=== PATIENT | female | born 1965 | race Caucasian/White ===

== ENCOUNTER 2021-02-25 22:45 | Emergency (ER) | payer MEDICARE, MEDICAID, SELFPAY ==
[2021-02-25 22:49] VITALS: BP 127/77; PULSE 110; RESP 18; TEMP 36.7; O2SAT 99
--- NOTE | 2021-02-25 22:57 | SUR.PHASEI ---
pt arrived c/o left leg pain focused in calf. pt denies injury homans sign negative
--- NOTE | 2021-02-25 23:16 | W.ED.GENAD ---
Discharge Plan Disposition Patient Disposition: HOME Condition: Stable Discharge Details Clinical Impression: Pain of left calf Primary Care Provider: Zoraida Ordoñez V ED Provider: Juan David Del Castillo Home Meds and New Rx's Prescriptions: New cyclobenzaprine 10 mg tablet 10 mg PO TID PRNQty: 20 RF: 0 Discharge Instructions Instructions: Muscle Cramp (ED) Additional Instructions: you should be called for an ultrasound on Sunday if pain continues in a week see your primary care provider if you feel more ill, have severe worsening pain or fevers return to the emergency department Medical Decision Making 56 yo female comes in with complaint of left calf pain for a week. She states it started after she had been laying down for longer than she normally does. She states she has not had any trauma or falls, no recent surgeries or travel. No dyspnea or chest pain. She arrives in no distress. She states she feels the calf is more swollen but visibly no difference. She has full range of motion of the leg atnall joints with normal sensation and pulses. She has tenderness with palpation to the mid calf and muscles feel soft. I performed a bedside u/s as we do not have radiology u/s until Sunday and do not see visible dvt on exam and when I apply pressure to the calf has good doppler flow through the popliteal vein so doubt dvt but will have her return Sunday to have formal u/s. Given lack of trauma and walking without a limp doubt fracture and do not feel xrays indicated. Normal range of motion of the ankle so doubt achilles tendon injury. HAs no findings to suggest compartment syndrome. No erythema and no warmth and no evidence to suggest cellulitis such as cobblestoning on u/s. I suspect a muscle strain and will start her on flexeril. Advised to f/u with pcp if u/s on Sunday is negative and return precautions given. Differential Diagnosis Differential Diagnosis: dvt, spasm, strain HPI General Mode of arrival: ambulatory. Date/Time Provider Initiated Documentation: 02/25/21 22:58. Limitations to Documentation: no limitations. Information obtained by: patient. History of Present Illness 56 year old F presents to the emergency department with the chief complaint of left calf pain, described as moderate, Quality is described as aching, Patient reports no radiation. Patient started experiencing this week(s) (1) and it has been constant. No relieving factors improve symptom(s), No exacerbating factors reported . Patient notes no other symptoms.. Patient did receive the following treatments prior to arrival, none Related Data Home Medications Medication Instructions Recorded Confirmed cyclobenzaprine 10 mg PO TID PRN #20 tab 02/25/21 Previous Rx's Medication Instructions Recorded cyclobenzaprine 10 mg PO TID PRN #20 tab 02/25/21 General Stated Complaint: GenMedical SIDNEY: 3 Review of Systems All systems reviewed & are unremarkable except as noted in HPI and below Constitutional Constitutional: Denies chills, Denies fever(s) and Denies weakness Cardiovascular Cardiovascular: Denies chest pain and Denies dyspnea Respiratory Respiratory: Denies cough and Denies dyspnea Gastrointestinal Gastrointestinal: Denies abdominal pain, Denies nausea and Denies vomiting Musculoskeletal Musculoskeletal: Denies joint swelling Neurologic Neurologic: Denies weakness Psychiatric Psychiatric: Denies depression [facility] Active Problem List (Updated 02/25/21 @ 23:23 by Juan David Del Castillo MD) Pain of left calf (Acute) Social History Smoking/Tobacco Use Status: Current every day Tobacco Type: cigarettes Smoking risk assessment performed?: Yes Alcohol Intake: never Substance use type: does not use Do you feel safe at home: Yes Do you feel safe in your relationship?: Yes Exam Const General: no acute distress Orientation: alert HENMT Head: normal to inspection Ears: external ears normal General nose exam: external nose normal Mouth: moist mucous membranes Eyes General: appearance normal, both eyes and all related structures Neck Neck: normal visual inspection Resp Effort & Inspection: normal respiratory effort and able to speak in complete sentences Cardio Rate: regular rate Skin General skin exam: no rashes or lesions noted Neuro General: patient alert and patient oriented x3 Extrem General: normal to inspection Psych Mental Status: mental status grossly normal Course Vital Signs Vital signs: Vital Signs Temperature 36.7 C 02/25/21 22:49 Pulse 110 H 02/25/21 22:49 Respiratory Rate 18 02/25/21 22:49 Blood Pressure 127/77 02/25/21 22:49 Pulse Oximetry 99 02/25/21 22:49 Temperature 36.7 C 02/25/21 22:49 Temperature Source Tympanic 02/25/21 22:49 Pulse 110 H 02/25/21 22:49 Respiratory Rate 18 02/25/21 22:49 Respiratory Effort 02/25/21 22:55 Blood Pressure 127/77 02/25/21 22:49 Blood Pressure Position Supine 02/25/21 22:49 Pulse Oximetry 99 02/25/21 22:49 Oxygen Delivery Method Room Air 02/25/21 22:49 Oxygen Flow Rate 0 02/25/21 22:49 Pain Level 4 02/25/21 22:49
[2021-02-25] MEDS: Cyclobenzaprine 10 MG TAB PO (23:19)
--- NOTE | 2021-02-25 23:32 | NUR.NOTE ---
Ultra sound req faxed to [facility], provider wants her to have lower extremity US on 02/28/21, or as soon as possible.Nursing Note:
== END 2021-02-25 23:29 | disposition home or self-care (01) ==
PROVIDERS: Emergency Provider Emergency Medicine; PCP Family Medicine
DX: M79.662 Pain in left lower leg (principal)
CPT/HCPCS: 99283

== ENCOUNTER 2021-03-24 01:35 | Outpatient (CLI) | payer MEDICARE, MEDICAID, SELFPAY ==
--- NOTE | 2021-03-24 | DI.US_ITS ---
Exam(s) US LOWER EXTREMITY VENOUS LT EXAM: US LOWER EXTREMITY VENOUS LT CLINICAL HISTORY: LEFT CALF PAIN, M79.662 TECHNIQUE: Grayscale, color, and doppler imaging of the deep venous system of the left lower extremi ty was performed. COMPARISON: US ABDOMEN ULTRASOUND (P) from 12/19/2011 FINDINGS: There is no evidence of intraluminal thrombus and there is normal compression and augmentation demons trated within the common femoral vein, femoral vein, and popliteal vein. In the ipsilateral calf the interrogated veins also exhibit normal compression/ augmentation properti es. The ipsilateral saphenofemoral junction is patent. IMPRESSION: 1. No evidence of DVT in the left lower extremity. DATA REPOSITORY:
== END 2021-03-24 01:55 ==
PROVIDERS: PCP Family Medicine; Visit Provider Emergency Medicine
DX: M79.662 Pain in left lower leg (principal)
CPT/HCPCS: 93971

== ENCOUNTER 2021-03-24 14:43 | Emergency (ER) | payer MEDICARE, MEDICAID, SELFPAY ==
[2021-03-24 14:50] VITALS: BP 117/67; PULSE 99; RESP 18; TEMP 35.9; O2SAT 94
--- NOTE | 2021-03-24 15:08 | ED.GENADUL_ITS ---
Discharge Plan Disposition Patient Disposition: HOME Condition: Stable Discharge Details Clinical Impression: Encounter to discuss test results Primary Care Provider: Zoraida Ordoñez V ED Provider: Rebeka Cifuentes Home Meds and New Rx's Prescriptions: Continued sumatriptan succinate 50 mg Tablet 50 mg PO PRN PRNRF: 0 Flovent HFA 44 mcg/actuation Hfa Aerosol Inhaler 2 puff INHALATION BID RF: 0 gabapentin 300 mg Capsule 1,800 mg PO BID RF: 0 omeprazole 20 mg Capsule,Delayed Release(Dr/Ec) 20 mg PO DAILY RF: 0 albuterol 90 mcg/actuation Aerosol 90 mcg INHALATION Q6H PRN PRNRF: 0 cyclobenzaprine 10 mg tablet 10 mg PO TID PRNQty: 20 RF: 0 Discharge Instructions Instructions: Leg Pain (ED) Additional Instructions: At this time the ultrasound was negative for blood clot. Please discuss lab work with your primary care provider to rule out electrolyte abnormality as a cause for the charley horses that you are experiencing. This could also be due to your previous back surgery and neuropathy. Follow up with primary care provider in 3-5 days. Return to ED sooner if any worsening or concerns. Increase oral fluids. Referrals: Zoraida Ordoñez MD [Primary Care Provider] - 5 days Medical Decision Making 56-year-old female presents to the ER for ultrasound results. Patient had a Doppler of her left lower extremity today for some neuropathy and left calf pain which has worsened over the last couple weeks. She reports she had back surgery and has been getting frequent charley horses. She is in between PCPs at this time. I did offer blood work to rule out electrolyte abnormality which patient claimed at this time. Discussed negative results with patient who verbalizes understanding. FINDINGS: There is no evidence of intraluminal thrombus and there is normal compression and augmentation demonstrated within the common femoral vein, femoral vein, and popliteal vein. In the ipsilateral calf the interrogated veins also exhibit normal compression/ augmentation properties. The ipsilateral saphenofemoral junction is patent. IMPRESSION: 1. No evidence of DVT in the left lower extremity. Discussed results with patient who verbalized understanding. HPI General Mode of arrival: ambulatory . Date/Time Provider Initiated Documentation: 03/24/21 14:49 . Limitations to Documentation: no limitations . Information obtained by: patient and old records reviewed . HPI Narrative: 56-year-old female presents to the ER for ultrasound results. Patient had a Doppler of her left lower extremity today for some neuropathy and left calf pain which has worsened over the last couple weeks. She reports she had back surgery and has been getting frequent charley horses. She is in between PCPs at this time. I did offer blood work to rule out electrolyte abnormality which patient claimed at this time. Discussed negative results with patient who verbalizes understanding. Related Data Home Medications Medication Instructions Recorded Confirmed cyclobenzaprine 10 mg PO TID PRN #20 tab 02/25/21 03/24/21 Flovent HFA 2 puff INHALATION BID 03/24/21 03/24/21 albuterol 90 mcg INHALATION Q6H PRN PRN 03/24/21 03/24/21 gabapentin 1,800 mg PO BID 03/24/21 03/24/21 omeprazole 20 mg PO DAILY 03/24/21 03/24/21 sumatriptan succinate 50 mg PO PRN PRN 03/24/21 03/24/21 Previous Rx's Medication Instructions Recorded cyclobenzaprine 10 mg PO TID PRN #20 tab 02/25/21 Allergies Allergy/AdvReac Type Severity Reaction Status Date / Time duloxetine [From Cymbalta] Allergy Skin Rash Unverified 03/24/21 14:59 Influenza Virus Vaccines Allergy Swelling/Ed Unverified 03/24/21 14:59 tashi metoprolol Allergy Itching Unverified 03/24/21 14:59 Penicillins Allergy Swelling/Ed Unverified 03/24/21 14:59 tashi phenytoin [From Dilantin] Allergy Hives Unverified 03/24/21 14:59 NSAIDS (Non-Steroidal AdvReac gi bleed Unverified 03/24/21 14:59 Anti-Inflamma General Stated Complaint: Recheck SIDNEY: 5 Review of Systems Musculoskeletal Musculoskeletal: Reports as per HPI PFSH All Active Problems (Updated 03/24/21 @ 15:11 by Rebeka Cifuentes) Pain of left calf (Acute) Encounter to discuss test results (Acute) Social History Smoking/Tobacco Use Status: Current every day Tobacco Type: cigarettes Smoking risk assessment performed?: Yes Alcohol Intake: never Substance use type: does not use Do you feel safe at home: Yes Do you feel safe in your relationship?: Yes Exam Const General: cooperative, healthy appearing and comfortable Nutritional Appearance: average body habitus Orientation: alert, awake and oriented x3 Course Vital Signs Vital signs: Vital Signs Temperature 35.9 C L 03/24/21 14:50 Pulse 99 H 03/24/21 14:50 Respiratory Rate 18 03/24/21 14:50 Blood Pressure 117/67 03/24/21 14:50 Pulse Oximetry 94 03/24/21 14:50 Temperature 35.9 C L 03/24/21 14:50 Temperature Source Temporal Artery Scan 03/24/21 14:50 Pulse 99 H 03/24/21 14:50 Respiratory Rate 18 03/24/21 14:50 Respiratory Effort Non-Labored 03/24/21 14:53 Blood Pressure 117/67 03/24/21 14:50 Blood Pressure Position Sitting 03/24/21 14:50 Pulse Oximetry 94 03/24/21 14:50 Pain Level 4 03/24/21 14:50
== END 2021-03-24 15:15 | disposition home or self-care (01) ==
PROVIDERS: Emergency Provider Registered Nurse Emergency; PCP Family Medicine
DX: M79.662 Pain in left lower leg (principal)

== ENCOUNTER 2021-07-28 01:26 | Outpatient (CLI) | payer OTHER, MEDICAID, SELFPAY ==
--- NOTE | 2021-07-28 | DI.MAMMO_ITS ---
Exam(s) MAMMO SCREENING EXAM: MAMMO SCREENING CLINICAL HISTORY: SCREENING FOR BREAST CANCER Z12.39. TECHNIQUE: Bilateral full field digital CC and MLO mammographic images were obtained with 3D tomosyn thesis and utilizing computer aided detection (CAD). COMPARISON: No prior mammograms available time of this interpretation. Apparently this patient's mo ther was diagnosed with breast cancer at age 36. FINDINGS: Fibroglandular tissue is predominately fatty (breast density pattern type A) There are no significant focal findings in the right breast. In the left breast there is a well-defined noncalcified nodule measuring 6 x 4 millimeters located 10 cm in from the nipple on the MLO view and 11 cm in from the nipple on CC view. This is possibly a b enign intramammary lymph node. There are no malignant-appearing microcalcification groups in this region nor in either breast. There is no significant architectural distortion nor skin thickening-retraction. IMPRESSION: 1. No radiographic evidence of malignancy in the right breast. 2. 6 x 4 millimeter well-defined noncalcified nodule in the upper outer quadrant of the left breast, possibly benign lymph node. Comparison to any prior outside mammograms would helpful, if they exist. Not then recommend ultrasound. BI-RADS Category 0 - Assessment Incomplete: Need additional imaging evaluation Breast Density - Category A - Almost entirely fatty Breast density Category C or D implies that the patient has dense breast tissue. Dense breast tissue can make it harder to find cancer on a mammogram. Dense breast tissue is also associated with an incr eased risk of breast cancer. This information about the result of the mammogram report was provided to the patient to raise their awareness. Use this report when you speak with the patient about their risks for breast cancer, which includes their family history. At that time, you may recommend additional screening tests (Ultrasoun d or MRI) as these tests may add significant information. A negative radiographic report should not delay biopsy if a dominant or clinically suspicious mass is present. Up to ten percent of cancers are not identified on mammography. A negative report may reinforce clinical impression. Adenosis and dense breasts may obscure an underlying neoplasm. False positive reports average 6 to 10%. Patient will receive a letter notifying them of these results.
== END 2021-07-28 01:46 ==
PROVIDERS: PCP Family Medicine; Visit Provider Nurse Practitioner Family
DX: Z12.31 Encounter for screening mammogram for malignant neoplasm of breast (principal); R92.8 Other abnormal and inconclusive findings on diagnostic imaging of breast; Z80.3 Family history of malignant neoplasm of breast
CPT/HCPCS: 77063; 77067

== ENCOUNTER → 2021-07-29 07:59 | Outpatient (BNVA) | payer OTHER, MEDICAID, SELFPAY | PROVIDERS: PCP Family Medicine; Referring Provider Nurse Practitioner Family; Visit Provider Student in an Organized Health Care Education/Training Program | DX: M70.61 Trochanteric bursitis, right hip (principal); M70.62 Trochanteric bursitis, left hip; M25.551 Pain in right hip; M54.50 Low back pain, unspecified; G89.29 Other chronic pain | CPT/HCPCS: 99214 ==

== ENCOUNTER → 2021-08-22 02:22 | Outpatient (CLI) | payer OTHER, MEDICAID, SELFPAY ==
--- NOTE | 2021-08-22 06:45 | DI.MRI_ITS ---
Exam(s) MR LOWER JOINT RT WO EXAM: MR LOWER JOINT RT WO CLINICAL HISTORY: rt hip pain,m25.551 TECHNIQUE: Multiplanar multisequence MRI of Pelvis was performed COMPARISON: MR MRI - PELVIS WO CONTRAST from 06/09/2010 MR MR LS SPINE W/WO CONTRAST from 01/25/2021 FINDINGS: Bones: There is no fracture or contusion pattern. No significant joint effusion or labral injury is present. No bone marrow edema is seen. The visualized portions of the SI joints and symphysis pubis a re well maintained. Musculotendinous structures: There is mild hyperintense signal seen in the region of the gluteus med ius tendon adjacent to the greater trochanter consistent with a strain. No associated focal fluid co llection is seen. There is a 3.3 x 3.0 cm uterine fibroid present. IMPRESSION: Right gluteus medius tendon strain. DATA REPOSITORY:
== END ==
PROVIDERS: PCP Family Medicine; Visit Provider Student in an Organized Health Care Education/Training Program
DX: S76.011A Strain of muscle, fascia and tendon of right hip, initial encounter (principal); X58.XXXA Exposure to other specified factors, initial encounter
CPT/HCPCS: 73721

== ENCOUNTER 2021-08-29 07:59 | Outpatient (REF) | payer OTHER, MEDICAID, SELFPAY ==
[2021-08-29 16:23] LABS: HCT 44.5 % (36.0-46.0); HGB 14.5 g/dL (11.2-15.7); MCH 32.2 pg (27.0-33.0); MCHC 32.6 % (32.0-36.0); MCV 99 fL (80-95); MPV 9.1 fL (8.0-11.0); Platelet Count 318 10^3/uL (130-400); RBC 4.51 10^6/uL (3.93-5.22); RDW 12.3 % (11.7-14.6); RDW-SD 44.9 fL; WBC 6.27 10^3/uL (4.4-10.8)
[2021-08-29 17:26] LABS: ALT 23 U/L (14-59); AST 13 U/L (15-37); Albumin 4.2 g/dL (3.4-5.0); Alkaline Phosphatase 79 U/L (46-116); Anion Gap 9.7 mmol/L (3-11); BUN 12 mg/dL (7-18); Bilirubin, Total 0.5 mg/dL (0.2-1.0); CO2 28.3 mmol/L (21.0-32.0); CREATININE 0.8 mg/dL (0.55-1.02); Calcium 9.1 mg/dL (8.5-10.1); Calculated LDL 204 mg/dL (<100); Chloride 104 mmol/L (98-107); Cholesterol 311 mg/dL (<200); Glucose 110 mg/dL (74-106); HDL Cholesterol 46 mg/dL (40-60); Sodium 142 mmol/L (136-145); Total Protein 7.4 g/dL (6.4-8.2); Triglyceride 308 mg/dL (<150)
== END 2021-08-29 08:00 | disposition home or self-care (01) ==
LOC: NCHCN 07:59
PROVIDERS: Nurse Practitioner Family; PCP Family Medicine; Visit Provider Internal Medicine Infectious Disease
DX: Z13.220 Encounter for screening for lipoid disorders (principal); Z00.00 Encounter for general adult medical examination without abnormal findings
CPT/HCPCS: 80053; 80061; 85027

== ENCOUNTER 2021-09-27 10:33 | Outpatient (REF) | payer OTHER, MEDICAID, SELFPAY ==
--- NOTE | 2021-09-27 09:50 | PAPFT_PTH ---
PATIENT: Aydee Johns LOC: [facility]#:[id number] AGE/SX: 56/F ROOM: RE09/27/[address]: Glenys Hernandez : 1965 BED: DIS: 09/27/2021 SPEC #: [id number] RECD: 09/27/21 17:25 STATUS: BACILIO MENDEZ #: [id number] LUISA: 09/27/21 09:[address]: Glenys Hernnadez DEPT: [facility] Cytology RECD BY: Jazlyn Paris ENTERED: 09/27/21 17:26 SP TYPE: PAPFT OTHR DR: Zoraida Ordoñez V Tissues: 1 - CX/ENDOCX FOR PAP SMEARS Procedures: PAP THIN PREP/UVM Screening HPV DNA PROBE Comments: [id number]
== END 2021-09-27 10:34 | disposition home or self-care (01) ==
LOC: NCHCN 10:33
PROVIDERS: PCP Family Medicine; Visit Provider Nurse Practitioner Family
DX: Z12.4 Encounter for screening for malignant neoplasm of cervix (principal); Z11.51 Encounter for screening for human papillomavirus (HPV)
CPT/HCPCS: 88142; 87624

== ENCOUNTER → 2021-10-07 00:40 | Outpatient (CLI) | payer OTHER, MEDICAID, SELFPAY ==
--- NOTE | 2021-10-07 13:20 | DI.CTLCSR_ITS ---
Exam(s) CT CHEST LUNG CANCER SCREEN EXAM: CT CHEST LUNG CANCER SCREEN CLINICAL HISTORY: SCREENING FOR LUNG CA, SMOKER, F17.210. TECHNIQUE: Imaging Protocol: Low Dose Technique CONTRAST MATERIAL: None COMPARISON: CT CHEST WITH CONTRAST from 12/27/2011 FINDINGS: CHEST: LUNGS: There are no ominous pulmonary nodules. There are no confluent infiltrates. No pleural effusi ons. MEDIASTINUM: There is no obvious hilar nor mediastinal adenopathy. CARDIAC: Heart size is normal. There is no pericardial effusion.Caliber of the thoracic aorta is wit hin normal limits. OTHER: Gallbladder is noted to be surgically absent OSSEOUS: No significant osseous lesions.. IMPRESSION: 1. No significant pulmonary nodules. No pleural effusions 2. No significant intrathoracic adenopathy 3. Lung RADS Cat 1 - Negative: No nodules and definitely benign nodules Lung-RADS 1.0 CATEGORIES: Category 0 - Prior chest CT exam(s) being located for comparison. Category 1 - Annual screening in 12 months. No nodules or definitely benign nodules. Category 2 - Annual screening in 12 months. Benign appearance. Nodules with low likelihood of becomin g active cancer. Category 3 - 6-month follow-up. Probably benign. Short-term follow-up suggested. Nodules with low lik elihood of becoming active cancer. Category 4A - 3-month follow-up and CT/PET if >8 mm in size. Suspicious finding. Findings which requi re additional testing. Category 4B - Findings which require additional testing and tissue sampling. Category 4X - Category 3 or 4 nodules with additional features or imaging findings that increases the suspicion of malignancy. Modifier S- Potentially clinically significant findings (non lung cancer) RADIATION DOSE DELIVERED: 92.76mGy.cm Total DLP 2.21mGy CTDIvol DATA REPOSITORY: All CT scans at this facility are submitted to the National Radiology Data Registry (NRDR) Dose Index Registry (DIR) with the [employer] ([employer]). RADIATION OPTIMIZATION: All CT scans at this facility use at least one of these dose optimization te chniques: automated exposure control; mA and/or kV adjustment per patient size (includes targeted exa ms where dose is matched to clinical indication); or iterative reconstruction.
== END ==
PROVIDERS: PCP Family Medicine; Visit Provider Nurse Practitioner Family
DX: Z12.2 Encounter for screening for malignant neoplasm of respiratory organs (principal); F17.210 Nicotine dependence, cigarettes, uncomplicated
CPT/HCPCS: 71271

== ENCOUNTER 2021-12-22 16:09 | Outpatient (CLI) | payer OTHER, MEDICAID, SELFPAY ==
[2021-12-22 12:47] LABS: Hemoglobin A1C 5.9 % (<5.7)
[2021-12-22 13:25] LABS: Ferritin 120 ng/mL (8-252); Folate 11.4 ng/mL (8.6-20.0); Glucose 103 mg/dL (74-106); TSH 0.93 uIU/mL (0.36-3.74); Vitamin B12 291 pg/mL (193-986)
[2021-12-22 13:44] LABS: Vitamin D 25 Total 19.1 ng/mL (30-100)
[2021-12-22 17:16] LABS: Iron 76 ug/dL (50-170); Total Iron Binding Capacity 291 ug/dL (250-450); Transferrin Sat 26 % (15-50)
[2021-12-23 09:46] LABS: Parathyroid Hormone,Intact 56 pg/mL (19-88)
[2021-12-26 09:46] LABS: Insulin 15.1 uIU/mL (<29.0)
[2021-12-27 20:55] LABS: Thiamine (Vitamin B1), WB 158 nmol/L (70-180)
== END 2021-12-22 16:10 | disposition home or self-care (01) ==
LOC: LBO 16:21
PROVIDERS: PCP Family Medicine; Visit Provider Surgery
DX: Z68.39 Body mass index [BMI] 39.0-39.9, adult (principal); E66.01 Morbid (severe) obesity due to excess calories
CPT/HCPCS: 36415; 82306; 82947; 82607; 82728; 82746; 83036; 83525; 83540; 83550; 83970; 84425; 84443

== ENCOUNTER 2022-03-29 10:03 | Outpatient (CLI) | payer OTHER, MEDICAID, SELFPAY ==
--- NOTE | 2022-03-29 06:00 | DI.RAD_ITS ---
Exam(s) XR PAIN CLINIC LUMBAR SP 2V EXAM: XR PAIN CLINIC LUMBAR SP 2V CLINICAL HISTORY: Dx: Lumbar Radiculopathy TECHNIQUE: 2D and realtime digital imaging was performed. Radiologist not present. CONTRAST MATERIAL: None. COMPARISON: No exams were available for comparison FINDINGS: Fluoroscopy was provided for pain management therapy. Please refer to procedure report or details. Cumulative dose: Ka,r=not given mGy IMPRESSION: RADIATION DOSE DELIVERED:
[2022-03-29 10:10] VITALS: BP 131/76; PULSE 85; RESP 20; TEMP 36.8; O2SAT 95
--- NOTE | 2022-03-29 11:02 | PDOC.PAIN ---
Date of service: 03/29/22 Time of Service: 11:05 Pain Clinic Procedure Note Procedure Note Procedure Note: CAUDAL EPIDURAL STEROID WITH CATHETER INJECTION PROCEDURE NOTE COMMENTS: She was previously evaluated in our clinic. She has has back surgery and this is why I am using the caudal approach Pre-procedure pain VAS was 8/10 Dx: Lumbosacral radiculopathy Aydee Johns has been referred to the [facility] for lumbar epidural steroid injection. Patient was greeted by the nurse who verified the patient?s name and .? Patient was then taken to the fluoroscopy suite. The patient was interviewed and the medical record was reviewed.? There were no medical, pharmacologic, radiographic, or other structural contraindications to attempting fluoroscopically guided caudal epidural steroid injection. Risks and expected side effects as well as potential benefits of the procedure were reviewed and voiced concerns addressed.? The patient consent form was signed.? Standard time-out procedure was performed. The patient was placed in the prone position on the fluoroscopy table and automated blood pressure cuff, pulse oximeter, and 3 lead EKG was applied.? The skin entry point for entering/approaching the sacral hiatus was marked.? Following thorough chlorhexadine preparation of the skin and draping and 1% lidocaine infiltration of the skin entry point and subcutaneous tissues, a 17 gauge Touhy needle was placed under fluoroscopic guidance through the sacral hiatus.? Needle tip placement and depth were aided and confirmed by fluoroscopy. There was no paresthesia or return of blood or CSF through the needle. A 19G Arrow spinal catheter was threaded to the L5 height and 1 cc's of Omnipaque 240 was injected with clear epidural spread confirmed with fluoroscopy.? Aspiration was performed with no resulting blood or clear fluid. One cc of depomedrol (80 mg/cc) was injected.? This was followed by 2 cc of 1% Lidocaine to flush the catheter.?There was not any unusual discomfort expressed.? The needle and catheter were removed together without difficulty. Vital signs were stable throughout the procedure and were as recorded in nursing records.? Follow up plans and appointments were discussed.? Post procedure instruction was given as documented in nursing records and having met discharge criteria and was discharged from the [facility]. This procedure can be completed up to 3 times per 12 months if it is helpful. Post-procedure pain VAS was 2/10. Andrea Méndez DO, MPH [facility]
[2022-03-29] MEDS: methylPREDNISolone ACETATE 80 MG/ML VIAL IJ (11:10)
[2022-03-29 11:11] VITALS: BP 127/72; PULSE 79; RESP 16; O2SAT 97
[2022-03-29] MEDS: Omnipaque 240 MG/ML 50 ML BTL IJ (11:11)
== END 2022-03-29 10:04 | disposition home or self-care (01) ==
LOC: PC 10:03
PROVIDERS: PCP Family Medicine; Visit Provider Preventive Medicine Occupational Medicine
DX: M54.17 Radiculopathy, lumbosacral region (principal); M54.50 Low back pain, unspecified
CPT/HCPCS: 62323; 72100; J1040; Q9967

== ENCOUNTER 2022-05-25 16:27 | Outpatient (REF) | payer OTHER, MEDICAID, SELFPAY ==
[2022-05-25 16:18] LABS: Anion Gap 9.9 mmol/L (3-11); BUN 12 mg/dL (7-18); CO2 27.1 mmol/L (21.0-32.0); CREATININE 0.7 mg/dL (0.55-1.02); Calcium 9.6 mg/dL (8.5-10.1); Calculated LDL 178 mg/dL (<100); Chloride 104 mmol/L (98-107); Cholesterol 256 mg/dL (<200); Estimated GFR 99.57 (mL/min/1.73m2); Glucose 106 mg/dL (74-106); HDL Cholesterol 46 mg/dL (40-60); Sodium 141 mmol/L (136-145); Triglyceride 162 mg/dL (<150)
== END 2022-05-25 16:28 | disposition home or self-care (01) ==
LOC: NCHCN 16:27
PROVIDERS: PCP Nurse Practitioner Family; Visit Provider Nurse Practitioner Family
DX: E78.5 Hyperlipidemia, unspecified (principal)
CPT/HCPCS: 80048; 80061

== ENCOUNTER 2022-08-14 15:07 | Outpatient (CLI) | payer OTHER, MEDICAID, SELFPAY ==
--- NOTE | 2022-08-14 14:45 | DI.RAD_ITS ---
Exam(s) XR WRIST LT COMPLETE EXAM: XR WRIST LT COMPLETE CLINICAL HISTORY: L wrist pain. TECHNIQUE: 2D digital imaging was performed. Three views. COMPARISON: No exams were available for comparison FINDINGS: BONES: No acute fracture is present. No bony destructive lesion is seen. JOINTS: The carpal bones are normally aligned. Minimal degenerative changes. SOFT TISSUE: Normal. IMPRESSION: Unremarkable radiographs of the left wrist. DATA REPOSITORY: RADIATION DOSE DELIVERED:
== END 2022-08-14 15:08 | disposition home or self-care (01) ==
LOC: DIORS 15:08
PROVIDERS: PCP Nurse Practitioner Family; Referring Provider Nurse Practitioner Family; Visit Provider Student in an Organized Health Care Education/Training Program
DX: M18.12 Unilateral primary osteoarthritis of first carpometacarpal joint, left hand
CPT/HCPCS: 99213; 73110

== ENCOUNTER 2022-09-18 02:19 | Outpatient (CLI) | payer OTHER, MEDICAID, SELFPAY ==
--- NOTE | 2022-09-18 | DI.MRI_ITS ---
Exam(s) MR THORACIC SPINE WO EXAM: MR THORACIC SPINE WO CLINICAL HISTORY: THORACIC BACK PAIN WORSENING, M54.9 TECHNIQUE: Multiplanar multisequence MRI of the thoracic spine was performed without intravenous con trast. COMPARISON: CT CT CHEST LUNG CANCER SCREEN from 10/07/2021 FINDINGS: OSSEOUS: There are no acute appearing thoracic vertebral fractures. There is a small benign intraosse ous hemangioma in the superior aspect of what is probably T4. There are no ominous osseous lesions in the thoracic vertebrae. THORACIC SPINAL CORD: There is no abnormal signal in the cervical spinal cord and no evidence of foca l cord atrophy nor focal cord swelling. There is no evidence of syringomyelia nor significant spinal cord dysraphism. There is no evidence of mass at the conus medullaris. The position of the conus me dullaris is at normal level. SIGNIFICANT INDIVIDUAL LEVEL FINDINGS: The upper aspect of the field of view there is a central-right disc herniation noted it C6-7 level. Can be further studied with dedicated MRI the cervical spine. There is a small posterolateral right disc protrusion at T5-6 level. Slightly indents the anterior r ight side of thecal sac but not the spinal cord. No evidence of other disc protrusions nor spinal ca nal stenosis. No significant foraminal stenosis. No abnormal collections. No significant facet art hropathy PARASPINAL TISSUES: No significant masses nor fluid collections evident. IMPRESSION: 1. There is a small posterolateral right disc protrusion at C5-6 level. 2. Larger posterolateral right disc protrusion evident at C6-7 level. Recommend follow-up MRI scan o f the cervical spine. 3. Benign intraosseous hemangioma noted in the superior aspect T4 vertebral body. No lytic osseous l esions identified. DATA REPOSITORY:
== END 2022-09-18 02:39 ==
LOC: DI 02:20
PROVIDERS: PCP Nurse Practitioner Family; Visit Provider Nurse Practitioner Family
DX: M50.123 Cervical disc disorder at C6-C7 level with radiculopathy (principal); D18.09 Hemangioma of other sites
CPT/HCPCS: 72146

== ENCOUNTER 2022-09-28 16:33 | Outpatient (REF) | payer OTHER, MEDICAID, SELFPAY ==
[2022-09-28 17:00] LABS: Abs Immature Grans 0.01 10^3/uL (0.0-0.06); Absolute Basophil Count 0.05 10^3/uL (0.0-0.2); Absolute Eosinophil Count 0.15 10^3/uL (0.0-0.7); Absolute Lymphocyte Count 2.21 10^3/uL (1.2-3.4); Absolute Monocyte Count 0.46 10^3/uL (0.1-0.8); Absolute Neutrophil Count 2.89 10^3/uL (1.2-6.7); Basophils % 0.9; Eosinophils % 2.6; HCT 41.8 % (36.0-46.0); HGB 14.1 g/dL (11.2-15.7); Immature Grans % 0.2; Lymphocytes % 38.3; MCH 30.7 pg (27.0-33.0); MCHC 33.7 % (32.0-36.0); MCV 91 fL (80-95); MPV 9.1 fL (8.0-11.0); Platelet Count 319 10^3/uL (130-400); RDW 12.5 % (11.7-14.6); RDW-SD 40.9 fL; WBC 5.77 10^3/uL (4.4-10.8)
[2022-09-28 17:37] LABS: ALT 30 U/L (14-59); AST 24 U/L (15-37); Albumin 4.1 g/dL (3.4-5.0); Alkaline Phosphatase 81 U/L (46-116); Anion Gap 11.8 mmol/L (3-11); BUN 13 mg/dL (7-18); Bilirubin, Total 0.4 mg/dL (0.2-1.0); CO2 27.2 mmol/L (21.0-32.0); CREATININE 0.9 mg/dL (0.55-1.02); Calcium 9.7 mg/dL (8.5-10.1); Chloride 105 mmol/L (98-107); Estimated GFR 73.64 (mL/min/1.73m2); Glucose 100 mg/dL (74-106); Magnesium 1.9 mg/dL (1.8-2.4); Potassium 4.2 mmol/L (3.5-5.1); Sodium 144 mmol/L (136-145); TSH (W/Ref FT4) 0.95 uIU/mL (0.36-3.74)
== END 2022-09-28 16:34 | disposition home or self-care (01) ==
LOC: NCHCN 16:33
PROVIDERS: PCP Nurse Practitioner Family; Visit Provider Nurse Practitioner Family
DX: R53.83 Other fatigue (principal); G43.909 Migraine, unspecified, not intractable, without status migrainosus; Z79.899 Other long term (current) drug therapy
CPT/HCPCS: 80053; 83735; 84443; 85025

== ENCOUNTER → 2022-10-02 14:54 | Outpatient (BNVA) | payer OTHER, MEDICAID, SELFPAY | PROVIDERS: PCP Nurse Practitioner Family; Referring Provider Nurse Practitioner Family; Visit Provider Student in an Organized Health Care Education/Training Program | DX: M65.4 Radial styloid tenosynovitis [de Quervain] (principal); M18.12 Unilateral primary osteoarthritis of first carpometacarpal joint, left hand; M19.032 Primary osteoarthritis, left wrist | CPT/HCPCS: 20550; J1030 ==

== ENCOUNTER 2022-11-08 01:00 | Outpatient (CLI) | payer OTHER, MEDICAID, SELFPAY ==
--- NOTE | 2022-11-08 | DI.MRI_ITS ---
Exam(s) MR CERVICAL SPINE WO EXAM: MR CERVICAL SPINE WO CLINICAL HISTORY: CERVICAL DISC DISORDERS AT C5-6 LEVEL, M50.822, MIGRAINE HEADACHES DAILY TECHNIQUE: Multiplanar multisequence MRI of the cervical spine was performed without intravenous con trast. COMPARISON: No exams were available for comparison FINDINGS: CERVICOMEDULLARY JUNCTION: Intact with no evidence of cerebellar tonsillar ectopia. No obvious abnor mality of the odontoid process. No evidence of Chiari 1 malformation. CERVICAL SPINAL CORD: There is no abnormal signal in the cervical spinal cord and no evidence of foca l cord atrophy nor focal cord swelling. OSSEOUS:There are no cervical fractures evident. No significant osseous lesions in the cervical vert ebrae. There is a benign intraosseous hemangioma noted in superior aspect of T4 vertebral body seen on the lower most aspect of the field of view of this study. INDIVIDUAL LEVELS: C2-3: No disc herniation nor central canal stenosis. No foraminal stenosis. Mild bilateral facet art hropathy. C3-4: Normal disc height and signal.No prominent disc herniation. There is mild annular bulging into the exiting left neural foramen. Mild left-sided foraminal stenosis. Mild bilateral facet degenera tive changes. C4-5: Normal disc height. No disc herniation. No central spinal canal stenosis. No foraminal steno sis. Mild degenerative changes in the facet joints. C5-6: Preserved disc height. No significant disc herniation. No central spinal canal stenosis. The re are moderate degenerative changes in both facet joints at this level. No significant foraminal st enosis. C6-7: There is moderate disc space narrowing at this level. There is symmetrical broad annular bulgi ng which extends mildly into the exiting neural foramina bilaterally and which slightly indents the t hecal sac but not the spinal cord. Central canal dimensions are lower normal (12 mm AP). There are mild degenerative changes in the facet joints. Minimal foraminal narrowing bilaterally at this level . C7-T1: No disc herniation nor central canal stenosis. No facet arthropathy.No foraminal stenosis. IMPRESSION: 1. At C6-7 level there is symmetrical annular bulging which indents the thecal sac but not the spinal cord and which extends mildly into the bilateral exiting neural foramina. There is no asymmetric di sc herniation at this level. There is only mild foraminal narrowing bilaterally at this level. Ther e are no prominent Luschka joint osteophytes at this level nor elsewhere in the cervical canal. 2. Mild left-sided foraminal stenosis at C3-4 level noted. 3. Mild multilevel facet arthropathy. 4. No abnormal findings in the cervical spinal cord. DATA REPOSITORY:
== END 2022-11-08 01:20 ==
LOC: DI 01:00
PROVIDERS: PCP Nurse Practitioner Family; Visit Provider Nurse Practitioner Family
DX: M99.71 Connective tissue and disc stenosis of intervertebral foramina of cervical region
CPT/HCPCS: 72141

== ENCOUNTER 2023-03-14 13:54 | Outpatient (REF) | payer OTHER, MEDICAID, SELFPAY ==
--- OUTSIDE RECORDS SUMMARY | 2023-03-14 13:58 | XMS_ITS | Continuity of Care Document ---
Author Name Unknown Organization [facility] Address [address] [place] [address] Care Team Providers Care Diver Assistant Name Role Phone Missy Hernandezh Marcelle Primary Care Physician [phone] Encounter [facility] Date(s): 07/11/22 - 07/11/[address] [address] Discharge Disposition: Home or Self Care Attending Physician: Maria Esther Mckoy APRN Admitting Physician: Maria Esther Mckoy APRN Referring Physician: Maria Esther Mckoy APRN Allergies, Adverse Reactions, Alerts Substance Reaction Severity Status codeine Nausea Unknown Active naproxen Oedema Unknown Active acetaminophen-oxycodone Unknown Acti ve penicillins Other Unknown Active traMADol Unknown Active Assessment and Plan Diagnostic Tests Pending * SS-A/Ro Abs, IgG, S KIPLING 07/11/22 * SS-B/La Abs, IgG, S KIPLING 07/11/22 Immunizations Given and Recorded Vaccine Date Status Refusal Reason hepatitis B pediatric vaccine 02/01/06 Recorded hepatitis B pediatric vaccine 03/09/05 Recorded hepatitis B adult vaccine 04/11/05 Recorded Medications Albuterol (Eqv-ProAir HFA) 90 mcg/inh inhalation aerosol 0 Refill(s) Start Date: 01/18/22 Status: Ordered cyclobenzaprine 10 mg oral tablet 10 mg = 1 tab, Oral, TID, PRN as needed for muscle spasm, # 30 tab, 0 Refill(s) Start Date: 01/18/22 Status: Ordered Flovent Diskus 100 mcg inhalation powder 2 puffs, Inhale, BID, # 60 EA, 0 Refill(s) Start Date: 01/18/22 Status: Ordered gabapentin 0 Refill(s) Start Date: 01/12/22 Status: Ordered nicotine 21 mg/24 hr transdermal film, extended release 1 patches, TD, Daily, # 7 patches, 0 Refill(s) Start Date: 01/18/22 Status: Ordered SUMAtriptan 50 mg oral tablet 50 mg = 1 tab, Oral, Daily, PRN as needed for migraine headache, may repeat dose after 2 hours up to a maximum of 200 mg in 24 hours, # 9 tab, 0 Refill(s) Start Date: 01/18/22 Status: Ordered Problem List Condition Confirmation Course Effective Dates Status Health St atus Informant Gait abnormality Confirmed Active Acute herpes simplex pharyngitis Confirmed Active Agoraphobia Confirmed Active Chest pain, atypical Confirmed Active BMI 39.0-39.9,adult Confirmed Active Cigarette smoker Confirmed Active Cluster headache Confirmed Active Depression Confirmed Active GERD (gastroesophageal reflux disease) Confirmed Active Glaucoma Confirmed Active Pain in hip Confirmed Active Hyperlipemia Confirmed Active Migraine headache Confirmed Active PATRICIA (obstructive sleep apnea) Confirmed Active Pain of left calf Confirmed Active Peripheral neuropathy Confirmed Active Sciatica, left side Confirmed Active Sleep apnea Confirmed Active Somatization disorder Confirmed Active Results Laboratory List Name Date TSH w/ Rflx to Free T4 07/11/22 Most recent to oldest [Reference Range]: 1 TSH [0.358-3.740 mcIntlUnit/mL] 1.084 mc IntlUnit/mL (07/11/22 9:59 AM) Social History Social History Type Response Tobacco Former tobacco user Tobacco Use:. quite cold turkey 21 days ago per day. Sex Female Patient Care team information Care Team Personnel Name: Glenys Hernandez APRN Position: No Access Member Role: Primary Care Physician Address: Address: [address]
--- OUTSIDE RECORDS SUMMARY | 2023-03-14 13:58 | XMS_ITS | Continuity of Care Document ---
Author Name Unknown Organization [facility] Address [address] [place] [address] Care Team Providers Care Tear Down Man Name Role Phone Glenys Hernandez Primary Care Physician [phone] [facility] Date(s): 02/16/22 - 02/16/[address] [address] Encounter Diagnosis Back pain(Discharge Diagnosis) - 02/16/22 Discharge Disposition: Home or Self Care Attending Physician: Jie Wynn MD Admitting Physician: Jie Wynn MD Allergies, Adverse Reactions, Alerts Substance Reaction Severity Status codeine Nausea Unknown Active naproxen Oedema Unknown Active acetaminophen-oxycodone Unknown Acti ve penicillins Other Unknown Active traMADol Unknown Active Assessment and Plan Future Appointments Functional Status 02/16/22 Family Member Travel History No recent t ravel Recent Travel History No recent travel Other exposure to Infectious Disease Non e Immunizations Given and Recorded Vaccine Date Status [...] 0 Refill(s) Start Date: 01/18/22 Status: Ordered predniSONE 20 mg oral tablet 60 mg = 3 tab, Oral, Daily, X 5 days, # 15 tab, 0 Refill(s), 02/21/22 21:04:00 EST, Pharmacy: [id number], 160, cm, 02/16/22 19:32:00 EST, Height/Length Dosing, 107.3, kg, 02/16/22 19:32:00 EST, Weight Dosing Start Date: 02/16/22 Stop Date: 02/21/22 Status: Ordered SUMAtriptan 50 mg oral tablet [...] apnea Confirmed Active Somatization disorder Confirmed Active Vital Signs Most recent to oldest [Reference Range]: 1 Temperature Temporal Artery [36-38 Deg C ] 36.5 Deg C (02/16/22 7:19 PM) Peripheral Pulse Rate [60-100 bpm] 83 bp m (02/16/22 7:19 PM) Respiratory Rate [12-24 br/min] 20 br/mi n (02/16/22 7:19 PM) Blood Pressure [90-140/60-90 mmHg] 141/6 2mmHg *HI* (02/16/22 7:19 PM) Weight 107.30 kg (02/16/22 7:19 PM) Weight Dosing 107.30 kg (02/16/22 7:32 PM) Height 160.000 cm (02/16/22 7:19 PM) Height/Length Dosing 160.000 cm (02/16/22 7:32 PM) Body Mass Index 42.000 kg/m2 (02/16/22 7:19 PM) Social History Social History Type Response Tobacco Former tobacco user Tobacco Use:. quite cold turkey 21 days ago per day. Sex Female Hospital Discharge Instructions Patient Education 02/16/2022 20:06:37 Acute Back Pain, Adult Acute Back Pain, Adult Acute back pain is sudden and usually short-lived. It is often caused by an injury to the muscles and tissues in the back. The injury may result from: ??? A muscle, tendon, or ligament getting overstretched or torn. Ligaments are tissues that connectbones to each other. Lifting something improperly can cause a back strain. ??? Wear and tear (degeneration) of the spinal disks. Spinal disks are circular tissue that providecushioning between the bones of the spine (vertebrae). ??? Twisting motions, such as while playing sports or doing yard work. ??? A hit to the back. ??? Arthritis. You may have a physical exam, lab tests, and imaging tests to find the cause of your pain. Acute back pain usually goes away with rest and home care. Follow these instructions at home: Managing pain, stiffness, and swelling ??? Take wfxl-rwq-qbtieno and prescription medicines only as told by your health care provider. Treatment may include medicines for pain and inflammation that are taken by mouth or applied to the skin, or muscle relaxants. ??? Your health care provider may recommend applying ice during the first 24???48 hours after your pain starts. To do this: ??? Put ice in a plastic bag. ??? Place a towel between your skin and the bag. ??? Leave the ice on for 20 minutes, 2???3 times a day. ??? Remove the ice if your skin turns bright red. This is very important. If you cannot feel pain, heat, or cold, you have a greater risk of damage to the area. ??? If directed, apply heat to the affected area as often as told by your health care provider. Usethe heat source that your health care provider recommends, such as a moist heat pack or a heating pad. ??? Place a towel between your skin and the heat source. ??? Leave the heat on for 20???30 minutes. ??? Remove the heat if your skin turns bright red. This is especially important if you are unable to feel pain, heat, or cold. You have a greater risk of getting burned. Activity ??? Do not stay in bed. Staying in bed for more than 1???2 days can delay your recovery. ??? Sit up and stand up straight. Avoid leaning forward when you sit or hunching over when you stand. ??? If you work at a desk, sit close to it so you do not need to lean over. Keep your chin tucked in. Keep your neck drawn back, and keep your elbows bent at a 90-degree angle (right angle). ??? Sit high and close to the steering wheel when you drive. Add lower back (lumbar) support to your car seat, if needed. ??? Take short walks on even surfaces as soon as you are able. Try to increase the length of time you walk each day. ??? Do not sit, drive, or inter com servicer one place for more than 30 minutes at a time. Sitting or standing for long periods of time can put stress on your back. ??? Do not drive or use heavy machinery while taking prescription pain medicine. ??? Use proper lifting techniques. When you bend and lift, use positions that put less stress on your back: ??? Bend your knees. ??? Keep the load close to your body. ??? Avoid twisting. ??? Exercise regularly as told by your health care provider. Exercising helps your back heal fasterand helps prevent back injuries by keeping muscles strong and flexible. ??? Work with a physical therapist to make a safe exercise program, as recommended by your health care provider. Do any exercises as told by your physical therapist. Lifestyle ??? Maintain a healthy weight. Extra weight puts stress on your back and makes it difficult to havegood posture. ??? Avoid activities or situations that make you feel anxious or stressed. Stress and anxiety increase muscle tension and can make back pain worse. Learn ways to manage anxiety and stress, such as through exercise. General instructions ??? Sleep on a firm mattress in a comfortable position. Try lying on your side with your knees slightly bent. If you lie on your back, put a pillow under your knees. ??? Keep your head and neck in a straight line with your spine (neutral position) when using electronic equipment like smartphones or pads. To do this: ??? Raise your smartphone or pad to look at it instead of bending your head or neck to look down. ??? Put the smartphone or pad at the level of your face while looking at the screen. ??? Follow your treatment plan as told by your health care provider. This may include: ??? Cognitive or behavioral therapy. ??? Acupuncture or massage therapy. ??? Meditation or yoga. Contact a health care provider if: ??? You have pain that is not relieved with rest or medicine. ??? You have increasing pain going down into your legs or buttocks. ??? Your pain does not improve after 2 weeks. ??? You have pain at night. ??? You lose weight without trying. ??? You have a fever or chills. ??? You develop nausea or vomiting. ??? You develop abdominal pain. Get help right away if: ??? You develop new bowel or bladder control problems. ??? You have unusual weakness or numbness in your arms or legs. ??? You feel faint. These symptoms may represent a serious problem that is an emergency. Do not wait to see if the symptoms will go away. Get medical help right away. Call your local emergency services (911 in the [place] Do not drive yourself to the hospital. Summary ??? Acute back pain is sudden and usually short-lived. ??? Use proper lifting techniques. When you bend and lift, use positions that put less stress on your back. ??? Take qqeq-xnj-cehhohe and prescription medicines only as told by your health care provider, andapply heat or ice as told. This information is not intended to replace advice given to you by your health care provider. Make sure you discuss any questions you have with your health care provider. Document Revised: 06/17/2021 Document Reviewed: 06/17/2021 Elsevier Patient Education ?? 2021 [employer] 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 The following includes patient education materials and information regarding your injury/illness. Diagnosis from Today's Visit Back pain Discharge Vitals Temperature??(Temporal Artery) 97.7 ??F (36.5 ??C) Heart Rate??(Peripheral) 83 Respiratory Rate?? 20 Blood Pressure?? 141/62?? Height?? 62.99 in (160.000 cm) Weight?? 236.60 lb (107.30 kg) BMI?? 42.000 Allergies acetaminophen-oxycodone codeine??(Nausea) naproxen??(Oedema) penicillins??(Other) traMADol What to Do Next Instructions from Your Care Team Take Flexeril (cyclobenzaprine)??10 mg 3 times a day as needed.?? Try heat or ice to the area to help with discomfort.?? Use your crutches??when you are up and about.?? Call to schedule a follow-up with your primary care provider.?? Maximize ibuprofen and Tylenol??to help with pain and discomfort.?? You may take up to 800 mg of Motrin, Advil??(ibuprofen)??every 8 hours as needed for pain or discomfort??and or??up to??1000 mg??of Tylenol??(acetaminophen) every 6 hours as needed??for pain or discomfort for maximum 4000 mg in 24 hours or you may permanently hurt your liver. You Need to Schedule the Following Appointments Follow Up with??Follow up with primary care provider When:??Within 1 to 2 weeks Upcoming Scheduled Appointments Sunday 9:30 AM EST ?? You were treated today on an emergency basis; it may be de leon to contact your primary care provider to notify them of your visit today. You may have been referred to your regular doctor or a specialist, please follow up as instructed. If your condition worsens or you can't get in to see the doctor, contact the Emergency Department. Medications What How Much When Why Instructions Next Dose New predniSONE (predniSONE 20 mg oral tablet) 3 tab Oral (given by mouth) Every day Back pain Duration: 5 Days Pickup at [facility] Unchanged albuterol (Albuterol (Eqv-ProAir HFA) 90 mcg/ inh inhalation aerosol) Unchanged cyclobenzaprine (cyclobenzaprine 10 mg oral tablet) 1 tab Oral (given by mouth) 3 times a day as needed for as needed for muscle spasm Unchanged fluticasone (Flovent Diskus 100 mcg inhalation powder) 2 Puffs Inhale (breathe in) 2 times a day Unchanged gabapentin Unchanged nicotine (nicotine 21 mg/ 24 hr transdermal film, extended release) 1 patch(es) Transdermal (apply on the skin) Every day Unchanged SUMAtriptan (SUMAtriptan 50 mg oral tablet) 1 tab Oral (given by mouth) Every day as needed for as needed for migraine headache may repeat dose after 2 hours up to a maximum of 200 mg in 24 hours ?? Pharmacy Information [id number]: [address], [place] [id number] [phone] Education Materials Acute Back Pain, Adult Acute back pain is sudden and usually short-lived. It is often caused by an injury to the muscles and tissues in the back. The injury may result from: ? A muscle, tendon, or ligament getting overstretched or torn. Ligaments are tissues that connect bones to each other. Lifting something improperly can cause a back strain. ? Wear and tear (degeneration) of the spinal disks. Spinal disks are circular tissue that provide cushioning between the bones of the spine (vertebrae). ? Twisting motions, such as while playing sports or doing yard work. ? A hit to the back. ? Arthritis. You may have a physical exam, lab tests, and imaging tests to find the cause of your pain. Acute back pain usually goes away with rest and home care. Follow these instructions at home: Managing pain, stiffness, and swelling ? Take yzhs-bbs-tkshigg and prescription medicines only as told by your health care provider. Treatment may include medicines for pain and inflammation that are taken by mouth or applied to the skin, or muscle relaxants. ? Your health care provider may recommend applying ice during the first 24???48 hours after your painstarts. To do this: ? Put ice in a plastic bag. ? Place a towel between your skin and the bag. ? Leave the ice on for 20 minutes, 2???3 times a day. ? Remove the ice if your skin turns bright red. This is very important. If you cannot feel pain, heat, or cold, you have a greater risk of damage to the area. ? If directed, apply heat to the affected area as often as told by your health care provider. Use theheat source that your health care provider recommends, such as a moist heat pack or a heating pad. ? Place a towel between your skin and the heat source. ? Leave the heat on for 20???30 minutes. ? Remove the heat if your skin turns bright red. This is especially important if you are unable to feel pain, heat, or cold. You have a greater risk of getting burned. Activity ? Do not stay in bed. Staying in bed for more than 1???2 days can delay your recovery. ? Sit up and stand up straight. Avoid leaning forward when you sit or hunching over when you stand. ? If you work at a desk, sit close to it so you do not need to lean over. Keep your chin tucked in. Keep your neck drawn back, and keep your elbows bent at a 90-degree angle (right angle). ? Sit high and close to the steering wheel when you drive. Add lower back (lumbar) support to your car seat, if needed. ? Take short walks on even surfaces as soon as you are able. Try to increase the length of time you walk each day. ? Do not sit, drive, or inter com servicer one place for more than 30 minutes at a time. Sitting or standing for long periods of time can put stress on your back. ? Do not drive or use heavy machinery while taking prescription pain medicine. ? Use proper lifting techniques. When you bend and lift, use positions that put less stress on your back: ? Bend your knees. ? Keep the load close to your body. ? Avoid twisting. ? Exercise regularly as told by your health care provider. Exercising helps your back heal faster andhelps prevent back injuries by keeping muscles strong and flexible. ? Work with a physical therapist to make a safe exercise program, as recommended by your health care provider. Do any exercises as told by your physical therapist. Lifestyle ? Maintain a healthy weight. Extra weight puts stress on your back and makes it difficult to have good posture. ? Avoid activities or situations that make you feel anxious or stressed. Stress and anxiety increase muscle tension and can make back pain worse. Learn ways to manage anxiety and stress, such as through exercise. General instructions ? Sleep on a firm mattress in a comfortable position. Try lying on your side with your knees slightlybent. If you lie on your back, put a pillow under your knees. ? Keep your head and neck in a straight line with your spine (neutral position) when using electronicequipment like smartphones or pads. To do this: ? Raise your smartphone or pad to look at it instead of bending your head or neck to look down. ? Put the smartphone or pad at the level of your face while looking at the screen. ? Follow your treatment plan as told by your health care provider. This may include: ? Cognitive or behavioral therapy. ? Acupuncture or massage therapy. ? Meditation or yoga. Contact a health care provider if: ? You have pain that is not relieved with rest or medicine. ? You have increasing pain going down into your legs or buttocks. ? Your pain does not improve after 2 weeks. ? You have pain at night. ? You lose weight without trying. ? You have a fever or chills. ? You develop nausea or vomiting. ? You develop abdominal pain. Get help right away if: ? You develop new bowel or bladder control problems. ? You have unusual weakness or numbness in your arms or legs. ? You feel faint. These symptoms may represent a serious problem that is an emergency. Do not wait to see if the symptoms will go away. Get medical help right away. Call your local emergency services (911 in the [place] Do not drive yourself to the hospital. Summary ? Acute back pain is sudden and usually short-lived. ? Use proper lifting techniques. When you bend and lift, use positions that put less stress on your back. ? Take trke-jcg-hqmyqyg and prescription medicines only as told by your health care provider, and apply heat or ice as told. This information is not intended to replace advice given to you by your health care provider. Make sure you discuss any questions you have with your health care provider. Document Revised: 06/17/2021 Document Reviewed: 06/17/2021 Elsevier Patient Education ?? 2021 [employer] Tests Performed Medications and Immunizations Administered Given predniSONE, 60 mg, Oral Patient/Grease Man Signature Patient Name:SIRIA NIKITA Yonis I have received this information and my questions have been answered. Patient/Grease Man Name: Patient/Grease Man Signature: Relationship to Patient: Witness Name/Signature: Date: Electronically Signed on: 02/16/2022 21:08 ESTSigned by: Emergency department Note * Arielle Jeffers: PERFORM Event Display: ED Notes Authored Date: [id number] Patient Care team information Care Team Personnel Name: Glenys Hernandez APRN Position: No Access Member Role: Primary Care Physician Address: Address: [address] Name: Paul Diaz RN Position: Nurse Member Role: Registered Nurse Name: Jie Wynn MD Position: Physician Member Role: ED Physician Address: Address: [address] [place] [address]
--- OUTSIDE RECORDS SUMMARY | 2023-03-14 13:58 | XMS_ITS | Continuity of Care Document ---
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) - Discharge Disposition: Home Attending Physician: Jie Wynn MD Admitting Physician: Jie Wynn MD Allergies, Adverse Reactions, Alerts Substance Reaction Severity Status codeine Nausea Unknown Active naproxen Oedema Unknown Active acetaminophen-oxycodone Unknown Acti ve penicillins Other Unknown Active traMADol Unknown Active Assessment and Plan Future Appointments Functional Status 01/12/22 Family Member Travel History No recent t ravel Recent Travel History No recent travel Other exposure to Infectious Disease Non e Immunizations Given and Recorded Vaccine Date Status Refusal Reason hepatitis B pediatric vaccine 02/01/06 Recorded hepatitis B pediatric vaccine 03/09/05 Recorded hepatitis B adult vaccine 04/11/05 Recorded Medications gabapentin 0 Refill(s) Start Date: 01/12/22 Status: Ordered Vital Signs Most recent to oldest [Reference Range]: 1 Temperature Temporal Artery [36-38 Deg C ] 36.0 Deg C (01/12/22 8:39 AM) Peripheral Pulse Rate [60-100 bpm] 81 bp m (01/12/22 8:39 AM) Respiratory Rate [12-24 br/min] 18 br/mi n (01/12/22 8:39 AM) Blood Pressure [90-140/60-90 mmHg] 131/6 8mmHg (01/12/22 8:39 AM) Weight Dosing 104.00 kg (01/12/22 8:43 AM) Weight Estimated 104.00 kg (01/12/22 8:39 AM) Height/Length Dosing 160.000 cm (01/12/22 8:43 AM) Height/Length Estimated 160.000 cm (01/12/22 8:39 AM) Social History Social History Type Response Tobacco Current everyday tob acco user Tobacco Use:. a couple a day, trying to quit, wearing patch per day. Sex Female Hospital Discharge Instructions Patient Education 01/12/2022 08:23:17 Chemical Inhalation Injury, Adult Chemical Inhalation Injury, Adult A chemical inhalation injury happens when a person breathes in (inhales) fumes or particles from chemicals that damage the throat, airways, or lungs (respiratory tract). Chemical inhalation injuries can range from mild irritation of the upper airway to a serious injurydeep in the lungs. This can affect your breathing ability. The level of injury depends on what chemical was involved, how strong it is, and how long you were exposed to it. What are the causes? Chemical inhalation injuries are caused by inhaling fumes or particles from chemicals. These injuries most often occur: ??? During fires, when materials that are burned release chemicals into the environment. ??? During work accidents, when large amounts of toxic chemicals are spilled at factories or industrial sites. Chemicals that may be harmful are also found in many common household oven dauber and other products, such as: ??? Aerosol sprays. ??? Oven oven dauber. ??? Air fresheners. ??? Furniture solomon islander. ??? Fertilizers, pesticides, and insecticides. ??? Metal oven dauber or solvents used for metal etching. Mixing ammonia (or a product that contains ammonia) with bleach (or a product that contains bleach)is another common cause of household chemical inhalation injuries. This mixture produces a harmful gas called chloramine that can irritate the lungs. Mixing other cleaning products may also sometimesproduce harmful chemicals. What increases the risk? The following factors may make you more likely to have this type of injury: ??? Being exposed to burning materials or smoke. ??? Working with chemicals, solvents, or oven dauber. ??? Working in a factory or an agricultural job. ??? Working in poorly ventilated areas with poor air flow. ??? Not wearing proper protective equipment, such as goggles, masks, or gloves. What are the signs or symptoms? Symptoms of this injury may include: ??? Burning or irritation of the eyes, nose, throat, windpipe (trachea), and exposed areas of skin. ??? Coughing. ??? Breathing problems, such as: ??? Shortness of breath. ??? Making high-pitched sounds when you breathe, such as whistling sounds when you breathe out (wheezing) or loud sounds when you breathe in (stridor). ??? Trouble breathing. This is caused by airway swelling. ??? Chest pain. ??? Coughing up blood. ??? Headache. ??? Dizziness. ??? Nausea or vomiting. ??? Abdominal pain. ??? Weakness or tiredness (fatigue). ??? Confusion. ??? Fainting. Depending on the type of chemical exposure, you may have symptoms right away or up to 12 hours later. How is this diagnosed? This injury is diagnosed based on your symptoms, your medical history, and a physical exam. You mayalso have tests, including: ??? ECG (electrocardiogram) and cardiac monitoring to look for heart injuries. ??? Tests to measure the level of oxygen in your blood (pulse oximetry). ??? Imaging studies, such as: ??? Chest X-rays. These check for fluid buildup or inflammation of the small airways of the lungs (bronchioles). ??? Chest CT scan. This test can identify injuries that are not visible by X-ray. ??? Blood tests to check for damage from certain chemicals, such as carbon monoxide. ??? Procedures used to look directly into your mouth and throat (laryngoscopy) or into the lower part of the airways and lungs (bronchoscopy). How is this treated? Treatment for this condition may include: ??? Using water or saline to flush the chemical out of all areas exposed to it, such as the skin, eyes, nose, or mouth. ??? Supplemental oxygen therapy. This is the main treatment for this injury. You may be given extraoxygen through a mask or a nose tube. Severe injuries may require use of a machine (ventilator) to help you breathe. ??? Medicine to open the airways and reduce inflammation (bronchodilators or corticosteroids). ??? IV fluids. ??? Antibiotic medicines to prevent or treat lung infection caused by bacteria. ??? Specific medicines (antidotes) that block or reverse the effect of certain toxic chemicals, such as cyanide. Depending on the injury, you may need to stay in the hospital to be monitored closely. Follow these instructions at home: ??? Take xexy-ldb-iklvpkx and prescription medicines only as told by your health care provider. ??? If you were prescribed an antibiotic medicine, take it as told by your health care provider. Donot stop taking the antibiotic even if you start to feel better. ??? Return to your normal activities as told by your health care provider. Ask your health care provider what activities are safe for you. ??? Do not use any products that contain nicotine or tobacco. These products include cigarettes, chewing tobacco, and vaping devices, such as e-cigarettes. If you need help quitting, ask your health care provider. ??? Keep all follow-up visits. This is important. How is this prevented? To prevent this type of injury: ??? Do not mix bleach or any bleach-containing product with any cleaner assistant that contains ammonia. ??? Do not put potentially harmful chemicals in spray bottles. ??? Read all labels and follow instructions for using cleaning products. ??? Use cleaning products only in well-ventilated areas. ??? Follow work safety practices closely if your job puts you at risk for chemical inhalation. Be very careful to limit your exposure to gases and chemicals. ??? Wear proper eye, face, and hand protection when around chemicals. ??? If you smell a strong odor or feel sick, remove yourself from the area right away and get into a well-ventilated area. Contact a health care provider if: ??? You have a fever. ??? Your symptoms do not improve or they get worse. ??? You have a headache. Get help right away if: ??? You have trouble breathing. ??? You have chest or abdominal pain. ??? You are coughing up thick sputum or blood. ??? You have nausea or vomiting. ??? Your voice is hoarse, or you have pain when swallowing, breathing, or talking. ??? You become confused. ??? You faint. These symptoms may represent a serious problem that is an emergency. Do not wait to see if the symptoms will go away. Get medical help right away. Call your local emergency services (911 in the [place] Do not drive yourself to the hospital. Summary ??? A chemical inhalation injury happens when a person breathes in (inhales) fumes or particles from chemicals that damage the throat, airways, or lungs (respiratory tract). ??? Chemical inhalation injuries occur most often during fires or work accidents. Chemicals that may be harmful are also found in many common household oven dauber and other products. ??? Supplemental oxygen therapy is the main treatment for this injury. You may be given extra oxygen through a mask or a nose tube. ??? If your job puts you at risk for chemical inhalation, follow work safety practices closely. Be very careful to limit your exposure to gases and chemicals. This information is not intended to replace advice given to you by your health care provider. Make sure you discuss any questions you have with your health care provider. Document Revised: 01/11/2021 Document Reviewed: 01/11/2021 [employer] Patient Education ?? 2021 [employer]. 01/12/2022 08:23:10 Chemical Burn, Adult Chemical Burn, Adult A chemical burn is an injury to the skin. The structures below the skin can also be injured, such as the lungs and other internal organs. This type of burn is caused by coming into contact with a chemical that can damage and kill tissue (caustic chemical). Common caustic chemicals are found in fertilizers, household oven dauber, and drain oven dauber. A chemical burn can be more serious than other arana. Some chemicals continue to cause damage even after they have been removed from the skin. What are the causes? This condition is caused by swallowing, breathing in, touching, or being touched by a caustic chemical. What increases the risk? You are more likely to get a chemical burn if you work in a place where chemicals are made, stored,or used. These include working in manufacturing, medicine, farming, and mining. What are the signs or symptoms? Symptoms of this condition depend on the type of chemical that caused the burn and the way the chemical came in contact with the body. Symptoms may continue to get worse even after the chemical has been removed. ??? Common symptoms include: ??? Color changes of the skin. Your skin may lose color (jose luis), turn red, or turn darker. ??? Blistered skin. ??? Rash. ??? Dry, flaky skin. ??? A type of acne (chloracne) that results from exposure to certain chemicals. ??? Burning or aching pain. ??? Itching. ??? If the chemical is breathed in, or inhaled, symptoms include eye or nose irritation, sore throat, or coughing. ??? If the chemical is swallowed (ingested) or absorbed into the body through a wound, it can damage: ??? Organs, including the liver, kidneys, and bladder. ??? The immune system, the nervous system, or the nose, throat, windpipe, and lungs (respiratory system). Later symptoms may include scarring, shrinking of the skin, and permanent change in skin color. How is this diagnosed? This condition is diagnosed with a medical history and physical exam. Your health care provider will check how deep the burn is and how much of your skin surface it covers. You may be diagnosed with a: ??? First-degree burn, if the burn only affects the outer layer of skin (epidermis). ??? Second-degree burn, if the burn extends into the second layer of skin (dermis). ??? Third-degree burn, if the burn extends through the dermis and into deeper tissue (hypodermis). Your blood pressure, heart rate, and urine output may also be measured. If the injury is severe, you may also have: ??? Blood tests. ??? A test to check the heart's electrical activity (electrocardiogram, or ECG). ??? A chest X-ray. How is this treated? This condition may be treated by removing the caustic chemical. The skin will be washed or brushed to remove the chemical. Clothes will be removed if they have the chemical on them. After the chemical is removed, you may receive: ??? Oxygen to help you breathe. ??? Antibiotic medicine to fight infection. ??? Pain medicine. ??? Fluids through an IV. ??? Bandages (dressings). ??? A procedure to remove tissue (debridement). ??? A tetanus shot. Long-term burn care may include: ??? Breathing support. You may be given oxygen using a machine (ventilator). ??? Frequent wound dressing changes. ??? Antibiotics. ??? Surgery, including debridement, skin graft, or repairing of damaged tissue or structures. ??? Physical therapy. Follow these instructions at home: Medicines ??? Take and apply uovg-cly-ewkrxte and prescription medicines only as told by your health care provider. ??? If you were prescribed an antibiotic medicine, take or apply it as told by your health care provider. Do not stop using the antibiotic even if you start to feel better. Burn care ??? Follow instructions from your health care provider about how to take care of your burn, including: ??? How to clean your burn. ??? When and how you should remove or change your dressing. ??? Check your burn every day for signs of infection. Check for: ??? More redness, swelling, or pain. ??? Fluid or blood. ??? Warmth. ??? Pus or a bad smell. ??? Keep the dressing dry until your health care provider says it can be removed. ??? Do not take baths, swim, use a hot tub, or do anything that would put your burn underwater until your health care provider approves. Ask your health care provider if you may take showers. You mayonly be allowed to take sponge baths. ??? Do not put ice on your burn. This can cause more damage. Activity ??? Rest as told by your health care provider. Do not exercise until your health care provider approves. ??? Do vfgkp-ct-odpnvw movements, if told by your health care provider. General instructions ??? Raise (elevate) the injured area above the level of your heart while you are sitting or lying down. ??? Do not scratch or pick at the burn. ??? Do not break any blisters you may have. Do not peel any skin. ??? Protect your burn from the sun. ??? Drink enough fluid to keep your urine pale yellow. ??? Do not put butter, oil, or other home remedies on your burn. This can lead to an infection. ??? Do not use any products that contain nicotine or tobacco, such as cigarettes, e-cigarettes, andchewing tobacco. These can delay healing. If you need help quitting, ask your health care provider. ??? Keep all follow-up visits as told by your health care provider. This is important. How is this prevented? Avoid exposure to caustic chemicals. ??? Wear protective gloves and equipment when you handle caustic chemicals. ??? Make sure all caustic chemicals are labeled. ??? Talk to your employer about the caustic chemicals that they use. Ask whether those can be replaced with chemicals that are less harmful. ??? Make sure there is proper airflow (ventilation) in any area with caustic chemicals. ??? Keep your skin clean and moisturized. Dry skin is more likely to be damaged by chemicals. Contact a health care provider if: ??? You received a tetanus shot and you have any of the following symptoms at the injection site: ??? Swelling. ??? Severe pain. ??? Redness. ??? Bleeding. ??? Your symptoms do not improve with treatment. ??? Your pain is not controlled with medicine. ??? You have more redness, swelling, or pain around your burn. ??? Your burn feels warm to the touch. Get help right away if you: ??? Develop any signs of infection such as: ??? Red streaks near the burn. ??? Fluid, blood, or pus coming from the burn. ??? A bad smell coming from your burn. ??? Develop severe swelling. ??? Develop severe pain. ??? Have a fever. ??? Have numbness or tingling in the burned area or farther down your legs or arms. ??? Have trouble breathing, or you develop coughing or noisy breathing (wheezing). ??? Have chest pain. Summary ??? A chemical burn is an injury to the skin that is caused by a caustic chemical. Some chemicals continue to cause damage even after they have been removed from the skin. ??? This condition is more likely to develop in people who are exposed to chemicals at work. ??? Avoid exposure to caustic chemicals that can cause arana. Wear protective gloves and equipment when you handle dangerous chemicals. This information is not intended to replace advice given to you by your health care provider. Make sure you discuss any questions you have with your health care provider. Document Revised: 09/09/2019 Document Reviewed: 09/09/2019 [employer] Patient Education ?? 2021 [employer] Follow Up Care 01/12/2022 08:39:47 With:Follow up with primary care provider Address: When:1 to 2 weeks Comments:as needed Patient Care team information Personnel Name: Glenys Hernandez APRN Address: Address: [id number] [place] [address]
[2023-03-14 17:05] LABS: Hemoglobin A1C 5.8 % (<5.7)
[2023-03-14 17:25] LABS: Vitamin D 25 Total 21.2 ng/mL (30-100)
[2023-03-14 17:27] LABS: ALT 22 U/L (14-59); AST 21 U/L (15-37); Albumin 4.1 g/dL (3.4-5.0); Alkaline Phosphatase 72 U/L (46-116); Anion Gap 10.9 mmol/L (3-11); BUN 21 mg/dL (7-18); Bilirubin, Total 0.3 mg/dL (0.2-1.0); CO2 27.1 mmol/L (21.0-32.0); CREATININE 0.7 mg/dL (0.55-1.02); Calcium 9.9 mg/dL (8.5-10.1); Calculated LDL 197 mg/dL (<100); Chloride 105 mmol/L (98-107); Cholesterol 321 mg/dL (<200); Estimated GFR 98.95 (mL/min/1.73m2); Folate > 20.0 ng/mL (8.6-20.0); Glucose 103 mg/dL (74-106); HDL Cholesterol 48 mg/dL (40-60); Potassium 4.4 mmol/L (3.5-5.1); Sodium 143 mmol/L (136-145); Total Protein 8.1 g/dL (6.4-8.2); Triglyceride 382 mg/dL (<150); Vitamin B12 510 pg/mL (193-986)
== END 2023-03-14 13:55 | disposition home or self-care (01) ==
LOC: NCHCN 13:54
PROVIDERS: PCP Nurse Practitioner Family; Visit Provider Nurse Practitioner Family
DX: E78.5 Hyperlipidemia, unspecified (principal); E55.9 Vitamin D deficiency, unspecified; R63.1 Polydipsia; G60.1 Refsum's disease
CPT/HCPCS: 80053; 80061; 82306; 82607; 82746; 83036

== ENCOUNTER → 2023-05-17 00:54 | Outpatient (CLI) | payer OTHER, MEDICAID, SELFPAY ==
--- NOTE | 2023-05-17 | DI.MRI_ITS ---
Exam(s) MR LUMBAR SPINE WO EXAM: MR LUMBAR SPINE WO CLINICAL HISTORY: F/U ABNL MRI,LOW BACK PAIN,M54.51. TECHNIQUE: Multiplanar multisequence MRI of the Lumbar spine was performed. COMPARISON: MR MR LS SPINE W/WO CONTRAST from 01/25/2021 CR XR LS SPINE 2-3 VIEWS from 02/16/2022 CR XR WRIST LT COMPLETE from 08/14/2022 FINDINGS: Exam somewhat limited by motion. Bones: The last intervertebral disc space is designated the L5/S1 level for the numbering purpose of this ex amination. The vertebral body heights are well maintained. Alignment: Unremarkable. The marrow signal characteristics are unremarkable. Cord: The conus tip ends at the T12 level. It is of normal size and signal intensity. T12-L1: No focal disc herniation is present. No central spinal canal stenosis.No neural foraminal st enosis. L1-2: Minimal disc bulging. No focal disc herniation is present. No central spinal canal stenosis .No neural foraminal stenosis. L2-3: No focal disc herniation is present. No central spinal canal stenosis.No neural foraminal rikki nosis. L3-4: Mild disc bulging. Facet degenerative changes.No focal disc herniation is present. No central spinal canal stenosis.No neural foraminal stenosis. L4-5:Ewaw-yp-gmfdljgn loss of disc height and small endplate osteophytes. Facet degenerative changes . No focal disc herniation is present. No central spinal canal stenosis.No neural foraminal stenosi s. L5-S1: No focal disc herniation is present. Moderate loss of disc height. Small endplate osteophytes . Slight disc bulging. Bilateral L5 pars defects. Slight L5-S1 spondylolisthesis. Facet degenerat sim changes bilaterally. Left laminectomy. Mild narrowing of the transverse dimension of the canal. Severe left and mild right neural foraminal narrowing. The visualized SI joints and sacrum are unremarkable. Soft tissues: The paraspinal soft tissues are unremarkable. IMPRESSION: Degenerative and postsurgical changes at L5-S1. Severe left neural foraminal narrowing at this level . DATA REPOSITORY:
== END ==
PROVIDERS: PCP Nurse Practitioner Family; Visit Provider Nurse Practitioner Family
DX: M43.17 Spondylolisthesis, lumbosacral region (principal); Z98.890 Other specified postprocedural states
CPT/HCPCS: 72148

== ENCOUNTER → 2023-06-15 01:00 | Outpatient (CLI) | payer OTHER, MEDICAID, SELFPAY ==
--- NOTE | 2023-06-15 15:15 | DI.RAD_ITS ---
Exam(s) XR LUMBAR SPINE COMPLETE EXAM: XR LUMBAR SPINE COMPLETE CLINICAL HISTORY: LUMBAR SPINE PAIN, M54.51. TECHNIQUE: 2D digital imaging was performed of the lumbar spine. Seven images were obtained. AP, l ateral, flexion, extension, right oblique, left oblique and L5-S1 spot views were obtained. COMPARISON: CT ABD PELVIS WITH CONTRAST from 09/03/2008 CR LUMBAR SPINE COMPLETE from 05/19/2011 FINDINGS: BONES: No fracture or destructive lesion. Endplate osteophytes are seen at several levels of the lumb ar spine particularly at T12-L1 through L3-L4. There are degenerative changes of the facets present. DISKS: There is mild disc space narrowing seen at T12-L1, L1-L2 and L5-S1. ALIGNMENT: There is 6 mm anterolisthesis of L5 on S1. This is increased to 1.1 cm with flexion and e xtension. There is L5 spondylolysis. SOFT TISSUE: Surgical clips are seen in the pelvis. There are surgical clips in the right upper quad rant most suggestive of prior cholecystectomy. IMPRESSION: 1. L5 spondylolysis and spondylolisthesis of L5 on S1 which worsens with flexion and extension. CT s can may be useful for further evaluation. 2. Moderate degenerative changes in the lumbar spine. DATA REPOSITORY: RADIATION DOSE DELIVERED:
== END ==
PROVIDERS: PCP Nurse Practitioner Family; Visit Provider Nurse Practitioner Family
DX: M43.16 Spondylolisthesis, lumbar region (principal)
CPT/HCPCS: 72110

== ENCOUNTER → 2023-08-09 15:15 | Outpatient (CLI) | payer OTHER, MEDICAID, SELFPAY ==
--- NOTE | 2023-08-09 13:31 | DI.RAD_ITS ---
Exam(s) XR HIP PELVIS ADULT BL EXAM: XR HIP PELVIS ADULT BL CLINICAL HISTORY: PAIN LEFT HIP M25.552. TECHNIQUE: 2D digital imaging was performed. Three views. COMPARISON: No exams were available for comparison FINDINGS: BONES: No acute fracture is present. No bony destructive lesion is seen. JOINTS: No dislocation present. Mild left hip joint space narrowing. Bilateral acetabular spurring g reater superiorly. SI joints and pubic symphysis are unremarkable. SOFT TISSUE: Surgical clips and suture material in the pelvis. IMPRESSION: Degenerative changes of both hips, left greater than right. DATA REPOSITORY: RADIATION DOSE DELIVERED:
== END ==
PROVIDERS: PCP Nurse Practitioner Family; Visit Provider Nurse Practitioner Family
DX: M16.0 Bilateral primary osteoarthritis of hip (principal)
CPT/HCPCS: 73521

== ENCOUNTER → 2023-10-29 13:34 | Outpatient (BNVA) | payer OTHER, MEDICAID, SELFPAY | PROVIDERS: PCP Nurse Practitioner Family; Referring Provider Nurse Practitioner Family; Visit Provider Student in an Organized Health Care Education/Training Program | DX: M70.61 Trochanteric bursitis, right hip (principal); M70.62 Trochanteric bursitis, left hip; M16.0 Bilateral primary osteoarthritis of hip; R22.41 Localized swelling, mass and lump, right lower limb | CPT/HCPCS: 99213 ==

== ENCOUNTER 2023-11-09 16:46 | Outpatient (REF) | payer OTHER, MEDICAID, SELFPAY ==
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
--- OUTSIDE RECORDS SUMMARY | 2023-11-09 16:47 | XMS_ITS | Encounter Summary ---
Author Organization [facility], Located Within [facility] [place] [address] Care Team Providers Care Cigar Head Stringer Name Role Phone Justin Juarez MD Primary Care Provider [phone] Reason for Referral * Consultation (Routine) - Authorized Specialty Diagnoses / Procedures Referred By Contac t Referred To Contact Pain and Spine Center Diagnoses Left sided sciatica Minnie Muñoz APRN [facility] [place] [address] [facility] [place] [address] Referral ID Status Reason Start Date Expiration Date Visits Requested Visits Authorized [id number] Authorized Consult, Test & Treat 07/26/2023 07/25/2024 1 1 Reason for Visit * Consultation (Routine) - Closed Specialty Diagnoses / Procedures Referred By Contac t Referred To Contact [facility] and Spine Center Diagnoses Radiculopathy of lumbar region F/U lumbar radiculopathy/XR 06/15/23 in e-DH/? 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 Osmar Leigh MD [facility] [address] [facility] [place] [place] [address] Referral ID Status Reason Start Date Expiration Date V isits Requested Visits Authorized [id number] Closed Consult, Test & Treat 07/02/2023 07/01/2024 1 1 Encounter Details Date Type Department Care Team (Latest Contact Info) Description 07/26/2023 1:00 PM EDT TH Visit (TeleHealth) [facility] [place] [address] Minnie Muñoz APRN [facility] [address] Left sided sciatica (Primary Dx) Social History Tobacco Use Types Packs/Day Years Used Date Smoking Tobacco: Former Cigarettes Smokeless Tobacco: Never Comments:smoking cessation i nfo given Quit in 12/2021 Alcohol Use Standard Drinks/Week Comments Never 0 (1 standard drink = 0.6 oz pur e alcohol) Sex and Gender Information Value Date Recorded Sex Assigned at Female 08/19/2020 4:17 PM EDT Gender Identity Female 07/03/2022 4:28 PM EDT Sexual Orientation Straight 08/19/2020 4: 17 PM EDT documented as of this encounter Progress Notes * Minnie Muñoz, JL - 07/26/2023 1:00 PM EDT Images from the original note were not included. [facility] Date of Consultation: July 26, 2023 Referring Provider: Osmar Leigh Reason for request of consultation: To get [...] She is done physical therapy locally [facility] [place] [facility] and Tylenol she would like to do [...] and learn to ride her exercise bike. Updated interval history 06/01/2023: I am following up with Aydee to review her outside imaging. We reviewed her cervical, thoracic, and lumbar spine imaging. Her neck is painful and she has some pain around her thoracic spine and does have disc degenerative changes in both those areas without any significant stenosis. In her low back however she has significant stenosis at L5-S1 with bilateral pars defects. She had a prior hemilaminectomy and medial facetectomy done by Dr. Fisher's at [facility] neurosurgery in 2020 for a left-sided calcified synovial cyst. Since then she has had severe left leg pain that is problematic for her. She really cannot do much of anything. She is fine that the pain is quite severe and she would like to consider a referral to a surgeon. We also talked about the functional shinto program but she does not have good transportation. She does not feel she needs empowered relief because she has done a lot of cognitive behavioral therapy. She is at maximum dose of gabapentin and is not really interested in continuing with other medications. She wants to have a final solution for her symptoms. Updated interval history 07/26/2023: [facility] Telemedicine Visit Verbal consent: The concept of ???Telemedicine?? has been described to the patient. Patient has been informed of the anticipated benefits and possible risks. Patient understands the information provided regarding telemedicine, has had the opportunity to ask questions about this information, and all questions havebeen answered to patient???s satisfaction. Patient consents for the use of telemedicine in his/her medical care and authorizes the transmission of any relevant medical information to providers and their staff involved in patient???s medical or mental health care. Verbal consent obtained by myself or auxiliary staff: Yes Patient Location: Home Provider Location: Office I had a telemedicine visit with Aydee vasquez. She had visited with Dr. Leigh about her back pain and she reports her spine hurts from top to bottom from cervical spine thoracic spine lumbar spine. Dr. Leigh was not overly optimistic about surgery and referred her back for an injection. She had left- sided sciatica. She has not had injections without help. She is interested in spinal cord stimulation. She was originally sent here by Dr. Méndez to discuss this. She would like to review if she is acandidate for this I did discuss with her that it is not likely to help all of her symptoms but sheis hopeful that it might help particular low back and her left-sided sciatica. PAIN ASSESSMENT: Description: Low back pain is [...] on stomach Pain today: Anywhere from 4-10 unchanged Best in past week:4/10 Worst in past [...] Interference Score 8.29 PAST THERAPIES: PT in [place] [facility] Tyl[facility] Functional Status Work-- disabled ADL's---difficulty with walking, doing chores, sitting , sleeping Lives at home alone Current Medications: No outpatient medications have been marked as taking for the 07/26/23 encounter (TH Visit (TeleHealth)) with Minnie Muñoz APRN. 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 Obstructive sleep apnea G47.33 Gastroesophageal reflux K21.9 Elevated cholesterol E78.00 Morbid obesity E66.01 Body mass index (BMI) of 36.0-36.9 in adult Z68.36 Anxiety F41.9 Depression F32.A Stress disorder, posttraumatic F43.10 Tobacco abuse Z72.0 Radiculopathy of lumbar region M54.16 Social History: Social History Socioeconomic History Marital status: Spouse name: Not on file Number of children: Not on file Years of education: Not on file Highest education level: Not on file Occupational History Not on file Tobacco Use Smoking status: Former Packs/day: 1 Types: Cigarettes Smokeless tobacco: Never Tobacco comments: smoking cessation info given Quit in 12/2021 Vaping Use Vaping Use: Never used Substance [...] exactly Elevated cholesterol 11/03/2015 Gastroesophageal reflux 11/03/2015 Guildejuan Robbins?? syndrome 11/03/2015 Liver disease resolved Mental health problem Anxiety, Depression, PTSD Morbid obesity 11/04/2015 Motion sickness Neuropathy involving both lower extremities Knee to feet bilaterally secondary to Gilda Saffell, decreased sensation to kimberly arms as well Obstructive sleep apnea 11/03/2015 Stress disorder, posttraumatic 11/04/2015 Past Surgical History: Past Surgical History: Procedure Laterality Date APPENDECTOMY CHOLECYSTECTOMY COLECTOMY COLONOSCOPY PRO LAMINEC/FACETECT/FORAMIN, LUMBAR 1 SEG Left 08/31/2020 LAMINECTOMY, FACETECTOMY & FORAMINOTOMY,LUMBAR, ONE LEVEL (WRVU 15.37) performed by Homar Astudillo MD at [facility] MAIN OR Review of Systems: Denies fever, chills, weight loss, SOB, abdominal pain, leg weakness/numbnes, arm weakness/numbness, bowel or bladder incontinence, balance issues She has had weight gain since quitting smoking RISK ASSESSMENT: Smoking: Quit smoking Alcohol: no [...] the knees but absent at the Achilles Difficulty palpating distal pulses but feet are warm bilaterally and there is good perfusion and good capillary refill. There is no swelling and negative Homans. She does report swelling occasionallyin her left leg as well. There is no swelling today. Negative straight leg raise updated 06/01/2023 Imaging & Other Studies: Assessment: Ms. Johns is a 58 y.o. year-old female who presents to the [facility] With low back pain and lateral leg pain. Has had 1 prior spine surgery at L5-S1. She has had injections without relief. She discussed a repeat surgery with Dr. Leigh who did not think it would be helpful. She would like to visit with someone about spinal cord stimulation and so that order was placed. I will send her some information. We also will send her some information about our functional shinto program which might be helpful for her as well. Thank you Dr. Leigh for allowing my participation in Aydee Johns's care. Minnie Muñoz, MS, INSTRUCTIONAL TECHNOLOGIST-BC, VISUAL COORDINATOR Nurse practitioner Pain management [facility] documented in this encounter Plan of Treatment Upcoming Encounters Date Type Department Care Team (Late st Contact Info) Description 12/25/2023 2:00 PM EDT Office Visit [place] [address] Justin Sevilla MD [facility] [place] [address] 01/23/2024 2:00 PM EDT Office Visit Pain [place] [address] Kenneth Maritn MD [facility] [place] [address] Scheduled Referrals Name Type Priority Associated Diagnoses Order Schedule Referral to Pain Management Outpatient Referral Routine Left sided sciatica Ordered: 07/26/2023 documented as of this encounter Goals Goal [...] as of this encounter Visit Diagnoses Diagnosis Left sided sciatica- Primary Sciatica documented in this encounter Care Teams Cigar Head Stringer Relationship Specialty Start Date End Date Justin Juarez MD [address] [place] [address] PCP - General Family Medicine 12/29/22 documented as of this encounter
--- OUTSIDE RECORDS SUMMARY | 2023-11-09 16:47 | XMS_ITS | Encounter Summary ---
[place] [address] Care Team Providers Care Pc Tech Name Role Phone Justin Juarez MD Primary Care Provider [phone] Encounter Details Date Type Department Care Team (Latest Contact Info) Description 07/02/2023 Travel Social History Tobacco Use Types Packs/Day Years [...] PM EDT documented as of this encounter Plan of Treatment Upcoming Encounters Date Type Department Care Team (Late st Contact Info) Description 12/25/2023 2:00 PM EDT Office [place] [phone] Justin Sevilla MD [facility] [place] [address] 01/23/2024 2:00 PM EDT Office Visit [place] [phone] Kenneth Martin MD [facility] [place] [address] documented as of this encounter Goals Goal [...] documented as of this encounter Visit Diagnoses Not on filedocumented in this encounter Care Teams Pc Tech Relationship Specialty Start Date End Date Justin Juarez MD [address] [place] [address] PCP - General Family Medicine 12/29/22 documented as of this encounter
--- OUTSIDE RECORDS SUMMARY | 2023-11-09 16:47 | XMS_ITS | Encounter Summary ---
[place] [address] Care Team Providers Care Academic Vice President Name Role Phone Justin Juarez MD Primary Care Provider [phone] Reason for Referral * Consultation (Routine) - Closed Specialty Diagnoses / Procedures Referred By Contac t Referred To Contact Pain and Spine Center Diagnoses Radiculopathy of lumbar region F/U lumbar radiculopathy/XR 06/15/23 in e-DH/? Left L5 TFESI FUV OVEN UNLOADER Osmar Leigh MD [facility] [place] [address] [facility] [place] [address] Referral ID Status Reason Start Date Expiration Date V isits Requested Visits Authorized [id number] Closed Consult, Test & Treat 07/02/2023 07/01/2024 1 1 Reason for Visit * Reason Comments Back Pain * Consultation (Routine) - Closed Specialty Diagnoses / Procedures Referred By Contac t Referred To Contact Pain and Spine Center Diagnoses Radicular pain of left lower extremity Minnie Muñoz, JL [facility] [place] [address] [facility] [place] [address] Referral ID Status Reason Start Date Expiration Date V isits Requested Visits Authorized [id number] Closed Consult, Test & Treat 06/01/2023 05/31/2024 1 1 Encounter Details Date Type Department Care Team (Latest Contact Info) Description 07/02/2023 1:20 PM EDT Office Visit [place] [address] Osmar Leigh MD [facility] [place] [address] Radiculopathy of lumbar region Social History Tobacco Use Types Packs/Day Years [...] Sign Reading Time Taken Comments Blood Pressure - - Pulse - - Temperature - - Respiratory Rate - - Oxygen Saturation - - Inhaled Oxygen Concentration - - Weight 108.9 kg (240 lb) 07/02/2023 1:14 PM EDT Height 160 cm (5' 3) 07/02/2023 1:14 PM EDT Body Mass Index 42.51 07/02/2023 1:14 PM EDT documented in this encounter Progress Notes * Osmar Leigh MD - 07/02/2023 1:20 PM EDT Chief complaint: Low back pain radiating to left lower extremity History of present illness: Ms. Johns is a 58-year-old female whom I am seeing in consultation Orlin Muñoz in regards to her back pain that radiates to her left buttock, posterolateral thigh, and lateral leg to the dorsum of the left foot. She has had the symptoms for approximately 5 years. She underwent a left L5-S1 hemilaminectomy by Dr. Astudillo in 2020 that gave her less than 1 week of relief. She describes numbness and a bilateral stocking-like distribution due to a peripheral neuropathy. Her legs feel somewhat weak to her. The pain is worse with standing and walking and improves if she sits down. It limits her standing to about 5 minutes and walking to less than 100 feet. The painbothers her at night. She denies constitutional symptoms or change in her bowel or bladder function. She has done many months of physical therapy with no improvement. She has taken Tylenol and gabapentin with no improvement. She had a lumbar epidural steroid injection over 1 year ago with no benefit. She cannot take anti-inflammatory medication due to GI upset. 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 Family history: Heart disease, cancer Social history: She is disabled. She does not smoke or drink. Review of systems: All negative except musculoskeletal as above. Physical exam Patient is 5 foot 3, 240 pounds, with a BMI of 43 General: Patient is comfortable, no acute distress Back: She has a well-healed lumbar incision. Her back is nontender to palpation. She can flex to 60degrees and extend 5 degrees, with extension being painful. Neurological exam: She walks with a slow, antalgic gait. She cannot heel walk or toe walk. Motor exam reveals 4/5 strength of her left EHL with other motors 5/5. She has diminished sensation in a stocking-like distribution bilaterally. Reflexes are 2/4 at the knees and trace at the ankles. Straightleg raise is negative bilaterally. She has no clonus. Hip exam: She has normal, painless range of motion of both hips. She is tender over both greater trochanters. Vascular: She has palpable pulses bilaterally. Imaging: AP and lateral flexion-extension x-rays of the lumbar spine from 06/15/2023 were reviewed. These demonstrate degenerative changes most pronounced at L4-L5 and L5-S1 with what appears to be a grade 1 isthmic spondylolisthesis at L5-S1 that increases slightly with flexion as compared to extension. MRI of the lumbar spine from 05/17/2023 was reviewed. This showed degenerative changes most pronounced at L4-L5 and L5-S1. There is evidence of prior surgery on the left at L5-S1. She appears to have bilateral pars defects. There is severe left-sided foraminal stenosis at L5-S1. Assessment/plan: Ms. Johns is a 58-year-old female who presents with longstanding back pain and left L5 radiculopathy in the setting of severe foraminal stenosis on the left at L5-S1 with a grade 1 isthmic spondylolisthesis, bilateral pars defects, and a prior left L5-S1 hemilaminectomy. We discussed treatment options for this that include continued medication, further physical therapy, repeat injection, and surgery. I explained that surgery would involve a left L5-S1 revision Isaac Goddard procedure with an L5- S1 posterolateral instrumented fusion using either iliac crest bone graft or BMP-2 and local bone graft. She understands that she is at increased risk for complications given her morbidobesity and history of prior surgery. She would like to go ahead with a left L5 transforaminal epidural steroid injection, so I made a referral to the pain clinic. In the event that she wanted to discuss surgery further, she should return to see me with a CT scan of the lumbar spine prior to the visit to better define the bony anatomy documented in this encounter Plan of Treatment Upcoming Encounters Date Type Department Care Team (Late st Contact Info) Description 12/25/2023 2:00 PM EDT [place] [address] Justin Sevilla MD [facility] [place] [address] 01/23/2024 2:00 PM EDT Office Visit [place] [address] Kenneth Martin MD [facility] [place] [address] Scheduled Referrals Name Type Priority Associated Diagnoses Orde r Schedule Referral to Pain and Spine Center (Internal only) Outpatient Referral Routine Radiculopathy of lumbar region Ordered: 07/02/2023 documented as of this encounter Goals Goal [...] as of this encounter Visit Diagnoses Diagnosis Radiculopathy of lumbar region Thoracic or lumbosacral neuritis or radiculitis, unspecified documented in this encounter Care Teams Academic Vice President Relationship Specialty Start Date End Date Justin Juarez MD [address] [place] [address] PCP - General Family Medicine 12/29/22 documented as of this encounter
--- OUTSIDE RECORDS SUMMARY | 2023-11-09 16:47 | XMS_ITS | Encounter Summary ---
[place] [address] Care Team Providers Care Tv News Director Name Role Phone Justin Juarez MD Primary Care Provider [phone] Encounter Details Date Type Department Care Team (Latest Contact Info) Description 06/01/2023 Travel Social History Tobacco Use Types Packs/Day [...] PM EDT Office [place] [phone] Justin Sevilla MD [facility] [place] [address] 01/23/2024 2:00 PM EDT Office Visit [place] [phone] Kenneth Martin MD [facility] [place] [address] documented as of this encounter Goals Goal [...] on filedocumented in this encounter Care Teams Tv News Director Relationship Specialty Start Date End Date Justin Juarez MD [address] [place] [address] PCP - General Family Medicine 12/29/22 documented as of this encounter
--- OUTSIDE RECORDS SUMMARY | 2023-11-09 16:47 | XMS_ITS | Encounter Summary ---
Author Organization [facility] [place] [address] Care Team Providers Care Panel Beater Name Role Phone Justin Juarez MD Primary Care Provider Encounter Details Date Type Department Care Team (Late Contact Info) Description 12/29/2022 Transcribe Orders eDH Incoming Referrals [phone] Justin Juarez MD [facility] [place] [phone] Social History Tobacco Use Types Packs/Day Years [...] Encounters Date Type Department Care Team (Late Contact Info) Description 12/25/2023 2:00 PM EDT Office [place] [phone] Justin Sevilla MD [facility] [place] [address] 01/23/2024 2:00 PM EDT Office Visit Pain [place] [phone] Kenneth Martin MD [facility] [place] [address] documented as of this encounter Goals Goal [...] on filedocumented in this encounter Care Teams Panel Beater Relationship Specialty Start Date End Date Justin Juarez MD [facility] [place] [address] PCP - General Family Medicine 12/29/22 documented as of this encounter
--- OUTSIDE RECORDS SUMMARY | 2023-11-09 16:47 | XMS_ITS | Encounter Summary ---
[place] [address] Care Team Providers Care Orthodontic Technician Assistant Name Role Phone Justin Juarez MD Primary Care Provider Encounter Details Date Type Department Care Team (Late Contact Info) Description 06/15/2023 Ancillary Procedure [place] [address] Justin Juarez MD [address] [place] [address] [place] [phone] Social History Tobacco Use Types Packs/Day Years [...] PM EDT Office [place] [address] Justin Sevilla MD [facility] [place] [address] 01/23/2024 2:00 PM EDT Office Visit [place] [address] Kenneth Martin MD [facility] [place] [address] documented as of this encounter Goals Goal [...] no gulping documented as of this encounter Procedures Procedure Name Priority Date/Time Associated Diagnosis Comments FILM LIBRARY STORAGE ONLY DX SPINE Routine 06/15/2023 12:00 AM EST documented in this encounter Results * Film Library- Storage Only DX Spine (06/15/2023 12:00 AM EST) Narrative [facility] - 06/18/2023 3:18 PM EDT This exam is auto-finalizing. It's purpose is for storage only. Justin Juarez MD IMG FILM LIBRARY ORD ERABLES [place], [place] documented in this encounter Visit Diagnoses Not on filedocumented in this encounter Care Teams Orthodontic Technician Assistant Relationship Specialty Start Date End Date Justin Juarez MD [address] [place] [address] PCP - General Family Medicine 12/29/22 documented as of this encounter
--- OUTSIDE RECORDS SUMMARY | 2023-11-09 16:47 | XMS_ITS | Encounter Summary ---
Author Organization [place] [id number] Care Team Providers Care Occupational Physician Name Role Phone Justin Juarez MD Primary Care Provider Reason for Referral * Consultation (Routine) - Duplicate Referral Specialty Diagnoses / Procedures Referred By Mayda jalloh Referred To Contact [facility] Diagnoses Left sided sciatica Idiopathic peripheral neuropathy Jacey Amador, JL [address] [place] [address] [facility] [place] [address] Referral ID Status Reason Start Date Expiration Date Visits Requested Visits Authorized [id number] Duplicate Referral Consult, Test & Treat PCP Updated and/or Approved 12/29/2022 12/29/2023 12 12 Encounter Details Date Type Department Care Team (Latest Contact Info) Description 12/29/2022 Transcribe Orders eDH Incoming Referrals [phone] Jacey Amador APRN [address] [place], [place] [id number] Left sided sciatica; Idiopathic peripheral neuropathy Social History Tobacco Use Types Packs/Day Years [...] PM EDT Office [place] [phone] Justin Sevilla MD [facility] [place] [address] 01/23/2024 2:00 PM EDT Office Visit [facility] [place] [address] Kenneth Martin MD [facility] [place] [address] Scheduled Referrals Name Type Priority Associated Diagnoses Orde r Schedule Referral to Spine Center Outpatient Referral Routine Left sided sciatica Idiopathic peripheral neuropathy Ordered: 12/29/2022 documented as of this encounter Goals Goal [...] this encounter Visit Diagnoses Diagnosis Left sided sciatica Sciatica Idiopathic peripheral neuropathy Unspecified hereditary and idiopathic peripheral neuropathy documented in this encounter Care Teams Occupational Physician Relationship Specialty Start Date End Date Justin Juarez MD [address] [place] [address] PCP - General Family Medicine 12/29/22 documented as of this encounter
--- OUTSIDE RECORDS SUMMARY | 2023-11-09 16:47 | XMS_ITS | Clinical Summary ---
Author Organization [facility] [place] [address] Care Team Providers Care Whipped Topping Supervisor Name Role Phone Justin Juarez MD Primary Care Provider [phone] Allergies Active Allergy Reactions Criticality Noted Date Comments Amitriptyline Low 11/16/2021 Other Reaction(s): Skin Rash Aspirin Medium 2015 Abd pain Codeine Phosphate Duloxetine Anaphylaxis High 08/27/2015 Phenytoin 08/27/2015 Dye 2015 Radio active for a heart test Flu Vac Ts 15-16(18,Up)Johanne(Pf) 08/27/2015 Influenza Virus Vaccines 11/16/2021 Other Reaction(s): Swelling/Edema Metoclopramide Low 11/16/2021 Other Reaction(s): Skin Rash Metoprolol Rash Medium 2015 Nsaids (Non-Steroidal Anti-Inflammatory Drug) Medium 08/24/2020 ABD pain Oxycodone-Acetaminophen 07/02/2023 Penicillins 08/27/2015 Milnacipran 03/06/2016 unsure Unclassified Drug 08/27/2015 Fluzone Quadrivalent ( Influenza vac split quad) Medications Medication Sig Dispensed Refills Start Date End Date Status gabapentin 300 mg Tablet Sustained Release 24 hr Take 900 mg by mouth 4 times daily. Active cyclobenzaprine (FLEXERIL) 5 mg Tablet Take 5 mg by mouth daily as needed. 0 08/04/2015 Active valacyclovir HCl (VALACYCLOVIR ORAL) Take 1 tablet by mouth daily as needed. Active cyanocobalamin, vitamin B-12, (VITAMIN B-12 ORAL) Take by mouth. A ctive loratadine (Claritin) 10 mg Tablet Take 10 mg by mouth daily as needed. Active albuteroL 90 mcg/actuation HFA Aerosol Inhaler Inhale 2 puffs into the lungs every 4 hours as needed. 07/07/2020 Active Flovent HFA 44 mcg/actuation HFA Aerosol Inhaler Inhale 2 puffs into the lungs 2 times daily. 08/15/2020 Active omeprazole (PriLOSEC) 40 mg Capsule, Delayed Release(E.C.) Take 40 mg by mouth daily. 08/15/2020 Active ascorbic acid (VITAMIN C ORAL) Take 1,000 mg by mouth daily. Active cholecalciferol, vitD3,/vit K2 (vitamin D3-vitamin K2) 250 mcg (10,000 unit)-45 mcg Capsule Take 1 capsule by mouth daily. Active UNKNOWN TO PATIENTIndications:l ions angie suppliment Indications: liWebjam suppliment Active UNKNOWN TO PATIENTIndications:c ognatSupplierSync health suppliment Indications: cognative health suppliment Active VITAMIN E ACETATE ORAL Take by mouth. Active SUMAtriptan (Imitrex) 25 mg tablet Take 25 mg by mouth as needed for Migraine. Initial dose: 25 mg, 50 mg, or 100 mg (take with fluids). May repeat dose after 2 hours. 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 Family History Medical History Relation Comments Cancer Brother Cancer Cousin Breast Cancer Mother Cancer Mother Relation Status Comments Brother Cousin Mother Social History Tobacco Use Types Packs/Day Years Used Date Smoking Tobacco: Former Cigarettes Smokeless Tobacco: Never Tobacco Cessation:Counseling Given: Not Answered Comments:smoking cessation info given Quit in 12/2021 Alcohol Use Standard Drinks/Week Comments Never 0 (1 standard drink = 0.6 oz pur e alcohol) Sex and Gender Information Value Date Recorded Sex Assigned at Female 08/19/2020 4:17 PM EDT Gender Identity Female 07/03/2022 4:28 PM EDT Sexual Orientation Straight 08/19/2020 4: 17 PM EDT Last Filed Vital Signs Vital Sign Reading Time Taken Comments Blood Pressure 133/62 03/13/2023 2:52 PM EST Pulse 71 03/13/2023 2:52 PM EST Temperature 35.6 ??C (96.1 ??F) 08/31/2020 1 1:56 AM EDT gown warmer initiated, warm blankets appied to patient Respiratory Rate 16 08/31/2020 1:15 PM EDT Oxygen Saturation 95% 03/13/2023 2:5 2 PM EST Inhaled Oxygen Concentration - - Weight 108.9 kg (240 lb) 07/02/2023 1:1 4 PM EDT Height 160 cm (5' 3) 07/02/2023 1:14 PM EDT Body Mass Index 42.51 07/02/2023 1:14 PM EDT Plan of Treatment Upcoming Encounters Date Type Department Care Team (Late st Contact Info) Description 12/25/2023 2:00 PM EDT Office [place] [address] Justin Sevilla MD [facility] [place] [address] 01/23/2024 2:00 PM EDT Office Visit [facility] [place] [address] Kenneth Martin MD [facility] [place] [address] Health Maintenance Due Date Last Done Comments CT Colonography 1963 Colonoscopy 1963 Colorectal Cancer Screening 1963 FIT DNA 1963 FIT 1963 Sigmoidoscopy (10 year) with FIT yearly 1963 Sigmoidoscopy 1963 Pneumococcal Vaccine: At-Ris k 5-64yrs (1 of 2 - PCV) 1969 HIV screen 1981 Hepatitis C Screening 1981 Tdap adult 1982 Tetanus vaccine 1982 HPV test 1993 PAP Smear 1993 Breast Cancer Share Decision Needed 2003 Breast Cancer screening 2003 Zoster vaccine (1 of 2) 2013 Advance Directive 2018 Covid-19 Vaccine (1 - 2022- season) 2022 Influenza (Flu) vaccine (1 o f 1 - Influenza standard series) 12/09/2023 Diabetes Screening (HgbA1C or Glucose) 12/22/2024, 08/29/2021 Lipid Screening 08/29/2026 08/29/2021 Goals Goal Patient Goal Type Associated Problems [...] of meal times; no chugging no gulping Procedures Procedure Name Priority Date/Time Associated Diagnosis Comments [facility] EXTERNAL LABS 2 Routine 12/22/2021 [facility] EXTERNAL RESULT PANEL Routine 08/29/2021 from Last 3 Months or Most Recently Relevant to Health Maintenance Results * (ABNORMAL) [facility] Labs 2 - External (12/22/2021) Hemoglobin A1C 5.9(H) Glucose Fasting 103 25-OH Vit D Total 19.1(L) TSH 0.93 Insulin Lvl 15.1 Ferritin 120 Iron 76 12/22/2021 Historical Provider POINT OF CARE BONNIE T ORDERABLES * (ABNORMAL) [facility] External Results (08/29/2021) Chol, Total 311(H) Triglycerides 308(H) HDL 46 LDL Cholesterol 204(H) BUN 12 Creatinine 0.8 Sodium 142 Potassium 4.0 Chloride 104 CO2 28 Anion Gap 10 Calcium 9.1 Total Protein 7.4 Albumin 4.2 AST 13(L) ALT 23 Alk Phos 79 Total Bilirubin 0.5 Estimated GFR >60 Glucose Lvl 110(H) Platelets 318 08/29/2021 Historical Provider POINT OF CARE BONNIE T ORDERABLES from Last 3 Months or Most Recently Relevant to Health Maintenance Care Teams Whipped Topping Supervisor Relationship Specialty Start Date End Date Justin Juarez MD [address] [place] [address] PCP - General Family Medicine 12/29/22
--- OUTSIDE RECORDS SUMMARY | 2023-11-09 16:47 | XMS_ITS | Encounter Summary ---
[place] [address] Care Team Providers Care Dairy Hand Name Role Phone Justin Juarez MD Primary Care Provider Encounter Details Date Type Department Care Team (Late Contact Info) Description 05/17/2023 7:05 PM EST Ancillary Procedure [place] [address] Justin Juarez MD [address] [place] [address] [place] [id number] Social History Tobacco Use Types Packs/Day Years [...] PM EDT Office [place] [address] Justin Sevilla MD [facility] [place] [address] 01/23/2024 2:00 PM EDT Office Visit [facility] [place] [address] Kenneth Martin MD [facility] [place] [address] documented as of this encounter Goals Goal [...] Associated Diagnosis Comments FILM LIBRARY STORAGE ONLY MR SPINE Routine 05/17/2023 7:01 PM EST documented in this encounter Results * Film Library- Storage Only MR Spine (05/17/2023 7:01 PM EST) Narrative [facility] - 05/17/2023 7:01 PM EST This exam is auto-finalizing. It's purpose is for storage only. Justin Juarez MD G FILM LIBRARY ORD ERABLES [place], [place] documented in this encounter Visit Diagnoses Not on filedocumented in this encounter Care Teams Dairy Hand Relationship Specialty Start Date End Date Justin Juarez MD [address] [place] [address] [place] [address] PCP - General Family Medicine 12/29/22 documented as of this encounter
--- OUTSIDE RECORDS SUMMARY | 2023-11-09 16:47 | XMS_ITS | Encounter Summary ---
[place] [address] Care Team Providers Care Spanish Tutor Name Role Phone Glenys Hernandez JL Primary Care Provider [phone] Reason for Referral * Consultation (Routine) - Closed Specialty Diagnoses / Procedures Referred By Contac t Referred To Contact [facility] Diagnoses Other cervical disc disorders at C6-C7 level Thoracic disc herniation Thoracic back pain, unspecified back pain laterality, unspecified chronicity Cervical/thoracic disc protrusion/CT (t) 09/18/[address] (c) 11/08/22 @ [facility]/surgical vs [facility] PARAPROFESSIONAL AIDE TEACHER Jacey Amador APRN [address] [place] [address] [facility] [place] [place] [address] Referral ID Status Reason Start Date Expiration Date V isits Requested Visits Authorized [id number] Closed Consult, Test & Treat PCP Updated and/or Approved 12/04/2022 12/04/2023 1 1 Encounter Details Date Type Department Care Team (Latest Contact Info) Description 12/04/2022 Transcribe Orders eD Incoming Referrals [phone] Jacey Amador APRN [address], [place] [id number] Other cervical disc disorders at C6-C7 level; Thoracic disc herniation; Thoracic back pain, unspecified back pain laterality, unspecified chronicity Social History Tobacco Use Types Packs/Day Years [...] PM EDT Office [place] [phone] Justin Sevilla MD [facility] [place] [address] 01/23/2024 2:00 PM EDT Office Visit [facility] [place] [phone] Kenneth Martin MD [facility] [place] [address] Scheduled Referrals Name Type Priority Associated Diagnoses [...] as of this encounter Visit Diagnoses Diagnosis Other cervical disc disorders at C6-C7 level Thoracic disc herniation Displacement of thoracic intervertebral disc without myelopathy Thoracic back pain, unspecified back pain laterality, unspecified chronicity documented in this encounter Care Teams Spanish Tutor Relationship Specialty Start Date End Date Glenys Hernandez, CHIEF TALENT OFFICER [address] [place] [address] PCP - General Family Medicine 09/26/21 12/28/22 documented as of this encounter
--- OUTSIDE RECORDS SUMMARY | 2023-11-09 16:47 | XMS_ITS | Encounter Summary ---
[place] [address] Care Team Providers Care Executive Sales Manager Name Role Phone Justin Juarez MD Primary Care Provider [phone] Encounter Details Date Type Department Care Team (Late Contact Info) Description 07/27/2023 Telephone [facility] [place] [phone] Mike Rock Social History Tobacco Use Types Packs/Day Years [...] PM EDT Office [place] [phone] Justin Sevilla MD [facility] [place] [address] 01/23/2024 2:00 PM EDT Office Visit [facility] [place] [phone] Kenneth Martin MD [facility] [place] [address] documented as of this encounter Goals Goal [...] on filedocumented in this encounter Care Teams Executive Sales Manager Relationship Specialty Start Date End Date Justin Juarez MD [address] [place] [address] PCP - General Family Medicine 12/29/22 documented as of this encounter
--- OUTSIDE RECORDS SUMMARY | 2023-11-09 16:47 | XMS_ITS | Encounter Summary ---
Author Organization [facility] [place] [address] Care Team Providers Care Steamfitter Supervisor Name Role Phone Justin Juarez MD Primary Care Provider [phone] Reason for Referral * Consultation (Routine) - Closed Specialty Diagnoses / Procedures Referred By Mayda jalloh Referred To Contact [facility] Diagnoses Radicular pain of left lower extremity Minnie Muñoz APRN [facility] [place] [address] [facility] [place] [address] Referral ID Status Reason Start Date Expiration Date V isits Requested Visits Authorized [id number] Closed Consult, Test & Treat 06/01/2023 05/31/2024 1 1 Reason for Visit * Reason Comments Follow-up Left Leg Pain Left leg pain and sw elling(lower leg)Lower back Back Pain Encounter Details Date Type Department Care Team ([facility] Contact Info) Description 06/01/2023 10:15 AM EST Office Visit [place] [address] Minnie Muñoz APRN [facility] [place] [address] Radicular pain of left lower extremity (Primary Dx) Social History Tobacco Use Types [...] - Inhaled Oxygen Concentration - - Weight 106.1 kg (234 lb) 06/01/2023 10:04 AM EST Height 160 cm (5' 3) 06/01/2023 10:04 AM EST Body Mass Index 41.45 06/01/2023 10:04 AM EST documented in this encounter Progress Notes * Minnie Muñoz, SUBSTATION ELECTRICIAN - 06/01/2023 10:15 AM EST Images from the original note were not included. [facility] Date of Consultation: May 29, 2023 Referring Provider: Jacey Amador Reason for [...] She is done physical therapy locally in [place] chiropractics and Tylenol she would like to do [...] hemilaminectomy and medial facetectomy done by Dr. Fisher'lashaun at [facility] neurology and neurosurgery in 2020 for a left-sided calcified synovial cyst. Since then she has had severe left leg pain that is problematic for her. She really cannot do much of anything. She is fine that the pain is quite severe and she would like to consider a referral to a surgeon. We also talked about the functional sabianist program but she does not have good transportation. She does not feel she needs empowered relief because she has done a lot of cognitive behavioral therapy. She is at maximum dose of gabapentin and is not really interested in continuing with other medications. She wants to have a final solution for her symptoms. PAIN ASSESSMENT: Description: Low back pain is [...] Interference Score 8.29 PAST THERAPIES: PT in [place] Chiropractor Tylenol Functional Status Work-- disabled ADL's---difficulty with walking, doing chores, sitting , sleeping Lives at home alone Current Medications: No outpatient medications have been marked as taking for the 06/01/23 encounter (Appointment) with Minnie Muñoz APRN. Allergies [...] Knee to feet bilaterally secondary to Gilda Inglis, decreased sensation to kimberly arms as well Obstructive sleep apnea 11/03/2015 Stress disorder, posttraumatic 11/04/2015 Past Surgical History: Past Surgical History: Procedure Laterality Date APPENDECTOMY CHOLECYSTECTOMY COLECTOMY COLONOSCOPY PRO LAMINEC/FACETECT/FORAMIN, LUMBAR 1 SEG Left 08/31/2020 LAMINECTOMY, FACETECTOMY & FORAMINOTOMY,LUMBAR, ONE LEVEL (WRVU 15.37) performed by Homar Astudillo MD at [facility] Review of Systems: Denies fever, [...] y.o. year-old female who presents to the [facility] With low back pain and lateral leg pain. In the past,ISaw her I had ordered that she had a trial of an epidural steroid injection she did have an injection with no relief. She has had the prior surgery as discussed. She continues to have persistent left leg pain that limits her activities and is problematic anywhere from 4-10 on a scale of 10. She also has some thoracic spine pain and some cervical spine pain. She would like to see a surgeon to see if there is a surgical solution for her symptoms. I talked her about a diagnostic pars injection but she would prefer to see a surgeon first. I did order flexion-extension films of her lumbar spine in preparation for that visit and made a referral. Thank you Dr. Amador for allowing my participation in Aydee Johns's care. Minnie Muñoz, MS, SECTION FOREST FIRE WARDEN-BC, SUBSTATION ELECTRICIAN Nurse practitioner Pain management [facility] documented in this encounter Plan of Treatment Upcoming Encounters Date Type Department Care Team (Late st Contact Info) Description 12/25/2023 2:00 PM EDT Office [place] [address] Justin Sevilla MD [facility] [place] [address] 01/23/2024 2:00 PM EDT Office Visit [place] [phone] Kenneth Martin MD [facility] [place] [address] Scheduled Orders Name Type Priority Associated Diagnoses Orde r Schedule XR Lumbar Spine 2 Or 3 Views (Generic) Imaging Routine Radicular pain of left lower extremity Expected: 06/01/2023, Expires: 06/01/2024 Scheduled Referrals Name Type Priority Associated Diagnoses Orde r Schedule Referral to Pain and Spine Center (Internal only) Outpatient Referral Routine Radicular pain of left lower extremity Ordered: 06/01/2023 documented as of this encounter Goals Goal [...] Diagnoses Diagnosis Radicular pain of left lower extremity- Primary Thoracic or lumbosacral neuritis or radiculitis, unspecified documented in this encounter Care Teams Steamfitter Supervisor Relationship Specialty Start Date End Date Justin Juarez MD [address] [place] [address] PCP - General Family Medicine 12/29/22 documented as of this encounter
--- OUTSIDE RECORDS SUMMARY | 2023-11-09 16:47 | XMS_ITS | Encounter Summary ---
[place] [address] Care Team Providers Care Commodity Merchant Name Role Phone Justin Juarez MD Primary Care Provider [phone] Encounter Details Date Type Department Care Team (Latest Contact Info) Description 03/13/2023 Travel Social History Tobacco Use Types Packs/Day [...] PM EDT Office Visit Plastic Surgery at [place] [phone] Justin Sevilla MD [facility] [place] [place] [address] 01/23/2024 2:00 PM EDT Office Visit [facility] [place] [phone] Kenneth Martin MD [facility] [place] [address] documented as of this encounter Goals Goal Patient Goal Type Associated Problems Recent Progress Patient-Stated? Author Nutrition - 9/21/22 Lifestyle No Codie Weinberg MD Note: Nutrition [...] on filedocumented in this encounter Care Teams Commodity Merchant Relationship Specialty Start Date End Date Justin Juarez MD [address] [place] [address] PCP - General Family Medicine 12/29/22 documented as of this encounter
--- OUTSIDE RECORDS SUMMARY | 2023-11-09 16:47 | XMS_ITS | Continuity of Care Document ---
Author Organization [facility] Address [address] [place] [address] Care Team Providers Care Mangle Tender Name Role Phone Jacey Amador Primary Care Physician [phone] Encounter [facility] Date(s): 08/31/23 - 08/31/23 [facility] [address] [place] [address] Encounter Diagnosis Left cervical radiculopathy(Discharge Diagnosis) - 08/31/23 Strain of left trapezius muscle(Discharge Diagnosis) - 08/31/23 Discharge Disposition: Home or Self Care Attending Physician: Magdy Reddy MD Admitting Physician: Magdy Reddy MD Allergies, Adverse Reactions, Alerts Substance Reaction Severity Status codeine Nausea Unknown Active naproxen Oedema Unknown Active acetaminophen-oxycodone Unknown Acti ve traMADol Unknown Active penicillins Other Unknown Active Assessment and Plan Extracted from: Title:ED Provider Note Author:Magdy Reddy MD Date:08/31/23 Assessment/Plan 1.??Left cervical radiculopathy??M54.12 Ordered: CeleBREX 100 mg oral capsule, 100 mg = 1 cap, Oral, BID, X 10 days, # 20 cap, 0 Refill(s), 09/10/23 2:41:00 EDT, Pharmacy: [id number], 160, cm, 02/16/22 19:32:00 EST, Height/Length Dosing, 107.05, kg, 08/31/23 2:10:00 EDT, Weight Dosing predniSONE 10 mg oral tablet, See Instruction, Oral, Daily, 5 tabs for 3 days, 4 tabs daily x3 days, 3 tabs daily x3 days, 2 tabs daily x3 days, 1 tab daily x3 days, # 45 cap, 0 Refill(s), Pharmacy: [id number], 160, cm, 02/16/22 19:32:00 EST, Height/Length Dosing, 107.0... Discharge Patient, 08/31/23 2:53:00 EDT, Home Independently, Constant Indicator ED Visit Follow Up [facility], Orders for future visit, 08/31/23 2:41:00 EDT Physical Therapy, Left cervical radiculopathy Strain of left trapezius muscle ?? 2.??Strain of left trapezius muscle??S46.812A Ordered: CeleBREX 100 mg oral capsule, 100 mg = 1 cap, Oral, BID, X 10 days, # 20 cap, 0 Refill(s), 09/10/23 2:41:00 EDT, [id number], 160, cm, 02/16/22 19:32:00 EST, Height/Length Dosing, 107.05, kg, 08/31/23 2:10:00 EDT, Weight Dosing predniSONE 10 mg oral tablet, See Instruction, Oral, Daily, 5 tabs for 3 days, 4 tabs daily x3 days, 3 tabs daily x3 days, 2 tabs daily x3 days, 1 tab daily x3 days, # 45 cap, 0 Refill(s), Pharmacy: [id number], 160, cm, 02/16/22 19:32:00 EST, Height/Length Dosing, 107.0... Discharge Patient, 08/31/23 2:53:00 EDT, Home Independently, Constant Indicator ED Visit Follow [facility], Orders for future visit, 08/31/23 2:41:00 EDT Physical Therapy, Left cervical radiculopathy Strain of left trapezius muscle ?? Orders: XR Chest 1 View, 08/31/23 2:26:00 EDT, Stat, Reason: chest pain, Transport Mode: Stretcher, Exam to be performed outside organization? XR Shoulder Complete 2+ Views Left, 08/31/23 2:26:00 EDT, Stat, Reason: pain, Transport Mode: Stretcher, Exam to be performed outside organization? Patient Education Shoulder Pain Cervical Radiculopathy, [id number] Follow Up With When Contact Information Follow up with primary care provider Only if needed Additional Instructions: Immunizations Given and Recorded Vaccine Date Status Refusal Reason hepatitis B pediatric vaccine 02/01/06 Recorded hepatitis B pediatric vaccine 03/09/05 Recorded hepatitis B adult vaccine 04/11/05 Recorded Medications Albuterol (Eqv-ProAir HFA) 90 mcg/inh inhalation aerosol 0 Refill(s) Start Date: 01/18/22 Status: Ordered CeleBREX 100 mg oral capsule 100 mg = 1 cap, Oral, BID, X 10 days, # 20 cap, 0 Refill(s), 09/10/23 1:41:00 AM CDT, Pharmacy: [id number], 160, cm, 02/16/22 19:32:00 EST, Height/Length Dosing, 107.05, kg, 08/31/23 2:10:00EDT, Weight Dosing Start Date: 08/31/23 Stop Date: 09/10/23 Status: Ordered cyclobenzaprine 10 mg oral tablet 10 mg = 1 tab, Oral, TID, PRN as needed for muscle spasm, # 30 tab, 0 Refill(s) Start Date: 01/18/22 Status: Ordered Flovent Diskus 100 mcg inhalation powder 2 puffs, Inhale, BID, # 60 EA, 0 Refill(s) Start Date: 01/18/22 Status: Ordered gabapentin 0 Refill(s) Start Date: 01/12/22 Status: Ordered omeprazole 40 mg =, BID, 0 Refill(s) Start Date: 08/31/23 Status: Ordered predniSONE 10 mg oral tablet See Instruction, Oral, Daily, 5 tabs for 3 days, 4 tabs daily x3 days, 3 tabs daily x3 days, 2 tabsdaily x3 days, 1 tab daily x3 days, # 45 cap, 0 Refill(s), Pharmacy: [id number], 160, cm, 02/16/22 19:32:00 EST, Height/Length Dosing, 107.05, kg, 08/31/23 2:10:00 EDT, Weight Dosing Start Date: 08/31/23 Status: Ordered SUMAtriptan 50 mg oral tablet [...] [36-38 Deg C ] 36.5 Deg C (08/31/23 2:04 AM) Heart Rate Monitored [60-100 bpm] 92 bpm (08/31/23 2:04 AM) Respiratory Rate [12-24 br/min] 20 br/mi n (08/31/23 2:04 AM) Blood Pressure [90-140/60-90 mmHg] 145/7 5mmHg *HI* (08/31/23 2:04 AM) Mean Arterial Pressure, Cuff [65-140 mmH g] 98 mmHg (08/31/23 2:04 AM) Weight 107.05 kg (08/31/23 2:04 AM) Weight Dosing 107.050 kg (08/31/23 2:04 AM) Social History Social History Type Response Tobacco Former tobacco user Tobacco Use:. quite cold turkey 21 days ago per day. Sex Female Hospital Discharge Instructions Patient Education 08/31/2023 01:38:58 Shoulder Pain Shoulder Pain Many things can cause shoulder pain, including: ??? An injury to the shoulder. ??? Overuse of the shoulder. ??? Arthritis. The source of the pain can be: ??? Inflammation. ??? An injury to the shoulder joint. ??? An injury to a tendon, ligament, or bone. Follow these instructions at home: Pay attention to changes in your symptoms. Let your health care provider know about them. Follow these instructions to relieve your pain. If you have a removable sling: ??? Wear the sling as told by your provider. Remove it only as told by your provider. ??? Check the skin around the sling every day. Tell your provider about any concerns. ??? Loosen the sling if your fingers tingle, become numb, or become cold. ??? Keep the sling clean. ??? If the sling is not waterproof: ??? Do not let it get wet. ??? Remove it to shower or bathe. ??? Move your arm as little as possible, but keep your hand moving to prevent swelling. Managing pain, stiffness, and swelling ??? If told, put ice on the painful area. ??? If you have a removable sling or immobilizer, remove it as told by your provider. ??? Put ice in a plastic bag. ??? Place a towel between your skin and the bag. ??? Leave the ice on for 20 minutes, 2???3 times a day. ??? If your skin turns bright red, remove the ice right away to prevent skin damage. The risk of damage is higher if you cannot feel pain, heat, or cold. ??? Move your fingers often to reduce stiffness and swelling. ??? Squeeze a soft ball or a foam pad as much as possible. This helps to keep the shoulder from swelling. It also helps to strengthen the arm. General instructions ??? Take phqy-irt-sonilic and prescription medicines only as told by your provider. ??? Exercise may help with pain management. Perform exercises if told by your provider. ??? You may be referred to a physical therapist to help in your recovery process. ??? Keep all follow-up visits in order to avoid any type of permanent shoulder disability or chronic pain problems. Contact a health care provider if: ??? Your pain is not relieved with medicines. ??? New pain develops in your arm, hand, or fingers. ??? You loosen your sling and your arm, hand, or fingers remain tingly, numb, swollen, or painful. Get help right away if: ??? Your arm, hand, or fingers turn white or blue. This information is not intended to replace advice given to you by your health care provider. Make sure you discuss any questions you have with your health care provider. Document Revised: 10/27/2022 Document Reviewed: 10/27/2022 b3 bio Patient Education ?? 2022 [employer]. 08/31/2023 01:38:39 Cervical Radiculopathy, Izrz-qj-Thtn Cervical Radiculopathy Cervical radiculopathy means that a nerve in the neck (a cervical nerve) is pinched or bruised. This can happen because of an injury to the cervical spine (vertebrae) in the neck, or as a normal partof getting older. This condition can cause pain or loss of feeling (numbness) that runs from your neck all the way down to your arm and fingers. Often, this condition gets better with rest. Treatmentmay be needed if the condition does not get better. What are the causes? A neck injury. ??? A bulging disk in your spine. ??? Sudden muscle tightening (muscle spasms). ??? Tight muscles in your neck due to overuse. ??? Arthritis. ??? Breakdown in the bones and joints of the spine (spondylosis) due to getting older. ??? Bone spurs that form near the nerves in the neck. What are the signs or symptoms? Pain. The pain may: ??? Run from the neck to the arm and hand. ??? Be very bad or irritating. ??? Get worse when you move your neck. ??? Loss of feeling or tingling in your arm or hand. ??? Weakness in your arm or hand, in very bad cases. How is this treated? In many cases, treatment is not needed for this condition. With rest, the condition often gets better over time. If treatment is needed, options may include: ??? Wearing a soft neck collar (cervical collar) for short periods of time. ??? Doing exercises (physical therapy) to strengthen your neck muscles. ??? Taking medicines. ??? Having shots (injections) in your spine, in very bad cases. ??? Having surgery. This may be needed if other treatments do not help. The type of surgery that isused will depend on the cause of your condition. Follow these instructions at home: If you have a soft neck collar: ??? Wear it as told by your doctor. Take it off only as told by your doctor. ??? Ask your doctor if you can take the collar off for cleaning and bathing. If you are allowed to take the collar off for cleaning or bathing: ??? Follow instructions from your doctor about how to take off the collar safely. ??? Clean the collar by wiping it with mild soap and water and drying it completely. ??? Take out any removable pads in the collar every 1???2 days. Wash them by hand with soap and water. Let them air-dry completely before you put them back in the collar. ??? Check your skin under the collar for redness or sores. If you see any, tell your doctor. Managing pain ??? Take lqxw-lax-skyuasz and prescription medicines only as told by your doctor. ??? If told, put ice on the painful area. To do this: ??? If you have a soft neck collar, take if off as told by your doctor. ??? Put ice in a plastic bag. ??? Place a towel between your skin and the bag. ??? Leave the ice on for 20 minutes, 2???3 times a day. ??? Take off the ice if your skin turns bright red. This is very important. If you cannot feel pain, heat, or cold, you have a greater risk of damage to the area. ??? If using ice does not help, you can try using heat. Use the heat source that your doctor recommends, such as a moist heat pack or a heating pad. ??? Place a towel between your skin and the heat source. ??? Leave the heat on for 20???30 minutes. ??? Take off the heat if your skin turns bright red. This is very important. If you cannot feel pain, heat, or cold, you have a greater risk of getting burned. ??? You may try a gentle neck and shoulder rub (massage). Activity ??? Rest as needed. ??? Return to your normal activities when your doctor says that it is safe. ??? Do exercises as told by your doctor or physical therapist. ??? You may have to avoid lifting. Ask your doctor how much you can safely lift. General instructions ??? Use a flat pillow when you sleep. ??? Do not drive while wearing a soft neck collar. If you do not have a soft neck collar, ask your doctor if it is safe to drive while your neck heals. ??? Ask your doctor if you should avoid driving or using machines while you are taking your medicine. ??? Do not smoke or use any products that contain nicotine or tobacco. If you need help quitting, ask your doctor. ??? Keep all follow-up visits. Contact a doctor if: ??? Your condition does not get better with treatment. Get help right away if: ??? Your pain gets worse and medicine does not help. ??? You lose feeling or feel weak in your hand, arm, face, or leg. ??? You have a high fever. ??? Your neck is stiff. ??? You cannot control when you poop or pee (have incontinence). ??? You have trouble with walking, balance, or talking. Summary ??? Cervical radiculopathy means that a nerve in the neck is pinched or bruised. ??? A nerve can get pinched from a bulging disk, arthritis, an injury to the neck, or other causes. ??? Symptoms include pain, tingling, or loss of feeling that goes from the neck to the arm or hand. ??? Weakness in your arm or hand can happen in very bad cases. ??? Treatment may include resting, wearing a soft neck collar, and doing exercises. You might need to take medicines for pain. In very bad cases, shots or surgery may be needed. This information is not intended to replace advice given to you by your health care provider. Make sure you discuss any questions you have with your health care provider. Document Revised: 09/29/2021 Document Reviewed: 09/29/2021 b3 bio Patient Education ?? 2022 [employer]. Follow Up Care 08/31/2023 02:03:34 With:Follow up with primary care provider Address: When: only if needed Physician Emergency department Note * Magdy Reddy MD: PERFORM, MODIFY Event Display: ED Note Physician Authored Date: [id number] NIKITA BEVERLY :1965 Age:58 years Sex:Female Visit Date:08/31/2023 Primary Care Physician: Glenys Hernandez APRN Basic Information Time Seen: Magdy Reddy MD / 08/31/2023 02:08 Chief Complaint Pt reports L shoulder pain x 1 week. Pain radiates down to hand with swelling present to L elbow. Pain worse with movement. Flexeril and Tylenol taken at home with no improvement. +2 L radial pulse. History Of Present Illness: 58-year-old female??presents tonight because of a 1 week history of pain??from the left trapezius muscle to the left shoulder and down her left??arm to her hand. ??She feels that her arm??elbow and anterior to shoulder towards the chest is swollen??subjectively. ??She does not recall any trauma.?? No chest pain per se but it??hurts anterior to her left shoulder.?? Patient reports that she is on Social Security because of neuropathy.?? Specifically has some burning in her arms and legs but this feels different.?? There is no weakness associated, turning her head to the??once every other can make her left shoulder and left trapezius muscle hurt.?? No reported fever no rash noted.?? Has not seen her doctor about this. ??She sees somebody in [facility].?? She is on gabapentin for her neuropathy also on??omeprazole.?? She??has taken some Tylenol and Flexeril but??still bothers her.?? Has difficulty??abducting her left arm because of the pain.?? I found records from 20 years ago where the patient had an MRI of her C-spine and left shoulder because of left upper extremity pain.?? There was no significant pathology??other than perhaps some tendinopathy of the rotator cuff back then.?? Patient also reports that throughout the years she has been to physical therapy??for this??neck and shoulder pain. ??But the last time she did physical therapy specifically for this would have been about 2 years ago. Review of Systems: Per HPI Physical Exam Vitals & Measurements T:??36.5?C ??(Temporal Artery)?? HR:??92??(Monitored)?? RR:??20?? BP:??145/75?? SpO2:??99%?? WT:??107.05??kg?? Pain Score:??6?? O2 Therapy:??Room air?? General:??alert,??no acute distress.?? Obese female??does not look septic. ??No respiratory distress. ??No objective signs of swelling??on her arm, it appears quite comparable to the??right side. Skin:??warm,??dry.?? No signs of shingles in the left arm. Head:??no??trauma,??normocephalic. Neck:??trachea??midline,??no??adenopathy,?? no C-spine tenderness per se but some left trapezius muscle pain and tenseness. Eye:??normal??conjunctiva, sclera??clear. Cardiovascular:??regular??rate and rhythm,??normal??peripheral perfusion. Respiratory: lungs??CTA, respirations??non-labored. Chest wall:??no??deformity.?? I do not see any objective swelling. ?? Extremities:??no??deformity,??no??trauma.?? Palpation of the left trapezius left??glenohumeral area??over lying the deltoid ligament is tender to palpation. ??She can do abduction to about 80 degreesbut it is limited by pain.?? It is difficult for her to bring her hand??and back of her head on theleft side.?? The??left elbow wrist and hand are normal she has a normal??radial pulse.?? No swelling no signs of DVT of the left upper extremity.?? Normal grasp??strength of left hand Neurological:??oriented??x 4, LOC??appropriate for age??, speech??normal. Psychiatric:??cooperative, affect??appropriate for age?? Medical Decision Making: Medical Decision-Making: ?? Tests in the radiology section of CPT??: ordered and reviewed -??Yes ?? Review and summarize past medical records -??Yes ?? Independent visualization of images, tracings, or specimens? Yes ?? Differential diagnoses includes left trapezius??muscle strain, cervical radiculopathy,??deltoid bursitis??or tendinitis to the shoulder.?? No signs of DVT or arterial insufficiency or??I do not thinkit is a herniated disc. ??This does not appear to be cardiogenic either. ?? Here the patient was given a Celebrex and prednisone. ??X-rays were done of chest and shoulder which were unremarkable.?? He is discharged in stable condition.?? Patient reports an allergy to ibuprofen but when asked to specify she states that it upsets her stomach, it is not a true allergy. ?? Patient reports that she actually is followed at the pain clinic in [facility] and??she will be getting a stimulator because of chronic pain in her back.?? She has had back pain for 8 years for which she eventually will be getting a stimulator.?? I suggest that she follow-up with her??spine doctor to discuss??injections for her neck pain. ??Discharged in stable condition ? Procedure No Qualifying Data Assessment/Plan 1.??Left cervical radiculopathy??M54.12 Ordered: CeleBREX 100 mg oral capsule, 100 mg = 1 cap, Oral, BID, X 10 days, # 20 cap, 0 Refill(s), :41:00 EDT, Pharmacy: [id number], 160, cm, 02/16/22 19:32:00 EST, Height/Length Dosing,107.05, kg, 08/31/23 2:10:00 EDT, Weight Dosing predniSONE 10 mg oral tablet, See Instruction, Oral, Daily, 5 tabs for 3 days, 4 tabs daily x3 days, 3 tabs daily x3 days, 2 tabs daily x3 days, 1 tab daily x3 days, # 45 cap, 0 Refill(s), Pharmacy: [facility]156, 160, cm, 02/16/22 19:32:00 EST, Height/Length Dosing, 107.0... Discharge Patient, 08/31/23 2:53:00 EDT, Home Independently, Constant Indicator ED Visit Follow Up [facility], Orders for future visit, 08/31/23 2:41:00 EDT Physical Therapy, Left cervical radiculopathy Strain of left trapezius muscle ?? 2.??Strain of left trapezius muscle??S46.812A Ordered: CeleBREX 100 mg oral capsule, 100 mg = 1 cap, Oral, BID, X 10 days, # 20 cap, 0 Refill(s), :41:00 EDT, [facility], 160, cm, 02/16/22 19:32:00 EST, Height/Length Dosing,107.05, kg, 08/31/23 2:10:00 EDT, Weight Dosing predniSONE 10 mg oral tablet, See Instruction, Oral, Daily, 5 tabs for 3 days, 4 tabs daily x3 days, 3 tabs daily x3 days, 2 tabs daily x3 days, 1 tab daily x3 days, # 45 cap, 0 Refill(s), Pharmacy: [id number], 160, cm, 02/16/22 19:32:00 EST, Height/Length Dosing, 107.0... Discharge Patient, 08/31/23 2:53:00 EDT, Home Independently, Constant Indicator ED Visit Follow Up [facility], Orders for future visit, 08/31/23 2:41:00 EDT Physical Therapy, Left cervical radiculopathy Strain of left trapezius muscle ?? Orders: XR Chest 1 View, 08/31/23 2:26:00 EDT, Stat, Reason: chest pain, Transport Mode: Stretcher, Exam jenniffer performed outside organization? XR Shoulder Complete 2+ Views Left, 08/31/23 2:26:00 EDT, Stat, Reason: pain, Transport Mode: Stretcher, Exam to be performed outside organization? Patient Education Shoulder Pain Cervical Radiculopathy, Mqvt-uq-[id number] Follow Up With When Contact Information Follow up with primary care provider Only if needed Additional Instructions: Medication Reconciliation New Prescription celecoxib (CeleBREX 100 mg oral capsule)1 Capsules Oral (given by mouth) 2 times a day for 10 Days.Refills: 0. ?? predniSONE (predniSONE 10 mg oral tablet)See Instruction Oral (given by mouth) every day. 5 tabs for 3 days, 4 tabs daily x3 days, 3 tabs daily x3 days, 2 tabs daily x3 days, 1 tab daily x3 days. Refills: 0. ?? Unchanged albuterol (Albuterol (Eqv-ProAir HFA) 90 mcg/inh inhalation aerosol) ?? cyclobenzaprine (cyclobenzaprine 10 mg oral tablet)1 tab Oral (given by mouth) 3 times a day as needed as needed for muscle spasm. ?? fluticasone (Flovent Diskus 100 mcg inhalation powder)2 Puffs Inhale (breathe in) 2 times a day. ?? gabapentin ?? Milligrams 2 times a day. ?? SUMAtriptan (SUMAtriptan 50 mg oral tablet)1 tab Oral (given by mouth) every day as needed as needed for migraine headache. may repeat dose after 2 hours up to a maximum of 200 mg in 24 hours. Problem List/Past Medical History Ongoing Acute herpes simplex pharyngitis Agoraphobia BMI 39.0-39.9,adult Chest pain, atypical Cigarette smoker Cluster headache Depression Gait abnormality GERD (gastroesophageal reflux disease) Glaucoma Hyperlipemia Migraine headache PATRICIA (obstructive sleep apnea) Pain in hip Pain of left calf Peripheral neuropathy Sciatica, left side Sleep apnea Somatization disorder Historical No qualifying data Medication Administration Given CeleBREX, 100 mg, Oral predniSONE, 60 mg, Oral Allergies acetaminophen-oxycodone codeine??(Nausea) naproxen??(Oedema) penicillins??(Other) traMADol Social History Alcohol Never Electronic Cigarette/Vaping Electronic Cigarette Use: Never. Home/Environment Lives with Children. Living situation: Home/Independent. Nutrition/Health Caffeine intake amount: 1 cup 20 oz of coffee daily. Substance Use Never Tobacco Former tobacco user Tobacco Use:. quite cold turkey 21 days ago per day. Referral Orders ED Visit Follow Up [facility], Orders for future visit, 08/31/23 2:41:00 EDT Physical Therapy, Left cervical radiculopathy Strain of left trapezius muscle Diagnostic Results Diagnostic Study Interpretation: Chest and shoulder x-rays interpreted by me is unremarkable. Electronically Signed on 08/31/2023 02:54 EDT Magdy Reddy MD Electronically Signed on 08/31/2023 02:54 EDT Magdy Reddy MD Emergency department Discharge instructions * Magdy Reddy MD: PERFORM Event Display: ED Discharge Information Authored Date: [id number] NIKITA BEVERLY :1965 Age:58 years Sex:Female Visit Date:08/31/2023 Primary Care Physician: Glenys Hernandez APRN Discharge Instructions We would like to thank you for allowing us to assist you with your healthcare needs. The following includes patient education materials and information regarding your injury/illness. Diagnosis from Today's Visit Left cervical radiculopathy Strain of left trapezius muscle Discharge Vitals Temperature??(Temporal Artery) 97.7 ??F (36.5 ??C) Heart Rate??(Monitored) 92 Respiratory Rate?? 20 Blood Pressure?? 145/75?? SpO2?? 99% Weight?? 236.05 lb (107.05 kg) Allergies acetaminophen-oxycodone codeine??(Nausea) naproxen??(Oedema) penicillins??(Other) traMADol What to Do Next Instructions from Your Care Team The pain down the arm appears to be??due to??strain and spasm of the trapezius muscle??which is themuscle that attaches from your spine to your shoulder??which causes some impingement of the nerves that go down your left arm.?? See physical therapy??referral, he also sent a??referral to physical therapy here at the hospital.?? You can call them at [phone] or see any physical therapy of your choice.?? Prescription for Celebrex to help the inflammation and pain as well as a??short course of prednisone sent to your pharmacy.?? You can continue the??Tylenol and Flexeril also. You Need to Schedule the Following Appointments Follow Up with??Follow up with primary care provider When:??Only if needed You were treated today on an emergency [...] Much When Why Instructions Next Dose New celecoxib (CeleBREX 100 mg oral capsule) 1 Capsules Oral (given by mouth) 2 times a day Left cervical radiculopathy Strain of left trapezius muscle Duration: 10 Days Pickup at [facility] 415 New predniSONE (predniSONE 10 mg oral tablet) See Instruction Oral (given by mouth) Every day Left cervical radiculopathy Strain of left trapezius muscle 5 tabs for 3 days, 4 tabs daily x3 days, 3 tabs daily x3 days, 2 tabs daily x3 days, 1 tab daily x3days ?? Pickup at [place] [address] Unchanged albuterol (Albuterol (Eqv-ProAir HFA) 90 mcg/ inh inhalation aerosol) Unchanged cyclobenzaprine (cyclobenzaprine 10 mg oral tablet) 1 tab Oral (given by mouth) 3 times a day as needed for as needed for muscle spasm Unchanged fluticasone (Flovent Diskus 100 mcg inhalation powder) 2 Puffs Inhale (breathe in) 2 times a day Unchanged gabapentin Unchanged omeprazole 40 Milligrams 2 times a day Unchanged SUMAtriptan (SUMAtriptan 50 mg oral tablet) 1 tab Oral (given by mouth) Every day as needed for as needed for migraine headache may repeat dose after 2 hours up to a maximum of 200 mg in 24 hours ?? Pharmacy Information [place] [address]: [address] [place] [address] [phone] [employer] Shoulder Pain Many things can cause shoulder pain, including: ? An injury to the shoulder. ? Overuse of the shoulder. ? Arthritis. The source of the pain can be: ? Inflammation. ? An injury to the shoulder joint. ? An injury to a tendon, ligament, or bone. Follow these instructions at home: Pay attention to changes in your symptoms. Let your health care provider know about them. Follow these instructions to relieve your pain. If you have a removable sling: ? Wear the sling as told by your provider. Remove it only as told by your provider. ? Check the skin around the sling every day. Tell your provider about any concerns. ? Loosen the sling if your fingers tingle, become numb, or become cold. ? Keep the sling clean. ? If the sling is not waterproof: ? Do not let it get wet. ? Remove it to shower or bathe. ? Move your arm as little as possible, but keep your hand moving to prevent swelling. Managing pain, stiffness, and swelling ? If told, put ice on the painful area. ? If you have a removable sling or immobilizer, remove it as told by your provider. ? Put ice in a plastic bag. ? Place a towel between your skin and the bag. ? Leave the ice on for 20 minutes, 2???3 times a day. ? If your skin turns bright red, remove the ice right away to prevent skin damage. The risk of damageis higher if you cannot feel pain, heat, or cold. ? Move your fingers often to reduce stiffness and swelling. ? Squeeze a soft ball or a foam pad as much as possible. This helps to keep the shoulder from swelling. It also helps to strengthen the arm. General instructions ? Take pznb-[id number] and prescription medicines only as told by your provider. ? Exercise may help with pain management. Perform exercises if told by your provider. ? You may be referred to a physical therapist to help in your recovery process. ? Keep all follow-up visits in order to avoid any type of permanent shoulder disability or chronic pain problems. Contact a health care provider if: ? Your pain is not relieved with medicines. ? New pain develops in your arm, hand, or fingers. ? You loosen your sling and your arm, hand, or fingers remain tingly, numb, swollen, or painful. Get help right away if: ? Your arm, hand, or fingers turn white or blue. This information is not intended to replace advice given to you by your health care provider. Make sure you discuss any questions you have with your health care provider. Document Revised: 10/27/2022 Document Reviewed: 10/27/2022 [email or web address] Patient Education ?? 2022 [employer] Cervical Radiculopathy Cervical radiculopathy means that a nerve in the neck (a cervical nerve) is pinched or bruised. This can happen because of an injury to the cervical spine (vertebrae) in the neck, or as a normal partof getting older. This condition can cause pain or loss of feeling (numbness) that runs from your neck all the way down to your arm and fingers. Often, this condition gets better with rest. Treatmentmay be needed if the condition does not get better. What are the causes? A neck injury. ? A bulging disk in your spine. ? Sudden muscle tightening (muscle spasms). ? Tight muscles in your neck due to overuse. ? Arthritis. ? Breakdown in the bones and joints of the spine (spondylosis) due to getting older. ? Bone spurs that form near the nerves in the neck. What are the signs or symptoms? Pain. The pain may: ? Run from the neck to the arm and hand. ? Be very bad or irritating. ? Get worse when you move your neck. ? Loss of feeling or tingling in your arm or hand. ? Weakness in your arm or hand, in very bad cases. How is this treated? In many cases, treatment is not needed for this condition. With rest, the condition often gets better over time. If treatment is needed, options may include: ? Wearing a soft neck collar (cervical collar) for short periods of time. ? Doing exercises (physical therapy) to strengthen your neck muscles. ? Taking medicines. ? Having shots (injections) in your spine, in very bad cases. ? Having surgery. This may be needed if other treatments do not help. The type of surgery that is used will depend on the cause of your condition. Follow these instructions at home: If you have a soft neck collar: ? Wear it as told by your doctor. Take it off only as told by your doctor. ? Ask your doctor if you can take the collar off for cleaning and bathing. If you are allowed to takethe collar off for cleaning or bathing: ? Follow instructions from your doctor about how to take off the collar safely. ? Clean the collar by wiping it with mild soap and water and drying it completely. ? Take out any removable pads in the collar every 1???2 days. Wash them by hand with soap and water. Let them air-dry completely before you put them back in the collar. ? Check your skin under the collar for redness or sores. If you see any, tell your doctor. Managing pain ? Take bwkf-trj-luwdbsh and prescription medicines only as told by your doctor. ? If told, put ice on the painful area. To do this: ? If you have a soft neck collar, take if off as told by your doctor. ? Put ice in a plastic bag. ? Place a towel between your skin and the bag. ? Leave the ice on for 20 minutes, 2???3 times a day. ? Take off the ice if your skin turns bright red. This is very important. If you cannot feel pain, heat, or cold, you have a greater risk of damage to the area. ? If using ice does not help, you can try using heat. Use the heat source that your doctor recommends, such as a moist heat pack or a heating pad. ? Place a towel between your skin and the heat source. ? Leave the heat on for 20???30 minutes. ? Take off the heat if your skin turns bright red. This is very important. If you cannot feel pain, heat, or cold, you have a greater risk of getting burned. ? You may try a gentle neck and shoulder rub (massage). Activity ? Rest as needed. ? Return to your normal activities when your doctor says that it is safe. ? Do exercises as told by your doctor or physical therapist. ? You may have to avoid lifting. Ask your doctor how much you can safely lift. General instructions ? Use a flat pillow when you sleep. ? Do not drive while wearing a soft neck collar. If you do not have a soft neck collar, ask your doctor if it is safe to drive while your neck heals. ? Ask your doctor if you should avoid driving or using machines while you are taking your medicine. ? Do not smoke or use any products that contain nicotine or tobacco. If you need help quitting, ask your doctor. ? Keep all follow-up visits. Contact a doctor if: ? Your condition does not get better with treatment. Get help right away if: ? Your pain gets worse and medicine does not help. ? You lose feeling or feel weak in your hand, arm, face, or leg. ? You have a high fever. ? Your neck is stiff. ? You cannot control when you poop or pee (have incontinence). ? You have trouble with walking, balance, or talking. Summary ? Cervical radiculopathy means that a nerve in the neck is pinched or bruised. ? A nerve can get pinched from a bulging disk, arthritis, an injury to the neck, or other causes. ? Symptoms include pain, tingling, or loss of feeling that goes from the neck to the arm or hand. ? Weakness in your arm or hand can happen in very bad cases. ? Treatment may include resting, wearing a soft neck collar, and doing exercises. You might need to take medicines for pain. In very bad cases, shots or surgery may be needed. This information is not intended to replace advice given to you by your health care provider. Make sure you discuss any questions you have with your health care provider. Document Revised: 09/29/2021 Document Reviewed: 09/29/2021 [employer] Patient Education ?? 2022 [employer] Tests Performed Medications and Immunizations Administered Given CeleBREX, 100 mg, Oral predniSONE, 60 mg, Oral Patient/Cyber Reverse Engineer Signature Patient Name:NIKITA BEVERLY I have received this information and my questions have been answered. Patient/Cyber Reverse Engineer Name: Patient/Cyber Reverse Engineer Signature: Relationship to Patient: Witness Name/Signature: Date: Electronically Signed on: 08/31/2023 02:53 EDTSigned by:DEONTE Patient Care team information Care Team Personnel Name: Jacey Amador NP Position: No Access Member Role: Informed Provider Address: Address: [address] [facility] [place] [address]- Care Team Related Persons Name: KAILYN
--- OUTSIDE RECORDS SUMMARY | 2023-11-09 16:47 | XMS_ITS | Encounter Summary ---
[place] [address] Care Team Providers Care Paper Finisher Name Role Phone Justin Juarez MD Primary Care Provider [phone] Encounter Details Date Type Department Care Team (Late Contact Info) Description 05/24/2023 Telephone [facility] [place] [address] Porsha Cherry Social History Tobacco Use Types Packs/Day Years [...] PM EDT documented as of this encounter Miscellaneous Notes * Telephone Encounter - Porsha Cherry - 05/24/2023 9:29 AM EST [facility] 05/24/23 in regards to scheduling a follow up with Minnie Muñoz APRN. Please call [phone]. Note: Follow up to MRI 05/17/23 in e-/ Discuss next steps documented in this encounter Plan of Treatment Upcoming Encounters Date Type Department Care Team (Late Contact Info) Description 12/25/2023 2:00 PM EDT Office [place] [address] Justin Sevilla MD [facility] [place] [address] 01/23/2024 2:00 PM EDT Office Visit [facility] at [facility] [place] [address] Kenneth Martin MD [facility] [place] [address] documented as of this encounter Goals Goal [...] on filedocumented in this encounter Care Teams Paper Finisher Relationship Specialty Start Date End Date Justin Juarez MD [address] [place] [id number] PCP - General Family Medicine 12/29/22 documented as of this encounter
--- OUTSIDE RECORDS SUMMARY | 2023-11-09 16:48 | XMS_ITS | Encounter Summary ---
Author Organization [facility] [place] [address] Care Team Providers Care Proposal Manager Name Role Phone Glenys Hernandez APRN Primary Care Provider [phone] Encounter Details Date Type Department Care Team (Latest Contact Info) Description 03/17/2022 Travel Social History Tobacco Use Types Packs/Day [...] PM EDT Office Visit Plastic Surgery at [place] [phone] Justin Sevilla MD [facility] [place] [address] 01/23/2024 2:00 PM EDT Office Visit [facility] [place] [phone] Kenneth Martin MD [facility] [place] [address] documented as of this encounter Goals Goal [...] on filedocumented in this encounter Care Teams Proposal Manager Relationship Specialty Start Date End Date Glenys Hernandez, JL [address] [facility] [address] PCP - General Family Medicine 09/26/21 12/28/22 documented as of this encounter
--- OUTSIDE RECORDS SUMMARY | 2023-11-09 16:48 | XMS_ITS | Encounter Summary ---
Author Organization [facility] [place] [address] Care Team Providers Care Freight Manager Name Role Phone Nick Menendez MD Primary Care Provider Encounter Details Date Type Department Care Team (Late Contact Info) Description 03/06/2016 External Results Neurology at [place] [phone] Song Allen MD [facility] [place] [place] [address] Social History Tobacco Use Types Packs/Day Years Used Date Smoking Tobacco: Every Day Cigarettes Smokeless Tobacco: Never Comments:smoking cessation i nfo given Alcohol Use Standard Drinks/Week Comments Yes 0 (1 standard drink = 0.6 oz pur e alcohol) occasional Sex and Gender Information Value Date Recorded Sex Assigned at Female 08/19/2020 4:17 PM EDT Gender Identity Female 07/03/2022 4:28 PM EDT Sexual Orientation Straight 08/19/2020 4: 17 PM EDT documented as of this encounter Plan of Treatment Upcoming Encounters Date Type Department Care Team (Late Contact Info) Description 12/25/2023 2:00 PM EDT Office [place] [address] Justin Sevilla MD [facility] [address] PLASTIC SURGERY [place], [place] [id number] 01/23/2024 2:00 PM EDT Office Visit [place] [address] Kenneth Martin MD [facility] [place] [address] documented as of this encounter Procedures Procedure Name Priority Date/Time Associated Diagnosis Comments EMG SCAN Routine 03/06/2016 documented in this encounter Results * Scan Doc: EMG (03/06/2016) Song Allen MD MEDIA MGR SCAN EXT O RDR/RSLT documented in this encounter Visit Diagnoses Not on filedocumented in this encounter Care Teams Freight Manager Relationship Specialty Start Date End Date Nick Menendez MD [address] [place] [id number] PCP - General General Internal Medicine 03/06/1608/12 documented as of this encounter
--- OUTSIDE RECORDS SUMMARY | 2023-11-09 16:48 | XMS_ITS | Encounter Summary ---
Author Organization [facility] [place] [address] Care Team Providers Care Fish Net Maker Name Role Phone Nick Menendez MD Primary Care Provider Reason for Visit * Auth/Cert Specialty Diagnoses / Procedures Referred By Mayda t Referred To Contact Diagnoses SPONDYLOSIS, FORAMINAL STENOSIS Procedures PRO LAMINEC/FACETECT/FORAMIN, LUMBAR 1 SEG PRO LAMINEC/FACETECT/FORAMIN, EACH ADDNL LAMINECTOMY, FACETECTOMY & FORAMINOTOMY,LUMBAR, ONE LEVEL (WRVU 15.37) ADD'L INTERSPACES CX., THORACIC, LUMBAR (WRVU 3.47) Referral ID Status Reason Start Date Expiration Date Visits Re quested Visits Authorized [id number] 1 1 Encounter Details Date Type Department Care Team (Latest Contact Info) Description 08/31/2020 9:31 AM EDT - 08/31/2020 1:47 PM EDT Hospital Encounter Post Acute Care Unit at [facility] [address] [place] [id number] Homar Astudillo MD [address] [facility] [address] [place] [address] Lumbar spondylosis Discharge Disposition: Home Social History Tobacco Use Types Packs/Day Years [...] Sign Reading Time Taken Comments Blood Pressure 146/72 08/31/2020 1:15 PM EDT Pulse 82 08/31/2020 1:15 PM EDT Temperature 35.6 ??C (96.1 ??F) 08/31/2020 1 1:56 AM EDT gown warmer initiated, warm blankets appied to patient Respiratory Rate 16 08/31/2020 1:15 PM EDT Oxygen Saturation 96% 08/31/2020 1:1 5 PM EDT Inhaled Oxygen Concentration - - Weight 98.4 kg (217 lb) 08/31/2020 9:48 AM EDT Height 162.6 cm (5' 4) 08/31/2020 9:48 AM EDT Body Mass Index 37.25 08/31/2020 9:48 AM EDT documented in this encounter Discharge Instructions * Patient Instructions* Therese Arita PA - 08/31/2020 10:16 AM EDT Full recovery will depend on your having a strong, positive attitude, setting small goals for improvement and working steadily to accomplish each goal. FOLLOW UP APPOINTMENTS: You will be scheduled for a follow-up appointment four to six weeks after surgery with a Physician???s Client Service Representative at the surgeon???s office. You will have a follow up appointment with the neurosurgeonin three months. If you have sutures that need to be removed, a suture removal appointment will be made for 10-14 days after surgery. MEDICATIONS: ??? Take your medicine at the time your doctor ordered. ??? Keep a list of your medicines, vitamins, and herbal supplement you take. Keep this list with you at all times. Show it to your caregiver at every visit. Keep the list up-to-date. ??? Ask your caregiver or pharmacist to write an explanation of each medicine you are taking. This should include: why you are taking it, possible side effects, best time of day to take it, what foods to take the medication with or foods to avoid, and when to stop taking it. ??? Only take [id number] or prescription medicine for pain, discomfort or fever as directed by your caregiver. ??? Consult your doctor or pharmacist with any questions. NEW MEDICATIONS AT DISCHARGE: []None []Given prescriptions in office preoperatively OR: Medication Dose/Route/ Frequency Prescription given? Reason for medication Medscape monograph discussed []Yes []No []Yes []No []Yes []No []Yes []No []Yes []No []Yes []No PAIN: ??? It is normal to have pain after your surgery; especially in the lower back. ??? This does not mean that the procedure was unsuccessful or that your recovery will be delayed. ??? Leg aching is also not uncommon. o This is primarily caused by inflammation of the previously compressed nerve. o The discomfort will gradually decrease as the nerve continues to heal. ??? You may also experience muscle spasms across your back and into your legs. ??? Medications will be given to control pain and decrease spasm intensity. ??? Moist heat and/or ice and frequent repositioning may also be helpful. DIET: ??? You may adjust your diet back to normal as your appetite returns. ??? Be sure to drink plenty of fluids, particularly water, and eat whole grain cereals, fruits and fruit juices to combat constipation that is sometimes caused by pain medications. ??? If constipation does occur, an over the counter laxative is acceptable. ??? Call your surgeon if you experience persistent nausea and vomiting. ACTIVITY: ??? Increase your activity slowly. Daily walking is the best exercise. Try to increase your distance a little each day. Go at a pace that doesn???t make you too tired or cause too much pain. ??? It is normal to tire easily for the first week or so after you return home. ??? Swimming after ten to fourteen days is encouraged, if feasible. ??? DO NOT sit for prolonged periods of time for six weeks following your surgery. o Brief periods of time, not to exceed thirty minutes are acceptable (meals or using the bathroom). o Change positions frequently to help eliminate muscle spasm and aching. o When sitting, choose a firm chair that will provide plenty of support. ??? DO NOT lift anything over five pounds. Keep in mind a gallon of milk weighs eight pounds. Do not lift anything that you cannot easily lift with one hand. ??? If you drop something on the floor, pick it up by bending at the knees to lower yourself. DO NOT bend at the waist. ACTIVITY (continued): ??? Sexual relations may be resumed during the recovery period, but positions that strain the back or cause pain should be avoided. ??? Consult your surgeon in regards to your driving status. There are no set time restrictions. Usecommon sense and do not attempt to resume driving until you feel completely comfortable to drive inan uninhibited manner. ??? It is recommended that you do not drive for the first 1-2 weeks or while taking narcotic pain relievers. ??? You may resume other physical activities including work only after consulting with your treating physician. POST ANESTHESIA/SEDATION: ??? You have received medication for sedation and comfort during your procedure. Because these havenot completely left your system, please observe the following precautions: o Plan to relax for the next several hours. o DO NOT drive or operate machinery until the day after your procedure, longer as recommended by your surgeon. o Avoid alcohol for the next 24 hours. o Do not make any important personal or business decisions today. BANDAGE/SHOWERING: ??? You will have Dermabond over the incision (typically a purple glue like substance), with inner sutures that do not need to be removed. The Dermabond will gradually fall off. ??? You may have sutures that require removal. If these are used you will be scheduled for a sutureremoval appointment within 10 to 14 days of the procedure. ??? You may shower after three to five days. ??? Do NOT scrub the incision. ??? Pat the area dry with a towel after showering. ??? Avoid soaking (baths, hot tubs, swimming, etc) until approximately two weeks after your surgery, when your wound is all the way healed. SEEK IMMEDIATE MEDICAL CARE/CALL YOUR SURGEON IF: ??? There is redness, swelling or increasing pain at the wound. SEEK IMMEDIATE MEDICAL CARE/CALL YOUR SURGEON IF (continued): ??? You notice purulent (colored, pus-like) drainage coming from the wound. ??? You notice a foul smell coming from the wound or bandage. ??? You experience urinary problems. ??? You experience any NEW weakness or numbness in your arms or legs. ??? You develop an oral temperature above 101 degrees F. ??? There is a breaking open of the wound. The edges do not stay together after the sutures or tapehas been removed. ??? There is persistent bleeding from an incision. If you have any questions, please call [facility] Neurosurgery at [phone], during business hours of Sunday through Sunday from 8:00 a.m. until 4:00 p.m. In case of emergency during non-business hours, please call the same main number and follow the prompts to page the neurosurgeon yard supervisor cotton gin. SMOKING CESSATION INFORMATION: ??? [place] QUITLINE: ??? [place] QUITLINE: ??? [email or web address] If you smoke, stop now! Smoking may impede healing. MAKE SURE YOU: ??? Understand these instructions. ??? Will seek medical care if you are feeling poor, or get worse. ??? Will call the surgeon???s office with any questions or concerns at : [phone] The above information has been presented or demonstrated. I/we have had the opportunity to ask questions. I/we fully understand the instructions given. I/we have received a copy of this form. documented in this encounter Medications at Time of Discharge Medication Sig Dispensed Refills Start Date End Date albuteroL 90 mcg/actuation HFA Aerosol Inhaler Inhale 2 puffs into the lungs every 4 hours as needed. 07/07/2020 Flovent HFA 44 mcg/actuation HFA Aerosol Inhaler Inhale 2 puffs into the lungs 2 times daily. 08/15/2020 omeprazole (PriLOSEC) 40 mg Capsule, Delayed Release(E.C.) Take 40 mg by mouth daily. 08/15/2020 ascorbic acid (VITAMIN C ORAL) Take 1,000 mg by mouth daily. cholecalciferol, vitD3,/vit K2 (vitamin D3-vitamin K2) 250 mcg (10,000 unit)-45 mcg Capsule Take 1 capsule by mouth daily. valacyclovir HCl (VALACYCLOVIR ORAL) Take 1 tablet by mouth daily as needed. cyanocobalamin, vitamin B-12, (VITAMIN B-12 ORAL) Take by mouth. loratadine (Claritin) 10 mg Tablet Take 10 mg by mouth daily as needed. cyclobenzaprine (FLEXERIL) 5 mg Tablet Take 5 mg by mouth daily as needed. 0 08/04/2015 gabapentin 300 mg Tablet Sustained Release 24 hr Take 900 mg by mouth 4 times daily. traMADoL (Ultram) 50 mg Tablet Take 1-2 tablets by mouth every 6 hours as needed for Pain. 15 tablet 08/31/2020 09/26/2021 SUMAtriptan (Imitrex) 50 mg Tablet Take 50 mg by mouth daily as needed for Migraine (reapeat x 2 prn). 08/15/2020 03/20/2022 riboflavin, Vitamin B2, (Vitamin B2) 100 mg Tablet Take by mouth. 09/26/2021 acetaminophen (Tylenol) 500 mg TabletIndications:h/o liver damage takes rarely Take 500 mg by mouth every 6 hours as needed. Indications: h/o liver damage takes rarely 09/26/2021 triamcinolone (KENALOG) 0.025 % Cream Apply 1 Application topically 2 times daily as needed. 09/26/2021 documented as of this encounter Progress Notes * Aditi Grullon RN - 08/31/2020 1:10 PM EDT Discharge instructions reviewed with pt and pt's ride/friend, Mejia. Both expressed understanding. All questions answered. Paper copy given to pt. * Aditi Grullon RN - 08/31/2020 12:35 PM EDT Pt with frequent coughing after SM weaned to off. Pt alert and wheezing. Pt asked for her albuterolinhaler. It was not in her bag. STORMY Mckeon able to relay message to ELIAS Rincon. Albuterol inhaler performed by pt. Pt stated she felt better after inhaler, LS CTA, pt's coughing decreased. documented in this encounter H&P Notes * Therese Arita PA - 08/31/2020 10:13 AM EDT Patient Name: Aydee Johns Patient Age: 55 y.o. Birthdate: 1965 Admit date: 08/31/2020 Attending Physician: Homar Astudillo MD The patient's history and physical exam have been reviewed and completed. There has been no interval change from that of the pre-operative history and physical exam done within the last 30 days. documented in this encounter Miscellaneous Notes * Op Note - Homar Astudillo MD - 08/31/2020 10:49 AM EDT [facility] Operative Note [facility] [address] [place] [address] Patient Name: Aydee Johns : [id number] MR#: [id number] Case Date: 08/31/2020 Case Scheduled Time: 1053 Surgeon: Surgeon(s) and Role: * Homar Astudillo MD - Primary Therese THOMPSON-C-Assistant Preoperative diagnosis: SPONDYLOSIS, FORAMINAL STENOSIS Postoperative diagnosis: SPONDYLOSIS, FORAMINAL STENOSIS, calcified facet cyst Actual procedure: Left L5-S1 hemilaminectomy medial facetectomy and microsurgical resection of epidural mass (calcified facet cyst). Use of the high-powered operative microscope. Intraoperative fluoroscopy. Anesthesia: General Estimated Blood Loss: * No values recorded between 08/31/2020 10:49 AM and 08/31/2020 11:43 AM * Specimens removed during surgery: None Drains: * No LDAs found * Surgical Closure: Primary Closure - skin incision is completely closed without any wires, karlos, drains or other devices Disposition: awakened from anesthesia, extubated and taken to the recovery room in a stable condition, having suffered no apparent untoward event. Condition: doing well without problems Complications: none (Please see the Surgical Encounter Summary for any Implant and Specimen details pertinent to this patient.) Findings: The mass seen on MRI was a calcified facet cyst with adhesions to the dura that had to becarefully removed under the high-powered operative microscope. There were no complications or problems. There is no CSF seen at any time during the case. There were no motor discharges. Patient tolerated the procedure well. Sponge and needle counts were correct. Her level was confirmed multiple points throughout surgery using intraoperative fluoroscopy. Surgical Indications: Aydee Johns is a 55 y.o. year old female who is suffering from symptoms thought to arise from a mass in the left lateral recess at L5-S1. Preoperatively we thought this was simply spondylosis. Intraoperative findings included calcified facet joint cyst. Please refer to my office notes for details of presentation, findings on exam, and medical decision making. she has requested that we consider surgical treatment of this condition. Pros and cons, rationale and risks, options and alternatives have been thoroughly reviewed. The patient acknowledges the extensive list of risk of this surgery as explained in no uncertain terms. The patient acknowledges that I cannot provide a guarantee regarding the success of the procedure, the avoidance of complication, or the durability of the result. There has been ample opportunity for the patient to ask and have answered any andall questions, seek any additional information needed to make an informed decision, or seek additional professional opinion if desired. Understanding all of this, she requests that we proceed with operation. Procedure Description: Aydee Johns was brought into the operating room. she underwent induction of a general endotracheal anesthetic, positioned prone and padded appropriately. The back was then prepped and draped in usual sterile fashion. We paused to confirm the patient's name and identifying information, site and type of surgery to be performed, presence of films if needed, availability of all anticipated necessary equipment and implants, administration of antibiotics and discussion of allother data relevant and required by the preoperative check-list. Once this had all been confirmed, we proceeded to localize the operative level fluoroscopically. Incision was made in the midline to allow access to the operative level. Dissection of the subcutaneous tissues was carried out using themonopolar electrocautery. A self retaining retractor was inserted. We opened the lumbar fascia in the midline, preserving the interspinous ligament. We then elevated the paraspinal musculature on theleft side at the L 5/S1 level. This was done in the subpereosteal plane. A [place] retractor wasutilized to maintain our exposure. We confirmed our level again with the fluoroscope. We brought inthe high-powered operative microscope. Hemilaminotomy was performed along with a limited medial facetectomy. The ligamentum flavum was opened and removed in piecemeal fashion. Upon opening the ligament it became apparent that the mass buckling down into the lateral recess was a large calcified facet cyst with exuberant synovium and some attachments to the dura. The high-powered operative microscope was required for lysis of these adhesions and mobilization of the calcified cyst. We drilled the soft and remove it with 2 and 3 mm Kerrisons. Foraminotomy was performed with the 2 and 3 mm Kerrison. We widely decompressed the lateral recess using the same technique. We could palpate the posterior margin of the disc space finding it to be smooth and without hiatus or disc herniation. Excellent decompression was accomplished. Please see the Findings section for additional detail. We inspected thoroughly to ensure complete hemostasis. The dura was soft and pulsatile. There was no CSF seen. The retractors were released. The soft tissues were inspected to ensure complete hemostasis. We theninfiltrated the paraspinal musculature, subcutaneous and subcuticular tissues with a mixture of exparel and 0.5% bupivacaine. The wound was flushed thoroughly with antibiotic irrigant. The effluent was crystal clear. Fentanyl epidural anesthetic was instilled. The lumbar fascia was reapproximated with interrupted 2-0 Vicryl sutures. The subcutaneous tissues were closed with inverted 2-0 Vicryl sutures. The subcuticular layer was closed with inverted 3-0 Vicryl sutures. The skin edges were approximated with Dermabond, Benzoin and paper tape. The patient was then allowed to awaken from anesthetic and transferred to the post-anesthesia care unit in stable condition. Infection Bundle used? N/A Therese Arita PA-C was present and assisted with the surgery. She was involved for the entire case. Her presence and availability facilitated exposure and efficient handling of the surgical instrumentation. In short, she allowed the safe and effective performance of this operation. Homar Astudillo MD 08/31/2020 documented in this encounter Plan of Treatment Upcoming Encounters Date Type Department Care Team (Late st Contact Info) Description 12/25/2023 2:00 PM EDT Office Visit [place] [address] Justin Sevilla MD [facility] [place] [address] 01/23/2024 2:00 PM EDT Office Visit Pain and Spine Center at [facility] [place] [phone] Kenneth [place] MD [facility] [place] [address] documented as of this encounter Procedures Procedure Name Priority Date/Time Associated Diagnosis Comments XR FLUORO NO RAD <1HR - OR USE Routine 08/31/2020 11:30 AM EDT LAMINECTOMY, FACETECTOMY & FORAMINOTOMY,LUMBAR, ONE LEVEL (WRVU 15.37) 08/31/2020 10:20 AM EDT SPONDYLOSIS, FORAMINAL STENOSIS documented in this encounter Results * XR Fluoro No Rad <1Hr - OR Use (08/31/2020 11:30 AM EDT) Narrative RAD - 08/31/2020 11:30 AM EDT This exam is auto-finalizing. No interpretation was done. Homar Astudillo MD IMG FLUORO ORDERABLE [place], [place] documented in this encounter Visit Diagnoses Diagnosis Lumbar spondylosis Lumbosacral spondylosis without myelopathy documented in this encounter Administered Medications Inactive Administered Medications - up to 3 most recent administrations Medication Order MAR Action Action Date Dose Rate Site lactated ringers infusion 1,000 mL, at 50 mL/hr, Intravenous, CONTINUOUS, Starting on Sun08/31/20 at 1000, Until Sun08/31/20 at 1348, Day of Surgery (Day of Procedure) New Bag 08/31/2020 10:00 AM EDT 1,000 mLs 50 mL/hr vancomycin (Vancocin) 1 gram vial attach to sodium chloride 0.9% 250 mL vial mate 1,000 mg (1 g), Intravenous, at 250 mL/hr, ONCE, 1 dose, On Sun08/31/20 at 1000, Maximum infusion rate is 1 gram/hour. If flushing of the face, neck, upper body, arms, and/or back occurs decrease infusion rate by 50% to reduce the severity of symptoms. This medication may have an associated drug lab level. Please see MAR for scheduled level. Warning Vesicant/Irritant Medication , Routine New Bag 08/31/2020 10:00 AM EDT 1,000 mg 250 mL/hr documented in this encounter Active and Recently Administered Medications Times are shown in EDT. Scheduled Medication Order 08/29/2020 08/30/2020 08/31/2020 vancomycin (Vancocin) 1 gram vial attach to sodium chloride 0.9% 250 mL vial mate (COMPLETED) 1,000 mg (1 g), Intravenous, at 250 mL/hr, ONCE, 1 dose, On Sun08/31/20 at 1000, Maximum infusion rate is 1 gram/hour. If flushing of the face, neck, upper body, arms, and/or back occurs decrease infusion rate by 50% to reduce the severity of symptoms. This medication may have an associated drug lab level. Please see MAR for scheduled level. Warning Vesicant/Irritant Medication , Routine 1000 (New Bag - Prov ider: Priti Kilgore RN)1100 (Due: Stopped - Provider: Priti Kilgore RN) Continuous Medication Order 08/29/2020 08/30/2020 08/31/2020 lactated ringers infusion (CANCELED) 1,000 mL, at 50 mL/hr, Intravenous, CONTINUOUS, Starting on Sun08/31/20 at 1000, Until Sun08/31/20 at 1348, Day of Surgery (Day of Procedure) 1000 (New Bag - Prov ider: Priti Kilgore RN) PRN Medication Order 08/29/2020 08/30/2020 08/31/2020 BUpivacaine (pf) (Marcaine) (5 mg/mL) 0.5% injection (CANCELED) ONCE PRN, Starting on Sun08/31/20 at 1103, Until Sun08/31/20 at 1347, Intra-Operative (Intra-Procedure), Routine 1103 (Given - Provid er: Homar Astudillo MD - Comment: MIXED WITH EXPAREL 20ML. TOTAL ADMINISATERED: 30ML) BUpivacaine liposome (PF) (Exparel) 1.3 % (13.3 mg/mL) injection for infiltration (CANCELED) ONCE PRN, Starting on Sun08/31/20 at 1104, Until Sun08/31/20 at 1347, Intra-Operative (Intra-Procedure) 1104 (Given - Provid er: Homar Astudillo MD) documented in this encounter Care Teams Fish Net Maker Relationship Specialty Start Date End Date Nick Menendez MD [address] [place] [id number] PCP - General General Internal Medicine 03/06/1608/12 documented as of this encounter
--- OUTSIDE RECORDS SUMMARY | 2023-11-09 16:48 | XMS_ITS | Encounter Summary ---
[place] [address] Care Team Providers Care Worm Picker Name Role Phone JAY Ann, Cassidy Primary Care Provider [phone] Reason for Visit * Reason Onset Date Comments Other 01/24/2016 Other Encounter Details Date Type Department Care Team ([facility] st Contact Info) Description 01/24/2016 [place] [address] Song Allen MD [facility] [place] [address] Other (Other) Social History Tobacco Use Types Packs/Day Years Used Date Smoking Tobacco: Every Day Cigarettes Smokeless Tobacco: Never Comments:smoking cessation i nfo given Alcohol Use Standard Drinks/Week Comments No 0 (1 standard drink = 0.6 oz pur e alcohol) Sex and Gender Information Value Date Recorded Sex Assigned at Female 08/19/2020 4:17 PM EDT Gender Identity Female 07/03/2022 4:28 PM EDT Sexual Orientation Straight 08/19/2020 4: 17 PM EDT documented as of this encounter Miscellaneous Notes * Telephone Encounter - Thi Powell RN - 01/24/2016 4:15 PM EDT Spoke with [facility] transportation, and they will fax over the necessary referral form. * Telephone Encounter - Brooke Thomas - 01/24/2016 12:17 PM EDT Caller: Aydee If not Pt / Relation to pt: Caller Contact Number: [phone] Best time to reach pt back: Anytime Reason for call: Patient called in stating the transportation favian needs the To fill out a PA for the transportation. Patient states we can call [phone] for more information. Patient states she would like a call back to discuss. Before 2:30pm - Informed caller that nurse will call back by the end of the day After 230 pm - Informed caller that if the nurse does not call back by the end of the day they willbe called tomorrow AM - Best number for tomorrow am: documented in this encounter Plan of Treatment Upcoming Encounters Date Type Department Care Team (Late st Contact Info) Description 12/25/2023 2:00 PM EDT Office [place] [address] Justin Sevilla MD [facility] [place] [address] 01/23/2024 2:00 PM EDT Office Visit [place] [address] Kenneth [place] MD [facility] [place] [address] documented as of this encounter Visit Diagnoses Not on filedocumented in this encounter Care Teams Worm Picker Relationship Specialty Start Date End Date Cassidy aWre PA PCP - General Family Medicine 10/12/15 03/05/16 documented as of this encounter
--- OUTSIDE RECORDS SUMMARY | 2023-11-09 16:48 | XMS_ITS | Encounter Summary ---
[place] [address] Care Team Providers Care Brush Stainer Name Role Phone Glenys Hernandez JL Primary Care Provider Reason for Referral * Consultation (Routine) - Closed Specialty Diagnoses / Procedures Referred By Mayda t Referred To Contact Neurology Diagnoses Migraine without status migrainosus, not intractable, unspecified migraine type Medication management contract agreement Jacey Amador APRN [address] [place] [address] [facility] Neurology [address] [place] [phone] Referral ID Status Reason Start Date Expiration Date V isits Requested Visits Authorized [id number] Closed Consult, Test & Treat PCP Updated and/or Approved 10/17/2022 10/17/2023 12 12 Encounter Details Date Type Department Care Team (Latest Contact Info) Description 10/17/2022 Transcribe Orders eDH Incoming Referrals [phone] Jacey Amador APRN [address] [place], [place] [id number] Migraine without status migrainosus, not intractable, unspecified migraine type; Medication management contract agreement Social History Tobacco Use Types Packs/Day Years [...] PM EDT Office [place] [phone] Justin Sevilla MD [facility] [place] [address] 01/23/2024 2:00 PM EDT Office Visit [facility] [place] [phone] Kenneth Martin MD [facility] [place] [address] Scheduled Referrals Name Type Priority Associated Diagnoses Orde r Schedule Referral to Neurology Outpatient Referral Routine Migraine without status migrainosus, not intractable, unspecified migraine type Medication management contract agreement Ordered: 10/17/2022 documented as of this encounter Goals Goal [...] as of this encounter Visit Diagnoses Diagnosis Migraine without status migrainosus, not intractable, unspecified migraine type Medication management contract agreement Reserved for inherently not codable concepts WITHOUT codable children documented in this encounter Care Teams Brush Stainer Relationship Specialty Start Date End Date Glenys Hernandez, JL [address] [place] [address] PCP - General Family Medicine 09/26/21 12/28/22 documented as of this encounter
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
--- OUTSIDE RECORDS SUMMARY | 2023-11-09 16:48 | XMS_ITS | Encounter Summary ---
[place] [address] Care Team Providers Care Mold Burner Name Role Phone Glenys Hernandez APRN Primary Care Provider [phone] Encounter Details Date Type Department Care Team (Late Contact Info) Description 09/20/2021 Telephone Weight and Wellness at [address] [phone] Suzi Reid Social History Tobacco Use Types Packs/Day Years [...] encounter Miscellaneous Notes * Telephone Encounter - Suzi Reid - 09/20/2021 2:23 PM EDT Meghna in Bariatrics calling to get pt scheduled for initial consult with [facility]. States the patient claims she is unable to come in to clinic for appointments and is unable to exercise. Meghna wanted to make sure the provider who is scheduled with this patient is aware of this and encourages communication between departments if necessary documented in this encounter Plan of Treatment Upcoming Encounters Date Type Department Care Team (Late st Contact Info) Description 12/25/2023 2:00 PM EDT Office [place] [address] Justin Sevilla MD [facility] [address] 01/23/2024 2:00 PM EDT Office Visit [place] [address] Kenneth Martin MD [facility] [place] [address] documented as of this encounter Visit Diagnoses Not on filedocumented in this encounter Care Teams Mold Burner Relationship Specialty Start Date End Date Glenys Hernandez APRN [address] [place] [address] PCP - General Family Medicine 09/26/21 12/28/22 documented as of this encounter
--- OUTSIDE RECORDS SUMMARY | 2023-11-09 16:48 | XMS_ITS | Encounter Summary ---
Author Organization [facility] [place] [address] Care Team Providers Care Semiconductor Packages Leak Tester Name Role Phone Glenys Hernandez APRN Primary Care Provider [phone] Encounter Details Date Type Department Care Team ([facility] Contact Info) Description 10/05/2021 Telephone Weight and Wellness at [address] [phone] Светлана Villasenor, MANOJ Social History Tobacco Use Types Packs/Day Years [...] encounter Miscellaneous Notes * Telephone Encounter - Светлана Villasenor CMA - 10/05/2021 4:04 PM EDT [facility] Spinning Operator Pre-telemedicine Visit Phone Note Aydee Johns 1965 [x] Patient was not reached Patient was reached and the following information was reviewed/obtained per protocol: [] Confirmed patient name and date of [] Confirmed ZOOM downloaded and functioning [] ZOOM appointment link sent if no MyDH [] Phone number to be reached is: [phone] REVIEW: [] Review of patient medications completed Have you started on any NEW medications? [] No [] Yes: [] Confirmed preferred pharmacy: [facility] Your provider might ask you what you ate the day prior to the visit Please weigh yourself before the appointment Pedi: Both parent and child need to be present for the visit documented in this encounter Plan of Treatment Upcoming Encounters Date Type Department Care Team (Late st Contact Info) Description 12/25/2023 2:00 PM EDT Office [place] [phone] [facility] [place] [address] 01/23/2024 2:00 PM EDT Office Visit [place] [phone] [facility] [place] [address] documented as of this encounter Visit Diagnoses Not on filedocumented in this encounter Care Teams Semiconductor Packages Leak Tester Relationship Specialty Start Date End Date Glenys Hernandez APRN [address] [place] [address] PCP - General Family Medicine 09/26/21 12/28/22 documented as of this encounter
--- OUTSIDE RECORDS SUMMARY | 2023-11-09 16:48 | XMS_ITS | Encounter Summary ---
[place] [address] Care Team Providers Care Scrubbing Machine Operator Name Role Phone Zoraida Ordoñez MD Primary Care Provider [phone] Reason for Referral * Consultation (Routine) - Closed Specialty Diagnoses / Procedures Referred By Mayda t Referred To Contact General Surgery Diagnoses Weight loss Obesity, unspecified classification, unspecified obesity type, unspecified whether serious comorbidity present Harris Poon MD [address] [place] [address] [facility] Gen Surgery [address] [address] Referral ID Status Reason Start Date Expiration Date V isits Requested Visits Authorized [id number] Closed Consult, Test & Treat PCP Updated and/or Approved 08/15/2021 08/15/2022 6 6 Encounter Details Date Type Department Care Team (Latest Contact Info) Description 08/15/2021 Transcribe Orders eDH Incoming Referrals [phone] Harris Poon MD [address] [place] [address] Weight loss; Obesity, unspecified classification, unspecified obesity type, unspecified whether serious comorbidity present Social History Tobacco Use Types Packs/Day Years [...] PM EDT Office [place] [address] Justin Sevilla MD [facility] [address] PLASTIC [place] [address] 01/23/2024 2:00 PM EDT Office Visit [place] [phone] Kenneth Martin MD [facility] PAIN [place] [address] Scheduled Referrals Name Type Priority Associated Diagnoses Orde r Schedule Referral to Bariatric Surgery Program Outpatient Referral Routine Weight loss Obesity, unspecified classification, unspecified obesity type, unspecified whether serious comorbidity present Ordered: 08/15/2021 documented as of this encounter Visit Diagnoses Diagnosis Weight loss Loss of weight Obesity, unspecified classification, unspecified obesity type, unspecified whether serious comorbidity present documented in this encounter Care Teams Scrubbing Machine Operator Relationship Specialty Start Date End Date Zoraida Ordoñez MD [address] [place] [address] PCP - General Family Medicine 08/13/21 09/25/21 documented as of this encounter
--- OUTSIDE RECORDS SUMMARY | 2023-11-09 16:48 | XMS_ITS | Encounter Summary ---
[place] [address] Care Team Providers Care Message Clerk Name Role Phone Glenys Hernandez APRN Primary Care Provider [phone] Encounter Details Date Type Department Care Team ([facility] Contact Info) Description 01/25/2022 10:30 AM EDT TH Visit (TeleHealth) Weight and Wellness at [address] [address] [facility] [place] [place] [address] Adult BMI 39.0-39.9 kg/sq m Social History Tobacco Use Types Packs/Day Years [...] PM EDT documented as of this encounter Patient Instructions * Patient Instructions* Sita Sandoval RD - 01/25/2022 10:30 AM EDT Nutrition Goals: Continue exercise routine - recumbent bike - continue 5 minutes a day, increase as able slowly Consistent meal routine - use food journal on computer; 12 hour eating window; 3 eating events spaced every 3 hours Choose protein at every eating event; include vegetables Bariatric Drinking Behaviors - separate eating and drinking by 30 minutes; especially focus on before and after meals; continue 48 ounces of water or more sipped slowly through the day outside of meal times; no chugging no gulping documented in this encounter Progress Notes * Sita Sandoval RD - 01/25/2022 10:30 AM EDT Nutrition Intervention for Weight Management Initial RD visit with PENNIE Calloway 1965 Telehealth / telephone visit conducted while patient was at home at the following address: [address] [place] [id number] Weight Today: Wt Readings from Last 3 Encounters: 12/27/21 104.8 kg (231 lb) 10/06/21 105.2 kg (232 lb) 09/26/21 104.3 kg (230 lb) BMI Readings from Last 3 Encounters: 12/27/21 39.65 kg/m?? 10/06/21 39.82 kg/m?? 09/26/21 39.48 kg/m?? Interview: made up mind to stop smoking and just did it; pain is same as usual; take meds; use alarm to separate eating and drinking; remember to sip fluids; Weight Loss History: See previous notes from this freelance writer and [facility] provider for full account Smoking: quit 01/01/22; cold turkey; Typical Dietary Intake: eating all day long since quitting smoking; 3 meals a day, snacks 1-4x/day 8am-11am B: smoothie - peanut butter, blueberries, almond milk, slim fast powder 2 hours later: PBJ 2 hours later: macaroni with meat sauce Potato chips Typical Beverages: fiji water, 1.5L/day; coffee 1x/day; smoothies Appetite/Hunger: [x] feels managed with foods/meals outlined above [] discussed meal/snack schedule adjustment today- see goals [] patient identifies eating for reasons other than hunger- see interview above [x] Current food Tracking - pencil and paper [] discussed potential benefit starting food tracking - see goals Patient Goals from Team: Goals ??? Nutrition - 12/28/21 Nutrition Goals: ??? Continue exercise routine - start recumbent bike when able - continue 5 minutes a day, increaseas able slowly; ??? Consistent meal routine - use food journal on computer; 12 hour eating window; 3 eating events spaced every 3 hours, ??? Choose protein at every eating event; include vegetables ??? Bariatric Drinking Behaviors - separate eating and drinking by 30 minutes; especially focus on before and after meals; continue 48 ounces of water or more sipped slowly through the day outside ofmeal times; no chugging no gulping Bariatric eating behaviors introduced or reviewed: [x] Stop eating at comfortable full point (eating slowly to know, chewing thoroughly) [] Any binging identified? (6 months no binging prior to surgery) [x] Regular meal pattern, avoid grazing, reasonable snack frequency [x] Plan protein at all meals and snacks, eat protein first [] Total water intake [x] eating and drinking by 30 minutes on either side - 100% during meals; [x] Sip rather than gulp [] Reduce coffee intake down to ~1 cup (caffeine) prior to surgery [] Reduce alcohol, ideally avoid [] Currently smoking? [x] Former smoker, quit date: 01/01/22 (2 months nicotine-free prior to surgery) Activity: exercise bike - 5 minutes, every day, increase 7; [x] reviewed current goals [] updated goals Barriers to Change: none identified today Nutrition Goals updated today: (1) consistent meals, space every 3 hours (2) sipping water (3) protein at every eating event, increase vegetable intake Monitor/Evaluate: [x] Needs additional fuv scheduled with this freelance writer in Return in about 1 month (around 02/25/2022) for Paula CHOWDHURY, schedule BSP psych eval. (OR) [x] Currently scheduled for: [x] 1st consecutive monthly nutrition visit [x] 2nd consecutive monthly nutrition visit [x] 3rd consecutive monthly nutrition visit (OR) [x] Patient has met requirement of 3 consecutive monthly nutrition visits but agrees that ongoing support would be helpful and feasible. Above determined to the best ability of this freelance writer. Patient will contact bariatric surgery team for any official determination about about scheduling and insurance requirements ( ) Thank you Sita Sandoval MS LUCIANAN LD 30 minutes were spent in visit today, including contact with patient, chart review, and documentation documented in this encounter Plan of Treatment Upcoming Encounters Date Type Department Care Team (Late st Contact Info) Description 12/25/2023 2:00 PM EDT Office [place] [address] Justin Sevilla MD [facility] [place] [address] 01/23/2024 2:00 PM EDT Office Visit [facility] [place] [phone] Kenneth Martin MD [facility] [place] [address] documented as of this encounter Goals Goal [...] as of this encounter Visit Diagnoses Diagnosis Adult BMI 39.0-39.9 kg/sq m Body Mass Index 39.0-39.9, adult documented in this encounter Care Teams Message Clerk Relationship Specialty Start Date End Date Glenys Hernandez APRN [address] [place] [address] PCP - General Family Medicine 09/26/21 12/28/22 documented as of this encounter
--- OUTSIDE RECORDS SUMMARY | 2023-11-09 16:48 | XMS_ITS | Encounter Summary ---
Author Organization [facility] [place] [address] Care Team Providers Care Restorer Lace And Textiles Name Role Phone JAY Ann, Cassidy Primary Care Provider [phone] Reason for Visit * Reason Comments Obesity Encounter Details Date Type Department Care Team ([facility] Contact Info) Description 10/26/2015 1:30 PM EDT Office Visit General Surgery at [address] [address] Juan David Mcfarlane MD [address] [place] [id number] Morbid obesity due to excess calories; Body mass index (BMI) of 36.0-36.9 in adult; Obstructive sleep apnea; Gastroesophageal reflux disease, esophagitis presence not specified Social History Tobacco Use Types Packs/Day Years [...] Sign Reading Time Taken Comments Blood Pressure 134/70 10/26/2015 1:16 PM EDT Pulse - - Temperature - - Respiratory Rate - - Oxygen Saturation - - Inhaled Oxygen Concentration - - Weight 96.3 kg (212 lb 6.4 oz) 10/26/2015 1:16 P M EDT Height 162.6 cm (5' 4) 10/26/2015 1:16 PM EDT Body Mass Index 36.46 10/26/2015 1:16 PM EDT documented in this encounter Progress Notes * Juan David Mcfarlane MD - 10/26/2015 1:30 PM EDT History of Present Illness: I have been asked by the patient's primary care provider, JAY NGUYEN, to see Aydee Johns for evaluation as a potential candidate for weight loss surgery. Aydee presents to the office today for her bariatric pre-operative assessment. I previously met her at a [facility] informational session on 04/26/15. To summarize, Aydee is a 50 y.o. 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 Her Body mass index is36.46 kg/(m^2). (FOT=634byy, EBW=89lbs). Additional medical problems include obstructive sleep apnea on CPAP, colon polyps, hyperlipidemia, GERD, depression, tobacco abuse, and anxiety. Aydee explainsthat she contracted a viral illness in 2011 while on a trip in [place]. Following that she developedweakness and pain in her lower extremities that is now moving into her upper extremities. She has been on prednisone tapers in the past. Aydee has tried a variety of formal weight loss programs such as Slim fast, Nutrisystem, working with a dietitian, and various other low calorie diets without success. Her neuropathy has made exercising difficult for her. She is considering weight loss surgery because she is his fearful about worsening mobility issues and is hoping that weight loss will allow her to ambulate with greater ease. She is also tired of multiple failures with diet and exercise alone. She is considering the laparoscopic sleeve gastrectomy. Past Medical History Diagnosis Date ??? Anxiety 11/04/2015 ??? Depression 11/04/2015 ??? Elevated cholesterol 11/03/2015 ??? Gastroesophageal reflux 11/03/2015 ??? 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 Morbid obesity 11/04/2015 ??? Obstructive sleep apnea 11/03/2015 ??? Stress disorder, posttraumatic 11/04/2015 Past Surgical History Procedure Laterality Date ??? Appendectomy ??? Cholecystectomy ??? Colectomy ??? Breast reduction surgery Bilateral 12/30/2015 Family History Problem Relation Age of Onset ??? Cancer Mother ??? Breast Cancer Mother ??? Cancer Brother ??? Cancer Cousin Social History Social History ??? Marital status: Single Spouse name: N/A ??? Number of children: N/A ??? Years of education: N/A Social History Main Topics ??? Smoking status: Current Every Day Smoker Packs/day: 0.50 ??? Smokeless tobacco: Never Used Comment: smoking cessation info given ??? Alcohol use No ??? Drug use: No ??? Sexual activity: Not on file Comment: deferred Other Topics Concern ??? Exercise: Patient Reported No ??? Abuse Or Threat: Physical, Sexual, Verbal No ??? Abuse Or Threat: Help Requested By Patient No Social History Narrative Review of Systems General: Denies fever, chills, night sweats, malaise, anorexia, fatigue, or weight loss. She reports good energy levels Eyes: Denies double vision, blurry vision, eye discharge, eye pain. Positive for floaters. ENT: Denies hoarseness, sore throat, trouble swallowing, pain with swallowing, nose bleeds, nasal discharges, poor hearing, ringing in ears, or sour brash taste in mouth. Cardiovascular: Denies chest pains, skipped heart beats, fainting, turning blue on exertion, or difficulty breathing when lying down. Positive for palpitations. Pulmonary: Denies asthma, wheezing, coughing up blood. Positive for sleep apnea but she has a hard time tolerating her CPAP. Positive shortness of breath with activity. Positive for cough. GI: Denies abdominal pain, jaundice, nausea/vomiting, hemorrhoids, anal pain, or change in stools. Denies constipation or diarrhea. Positive for heartburn. : Denies burning on urination, increased frequency of urination, h/o UTI???s, or hesitancy with urinating. Neuro: Denies dizziness, lightheadedness. Positive for migraine-type headaches that she gets once amonth. She has received shots for this in the past. Positive for numbness and tingling in her extremities. She has pain in her lower legs and feet and numbness that radiates into 2 fingers on her hands and face. Psych: Positive for depression and anxiety. Heme: Denies prolonged bleeding or easy bruising. MSK: Denies muscle aches or joint pains. Lymphatics: Positive for extremity swelling. Vitals Office Visit from 10/26/2015 in General Surgery Weight - Scale 96.3 kg (212 lb 6.4 oz) Height 162.6 cm (5' 4) BSA (Calculated - sq m) 2.09 sq meters BMI (Calculated) 36.5 BP 134/70 Physical Exam General: well developed, well nourished, in no acute distress, obese, she is ambulating with cane Head: normocephalic and atraumatic, no sinus tenderness Eyes: PERRLA/EOM intact; conjunctiva and sclera clear Mouth: no deformity or lesions Neck: no masses, thyromegaly, or abnormal cervical nodes Lungs: clear bilaterally to A & P Heart: regular rate and rhythm, S1, S2 without murmurs, rubs, gallops, or clicks Abdomen: bowel sounds positive; abdomen soft and non-tender without masses, organomegaly, or hernias noted well-healed lower midline scar that comes up and goes to the left of the patient's umbilicus. Right upper quadrant incision noted Pulses: pulses normal in all 4 extremities Extremities: no clubbing, cyanosis, edema, or deformity noted with normal full range of motion of all joints Cervical Nodes: no significant adenopathy Psych: alert and cooperative; normal mood and affect; normal attention span and concentration Impression & Recommendations: Problem # 1: MORBID OBESITY Aydee is a 50 y.o. year old female with longstading Class II obesity, obstructive sleep apnea, and Guillain-Robbins?? syndrome that has not been responsive to diet and exercise. She now wishes to proceedwith weight loss surgery. More specifically, she has been considering laparoscopic sleeve gastrectomy. We did discuss the various procedures and risks involved with each. With the sleeve she could expect her final weight to be around 150lbs. We stressed the fact that weight loss surgery is just a tool towards acheiveing her weight loss goal and that it only works when used properly. We also discussed the importance of nutritional followup and need for lifelong vitamin supplementation. At this time we will set her up with the weight loss program through [facility] and the [facility] to begin the process. She understands that she will be required to get down to a BMI of 35 prior to being considered for surgery. I see no medical contraindications to proceeding with bariatric surgery and I look forward to working with Aydee in the future. She will get me copies of her last sleep study and is planning on seeing her primary care physician soon. documented in this encounter Plan of Treatment Upcoming Encounters Date Type Department Care Team (Late st Contact Info) Description 12/25/2023 2:00 PM EDT Office [place] [phone] Justin Sevilla MD [facility] [place] [address] 01/23/2024 2:00 PM EDT Office Visit [place] [address] Kenneth Martin MD [facility] DR PAIN MANAGEMENT [place] [address] documented as of this encounter Visit Diagnoses Diagnosis Morbid obesity due to excess calories Body mass index (BMI) of 36.0-36.9 in adult Body Mass Index 36.0-36.9, adult Obstructive sleep apnea Obstructive sleep apnea (adult) (pediatric) Gastroesophageal reflux disease, esophagitis presence not specified documented in this encounter Care Teams Restorer Lace And Textiles Relationship Specialty Start Date End Date Cassidy Ware PA PCP - General Family Medicine 10/12/15 03/05/16 documented as of this encounter
--- OUTSIDE RECORDS SUMMARY | 2023-11-09 16:48 | XMS_ITS | Encounter Summary ---
[place] [address] Care Team Providers Care Occupational Therapist'S Assistant Name Role Phone Glenys Hernandez APRN Primary Care Provider [phone] Reason for Visit * Reason Onset Date Comments Appointment 12/29/2021 Encounter Details Date Type Department Care Team (Late Contact Info) Description 12/29/2021 Telephone Weight and Wellness at [address] [address] Suzi Reid Appointment Social History Tobacco Use Types Packs/Day Years [...] * Telephone Encounter - Suzi Reid - 12/29/2021 5:13 PM EDT Return in about 2 months (around 02/26/2022) for In person or Zoom, With me. documented in this encounter Plan of Treatment Upcoming Encounters Date Type Department Care Team ([facility] Contact Info) Description 12/25/2023 2:00 PM EDT Office [place] [phone] Justin Sevilla MD [facility] [place] [address] 01/23/2024 2:00 PM EDT Office Visit Pain and Spine Center at [facility] [place] [address] Kenneth Martin MD [facility] [place] [address] documented as of this encounter Goals Goal [...] on filedocumented in this encounter Care Teams Occupational Therapist'S Assistant Relationship Specialty Start Date End Date Glenys Hernandez, MANAGER STAR [address] [place] [address] PCP - General Family Medicine 09/26/21 12/28/22 documented as of this encounter
--- OUTSIDE RECORDS SUMMARY | 2023-11-09 16:48 | XMS_ITS | Encounter Summary ---
[place] [address] Care Team Providers Care Raw Silk Grader Name Role Phone Nick Menendez MD Primary Care Provider Encounter Details Date Type Department Care Team (Late st Contact Info) Description 08/27/2020 External Results Pre-Admission Testing at [facility] [address] [place] [phone] Social History Tobacco Use Types Packs/Day Years [...] PM EDT Office [place] [phone] Justin Sevilla MD [facility] [place] [address] 01/23/2024 2:00 PM EDT Office Visit [place] [phone] Kenneth Martin MD [facility] [place] [address] documented as of this encounter Procedures Procedure Name Priority Date/Time Associated Diagnosis Comments LAB SCAN Routine 08/23/2020 ECG SCAN Routine 08/23/2020 documented in this encounter Results * Scan Doc: Lab (08/23/2020) Historical Provider MD MEDIA MGR SCAN EX T ORDR/RSLT * Scan Doc: ECG (08/23/2020) Historical Provider MD MEDIA MGR SCAN EX T ORDR/RSLT documented in this encounter Visit Diagnoses Not on filedocumented in this encounter Care Teams Raw Silk Grader Relationship Specialty Start Date End Date Nick Menendez MD [address] [address] PCP - General General Internal Medicine 03/06/1608/12 documented as of this encounter
--- OUTSIDE RECORDS SUMMARY | 2023-11-09 16:48 | XMS_ITS | Encounter Summary ---
[place] [address] Care Team Providers Care Expense Analyst Name Role Phone Glenys Hernandez APRN Primary Care Provider [phone] Encounter Details Date Type Department Care Team ([facility] Contact Info) Description 10/13/2021 Telephone [facility] [place] [phone] Manuela Andrews RN Social History Tobacco Use Types Packs/Day Years [...] encounter Miscellaneous Notes * Telephone Encounter - Manuela Andrews RN - 10/13/2021 10:23 AM EDT 10/13/12 10:30 am Faxed MDT PT referral as ordered by Ms Muñoz along with her cliinical note to [facility] PT; [facility] as pt reports she is unable to schedule her therapy because [facility] PT had not recieived the referral. Faxed to [phone] (receipt received). Transferred pt's call to pain triage nurse as pt was reporting that given the delay in starting PT and taking into account their access- she was not going to be able to achieve the requested service in the timeframe expected. Suggested she express the concern to the Pain traige nurse wh could obtain additional detail and then update Ms Muñoz as indicated. documented in this encounter Plan of Treatment Upcoming Encounters Date Type Department Care Team (Late st Contact Info) Description 12/25/2023 2:00 PM EDT Office [place] [phone] Justin Sevilla MD [facility] [place] [address] 01/23/2024 2:00 PM EDT Office Visit [place] [address] Kenneth Martin MD [facility] [place] [address] documented as of this encounter Goals Goal [...] on filedocumented in this encounter Care Teams Expense Analyst Relationship Specialty Start Date End Date Glenys Hernandez APRN [address] [place] [address] PCP - General Family Medicine 09/26/21 12/28/22 documented as of this encounter
--- OUTSIDE RECORDS SUMMARY | 2023-11-09 16:48 | XMS_ITS | Encounter Summary ---
[place] [address] Care Team Providers Care Rag Cutting Machine Tender Name Role Phone Zoraida Ordoñez MD Primary Care Provider [phone] Reason for Referral * Consultation (Routine) - Closed Specialty Diagnoses / Procedures Referred By Mayda t Referred To Contact Pain and Spine Center Diagnoses Sciatica, unspecified laterality Chronic low back pain with sciatica, sciatica laterality unspecified, unspecified back pain laterality Low back & left leg pain/ h/o of lumbar surgery 08/2020w/[facility]/ MRI 01/2021 in [facility] Harris Poon MD [address] [place] [address] [facility] [place] [address] Referral ID Status Reason Start Date Expiration Date V isits Requested Visits Authorized [id number] Closed Consult, Test & Treat PCP Updated and/or Approved 08/15/2021 08/15/2022 6 6 Encounter Details Date Type Department Care Team (Latest Contact Info) Description 08/15/2021 Transcribe Orders [facility] Incoming Referrals [phone] Harris Poon MD [address] [place], [place] [id number] Sciatica, unspecified laterality; Chronic low back pain with sciatica, sciatica laterality unspecified, unspecified back pain laterality Social History Tobacco Use Types Packs/Day Years [...] PM EDT Office [place] [address] Justin Sevilla MD [facility] [place] [address] 01/23/2024 2:00 PM EDT Office Visit [facility] [place] [address] Kenneth Martin MD [facility] [place] [address] Scheduled Referrals Name Type Priority Associated Diagnoses Orde r Schedule Referral to Spine Center Outpatient Referral Routine Sciatica, unspecified laterality Chronic low back pain with sciatica, sciatica laterality unspecified, unspecified back pain laterality Ordered: 08/15/2021 documented as of this encounter Visit Diagnoses Diagnosis Sciatica, unspecified laterality Chronic low back pain with sciatica, sciatica laterality unspecified, unspecified back pain laterality documented in this encounter Care Teams Rag Cutting Machine Tender Relationship Specialty Start Date End Date Zoraida Ordoñez MD [address] [place] [address] PCP - General Family Medicine 08/13/21 09/25/21 documented as of this encounter
--- OUTSIDE RECORDS SUMMARY | 2023-11-09 16:48 | XMS_ITS | Encounter Summary ---
[place] [address] Care Team Providers Care Regional Commercial Sales Manager Name Role Phone Glenys Hernandez APRN Primary Care Provider [phone] Encounter Details Date Type Department Care Team ([facility] Contact Info) Description 11/17/2021 Telephone [place] [id number] Isatu Serna RN Social History Tobacco Use Types Packs/Day [...] encounter Miscellaneous Notes * Telephone Encounter - Isatu Serna RN - 11/17/2021 12:51 PM EDT KARLA left on pain triage phone line by Ashlyn Nunez from Rehab. She wanted to get a message to Minnie Muñoz APRN regarding Aydee. Per the message that Ashlyn left, Aydee attended one of the PT therapy sessions that was set up for her (referral from Ms. Toni APRN). When Aydee found out that the PT was for Nitesh technique, she refused to participate. She went for the evaluation, then called the [facility] rehab and said she won'tbe coming back. If we have any questions we can call Ashlyn at [phone] STORMY Linares documented in this encounter Plan of Treatment Upcoming Encounters Date Type Department Care Team (Late st Contact Info) Description 12/25/2023 2:00 PM EDT [place] [phone] Justin Sevilla MD [facility] [place] [address] 01/23/2024 2:00 PM EDT Office Visit [place] [phone] Kenneth Martin MD [facility] [place] [address] documented as of this encounter Goals Goal [...] on filedocumented in this encounter Care Teams Regional Commercial Sales Manager Relationship Specialty Start Date End Date Glenys Hernandez APRN [address] [place] [address] PCP - General Family Medicine 09/26/21 12/28/22 documented as of this encounter
--- OUTSIDE RECORDS SUMMARY | 2023-11-09 16:48 | XMS_ITS | Encounter Summary ---
Author Organization [facility] [place] [address] Care Team Providers Care Loom Tuner Name Role Phone Glenys Hernandez APRN Primary Care Provider [phone] Reason for Visit * Reason Onset Date Comments Reminder Appointment 11/28/2022 Encounter Details Date Type Department Care Team (Late st Contact Info) Description 11/28/2022 Telephone Neurology at [facility] [place] [address] Pantera Welch MD [facility] [place] [address] Reminder Appointment Social History Tobacco Use Types Packs/Day [...] encounter Miscellaneous Notes * Telephone Encounter - Yoselin Miller CMA - 11/28/2022 9:20 AM EDT Unable to reach this patient by phone to review their medications and allergies prior to their upcoming tele-appointment with the Neurology provider. No message left. documented in this encounter Plan of Treatment Upcoming Encounters Date Type Department Care Team (Late st Contact Info) Description 12/25/2023 2:00 PM EDT Office [place] [address] Justin Sevilla MD [facility] [place] [address] 01/23/2024 2:00 PM EDT Office Visit [facility] [place] [phone] Kenneth Martin MD [facility] [place] [address] documented as of this encounter Goals Goal [...] on filedocumented in this encounter Care Teams Loom Tuner Relationship Specialty Start Date End Date Glenys Hernandez, JL [address] [place] [address] PCP - General Family Medicine 09/26/21 12/28/22 documented as of this encounter
--- OUTSIDE RECORDS SUMMARY | 2023-11-09 16:48 | XMS_ITS | Encounter Summary ---
Author Organization [facility] Address [facility] [place] [id number] Care Team Providers Care Network Director Name Role Phone Glenys Hernandez APRN Primary Care Provider [phone] Reason for Referral * Consultation (Routine) - Closed Specialty Diagnoses / Procedures Referred By Contac t Referred To Contact Weight and Wellness Diagnoses Class 2 severe obesity with serious comorbidity and body mass index (BMI) of 39.0 to 39.9 in adult, unspecified obesity type Codie Weinberg MD [facility] [place] [address] [facility] [address] [place] [address] Referral ID Status Reason Start Date Expiration Date V isits Requested Visits Authorized [id number] Closed Consult, Test & Treat 10/09/2021 10/09/2022 1 1 * Consultation (Routine) - Closed Specialty Diagnoses / Procedures Referred By Contac t Referred To Contact Sleep Center Diagnoses Class 2 severe obesity with serious comorbidity and body mass index (BMI) of 39.0 to 39.9 in adult, unspecified obesity type Codie Weinberg MD [facility] [place] [address] [facility] [address] [place] [address] Referral ID Status Reason Start Date Expiration Date V isits Requested Visits Authorized [id number] Closed Consult, Test & Treat 10/06/2021 10/06/2022 1 1 Reason for Visit * Consultation (Routine) - Closed Specialty Diagnoses / Procedures Referred By Contac t Referred To Contact Weight and Wellness Diagnoses Morbid (severe) obesity due to excess calories morbid obesity Procedures see notes will need diet and psych Cele Salinas APRN [facility] [place] [address] [facility] [address] [place] [phone] Referral ID Status Reason Start Date Expiration Date V isits Requested Visits Authorized [id number] Closed Consult, Test & Treat 09/20/2021 09/20/2022 1 1 Encounter Details Date Type Department Care Team (Late st Contact Info) Description 10/06/2021 11:00 AM EDT TH Visit (TeleHealth) Weight and Wellness at [address] [address] Codie Weinberg MD [facility] DR [address] [facility] [place] [id number] Class 2 severe obesity with serious comorbidity and body mass index (BMI) of 39.0 to 39.9 in adult, unspecified obesity type; Gastroesophageal reflux disease, unspecified whether esophagitis present; Obstructive sleep apnea; Elevated cholesterol; High triglycerides Social History Tobacco Use Types Packs/Day Years [...] - Inhaled Oxygen Concentration - - Weight 105.2 kg (232 lb) 10/06/2021 11:09 AM EDT Pt reported Height - - Body Mass Index 39.82 09/26/2021 1:10 PM EDT documented in this encounter Patient Instructions * Patient Instructions* Codie Weinberg MD - 10/09/2021 9:38 PM EDT Images from the original note were not included. It was a pleasure seeing you Aydee, and I look forward to being an adviser in your weight loss journey. Please obtain labs FASTING and I will message you with any abnormal results and necessary steps.Otherwise we can discuss at our next visit. I have made referrals for the following: [x]Nutrition [x]Sleep Medicine [x][facility] Psychologist - pre bariatric If you were not seen in the office, OUR SURGICAL SERVICES MANAGER WILL CALL YOU TO SCHEDULE THESE VISITS. If you donot hear from us within a week, please call us at: [phone]. Below is some additional information/resources on this disease process: As we discussed, obesity is a complicated, multifactorial disease state, and each individual responds differently to the variety of treatments we can offer you. No one thing works for everyone, but we tailor our treatments based on the pillars of obesity treatment as outlined by the Obesity Medicine Association, see below. Over time we will touch on all of these pillars, and each hospice team lead, will help you set achievable, actionable goals, a.k.a, SMART goals within each of these pillars. (Your SMART goals today, are listed below). For more information on the disease of obesity, associated diseases and intervention, I recommend reviewing the following websites: understanding obesity Home Page - Obesity Action Coalition (yes, politicial action committee, but a castañeda part of their mission is education) Definition & Facts for Adult Overweight & Obesity NIDDK (nih.gov) (similar content about the disease of obesity) Appetite control The weld lay out worker, The GoGetter and The Sleepy Executive [facility] - Eliza video Sleep apnea and weight https://www.sleepfoundation.org/sleep-apnea/ezdfwj-eivo-vwl-sleep-apnea Insulin resistance and weight https://obesitymedicine.org/wjowkaq-kou-cbsremy-resistance/ https://www.secondnature.io/us/guides/diabetes/zjsirhr-notpyuinoc-vcoqiw-gain Dr. Sony Acuna: Fasting as a Therapeutic Option for Weight Loss - YouTube Https://www.youGameMixube.com/watch?v=ys2pfncw2yU https://www.Webinar.ruube.com/watch?v=83Pyu3NpSGA The Mediterranean Diet https://CustomerXPs Software.org/ https://www.health.dawson.edu/blog/o-qfmaicbrs-jfzrn-fb-uih-pfhzjnwiegqxz-diet- 0102933089740 An important thing to remember as you make changes in your life is that they must be sustainable, that is, whatever you do to lose weight, you will need to do to sustain weight loss. As you try new and healthier food/activity/behaviors, assess whether you can make these changes for the long-term. If the answer is, No way, that is impossible! then we will work together to find other actionable goals to try. Most importantly, for this journey you have to be willing to try to make change. If youcan make change, you will be successful. Your specific SMART goals today: Goals Nutrition Keep food log until you are seen by the dieititian. Record everything you eat or drink, include time eaten and any emotional changes that are significant. If you cannot complete this retirement. Bring a log of at least 2 weekdays and one weekend day to review. Below are Healthy Habit guidelines for optimal health that we will help you to achieve OVER TIME. They are big goals that we break down into smaller more achievable SMART goals. We do not expect you to adopt everything all at once or make huge leaps. We don't even expect that you will achieve them all because nobody is perfect! Nutrition: Whole food quality diet, more plants. (See the back page of your Welcome Book). This is a general recommendation for all patients. Your mammalogist and provider will help make more specific recommendations for you if appropriate. Avoid drinking your calories in the form of fruit juice, soda pop or other sweetened beverages. Choose water. Activity: to maintain weight loss evidence supports 360-420 minutes per week (60min daily). Each week, 1 hour of this time should be divided into 2 or 3 sessions of resistance (weight) training. The rest would be cardio. We do not know the threshold for non-structured activity, but if you are taking about 10,000 steps daily, you may be meeting this goal for cardiac activity. You can build to this level slowly and methodically. Your Weight&Wellness team will help you develop a plan that works for you. Sleep: 7-8 hours of restful sleep per night with minimal or no interruptions. If this is not happening, talk to your provider about how we can help. Accountability: most people benefit from some form of accountability. This can be: food tracking - either in an jayesh or on paper, monitoring weight daily or monthly, exercise tracking. Pick something to track. Stress management: managing stress comes in many different forms from meditation to exercise to simply increasing mindfulness throughout the day. Your health school standards coach is well-equipped to guide you to find something to look forward to everyday. Eating behaviors: many people benefit from restricting the hours in which they eat. You can choose an eating window of 8-12 hours to start. Make a pact with yourself that you will not take in anything with caloric content outside this window. Your mammalogist may make further recommendations documented in this encounter Progress Notes * Codie Weinberg MD - 10/06/2021 11:00 AM EDTSummary: 1st THV with Images from the original note were not included. Patient provided verbal consent prior to initiation of this telemedicine encounter and expressed understanding that the telemedicine visit may be billed similar to a clinic visit, pt was seen while via [x] Video [] phone For this video visit, pt is located at: [facility] [place] Patient Name: Aydee Johns Date of : 1965 Age: 56 y.o. Referring provider: Cele Calloway Dear Glenys Hernandez APRN, Cele Calloway Thank you for referring Aydee Johns to the [facility]. Aydee Johns presented to the [facility] for a consultative visit regarding obesity management. The patient presented with WHO Class 2 / EOSS Stage 2 Obesity defined by a BMI of Body mass index is 39.82 kg/m??. and comorbidities:PATRICIA - uses dental piece, hypercholesterolemia, hypertriglyceridemia, GERD, IFG, migraine. Aydee and I discussed and agreed upon the pillars of obesity treatment: nutrition, activity, behavioral change and medication management. Our team will address each of these pillars as we provide ongoing comprehensive obesity care for Aydee. I look forward to collaborating with you and Aydee on this journey. To that end, I will make medication adjustments as appropriate based on the patient's ongoing state of health and provide referrals as they relate to her obesity care. Medications that I often manage include, but are not limited to,anti-obesity meds, diabetic medications and anti-hypertensives. Any medication adjustments I make will be communicated to you to maintain seamless care. For referrals and other specific care plans, see the Assessment and Plan: ASSESSMENT: Aydee Johns is a 56 y.o. female with uncontrolled obesity who presented to [facility] today for medical evaluation with associated co-morbidities as above. Obesity is a multifactorial disease, and in this case, the following factors could be potential contributors: ?? Obesity is caused by hormonal disorder of fat regulation and insulin is the major hormone that drives weight gain. ?? Genetics and Epigenetics: ? ?? Insulin resistance: ? ?? Consumption of sugar and highly refined carbohydrates (processed foods)--consumption of foods that are high in sugar and processed that can lead to metabolic/hormonal changes that can increase body fat by causing insulin resistance. ?? Low intake of fat fighting foods (fruits, vegetables, legumes, nuts, seeds, quality protein) ?? Medications: ?? Sleep Disturbance:+ PATRICIA ?? Disordered Eating: ?? Inactivity ?? Stress and too much cortisol: Prolonged cortisol release associated with chronic stress is strongly correlated with the development of obesity PLAN: CHIEF COMPLAINT: Management of excess weight HISTORY OF PRESENT ILLNESS: Went through [facility] pre bariatric surgery program x 2, even had psych eval through [facility] and given the green light. Weight History: No flowsheet data found. Aydee Johns has had gradual weight gain due to: Immobility - neuropathy in my legs (attributes itto flu shot and TDap which she was allergic to - had GBS and liver damage 2011), a whole lot of back issues. Since 2012, steadily gained. Why is now the time to try again? I am fat, I don't want to be fat. It is going to be better on my hips on my feet. Barriers to success: Immobility - walks w cane, states I have one good arm. Impact on life: Significant Weight hx: Onset: 2011 Max wt: 232 lbs Lowest wt and when: 170 lbs Successful attempts in the past: None - has tried Slim Fast What was helpful from that/those programs? Nothing Family Hx of Obesity? Unclear Hx medications to treat obesity: Tried Adipex 37.5 mg 2016 Hx metabolic surgery: None Initial weight 10/09/21: 232 lbs Initial Body mass index is 39.82 kg/m??. Goal weight: 145 - 150 lbs 10% loss: 23.2 lbs Other goals: No flowsheet data found. Obesogenic medications: Gabapentin Obesity related co-morbidities: PATRICIA - uses dental piece, hypercholesterolemia, hypertriglyceridemia, GERD, IFG. No flowsheet data found. 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 Unclear? Has appliance []S []T []O []P []B []A []N []G: Not sure if she's snores, lives alone. Wakes up coughing/gasping. + daytime sleepiness. No falling asleep while driving. No HTN. Sometimes wakes up more tired. No flowsheet data found. Daily Routine Time to Bed? 1130-12 PM Time to Sleep? Sometimes up all night bc of pain. When do you wake? 9 AM - not hungry - Jade's coffee - chocolate Frappacino Eating episode #1 1030 Fruit salad Eating episode #2 when hungry - Roasted vegys and stekasandra Notes she is not a real big eater, enjoys smoothies, likes to drink over eating. Only one smoothie a day. Trying to limit eating to 5 pm. Snacking? Potato chips - every now and then, will eat with sandwich. After dinner eating? Trying not to. Eating before bed to sleep? Only if stomach is growling What do you drink? Not a big fan of water Food Behaviors Appetite: Reasonable Satiety/Fullness: One plate Cravings? Chips Eating out of: [x]Hunger []Habit []It's time. []Boredom []Emotions Eating patterns: [x] Mindless eating - in front of TV [] binge eating [x] Grazing ?unclear [] skipsmeals [x] Night eating - sometimes chips Movement: No flowsheet data found. Is ambulation limited most or all of the time? Walks with cane, working with PT, supposed to work with crutches. Tolerance: she can climb a flight of stairs? YES but hard to do pain Purposeful exercise now? PT Activity enjoyed in past? Used to be at the gym all the time Stress: Unclear Work - on disability Family support - No Social support - Friend with her at visit Self-monitoring: [] Daily or weekly weights [] Food log/jayesh [] Other [x] None currently REVIEW OF SYSTEMS: Positives as below Review of Systems No flowsheet data found. [facility] PHQ-2 08/27/2015 Over the LAST 2 WEEKS, how often have you been bothered by little interest or pleasure in doing things? More than half the days Over the LAST 2 WEEKS, how often have you been bothered by feeling down, depressed, or hopeless? Nearly every day PHQ-2 Score 5 (Full PHQ-9 indicated) No flowsheet data found. MEDICAL HISTORY Medical and Surgical History: Reviewed. Past Medical History: Diagnosis Date ??? Anxiety 11/04/2015 ??? Asthma ??? Depression 11/04/2015 ??? Difficult intubation Does not know what exactly ??? Elevated cholesterol 11/03/2015 ??? Gastroesophageal reflux 11/03/2015 ??? 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 Liver disease resolved ??? Mental health problem Anxiety, Depression, PTSD ??? Morbid obesity 11/04/2015 ??? Motion sickness ??? Neuropathy involving both lower extremities Knee to feet bilaterally secondary to Gilda [place], decreased sensation to kimberly arms as well ??? Obstructive sleep apnea 11/03/2015 ??? Stress disorder, posttraumatic 11/04/2015 Medication C/I: Any h/o pancreatitis? NO Any h/o kidney stones? NO Any h/o or FHx of thyroid CA (MTC?) NO Any h/o kidney disease/failure? NO Any h/o glaucoma? YES - had laser procedure Gynecologic: using/taking reliable contraception? Menopause Family History: Reviewed. No flowsheet data found. Family History Problem (# of Occurrences) Relation (Name,Age of Onset) Breast Cancer (1) Mother (dylan) Cancer (3) Mother (dylan), Brother, Cousin Social History: /Partner? Children? One 40 year old son Smoking? Down to 7 cigs from 1 ppd x 40 years; on patch as well ETOH? NO Other substances? Yes - hemp and THC gummies No flowsheet data found. VITAL SIGNS: Vitals: 10/06/21 1109 Weight: 105.2 kg (232 lb) Body mass index is 39.82 kg/m??. PHYSICAL EXAM: Gen: 56 y.o. year old female with obesity who appears stated age. NAD. + central obesity Appearance: appropriate, well-kempt Psych: pleasant, conversant and engaged, normal affect, cognition and mood. PREVIOUS LABS AND IMAGING: Reviewed Last CBC Lab Results Component Value Date PLATELET 318 08/29/2021 Last CMP Lab Results Component Value Date NA 142 08/29/2021 K 4.0 08/29/2021 CL 104 08/29/2021 CO2 28 08/29/2021 BUN 12 08/29/2021 CREATININE 0.8 08/29/2021 GLUCOSE 110 (H) 08/29/2021 CALCIUM 9.1 08/29/2021 ESTGFR >60 08/29/2021 Lab Results Component Value Date ALT 23 08/29/2021 AST 13 (L) 08/29/2021 ALKPHOS 79 08/29/2021 BILITOT 0.5 08/29/2021 ALBUMIN 4.2 08/29/2021 PROT 7.4 08/29/2021 Lipid Panel Lab Results Component Value Date CHLPL 311 (H) 08/29/2021 HDL 46 08/29/2021 TRIG 308 (H) 08/29/2021 LDLCHOL 204 (H) 08/29/2021 Last 3 Hemoglobin A1Cs No results found for: HA1C Latest TSH No results found for: TSH No results found for: LABINSU No results found for: GLUCFASTING No results found for: FERRITIN No results found for: XDFILCEL08 No results found for: 25OHVITD Liver Fibrosis Score (Fib 4) was 0.49 at 10/09/2021 9:37 PM Risk of Fibrosis Low Intermediate High NAFLD Less than 1.3 1.3-2.67 Greater than 2.67 Hepatitis C Less than 1.45 1.45-3.25 Greater than 3.25 INITIAL EVALUATION: FACTORS CONTRIBUTING TO OBESITY/INTERVENTION Risk Stratification: possible insulin resistance, possible PATRICIA Obesogenic meds: Neuropathic pain control Plan: No change at this time Co-morbidities to address: Anxiety, Depression, GERD, Hyperlipidemia, PATRICIA- untreated and Smoker AOM: Deferred decision making until f/u. Medication considerations: []insulin sensitizing meds []phentermine []topiramate []bupropion []naltrexone Factors contributing to decision making: NO hx of pancreatitis, NO Fam or personl hx of medullary thyroid ca, NO hx of kidney stones, Hx of glaucoma/regular eye check ONGOING INTERVENTIONS Referrals: Dietitian, Sleep medicine For specific behavioral interventions, see goals Nutrition: discussed whole food, quality diet; specific recommendations per RD Prebariatric counseling Behavior: Mindless Eating Activity: provided resistance bands and booklet, Works with PT Barriers: []needs cardiac eval [x]injury/pain preventing activity right now Stress Management:no concerns Sleep: concern for PATRICIA, refer to sleep med Self-monitoring: Food log Discussion 10/09/21: Pillars, BSP requirements, particularly smoking cessation, treatment of PATRICIA, etc. Diagnoses and all orders for this visit: Class 2 severe obesity with serious comorbidity and body mass index (BMI) of 39.0 to 39.9 in adult,unspecified obesity type - Referral to Sleep Disorders Center Gastroesophageal reflux disease, unspecified whether esophagitis present Obstructive sleep apnea Elevated cholesterol High triglycerides Orders Placed This Encounter Procedures ??? Ferritin ??? Glucose, fasting ??? Hemoglobin A1c ??? Insulin, total ??? TSH ??? Vitamin B12 ??? Vitamin D, 25-Hydroxy ??? Folate, serum ??? Iron and TIBC ??? PTH ??? Vitamin B1, whole blood ??? Referral to Sleep Disorders Center No follow-ups on file. I spent a total of 45 minutes in [id number]-[id number] discussion/counseling regarding the diagnosis of obesity, interventions for treatment, and obesity related co- morbidities as well as documentation of visit and chart review, including notes, labs, and other evaluations as reviewed below. Goals Addressed This Visit's Progress ??? Nutrition Keep food log until you are seen by the dieititian. Record everything you eat or drink, include time eaten and any emotional changes that are significant. If you cannot complete this retirement. Bring a log of at least 2 weekdays and one weekend day to review. Care pathway: Pathway: [facility] PATHWAY - ADULT 10/09/2021 Pre- Bariatric Surgery Activate I spoke with Aydee about opportunities to participate in research and to be contacted by our research quality assistant. They indicated that they are: [] INTERESTED [] NOT INTERESTED // [x] NOT ADDRESSED [facility] Initial Responses 09/26/2021 PHQ-2 SubScore - PHQ-9 Total Scores - Schooling Some college or technical school URICA: <8 Precontemp, 8-12 Contemp, 12+ Prep TFEQ: Look at transformed scores, average is 50, +/-2SD is sigfnif, consider referral >70 WEL-SF: Range 0-80, higher = better PROMIS Avg score = 50 REAP score 13-39, higher = more diversity in diet, better documented in this encounter Plan of Treatment Upcoming Encounters Date Type Department Care Team (Late st Contact Info) Description 12/25/2023 2:00 PM EDT Office [place] [address] Justin Sevilla MD [facility] [place] [address] 01/23/2024 2:00 PM EDT Office Visit [place] [phone] Kenneth Martin MD [facility] [place] [address] Scheduled Referrals Name Type Priority Associated Diagnoses Orde r Schedule Referral to Sleep Disorders Center Outpatient Referral Routine Class 2 severe obesity with serious comorbidity and body mass index (BMI) of 39.0 to 39.9 in adult, unspecified obesity type Ordered: 10/06/2021 Amb Referral to [facility] Psych Evaluation Outpatient Referral Routine Class 2 severe obesity with serious comorbidity and body mass index (BMI) of 39.0 to 39.9 in adult, unspecified obesity type Ordered: 10/09/2021 documented as of this encounter Goals Goal [...] as of this encounter Visit Diagnoses Diagnosis Class 2 severe obesity with serious comorbidity and body mass index (BMI) of 39.0 to 39.9 in adult, unspecified obesity type Gastroesophageal reflux disease, unspecified whether esophagitis present Obstructive sleep apnea Obstructive sleep apnea (adult) (pediatric) Elevated cholesterol Pure hypercholesterolemia High triglycerides Pure hyperglyceridemia documented in this encounter Care Teams Network Director Relationship Specialty Start Date End Date Glenys Hernandez, [address] [place] [address] PCP - General Family Medicine 09/26/21 12/28/22 documented as of this encounter
--- OUTSIDE RECORDS SUMMARY | 2023-11-09 16:48 | XMS_ITS | Encounter Summary ---
Author Organization [facility] Address [facility] [place] [address] Care Team Providers Care Collections Associate Name Role Phone Glenys Hernandez APRN Primary Care Provider Reason for Visit * Consultation (Routine) - Closed Specialty Diagnoses / Procedures Referred By Mayda jalloh Referred To Contact Dermatology Diagnoses Pruritus, unspecified Procedures Itching of Skin; New Patient-Notes Received Glenys Hernandez APRN [address] [place] [address] [place] [address] [facility] Dermatology [address] [place] [address] Referral ID Status Reason Start Date Expiration Date V isits Requested Visits Authorized [id number] Closed Consult, Test & Treat PCP Updated and/or Approved 03/20/2022 03/20/2023 6 6 Encounter Details Date Type Department Care Team ([facility] Contact Info) Description 07/04/2022 3:00 PM EDT Office Visit Dermatology at [facility] [address] [place] [phone] Syeda Dias MD [facility] [address] [place] [address] Pruritus Social History Tobacco Use Types Packs/Day Years [...] as of this encounter Progress Notes * ShayySyeda jalloh 07/04/2022 3:00 PM EDT Images from the original note were not included. DEPARTMENT OF DERMATOLOGY Medical Dermatology Clinic Provider: Syeda Dias MD Patient's preferred name Aydee Preferred contact method for results [x]Phone [x]myD-H [x]Letter Detailed phone message OK? Yes Are there any other people with whom we may discuss your care? Fernando Johns Past Medical History Date, location, treatment Melanoma N Dysplastic nevi N SCC N BCC N AKs N Other relevant past medical history N Family History Details Melanoma Yes NMSC N Other relevant family history N Social History Occupation: Disabled Hobbies: knitting, sewing, painting Other: 1 child PRE-PROCEDURE SCREENING Details Allergy to lidocaine, epinephrine, Dermabond, chlorhexidine, or adhesives N Bleeding disorder or blood thinners N Pacemaker, defibrillator, deep brain stimulator, cochlear implant N History of Present Illness: Aydee Johns is a 57 y.o. Patient is new and self- referred to the clinic for an itchy rash on the left inner thigh above the knee, it has been present for years and started around the same time as her neuropathy, she was given triamcinolone cream by her PCP but hasn't used it, she has not treated with anything otherwise Medications: Reviewed in eD-H Allergies: Reviewed in eD-H Skin Examination: Focused skin examination of the left leg was normal with the exception of the findings below. Assessment/Plan #. Neuropathic Itch - itch without a rash on the left knee -Continue Rx: Triamcinolone -Increase OTC [place] to 5 times per day . Recommend using for extended period of time -Recommended Sarna and Cerave anti-itch cream Figure 1 Photo(s) taken and charted with patient's verbal consent. Other: ??? OTC skin products discussed RTC: PRN []Note routed to legal administrative secretary []Recall placed in scheduling system []Appointment scheduled at checkout Scribe attestation: Bonifacio Tran CMA and Nic Barajas have performed the documentation for this encounter in the presence of and acting as a scribe for Syeda Dias MD. I performed the above scribed service and agree with the accuracy of the documentation in this encounter. Reviewed and signed by: Syeda Dias MD Dermatology [facility] Patient seen and evaluated with staff recoil spring winder: Santiago Patrick MD Dermatology [facility] * Santiago Patrick MD - 07/04/2022 3:00 PM EDT I was the supervising physician working with dermatology resident Dr. Dias in the dermatology clinic during this patient visit. The level of resident supervision for this patient visit was indirectsupervision with direct supervision immediately available. (definition: [facility] GME Policy Statement on Graduate Medical Education, Supervision of Graduate Medical Trainees) I was immediately available to Dr. Dias for questions and discussion regarding this visit. I have reviewed the encounter note details and level of service. SANTIAGO PATRICK MD Staff Physician documented in this encounter Plan of Treatment Upcoming Encounters Date Type Department Care Team (Late st Contact Info) Description 12/25/2023 2:00 PM EDT Office [place] [address] Justin Sevilla MD [facility] [place] [address] 01/23/2024 2:00 PM EDT Office Visit [place] [address] Kenneth Martin MD [facility] [place] [address] documented as of this encounter Goals Goal [...] as of this encounter Visit Diagnoses Diagnosis Pruritus Unspecified pruritic disorder documented in this encounter Care Teams Collections Associate Relationship Specialty Start Date End Date Glenys Hernandez, JL [address] [place] [address] PCP - General Family Medicine 09/26/21 12/28/22 documented as of this encounter
--- OUTSIDE RECORDS SUMMARY | 2023-11-09 16:48 | XMS_ITS | Encounter Summary ---
[place] [address] Care Team Providers Care Cryptologic Technician Technical Name Role Phone Zoraida Ordoñez MD Primary Care Provider [phone] Reason for Visit * Consultation (Routine) - Closed Specialty Diagnoses / Procedures Referred By Mayda t Referred To Contact General Surgery Diagnoses Weight loss Obesity, unspecified classification, unspecified obesity type, unspecified whether serious comorbidity present Harris Poon MD [address] [place] [address] [facility] [place] Surgery [address] [address] Referral ID Status Reason Start Date Expiration Date V isits Requested Visits Authorized [id number] Closed Consult, Test & Treat PCP Updated and/or Approved 08/15/2021 08/15/2022 6 6 Encounter Details Date Type Department Care Team ([facility] Contact Info) Description 08/22/2021 4:00 PM EDT Notes [place] [phone] Social History Tobacco Use Types Packs/Day Years [...] as of this encounter Progress Notes * Meghna Agee - 08/22/2021 4:00 PM EDT Patient attended the Webex Information Session for the [facility] on 08/22/2021 documented in this encounter Plan of Treatment Upcoming Encounters Date Type Department Care Team (Late st Contact Info) Description 12/25/2023 2:00 PM EDT Office Visit Plastic Surgery at [place] [phone] Justin Sevilla MD [facility] [place] [address] 01/23/2024 2:00 PM EDT Office Visit Pain and Spine Center at [place] [phone] Kenneth Martin MD [facility] [place] [address] Scheduled Referrals Name Type Priority Associated Diagnoses Orde r Schedule Referral to Bariatric Surgery Program Outpatient Referral Routine Weight loss Obesity, unspecified classification, unspecified obesity type, unspecified whether serious comorbidity present Ordered: 08/15/2021 documented as of this encounter Visit Diagnoses Not on filedocumented in this encounter Care Teams Cryptologic Technician Technical Relationship Specialty Start Date End Date Zoraida Ordoñez MD [address] [place] [address] PCP - General Family Medicine 08/13/21 09/25/21 documented as of this encounter
--- OUTSIDE RECORDS SUMMARY | 2023-11-09 16:48 | XMS_ITS | Encounter Summary ---
[facility] [place] [address] Care Team Providers Care Trash Truck Driver Name Role Phone Glenys Hernandez JL Primary Care Provider [phone] Encounter Details Date Type Department Care Team (Late st Contact Info) Description 03/09/2022 Telephone [place] [phone] [facility] [place] [address] Social History Tobacco Use Types Packs/Day Years [...] encounter Miscellaneous Notes * Telephone Encounter - Cele Calloway APRN - 03/09/2022 9:10 AM EST Called patient to discuss TENS. Per TT this is not a contraindication to bariatric surgery. Questions encouraged and answered. documented in this encounter Plan of Treatment Upcoming Encounters Date Type Department Care Team (Late st Contact Info) Description 12/25/2023 2:00 PM EDT Office [place] [phone] [facility] [place] [address] 01/23/2024 2:00 PM EDT Office Visit Pain and Spine Center at [facility] [place] [address] [facility] [place] [address] documented as of this encounter Goals Goal [...] on filedocumented in this encounter Care Teams Trash Truck Driver Relationship Specialty Start Date End Date Glenys Hernandez, JL [address] [place] [address] PCP - General Family Medicine 09/26/21 12/28/22 documented as of this encounter
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
--- OUTSIDE RECORDS SUMMARY | 2023-11-09 16:48 | XMS_ITS | Encounter Summary ---
Author Organization [facility] [place] [address] Care Team Providers Care Shoe Designer Name Role Phone Glenys Hernandez JL Primary Care Provider [phone] Reason for Referral * Physical Therapy (Routine) - Closed Specialty Diagnoses / Procedures Referred By Contac t Referred To Contact Physical Therapy Diagnoses Radicular pain of left lower extremity Minnie Muñoz APRN [facility] [place] [address] Referral ID Status Reason Start Date Expiration Date V isits Requested Visits Authorized [id number] Closed Evaluate and Treat Non PCP 09/26/2021 03/25/2022 5 5 Reason for Visit * Reason Comments Back Pain Lower back/bilateral leg pain * Consultation (Routine) - Closed Specialty Diagnoses / Procedures Referred By Contac t Referred To Contact [facility] Sp[facility] Diagnoses Sciatica, unspecified laterality Chronic low back pain with sciatica, sciatica laterality unspecified, unspecified back pain laterality Low back & left leg pain/ h/o of lumbar surgery 08/2020w/[facility]/ MRI 01/2021 in [facility] Harris Poon MD [address] [place] [address] [facility] [place] [address] Referral ID Status Reason Start Date Expiration Date V isits Requested Visits Authorized [id number] Closed Consult, Test & Treat PCP Updated and/or Approved 08/15/2021 08/15/2022 6 6 Encounter Details Date Type Department Care Team (Late st Contact Info) Description 09/26/2021 1:15 PM EDT Office Visit [facility] [place] [address] Minnie Muñoz APRN [facility] [place] [address] Radicular pain of left lower extremity (Primary [...] Sign Reading Time Taken Comments Blood Pressure 116/64 09/26/2021 1:10 PM EDT Pulse 88 09/26/2021 1:10 PM EDT Temperature - - Respiratory Rate - - Oxygen Saturation 92% 09/26/2021 1:10 PM EDT Inhaled Oxygen Concentration - - Weight 104.3 kg (230 lb) 09/26/2021 1:10 PM EDT reported Height 162.6 cm (5' 4) 09/26/2021 1:10 PM EDT Body Mass Index 39.48 09/26/2021 1:10 PM EDT documented in this encounter Progress Notes * Minnie Muñoz, JL - 09/26/2021 1:15 PM EDT Images from the original note were not included. [facility] Date of Consultation: September 23, 2021 Referring Provider: Harris Poon Reason for request of consultation: To get an injection Chief Complaint: Right buttock and low back pain History of Present Illness: Ms. Johns is a 56 y.o. year-old female who presents to the [...] painful to the touch. She saw Dr. Fisher's who did his surgery for a calcified cyst which was a synovial cyst at L5-S1. She was doing well postoperatively and his surgery was done in August 2020 and then she tripped over [facility] and had recurrent leg symptoms. She feels that her symptoms are also associated with some neuropathy in her feet. Pain can be anywhere from 4-10 on a scale of 10. She is done physical [place] [facility] and Tylenol she would like to do massage is not covered by her insurance. PAIN ASSESSMENT: Description: Low back pain is [...] standing , lying on stomach Pain today: 4/10 Best in past week:4/10 Worst in past week:10/10 myD-H Pain 10/20/2015 VR12 - Physical Summary Component 21.6 VR12 - Mental Component Summary 21.32 PAST THERAPIES: PT in [place] Chiropractor Tylenol Functional Status Work-- disabled ADL's---difficulty with walking, doing chores, sitting , sleeping Lives at home alone Current Medications: No outpatient medications have been marked as taking for the 09/26/21 encounter (Appointment) with Minnie Muñoz APRN. Allergies & Adverse Reactions: Cymbalta [duloxetine]; Aspirin; Metoprolol; Nsaids (non-steroidal anti- inflammatory drug); Codeine phosphate; Dilantin [phenytoin]; Dye; Ez flu 2014- (flucelvax)(pf) [flu vac ts 15-16(18,up)eduardo(pf)]; Flonase [fluticasone]; Penicillins; Savella [milnacipran]; and Unable to find [unclassified drug] Problem List: Patient Active Problem List Diagnosis Code ??? Neuropathy of both feet G57.93 ??? Capps neuroma G57.60 ??? Macromastia N62 ??? 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 Obstructive sleep apnea G47.33 ??? Gastroesophageal reflux K21.9 ??? Elevated cholesterol E78.00 ??? Morbid obesity E66.01 ??? Body mass index (BMI) of 36.0-36.9 in adult Z68.36 ??? Anxiety F41.9 ??? Depression F32.A ??? Stress disorder, posttraumatic F43.10 ??? Tobacco abuse Z72.0 Social History: Social History Socioeconomic History ??? Marital status: Spouse name: Not on file ??? Number of children: Not on file ??? Years of education: Not on file ??? Highest education level: Not on file Occupational History ??? Not on file Tobacco Use ??? Smoking status: Current Every Day Smoker Packs/day: 0.50 ??? Smokeless tobacco: Never Used ??? Tobacco comment: smoking cessation info given Substance and Sexual Activity ??? Alcohol use: Never ??? Drug use: Yes Types: Marijuana Comment: occasional for pain control ??? Sexual activity: Not on file Comment: deferred Other Topics Concern ??? Exercise: Patient reported No ??? Abuse or Threat: Physical, Sexual, Verbal No ??? Abuse or Threat: Help requested by patient No Social History Narrative ??? Not on file Social Determinants of Health Financial Resource Strain: Not on file Food Insecurity: Not on file Transportation Needs: Not on file Physical Activity: Not on file Housing Stability: Not on file Family History Family History Problem Relation Age of Onset ??? Cancer Mother ??? Breast Cancer Mother ??? Cancer Brother ??? Cancer Cousin Past Medical History: Past Medical History: Diagnosis Date ??? Anxiety [...] Knee to feet bilaterally secondary to Gilda [place], decreased sensation to kimberly arms as well ??? Obstructive sleep apnea 11/03/2015 ??? Stress disorder, posttraumatic 11/04/2015 Past Surgical History: Past Surgical History: Procedure Laterality Date ??? APPENDECTOMY ??? CHOLECYSTECTOMY ??? COLECTOMY ??? COLONOSCOPY ??? PRO LAMINEC/FACETECT/FORAMIN, LUMBAR 1 SEG Left 08/31/2020 LAMINECTOMY, FACETECTOMY & FORAMINOTOMY,LUMBAR, ONE LEVEL (WRVU 15.37) performed by Homar Astudillo MD at [facility] OR Review of Systems: Denies fever, chills, weight loss, SOB, abdominal pain, leg weakness/numbnes, arm weakness/numbness, bowel or bladder incontinence, balance issues RISK ASSESSMENT: Smoking: quit date at the end of the month , 45py Alcohol: no Physical Exam: No data found. Appearance/ Behavior Well groomed, good eye contact, relaxed, cooperative, normal speech, no acute distress, no involuntary movements Lungs Respirations unlabored Cardiovascular Bilateral lower extremities warm and dry Skin No rash, asymmetric hair loss, bruises, scars, swelling Musckuloskeletal Inspection/Palpation/ Range of Motion/Facet Loading maneuvers Gait: Nonantalgic Assistive device: None Heel, toe, heel to toe: Without difficulty, they can balance on each leg without hip drop. Inspection: good alignment, no excessive curvature, shoulder and hip levels equal bilaterally; no skin breakdown ROM: Positive facet loading for reproduction of back pain, some pain in the leg with lateral bending. Can walk on heels and toes. Palpation: Low back tenderness, normal sensation and strength in the proximal lower extremities some stocking type sensory changes in the feet Imaging & Other Studies: Assessment: Ms. Johns is a 56 y.o. year-old female who presents to the [facility] With low back pain and lateral leg pain. I discussed with the patient a trial of an epidural steroid injection transforaminal at L5-S1. We reviewed the risks and benefits and she would like to proceed. I also discussed with her that we are having a contrast shortage right now and she may or may notbe at the top of the list for this as those procedures are being triaged according to severity of pa in and other factors. She understands this. I also gave her a referral to [facility] where she can do some Nitesh therapy with Ashlyn Butler. She is going to follow-up with me 4 to 6 weeks after her injection. Thank you Dr. Poon for allowing my participation in Aydee Johns's care. Minnie Muñoz, MS, SUBSURFACE AUGMENTEE ELINT OPERATOR-BC, GUEST SERVICE MANAGER Nurse practitioner Pain management [facility] documented in this encounter Plan of Treatment Upcoming Encounters Date Type Department Care Team (Late st Contact Info) Description 12/25/2023 2:00 PM EDT Office Visit Plastic Surgery at [place] [phone] Justin Sevilla MD [facility] [place] [address] 01/23/2024 2:00 PM EDT Office Visit [facility] [place] [address] Kenneth Martin MD [facility] [place] [address] Scheduled Referrals Name Type Priority Associated Diagnoses Orde r Schedule Referral to Physical Therapy Outpatient Referral Routine Radicular pain of left lower extremity Ordered: 09/26/2021 documented as of this encounter Visit Diagnoses Diagnosis Radicular pain of left lower extremity- Primary Thoracic or lumbosacral neuritis or radiculitis, unspecified documented in this encounter Care Teams Shoe Designer Relationship Specialty Start Date End Date Glenys Hernandez APRN [address] [place] [address] PCP - General Family Medicine 09/26/21 12/28/22 documented as of this encounter
--- OUTSIDE RECORDS SUMMARY | 2023-11-09 16:48 | XMS_ITS | Encounter Summary ---
Author Organization [place] [address] Care Team Providers Care Jewelry Jobber Name Role Phone Glenys Hernandez APRN Primary Care Provider [phone] Encounter Details Date Type Department Care Team ([facility] Contact Info) Description 12/26/2021 Telephone Weight and Wellness at [address] [address] Светлана Villasenor CMA Social History Tobacco Use Types Packs/Day Years [...] Telephone Encounter - Светлана Villasenor CMA - 12/26/2021 4:02 PM EDT [facility] Manager Programming Pre-telemedicine Visit Phone Note Aydee Johns 1965 [x] Patient was not reached Patient was reached and the following information was reviewed/obtained per protocol: [] Confirmed patient name and date of [] Confirmed ZOOM downloaded and functioning [] ZOOM appointment link sent if no MyDH [] Phone number to be reached is: [phone] REVIEW: [] Review of patient medications completed [...] PM EDT Office [place] [phone] Justin Sevilla MD [facility] [place] [address] 01/23/2024 2:00 PM EDT Office Visit [place] [phone] Kenneth Martin MD [facility] [place] [address] documented as of this encounter Goals Goal [...] on filedocumented in this encounter Care Teams Jewelry Jobber Relationship Specialty Start Date End Date Glenys Hernandez APRN [address] [place] [address] PCP - General Family Medicine 09/26/21 12/28/22 documented as of this encounter
--- OUTSIDE RECORDS SUMMARY | 2023-11-09 16:48 | XMS_ITS | Encounter Summary ---
Author Organization [facility] [place] [address] Care Team Providers Care Crisis Intervention Counselor Name Role Phone Glenys Hernandez APRN Primary Care Provider [phone] Encounter Details Date Type Department Care Team ([facility] Contact Info) Description 03/20/2022 Telephone Weight and Wellness at [address] [address] Светлана Villasenor, MANOJ Social History [...] Telephone Encounter - Светлана Villasenor CMA - 03/20/2022 3:49 PM EST [facility] Medical Billing Supervisor Pre-telemedicine Visit Phone Note Aydee Johns 1965 [] Patient was not reached Patient was reached and the following information was reviewed/obtained per protocol: [x] Confirmed patient name and date of [x] Confirmed ZOOM downloaded and functioning [] ZOOM appointment link sent if no MyDH [x] Phone number to be reached is: [phone] REVIEW: [x] Review of patient medications completed Have you started on any NEW medications? [] No [] Yes: [x] Confirmed preferred pharmacy: [facility] Your provider might ask you what you ate the day prior to the visit Please weigh yourself before the appointment Pedi: Both parent and child need to be present for the visit documented in this encounter Plan of Treatment Upcoming Encounters Date Type Department Care Team (Late st Contact Info) Description 12/25/2023 2:00 PM EDT Office [place] [phone] Justin Sevilla MD [facility] [place] [address] 01/23/2024 2:00 PM EDT Office Visit [place] [phone] Kenneth Martin MD [facility] [place] [place] [address] documented as of this encounter Goals Goal [...] on filedocumented in this encounter Care Teams Crisis Intervention Counselor Relationship Specialty Start Date End Date Glenys Hernandez, [place] [address] [place] [address] PCP - General Family Medicine 09/26/21 12/28/22 documented as of this encounter
--- OUTSIDE RECORDS SUMMARY | 2023-11-09 16:48 | XMS_ITS | Encounter Summary ---
[place] [address] Care Team Providers Care Tipple Boss Name Role Phone Glenys Hernandez APRN Primary Care Provider [phone] Encounter Details Date Type Department Care Team (Late st Contact Info) Description 04/06/2022 Telephone Weight [place] [phone] Suzi Reid Social History Tobacco Use Types [...] encounter Miscellaneous Notes * Telephone Encounter - Jessica Baker V - 04/06/2022 11:12 AM EST LM to reschedule Dr. Weinberg appt. documented in this encounter Plan of Treatment Upcoming Encounters Date Type Department Care Team (Late st Contact Info) Description 12/25/2023 2:00 PM EDT Office [place] [phone] Justin Sevilla MD [facility] [place] [address] 01/23/2024 2:00 PM EDT Office Visit Pain and Spine Center at [facility] [place] [address] Kenneth Martin MD [facility] [place] [address] documented as of this encounter Goals Goal [...] on filedocumented in this encounter Care Teams Tipple Boss Relationship Specialty Start Date End Date Glenys Hernandez, JL [address] [place] [address] PCP - General Family Medicine 09/26/21 12/28/22 documented as of this encounter
--- OUTSIDE RECORDS SUMMARY | 2023-11-09 16:48 | XMS_ITS | Encounter Summary ---
[place] [address] Care Team Providers Care Library Circulation Department Chief Name Role Phone Glenys Hernandez APRN Primary Care Provider [phone] Encounter Details Date Type Department Care Team (Late st Contact Info) Description 09/30/2021 External Results Weight and Wellness at [address] [phone] Erin Gaines, RN Social History Tobacco Use Types Packs/Day [...] PM EDT Office [place] [phone] Justin Sevilla MD [facility] [place] [address] 01/23/2024 2:00 PM EDT Office Visit [facility] [place] [phone] Kenneth Martin MD [facility] [place] [address] documented as of this encounter Procedures Procedure Name Priority Date/Time Associated Diagnosis Comments [facility] EXTERNAL RESULT PANEL Routine 08/29/2021 documented in this encounter Results * (ABNORMAL) [facility] External Results (08/29/2021) Chol, Total 311(H) Triglycerides 308(H) HDL 46 LDL Cholesterol 204(H) BUN 12 Creatinine 0.8 Sodium 142 Potassium 4.0 Chloride 104 CO2 28 Anion Gap 10 Calcium 9.1 Total Protein 7.4 Albumin 4.2 AST 13(L) ALT 23 Alk Phos 79 Total Bilirubin 0.5 Estimated GFR >60 Glucose Lvl 110(H) Platelets 318 08/29/2021 Historical Provider POINT OF CARE BONNIE T ORDERABLES documented in this encounter Visit Diagnoses Not on filedocumented in this encounter Care Teams Library Circulation Department Chief Relationship Specialty Start Date End Date Glenys Hernandez, JL [address] [place] [address] PCP - General Family Medicine 09/26/21 12/28/22 documented as of this encounter
--- OUTSIDE RECORDS SUMMARY | 2023-11-09 16:48 | XMS_ITS | Encounter Summary ---
Author Organization [facility] [place] [address] Care Team Providers Care Corn Detasseler Machine Operator Name Role Phone Nick Menendez MD Primary Care Provider [phone] Encounter Details Date Type Department Care Team (Late Contact Info) Description 07/14/2020 Ancillary Procedure Radiology at [facility] [address] [place] [address] Nain Bashir MD [address] [facility] [place] [address] Social History Tobacco Use Types Packs/Day Years [...] Upcoming Encounters Date Type Department Care Team ([facility] Contact Info) Description 12/25/2023 2:00 PM EDT Office [place] [address] Justin Sevilla MD [facility] [address] 01/23/2024 2:00 PM EDT Office Visit [place] [address] Kenneth Martin MD [facility] [place] [address] documented as of this encounter Procedures Procedure Name Priority Date/Time Associated Diagnosis Comments FILM LIBRARY STORAGE ONLY MR SPINE Routine 07/14/2020 12:00 AM EDT documented in this encounter Results * Film Library- Storage Only MR Spine (07/14/2020 12:00 AM EDT) Narrative [facility] 07/19/2020 4:36 PM EDT This exam is auto-finalizing. It's purpose is for storage only. Nain Bashir MD IMG FILM LIBRARY OR DERABLES [place], [place] documented in this encounter Visit Diagnoses Not on filedocumented in this encounter Care Teams Corn Detasseler Machine Operator Relationship Specialty Start Date End Date Nick Menendez MD [address] [place] [id number] PCP - General General Internal Medicine 03/06/1608/12 documented as of this encounter
--- OUTSIDE RECORDS SUMMARY | 2023-11-09 16:48 | XMS_ITS | Encounter Summary ---
Author Organization [facility] [place] [address] Care Team Providers Care Water Taxi Boat Mate Name Role Phone Nick Menendez MD Primary Care Provider Encounter Details Date Type Department Care Team (Late Contact Info) Description 06/14/2018 Ancillary Procedure [place] [phone] Nick Menendez MD [address] [place] [id number] Social History Tobacco Use Types Packs/Day Years [...] PM EDT Office [place] [address] Justin Sevilla MD [facility] [place] [address] 01/23/2024 2:00 PM EDT Office Visit [place] [address] Kenneth Martin MD [facility] [address] documented as of this encounter Procedures Procedure Name Priority Date/Time Associated Diagnosis Comments FILM LIBRARY STORAGE ONLY MR HEAD AND SPINE Routine 06/14/2018 12:00 AM EST documented in this encounter Results * Film Library- Storage Only MR Head and Spine (06/14/2018 12:00 AM EST) Narrative [facility] - 06/21/2018 1:07 PM EDT This exam is auto-finalizing. It's purpose is for storage only. Nick Menendez MD IMG FILM LIBRARY ORD ERABLES [place], [place] documented in this encounter Visit Diagnoses Not on filedocumented in this encounter Care Teams Water Taxi Boat Mate Relationship Specialty Start Date End Date Nick Menendez MD [address] [place] [address] PCP - General General Internal Medicine 03/06/1608/12 documented as of this encounter
--- OUTSIDE RECORDS SUMMARY | 2023-11-09 16:48 | XMS_ITS | Encounter Summary ---
Author Organization [facility] [place] [address] Care Team Providers Care Fibre Optic Cable Splicer Name Role Phone Glenys Hernandez APRN Primary Care Provider [phone] Encounter Details Date Type Department Care Team (Late st Contact Info) Description 09/18/2022 Ancillary Procedure [place] [address] Minnie Muñoz APRN [facility] [place] [address] Social History Tobacco Use Types Packs/Day Years [...] PM EDT Office [place] [address] Justin Sevilla MD [facility] [place] [address] 01/23/2024 2:00 PM EDT Office Visit [place] [address] Kenneth Martin MD [facility] [place] [address] documented as of this encounter Goals Goal [...] FILM LIBRARY STORAGE ONLY MR SPINE Routine 09/18/2022 12:00 AM EDT documented in this encounter Results * Film Library- Storage Only MR Spine (09/18/2022 12:00 AM EDT) Narrative [facility] - 02/06/2023 9:40 PM EDT This exam is auto-finalizing. It's purpose is for storage only. Minnie Muñoz APRN IMG FILM LIBRARY OR DERABLES [place], [place] documented in this encounter Visit Diagnoses Not on filedocumented in this encounter Care Teams Fibre Optic Cable Splicer Relationship Specialty Start Date End Date Glenys Hernandez APRN [address] [place] [address] PCP - General Family Medicine 09/26/21 12/28/22 documented as of this encounter
--- OUTSIDE RECORDS SUMMARY | 2023-11-09 16:48 | XMS_ITS | Encounter Summary ---
[place] [address] Care Team Providers Care Hazardous Substances Engineer Name Role Phone Glenys Hernandez APRN Primary Care Provider [phone] Encounter Details Date Type Department Care Team (Late st Contact Info) Description 04/17/2022 Telephone [place] [phone] Meghna Agee Social History Tobacco Use Types Packs/Day Years [...] encounter Miscellaneous Notes * Telephone Encounter - Meghna Agee - 04/17/2022 11:26 AM ESTSummary: Bariatric Surgery program Aydee called to cancel all appointments related to bariatric surgery as she is no longer interested in pursuing bariatric surgery since quitting smoking documented in this encounter Plan of Treatment Upcoming Encounters Date Type Department Care Team (Late st Contact Info) Description 12/25/2023 2:00 PM EDT Office [place] [phone] Justin Sevilla MD [facility] DR PLASTIC SURGERY [place], [place] [id number] 01/23/2024 2:00 PM EDT Office Visit [place] [address] Kenneth Martin MD [facility] [place] [address] documented as of this encounter Goals Goal [...] on filedocumented in this encounter Care Teams Hazardous Substances Engineer Relationship Specialty Start Date End Date Glenys Hernandez APRN [address] [place] [address] PCP - General Family Medicine 09/26/21 12/28/22 documented as of this encounter
--- OUTSIDE RECORDS SUMMARY | 2023-11-09 16:48 | XMS_ITS | Encounter Summary ---
[place] [address] Care Team Providers Care Genetics Physician Name Role Phone Nick Menendez MD Primary Care Provider [phone] Reason for Visit * Auth/Cert Specialty Diagnoses / Procedures Referred By Mayda jalloh Referred To Contact Diagnoses SPONDYLOSIS, FORAMINAL STENOSIS Procedures PRO LAMINEC/FACETECT/FORAMIN, LUMBAR 1 SEG PRO LAMINEC/FACETECT/FORAMIN, EACH ADDNL LAMINECTOMY, FACETECTOMY & FORAMINOTOMY,LUMBAR, ONE LEVEL (WRVU 15.37) ADD'L INTERSPACES CX., THORACIC, LUMBAR (WRVU 3.47) Referral ID Status Reason Start Date Expiration Date Visits Re quested Visits Authorized [id number] 1 1 Encounter Details Date Type Department Care Team (Late Contact Info) Description 08/31/2020 9:40 AM EDT Ancillary Procedure Radiology Xray at [facility] [place] [phone] Social History Tobacco Use Types Packs/Day Years [...] Upcoming Encounters Date Type Department Care Team ([facility] Contact Info) Description 12/25/2023 2:00 PM EDT Office [place] [phone] Justin Sevilla MD [facility] [place] [address] 01/23/2024 2:00 PM EDT Office Visit Pain and Spine Center at [facility] [place] [address] Kenneth Maritn MD [facility] [place] [address] documented as of this encounter Procedures Procedure Name Priority Date/Time Associated Diagnosis Comments XR FLUORO NO RAD <1HR - OR USE Routine 08/31/2020 11:30 AM EDT documented in this encounter Results * XR Fluoro No Rad <1Hr - OR Use (08/31/2020 11:30 AM EDT) Narrative RAD - 08/31/2020 11:30 AM EDT This exam is auto-finalizing. No interpretation was done. Homar Astudillo MD IMG FLUORO ORDERABLE [place], [place] documented in this encounter Visit Diagnoses Not on filedocumented in this encounter Care Teams Genetics Physician Relationship Specialty Start Date End Date Nick Menendez MD [address] [place] [address] PCP - General General Internal Medicine 03/06/1608/12 documented as of this encounter
--- OUTSIDE RECORDS SUMMARY | 2023-11-09 16:48 | XMS_ITS | Encounter Summary ---
[place] [address] Care Team Providers Care City Mail Carrier Name Role Phone Nick Menendez MD Primary Care Provider Encounter Details Date Type Department Care Team (Late Contact Info) Description 07/11/2016 Telephone [place] [address] Liz Helm Social History Tobacco Use Types Packs/Day Years [...] encounter Miscellaneous Notes * Telephone Encounter - Liz Helm - 07/11/2016 10:53 AM EDT Patient called and stated that she lost the form to pickle solution maker her certified letter.. She asked me to read the letter (which I did) and she will contact her PCP and Chiropractor and getmore documentation and send it To Jocelyn Barrios to re-submit to insurance. Patient is aware that her surgery is cancelled. DF documented in this encounter Plan of Treatment Upcoming Encounters Date Type Department Care Team (Late st Contact Info) Description 12/25/2023 2:00 PM EDT Office [place] [address] Justin Sevilla MD [facility] [place] [address] 01/23/2024 2:00 PM EDT Office Visit Pain [place] [address] Kenneth Martin MD [facility] [place] [address] documented as of this encounter Visit Diagnoses Not on filedocumented in this encounter Care Teams City Mail Carrier Relationship Specialty Start Date End Date Nick Menendez MD [address] [place] [address] PCP - General General Internal Medicine 03/06/1608/12 documented as of this encounter
--- OUTSIDE RECORDS SUMMARY | 2023-11-09 16:48 | XMS_ITS | Encounter Summary ---
Author Organization [facility] [place] [address] Care Team Providers Care Therapeutic Massage Technician Name Role Phone Glenys Hernandez APRN Primary Care Provider [phone] Encounter Details Date Type Department Care Team (Latest Contact Info) Description 07/03/2022 Travel Social History Tobacco Use Types Packs/Day [...] PM EDT Office Visit Plastic Surgery at [place] [phone] Justin Sevilla MD [facility] [place] [address] 01/23/2024 2:00 PM EDT Office Visit Pain and Spine Center at [place] [phone] Kenneth Martin MD [facility] [place] [place] [address] documented as of this encounter Goals Goal [...] on filedocumented in this encounter Care Teams Therapeutic Massage Technician Relationship Specialty Start Date End Date Glenys Hernandez, JL [address] [place] [address] PCP - General Family Medicine 09/26/21 12/28/22 documented as of this encounter
--- OUTSIDE RECORDS SUMMARY | 2023-11-09 16:48 | XMS_ITS | Encounter Summary ---
[place] [address] Care Team Providers Care Primer Expeditor And Drier Name Role Phone Glenys Hernandez APRN Primary Care Provider Reason for Referral * Consultation (Routine) - Closed Specialty Diagnoses / Procedures Referred By Mayda jalloh Referred To Contact Neurology Diagnoses Polyneuropathy Andrea Méndez DO [address] [place] [address] [place] [address] [facility] [address] [place] [phone] Referral ID Status Reason Start Date Expiration Date V isits Requested Visits Authorized [id number] Closed Consult, Test & Treat PCP Updated and/or Approved 08/10/2022 08/10/2023 1 1 Encounter Details Date Type Department Care Team (Latest Contact Info) Description 08/10/2022 Transcribe Orders eD Incoming Referrals [phone] Andrea Méndez DO [address] [place] [address] Polyneuropathy (Primary Dx) Social History Tobacco Use Types [...] PM EDT Office [place] [phone] Justin Sevilla MD [facility] [place] [address] 01/23/2024 2:00 PM EDT Office Visit [place] [address] Kenneth Martin MD [facility] [place] [address] Scheduled Referrals Name Type Priority Associated Diagnoses Orde r Schedule Referral to Neurology Outpatient Referral Routine Polyneuropathy Ordered: 08/10/2022 documented as of this encounter Goals Goal [...] as of this encounter Visit Diagnoses Diagnosis Polyneuropathy- Primary Unspecified hereditary and idiopathic peripheral neuropathy documented in this encounter Care Teams Primer Expeditor And Drier Relationship Specialty Start Date End Date Glenys Hernandez APRN [address] [place] [address] PCP - General Family Medicine 09/26/21 12/28/22 documented as of this encounter
--- OUTSIDE RECORDS SUMMARY | 2023-11-09 16:48 | XMS_ITS | Encounter Summary ---
[place] [address] Care Team Providers Care Belt Operator Name Role Phone Glenys Hernandez APRN Primary Care Provider [phone] Encounter Details Date Type Department Care Team (Late st Contact Info) Description 12/29/2021 External Results Weight and Wellness at [address] [phone] Erin Gaines, RN Social History Tobacco Use [...] PM EDT Office [place] [phone] Justin Sevilla MD [facility] [place] [address] 01/23/2024 2:00 PM EDT Office Visit [place] [phone] Kenneth Martin MD [facility] [place] [address] documented as of this encounter Goals Goal [...] Procedure Name Priority Date/Time Associated Diagnosis Comments [facility] EXTERNAL LABS 2 Routine 12/22/2021 documented in this encounter Results * (ABNORMAL) [facility] Labs 2 - External (12/22/2021) Hemoglobin A1C 5.9(H) Glucose Fasting 103 25-OH Vit D Total 19.1(L) TSH 0.93 Insulin Lvl 15.1 Ferritin 120 Iron 76 12/22/2021 Historical Provider POINT OF CARE BONNIE T ORDERABLES documented in this encounter Visit Diagnoses Not on filedocumented in this encounter Care Teams Belt Operator Relationship Specialty Start Date End Date Glenys Hernandez, JL [address] [place] [address] PCP - General Family Medicine 09/26/21 12/28/22 documented as of this encounter
--- OUTSIDE RECORDS SUMMARY | 2023-11-09 16:48 | XMS_ITS | Encounter Summary ---
Author Organization [facility] [place] [address] Care Team Providers Care Marker Machine Attendant Name Role Phone Nick Menendez MD Primary [...] Expiration Date Visits Re quested Visits Authorized [id number] 1 1 Encounter Details Date Type Department Care Team ([facility] Contact Info) Description 08/31/2020 10:53 AM EDT - 08/31/2020 1:06 PM EDT Surgery Operating Room [facility] [address] [facility] [place] [address] Homar Astudillo MD [address] [place] [address] LAMINECTOMY, FACETECTOMY & FORAMINOTOMY,LUMBAR, ONE LEVEL (WRVU 15.37) Social History Tobacco Use Types Packs/Day Years [...] Sign Reading Time Taken Comments Blood Pressure 138/75 08/31/2020 1:05 PM EDT Pulse 83 08/31/2020 1:05 PM EDT Temperature 35.6 ??C (96.1 ??F) 08/31/2020 1 1:56 AM EDT gown warmer initiated, warm blankets appied to patient Respiratory Rate 16 08/31/2020 1:05 PM EDT Oxygen Saturation 94% 08/31/2020 1:0 5 PM EDT Inhaled Oxygen Concentration - [...] six weeks after surgery with a Physician???s Hose Builder at the surgeon???s office. You will have [...] to stop taking it. ??? Only take [id number]-nbh-[id number] or prescription medicine for pain, discomfort or [...] If you have any questions, please call [facility] Neurology and Neurosurgery at [phone], during business hours of Sunday through Sunday from 8:00 a.m. until 4:00 p.m. In case of emergency during non-business hours, please call the same main number and follow the prompts to page the neurosurgeon commissary production supervisor. SMOKING CESSATION INFORMATION: ??? [place] QUITLINE: ??? [place] QUITLINE: ??? [email or web address] If you smoke, stop now! Smoking may impede healing. MAKE SURE YOU: ??? Understand these instructions. ??? Will seek medical care if you are feeling poor, or get worse. ??? Will call the surgeon???s office with any questions or concerns at : [phone] The above information has been presented or [...] Astudillo MD - 08/31/2020 10:49 AM EDT [facility] [place] [address] Patient Name: Aydee Johns : [id number] MR#: [id number] Case Date: 08/31/2020 Case Scheduled Time: 1053 [...] PM EDT Office [place] [phone] Justin Sevilla MD [facility] [place] [address] 01/23/2024 2:00 PM EDT Office Visit Pain [place] [phone] Kenneth Martin MD [facility] PAIN MANAGEMENT [place], [place] [phone] documented as of this encounter Procedures Procedure [...] Homar Astudillo MD IMG FLUORO ORDERABLE S [place], [place] documented in this encounter Visit Diagnoses Not on filedocumented in this encounter Administered Medications Inactive Administered Medications - up to 3 most recent administrations Medication Order MAR Action Action Date Dose Rate Site BUpivacaine (pf) (Marcaine) (5 mg/mL) 0.5% injection ONCE PRN, Starting on Sun08/31/20 at 1103, Until Sun08/31/20 at 1347, Intra-Operative (Intra-Procedure), Routine Given 08/31/2020 11:03 AM EDT 30 mLs 19- Surgical Site BUpivacaine liposome (PF) (Exparel) 1.3 % (13.3 mg/mL) injection for infiltration ONCE PRN, Starting on Sun08/31/20 at 1104, Until Sun08/31/20 at 1347, Intra-Operative (Intra-Procedure) Given 08/31/2020 11:04 AM EDT 20 mLs 19- Surgical Site lactated ringers infusion 1,000 mL, at [...] 1000 (New Bag - Prov ider: Priti Kilgore, STORMY)1100 (Due: Stopped - Provider: Priti Kilgore RN) [...] MD) documented in this encounter Care Teams Marker Machine Attendant Relationship Specialty Start Date End Date Nick Menendez MD [address] [place] [address] PCP - General General Internal Medicine 03/06/1608/12 documented as of this encounter
--- OUTSIDE RECORDS SUMMARY | 2023-11-09 16:48 | XMS_ITS | Encounter Summary ---
Author Organization [facility] [place] [address] Care Team Providers Care Tapper Operator Name Role Phone Nick Menendez MD Primary Care Provider Encounter Details Date Type Department Care Team ([facility] Contact Info) Description 08/24/2020 9:45 AM EDT Telephone Pre-Admission Testing [place] [phone] Social History Tobacco Use Types Packs/Day Years [...] as of this encounter Progress Notes * Niharika Constantino RN - 08/24/2020 10:27 AM EDTSummary: covid EXPOSURE: Have you been in contact with anyone suspected of or confirmed to have COVID-19 in the PAST 14 DAYS? []Yes [x]No Have you traveled outside the [facility] in the PAST 14 DAYS? []Yes [x]No COVID-19 SCREENING: In the past 14 days, have you had any of the following symptoms: [] Fever (subjective or documented fever) [] Chills [] Cough [] Shortness of breath or difficulty breathing [] Fatigue [] Muscle or body aches [] Headache [] New loss of taste or smell [] Sore throat [] Nausea or vomiting [] Diarrhea [x]NONE OF THE ABOVE Have you scheduled your preop COVID Screening Test? []Yes []No [x]N/A Not getting vaccinated documented in this encounter Plan of Treatment Upcoming Encounters Date Type Department Care Team (Late st Contact Info) Description 12/25/2023 2:00 PM EDT Office [place] [phone] Justin Sevilla MD [facility] [place] [address] 01/23/2024 2:00 PM EDT Office Visit [place] [phone] Kenneth Martin MD [facility] [place] [address] documented as of this encounter Visit Diagnoses Not on filedocumented in this encounter Care Teams Tapper Operator Relationship Specialty Start Date End Date Nick Menendez MD [address] [place] [address] PCP - General General Internal Medicine 03/06/1608/12 documented as of this encounter
--- OUTSIDE RECORDS SUMMARY | 2023-11-09 16:48 | XMS_ITS | Encounter Summary ---
Author Organization [facility] [place] [address] Care Team Providers Care Binder Technician Name Role Phone Glenys Hernandez APRN Primary Care Provider [phone] Encounter Details Date Type Department Care Team (Late st Contact Info) Description 11/08/2022 Ancillary Procedure [place] [phone] Minnie Muñoz APRN [facility] [place] [address] Social History Tobacco Use Types Packs/Day Years [...] PM EDT Office Visit [place] [address] Justin Sevilla MD [facility] [place] [address] 01/23/2024 2:00 PM EDT Office Visit [facility] [place] [address] Kenneth Martin MD [facility] [place] [address] documented as of this encounter Goals Goal [...] FILM LIBRARY STORAGE ONLY MR SPINE Routine 11/08/2022 12:00 AM EDT documented in this encounter Results * Film Library- Storage Only MR Spine (11/08/2022 12:00 AM EDT) Narrative [facility] - 02/06/2023 9:41 PM EDT This exam is auto-finalizing. It's purpose is for storage only. Minnie Muñoz APRN IMG FILM LIBRARY OR DERABLES [place], [place] documented in this encounter Visit Diagnoses Not on filedocumented in this encounter Care Teams Binder Technician Relationship Specialty Start Date End Date Glenys Hernandez APRN [address] [place] [address] PCP - General Family Medicine 09/26/21 12/28/22 documented as of this encounter
--- OUTSIDE RECORDS SUMMARY | 2023-11-09 16:48 | XMS_ITS | Encounter Summary ---
Author Organization [facility] [place] [address] Care Team Providers Care Alarm Mechanism Adjuster Name Role Phone Glenys Hernandez APRN Primary Care Provider [phone] Encounter Details Date Type Department Care Team ([facility] Contact Info) Description 12/07/2021 10:30 AM EDT TH Visit (TeleHealth) Weight and Wellness at [address] [address] [facility] [place] [place] [address] Adult BMI 39.0-39.9 kg/sq m Social History [...] * Patient Instructions* Sita Sandoval RD - 12/07/2021 10:30 AM EDT Nutrition Goals: Continue exercise routine - pool 3 times a week for 45 minutes; start recumbent bike when able - easy and slow; Consistent meal routine - 12 hour eating window; 3 eating events spaced every 3- 4 hours; Balanced plate - 1/2 plate vegetables, 1/4 plate protein, 1/4 plate carbohydrates; ratio 1:2 protein to vegetables; choosing protein at every eating event documented in this encounter Progress Notes * Sita Sandoval RD - 12/07/2021 10:30 AM EDT Nutrition Intervention for Weight Management Initial RD visit with PENNIE Calloway 1965 Telehealth / telephone visit conducted while patient was at home at the following address: [address] [place] [address] Weight Today: Wt Readings from Last 3 Encounters: 10/06/21 105.2 kg (232 lb) 09/26/21 104.3 kg (230 lb) 08/31/20 98.4 kg (217 lb) BMI Readings from Last 3 Encounters: 10/06/21 39.82 kg/m?? 09/26/21 39.48 kg/m?? 08/31/20 37.25 kg/m?? Interview: had physical therapy in the past; neck and low back injuries, spine doesn't twist; Weight Loss History: really big because can't walk - disabled; 2011 - use a cane, no walker; in pain; drink a lot more then eat - rather drink food, always thirsty; currently at highest weight; normal weight previously 170 pounds; gall bladder removed 1987, weight started gaining after that, previous weight 120 pounds; tried to lose weight - vegetarian, not eating past 5pm, adjust meals See previous notes from this remote mortgage underwriter and [facility] provider for full account Typical Dietary Intake: irregular; 2x/day Wakeup - 8:30am-5pm depending on sleep the night before due to pain; variable anytime from ; use sleep appliance for apnea every night; not hungry when wake up; 2 hour after waking B: smoothie - 1 cup blueberries, 2 cup almond milk, 1 scoop slimfast powder 3pm L: salad OR spaghetti OR leftovers D: smoothie before bed Bedtime 1am Typical Beverages: no alcohol; 32 ounce - smoothies 1-2x/day; coffee - 16oz, 2x/day, stevia 3 tbsp,hazelnut creamer; no carbonation, juice - cranapple, 3x/week; no water; Smoking: down to 3-4 cigarettes a day, last cigarette yesterday, using patches; Appetite/Hunger: [x] feels managed with foods/meals outlined above [] discussed meal/snack schedule adjustment today- see goals [] patient identifies eating for reasons other than hunger- see interview above [] Current food Tracking [] discussed potential benefit starting food tracking - see goals Patient Goals from Team: Goals ??? Nutrition - 12/07/21 Nutrition Goals: ??? Continue exercise routine - pool 3 times a week for 45 minutes; start recumbent bike when able - easy and slow; ??? Consistent meal routine - 12 hour eating window; 3 eating events spaced every 3-4 hours; ??? Balanced plate - 1/2 plate vegetables, 1/4 plate protein, 1/4 plate carbohydrates; ratio 1:2 protein to vegetables; choosing protein at every eating event ??? Drink water Bariatric eating behaviors introduced or reviewed: [x] Stop eating at comfortable full point (eating slowly to know, chewing thoroughly) [] Any binging identified? (6 months no binging prior to surgery) [x] Regular meal pattern, avoid grazing, reasonable snack frequency [x] Plan protein at all meals and snacks, eat protein first [x] Total water intake [] eating and drinking by 30 minutes on either side [] Sip rather than gulp [] Reduce coffee intake down to ~1 cup (caffeine) prior to surgery [] Reduce alcohol, ideally avoid [] Currently smoking? [] Former smoker, quit date: (2 months nicotine-free prior to surgery) Activity: walking with cane very limited; bought a recumbent bike - waiting to arrive; pool mon/wed/fri - 45 minutes - walking, floating, extending spine; [x] reviewed current goals [] updated goals Barriers to Change: none identified today Nutrition Goals updated today: (1) continue exercise (2) consistent meal routine (3) balanced plate- choose protein (4) drink water Monitor/Evaluate: [] Needs additional fuv scheduled with this remote mortgage underwriter in Return for F/U already scheduled. (OR) [x] Currently scheduled for: [x] 1st consecutive monthly nutrition visit [x] 2nd consecutive monthly nutrition visit [x] 3rd consecutive monthly nutrition visit (OR) [] Patient has met requirement of 3 consecutive monthly nutrition visits but agrees that ongoing support would be helpful and feasible. Above determined to the best ability of this remote mortgage underwriter. Patient will contact bariatric surgery team for any official determination about about scheduling and insurance requirements ( ) Thank you Sita Sandoval MS RDN LD 60 minutes were spent in visit today, including contact with patient, chart review, and documentation documented in this encounter Plan of Treatment Upcoming Encounters Date Type Department Care Team (Late st Contact Info) Description 12/25/2023 2:00 PM EDT Office Visit Plastic Surgery at [place] [phone] Justin Sevilla MD [facility] [place] [address] 01/23/2024 2:00 PM EDT Office Visit Pain and Spine Center at [place] [phone] Kenneth Martin MD [facility] [place] [address] documented as of this encounter Goals Goal [...] adult documented in this encounter Care Teams Alarm Mechanism Adjuster Relationship Specialty Start Date End Date Glenys Hernandez APRN [address] [place] [address] PCP - General Family Medicine 09/26/21 12/28/22 documented as of this encounter
--- OUTSIDE RECORDS SUMMARY | 2023-11-09 16:48 | XMS_ITS | Encounter Summary ---
Author Organization [facility] [place] [address] Care Team Providers Care Delivery And Mail Sorter Name Role Phone Nick Menendez MD Primary Care Provider [phone] Reason for Visit * Auth/Cert Specialty Diagnoses / Procedures Referred By Mayda jalloh Referred To Contact Diagnoses SPONDYLOSIS, FORAMINAL STENOSIS Procedures PRO LAMINEC/FACETECT/FORAMIN, LUMBAR 1 SEG PRO LAMINEC/FACETECT/FORAMIN, EACH ADDNL LAMINECTOMY, FACETECTOMY & FORAMINOTOMY,LUMBAR, ONE LEVEL (WRVU 15.37) ADD'L INTERSPACES CX., THORACIC, LUMBAR (WRVU 3.47) Referral ID Status Reason Start Date Expiration Date Visits Re quested Visits Authorized [id number] 1 1 Encounter Details Date Type Department Care Team (Late Contact Info) Description 08/31/2020 10:19 AM EDT Anesthesia [place] [address] Juan [address] CRNA [place] [address] Anesthesia Record Procedure Summary Procedure Name Responsible Anesthesiologist Anesthesia Start Time Anesthesia Stop Time LAMINECTOMY, FACETECTOMY & FORAMINOTOMY,LUMBAR, ONE LEVEL (WRVU 15.37) (Left: Spine Lumbar) Juan David Crawford CRNA 08/31/20 1019 08/31/20 1209 Events Date Time Event Comment 08/31/2020 1011 1019 AN Verify 1019 Start 1021 An Start Data 1028 An Induction 1030 An Intubation 1032 Anesthesia Ready 1049 Procedure Start 1148 Procedure Stop 1155 Extubation/LMA Out 1155 an stop data 1209 Recovery or ICU Handoff [place] ent care was transferred to the destination unit staff after review of the patient's medical history, current anesthetic/surgical status and plan, according to the Provider Handoff Checklist. 1209 Stop Meds Name Total Midazolam 4 mg fentaNYL 100 mcg fentaNYL 100 mcg Propofol 300 mg Propofol INF 467.4 mg Rocuronium 40 mg Ondansetron 8 mg Dexamethasone 10 mg Ketorolac 30 mg Sugammadex 200 mg Albuterol Inhaler 4 puff lactated ringers infusion 0 mL * Agents Name O2 Air N2O Sevoflurane (et) * Blood No blood administrations on file. Lines, Drains, and Airways Type Details Placement Removal (RETIRED) Peripheral IV Line - Single Lumen 08/31/20; 0955; (R forearm); [id number]-gylrsn catheter system; 20 gauge; Lucio Sharif; 01/12/21 (LDA Cleanup utility RA#[id number]); 1649 (LDA Cleanup utility RA#[id number]) 08/31/20 0955 by Parminder Sharif RN 01/12/21 165 by Nic Ruiz (RETIRED) Peripheral IV Line - Single Lumen 08/31/20; 0958; basilic vein (medial side of arm), right; [id number] catheter system; Anatomical Landmarks; 20 gauge; Julien Herron Rn; distraction; 01/12/21 (LDA Cleanup utility RA#[id number]); 1649 (LDA Cleanup utility RA#[id number]) 08/31/20 0958 by Priti Kilgore RN 01/12/21 165 by Nic uRiz ETT Mask Ventilation: Adjunct (2); ETT Type: Cuffed, Oral; ETT Size: 7 mm; Indirect: Video; Notes: Asleep, Pre-O2, Cricoid Pressure, Stylette; Attempts: 1; Laryngoscopy Grade: 1; ETT Placement Verified By: Auscultation, Capnometry, Visual; Secured at Teeth: 22 cm; Inserted by: Aleta Crawford CRNA; Removal Date: 08/31/20; Removal Time: 1155 08/31/20 1030 by Juan David Crawford AOC DIRECTOR COMBAT OPERATIONS OFFICER 08/31/20 1155 by Juan David Crawford AOC DIRECTOR COMBAT OPERATIONS OFFICER Incision 08/31/20; 1049; lowe r, posterior; lumbar spine; midline; 12/05/21 (LDA cleanup utility RA#[id number]); 1715 (LDA cleanup utility RA#[id number]) 08/31/20 1049 by David Dupree RN 12/05/21 1715 by Aguila Martinez documented in this encounter Social History Tobacco Use Types Packs/Day Years [...] PM EDT documented as of this encounter OR Notes * Anesthesia Postprocedure Evaluation - Juan David Crawford CRNA - 09/01/2020 12:52 PM EDT Department of Anesthesiology Post-procedure Note Patient: Aydee Johns Procedure Summary Date: 08/31/20 Room / Location: [facility] MA[facility] OR Anesthesia Start: 1019 Anesthesia Stop: 1209 Procedure: LAMINECTOMY, FACETECTOMY & FORAMINOTOMY,LUMBAR, ONE LEVEL (WRVU 15.37) (Left Spine Lumbar) Diagnosis: (SPONDYLOSIS, FORAMINAL STENOSIS) Surgeons: Homar Astudillo MD Responsible Provider: Juan David Crawford CRNA Anesthesia Type: general ASA Status: 3 All Anesthesia Providers: ELIAS Independent: Juan David Crawford CRNA Vitals Value Taken Time BP 146/72 08/31/20 1315 Temp 35.6 ??C (96.1 ??F) 08/31/20 1156 Pulse 82 08/31/20 1315 Resp 16 08/31/20 1315 SpO2 96 % 08/31/20 1315 Pain Level 0 08/31/20 1315 Patient Location: PACU Level of Consciousness: Awake and Alert Pain Management: Satisfactory Analgesia PONV: None Cardiovascular Status: At Baseline Respiratory Status: At Baseline Postoperative Fluid Status: Intravascular EUvolemia Possible Anesthetic Complications: NONE apparent at time of evaluation Final Primary Anesthesia Type: General (The anesthetic type performed was the same as planned.) Comments: See PACU Flow Sheet * Anesthesia Preprocedure Evaluation - Juan David Crawford CRNA - 08/31/2020 10:05 AM EDT Pre-Anesthesia Evaluation for: Aydee Johns a 55 y.o. female. Procedure(s): LAMINECTOMY, FACETECTOMY & FORAMINOTOMY,LUMBAR, ONE LEVEL [facility] Patient Active Problem List Diagnosis ??? Morbid obesity ??? Body mass index (BMI) of 36.0-36.9 in adult ??? Anxiety ??? Depression ??? Stress disorder, posttraumatic ??? Tobacco abuse ??? 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 Obstructive sleep apnea ??? Gastroesophageal reflux ??? Elevated cholesterol ??? Macromastia ??? Neuropathy of both feet ??? Capps neuroma Past Medical History: Diagnosis Date ??? Anxiety [...] Knee to feet bilaterally secondary to Gilda [place], decreased sensation to kimberly arms as well ??? Obstructive sleep apnea 11/03/2015 ??? Stress disorder, posttraumatic 11/04/2015 Past Surgical History: Procedure Laterality Date ??? APPENDECTOMY ??? CHOLECYSTECTOMY ??? COLECTOMY ??? COLONOSCOPY Social History Tobacco Use ??? Smoking status: Current Every Day Smoker Packs/day: 0.50 ??? Smokeless tobacco: Never Used ??? Tobacco comment: smoking cessation info given Substance Use Topics ??? Alcohol use: Never Social History Substance and Sexual Activity Drug Use Yes ??? Types: Marijuana Comment: occasional for pain control Allergies Allergen Reactions ??? Cymbalta [Duloxetine] Anaphylaxis ??? Aspirin Abd pain ??? Metoprolol Rash ??? Nsaids (Non-Steroidal Anti-Inflammatory Drug) ABD pain ??? Codeine Phosphate ??? Dilantin [Phenytoin] ??? Dye Radio active for a heart test ??? Ez Flu 2015-16(Flucelvax)(Pf) [Flu Vac Ts 15-16(18,Up)Johanne(Pf)] ??? Flonase [Fluticasone] Nausea Only headache ??? Penicillins ??? Savella [Milnacipran] unsure ??? Unable To Find [Unclassified Drug] Fluzone Quadrivalent ( Influenza vac split quad) Medications: MAR and/or home medications have been reviewed. Physical Exam: Preprocedure Vitals Current as of 08/31/20 1005 BP: 158/78 Pulse: 80 Resp: 18 SpO2: 98 Temp: 36.3 ??C (97.3 ??F) Height: 162.6 cm (5' 4) (08/31/20) Weight: 98.4 kg (217 lb) (08/31/20) BMI: 37.24 IBW: 54.7 kg (120 lb 10.7 oz) Last edited 08/31/20 0948 by APOLONIA Airway Assessment: Mallampati: II TM distance: <3 FB Neck ROM: limited Cardiovascular Assessment: Rhythm: regular Rate: normal Pulmonary Assessment: breath sounds clear to auscultation Dental Assessment: - normal exam Misc Assessment: Patient is wearing No contact(s). IV access: Peripheral line Last Filed Perioperative Cognitive Screening None Anesthesia Plan: ASA 3 general, with a(n) intravenous induction Region - Intrathoracic Cardiac Informed Consent: Anesthetic plan and risks discussed with patient. Anesthesia Screening documented in this encounter Plan of Treatment Upcoming Encounters Date Type Department Care Team (Late st Contact Info) Description 12/25/2023 2:00 PM EDT Office [place] [address] Justin Sevilla MD [facility] [place] [address] 01/23/2024 2:00 PM EDT Office Visit Pain and Spine Center at [facility] [place] [address] Kenneth Martin MD [facility] [place] [address] documented as of this encounter Visit Diagnoses Not on filedocumented in this encounter Administered Medications Inactive Administered Medications - up to 3 most recent administrations Medication Order MAR Action Action Date Dose Rate Site albuteroL 90 mcg/actuation inhaler Inhalation, PRN, Starting on Sun08/31/20 at 1209, Until Sun08/31/20 at 1353, Anesthesia Intra-op, Routine Given 08/31/2020 12:09 PM EDT 4 puffs dexamethasone (Decadron) injection Intravenous, PRN, Starting on Sun08/31/20 at 1048, Until Sun08/31/20 at 1209, Anesthesia Intra-op, Routine Given 08/31/2020 10:48 AM EDT 10 mg fentaNYL (pf) (50 mcg/mL) multi-dose injection Intravenous, PRN, Starting on Sun08/31/20 at 1028, Until Sun08/31/20 at 1209, Anesthesia Intra-op, Routine Given 08/31/2020 10:28 AM EDT 100 mcg fentaNYL (pf) (50 mcg/mL) multi-dose injection Epidural, PRN, Starting on Sun08/31/20 at 1130, Until Sun08/31/20 at 1209, Anesthesia Intra-op, Routine Given 08/31/2020 11:30 AM EDT 100 mcg ketorolac (Toradol) (30 mg/mL) injection Intravenous, PRN, Starting on Sun08/31/20 at 1138, Until Sun08/31/20 at 1209, Anesthesia Intra-op, Routine Given 08/31/2020 11:38 AM EDT 30 mg midazolam (pf) (Versed) (1 mg/mL) multi-dose injection Intravenous, PRN, Starting on Sun08/31/20 at 1019, Until Sun08/31/20 at 1209, Anesthesia Intra-op, Routine Given 08/31/2020 10:21 AM EDT 1 mg Given 08/31/2020 10:19 AM EDT 3 mg ondansetron (pf) (Zofran) (2 mg/mL) injection Intravenous, PRN, Starting on Sun08/31/20 at 1048, Until Sun08/31/20 at 1209, Anesthesia Intra-op, Routine Given 08/31/2020 10:48 AM EDT 8 mg propofoL (Diprivan) 10 mg/mL bolus injection (Anesthesia) Intravenous, PRN, Starting on Sun08/31/20 at 1028, Until 08/31/20 at 1209, Anesthesia Intra-op Given 08/31/2020 10:28 AM EDT 300 mg propofoL (Diprivan) infusion Intravenous, CONTINUOUS PRN, Starting on Sun08/31/20 at 1047, Until Sun08/31/20 at 1209, Anesthesia Intra-op, Routine Rate/Dose Change 08/31/2020 11:31 AM EDT 150 mcg/kg/min 88.56 mL/hr New Bag 08/31/2020 10:47 AM EDT 50 mcg/kg/min 29.52 mL/ hr rocuronium (Zemuron) 10 mg/mL injection Intravenous, PRN, Starting on Sun08/31/20 at 1028, Until 08/31/20 at 1209, Anesthesia Intra-op, Routine Given 08/31/2020 10:28 AM EDT 40 mg sugammadex (Bridion) 100 mg/mL injection Intravenous, PRN, Starting on Sun08/31/20 at 1140, Until Sun08/31/20 at 1209, Anesthesia Intra-op, Routine Given 08/31/2020 11:40 AM EDT 200 mg documented in this encounter Care Teams Delivery And Mail Sorter Relationship Specialty Start Date End Date Nick Menendez MD [address] [place] [id number] PCP - General General Internal Medicine 03/06/1608/12 documented as of this encounter
--- OUTSIDE RECORDS SUMMARY | 2023-11-09 16:48 | XMS_ITS | Encounter Summary ---
Author Organization [facility] [place] [address] Care Team Providers Care Wrapper Stripper Name Role Phone Nick Menendez MD Primary Care Provider [phone] Encounter Details Date Type Department Care Team (Late Contact Info) Description 01/25/2021 Ancillary Procedure Radiology at [facility] [address] [place] [id number] Homar Astudillo MD [address] [place] [address] Social History Tobacco Use Types Packs/Day Years [...] PM EDT Office [place] [address] Justin Sevilla MD [facility] [place] [address] 01/23/2024 2:00 PM EDT Office Visit [facility] [place] [address] Kenneth Martin MD [facility] [place] [address] documented as of this encounter Procedures Procedure Name Priority Date/Time Associated Diagnosis Comments FILM LIBRARY STORAGE ONLY MR SPINE Routine 01/25/2021 12:00 AM EDT documented in this encounter Results * Film Library- Storage Only MR Spine (01/25/2021 12:00 AM EDT) Narrative [facility] - 01/26/2021 9:04 AM EDT This exam is auto-finalizing. It's purpose is for storage only. Homar Astudillo MD IMG FILM LIBRARY ORD ERABLES [place], [place] documented in this encounter Visit Diagnoses Not on filedocumented in this encounter Care Teams Wrapper Stripper Relationship Specialty Start Date End Date Nick Menendez MD [address] [place] [id number] PCP - General General Internal Medicine 03/06/1608/12 documented as of this encounter
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
--- OUTSIDE RECORDS SUMMARY | 2023-11-09 16:48 | XMS_ITS | Encounter Summary ---
[place] [address] Care Team Providers Care Methane Gas Collection System Operator Name Role Phone Glenys Hernandez APRN Primary Care Provider [phone] Encounter Details Date Type Department Care Team (Late st Contact Info) Description 04/17/2022 Telephone Weight and Wellness at [address] [address] Suzi Reid Social History Tobacco [...] * Telephone Encounter - Suzi Reid - 04/17/2022 11:30 AM EST Pt calling to inform that she will not be continuing with the [facility] or Bariatric program due to the requirement to quit smoking. Pt cancelled all [facility] appointments. documented in this encounter Plan of Treatment Upcoming Encounters Date Type Department Care Team (Late Contact Info) Description 12/25/2023 2:00 PM EDT Office [place] [phone] Justin Sevilla MD [facility] [place] [address] 01/23/2024 2:00 PM EDT Office Visit [facility] at [facility] [place] [address] Kenneth Martin MD [facility] [place] [address] documented as of this encounter Goals Goal [...] on filedocumented in this encounter Care Teams Methane Gas Collection System Operator Relationship Specialty Start Date End Date Glenys Hernandez APRN [address] [place] [address] PCP - General Family Medicine 09/26/21 12/28/22 documented as of this encounter
--- OUTSIDE RECORDS SUMMARY | 2023-11-09 16:48 | XMS_ITS | Encounter Summary ---
[facility] [place] [address] Care Team Providers Care Assembly Operator Name Role Phone Glenys Hernandez APRN Primary Care Provider [phone] Encounter Details Date Type Department Care Team ([facility] Contact Info) Description 03/07/2022 Telephone [place] [phone] Zoraida Esc[address]ona RD [facility] [place] [address] Social History Tobacco Use Types Packs/Day Years [...] encounter Miscellaneous Notes * Telephone Encounter - Zoraida Escalona RD - 03/07/2022 3:18 PM EST Called pt in response to message from Meghna Agee. Pt asked how much the vitamin and mineral supplements cost after surgery. Reviewed costs and what vitamin and mineral supplements she will need to take. Pt asked if potential back surgery will interfere with bariatric surgery. Advised pt that one of the nurse practitioners would discuss with the surgeon and call her back. Encouraged pt to call back with any additional questions or concerns. documented in this encounter Plan of Treatment Upcoming Encounters Date Type Department Care Team (Late st Contact Info) Description 12/25/2023 2:00 PM EDT Office [place] [phone] Justin Sevilla MD [facility] [place] [address] 01/23/2024 2:00 PM EDT Office Visit [facility] [place] [phone] Kenneth Martin MD [facility] [place] [address] documented as of this encounter Goals Goal [...] on filedocumented in this encounter Care Teams Assembly Operator Relationship Specialty Start Date End Date Glenys Hernandez APRN [address] [facility] [place] [address] PCP - General Family Medicine 09/26/21 12/28/22 documented as of this encounter
--- OUTSIDE RECORDS SUMMARY | 2023-11-09 16:48 | XMS_ITS | Encounter Summary ---
Author Organization [facility] [place] [address] Care Team Providers Care Garment Parts Cutter Machine Name Role Phone Glenys Hernandez APRN Primary Care Provider [phone] Encounter Details Date Type Department Care Team ([facility] Contact Info) Description 12/27/2021 2:30 PM EDT TH Visit (TeleHealth) Weight and Wellness at [address] [address] Codie Weinberg MD [facility] [address] [facility]ICA [place] [address] Elevated cholesterol; High triglycerides; Obstructive sleep apnea; Gastroesophageal reflux disease, unspecified whether esophagitis present; Class 2 severe obesity with serious comorbidity and body mass index (BMI) of 39.0 to 39.9 in adult, unspecified obesity type Social History Tobacco Use [...] - Inhaled Oxygen Concentration - - Weight 104.8 kg (231 lb) 12/27/2021 2:50 PM EDT Pt reported Height - - Body Mass Index 39.65 09/26/2021 1:10 PM EDT documented in this encounter Patient Instructions * Patient Instructions* Codie Weinberg MD - 12/27/2021 2:30 PM EDT Continue engaging in health promoting behaviors. Stop caffeine (2 weeks prior to surgery) Continue to avoid grazing or mindless eating, and eat only at meal or snack times Consider logging food using an jayesh such as AppVault or 1000museums.com, paper and pencil is also a good method to help identify patterns Continue behavioral changes, especially: -Eating slowly, taking 20-30 min to complete a meal. Set aside plenty of time for the meal, take smaller bites (children???s utensils can help with this), leave reminders for yourself (e.g., notes, signs) in the places you eat - eating and drinking by 30 minutes. Don???t bring a drink to the table, decrease amount over time (e.g., ?? glass, then ?? glass, then ?? glass, etc), avoid really dry foods/try to eat moist foods, set a timer (can taper up gradually), leave notes for yourself (on the table, refrigerator, and cabinet doors tend to be good places), minimize salty foods, chew food more to produce more saliva -Increasing exercise. Park further away, take steps instead of elevators, swimming is great for those with pain/difficulty walking, walking is cheap and easy, get an exercise partner (family, friend,or pet will do), listen to music while you exercise, try different types of exercise to find one you like (e.g., walking, riding bike, going to gym, swimming, exercise videos), get on a regular exercise schedule, do chair exercises for upper body if knees/legs/back are problems -Sipping water. Use a sippy cup, freeze a partially filled bottle of water and sip as it melts, usea sports bottle with a pop-up lid, keep water available at all times, set timer to remind self to take sips if needed, don???t wait until you???re thirsty to drink documented in this encounter Progress Notes * Codie Weinberg MD - 12/27/2021 2:30 PM EDTSummary: 2nd visit with Patient provided verbal consent prior to initiation of this telemedicine encounter and expressed understanding that the telemedicine visit may be billed similar to a clinic visit, pt was seen while via [x] Video [] phone For this video visit, pt is located at: Home in [facility] [place] Patient Name: Aydee Johns Date of : 1965 Age: 56 y.o. Glenys Hernandez APRN Thank you for referring Aydee Johns to the [facility]. I saw her for a follow-up visit today, 12/27/21. Please see changes to care as documented in the assessment and plan. CHIEF COMPLAINT: F/u for treatment of WHO Class 2 / EOSS Stage 2 Obesity defined by initial BMI and co-morbidities: PATRICIA - uses dental piece, hypercholesterolemia, hypertriglyceridemia, GERD, IFG, migraine. This is Visit #2 [facility] visit for this 56 y.o. patient. 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 Since 2011, steadilygained. Initial weight 10/09/21: 232 lbs 12/27/2021, 231 lbs [facility] Team: Sita Sandoval RD HPI Had lab work done and saw RD. Trying to work on improving smoothie - whey vs slim fast, one cup almond milk vs 2, can add PB. In pain from morning until night, appetite is poor with the pain. PILLARS Stress - Constantly stressed with pain. My body is under attack. Movement - 45 minutes in the pool 3x a week. Walking in pool. Ordered a recumbent bike. Sleep - study will be arranged through PCP. Doesn't sleep very well - if I roll over the wrong way.. . 24 hour recall - yesterday was a PT day, high pain level, low appetite 2 macedonian sausages with white rice in a tortilla Drinking - coffee with stevia and hazelnut creamer Jaime checklist: + smoker - quit date Sunday No ETOH, no drugs ? PATRICIA - PCP arranging sleep appt No major psych hx No soda drinking Pap 09/2021 [place] scheduled 04/2022 Contraception - abstinence and menopause. AOM: Currently taking: none AOM HX:N/A Medication C/I: Any h/o pancreatitis? NO Any h/o kidney stones? NO Any h/o or FHx of thyroid CA (MTC?) NO Any h/o kidney disease/failure? NO Any h/o glaucoma? YES - had laser procedure ?? Gynecologic: using/taking reliable contraception? Menopause COMORBIDITIES ADDRESSED: PATRICIA + with appliance ([facility]) HTN NO HL YES FLD ? Diabetes continuum ? IR Obesogenic meds: Neurontin REVIEW OF LABS/DIAGNOSIS SINCE LAST VISIT Labs requested today [x] I reviewed past / interim records including notes and labs. ONGOING INTERVENTIONS (Topics discussed today in BOLD): For specific behavioral interventions, see goals Nutrition: specific recommendations per RD Prebariatric counseling Behavior: Undefined eating patterns Activity: See goals - advancing Barriers: []needs cardiac eval [x]injury/pain preventing activity right now Stress Management:no concerns Sleep: concern for PATRICIA, refer to sleep med - has worked with [facility] - Dr. West Self-monitoring: Food log Groups of interest: []HLP-ES [] HLP-MS [] HLP-LS []Culinary []ACT []Monthly Lifestyle Classes Discussion 12/27/21: Current pillars reviewed. BSP and requirements discussed. Paperwork reviewed as well. Major barrier is smoking and pt has quit date. Knows to call BS about whether nicotine patches are ok. Will also reach out about PCP letter of support. [facility] - AD[facility] 10/09/2021 Pre- Bariatric Surgery Activate Goals ??? Nutrition - 12/07/21 Nutrition Goals: [...] at every eating event ??? Drink water VITAL SIGNS: Vitals: 12/27/21 1450 Weight: 104.8 kg (231 lb) Body mass index is 39.65 kg/m??. PHYSICAL EXAM: Gen: Alert and appropriate, NAD. LABS: Lab Results Component Value Date PLATELET 318 08/29/2021 Lab Results Component Value Date NA 142 08/29/2021 K 4.0 08/29/2021 CL 104 08/29/2021 CO2 28 08/29/2021 BUN 12 08/29/2021 CREATININE 0.8 08/29/2021 GLUCOSE 110 (H) 08/29/2021 CALCIUM 9.1 08/29/2021 ESTGFR >60 08/29/2021 Lab Results Component Value Date ALT 23 08/29/2021 AST 13 (L) 08/29/2021 ALKPHOS 79 08/29/2021 BILITOT 0.5 08/29/2021 ALBUMIN 4.2 08/29/2021 PROT 7.4 08/29/2021 Lab Results Component Value Date CHLPL 311 (H) 08/29/2021 HDL 46 08/29/2021 TRIG 308 (H) 08/29/2021 LDLCHOL 204 (H) 08/29/2021 No results found for: HA1C No results found for: TSH No results found for: LABINSU No results found for: GLUCFASTING No results found for: LKQHQQTY47 No results found for: 25OHVITD No results found for: URICACID ASSESSMENT AND PLAN Aydee Johns was seen in follow up today for ongoing Metabolically unhealthy obesity not yet at treatment goal [] with improvement [x] without change. Goals and treatment options were discussed. Continue medical management and lifestyle changes. For specific behavioral interventions, see goals/AVS FACTORS ASSOCIATED WITH OBESITY Risk Stratification: possible insulin resistance Obesogenic meds: Neuropathic pain control Plan: No change at this time Metabolic Co-morbidities addressed with weight loss: Dyslipidemia and Hypertriglyceridemia Other Co-Morbidities impacted by weight loss: Anxiety, Depression, GERD, PATRICIA- untreated and Smoker Referrals pending: Dietitian, individual Pyschology, embedded, bariatric AOM: None at this time Diagnoses and all orders for this visit: Elevated cholesterol High triglycerides Obstructive sleep apnea Gastroesophageal reflux disease, unspecified whether esophagitis present Class 2 severe obesity with serious comorbidity and body mass index (BMI) of 39.0 to 39.9 in adult,unspecified obesity type No orders of the defined types were placed in this encounter. Return in about 2 months (around 02/26/2022) for In person or Zoom, With me. 3 min chart review 30 min [id number] Visit time 5 min Documentation time I spent time as above caring for this patient today; reviewing labs, writing prescriptions, documenting visit, examining the patient, arranging other specialty care, counseling in diet and/or exercise and discussion of treatment options in the care of obesity. documented in this encounter Plan of Treatment Upcoming Encounters Date Type Department Care Team (Late st Contact Info) Description 12/25/2023 2:00 PM EDT Office [place] [phone] Justin Sevilla MD [facility] [place] [address] 01/23/2024 2:00 PM EDT Office Visit [place] [address] Kenneth Martin MD [facility] [place] [address] documented as of this encounter Goals Goal [...] as of this encounter Visit Diagnoses Diagnosis Elevated cholesterol Pure hypercholesterolemia High triglycerides Pure hyperglyceridemia Obstructive sleep apnea Obstructive sleep apnea (adult) (pediatric) Gastroesophageal reflux disease, unspecified whether esophagitis present Class 2 severe obesity with serious comorbidity and body mass index (BMI) of 39.0 to 39.9 in adult, unspecified obesity type documented in this encounter Care Teams Garment Parts Cutter Machine Relationship Specialty Start Date End Date Glenys Hernandez, LIABILITY ANALYST [address] [place] [address] PCP - General Family Medicine 09/26/21 12/28/22 documented as of this encounter
--- OUTSIDE RECORDS SUMMARY | 2023-11-09 16:48 | XMS_ITS | Encounter Summary ---
[place] [address] Care Team Providers Care Government Services Professional Name Role Phone Glenys Hernandez APRN Primary Care Provider [phone] Encounter Details Date Type Department Care Team ([facility] Contact Info) Description 12/28/2021 10:30 AM EDT TH Visit (TeleHealth) Weight and Wellness at [address] [address] [facility] [place] [address] Adult BMI 39.0-39.9 kg/sq m Social History [...] * Patient Instructions* Sita Sandoval RD - 12/28/2021 10:30 AM EDT Nutrition Goals: Continue exercise routine - pool 3 times a week for 45 minutes; start recumbent bike when able - easy and slow; Consistent meal routine - use food journal on computer; 12 hour eating window; 3 eating events spaced every 3-4 hours, 9am/1pm/7pm Choose protein at every eating event Drink water - work towards goal 48ounces or more; increase fluids in morning Quit Day for Smoking - SundayJanuary 01 documented in this encounter Progress Notes * Sita Sandoval RD - 12/28/2021 10:30 AM EDT Nutrition Intervention for Weight Management Initial RD visit with PENNIE Calloway 1965 Telehealth / telephone visit conducted while patient was at home at the following address: [address] [place] [address] Weight Today: Wt Readings from Last 3 Encounters: 12/27/21 104.8 kg (231 lb) 10/06/21 105.2 kg (232 lb) 09/26/21 104.3 kg (230 lb) BMI Readings from Last 3 Encounters: 12/27/21 39.65 kg/m?? 10/06/21 39.82 kg/m?? 09/26/21 39.48 kg/m?? Interview: hard - eating during pain; increased water - very little; occasional smoothie; Weight Loss History: See previous notes from this residential mortgage underwriter and [facility] provider for full account Typical Dietary Intake: 1x/day due to pain B:water, coffee L: 7pm D: spaghetti, garlic bread - 3 pieces S: Smoking: can't use patches; quit day plans to be SundayJanuary 01 - started support group; Typical Beverages: coffee - 1-2x/day, 12oz; water - very little; Appetite/Hunger: [x] feels managed with foods/meals outlined [...] and slow; ??? Consistent meal routine - use food journal on computer; 12 hour eating window; 3 eating events spaced every 3-4 hours, 9am/1pm/7pm ??? Choose protein at every eating event ??? Drink water - work towards goal 48ounces or more; increase fluids in morning ??? Quit Day for Smoking - SundayJanuary 01 Bariatric eating behaviors introduced or reviewed: [] Stop eating at comfortable full point (eating slowly to know, chewing thoroughly) [] Any binging identified? (6 months no binging prior to surgery) [x] Regular meal pattern, avoid grazing, reasonable snack frequency [x] Plan protein at all meals and snacks, eat protein first [x] Total water intake - increase slowly to 48 ounces or more [x] eating and drinking by 30 minutes on either side; haven't been eating much, haven't practiced [x] Sip rather than gulp [x] Reduce coffee intake down to ~1 cup (caffeine) prior to surgery [] Reduce alcohol, ideally avoid - NONE [x] Currently smoking - YES, plans to quit January 01 [] Former smoker, quit date: (2 months nicotine-free prior to surgery) Activity: physical therapy 3x/week, all water; recumbent bike [x] reviewed current goals [] updated goals Barriers to Change: none identified today Nutrition Goals updated today: (1) smoking quit date 01/01/22 (2) continue exercise (3)consistent meal routine (4) choose protein at eating events (5) increase fluid Monitor/Evaluate: [x] Needs additional fuv scheduled with this residential mortgage underwriter in Return in about 2 months (around 02/27/2022)for Paula CHOWDHURY. (OR) [x] Currently scheduled for: [x] 1st consecutive monthly nutrition visit [x] 2nd consecutive monthly nutrition visit [x] 3rd consecutive monthly nutrition visit (OR) [] Patient has met requirement of 3 consecutive monthly nutrition visits but agrees that ongoing support would be helpful and feasible. Above determined to the best ability of this residential mortgage underwriter. Patient will contact bariatric surgery team for any official determination about about scheduling and insurance requirements ( ) Thank you Sita Sandoval MS, RDN LD 30 minutes were spent in visit today, including contact with patient, chart review, and documentation documented in this encounter Plan of Treatment Upcoming Encounters Date Type Department Care Team (Late st Contact Info) Description 12/25/2023 2:00 PM EDT Office [place] [address] Justin Sevilla MD [facility] [place] [address] 01/23/2024 2:00 PM EDT Office Visit [facility] at [place] [phone] Kenneth Martin MD [facility] [place] [address] documented as of this encounter Goals Goal [...] adult documented in this encounter Care Teams Government Services Professional Relationship Specialty Start Date End Date Glenys Hernandez APRN [address] [place] [address] PCP - General Family Medicine 09/26/21 12/28/22 documented as of this encounter
--- OUTSIDE RECORDS SUMMARY | 2023-11-09 16:49 | XMS_ITS | Encounter Summary ---
Author Organization [facility] Address [address] [place] [address] Care Team Providers Care Photographer Portrait Name Role Phone Jennifer Sr MD Primary Care Provider [phone] Jacey Amador Primary Care Provider [phone] Encounter Details Date Type Department Care Team ([facility] st Contact Info) Description 08/23/2020 Lab Requisition [facility] Pathology & Laboratory Medicine - [address] [address] Outr Resulting Lab, Provider Social History Tobacco Use Types Packs/Day Years Used Date Smoking Tobacco: Never Assessed Interpersonal Safety Answer Date Record ed Physically Hurt Never 11/09/2019 Verbally Threaten Not on file 11/09/2019 Sex and Gender Information Value Date Recorded Sex Assigned at Not on file Gender Identity Female 05/16/2019 9:18 EST Sexual Orientation Not on file documented as of this encounter Functional Status Functional Status Response Date of Assess ment Because of a physical, menta l, or emotional condition, does this person have difficulty doing errands alone such as visiting a doctor's office or shopping? Yes 12/17/2018 Cognitive Status Response Date of Assessm ent Because of a physical, menta l, or emotional condition, does this person have serious difficulty concentrating, remembering, or making decisions? Yes 01/14/2018 documented as of this encounter Plan of Treatment Not on file documented as of this encounter Procedures Procedure Name Priority Date/Time Associated Diagnosis Comments SPEP WITH IMMUNOTYPING PERFORMABLE Today 08/23/2020 12:11 EDT SPEP WITH IMMUNOTYPING Routine 08/23/2020 12:11 EDT PROTEIN, TOTAL Today 08/23/2020 12:11 EDT documented in this encounter Results * SPEP WITH IMMUNOTYPING PERFORMABLE (08/23/2020 12:11 EDT) Albumin % 62.6 55.8 - 66.1 % 08/25/2020 6:27 EDT [facility] Alpha-1 % 3.4 2.9 - 4.9 % 08/25/2020 6:27 T [facility] Alpha-2 % 10.1 7.1 - 11.8 % 08/25/2020 6:27 T [facility] Beta % 11.2 8.4 - 13.1 % 08/25/2020 6:27 T [facility] Gamma % 12.7 11.1 - 18.8 % 08/25/2020 6:27 [facility] SPEP Comment No apparent monoclonal protein seen on serum electrophoresis 08/25/2020 6:27 [facility] Comment:See scanned/suppleme ntary report. Immunotyping , Serum Current Interpretation: Negative for monoclonal immunoglobulins. Reviewed by: Antonio Sorensen MD 08/24/2020 15:12 08/25/2020 6:27 [facility] Total Protein 7.2 6.3 - 8.2 g/dL 08/25/2020 6:27 [facility] Blood VENOUS BLOOD / Unknown 08/23/2020 12:11 EDT 08/23/2020 21:28 EDT Provider Outr Resulting Lab CHEMISTRY & BLOOD GAS ORDERABLES [facility] [address] [place] [address] * PROTEIN, TOTAL (08/23/2020 12:11 EDT) Blood VENOUS BLOOD / Unknown 08/23/2020 12:11 EDT 08/23/2020 21:28 EDT Provider Outr Resulting Lab CHEMISTRY & BLOOD GAS ORDERABLES [facility] [address] [place] [address] documented in this encounter Visit Diagnoses Not on filedocumented in this encounter Care Teams Photographer Portrait Relationship Specialty Start Date End Date Jennifer Sr MD [address] [place] [address] PCP - General 12/03/18 08/29/22 Jacey Amador FNP [facility] [address] [facility] [address] [place] [phone] PCP - General Family Medicine - Primary Care 08/30/22 documented as of this encounter
--- OUTSIDE RECORDS SUMMARY | 2023-11-09 16:49 | XMS_ITS | Encounter Summary ---
Author Organization [facility] Address [address] [place] [address] Care Team Providers Care Load Out Supervisor Name Role Phone Jennifer Sr MD Primary Care Provider [phone] Reason for Visit * Reason Comments Obesity online intro Encounter Details Date Type Department Care Team ([facility] Contact Info) Description 03/04/2019 9:00 EST Education [facility] Bariatric Surgery [place] [address] [place] [address] Obesity, unspecified classification, unspecified obesity type, unspecified whether serious comorbidity present (Primary Dx) Social History Tobacco Use Types Packs/Day Years Used Date Smoking Tobacco: Every Day Cigarettes 1 40 Smokeless Tobacco: Never Comments:since 11 yo Alcohol Use Standard Drinks/Week Comments No 0 [...] Yes 01/14/2018 documented as of this encounter Progress Notes * Ping Lamar MA - 03/04/2019 0900 EST Aydee Johns 1965 arrived for the Metabolic and Bariatric Surgery Program Online Introductory Class. All program requirements, surgical procedures including risks and benefits, and insurance approval process reviewed in detail. Power point presentation, verbal instruction, and handouts provided during the class. At the end ofthe class the patient is asked to complete the second part of the health questionnaire and are provided food logs and insurance benefit verification form to complete. Patient is advised when they come for the psychological evaluation they must bring the completed food diary as well as the insurancebenefit verification form. Aydee [place] was given an appointment with Melba Casper the program psychologist which is the next step in the Metabolic and Bariatric Surgery Program. documented in this encounter Plan of Treatment Not on file documented as of this encounter Visit Diagnoses Diagnosis Obesity, unspecified classification, unspecified obesity type, unspecified whether serious comorbidity present- Primary documented in this encounter Care Teams Load Out Supervisor Relationship Specialty Start Date End Date Jennifer Sr MD [address] [place] [address] PCP - General 12/03/18 08/29/22 documented as of this encounter
--- OUTSIDE RECORDS SUMMARY | 2023-11-09 16:49 | XMS_ITS | Encounter Summary ---
[place] [address] Care Team Providers Care Teachers Assistant Name Role Phone JAY Ann, Cassidy Primary Care Provider [phone] Encounter Details Date Type Department Care Team (Late st Contact Info) Description 01/28/2015 External [place] [phone] Provider, Scanning Social History Tobacco Use Types Packs/Day Years Used Date Smoking Tobacco: Every Day Cigarettes Smokeless Tobacco: Never Alcohol Use Standard Drinks/Week Comments No 0 [...] PM EDT Office [place] [address] Justin Sevilla MD [facility] [place] [address] 01/23/2024 2:00 PM EDT Office Visit [facility] [place] [address] Kenneth Martin MD [facility] [address] documented as of this encounter Procedures Procedure Name Priority Date/Time Associated Diagnosis Comments SURGICAL PATHOLOGY SCAN Routine 01/28/2015 documented in this encounter Results * Scan Doc: Surgical Pathology (01/28/2015) Stuart Miner MD MEDIA MGR SCAN EXT O RDR/RSLT documented in this encounter Visit Diagnoses Not on filedocumented in this encounter Care Teams Teachers Assistant Relationship Specialty Start Date End Date Cassidy Ware PA PCP - General 09/04/14 08/26/15 documented as of this encounter
--- OUTSIDE RECORDS SUMMARY | 2023-11-09 16:49 | XMS_ITS | Encounter Summary ---
[place] [address] Care Team Providers Care Machine Spring Former Name Role Phone Sheila Cosby MD Primary Care Provider [phone] Encounter Details Date Type Department Care Team (Late st Contact Info) Description 09/08/2015 [place] [id number] Cassidy Ware PA [address] [place] [id number] Social History Tobacco Use Types Packs/Day Years [...] encounter Miscellaneous Notes * Telephone Encounter - Justin Mir MD - 09/08/2015 11:00 AM EDT Spoke to , the patient's PCP, at length. 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 I told her this was extremely mild, but, because the patient had many questions, she wanted someone to see the patient to answer her questions. I recommended that might be best to address these questions since he has seen her in the past. I also recommended that she obtain an MRI of the cervical spine without shaina BEFORE she sees him to confirm that the episode she had was not a mild post-infectious myelitis. documented in this encounter Plan of Treatment Upcoming Encounters Date Type Department Care Team (Late st Contact Info) Description 12/25/2023 2:00 PM EDT Office [place] [address] Justin Sevilla MD [facility] [place] [address] 01/23/2024 2:00 PM EDT Office Visit [facility] [place] [phone] Kenneth Martin MD [facility] [place] [address] documented as of this encounter Visit Diagnoses Not on filedocumented in this encounter Care Teams Machine Spring Former Relationship Specialty Start Date End Date Sheila Cosby MD PCP - General Family Medicine 08/27/15 10/11/15 documented as of this encounter
--- OUTSIDE RECORDS SUMMARY | 2023-11-09 16:49 | XMS_ITS | Encounter Summary ---
Author Organization [facility] Address [address] [place] [address] Care Team Providers Care Aerial Lineman Name Role Phone Jennifer Sr MD Primary Care Provider [phone] Reason for Visit * Reason Comments Pain Pain Encounter Details Date Type Department Care Team ([facility] Contact Info) Description 06/20/2019 9:30 EDT Office Visit [facility] [address] [place] [address] Altagracia Lozano, SUNSHINE [address] [place] [address] Greater trochanteric bursitis of left hip (Primary Dx) Social History Tobacco Use Types [...] Yes 01/14/2018 documented as of this encounter Patient Instructions * Patient Instructions* Adenike Agee MA - 06/20/2019 9:30 EDT Post Injection Care The information below is provided to help you manage your post-injection experience. Please feel free to call if you have any concerns after receiving your injection. Medications used in your injection today may include: ??? Lidocaine (a short acting anesthetic) ??? Marcaine (a long acting anesthetic) ??? Steroid (synthetic cortisone - i.e. Depo-Medrol) ??? Euflexxa or Gel One (viscoelastic supplementation) Normal findings after the injection include: ??? Soreness, slight throbbing or swelling at the injection site for up to two days ??? Two to three days for the pain to be relieved ??? Increased joint pain or discomfort for the first 24 to 48 hours before the steroid takes effect Recommendations after injection: ??? Rest the injected extremity for the next TWO DAYS (no exercise or strenuous activity) ??? Apply ice to the injection area for 10 to 15 minutes every hour or two for the first day ??? Take Tylenol (acetaminophen) or Advil (ibuprofen) as directed by rope cleaner if not contraindicated ??? No Swimming for 24hours; No Soaking or Hot Tub for 48hours. Please contact our office if the following occurs: ??? Severe itching or rash anywhere on your body; if this is accompanied by shortness of breath please go to your nearest Emergency Room ??? Extreme redness, swelling or warmth at the injection site ??? These symptoms could be signs of an early infection, which is rare The amount and duration of pain relief from an injection varies widely between patients; some report pain relief for months, while other patients report only a few weeks of relief. DIABETIC WARNING: If you are diabetic, this injection may elevate your blood sugars for the next one to five days. Please monitor your blood sugars closely and if they fail to return to your acceptable level please see your primary care physician Thank you for choosing the [facility] for your care. If you have any questions after receiving an injection, or if your pain does not subside, please call at [phone] and let us know. Our goal is to lessen your pain and improve your function. documented in this encounter Progress Notes * Adenike Agee MA - 06/20/2019929 EDT Hip Injection Bupivacaine 0.5% 10 mL Med lot number: [id number] [facility] number: [id number] Exp date: 09/28 Investment Trader:GILMA med Drug waste: 10 mL vial, used 4 mL, wasted 6 mL Methyiprednisolone 40 mg/mL Med lot number: [id number] [facility] number: [id number] Exp date: 05/30 Investment Trader: vocaltap Drug :1 mL vial, used 1 mL, wasted 0 mL ADENIKE AGEE MA 9:36 * Altagracia Lozano APRN - 06/20/201930 EDT Corticosteroid Injection Procedure (): Left Hip, greater trochanteric bursal injection Previous office notes and imaging studies were reviewed. This patient's past medical history, medications, allergies/adverse drug reactions were reviewed and updated. Trochanteric bursal injection: The indications and contraindication as well as the risks and benefits of the injection were reviewed with the patient. The patient understands the risks, including failure to relieve pain, infection, allergic reaction, and increased pain. At this time the patient elects to proceed with the cortisone injection. A verbal consent was obtained. A procedural timeout wasperformed confirming the patient's identity, procedure, and laterality. Using ethyl chloride as a local anesthetic, under sterile conditions, the left trochanteric bursa was injected with 4mL of 0.5% bupivacaine, and 40mg of depo-medrol via 22 gauge spinal needle. There were no complications. The patient tolerated this well. Steroid flare risk and self-management discussed. Patient will contact me if any signs of infectionpresent. Disposition: Follow-up in 6 months, sooner as needed Dr. Hills was the Orthopedic Attending present in the clinic, no additional consultation with Attending was needed for today's visit documented in this encounter Plan of Treatment Not on file documented as of this encounter Visit Diagnoses Diagnosis Greater trochanteric bursitis of left hip- Primary Enthesopathy of hip region documented in this encounter Care Teams Aerial Lineman Relationship Specialty Start Date End Date Jennifer Sr MD [address] [place] [address] PCP - General 12/03/18 08/29/22 documented as of this encounter
--- OUTSIDE RECORDS SUMMARY | 2023-11-09 16:49 | XMS_ITS | Encounter Summary ---
[place] [address] Care Team Providers Care Grocery Packer Name Role Phone JAY Ann, Cassidy Primary Care Provider [phone] Reason for Visit * Reason Comments Advice Only bbr consult * Consultation (Routine) - Closed Specialty Diagnoses / Procedures Referred By Mayda t Referred To Contact Plastic Surgery Diagnoses Macromastia, breast reduction Cassidy Ware PA [address] [place] [id number] [facility] [address] [place] [id number] Referral ID Status Reason Start Date Expiration Date V isits Requested Visits Authorized [id number] Closed Consult, Test & Treat [facility] PCP Updated and/or Approved 10/13/2015 10/12/2016 1 1 Encounter Details Date Type Department Care Team (Late st Contact Info) Description 10/20/2015 9:30 AM EDT Office [place] [address] Nain Catherine MD [facility] DR PLASTIC SURGERY [place], [place] [id number] Macromastia Social History Tobacco Use Types Packs/Day Years Used Date Smoking Tobacco: Every Day Cigarettes Smokeless Tobacco: Never Tobacco Cessation:Ready to Q uit: Yes; Counseling Given: No Comments:smoking cessation info given Alcohol Use Standard Drinks/Week Comments No [...] - Inhaled Oxygen Concentration - - Weight 98.4 kg (217 lb) 10/20/2015 9:12 AM EDT Height 161.3 cm (5' 3.5) 10/20/2015 9:12 AM EDT Body Mass Index 37.84 10/20/2015 9:12 AM EDT documented in this encounter Patient Instructions * Patient Instructions* Angeli Pearson RN - 10/20/2015 10:01 AM EDT You were given written and verbal preoperative instructions today. To prepare for your upcoming surgery, please review the Pre-Operative Instruction brochure that youwere given at today's appointment. Feel free to call our office [phone] if you have any questions or concerns. We monitor the phones from 8-Sunday through Sunday. documented in this encounter Progress Notes * Nain Catherine MD - 10/20/2015 9:30 AM EDT Plastic Surgery Consultation Note NAIN CATHERINE MD PCP: JAY NGUYEN Requesting Physician: as above Reason for office visit: Symptomatic macromastia HPI: Aydee Johns is a 50 y.o. female who presents today for evaluation of symptomatic macromastia. Her PCP is JAY NGUYEN and has requested the consultation. She is unaccompanied for today???s visit. Ms. Johns reports longstanding back, neck, and shoulder pain related to the weight of her breasts.She has been considering a breast reduction for many years. She experiences chronic rashes underneath her breasts. She has difficulty exercising and performing physical activities due to her breast size and back pain. She has seen a chiropractor in the past, but no longer attends treatment. Her brastraps dig painfully into her shoulders. Weight loss has not offered relief; she does not lose weight in her breasts. She endorses numbness of her arms extending into her hands. She notes she is on disability, and ambulates with a cane due to neuropathy of both feet. She is a current smoker, 0.5ppd. She has completed a breast specific questionnaire: Pertinent findings to emphasize are: PLASTICS BREAST QUESTIONS 10/20/2015 Headaches? Some of the time Pain in your breast area? None of the time Lack of energy? Most of the time Difficulty doing vigorous physical activities (e.g. running or exercising)? All of the time Feeling physically unbalanced? All of the time Shoulder pain? All of the time Difficulty sleeping because of discomfort in your breast area? All of the time Neck pain? All of the time Painful gouges or grooves in your shoulders from your bra straps? All of the time Feeling physically uncomfortable? All of the time Rashes under your breasts? Some of the time Back pain? All of the time Arm pain? Some of the time Pain, numbness or tingling in your hands because of your breast size? Some of the time Satisfaction with Breasts 0 PsychoSocial Well-being 0 Sexual Well-being 0 Physical Well-being 33 Conservative Therapy Treatments: MYD-H PLASTICS CONSERVATIVE THERAPY TREATMENTS 10/20/2015 Physical therapy was effective at relieving my symptoms. Never Tried Use of custom support bras relieved my symptoms. Never Tired Treatment by a chiropractor relieved my symptoms. Never Tried Weight loss relieved my symptoms. No Relief How many months did you try this treatment? More than 6 months Non-narcotic medications (such as Tylenol, Aspirin, Ibuprofen, Aleve, etc) have relieved my symptoms. No Relief How many months did you try this treatment? More than 6 months Narcotic pain relievers (such as Tylenol #3, Percocet, etc) have relieved my symptoms. Never Tried Other Treatments have relieved my symptoms. No Relief Please specify which treatments have helped. none How many months did you try this treatment(s)? More than 6 months Over the counter or prescription medication has relieved the rashes under my breasts. Never Tried No past medical history on file. Past Surgical History Procedure Laterality Date ??? Appendectomy ??? Cholecystectomy ??? Colectomy Family History Problem Relation Age of Onset ??? Cancer Mother ??? Breast Cancer Mother ??? Cancer Brother ??? Cancer Cousin ROS: HEENT, GI, /Renal, Psych, Card, Pulm, Endo, Heme, Immun, Neuro: negative Examination: BMI: Ht 161.3 cm (5' 3.5) Wt 98.4 kg (217 lb) BMI 37.84 kg/m2 BSA: Body surface area is 2.1 meters squared. General: On my examination today, the patient appears to be in good health. Her emotional outlook is positive and she asked appropriate questions throughout the visit. Musculoskeletal: Her back is straight without evidence of kyphosis. Gross full ROM x 4 extrem, ambulating, no lesions Resp: No stridor, no wheezes, regular rate Abd: Rotund, soft non-distended/non-tender. Extrem: wwp, no cyanosis/clubbing/or edema. Breasts: Bra size: DD Significant macromastia Breast Measurements Right Left Ptosis pseudo pseudo SN-N (cm) 33 31 NAC elevation 8 8.5 Base diameter 20 20 Shoulder grooves significant significant Impression: Symptomatic bilateral breast hypertrophy. Bilateral breast reduction is indicated for relief of her breast-related symptoms. This is a medically necessary procedure to correct her physical symptomatolgy. She watched the [employer] video on breast reduction, and was provided with an [facility] brochure and informed consent on breast reduction. It reviews the surgical risks, alternate skin incisions and pedicle versus free nipple graft techniques. It also discusses the option of volume reductionby liposuction alone, which does not alter the nipple- areolar complex position. It talks about the impact of this surgery on decreasing breast cancer risk. We reviewed the timing of surgery relative to weight fluctuations and I've advised that surgery is best done at a realistic mcc stable weight. We talked about the outpatient nature of the surgery, drains, postoperative recovery, and time required off work. (1-2 weeks). We discussed the importance of smoking cessation and I advised her that she will need to be smoke free at least 2 months prior and for 1 month following surgery. In addition, he/she should stop all nicotine replacement therapy ( gum, patches and electronic cigarettes) for 1 month prior and for 2 weeks following surgery. She expressed an understanding and is motivated to quit smoking prior to surgery. The following risks were reviewed in the video or in our discussion: Surgical Risks which are greater with open reduction: bleeding with risk of hematoma (<5%); numbness, which may be temporary or permanent; scarring, including abnormal scarring; infection (5-10%);fat necrosis resulting in a breast mass and possible need for revision. I stressed the likelihood of minor problems with delayed wound healing (~30%) and the rare complication of nippleareolar necrosis. She is also aware that there may be some residual pain after the surgery and that there may possibly be some asymmetry. Vertical or Lollipop Incision: Less scarring on breast, but slightly greater risk for delayed healing and desire for scar revision. (She was informed that her insurer might not cover secondary revisions for scarring or asymmetry.) Restrepo or Livingston Pattern Incision: More scarring on breast, but lower risk for scar revision. (She was informed that her insurer might not cover secondary revisions for scarring or asymmetry.) Pedicle Technique: volume of reduction may be limited by need to provide an adequate blood supply to the nipple. There is a very small risk of nipple loss. Most women (~60%) will be able to breast-feed. Free Nipple Graft: The grafts will initially have no sensation and once fully healed may not respond to temperature and touch as they do now. She has also been informed that they may not look entirely normal and may have patchy hypopigmentation. She will not be able to breast feed with this technique. After fully discussing the options, she has opted to pursue a: Bilateral Breast Reduction Vertical, Pedicle X Bilateral Breast Reduction Restrepo, Pedicle Bilateral Breast Reduction Restrepo, FNG Anticipated resection: 1000 grams right breast 1000 grams left breast BSA [employer]/[place] Medicaid All other / Schnur 2.10 1000 750 She would like to proceed with surgery and I will inform her PCP of this plan. Photos taken today with informed signed consent Surgery Booking Information: Surgeon: Florin Duration: 2.5 hours Timeframe: Elective Procedure: Bilateral breast reduction CPT: 06660 Surgical Technique: Restrepo Surgical site: Breasts Side: Bilateral Anesthesia: General Follow up: 1-3 days for drain removal; 7-10 days for HCK PAT: Needs urine cotinine test in 2 weeks Nicolette Redd, am acting as scribe for Dr. Catherine. All work documented was performed by Dr. Catherine. ???I performed the above scribed service and agree with the accuracy of the note?? NAIN CATHERINE MD * Angeli Pearson RN - 10/20/2015 9:30 AM EDT Pre-Op Teaching for Surgery Surgery: bbr Written and verbal pre-operative instructions were given and reviewed with patient: Patient was advised to discontinue use of NSAIDS and aspirin products (unless otherwise advised by patient's PCP/Smoke And Flame Specialist for cardiac symptoms), fish oil, Vitamin E and herbal supplements for 14 days prior to surgery, to perform the pre-op scrub, and to coordinate a ride home following surgery. Smoking status and medications were further reviewed to rule out/address current use of Nicotine, Coumadin, Plavix, Estrogen or Tamoxifen. Photos were taken Patient was instructed to call the clinic at with any questions or concerns prior tosurgery. documented in this encounter Plan of Treatment Upcoming Encounters Date Type Department Care Team (Late st Contact Info) Description 12/25/2023 2:00 PM EDT Office [place] [address] Justin Sevilla MD [facility] [place] [address] 01/23/2024 2:00 PM EDT Office Visit [facility] [place] [address] Kenneth Martin MD [facility] [place] [address] documented as of this encounter Visit Diagnoses Diagnosis Macromastia Hypertrophy of breast documented in this encounter Care Teams Grocery Packer Relationship Specialty Start Date End Date Cassidy Ware PA PCP - General Family Medicine 10/12/15 03/05/16 documented as of this encounter
--- OUTSIDE RECORDS SUMMARY | 2023-11-09 16:49 | XMS_ITS | Encounter Summary ---
Author Organization [facility] Address [address] [place] [address] Care Team Providers Care Extrusion Press Operator Name Role Phone Jennifer Sr MD Primary Care Provider [phone] Jacey Amador Primary Care Provider [phone] Encounter Details Date Type Department Care Team ([facility] st Contact Info) Description 04/23/2019 Results Only Imaging [facility] Radiology Results [address] [place] [address] Harris Price MD [address] [place] [address] Social History Tobacco Use Types Packs/Day Years [...] Procedure Name Priority Date/Time Associated Diagnosis Comments CT ABDOMEN PELVIS W CONTRAST 04/23/2019 19:09 EST documented in this encounter Results * CT ABDOMEN PELVIS W CONTRAST (04/23/2019 19:09 EST) Anatomical Region Laterality Modality Other 04/23/2019 19:0 9 EST Narrative 04/23/2019 19:09 EST ? EXAM: CAT SCAN/ABDOMEN PELVIS WITH CONTRA EX. D/ (1855) ? CLINICAL INFORMATION: ? bilat flank pain x 6 months: L>R ? PROCEDURE INFORMATION: ? Exam: CT Abdomen And Pelvis With Contrast ? Exam date and time: 04/23/2019 17:39 ? Age: 54 years old ? Clinical indication: Other: Unknown; Prior surgery; Surgery ? type: Cholecystectomy, appendectomy, colon resection; Additional ? info: Bilat flank pain x 6 months: L>r ? TECHNIQUE: ? Imaging protocol: Computed tomography of the abdomen and pelvis ? with intravenous contrast. ? Radiation optimization: All CT scans at this facility use at ? least one of these dose optimization techniques: automated ? exposure control; mA and/or kV adjustment per patient size ? (includes targeted exams where dose is matched to clinical ? indication); or iterative reconstruction. ? Contrast material: OMNI 350; Contrast volume: 100 ml; Contrast ? route: RT ANTECUBITAL; ? COMPARISON: ? No relevant prior studies available. ? FINDINGS: ? Liver: Subcapsular 13 mm left hepatic hypervascular lesion. The ? underlying liver appears mildly fatty. ? Gallbladder and bile ducts: Cholecystectomy. No significant ? biliary dilation or radiopaque stones in the biliary tree. ? Pancreas: No ductal dilation. No masses. ? Spleen: No splenomegaly or focal lesions. ? Adrenals: No mass. ? Kidneys and ureters: No renal masses or hydronephrosis ? bilaterally. No significant stones are seen in the kidneys on ? postcontrast imaging. ? Stomach and bowel: Postsurgical changes in the distal sigmoid ? colon appearing satisfactory. No focal pathology in the ? remainder of the colon. No focal pathology in the small bowel. ? Appendix: Appendectomy. ? Intraperitoneal space: No free air. No significant fluid ? collection. ? Vasculature: No abdominal aortic aneurysm. ? Lymph nodes: No significantly enlarged lymph nodes. ? Bladder: Unremarkable as visualized. ? Reproductive: Unremarkable as visualized. ? Bones/joints: Grade one anterolisthesis of L5 over S1 in the ? setting of pars defects. Degenerative changes in the spine. No ? acute fracture or subluxation. ? Soft tissues: No suspicious lesions. ? IMPRESSION: ? 1. No acute findings. No renal pathology. ? 2. Subcapsular 13 mm left hepatic hypervascular lesion. ?? Almost ? PAGE 1 ? Signed Report ? (CONTINUED) ? certainly a benign flash filling hemangioma. Consider workup if ? there is a history of primary malignancy or chronic ? hepatocellular disease. ? 3. Postsurgical changes in the distal sigmoid colon appearing ? satisfactory. ? 4. Incidental findings include cholecystectomy, mildly fatty ? liver, appendectomy. ? REPORT SIGNED IN OTHER VENDOR SYSTEM 04/23/2019 ?Reported By: Chaya Plummer MD ? CC: Moreno Arrieta MD ? Transcribed Date/Time: 04/23/2019 (1908) ? Diamond Sizer: ? Printed Date/Time: 04/23/2019 (1908) ? PAGE 2 ? Signed Report ? Procedure Note Chaya Plummer MD - 04/23/2019 EXAM: CAT SCAN/ABDOMEN PELVIS WITH CONTRA EX. D/ (185) CLINICAL INFORMATION: bilat flank pain x 6 months: L>R PROCEDURE INFORMATION: Exam: CT Abdomen And Pelvis With Contrast Exam date and time: 04/23/2019 17:39 Age: 54 years old Clinical indication: Other: Unknown; Prior surgery; Surgery type: Cholecystectomy, appendectomy, colon resection; Additional info: Bilat flank pain x 6 months: L>r TECHNIQUE: Imaging protocol: Computed tomography of the abdomen and pelvis with intravenous contrast. Radiation optimization: All CT scans at this facility use at least one of these dose optimization techniques: automated exposure control; mA and/or kV adjustment per patient size (includes targeted exams where dose is matched to clinical indication); or iterative reconstruction. Contrast material: OMNI 350; Contrast volume: 100 ml; Contrast route: RT ANTECUBITAL; COMPARISON: No relevant prior studies available. FINDINGS: Liver: Subcapsular 13 mm left hepatic hypervascular lesion. The underlying liver appears mildly fatty. Gallbladder and bile ducts: Cholecystectomy. No significant biliary dilation or radiopaque stones in the biliary tree. Pancreas: No ductal dilation. No masses. Spleen: No splenomegaly or focal lesions. Adrenals: No mass. Kidneys and ureters: No renal masses or hydronephrosis bilaterally. No significant stones are seen in the kidneys on postcontrast imaging. Stomach and bowel: Postsurgical changes in the distal sigmoid colon appearing satisfactory. No focal pathology in the remainder of the colon. No focal pathology in the small bowel. Appendix: Appendectomy. Intraperitoneal space: No free air. No significant fluid collection. Vasculature: No abdominal aortic aneurysm. Lymph nodes: No significantly enlarged lymph nodes. Bladder: Unremarkable as visualized. Reproductive: Unremarkable as visualized. Bones/joints: Grade one anterolisthesis of L5 over S1 in the setting of pars defects. Degenerative changes in the spine. No acute fracture or subluxation. Soft tissues: No suspicious lesions. IMPRESSION: 1. No acute findings. No renal pathology. 2. Subcapsular 13 mm left hepatic hypervascular lesion. Almost PAGE 1 Signed Report (CONTINUED) certainly a benign flash filling hemangioma. Consider workup if there is a history of primary malignancy or chronic hepatocellular disease. 3. Postsurgical changes in the distal sigmoid colon appearing satisfactory. 4. Incidental findings include cholecystectomy, mildly fatty liver, appendectomy. REPORT SIGNED IN OTHER VENDOR SYSTEM 04/23/2019 Reported By: Chaya Plummer MD CC: Moreno Arrieta MD Transcribed Date/Time: 04/23/2019 (1908) Diamond Sizer: Printed Date/Time: 04/23/2019 (1908) PAGE 2 Signed Report Harris Price MD IMG CT ORDERABLES documented in this encounter Visit Diagnoses Not on filedocumented in this encounter Care Teams Extrusion Press Operator Relationship Specialty Start Date End Date Jennifer Sr MD [address] [place] [address] [place], [address] [address] PCP - General 12/03/18 08/29/22 Jacey Amador FNP [address] [place], [place] [address]MEHNAZ TAMEZ [address] [phone] PCP - General Family Medicine - Primary Care 08/30/22 documented as of this encounter
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
--- OUTSIDE RECORDS SUMMARY | 2023-11-09 16:49 | XMS_ITS | Clinical Summary ---
Author Organization [facility] Address [address] [place] [address] Care Team Providers Care Auditor/Quality Name Role Phone Jacey Amador Primary Care Provider [phone] Allergies Active Allergy Reactions Criticality Noted Date Comments Aspirin 10/23/2016 Codeine 04/12/2012 Duloxetine 10/23/2016 Phenytoin Sodium Extended 10/23/2016 Metoprolol 10/23/2016 Penicillins 04/12/2012 Cholecalciferol (Vitamin D3) 017 Medications Medication Sig Dispensed Refills Start Date End Date Status VALACYCLOVIR HCL (VALTREX ORAL) Take 1 Tab by mouth as needed. Active gabapentin (NEURONTIN) 800 mg tablet Take 3,600 mg by mouth 2 times daily. Active cyanocobalamin, vitamin B-12, (VITAMIN B-12 ORAL) Take by mouth. Active calcium carbonate/vitamin D3 (VITAMIN D-3 ORAL) Take by mouth. Ac tive loratadine (CLARITIN) 10 mg tablet Take 10 mg by mouth daily. Active albuterol sulfate (VENTOLIN ORAL) Take by mouth. Activ e omega-3 fatty acids/fish oil (FISH OIL OMEGA 3-6-9 ORAL) Take by mouth. Active acetaminophen (TYLENOL) 500 mg tablet Take 500 mg by mouth as needed for Pain. Active omeprazole (PRILOSEC) 20 mg capsule Take 40 mg by mouth 2 times daily. 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 Obstructive sleep apnea syndrome 10/23/2016 Surgical History Surgery Date Site/Laterality Comments CHOLECYSTECTOMY 04/09/1997 - 04/08/1998 COLECTOMY 04/09/1999 - 04/08/2000 diverticulitis APPENDECTOMY 04/09/2008 - 04/08/2009 SPINE SURGERY Medical History Medical History Date Comments Chronic back pain Chronic neck pain Headache(784.0) Degenerative joint disease DDD (degenerative disc disease), thoracolumbar Hyperlipidemia Angina at rest ([facility]) SOB (shortness of breath) Diarrhea Environmental allergies Asthma Depression GERD (gastroesophageal reflux disease) Heart murmur Neuromuscular disease ([facility]) Substance abuse ([facility]) Sleep apnea Family History Medical History Relation Comments Arthritis-Osteo Maternal Grandmother Relation Status Comments Maternal Grandmother Social History Tobacco Use Types Packs/Day Years Used Date Smoking Tobacco: Every Day Cigarettes 1 40 Smokeless Tobacco: Never Tobacco Cessation:Ready to Q uit: Not Asked; Counseling Given: Not Answered Comments:since 11 yo Alcohol Use Standard Drinks/Week Comments No 0 (1 standard drink = 0.6 oz pur e alcohol) Interpersonal Safety Answer Date Record ed Physically Hurt Never 11/09/2019 Verbally Threaten Not on file 11/09/2019 Sex and Gender Information Value Date Recorded Sex Assigned at Not on file Gender Identity Female 05/16/2019 9:18 EST Sexual Orientation Not on file Obstetrics History Last Filed Vital Signs Vital Sign Reading Time Taken Comments Blood Pressure 133/73 06/16/2019 1235 EDT Pulse 80 06/16/2019 1235 EDT Temperature 36.7 ??C (98.1 ??F) 06/16/2019 1235 EDT Respiratory Rate 18 12/03/2018 1442 EDT Oxygen Saturation 96% 12/03/2018 1442 EDT Inhaled Oxygen Concentration - - Weight 102.3 kg (225 lb 9.6 oz) 03/10/2019 1328 EST Height 160.7 cm (5' 3.25) 12/17/2018 0749 EDT Body Mass Index 39.65 12/17/2018 0749 EDT Plan of Treatment Health Maintenance Due Date Last Done Comments Pneumococcal Immunization (1 of 2 - PCV) 1969 Lung Cancer Screening 05/19/2020 05/19/2019 COVID-19 Vaccine (1 - 2022-24 season) 2022 RSV Immunization ( o r 60+ Years) (1 - 1-dose 60+ series) 2023 Hepatitis C Screen Completed 02/28/2019 Procedures Procedure Name Priority Date/Time Associated Diagnosis Comments CT CHEST LOW DOSE LUNG SCREENING Routine 05/19/2019 14:44 EST Encounter for screening for lung cancer HEPATITIS C AB W/REFLEX - [facility] [place] [place] Routine 02/28/2019 7:24 EST from Last 3 Months or Most Recently Relevant to Health Maintenance Results * CT CHEST LOW DOSE LUNG SCREENING (05/19/2019 14:44 EST) Anatomical Region Laterality Modality Chest Other 05/19/2019 14:5 6 EST Impressions 05/19/2019 14:56 EST 1. LungRADS category 1 (Negative) ??Findings: ??No nodules or definitely benign nodules (calcified granulomas). 2. LungRADS category S: ??Negative. 3. Incidental findings as above. Recommendations: ?? Follow up low dose CT in 1 year is recommended. ??Suggest next low dose CT exam or follow up on or around May 19, 2020.. This report utilizes the CT Lung Screening Reporting and Data System (ACR LungRADS version 1.0) as below: Category 0: Incomplete (part or all of lung cannot be evaluated, or prior chest CT being located for comparison) Category 1: Negative (no nodules or definitely benign nodules) Category 2: Benign appearance or behavior (nodules with very low likelihood of becoming a clinically active cancer, risk of malignancy <1%) Category 3: Probably benign (probably benign finding - short term follow up suggested, risk of malignancy 1-2%) Category 4: Suspicious (additional diagnostic testing or tissue sampling recommended) Modifiers to Categories 1-4: Category C: Prior diagnosis of lung cancer returning to screening Category S: Potentially significant ancillary finding requiring urgent additional evaluation. Narrative 05/19/2019 14:[address] CHEST LOW DOSE LUNG SCREENING ??05/19/2019 2:44 PM Clinical History/Comments: FORMER SMOKER,QUIT JAN 2019. 1 PPD X 40 YEARDS= 40 PACK YEAR HX. NO SIGNS OR S'S OF LUNG CA OR URI. CESSATION GUIDANCE PROVIDED,SHARED DECISION Technique: A single breath-hold helical CT acquisition was performed through the chest on a multidetector-row scanner with a reconstructed slice thickness of 3 mm and retrospectively reconstructed 0.9 mm thick sections with 0.45 mm overlapping intervals. ??The scans were obtained from the lung apices through the bases without IV contrast. Dose was adjusted between 1.0 and 1.5 milliSieverts for low dose screening purposes. Scans were reviewed on a dedicated PACS workstation for analysis. Comparison: None Findings: Lung Screening Specific (LungRADS) Findings: *No nodules Potentially Significant Incidentals (LungRADS Category S): None Pulmonary Incidentals: Pulmonary Incidentals ?? Other incidentals:Mild coronary arterial atherosclerotic calcification. Status post cholecystectomy. ACR Reportable Incidentals: ??None Jennifer Sr MD IMG CT ORDERABLES * HEPATITIS C AB W/REFLEX - [facility] [place] [place] (02/28/2019 7:24 EST) HEPATITIS C AB W/REFLEX [facility] Negative 02/28/2019 9:16 EST [facility] Comment:Expected Values: Neg ative. 02/28/2019 7:24 EST 02/28/2019 7:24 EST Narrative [facility] - 02/28/2019 9:16 EST Does PT Have a Latex Allergy? NO Robby Abraham MD CHEMISTRY & BLOOD GA S ORDERABLES [facility] from Last 3 Months or Most Recently Relevant to Health Maintenance Care Teams Auditor/Quality Relationship Specialty Start Date End Date Jacey Amador FNP [address] [place] [address] PCP - General Family Medicine - Primary Care 08/30/22
--- OUTSIDE RECORDS SUMMARY | 2023-11-09 16:49 | XMS_ITS | Referral Summary ---
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 Yes 01/14/2018 Plan of Treatment Not on file Procedures Procedure Name Priority Date/Time Associated Diagnosis Comments CT CHEST LOW DOSE LUNG SCREENING Routine 05/19/2019 14:44 EST Encounter for screening for lung cancer [place] [facility] [facility] [place] 02/28/2019 7:24 EST from Last 3 [...] ORDERABLES * [place] [facility] [place] [facility] [place]02/28/2019 7:24 EST) [place] [facility] [place] [facility] [place] 02/28/2019 9:16 EST [facility] Comment:Expected Values: Neg ative. 02/28/2019 7:24 EST 02/28/2019 7:24 EST Narrative [facility] - 02/28/2019 9:16 EST Does PT Have a Latex Allergy? NO Robby Abraham MD CHEMISTRY & BLOOD GA S ORDERABLES [facility] from Last 3 Months or Most Recently Relevant to Health Maintenance Care Teams Stock Clerk Self [employer] Store Relationship Specialty Start Date End Date Jacey Amador FNP [address] [facility] [address] [place] [id number] PCP - General Family Medicine - Primary Care 08/30/22
--- OUTSIDE RECORDS SUMMARY | 2023-11-09 16:49 | XMS_ITS | Encounter Summary ---
Author Organization [facility] Address [address] [place] [address] Care Team Providers Care Regulation Supervisor Name Role Phone Jennifer Sr MD Primary Care Provider [phone] Reason for Referral * Consult (Routine) - Specialty Report Received Specialty Diagnoses / Procedures [facility] Referred To Contact Pain Medicine Diagnoses Chronic bilateral low back pain without sciatica Nick Gomez PA-C [address] [place] [address] [place] [address] [facility] [address] [facility] [place] [address] Referral ID Status Reason Start Date Expiration Date Visits Requested Visits Authorized [id number] Specialty Report Received Specialty Services Required 03/11/2019 1 1 Question Answer Has the patient had diagnostic studies? Yes Diagnotic Studies: MRI/CT, X-Ray Have other specialty consultations been completed for this pain compliant? Yes Interventional Pain Clinic? neurology and rheumatology We provide consultative services. We do not assume the role of prescribing physician for this therapy. Please help us understand your area of interest by selecting from the common topics below: Yes Should opioids be initiated on this patient? No Should opioids be continued on this patient? No Reason for Request: your opinion as to whether this pt would be best served with lumbar facet injections vs MBB and RFA Reason for Visit * Reason Comments Pain Encounter Details Date Type Department Care Team ([facility] st Contact Info) Description 03/11/2019 15:30 EST Office Visit [facility] - [address] [place] [address] Nick Gomez PA-C [address] [facility] [place] [address] Chronic bilateral low back pain without sciatica (Primary Dx) Social History Tobacco Use [...] as of this encounter Progress Notes * Nick Gomez PA - 03/11/2019 1530 EST Patient is well-known to our office and was last seen in 2016 with back and bilateral lower extremity symptoms. Since that time she is had persistent back pain primarily on the right with radiation to the right iliac crest area and into the trochanter. She recently followed up with a total joint service and saw Altagracia Lozano APRN who felt that she may be suffering from some trochanteric bursitis but the patient declined an injection. Her symptoms are constant exacerbated by standing bending and lifting she finds very little that provides relief. Objectively MRI of the LS-spine March 2017 reveals mild disc degeneration at L4-5 no root impingement there are signs of facet arthropathy at this level, she also has a broad-based central disc extrusion at L5-S1 without root compression with moderate facet arthropathy at this level particularlyon the left Her gait is mildly antalgic and guarded she has diffuse palpable tenderness decreased range of motion her strength is 5 out of 5 soft touch is diminished the medial aspect of her calves bilaterally straight leg raise negative reflexes at the patella 1+ Achilles 0 Back pain musculoskeletal with a component of facet arthropathy disc degeneration and deconditioning lower extremity symptoms result of peripheral neuropathy and or not concordant with her MRI. Plan anesthesia pain service consult to gain their opinion as to whether this patient would be bestserved with facet injections versus medial branch blocks and RFA Activity as tolerated without limitation from a spine perspective Pain management per primary doctor No scheduled follow-up at this point as I have little else to offer from a spine perspective Dr. Dimas was available for consultation was not consulted I spent greater than 25 minutes with 25 minutes of my time spent [id number] discussing symptoms objective complaints and treatment options documented in this encounter Plan of Treatment Scheduled Referrals Name Type Priority Associated Diagnoses Order Schedule AMB CONS/FOLLOW UP PAIN INTERVENTIONAL Outpatient Referral Routine Chronic bilateral low back pain without sciatica Ordered: 03/11/2019 documented as of this encounter Visit Diagnoses Diagnosis Chronic bilateral low back pain without sciatica- Primary documented in this encounter Care Teams Regulation Supervisor Relationship Specialty Start Date End Date Jennifer Sr MD [address] [place] [address] PCP - General 12/03/18 08/29/22 documented as of this encounter
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
--- OUTSIDE RECORDS SUMMARY | 2023-11-09 16:49 | XMS_ITS | Encounter Summary ---
Author Organization [facility] Address [address] [place] [address] Care Team Providers Care Electrical Mechanical Technician Name Role Phone Jennifer Sr MD Primary Care Provider [phone] Encounter Details Date Type Department Care Team (Latest Contact Info) Description 06/16/2019 Travel Social History Tobacco Use Types Packs/Day [...] on filedocumented in this encounter Care Teams Electrical Mechanical Technician Relationship Specialty Start Date End Date Jennifer Sr MD [address] [place] [address] PCP - General 12/03/18 08/29/22 documented as of this encounter
--- OUTSIDE RECORDS SUMMARY | 2023-11-09 16:49 | XMS_ITS | Encounter Summary ---
Author Organization [facility] Address [address] [place] [address] Care Team Providers Care Pastoral Ministries Professor Name Role Phone Jennifer Sr MD Primary Care Provider [phone]- [phone] Reason for Visit * Reason Onset Date Comments Appointment Related 05/02/2019 Encounter Details Date Type Department Care Team ([facility] st Contact Info) Description 05/02/2019 Telephone [facility] Interventional Pain [address] [facility] [place] [address] Ruth Gomez PA-C [address] [facility] [address] [place] [address] Appointment Related Social History Tobacco Use Types Packs/Day Years [...] Yes 01/14/2018 documented as of this encounter Miscellaneous Notes * Telephone Encounter - Sheela Armando - 05/02/2019 1447 EST Spoke to patient to schedule consult Mailed packet documented in this encounter Plan of Treatment Not on file documented as of this encounter Visit Diagnoses Not on filedocumented in this encounter Care Teams Pastoral Ministries Professor Relationship Specialty Start Date End Date Jennifer Sr MD [address] [place] [address] PCP - General 12/03/18 08/29/22 documented as of this encounter
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
--- OUTSIDE RECORDS SUMMARY | 2023-11-09 16:49 | XMS_ITS | Encounter Summary ---
Author Organization [facility] Address [address] [place] [address] Care Team Providers Care Aba Tutor Name Role Phone Jennifer Sr MD Primary Care Provider +1- [phone] Reason for Visit * Reason Comments Hip Injury bilateral hip pain n o doi/dos Encounter Details Date Type Department Care Team ([facility] st Contact Info) Description 06/03/2019 15:30 EST Office Visit [facility] Total Joint Program - [address] [address] Altagracia Lozano NP [address] [place] [address] Trochanteric bursitis of both hips (Primary Dx) Social History Tobacco Use Types [...] this encounter Patient Instructions * Patient Instructions* Lauren Robert MA - 06/03/2019 15:30 EST Post Injection Care The information below is [...] (acetaminophen) or Advil (ibuprofen) as directed by pododermatologist if not contraindicated ??? No Swimming for [...] care physician Thank you for choosing the Orthopedics for your care. If you have any questions after receiving an injection, or if your pain does not subside, please call at [phone] and let us know. Our goal is to lessen your pain and improve your function. documented in this encounter Progress Notes * Lauren Robert MA - 06/03/2019 1530 EST Patient had the following injection in to the right hip Bupivacaine HCL inj. 0.5% (10mg/mL) 4CC 6CC WASTE Med lot number: [id number] NDC number:[id number] BUD: NOV 2021 Infant Nanny: [employer] Depo Medrol 40mg/mL 1CC 0CC WASTE Med lot number: [id number] [facility] number: [id number] BUD: 08/26 Infant Nanny: LISSY ROBERT MA 16:09 * Altagracia Lozano APRN - 06/03/2019 1530 EST Established hip pain follow-up note: SUBJECTIVE: Aydee Johns returns today for scheduled follow-up of her bilateral hip area pain. She was last seen in clinic on 02/19/2019 and was referred to physical therapy at that point. She reports attending1 session of physical therapy, which aggravated her sciatica and she did not return. She continues to experience significant lateral hip pain, right greater than left as well as buttock pain. Her pain is worse when lying on her side and she is unable to sleep on either side. She feels a pulling up the side of her leg/hip. It is constant. She ambulates with a cane. She is taking Tylenol as needed.Today she is requesting cortisone injections for temporary pain relief. She rates her pain as 4/10 in severity. Previous office notes and imaging studies reviewed. Medication reconciliation process completed. Patient Active Problem List Diagnosis ??? Smoker ??? Ibrahim's palsy ??? Obstructive sleep apnea syndrome PHYSICAL EXAM: General: Well-appearing female in no acute distress. Mood and affect appropriate. Vital Signs: There were no vitals taken for this visit. A and O x3. Eyes: Sclerae clear. Cardiovascular: Capillary refill normal. Respiratory: Regular, unlabored, without audible wheezing. Station and Gait: Arises from seated position with localized pain, normal station with level pelvisin standing position. Gait is antalgic on symptomatic side. Lumbar spine: Negative SLR bilaterally Lower extremity: Hip Skin and soft tissues about hip girdle appear healthy to inspection Significant tenderness about the bilateral greater trochanter. Right hip range of motion Flexion: 120 degrees, External rotation: 50 degrees, Internal rotation: 25 degrees, abduction: 45 degrees Left hip range of motion Flexion: 120 degrees, External rotation: 50 degrees, Internal rotation: 25 degrees, abduction: 45 degrees Bilateral hip range of motion does not reproduce pain Lower extremity: Knee Symmetric painfree ROM of the knees and ankles. tib-ant muscle strength 5/5, and gastroc-soleus muscle strength 5/5 Neurovascular: Light touch sensation intact Pulses: DP/PT pulses +2 bilaterally Skin: intact without pathologic trophic changes & no pitting edema. Lymphadenopathy: none noted REVIEW OF IMAGING: Most recent imaging was independently reviewed in the room today with the patient. Mild degenerative changes in bilateral hips. Degenerative changes also evident in the SI joints bilaterally and lower lumbar spine ASSESSMENT: 54 y.o. female with bilateral greater trochanteric bursitis resulting in pain, right greater than left PLAN: Non-operative treatment plan: -Continued low impact exercise with activity modification to limit symptoms -Tylenol as needed for pain, patient does not tolerate NSAIDs -AAOS home exercise program provided -Trochanteric bursal corticosteroid/bupivicaine injection discussed for potential short-term relief. Patient would like to proceed with injection. Given patient's concern for injections, will start with right hip. We will follow-up in 2 to 3 weeks to consider left hip injection at that point -Continued use of a cane, walking stick, or a walker, to enforce proper body mechanics, stability and support Trochanteric bursal injection: The indications and contraindication [...] a local anesthetic, under sterile conditions, the right trochanteric bursa was injected with 4mL of 0.5% bupivacaine, and 40mg of depo-medrol via 22 gauge spinal needle. There were no complications. The patient tolerated this well. Disposition: follow-up in [facility] in 2-3 weeks for left trochanteric bursal injection, sooner as needed Dr. Dimas was the attending physician available in the clinic today if needed. A consultation was not required. All or part of this document has been prepared with speech recognition software and/or keyboard parts data writer techniques. Minor irregularities may be present. Cc: Jennifer Sr Cc: Orin documented in this encounter Plan of Treatment Not on file documented as of this encounter Visit Diagnoses Diagnosis Trochanteric bursitis of both hips- Primary Enthesopathy of hip region documented in this encounter Historical Medications * This list may reflect changes made after this encounter. Medication Sig Dispensed Refills Start Date End Date acetaminophen (TYLENOL) 500 mg tablet Take 500 mg by mouth as needed for Pain. added in this encounter Care Teams Aba Tutor Relationship Specialty Start Date End Date Jennifer Sr MD [address] [place] [address] PCP - General 12/03/18 08/29/22 documented as of this encounter
--- OUTSIDE RECORDS SUMMARY | 2023-11-09 16:49 | XMS_ITS | Encounter Summary ---
Author Organization [facility] [place] [address] Care Team Providers Care Boathouse Keeper Name Role Phone Unavailable Primary Care Provider Unavailabl e Encounter Details Date Type Department Care Team (Late Contact Info) Description 02/13/2007 - 02/13/2007 11:59 PM EST Hospital Encounter [place] [phone] Dr Jeannette Temporary Pain Discharge Disposition: Home Social History Tobacco Use Types Packs/Day Years Used Date Smoking Tobacco: Never Assessed Sex and Gender Information Value Date Recorded Sex Assigned at Female 08/19/2020 4:17 PM EDT Gender Identity Female 07/03/2022 4:28 PM EDT Sexual Orientation Straight 08/19/2020 4: 17 PM EDT documented as of this encounter Medications at Time of Discharge Medication Sig Dispensed Refills Start Date End Date PRAVASTATIN SODIUM (PRAVACHOL ORAL) 07/2407/10/2014 ranitidine (ZANTAC) 300 mg tablet 006 07/10/2014 documented as of this encounter Plan of Treatment Upcoming Encounters Date Type Department Care Team (Late Contact Info) Description 12/25/2023 2:00 PM EDT Office [place] [phone] Justin Sevilla MD [facility] DR [place]LASTIC [place] [address] 01/23/2024 2:00 PM EDT Office Visit [place] [address] Kenneth Martin MD [facility] [place] [address] documented as of this encounter Procedures Procedure Name Priority Date/Time Associated Diagnosis Comments FILM LIBRARY STORAGE ONLY MR HEAD Routine 02/13/2007 12:00 AM EST Pain documented in this encounter Results * Film Library- Storage only MR Head (02/13/2007 12:00 AM EST) Narrative SUSANA CHOWDHURY - 08/17/2015 8:24 AM EDT This exam is for storage only and is auto-finalizing. Dr Reyes [facility] FILM LIBRARY ORD ERABLES [place] documented in this encounter Visit Diagnoses Diagnosis Pain Generalized pain documented in this encounter
--- OUTSIDE RECORDS SUMMARY | 2023-11-09 16:49 | XMS_ITS | Encounter Summary ---
Author Organization [place] [address] Care Team Providers Care Eyelet Cutter Name Role Phone JAY Ann, Cassidy Primary Care Provider [phone] [phone] Reason for Visit * Reason Onset Date Comments Other 09/07/2014 compounded scrip t Encounter Details Date Type Department Care Team ([facility] st Contact Info) Description 09/07/2014 [place] [phone] Song Allen MD [facility] [place] [address] Other (compounded script) Social History Tobacco Use Types Packs/Day Years [...] encounter Miscellaneous Notes * Telephone Encounter - Stephanie Strauss RN - 10/15/2014 3:03 PM EDT Faxed order to [facility]. * Telephone Encounter - Stephanie Strauss RN - 10/15/2014 9:58 AM EDT Call received from Justin, pharmacist at [facility], asking if we had the signed compounded form from Dr. Allen. Will check with Ramesh and Dr. Allen. * Telephone Encounter - Stephanie Strauss RN - 09/22/2014 8:42 AM EDT Forwarded script on to Dr. Allen to sign. Will fax back to [facility]. * Telephone Encounter - Stephanie Strauss RN - 09/10/2014 10:09 AM EDT Voicemail received from pt stating that her gabapentin dosage is incorrect in her AVS. She states that she takes 800 mg QID not 300 mg QID. Will forward on to Dr. Allen and update pt's medication list. * Telephone Encounter - Stephanie Strauss RN - 09/07/2014 12:45 PM EDT Faxed office note and compounding order form to [facility] at [phone]. documented in this encounter Plan of Treatment Upcoming Encounters Date Type Department Care Team (Late st Contact Info) Description 12/25/2023 2:00 PM EDT Office [place] [phone] Justin Sevilla MD [facility] [place] [address] 01/23/2024 2:00 PM EDT Office Visit [place] [phone] Kenneth Martin MD [facility] [place] [address] documented as of this encounter Visit Diagnoses Not on filedocumented in this encounter Care Teams Eyelet Cutter Relationship Specialty Start Date End Date Cassidy Ware PA PCP - General 09/04/14 08/26/15 documented as of this encounter
--- OUTSIDE RECORDS SUMMARY | 2023-11-09 16:49 | XMS_ITS | Encounter Summary ---
Author Organization [facility] [place] [address] Care Team Providers Care Polysomnographic Technologist Name Role Phone Melina Edge MD Primary Care Provider Encounter Details Date Type Department Care Team (Late st Contact Info) Description 09/17/2013 Orders [place] [address] Linwood Escoto DPM [facility] [place] [address] Social History Tobacco Use Types Packs/Day Years [...] PM EDT Office Visit Plastic Surgery at [place] [phone] Justin Sevilla MD [facility] [place] [address] 01/23/2024 2:00 PM EDT Office Visit [facility] at [place] [phone] Kenneth Martin MD [facility] [address] documented as of this encounter Procedures Procedure Name Priority Date/Time Associated Diagnosis Comments FILM LIBRARY STORAGE ONLY DX FOOT Routine 09/17/2013 9:10 AM EDT documented in this encounter Results * Film Library- Storage only DX Foot (09/17/2013 9:10 AM EDT) Anatomical Region Laterality Modality Other 09/17/2013 9:10 AM EDT Narrative 05/26/2014 9:15 AM EST This is a Non-reportable exam Procedure Note HOLLY, UNSIGNED REPORT - 05/26/2014 This is a Non-reportable exam Parkerdmitri Susie Escoto DPM IMG FILM LIBRARY ORD ERABLES documented in this encounter Visit Diagnoses Not on filedocumented in this encounter Care Teams Polysomnographic Technologist Relationship Specialty Start Date End Date Melina Edge MD [address] [place] [address] PCP - General 05/25/14 07/09/14 documented as of this encounter
--- OUTSIDE RECORDS SUMMARY | 2023-11-09 16:49 | XMS_ITS | Encounter Summary ---
Author Organization [facility] Address [address] [place] [address] Care Team Providers Care Attendant Lodging Facilities Name Role Phone Jennifer Sr MD Primary Care Provider [phone]- [phone] Reason for Visit * Reason Onset Date Comments Appointment Related 06/16/2019 Encounter Details Date Type Department Care Team ([facility] st Contact Info) Description 06/16/2019 Telephone [facility] Interventional Pain [address] [facility] [place] [address] Stefani Mcclellan MD [address] [facility] [address] [place] [address] Appointment Related Social History Tobacco [...] encounter Miscellaneous Notes * Telephone Encounter - Sita Gilliam - 06/23/2019 0855 EDT No Abn will be needed for these appointments. * Telephone Encounter - Juan David Botello - 06/16/2019 1514 EDT No prior auth for medicaid please check ABN for medicare * Telephone Encounter - Shanell Gilbert - 06/16/2019 1432 EDT Thoracic Back Trigger Point Injection and Occipital Nerve Block Please Obtain Prior Auth Patient is schedued for 08/15/2019 at 10:30am with Dr. Carrillo and 09/03/2019 at 8:45am with Dr. Mcclellan documented in this encounter Plan of Treatment Not on file documented as of this encounter Visit Diagnoses Not on filedocumented in this encounter Care Teams Attendant Lodging Facilities Relationship Specialty Start Date End Date Jennifer Sr MD [address] [place] [address] PCP - General 12/03/18 08/29/22 documented as of this encounter
--- OUTSIDE RECORDS SUMMARY | 2023-11-09 16:49 | XMS_ITS | Encounter Summary ---
Author Organization [facility] Address [address] [place] [address] Care Team Providers Care Bank Consultant Name Role Phone Jennifer Sr MD Primary Care Provider +1- [phone] Reason for Visit * Reason Onset Date Comments Other 07/01/2019 Encounter Details Date Type Department Care Team ([facility] Contact Info) Description 07/01/2019 Telephone [facility] Interventional Pain [address] [facility] [place] [address] Stefani Mcclellan MD [address] [facility] [address] [place] [address] Other Social History Tobacco Use Types Packs/Day Years [...] encounter Miscellaneous Notes * Telephone Encounter - Bruna Oglesby RN - 07/01/2019 1614 EDT Forwarded to JAY Sanford to advise. 07/02/2019@0908:RN completed a prior auth request and submitted to cover my meds. Pt made aware. FYI to JAY Sanford * Telephone Encounter - Shanell Gilbert - 07/01/2019 1218 EDT Went to fill a prescription (which is a patch) and they told her she needed to call the doctor and have them reach out to the insurance company because there was a problem with the insurance so it couldn't be filled. Nursing could you please help! Thank you! documented in this encounter Plan of Treatment Not on file documented as of this encounter Visit Diagnoses Not on filedocumented in this encounter Care Teams Bank Consultant Relationship Specialty Start Date End Date Jennifer Sr MD [address] [place] [address] [place] [address] PCP - General 12/03/18 08/29/22 documented as of this encounter
--- OUTSIDE RECORDS SUMMARY | 2023-11-09 16:49 | XMS_ITS | Encounter Summary ---
Author Organization [facility] Address [place] [id number] Care Team Providers Care Program Mgr Name Role Phone Sheila Cosby MD Primary Care Provider [phone] [phone] Reason for Visit * Consultation (Routine) - Closed Specialty Diagnoses / Procedures Referred By Mayda jalloh Referred To Contact Neurology Diagnoses Unspecified disturbances of skin sensation Other symptoms and signs involving cognitive functions and awareness Chronic pain syndrome Please have patient seen in MS clinic for ? MS ChazCassidy PA [address] [place] [address] Justin Mir MD [facility] [address] Referral ID Status Reason Start Date Expiration Date V isits Requested Visits Authorized [id number] Closed PCP Updated and/or Approved 08/23/2015 08/22/2016 1 1 Encounter Details Date Type Department Care Team ([facility] Contact Info) Description 08/27/2015 8:30 AM EDT [place] [address] Justin Mir MD [facility] [address] Neuritis Social History Tobacco Use Types Packs/Day Years [...] Sign Reading Time Taken Comments Blood Pressure 131/81 08/27/2015 8:09 AM EDT Pulse 81 08/27/2015 8:09 AM EDT Temperature - - Respiratory Rate - - Oxygen Saturation - - Inhaled Oxygen Concentration - - Weight 97.7 kg (215 lb 6.4 oz) 08/27/2015 8:09 A M EDT Height 162.6 cm (5' 4) 08/27/2015 8:09 AM EDT Body Mass Index 36.97 08/27/2015 8:09 AM EDT documented in this encounter Progress Notes * Justin Mir MD - 08/27/2015 8:33 AM EDT 5850-2720 64 minutes Cassidy Ware Dear , Thank you for asking the [facility] to see your patient, Aydee Johns. She is a 50 y.o.woman being seen here to r/o MS. Her symptom is primarily numbness that is everywhere. She came with a list of symptoms, because my memory stinks. She has not worked in two years, because I have nonstop pain and numbness. She has seen in [facility]. She first noted the symptom in 2011. She said that she has had numbness with migraines similar to her current sensations of numbness, but these were usually associated with headahes. In 2011 she had a very severe viral illness contracted in [place], where she lived for 5 months, resulting in severe weakness and lethargy. She was sick for at least 5 months with pneumonia. She said she was purple with white spots; she thought she might have been poisoned by her but shedoesn't think that is what happened. She was seen twice in the last year by Dr.Justin Allen in our department who thought she might have a small fiber neuropathy and she underwent a skin biopsy, the results of which were: Skin biopsies from the thigh and calf both show an epidermal nerve fiber densities that ??are within normal limits. On examination she was a pleasant woman appearing her stated age. A formal mental status examination was not performed, since the patient's conversational content during the history was not consistent with a cognitive disorder. Cranial nerve examination revealed normal fundoscopic, extraocular movements. Pupillary responses, visual werner, facial movement and sensation, hearing, tongue movement, palatal elevation, and neck strength were all normal. Muscle bulk, strength, and tone in the arms and legs were normal. Sensory examination was grossly normal. Deep tendon reflexes were 2+ and equal except for the AJs which were 0; toes were mute. The patient was unable to stand with her feet together, because she was unbalanced. Imaging/laboratory- states in his notes that imaging of the brain, C and T spine were normal. However, I could find only reports of imaging of the brain and T spine. Impression- The history, exam, and normal MRIs of the MANAGER STERILE PROCESSING are consistent with a mild post-infectious neuropathy. The likelihood that she has MS is extremely low. The patient complains of cognitive issues which are probably unrelated to the neuropathy, and are likely caused by the many sedating medications she is on. We discussed the possibility of tapering her off some of these but she is loathe to do that. Some of her difficulty with ambulation is related to her obesity, and she fulfills criteria for morbid obesity with a BMI of 37.1 and difficulty with ambulation at least partly related to the obesity. One thing which she can do to help her ability to get around is to lose weight responsibly. I could not find a report of an MRI of the cervical spine. Sometimes it is difficult to distinguishbetween a mild neuropathy and a mild myelopathy and the illness in [place] could have triggered a myelitis; if so, cervical spine MRI may reveal a parenchymal lesion, and you may wish to consider ordering this if it has not been performed since 2011. I don't think it needs to be repeated if is correct that it has already been done. MD Damaso Blanchard Professor of Neurology Department of Neurology [facility] [employer] and [address] [address] At least 40 minutes of this 64 minute face to face visit were spent in discussion of the topics outlined in the note above including diagnosis, therapy, and management issues. . * Porsha Bermeo LNA - 08/27/2015 8:10 AM EDT 25-Foot Walk Test with Cane Time #1: 9:3 Time #2: 8:7 9-Hole Peg Test Dominant Hand: Right Time #1: 26:1 Time #2: 25:8 Non-Dominant Hand: left Time #1: 26:6 Time #2: 28:1 documented in this encounter Plan of Treatment Upcoming Encounters Date Type Department Care Team (Late st Contact Info) Description 12/25/2023 2:00 PM EDT Office [place] [phone] Justin Sevilla MD [facility] [place] [address] 01/23/2024 2:00 PM EDT Office Visit [facility] [place] [address] Kenneth Martin MD [facility] [place] [address] documented as of this encounter Visit Diagnoses Diagnosis Neuritis Neuralgia, neuritis, and radiculitis, unspecified documented in this encounter Care Teams Program Mgr Relationship Specialty Start Date End Date Sheila Cosby MD PCP - General Family Medicine 08/27/15 10/11/15 documented as of this encounter
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
--- OUTSIDE RECORDS SUMMARY | 2023-11-09 16:49 | XMS_ITS | Encounter Summary ---
Author Organization [facility] Address [address] [place] [address] Care Team Providers Care Double Reamer Operator Name Role Phone Jennifer Sr MD Primary Care Provider [phone]- [phone] Encounter Details Date Type Department Care Team ([facility] st Contact Info) Description 04/23/2019 Results Only [facility] [phone] Harris Price MD [address] [place] [phone] Social History Tobacco Use Types Packs/Day [...] Procedure Name Priority Date/Time Associated Diagnosis Comments COMPLETE BLOOD COUNT WITH DIFFERENTIAL (AUTO) Routine 04/23/2019 16:50 EST COMPREHENSIVE METABOLIC PANEL (CMP) Routine 04/23/2019 16:50 EST documented in this encounter Results * (ABNORMAL) COMPREHENSIVE METABOLIC PANEL (CMP) (04/23/2019 16:50 EST) Albumin % 4.4 3.4 - 4.9 g/dL 04/23/2019 17:14 [facility] ALKALINE [place]OSPHATASE [place] [facility] 64 38 - 126 U/L 04/23/2019 17:14 [facility] BILIRUBIN TOTAL 0.5 0.2 - 1.3 mg/dL 04/23/2019 17:14 [facility] BUN [place] [facility] 8(L) 10 - 26 mg/dL 04/23/2019 17:14 [facility] CALCIUM - [facility] 9.7 8.5 - 10.5 mg/dL 04/23/2019 17:14 [facility] Chloride 102 96 - 110 mmol/L 04/23/2019 17:14 [facility] CO2 Total 32 22 - 32 mEq/L 04/23/2019 17:14 [facility] CREATININE 0.96 0.52 - 1.04 mg/dL 04/23/2019 17:14 [facility] eGFR >60 04/23/2019 17:14 [facility] Comment: Chronic renal impairment is defined as GFR <60 Multiply result by 1.210 for patients. eGFR calculated using the IDMS-traceable MDRD Study Equation. ??(effective 02/09/2014) Anion Gap 5 0 - 18 04/23/2019 17:14 [facility] GLUCOSE [place] [facility] 117(H) 70 - 100 mg/dL 04/23/2019 17:14 [facility] Potassium 4.4 3.5 - 5.0 mEq/L 04/23/2019 17:14 [facility] Sodium 139 136 - 145 mEq/L 04/23/2019 17:14 [facility] TOTAL PROTEIN [place] [facility] 7.4 6.2 - 8.2 gm/dL 04/23/2019 17:14 [facility] SGOT/AST [place] [facility] 23 14 - 36 U/L 04/23/2019 17:14 [facility] SGPT/ALT - [facility] 22 9 - 52 U/L 0 17:14 [facility] 04/23/2019 16:5 0 EST 04/23/2019 16:56 EST Harris Price MD CHEMISTRY & BLOOD GAS ORDERABLES [facility] * COMPLETE BLOOD COUNT WITH DIFFERENTIAL (AUTO) (04/23/2019 16:50 EST) Gran # 4.2 2.2 - 8.85 10e3/uL 04/23/2019 17:05 [facility] BASO # - [facility] 0.04 0.01 - 0.11 10e/uL 04/23/2019 17:05 [facility] BASO % - [facility] 1 0 - 2 % 04/23/2019 17:05 [facility] EOS # - [facility] 0.20 0.03 - 0.61 10e3/ul 04/23/2019 17:05 [facility] EOS % - [facility] 3 0 - 5 % 04/23/2019 17:05 [facility] GRAN % - [facility] 55.6 40 - 80 % 04/23/2019 17:05 [facility] HEMATOCRIT - [facility] 40.0 34.9 - 44.4 % 04/23/2019 17:05 [facility] HEMOGLOBIN - [facility] 13.6 11.6 - 15.2 g/dl 04/23/2019 17:05 [facility] IG# - [facility] 0.01 0 - 0.7 10e3/uL 04/23/2019 17:05 [facility] IG% - [facility] 0.1 0 - 0.9 % 04/23/2019 17:05 [facility] LYMPH # - [facility] 2.7 1.09 - 3.3 10e3/ul 04/23/2019 17:05 [facility] LYMPH% - [facility] 35.3 20 - 40 % 04/23/2019 17:05 [facility] MEAN CORPUSCULAR HGB - [facility] 32.2 26.7 - 33.3 pg 04/23/2019 17:05 [facility] MEAN CORPUSCULAR HGB CONC [place] [facility] 34.0 32.1 - 35.9 g/dL 04/23/2019 17:05 [facility] MEAN CELL VOLUME [place] [facility] 94.8 81 - 98 fl 04/23/2019 17:05 [facility] MONO # - [facility] 0.5 0.1 - 0.8 10e3/uL 04/23/2019 17:05 [facility] MONO% - [facility] 5.9 0 - 12 % 04/23/2019 17:05 [facility] PLATELET COUNT 321 141 - 377 10e3/ul 04/23/2019 17:05 [facility] RED BLOOD COUNT - [facility] 4.22 3.86 - 5.04 10e3/ul 04/23/2019 17:05 [facility] RED CELL DISTRI WIDTH - [facility] 12.3 <14.7 % 04/23/2019 17:05 [facility] WHITE BLOOD COUNT - [facility] 7.6 4.0 - 12.4 10e3/ul 04/23/2019 17:05 [facility] 04/23/2019 16:5 0 EST 04/23/2019 16:56 EST Harris Price MD HEMATOLOGY & PF4 ORDERABLES [facility] documented in this encounter Visit Diagnoses Not on filedocumented in this encounter Care Teams Double Reamer Operator Relationship Specialty Start Date End Date Jennifer Sr MD [address] [place] [address] PCP - General 12/03/18 08/29/22 documented as of this encounter
--- OUTSIDE RECORDS SUMMARY | 2023-11-09 16:49 | XMS_ITS | Encounter Summary ---
Author Organization [facility] Address [address] [place] [address] Care Team Providers Care Security Guards Dispatcher Name Role Phone Jennifer Sr MD Primary Care Provider +1- [phone] Reason for Visit * Reason Onset Date Comments Appointment Related 08/22/2019 Encounter Details Date Type Department Care Team ([facility] st Contact Info) Description 08/22/2019 Telephone [facility] Interventional Pain [address] [place], [place] [id number] Ann-Marie Macias MD [address] [place] [address] [place] [id number] Appointment Related Social History Tobacco Use Types [...] encounter Miscellaneous Notes * Telephone Encounter - Shanell Gilbert - 08/22/2019 2326 EDT Called patient to confirm their appointment with her and she has declined the appointment. She is seeing a chiropractor and will call us if she decided she needs this appointment for Occipital Nerve Blocks documented in this encounter Plan of Treatment Not on file documented as of this encounter Visit Diagnoses Not on filedocumented in this encounter Care Teams Security Guards Dispatcher Relationship Specialty Start Date End Date Jennifer Sr MD [address] [place] [address] PCP - General 12/03/18 08/29/22 documented as of this encounter
--- OUTSIDE RECORDS SUMMARY | 2023-11-09 16:49 | XMS_ITS | Encounter Summary ---
[place] [address] Care Team Providers Care Aluminum Boat Assembly Supervisor Name Role Phone JAY Ann, Cassidy Primary Care Provider +1 -[phone] Encounter Details Date Type Department Care Team (Late st Contact Info) Description 02/02/2015 External Results [place] [phone] Provider, Scanning Social History Tobacco Use Types [...] PM EDT Office [place] [address] Justin Sevilla MD [facility] [place] [address] 01/23/2024 2:00 PM EDT Office Visit [facility] [place] [address] Kenneth Martin MD [facility] [place] [address] documented as of this encounter Procedures Procedure Name Priority Date/Time Associated Diagnosis Comments SURGICAL PATHOLOGY SCAN Routine 02/02/2015 documented in this encounter Results * Scan Doc: Surgical Pathology (02/02/2015) Stuart Miner MD MEDIA MGR SCAN EXT O RDR/RSLT documented in this encounter Visit Diagnoses Not on filedocumented in this encounter Care Teams Aluminum Boat Assembly Supervisor Relationship Specialty Start Date End Date Cassidy Ware PA PCP - General 09/04/14 08/26/15 documented as of this encounter
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
--- OUTSIDE RECORDS SUMMARY | 2023-11-09 16:49 | XMS_ITS | Encounter Summary ---
Author Organization [facility] Address [address] [place] [address] Care Team Providers Care Pleat Taper Name Role Phone Jeninfer Sr MD Primary Care Provider [phone]- [phone] Reason for Visit * Reason Onset Date Comments Appointment Related 07/22/2019 Encounter Details Date Type Department Care Team ([facility] st Contact Info) Description 07/22/2019 Telephone [facility] Interventional Pain [address] [place], [place] [id number] Ann-Marie Macias MD [address] [place] [address] [place] [address] Appointment Related Social History Tobacco Use Types [...] * Telephone Encounter - Sita Gilliam - 07/22/2019 1521 EDT Patient was scheduled for Thoracic Back Trigger Point injection on 08/15/[address] Carrillo. Spoke with patient 07/22/2019, she was understanding and will be expecting our call when we resume scheduling. Patient???s appointment has been canceled, and a ???Recall?? put into Epic for rescheduling after 08/22/2019 due to the [place] Virus per [facility] Protocols. documented in this encounter Plan of Treatment Not on file documented as of this encounter Visit Diagnoses Not on filedocumented in this encounter Care Teams Pleat Taper Relationship Specialty Start Date End Date Jennifer Sr MD [address] [place] [address] PCP - General 12/03/18 08/29/22 documented as of this encounter
--- OUTSIDE RECORDS SUMMARY | 2023-11-09 16:49 | XMS_ITS | Encounter Summary ---
Author Organization [facility] Address [address] [place] [address] Care Team Providers Care Site Acquisition Manager Name Role Phone Jennifer Sr MD Primary Care Provider +1- [phone] Encounter Details Date Type Department Care Team (Late st Contact Info) Description 03/27/2019 Documentation Visit [facility] [place] [facility] Neurology - [address] [id number] Robby Abraham MD [address] [place] [address] [address] [place] [address] Social History Tobacco Use Types Packs/Day Years [...] as of this encounter Progress Notes * Robby Abraham MD - 03/27/2019 1158 EST B6 normal. C spine MRI: mild DJD at C5-6-7 mild mild posterior disc bulges causing no significant or problematic stenosis. documented in this encounter Plan of Treatment Not on file documented as of this encounter Visit Diagnoses Not on filedocumented in this encounter Care Teams Site Acquisition Manager Relationship Specialty Start Date End Date Jennifer Sr MD [address] [place] [address] PCP - General 12/03/18 08/29/22 documented as of this encounter
--- OUTSIDE RECORDS SUMMARY | 2023-11-09 16:49 | XMS_ITS | Encounter Summary ---
Author Organization [facility] Address [address] [place] [address] Care Team Providers Care Heel Washer Stringing Machine Operator Name Role Phone Jennifer Sr MD Primary Care Provider [phone]- [phone] Reason for Referral * Radiology Services (Routine) - Closed Specialty Diagnoses / Procedures Referred By Mayda jalloh Referred To Contact Diagnoses Encounter for screening for lung cancer Procedures CT CHEST LOW DOSE LUNG SCREENING Jennifer Sr MD [address] [address] Referral ID Status Reason Start Date Expiration Date Visits Re quested Visits Authorized [id number] Closed 05/19/2019 1 1 Reason for Visit * Radiology Services (Routine) - Closed Specialty Diagnoses / Procedures Referred By Mayda jalloh Referred To Contact Diagnoses Encounter for screening for lung cancer Procedures CT CHEST LOW DOSE LUNG SCREENING Jennifer Sr MD [address] [address] Referral ID Status Reason Start Date Expiration Date Visits Re quested Visits Authorized [id number] Closed 05/19/2019 1 1 Encounter Details Date Type Department Care Team (Latest Contact Info) Description 05/19/2019 14:43 EST - 05/19/2019 23:59 EST Hospital Encounter [facility] Radiology - Main [place] [address] [place] [address] Encounter for screening for lung cancer Discharge Disposition: Home or Self Care Social History Tobacco Use Types Packs/Day Years [...] Yes 01/14/2018 documented as of this encounter Medications at Time of Discharge Medication Sig Dispensed Refills Start Date End Date albuterol sulfate (VENTOLIN ORAL) Take by mouth. calcium carbonate/vitamin D3 (VITAMIN D-3 ORAL) Take by mouth. cyanocobalamin, vitamin B-12, (VITAMIN B-12 ORAL) Take by mouth. gabapentin (NEURONTIN) 800 mg tablet Take 3,600 mg by mouth 2 times daily. loratadine (CLARITIN) 10 mg tablet Take 10 mg by mouth daily. omega-3 fatty acids/fish oil (FISH OIL OMEGA 3-6-9 ORAL) Take by mouth. VALACYCLOVIR HCL (VALTREX ORAL) Take 1 Tab by mouth as needed. ranitidine (ZANTAC) 150 mg tablet Take 150 mg by mouth daily. 09/08/2022 riboflavin, vitamin B2, (VITAMIN B-2 ORAL) Take by mouth. 05/2022 UNABLE TO FIND Med Name: mineral 650 05/2022 UNABLE TO FIND Med Name: lipotrienols 05/2022 UNABLE TO FIND Med Name: rhizinate 2022 documented as of this encounter Discharge Disposition Disposition Code Departure Means Destination Home or Self Care documented in this encounter Plan of Treatment Not on file documented as of this encounter Procedures Procedure Name Priority Date/Time Associated Diagnosis Comments CT CHEST LOW DOSE LUNG SCREENING Routine 05/19/2019 14:44 EST Encounter for screening for lung cancer documented in this encounter Results * CT CHEST LOW DOSE LUNG [...] ??None Jennifer Sr MD IMG CT ORDERABLES documented in this encounter Visit Diagnoses Diagnosis Encounter for screening for lung cancer documented in this encounter Care Teams Heel Washer Stringing Machine Operator Relationship Specialty Start Date End Date Jennifer Sr MD [address] [place] [address] PCP - General 12/03/18 08/29/22 documented as of this encounter
--- OUTSIDE RECORDS SUMMARY | 2023-11-09 16:49 | XMS_ITS | Encounter Summary ---
[place] [address] Care Team Providers Care Director Airport Name Role Phone JAY Ann, Cassidy Primary Care Provider [phone] -[phone] Encounter Details Date Type Department Care Team (Late Contact Info) Description 09/04/2014 External [place] [phone] Song Allen MD [facility] [place] [address] Social History Tobacco Use Types Packs/Day Years [...] PM EDT Office [place] [address] Justin Sevilla MD [facility] [place] [address] 01/23/2024 2:00 PM EDT Office Visit [place] [address] Kenneth Martin MD [facility] [place] [address] documented as of this encounter Procedures Procedure Name Priority Date/Time Associated Diagnosis Comments EMG SCAN Routine 09/04/2014 EMG SCAN Routine 09/04/2014 documented in this encounter Results * Scan Doc: EMG (09/04/2014) Song Allen MD MEDIA MGR SCAN EXT O RDR/RSLT * Scan Doc: EMG (09/04/2014) Song Allen MD MEDIA MGR SCAN EXT O RDR/RSLT documented in this encounter Visit Diagnoses Not on filedocumented in this encounter Care Teams Director Airport Relationship Specialty Start Date End Date Cassidy Ware PA PCP - General 09/04/14 08/26/15 documented as of this encounter
--- OUTSIDE RECORDS SUMMARY | 2023-11-09 16:49 | XMS_ITS | Encounter Summary ---
Author Organization [facility] Address [address] [place] [address] Care Team Providers Care Manager Cancer Name Role Phone Jennifer Sr MD Primary Care Provider +1- [phone] Reason for Visit * Reason Onset Date Comments Appointment Related 05/15/2019 Encounter Details Date Type Department Care Team ([facility] st Contact Info) Description 05/15/2019 Telephone [facility] Interventional Pain [address] [place] [address] Ruth Gomez PA-C [address] [facility] [address] [place] [address] Appointment Related Social History Tobacco [...] * Telephone Encounter - Sheela Armando - 05/15/2019 1033 EST Rescheduled consult appointment with patient documented in this encounter Plan of Treatment Not on file documented as of this encounter Visit Diagnoses Not on filedocumented in this encounter Care Teams Manager Cancer Relationship Specialty Start Date End Date Jennifer Sr MD [address] [place] [address] PCP - General 12/03/18 08/29/22 documented as of this encounter
--- OUTSIDE RECORDS SUMMARY | 2023-11-09 16:49 | XMS_ITS | Encounter Summary ---
Author Organization [facility] [place] [address] Care Team Providers Care English Composition Teacher Name Role Phone Melina Edge MD Primary Care Provider [phone] Encounter Details Date Type Department Care Team (Late st Contact Info) Description 03/02/2014 Orders [place] [address] Linwood Escoto DPM [facility] [place] [address] Social History Tobacco Use Types Packs/Day Years [...] PM EDT Office Visit Plastic Surgery at [place] [phone] Justin Sevilla MD [facility] [place] [address] 01/23/2024 2:00 PM EDT Office Visit [facility] [place] [phone] Kenneth Martin MD [facility] [place] [address] documented as of this encounter Procedures Procedure Name Priority Date/Time Associated Diagnosis Comments FILM LIBRARY STORAGE ONLY DX FOOT Routine 03/02/2014 9:07 AM EST documented in this encounter Results * Film Library- Storage only DX Foot (03/02/2014 9:07 AM EST) Anatomical Region Laterality Modality Other 03/02/2014 9:07 AM EST Narrative 05/26/2014 9:13 AM EST This is a Non-reportable exam Procedure Note HOLLY, UNSIGNED REPORT - 05/26/2014 This is a Non-reportable exam Linwood Escoto DPM IMG FILM LIBRARY ORD ERABLES documented in this encounter Visit Diagnoses Not on filedocumented in this encounter Care Teams English Composition Teacher Relationship Specialty Start Date End Date Melina Edge MD [address] [place] [address] PCP - General 05/25/14 07/09/14 documented as of this encounter
--- OUTSIDE RECORDS SUMMARY | 2023-11-09 16:49 | XMS_ITS | Encounter Summary ---
Author Organization [facility] Address [address] [place] [address] Care Team Providers Care Implementation Project Manager Name Role Phone Jacey Amador Primary Care Provider [phone] Reason for Referral * PT/OT/ST (Routine/Next Available) - New Request Specialty Diagnoses / Procedures Referred By Mayda jalloh Referred To Contact Diagnoses Muscle tension dysphonia Chronic laryngitis Gastroesophageal reflux disease without esophagitis History of tobacco abuse Aki Rosario MD [address] [place] [address], [address] [place] [address] Referral ID Status Reason Start Date Expiration Date Visits Requested Visits Authorized [id number] New Request Specialty Services Required 09/08/2022 1 1 Question Answer Type of ELECTRICIAN ELEVATOR MAINTENANCE Eval: Voice Eval & Treat Reason for Request: Approximately 1 year of hoarseness with a strained, low-pitch, raspy voice. History of significant tobacco abuse, GERD. Laryngoscopy shows signs of muscle tension dysphonia with supraglottic hyperfunction. Please evaluate and consider for outpatient v Reason for Visit * Reason Comments New Patient Visit Hoarse * Referral (Routine) - Receiving Office to Obtain Authorization Specialty Diagnoses / Procedures Referred By Mayda jalloh Referred To Contact Otolaryngology Diagnoses Unspecified voice and resonance disorder Maria Esther Mckoy APRN [address] [place] [address] [place] [address] [place] [address] [place] [address] Referral ID Status Reason Start Date Expiration Date Visits Requested Visits Authorized [id number] Receiving Office to Obtain Authorization 1 1 Encounter Details Date Type Department Care Team (Late st Contact Info) Description 09/08/2022 15:00 EDT Office Visit [facility] ENT- [address] [address] Aki Rosario MD [address] [place] [address], [address] [place] [address] Muscle tension dysphonia (Primary Dx); Chronic laryngitis; Gastroesophageal reflux disease without esophagitis; History of tobacco abuse Social History Tobacco Use Types Packs/Day Years [...] as of this encounter Progress Notes * Aki Rosario MD - 09/08/2022 1500 EDT Subjective: Patient ID: Aydee Johns is an 57 y.o. female. Chief Complaint Patient presents with ??? New Patient Visit ??? Hoarse HPI Patient Active Problem List Diagnosis ??? Smoker ??? Ibrahim's palsy ??? Obstructive sleep apnea syndrome Past Medical History: Diagnosis Date ??? Angina at rest (HCC) ??? Asthma ??? Chronic back pain ??? Chronic neck pain ??? DDD (degenerative disc disease), thoracolumbar ??? Degenerative joint disease ??? Depression ??? Diarrhea ??? Environmental allergies ??? GERD (gastroesophageal reflux disease) ??? Headache(784.0) ??? Heart murmur ??? Hyperlipidemia ??? Neuromuscular disease ([facility]) ??? Sleep apnea ??? SOB (shortness of breath) ??? Substance abuse (HCC-CMS) (HCC) Past Surgical History: Procedure Laterality Date ??? APPENDECTOMY 2008 ??? CHOLECYSTECTOMY 1997 ??? COLECTOMY 2000 diverticulitis ??? SPINE SURGERY Family History Problem Relation Age of Onset ??? Arthritis-Osteo Maternal Grandmother Social Social History Socioeconomic History ??? Marital status: Spouse name: Not on file ??? Number of children: Not on file ??? Years of education: Not on file ??? Highest education level: Not on file Occupational History ??? Not on file Tobacco Use ??? Smoking status: Every Day Packs/day: 1.00 Years: 40.00 Pack years: 40.00 Types: Cigarettes ??? Smokeless tobacco: Never ??? Tobacco comments: since 11 yo Substance and Sexual Activity ??? Alcohol use: No ??? Drug use: No ??? Sexual activity: Not on file Other Topics Concern ??? Not on file Social History Narrative ??? Not on file Social Determinants of Health Financial Resource Strain: Not on file Food Insecurity: Not on file Transportation Needs: Not on file Physical Activity: Not on file Stress: Not on file Social Connections: Not on file Housing Stability: Not on file Outpatient Medications Marked as Taking for the 09/08/22 encounter (Office Visit) with Aki Rosario MD Medication Sig Dispense Refill ??? acetaminophen (TYLENOL) 500 mg tablet Take 500 mg by mouth as needed for Pain. ??? albuterol sulfate (VENTOLIN ORAL) Take by mouth. ??? calcium carbonate/vitamin D3 (VITAMIN D-3 ORAL) Take by mouth. ??? cyanocobalamin, vitamin B-12, (VITAMIN B-12 ORAL) Take by mouth. ??? gabapentin (NEURONTIN) 800 mg tablet Take 3,600 mg by mouth 2 times daily. ??? loratadine (CLARITIN) 10 mg tablet Take 10 mg by mouth daily. ??? omega-3 fatty acids/fish oil (FISH OIL OMEGA 3-6-9 ORAL) Take by mouth. ??? omeprazole (PRILOSEC) 20 mg capsule Take 40 mg by mouth 2 times daily. ??? VALACYCLOVIR HCL (VALTREX ORAL) Take 1 Tab by mouth as needed. Allergies Allergen Reactions ??? Aspirin ??? Codeine ??? Cymbalta [Duloxetine] ??? Dilantin [Phenytoin Sodium Extended] ??? Metoprolol ??? Pcn [Penicillins] ??? Vitamin D [Cholecalciferol (Vitamin D3)] ROS - See HPI Objective: There were no vitals taken for this visit. Physical Exam Assessment: Plan: There are no diagnoses linked to this encounter. * Aki Rosario MD - 09/08/2022 1500 EDT Subjective: Patient ID: Aydee Johns is an 57 y.o. female. Chief Complaint Patient presents with ??? New Patient Visit ??? Hoarse Maria Esther Mckoy has requested that I see Aydee Johns in consultation regarding voice problems. HPI Aydee Johns is seen today for hoarseness. This dates back approximately 1 year. She attributes the onset of her hoarseness to a chemical exposure from a new type of chlorine in the pool where she used to swim. She also smoked 2 packs a day for 45 years. In terms of her voice, she describes a low pitch, raspy voice. This tends to get worse with increased use. There is some associated throat discomfort with prolonged speaking but no hemoptysis or otalgia. She denies difficulty swallowing but will occasionally cough or choke with eating or drinking. This is infrequent and she has had no weightloss or aspiration pneumonias. She takes omeprazole 40 mg a day for GERD which controls her heartburn relatively well. She did quit smoking several months ago. She has an albuterol and Flovent inhaler although she infrequently uses both. She does not rinse her mouth after use of the steroid inhalerbut has not struggled with recurring bouts of thrush. She quit smoking several months ago. She has poor water intake. She has 1 or 2 coffees or tea per day. No alcohol. Modest voice demands. Patient Active Problem List Diagnosis ??? Smoker ??? Ibrahim's palsy ??? Obstructive sleep apnea syndrome Past Medical History: Diagnosis Date ??? Angina at rest (HCC) ??? Asthma ??? Chronic back pain ??? Chronic neck pain ??? DDD (degenerative disc disease), thoracolumbar ??? Degenerative joint disease ??? Depression ??? Diarrhea ??? Environmental allergies ??? GERD (gastroesophageal reflux disease) ??? Headache(784.0) ??? Heart murmur ??? Hyperlipidemia ??? Neuromuscular disease (HCC-CMS) ??? Sleep apnea ??? SOB (shortness of breath) ??? Substance abuse (HCC-CMS) (FORMERLY [facility]) Past Surgical History: Procedure Laterality Date ??? APPENDECTOMY 2008 ??? CHOLECYSTECTOMY 1997 ??? COLECTOMY 2000 diverticulitis ??? SPINE SURGERY Family History Problem Relation Age of Onset ??? Arthritis-Osteo Maternal Grandmother Social Social History Socioeconomic History ??? Marital status: Spouse name: Not on file ??? Number of children: Not on file ??? Years of education: Not on file ??? Highest education level: Not on file Occupational History ??? Not on file Tobacco Use ??? Smoking status: Every Day Packs/day: 1.00 Years: 40.00 Pack years: 40.00 Types: Cigarettes ??? Smokeless tobacco: Never ??? Tobacco comments: since 11 yo Substance and Sexual Activity ??? Alcohol use: No ??? Drug use: No ??? Sexual activity: Not on file Other Topics Concern ??? Not on file Social History Narrative ??? Not on file Social Determinants of Health Financial Resource Strain: Not on file Food Insecurity: Not on file Transportation Needs: Not on file Physical Activity: Not on file Stress: Not on file Social Connections: Not on file Housing Stability: Not on file Outpatient Medications Marked as Taking for the 09/08/22 encounter (Office Visit) with Aki Rosario MD Medication Sig Dispense Refill ??? acetaminophen (TYLENOL) 500 mg tablet Take 500 mg by mouth as needed for Pain. ??? albuterol sulfate (VENTOLIN ORAL) Take by mouth. ??? calcium carbonate/vitamin D3 (VITAMIN D-3 ORAL) Take by mouth. ??? cyanocobalamin, vitamin B-12, (VITAMIN B-12 ORAL) Take by mouth. ??? gabapentin (NEURONTIN) 800 mg tablet Take 3,600 mg by mouth 2 times daily. ??? loratadine (CLARITIN) 10 mg tablet Take 10 mg by mouth daily. ??? omega-3 fatty acids/fish oil (FISH OIL OMEGA 3-6-9 ORAL) Take by mouth. ??? omeprazole (PRILOSEC) 20 mg capsule Take 40 mg by mouth 2 times daily. ??? VALACYCLOVIR HCL (VALTREX ORAL) Take 1 Tab by mouth as needed. Allergies Allergen Reactions ??? Aspirin ??? Codeine ??? Cymbalta [Duloxetine] ??? Dilantin [Phenytoin Sodium Extended] ??? Metoprolol ??? Pcn [Penicillins] ??? Vitamin D [Cholecalciferol (Vitamin D3)] Review of Systems Constitutional: Negative for chills, fever, malaise/fatigue and weight loss. HENT: Negative for congestion, ear pain, hearing loss and sore throat. Eyes: Negative for blurred vision, double vision and photophobia. Respiratory: Positive for wheezing. Negative for cough, hemoptysis and shortness of breath. Cardiovascular: Positive for leg swelling. Negative for chest pain, palpitations and claudication. Gastrointestinal: Negative for heartburn. Musculoskeletal: Negative for joint pain and myalgias. Skin: Negative for rash. Neurological: Negative for sensory change, focal weakness and headaches. Endo/Heme/Allergies: Negative for environmental allergies. Does not bruise/bleed easily. - See HPI Objective: There were no vitals taken for this visit. Physical Exam Department of Otolaryngology PHYSICAL EXAMINATION CONSTITUTIONAL: VITAL SIGNS: Not reviewed APPEARANCE: The patient appears alert, cooperative, and comfortable. ABILITY TO COMMUNICATE / VOICE: Voice is rough and raspy with a low pitch quality. No wheeze or stridor at rest HEAD AND FACE: INSPECTION: Normal without apparent scars, lesions, or masses. PALPATION: There are no masses or sinus tenderness. SALIVARY GLANDS: Submandibular and Parotid glands are normal bilaterally FACIAL STRENGTH: Intact and symmetrical bilaterally EXTERNAL EAR & NOSE: No external ear or nose deformity noted EYES: EYES: no nystagmus EARS, NOSE, MOUTH AND THROAT: OTOSCOPY: Right external auditory canal: patent and non-inflamed Left external auditory canal: patent and non-inflamed Right tympanic membrane: intact and normally mobile without retraction, perforation or effusion Left tympanic membrane: intact and normally mobile without retraction, perforation or effusion WHISPER/TUNING FORK: Not assessed NOSE: normal turbinates and mucosa: septum in midline LIPS, TEETH & GUMS: normal for age ORAL CAVITY & OROPHARYNX: normal HYPOPHARYNX & PHARYNGEAL HEMPHILL: See flexible exam report LARYNX: See flexible exam report NASOPHARYNX: See flexible exam report NECK: GENERAL: Supple, no asymmetry or crepitus, trachea midline THYROID: Normal LYMPHATIC: CERVICAL LYMPH NODES: No pathologic cervical lymphadenopathy noted RESPIRATORY: LUNGS: Not examined CARDIOVASCULAR: CARDIOVASCULAR: Not examined NEUROLOGIC: NEUROLOGIC: Normal mood and affect Endoscopy Procedure Note Pre-procedure Diagnosis: Hoarseness / Dysphonia Post-procedure Diagnosis: same Indications: Hoarseness, dysphagia or aspiration - not able to be clearly evaluated by indirect laryngoscopy Anesthesia: Cophenylcaine Endoscopy Type: Laryngoscopy using a flexible laryngoscope Procedure Details: With the patient sitting upright in the examining chair informed consent was obtained. The right nostril was topically anesthetized with cotton pledgets. After waiting an appropriate period of time for anesthesia/ vasoconstriction to become effective (if this was applicable), the scope was passed into the right nostril and the nasopharynx, oropharynx, hypopharynx and larynx were examined. Condition: Patient tolerated procedure well and left the office in a stable condition. Complications: None Findings: Nasopharynx: Normal exam of choanae, eustachian tubes, and adenoids for age Oropharynx: Normal exam of tongue base, tonsils, and posterior pharynx Hypopharynx: Normal piriform sinuses noted, no pooling of secretions Supraglottis: Moderate to severe supraglottic hyperfunction with phonation consistent with muscle tension dysphonia Posterior Commissure: Erythematous Right True Vocal Fold: Mild edema, erythema without discrete lesion, ulceration or evidence of hemorrhage Left True Vocal Fold: Mild edema, erythema without discrete lesion, ulceration or evidence of hemorrhage Vocal Fold Mobility: Normal bilaterally No joey aspiration noted. Thickened laryngeal secretions. Subglottis clear Assessment: Encounter Diagnoses Name Primary? Muscle tension dysphonia Yes ??? Chronic laryngitis ??? Gastroesophageal reflux disease without esophagitis ??? History of tobacco abuse Plan: Chronic, multifactorial hoarseness secondary to longstanding heavy tobacco abuse, suboptimal vocal hygiene and GERD. There is also a significant component of muscle tension dysphonia (MTD) which may have been brought on in part by exposure to strong chlorine fumes at her local swimming pool approximately 1 year ago. I recommend she continue the omeprazole 40 mg a day. We also reviewed diet lifestyle modifications directed at minimizing acid reflux into the throat. Vocal hygiene was reviewed including improved water intake/hydration. We also reviewed proper vocal mechanics and breath support. She was encouraged to rinse or gargle her whole mouth after use of her Flovent steroid inhaler. A referral for voice therapy was placed for her muscle tension dysphonia. This will be an external referral as she lives in [place] with the closest hospital being [facility]. She wasreassured regarding the absence of concerning lesions in the larynx or pharynx on for today's flexible laryngoscopy exam and congratulated on her recent smoking cessation. I will see her back in 6 months for follow-up, sooner with new concerns or problems. documented in this encounter Plan of Treatment Scheduled Referrals Name Type Priority Associated Diagnoses Order Schedule AMB CONS/FOLLOW UP SPEECH & LANGUAGE PATHOLOGY - EXTERNAL Outpatient Referral Routine/Next Available Muscle tension dysphonia Chronic laryngitis Gastroesophageal reflux disease without esophagitis History of tobacco abuse Expected: 09/15/2022 (Approximate), Expires: 09/09/2023 documented as of this encounter Visit Diagnoses Diagnosis Muscle tension dysphonia- Primary Dysphonia Chronic laryngitis Gastroesophageal reflux disease without esophagitis Esophageal reflux History of tobacco abuse Personal history of tobacco use, presenting hazards to health documented in this encounter Discontinued Medications Medication Sig Discontinue Reason Start Date End Da te ranitidine (ZANTAC) 150 mg tablet Take 150 mg by mouth daily. 09/08/2022 riboflavin, vitamin B2, (VITAMIN B-2 ORAL) Take by mouth. 09/08/2022 UNABLE TO FIND Med Name: mineral 650 09/08/2022 UNABLE TO FIND Med Name: lipotrienols 06/02/202 3 UNABLE TO FIND Med Name: juliet 09/08/2022 documented as of this encounter Historical Medications * This list may reflect changes made after this encounter. Medication Sig Dispensed Refills Start Date End Date omeprazole (PRILOSEC) 20 mg capsule Take 40 mg by mouth 2 times daily. added in this encounter Care Teams Implementation Project Manager Relationship Specialty Start Date End Date Jacey Amador FNP [address] [place] [id number] PCP - General Family Medicine - Primary Care 08/30/22 documented as of this encounter
--- OUTSIDE RECORDS SUMMARY | 2023-11-09 16:49 | XMS_ITS | Encounter Summary ---
[place] [address] Care Team Providers Care Student Financial Aid Manager Name Role Phone Melina Edge MD Primary Care Provider Reason for Visit * Reason Onset Date Comments Referral 05/25/2014 Encounter Details Date Type Department Care Team ([facility] st Contact Info) Description 05/25/2014 [place] [address] Linda Cameron Referral Social History Tobacco Use Types Packs/Day Years Used Date Smoking Tobacco: Never Assessed Sex and Gender Information Value Date Recorded Sex Assigned at Female 08/19/2020 4:17 PM EDT Gender Identity Female 07/03/2022 4:28 PM EDT Sexual Orientation Straight 08/19/2020 4: 17 PM EDT documented as of this encounter Miscellaneous Notes * Telephone Encounter - Felecia Leon - 06/02/2014 11:57 AM EST Scheduled. * Telephone Encounter - Wanda Allen - 06/02/2014 8:11 AM EST Left message for patient to schedule referral * Telephone Encounter - Wanda Phillips - 05/26/2014 8:53 AM EST Received 1 page from [facility] XR Report, BILATERAL FEET 03/02/2014 * Telephone Encounter - Linda Cameron - 05/25/2014 11:17 AM EST Ask the patient to verify the following: Full Name: Aydee Johns : 1965 Phone number: [phone] (home) Mailing address: [address] [address] Age: 49 y.o. Appointment date: TBD Appointment is with: MICHAEL Reason #1 Injury/Complaint: BILAT FOOT PAIN Date of injury/complaint: 06/09/2013 Is this a new injury? No Is this a 2nd opinion? No Appointment type: 18-100 Adult - Not sports related Is this Workers Comp? No How long have you had these symptoms? 1 years Records Retrieval Most recent physical exam: Yes - When? Where? Who? Notes: 2013 [facility] X-rays: Yes - When? Where? Notes: 02/2014 [place], [place] PH: [phone] FAX: [phone] IMG PUSH MRI: No CT Scan: No Physical therapy: No Injection: Yes - When? Where? Who? Notes: 12/2013 [place], [place] [phone] DR JACQUELYN BARRETT Other diagnostic studies: No Other therapies: No Other specialist(s): Yes - What? When? Where? Who? Notes: [facility] 12/2013 [place], [place] [phone] DR JACQUELYN BARRETT If 2nd (+) opinion get info on previous: No Have you had any surgeries for this issue? No Did surgery include placement of implant/hardware or fixation of any kind? No documented in this encounter Plan of Treatment Upcoming Encounters Date Type Department Care Team (Late st Contact Info) Description 12/25/2023 2:00 PM EDT Office [place] [address] Justin Sevilla MD [facility] [place] [address] 01/23/2024 2:00 PM EDT Office Visit [facility] [place] [address] Kenneth Martin MD [facility] [place] [address] documented as of this encounter Visit Diagnoses Not on filedocumented in this encounter Care Teams Student Financial Aid Manager Relationship Specialty Start Date End Date Melina Edge MD [address] [place] [id number] PCP - General 05/25/14 07/09/14 documented as of this encounter
--- OUTSIDE RECORDS SUMMARY | 2023-11-09 16:49 | XMS_ITS | Encounter Summary ---
Author Organization [facility] Address [address] [place] [address] Care Team Providers Care Bedspread Inspector Name Role Phone Jennifer Sr MD Primary Care Provider [phone] Jacey Amador Primary Care Provider [phone] Encounter Details Date Type Department Care Team ([facility] st Contact Info) Description 12/22/2021 Lab Requisition [facility] Pathology & [place] [address] Outr Resulting Lab, Provider Social History Tobacco [...] Procedure Name Priority Date/Time Associated Diagnosis Comments PTH INTACT Routine 12/22/2021 12:25 EDT INSULIN Routine 12/22/2021 12:25 EDT documented in this encounter Results * PTH INTACT (12/22/2021 12:25 EDT) Intact PTH 56 19 - 88 pg/mL 12/23/2021 9:41 EDT [facility] Blood VENOUS BLOOD / Unknown 12/22/2021 12:25 EDT 12/22/2021 21:08 EDT Provider Outr Resulting Lab CHEMISTRY & BLOOD GAS ORDERABLES Performing Organization Address [facility] Co de Phone Number [facility] [address] [place] [address] * INSULIN (12/22/2021 12:25 EDT) Insulin 15.1 <29.0 uIU/mL 12/26/2021 9:41 EDT [facility] Comment: Displayed Reference Range applies to fasting specimens only. Blood VENOUS BLOOD / Unknown 12/22/2021 12:25 EDT 12/22/2021 21:08 EDT Provider Outr Resulting Lab CHEMISTRY & BLOOD GAS ORDERABLES Performing Organization Address City/[facility] Co de Phone Number [facility] [address] [place] [address] documented in this encounter Visit Diagnoses Not on filedocumented in this encounter Care Teams Bedspread Inspector Relationship Specialty Start Date End Date Jennifer Sr MD [address] [place] [address] PCP - General 12/03/18 08/29/22 Jacey Amador FNP [facility] [address]SA TAMEZ [address] [phone] PCP - General Family Medicine - Primary Care 08/30/22 documented as of this encounter
--- OUTSIDE RECORDS SUMMARY | 2023-11-09 16:49 | XMS_ITS | Encounter Summary ---
Author Organization [facility] Address [address] [place] [address] Care Team Providers Care Cutlery Grinder Name Role Phone Jennifer Sr MD Primary Care Provider [phone] Jacey Amador Primary Care Provider [phone] Encounter Details Date Type Department Care Team ([facility] st Contact Info) Description 07/25/2019 Lab Requisition [facility] Pathology & Laboratory Medicine - [address] [address] [place] [address] Encounter for other general examination Social History Tobacco Use Types Packs/Day Years [...] as of this encounter Visit Diagnoses Diagnosis Encounter for other general examination documented in this encounter Care Teams Cutlery Grinder Relationship Specialty Start Date End Date Jennifer Sr MD [address] [place] [id number] PCP - General 12/03/18 08/29/22 Jacey Amador FNP [facility] TAME[facility] [address] [place] [phone] PCP - General Family Medicine - Primary Care 08/30/22 documented as of this encounter
--- OUTSIDE RECORDS SUMMARY | 2023-11-09 16:49 | XMS_ITS | Encounter Summary ---
Author Organization [facility] [place] [address] Care Team Providers Care Palm And Back Forger Name Role Phone JAY Ann, Cassidy Primary Care Provider [phone] Encounter Details Date Type Department Care Team (Latest Contact Info) Description 2015 10:00 AM EDT Procedure [place] [address] Stuart Miner MD [facility] [place] [address] Small fiber neuropathy Social History Tobacco Use Types Packs/Day [...] Sign Reading Time Taken Comments Blood Pressure 136/94 2015 9:39 AM EDT Pulse 88 2015 9:39 AM EDT Temperature - - Respiratory Rate - - Oxygen Saturation - - Inhaled Oxygen Concentration - - Weight 95.7 kg (211 lb) 2015 9:39 AM EDT Height 162.6 cm (5' 4) 2015 9:39 AM EDT p er patient Body Mass Index 36.22 2015 9:39 AM EDT documented in this encounter Progress Notes * Stuart Miner MD - 2015 10:26 AM EDT Aydee Somers Nat here for for bilevel skin biopsy at the request of Dr. Allen for question of small fiber neuropathy. Patient identified. Consent form signed. Timeout conducted.to verify correct procedure and correct patient and all relevant clinical information. Skin was prepped with betadine at hip and ankle in right leg. 2 cc of 1% lidocaine with epi was injected at both sites. With a 3mm skin punch, two specimens were acquired without complication. Hemostasis was obtained with pressure. Samples put in preservative and taken to lab.for processing. Patient tolerated the procedure with no obvious complication. We reviewed the risks of infection, bleeding and pain prior to the procedure. documented in this encounter Plan of Treatment Upcoming Encounters Date Type Department Care Team (Late st Contact Info) Description 12/25/2023 2:00 PM EDT Office Visit Plastic Surgery at [place] [phone] Justin Sevilla MD [facility] [place] [address] 01/23/2024 2:00 PM EDT Office Visit [facility] [place] [address] Kenneth Martin MD [facility] [place] [address] documented as of this encounter Procedures Procedure Name Priority Date/Time Associated Diagnosis Comments SURGICAL PATHOLOGY REPORT Routine 2015 11:24 AM EDT [facility] Routine 2015 10:29 AM EDT [facility] Routine 2015 10:29 AM EDT documented in this encounter Results * Surgical Pathology Report (2015 11:24 AM EDT) FINAL DIAGNOSIS (AP) The signing pathologist has (i) examined the relevant preparation(s) for the specimen(s) and (ii) rendered or confirmed the diagnosis(es). Accession Number: [id number] ?Location: 3C . ? Addendum ADDENDUM DISCUSSION SPECIAL TEST PERFORMED: Test: ??Sweat Gland Nerve Fiber Density Test [facility] Case: ??[id number] Performing Lab: ??[facility] Performing Lab Case: ??[id number] Reported by Aime Gordon MD Date reported: ??02/01/15 Calf skin shows a normal sweat gland nerve fiber density. ??There were no sweat glands in the thigh skin sample. ??For the full text of the [facility] reports please refer to Non-DH Documentation Pathology in the electronic health record (eDH). 02/02/15 [facility] 02/02/15 Verified by: ? Cecily ANTHONY, Aime Valencia ?Pathologist ?(Electronic Signature) The attending pathologist whose signature appears on this report has reviewed all diagnostic slides and has edited the gross and/or microscopic portion of the report in rendering the final pathologic diagnosis. ? Addendum ADDENDUM DISCUSSION SPECIAL TEST PERFORMED: Test: ??Epidermal Nerve Fiber Density Test [facility] Case: ??[id number] Performing Lab: ??[facility] Performing Lab Case: ??[id number] Reported by Pelon Bauman MD Date reported: ??01/27/2015 Skin biopsies from the thigh and calf both show an epidermal nerve fiber densities that are within normal limits. ??For the full text of the [facility] reports please refer to Non-DH Documentation Pathology in the electronic health record (eDH). 01/28/15 [facility] 01/28/15 Verified by: ? Aime Tony MD ?Pathologist ?(Electronic Signature) The attending pathologist whose signature appears on this report has reviewed all diagnostic slides and has edited the gross and/or microscopic portion of the report in rendering the final pathologic diagnosis. . ?Surgical Pathology DIAGNOSIS Received are 2 skin punch biopsies which are submitted to [facility] for epidermal nerve fiber density testing. ??See separate report from [facility]. 01/19/15 [facility] 01/22/15 Verified by: ? Aime Tony MD ?Pathologist ?(Electronic Signature) The attending pathologist whose signature appears on this report has reviewed all diagnostic slides and has edited the gross and/or microscopic portion of the report in rendering the final pathologic diagnosis. DISCUSSION No histological studies are performed at [facility] ADDITIONAL STUDIES none CLINICAL INFORMATION Specimen Submitted: A - Right thigh, skin punch B - Right distal leg, skin punch Clinical History: Neuropathy both feet FROZEN SECTION none SPECIMEN PROCESSING Received are 2 skin punch biopsies which are submitted to [facility] for epidermal nerve fiber density testing. [employer] [address] [place] [address] ??[id number] 02/02/2015 11:43 AM EDT [facility] SPECIMEN FROM SKIN / Unknown 2015 11:24 AM EDT 2015 11:24 AM EDT Stuart Miner MD PATHOLOGY/CYTOLOGY O RDERABLES Performing Organization Address City/State/[facility] Phone Number [facility] [place] [address] * [facility] Sendout (2015 10:29 AM EDT) [facility] Sendout See Note CERNER MILLENNIUM Comment: The ordered test is: Sweat Gland Nerve Fiber Density Test performed by: [facility]; [address] [place] [address] The test result is: Please see scanned report in Chart Review under the Non- Laboratory Heading. Specimen of unknown material (specimen) Other / Unknown 2015 10:29 AM EDT 02/02/2015 10:10 AM EDT Stuart Miner MD CHEMISTRY ORDERABLES Performing Organization Address [facility] de Phone Number [facility] * [facility] Sendout (2015 10:29 AM EDT) Pathologist [facility] Sendout See Note CERNER ENNIUM Comment: The ordered test is: Epidermal Nerve Fiber Density Test performed by: [facility]; [address] [place] [id number] The test result is: Please see scanned report in Chart Review under the Non- Laboratory Heading. Specimen of unknown material (specimen) Other / Unknown 2015 10:29 AM EDT 2015 11:44 AM EDT Stuart Miner MD CHEMISTRY ORDERABLES Performing Organization Address City/[facility] Co de Phone Number [facility] documented in this encounter Visit Diagnoses Diagnosis Small fiber neuropathy Unspecified hereditary and idiopathic peripheral neuropathy documented in this encounter Care Teams Palm And Back Forger Relationship Specialty Start Date End Date Cassidy Ware PA PCP - General 09/04/14 08/26/15 documented as of this encounter
--- OUTSIDE RECORDS SUMMARY | 2023-11-09 16:49 | XMS_ITS | Encounter Summary ---
Author Organization [facility] [place] [address] Care Team Providers Care Keyboard Operator Name Role Phone Zoraida Ordoñez MD Primary Care Provider [phone] Encounter Details Date Type Department Care Team (Late st Contact Info) Description 11/27/2013 - 11/27/2013 11:59 PM EDT Hospital Encounter [place] [phone] Dr Jeannette Temporary Pain Discharge Disposition: Home [...] PM EDT Office [place] [phone] Justin Sevilla MD [facility] [place] [address] 01/23/2024 2:00 PM EDT Office Visit [place] [address] Kenneth Martin MD [facility] [place] [address] documented as of this encounter Procedures Procedure Name Priority Date/Time Associated Diagnosis Comments FILM LIBRARY STORAGE ONLY MR HEAD Routine 11/27/2013 12:00 AM EDT Pain documented in this encounter Results * Film Library- Storage only MR Head (11/27/2013 12:00 AM EDT) Narrative [facility] - 08/17/2015 8:24 AM EDT This exam is for storage only and is auto-finalizing. Dr Reyes [facility] FILM LIBRARY ORD ERABLES [place], [place] documented in this encounter Visit Diagnoses Diagnosis Pain Generalized pain documented in this encounter Care Teams Keyboard Operator Relationship Specialty Start Date End Date Zoraida Ordoñez MD [address] [place] [address] PCP - General 04/26/11 05/24/14 documented as of this encounter
--- OUTSIDE RECORDS SUMMARY | 2023-11-09 16:49 | XMS_ITS | Encounter Summary ---
Author Organization [facility] Address [address] [place] [address] Care Team Providers Care Truck Repair Supervisor Name Role Phone Jennifer Sr MD Primary Care Provider [phone] Jacey Amador Primary Care Provider [phone] Encounter Details Date Type Department Care Team (Latest Contact Info) Description 09/29/[address] [facility] Pathology & Laboratory Medicine - [address] [address] Glenys Hernandez FNP [address] [place], [place] [address] Encounter for general adult medical examination without abnormal findings; Encounter for screening for malignant neoplasm of cervix; Encounter for screening for human papillomavirus (HPV) Social History Tobacco Use Types Packs/Day Years [...] Procedure Name Priority Date/Time Associated Diagnosis Comments PAP TEST Today 09/27/2021 9:50 EDT Encounter for general adult medical examination without abnormal findings Encounter for screening for malignant neoplasm of cervix Encounter for screening for human papillomavirus (HPV) HPV DNA DETECTION WITH GENOTYPING, PCR Today 09/27/2021 9:50 EDT Encounter for general adult medical examination without abnormal findings Encounter for screening for malignant neoplasm of cervix Encounter for screening for human papillomavirus (HPV) documented in this encounter Results * HUMAN PAPILLOMAVIRUS (HPV) DETECTION-HIGH RISK TYPES (09/27/2021 9:50 EDT) HPV other High Risk types, PCR Negative Negative 10/05/2021 19:21 EDT [facility] Comment:No E6 or E7 mRNA is detected from HPV types 16,18,31,33,35,39,45,51,52,56,58,59,66, and 68 by senior compliance analyst mediated amplification. Papanicolaou smear specimen (specimen) CERVIX UTERI STRUCTURE / Unknown 09/27/2021 9:50 EDT 10/03/2021 14:58 EDT Glenys Hernandez GOLF PROFESSIONAL MICROBIOLOGY - GENER AL ORDERABLES [facility] [address] [place] [address] * PAP TEST (09/27/2021 9:50 EDT) Specimens A. Cervix and/or Endocervix , ThinPrep Imaging System with Manual Evaluation 10/05/2021 19:22 EDT [facility] Specimen Adequacy Satisfactory for Evaluation - transformation zone component present 10/05/2021 19:22 EDT [facility] General Categorization Negative for intraepithelial lesion or malignancy 10/05/2021 19:22 EDT [facility] Attestation . 10/05/2021 19:22 EDT [facility] at [address] Clinical History SEE BELOW 10/06/19 19:22 EDT [facility] HPV The result for the Human Papillomavirus (HPV) Detection-High Risk Types is Negative. No E6 or E7 mRNA is detected from HPV types 16,18,31,33,35,39 ,45,51,52,56,58,5 9,66, and 68 by senior compliance analyst mediated amplification.Tete ting was performed on specimen [id number] and was resulted on 10/05/2021 1915 EDT by HOLLY, LAB INSTRUMENT RESULTS IN 10/05/2021 19:22 EDT [facility] Performing Lab [facility] 10/05/2021 19:22 EDT [facility] Scanned Images 10/05/2021 19:22 EDT [facility] Papanicolaou smear specimen (specimen) CERVIX UTERI STRUCTURE / Unknown 09/27/2021 9:50 EDT 09/29/2021 12:56 EDT Glenys QUICK PATHOLOGY ORDERABLES [facility] [address] [place] [address] documented in this encounter Visit Diagnoses Diagnosis Encounter for general adult medical examination without abnormal findings Unspecified general medical examination Encounter for screening for malignant neoplasm of cervix Screening for malignant neoplasm of the cervix Encounter for screening for human papillomavirus (HPV) Special screening examination for human papillomavirus (HPV) documented in this encounter Care Teams Truck Repair Supervisor Relationship Specialty Start Date End Date Jennifer Sr MD [address] [address] [place] [address] PCP - General 12/03/18 08/29/22 Jacey Amador FNP [address] [phone] PCP - General Family Medicine - Primary Care 08/30/22 documented as of this encounter
--- OUTSIDE RECORDS SUMMARY | 2023-11-09 16:49 | XMS_ITS | Encounter Summary ---
Author Organization [facility] Address [address] [place] [address] Care Team Providers Care Culturist Name Role Phone Jennifer Sr MD Primary Care Provider [phone] Reason for Visit * Reason Onset Date Comments Labs Only 03/05/[address] [facility] Diagnostic Imaging Report 03/05/2019 [facility] Encounter Details Date Type Department Care Team ([facility] st Contact Info) Description 03/05/2019 Telephone [facility] Neurology - [place] [address] [place] [phone] Robby Abraham MD [address] [place] [address], [address] [place] [address] Labs Only (Lab results [facility]); Diagnostic Imaging Report ([facility]) Social History Tobacco Use Types Packs/Day Years [...] encounter Miscellaneous Notes * Telephone Encounter - Nain Falcon MA - 03/11/2019 1124 EST Lab results form [facility] also received MRI report form [facility] MR C-spine. They are in Dr. Abraham's Mailbox. documented in this encounter Plan of Treatment Not on file documented as of this encounter Visit Diagnoses Not on filedocumented in this encounter Care Teams Culturist Relationship Specialty Start Date End Date Jennifer Sr MD [address] [place] [address] PCP - General 12/03/18 08/29/22 documented as of this encounter
--- OUTSIDE RECORDS SUMMARY | 2023-11-09 16:49 | XMS_ITS | Encounter Summary ---
Author Organization [facility] Address [address] [place] [address] Care Team Providers Care Furnace Converter Name Role Phone Jennifer Sr MD Primary Care Provider [phone] Reason for Visit * Reason Comments Back Pain Leg Pain Facial Pain bilateral pain and n umbness. Facial drooping. Pt says affecting her sight Arm Pain left * Consult (Routine) - Specialty Report Received Specialty Diagnoses / Procedures [facility] Referred To Contact Pain Medicine Diagnoses Chronic bilateral low back pain without sciatica Dewayne Gomez PA-C [address] [facility] [place] [address] [facility] [address] [place] [address] Referral ID Status Reason Start Date Expiration Date Visits Requested Visits Authorized [id number] Specialty Report Received Specialty Services Required 03/11/2019 1 1 Encounter Details Date Type Department Care Team (Latest Contact Info) Description 06/16/2019 13:00 EDT Initial consult [facility] Interventional Pain [address] [place] [address] Ruth Gomez PA-C [address] [facility] [address] [place] [address] Bilateral occipital neuralgia (Primary Dx); Myofascial pain; Chronic midline thoracic back pain Social History Tobacco Use Types Packs/Day [...] (98.1 ??F) 06/16/2019 1235 EDT Respiratory Rate - - Oxygen Saturation - - Inhaled Oxygen Concentration - - Weight - - Height - - Body Mass Index - - documented in this encounter Functional Status Functional [...] Yes 01/14/2018 documented as of this encounter Ordered Prescriptions Prescription Sig Dispensed Refills Start Date End Da te lidocaine 5 % (LIDODERM) 5 % patch Place 1 Patch onto the skin every 24 hours for 90 days. Apply patch (es) for 12 hours on, 12 hours off 90 Patch 06/16/2019 09/14/2019 documented in this encounter Progress Notes * Aydee Edouard MA - 06/16/2019 1300 EDT Chart Prep Note Patient Name: Aydee Johns : 1965 Date of Service: 06/13/2019 Have you been seen at [facility] pain clinic before?: Yes If yes, last appointment date: 08/29/2017 What were they seen for at that time: CONSULT BILATERAL FOOT PAIN Referring Physician (for new pts or re-referral):DEWAYNE GOMEZ [[id number]] Most recent note from referring provider related to the referral problem (only the location of the note - may need to cite multiple note/dates): 06/03/2019 Altagracia Lozano Reason for referral (If the referral says ???PAIN?? - please find a more specific reason). TIRSO may need to call referring offices: M54.5, G89.29 (ICD-10-CM) - 724.2, 338.29 (ICD-9-CM) - Chronic bilateral low back pain without sciatica Prior injection history in the last 3 years: 1. [facility] - RIGHT TROCHANTERIC BURSA INJECTION 06/03/2019 Imaging (report and images) - May have to call imaging facility: [facility] For New Consults, is there any pending Imaging? If in question, ask provider? Previous surgeries on the problem area: 1. NO KNOWN SURGERIES * Ruth Gomez PA-C - 06/16/2019 1300 EDT [facility] OP PAIN CONSULT Patient Name: Aydee Johns : 1965 Date of Service: 06/16/2019 Chief Complaint Patient presents with ??? Back Pain ??? Leg Pain ??? Facial Pain bilateral pain and numbness. Facial drooping. Pt says affecting her sight ??? Arm Pain left Physician Requesting Consultation:Dewayne Gomez History of Present Illness/Pain complaint: Ms. Johns is a 54 y.o. female with a past medical history significant for sleep apnea, depression,idiopathic small fiber neuropathy, and seziures who presents at the request of Dewayne Gomez in consultation for evaluation and treatment recommendations of her chronic headaches and thoracic back pain. The patient's average pain scale report today on a VAS 1-10: Pain Score (from Vitals) 06/16/2019 Initial score - Final score 5 Location BACK Comment - How long pain has been present: Patient reports that her pain is been present since 2006. Her pain is progressively gotten worse over time. Location of Pain: She reports pain located in the mid thoracic back and between her scapula. This is the pain that is most bothersome to her. She also reports pain on the occipital area causing headaches that radiate up and over her head. Description of Pain: She describes the back pain as a constant aching and sharp sensation. She describes the head pain as a constant burning sensation. Activities that worsen pain: Walking, stairs, sitting, and standing Activities that improves pain: Nothing Functional limitations: This pain has had a negative impact on the patients quality of life as she has not been able to complete her daily activities. Please see Pain Medicine Center Initial Assessment Questionnaire in scan media for more details. Imaging: MRI thoracic spine 03/15/2017: Minimal T5-6 and T6-7 disc degeneration. No thoracic spinal canal or neural foraminal stenosis. Thoracic cord has normal signal intensity throughout. Prior injection history: 06/03/2018: right greater trochanteric bursa injection Therapeutic measures that have been trialed include: Therapy Comments Injections X- as above Physical therapy X- multiple times Land X Aqua Acupuncture TENS Chiropractic therapy Biofeedback Psychotherapy Other Medications that have been trialed include: Medications Effect/Side Effect Anticonvulsants Gabapentin X- current Lyrica Topiramate Antidepressants Amitriptyline Nortriptyline Effexor Cymbalta Muscle Relaxants Cyclobenzaprine Baclofen Robaxin NSAIDs/Tylenol X- PRN Ibuprofen Relafen Narcotic Methadone Oxycodone Hydromorphone Miscellaneous Allergies Allergen Reactions ??? Aspirin ??? Codeine ??? Cymbalta [Duloxetine] ??? Dilantin [Phenytoin Sodium Extended] ??? Metoprolol ??? Penicillins ??? Vitamin D [Cholecalciferol (Vitamin D3)] Outpatient Medications Marked as Taking for the 06/16/19 encounter (Initial consult) with Ruth Gomez PA-C Medication Sig Dispense Refill ??? albuterol sulfate (VENTOLIN ORAL) Take by mouth. ??? gabapentin (NEURONTIN) 800 mg tablet Take 1,600 mg by mouth 2 times daily. ??? loratadine (CLARITIN) 10 mg tablet Take 10 mg by mouth daily. ??? VALACYCLOVIR HCL (VALTREX ORAL) Take 1 Tab by mouth as needed. Medications for anticoagulation: none Past Medical History: Diagnosis Date ??? Angina at rest ([facility]) ??? Asthma ??? Chronic back pain ??? Chronic neck pain ??? DDD (degenerative disc disease), thoracolumbar ??? Degenerative joint disease ??? Depression ??? Diarrhea ??? Environmental allergies ??? GERD (gastroesophageal reflux disease) ??? Headache(784.0) ??? Heart murmur ??? Hyperlipidemia ??? Neuromuscular disease ([facility]) ??? Seizures (HCC-CMS) ??? SOB (shortness of breath) ??? Substance abuse (HCC-CMS) Past Surgical History: Procedure Laterality Date ??? APPENDECTOMY 2008 ??? CHOLECYSTECTOMY 1997 ??? COLECTOMY 2000 diverticulitis Social History Socioeconomic History ??? Marital status: Single Spouse name: Not on file ??? Number of children: Not on file ??? Years of education: Not on file ??? Highest education level: Not on file Occupational History ??? Not on file Social Needs ??? Financial resource strain: Not on file ??? Food insecurity: Worry: Not on file Inability: Not on file ??? Transportation needs: Medical: Not on file Non-medical: Not on file Tobacco Use ??? Smoking status: Current Every Day Smoker Packs/day: 1.00 Years: 40.00 Pack years: 40.00 Types: Cigarettes ??? Smokeless tobacco: Never Used ??? Tobacco comment: since 11 yo Substance and Sexual Activity ??? Alcohol use: No ??? Drug use: No ??? Sexual activity: Not on file Lifestyle ??? Physical activity: Days per week: Not on file Minutes per session: Not on file ??? Stress: Not on file Relationships ??? Social connections: Talks on phone: Not on file Gets together: Not on file Attends zoroastrianism service: Not on file Active member of club or organization: Not on file Attends meetings of clubs or organizations: Not on file Relationship status: Not on file ??? Intimate partner violence: Fear of current or ex partner: Not on file Emotionally abused: Not on file Physically abused: Not on file Forced sexual activity: Not on file Other Topics Concern ??? Not on file Social History Narrative ??? Not on file Family History Problem Relation Age of Onset ??? Arthritis-Osteo Maternal Grandmother Review of Systems: A 12 point review of system was performed and reviewed. Pertinent positives havebeen included in HPI and past medical history. All others negative. Please see scan documents for details. Physical Exam: Vitals: BP 133/73 Pulse 80 Temp 36.7 ??C (98.1 ??F) (Tympanic) General: Patient is alert and oriented x3, no acute distress Skin: clear, warm, dry and intact and no rashes, bruises or petechiae noted Musculoskeletal: Gait: patient ambulates independently , steady gait no obvious scoliosis or abnormal curvature of the spine + tenderness upon palpation of occipital area of head Thoracic Spine: + tenderness elicited upon palpation mid thoracic spine in between scapulas , trigger point identified, pain elicited upon facet loading Upper Extremity: strength 5/5, sensory bilaterally equal to light tough, negative spurling's test, biceps and brachioradials reflex 2/4 bilateral Assessment: 1. Bilateral occipital neuralgia 2. Myofascial pain 3. Chronic midline thoracic back pain Plan/Recommendations : Ms. Aydee Johns is a 54 y.o. female with past medical history significant for sleep apnea, depression, idiopathic small fiber neuropathy, and seziures that presents to the pain clinic for initial consultation and treatment recommendations concerning her chronic thoracic back pain and headaches. Given the patient's symptomatology, physical exam findings and imaging results, we feel that the patient would most likely benefit from the following interventions. All risks, benefits, and alternatives were thoroughly explained to Ms. Aydee Johns who verbally communicated understanding of the management plan. 1. Interventional: In regards to injection therapy, recommend proceeding with trigger point injection into the thoracic spine. I also suggest for her occipital neuralgia, bilateral occipital nerve blocks. 2. Medication Recommendations: Patient is currently taking gabapentin 1600 mg twice a day. She is not interested in any other medication. I did suggest also lidocaine patches that she could apply to her mid thoracic back. I have sent a prescription to the pharmacy. 3. Alternative Recommendations: I suggest that she continue home exercise program. 4. Follow up plan: Follow-up for injection. I spent a total of 45 minutes of face to face conversation and counseling with this patient today and greater than half of that time was spent discussing the clinical, objective findings, coordination of care, and treatment recommendations that were considered and reviewed above. I was directly supervised by , who was in suite and immediately available during the entirepatient encounter. Ruth Gomez PA-C-C documented in this encounter Plan of Treatment Not on file documented as of this encounter Visit Diagnoses Diagnosis Bilateral occipital neuralgia- Primary Other syndromes affecting cervical region Myofascial pain Mylagia and myositis, unspecified Chronic midline thoracic back pain documented in this encounter Care Teams Furnace Converter Relationship Specialty Start Date End Date Jennifer Sr MD [address], [facility] [place] [address] PCP - General 12/03/18 08/29/22 documented as of this encounter
--- OUTSIDE RECORDS SUMMARY | 2023-11-09 16:49 | XMS_ITS | Encounter Summary ---
Author Organization [facility] [place] [address] Care Team Providers Care Radio Repair Teacher Name Role Phone Zoraida Ordoñez MD Primary Care Provider [phone] Encounter Details Date Type Department Care Team (Late st Contact Info) Description 05/19/2011 Ancillary Procedure [place] [phone] Minnie Muñoz, JOINER [facility] [place] [address] Social History Tobacco Use Types Packs/Day Years [...] PM EDT Office [place] [address] Justin Sevilla MD [facility] [place] [address] 01/23/2024 2:00 PM EDT Office Visit [facility] [place] [address] Kenneth Martin MD [facility] [place] [address] documented as of this encounter Procedures Procedure Name Priority Date/Time Associated Diagnosis Comments FILM LIBRARY STORAGE ONLY DX SPINE Routine 05/19/2011 12:00 AM EST documented in this encounter Results * Film Library- Storage Only DX Spine (05/19/2011 12:00 AM EST) Narrative [facility] - 02/06/2023 9:39 PM EDT This exam is auto-finalizing. It's purpose is for storage only. Minnie Muñoz APRN IMG FILM LIBRARY OR DERABLES Performing Organization Address City/State/[facility] Co de Phone Number [place], [place] documented in this encounter Visit Diagnoses Not on filedocumented in this encounter Care Teams Radio Repair Teacher Relationship Specialty Start Date End Date Zoraida Ordoñez MD [address] [place] [address] PCP - General 04/26/11 05/24/14 documented as of this encounter
--- OUTSIDE RECORDS SUMMARY | 2023-11-09 16:49 | XMS_ITS | Encounter Summary ---
Author Organization [facility] [place] [address] Care Team Providers Care Cylinder Steamer Name Role Phone JAY Ann, Cassidy Primary Care Provider [phone] Reason for Visit * Reason Onset Date Comments Other 12/25/2014 Encounter Details Date Type Department Care Team ([facility] st Contact Info) Description 12/25/2014 [place] [address] Song Allen MD [facility] [place] [address] Other Social History Tobacco Use Types Packs/Day [...] Telephone Encounter - Thi Powell RN - 12/30/2014 3:49 PM EDT Tc from patient, and she is being seen by the pain clinic that was referred by her PCP. Rx for Cymbalta and Lyrica was prescribed by the pain clinic, but patient's insurance denied payment. Patient is currently working with the Rx manufactures to have medication covered. Patient states, compound medication that Dr. Allen doesn't work. Instructed patient that Dr. Allne medical secretary teacher Obdulio will be calling her to set up an appointment with Dr. Miner, for a skin biopsy, and will f/u with Dr. Allen in about one month after about the results. Patient verb understanding to instructions. * Telephone Encounter - Thi Powell RN - 12/30/2014 3:34 PM EDT Tc to patient and left message on voicemail. * Telephone Encounter - Thi Powell RN - 12/28/2014 8:10 AM EDT Last appointment 09-04-14 Tc to patient, and at last appointment was a discussion about skin biopsy. Patient is still experiencing numbing and tingling of both feet, and now has cramping of her calf's. Patient states, Pouring cold water over my feet is very painful. Patient is now is ambulating with a cane. Patient is inquiring about scheduling for a skin biopsy? Please advise. * Telephone Encounter - Carlene Carney - 12/25/2014 4:24 PM EDT Patient states back in August a skin biopsy was discussed. Patient is asking if Dr. Allen still thinks it's worth having done. Patient would like a call back, please advise. documented in this encounter Plan of Treatment Upcoming Encounters Date Type Department Care Team (Late st Contact Info) Description 12/25/2023 2:00 PM EDT Office [place] [address] Justin Sevilla MD [facility] [place] [address] 01/23/2024 2:00 PM EDT Office Visit [place] [address] Kenneth Martin MD [facility] [place] [address] documented as of this encounter Visit Diagnoses Not on filedocumented in this encounter Care Teams Cylinder Steamer Relationship Specialty Start Date End Date Cassidy Ware PA PCP - General 09/04/14 08/26/15 documented as of this encounter
--- OUTSIDE RECORDS SUMMARY | 2023-11-09 16:49 | XMS_ITS | Encounter Summary ---
[place] [address] Care Team Providers Care Tape Deck Installer Name Role Phone JAY Ann, Cassidy Primary Care Provider [phone] Encounter Details Date Type Department Care Team (Latest Contact Info) Description 2015 2:41 PM EDT - 2015 11:59 PM EDT [place] [address] Stuart Miner MD [facility] [place] [address] Discharge Disposition: Home Social History Tobacco Use [...] Sig Dispensed Refills Start Date End Date gabapentin 300 mg Tablet Sustained Release 24 hr Take 900 mg by mouth 4 times daily. ranitidine (ZANTAC) 150 mg Tablet Take 150 mg by mouth nightly. 08/31/2020 traMADol (ULTRAM) 50 mg Tablet Take 25 mg by mouth nightly. 10/20/2015 documented as of this encounter Plan of Treatment Upcoming Encounters Date Type Department Care Team ( st Contact Info) Description 12/25/2023 2:00 PM EDT Office [place] [address] Justin Sevilla MD [facility] [address] 01/23/2024 2:00 PM EDT Office Visit [place] [address] Kenneth Martin MD [facility] [address] documented as of this encounter Visit Diagnoses Not on filedocumented in this encounter Care Teams Tape Deck Installer Relationship Specialty Start Date End Date Cassidy Ware PA PCP - General 09/04/14 08/26/15 documented as of this encounter
--- OUTSIDE RECORDS SUMMARY | 2023-11-09 16:49 | XMS_ITS | Encounter Summary ---
Author Organization [facility] [place] [address] Care Team Providers Care Slot Supervisor Name Role Phone JAY Ann, Cassidy Primary Care Provider [phone] Reason for Referral * MRI/CAT Scan - Specialty Diagnoses / Procedures Referred By Mayda jalloh Referred To Contact Procedures NM myocardial perfusion - stress & rest Christian Pineda Jr., MD [address] [place] [address] Referral ID Status Reason Start Date Expiration Date V isits Requested Visits Authorized [id number] 01/04/2015 07/03/2015 1 1 Reason for Visit * Reason Comments Chest Pain Encounter Details Date Type Department Care Team (Late st Contact Info) Description 01/04/2015 9:00 AM EDT Procedure visit [facility] [address] [place] [phone] Christian Pineda Jr., MD [address] [place] [address] Non-cardiac chest pain Social History Tobacco Use Types Packs/Day [...] as of this encounter Progress Notes * Christian Pineda Jr., MD - 01/04/2015 5:10 PM EDT MIBI negative for ischemia documented in this encounter Plan of Treatment Upcoming Encounters Date Type Department Care Team (Late st Contact Info) Description 12/25/2023 2:00 PM EDT Office [place] [address] Justin Sevilla MD [facility] [address] PLASTIC SURGERY [place], [place] [address] 01/23/2024 2:00 PM EDT Office Visit [place] [address] Kenneth Martin MD [facility] [place] [address] documented as of this encounter Procedures Procedure Name Priority Date/Time Associated Diagnosis Comments NM EXERCISE STRESS AND REST MYOCARDIAL PERFUSION Routine 01/04/2015 documented in this encounter Results * NM myocardial perfusion - stress & rest (01/04/2015) Anatomical Region Laterality Modality Other Narrative 01/04/2015 Lexiscan MIBI Stress Test- Final Report ?Aydee Johns 1965 [facility], [address] [place] [address] Primary Physician: JAY NGUYEN (General) ? Indication: chest pain ??Date: 01/04/2015 Summary: Max Exercise: ?Lexiscan protocol Max HR: ??94 ? Max BP: ??158/[address] change: ??none Symptoms: ??Brief dyspnea Imaging: ??Normal perfusion and wall motion ??EF ??80% Impression: no ischemia, normal EF Details: Medication: no cardiac Risk Factors: ?? Family History, ??Cholesterol, Smoking Resting EKG: ??SB 57, QS V2, low voltage ?? Resting BP: 125/87 Arrhythmias: none Recovery: ??BP ?? -> ?? 128/76 ?HR ?? -> 80 Arrhythmias: none Rest Images: 27.3 mC MIBI, Spect-normal Stress Images: ??10 mC MIBI, Spect-normal Electronically signed: Christian Pineda Jr, MD [facility] ??Date: 01/04/2015 Historical Provider MD HAN NM ORDERABLES documented in this encounter Visit Diagnoses Diagnosis Non-cardiac chest pain Other chest pain documented in this encounter Care Teams Slot Supervisor Relationship Specialty Start Date End Date Cassidy Ware PA PCP - General 09/04/14 08/26/15 documented as of this encounter
[2023-11-09 16:50] LABS: HCT 39.8 % (36.0-46.0); HGB 12.5 g/dL (11.2-15.7); MCH 28.5 pg (27.0-33.0); MCHC 31.4 % (32.0-36.0); MCV 91 fL (80-95); MPV 9.3 fL (8.0-11.0); Platelet Count 359 10^3/uL (130-400); RBC 4.39 10^6/uL (3.93-5.22); RDW 13.2 % (11.7-14.6); RDW-SD 44.1 fL; WBC 7.17 10^3/uL (4.4-10.8)
--- OUTSIDE RECORDS SUMMARY | 2023-11-09 16:50 | XMS_ITS | Encounter Summary ---
Author Organization [facility] Address [address] [place] [address] Care Team Providers Care Trimmer Machine Name Role Phone Obey Osborn APRN Primary Care Provider [phone] None, Provider Primary Care Provider Jennifer Rushing MD Primary Care Provider [phone] Reason for Visit * Reason Onset Date Comments Appointment Related 11/19/2017 Encounter Details Date Type Department Care Team ([facility] Contact Info) Description 11/19/2017 Telephone [facility]le Program - [address] [address] Talha Oates DPM [address] [place] [address] Appointment Related Social History Tobacco Use Types [...] as visiting a doctor's office or shopping? No 10/09/2017 Cognitive Status Response Date of Assessm ent Because of a physical, menta l, or emotional condition, does this person have serious difficulty concentrating, remembering, or making decisions? Yes 10/09/2017 documented as of this encounter Miscellaneous Notes * Telephone Encounter - Valente Vazquez - 11/19/2017 0729 EDT PAS Message: Appointment scheduled for 2:30 pm this afternoon SundayNovember [address] O[address]. Just calling to confirm that she WILL be at her appointment today, She was asked to call back and confirm. documented in this encounter Plan of Treatment Not on file documented as of this encounter Visit Diagnoses Not on filedocumented in this encounter Care Teams Trimmer Machine Relationship Specialty Start Date End Date Obey Osborn APRN [address] [place] [address] [address] [place] [address] PCP - General 08/29/17 10/10/18 None, Provider PCP - General 10/11/18 12/02/18 Jennifer Sr MD [address] [facility] [address] [place] [address] PCP - General 12/03/18 08/29/22 documented as of this encounter
--- OUTSIDE RECORDS SUMMARY | 2023-11-09 16:50 | XMS_ITS | Encounter Summary ---
Author Organization [facility] Address [address] [place] [address] Care Team Providers Care Host/Hostess Ground Name Role Phone Jennifer Sr MD Primary Care Provider [phone] Encounter Details Date Type Department Care Team ([facility] st Contact Info) Description 12/17/2018 Phlebotomy Only [address] [address] [place] [employer], Outpatient Positive ADRIANA (antinuclear antibody); Malaise and fatigue; Small fiber neuropathy; Thoracolumbar back pain; Paresthesia of both feet Social History Tobacco Use Types Packs/Day Years [...] Procedure Name Priority Date/Time Associated Diagnosis Comments SS-B (LA) ANTIBODY, IGG Routine 12/17/2018 9:02 EDT Positive ADRIANA (antinuclear antibody) Small fiber neuropathy OTTOHN SSA ANTIBODIES BY ALMA ROSA Routine 12/17/2018 9:02 EDT Positive ADRIANA (antinuclear antibody) Small fiber neuropathy SM (AGEE) ANTIBODY, IGG Routine 12/17/2018 9:02 EDT Positive ADRIANA (antinuclear antibody) Small fiber neuropathy CCP ANTIBODIES Routine 12/17/2018 9:02 EDT Positive ADRIANA (antinuclear antibody) Small fiber neuropathy ARTHRITIS 1 Routine 12/17/2018 9:02 EDT Positive ADRIANA (antinuclear antibody) Small fiber neuropathy [employer] ANTIBODY, IGG Routine 12/17/2018 9:0 2 EDT Positive ADRIANA (antinuclear antibody) Small fiber neuropathy DOUBLE STRANDED DNA ANTIBODY, IGG Routine 12/17/2018 9:02 EDT Positive ADRIANA (antinuclear antibody) Small fiber neuropathy ANCA, IFA Routine 12/17/2018 9:02 EDT Positive ADRIANA (antinuclear antibody) Small fiber neuropathy URINE CHEMICAL (DIP) & SEDIMENT (MICRO) WITHOUT REFLEX TO CULTURE Routine 12/17/2018 9:02 EDT Positive ADRIANA (antinuclear antibody) SED RATE Routine 12/17/2018 9:02 EDT Positive ADRIANA (antinuclear antibody) Small fiber neuropathy COMPLETE BLOOD COUNT AND DIFFERENTIAL Routine 12/17/2018 9:02 EDT Positive ADRIANA (antinuclear antibody) Small fiber neuropathy ANGIOTENSIN CONVERTING ENZYME (LESLI) Routine 12/17/2018 9:02 EDT Positive ADRIANA (antinuclear antibody) Small fiber neuropathy C REACTIVE PROTEIN Routine 12/17/2018 9: 02 EDT Positive ADRIANA (antinuclear antibody) Small fiber neuropathy TSH Routine 12/17/2018 9:02 EDT Positive ADRIANA (antinuclear antibody) Malaise and fatigue Small fiber neuropathy THYROID ANTIBODIES Routine 12/17/2018 9: 02 EDT Malaise and fatigue Positive ADRIANA (antinuclear antibody) Small fiber neuropathy SPEP, INCLUDES QUANTITATION OF MONOCLONAL SPIKE Routine 12/17/2018 9:02 EDT Positive ADRIANA (antinuclear antibody) Small fiber neuropathy CK Routine 12/17/2018 9:02 EDT Positive ADRIANA (antinuclear antibody) Small fiber neuropathy COMPREHENSIVE METABOLIC PANEL (CMP) Routine 12/17/2018 9:02 EDT Positive ADRIANA (antinuclear antibody) Small fiber neuropathy documented in this encounter Results * ANTI DNA (DOUBLE STRAND) (12/17/2018 9:02 EDT) Anti DNA (DS) <12.3 <30 IU/mL 12/19/2018 14:51 EDT [facility] Comment:Results were obtaine d with the Infoblox QUANTA Lite dsDNA SC ALMA ROSA assay. Blood specimen (specimen) BLOOD SPECIMEN / Unknown 12/17/2018 9:02 EDT 12/17/2018 10:10 EDT Carl Flood MD IMMUNOLOGY AND SEROL OGArtemio ORDERABLES Performing Organization Address City/[facility]/ZIP Co de Phone Number [facility] [address] [place] [address] * ANCA, IFA (12/17/2018 9:02 EDT) ANCA Interpretation Negative Negative 12/18/2018 14:19 EDT [facility] Comment: ADRIANA Positive, suggest follow-up ADRIANA testing if clinically indicated. Cannot rule out Atypical ANCA (A-ANCA). No titer performed, ANCA screen is negative. Results were obtained with the INOVA NOVA Lite ANCA kit by indirect immunofluorescence. Blood specimen (specimen) BLOOD SPECIMEN / Unknown 12/17/2018 9:02 EDT 12/17/2018 10:10 EDT Carl Flood MD IMMUNOLOGY AND SEROL OGY ORDERABLES [facility] [address] [place] [address] * ANGIOTENSIN CONVERTING ENZYME (LESLI) (12/17/2018 9:02 EDT) Pathologist [facility] Angiotensin Converting Enzyme 32 16 - 85 U/L 12/19/2018 8:10 EDT [facility] Comment: Performed or Referred by: [facility], [address] [place] [address] Blood specimen (specimen) BLOOD SPECIMEN / Unknown 12/17/2018 9:02 EDT 12/17/2018 10:10 EDT Narrative Authorizing Provider Result Charly Flood MD CHEMISTRY & BLOOD GA S ORDERABLES Performing Organization Address [facility] Co de Phone Number [facility] [address] [place] [address] * SM (AGEE) ANTIBODY (12/17/2018 9:02 EDT) [facility] Sm (Agee) Antibody 1.8 <20 Units 12/19/2018 13:07 EDT [facility] Comment: Negative: <20 Units Weak Positive: 20 - 39 Units Moderate Positive: 40 - 80 Units Strong Positive: >80 Units Results were obtained with the Infoblox QUANTA Lite Sm ALMA ROSA. Sm values obtained with different manufacturers' assay methods may not be used interchangeably. The magnitude of the reported IgG levels cannot be correlated to an endpoint titer. Blood specimen (specimen) BLOOD SPECIMEN / Unknown 12/17/2018 9:02 EDT 12/17/2018 10:10 EDT Narrative Authorizing Provider Result Charly Flood MD IMMUNOLOGY AND SEROL OGY ORDERABLES Performing Organization Address [facility] Co de Phone Number [facility] [address] [place] [address] * (ABNORMAL) ARTHRITIS 1 (12/17/2018 9:02 EDT) [facility] Rheumatoid Factor 11 <12.5 IU/mL 2018 12:47 EDT [facility] ADRIANA Interpretation Positive(A) Negative 12/18/2018 14:19 EDT [facility] Comment: For titers greater than or equal to 1:160 (except the centromere and nucleolar patterns) it is recommended that specific, follow-up autoantibody testing (such as for dsDNA and Extractable Nuclear Antigens) be performed on all diffuse and/or speckled patterns. NOTE: For add-on testing, dsDNA is felix for 7 days refrigerated, while Extractable Nuclear Antigens are only stable for 48 hours refrigerated. Results were obtained with the INOVA NOVA Lite HEp-2 ADRIANA kit by indirect immunofluorescence. ADRIANA Titer Pattern 1:320 Homogeneous 12/18/2018 14:19 [facility] Blood specimen (specimen) BLOOD SPECIMEN / Unknown 12/17/2018 9:02 EDT 12/17/2018 10:10 EDT Carl Flood MD IMMUNOLOGY AND SERWALESKA BREAUX ORDERABLES [facility] [address] [place] [address] * (ABNORMAL) COMPLETE BLOOD COUNT AND DIFFERENTIAL (12/17/2018 9:02 EDT) WBC 8.88 4.0 - 12.4 K/cmm 12/17/2018 10:22 [facility] RBC 4.31 3.86 - 5.04 M/cmm 12/17/2018 10:22 [facility] Hemoglobin 13.8 11.6 - 15.2 gm/dl 12/17/2018 10:22 [facility] HCT 40.6 34.9 - 44.4 % 12/17/2018 10:22 [facility] MCV 94 81 - 98 fl 12/17/2018 10:22 [facility] MCH 32.0 26.7 - 33.3 pg 12/17/2018 10:22 [facility] MCHC 34.0 32.1 - 35.9 gm/dl 12/17/2018 10:22 [facility] RDW-CV 11.9 <14.7 % 12/17/2018 10:22 [facility] RDW-SD 41.2 <50.4 fl 12/17/2018 10:22 [facility] PLT 316 141 - 377 K/cmm 12/17/2018 10:22 [facility] MPV 9.5 9.5 - 12.7 fl 12/17/2018 10:22 [facility] % Neutrophils 50.4 % 12/17/2018 10:22 [facility] % Lymphocytes 38.3 % 12/17/2018 10:22 [facility] % Monocytes 7.0 % 12/17/2018 10:22 [facility] % Eosinophils 3.5 % 12/17/2018 10:22 [facility] % Basophils 0.6 % 12/17/2018 10:22 [facility] % Immature Grans 0.2 % 12/17/2018 10:22 [facility] ABS Neutrophils 4.48 2.20 - 8.85 K/cmm 12/17/2018 10:22 [facility] ABS Lymphs 3.40(H) 1.09 - 3.30 K/cmm 12/17/2018 10:22 [facility] ABS Monocytes 0.62 0.1 - 0.8 K/cmm 12/17/2018 10:22 [facility] ABS Eosinophils 0.31 0.03 - 0.61 K/cmm 12/17/2018 10:22 [facility] ABS Basophils 0.05 0.01 - 0.11 K/cmm 12/17/2018 10:22 [facility] ABS Immature Grans 0.02 0 - 0.06 K/cm 12/17/2018 10:22 [facility] Type of Diff: Automated 12/17/2018 10:22 [facility] Blood specimen (specimen) BLOOD SPECIMEN / Unknown 12/17/2018 9:02 EDT 12/17/2018 10:10 EDT Carl Flood MD PACKAGES & DNA PROBE ORDERABLES [facility] [address] [place] [address] * (ABNORMAL) COMPREHENSIVE METABOLIC PANEL (CMP) (12/17/2018 9:02 EDT) Potassium 3.9 3.5 - 5.0 mEq/L 12/17/2018 12:00 [facility] Sodium 141 136 - 145 mEq/L 12/17/2018 12:00 [facility] Chloride 103 96 - 110 mEq/L 12/17/2018 12:00 [facility] CO2 29 22 - 32 mEq/L 12/17/2018 12:00 [facility] Total Alkaline Phosphatase 56 38 - 126 U/L 12/17/2018 12:00 [facility] Bilirubin, Total <0.5 <1.4 mg/dl 12/18/19 19 12:00 [facility] AST 20 15 - 46 U/L 12/17/2018 12:00 [facility] ALT 18 <34 U/L 12/17/2018 12:00 [facility] Albumin 4.4 3.4 - 4.9 g/dl 12/17/2018 12:00 [facility] Total Protein 7.2 6.3 - 8.2 g/dl 12/17/2018 12:00 [facility] Creatinine 0.59 0.52 - 1.04 mg/dl 12/17/2018 12:00 [facility] GFR, Calculated 104 >60 ml/min/1.7 3m2 12/17/2018 12:00 [facility] Comment: eGFR calculated using CKD-EPI equation for non Americans. Multiply eGFR by 1.16 for Americans. BUN 7(L) 10 - 26 mg/dl 12/17/2018 12:00 [facility] Calcium 10.1 8.5 - 10.5 mg/dl 12/17/2018 12:00 [facility] Calculated Calcium 9.8 8.5 - 10.5 mg/dl 12/17/2018 12:00 [facility] Glucose, Serum 98 70 - 100 mg/dl 12/17/2018 12:00 [facility] Fasting? No 12/17/2018 8:55 EDT [facility] Blood specimen (specimen) BLOOD SPECIMEN / Unknown 12/17/2018 9:02 EDT 12/17/2018 10:10 EDT Narrative Authorizing Provider Result Charly Flood MD CHEMISTRY & BLOOD GA S ORDERABLES Performing Organization Address [facility]/ZIP Co de Phone Number [facility] [address] [place] [address] * CK (12/17/2018 9:02 EDT) CK 55 30 - 135 U/L 12/17/2018 11:49 EDT [facility] Blood specimen (specimen) BLOOD SPECIMEN / Unknown 12/17/2018 9:02 EDT 12/17/2018 10:10 EDT Narrative Authorizing Provider Result Charly Flood MD CHEMISTRY & BLOOD GA S ORDERABLES Performing Organization Address [facility]/ZIP Co de Phone Number [facility] [address] [place] [address] * CCP ANTIBODIES (12/17/2018 9:02 EDT) CCP Antibodies <2.5 <5.0 U/mL 12/17/2018 13:18 EDT [facility] BLOOD SPECIMEN / Unknown 12/17/2018 9:02 EDT 12/17/2018 10:10 EDT Narrative Authorizing Provider Result Charly Flood MD IMMUNOLOGY AND SEROL OGY ORDERABLES Performing Organization Address City/[facility] Co de Phone Number [facility] [address] [place] [address] * (ABNORMAL) C REACTIVE PROTEIN (12/17/2018 9:02 EDT) C Reactive Protein 11.4(H) <10.0 mg/L 12/17/2018 12:00 EDT [facility] Blood specimen (specimen) BLOOD SPECIMEN / Unknown 12/17/2018 9:02 EDT 12/17/2018 10:10 EDT Carl Flood MD CHEMISTRY & BLOOD GA S ORDERABLES Performing Organization Address [facility] Co de Phone Number [facility] [address] [place] [address] * SPEP, INCLUDES QUANTITATION OF MONOCLONAL SPIKE (12/17/2018 9:02 EDT) Total Protein 7.0 6.3 - 8.2 g/dl 12/17/2018 11:49 EDT [facility] Albumin % 63.3 55.8 - 66.1 % 12/18/2018 14:11 T [facility] Alpha-1 % 3.6 2.9 - 4.9 % 12/18/2018 14:11 EDT [facility] Alpha-2 % 10.1 7.1 - 11.8 % 12/18/2018 14:11 EDT [facility] Beta % 11.4 8.4 - 13.1 % 12/18/2018 14:11 T [facility] Gamma % 11.6 11.1 - 18.8 % 12/18/2018 14:11 [facility] Comments 12/18/2018 14:11 T [facility] Comment: No apparent monoclonal protein on serum electrophoresis. See Pathology Scanned Report in EPIC. Blood specimen (specimen) BLOOD SPECIMEN / Unknown 12/17/2018 9:02 EDT 12/17/2018 10:10 EDT Carl Flood MD CHEMISTRY & BLOOD GA S ORDERABLES Performing Organization Address City/[facility] Co de Phone Number [facility] [address] [place] [address] * SSA ANTIBODIES BY ALMA ROSA (12/17/2018 9:02 EDT) SSA Antibody 3.2 <20 Units 12/19/2018 13:07 EDT [facility] Comment: Negative: <20 Units Weak Positive: 20 - 39 Units Moderate Positive: 40 - 80 Units Strong Positive: >80 Units Results were obtained with the Infoblox QUANTA Lite SS-A ALMA ROSA. SS-A values obtained with different manufacturers' assay methods may not be used interchangeably. The magnitude of the reported IgG levels cannot be correlated to an endpoint titer. Blood specimen (specimen) BLOOD SPECIMEN / Unknown 12/17/2018 9:02 EDT 12/17/2018 10:10 EDT Carl Flood MD IMMUNOLOGY AND SEROL OGArtemio ORDERABLES Performing Organization Address [facility] de Phone Number [facility] [address] [place] [address] * [employer] ANTIBODIES BY ALMA ROSA (12/17/2018 9:02 EDT) [employer] Antibody 1.7 <20 Units 12/19/2018 13:07 EDT [facility] Comment: Negative: <20 Units Weak Positive: 20 - 39 Units Moderate Positive: 40 - 80 Units Strong Positive: >80 Units Results were obtained with the INOVA QUANTA Lite [employer] ALMA ROSA. [employer] Values obtained with different manufacturers' assay methods may not be used interchangeably. The magnitude of the reported IgG levels cannot be correlated to an endpoint titer. A positive result in the QUANTA Lite [employer] ALMA ROSA indicates the presence of antibodies reactive with the [employer]/Sm complex but cannot distinguish between anti-Sm and anti-[employer]ER activity. Blood specimen (specimen) BLOOD SPECIMEN / Unknown 12/17/2018 9:02 EDT 12/17/2018 10:10 EDT Carl Flood MD IMMUNOLOGY AND SEROL SAEID ORDERABLES Performing Organization Address [facility] de Phone Number [facility] [address] [place] [address] * SSB ANTIBODIES BY ALMA ROSA (12/17/2018 9:02 EDT) SSB Antibody 3.0 <20 Units 12/19/2018 13:07 EDT [facility] Comment: Negative: <20 Units Weak Positive: 20 - 39 Units Moderate Positive: 40 - 80 Units Strong Positive: >80 Units Results were obtained with the INOVA QUANTA SS-B ALMA ROSA. SS-B values obtained with different manufacturers' assay methods may not be used interchangeably. The magnitude of the reported IgG levels cannot be correlated to an endpoint titer. Blood specimen (specimen) BLOOD SPECIMEN / Unknown 12/17/2018 9:02 EDT 12/17/2018 10:10 EDT Narrative Authorizing Provider Result Charly Flood MD IMMUNOLOGY AND SEROL OGY ORDERABLES Performing Organization Address [facility] Co de Phone Number [facility] [address] [place] [address] * TSH (12/17/2018 9:02 EDT) Pathologist [facility] TSH 1.46 0.47 - 4.68 uIU/ml 12/17/2018 12:19 EDT [facility] Comment: The results of this assay can be falsely lowered due to the consumption of Biotin. Blood specimen (specimen) BLOOD SPECIMEN / Unknown 12/17/2018 9:02 EDT 12/17/2018 10:10 EDT Narrative Authorizing Provider Result Charly Flood MD CHEMISTRY & BLOOD GA S ORDERABLES Performing Organization Address [facility] Co de Phone Number [facility] [address] [place] [address] * SED. RATE:WESTERGREN (12/17/2018 9:02 EDT) [facility] Sed. Rate Westergren 5 0 - 30 mm/hr 12/17/2018 10:21 EDT [facility] Blood specimen (specimen) BLOOD SPECIMEN / Unknown 12/17/2018 9:02 EDT 12/17/2018 10:10 EDT Narrative Authorizing Provider Result Charly Flood MD HEMATOLOGY & PF4 ORD ERABLES Performing Organization Address [facility] Co de Phone Number [facility] [address] [place] [address] * THYROID ANTIBODIES (12/17/2018 9:02 EDT) Pathologist [facility] Thyroglobulin Ab 19 <61 U/mL 12/18/19 19 12:20 EDT [facility] Thyroperoxidase Ab 44 <61 U/mL 2018 13:08 EDT [facility] Blood specimen (specimen) BLOOD SPECIMEN / Unknown 12/17/2018 9:02 EDT 12/17/2018 10:10 EDT Carl Flood MD CHEMISTRY & BLOOD GA S ORDERABLES [facility] [address] [place] [address] * UA, CHEMICAL AND SEDIMENT ANALYSIS (DIPSTICK AND MICROSCOPIC) (12/17/2018 9:02 EDT) Color, UA Yellow 12/17/2018 9:42 T [facility] Clarity, UA Clear 12/17/2018 9:42 [facility] Glucose, UA Neg Neg 12/17/2018 9:42 [facility] Bilirubin, UA Neg Neg 12/17/2018 9:42 [facility] Ketones, UA Neg Neg 12/17/2018 9:42 [facility] Refractometer SG,Urine 1.020 1.001 - 1.035 12/17/2018 9:42 [facility] Blood, UA Neg Neg 12/17/2018 9:42 [facility] pH, UA 5.0 4.6 - 8.0 12/17/2018 9:42 [facility] Protein, UA Neg Neg 12/17/2018 9:42 [facility] Urobilinogen, UA Normal Normal E.U./dl 12/17/2018 9:42 [facility] Nitrite, UA Neg Neg 12/17/2018 9:42 [facility] Leuk Esterase Neg Neg 12/17/2018 9:42 [facility] UA Method Used 12/17/2018 8:51 [facility] Comment: Testing performed using [employer]. Urine RBC Count Automated 0 to 2 0 to 2 /HPF 12/17/2018 9:42 [facility] Urine WBC Count Automated 0 to 3 0 to 3 /HPF 12/17/2018 9:42 [facility] Urine Squamous Epithelial Cell Count, Automated None seen None seen /LPF 12/17/2018 9:42 EDT [facility] Urine Hyaline Casts, Automated < or = 10 < or = 10 /LPF 12/17/2018 9:42 EDT [facility] Urine Bacteria Count, Automated None seen None seen 12/17/2018 9:42 EDT [facility] UA Comment Sediment results 12/17/2018 9:42 EDT [facility] Comment: are unreliable on urines unrefrig >2hrs or refrig >8hrs. Urine specimen (specimen) URINE / Unknown 12/17/2018 9:02 EDT 12/17/2018 9:30 EDT Carl Flood MD URINALYSIS ORDERABLE S Performing Organization Address City/State/[facility] Co de Phone Number [facility] [address] [place] [address] documented in this encounter Visit Diagnoses Diagnosis Positive ADRIANA (antinuclear antibody) Other and unspecified nonspecific immunological findings Malaise and fatigue Other malaise and fatigue Small fiber neuropathy Unspecified hereditary and idiopathic peripheral neuropathy Thoracolumbar back pain Backache, unspecified Paresthesia of both feet documented in this encounter Care Teams Host/Hostess Ground Relationship Specialty Start Date End Date Jennifer Sr MD [address], [address] [address] PCP - General 12/03/18 08/29/22 documented as of this encounter
--- OUTSIDE RECORDS SUMMARY | 2023-11-09 16:50 | XMS_ITS | Encounter Summary ---
Author Organization [facility] Address [address] [place] [address] Care Team Providers Care Client Retention Specialist Name Role Phone Obey Osborn APRN Primary Care Provider [phone] Reason for Visit * Reason Onset Date Comments Appointment Related 03/04/2018 Encounter Details Date Type Department Care Team ([facility] st Contact Info) Description 03/04/2018 Telephone [facility] Neurology - [address] [id number] Robby Abraham MD [address] [place] [address] [address] [place] [phone] Appointment Related Social History Tobacco Use Types [...] visiting a doctor's office or shopping? No 01/14/2018 Cognitive Status Response Date of Assessm ent Because of a physical, menta l, or emotional condition, does this person have serious difficulty concentrating, remembering, or making decisions? Yes 01/14/2018 documented as of this encounter Miscellaneous Notes * Telephone Encounter - Aydee Pisano - 03/04/2018 0956 EST Spoke to Aydee, she advised she does want to come in and see Dr. Abraham today - I added back into the schedule. * Telephone Encounter - Aydee Pisano - 03/04/2018 0906 EST LM for Aydee that per Dr. Abraham he does not need to see her in follow up today since they had a long conversation last week. She should follow up with her PCP per the recommendations that Dr. Abraham sentto them last week. I have cancelled the 11 AM appointment - if Aydee should happen to come to the appointment he will see her but it isn't necessary. documented in this encounter Plan of Treatment Not on file documented as of this encounter Visit Diagnoses Not on filedocumented in this encounter Care Teams Client Retention Specialist Relationship Specialty Start Date End Date Obey Osborn APRN [address] [place] [address] [address] [place] [address] PCP - General 08/29/17 10/10/18 documented as of this encounter
--- OUTSIDE RECORDS SUMMARY | 2023-11-09 16:50 | XMS_ITS | Encounter Summary ---
Author Organization [facility] Address [address] [place] [address] Care Team Providers Care Mail Teller Name Role Phone Jennifer Sr MD Primary Care Provider [phone] Encounter Details Date Type Department Care Team ([facility] st Contact Info) Description 12/05/2018 Documentation Visit [facility] Neurophysiology - Main [address] [id number] Robby Abraham MD [address] [place] [address], [address] [place] [address] Social History Tobacco Use Types [...] Progress Notes * Robby Abraham MD - 12/05/2018 1350 EDT Just fyi, got labs ordered by PCP informing patient she has diabstes, which of course is a risk factor for peripheral neuropathy. documented in this encounter Plan of Treatment Not on file documented as of this encounter Visit Diagnoses Not on filedocumented in this encounter Care Teams Mail Teller Relationship Specialty Start Date End Date Jennifer Sr MD [address] [place] [address] PCP - General 12/03/18 08/29/22 documented as of this encounter
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
--- OUTSIDE RECORDS SUMMARY | 2023-11-09 16:50 | XMS_ITS | Encounter Summary ---
Author Organization [facility] Address [address] [place] [address] Care Team Providers Care Drapery Head Former Name Role Phone Obey Osborn APRN Primary Care Provider [phone] Reason for Visit * Reason Onset Date Comments Results 06/24/2018 Encounter Details Date Type Department Care Team ([facility] st Contact Info) Description 06/24/2018 Telephone [facility] [place] [address] Randall Corey MD [address] [place] [address] Results Social History Tobacco Use Types Packs/Day Years [...] encounter Miscellaneous Notes * Telephone Encounter - Randall Corey MD - 06/24/2018 6879 EDT Patient updated about result MRI head and MRI cervical spine Both with no acute findings documented in this encounter Plan of Treatment Not on file documented as of this encounter Visit Diagnoses Not on filedocumented in this encounter Care Teams Drapery Head Former Relationship Specialty Start Date End Date Obey Osborn APRN [address] [place] [address] [address] [place] [address] PCP - General 08/29/17 10/10/18 documented as of this encounter
--- OUTSIDE RECORDS SUMMARY | 2023-11-09 16:50 | XMS_ITS | Encounter Summary ---
Author Organization [facility] Address [address] [place] [address] Care Team Providers Care Electrical Logger Name Role Phone Obey Osborn APRN Primary Care Provider [phone] Reason for Visit * Reason Onset Date Comments Labs Only 03/18/2018 Encounter Details Date Type Department Care Team ([facility] st Contact Info) Description 03/18/2018 Telephone [facility] Neurology - [address] [id number] Robby Abraham MD [address] [place] [address] [address] [place] [phone] Labs Only Social History Tobacco Use Types Packs/Day Years [...] encounter Miscellaneous Notes * Telephone Encounter - Lukasz Will RN - 03/18/2018 1703 EST Returned call to Stephanie to suggest alternative diagnosis codes. * Telephone Encounter - Collin Yañez - 03/18/2018 1412 EST Stephanie from [facility] Billing called and said Dr Abraham ordered HEMOGLOBIN A1C lab on 01/14 with the DXcode G62.9. That code is not acceptable with Medicare and she is looking for a new DX code. Stephanie said she has emailed a list of codes that would be acceptable by Medicare to Dr Abraham directly. Please call Stephanie to discuss. documented in this encounter Plan of Treatment Not on file documented as of this encounter Visit Diagnoses Not on filedocumented in this encounter Care Teams Electrical Logger Relationship Specialty Start Date End Date Obey Osborn APRN [address] [place] [address] [address] [place] [address] PCP - General 08/29/17 10/10/18 documented as of this encounter
--- OUTSIDE RECORDS SUMMARY | 2023-11-09 16:50 | XMS_ITS | Encounter Summary ---
Author Organization [facility] Address [address] [place] [address] Care Team Providers Care Surgical Appliances Salesperson Name Role Phone Obey Osborn APRN Primary Care Provider [phone] None, Provider Primary Care Provider Jennifer Rushing MD Primary Care Provider [phone] Jacey Amador Primary Care Provider [phone] Reason for Visit * Reason Onset Date Comments Results 06/13/2018 Encounter Details Date Type Department Care Team (Late st Contact Info) Description 06/13/2018 Telephone [facility] Hematology & Oncology - [address] [address] Yarely Marti MD [address] [place] [address], [address] [place] [address] Results Social History Tobacco Use Types Packs/Day [...] encounter Miscellaneous Notes * Telephone Encounter - Don, Yasmeen - 06/13/2018 1622 EST Entered lab results from [facility] Yasmeen Templeffee 06/13/2018 16:24 documented in this encounter Plan of Treatment Not on file documented as of this encounter Procedures Procedure Name Priority Date/Time Associated Diagnosis Comments CREATININE Routine 06/13/2018 documented in this encounter Results * CREATININE (06/13/2018) Creatinine, External 0.60 [facility] GFR, Calculated, External [facility] Blood specimen (specimen) 06/13/2018 Historical Provider CHEMISTRY & BLOOD GAS ORDERABLES [facility] documented in this encounter Visit Diagnoses Not on filedocumented in this encounter Care Teams Surgical Appliances Salesperson Relationship Specialty Start Date End Date Obey Osborn APRN [address] [place] [address] [address] [place], [place] [address] PCP - General 08/29/17 10/10/18 None, Provider PCP - General 10/11/18 12/02/18 Jennifer Sr MD [address] [place] [address], [address] [place] [address] PCP - General 12/03/18 08/29/22 Jacey Amador FNP [address] [place] [address] [address] [place] [phone] PCP - General Family Medicine - Primary Care 08/30/22 documented as of this encounter
--- OUTSIDE RECORDS SUMMARY | 2023-11-09 16:50 | XMS_ITS | Encounter Summary ---
Author Organization [facility] Address [address] [place] [address] Care Team Providers Care Manager Environmental Health And Safety Name Role Phone Jennifer Sr MD Primary Care Provider [phone] Encounter Details Date Type Department Care Team (Latest Contact Info) Description 12/03/2018 15:33 EDT - 12/03/2018 23:59 EDT Hospital Encounter [address] [address] Randall Corey MD [address] [place] [id number] Discharge Disposition: Auto Discharge Social History Tobacco [...] R41.3 Other amnesia-R41.3[ICD-10-CM] documented in this encounter Medications at Time [...] Take 1 Tab by mouth as needed. amitriptyline (ELAVIL) 25 mg tablet Take 25 mg by mouth daily. 12/17/2018 Ginkgo Biloba 120 mg tablet Take by mouth. 12/17/2018 ranitidine (ZANTAC) 150 mg tablet Take 150 mg by mouth daily. 09/08/2022 riboflavin, vitamin B2, (VITAMIN B-2 ORAL) Take by mouth. 05/2022 UNABLE TO FIND Med Name: mineral 650 05/2022 UNABLE TO FIND Med Name: lipotrienols 05/2022 UNABLE TO FIND Med Name: rhizinate 2022 documented as of this encounter Discharge Disposition Disposition Code Departure Means Destination Auto Discharge Home documented in this encounter Plan of Treatment Not on file documented as of this encounter Visit Diagnoses Not on filedocumented in this encounter Care Teams Manager Environmental Health And Safety Relationship Specialty Start Date End Date Jennifer Sr MD [facility] [place] [address] PCP - General 12/03/18 08/29/22 documented as of this encounter
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
--- OUTSIDE RECORDS SUMMARY | 2023-11-09 16:50 | XMS_ITS | Encounter Summary ---
Author Organization [facility] Address [address] [place] [address] Care Team Providers Care Structural Engineer Name Role Phone Obey Osborn APRN Primary Care Provider [phone] Encounter Details Date Type Department Care Team ([facility] st Contact Info) Description 03/20/2018 Orders Only [facility] Neurology - S [address] [address] Robby Abraham MD [address] [place] [address] [address] [place] [address] Neuropathy (Primary Dx) Social History Tobacco Use Types [...] as of this encounter Visit Diagnoses Diagnosis Neuropathy- Primary Mononeuritis of unspecified site documented in this encounter Care Teams Structural Engineer Relationship Specialty Start Date End Date Obey Osborn APRN [address] [place] [address] [address] [place] [address] PCP - General 08/29/17 10/10/18 documented as of this encounter
--- OUTSIDE RECORDS SUMMARY | 2023-11-09 16:50 | XMS_ITS | Encounter Summary ---
Author Organization [facility] Address [address] [place] [address] Care Team Providers Care Precision Filer Hand Name Role Phone Jennifer Sr MD Primary Care Provider [phone] Encounter Details Date Type Department Care Team ([facility] st Contact Info) Description 12/17/2018 8:43 EDT - 12/17/2018 23:59 EDT Hospital Encounter [address] [address] Carl Flood Chi, MD [address] [place] [address], [address] [place] [address] Discharge Disposition: Auto Discharge Social History Tobacco [...] as of this encounter Discharge Diagnoses Diagnosis R53.81 Other malaise-R53.81[ICD-10-CM] R53.83 Other fatigue-R53.83[ICD-10-CM] R76.8 Other specified abnormal immunological findings in serum-R76.8[ICD-10-CM] G62.9 Polyneuropathy, unspecified-G62.9[ICD-10-CM] R20.2 Paresthesia of skin-R20.2[ICD-10-CM] M54.5 Low back pain-M54.5[ICD-10-CM] M54.6 Pain in thoracic spine-M54.6[ICD-10-CM] documented in this encounter Medications at Time [...] on filedocumented in this encounter Care Teams Precision Filer Hand Relationship Specialty Start Date End Date Jennifer Sr MD [address] [place] [address] PCP - General 12/03/18 08/29/22 documented as of this encounter
--- OUTSIDE RECORDS SUMMARY | 2023-11-09 16:50 | XMS_ITS | Encounter Summary ---
Author Organization [facility] Address [address] [place] [address] Care Team Providers Care Parimutuel Ticket Checker Name Role Phone Jennifer Sr MD Primary Care Provider [phone] Encounter Details Date Type Department Care Team ([facility] st Contact Info) Description 02/17/2019 Orders Only [facility] Total Joint Program - [address] [address] Altagracia Lozano NP [address] [place] [address] Right hip pain (Primary Dx); Left hip pain Social History Tobacco Use Types Packs/Day [...] as of this encounter Visit Diagnoses Diagnosis Right hip pain- Primary Pain in joint, pelvic region and thigh Left hip pain Pain in joint, pelvic region and thigh documented in this encounter Care Teams Parimutuel Ticket Checker Relationship Specialty Start Date End Date Jennifer Sr MD [address] [place] [address] PCP - General 12/03/18 08/29/22 documented as of this encounter
--- OUTSIDE RECORDS SUMMARY | 2023-11-09 16:50 | XMS_ITS | Encounter Summary ---
Author Organization [facility] Address [address] [place] [address] Care Team Providers Care Parts Manager Name Role Phone Obey Osborn APRN Primary Care Provider [phone] Encounter Details Date Type Department [facility] Team ([facility] Contact [facility]) Description 06/21/2018 Results Only Imaging [facility] [phone] Unknown, Provider, Social History Tobacco Use Types Packs/Day Years [...] as of this encounter Plan of Treatment Pending Results Name Type Priority Associated Diagnoses Date /Time OUTSIDE IMAGES - MR NEURO Imaging 06/21/2018 10:04 EDT OUTSIDE IMAGES - MR NEURO Imaging 06/21/2018 10:04 EDT documented as of this encounter Visit Diagnoses Not on filedocumented in this encounter Care Teams Parts Manager Relationship Specialty Start Date End Date Obey Osborn APRN [address] [place] [address] [address] [place] [address] PCP - General 08/29/17 10/10/18 documented as of this encounter
--- OUTSIDE RECORDS SUMMARY | 2023-11-09 16:50 | XMS_ITS | Encounter Summary ---
Author Organization [facility] Address [address] [place] [address] Care Team Providers Care Bass Fisher Name Role Phone Obey Osborn APRN Primary Care Provider [phone] Reason for Visit * Reason Onset Date Comments Appointment Related 09/28/2017 Encounter Details Date Type Department Care Team ([facility] st Contact Info) Description 09/28/2017 Telephone [facility] Neurology - [address] [address] Unknown, Doctor MD Appointment Related Social History Tobacco Use Types [...] visiting a doctor's office or shopping? No 08/29/2017 Cognitive Status Response Date of Assessm ent Because of a physical, menta l, or emotional condition, does this person have serious difficulty concentrating, remembering, or making decisions? Yes 08/29/2017 documented as of this encounter Miscellaneous Notes * Telephone Encounter - Aydee Pisano - 09/28/2017 1506 EDT LMOM to schedule NPV with [employer]), Shawanda Bashir or Jarad documented in this encounter Plan of Treatment Not on file documented as of this encounter Visit Diagnoses Not on filedocumented in this encounter Care Teams Bass Fisher Relationship Specialty Start Date End Date Obey Osborn APRN [address] [place] [address] [address] [place] [address] PCP - General 08/29/17 10/10/18 documented as of this encounter
--- OUTSIDE RECORDS SUMMARY | 2023-11-09 16:50 | XMS_ITS | Encounter Summary ---
Author Organization [facility] Address [address] [place] [address] Care Team Providers Care Drafter Mechanical Name Role Phone Jennifer Sr MD Primary Care Provider [phone] Jacey Amador Primary Care Provider [phone] Encounter Details Date Type Department Care Team ([facility] Contact Info) Description 02/28/2019 Lab Requisition [facility] [place] Pathology & Laboratory Medicine - [address] [address] Unknown, Provider, Social History Tobacco Use Types [...] Procedure Name Priority Date/Time Associated Diagnosis Comments HEPATITIS B CORE ANTIBODY (TOTAL) Routine 02/28/2019 7:24 EST documented in this encounter Results * HEPATITIS B CORE ANTIBODY (TOTAL) (02/28/2019 7:24 EST) Hepatitis B Core Ab, Total Negative Negative 02/28/2019 15:25 EST [facility] Blood VENOUS BLOOD / Unknown 02/28/2019 7:24 EST 02/28/2019 11:56 EST Provider Unknown MD CHEMISTRY & BLOOD GA S ORDERABLES [facility] [address] [place] [address] documented in this encounter Visit Diagnoses Not on filedocumented in this encounter Care Teams Drafter Mechanical Relationship Specialty Start Date End Date Jennifer Sr MD [address] [place] [address] PCP - General 12/03/18 08/29/22 Jacey Amador FNP [address] [facility] [address] [place] [id number] PCP - General Family Medicine - Primary Care 08/30/22 documented as of this encounter
--- OUTSIDE RECORDS SUMMARY | 2023-11-09 16:50 | XMS_ITS | Encounter Summary ---
Author Organization [facility] Address [address] [place] [address] Care Team Providers Care Supervisor In Circuit Testing Name Role Phone Obey Osborn APRN Primary Care Provider [phone] Reason for Visit * Reason Onset Date Comments Paperwork request 02/27/2018 Encounter Details Date Type Department Care Team ([facility] st Contact Info) Description 02/27/2018 Telephone [facility] Neurology - [address] [address] Robby Abraham MD [address] [place] [address] [address] [place] [phone] Paperwork request Social History Tobacco Use Types Packs/Day Years [...] encounter Miscellaneous Notes * Telephone Encounter - Collin Yañez - 02/27/2018 1639 EST Routed 01/14 NPV notes and 02/27 EMG notes to PCP office. Done. * Telephone Encounter - Collin Yañez - 02/27/2018 1638 EST ----- Message from Robby Abraham MD sent at 02/27/2018 14:26 EST ----- Please send this visit and her recent emg to her PCP. Thanks! documented in this encounter Plan of Treatment Not on file documented as of this encounter Visit Diagnoses Not on filedocumented in this encounter Care Teams Supervisor In Circuit Testing Relationship Specialty Start Date End Date Obey Osborn APRN [address] [place] [address] [address] [place] [address] PCP - General 08/29/17 10/10/18 documented as of this encounter
--- OUTSIDE RECORDS SUMMARY | 2023-11-09 16:50 | XMS_ITS | Encounter Summary ---
Author Organization [facility] Address [address] [place] [address] Care Team Providers Care Case Liner Name Role Phone Obey Osborn APRN Primary Care Provider [phone] Reason for Visit * Reason Onset Date Comments Appointment Related 01/15/2018 Encounter Details Date Type Department Care Team ([facility] Contact Info) Description 01/15/2018 Telephone [facility] Neurophysiology - [address] [address] Robby Abraham MD [address] [place] [address] [address] [place] [phone] Appointment Related Social History Tobacco Use Types [...] * Telephone Encounter - Aydee Pisano - 02/20/2018 6886 EST Spoke to Aydee and reschedule her follow up with Dr. Abraham to 03/04/18 at 11 AM... Her EMG is scheduled for 02/27 - * Telephone Encounter - Aydee Pisano - 01/15/2018 1433 EDT Aydee called to schedule FUR after EMG 04/08/18 @ 1PM, added to cancellation list as well. * Telephone Encounter - Magdy Lawson - 01/15/2018 1431 EDT Patient called to schedule EMG. Scheduled for 02/27. Patient also asked to update Dr. Abraham with medication information they did not have available during initial appointment. Patient stated taking Amitriptyline hcl 25mg 1x daily by mouth. documented in this encounter Plan of Treatment Not on file documented as of this encounter Visit Diagnoses Not on filedocumented in this encounter Care Teams Case Liner Relationship Specialty Start Date End Date Obey Osborn APRN [address] [place] [address] [address] [place] [address] PCP - General 08/29/17 10/10/18 documented as of this encounter
--- OUTSIDE RECORDS SUMMARY | 2023-11-09 16:50 | XMS_ITS | Encounter Summary ---
Author Organization [facility] Address [address] [place] [id number] Care Team Providers Care Clinical Statistics Manager Name Role Phone Jennifer Sr MD Primary Care Provider [phone] Reason for Visit * Reason Comments Follow-up Results discuss lab results/ lab draw Encounter Details Date Type Department Care Team ([facility] st Contact Info) Description 12/17/2018 8:00 EDT Office Visit [facility] Rheumatology & Immunology - [address] [id number] Carl Flood Chi, MD [address] [place] [address], [address] [place] [address] Small fiber neuropathy (Primary Dx); Paresthesia of both feet; Positive ADRIANA (antinuclear antibody); Thoracolumbar back pain; Malaise and fatigue Discharge Disposition: Auto Discharge Social History Tobacco [...] Sign Reading Time Taken Comments Blood Pressure 150/70 12/17/2018 0749 EDT Pulse 73 12/17/2018 0749 EDT Temperature - - Respiratory Rate - - Oxygen Saturation - - Inhaled Oxygen Concentration - - Weight 102.5 kg (226 lb) 12/17/2018 0749 EDT Height 160.7 cm (5' 3.25) 12/17/2018 0749 EDT Body Mass Index 39.72 12/17/2018 0749 EDT documented in this encounter [...] as of this encounter Discharge Diagnoses Diagnosis G62.9 Polyneuropathy, unspecified-G62.9[ICD-10-CM] R20.2 Paresthesia of skin-R20.2[ICD-10-CM] R76.8 Other specified abnormal immunological findings in serum-R76.8[ICD-10-CM] documented in this encounter Patient Instructions * Patient Instructions* Carl Flood Chi, MD, MD - 12/17/2018 8:00 EDT Continue current meds. documented in this encounter Discharge Disposition Disposition Code Departure Means Destination Auto Discharge documented in this encounter Progress Notes * Carl Flood Chi, MD, MD - 12/17/2018 0800 EDT Images from the original note were not included. Subjective: Patient ID: Aydee Johns is an 53 y.o. female. Chief Complaint Patient presents with ??? Follow-up ??? Results discuss lab results/ lab draw Positive ADRIANA (antinuclear antibody) Malar rash Lumbar spine pain Pain in thoracic spine Paresthesia of both feet Last seen 2017 for + ADRIANA, arthralgias. She has burning pains to the knees- with ncv showing neuropathy. Feels her head is heavy all the time (which prednisone helps), has poor memory and word findingdifficulties. Was told she has been prediabetic since the . Gets intermittent paresthesias over half of her face with the headache on average every other day. Neuro has been diagnosing migraine as the cause of her symptoms. [place] [facility] [place], which [facility] neurology does not agree with. Has ongoing low back. Gabapentin helps some. Hips are sore all day. Denies any other joint pains or swelling. 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 Walking is too painful on the feet. She would like to return to work. Patient Active Problem List Diagnosis ??? Smoker ??? Ibrahim's palsy ??? Obstructive sleep apnea syndrome Past Medical History: Diagnosis Date ??? Angina at rest (HCC-CMS) ??? Chronic back pain ??? Chronic neck pain ??? DDD (degenerative disc disease), thoracolumbar ??? Degenerative joint disease ??? Diarrhea ??? Headache(784.0) ??? Hyperlipidemia ??? SOB (shortness of breath) Past Surgical History: Procedure Laterality Date ??? APPENDECTOMY 2008 ??? CHOLECYSTECTOMY 1997 ??? COLECTOMY 1999 diverticulitis Outpatient Medications Marked as Taking for the 12/17/18 encounter (Office Visit) with Carl Flood Chi, MD Medication Sig Dispense Refill ??? albuterol sulfate [...] OMEGA 3-6-9 ORAL) Take by mouth. ??? ranitidine (ZANTAC) 150 mg tablet Take 150 mg by mouth daily. ??? riboflavin, vitamin B2, (VITAMIN B-2 ORAL) Take by mouth. ??? UNABLE TO FIND Med Name: mineral 650 ??? UNABLE TO FIND Med Name: lipotrienols ??? UNABLE TO FIND Med Name: rhizinate ??? VALACYCLOVIR HCL (VALTREX ORAL) Take 1 Tab by mouth as needed. ROS - See HPI I reviewed the 10 point ROS performed by the nurse which is as documented in Prism. Objective: BP (!) 150/70 Pulse 73 Ht 160.7 cm (63.25) Wt (!) 102.5 kg (226 lb) BMI 39.72 kg/m?? Physical Exam Constitutional: She is oriented to person, place, and time. She appears well- developed and well-nourished. No distress. heavy set middle-aged female HENT: Head: Normocephalic and atraumatic. Mouth/Throat: No oropharyngeal exudate. Eyes: Pupils are equal, round, and reactive to light. EOM are normal. Neck: No thyromegaly present. Cardiovascular: Normal rate, regular rhythm and normal heart sounds. Pulmonary/Chest: Effort normal and breath sounds normal. Abdominal: Soft. She exhibits no mass. There is no tenderness. obese Musculoskeletal: a complete musculoskeletal exam of the upper and lower extremities was performed and was normal except for findings shown on the homonculus: Lymphadenopathy: She has no cervical adenopathy. Neurological: She is alert and oriented to person, place, and time. No cranial nerve deficit. Gait (antalgic, with cane) abnormal. Skin: No rash noted. Psychiatric: She has a normal mood and affect. Her behavior is normal. Vitals reviewed. 12/03/2018: TSH 0.61 Vitamin B12 678 10/23/2016: ADRIANA 320, speckled C4 40 dsDNA negative RF negative Agee, GELATIN MAKER UTILITY negative SSA, SSB negative Thyroid antibodies negative RAPID3 SCORES AND INTERPRETATION 12/17/2018 Functional Status 3.7 Pain Tolerance 8 Global Estimate 10 - Very Poorly RAPID3 21.7 Interpretation High Assessment: 1. Small fiber neuropathy CANCELED: RHEUMATOID FACTOR 2. Paresthesia of both feet CANCELED: RHEUMATOID FACTOR 3. Positive ADRIANA (antinuclear antibody) ANTI DNA (DOUBLE STRAND) ANCA, IFA ANGIOTENSIN CONVERTING ENZYME (LESLI) SM (AGEE) ANTIBODY ARTHRITIS 1 COMPLETE BLOOD COUNT AND DIFFERENTIAL COMPREHENSIVE METABOLIC PANEL (CMP) CK CCP ANTIBODIES C REACTIVE PROTEIN SPEP, INCLUDES QUANTITATION OF MONOCLONAL SPIKE SSA ANTIBODIES BY ALMA ROSA GELATIN MAKER UTILITY ANTIBODIES BY ALMA ROSA SSB ANTIBODIES BY ALMA ROSA TSH SED. RATE:WESTERGREN THYROID ANTIBODIES UA, CHEMICAL AND SEDIMENT ANALYSIS (DIPSTICK AND MICROSCOPIC) OUTPATIENT ADD-ON CANCELED: RHEUMATOID FACTOR 4. Thoracolumbar back pain CANCELED: RHEUMATOID FACTOR 5. Malaise and fatigue TSH THYROID ANTIBODIES Plan: Small fiber neuropathy with chronic painful paresthesias in both feet- Patient has great difficulty weightbearing due to the discomfort. She has not been able to work. Etiology unclear. Despite history of + ADRIANA, no underlying autoimmune entity has been identified. Work-up of the + ADRIANA in 2017 was negative. We will repeat the serologies. Continue gabapentin which helps decrease her pain slightly. Neurology has not offered many other recommendations. Thoracolumbar back pain- Chronic and most likely due to early osteoarthritis. Chronic fatigue- Screen for thyroid dysfunction, thyroiditis which can be associated with + ADRIANA. Barriers to learning identified: No Patient verbalizes understanding and agrees with plan Yes Return if symptoms worsen or fail to improve. We will be in touch regarding her test results. (Portions of this document may have been prepared with speech recognition software or keyboard dataentry techniques. Minor irregularities or keyboarding misprints may be present.) Carl Flood MD * Eveline Schwartz - 12/17/2018 0800 EDT REVIEW OF SYSTEMS: Yes No Yes No Fever X Joint pain x Weight gain or loss pounds (lbs) Duration of AM joint stiffness hours Eye pain or dryness x Numbness/tingling x Mouth or nose sores X Heart burn / Nausea x Chest pain X Diarrhea x Shortness of Breath x Blood in stool X Cough X Burning on urination X Skin rash X Hand/Foot color change in cold X Are our immunization records accurate per patient report? (i.e. influenza, pneumococcal, shingles) Yes No If no, note change(s) below and update record documented in this encounter Plan of Treatment Not on file documented as of this encounter Procedures Procedure Name Priority Date/Time Associated Diagnosis Comments PATHOLOGY - SCANNED 12/18/2018 1 2:00 EDT OUTPATIENT ADD-ON Routine 12/17/2018 18: 06 EDT Positive ADRIANA (antinuclear antibody) OUTPATIENT ADD-ON Routine 12/17/2018 17: 17 EDT Positive ADRIANA (antinuclear antibody) documented in this encounter Results * PATHOLOGY - SCANNED (12/18/2018 12:00 EDT) 12/18/2018 12:0 0 EDT Scan 2 [facility] LAB INFO SERVICE AN D SUPPORT & PHONE RESULT * OUTPATIENT ADD-ON (12/17/2018 18:06 EDT) Tests to be added CANCEL RHEUMATOID FACTOR REQUEST PLACED EARLIER, ORDER ALREADY IN FOR ARTHRITIS 1 PROFILE WHICH HAS THE RHEUMATOID FACTOR. 12/17/2018 18:06 EDT [facility] Diagnosis Code SEE EPIC, DOS 9.10.19 12/17/2018 18:12 EDT [facility] Number for problems 7 12/17/2018 18:06 EDT [facility] Comment:[id number] Accession number DUPLICATION OF REQUEST 12/17/2018 18:12 EDT [facility] Acknowledge ABP Done 9 18:12 EDT [facility] BLOOD SPECIMEN / Unknown 12/17/2018 18:06 EDT 12/17/2018 18:11 EDT Carl Flood MD HEMATOLOGY & PF4 ORD ERABLES [facility] [address] [place] [address] * OUTPATIENT ADD-ON (12/17/2018 17:17 EDT) Tests to be added RHEUMATOID FACTOR 12/17/2018 17:17 EDT [facility] Diagnosis Code SEE EPIC, DOS 9.10.19 12/17/2018 17:44 EDT [facility] Number for problems 7 12/17/2018 17:17 EDT [facility] Comment:[id number] Accession number DUPLICATION OF REQUEST IN ARTHRITIS PANEL 1 12/17/2018 18:14 EDT [facility] Comment:Corrected on 12/17 A T 1814: Previously reported as RFS TO [id number] Acknowledge ABP Done 9 18:14 EDT [facility] BLOOD SPECIMEN / Unknown 12/17/2018 17:17 EDT 12/17/2018 17:43 EDT Carl Flood MD HEMATOLOGY & PF4 ORD ERABLES [facility] [address] [place] [address] * UA, CHEMICAL AND SEDIMENT ANALYSIS (DIPSTICK AND MICROSCOPIC) (12/17/2018 9:02 EDT) Color, UA Yellow 12/17/2018 9:42 [facility] Clarity, UA Clear 12/17/2018 9:42 [facility] Glucose, UA Neg Neg 12/17/2018 9:42 [facility] Bilirubin, UA Neg Neg 12/17/2018 9:42 [facility] Ketones, UA Neg Neg 12/17/2018 9:42 [facility] Refractometer SG,Urine 1.020 1.001 - 1.035 12/17/2018 9:42 [facility] Blood, UA Neg Neg 12/17/2018 9:42 [facility] pH, UA 5.0 4.6 - 8.0 12/17/2018 9:42 [facility] Protein, UA Neg Neg 12/17/2018 9:42 [facility] Urobilinogen, UA Normal Normal E.U./dl 12/17/2018 9:42 [facility] Nitrite, UA Neg Neg 12/17/2018 9:42 [facility] Leuk Esterase Neg Neg 12/17/2018 9:42 [facility] UA Method Used 12/17/2018 8:51 [facility] Comment: Testing performed using [employer]. Urine RBC Count Automated 0 to 2 0 to 2 /HPF 12/17/2018 9:42 [facility] Urine WBC Count Automated 0 to 3 0 to 3 /HPF 12/17/2018 9:42 [facility] Urine Squamous Epithelial Cell Count, Automated None seen None seen /LPF 12/17/2018 9:42 [facility] Urine Hyaline Casts, Automated < or = 10 < or = 10 /LPF 12/17/2018 9:42 [facility] Urine Bacteria Count, Automated None seen None seen 12/17/2018 9:42 EDT [facility] UA Comment Sediment results 12/17/2018 9:42 EDT [facility] Comment: are unreliable on urines unrefrig >2hrs or refrig >8hrs. Urine specimen (specimen) URINE / Unknown 12/17/2018 9:02 EDT 12/17/2018 9:30 EDT Narrative Authorizing Provider Result Charly Flood MD URINALYSIS ORDERABLE S Performing Organization Address [email or web address]] de Phone Number [facility] [address] [place] [address] * THYROID ANTIBODIES (12/17/2018 9:02 EDT) Thyroglobulin Ab 19 <61 U/mL 12/18/19 19 12:20 EDT [facility] Thyroperoxidase Ab 44 <61 U/mL 2018 13:08 EDT [facility] Blood specimen (specimen) BLOOD SPECIMEN / Unknown 12/17/2018 9:02 EDT 12/17/2018 10:10 EDT Narrative Authorizing Provider Result Charly Flood MD CHEMISTRY & BLOOD GA S ORDERABLES Performing Organization Address [facility] [[email or web address]] de Phone Number [facility] [address] [place] [address] * SED. RATE:WESTERGREN (12/17/2018 9:02 EDT) Sed. Rate Westergren 5 0 - 30 mm/hr 12/17/2018 10:21 EDT [facility] Blood specimen (specimen) BLOOD SPECIMEN / Unknown 12/17/2018 9:02 EDT 12/17/2018 10:10 EDT Narrative Authorizing Provider Result Charly Flood MD HEMATOLOGY & PF4 ORD ERABLES Performing Organization Address [facility] Co de Phone Number [facility] [address] [place] [address] * TSH (12/17/2018 9:02 EDT) TSH 1.46 0.47 - 4.68 uIU/ml 12/17/2018 12:19 EDT [facility] Comment: The results of this assay can be falsely lowered due to the consumption of Biotin. Blood specimen (specimen) BLOOD SPECIMEN / Unknown 12/17/2018 9:02 EDT 12/17/2018 10:10 EDT Narrative Authorizing Provider Result Charly Flood MD CHEMISTRY & BLOOD GA S ORDERABLES Performing Organization Address [facility] [[email or web address]] de Phone Number [facility] [address] [place] [address] * SSB ANTIBODIES BY ALMA ROSA (12/17/2018 9:02 EDT) SSB Antibody 3.0 <20 Units 12/19/2018 13:07 EDT [facility] Comment: Negative: <20 Units Weak [...] AND SEROL OGY ORDERABLES Performing Organization Address [facility] [[email or web address]] de Phone Number [facility] [address] [place] [address] * GELATIN MAKER UTILITY ANTIBODIES BY ALMA ROSA (12/17/2018 9:02 EDT) GELATIN MAKER UTILITY Antibody 1.7 <20 Units 12/19/2018 13:07 EDT [facility] Comment: Negative: <20 Units Weak Positive: 20 - 39 Units Moderate Positive: 40 - 80 Units Strong Positive: >80 Units Results were obtained with the [employer] QUANTA Lite GELATIN MAKER UTILITY ALMA ROSA. GELATIN MAKER UTILITY Values obtained with different manufacturers' assay methods may not be used interchangeably. The magnitude of the reported IgG levels cannot be correlated to an endpoint titer. A positive result in the QUANTA Lite GELATIN MAKER UTILITY ALMA ROSA indicates the presence of antibodies reactive with the GELATIN MAKER UTILITY/Sm complex but cannot distinguish between anti-Sm and anti-GELATIN MAKER UTILITY activity. Blood specimen (specimen) BLOOD SPECIMEN / Unknown 12/17/2018 9:02 EDT 12/17/2018 10:10 EDT Carl Flood MD IMMUNOLOGY AND SEROL OGY ORDERABLES Performing Organization Address [facility] [[email or web address]] de Phone Number [facility] [address] [place] [address] * SSA ANTIBODIES BY ALMA ROSA (12/17/2018 9:02 EDT) SSA Antibody 3.2 <20 Units 12/19/2018 13:07 EDT [facility] Comment: Negative: <20 Units Weak Positive: 20 - 39 Units Moderate Positive: 40 - 80 Units Strong Positive: >80 Units Results were obtained with the [employer] QUANTA Lite SS-A ALMA ROSA. SS-A values obtained with different manufacturers' assay methods may not be used interchangeably. The magnitude of the reported IgG levels cannot be correlated to an endpoint titer. Blood specimen (specimen) BLOOD SPECIMEN / Unknown 12/17/2018 9:02 EDT 12/17/2018 10:10 EDT Carl Flood MD IMMUNOLOGY AND SEROL OGY ORDERABLES Performing Organization Address [facility] [[email or web address]] de Phone Number [facility] [address] [place] [address] * SPEP, INCLUDES QUANTITATION OF MONOCLONAL SPIKE (12/17/2018 9:02 EDT) Total Protein 7.0 6.3 - 8.2 g/dl 12/17/2018 11:49 EDT [facility] Albumin % 63.3 55.8 - 66.1 % 12/18/2018 14:11 EDT [facility] Alpha-1 % 3.6 2.9 - 4.9 % 12/18/2018 14:11 EDT [facility] Alpha-2 % 10.1 7.1 - 11.8 % 12/18/2018 14:11 EDT [facility] Beta % 11.4 8.4 - 13.1 % 12/18/2018 14:11 EDT [facility] Gamma % 11.6 11.1 - 18.8 % 12/18/2018 14:11 EDT [facility] Comments 12/18/2018 14:11 EDT [facility] Comment: No apparent monoclonal protein on serum electrophoresis. See Pathology Scanned Report in EPIC. Blood specimen (specimen) BLOOD SPECIMEN / Unknown 12/17/2018 9:02 EDT 12/17/2018 10:10 EDT Narrative Authorizing Provider Result Charly Flood MD CHEMISTRY & BLOOD GA S ORDERABLES Performing Organization Address [facility] Co de Phone Number [facility] [address] [place] [address] * (ABNORMAL) C REACTIVE PROTEIN (12/17/2018 9:02 EDT) C Reactive Protein 11.4(H) <10.0 mg/L 12/17/2018 12:00 EDT [facility] Blood specimen (specimen) BLOOD SPECIMEN / Unknown 12/17/2018 9:02 EDT 12/17/2018 10:10 EDT Narrative Authorizing Provider Result Charly Flood MD CHEMISTRY & BLOOD GA S ORDERABLES Performing Organization Address City/[facility] Co de Phone Number [facility] [address] [place] [address] * CCP ANTIBODIES (12/17/2018 9:02 EDT) CCP Antibodies <2.5 <5.0 U/mL 12/17/2018 13:18 EDT [facility] BLOOD SPECIMEN / Unknown 12/17/2018 9:02 EDT 12/17/2018 10:10 EDT Narrative Authorizing Provider Result Charly Flood MD IMMUNOLOGY AND SEROL OGY ORDERABLES Performing Organization Address City/[facility]/ZIP Co de Phone Number [facility] [address] [place] [address] * CK (12/17/2018 9:02 EDT) CK 55 30 - 135 U/L 12/17/2018 11:49 [facility] Blood specimen (specimen) BLOOD SPECIMEN / Unknown 12/17/2018 9:02 EDT 12/17/2018 10:10 EDT Carl Flood MD CHEMISTRY & BLOOD GA S ORDERABLES [facility] [address] [place] [address] * (ABNORMAL) COMPREHENSIVE METABOLIC PANEL (CMP) (12/17/2018 9:02 EDT) Potassium 3.9 3.5 - 5.0 mEq/L 12/17/2018 12:00 [facility] Sodium 141 136 - 145 mEq/L 12/17/2018 12:00 [facility] Chloride 103 96 - 110 mEq/L 12/17/2018 12:00 [facility] CO2 29 22 - 32 mEq/L 12/17/2018 12:00 [facility] Total Alkaline Phosphatase 56 38 - 126 U/L 12/17/2018 12:00 [facility] Bilirubin, Total <0.5 <1.4 mg/dl 12/18/19 19 12:00 [facility] AST 20 15 - 46 U/L 12/17/2018 12:00 [facility] ALT 18 <34 U/L 12/17/2018 12:00 [facility] Albumin 4.4 3.4 - 4.9 g/dl 12/17/2018 12:00 [facility] Total Protein 7.2 6.3 - 8.2 g/dl 12/17/2018 12:00 [facility] Creatinine 0.59 0.52 - 1.04 mg/dl 12/17/2018 12:00 [facility] GFR, Calculated 104 >60 ml/min/1.7 3m2 12/17/2018 12:00 [facility] Comment: eGFR calculated using CKD-EPI equation for non Americans. Multiply eGFR by 1.16 for Americans. BUN 7(L) 10 - 26 mg/dl 12/17/2018 12:00 [facility] Calcium 10.1 8.5 - 10.5 mg/dl 12/17/2018 12:00 [facility] Calculated Calcium 9.8 8.5 - 10.5 mg/dl 12/17/2018 12:00 [facility] Glucose, Serum 98 70 - 100 mg/dl 12/17/2018 12:00 [facility] Fasting? No 12/17/2018 8:55 [facility] Blood specimen (specimen) BLOOD SPECIMEN / Unknown 12/17/2018 9:02 EDT 12/17/2018 10:10 EDT Carl Flood MD CHEMISTRY & BLOOD GA S ORDERABLES Performing Organization Address City/State/[facility] Co de Phone Number [facility] [address] [place] [address] * (ABNORMAL) COMPLETE BLOOD COUNT AND DIFFERENTIAL (12/17/2018 9:02 EDT) WBC 8.88 4.0 - 12.4 K/cmm 12/17/2018 10:22 [facility] RBC 4.31 3.86 - 5.04 M/cmm 12/17/2018 10:22 [facility] Hemoglobin 13.8 11.6 - 15.2 gm/dl 12/17/2018 10:22 [facility] HCT 40.6 34.9 - 44.4 % 12/17/2018 10:22 [facility] MCV 94 81 - 98 fl 12/17/2018 10:22 [facility] MCH 32.0 26.7 - 33.3 pg 12/17/2018 10:22 [facility] MCHC 34.0 32.1 - 35.9 gm/dl 12/17/2018 10:22 [facility] RDW-CV 11.9 <14.7 % 12/17/2018 10:22 [facility] RDW-SD 41.2 <50.4 fl 12/17/2018 10:22 [facility] PLT 316 141 - 377 K/cmm 12/17/2018 10:22 [facility] MPV 9.5 9.5 - 12.7 fl 12/17/2018 10:22 [facility] % Neutrophils 50.4 % 12/17/2018 10:22 [facility] % Lymphocytes 38.3 % 12/17/2018 10:22 [facility] % Monocytes 7.0 % 12/17/2018 10:22 [facility] % Eosinophils 3.5 % 12/17/2018 10:22 [facility] % Basophils 0.6 % 12/17/2018 10:22 [facility] % Immature Grans 0.2 % 12/17/2018 10:22 [facility] ABS Neutrophils 4.48 2.20 - 8.85 K/cmm 12/17/2018 10:22 [facility] ABS Lymphs 3.40(H) 1.09 - 3.30 K/cmm 12/17/2018 10:22 [facility] ABS Monocytes 0.62 0.1 - 0.8 K/cmm 12/17/2018 10:22 [facility] ABS Eosinophils 0.31 0.03 - 0.61 K/cmm 12/17/2018 10:22 [facility] ABS Basophils 0.05 0.01 - 0.11 K/cmm 12/17/2018 10:22 [facility] ABS Immature Grans 0.02 0 - 0.06 K/cmm 12/17/2018 10:22 [facility] Type of Diff: Automated 12/17/2018 10:22 [facility] Blood specimen (specimen) BLOOD SPECIMEN / Unknown 12/17/2018 9:02 EDT 12/17/2018 10:10 EDT Carl Flood MD PACKAGES & DNA PROBE ORDERABLES Performing Organization Address City/State/[facility] Co de Phone Number [facility] [address] [place] [address] * (ABNORMAL) ARTHRITIS 1 (12/17/2018 9:02 EDT) Rheumatoid Factor 11 <12.5 IU/mL 2018 12:47 EDT [facility] [facility] ADRIANA Interpretation Positive(A) Negative 12/18/2018 14:19 EDT [facility] Comment: For titers greater than [...] ADRIANA Titer Pattern 1:320 Homogeneous 12/18/2018 14:19 EDT [facility] Blood specimen (specimen) BLOOD SPECIMEN / Unknown 12/17/2018 9:02 EDT 12/17/2018 10:10 EDT Carl Flood MD IMMUNOLOGY AND SEROL OGY ORDERABLES Performing Organization Address [facility] [[email or web address]] de Phone Number [facility] [address] [place] [address] * SM (AGEE) ANTIBODY (12/17/2018 9:02 EDT) Pathologist [facility] Sm (Agee) Antibody 1.8 <20 Units 12/19/2018 13:07 EDT [facility] Comment: Negative: <20 Units Weak Positive: 20 - 39 Units Moderate Positive: 40 - 80 Units Strong Positive: >80 Units Results were obtained with the [employer] QUANTA Lite Sm ALMA ROSA. Sm values obtained with different manufacturers' assay methods may not be used interchangeably. The magnitude of the reported IgG levels cannot be correlated to an endpoint titer. Blood specimen (specimen) BLOOD SPECIMEN / Unknown 12/17/2018 9:02 EDT 12/17/2018 10:10 EDT Narrative Authorizing Provider Result Charly Flood MD IMMUNOLOGY AND SEROL OGY ORDERABLES Performing Organization Address [facility] Co de Phone Number [facility] [address] [place] [address] * ANGIOTENSIN CONVERTING ENZYME (LESLI) (12/17/2018 9:02 EDT) Angiotensin Converting Enzyme 32 16 - 85 U/L 12/19/2018 8:10 EDT [facility] Comment: Performed or Referred by: [facility], [address] [place] [address] Blood specimen (specimen) BLOOD SPECIMEN / Unknown 12/17/2018 9:02 EDT 12/17/2018 10:10 EDT Narrative Authorizing Provider Result Charly Flood MD CHEMISTRY & BLOOD GA S ORDERABLES Performing Organization Address [facility] de Phone Number [facility] [address] [place] [address] * ANCA, IFA (12/17/2018 9:02 EDT) [facility] ANCA Interpretation Negative Negative 12/18/2018 14:19 EDT [facility] Comment: ADRIANA Positive, suggest follow-up [...] AND SEROL OGY ORDERABLES Performing Organization Address [facility] Co de Phone Number [facility] [address] [place] [address] * ANTI DNA (DOUBLE STRAND) (12/17/2018 9:02 EDT) Pathologist [facility] Anti DNA (DS) <12.3 <30 IU/mL 12/19/2018 14:51 EDT [facility] Comment:Results were obtaine d with the [employer] QUANTA Lite dsDNA SC ALMA ROSA assay. Blood specimen (specimen) BLOOD SPECIMEN / Unknown 12/17/2018 9:02 EDT 12/17/2018 10:10 EDT Carl Flood MD IMMUNOLOGY AND MARY LOU BREAUX ORDERABLES [facility] [address] [place] [address] documented in this encounter Visit Diagnoses Diagnosis Small fiber neuropathy- Primary Unspecified hereditary and idiopathic peripheral neuropathy Paresthesia of both feet Positive ADRIANA (antinuclear antibody) Other and unspecified nonspecific immunological findings Thoracolumbar back pain Backache, unspecified Malaise and fatigue Other malaise and fatigue documented in this encounter Discontinued Medications Medication Sig Discontinue Reason Start Date End Da te amitriptyline (ELAVIL) 25 mg tablet Take 25 mg by mouth daily. Therapy completed 12/17/2018 Ginkgo Biloba 120 mg tablet Take by mouth. Therapy completed 12/17/2018 documented as of this encounter Care Teams Clinical Statistics Manager Relationship Specialty Start Date End Date Jennifer Sr MD [address], [address] [address] PCP - General 12/03/18 08/29/22 documented as of this encounter
--- OUTSIDE RECORDS SUMMARY | 2023-11-09 16:50 | XMS_ITS | Encounter Summary ---
Author Organization Health system Address [address] [place] [address] Care Team Providers Care Concrete Form Setter And Finisher Name Role Phone Obey Osborn APRN Primary Care Provider [phone] Encounter Details Date Type Department Care Team ([facility] st Contact Info) Description 08/31/2017 Orders Only [facility] Vascular Surgery - [address] [address] Macho Fernandez MD [address] [place] [address], [address] [place] [id number] Pain in both lower extremities (Primary Dx) Social History Tobacco Use Types [...] Yes 08/29/2017 documented as of this encounter Plan of Treatment Not on file documented as of this encounter Procedures Procedure Name Priority Date/Time Associated Diagnosis Comments VL LOWER ARTERIAL DUPLEX BILATERAL Routine 10/09/2017 13:54 EDT documented in this encounter Results * VL LOWER ARTERIAL DUPLEX BILATERAL (10/09/2017 13:54 EDT) Anatomical Region Laterality Modality Other 10/09/2017 13:5 4 EDT Narrative 10/11/2017 11:01 EDT Vascular Diagnostic Laboratory [facility], [facility] [address] [place] [address] Technologist: Justin Arora Fellow: IMPRESSIONS 1. No evidence of hemodynamically significant disease bilaterally. 2. Patient not exercised due to poor gait. PROCEDURE: Bilateral lower extremity arterial ultrasound; common femoral, proximal profunda femoral, femoral, popliteal, anterior tibial, posterior tibial, peroneal and dorsalis pedis are routinely examined. ? 2D ultrasound, color flow Doppler, spectral Doppler, pulse volume recording, and ankle-brachial index. INDICATION: Claudication. HISTORY: RISK FACTORS: Current tobacco use. Right brachial systolic: 116mm Hg: Left brachial systolic: 121mm Hg 121 SEGMENTAL PRESSURES AND PVR: + +--------+ + + Location ? Pressure Brachial index PVR waveform + +--------+ + + Right DP ? 144mm Hg 1.19 ? Normal ? + +--------+ + + Right PT ? 149mm Hg 1.23 ? + +--------+ + + Right Hallux 113mm Hg 0.93 ? Normal ? + +--------+ + + Left DP ? 152mm Hg 1.26 ? Normal ? + +--------+ + + Left PT ? 128mm Hg 1.06 ? + +--------+ + + Left Hallux 115mm Hg 0.95 ? Normal ? + +--------+ + + * DOPPLER FINDINGS: + +-------+ + Location ? V sys ?? Flow analysis + +-------+ + Right ENGINEER GEOPHYSICAL LABORATORY ? 88cm/s ? + +-------+ + Right PFA ? 62cm/s ? + +-------+ + Right SFA - prox 108cm/s ? + +-------+ + Right SFA - mid 88cm/s ? + +-------+ + Right SFA - dist 75cm/s ? + +-------+ + Right POP-ak ? 65cm/s ? + +-------+ + Right POP ? 80cm/s ? + +-------+ + Right BUSINESS DEVELOPMENT MANAGER ? Triphasic ? + +-------+ + Right DPA ? Triphasic ? + +-------+ + Left ENGINEER GEOPHYSICAL LABORATORY ? 74cm/s ? + +-------+ + Left PFA ? 73cm/s ? + +-------+ + Left SFA - prox 145cm/s ? + +-------+ + Left SFA - mid ?? 114cm/s ? + +-------+ + Left SFA - dist 77cm/s ? + +-------+ + Left POP-ak ? 49cm/s ? + +-------+ + Left POP ? 84cm/s ? + +-------+ + Left BUSINESS DEVELOPMENT MANAGER ? Triphasic ? + +-------+ + Left DPA ? Triphasic ? + +-------+ + * Electronically signed by: Macho Fernandez 10/11/2017 11:01 Procedure Note Macho Fernandez MD - 10/11/2017 Vascular Diagnostic Laboratory [facility], Level [address] [place] [address] Technologist: Justin Arora Fellow: IMPRESSIONS 1. No evidence of hemodynamically significant disease bilaterally. 2. Patient not exercised due to poor gait. PROCEDURE: Bilateral lower extremity arterial ultrasound; common femoral, proximal profunda femoral, femoral, popliteal, anterior tibial, posterior tibial, peroneal and dorsalis pedis are routinely examined. 2D ultrasound, color flow Doppler, spectral Doppler, pulse volume recording, and ankle-brachial index. INDICATION: Claudication. HISTORY: RISK FACTORS: Current tobacco use. Right brachial systolic: 116mm Hg: Left brachial systolic: 121mm Hg 121 SEGMENTAL PRESSURES AND PVR: + +--------+ + + Location Pressure Brachial index PVR waveform + +--------+ + + Right DP 144mm Hg 1.19 Normal + +--------+ + + Right PT 149mm Hg 1.23 + +--------+ + + Right Hallux 113mm Hg 0.93 Normal + +--------+ + + Left DP 152mm Hg 1.26 Normal + +--------+ + + Left PT 128mm Hg 1.06 + +--------+ + + Left Hallux 115mm Hg 0.95 Normal + +--------+ + + * DOPPLER FINDINGS: + +-------+ + Location V sys Flow analysis + +-------+ + Right ENGINEER GEOPHYSICAL LABORATORY 88cm/s + +-------+ + Right PFA 62cm/s + +-------+ + Right SFA - prox 108cm/s + +-------+ + Right SFA - mid 88cm/s + +-------+ + Right SFA - dist 75cm/s + +-------+ + Right POP-ak 65cm/s + +-------+ + Right POP 80cm/s + +-------+ + Right BUSINESS DEVELOPMENT MANAGER Triphasic + +-------+ + Right DPA Triphasic + +-------+ + Left ENGINEER GEOPHYSICAL LABORATORY 74cm/s + +-------+ + Left PFA 73cm/s + +-------+ + Left SFA - prox 145cm/s + +-------+ + Left SFA - mid 114cm/s + +-------+ + Left SFA - dist 77cm/s + +-------+ + Left POP-ak 49cm/s + +-------+ + Left POP 84cm/s + +-------+ + Left BUSINESS DEVELOPMENT MANAGER Triphasic + +-------+ + Left DPA Triphasic + +-------+ + * Electronically signed by: Macho Fernandez 10/11/2017 11:01 Macho Fernandez MD IM US VASCULAR O RDERABLES documented in this encounter Visit Diagnoses Diagnosis Pain in both lower extremities- Primary documented in this encounter Care Teams Concrete Form Setter And Finisher Relationship Specialty Start Date End Date Obey Osborn APRN [address] [place] [address] [address] [place] [address] PCP - General 08/29/17 10/10/18 documented as of this encounter
--- OUTSIDE RECORDS SUMMARY | 2023-11-09 16:50 | XMS_ITS | Encounter Summary ---
Author Organization [facility] Address [address] [place] [address] Care Team Providers Care Guest Relations Representative Name Role Phone Obey Osborn APRN Primary Care Provider [phone] Encounter Details Date Type Department Care Team ([facility] Contact Info) Description 09/04/2017 Results Only Imaging [facility] [phone] Unknown, Provider, Social History Tobacco Use Types [...] /Time OUTSIDE IMAGES - MR NEURO Imaging 09/04/2017 8:01 EDT OUTSIDE IMAGES - MR NEURO Imaging 09/04/2017 8:01 EDT documented as of this encounter Visit Diagnoses Not on filedocumented in this encounter Care Teams Guest Relations Representative Relationship Specialty Start Date End Date Obey Osborn APRN [address] [place] [address] [address] [place] [address] PCP - General 08/29/17 10/10/18 documented as of this encounter
--- OUTSIDE RECORDS SUMMARY | 2023-11-09 16:50 | XMS_ITS | Encounter Summary ---
Author Organization [facility] Address [address] [place] [address] Care Team Providers Care Portainer Operator Name Role Phone Obey Osborn APRN Primary Care Provider [phone] Encounter Details Date Type Department Care Team ([facility] st Contact Info) Description 06/10/2018 Orders Only [facility] Adult Neurology - [address] [address] Randall Corey MD [address] [place] [address] Other fatigue (Primary Dx) Social History Tobacco Use Types [...] of this encounter Visit Diagnoses Diagnosis Other fatigue- Primary documented in this encounter Care Teams Portainer Operator Relationship Specialty Start Date End Date Obey Osborn APRN [address] [place] [address] [address] [place] [address] PCP - General 08/29/17 10/10/18 documented as of this encounter
--- OUTSIDE RECORDS SUMMARY | 2023-11-09 16:50 | XMS_ITS | Encounter Summary ---
Author Organization [facility] Address [address] [place] [address] Care Team Providers Care Funding Coordinator Name Role Phone Jennifer Sr MD Primary Care Provider [phone] Encounter Details Date Type Department Care Team ([facility] st Contact Info) Description 12/03/2018 Phlebotomy Only [address] [address] Plywood Matcher, Outpatient Decline in verbal memory (Primary Dx) Social History Tobacco Use Types [...] Procedure Name Priority Date/Time Associated Diagnosis Comments TSH Routine 12/03/2018 15:45 EDT Decline in verbal memory VITAMIN B12 Routine 12/03/2018 15:45 EDT Decline in verbal memory documented in this encounter Results * VITAMIN B12 (12/03/2018 15:45 EDT) Vitamin B-12 678 211 - 911 pg/ml 12/04/2018 10:22 EDT [facility] Blood specimen (specimen) BLOOD SPECIMEN / Unknown 12/03/2018 15:45 EDT 12/03/2018 16:05 EDT Amy Agee MD CHEMISTRY & BLOOD GA S ORDERABLES Performing Organization Address [facility] Co de Phone Number [facility] [address] [place] [address] * TSH (12/03/2018 15:45 EDT) TSH 0.61 0.47 - 4.68 uIU/ml 12/03/2018 17:01 EDT [facility] Comment: The results of this assay can be falsely lowered due to the consumption of Biotin. Blood specimen (specimen) BLOOD SPECIMEN / Unknown 12/03/2018 15:45 EDT 12/03/2018 16:05 EDT Amy Agee MD CHEMISTRY & BLOOD GA S ORDERABLES Performing Organization Address [facility] Co de Phone Number [facility] [address] [place] [address] documented in this encounter Visit Diagnoses Diagnosis Decline in verbal memory- Primary documented in this encounter Care Teams Funding Coordinator Relationship Specialty Start Date End Date Jennifer Sr MD [address], [address] [address] PCP - General 12/03/18 08/29/22 documented as of this encounter
--- OUTSIDE RECORDS SUMMARY | 2023-11-09 16:50 | XMS_ITS | Encounter Summary ---
Author Organization [facility] Address [address] [place] [address] Care Team Providers Care Women Specialist Name Role Phone Jennifer Sr MD Primary Care Provider [phone] Encounter Details Date Type Department Care Team (Late st Contact Info) Description 12/24/2018 Documentation Visit [facility] Neurology - S [address] [id number] Robby Abraham MD [address] [place] [address] [address] [place] [address] Social History Tobacco Use Types [...] Progress Notes * Robby Abraham MD - 12/24/2018 0925 EDT Received a number of outside records today there is abdominal ultrasound from 1998 for right upper quadrant pain which was normal. DVT ultrasound from 2000 which showed no DVT. There is neurology consultation which is undated. 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 The assessment from this note felt that her symptoms are likely due to cervical radiculopathy and radial mononeuropathy but that carpal tunnel and brachial plexopathy were also considered the differential diagnosis. At that time she started methylprednisolone and gabapentin and encouraged to stretch. There is also aglucose level from 2004 that showed a slightly elevated glucose at 102. There is a note from [facility] pain clinic in August 2005 where she mentions her legs being numb and occasionally giving out the offer of the note Dr. Oswaldo Pearson explained that it is unclear to him why this is occurring. Finally there is a CRP from 2018 which is slightly elevated at 0.64. Of importance these labs show that there may have been prediabetes dating back as far as 2004. Not sure what to make of the slightly elevated CRP. Certainly these findings could support the idea thatprediabetes may have played a role in development of her neuropathy. documented in this encounter Plan of Treatment Not on file documented as of this encounter Visit Diagnoses Not on filedocumented in this encounter Care Teams Women Specialist Relationship Specialty Start Date End Date Jennifer Sr MD [address] [place] [address] PCP - General 12/03/18 08/29/22 documented as of this encounter
--- OUTSIDE RECORDS SUMMARY | 2023-11-09 16:50 | XMS_ITS | Encounter Summary ---
Author Organization [facility] Address [address] [place] [address] Care Team Providers Care Rn Labor And Delivery Name Role Phone Jennifer Sr MD Primary Care Provider [phone] Encounter Details Date Type Department Care Team (Late st Contact Info) Description 02/28/2019 Results Only [facility] Neurology - [address] [id number] Robby Abraham MD [address] [place] [address] [address] 2 [place] [address] Social History Tobacco Use Types [...] as of this encounter Miscellaneous Notes * Result Encounter Note - Robby Abraham MD - 02/28/2019 0916 EST Hep C, cryoglobulin, hep B, b1, b6Labs results were normal. If the patient does not have [employer] online, they will be notified by phone. Further plans can be discussed at the next scheduled visit. documented in this encounter Plan of Treatment Not on file documented as of this encounter Procedures Procedure Name Priority Date/Time Associated Diagnosis Comments HEPATITIS C AB W/REFLEX - [facility] Routine 02/28/2019 7:24 EST CRYOGLOBULIN, SERUM Routine 02/28/2019 7 :24 EST HEPATITIS B CORE ANTIBODY (TOTAL) Routine 02/28/2019 7:24 EST ZZVITAMIN B1, THIAMINE Routine 9 7:24 EST MISCELLANEOUS TEST, RUFUS Routine 02/28/2019 7:17 EST documented in this encounter Results * VITAMIN B1, THIAMINE (02/28/2019 7:24 EST) VITAMIN B1 (THIAMINE) - [facility] 145 70 - 180 nmol/L 03/04/2019 8:08 EST [facility] Comment: ADDITIONAL INFORMATION This test was developed and its performance characteristics determined by [facility] in a manner consistent with CLIA requirements. This test has not been cleared or approved by the U.S. Food and Drug Administration. Test Performed by: [facility] - [address] [address] Energy Projects Lead: Aime Craig M.D. Ph.D.; CLIA# [id number] 02/28/2019 7:24 EST 02/28/2019 7:24 EST Narrative [facility] - 03/04/2019 8:08 EST Does PT Have a Latex Allergy? NO ORDERED TESTS: RUFUS ID:PLP/MARC PINON Robby Abraham MD CHEMISTRY & BLOOD GA S ORDERABLES [facility] * HEPATITIS B CORE ANTIBODY (TOTAL) (02/28/2019 7:24 EST) Pathologist [facility] Hepatitis B Core Ab, Total Negative Negative 03/04/2019 8:08 EST [facility] Comment: Test performed [place] [address] 02/28/2019 7:24 EST 02/28/2019 7:24 EST Narrative [facility] - 03/04/2019 8:08 EST Does PT Have a Latex Allergy? NO ORDERED TESTS: VALDES ID:PLP/MARC PINON Robby Abraham MD CHEMISTRY & BLOOD GA S ORDERABLES Performing Organization Address [facility] Co de Phone Number [facility] * CRYOGLOBULIN, SERUM (02/28/2019 7:24 EST) [facility] CRYOGLOBULINS SCREEN [facility] Negative Negative %ppt 03/04/2019 8:08 EST [facility] Comment: This test is negative at 24 hours. All samples are held and reviewed again at 7 days. If delayed precipitation occurs after 7 days, Immunofixation will be performed and an additional report will follow. Test Performed by: [facility] [place] [address] Energy Projects Lead: Aime Craig M.D. Ph.D.; CLIA# [id number] 02/28/2019 7:24 EST 02/28/2019 7:24 EST Narrative [facility] - 03/04/2019 8:08 EST Does PT Have a Latex Allergy? NO ORDERED TESTS: VALDES ID:PLP/MARC PINON Robby Abraham MD CHEMISTRY & BLOOD GA S ORDERABLES [facility] * HEPATITIS C AB W/REFLEX - CV (02/28/2019 7:24 EST) HEPATITIS C AB W/REFLEX - [facility] Negative 02/28/2019 9:16 EST [facility] Comment:Expected Values: Neg ative. 02/28/2019 7:24 EST 02/28/2019 7:24 EST Narrative [facility] - 02/28/2019 9:16 EST Does PT Have a Latex Allergy? NO Robby Abraham MD CHEMISTRY & BLOOD GA S ORDERABLES Performing Organization Address [facility] Co de Phone Number [facility] * MISCELLANEOUS TEST, RUFUS (02/28/2019 7:17 EST) Pathologist [facility] MISCELLANEOUS TEST - [facility] SEE BELOW () 03/05/2019 20:21 EST [facility] Comment: Test ? Result ??Flag ??Unit ?? RefValue Pyridoxal 5-Phosphate (PLP) ?11 ?mcg/L ??5-50 ??, P ADDITIONAL INFORMATION This test was developed and its performance characteristics determined by [facility] in a manner consistent with CLIA requirements. This test has not been cleared or approved by the U.S. Food and Drug Administration. Test Performed by: [facility] [place] [address] Energy Projects Lead: Aime Craig M.D. Ph.D.; CLIA# [id number] 02/28/2019 7:17 EST 02/28/2019 7:48 EST Robby Abraham MD CHEMISTRY & BLOOD GA S ORDERABLES [facility] documented in this encounter Visit Diagnoses Not on filedocumented in this encounter Care Teams Rn Labor And Delivery Relationship Specialty Start Date End Date Jennifer Sr MD [address] [place] [address] PCP - General 12/03/18 08/29/22 documented as of this encounter
--- OUTSIDE RECORDS SUMMARY | 2023-11-09 16:50 | XMS_ITS | Encounter Summary ---
Author Organization [facility] Address [address] [place] [address] Care Team Providers Care Boat Loader Name Role Phone Obey Osborn APRN Primary Care Provider [phone] Reason for Visit * Office Procedure (Routine) - Closed Specialty Diagnoses / [facility] To Contact Neurology Diagnoses Neuropathy Procedures EMG/NERVE CONDUCTION STUDY Robby Abraham MD [address] [place] [phone] [facility] [address] [place] [id number] Referral ID Status Reason Start Date Expiration Date Visits Re quested Visits Authorized [id number] Closed 01/14/2018 1 1 Encounter Details Date Type Department Care Team (Latest Contact Info) Description 02/27/2018 13:04 EST - 02/27/2018 23:59 EST Hospital Encounter [facility] Neurophysiology - [facility] [address] [place] [address] Robby Abraham MD [address] [place] [phone] Neuropathic pain Discharge Disposition: Auto Discharge Social History Tobacco [...] as of this encounter Discharge Diagnoses Diagnosis M79.2 Neuralgia and neuritis, unspecified-M79.2[ICD-10-CM] documented in this encounter Medications at Time [...] Take 1 Tab by mouth as needed. Ginkgo Biloba 120 mg tablet Take by [...] Auto Discharge Home documented in this encounter Progress Notes * Robby Abraham MD - 02/27/2018 1136 EST Nerve Conduction and Electromyography Report/ Neuromuscular Follow up Clinic Note Diagnosis: 1. Neuropathic pain Chief Complaint: No chief complaint on file. HPI: Aydee Johns is a 53 y.o. female who follows up today regarding neuropathic pain. Since she was last here she reports that she has not substantially changed her medications. Unfortunately sounds like her primary care doctor did not get our notes but suggesting new medications. She continues on 3600 mg of gabapentin daily along with 10 mg of amitriptyline at night. With both of those it does improve the pain substantially however she still has a lot of difficulty walking. If she misses her medications she is in substantially more pain. For details of her previous workup please see initial H&P Allergies: Aspirin; Codeine; Cymbalta [duloxetine]; Dilantin [phenytoin sodium extended]; Metoprolol; Penicillins; and Vitamin d [cholecalciferol (vitamin d3)] Current Outpatient Medications on File Prior to Encounter Medication Sig Dispense Refill ??? albuterol sulfate (VENTOLIN ORAL) Take by mouth. ??? calcium carbonate/vitamin D3 (VITAMIN D-3 ORAL) Take by mouth. ??? cyanocobalamin, vitamin B-12, (VITAMIN B-12 ORAL) Take by mouth. ??? gabapentin (NEURONTIN) 800 mg tablet Take 1,600 mg by mouth 2 times daily. ??? Ginkgo Biloba 120 mg tablet Take by mouth. ??? loratadine (CLARITIN) 10 mg tablet Take [...] Take 1 Tab by mouth as needed. No current facility-administered medications on file prior to encounter. Histories: Past social, medial and family history were reviewed for accuracy and appropriately updated today in the [facility] database. Review of Systems: A full 10 systems review was performed. All pertinent positives/ negatives are included in the HPI.All other systems were negative unless noted here: General Exam: Vital signs: [id number] general the patient is pleasant and in no acute distress. Extremity examinationshows no bruising, rash or edema. Neurologic Exam: Neurologic examination was deferred today in lieu of counseling coordination of care EMG/ NCS: Electrodiagnostic Summary: Sensory and motor nerve conduction studies of the right leg were normal. Needle EMG was not performed as not indicated for the evaluation of small fiber neuropathy. For waveforms/values of EMG/nerve conduction study please see accompanying scanned document in the scans/media tab in [employer]. Electrodiagnostic Impression: Normal study. There is no electrodiagnostic evidence of a large fiber polyneuropathy. Normal left conduction studies do not rule out small fiber neuropathy Assessment and Plan: Aydee Johns is a 53 y.o. female with multiple neurologic complaints was referred specifically forthe question of small fiber neuropathy. I detailed a plan a potential etiology for many of her other neurologic complaints my previous note. In terms of the neuropathic pain in her feet her nerve conduction studies today were completely normal and as such there is no evidence of a large fiber polyneuropathy. She did have a skin biopsy of her feet for years into her symptoms which was normal previously. Certainly if the sensitivity of skin biopsy is not 100% however 4 years into the symptoms it would be very unusual for it to him a small fiber neuropathy. All that said it really is a moot point. She has had a detailed workup for etiologies of small fiber neuropathy which is not yielded a treatable reversible cause. unit we were to repeat her skin biopsy at this point and it was abnormal itwould not change treatment which is the use of neuropathic medication. As I mentioned in my previous note certainly gabapentin and amitriptyline a great option. Amitriptyline can continue to be titrated up to 150 mg if necessary. If this is not effective the other agent that comes to mind would be mexiletine. If her QTC is normal on EKG mexiletine could be started at 150 mg 3 times a day. Outsideof that she could potentially benefit from lidocaine cream. I have not scheduled her for follow-up at this time as I do not think she requires further neurologic workup and outside of the mexiletine there are not other neuropathic medications that I think shewould clearly benefit from. I will place referral to general neurologist to address her multiple other neurologic concerns. 30 minutes were spent in face to face consultation with this patient separate from the EMG/ NCS study. Greater than 50% of that time was spent in counseling and coordination of care for the conditiondescribed above. Documentation will be provided to the referring physician MD Robby Dorantes M.D. Fire Control Mechanic of Neurology ABPN Board Certified, Neurology ABEM Board Certified, EMG documented in this encounter Plan of Treatment Not on file documented as of this encounter Procedures Procedure Name Priority Date/Time Associated Diagnosis Comments ELECTROMYOGRAM - SCANNED 03/04/2018 7:59 EST documented in this encounter Results * ELECTROMYOGRAM - SCANNED (03/04/2018 7:59 EST) 03/04/2018 7:59 EST Scan 2 Environmental Air Specialist PROCEDURE/MINOR MAIRA GICAL ORDERABLES documented in this encounter Visit Diagnoses Diagnosis Neuropathic pain Neuralgia, neuritis, and radiculitis, unspecified documented in this encounter Care Teams Boat Loader Relationship Specialty Start Date End Date Obey Osborn APRN [address] [place] [address] [address] [place] [address] PCP - General 08/29/17 10/10/18 documented as of this encounter
--- OUTSIDE RECORDS SUMMARY | 2023-11-09 16:50 | XMS_ITS | Encounter Summary ---
Author Organization [facility] Address [address] [place] [address] Care Team Providers Care Manager Site Name Role Phone None, Provider Primary Care Provider Jennifer Rushing MD Primary Care Provider [phone] Reason for Visit * Reason Onset Date Comments Appointment Related 10/15/2018 Encounter Details Date Type Department Care Team ([facility] st Contact Info) Description 10/15/2018 Telephone [facility] Adult Neurology - [address] [address] Randall Corey MD [address] [place] [id number] Appointment Related Social History Tobacco Use Types [...] encounter Miscellaneous Notes * Telephone Encounter - Ray Bruno - 10/15/2018 0842 EDT Reason for Call: Appointment Related Call Detail: I returned Aydee's call, we rescheduled her appointment with Dr. Corey for November. I sent a letter of confirmation. Last visit: 05/29/2018 Next visit: 12/03/2018 3:[address]pm Dr. Madhav Bruno 10/15/2018 8:42 * Telephone Encounter - Angela Vazquez - 10/15/2018 0714 EDT PAS Message: Patient needs to cancel her appointment for today 10/15/[address] Corey because she does not have transportation. Please call back to set up another time. documented in this encounter Plan of Treatment Not on file documented as of this encounter Visit Diagnoses Not on filedocumented in this encounter Care Teams Manager Site Relationship Specialty Start Date End Date None, Provider PCP - General 10/11/18 12/02/18 Jennifer Sr MD [address] [place] [address] PCP - General 12/03/18 08/29/22 documented as of this encounter
--- OUTSIDE RECORDS SUMMARY | 2023-11-09 16:50 | XMS_ITS | Encounter Summary ---
Author Organization [facility] Address [address] [place] [address] Care Team Providers Care Ham Curer Name Role Phone Obey Osborn APRN Primary Care Provider [phone] Encounter Details Date Type Department Care Team ([facility] st Contact Info) Description 10/03/2017 Abstract [facility] General Surgery - [address] [address] Macho Fernandez MD [address] [place] [address], [address] [place] [phone] Social History Tobacco Use Types Packs/Day Years [...] on filedocumented in this encounter Care Teams Ham Curer Relationship Specialty Start Date End Date Obey Osborn APRN [address] [place] [address] [address] [place] [address] PCP - General 08/29/17 10/10/18 documented as of this encounter
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
--- OUTSIDE RECORDS SUMMARY | 2023-11-09 16:50 | XMS_ITS | Encounter Summary ---
Author Organization [facility] Address [address] [place] [address] Care Team Providers Care Stitch Marker Name Role Phone Jennifer Sr MD Primary Care Provider [phone] Reason for Visit * Reason Onset Date Comments Labs Only 12/04/2018 Encounter Details Date Type Department Care Team ([facility] st Contact Info) Description 12/04/2018 Telephone [facility] Neurology - [address] [id number] Robby Valle MD [address] [place] [address] [address] [place] [phone] Labs Only Social History Tobacco Use Types [...] encounter Miscellaneous Notes * Telephone Encounter - Latisha Yeager - 12/12/2018 0848 EDT Office was calling to confirm we have received the glucose lab tests they sent over for Dr. Valle (requested by patient to be sent). Confirmed with the note below that it is in his mailbox as of 12/04. * Telephone Encounter - Danelle Woody - 12/04/2018 0941 EDT 2 HR glucose tolerance test in Dr valle mailbox documented in this encounter Plan of Treatment Not on file documented as of this encounter Visit Diagnoses Not on filedocumented in this encounter Care Teams Stitch Marker Relationship Specialty Start Date End Date Jennifer Sr MD [address] [place] [address] PCP - General 12/03/18 08/29/22 documented as of this encounter
--- OUTSIDE RECORDS SUMMARY | 2023-11-09 16:50 | XMS_ITS | Encounter Summary ---
Author Organization [facility] Address [address] [place] [address] Care Team Providers Care It Project Manager Name Role Phone Obey Osborn APRN Primary Care Provider [phone] Reason for Visit * Reason Onset Date Comments New Patient Visit 03/21/2018 Encounter Details Date Type Department Care Team ([facility] st Contact Info) Description 03/21/2018 Telephone [facility] Neurology - [address] [id number] Unknown, Doctor New Patient Visit Social History Tobacco Use Types Packs/Day Years [...] * Telephone Encounter - Aydee Pisano - 03/26/2018 1308 EST Lashaun with [facility] is calling to confirm the at [address] Corey - she is helping Aydee with transportation. * Telephone Encounter - Collin Yañze - 03/22/2018 1411 EST Scheduled NPV with Dr Corey 05/29 at 3:00pm * Telephone Encounter - Aydee Pisano - 03/21/2018 1352 EST LMOM to schedule NPV with General Neurology documented in this encounter Plan of Treatment Not on file documented as of this encounter Visit Diagnoses Not on filedocumented in this encounter Care Teams It Project Manager Relationship Specialty Start Date End Date Obey Osborn APRN [address] [place] [address] [address] [place] [address] PCP - General 08/29/17 10/10/18 documented as of this encounter
--- OUTSIDE RECORDS SUMMARY | 2023-11-09 16:50 | XMS_ITS | Encounter Summary ---
Author Organization [facility] Address [address] [place] [address] Care Team Providers Care Principal Mechanical Engineer Name Role Phone None, Provider Primary Care Provider Jennifer Rushing MD Primary Care Provider [phone] Reason for Visit * Reason Onset Date Comments Appointment Related 10/15/2018 Encounter Details Date Type Department Care Team ([facility] st Contact Info) Description 10/15/2018 Telephone [facility] Rheumatology & Immunology - [address] [address] Carl Flood Chi, MD [address] [place] [address], [address] [place] [address] Appointment Related Social History Tobacco Use Types [...] encounter Miscellaneous Notes * Telephone Encounter - Carlene Allred - 10/15/2018 1209 EDT Left message with a new appointment - advised to call back and RSC if this still did not work. * Telephone Encounter - Angela Vazquez - 10/15/2018 0711 EDT PAS Message: Patient needs to cancel her appointment for this morning 10/15/[address] Flood because she does not have transportation. Please call back to set up another time. documented in this encounter Plan of Treatment Not on file documented as of this encounter Visit Diagnoses Not on filedocumented in this encounter Care Teams Principal Mechanical Engineer Relationship Specialty Start Date End Date None, Provider PCP - General 10/11/18 12/02/18 Jennifer Sr MD [address] [place] [address] PCP - General 12/03/18 08/29/22 documented as of this encounter
--- OUTSIDE RECORDS SUMMARY | 2023-11-09 16:50 | XMS_ITS | Encounter Summary ---
Author Organization [facility] Address [address] [place] [address] Care Team Providers Care Towel Rolling Machine Operator Name Role Phone Obey Osborn APRN Primary Care Provider [phone] Reason for Visit * Reason Comments New Patient Visit u/s first * Consult (Routine/Next Available) - Specialty Report Received Specialty Diagnoses / Procedures Referred By Contac t Referred To Contact Vascular Surgery Diagnoses Pain in both feet Bilateral leg pain Virgil Núñez [place] [address] [place] [address] [facility] [address] [facility] Surgery [address] [place] [id number] Referral ID Status Reason Start Date Expiration Date Visits Requested Visits Authorized [id number] Specialty Report Received Specialty Services Required 08/29/2017 1 1 Encounter Details Date Type Department Care Team ([facility] Contact Info) Description 10/09/2017 15:00 EDT Office Visit [facility] Vascular Surgery - [address] [phone] Macho Fernandez MD [address] [facility], [address] [place] [phone] Pain in both lower extremities (Primary Dx) Discharge Disposition: Auto Discharge Social History Tobacco Use Types Packs/Day Years Used Date Smoking Tobacco: Every Day Cigarettes 1 40 Smokeless Tobacco: Never Tobacco Cessation:Ready to Q uit: No; Counseling Given: Yes Comments:since 11 yo Alcohol Use Standard Drinks/Week Comments No 0 (1 standard drink = 0.6 oz pur e alcohol) Sex and Gender Information Value Date Recorded Sex Assigned at Not on file Gender Identity Female 05/16/2019 9:18 EST Sexual Orientation Not on file documented as of this encounter Last Filed Vital Signs Vital Sign Reading Time Taken Comments Blood Pressure 140/94 10/09/2017 1429 EDT Pulse - - Temperature - - Respiratory Rate - - Oxygen Saturation - - Inhaled Oxygen Concentration - - Weight 101.2 kg (223 lb) 10/09/2017 1421 EDT Height 160 cm (5' 3) 10/09/2017 1421 EDT Body Mass Index 39.5 10/09/2017 1421 EDT documented in this encounter Functional Status [...] Yes 10/09/2017 documented as of this encounter Discharge Diagnoses Diagnosis M79.604 Pain in right leg-M79.604[ICD-10-CM] M79.605 Pain in left leg-M79.605[ICD-10-CM] documented in this encounter Discharge Disposition Disposition Code Departure Means Destination Auto Discharge documented in this encounter Progress Notes * Macho Fernandez MD - 10/09/2017 1500 EDT This office note has been dictated. documented in this encounter Consult Notes * Macho Fernandez MD - 10/09/2017 0000 EDT [facility] VASCULAR SURGERY CONSULTATION - 10/09/2017 Obey Osborn NP [facility] [address] [place] [address], [address] [place] [address] Dear Obey: Thank you for consulting us in regard to Mrs Johns's complaints of foot pain, swelling, and burning and numbness sensation bilaterally. This has been worked up by multiple different people and no good diagnosis has been found. There was some concern about her arterial exam. Because of that, she ishere to be looked at. Past medical history is positive for hyperlipidemia and sleep apnea, otherwise fairly benign, both as detailed on her new patient intake sheet and also in her electronic chart. Does smoke about a pack a day for the last 4 years. Family history of stroke and coronary artery disease. Allergy or intolerance to ASPIRIN, CODEINE, CYMBALTA, DILANTIN, METOPROLOL, PENICILLINS and VITAMINC. On exam, a 52-year-old woman in no acute distress, awake and oriented x3. Blood pressure 140/94. She is obese, BMI of 39.5. Arterial exam was normal, palpable pedal pulses. No ulcers, no skin changes. No significant edema, at least on this exam. A noninvasive vascular study was obtained. Shows normal ABIs and normal waveforms bilaterally. Assessment: No atherosclerotic occlusive disease that would explain her symptoms. Pretty much normal arterial tree throughout. I did explain that to her at length. For the swelling, I suggested mild support socks. Thank you again for asking us to see her. Sincerely, Macho Fernandez MD 04 14 PM - Macho Fernandez MD cn Dictation ID: [id number] cc: Obey Osborn CUFFING MACHINE OPERATOR, [address], [facility], [place] [address] documented in this encounter Plan of Treatment Not on file documented as of this encounter Visit Diagnoses Diagnosis Pain in both lower extremities- Primary documented in this encounter Care Teams Towel Rolling Machine Operator Relationship Specialty Start Date End Date Obey Osborn APRN [address] [place] [address] PCP - General 08/29/17 10/10/18 documented as of this encounter
--- OUTSIDE RECORDS SUMMARY | 2023-11-09 16:50 | XMS_ITS | Encounter Summary ---
Author Organization [facility] Address [address] [place] [address] Care Team Providers Care Manager Rfid Name Role Phone None, Provider Primary Care Provider Jennifer Rushing MD Primary Care Provider [phone] Reason for Visit * Reason Onset Date Comments Appointment Related 12/02/2018 Encounter Details Date Type Department Care Team ([facility] st Contact Info) Description 12/02/2018 Telephone [facility] [place] [address] Randall Corey MD [address] [place] [address] Appointment Related Social History Tobacco Use Types [...] * Telephone Encounter - Collin Yañez - 12/02/2018 1519 EDT Aydee called and confirmed she will be coming to 12/03 3:00pm FUR with Dr Corey documented in this encounter Plan of Treatment Not on file documented as of this encounter Visit Diagnoses Not on filedocumented in this encounter Care Teams Manager Rfid Relationship Specialty Start Date End Date None, Provider PCP - General 10/11/18 12/02/18 Jennifer Sr MD [address] [place] [address] PCP - General 12/03/18 08/29/22 documented as of this encounter
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
--- OUTSIDE RECORDS SUMMARY | 2023-11-09 16:50 | XMS_ITS | Encounter Summary ---
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 a1c borderline documented in this encounter Plan of Treatment Not on file documented as of this encounter Procedures Procedure Name Priority Date/Time Associated Diagnosis Comments SPEP WITH IMMUNOTYPING Routine 01/14/2018 14:18 EDT Neuropathy HEMOGLOBIN A1C Routine 01/14/2018 14:18 EDT Neuropathy documented in this encounter Results * HEMOGLOBIN A1C (01/14/2018 14:18 EDT) Hemoglobin A1C 5.7 % 01/15/2018 9:48 EDT [facility] Comment: Reference Range: <5.7% Normal 5.7-6.4% Prediabetes =>6.5% Diagnostic for diabetes (if confirmed) Goals for glycemic control in diabetes ADA 2017 For non adults with diabetes: ?? Target <7.0% For children and adolescents with type 1 diabetes: ?? Target <7.5% More or less stringent targets may be appropriate for individual patients. Est Avg Glucose 117 mg/dl 8 9:48 EDT [facility] Comment: eAG represents the A1c result expressed as average glucose in mg/dl. Blood specimen (specimen) BLOOD SPECIMEN / Unknown 01/14/2018 14:18 EDT 01/14/2018 15:26 EDT Robby Abraham MD CHEMISTRY & BLOOD GA S ORDERABLES Performing Organization Address City/State/[facility] Co de Phone Number [facility] [address] [place] [address] * SPEP WITH IMMUNOTYPING (01/14/2018 14:18 EDT) Total Protein 7.2 6.3 - 8.2 g/dl 01/14/2018 16:03 EDT [facility] Albumin % 62.4 55.8 - 66.1 % 01/15/2018 13:12 EDT [facility] Alpha-1 % 3.8 2.9 - 4.9 % 01/15/2018 13:12 EDT [facility] Alpha-2 % 10.3 7.1 - 11.8 % 01/15/2018 13:12 EDT [facility] Beta % 11.4 8.4 - 13.1 % 01/15/2018 13:12 EDT [facility] Gamma % 12.1 11.1 - 18.8 % 01/15/2018 13:12 EDT [facility] Comments 01/15/2018 13:12 EDT [facility] Comment: No apparent monoclonal protein on serum electrophoresis. See Pathology Scanned Report in PRISM. Immunotyping, Serum 01/15/2018 14:24 EDT [facility] Comment: Interpretation: Negative for monoclonal immunoglobulins. Interpreted by: ??Antonio Sorensen MD ON 01/15/2018 1424 Reference Range: Negative for monoclonal immunoglobulins. Blood specimen (specimen) BLOOD SPECIMEN / Unknown 01/14/2018 14:18 EDT 01/14/2018 15:26 EDT Robby Abraham MD CHEMISTRY & BLOOD GA S ORDERABLES [facility] [address] [place] [address] documented in this encounter Visit Diagnoses Diagnosis Neuropathy- Primary Mononeuritis of unspecified site documented in this encounter Care Teams Escrow Closer Relationship Specialty Start Date End Date Obey Osborn APRN [address] [place] [address] [address] [place] [address] PCP - General 08/29/17 10/10/18 documented as of this encounter
--- OUTSIDE RECORDS SUMMARY | 2023-11-09 16:50 | XMS_ITS | Encounter Summary ---
Author Organization [facility] Address [address] [place] [address] Care Team Providers Care Real Estate Broker Associate Name Role Phone Jennifer Sr MD Primary Care Provider [phone] Encounter Details Date Type Department Care Team ([facility] st Contact Info) Description 02/12/2019 Orders Only [facility] Total Joint Program - [address] [address] Altagracia Lozano NP [address] [place] [address] Bilateral hip pain (Primary Dx) Social History Tobacco Use Types [...] of this encounter Visit Diagnoses Diagnosis Bilateral hip pain- Primary Pain in joint, pelvic region and thigh documented in this encounter Care Teams Real Estate Broker Associate Relationship Specialty Start Date End Date Jennifer Sr MD [facility] [place] [address] PCP - General 12/03/18 08/29/22 documented as of this encounter
--- OUTSIDE RECORDS SUMMARY | 2023-11-09 16:50 | XMS_ITS | Encounter Summary ---
Author Organization [facility] Address [address] [place] [address] Care Team Providers Care Loom Blower Name Role Phone Obey Osborn APRN Primary Care Provider [phone] Reason for Referral * Consult (Routine) - Closed Specialty Diagnoses / Procedures [facility] To Contact Neurology Diagnoses Chronic nonintractable headache, unspecified headache type Robby Abraham MD [address] [place] [phone] Neurology 2c, Resident Referral ID Status Reason Start Date Expiration Date V isits Requested Visits Authorized [id number] Closed Specialty Services Required 03/04/2018 1 1 Question Answer Reason for Request: general neuro resident clinic for headaches Reason for Visit * Reason Comments Follow-up Neuropathy. Pt would like a prescription for antacid for stomach Encounter Details Date Type Department Care Team (Late st Contact Info) Description 03/04/2018 11:00 EST Office Visit [facility] Neurology - [address] [address] Robby Abraham MD [address] [place] [phone] Chronic nonintractable headache, unspecified headache type (Primary Dx) Discharge Disposition: Auto Discharge Social [...] Sign Reading Time Taken Comments Blood Pressure 122/74 03/04/2018 1055 EST Pulse 92 03/04/2018 1055 EST Temperature - - Respiratory Rate 16 03/04/2018 1055 EST Oxygen Saturation - - Inhaled Oxygen Concentration - - Weight 105.6 kg (232 lb 12.8 oz) 03/04/2018 1055 EST Height 160 cm (5' 2.99) 03/04/2018 1055 EST Body Mass Index 41.25 03/04/2018 1055 EST documented in this encounter Functional Status [...] this encounter Discharge Diagnoses Diagnosis R51 Headache-R51[ICD-10-CM] documented in this encounter Discharge Disposition Disposition Code Departure Means Destination Auto Discharge documented in this encounter Progress Notes * Robby Abraham MD - 03/04/2018 1100 EST Neuromuscular Follow up Clinic Note Diagnosis: 1.small fiber polyneuropathyh Chief Complaint: Chief Complaint Patient presents with ??? Follow-up Neuropathy. Pt would like a prescription for antacid for stomach HPI: Aydee Johns is a 53 y.o. female who follows up today regarding small fiber polyneuropathy. The last visit was on 02.27.18. Please returns after her appointment last week to discuss her neuropathic pain. She describes she continues to have burning aching pain in her feet which greatly limits her ability to do things. She continues to be on gabapentin and 10 mg of amitriptyline. Her main questions today were about the etiology and prognosis of her small fiber neuropathy. She endorses today that she is substantially depressed and has a hard time getting out of bed to [facility]. She used to work out regularly but has not had the energy to do so at all recently. She is frustrated by her pain and her inability to be active again. She feels like she is unable to drive because of the numbness in her feet but admits that she is unable to afford a car gas at the moment. She has not seen her primary care doc recently but recognizes that she needs to do so. She complains that she has issues with her memory. She brought multiple documents with her today including her GED and applying certificate to demonstrate her ability to do well in school but recently she is frustrated because she feels like she has trouble concentrating when she reads. Previous work up: (all lab values and available NCS/ EMG studies/ and imaging studies tracings were independently reviewed.) Abnormal labs: Normal labs: Imaging: NCS/ EMG: Allergies: Aspirin; Codeine; Cymbalta [duloxetine]; Dilantin [phenytoin sodium extended]; Metoprolol; Penicillins; and Vitamin d [cholecalciferol (vitamin d3)] Outpatient Medications Marked as Taking for the 03/04/18 encounter (Office Visit) with Robby Abraham MD Medication Sig Dispense Refill ??? albuterol sulfate (VENTOLIN ORAL) Take by mouth. ??? amitriptyline (ELAVIL) 25 mg tablet Take 25 mg by mouth daily. ??? calcium carbonate/vitamin D3 (VITAMIN D-3 ORAL) [...] UNABLE TO FIND Med Name: lipotrienols ??? VALACYCLOVIR HCL (VALTREX ORAL) Take 1 Tab by mouth as needed. Histories: Past social, medial and family history were reviewed for accuracy and appropriately updated today in the EPIC database. Review of Systems: A full 10 systems review was performed. All pertinent positives/ negatives are included in the HPI.All other systems were negative unless noted here: General Exam: Vital signs: BP 122/74 (BP Cuff Location: Left arm, Patient Position: Sitting, BP Cuff Sizes: Adult, large) Pulse 92 Resp 16 Ht 160 cm (62.99) Wt (!) 105.6 kg (232 lb 12.8 oz) BMI 41.25 kg/m?? In general the patient is pleasant and in no acute distress. Extremity examination shows no bruising, rash or edema. Neurologic Exam: A limited brief neurological exam was performed. Patient is alert and fully oriented. Mood and affect are appropriate. Attention span is normal. Fund of knowledge is full. Both recent and remote memory are intact. Speech and language function are normal. There is no neglect or apraxia. Motor Exam: Normal bulk and tone. Strength is 5/5 throughout. DTRs: Absent Achilles, 2 at the bilateral patella biceps triceps and brachioradialis. Sensation: Decreased pinprick and temperature to the mid monet and mid forearm. Vibratory sense is normal. Light touch is reduced to the mid monet. Labs/ Imaging Review: Assessment and Plan: Aydee Johns is a 53 y.o. female with idiopathic small fiber neuropathy. The physical examination is significant for length dependent loss of small fiber modalities and she has accompanying neuropathic pain. Her recent EMG nerve conduction study was normal ruling out large fiber neuropathy. She did have a skin biopsy many years ago which is well after the onset of her symptoms which was reportedly normal. Regardless she appears to have a small fiber neuropathy on her examination. She has had extensive workup for etiologies including seeing rheumatology and none has been discovered. At this point I feel comfortable calling this an idiopathic small fiber neuropathy. What she requires a sympto matic treatment. I have outlined this my previous notes for some recommendations for her primary care doctor. These include titration of her amitriptyline appears substantially higher dose as well asthe use of mexiletine up to 150 mg 3 times a day if the amitriptyline on its own is not successful. Additionally today we talked about the importance of treating her depression. Without her depression being adequately treated she is not able to recover from her neuropathic pain. The to work [id number]. In addition to discussing this with her primary care doctor back to asked her to try to be more active as I think exercise place important role in helping her confidence depression and get out of bed. I have asked her to go through these change medication changes with her primary care doctor and shecan reach out to me if they need any assistance in the interim. Otherwise I can see her back after she is try these therapies if they are unsuccessful successful. 40 minutes were spent in face to face consultation with this patient. Greater than 50% of that timewas spent in counseling and coordination of care for the condition described above. Documentation will be provided to the referring physician Obey Abraham M.D. Branch Sales And Service Representative of Neurology ABPN Board Certified, Neurology ABEM Board Certified, EMG documented in this encounter Plan of Treatment Scheduled Referrals Name Type Priority Associated Diagnoses Orde r Schedule AMB CONS/FOLLOW UP NEUROLOGY Outpatient Referral Routine Chronic nonintractable headache, unspecified headache type Ordered: 03/04/2018 documented as of this encounter Visit Diagnoses Diagnosis Chronic nonintractable headache, unspecified headache type- Primary documented in this encounter Historical Medications * This list may reflect changes made after this encounter. Medication Sig Dispensed Refills Start Date End Date amitriptyline (ELAVIL) 25 mg tablet Take 25 mg by mouth daily. 12/17/2018 added in this encounter Care Teams Loom Blower Relationship Specialty Start Date End Date Obey Osborn APRN [address] [place] [address] [address] [place] [address] PCP - General 08/29/17 10/10/18 documented as of this encounter
--- OUTSIDE RECORDS SUMMARY | 2023-11-09 16:50 | XMS_ITS | Encounter Summary ---
Author Organization [facility] Address [address] [place] [address] Care Team Providers Care Fire Apparatus Sprinkler Inspector Name Role Phone Obey Osborn APRN Primary Care Provider [phone] Reason for Visit * Reason Comments Foot Pain * Consult (Routine/Next Available) - Specialty Report Received Specialty Diagnoses / Procedures Referred By Mayda jalloh Referred To Contact Orthopedic Surgery Diagnoses Pain in both feet Virgil Núñ[place] [address] [place] [address] [facility] [address] [place] [address] Referral ID Status Reason Start Date Expiration Date Visits Requested Visits Authorized [id number] Specialty Report Received Specialty Services Required 08/29/2017 1 1 Encounter Details Date Type Department Care Team (Late st Contact Info) Description 11/19/2017 14:30 EDT Office Visit [facility] - [place] [address] [place] [address] Talha Oates DPM [address] [place] [address] Idiopathic peripheral neuropathy (Primary Dx) Discharge Disposition: Auto Discharge Social [...] - Inhaled Oxygen Concentration - - Weight 102.1 kg (225 lb) 11/19/2017 1415 EDT Height 160 cm (5' 3) 11/19/2017 1415 EDT Body Mass Index 39.86 11/19/2017 1415 EDT documented in this encounter Functional Status [...] as of this encounter Discharge Diagnoses Diagnosis G60.9 Hereditary and idiopathic neuropathy, unspecified-G60.9[ICD-10-CM] documented in this encounter Discharge Disposition Disposition Code Departure Means Destination Auto Discharge documented in this encounter Progress Notes * Talha Oates, DPM - 11/19/2017 1430 EDT HISTORY OF PRESENT ILLNESS: A 52-year-old female who presents today with bilateral foot pain -- right worse than left. She states that this is a constant pain that starts in her feet and toes and canradiate proximally towards her knees. She describes a combination of hypersensitivity and numbness at the same time. She has previously been diagnosed with idiopathic peripheral neuropathy and has seen multiple providers in multiple disciplines. She also describes difficulty with balance. She subsequently uses a cane. She is only able to tolerate certain types of shoes, as the pressure on the tops of her feet is aggravating. She is taking gabapentin 3200 mg per day. She has been on this medication since 2013. She has had a previous EMG, which did not show any evidence of polyneuropathy. She has chronic low back pain, which is well documented. The patient is on disability due to multiple medical problems. She has been recently seen and evaluated by vascular surgery as well as by rheumatology. She has been seen by the nonoperative spine providers. The patient is a nonsmoker. The patient'sremaining past medical history, medications, allergies, past surgical, social and family history were reviewed and noted in the electronic health record. PHYSICAL EXAM: Constitutional exam: The patient is in no acute distress. Psychological exam: The patient is awake, alert and oriented x3. Vascular exam: Her pedal pulses are 2/4 on the right foot. They are nonpalpable on the left. Capillary filling time is within 3 seconds for both feet. Neurologic exam: Sensation is intact. Her muscle strength is weaker around the ankle and subtalar joint on the right foot in all muscle groups. It is of normal presentation on the left. She has a negative Tinel's sign upon percussion of the posterior tibial nerve within the distal tarsal tunnel on both feet. Dermatologic exam: Her skin texture, tone and turgor is within normal limits. Webspaces are clear. Orthopedic exam: She has difficulty with standing without pain. She has an antalgic gait pattern and an apropulsive gait. She has normal pedal joint range of motion. There is no focal area of edema or swelling to suggest a focal orthopedic related injury. IMPRESSION: 1. Idiopathic peripheral neuropathy. 2. Weakness, right lower extremity around the ankle and subtalar joint. TREATMENT PLAN: She will continue with the gabapentin under the direction of her primary care physician. We also suggested a right ankle brace may help to give her some stability if she is able to tolerate the compression of the brace around her ankle. I would ask that she patient with this. My hope is that with the added stability she will have greater ability to navigate safely with less risk of falling. documented in this encounter Plan of Treatment Not on file documented as of this encounter Visit Diagnoses Diagnosis Idiopathic peripheral neuropathy- Primary Unspecified hereditary and idiopathic peripheral neuropathy documented in this encounter Care Teams Fire Apparatus Sprinkler Inspector Relationship Specialty Start Date End Date Obey Osborn APRN [address] [place] [address] [address] [place] [address] PCP - General 08/29/17 10/10/18 documented as of this encounter
--- OUTSIDE RECORDS SUMMARY | 2023-11-09 16:51 | XMS_ITS | Encounter Summary ---
Author Organization [facility] Address [address] [place] [address] Care Team Providers Care Carbon Brush Maker Name Role Phone Ca Leggett MD Primary Care Provider Unavailable Encounter Details Date Type Department Care Team ([facility] Contact Info) Description 07/04/2004 Results Only [facility] - Maple conversion [address] [place] [address] Nuvia Velázquez MD [address] [place] [phone] Social History Tobacco Use Types Packs/Day Years Used Date Smoking Tobacco: Never Assessed Sex and Gender Information Value Date Recorded Sex Assigned at Not on file Gender Identity Female 05/16/2019 9:18 EST Sexual Orientation Not on file documented as of this encounter Plan of Treatment Not on file documented as of this encounter Procedures Procedure Name Priority Date/Time Associated Diagnosis Comments CYTOPATHOLOGY Routine 07/04/2004 0:00 EST documented in this encounter Results * CYTOPATHOLOGY (07/04/2004 0:00 EST) Pathology Report: CYTOPATHOLOGY REPORT Reports generated via electronic interface contain original data; however they are lacking the format of the original report. Caution should be taken when reading/interpreti ng unformatted reports. Name: ? MEJIAAYDEE SMITH ? Accession #: ? [id number] : ? 1965 (Age: 39) ??F ?Collect Date: ? 07/04/2004 Location: ? [facility] ? Receive Date: ? 07/06/2004 Provider: ?NUVIA VELÁZQUEZ MD Copy to: ? [facility] ?[address] ?[place], [place] [address] ? Specimen/Source: ?ThinPrep Pap Test, Cervix Last Menstrual Period: ? 2 weeks ago Other: ? HPVA - HPV testing requested if ASC-US on the current ThinPrep Pap test. ? SPECIMEN ADEQUACY ? Satisfactory for Evaluation - transformation zone component absent GENERAL CATEGORIZATION ? Negative for Intraepithelial Lesion or Malignancy ? Document reviewed and electronically signed by: ? JOHN Irizarry(ASCP) ? Report Date: ??07/08/2004 14:36 End of Report JEY MONTEZ 07/04/2004 07/06/2004 Nuvia Velázquez MD PATHOLOGY ORDERAB LES [facility] [address] [place] [address] documented in this encounter Visit Diagnoses Not on filedocumented in this encounter Care Teams Carbon Brush Maker Relationship Specialty Start Date End Date Ca Leggett MD PCP - General 09/07/08 12/04/10 documented as of this encounter
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
--- OUTSIDE RECORDS SUMMARY | 2023-11-09 16:51 | XMS_ITS | Encounter Summary ---
Author Organization [facility] Address [address] [place] [address] Care Team Providers Care Trip Motor Operator Name Role Phone Suleiman Zambrano PA-C Primary Care Provider + Reason for Visit * Reason Onset Date Comments Appointment Related 09/14/201609/23 Encounter Details Date Type Department Care Team ([facility] Contact Info) Description 09/14/2016 Telephone [facility] Rheumatology & Immunology - [address] [phone] Carl Flood Chi, MD [address] [place] [address], [address] [place] [address] Appointment Related (09/23) Social History Tobacco Use Types Packs/Day Years Used Date Smoking Tobacco: Some Days Alcohol Use Standard Drinks/Week Comments Yes 0 (1 standard drink = 0.6 oz pur e alcohol) Sex and Gender Information Value Date Recorded Sex Assigned at Not on file Gender Identity Female 05/16/2019 9:18 EST Sexual Orientation Not on file documented as of this encounter Miscellaneous Notes * Telephone Encounter - Ailin Renteria RN - 09/15/2016 1610 EDT Spoke with patient and advised her that this was already taken care of last month. Pt verbalized understanding. * Telephone Encounter - Hemal Gallegos - 09/14/2016 1625 EDT Reason for Call: Appointment Related (09/23) Summary/Symptoms: Patient needs Medicaid referral form to be sent to [facility], needs to also say she should be her by 1 pm. Fax is [phone]. They did received something from us but not what they needed.Call her to confirm Hemal Gallegos 09/14/2016 16:24 documented in this encounter Plan of Treatment Not on file documented as of this encounter Visit Diagnoses Not on filedocumented in this encounter Care Teams Trip Motor Operator Relationship Specialty Start Date End Date Suleiman Zambrano PA-C [address] [place] [address] PCP - General 04/05/12 10/22/16 documented as of this encounter
--- OUTSIDE RECORDS SUMMARY | 2023-11-09 16:51 | XMS_ITS | Encounter Summary ---
Author Organization [facility] Address [address] [place] [address] Care Team Providers Care Machine Chain Maker Name Role Phone Ca Leggett MD Primary Care Provider Unavailable Encounter Details Date Type Department Care Team ([facility] Contact Info) Description 08/11/2005 Results Only [facility] [address] [place] [address] Codie [place], [address] [facility] [place] [address] Social History Tobacco Use Types Packs/Day Years Used Date Smoking Tobacco: Never Assessed Sex and Gender Information Value Date Recorded Sex Assigned at Not on file Gender Identity Female 05/16/2019 9:18 EST Sexual Orientation Not on file documented as of this encounter Plan of Treatment Not on file documented as of this encounter Procedures Procedure Name Priority Date/Time Associated Diagnosis Comments CYTOPATHOLOGY Routine 08/11/2005 0:00 EDT documented in this encounter Results * CYTOPATHOLOGY (08/11/2005 0:00 EDT) Pathology Report: CYTOPATHOLOGY REPORT Reports generated via electronic interface contain original data; however they are lacking the format of the original report. Caution should be taken when reading/interpreti ng unformatted reports. Name: ? JACKIE AYDEE ? Accession #: ? [id number] : ? 1965 (Age: 40) ??F ?Collect Date: ? 08/11/2005 Location: ? [facility] ? Receive Date: ? 08/14/2005 Provider: ?CODIE [place] BELTING AND WEBBING INSPECTOR Copy to: ? Specimen/Source: ?ThinPrep Pap Test, Vagina/Cervix, processed on [employer] ThinPrep Imaging System, with manual evaluation Last Menstrual Period: ? 08/04/05 Other: ? HPVA - HPV testing requested if ASC-US on the current ThinPrep Pap test. ? SPECIMEN ADEQUACY ? Satisfactory for Evaluation - transformation zone component present GENERAL CATEGORIZATION ? Negative for Intraepithelial Lesion or Malignancy ? Document reviewed and electronically signed by: ? Jessi Stevens, SCT(ASCP) ? Report Date: ??08/15/2005 15:48 End of Report JEY MONTEZ 08/11/2005 08/14/2005 Codie [place] NP PATHOLOGY ORDERABLE S JEY MONTEZ [address] [place] [address] documented in this encounter Visit Diagnoses Not on filedocumented in this encounter Care Teams Machine Chain Maker Relationship Specialty Start Date End Date Ca Leggett MD PCP - General 09/07/08 12/04/10 documented as of this encounter
--- OUTSIDE RECORDS SUMMARY | 2023-11-09 16:51 | XMS_ITS | Encounter Summary ---
Author Organization [facility] Address [address] [place] [address] Care Team Providers Care Plate Colorer Name Role Phone Suleiman Zambrano PA-C Primary Care Provider + None, Provider Primary Care Provider Odalys Barrera MD Primary Care Provider [phone] Porsha Louise ND Primary Care Provider Malina matamoros Reason for Visit * Reason Onset Date Comments Coordination Of Care 09/18/2016 RTC/ Medica l referral Follow-up 09/18/2016 Encounter Details Date Type Department Care Team (Late st Contact Info) Description 09/18/2016 Telephone [facility] Rheumatology & Immunology - [address] [phone] Carl Flood Chi, MD [address] [place] [address], [address] [place] [phone] Coordination Of Care (RTC/ Medical referral ); Follow-up Social History Tobacco Use Types Packs/Day Years [...] encounter Miscellaneous Notes * Telephone Encounter - Jazlyn Zamora - 09/19/2016 1366 EDT Reason for Call: Coordination Of Care (RTC/ Medical referral ) and Follow-up Summary/Symptoms: Per patient, [facility] office is closed for the day. Wanted to let Daysi know. Jazlyn Zamora 09/19/2016 15:56 * Telephone Encounter - Daysi Wahl RN - 09/19/2016 1548 EDT Unable to locate the form from [facility] ([employer]). Spoke with patient, she will ask them to fax to triage [phone]. We need to fax to Medicaid for decision if transportation is medically necessary. [facility] ph# [phone]. * Telephone Encounter - Jasmeet Langley - 09/18/2016 1552 EDT Patient calling as she needs a medical referral sent to RTC. They are going to send a fax to the Main fax . Needs to be filled out and faxed back over for her ride and appt 7.17.Thank you documented in this encounter Plan of Treatment Not on file documented as of this encounter Visit Diagnoses Not on filedocumented in this encounter Care Teams Plate Colorer Relationship Specialty Start Date End Date Suleiman Zambrano PA-C [address] [place] [phone] PCP - General 04/05/12 10/22/16 None, Provider PCP - General 10/23/16 12/05/16 Odalys Hanley MD PCP - General 12/06/16 02/05/17 Porsha Louise ND [address] [place] [address] [place] [address] PCP - General 02/06/17 08/28/17 documented as of this encounter
--- OUTSIDE RECORDS SUMMARY | 2023-11-09 16:51 | XMS_ITS | Encounter Summary ---
Author Organization [facility] Address [address] [place] [address] Care Team Providers Care System Support Developer Name Role Phone None, Provider Primary Care Provider Unavailabl e Encounter Details Date Type Department Care Team ([facility] Contact Info) Description 10/23/2016 Phlebotomy Only [address] [address] Ip/Mosaic Technician, Outpatient Positive ADRIANA (antinuclear antibody); Paresthesia of both feet Social History Tobacco [...] visiting a doctor's office or shopping? No 10/23/2016 Cognitive Status Response Date of Assessm ent Because of a physical, menta l, or emotional condition, does this person have serious difficulty concentrating, remembering, or making decisions? Yes 10/23/2016 documented as of this encounter Plan of Treatment Not on file documented as of this encounter Procedures Procedure Name Priority Date/Time Associated Diagnosis Comments SS-B (LA) ANTIBODY, IGG Routine 10/23/2016 15:34 EDT Positive ADRIANA (antinuclear antibody) ZZHN SSA ANTIBODIES BY ALMA ROSA Routine 10/23/2016 15:34 EDT Positive ADRIANA (antinuclear antibody) SM (AGEE) ANTIBODY, IGG Routine 10/23/2016 15:34 EDT Positive ADRIANA (antinuclear antibody) ARTHRITIS 1 Routine 10/23/2016 15:34 EDT Positive ADRIANA (antinuclear antibody) LYME AB Routine 10/23/2016 15:34 EDT Positive ADRIANA (antinuclear antibody) FOURDRINIER W[employer] WEAVER ANTIBODY, IGG Routine 10/23/2016 15: 34 EDT Positive ADRIANA (antinuclear antibody) DOUBLE STRANDED DNA ANTIBODY, IGG Routine 10/23/2016 15:34 EDT Positive ADRIANA (antinuclear antibody) COMPLETE BLOOD COUNT AND DIFFERENTIAL Routine 10/23/2016 15:34 EDT Positive ADRIANA (antinuclear antibody) C4 COMPLEMENT Routine 10/23/2016 15:34 EDT Positive ADRIANA (antinuclear antibody) THYROID ANTIBODIES Routine 10/23/2016 15 :34 EDT Positive ADRIANA (antinuclear antibody) FOLATE Routine 10/23/2016 15:34 EDT Paresthesia of both feet COMPREHENSIVE METABOLIC PANEL (CMP) Routine 10/23/2016 15:34 EDT Positive ADRIANA (antinuclear antibody) documented in this encounter Results * THYROID ANTIBODIES (10/23/2016 15:34 EDT) Thyroglobulin Ab 16 <61 U/mL 10/25/19 17 9:24 EDT [facility] Thyroperoxidase Ab <28 <61 U/mL 2016 10:18 EDT [facility] Blood specimen (specimen) BLOOD SPECIMEN / Unknown 10/23/2016 15:34 EDT 10/23/2016 15:47 EDT Carl Flood MD CHEMISTRY & BLOOD GA S ORDERABLES [facility] [address] [place] [address] * FOLATE (10/23/2016 15:34 EDT) Folate 14.9 ng/ml 10/24/2016 13:01 EDT [facility] Comment: Deficient: ??Less than 3.4 ng/mL Indeterminate: ??3.4-5.4 ng/mL Normal: ??Greater than 5.4 ng/mL Blood specimen (specimen) BLOOD SPECIMEN / Unknown 10/23/2016 15:34 EDT 10/23/2016 15:47 EDT Carl Flood MD CHEMISTRY & BLOOD GA S ORDERABLES Performing Organization Address [facility] Co de Phone Number [facility] [address] [place] [address] * [employer]INIER W[employer] WE[employer]ER ANTIBODIES BY ALMA ROSA (10/23/2016 15:34 EDT) [employer]ER Antibody 1.9 <20 Units 10/24/2016 12:54 EDT [facility] Comment: Negative: <20 Units Weak Positive: 20 - 39 Units Moderate Positive: 40 - 80 Units Strong Positive: >80 Units Results were obtained with the [employer] QUANTA Lite [employer]INIER W[employer] WEAVER ALMA ROSA. [employer]INIER W[employer] WEAVER Values obtained with different manufacturers' assay methods may not be used interchangeably. The magnitude of the reported IgG levels cannot be correlated to an endpoint titer. A positive result in the QUANTA Lite FOURDRINIER W[employer] WEAVER ALMA ROSA indicates the presence of antibodies reactive with the FOURDRINIER WIRE WEAVER/Sm complex but cannot distinguish between anti-Sm and anti-FOURDRINIER WIRE WEAVER activity. Blood specimen (specimen) BLOOD SPECIMEN / Unknown 10/23/2016 15:34 EDT 10/23/2016 15:47 EDT Carl Flood MD IMMUNOLOGY AND SEROL OGY ORDERABLES [facility] [address] [place] [address] * SSA ANTIBODIES BY ALMA ROSA (10/23/2016 15:34 EDT) SSA Antibody 1.5 <20 Units 10/24/2016 12:53 EDT [facility] Comment: Negative: <20 Units Weak Positive: 20 - 39 Units Moderate Positive: 40 - 80 Units Strong Positive: >80 Units Results were obtained with the [employer] QUANTA Lite SS-A ALMA ROSA. SS-A values obtained with different manufacturers' assay methods may not be used interchangeably. The magnitude of the reported IgG levels cannot be correlated to an endpoint titer. Blood specimen (specimen) BLOOD SPECIMEN / Unknown 10/23/2016 15:34 EDT 10/23/2016 15:47 EDT Narrative Authorizing Provider Result Charly Flood MD IMMUNOLOGY AND SEROL OGY ORDERABLES Performing Organization Address [facility] de Phone Number [facility] [address] [place] [address] * SSB ANTIBODIES BY ALMA ROSA (10/23/2016 15:34 EDT) Pathologist [facility] SSB Antibody 2.6 <20 Units 10/24/2016 12:53 EDT [facility] Comment: Negative: <20 Units [...] Blood specimen (specimen) BLOOD SPECIMEN / Unknown 10/23/2016 15:34 EDT 10/23/2016 15:47 EDT Narrative Authorizing Provider Result Charly Flood MD IMMUNOLOGY AND SEROL OGY ORDERABLES Performing Organization Address [facility] Co de Phone Number [facility] [address] [place] [address] * (ABNORMAL) COMPREHENSIVE METABOLIC PANEL (CMP) (10/23/2016 15:34 EDT) Potassium 4.2 3.5 - 5.0 mEq/L 10/23/2016 16:30 EDT [facility] Sodium 141 136 - 145 mEq/L 10/23/2016 16:30 EDT [facility] Chloride 106 96 - 110 mEq/L 10/23/2016 16:30 [facility] CO2 20(L) 22 - 32 mEq/L 10/23/2016 16:30 [facility] Total Alkaline Phosphatase 70 38 - 126 U/L 10/23/2016 16:30 [facility] Bilirubin, Total <0.5 <1.4 mg/dl 10/24/19 16:30 [facility] AST 19 15 - 46 U/L 10/23/2016 16:30 [facility] ALT 21 <53 U/L 10/23/2016 16:30 [facility] Albumin 4.4 3.4 - 4.9 g/dl 10/23/2016 16:30 [facility] Total Protein 7.0 6.3 - 8.2 g/dl 10/23/2016 16:30 [facility] Creatinine 0.63 0.52 - 1.04 mg/dl 10/23/2016 16:30 [facility] GFR, Calculated 103 >60 ml/min/1.7 3m2 10/23/2016 16:30 [facility] Comment: eGFR calculated using CKD-EPI equation for non Americans. Multiply eGFR by 1.16 for Americans. BUN 10 10 - 26 mg/dl 10/23/2016 16:30 [facility] Calcium 9.7 8.5 - 10.5 mg/dl 10/23/2016 16:30 [facility] Calculated Calcium 9.4 8.5 - 10.5 mg/dl 10/23/2016 16:30 [facility] Glucose, Serum 97 70 - 100 mg/dl 10/23/2016 16:30 [facility] Fasting? No 10/23/2016 15:33 [facility] Blood specimen (specimen) BLOOD SPECIMEN / Unknown 10/23/2016 15:34 EDT 10/23/2016 15:47 EDT Carl Flood MD CHEMISTRY & BLOOD GA S ORDERABLES [facility] [address] [place] [id number] * (ABNORMAL) HEMAGRAM AND DIFFERENTIAL (10/23/2016 15:34 EDT) WBC 8.86 4.0 - 12.4 K/cmm 10/23/2016 16:01 [facility] RBC 4.50 3.86 - 5.04 M/cmm 10/23/2016 16:01 [facility] Hemoglobin 14.5 11.6 - 15.2 gm/dl 10/23/2016 16:01 [facility] HCT 41.2 34.9 - 44.4 % 10/23/2016 16:01 [facility] MCV 92 81 - 98 fl 10/23/2016 16:01 [facility] MCH 32.2 26.7 - 33.3 pg 10/23/2016 16:01 [facility] MCHC 35.2 32.1 - 35.9 gm/dl 10/23/2016 16:01 [facility] RDW-CV 11.9 <14.7 % 10/23/2016 16:01 [facility] RDW-SD 40.0 <50.4 fl 10/23/2016 16:01 [facility] PLT 320 141 - 377 K/cmm 10/23/2016 16:01 [facility] MPV 8.9(L) 9.5 - 12.7 fl 10/23/2016 16:01 [facility] % Neutrophils 49.8 % 10/23/2016 16:01 [facility] % Lymphocytes 39.7 % 10/23/2016 16:01 [facility] % Monocytes 6.2 % 10/23/2016 16:01 [facility] % Eosinophils 3.3 % 10/23/2016 16:01 [facility] % Basophils 0.7 % 10/23/2016 16:01 [facility] % Immature Grans 0.3 % 10/23/2016 16:01 [facility] ABS Neutrophils 4.41 2.20 - 8.85 K/cmm 10/23/2016 16:01 EDT [facility] ABS Lymphs 3.52(H) 1.09 - 3.30 K/[facility] 10/23/2016 16:01 EDT [facility] ABS Monocytes 0.55 0.1 - 0.8 K/cm 10/23/2016 16:01 EDT [facility] ABS Eosinophils 0.29 0.03 - 0.61 K/[facility] 10/23/2016 16:01 EDT [facility] ABS Basophils 0.06 0.01 - 0.11 K/cm 10/23/2016 16:01 [facility] ABS Immature Grans 0.03 0 - 0.06 K/[facility] 10/23/2016 16:01 T [facility] Type of Diff: Automated 10/23/2016 16:01 T [facility] Blood specimen (specimen) BLOOD SPECIMEN / Unknown 10/23/2016 15:34 EDT 10/23/2016 15:47 EDT Carl Flood MD PACKAGES & DNA PROBE ORDERABLES Performing Organization Address [facility] Co de Phone Number [facility] [address] [place] [address] * LYME AB (10/23/2016 15:34 EDT) Lyme AB Negative 10/24/2016 13:24 EDT [facility] Comment:Reference Range: Neg ative Blood specimen (specimen) BLOOD SPECIMEN / Unknown 10/23/2016 15:34 EDT 10/23/2016 15:47 EDT Carl Flood MD IMMUNOLOGY AND SEROL OGY ORDERABLES Performing Organization Address City/[facility]/ZIP Co de Phone Number [facility] [address] [place] [address] * (ABNORMAL) C4 COMPLEMENT (10/23/2016 15:34 EDT) C4 Complement 40(H) 16 - 38 mg/dl 10/24/2016 10:34 EDT [facility] Blood specimen (specimen) BLOOD SPECIMEN / Unknown 10/23/2016 15:34 EDT 10/23/2016 15:47 EDT Narrative Authorizing Provider Result Charly Flood MD CHEMISTRY & BLOOD GA S ORDERABLES Performing Organization Address [facility] Co de Phone Number [facility] [address] [place] [address] * (ABNORMAL) ARTHRITIS 1 (10/23/2016 15:34 EDT) Rheumatoid Factor <20 <20 IU/ml 017 10:34 EDT [facility] ADRIANA Interpretation Positive(A) Negative 10/24/2016 15:04 EDT [facility] Comment: Results were obtained with the [employer] NOVA Lite HEp-2 ADRIANA kit by indirect immunofluorescence. ADRIANA Titer Pattern 1:320 Speckled 10/24/2016 12:46 EDT [facility] Blood specimen (specimen) BLOOD SPECIMEN / Unknown 10/23/2016 15:34 EDT 10/23/2016 15:47 EDT Narrative Authorizing Provider Result Charly Flood MD IMMUNOLOGY AND SEROL OGY ORDERABLES Performing Organization Address [facility] de Phone Number [facility] [address] [place] [address] * SM (AGEE) ANTIBODY (10/23/2016 15:34 EDT) Sm (Agee) Antibody 0.9 <20 Units 10/24/2016 12:53 EDT [facility] Comment: Negative: <20 Units Weak Positive: 20 - 39 Units Moderate Positive: 40 - 80 Units Strong Positive: >80 Units Results were obtained with the [employer] QUANTA Lite Sm ALMA ROSA. Sm values obtained with different manufacturers' assay methods may not be used interchangeably. The magnitude of the reported IgG levels cannot be correlated to an endpoint titer. Blood specimen (specimen) BLOOD SPECIMEN / Unknown 10/23/2016 15:34 EDT 10/23/2016 15:47 EDT Narrative Authorizing Provider Result Charly Flood MD IMMUNOLOGY AND SEROL OGY ORDERABLES Performing Organization Address City/[facility] Co de Phone Number [facility] [address] [place] [address] * ANTI DNA (DOUBLE STRAND) (10/23/2016 15:34 EDT) Anti DNA (DS) <12.3 <30 IU/mL 10/24/2016 13:58 EDT [facility] Comment:Results were obtaine d with the [employer] QUANTA Lite dsDNA SC ALMA ROSA assay. Blood specimen (specimen) BLOOD SPECIMEN / Unknown 10/23/2016 15:34 EDT 10/23/2016 15:47 EDT Carl Flood MD IMMUNOLOGY AND SEROL OGY ORDERABLES Performing Organization Address [facility] Co de Phone Number [facility] [address] [place] [address] documented in this encounter Visit Diagnoses Diagnosis Positive ADRIANA (antinuclear antibody) Other and unspecified nonspecific immunological findings Paresthesia of both feet documented in this encounter Care Teams System Support Developer Relationship Specialty Start Date End Date None, Provider PCP - General 10/23/16 12/05/16 documented as of this encounter
--- OUTSIDE RECORDS SUMMARY | 2023-11-09 16:51 | XMS_ITS | Encounter Summary ---
Author Organization [facility] Address [address] [place] [address] Care Team Providers Care Pharmaceutical Operator Name Role Phone Unavailable Primary Care Provider Unavailabl e Encounter Details Date Type Department Care Team (Late st Contact Info) Description 09/03/2008 Orders Only [facility] - [facility] ([facility] [address] [place] [id number] Jayson Jones MD [address] [place] [address] Social History Tobacco Use Types Packs/Day Years Used Date Smoking Tobacco: Never Assessed Sex and Gender Information Value Date Recorded Sex Assigned at Not on file Gender Identity Female 05/16/2019 9:18 EST Sexual Orientation Not on file documented as of this encounter Plan of Treatment Not on file documented as of this encounter Procedures Procedure Name Priority Date/Time Associated Diagnosis Comments SURGICAL PATHOLOGY Routine 09/03/2008 0:00 EDT documented in this encounter Results * SURGICAL PATHOLOGY (09/03/2008 0:00 EDT) Pathology Report: SURGICAL PATHOLOGY REPORT ? Reports generated via electronic interface contain original data; ? however they are lacking the format of the original report. ? Caution should be taken when reading/interpreti ng unformatted reports. ? Name: ? MEJIA, AYDEE ? Accession #: ? [id number] ? : ? 1965 (Age: 43) ??F ? Collect Date: ? 09/03/2008 ? Location: ? [facility] ? Receive Date: ? 09/04/2008 ? Provider: JAYSON JONES MD ? Copy to: REE GENTILE MD ? Final Pathologic Diagnosis: ? Appendix, appendectomy: ? - Acute appendicitis and periappendicitis. ? Document reviewed and electronically signed by: ? Salvador B. Ambaye, MD ? Report ??Date: 09/07/2008 15:46 ? By the signature above, the attending physician certifies that he/she has ? personally conducted a gross and/or microscopic examination of the described ? specimens and rendered or confirmed the above diagnosis. ? Specimen(s) Received: ? Appendix ? Clinical History: ? Appendicitis ? Gross Description: ? Received in formalin labelled Mejia, Aydee and appendix is a 9.0 cm in ?? length by 0.6 cm in diameter vermiform appendix received with the proximal ? margin stapled closed. ??The proximal margin is black inked. ??There is a moderate amount of attached mesoappendix on the distal one-third. ??The serosa is ? generally smooth, light thomas, focally hyperemic, and is partially stripped in the distal one-third of the appendix over an area measuring 1.2 cm in length. ? Sections reveal the appendiceal lumen contains a moderate amount of soft fecal ?? material; however, there are no fecaliths present and the lumen measures up to ?? 0.4 cm in diameter. ??The appendiceal mucosa is thomas, while the wall is thomas-white, with the wall ranging in thickness from 0.1 cm to 0.2 cm. ??There are no ? discernible perforations. ??A section taken adjacent to the stapled proximal ? margin, along with cross sections of the distal, middle, and proximal appendix ?? and one-half of the longitudinally bisected distal tip of the appendix are all ?? submitted in one cassette. ??(Paty Grayson/priti ? End of Report ? JE[facility] 09/03/2008 09/04/2008 9:3 2 EDT Jayson Jones MD PATHOLOGY ORDERABLE S [facility] [address] [place] [address] documented in this encounter Visit Diagnoses Not on filedocumented in this encounter
--- OUTSIDE RECORDS SUMMARY | 2023-11-09 16:51 | XMS_ITS | Encounter Summary ---
Author Organization [facility] Address [address] [place] [address] Care Team Providers Care Media Promoter Name Role Phone Suleiman Zambrano PA-C Primary Care Provider + Encounter Details Date Type Department Care Team (Late st Contact Info) Description 04/16/2012 Abstract [facility] - [address] [place] [address] Nick Gomez PA-C [address] [place] [address] [place] [phone] Social History Tobacco Use Types Packs/Day Years [...] on filedocumented in this encounter Care Teams Media Promoter Relationship Specialty Start Date End Date Suleiman Zambrano PA-C [address] [place] [phone] PCP - General 04/05/12 10/22/16 documented as of this encounter
--- OUTSIDE RECORDS SUMMARY | 2023-11-09 16:51 | XMS_ITS | Encounter Summary ---
Author Organization [facility] Address [address] [place] [address] Care Team Providers Care Metal Rolling Mill Operator Name Role Phone Ca Leggett MD Primary Care Provider Unavailable Encounter Details Date Type Department Care Team ([facility] Contact Info) Description 08/03/2006 Results Only [facility] [address] [place] [address] Codie Wayne, SUN[employer] [address] [facility] [place], [place] [id number] Social History Tobacco Use Types Packs/Day Years Used Date Smoking Tobacco: Never Assessed Sex and Gender Information Value Date Recorded Sex Assigned at Not on file Gender Identity Female 05/16/2019 9:18 EST Sexual Orientation Not on file documented as of this encounter Plan of Treatment Not on file documented as of this encounter Procedures Procedure Name Priority Date/Time Associated Diagnosis Comments CYTOPATHOLOGY Routine 08/03/2006 0:00 EDT documented in this encounter Results * CYTOPATHOLOGY (08/03/2006 0:00 EDT) Pathology Report: CYTOPATHOLOGY REPORT Reports generated via electronic interface contain original data; however they are lacking the format of the original report. Caution should be taken when reading/interpreti ng unformatted reports. Name: ? JACKIE AYDEE ? Accession #: ? [id number] : ? 1965 (Age: 41) ??F ?Collect Date: ? 08/03/2006 Location: ? [facility] ? Receive Date: ? 08/06/2006 Provider: ?CODIE WAYNE OPHTHALMOLOGY ASSISTANT Copy to: ? Srinath First ?[facility] ?[address] ?[place], [place] [address] ? Specimen/Source: ?ThinPrep Pap Test, Cervix/Endocervix, processed on [employer] ThinPrep Imaging System, with manual evaluation Last Menstrual Period: ? 07/04/06 Other: ? HPVA - HPV testing requested if ASC-US on the current ThinPrep Pap test. ? SPECIMEN ADEQUACY ? Satisfactory for Evaluation - transformation zone component present GENERAL CATEGORIZATION ? Other, see interpretation INTERPRETATION ? Endometrial cells present in a woman equal to or greater than age 40. Negative for Intraepithelial Lesion. EDUCATIONAL NOTES/RECOMMENDATI ONS ? Benign appearing endometrial cells on Pap tests are usually a normal finding in women with regular menstrual cycles, especially if the Pap test was collected during the first half of the menstrual cycle. There is data showing that endometrial cells on Pap tests may be associated with endometrial/uterin e abnormalities in post menopausal women or in perimenopausal women with abnormal bleeding. There is limited data on the significance of benign endometrial cells in post menopausal women on HRT. ??Clinical correlation is recommended. Note: ??The Pap test is not an accurate test for the screening of endometrial lesions and should not be used as a follow up in patients with clinical suspicion of endometrial pathology. ? Document reviewed and electronically signed by: ? JOHN Feliz(ASCP) ? Report Date: ??08/08/2006 10:58 End of Report JEY MONTEZ 08/03/2006 08/06/2006 Codie Wayne NP PATHOLOGY ORDERABLE S Performing Organization Address City/State/[facility] Co de Phone Number [facility] [address] [place] [address] documented in this encounter Visit Diagnoses Not on filedocumented in this encounter Care Teams Metal Rolling Mill Operator Relationship Specialty Start Date End Date Ca Leggett MD PCP - General 09/07/08 12/04/10 documented as of this encounter
--- OUTSIDE RECORDS SUMMARY | 2023-11-09 16:51 | XMS_ITS | Encounter Summary ---
Author Organization [facility] Address [address] [place] [address] Care Team Providers Care Rotor Winder Name Role Phone Unavailable Primary Care Provider Unavailabl e Encounter Details Date Type Department Care Team (Late st Contact Info) Description 01/28/1999 23:17 EDT Hospital Encounter [facility] - Other [address] [place] [address] Ruth Agarwal MD [address] [facility] [address] [place] [phone] Unknown, Provider, Social History Tobacco Use Types [...]
--- OUTSIDE RECORDS SUMMARY | 2023-11-09 16:51 | XMS_ITS | Encounter Summary ---
Author Organization [facility] Address [address] [place] [address] Care Team Providers Care Field Coil Winder Name Role Phone Suleiman Zambrano PA-C Primary Care Provider + Encounter Details Date Type Department Care Team ([facility] st Contact Info) Description 04/30/2012 6:57 EST - 04/30/2012 23:59 EST Hospital Encounter [address] [place] [address] Nick iDmas MD [address] [place] [phone] Discharge Disposition: Home or Self Care Social [...] on file documented as of this encounter Medications at Time of Discharge Medication Sig Dispensed Refills Start Date End Date KETOROLAC TROMETHAMINE (KETOROLAC ORAL) Take by mouth every 6 hours. 10/23/2016 omeprazole (PRILOSEC) 20 mg capsule Take 20 mg by mouth daily. 10/23/2016 documented as of this encounter Discharge Disposition Disposition Code Departure Means Destination Home or Self Half-Way documented in this encounter Plan of Treatment Not on file documented as of this encounter Visit Diagnoses Not on filedocumented in this encounter Care Teams Field Coil Winder Relationship Specialty Start Date End Date Suleiman Zambrano PA-C [address] [place] [phone] PCP - General 04/05/12 10/22/16 documented as of this encounter
--- OUTSIDE RECORDS SUMMARY | 2023-11-09 16:51 | XMS_ITS | Encounter Summary ---
Author Organization [facility] Address [address] [place] [address] Care Team Providers Care Project Economist Name Role Phone Odalys Hanley MD Primary Care Provider [phone] Encounter Details Date Type Department Care Team (Late st Contact Info) Description 02/02/2017 Orders Only [facility] Spine Program - [address] [address] Nick Gomez PA-C [address] [place] [address] [place] [address] Low back pain, unspecified back pain laterality, unspecified chronicity, with sciatica presence unspecified (Primary Dx) Social History Tobacco Use Types [...] as of this encounter Visit Diagnoses Diagnosis Low back pain, unspecified back pain laterality, unspecified chronicity, with sciatica presence unspecified- Primary documented in this encounter Care Teams Project Economist Relationship Specialty Start Date End Date Odalys Hanley MD PCP - General 12/06/16 02/05/17 documented as of this encounter
--- OUTSIDE RECORDS SUMMARY | 2023-11-09 16:51 | XMS_ITS | Encounter Summary ---
Author Organization [facility] Address [address] [place] [address] Care Team Providers Care Cuff Setter Overlock Name Role Phone Suleiman Zambrano PA-C Primary Care Provider + Reason for Visit * Reason Comments Back Pain Encounter Details Date Type Department Care Team ([facility] st Contact Info) Description 04/30/2012 11:30 EST Office Visit [facility] Spine Program - [address] [place] [address] Nick Gomez PA-C [address] [place] [address] [place] [address] Low back pain (Primary Dx) Social History Tobacco Use Types Packs/Day Years Used Date Smoking Tobacco: Some Days Alcohol Use Standard Drinks/Week Comments Yes 0 (1 standard drink = 0.6 oz pur e alcohol) Sex and Gender Information Value Date Recorded Sex Assigned at Not on file Gender Identity Female 05/16/2019 9:18 EST Sexual Orientation Not on file documented as of this encounter Progress Notes * Nick Gomez PA - 04/30/2012 1156 EST Aydee was last seen with back and right lower extremity symptoms in an L5-S1 distribution. Since ourlast visit, she has undergone an MRI of the LS spine and presents today to review that exam. Overall, she states her symptoms are unchanged. OBJECTIVE: MRI of the LS spine dated 04/28/2012 sagittal images reveal disk degeneration of 3-4 reflecting a decreased signal intensity. No herniation at 4- 5. She has a 40% loss in height at that level with a disk protrusion that is central, very small, and no sign of nerve root impingement. Mild facet arthropathy at this level. At 5-1 a mild broad-based disk bulge, no herniation, no nerve impingement, and mild facet arthropathy and pars defects at this level. ASSESSMENT: A 47-year-old female with back pain, likely musculoskeletal/diskogenic component of facet arthropathy. Lower extremity symptoms not concordant with her MRI. Difficult to ascertain the source of her lower extremity symptoms. It is possible that in the past she did have a herniation that has resolved and she has been left with a chronic radiculopathy that is possible. Another possibility would be a peripheral neuropathy that is generating her leg symptoms. PLAN: 1. At this point, I would suggest activity as tolerated without limitation. Pain management as per primary doctor. 2. If you wished to pursue lower extremity symptoms further would recommend an EMG nerve conductionstudy to rule out peripheral neuropathy as a potential source of her discomfort. 3. At this point, I have little else to offer and we will follow up on a p.r.n. basis. documented in this encounter Plan of Treatment Not on file documented as of this encounter Visit Diagnoses Diagnosis Low back pain- Primary Lumbago documented in this encounter Care Teams Cuff Setter Overlock Relationship Specialty Start Date End Date Suleiman Zambrano PA-C [address] [place] [phone] PCP - General 04/05/12 10/22/16 documented as of this encounter
--- OUTSIDE RECORDS SUMMARY | 2023-11-09 16:51 | XMS_ITS | Encounter Summary ---
Author Organization [facility] Address [address] [place] [address] Care Team Providers Care Supervisor Assembly Room Name Role Phone Ca Leggett MD Primary Care Provider Unavailable Encounter Details Date Type Department Care Team ([facility] Contact Info) Description 11/06/2002 Results Only [facility] [address] [place] [address] Aime Haider MD Social History Tobacco Use Types Packs/Day Years Used Date Smoking Tobacco: Never Assessed Sex and Gender Information Value Date Recorded Sex Assigned at Not on file Gender Identity Female 05/16/2019 9:18 EST Sexual Orientation Not on file documented as of this encounter Plan of Treatment Not on file documented as of this encounter Procedures Procedure Name Priority Date/Time Associated Diagnosis Comments CYTOPATHOLOGY Routine 11/06/2002 0:00 EDT documented in this encounter Results * CYTOPATHOLOGY (11/06/2002 0:00 EDT) Pathology Report: CYTOPATHOLOGY REPORT Reports generated via electronic interface contain original data; however they are lacking the format of the original report. Caution should be taken when reading/interpreti ng unformatted reports. Name: ? JACKIE AYDEE ? Accession #: ? [id number] : ? 1965 (Age: 37) ??F ?Collect Date: ? 11/06/2002 Location: ? [facility] ? Receive Date: ? 11/10/2002 Provider: ?AIME HAIDER MD Copy to: ? Specimen/Source: ?ThinPrep Pap Test, Cervix/Endocervix Last Menstrual Period: ? Other: ? HPVA - HPV testing requested if ASC-US on the current ThinPrep Pap test. ? SPECIMEN ADEQUACY ? Satisfactory for Evaluation - transformation zone component present GENERAL CATEGORIZATION ? Negative for Intraepithelial Lesion or Malignancy ? Document reviewed and electronically signed by: ? MUSA Garcia(ASCP) ? Report Date: ??11/13/2002 07:24 End of Report [facility] 11/06/2002 11/10/2002 Aime Haider MD PATHOLOGY ORDERABLES [facility] [address] [place] [address] documented in this encounter Visit Diagnoses Not on filedocumented in this encounter Care Teams Supervisor Assembly Room Relationship Specialty Start Date End Date Ca Leggett MD PCP - General 09/07/08 12/04/10 documented as of this encounter
--- OUTSIDE RECORDS SUMMARY | 2023-11-09 16:51 | XMS_ITS | Encounter Summary ---
Author Organization [facility] Address [address] [place] [address] Care Team Providers Care Spinneret Cleaner Name Role Phone Odalys Hanley MD Primary Care Provider [phone] Porsha Louise ND Primary Care Provider Malina matamoros Reason for Visit * Reason Onset Date Comments Appointment Related 12/06/2016 Office is as truman for copy of note from 10/23/16 visit to be faxed. Encounter Details Date Type Department Care Team ([facility] Contact Info) Description 12/06/2016 Telephone [facility] Rheumatology & Immunology - [address] [address] Carl Flood Chi, MD [address] [place] [address], [address] [place] [address] Appointment Related (Office is asking for copy of note from 10/23/16 visit to be faxed.) Social History Tobacco Use Types Packs/Day Years [...] Yes 10/23/2016 documented as of this encounter Miscellaneous Notes * Telephone Encounter - Jessi Boyd - 12/06/2016 1227 EDT NOTE * Telephone Encounter - Cassandra Grady - 12/06/2016 1129 EDT Reason for Call: Appointment Related (Office is asking for copy of note from 10/23/16 visit to be faxed.) Summary/Symptoms: Please fax notes from 10/23/16 visit to [facility]- PCP office. Cassandra Grady 12/06/2016 11:29 documented in this encounter Plan of Treatment Not on file documented as of this encounter Visit Diagnoses Not on filedocumented in this encounter Care Teams Spinneret Cleaner Relationship Specialty Start Date End Date Odalys Hanley MD PCP - General 12/06/16 02/05/17 Porsha Louise ND [facility] [place] [place] [address] PCP - General 02/06/17 08/28/17 documented as of this encounter
--- OUTSIDE RECORDS SUMMARY | 2023-11-09 16:51 | XMS_ITS | Encounter Summary ---
Author Organization [facility] Address [address] [place] [address] Care Team Providers Care Ammunition Storekeeper Name Role Phone Ca Leggett MD Primary Care Provider Unavailable Encounter Details Date Type Department Care Team ([facility] Contact Info) Description 03/07/2001 Results Only [facility] - Maple conversion [address] [place] [address] Dewayne Cunningham MD [address] [place] [phone] Social History Tobacco Use Types Packs/Day Years Used Date Smoking Tobacco: Never Assessed Sex and Gender Information Value Date Recorded Sex Assigned at Not on file Gender Identity Female 05/16/2019 9:18 EST Sexual Orientation Not on file documented as of this encounter Plan of Treatment Not on file documented as of this encounter Procedures Procedure Name Priority Date/Time Associated Diagnosis Comments CYTOPATHOLOGY Routine 03/07/2001 0:00 EST documented in this encounter Results * CYTOPATHOLOGY (03/07/2001 0:00 EST) Pathology Report: CYTOPATHOLOGY REPORT Reports generated via electronic interface contain original data; however they are lacking the format of the original report. Caution should be taken when reading/interpreti ng unformatted reports. Name: ? MEJIAAYDEE SMITH ? Accession #: ? [id number] : ? 1965 (Age: 36) ??F ?Collect Date: ? 03/07/2001 Location: ? [facility] ? Receive Date: ? 03/11/2001 Provider: ?DEWAYNE CUNNINGHAM MD Copy to: ? Specimen/Source: ?Conventional Pap Test, Vagina/Endocervix Last Menstrual Period: ? 22 days ago ? SPECIMEN ADEQUACY ? Satisfactory for evaluation. GENERAL CATEGORIZATION ? Within Normal Limits ? Document reviewed and electronically signed by: ? Mena Amador, [place](ASCP) ? Report Date: ??03/13/2001 09:01 End of Report [facility] 03/07/2001 03/11/2001 Dewayne Cunningham MD PATHOLOGY ORDERABLE [facility] [address] [place] [address] documented in this encounter Visit Diagnoses Not on filedocumented in this encounter Care Teams Ammunition Storekeeper Relationship Specialty Start Date End Date Ca Leggett MD PCP - General 09/07/08 12/04/10 documented as of this encounter
--- OUTSIDE RECORDS SUMMARY | 2023-11-09 16:51 | XMS_ITS | Encounter Summary ---
Author Organization [facility] Address [address] [place] [address] Care Team Providers Care Manganese Breaker Name Role Phone Porsha Louise ND Primary Care Provider Malina amtamoros Reason for Visit * Reason Onset Date Comments Discuss Test Results 03/23/2017 xray done a month ago Encounter Details Date Type Department Care Team ([facility] Contact Info) Description 03/23/2017 Telephone [facility] Rheumatology & Immunology - [address] [address] Carl Flood Chi, MD [address] [place] [address], [address] [place] [address] Discuss Test Results (xray done a month ago) Social History Tobacco Use Types Packs/Day Years [...] visiting a doctor's office or shopping? No 02/06/2017 Cognitive Status Response Date of Assessm ent Because of a physical, menta l, or emotional condition, does this person have serious difficulty concentrating, remembering, or making decisions? Yes 02/06/2017 documented as of this encounter Miscellaneous Notes * Telephone Encounter - Ailin Renteria RN - 03/23/2017 1557 EST Spoke with patient. She did not have an x-ray a month ago. Patient was referring to the x-rays thatshe had in October. I reviewed the results with her as well as the letter that Dr. Flood wrote her. Patient asks that we fax her office note and letter to her physical Therapist at [facility] in [place], [place]. * Telephone Encounter - Tiffany Brewster V. - 03/23/2017 1433 EST Reason for Call: Discuss Test Results (xray done a month ago) Summary/Symptoms: Patient would like to have her xray results from about a month ago Tiffany Brewster 03/23/2017 14:33 documented in this encounter Plan of Treatment Not on file documented as of this encounter Visit Diagnoses Not on filedocumented in this encounter Care Teams Manganese Breaker Relationship Specialty Start Date End [place] [address] PCP - General 02/06/17 08/28/17 documented as of this encounter
--- OUTSIDE RECORDS SUMMARY | 2023-11-09 16:51 | XMS_ITS | Encounter Summary ---
Author Organization [facility] Address [address] [place] [address] Care Team Providers Care Stemhole Borer Name Role Phone Unavailable Primary Care Provider Unavailabl e Encounter Details Date Type Department Care Team (Late st Contact Info) Description 09/23/1999 20:30 EDT Hospital Encounter [facility] - Other [address] [place] [address] Maury Agarwal MD [address] [facility] [address] [place] [phone] Unknown, Provider, Social History Tobacco Use Types [...] Procedure Name Priority Date/Time Associated Diagnosis Comments LIPID PROFILE (INCLUDES CHOLESTEROL, TRIGLYCERIDES, HDL, LDL) Routine 09/23/1999 10:25 EDT COMPREHENSIVE METABOLIC PANEL (CMP) Routine 09/23/1999 10:25 EDT CYTOPATHOLOGY Routine 09/23/1999 0:00 EDT documented in this encounter Results * (ABNORMAL) LIPID PROFILE (INCLUDES CHOLESTEROL, TRIGLYCERIDES, HDL, LDL) (09/23/1999 10:25 EDT) Cholesterol 239 mg/dl [facility] Comment: Desirable:<200 Borderline:200-239 High Risk:>[id number] Triglycerides 264(H) 35 - 160 mg/dl [facility] HDL 46 mg/dl [facility] Comment: Highly Desirable:>60 Desirable:35-60 High Risk:<35 LDL, Calculated 140 mg/dl [facility] Comment: Desirable:<130 Borderline:130-159 High Risk:>iu=[id number] Chol/HDL Ratio 5.2 [facility] 09/23/1999 10:2 5 EDT 09/23/1999 19:52 EDT Maury Agarwal MD CHEMISTRY & BLOOD GA S ORDERABLES Performing Organization Address City/State/[facility] Co de Phone Number [facility] [address] [place] [address] * COMPREHENSIVE METABOLIC PANEL (09/23/1999 10:25 EDT) Potassium 3.9 3.5 - 5.0 mEq/L [facility] Sodium 142 136 - 145 mEq/L [facility] Chloride 104 96 - 110 mEq/L [facility] CO2 24 24 - 30 mEq/L [facility] Total Alkaline Phosphatase 70 38 - 126 U/L [facility] Bilirubin, Total 0.4 0.2 - 1.3 mg/dl [facility] AST 16 8 - 50 U/L [facility] ALT 16 15 - 75 U/L [facility] Albumin 3.8 3.0 - 5.5 g/dl [facility] Total Protein 7.2 6.0 - 8.5 g/dl [facility] Creatinine 0.7 0.7 - 1.5 mg/dl [facility] BUN 12 10 - 26 mg/dl [facility] Calcium 9.0 8.5 - 10.5 mg/dl [facility] Calculated Calcium 9.6 8.5 - 10.5 mg/dl [facility] Glucose, Serum 92 70 - 110 mg/dl [facility] Albumin/Globulin Ratio 1.1 [facility] 09/23/1999 10:2 5 EDT 09/23/1999 19:52 EDT Maury Agarwal MD CHEMISTRY & BLOOD GA S ORDERABLES [facility] [address] [place] [address] * CYTOPATHOLOGY (09/23/1999 0:00 EDT) Pathology Report: CYTOPATHOLOGY REPORT Reports generated via electronic interface contain original data; however they are lacking the format of the original report. Caution should be taken when reading/interpreti ng unformatted reports. Name: ? AYDEE MEJIA ? Accession #: ? [id number] : ? 1965 (Age: 34) ??F ?Collect Date: ? 09/23/1999 Location: ? [facility] ? Receive Date: ? 09/27/1999 Provider: ?MAURY AGARWAL MD Copy to: ? Specimen/Source: ?ThinPrep Pap Test, Cervix/Endocervix Last Menstrual Period: ? 09/08/99 Previous Gynecologic Pathology: ? Yes: 2 Years Ago. ? SPECIMEN ADEQUACY ? Satisfactory for evaluation. GENERAL CATEGORIZATION ? Within Normal Limits ? Document reviewed and electronically signed by: ? Jessi Stevens, SCT(ASCP) ? Report Date: ??09/29/1999 08:24 End of Report [facility] 09/23/1999 09/27/1999 Maury Agarwal MD PATHOLOGY ORDERABLES Performing Organization Address City/State/[facility] Co de Phone Number [facility] [address] [place] [address] documented in this encounter Visit Diagnoses Not on filedocumented in this encounter
--- OUTSIDE RECORDS SUMMARY | 2023-11-09 16:51 | XMS_ITS | Encounter Summary ---
Author Organization [facility] Address [address] [place] [address] Care Team Providers Care Manager Trainee Name Role Phone Suleiman Zambrano PA-C Primary Care Provider + Reason for Visit * Reason Onset Date Comments Discuss Possible Transfer 08/07/2016 RCT Update 08/07/2016 RCT paperwork se nt wrong office Encounter Details Date Type Department Care Team ([facility] Contact Info) Description 08/07/2016 Telephone [facility] Rheumatology & Immunology - [address] [phone] Carl Flood Chi, MD [address] [facility], [address] [place] [address] Discuss Possible Transfer (RCT [phone]); Update (RCT paperwork sent wrong office) Social History Tobacco Use Types Packs/Day Years [...] encounter Miscellaneous Notes * Telephone Encounter - Yusra Zelaya RN - 08/09/2016 0957 EDT Re-faxed to [place]. * Telephone Encounter - Jasmeet Langley - 08/09/2016 0840 EDT Darya called from [facility] regarding the form for transportation for Aydee and it was sent to the wrong office. Patient gave me the wrong fax. It needs to go to [facility]. Darya is faxingform back. I now have the correct fax for [place] [phone] * Telephone Encounter - Jasmeet Langley - 08/07/2016 1318 EDT Patient is stating please call RTC @ [phone] as this is needed for her to make appointment. Need to be called so they can send over paperwork for Medicare /Medicaid purposes for medical necessity . Need to call number tell them Aydee has an appointment with our practice. Call Patient if you have any questions. documented in this encounter Plan of Treatment Not on file documented as of this encounter Visit Diagnoses Not on filedocumented in this encounter Care Teams Manager Trainee Relationship Specialty Start Date End Date Suleiman Zambrano PA-C [address] [place] [phone] PCP - General 04/05/12 10/22/16 documented as of this encounter
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
--- OUTSIDE RECORDS SUMMARY | 2023-11-09 16:51 | XMS_ITS | Encounter Summary ---
Author Organization [facility] Address [address] [place] [address] Care Team Providers Care Warp Doffer Name Role Phone Ca Leggett MD Primary Care Provider Unavailable Encounter Details Date Type Department Care Team ([facility] st Contact Info) Description 05/26/2010 Results Only [facility] - [facility] ([facility]) [address], [place] [address] Zoraida Ordoñez MD [address], [place] [id number] Social History Tobacco Use Types Packs/Day Years Used Date Smoking Tobacco: Never Assessed Sex and Gender Information Value Date Recorded Sex Assigned at Not on file Gender Identity Female 05/16/2019 9:18 EST Sexual Orientation Not on file documented as of this encounter Plan of Treatment Not on file documented as of this encounter Procedures Procedure Name Priority Date/Time Associated Diagnosis Comments CYTOPATHOLOGY Routine 05/26/2010 0:00 EST documented in this encounter Results * CYTOPATHOLOGY (05/26/2010 0:00 EST) Pathology Report: CYTOPATHOLOGY REPORT ? Reports generated via electronic interface contain original data; ? however they are lacking the format of the original report. ? Caution should be taken when reading/interpreti ng unformatted reports. ? Name: ? MEJIA, AYDEE ? Accession #: ? [id number] ? : ? 1965 (Age: 45) ??F ?Collect Date: ? 05/26/2010 ? Location: ? [facility] ? Receive Date: ? 05/30/2010 ? Provider: ZORAIDA BERRIAN MD ? Copy to: ? Final Report ? SPECIMEN ADEQUACY ? Satisfactory for Evaluation ? - transformation zone component present ? GENERAL CATEGORIZATION ? Negative for Intraepithelial Lesion or Malignancy ? Last Menstural Period: 04/10/2010 ? Specimen/Source: ??Pap Test, Cervix/Endocervix, ThinPrep Imaging System with ? manual evaluation ? Document reviewed and electronically signed by: ? Antonio Toledo, [place](ASCP) ? Report ??Date: 05/31/2010 12:56 ? HPV with Pap Test ? Date Ordered: ? 05/31/2010 ? Status: ?? Signed Out ?Date Complete: ? 06/06/2010 ? By: ??System Interface ? Date Reported: ? 06/06/2010 ? Interpretation ? RESULT: Negative for HPV types 16, 18, 31, 33, 35, 39, 45, 51, 52, ? 56, 58, 59, and 68. ? Comments ? Document reviewed and electronically signed by: ? System Interface ? Report date: 06/06/2010 ? By the signature above, the attending physician certifies that he/she has ? personally conducted a gross and/or microscopic examination of the described ? specimens and rendered or confirmed the above diagnosis. ? End of Report ? [facility] 05/26/2010 05/30/2010 Zoraida Ordoñez MD PATHOLOGY ORDERABLES [facility] [address] [place] [address] documented in this encounter Visit Diagnoses Not on filedocumented in this encounter Care Teams Warp Doffer Relationship Specialty Start Date End Date Ca Leggett MD PCP - General 09/07/08 12/04/10 documented as of this encounter
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
--- OUTSIDE RECORDS SUMMARY | 2023-11-09 16:51 | XMS_ITS | Encounter Summary ---
Author Organization [facility] Address [address] [place] [address] Care Team Providers Care Sheet Metal Helper Name Role Phone Porsha Louise ND Primary Care Provider Malina matamoros Reason for Referral * Consult (Routine) - Specialty Report Received Specialty Diagnoses / Procedures Referred By Mayda jalloh Referred To Contact Pain Medicine Diagnoses Chronic bilateral low back pain without sciatica Nick Gomez PA-C [address] [place] [address] [place] [address] [facility] [address] [place] [address] Referral ID Status Reason Start Date Expiration Date Visits Requested Visits Authorized [id number] Specialty Report Received Specialty Services Required 7 1 1 Question Answer Reason for Request: chronic low back pain your opinion as to whether injections would be helpful here Has the patient had diagnostic studies? Yes Diagnotic Studies: MRI/CT, X-Ray Where can the diagnostic studies be viewed: [facility] Have other specialty consultations been completed for this pain compliant? Yes We provide consultative services. We do not assume the role of prescribing physician for this therapy. Please help us understand your area of interest by selecting from the common topics below: Yes Should opioids be initiated on this patient? No Should opioids be continued on this patient? No Reason for Visit * Reason Onset Date Comments Appointment Related 03/20/2017 Encounter Details Date Type Department Care Team ([facility] Contact Info) Description 03/20/2017 Telephone [facility] Spine Program - [place] [facility] [place] [address] Nick Gomez PA-C [address] [facility] [place] [address] Appointment Related Social History Tobacco [...] encounter Miscellaneous Notes * Telephone Encounter - Nick Gomez PA - 03/20/2017 1145 EST I spoke with Aydee today and noted that her lumbar MRI reveals disc degeneration at L4-5 with arthritis and that the prior disc bulge at this level has resolved. She also has facet arthritis at L5-S1 and these changes could account for her low back pain. I also mentioned that her thoracic MRI reveals only mid disc degeneration and is otherwise normal. At this point we agreed to move forward with apain service consult to consider injections. She will follow up PRN * Telephone Encounter - Pretty Vazquez - 03/20/2017 1118 EST Patient had MRI on 03/15 had f/u same day, per patient when she asked when her f/u was that day the mri department told her she didn't have one. So she went home. She is not able to get back here due to not having transportation. Would like a call if at all possible. documented in this encounter Plan of Treatment Scheduled Referrals Name Type Priority Associated Diagnoses Order Schedule AMB CONS/FOLLOW UP PAIN INTERVENTIONAL Outpatient Referral Routine Chronic bilateral low back pain without sciatica Ordered: 03/20/2017 documented as of this encounter Visit Diagnoses Diagnosis Chronic bilateral low back pain without sciatica- Primary documented in this encounter Care Teams Sheet Metal Helper Relationship Specialty Start Date End Date Porsha Louise ND [facility] [place] [address] PCP - General 02/06/17 08/28/17 documented as of this encounter
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
--- OUTSIDE RECORDS SUMMARY | 2023-11-09 16:51 | XMS_ITS | Encounter Summary ---
Author Organization [facility] Address [address] [place] [address] Care Team Providers Care Resource Room Teacher Name Role Phone Unavailable Primary Care Provider Unavailabl e Encounter Details Date Type Department Care Team (Latest Contact Info) Description 04/21/1999 10:57 EST - 04/21/1999 11:59 EST Hospital Encounter [facility] [address] [place] [address] Virgilio Israel MD Discharge Disposition: Auto Discharge Social History Tobacco Use Types Packs/Day Years Used Date Smoking Tobacco: Never Assessed Sex and Gender Information Value Date Recorded Sex Assigned at Not on file Gender Identity Female 05/16/2019 9:18 EST Sexual Orientation Not on file documented as of this encounter Discharge Disposition Disposition Code Departure Means Destination Auto Discharge documented in this encounter Plan of Treatment Not on file documented as of this encounter Procedures Procedure Name Priority Date/Time Associated Diagnosis Comments SURGICAL PATHOLOGY Routine 04/21/1999 13 :51 EST documented in this encounter Results * SURGICAL PATHOLOGY (04/21/1999 13:51 EST) Pathology Report: SURGICAL PATHOLOGY REPORT Reports generated via electronic interface contain original data; however they are lacking the format of the original report. Caution should be taken when reading/interpreti ng unformatted reports. Name: ? MEJIAAYDEE SMITH ? Accession #: ? [id number] ? : ? 1965 (Age: 34) ??F ? Collect Date: ? 04/21/1999 ? Location: ?Receive Date: ? 04/21/1999 ? Provider: VIRGILIO ISRAEL MD Copy to: VIRGILIO THOMASON MD ? Final Pathologic Diagnosis: MICROSCOPIC DIAGNOSIS: ? 1. ??Antrum, biopsy: ? - Mild chronic gastritis with features suggestive of chemical ? gastritis. ? - Arthur stain negative for Helicobacter pylori-like ? organisms. ? 2. ??Esophagus, biopsy: ? - Chronic esophagitis. ??See comment. ? Comment: COMMENT: ? Although epithelial inflammatory cells are not identified, there ? is hyperplasia of the basal keratinocytes as well as elongation ? of the papillae which is consistent with chronic esophagitis. ? (Dr. White)/[facility] Document reviewed and electronically signed by: Conversion for KARELY WHITE Report ??Date: 04/25/1999 00:00 By the signature above, the attending physician certifies that he/she has personally conducted a gross and/or microscopic examination of the described specimens and rendered or confirmed the above diagnosis. Specimen(s) Received: TISSUE SUBMITTED: ? 1. Antrum ? 2. Distal esoph CLINICAL DATA: ? 1) nl R/O H pylori; 2) looks nl R/O GERD changes ? Gross Description: GROSS: ? Received in Hollande's fixative labelled Nat and antrum ? are two, thomas-gan, irregular, 0.3 x 0.2 x 0.2 cm, soft tissue ? fragments. ??The specimen is entirely submitted as (A). ? Received in Hollzeinae's fixative labelled Nat and esophagus ? are three, thomas-gan, irregular, 0.2 x 0.2 x 0.2 cm, soft tissue ? fragments. ??The specimen is entirely submitted as (B). ??(M. ? Vipin)/jlucia ? End of Report [facility] 04/21/1999 13:5 1 EST 04/21/1999 13:52 EST Virgilio Israel MD PATHOLOGY ORDERABLES [facility] [address] [place] [address] documented in this encounter Visit Diagnoses Not on filedocumented in this encounter
--- OUTSIDE RECORDS SUMMARY | 2023-11-09 16:51 | XMS_ITS | Encounter Summary ---
Author Organization [facility] Address [address] [place] [address] Care Team Providers Care Artificial Breeding Ranch Supervisor Name Role Phone Unavailable Primary Care Provider Unavailabl e Encounter Details Date Type Department Care Team (Latest Contact Info) Description 03/08/1999 22:00 EST Hospital Encounter [facility] - Other [address] [place] [address] Virgilio Israel MD Unknown, Provider, Discharge Disposition: Auto Discharge Social History Tobacco [...] Procedure Name Priority Date/Time Associated Diagnosis Comments PTT Routine 03/08/1999 15:00 EST PROTIME Routine 03/08/1999 15:00 EST COMPLETE BLOOD COUNT Routine 03/08/1999 15:00 EST LIPASE Routine 03/08/1999 15:00 EST GGT Routine 03/08/1999 15:00 EST AMYLASE Routine 03/08/1999 15:00 EST HEPATIC FUNCTION PANEL (ALB,ALK PHOS,ALT,AST,DBIL,T OT MIKE,TOT PROT) Routine 03/08/1999 15:00 EST documented in this encounter Results * PTT (03/08/1999 15:00 EST) PTT 22 20 - 31 secs [facility] Comment:Therapeutic Heparin range: 58-100 seconds 03/08/1999 15:0 0 EST 03/08/1999 17:59 EST Virgilio Israel MD HEMATOLOGY & PF4 ORD ERABLES Performing Organization Address [facility] de Phone Number [facility] [address] [place] [address] * PROTIME (03/08/1999 15:00 EST) Pro Time 12.0 11.7 - 13.4 secs [facility] I.N.R. 0.9 0.8 - 1.2 Ratio [facility] Comment: Moderate Intensity Coumadin INR = 2.0-3.0 Adjustments in anticoagulant therapy dose should be based upon the INR and NOT the Pro Time 03/08/1999 15:0 0 EST 03/08/1999 17:59 EST Virgilio Israel MD HEMATOLOGY & PF4 ORD ERABLES Performing Organization Address [facility] Phone Number [facility] [address] [place] [address] * LIVER FUNCTION TESTS (03/08/1999 15:00 EST) Albumin 3.9 3.0 - 5.5 g/dl [facility] Total Alkaline Phosphatase 64 38 - 126 U/L [facility] ALT 24 15 - 75 U/L [facility] AST 17 8 - 50 U/L [facility] Unconjugated Bilirubin 0.1 0.1 - 1.1 mg/dl [facility] Conjugated Bilirubin 0.0 0.0 - 0.3 mg/dl [facility] Bilirubin, Total 0.5 0.2 - 1.3 mg/dl [facility] 03/08/1999 15:0 0 EST 03/08/1999 17:59 EST Virgilio Israel MD CHEMISTRY & BLOOD GA S ORDERABLES Performing Organization Address [facility] Co de Phone Number [facility] [address] [place] [address] * LIPASE (03/08/1999 15:00 EST) Lipase 115 0 - 210 U/L [facility] 03/08/1999 15:0 0 EST 03/08/1999 17:59 EST Virgilio Israel MD CHEMISTRY & BLOOD GA S ORDERABLES Performing Organization Address [facility] Co de Phone Number [facility] [address] [place] [address] * GGT (03/08/1999 15:00 EST) GGT 41 12 - 43 U/L [facility] 03/08/1999 15:0 0 EST 03/08/1999 17:59 EST Virgilio Israel MD CHEMISTRY & BLOOD GA S ORDERABLES Performing Organization Address [facility] Co de Phone Number [facility] [address] [place] [address] * (ABNORMAL) HEMAGRAM (03/08/1999 15:00 EST) WBC 8.42 4.0 - 12.4 K/cmm [facility] RBC 4.28 3.86 - 5.04 M/cmm [facility] Hemoglobin 13.9 11.6 - 15.2 gm/dl [facility] HCT 40.4 34.9 - 44.4 % [facility] MCV 94 81 - 98 fl [facility] MCH 32.6 26.7 - 33.3 pg [facility] MCHC 34.5 32.1 - 35.9 gm/dl [facility] PLT 333(H) 141 - 320 K/cmm [facility] RDW-CV 11.8 11.7 - 14.6 % [facility] 03/08/1999 15:0 0 EST 03/08/1999 17:59 EST Virgilio Israel MD HEMATOLOGY & PF4 ORD ERABLES Performing Organization Address [facility] Co de Phone Number [facility] [address] [place] [address] * AMYLASE (03/08/1999 15:00 EST) Amylase 52 30 - 110 U/L [facility] 03/08/1999 15:0 0 EST 03/08/1999 17:59 EST Virgilio Israel MD CHEMISTRY & BLOOD GA S ORDERABLES Performing Organization Address [facility] Co de Phone Number [facility] [address] [place] [address] documented in this encounter Visit Diagnoses Not on filedocumented in this encounter
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
--- OUTSIDE RECORDS SUMMARY | 2023-11-09 16:51 | XMS_ITS | Encounter Summary ---
Author Organization [facility] Address [address] [place] [address] Care Team Providers Care Outsewer Name Role Phone Porsha Louise ND Primary Care Provider Malina matamoros Encounter Details Date Type Department Care Team ([facility] Contact Info) Description 03/15/2017 10:54 EST - 03/15/2017 23:59 EST Hospital Encounter [facility] - [address] [place] [address] Carl Flood Chi, MD [address] [facility] [place] [phone] Discharge Disposition: Auto Discharge Social History Tobacco [...] as of this encounter Discharge Diagnoses Diagnosis M51.14 Intervertebral disc disorders with radiculopathy, thoracic region-M51.14[ICD-10-CM] M25.78 Osteophyte, vertebrae-M25.78[ICD-10-CM] M51.36 Other intervertebral disc degeneration, lumbar region-M51.36[ICD-10-CM] documented in this encounter Medications at Time of Discharge Medication Sig Dispensed Refills Start Date End Date gabapentin (NEURONTIN) 800 mg tablet Take 3,600 mg by mouth 2 times daily. VALACYCLOVIR HCL (VALTREX ORAL) Take 1 Tab by mouth as needed. ranitidine (ZANTAC) 150 mg tablet Take 150 mg by mouth daily. 09/08/2022 documented as of this encounter Discharge Disposition Disposition Code Departure Means Destination Auto Discharge Home documented in this encounter Plan of Treatment Not on file documented as of this encounter Visit Diagnoses Not on filedocumented in this encounter Care Teams Outsewer Relationship Specialty Start Date [place] [address] PCP - General 02/06/17 08/28/17 documented as of this encounter
--- OUTSIDE RECORDS SUMMARY | 2023-11-09 16:51 | XMS_ITS | Encounter Summary ---
Author Organization [facility] Address [address] [place] [address] Care Team Providers Care Mold Capper Helper Name Role Phone Suleiman Zambrano PA-C Primary Care Provider + Reason for Visit * Reason Comments Back Pain Encounter Details Date Type Department Care Team ([facility] st Contact Info) Description 04/12/2012 Telephone [facility] Total Joint [facility] [place] [address] Nick Gomez PA-C [address] [place] [address] [place] [address] Back Pain Social History Tobacco Use Types Packs/Day Years [...] encounter Miscellaneous Notes * Telephone Encounter - Kalpana Aguilar - 04/12/2012 1211 EST Called and spoke with patient giving MRI and follow up appointment information. MRI is on [place] [facility] 04/30/2011@ 730, check in at 700. Follow up appointment with [facility] is 04/30/2011@ 1130, check in at 1115. Patient understands completely and is happy with this plan. documented in this encounter Plan of Treatment Not on file documented as of this encounter Visit Diagnoses Not on filedocumented in this encounter Care Teams Mold Capper Helper Relationship Specialty Start Date End Date Suleiman Zambrano PA-C [address] [place] [phone] PCP - General 04/05/12 10/22/16 documented as of this encounter
--- OUTSIDE RECORDS SUMMARY | 2023-11-09 16:51 | XMS_ITS | Encounter Summary ---
Author Organization [facility] Address [address] [place] [address] Care Team Providers Care Photo Mask Processor Name Role Phone Porsha Louise ND Primary Care Provider Malina matamoros Reason for Visit * Reason Onset Date Comments Update 05/25/2017 Encounter Details Date Type Department Care Team ([facility] st Contact Info) Description 05/25/2017 Telephone [facility] Program - [address] [place] [address] Nick Gomez PA-C [facility] [place] [address] Update Social History Tobacco Use Types Packs/Day Years [...] encounter Miscellaneous Notes * Telephone Encounter - Pretty Vazquez - 05/25/2017 1602 EST Patient is in [place] and went to a new doctor for her back symptoms, she received additional information she would like to share with us, see if Jason has anything to put towards the additional information. She is scheduled for an injection in July that she will most likely keep at this point, she is not moving to [place] till January so she would like to get her pain managed before the move. I directed her to scheduling to schedule a 2 week f/u post injection. Letting her know if she were to cancel her injection that she can cancel her f/u. I asked her to call the place she went to to have them fax to us the information she would like us to review. documented in this encounter Plan of Treatment Not on file documented as of this encounter Visit Diagnoses Not on filedocumented in this encounter Care Teams Photo Mask Processor Relationship Specialty Start Date [place] [address] PCP - General 02/06/17 08/28/17 documented as of this encounter
--- OUTSIDE RECORDS SUMMARY | 2023-11-09 16:51 | XMS_ITS | Encounter Summary ---
Author Organization [facility] Address [address] [place] [address] Care Team Providers Care Band Machine Operator Name Role Phone Ca Leggett MD Primary Care Provider Unavailable Encounter Details Date Type Department Care Team ([facility] Contact Info) Description 12/01/2010 Results Only [facility] ([facility] [address] [place], [place] [id number] [place] [address] [place] [address],[address] [place] [address] Social History Tobacco Use Types Packs/Day Years [...] Date/Time Associated Diagnosis Comments SURGICAL PATHOLOGY Routine 12/01/2010 0:00 EDT documented in this encounter Results * SURGICAL PATHOLOGY (12/01/2010 0:00 EDT) Pathology Report: SURGICAL PATHOLOGY REPORT ? Reports generated via electronic interface contain original data; ? however they are lacking the format of the original report. ? Caution should be taken when reading/interpreti ng unformatted reports. ? Name: ? MEJIA, AYDEE ? Accession #: ? [id number] ? : ? 1965 (Age: 45) ??F ? Collect Date: ? 12/01/2010 ? Location: ? [facility] ? Receive Date: ? 12/02/2010 ? Provider: DACIA MARTI MD ? Copy to: PEDIRTO CARRILLO MD ? Final Pathologic Diagnosis: ? Endometrium, curettage: ? 1. ?Proliferative endometrium with focal disordered proliferation ? pattern. ? 2. ? No cytologic atypia identified. ? 3. ? Fragments of benign endocervical tissue with squamous metaplasia. ? Document reviewed and electronically signed by: ? KARELY WHITE MD ? Report ??Date: 12/05/2010 14:02 ? By the signature above, the attending physician certifies that he/she has ? personally conducted a gross and/or microscopic examination of the described ? specimens and rendered or confirmed the above diagnosis. ? Specimen(s) Received: ? Endometrial curettings ? Clinical History: ? Menorrhagia ? Gross Description: ? Received in formalin labelled Mejia, Aydee and endometrial curettings is a 3.0 x 2.5 x 0.5 cm aggregate of pink-thomas and thomas-red, focally hemorrhagic soft tissue fragments. ??The specimen is entirely submitted as (A1) and (A2). ??(L. ? Arango)/[facility] ? End of Report ? [facility] 12/01/2010 12/02/2010 8:5 9 EDT Dacia Marti MD PATHOLOGY ORDERABLES [facility] [address] [place] [address] documented in this encounter Visit Diagnoses Not on filedocumented in this encounter Care Teams Band Machine Operator Relationship Specialty Start Date End Date Ca Leggett MD PCP - General 09/07/08 12/04/10 documented as of this encounter
--- OUTSIDE RECORDS SUMMARY | 2023-11-09 16:51 | XMS_ITS | Encounter Summary ---
Author Organization [facility] Address [address] [place] [address] Care Team Providers Care Isotope Technologist Name Role Phone Porsha Louise ND Primary Care Provider Malina matamoros Reason for Referral * Radiology Services (Routine) - Closed Specialty Diagnoses / Procedures Referred By Mayda jalloh Referred To Contact Diagnoses Thoracic spine pain Procedures MR THORACIC SPINE WO CONTRAST Carl Flood Chi, MD [address] [place] [phone] Referral ID Status Reason Start Date Expiration Date Visits Re quested Visits Authorized [id number] Closed 02/14/2017 1 1 Reason for Visit * Reason Onset Date Comments Back Problem 02/13/2017 Appointment Related 02/13/2017 Returning Call 02/13/2017 to nurse Encounter Details Date Type Department Care Team (Late st Contact Info) Description 02/13/2017 Telephone [facility] Cardiology - [place] [address] [place] [address] Carl Flood Chi, MD [address] [place] [phone] Back Problem; Appointment Related; Returning Call (to nurse) Social History Tobacco Use Types Packs/Day Years [...] Telephone Encounter - Yusra Zelaya RN - 02/15/2017 1109 EST Discussed with patient. She is ok with date and time. She reports that her issues lying down are related to breathing, not pain. She says that she will just do the best she can, because when she laysflat she feels like something is comprssing her lung. Pain medication not needed. Patient verbalized understanding with no barriers noted. * Telephone Encounter - Carl Flood Chi, MD - 02/15/2017 1057 EST See if the patient feels she needs anything. Have pended 2 tabs of tramadol which she can take withtylenol. * Telephone Encounter - Yusra Zelaya RN - 02/15/2017 1023 EST Radiology was able to add thoracic exam on, but is concerned about patient's ability to lay that long (per order) and is questioning whether she will need pain medication. * Telephone Encounter - Yusra Zelaya RN - 02/15/2017 0855 EST Left message for MRI scheduling to discuss additional exam. * Telephone Encounter - Carl Flood Chi, MD - 02/14/2017 2354 EST Order for MRI of T spine placed. * Telephone Encounter - Daysi Wahl RN - 02/13/2017 1245 EST Spoke with patient. She said the patient accounts specialist was only looking at her lower back, and patient feels the problem is her mid-back. She has lumbar MRI appt 03/15. She asked if the MRI can be both lumbar and thoracic. Lying on her back on a hard surface is too painful to do it two different times. The plan below is copied and pasted from Orthopedic note 02/06/17: 1. MRI of LS spine 2. Follow up with me post. 3. [...] for evaluation and management of chronic pain. ?? This pt has called to say that she did not want to move forward with her MRI...she believes thatshe needs a thoracic MRI. We made it very clear that a thoracic MRI was not indicated. We asked herto begin PT immediately and it was not clear that she has started this yet. * Telephone Encounter - Odalys Martinez - 02/13/2017 1125 EST Reason for Call: Back Problem and Appointment Related Summary/Symptoms: The Pt would like some assistance with her current DR. DR Flood advised to have some back scans done so she is working with the [facility] but the provider isn't listening to heror her concerns. She would like to discuss Odalys Martinez 02/13/2017 11:25 documented in this encounter Plan of Treatment Not on file documented as of this encounter Procedures Procedure Name Priority Date/Time Associated Diagnosis Comments MR THORACIC SPINE WO CONTRAST Routine 03/15/2017 13:12 EST Thoracic spine pain documented in this encounter Results * MR THORACIC SPINE WO CONTRAST (03/15/2017 13:12 EST) Anatomical Region Laterality Modality Other 03/15/2017 13:1 2 EST 03/15/2017 13:47 EST Narrative 03/15/2017 13:47 EST MRI thoracic spine without gadolinium Clinical History: Chronic mid and lower back pain radiating to the legs Technique: Sagittal T1, T2 and T2 fat-saturated as well as axial T1 and T2 sequences were obtained through the thoracic spine. Thoracic spine findings: There is no acute fracture or malalignment of the thoracic spine. With the exception of T4 and T10 vertebral body hemangiomas, the marrow signal within the visualized lumbosacral spine is normal. The conus medullaris terminates normally. The cauda equina nerve roots are normal in caliber. There is no spinal canal or neural foraminal stenosis. A tiny right paracentral disc protrusion is present at the T5-6 level. Increased T2 and decreased T1 signal is present within the anterior superior aspect of the T7 vertebral body to the right of midline. The signal is associated with a prominent marginal osteophyte complex and Schmorl's node. Conclusion: Minimal T5-6 and T6-7 disc degeneration. No thoracic spinal canal or neural foraminal stenosis. Thoracic cord has normal signal intensity throughout. Procedure Note Rony Valencia MD - 03/15/2017 MRI thoracic spine without gadolinium Clinical History: Chronic mid and lower back pain radiating to the legs Technique: Sagittal T1, T2 and T2 fat-saturated as well as axial T1 and T2 sequences were obtained through the thoracic spine. Thoracic spine findings: There is no acute fracture or malalignment of the thoracic spine. With the exception of T4 and T10 vertebral body hemangiomas, the marrow signal within the visualized lumbosacral spine is normal. The conus medullaris terminates normally. The cauda equina nerve roots are normal in caliber. There is no spinal canal or neural foraminal stenosis. A tiny right paracentral disc protrusion is present at the T5-6 level. Increased T2 and decreased T1 signal is present within the anterior superior aspect of the T7 vertebral body to the right of midline. The signal is associated with a prominent marginal osteophyte complex and Schmorl's node. Conclusion: Minimal T5-6 and T6-7 disc degeneration. No thoracic spinal canal or neural foraminal stenosis. Thoracic cord has normal signal intensity throughout. Carl Flood MD IMG MRI ORDERABLES documented in this encounter Visit Diagnoses Diagnosis Thoracic spine pain- Primary Pain in thoracic spine documented in this encounter Care Teams Isotope Technologist Relationship Specialty Start Date [place] [address] PCP - General 02/06/17 08/28/17 documented as of this encounter
[2023-11-09 17:32] LABS: ALT 29 U/L (14-59); AST 16 U/L (15-37); Albumin 3.9 g/dL (3.4-5.0); Alkaline Phosphatase 91 U/L (46-116); Anion Gap 9.3 mmol/L (3-11); BUN 9 mg/dL (7-18); Bilirubin, Total 0.38 mg/dL (0.2-1.0); CO2 28.7 mmol/L (21.0-32.0); CREATININE 0.8 mg/dL (0.55-1.02); Calcium 9.5 mg/dL (8.5-10.1); Chloride 103 mmol/L (98-107); Glucose 106 mg/dL (74-106); Potassium 4.4 mmol/L (3.5-5.1); Sodium 141 mmol/L (136-145); Total Protein 7.3 g/dL (6.4-8.2); Vitamin B12 339 pg/mL (193-986); Vitamin D 25 Total 18.4 ng/mL (30-100)
[2023-11-09 17:39] LABS: Folate > 20.0 ng/mL (8.6-20.0)
[2023-11-09 17:47] LABS: Hemoglobin A1C 6.1 % (<5.7)
== END 2023-11-09 16:47 | disposition home or self-care (01) ==
LOC: NCHCN 16:46
PROVIDERS: PCP Nurse Practitioner Family; Visit Provider Nurse Practitioner Family
DX: E53.8 Deficiency of other specified B group vitamins (principal); E55.9 Vitamin D deficiency, unspecified; R73.03 Prediabetes; G60.9 Hereditary and idiopathic neuropathy, unspecified
CPT/HCPCS: 80053; 82306; 85027; 82607; 82746; 83036

== ENCOUNTER 2023-11-30 00:05 | Outpatient (CLI) | payer OTHER, MEDICAID, SELFPAY ==
--- OUTSIDE RECORDS SUMMARY | 2023-11-30 00:07 | XMS_ITS | Encounter Summary ---
[place] [address] Care Team Providers Care Boiler Operator Name Role Phone Justin Juarez MD Primary Care Provider [phone] Encounter Details Date Type Department Care Team (Late st Contact Info) Description 07/27/2023 Telephone [facility] [place] [phone] Mike Rock Social History Tobacco Use Types [...] PM EDT Office [place] [phone] Justin Sevilla MD [facility] [place] [address] 01/23/2024 2:00 PM EDT Office Visit [facility] [place] [phone] Kenneth Martin MD [facility] [place] [address] documented as of this encounter Goals Goal [...] on filedocumented in this encounter Care Teams Boiler Operator Relationship Specialty Start Date End Date Justin Juarez MD [address] [place] [address] PCP - General Family Medicine 12/29/22 documented as of this encounter
--- OUTSIDE RECORDS SUMMARY | 2023-11-30 00:07 | XMS_ITS | Encounter Summary ---
[place] [address] Care Team Providers Care Saw Sharpener Name Role Phone Justin Juarez MD Primary Care Provider [phone] Reason for Referral * Diagnostic Test (Routine) - Closed Specialty Diagnoses / Procedures Referred By Mayda t Referred To Contact Diagnoses Peripheral vascular disease, unspecified Procedures NOAH, legs, multiple levels Jacey Amador, JL [address] [place] [address] [facility] Vascular Lab [address] [address] Referral ID Status Reason Start Date Expiration Date V isits Requested Visits Authorized [id number] Closed Specialty Service Requested 11/13/2023 11/12/2024 1 1 Encounter Details Date Type Department Care Team (Latest Contact Info) Description 11/13/2023 Transcribe Orders eDH Incoming Referrals [phone] Jacey Amador APRN [address] [place] [employer], [place] [id number] Peripheral vascular disease, unspecified Social History Tobacco Use Types Packs/Day Years [...] PM EDT [place] [address] Justin Sevilla MD [facility] [place] [address] 01/23/2024 2:00 PM EDT Office Visit [place] [address] Kenneth Martin MD [facility] [place] [address] documented as of this encounter Goals Goal [...] no gulping documented as of this encounter Results * NOAH, legs, multiple levels (11/16/2023 1:59 PM EDT) VB Text Report Department: Vascular Surgery Lab Patient: [id number] (AYDEE BEVERLY) CPT: 06706 Referring Physician: JACEY AMADOR ?? Phone: Indications: Intermittent claudication; ? PVD Diabetes mellitus: No Findings: Right ?Pressure (mm Hg) ?? NOAH ??Waveform ?TBI ?? Brachial Artery ?140 ? Common Femoral Artery ?Triphasic ? Popliteal Artery ? Triphasic ? Dorsalis Pedis (Ankle) Artery ?185 ? 1.28 ??Triphasic ? Posterior Tibial (Ankle) Artery ??181 ? 1.26 ??Triphasic ? Great Toe ?143 ?0.99 ?? Left ? Pressure (mm Hg) ?? NOAH ??Waveform ?TBI ?? Brachial Artery ?144 ? Common Femoral Artery ?Triphasic ? Popliteal Artery ? Triphasic ? Dorsalis Pedis (Ankle) Artery ?170 ? 1.18 ??Triphasic ? Posterior Tibial (Ankle) Artery ??174 ? 1.21 ??Triphasic ? Great Toe ?147 ?1.02 ?? Interpretation: RIGHT: No significant lower extremity arterial occlusive disease. Normal ankle/brachial pressure ratios, ankle Doppler waveforms and toe pressures. LEFT: No significant lower extremity arterial occlusive disease. Normal ankle/brachial pressure ratios, ankle Doppler waveforms and toe pressures. Comparison: ??No previous study in our vascular lab database for comparison. Electronically Signed by: KITA LLOYD on 2023-11-16 03:29:28 PM VASCU[facility] VB Text Report End of Report VAS[facility] 11/16/2023 1:59 PM EDT Jacey Amador APRN VASCULAR ORDERABLES [facility] documented in this encounter Visit Diagnoses Diagnosis Peripheral vascular disease, unspecified Macromastia Hypertrophy of breast documented in this encounter Care Teams Saw Sharpener Relationship Specialty Start Date End Date Justin Juarez MD [facility] [place] [address] [place] [address] PCP - General Family Medicine 12/29/22 documented as of this encounter
--- OUTSIDE RECORDS SUMMARY | 2023-11-30 00:07 | XMS_ITS | Encounter Summary ---
[place] [address] Care Team Providers Care Material Chaser Name Role Phone Justin Juarez MD Primary Care Provider [phone] Reason for Referral * Consultation (Routine) - Closed Specialty Diagnoses / Procedures Referred By Contac t Referred To Contact [facility] Diagnoses Radiculopathy of lumbar region F/U lumbar radiculopathy/XR 06/15/23 in e-DH/? Left L5 TFESI FUV BREAKFAST AND ROOM ATTENDANT Osmar Leigh MD [facility] [place] [address] [facility] [place] [address] Referral ID Status Reason Start Date Expiration Date V isits Requested Visits Authorized [id number] Closed Consult, Test & Treat 07/02/2023 07/01/2024 1 1 Reason for Visit * Reason Comments Back Pain * Consultation (Routine) - Closed Specialty Diagnoses / Procedures Referred By Contac t Referred To Contact [facility] Diagnoses Radicular pain of left lower extremity Minnie Muñoz, JL [facility] [place] [address] [facility] [place] [address] Referral ID Status Reason Start Date Expiration Date V isits Requested Visits Authorized [id number] Closed Consult, Test & Treat 06/01/2023 05/31/2024 1 1 Encounter Details Date Type Department Care Team (Latest Contact Info) Description 07/02/2023 1:20 PM EDT Office Visit [place] [address] Osmar Leigh MD [facility] [place] [address] Radiculopathy of lumbar region Social History Tobacco [...] PM EDT Office [place] [address] Justin Sevilla MD [facility] [place] [address] 01/23/2024 2:00 PM EDT Office Visit [facility] [place] [address] Kenneth Martin MD [facility] [place] [address] Scheduled Referrals Name Type Priority Associated Diagnoses [...] Thoracic or lumbosacral neuritis or radiculitis, unspecified Macromastia Hypertrophy of breast documented in this encounter Care Teams Material Chaser Relationship Specialty Start Date End Date Justin Juarez MD [address] [place] [address] PCP - General Family Medicine 12/29/22 documented as of this encounter
--- OUTSIDE RECORDS SUMMARY | 2023-11-30 00:07 | XMS_ITS | Encounter Summary ---
[place] [address] Care Team Providers Care Graduate Research Assistant Name Role Phone Justin Juarez MD Primary Care Provider [phone] Reason for Referral * Consultation (Routine) - Authorized Specialty Diagnoses / Procedures Referred By Contac t Referred To Contact [facility] Sp[facility] Center Diagnoses Left sided sciatica Minnie Muñoz APRN [facility] [place] [address] [facility] [place] [address] Referral ID Status Reason Start Date Expiration Date Visits Requested Visits Authorized [id number] Authorized Consult, Test & Treat 07/26/2023 07/25/2024 1 1 Reason for Visit * Consultation (Routine) - Closed Specialty Diagnoses / Procedures Referred By Contac t Referred To Contact [facility] Diagnoses Radiculopathy of lumbar region F/U lumbar radiculopathy/XR 06/15/23 in e-DH/? Left L5 TFESI FUV Osmar Bruner MD [facility] [place] [place] [address] [facility] [place] [address] Referral ID Status Reason Start Date Expiration Date V isits Requested Visits Authorized [id number] Closed Consult, Test & Treat 07/02/2023 07/01/2024 1 1 Encounter Details Date Type Department Care Team (Latest Contact Info) Description 07/26/2023 1:00 PM EDT TH Visit (TeleHealth) [facility] Sp[facility] at [facility] [place] [address] Minnie Muñoz APRN [facility] [place] [address] Left sided sciatica (Primary Dx) Social History [...] from the original note were not included. [facility] Date [...] She is done physical [facility] locally [facility] [place] [facility] and Tylenol she would like to do [...] hemilaminectomy and medial facetectomy done by Dr. Goodmans at [facility] neurology and neurosurgery in 2020 for a left-sided calcified synovial cyst. Since then she has had severe left leg pain that is problematic for her. She really cannot do much of anything. She is fine that the pain is quite severe and she would like to consider a referral to a surgeon. We also talked about the functional sikh program but she does not have good transportation. She does not feel she needs empowered relief because she has done a lot of cognitive behavioral therapy. She is at maximum dose of gabapentin and is not really interested in continuing with other medications. She wants to have a final solution for her symptoms. Updated interval history 07/26/2023: [facility]icine Visit [...] Interference Score 8.29 PAST THERAPIES: PT in [place] Chiropractor Tylenol Functional Status Work-- disabled ADL's---difficulty [...] Knee to feet bilaterally secondary to Gilda [place], decreased sensation to kimberly arms as well Obstructive sleep apnea 11/03/2015 Stress disorder, posttraumatic 11/04/2015 Past Surgical History: Past Surgical History: Procedure Laterality Date APPENDECTOMY CHOLECYSTECTOMY COLECTOMY COLONOSCOPY PRO LAMINEC/FACETECT/FORAMIN, LUMBAR 1 SEG Left 08/31/2020 LAMINECTOMY, FACETECTOMY & FORAMINOTOMY,LUMBAR, ONE LEVEL (WRVU 15.37) performed by Homar Astudillo MD at [facility] MAIN OR Review of Systems: Denies [...] y.o. year-old female who presents to the [facility] With low [...] send her some information about our functional sikh program which might be helpful for her as well. Thank you Dr. Leigh for allowing my participation in Aydee Johns's care. Minnie Muñoz, MS, BAG MACHINE SET UP OPERATOR-BC, AIR CONTROL ELECTRONICS OPERATOR Nurse practitioner Pain management [facility] documented in this encounter Plan of Treatment Upcoming Encounters Date Type Department Care Team (Late st Contact Info) Description 12/25/2023 2:00 PM EDT Office [place] [address] Justin Sevilla MD [facility] [place] [address] 01/23/2024 2:00 PM EDT Office Visit [place] [address] Kenneth Martin MD [facility] [place] [address] Scheduled Referrals Name Type Priority Associated Diagnoses [...] Diagnoses Diagnosis Left sided sciatica- Primary Sciatica Macromastia Hypertrophy of breast documented in this encounter Care Teams Graduate Research Assistant Relationship Specialty Start Date End Date Justin Juarez MD [address] [place] [address] PCP - General Family Medicine 12/29/22 documented as of this encounter
--- OUTSIDE RECORDS SUMMARY | 2023-11-30 00:07 | XMS_ITS | Encounter Summary ---
[place] [address] Care Team Providers Care Windows Server Engineer Name Role Phone Justin Juarez MD Primary Care Provider [phone] Encounter Details Date Type Department Care Team [...] PM EDT Office Visit Plastic Surgery at [place] [phone] Justin Sevilla MD [facility] [place] [address] 01/23/2024 2:00 PM EDT Office Visit [place] [address] Kenneth Martin MD [facility] [place] [address] documented as of this encounter Goals Goal [...] on filedocumented in this encounter Care Teams Windows Server Engineer Relationship Specialty Start Date End Date Justin Juarez MD [address] [place] [address] PCP - General Family Medicine 12/29/22 documented as of this encounter
--- OUTSIDE RECORDS SUMMARY | 2023-11-30 00:07 | XMS_ITS | Encounter Summary ---
[place] [address] Care Team Providers Care Cattle Knocker Name Role Phone Justin Juarez MD Primary Care Provider Reason for Visit * Diagnostic Test (Routine) - Closed Specialty Diagnoses / Procedures Referred By Mayda jalloh Referred To Contact Diagnoses Peripheral vascular disease, unspecified Procedures NOAH, legs, multiple levels Jacey Amador, BURNISHER AND BUMPER [address] [place] [address] [facility] Vascular Lab [address] [address] Referral ID Status Reason Start Date Expiration Date V isits Requested Visits Authorized [id number] Closed Specialty Service Requested 11/13/2023 11/12/2024 1 1 Encounter Details Date Type Department Care Team ([facility] Contact Info) Description 11/16/2023 2:00 PM EDT Tech [place] [address] Odalys Smith, RVT Peripheral vascular disease, unspecified Social History Tobacco [...] Upcoming Encounters Date Type Department Care Team ([facility] Contact Info) Description 12/25/2023 2:00 PM EDT Office [place] [address] Justin Sevilla MD [facility] [place] [address] 01/23/2024 2:00 PM EDT Office Visit [place] [address] Kenneth Martin MD [facility] [place] [address] documented as of this encounter [...] Procedure Name Priority Date/Time Associated Diagnosis Comments NOAH, LEGS, MULTIPLE LEVELS Routine 11/16/2023 1:59 PM EDT Peripheral vascular disease, unspecified documented in this encounter Results * NOAH, legs, multiple levels (11/16/2023 1:59 PM EDT) VB Text Report Department: Vascular Surgery Lab Patient: [id number] (AYDEE BEVERLY) CPT: 36465 Referring Physician: JACEY AMADOR ?? Phone: Indications: [...] breast documented in this encounter Care Teams Cattle Knocker Relationship Specialty Start Date End Date Justin Juarez MD [place] [address] PCP - General Family Medicine 12/29/22 documented as of this encounter
--- OUTSIDE RECORDS SUMMARY | 2023-11-30 00:07 | XMS_ITS | Encounter Summary ---
[place] [address] Care Team Providers Care Director Financial Analysis Name Role Phone Justin Juarez MD Primary Care Provider [phone] Encounter Details Date Type Department Care Team [...] PM EDT Office Visit Plastic Surgery at [place] [phone] Justin Sevilla MD [facility] [place] [address] 01/23/2024 2:00 PM EDT Office Visit [place] [address] Kenneth Martin MD [facility] [place] [address] documented as of this encounter Goals Goal [...] filedocumented in this encounter Care Teams Director Financial Analysis Relationship Specialty Start Date End Date Justin Juarez MD [address] [place] [address] PCP - General Family Medicine 12/29/22 documented as of this encounter
--- OUTSIDE RECORDS SUMMARY | 2023-11-30 00:07 | XMS_ITS | Encounter Summary ---
Author Organization [place] [id number] Care Team Providers Care Measurer Name Role Phone Justin Juarez MD Primary Care Provider Reason for Referral * Consultation (Routine) - Duplicate Referral Specialty Diagnoses / Procedures Referred By Mayda jalloh Referred To Contact [facility] and Spine Center Diagnoses Left sided sciatica Idiopathic peripheral neuropathy Jacey Amador APRN [address] [place] [address] [facility] [place] [address] Referral ID Status Reason Start Date Expiration Date Visits Requested Visits Authorized [id number] Duplicate Referral Consult, Test & Treat PCP Updated and/or Approved 12/29/2022 12/29/2023 12 12 Encounter Details Date Type Department Care Team (Latest Contact Info) Description 12/29/2022 Transcribe Orders eDH Incoming Referrals [phone] Jacey Aamdor APRN [address] [place], [place] [id number] Left sided sciatica; Idiopathic peripheral neuropathy Social [...] PM EDT Office [place] [address] Justin Sevilla MD [facility] [place] [place] [address] 01/23/2024 2:00 PM EDT Office Visit [place] [address] Kenneth Martin MD [facility] [place] [place] [address] Scheduled Referrals Name Type Priority Associated Diagnoses [...] neuropathy Unspecified hereditary and idiopathic peripheral neuropathy Macromastia Hypertrophy of breast documented in this encounter Care Teams Measurer Relationship Specialty Start Date End Date Justin Juarez MD [address] [place] [address] [place] [address] PCP - General Family Medicine 12/29/22 documented as of this encounter
--- OUTSIDE RECORDS SUMMARY | 2023-11-30 00:07 | XMS_ITS | Encounter Summary ---
[place] [address] Care Team Providers Care Chemical Production Engineer Name Role Phone Justin Juarez MD Primary Care Provider [phone] Encounter Details Date Type Department Care Team (Latest Contact Info) Description 11/16/2023 Travel Social History Tobacco Use Types Packs/Day [...] PM EDT Office Visit Plastic Surgery at [place] [phone] Justin Sevilla MD [facility] [place] [address] 01/23/2024 2:00 PM EDT Office Visit [place] [address] Kenneth Martin MD [facility] [place] [address] documented as of this encounter Goals Goal [...] on filedocumented in this encounter Care Teams Chemical Production Engineer Relationship Specialty Start Date End Date Justin Juarez MD [address] [place] [address] PCP - General Family Medicine 12/29/22 documented as of this encounter
--- OUTSIDE RECORDS SUMMARY | 2023-11-30 00:07 | XMS_ITS | Encounter Summary ---
[facility] [place] [id number] Care Team Providers Care Shape Carver Name Role Phone Justin Juarez MD Primary Care Provider [phone] Reason for Referral * Consultation (Routine) - Closed Specialty Diagnoses / Procedures Referred By Mayda jalloh Referred To Contact Pain and Spine Center Diagnoses Radicular pain of left lower extremity Minnie Muñoz APRN [facility] [place] [address] [facility] [place] [address] Referral ID Status Reason Start Date Expiration Date V isits Requested Visits Authorized [id number] Closed Consult, Test & Treat 06/01/2023 05/31/2024 1 1 Reason for Visit * Reason Comments Follow-up Left Leg Pain Left leg pain and sw elling(lower leg)Lower back Back Pain Encounter Details Date Type Department Care Team ([facility] st Contact Info) Description 06/01/2023 10:15 AM EST Office Visit [place] [address] Minnie Muñoz APRN [facility] [place] [address] Radicular pain of left lower extremity (Primary [...] this encounter Progress Notes * Minnie Muñoz, BIOMASS POWER PLANT SUPERINTENDENT - 06/01/2023 10:15 AM EST Images from the original note were not included. [facility] Date [...] She is done physical therapy locally in [place] chiropractics and Tylenol she would like to [...] hemilaminectomy and medial facetectomy done by Dr. Cason at [facility] neurology and neurosurgery in 2020 for a left-sided calcified synovial cyst. Since then she has had severe left leg pain that is problematic for her. She really cannot do much of anything. She is fine that the pain is quite severe and she would like to consider a referral to a surgeon. We also talked about the functional evangelical program but she does not have good [...] Interference Score 8.29 PAST THERAPIES: PT in [place] Chiropractor Tylenol Functional Status Work-- disabled ADL's---difficulty [...] Knee to feet bilaterally secondary to Gilda [place], decreased sensation to kimberly arms as well Obstructive sleep apnea 11/03/2015 Stress disorder, posttraumatic 11/04/2015 Past Surgical History: Past Surgical History: Procedure Laterality Date APPENDECTOMY CHOLECYSTECTOMY COLECTOMY COLONOSCOPY PRO LAMINEC/FACETECT/FORAMIN, LUMBAR 1 SEG Left 08/31/2020 LAMINECTOMY, FACETECTOMY & FORAMINOTOMY,LUMBAR, ONE LEVEL (WRVU 15.37) performed by Homar Astudillo MD at [facility] MA[facility] OR Review of Systems: Denies [...] y.o. year-old female who presents to the [facility] for [facility] clinic With low [...] in Aydee Johns's care. Minnie Muñoz, MS, NURSE OB-BC, BIOMASS POWER PLANT SUPERINTENDENT Nurse practitioner Pain management [facility] documented in this encounter Plan of Treatment Upcoming Encounters Date Type Department Care Team (Late st Contact Info) Description 12/25/2023 2:00 PM EDT Office [place] [address] Justin Sevilla MD [facility] [place] [address] 01/23/2024 2:00 PM EDT Office Visit [facility] [place] [address] Kenneth Martin MD [facility] [place] [address] Scheduled Orders Name Type Priority Associated Diagnoses [...] breast documented in this encounter Care Teams Shape Carver Relationship Specialty Start Date End Date Justin Juarez MD [address] [place] [address] PCP - General Family Medicine 12/29/22 documented as of this encounter
--- OUTSIDE RECORDS SUMMARY | 2023-11-30 00:07 | XMS_ITS | Encounter Summary ---
[place] [address] Care Team Providers Care Post Partum Nurse Name Role Phone Justin Juarez MD Primary Care Provider [phone] Encounter Details Date Type Department Care Team (Late st Contact Info) Description 05/24/2023 Telephone [place] [address] Porsha Cherry Social History Tobacco [...] Porsha Cherry - 05/24/2023 9:29 AM EST [facility] 05/24/23 in regards to scheduling a follow up with Minnie Muñoz APRN. Please call [phone]. Note: Follow up to MRI 05/17/23 in e-/ Discuss next steps documented in this encounter Plan of Treatment Upcoming Encounters Date Type Department Care Team (Late st Contact Info) Description 12/25/2023 2:00 PM EDT Office [place] [address] Justin Sevilla MD [facility] [place] [address] 01/23/2024 2:00 PM EDT Office Visit Pain and Spine Center at [facility] [place] [address] Kenneth Martin MD [facility] [place] [address] documented as of this encounter Goals Goal [...] on filedocumented in this encounter Care Teams Post Partum Nurse Relationship Specialty Start Date End Date Justin Juarez MD [address] [place] [address] PCP - General Family Medicine 12/29/22 documented as of this encounter
--- OUTSIDE RECORDS SUMMARY | 2023-11-30 00:07 | XMS_ITS | Encounter Summary ---
[place] [address] Care Team Providers Care Flavoring Maker Name Role Phone Justin Juarez MD Primary Care Provider [phone] Encounter Details Date Type Department Care Team (Late st Contact Info) Description 05/17/2023 7:05 PM EST Ancillary Procedure [place] [address] Justin Juarez MD [address] [place] [address] [place] [address] Social History Tobacco Use Types Packs/Day Years [...] PM EDT Office [place] [address] Justin Sevilla MD [facility] [place] [address] 01/23/2024 2:00 PM EDT Office Visit Pain [place] [address] Kenneth Martin MD [facility] [place] [address] documented as of this encounter Goals Goal [...] MR Spine (05/17/2023 7:01 PM EST) Narrative [facility] - 05/17/2023 7:01 PM EST This exam is auto-finalizing. It's purpose is for storage only. Justin Juarez MD [facility] ER[facility] [place] documented in this encounter Visit Diagnoses Not on filedocumented in this encounter Care Teams Flavoring Maker Relationship Specialty Start Date End Date Justin Juarez MD [address] [place] [address] [place] [address] PCP - General Family Medicine 12/29/22 documented as of this encounter
--- OUTSIDE RECORDS SUMMARY | 2023-11-30 00:07 | XMS_ITS | Clinical Summary ---
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 Encounters Date Type Department Care Team Description 11/16/2023 2:00 PM EDT Tech [place] [address] Odalys Smith, RVT Peripheral vascular disease, unspecified 11/16/2023 Travel 11/13/2023 Transcribe Orders eD Incoming Referrals [phone] Jacey Amador, SKIVER HEEL TAP Peripheral vascular disease, unspecified from Last 3 Months Family History Medical History Relation Comments Cancer [...] PM EDT Office [place] [address] Justin Sevilla MD [facility] [place] [address] 01/23/2024 2:00 PM EDT Office Visit [place] [address] Kenneth Martin MD [facility] [place] [address] Health Maintenance Due Date Last Done Comments [...] 2) 2013 Advance Directive 2018 Covid-19 Vaccine ( - season) 2022 Influenza (Flu) vaccine (1 o [...] 1:59 PM EDT Peripheral vascular disease, unspecified [facility] EXTERNAL LABS 2 Routine 12/22/2021 [facility] EXTERNAL RESULT PANEL Routine 08/29/2021 from Last 3 Months or Most Recently Relevant to Health Maintenance Results * NOAH, legs, multiple levels (11/16/2023 1:59 PM EDT) VB Text Report Department: Vascular Surgery Lab Patient: [id number] (AYDEE BEVERLY) CPT: 62682 Referring Physician: JACEY AMADOR ?? Phone: Indications: [...] EDT Jacey Amador APRN VASCULAR ORDERABLES VASCUBASE * (ABNORMAL) [facility] Labs 2 - External (12/22/2021) Hemoglobin A1c 5.9(H) Glucose Fasting 103 Vitamin D Total 25 OH 19.1(L) Thyroid Stimulating Hormone 0.93 Insulin 15.1 Ferritin 120 Iron 76 12/22/2021 Historical Provider EXTERNAL LAB BORA DAMONJEREMY * (ABNORMAL) [facility] External Results (08/29/2021) Cholesterol, Total 311(H) Triglyceride 308(H) HDL Cholesterol 46 LDL Cholesterol 204(H) Blood Urea Nitrogen 12 Creatinine 0.8 Sodium 142 Potassium 4.0 Chloride 104 Carbon Dioxide 28 Anion Gap 10 Calcium 9.1 Protein, Total 7.4 Albumin 4.2 Aspartate Aminotransferase 13(L) Alanine Aminotransferase 23 Alkaline Phosphatase 79 Bilirubin, Total 0.5 Est Glomerular Filtration Rate >60 Glucose 110(H) Platelet 318 08/29/2021 Historical Provider POINT OF CARE BONNIE T ORDERABLES from Last 3 Months or Most Recently Relevant to Health Maintenance Care Teams Corporate Secretary Relationship Specialty Start Date End Date Justin Juarez MD [address] [place] [address] PCP - General Family Medicine 12/29/22
--- OUTSIDE RECORDS SUMMARY | 2023-11-30 00:07 | XMS_ITS | Encounter Summary ---
[place] [address] Care Team Providers Care Hyperbaric Technician Name Role Phone Justin Juarez MD Primary Care Provider [phone] Encounter Details Date Type Department Care Team [...] PM EDT Office Visit Plastic Surgery at [place] [phone] Justin Sevilla MD [facility] [place] [address] 01/23/2024 2:00 PM EDT Office Visit [place] [address] Kenneth Martin MD [facility] [address] documented as of this encounter Goals Goal [...] on filedocumented in this encounter Care Teams Hyperbaric Technician Relationship Specialty Start Date End Date Justin Juarez MD [address] [place] [address] PCP - General Family Medicine 12/29/22 documented as of this encounter
--- OUTSIDE RECORDS SUMMARY | 2023-11-30 00:07 | XMS_ITS | Encounter Summary ---
Author Organization [facility] [place] [address] Care Team Providers Care Afternoon Babysitter Name Role Phone Justin Juarez MD Primary Care Provider [phone] Reason for Visit * Reason Comments Back Pain Neck * Consultation (Routine) - Closed Specialty Diagnoses / Procedures Referred By Contac t Referred To Contact Pain and Spine Center Diagnoses Other cervical disc disorders at C6-C7 level Thoracic disc herniation Thoracic back pain, unspecified back pain laterality, unspecified chronicity Cervical/thoracic disc protrusion/CT (t) 09/18/[address] (c) 11/08/22 @ [facility]/surgical vs [facility] FVE KNIFE CHANGER Jacey Amador, JL [address] [place] [address] [facility] [place] [address] Referral ID Status Reason Start Date Expiration Date V isits Requested Visits Authorized [id number] Closed Consult, Test & Treat PCP Updated and/or Approved 12/04/2022 12/04/2023 1 1 Encounter Details Date Type Department Care Team (Late st Contact Info) Description 03/13/2023 3:15 PM EST Office Visit [place] [address] Minnie Muñoz TEARER [facility] [place] [address] Radicular pain of left lower extremity Social [...] this encounter Progress Notes * Minnie Muñoz, TEARER - 03/13/2023 3:15 PM EST Images from the original note were not included. [facility] Date [...] She [facility] [place] [facility] and Tylenol she would like [...] Interference Score 8.29 PAST THERAPIES: PT in [place] Chiropractor Tylenol Functional Status Work-- disabled ADL's---difficulty [...] Knee to feet bilaterally secondary to Gilda [place], decreased sensation to kimberly arms as well Obstructive sleep apnea 11/03/2015 Stress disorder, posttraumatic 11/04/2015 Past Surgical History: Past Surgical History: Procedure Laterality Date APPENDECTOMY CHOLECYSTECTOMY COLECTOMY COLONOSCOPY PRO LAMINEC/FACETECT/FORAMIN, LUMBAR 1 SEG Left 08/31/2020 LAMINECTOMY, FACETECTOMY & FORAMINOTOMY,LUMBAR, ONE LEVEL (WRVU 15.37) performed by Homar Astudillo MD at [facility] MAIN OR Review of Systems: Denies [...] y.o. year-old female who presents to the [facility] for [facility]Spine clinic With low back pain and lateral leg pain. Saw her I had ordered that she had a trial of an epidural steroid injection and that never happeneduntil she saw Dr. Henriquez not at [facility] at the end of last year. Notes [...] in Aydee Johns's care. Minnie Muñoz, MS, PRINTING AGENT-BC, TEARER Nurse practitioner Pain management [facility] documented in this encounter Plan of Treatment Upcoming Encounters Date Type Department Care Team (Late st Contact Info) Description 12/25/2023 2:00 PM EDT Office [place] [address] Justin Sevilla MD [facility] [place] [address] 01/23/2024 2:00 PM EDT Office Visit [place] [address] Kenneth Martin MD [facility] [place] [address] Scheduled Referrals Name Type Priority Associated Diagnoses [...] breast documented in this encounter Care Teams Afternoon Babysitter Relationship Specialty Start Date End Date Justin Juarez MD [facility] [place] [address] PCP - General Family Medicine 12/29/22 documented as of this encounter
--- OUTSIDE RECORDS SUMMARY | 2023-11-30 00:07 | XMS_ITS | Encounter Summary ---
Author Organization [facility] Address [facility] [place] [address] Care Team Providers Care Dean Of Men Name Role Phone Justin Juarez MD Primary Care Provider Encounter Details Date Type Department Care Team (Late st Contact Info) Description 12/29/2022 Transcribe Orders eDH Incoming Referrals [phone] Justin Juarez MD [address] [place] [address] [place] [address] Social History Tobacco Use Types Packs/Day Years [...] PM EDT Office [place] [phone] Justin Sevilla MD [facility] [address] 01/23/2024 2:00 PM EDT Office Visit [place] [address] Kenneth Martin MD [facility] [place] [address] documented as of this encounter Goals Goal [...] on filedocumented in this encounter Care Teams Dean Of Men Relationship Specialty Start Date End Date Justin Juarez MD [address] [place] [address] [place] [address] PCP - General Family Medicine 12/29/22 documented as of this encounter
--- OUTSIDE RECORDS SUMMARY | 2023-11-30 00:07 | XMS_ITS | Encounter Summary ---
Author [place] [address] Care Team Providers Care Corn Cutter Operator Name Role Phone Justin Juarez MD Primary Care Provider [phone] Encounter Details Date Type Department Care Team (Late st Contact Info) Description 06/15/2023 Ancillary Procedure [place] [phone] Justin Juarez MD [address] [place] [address] [place] [address] Social History Tobacco Use Types [...] PM EDT [place] [address] Justin Sevilla MD [facility] DR [place]LASTIC [place] [address] 01/23/2024 2:00 PM EDT Office Visit [place] [address] Kenneth Martin MD [facility] [place] [address] documented as of this encounter Goals Goal [...] DX Spine (06/15/2023 12:00 AM EST) Narrative [facility] - 06/18/2023 3:18 PM EDT This exam is auto-finalizing. It's purpose is for storage only. Justin Juarez MD [facility] FILM LIBRARY ORD ERABLES [place], [place] documented in this encounter Visit Diagnoses Not on filedocumented in this encounter Care Teams Corn Cutter Operator Relationship Specialty Start Date End Date Justin Juarez MD [address] [place] [address] [place] [address] PCP - General Family Medicine 12/29/22 documented as of this encounter
--- OUTSIDE RECORDS SUMMARY | 2023-11-30 00:07 | XMS_ITS | Encounter Summary ---
Author Organization [place] [id number] Care Team Providers Care Platform Beater Name Role Phone Glenys Hernandez JL Primary Care Provider Reason for Referral * Consultation (Routine) - Closed Specialty Diagnoses / Procedures Referred By Mayda t Referred To Contact Pain and Spine Center Diagnoses Other cervical disc disorders at C6-C7 level Thoracic disc herniation Thoracic back pain, unspecified back pain laterality, unspecified chronicity Cervical/thoracic disc protrusion/CT (t) 09/18/[address] (c) 11/08/22 @ [facility]/surgical vs [facility] FVE SUPERVISOR MECHANIC BOILERMAKING Jacey Amador APRN [address] [place] [address] [facility] [place] [address] Referral ID Status Reason Start Date Expiration Date V isits Requested Visits Authorized [id number] Closed Consult, Test & Treat PCP Updated and/or Approved 12/04/2022 12/04/2023 1 1 Encounter Details Date Type Department Care Team (Latest Contact Info) Description 12/04/2022 Transcribe Orders eDH Incoming Referrals [phone] Jacey Amador APRN [address] [place], [place] [id number] Other cervical disc disorders at C6-C7 level; [...] PM EDT Office Visit [place] [address] Justin Sevilla MD [facility] [place] [address] 01/23/2024 2:00 PM EDT Office Visit Pain [place] [address] Kenneth Martin MD [facility] [place] [address] Scheduled Referrals Name Type Priority Associated Diagnoses [...] pain, unspecified back pain laterality, unspecified chronicity Macromastia Hypertrophy of breast documented in this encounter Care Teams Platform Beater Relationship Specialty Start Date End Date Glenys Hernandez, JL [address] [place] [address] PCP - General Family Medicine 09/26/21 12/28/22 documented as of this encounter
--- OUTSIDE RECORDS SUMMARY | 2023-11-30 00:08 | XMS_ITS | Encounter Summary ---
Author Organization [facility] [place] [address] Care Team Providers Care Pick Up And Delivery Driver Name Role Phone Glenys Hernandez APRN Primary Care Provider [phone] Reason for Visit * Reason Onset Date Comments Reminder Appointment 11/28/2022 Encounter Details Date Type Department Care Team ([facility] Contact Info) Description 11/28/2022 Telephone Neurology at [facility] [place] [address] Pantera Welch MD [facility] [place] [address] Reminder Appointment Social History Tobacco Use Types [...] Upcoming Encounters Date Type Department Care Team ([facility] Contact Info) Description 12/25/2023 2:00 PM EDT Office [place] [address] Justin Sevilla MD [facility] [place] [address] 01/23/2024 2:00 PM EDT Office Visit [facility] [place] [address] Kenneth Martin MD [facility] [place] [address] documented as of this encounter Goals Goal [...] on filedocumented in this encounter Care Teams Pick Up And Delivery Driver Relationship Specialty Start Date End Date Glenys Hernandez, JL [address] [place] [address] PCP - General Family Medicine 09/26/21 12/28/22 documented as of this encounter
--- OUTSIDE RECORDS SUMMARY | 2023-11-30 00:08 | XMS_ITS | Encounter Summary ---
[place] [address] Care Team Providers Care Recruiting Assistant Name Role Phone Zoraida Ordoñez MD Primary Care Provider [phone] Reason for Referral * Consultation (Routine) - Closed Specialty Diagnoses / Procedures Referred By Mayda jalloh Referred To Contact Pain and Spine Center Diagnoses Sciatica, unspecified laterality Chronic low back pain with sciatica, sciatica laterality unspecified, unspecified back pain laterality Low back & left leg pain/ h/o of lumbar surgery 08/2020w/[facility]/ MRI 01/2021 in eDH Harris Poon MD [address] [place] [address] [facility] [place] [address] Referral ID Status Reason Start Date Expiration Date V isits Requested Visits Authorized [id number] Closed Consult, Test & Treat PCP Updated and/or Approved 08/15/2021 08/15/2022 6 6 Encounter Details Date Type Department Care Team (Latest Contact Info) Description 08/15/2021 Transcribe Orders eDH Incoming Referrals [phone] Harris Poon MD [address] [place], [place] [id number] Sciatica, unspecified laterality; Chronic low back pain [...] PM EDT Office Visit Plastic Surgery at [place] [phone] Justin Sevilla MD [facility] [place] [place] [address] 01/23/2024 2:00 PM EDT Office Visit [place] [address] Kenneth Martin MD [facility] [place] [address] Scheduled Referrals Name Type Priority Associated Diagnoses Orde r Schedule Referral to Spine Center Outpatient Referral Routine Sciatica, unspecified laterality Chronic low back pain with sciatica, sciatica laterality unspecified, unspecified back pain laterality Ordered: 08/15/2021 documented as of this encounter Visit Diagnoses Diagnosis Sciatica, unspecified laterality Chronic low back pain with sciatica, sciatica laterality unspecified, unspecified back pain laterality Macromastia Hypertrophy of breast documented in this encounter Care Teams Recruiting Assistant Relationship Specialty Start Date End Date Zoraida Ordoñez MD [address] [place] [address] PCP - General Family Medicine 08/13/21 09/25/21 documented as of this encounter
--- OUTSIDE RECORDS SUMMARY | 2023-11-30 00:08 | XMS_ITS | Encounter Summary ---
Author Organization [facility] [place] [address] Care Team Providers Care Home Health Outreach Coordinator Name Role Phone Glenys Hernandez APRN Primary Care Provider [phone] Encounter Details Date Type Department Care Team ([facility] Contact Info) Description 01/25/2022 10:30 AM EDT TH Visit (TeleHealth) Weight and Wellness at [facility] [address] [place] [address] [facility] [place] [address] Adult BMI 39.0-39.9 kg/sq m Social History [...] was at home at the following address: [address] [place] [address] Weight Today: Wt Readings from Last 3 [...] Loss History: See previous notes from this speech writer and [facility] provider for full account Smoking: quit [...] [x] Needs additional fuv scheduled with this speech writer in Return in about 1 month [...] determined to the best ability of this speech writer. Patient will contact bariatric surgery team for any official determination about about scheduling and insurance requirements ( ) Thank you Siat Sandoval MS THO LD 30 minutes were spent in visit today, including contact with patient, chart review, and documentation documented in this encounter Plan of Treatment Upcoming Encounters Date Type Department Care Team (Late st Contact Info) Description 12/25/2023 2:00 PM EDT Office [place] [address] Justin Sevilla MD [facility] [place] [address] 01/23/2024 2:00 PM EDT Office Visit [place] [address] Kenneth Martin MD [facility] [place] [address] documented as of this encounter Goals Goal [...] kg/sq m Body Mass Index 39.0-39.9, adult Macromastia Hypertrophy of breast documented in this encounter Care Teams Home Health Outreach Coordinator Relationship Specialty Start Date End Date Glenys Hernandez APRN [address] [place] [address] PCP - General Family Medicine 09/26/21 12/28/22 documented as of this encounter
--- OUTSIDE RECORDS SUMMARY | 2023-11-30 00:08 | XMS_ITS | Encounter Summary ---
Author Organization [facility] Address [facility] [place] [address] Care Team Providers Care Operating Room Technician Name Role Phone Glenys Hernandez APRN Primary Care Provider [phone] Reason for Referral * Physical Therapy (Routine) - Closed Specialty Diagnoses / Procedures Referred By Mayda jalloh Referred To Contact Diagnoses Headache, cervicogenic Pantera Welch MD [facility] [place] [address] Unknown None Referral ID Status Reason Start Date Expiration Date V isits Requested Visits Authorized [id number] Closed Evaluate and Treat Non PCP 12/04/2022 06/02/2023 12 12 Reason for Visit * Consultation (Routine) - Closed Specialty Diagnoses / Procedures Referred By Mayda jalloh Referred To Contact Neurology Diagnoses Migraine without status migrainosus, not intractable, unspecified migraine type Medication management contract agreement Jacey Amador, JL [address] [place] [address] [place] [address] [facility] Neurology [address] [place] [phone] Referral ID Status Reason Start Date Expiration Date V isits Requested Visits Authorized [id number] Closed Consult, Test & Treat PCP Updated and/or Approved 10/17/2022 10/17/2023 12 12 Encounter Details Date Type Department Care Team (Latest Contact Info) Description 12/04/2022 10:00 AM EDT TH Visit (TeleHealth) [place] [address] Pantera Welch MD [facility] [place] [address] Headache, cervicogenic Social History Tobacco Use Types [...] original note were not included. NEUROLOGY CLINIC [facility] [place] [address] 12/04/2022 Patient name: Aydee Johns Date of : 1965 Referring provider: Glenys Hernandez APRN [address] [place] [address] HISTORY REASON FOR REFERRAL/CHIEF COMPLAINT: Headache/ Migraine HISTORY OF PRESENTING COMPLAINTS: Referred for headache. She was previously seen at [facility] Headache and Neurology. She says she had [...] Knee to feet bilaterally secondary to Gilda [place], decreased sensation to kimberly arms as well Obstructive sleep apnea 11/03/2015 Stress disorder, posttraumatic 11/04/2015 Past Surgical History: Procedure Laterality Date APPENDECTOMY CHOLECYSTECTOMY COLECTOMY COLONOSCOPY PRO LAMINEC/FACETECT/FORAMIN, LUMBAR 1 SEG Left 08/31/2020 LAMINECTOMY, FACETECTOMY & FORAMINOTOMY,LUMBAR, ONE LEVEL (WRVU 15.37) performed by Homar Astudillo MD at [facility] MAIN OR Family History: Family History Problem [...] found for: CRP B12No results found for: [id number] CKNo results found for: CK Angiotensin ConvertaseNo [...] (H) 08/29/2021 KURTIS 65No results found for: NBR32MY ANTI GM1,ANTI SGPG, MAG@RESUFAST (MAGAUTOAB,SGPG,MAGWB,GM1AB)@ HEAVY METAL [...] ANNA1, ANNA2, ANNA3, AGNA1, PCA1, PCA2, PCATYPETR, AMPHIPHYSIN,MMSE9OOA, STRIATMSCLAB, CACHABPQTYPE, CACHABNTYPE, ACHRBINDAB, NEUROKCHAB, NMDARECEPTOR, [id number] THROMBOSIS HOMEOCYSTEINENo results found for: HOMOCYSTEINE THROMBOSIS PANELNo results found for: ACAIGM, [id number] FACTOR V LEIDEN No components found for: [...] past. Was seen in Headache clinic at [facility] in the past. Workup with MRI was [...] needed. Pantera Welch MD Department of Neurology [facility] documented in this encounter Plan of Treatment Upcoming Encounters Date Type Department Care Team (Late st Contact Info) Description 12/25/2023 2:00 PM EDT Office [place] [address] Justin Sevilla MD [facility] [place] [address] 01/23/2024 2:00 PM EDT Office Visit [facility] [place] [address] Kenneth Martin MD [facility] [place] [address] Scheduled Referrals Name Type Priority Associated Diagnoses [...] encounter Visit Diagnoses Diagnosis Headache, cervicogenic Headache Macromastia Hypertrophy of breast documented in this encounter Care Teams Operating Room Technician Relationship Specialty Start Date End Date Glenys Hernandez, LJ [address] [place] [address] PCP - General Family Medicine 09/26/21 12/28/22 documented as of this encounter
--- OUTSIDE RECORDS SUMMARY | 2023-11-30 00:08 | XMS_ITS | Encounter Summary ---
[place] [address] Care Team Providers Care Supplier Manager Name Role Phone Glenys Hernandez APRN Primary Care Provider [phone] Encounter Details Date Type Department Care Team (Late st Contact Info) Description 04/17/2022 Telephone [place] [address] Meghna Agee Social History Tobacco Use Types [...] PM EDT Office [place] [address] Justin Sevilla MD [facility] [place] [address] 01/23/2024 2:00 PM EDT Office Visit Pain and Spine Center at [facility] [place] [address] Kenneth Martin MD [facility] [place] [address] documented as of this encounter Goals Goal [...] on filedocumented in this encounter Care Teams Supplier Manager Relationship Specialty Start Date End Date Glenys Hernandez APRN [address] [place] [address] PCP - General Family Medicine 09/26/21 12/28/22 documented as of this encounter
--- OUTSIDE RECORDS SUMMARY | 2023-11-30 00:08 | XMS_ITS | Encounter Summary ---
Author Organization [facility] [place] [address] Care Team Providers Care Pilot Can Router Name Role Phone Nick Menendez MD Primary Care Provider [phone] Reason for Visit * Auth/Cert Specialty Diagnoses / Procedures Referred By Mayda t Referred To Contact Diagnoses SPONDYLOSIS, FORAMINAL STENOSIS Procedures PRO LAMINEC/FACETECT/FORAMIN, LUMBAR 1 SEG PRO LAMINEC/FACETECT/FORAMIN, EACH ADDNL LAMINECTOMY, FACETECTOMY & FORAMINOTOMY,LUMBAR, ONE LEVEL (WRVU 15.37) ADD'L INTERSPACES CX., THORACIC, LUMBAR (WRVU 3.47) Referral ID Status Reason Start Date Expiration Date Visits Re quested Visits Authorized [id number] 1 1 Encounter Details Date Type Department Care Team ([facility] Contact Info) Description 08/31/2020 10:53 AM EDT - 08/31/2020 1:06 PM EDT Surgery Operating Room [facility] [address] [facility] [place] [address] Homar Astudillo MD [address] [facility] [place] [address] LAMINECTOMY, FACETECTOMY & FORAMINOTOMY,LUMBAR, ONE LEVEL (WRVU [...] six weeks after surgery with a Physician???s Cat Dog Or Other Pet Groomer at the surgeon???s office. You will have [...] to stop taking it. ??? Only take [id number] or prescription medicine for pain, discomfort or [...] [facility] Neurology and Neurosurgery at [phone], during business hours of Sunday through Sunday from 8:00 a.m. until 4:00 p.m. In case of emergency during non-business hours, please call the same main number and follow the prompts to page the neurosurgeon clarification operator. SMOKING CESSATION INFORMATION: ??? [place] QUITLINE: ??? [place] QUITLINE: ??? [email or web address] If you smoke, stop now! Smoking may impede healing. MAKE SURE YOU: ??? Understand these instructions. ??? Will seek medical care if you are feeling poor, or get worse. ??? Will call the surgeon???s office with any questions or concerns at : [phone] The above information has been presented or [...] Astudillo MD - 08/31/2020 10:49 AM EDT [facility] [place] [address] Patient Name: Aydee Johns : [id number] MR#: [id number] Case Date: 08/31/2020 Case Scheduled Time: 1053 [...] PM EDT Office [place] [phone] Justin Sevilla MD [facility] [place] [address] 01/23/2024 2:00 PM EDT Office Visit [facility] [place] [phone] Kenneth Martin MD [facility] PAIN MANAGEMENT [place], [place] [phone] documented as of this encounter Procedures Procedure [...] Homar Astudillo MD IMG FLUORO ORDERABLE S [place], [place] documented in this encounter Visit Diagnoses [...] Intra-Operative (Intra-Procedure) 1104 (Given - Provid er: oHmar Astudillo MD) documented in this encounter Care Teams Pilot Can Router Relationship Specialty Start Date End Date Nick Menendez MD [address] [place] [address] PCP - General General Internal Medicine 03/06/1608/12 documented as of this encounter
--- OUTSIDE RECORDS SUMMARY | 2023-11-30 00:08 | XMS_ITS | Encounter Summary ---
Author Organization [facility] [place] [address] Care Team Providers Care Self Propelled Mining Machine Operator Name Role Phone Glenys Hernandez APRN Primary Care Provider [phone] Encounter Details Date Type Department Care Team ([facility] Contact Info) Description 12/07/2021 10:30 AM EDT TH Visit (TeleHealth) Weight and Wellness at [facility] [address] [place] [address] [facility] [place] [address] Adult BMI 39.0-39.9 kg/sq m Social History [...] was at home at the following address: [place] [id number] [place] [address] Weight Today: Wt Readings from Last 3 [...] adjust meals See previous notes from this business writer and [facility] provider for full account Typical Dietary [...] [] Needs additional fuv scheduled with this business writer in Return for F/U already scheduled. (OR) [x] Currently scheduled for: [x] 1st consecutive monthly nutrition visit [x] 2nd consecutive monthly nutrition visit [x] 3rd consecutive monthly nutrition visit (OR) [] Patient has met requirement of 3 consecutive monthly nutrition visits but agrees that ongoing support would be helpful and feasible. Above determined to the best ability of this business writer. Patient will contact bariatric surgery team [...] PM EDT Office Visit Plastic Surgery at [place] [phone] Justin Sevilla MD [facility] [place] [address] 01/23/2024 2:00 PM EDT Office Visit [facility] at [place] [phone] Kenneth Martin MD [facility] [place] [address] documented as of this encounter Goals Goal [...] breast documented in this encounter Care Teams Self Propelled Mining Machine Operator Relationship Specialty Start Date End Date Glenys Hernandez, MECHANOTHERAPIST [address] [facility] [place] [address] PCP - General Family Medicine 09/26/21 12/28/22 documented as of this encounter
--- OUTSIDE RECORDS SUMMARY | 2023-11-30 00:08 | XMS_ITS | Encounter Summary ---
[place] [address] Care Team Providers Care Weigher Production Name Role Phone Glenys Hernandez APRN Primary Care Provider [phone] Encounter Details Date Type Department Care Team (Late st Contact Info) Description 04/17/2022 Telephone Weight and Wellness at [address] [phone] Suzi Reid Social History Tobacco Use Types [...] PM EDT Office [place] [address] Justin Sevilla MD [facility] [place] [address] 01/23/2024 2:00 PM EDT Office Visit Pain and Spine Center at [facility] [place] [address] Kenneth Martin MD [facility] [place] [address] documented as of this encounter Goals Goal [...] on filedocumented in this encounter Care Teams Weigher Production Relationship Specialty Start Date End Date Glenys Hernandez APRN [address] [place] [address] PCP - General Family Medicine 09/26/21 12/28/22 documented as of this encounter
--- OUTSIDE RECORDS SUMMARY | 2023-11-30 00:08 | XMS_ITS | Encounter Summary ---
Author Organization [facility] [place] [address] Care Team Providers Care Adaptive Physical Education Specialist Name Role Phone Nick Menendez MD Primary Care Provider [phone] Reason for Visit * Auth/Cert Specialty Diagnoses / Procedures Referred By Mayda jalloh Referred To Contact Diagnoses SPONDYLOSIS, FORAMINAL STENOSIS Procedures PRO LAMINEC/FACETECT/FORAMIN, LUMBAR 1 SEG PRO LAMINEC/FACETECT/FORAMIN, EACH ADDNL LAMINECTOMY, FACETECTOMY & FORAMINOTOMY,LUMBAR, ONE LEVEL (WRVU 15.37) ADD'L INTERSPACES CX., THORACIC, LUMBAR (WRVU 3.47) Referral ID Status Reason Start Date Expiration Date Visits Re quested Visits Authorized [id number] 1 1 Encounter Details Date Type Department Care Team (Late Contact Info) Description 08/31/2020 9:40 AM EDT Ancillary Procedure Radiology Xray at [facility] [place] [address] Social History Tobacco Use Types Packs/Day Years [...] Upcoming Encounters Date Type Department Care Team ([facility] Contact Info) Description 12/25/2023 2:00 PM EDT Office [place] [phone] Justin Sevilla MD [facility] [place] [address] 01/23/2024 2:00 PM EDT Office Visit Pain and Spine Center at [facility] [place] [phone] Kenneth Martin MD [facility] [place] [address] documented as of this encounter Procedures Procedure [...] Homar Astudillo MD IMG FLUORO ORDERABLE S Performing Organization Address City/State/[facility] Co de Phone Number [place], [place] documented in this encounter Visit Diagnoses Not on filedocumented in this encounter Care Teams Adaptive Physical Education Specialist Relationship Specialty Start Date End Date Nick Menendez MD [address] [place] [address] PCP - General General Internal Medicine 03/06/1608/12 documented as of this encounter
--- OUTSIDE RECORDS SUMMARY | 2023-11-30 00:08 | XMS_ITS | Encounter Summary ---
Author Organization [facility] Address [facility] [place] [address] Care Team Providers Care Roller Coaster Designer Name Role Phone Glenys Hernandez APRN Primary Care Provider Reason for Visit * Consultation (Routine) - Closed Specialty Diagnoses / Procedures Referred By Mayda jalloh Referred To Contact Dermatology Diagnoses Pruritus, unspecified Procedures Itching of Skin; New Patient-Notes Received Glenys Hernandez APRN [address] [place], [place] [address] [place] [address] [facility] Dermatology [address] [place] [address] Referral ID Status Reason Start Date Expiration Date V isits Requested Visits Authorized [id number] Closed Consult, Test & Treat PCP Updated and/or Approved 03/20/2022 03/20/2023 6 6 Encounter Details Date Type Department Care Team ([facility] Contact Info) Description 07/04/2022 3:00 PM EDT Office Visit Dermatology at [facility] [address] [place] [phone] Syeda Dias MD [facility] DR [place] [address] Pruritus Social History Tobacco Use [...] as of this encounter Progress Notes * Bacilio Diasliliane Lopez 07/04/2022 3:00 PM EDT Images from the [...] products discussed RTC: PRN []Note routed to marketing team lead []Recall placed in scheduling system []Appointment scheduled at checkout Scribe attestation: Bonifacio Tran CMA and Nic Barajas have performed the documentation for this encounter in the presence of and acting as a scribe for Syeda Dias MD. I performed the above scribed service and agree with the accuracy of the documentation in this encounter. Reviewed and signed by: Syeda Dias MD Dermatology [facility] Patient seen and evaluated with staff applications administrator: Santiago Patrick MD Dermatology [facility] * Santiago Patrick MD - 07/04/2022 3:00 PM EDT I was the supervising physician working with dermatology resident Dr. Dias in the dermatology clinic during this patient visit. The level of resident supervision for this patient visit was indirectsupervision with direct supervision immediately available. (definition: [facility] Policy Statement on Graduate Medical Education, [...] PM EDT Office [place] [address] Justin Sevilla MD [facility] [place] [address] 01/23/2024 2:00 PM EDT Office Visit [place] [address] Kenneth Martin MD [facility] [place] [address] documented as of this encounter Goals Goal [...] Visit Diagnoses Diagnosis Pruritus Unspecified pruritic disorder Macromastia Hypertrophy of breast documented in this encounter Care Teams Roller Coaster Designer Relationship Specialty Start Date End Date Glenys Hernandez, JL [address] [place] [address] PCP - General Family Medicine 09/26/21 12/28/22 documented as of this encounter
--- OUTSIDE RECORDS SUMMARY | 2023-11-30 00:08 | XMS_ITS | Encounter Summary ---
[place] [address] Care Team Providers Care Highway Painter Name Role Phone Glenys Hernandez JL Primary Care Provider [phone] Reason for Referral * Consultation (Routine) - Closed Specialty Diagnoses / Procedures Referred By Mayda jalloh Referred To Contact Neurology Diagnoses Migraine without status migrainosus, not intractable, unspecified migraine type Medication management contract agreement Jacey Amador APRN [address] [facility] [place] [address] [facility] Neurology [address] [place] [phone] Referral ID Status Reason Start Date Expiration Date V isits Requested Visits Authorized [id number] Closed Consult, Test & Treat PCP Updated and/or Approved 10/17/2022 10/17/2023 12 12 Encounter Details Date Type Department Care Team (Latest Contact Info) Description 10/17/2022 Transcribe Orders eDH Incoming Referrals [phone] Jacey Amador APRN [address] [facility] [id number] Migraine without status migrainosus, not intractable, unspecified [...] PM EDT [place] [phone] Justin Sevilla MD [facility] [place] [address] 01/23/2024 2:00 PM EDT Office Visit [place] [phone] Kenneth Martin MD [facility] [address] Scheduled Referrals Name Type Priority Associated Diagnoses [...] inherently not codable concepts WITHOUT codable children Macromastia Hypertrophy of breast documented in this encounter Care Teams Highway Painter Relationship Specialty Start Date End Date Glenys Hernandez, REGIONAL PROGRAM MANAGER [address] [place] [address] PCP - General Family Medicine 09/26/21 12/28/22 documented as of this encounter
--- OUTSIDE RECORDS SUMMARY | 2023-11-30 00:08 | XMS_ITS | Encounter Summary ---
Author Organization [facility] [place] [address] Care Team Providers Care Firewall Engineer Name Role Phone Glenys Hernandez APRN Primary Care Provider [phone] Encounter Details Date Type Department Care Team ([facility] Contact Info) Description 03/20/2022 Telephone Weight and Wellness at [address] [phone] Светлана Villasenor, MANOJ Social History [...] PM EST [facility] Supervisor Winter Pre-telemedicine Visit Phone Note Aydee Johns 1965 [] Patient was not reached Patient was reached and the following information was reviewed/obtained per protocol: [x] Confirmed patient name and date of [x] Confirmed ZOOM downloaded and functioning [] ZOOM appointment link sent if no MyDH [x] Phone number to be reached is: [phone] REVIEW: [x] Review of patient medications completed [...] PM EDT Office [place] [phone] Justin Sevilla MD [facility] [place] [address] 01/23/2024 2:00 PM EDT Office Visit [place] [phone] Kenneth Martin MD [facility] [place] [address] documented as of this encounter Goals Goal [...] on filedocumented in this encounter Care Teams Firewall Engineer Relationship Specialty Start Date End Date Glenys Hernandez TELEGRAPHIC TYPEWRITER MECHANIC [address] [place] [address] PCP - General Family Medicine 09/26/21 12/28/22 documented as of this encounter
--- OUTSIDE RECORDS SUMMARY | 2023-11-30 00:08 | XMS_ITS | Encounter Summary ---
[place] [address] Care Team Providers Care Cable Coverer Name Role Phone Glenys Hernandez APRN Primary Care Provider [phone] Reason for Referral * Consultation (Routine) - Closed Specialty Diagnoses / Procedures Referred By Mayda jalloh Referred To Contact Neurology Diagnoses Polyneuropathy Andrea Méndez DO [facility] [facility] [place] [address] [facility] [address] [place] [phone] Referral ID Status Reason Start Date Expiration Date V isits Requested Visits Authorized [id number] Closed Consult, Test & Treat PCP Updated and/or Approved 08/10/2022 08/10/2023 1 1 Encounter Details Date Type Department Care Team (Latest Contact Info) Description 08/10/2022 Transcribe Orders eDH Incoming Referrals [phone] Andrea Méndez DO [address] [place] [address] Polyneuropathy (Primary Dx) Social History Tobacco Use [...] PM EDT Office [place] [phone] [facility] [place] [address] 01/23/2024 2:00 PM EDT Office Visit [place] [address] [facility] [place] [place] [address] Scheduled Referrals Name Type Priority Associated Diagnoses [...] Primary Unspecified hereditary and idiopathic peripheral neuropathy Macromastia Hypertrophy of breast documented in this encounter Care Teams Cable Coverer Relationship Specialty Start Date End Date Glenys Hernandez, JL [address] [place] [address] PCP - General Family Medicine 09/26/21 12/28/22 documented as of this encounter
--- OUTSIDE RECORDS SUMMARY | 2023-11-30 00:08 | XMS_ITS | Encounter Summary ---
Author Organization [facility] [place] [address] Care Team Providers Care Outside Residential Sales Professional Name Role Phone Glenys Hernandez APRN Primary Care Provider [phone] Encounter Details Date Type Department Care Team ([facility] Contact Info) Description 03/07/2022 Telephone [place] [phone] [address] [facility] [place] [address] Social History Tobacco Use Types Packs/Day Years [...] PM EDT Office [place] [phone] Justin Sevilla MD [facility] [place] [address] 01/23/2024 2:00 PM EDT Office Visit [place] [phone] Kenneth Martin MD [facility] [place] [address] documented as of this encounter Goals Goal [...] on filedocumented in this encounter Care Teams Outside Residential Sales Professional Relationship Specialty Start Date End Date Glenys Hernandez APRN [address] [place] [address] PCP - General Family Medicine 09/26/21 12/28/22 documented as of this encounter
--- OUTSIDE RECORDS SUMMARY | 2023-11-30 00:08 | XMS_ITS | Encounter Summary ---
Author Organization [facility] Address [facility] [place] [id number] Care Team Providers Care Verification Manager Name Role Phone Glenys Hernandez APRN Primary Care Provider [phone] Reason for Referral * Consultation (Routine) - Closed Specialty Diagnoses / Procedures Referred By Contac t Referred To Contact Weight and Wellness Diagnoses Class 2 severe obesity with serious comorbidity and body mass index (BMI) of 39.0 to 39.9 in adult, unspecified obesity type Codie Weinberg MD [facility] [place] [address] [facility] [address] [place] [address] Referral ID Status Reason Start Date Expiration Date V isits Requested Visits Authorized [id number] Closed Consult, Test & Treat 10/09/2021 10/09/2022 1 1 * Consultation (Routine) - Closed Specialty Diagnoses / Procedures Referred By Contac t Referred To Contact Sleep Center Diagnoses Class 2 severe obesity with serious comorbidity and body mass index (BMI) of 39.0 to 39.9 in adult, unspecified obesity type Codie Weinberg MD [facility] [place] [address] [facility] Sleep Medicine [address] [place] [address] Referral ID Status Reason Start Date Expiration Date V isits Requested Visits Authorized [id number] Closed Consult, Test & Treat 10/06/2021 10/06/2022 1 1 Reason for Visit * Consultation (Routine) - Closed Specialty Diagnoses / Procedures Referred By Contac t Referred To Contact Weight and Wellness Diagnoses Morbid (severe) obesity due to excess calories morbid obesity Procedures see notes will need diet and psych evals Cele Calloway APRN [facility] [address] [facility] [address] [place] [phone] Referral ID Status Reason Start Date Expiration Date V isits Requested Visits Authorized [id number] Closed Consult, Test & Treat 09/20/2021 09/20/2022 1 1 Encounter Details Date Type Department Care Team (Late st Contact Info) Description 10/06/2021 11:00 AM EDT TH Visit (TeleHealth) Weight and Wellness at [address] [address] Codie Weinberg MD [facility] [place] [id number] Class 2 severe obesity with serious comorbidity [...] were not seen in the office, OUR UROLOGY SURGEON WILL CALL YOU TO SCHEDULE THESE VISITS. If you donot hear from us within a week, please call us at: [phone]. Below is some additional information/resources on this [...] on all of these pillars, and each merchandise team manager, will help you set achievable, actionable goals, [...] the disease of obesity) Appetite control The counterintelligence/humint specialist, The GoGetter and The Sleepy Executive [facility] - Eliza video Sleep apnea and weight https://www.sleepfoundation.org/sleep-apnea/zsudst-vqwa-gfr-sleep-apnea Insulin resistance and weight https://obesitymedicine.org/qmwvybh-jdk-trepnea-resistance/ https://www.secondnature.io/us/guides/diabetes/qsaprhq-uzaqjszmua-zflxor-gain Dr. Sony Acuna: Fasting as a Therapeutic Option for Weight Loss - PiperTube Https://www.youHaven Behavioralube.com/watch?v=es9auidj2hI https://www.Suede Laneube.com/watch?v=93Ycw7ZxVBQ The Mediterranean Diet https://TerraEchos.org/ https://www.MagTag.sipsey.edu/blog/n-xhedyzexd-tfmrj-ug-ywr-iqwfqplekbovs-diet- 8947720554706 An important thing to remember as you [...] are significant. If you cannot complete this mcfp. Bring a log of at least 2 [...] a general recommendation for all patients. Your piping blocker and provider will help make more specific [...] increasing mindfulness throughout the day. Your health career coach is well-equipped to guide you to find something to look forward to everyday. Eating behaviors: many people benefit from restricting the hours in which they eat. You can choose an eating window of 8-12 hours to start. Make a pact with yourself that you will not take in anything with caloric content outside this window. Your piping blocker may make further recommendations documented in this [...] this video visit, pt is located at: [facility] [place] Patient Name: Aydee Johns Date of : 1965 Age: 56 y.o. Referring provider: Cele Calloway Dear Glenys Hernandez APRN, Cele Calloway Thank you for referring Aydee Johns to the [facility]. Aydee Johns presented to the [facility] for a consultative visit regarding obesity management. [...] female with uncontrolled obesity who presented to [facility] today for medical evaluation with associated co-morbidities [...] IFG. No flowsheet data found. 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 [facility] PHQ-2 08/27/2015 Over the LAST 2 WEEKS, [...] extremities Knee to feet bilaterally secondary to Gidla Diagonal, decreased sensation to kimberly arms as well [...] found for: FERRITIN No results found for: MYAQOOQY87 No results found for: 25OHVITD Liver Fibrosis [...] spent a total of 45 minutes in pjjb-eo-hsmw discussion/counseling regarding the diagnosis of obesity, interventions [...] are significant. If you cannot complete this mcfp. Bring a log of at least 2 weekdays and one weekend day to review. Care pathway: Pathway: [facility] PATHWAY - ADULT 10/09/2021 Pre- Bariatric Surgery Activate I spoke with Aydee about opportunities to participate in research and to be contacted by our research oncology physician assistant. They indicated that they are: [] INTERESTED [] NOT INTERESTED // [x] NOT ADDRESSED [facility] Initial Responses 09/26/2021 PHQ-2 SubScore - PHQ-9 [...] EDT Office [place] [address] Justin Sevilla MD [facility] [place] [place] [address] 01/23/2024 2:00 PM EDT Office Visit [facility] [place] [address] Kenneth Martin MD [facility] [address] Scheduled Referrals Name Type Priority Associated Diagnoses Orde r Schedule Referral to Sleep Disorders Center Outpatient Referral Routine Class 2 severe obesity with serious comorbidity and body mass index (BMI) of 39.0 to 39.9 in adult, unspecified obesity type Ordered: 10/06/2021 Amb Referral to [facility] Psych Evaluation Outpatient Referral Routine Class 2 [...] cholesterol Pure hypercholesterolemia High triglycerides Pure hyperglyceridemia Macromastia Hypertrophy of breast documented in this encounter Care Teams Verification Manager Relationship Specialty Start Date End Date Glenys Hernandez, JL [address] [place] [address] PCP - General Family Medicine 09/26/21 12/28/22 documented as of this encounter
--- OUTSIDE RECORDS SUMMARY | 2023-11-30 00:08 | XMS_ITS | Encounter Summary ---
Author Organization [facility] [place] [address] Care Team Providers Care Truck Assembler Name Role Phone Glenys Hernandez APRN Primary Care Provider [phone] Encounter Details Date Type Department Care Team ([facility] Contact Info) Description 12/26/2021 Telephone Weight and Wellness at [address] [address] Светлана Villasenor, MANOJ Social History [...] PM EDT [facility] Key Bed Installer Pre-telemedicine Visit Phone Note Aydee Johns 1965 [x] Patient was not reached Patient was reached and the following information was reviewed/obtained per protocol: [] Confirmed patient name and date of [] Confirmed ZOOM downloaded and functioning [] ZOOM appointment link sent if no MyDH [] Phone number to be reached is: [phone] REVIEW: [] Review of patient medications completed [...] PM EDT Office [place] [phone] Justin Sevilla MD [facility] [place] [address] 01/23/2024 2:00 PM EDT Office Visit [facility] [place] [phone] Kenneth Martin MD [facility] [place] [address] documented as of this encounter Goals Goal [...] on filedocumented in this encounter Care Teams Truck Assembler Relationship Specialty Start Date End Date Glenys Hernandez, FRAME STRIPPER AND CRUSHER [address] [place] [address] PCP - General Family Medicine 09/26/21 12/28/22 documented as of this encounter
--- OUTSIDE RECORDS SUMMARY | 2023-11-30 00:08 | XMS_ITS | Encounter Summary ---
[place] [address] Care Team Providers Care Audioprosthologist Name Role Phone Zoraida Ordoñez MD Primary Care Provider [phone] Reason for Referral * Consultation (Routine) - Closed Specialty Diagnoses / Procedures Referred By Mayda jalloh Referred To Contact General Surgery Diagnoses Weight loss Obesity, unspecified classification, unspecified obesity type, unspecified whether serious comorbidity present Harris Poon MD [address] [place] [address] [facility] [address] [place] [phone] Referral ID Status Reason Start Date Expiration Date V isits Requested Visits Authorized [id number] Closed Consult, Test & Treat PCP Updated and/or Approved 08/15/2021 08/15/2022 6 6 Encounter Details Date Type Department Care Team (Latest Contact Info) Description 08/15/2021 Transcribe Orders eDH Incoming Referrals [phone] Harris Poon MD [address] [place] [address] Weight loss; Obesity, unspecified classification, [...] PM EDT Office [place] [phone] Justin Sevilla MD [facility] [place] [address] 01/23/2024 2:00 PM EDT Office Visit [place] [phone] Kenneth Martin MD [facility] [place] [address] Scheduled Referrals Name Type Priority Associated Diagnoses Orde r Schedule Referral to Bariatric Surgery Program Outpatient Referral Routine Weight loss Obesity, unspecified classification, unspecified obesity type, unspecified whether serious comorbidity present Ordered: 08/15/2021 documented as of this encounter Visit Diagnoses Diagnosis Weight loss Loss of weight Obesity, unspecified classification, unspecified obesity type, unspecified whether serious comorbidity present Macromastia Hypertrophy of breast documented in this encounter Care Teams Audioprosthologist Relationship Specialty Start Date End Date Zoraida Ordoñez MD [address] [place] [address] PCP - General Family Medicine 08/13/21 09/25/21 documented as of this encounter
--- OUTSIDE RECORDS SUMMARY | 2023-11-30 00:08 | XMS_ITS | Encounter Summary ---
[place] [address] Care Team Providers Care Portable Irrigation Operator Name Role Phone Zoraida Ordoñez MD Primary Care Provider [phone] Reason for Visit * Consultation (Routine) - Closed Specialty Diagnoses / Procedures Referred By Mayda t Referred To Contact General Surgery Diagnoses Weight loss Obesity, unspecified classification, unspecified obesity type, unspecified whether serious comorbidity present Harris Poon MD [address] [place] [address] [facility] Gen Surgery [address] [address] Referral ID Status Reason Start Date Expiration Date V isits Requested Visits Authorized [id number] Closed Consult, Test & Treat PCP Updated and/or Approved 08/15/2021 08/15/2022 6 6 Encounter Details Date Type Department Care Team ([facility] Contact Info) Description 08/22/2021 4:00 PM EDT Notes [place] [phone] Social History Tobacco Use Types Packs/Day Years [...] attended the Webex Information Session for the [facility] on 08/22/2021 documented in this encounter Plan of Treatment Upcoming Encounters Date Type Department Care Team (Late st Contact Info) Description 12/25/2023 2:00 PM EDT Office [place] [address] Justin Sevilla MD [facility] [place] [address] 01/23/2024 2:00 PM EDT Office Visit [place] [phone] Kenneth Martin MD [facility] [place] [address] Scheduled Referrals Name Type Priority Associated Diagnoses Orde r Schedule Referral to Bariatric Surgery Program Outpatient Referral Routine Weight loss Obesity, unspecified classification, unspecified obesity type, unspecified whether serious comorbidity present Ordered: 08/15/2021 documented as of this encounter Visit Diagnoses Not on filedocumented in this encounter Care Teams Portable Irrigation Operator Relationship Specialty Start Date End Date Zoraida Ordoñez MD [address] [place] [address] PCP - General Family Medicine 08/13/21 09/25/21 documented as of this encounter
--- OUTSIDE RECORDS SUMMARY | 2023-11-30 00:08 | XMS_ITS | Encounter Summary ---
[place] [address] Care Team Providers Care Per Diem Nurse Name Role Phone Glenys Hernandez APRN Primary Care Provider Encounter Details Date Type Department Care Team (Late st Contact Info) Description 12/29/2021 External Results Weight and Wellness at [address] [address] Erin Gaines, RN Social History Tobacco Use [...] PM EDT Office [place] [phone] Justin Sevilla MD [facility] [place] [place] [address] 01/23/2024 2:00 PM EDT Office Visit [place] [phone] Kenneth Martin MD [facility] [place] [address] documented as of this encounter Goals Goal [...] Procedure Name Priority Date/Time Associated Diagnosis Comments [facility] EXTERNAL LABS 2 Routine 12/22/2021 documented in this encounter Results * (ABNORMAL) [facility] Labs 2 - External (12/22/2021) Hemoglobin A1c 5.9(H) Glucose Fasting 103 Vitamin D Total 25 OH 19.1(L) Thyroid Stimulating Hormone 0.93 Insulin 15.1 Ferritin 120 Iron 76 12/22/2021 Historical Provider EXTERNAL LAB [facility] MENDOZA documented in this encounter Visit Diagnoses Not on filedocumented in this encounter Care Teams Per Diem Nurse Relationship Specialty Start Date End Date Glenys Hernandez, JL [address] [place] [address] PCP - General Family Medicine 09/26/21 12/28/22 documented as of this encounter
--- OUTSIDE RECORDS SUMMARY | 2023-11-30 00:08 | XMS_ITS | Encounter Summary ---
Author Organization [facility] [place] [address] Care Team Providers Care Ambulatory Care Nurse Name Role Phone Glenys Hernandez APRN Primary Care Provider [phone] Encounter Details Date Type Department Care Team ([facility] Contact Info) Description 11/17/2021 Telephone [facility] [place] [address] Isatu Serna RN Social History Tobacco Use [...] triage phone line by Ashlyn Nunez from [facility]. She wanted to get a message to Minnie Muñoz APRN regarding Aydee. Per the message that Ashlyn left, Aydee attended one of the PT therapy sessions that was set up for her (referral from Ms. Toni APRN). When Aydee found out that the PT was for Nitesh technique, she refused to participate. She went for the evaluation, then called the [facility] rehab and said she won'tbe coming back. If we have any questions we can call Ashlyn at [phone] STORMY Linares documented in this encounter Plan of Treatment Upcoming Encounters Date Type Department Care Team (Late st Contact Info) Description 12/25/2023 2:00 PM EDT Office [place] [phone] Justin Sevilla MD [facility] [place] [address] 01/23/2024 2:00 PM EDT Office Visit [facility] [place] [address] Kenneth Martin MD [facility] [place] [address] documented as of this encounter Goals Goal [...] on filedocumented in this encounter Care Teams Ambulatory Care Nurse Relationship Specialty Start Date End Date Glenys Hernandez APRN [address] [place] [address] PCP - General Family Medicine 09/26/21 12/28/22 documented as of this encounter
--- OUTSIDE RECORDS SUMMARY | 2023-11-30 00:08 | XMS_ITS | Encounter Summary ---
Author Organization [facility] [place] [address] Care Team Providers Care Wallpaper Printer Helper Name Role Phone Glenys Hernandez APRN Primary Care Provider [phone] Encounter Details Date Type Department Care Team ([facility] Contact Info) Description 10/13/2021 Telephone [place] [address] Manuela Andrews RN Social History Tobacco Use [...] Muñoz along with her cliinical note to [facility] PT; [facility] as pt reports she is unable to schedule her therapy because [facility] PT had not recieived the referral. Faxed to [phone] (receipt received). Transferred pt's call to pain [...] Office [place] [address] Justin Sevilla MD [facility] [place] [address] 01/23/2024 2:00 PM EDT Office Visit [place] [address] Kenneth Martin MD [facility] [place] [address] documented as of this encounter Goals Goal [...] on filedocumented in this encounter Care Teams Wallpaper Printer Helper Relationship Specialty Start Date End Date Glenys Hernandez, JL [address] [place] [address] PCP - General Family Medicine 09/26/21 12/28/22 documented as of this encounter
--- OUTSIDE RECORDS SUMMARY | 2023-11-30 00:08 | XMS_ITS | Encounter Summary ---
[place] [address] Care Team Providers Care Anti Tank Missileman Name Role Phone Glenys Hernandez APRN Primary Care Provider [phone] Encounter Details Date Type Department Care Team (Late Contact Info) Description 09/20/2021 Telephone Weight and Wellness at [address] [address] Suzi Reid Social History Tobacco [...] PM EDT Office [place] [address] Justin Sevilla MD [facility] [place] [address] 01/23/2024 2:00 PM EDT Office Visit [facility] [place] [address] Kenneht Martin MD [facility] [place] [address] documented as of this encounter Visit Diagnoses Not on filedocumented in this encounter Care Teams Anti Tank Missileman Relationship Specialty Start Date End Date Glenys Hernandez APRN [address] [place] [address] PCP - General Family Medicine 09/26/21 12/28/22 documented as of this encounter
--- OUTSIDE RECORDS SUMMARY | 2023-11-30 00:08 | XMS_ITS | Encounter Summary ---
[place] [address] Care Team Providers Care Learning And Development Intern Name Role Phone Glenys Hernandez APRN Primary Care Provider [phone] Encounter Details Date Type Department Care Team (Late st Contact Info) Description 04/06/2022 Telephone [place] [address] Suzi Reid Social History Tobacco Use Types [...] PM EDT Office [place] [address] Justin Sevilla MD [facility] [place] [address] 01/23/2024 2:00 PM EDT Office Visit [facility] Sp[facility] Center at [facility] [place] [address] Kenneth Martin MD [facility] [place] [address] documented as of this encounter Goals Goal [...] on filedocumented in this encounter Care Teams Learning And Development Intern Relationship Specialty Start Date End Date Glenys Hernandez APRN [address] [place] [address] PCP - General Family Medicine 09/26/21 12/28/22 documented as of this encounter
--- OUTSIDE RECORDS SUMMARY | 2023-11-30 00:08 | XMS_ITS | Encounter Summary ---
Author Organization [facility] [place] [address] Care Team Providers Care Squad Boss Name Role Phone Glenys Hernandez APRN Primary Care Provider [phone] Encounter Details Date Type Department Care Team (Late st Contact Info) Description 11/08/2022 Ancillary Procedure [place] [address] Minnie Muñoz APRN [facility] [place] [address] Social History Tobacco Use Types Packs/Day Years [...] PM EDT Office [place] [address] Justin Sevilla MD [facility] [place] [address] 01/23/2024 2:00 PM EDT Office Visit [place] [address] Kenneth Martin MD [facility] [place] [address] documented as of this encounter Goals Goal [...] MR Spine (11/08/2022 12:00 AM EDT) Narrative [facility] - 02/06/2023 9:41 PM EDT This exam is auto-finalizing. It's purpose is for storage only. Minnie Muñoz APRN IMG FILM LIBRARY OR DERABLES [place], [place] documented in this encounter Visit Diagnoses Not on filedocumented in this encounter Care Teams Squad Boss Relationship Specialty Start Date End Date Gelnys Hernandez APRN [address] [place] [address] PCP - General Family Medicine 09/26/21 12/28/22 documented as of this encounter
--- OUTSIDE RECORDS SUMMARY | 2023-11-30 00:08 | XMS_ITS | Encounter Summary ---
[place] [address] Care Team Providers Care Sueding And Buffing Machine Operator Name Role Phone Glenys Hernandez APRN Primary Care Provider Encounter Details Date Type Department Care Team (Late st Contact Info) Description 09/30/2021 External Results Weight and Wellness at [address] [address] Erin Gaines, RN Social History Tobacco Use [...] Office [place] [address] Justin Sevilla MD [facility] [place] [address] 01/23/2024 2:00 PM EDT Office Visit [place] [address] Kenneth Martin MD [facility] [place] [address] documented as of this encounter Procedures Procedure Name Priority Date/Time Associated Diagnosis Comments [facility] EXTERNAL RESULT PANEL Routine 08/29/2021 documented in this encounter Results * (ABNORMAL) [facility] External Results (08/29/2021) Cholesterol, Total 311(H) [...] Glucose 110(H) Platelet 318 08/29/2021 Historical Provider MD POINT OF CARE BONNIE T ORDERABLES documented in this encounter Visit Diagnoses Not on filedocumented in this encounter Care Teams Sueding And Buffing Machine Operator Relationship Specialty Start Date End Date Glenys Hernandez, NAMED ACCOUNT EXECUTIVE [address] [place] [address] PCP - General Family Medicine 09/26/21 12/28/22 documented as of this encounter
--- OUTSIDE RECORDS SUMMARY | 2023-11-30 00:08 | XMS_ITS | Encounter Summary ---
Author Organization [facility] [place] [address] Care Team Providers Care Repairer Veneer Sheet Name Role Phone Glenys Hernandez APRN Primary Care Provider [phone] Encounter Details Date Type Department Care Team (Latest Contact Info) Description 03/07/2022 11:00 AM EST TH Visit (TeleHealth) Weight and Wellness at [address] [address] Elena Luna, PhD [facility] [address] MICA CHOWDHURY-PSYCHIATRY [place] [id number] Obesity with serious comorbidity, unspecified classification, unspecified [...] [address] WEIGHT AND WELLNESS AT [address] [address] Dept: [phone] 03/07/2022 9:08 AM Aydee Johns is a 57 y.o. female who was referred for evaluation and preparation for potential bariatric surgery. Aydee was seen for 60 minutes. Patient was alone, and was seen Telehealth. Aydee Johns gave permission for and was seen for today's appointment with a Telehealth visit. During this visit they were located at home in [place]. Aydee Johns is aware that for any urgent matter they can call [phone].. RECOMMENDATION BASED ON PSYCHOLOGICAL EVALUATION YELLOW - [...] PM EDT [place] [phone] Justin Sevilla MD [facility] [place] [address] 01/23/2024 2:00 PM EDT Office Visit [place] [phone] Kenneth Martin MD [facility] [place] [address] documented as of this encounter Goals Goal [...] serious comorbidity, unspecified classification, unspecified obesity type Macromastia Hypertrophy of breast documented in this encounter Care Teams Repairer Veneer Sheet Relationship Specialty Start Date End Date Glenys Hernandez APRN [address] [facility] [place] [address] PCP - General Family Medicine 09/26/21 12/28/22 documented as of this encounter
--- OUTSIDE RECORDS SUMMARY | 2023-11-30 00:08 | XMS_ITS | Encounter Summary ---
Author Organization [facility] [place] [address] Care Team Providers Care Business Development Representative Name Role Phone Glenys Hernandez APRN Primary Care Provider [phone] Encounter Details Date Type Department Care Team [...] PM EDT Office Visit Plastic Surgery at [place] [phone] Justin Sevilla MD [facility] [place] [address] 01/23/2024 2:00 PM EDT Office Visit Pain and Spine Center at [place] [phone] Kenneth Martin MD [facility] [place] [address] documented as of this encounter Goals Goal [...] on filedocumented in this encounter Care Teams Business Development Representative Relationship Specialty Start Date End Date Glenys Hernandez APRN [address] [place] [address] PCP - General Family Medicine 09/26/21 12/28/22 documented as of this encounter
--- OUTSIDE RECORDS SUMMARY | 2023-11-30 00:08 | XMS_ITS | Encounter Summary ---
Author Organization [facility] [place] [address] Care Team Providers Care Leak Hunter Name Role Phone Glenys Hernandez APRN Primary Care Provider Encounter Details Date Type Department Care Team ([facility] Contact Info) Description 12/27/2021 2:30 PM EDT TH Visit (TeleHealth) Weight and Wellness at [address] [phone] Codie Weinberg MD [facility] DR MICA CH[place] [address] Elevated cholesterol; High triglycerides; Obstructive sleep apnea; [...] logging food using an jayesh such as [employer] or [employer], paper and pencil is also a good [...] visit, pt is located at: Home in [facility] [place] Patient Name: Aydee Johns Date of : [...] GERD, IFG, migraine. This is Visit #2 [facility] visit for this 56 y.o. patient. 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 Since 2011, steadilygained. Initial weight 10/09/21: 232 lbs 12/27/2021, 231 lbs [facility] Team: Sita Sandoval RD HPI Had lab [...] day, high pain level, low appetite 2 mauritanian sausages with white rice in a tortilla Drinking - coffee with stevia and hazelnut creamer Jaime checklist: + smoker - quit date Sunday No ETOH, no drugs ? PATRICIA - PCP arranging sleep appt No major psych hx No soda drinking Pap 09/2021 [place] scheduled 04/2022 Contraception - abstinence and menopause. AOM: Currently taking: none AOM HX:N/A Medication C/I: Any h/o pancreatitis? NO Any h/o kidney stones? NO Any h/o or FHx of thyroid CA (MTC?) NO Any h/o kidney disease/failure? NO Any h/o glaucoma? YES - had laser procedure ?? Gynecologic: using/taking reliable contraception? Menopause COMORBIDITIES ADDRESSED: PATRICIA + with appliance ([facility]) HTN NO HL YES FLD [...] to sleep med - has worked with [facility] - Dr. West Self-monitoring: Food log Groups of interest: []HLP-ES [] HLP-MS [] HLP-LS []Culinary []ACT []Monthly Lifestyle Classes Discussion 12/27/21: Current pillars reviewed. BSP and requirements discussed. Paperwork reviewed as well. Major barrier is smoking and pt has quit date. Knows to call BS about whether nicotine patches are ok. Will also reach out about PCP letter of support. [facility] PATHWAY - ADULT 10/09/2021 Pre- Bariatric [...] found for: GLUCFASTING No results found for: INHQXMAY43 No results found for: 25OHVITD No results [...] me. 3 min chart review 30 min [id number] Visit time 5 min Documentation time I [...] PM EDT Office [place] [address] Justin Sevilla MD [facility] [place] [address] 01/23/2024 2:00 PM EDT Office Visit [place] [address] Kenneth Martin MD [facility] [place] [address] documented as of this encounter Goals Goal [...] to 39.9 in adult, unspecified obesity type Macromastia Hypertrophy of breast documented in this encounter Care Teams Leak Hunter Relationship Specialty Start Date End Date Glenys Hernandez, GENERAL ENGINEER [address] [place] [address] PCP - General Family Medicine 09/26/21 12/28/22 documented as of this encounter
--- OUTSIDE RECORDS SUMMARY | 2023-11-30 00:08 | XMS_ITS | Encounter Summary ---
Author Organization [facility] [place] [address] Care Team Providers Care Char Puller Name Role Phone Glenys Hernandez APRN Primary Care Provider [phone] Encounter Details Date Type Department Care Team ([facility] Contact Info) Description 12/28/2021 10:30 AM EDT TH Visit (TeleHealth) Weight and Wellness at [facility] [address] [place] [address] [facility] [place] [address] Adult BMI 39.0-39.9 kg/sq m Social History [...] was at home at the following address: [address] [place] [address] Weight Today: Wt Readings from Last 3 Encounters: 12/27/21 104.8 kg (231 lb) 10/06/21 105.2 kg (232 lb) 09/26/21 104.3 kg (230 lb) BMI Readings from Last 3 Encounters: 12/27/21 39.65 kg/m?? 10/06/21 39.82 kg/m?? 09/26/21 39.48 kg/m?? Interview: hard - eating during pain; increased water - very little; occasional smoothie; Weight Loss History: See previous notes from this chief underwriter and [facility] provider for full account Typical [...] [x] Needs additional fuv scheduled with this chief underwriter in Return in about 2 months [...] determined to the best ability of this chief underwriter. Patient will contact bariatric surgery team [...] PM EDT Office [place] [address] Justin Sevilla MD [facility] [place] [address] 01/23/2024 2:00 PM EDT Office Visit [place] [address] Kenneth Martin MD [facility] [place] [address] documented as of this encounter Goals Goal [...] breast documented in this encounter Care Teams Char Puller Relationship Specialty Start Date End Date Glenys Hernandez, JL [address] [place] [address] PCP - General Family Medicine 09/26/21 12/28/22 documented as of this encounter
--- OUTSIDE RECORDS SUMMARY | 2023-11-30 00:08 | XMS_ITS | Encounter Summary ---
Author Organization [facility] [place] [address] Care Team Providers Care Pottery Machine Operator Name Role Phone Nick Menendez MD Primary Care Provider [phone] Encounter Details Date Type Department Care Team (Late st Contact Info) Description 01/25/2021 Ancillary Procedure Radiology at [facility] [address] [place] [address] Homar Astudillo MD [address] [facility] [place] [address] Social History Tobacco Use Types Packs/Day Years [...] PM EDT [place] [address] Justin Sevilla MD [facility] [place] [address] 01/23/2024 2:00 PM EDT Office Visit [place] [address] Kenneth Martin MD [facility] [place] [address] documented as of this encounter Procedures Procedure Name Priority Date/Time Associated Diagnosis Comments FILM LIBRARY STORAGE ONLY MR SPINE Routine 01/25/2021 12:00 AM EDT documented in this encounter Results * Film Library- Storage Only MR Spine (01/25/2021 12:00 AM EDT) Narrative [facility] - 01/26/2021 9:04 AM EDT This exam is auto-finalizing. It's purpose is for storage only. Homar Astudillo MD G FILM LIBRARY ORD ERABLES [place], [place] documented in this encounter Visit Diagnoses Not on filedocumented in this encounter Care Teams Pottery Machine Operator Relationship Specialty Start Date End Date Nick Menendez MD [address] [place] [address] PCP - General General Internal Medicine 03/06/1608/12 documented as of this encounter
--- OUTSIDE RECORDS SUMMARY | 2023-11-30 00:08 | XMS_ITS | Encounter Summary ---
Author Organization [facility] [place] [address] Care Team Providers Care Quality Assurance Calibrator Name Role Phone Glenys Hernandez APRN Primary Care Provider [phone] Encounter Details Date Type Department Care Team (Late st Contact Info) Description 09/18/2022 Ancillary Procedure [place] [phone] Minnie Muñoz APRN [facility] [place] [address] Social History Tobacco Use Types Packs/Day Years [...] PM EDT Office [place] [address] Justin Sevilla MD [facility] [place] [address] 01/23/2024 2:00 PM EDT Office Visit [place] [address] Kenneth Martin MD [facility] [place] [address] documented as of this encounter Goals Goal [...] MR Spine (09/18/2022 12:00 AM EDT) Narrative [facility] - 02/06/2023 9:40 PM EDT This exam is auto-finalizing. It's purpose is for storage only. Minnie Muñoz APRN IMG FILM LIBRARY OR DERABLES [place], [place] documented in this encounter Visit Diagnoses Not on filedocumented in this encounter Care Teams Quality Assurance Calibrator Relationship Specialty Start Date End Date Glenys Hernandez APRN [address] [place] [address] PCP - General Family Medicine 09/26/21 12/28/22 documented as of this encounter
--- OUTSIDE RECORDS SUMMARY | 2023-11-30 00:08 | XMS_ITS | Encounter Summary ---
[place] [address] Care Team Providers Care Waterproofing Machine Operator Name Role Phone Glenys Hernandez APRN Primary Care Provider [phone] Reason for Visit * Reason Onset Date Comments Appointment 12/29/2021 Encounter Details Date Type Department Care Team (Late Contact Info) Description 12/29/2021 Telephone Weight and Wellness at [address] [phone] Suzi Reid Appointment Social History Tobacco Use [...] Upcoming Encounters Date Type Department Care Team ([facility] Contact Info) Description 12/25/2023 2:00 PM EDT Office [place] [phone] Justin Sevilla MD [facility] [place] [address] 01/23/2024 2:00 PM EDT Office Visit Pain and Spine Center at [facility] [place] [address] Kenneth Martin MD [facility] [address] documented as of this encounter Goals Goal [...] on filedocumented in this encounter Care Teams Waterproofing Machine Operator Relationship Specialty Start Date End Date Glenys Hernandez APRN [address] [place] [address] PCP - General Family Medicine 09/26/21 12/28/22 documented as of this encounter
--- OUTSIDE RECORDS SUMMARY | 2023-11-30 00:08 | XMS_ITS | Encounter Summary ---
Author Organization [facility] [place] [address] Care Team Providers Care Coagulation Operator Name Role Phone Glenys Hernandez APRN Primary Care Provider Encounter Details Date Type Department Care Team ([facility] Contact Info) Description 10/05/2021 Telephone Weight and Wellness at [address] [address] Светлана Villasenor, MANOJ Social History [...] PM EDT [facility] Pipe And Boiler Covers Supervisor Pre-telemedicine Visit Phone Note Aydee Johns 1965 [x] Patient was not reached Patient was reached and the following information was reviewed/obtained per protocol: [] Confirmed patient name and date of [] Confirmed ZOOM downloaded and functioning [] ZOOM appointment link sent if no MyDH [] Phone number to be reached is: [phone] REVIEW: [] Review of patient medications completed [...] PM EDT Office Visit Plastic Surgery at [place] [phone] Justin Sevilla MD [facility] [place] [address] 01/23/2024 2:00 PM EDT Office Visit Pain [place] [address] Kenneth Martin MD [facility] [place] [address] documented as of this encounter Visit Diagnoses Not on filedocumented in this encounter Care Teams Coagulation Operator Relationship Specialty Start Date End Date Glenys Hernandez APRN [address] [place] [address] PCP - General Family Medicine 09/26/21 12/28/22 documented as of this encounter
--- OUTSIDE RECORDS SUMMARY | 2023-11-30 00:08 | XMS_ITS | Encounter Summary ---
Author Organization [facility] [place] [address] Care Team Providers Care Buttonhole Maker Name Role Phone Glenys Hernandez APRN Primary Care Provider [phone] Encounter Details Date Type Department Care Team [...] PM EDT Office Visit Plastic Surgery at [place] [phone] Justin Sevilla MD [facility] [place] [address] 01/23/2024 2:00 PM EDT Office Visit Pain and Spine Center at [place] [phone] Kenneth Martin MD [facility] [place] [address] documented as of this encounter Goals Goal [...] on filedocumented in this encounter Care Teams Buttonhole Maker Relationship Specialty Start Date End Date Glenys Hernandez APRN [address] [place] [address] PCP - General Family Medicine 09/26/21 12/28/22 documented as of this encounter
--- OUTSIDE RECORDS SUMMARY | 2023-11-30 00:08 | XMS_ITS | Encounter Summary ---
[place] [address] Care Team Providers Care Line Erector Apprentice Name Role Phone Glenys Hernandez JL Primary Care Provider [phone] Encounter Details Date Type Department Care Team (Late Contact Info) Description 03/09/2022 Telephone [place] [address] Cele Calloway APRN [facility] [place] [address] Social History Tobacco Use Types Packs/Day Years [...] PM EDT Office Visit [place] [address] Justin Sevilla MD [facility] [place] [address] 01/23/2024 2:00 PM EDT Office Visit Pain and Spine Center at [facility] [place] [address] Kenneth Martin MD [facility] [place] [address] documented as of this encounter Goals Goal [...] on filedocumented in this encounter Care Teams Line Erector Apprentice Relationship Specialty Start Date End Date Glenys Hernandez, JL [address] [place] [address] PCP - General Family Medicine 09/26/21 12/28/22 documented as of this encounter
--- OUTSIDE RECORDS SUMMARY | 2023-11-30 00:08 | XMS_ITS | Encounter Summary ---
Author Organization [facility] [place] [address] Care Team Providers Care Tile Ditcher Name Role Phone Glenys Hernandez JL Primary Care Provider [phone] Reason for Referral * Physical Therapy (Routine) - Closed Specialty Diagnoses / Procedures Referred By Contac yeimi Referred To Contact Physical Therapy Diagnoses Radicular pain of left lower extremity Minnie Muñoz APRN [facility] [place] [place] [address] Referral ID Status Reason Start Date Expiration Date V isits Requested Visits Authorized [id number] Closed Evaluate and Treat Non PCP 09/26/2021 03/25/2022 5 5 Reason for Visit * Reason Comments Back Pain Lower back/bilateral leg pain * Consultation (Routine) - Closed Specialty Diagnoses / Procedures Referred By Contashu jalloh Referred To Contact Pain and Spine Center Diagnoses Sciatica, unspecified laterality Chronic low back pain with sciatica, sciatica laterality unspecified, unspecified back pain laterality Low back & left leg pain/ h/o of lumbar surgery 08/2020w/[facility]/ MRI 01/2021 in eD Harris Poon MD [address] [place] [address] [facility] [place] [address] Referral ID Status Reason Start Date Expiration Date V isits Requested Visits Authorized [id number] Closed Consult, Test & Treat PCP Updated and/or Approved 08/15/2021 08/15/2022 6 6 Encounter Details Date Type Department Care Team (Late st Contact Info) Description 09/26/2021 1:15 PM EDT Office Visit [place] [address] Minnie Muñoz APRN [facility] [place] [place] [address] Radicular pain of left lower extremity (Primary [...] from the original note were not included. [facility] Date [...] August 2020 and then she tripped [facility] and had recurrent leg symptoms. She feels that her symptoms are also associated with some neuropathy in her feet. Pain can be anywhere from 4-10 on a scale of 10. [place] [facility] [place] [facility] [place] [facility] and Tylenol she would like [...] Component Summary 21.32 PAST THERAPIES: PT in [place] [facility] Tylenol Functional Status Work-- disabled ADL's---difficulty [...] Knee to feet bilaterally secondary to Gilda [place] Patent, decreased sensation to kimberly arms as well ??? Obstructive sleep apnea 11/03/2015 ??? Stress disorder, posttraumatic 11/04/2015 Past Surgical History: Past Surgical History: Procedure Laterality Date ??? APPENDECTOMY ??? CHOLECYSTECTOMY ??? COLECTOMY ??? COLONOSCOPY ??? PRO LAMINEC/FACETECT/FORAMIN, LUMBAR 1 SEG Left 08/31/2020 LAMINECTOMY, FACETECTOMY & FORAMINOTOMY,LUMBAR, ONE LEVEL (WRVU 15.37) performed by Homar Astudillo MD at [facility] OR Review of Systems: Denies [...] y.o. year-old female who presents to the [facility] With low [...] I also gave her a referral to [facility] where she can do some Nitesh therapy with Ashlyn Butler. She is going to follow-up with me 4 to 6 weeks after her injection. Thank you Dr. Poon for allowing my participation in Aydee Johns's care. Minnie Muñoz, MS, NEGATIVE TURNER-BC, ASSOCIATE AUTOMATION ENGINEER Nurse practitioner Pain management [facility] documented in this encounter Plan of Treatment Upcoming Encounters Date Type Department Care Team (Late st Contact Info) Description 12/25/2023 2:00 PM EDT Office Visit Plastic Surgery at [place] [phone] Justin Sevilla MD [facility] [place] [place] [address] 01/23/2024 2:00 PM EDT Office Visit [place] [address] Kenneth Martin MD [facility] [place] [address] Scheduled Referrals Name Type Priority Associated Diagnoses Orde r Schedule Referral to Physical Therapy Outpatient Referral Routine Radicular pain of left lower extremity Ordered: 09/26/2021 documented as of this encounter Visit Diagnoses Diagnosis Radicular pain of left lower extremity- Primary Thoracic or lumbosacral neuritis or radiculitis, unspecified Macromastia Hypertrophy of breast documented in this encounter Care Teams Tile Ditcher Relationship Specialty Start Date End Date Glenys Hernandez APRN [address] [place] [address] PCP - General Family Medicine 09/26/21 12/28/22 documented as of this encounter
--- OUTSIDE RECORDS SUMMARY | 2023-11-30 00:09 | XMS_ITS | Encounter Summary ---
[place] [address] Care Team Providers Care Remelt Furnace Expediter Name Role Phone Nick Menendez MD Primary Care Provider [phone] Encounter Details Date Type Department Care Team (Late Contact Info) Description 08/27/2020 External Results Pre-Admission Testing at [facility] [address] [place] [phone] Social History Tobacco Use Types Packs/Day Years [...] PM EDT Office [place] [address] Justin Sevilla MD [facility] [place] [address] 01/23/2024 2:00 PM EDT Office Visit [place] [address] Kenneth Martin MD [facility] [place] [address] documented as of this encounter Procedures Procedure [...] on filedocumented in this encounter Care Teams Remelt Furnace Expediter Relationship Specialty Start Date End Date Nick Menendez MD [address] [address] PCP - General General Internal Medicine 03/06/1608/12 documented as of this encounter
--- OUTSIDE RECORDS SUMMARY | 2023-11-30 00:09 | XMS_ITS | Encounter Summary ---
[place] [address] Care Team Providers Care Information Technology Technician Name Role Phone Sheila Cosby MD Primary Care Provider [phone] Encounter Details Date Type Department Care Team ([facility] Contact Info) Description 09/08/2015 Telephone [place] [phone] Cassidy Ware PA [address] [place] [address] Social History Tobacco Use Types Packs/Day Years [...] PM EDT Office [place] [phone] Justin Sevilla MD [facility] [place] [address] 01/23/2024 2:00 PM EDT Office Visit Pain and Spine Center at [place] [phone] Kenneth Martin MD [facility] [place] [address] documented as of this encounter Visit Diagnoses Not on filedocumented in this encounter Care Teams Information Technology Technician Relationship Specialty Start Date End Date Sheila Cosby MD PCP - General Family Medicine 08/27/15 10/11/15 documented as of this encounter
--- OUTSIDE RECORDS SUMMARY | 2023-11-30 00:09 | XMS_ITS | Encounter Summary ---
[place] [address] Care Team Providers Care Cotton Converter Name Role Phone Nick Menendez MD Primary Care Provider [phone] Encounter Details Date Type Department Care Team (Late st Contact Info) Description 07/11/2016 Telephone [place] [address] Liz Helm Social History Tobacco Use Types [...] stated that she lost the form to black pickler her certified letter.. She asked me to [...] PM EDT Office [place] [address] Justin Sevilla MD [facility] [place] [address] 01/23/2024 2:00 PM EDT Office Visit [facility] [place] [address] Kenneth Martin MD [facility] [place] [address] documented as of this encounter Visit Diagnoses Not on filedocumented in this encounter Care Teams Cotton Converter Relationship Specialty Start Date End Date Nick Menendez MD [address] [place] [id number] PCP - General General Internal Medicine 03/06/1608/12 documented as of this encounter
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
--- OUTSIDE RECORDS SUMMARY | 2023-11-30 00:09 | XMS_ITS | Encounter Summary ---
Author Organization [facility] [place] [address] Care Team Providers Care Personal Consultant Name Role Phone JAY Ann, Cassidy Primary Care Provider [phone] Reason for Visit * Reason Comments Obesity Encounter Details Date Type Department Care Team ([facility] Contact Info) Description 10/26/2015 1:30 PM EDT Office Visit General Surgery at [address] [address] Juan David Mcfarlane MD [address] [place] [phone] Morbid obesity due to excess calories; Body [...] assessment. I previously met her at a [facility] informational session on 04/26/15. To summarize, Aydee is a 50 y.o. 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 Her Body mass index is36.46 kg/(m^2). (WWB=543luw, EBW=89lbs). Additional medical problems include obstructive sleep apnea on CPAP, colon polyps, hyperlipidemia, GERD, depression, tobacco abuse, and anxiety. Aydee explainsthat she contracted a viral illness in 2011 while on a trip in [place]. Following that she developedweakness and pain in [...] up with the weight loss program through [facility] and the [facility] to begin the process. She [...] PM EDT Office Visit Plastic Surgery at [place] [phone] Justin Sevilla MD [facility] [place] [address] 01/23/2024 2:00 PM EDT Office Visit [facility] [place] [address] Kenneth Martin MD [facility] [place] [address] documented as of this encounter Visit Diagnoses Diagnosis Morbid obesity due to excess calories Body mass index (BMI) of 36.0-36.9 in adult Body Mass Index 36.0-36.9, adult Obstructive sleep apnea Obstructive sleep apnea (adult) (pediatric) Gastroesophageal reflux disease, esophagitis presence not specified Macromastia Hypertrophy of breast documented in this encounter Care Teams Personal Consultant Relationship Specialty Start Date End Date Cassidy Ware PA PCP - General Family Medicine 10/12/15 03/05/16 documented as of this encounter
--- OUTSIDE RECORDS SUMMARY | 2023-11-30 00:09 | XMS_ITS | Encounter Summary ---
[place] [address] Care Team Providers Care Inpatient Pharmacist Name Role Phone JAY Ann, Cassidy Primary Care Provider [phone] Reason for Visit * Reason Onset Date Comments Other 09/07/2014 compounded scrip t Encounter Details Date Type Department Care Team ([facility] st Contact Info) Description 09/07/2014 Telephone [place] [phone] Song Allen MD [facility] [place] [address] Other (compounded script) Social History Tobacco Use [...] 10/15/2014 3:03 PM EDT Faxed order to [facility]. * Telephone Encounter - Stephanie Strauss RN - 10/15/2014 9:58 AM EDT Call received from brandi Anderson at [facility], asking if we had the signed compounded form from Dr. Allen. Will check with Ramesh and Dr. Allen. * Telephone Encounter - Stephanie Strauss RN - 09/22/2014 8:42 AM EDT Forwarded script on to Dr. Allen to sign. Will fax back to [facility]. * Telephone Encounter - Stephanie Strauss RN [...] office note and compounding order form to [facility] at [phone]. documented in this encounter Plan of Treatment Upcoming Encounters Date Type Department Care Team (Late st Contact Info) Description 12/25/2023 2:00 PM EDT Office [place] [phone] Justin Sevilla MD [facility] [place] [address] 01/23/2024 2:00 PM EDT Office Visit [facility] [place] [address] Kenneth Martin MD [facility] [place] [address] documented as of this encounter Visit Diagnoses Not on filedocumented in this encounter Care Teams Inpatient Pharmacist Relationship Specialty Start Date End Date Cassidy Ware PA PCP - General 09/04/14 08/26/15 documented as of this encounter
--- OUTSIDE RECORDS SUMMARY | 2023-11-30 00:09 | XMS_ITS | Encounter Summary ---
[place] [address] Care Team Providers Care Buggy Operator Name Role Phone Melina Edge MD Primary Care Provider Reason for Visit * Reason Onset Date Comments Referral 05/25/2014 Encounter Details Date Type Department Care Team (Late st Contact Info) Description 05/25/2014 Tele[place] [phone] Linda Cameron Referral Social History Tobacco Use [...] 8:53 AM EST Received 1 page from [facility] XR Report, BILATERAL FEET 03/02/2014 * Telephone Encounter - Linda Cameron - 05/25/2014 11:17 AM EST Ask the patient to verify the following: Full Name: Aydee Johns : 1965 Phone number: [phone] (home) Mailing address: [address] [address] Age: 49 y.o. Appointment date: TBD Appointment [...] When? Where? Who? Notes: 2013 [facility] X-rays: Yes - When? Where? Notes: 02/2014 [place], [place] PH: [phone] FAX: [phone] IMG PUSH MRI: No CT Scan: No Physical therapy: No Injection: Yes - When? Where? Who? Notes: 12/2013 [place], [place] [phone] DR JACQUELYN BARRETT Other diagnostic studies: No Other therapies: No Other specialist(s): Yes - What? When? Where? Who? Notes: [facility] 12/2013 [place], [place] [phone] DR JACQUELYN BARRETT If 2nd (+) opinion get info on previous: No Have you had any surgeries for this issue? No Did surgery include placement of implant/hardware or fixation of any kind? No documented in this encounter Plan of Treatment Upcoming Encounters Date Type Department Care Team (Late st Contact Info) Description 12/25/2023 2:00 PM EDT Office [place] [address] Justin Sevilla MD [facility] [place] [address] 01/23/2024 2:00 PM EDT Office Visit [place] [address] Kenneth Martin MD [facility] [place] [address] documented as of this encounter Visit Diagnoses Not on filedocumented in this encounter Care Teams Buggy Operator Relationship Specialty Start Date End Date Melina Edge MD [address] [place] [id number] PCP - General 05/25/14 07/09/14 documented as of this encounter
--- OUTSIDE RECORDS SUMMARY | 2023-11-30 00:09 | XMS_ITS | Encounter Summary ---
[place] [address] Care Team Providers Care Graduate Teacher Education Name Role Phone Nick Menendez MD Primary Care Provider [phone] Encounter Details Date Type Department Care Team (Late Contact Info) Description 03/06/2016 External Results Neurology at [place] [phone] Song Allen MD [facility] [place] [address] Social History Tobacco Use Types Packs/Day Years [...] PM EDT Office [place] [address] Justin Sevilla MD [facility] [place] [address] 01/23/2024 2:00 PM EDT Office Visit [place] [address] Kenneth Martin MD [facility] [place] [address] documented as of this encounter Procedures Procedure Name Priority Date/Time Associated Diagnosis Comments EMG SCAN Routine 03/06/2016 documented in this encounter Results * Scan Doc: EMG (03/06/2016) Song Allen MD MEDIA MGR SCAN EXT O RDR/RSLT documented in this encounter Visit Diagnoses Not on filedocumented in this encounter Care Teams Graduate Teacher Education Relationship Specialty Start Date End Date Nick Menendez MD [address] [place] [address] PCP - General General Internal Medicine 03/06/1608/12 documented as of this encounter
--- OUTSIDE RECORDS SUMMARY | 2023-11-30 00:09 | XMS_ITS | Encounter Summary ---
Author Organization [facility] [place] [address] Care Team Providers Care Picture Framer Name Role Phone Unavailable Primary Care Provider Unavailabl e Encounter Details Date Type Department Care Team ([facility] Contact Info) Description 02/13/2007 - 02/13/2007 11:59 PM EST Hospital Encounter [place] [phone] Dr Jeannette Temporary Pain Discharge Disposition: Home [...] Upcoming Encounters Date Type Department Care Team ([facility] Contact Info) Description 12/25/2023 2:00 PM EDT Office Visit [place] [address] Justin Sevilla MD [facility] [place] [address] 01/23/2024 2:00 PM EDT Office Visit [facility] [place] [address] Kenneth Martin MD [facility] [place] [address] documented as of this encounter Procedures Procedure Name Priority Date/Time Associated Diagnosis Comments FILM LIBRARY STORAGE ONLY MR HEAD Routine 02/13/2007 12:00 AM EST Pain documented in this encounter Results * Film Library- Storage only MR Head (02/13/2007 12:00 AM EST) Narrative [facility] - 08/17/2015 8:24 AM EDT This exam is for storage only and is auto-finalizing. Dr [facility] FILM LIBRARY ORD ERABLES [place], [place] documented in this encounter Visit Diagnoses Diagnosis Pain Generalized pain Macromastia Hypertrophy of breast documented in this encounter
--- OUTSIDE RECORDS SUMMARY | 2023-11-30 00:09 | XMS_ITS | Encounter Summary ---
Author Organization [facility] [place] [address] Care Team Providers Care Phlebotomist Supervisor/Instructor Name Role Phone Nick Menendez MD Primary Care Provider [phone] Encounter Details Date Type Department Care Team (Late Contact Info) Description 07/14/2020 Ancillary Procedure Radiology at [facility] [address] [place] [phone] Nain Bashir MD [address] [facility] [place] [address] Social History Tobacco Use Types Packs/Day Years [...] PM EDT Office [place] [address] Justin Sevilla MD [facility] [place] [address] 01/23/2024 2:00 PM EDT Office Visit [place] [address] Kenneth Martin MD [facility] [place] [address] documented as of this encounter Procedures Procedure Name Priority Date/Time Associated Diagnosis Comments FILM LIBRARY STORAGE ONLY MR SPINE Routine 07/14/2020 12:00 AM EDT documented in this encounter Results * Film Library- Storage Only MR Spine (07/14/2020 12:00 AM EDT) Narrative [facility] - 07/19/2020 4:36 PM EDT This exam is auto-finalizing. It's purpose is for storage only. Nain Bashir MD IMG FILM LIBRARY OR DERABLES Performing Organization Address City/State/[facility] Co de Phone Number [place], [place] documented in this encounter Visit Diagnoses Not on filedocumented in this encounter Care Teams Phlebotomist Supervisor/Instructor Relationship Specialty Start Date End Date Nick Menendez MD [address] [place] [address] PCP - General General Internal Medicine 03/06/1608/12 documented as of this encounter
--- OUTSIDE RECORDS SUMMARY | 2023-11-30 00:09 | XMS_ITS | Referral Summary ---
Author Organization 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 Yes 01/14/2018 Plan of Treatment Upcoming Encounters Date Type Department Care Team (Late st Contact Info) Description 04/21/2024 15:00 EST Office Visit [facility] Neurology - [address] [address] Robby Abraham MD [address] [place] [address], Level [address] [place] [address] Procedures Procedure Name Priority Date/Time Associated Diagnosis Comments CT CHEST LOW DOSE LUNG SCREENING Routine 05/19/2019 14:44 EST Encounter for screening for lung cancer HEPATITIS C AB W/REFLEX - [facility] Routine 02/28/2019 7:24 EST from Last 3 [...] ORDERABLES * HEPATITIS C AB W/REFLEX - [facility] (02/28/2019 7:24 EST) HEPATITIS C AB W/REFLEX [facility] Negative 02/28/2019 9:16 EST [facility] Comment:Expected Values: Neg ative. 02/28/2019 7:24 EST 02/28/2019 7:24 EST Narrative [facility] - 02/28/2019 9:16 EST Does PT Have a Latex Allergy? NO Robby Abraham MD CHEMISTRY & BLOOD GA S ORDERABLES [facility] from Last 3 Months or Most Recently Relevant to Health Maintenance Care Teams Patient Access Manager Relationship Specialty Start Date End Date Jacey Amador FNP [address] [place] [address] PCP - General Family Medicine - Primary Care 08/30/22
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
--- OUTSIDE RECORDS SUMMARY | 2023-11-30 00:09 | XMS_ITS | Encounter Summary ---
[place] [address] Care Team Providers Care Job Estimator Name Role Phone JAY Ann, Cassidy Primary Care Provider [phone] Encounter Details Date Type Department Care Team (Late Contact Info) Description 01/28/2015 External [place] [address] Provider, Scanning Social History Tobacco Use Types [...] PM EDT Office [place] [address] Justin Sevilla MD [facility] [place] [address] 01/23/2024 2:00 PM EDT Office Visit [facility] [place] [address] Kenneth Martin MD [facility] [place] [address] documented as of this encounter Procedures Procedure Name Priority Date/Time Associated Diagnosis Comments SURGICAL PATHOLOGY SCAN Routine 01/28/2015 documented in this encounter Results * Scan Doc: Surgical Pathology (01/28/2015) Stuart Miner MD MEDIA MGR SCAN EXT O RDR/RSLT documented in this encounter Visit Diagnoses Not on filedocumented in this encounter Care Teams Job Estimator Relationship Specialty Start Date End Date Cassidy Ware PA PCP - General 09/04/14 08/26/15 documented as of this encounter
--- OUTSIDE RECORDS SUMMARY | 2023-11-30 00:09 | XMS_ITS | Encounter Summary ---
Author Organization [facility] [place] [address] Care Team Providers Care Direct Care Staffer Name Role Phone Nick Menendez MD Primary [...] Expiration Date Visits Re quested Visits Authorized [id number] 1 1 Encounter Details Date Type Department Care Team ([facility] Contact Info) Description 08/31/2020 10:19 AM EDT Anesthesia Event [facility] [place] [address] Juan David Crawford CRNA Anesthesia Record Procedure Summary Procedure Name Responsible [...] - Single Lumen 08/31/20; 0955; (R forearm); tmrr-wpb-uyzwnw catheter system; 20 gauge; Lucio Sharif; 01/12/21 (LDA Cleanup utility RA#[id number]); 1649 (LDA Cleanup utility RA#[id number]) 08/31/20 09 by Parminder Sharif RN 01/12/211649 by Nic Ruiz (RETIRED) Peripheral IV Line - Single Lumen 08/31/20; 0958; basilic vein (medial side of arm), right; bubx-tob-[id number] catheter system; Anatomical Landmarks; 20 gauge; Julien Herron Rn; distraction; 01/12/21 (LDA Cleanup utility RA#[id number]); 1649 (LDA Cleanup utility RA#[id number]) 08/31/20 09 by Priti Kilgore RN 01/12/211649 by Nic Ruiz ETT Mask Ventilation: Adjunct (2); ETT Type: Cuffed, Oral; ETT Size: 7 mm; Indirect: Video; Notes: Asleep, Pre-O2, Cricoid Pressure, Stylette; Attempts: 1; Laryngoscopy Grade: 1; ETT Placement Verified By: Auscultation, Capnometry, Visual; Secured at Teeth: 22 cm; Inserted by: Aleta Crawford CRNA; Removal Date: 08/31/20; Removal Time: 1155 08/31/20 1030 by Juan David Crawford CRNA 08/31/20 1155 by Juan David Crawford, ELIAS Incision 08/31/20; 1049; lowe r, posterior; lumbar [...] Procedure Summary Date: 08/31/20 Room / Location: [facility] OR MAIN OR Anesthesia Start: 1019 Anesthesia [...] * Anesthesia Preprocedure Evaluation - Juan David Crawford, SINTERING PRESS OPERATOR - 08/31/2020 10:05 AM EDT Pre-Anesthesia Evaluation for: Aydee Johns a 55 y.o. female. Procedure(s): LAMINECTOMY, FACETECTOMY & FORAMINOTOMY,LUMBAR, ONE LEVEL (WRVU 15.37) Patient Active Problem List Diagnosis ??? [...] Knee to feet bilaterally secondary to Gilda Corona, decreased sensation to kimberly arms as well [...] for a heart test ??? Ez Flu (Flucelvax)(Pf) [Flu Vac Ts 15-16(18,Up)Johanne(Pf)] ??? Flonase [Fluticasone] [...] PM EDT Office [place] [address] Justin Sevilla MD [facility] [place] [address] 01/23/2024 2:00 PM EDT Office Visit [facility] [place] [address] Kenneth Martin MD [facility] [place] [address] documented as of this encounter Visit Diagnoses [...] at 1028, Until Sun08/31/20 at 1209, Anesthesia Intra-op Given 08/31/2020 10:28 [...] mg documented in this encounter Care Teams Direct Care Staffer Relationship Specialty Start Date End Date Nick Menendez MD [address] [place] [address] PCP - General General Internal Medicine 03/06/1608/12 documented as of this encounter
--- OUTSIDE RECORDS SUMMARY | 2023-11-30 00:09 | XMS_ITS | Encounter Summary ---
[place] [address] Care Team Providers Care Soda Clerk Name Role Phone JAY Ann Nataliya Primary Care Provider [phone] Reason for Visit * Reason Comments Advice Only bbr consult * Consultation (Routine) - Closed Specialty Diagnoses / Procedures Referred By Contashu t Referred To Contact Plastic Surgery Diagnoses Macromastia, breast reduction Cassidy Ware PA [address] [place] [address] [facility] [place] [facility] [address] [place] [phone] Referral ID Status Reason Start Date Expiration Date V isits Requested Visits Authorized [id number] Closed Consult, Test & Treat Connection Center PCP Updated and/or Approved 10/13/2015 10/12/2016 1 1 Encounter Details Date Type Department Care Team (Late st Contact Info) Description 10/20/2015 9:30 AM EDT Office [place] [address] Nain Catherine MD [facility] DR PLASTIC SURGERY [place], [place] [id number] Macromastia Social History Tobacco Use Types Packs/Day [...] appointment. Feel free to call our office [phone] if you have any questions or concerns. We monitor the phones from 8-5 Sunday through Sunday. documented in this encounter Progress [...] correct her physical symptomatolgy. She watched the [employer] video on breast reduction, and was provided [...] surgery is best done at a realistic halfway stable weight. We talked about the outpatient [...] revisions for scarring or asymmetry.) Restrepo or [place] Pattern Incision: More scarring on breast, but [...] Timeframe: Elective Procedure: Bilateral breast reduction CPT: 01674 Surgical Technique: Restrepo Surgical site: Breasts Side: [...] aspirin products (unless otherwise advised by patient's PCP/Worsted Winder for cardiac symptoms), fish oil, Vitamin E [...] PM EDT Office [place] [address] Justin Sevilla MD [facility] [place] [address] 01/23/2024 2:00 PM EDT Office Visit [place] [address] Kenneth Martin MD [facility] [place] [address] documented as of this encounter Visit Diagnoses Diagnosis Macromastia Hypertrophy of breast Macromastia Hypertrophy of breast documented in this encounter Care Teams Soda Clerk Relationship Specialty Start Date End Date Cassidy Ware PA PCP - General Family Medicine 10/12/15 03/05/16 documented as of this encounter
--- OUTSIDE RECORDS SUMMARY | 2023-11-30 00:09 | XMS_ITS | Encounter Summary ---
Author Organization [facility] [place] [address] Care Team Providers Care Pull Over Name Role Phone Zoraida Ordoñez MD Primary Care Provider [phone] Encounter Details Date Type Department Care Team (Late st Contact Info) Description 05/19/2011 Ancillary Procedure [place] [phone] Minnie Muñoz, JL [facility] [place] [address] Social History Tobacco Use Types Packs/Day Years [...] PM EDT Office [place] [phone] Justin Sevilla MD [facility] [place] [address] 01/23/2024 2:00 PM EDT Office Visit [place] [address] Kenneth Martin MD [facility] [place] [address] documented as of this encounter Procedures Procedure Name Priority Date/Time Associated Diagnosis Comments FILM LIBRARY STORAGE ONLY DX SPINE Routine 05/19/2011 12:00 AM EST documented in this encounter Results * Film Library- Storage Only DX Spine (05/19/2011 12:00 AM EST) Narrative [facility] - 02/06/2023 9:39 PM EDT This exam is auto-finalizing. It's purpose is for storage only. Minnie Muñoz APRN IMG FILM LIBRARY OR DERABLES Performing Organization Address City/State/[facility] Co de Phone Number [place], [place] documented in this encounter Visit Diagnoses Not on filedocumented in this encounter Care Teams Pull Over Relationship Specialty Start Date End Date Zoraida Ordoñez MD [address] [place] [address] PCP - General 04/26/11 05/24/14 documented as of this encounter
--- OUTSIDE RECORDS SUMMARY | 2023-11-30 00:09 | XMS_ITS | Encounter Summary ---
Author Organization [facility] [place] [address] Care Team Providers Care Demo Specialist Name Role Phone Zoraida Ordoñez MD Primary Care Provider [phone] Encounter Details Date Type Department Care Team (Late st Contact Info) Description 11/27/2013 - 11/27/2013 11:59 PM EDT Hospital Encounter [place] [address] Dr Jeannette Temporary Pain Discharge Disposition: Home [...] PM EDT Office [place] [address] Justin Sevilla MD [facility] [place] [address] 01/23/2024 2:00 PM EDT Office Visit [place] [address] Kenneth Martin MD [facility] [address] documented as of this encounter Procedures Procedure Name Priority Date/Time Associated Diagnosis Comments FILM LIBRARY STORAGE ONLY MR HEAD Routine 11/27/2013 12:00 AM EDT Pain documented in this encounter Results * Film Library- Storage only MR Head (11/27/2013 12:00 AM EDT) Narrative [facility] - 08/17/2015 8:24 AM EDT This exam is for storage only and is auto-finalizing. Dr Reyes [facility] FILM LIBRARY ORD ERABLES [place], [place] documented in this encounter Visit Diagnoses Diagnosis Pain Generalized pain Macromastia Hypertrophy of breast documented in this encounter Care Teams Demo Specialist Relationship Specialty Start Date End Date Zoraida Ordoñez MD [address] [place] [address] PCP - General 04/26/11 05/24/14 documented as of this encounter
--- OUTSIDE RECORDS SUMMARY | 2023-11-30 00:09 | XMS_ITS | Encounter Summary ---
Author Organization [facility] [place] [address] Care Team Providers Care Plan Rep Name Role Phone JAY Ann, Cassidy Primary Care Provider [phone] Reason for Referral * MRI/CAT Scan - Specialty Diagnoses / Procedures Referred By Mayda jalloh Referred To Contact Procedures NM myocardial perfusion - stress & rest Christian Pineda Jr., MD [address] [place] [address] Referral ID Status Reason Start Date Expiration Date V isits Requested Visits Authorized [id number] 01/04/2015 07/03/2015 1 1 Reason for Visit * Reason Comments Chest Pain Encounter Details Date Type Department Care Team (Late st Contact Info) Description 01/04/2015 9:00 AM EDT Procedure visit [facility] [address] [facility] [place] [phone] Christian Pineda Jr., MD [address] [place] [address] Non-cardiac chest pain Social History Tobacco Use [...] PM EDT Office [place] [phone] Justin Sevilla MD [facility] [place] [address] 01/23/2024 2:00 PM EDT Office Visit [place] [address] Kenneth Martin MD [facility] [place] [address] documented as of this encounter Procedures Procedure Name Priority Date/Time Associated Diagnosis Comments NM EXERCISE STRESS AND REST MYOCARDIAL PERFUSION Routine 01/04/2015 documented in this encounter Results * NM myocardial perfusion - stress & rest (01/04/2015) Anatomical Region Laterality Modality Other Narrative 01/04/2015 [facility] MIBI Stress Test- Final Report ?Aydee Johns 1965 [facility], [address] [facility], [place] [address] Primary Physician: JAY NGUYEN (General) ? Indication: [...] Spect-normal Electronically signed: Christian Pineda Jr, MD [facility] ??Date: 01/04/2015 Historical Provider MD HAN NM ORDERABLES documented in this encounter Visit Diagnoses Diagnosis Non-cardiac chest pain Other chest pain Macromastia Hypertrophy of breast documented in this encounter Care Teams Plan Rep Relationship Specialty Start Date End Date Cassidy Ware PA PCP - General 09/04/14 08/26/15 documented as of this encounter
--- OUTSIDE RECORDS SUMMARY | 2023-11-30 00:09 | XMS_ITS | Encounter Summary ---
[place] [address] Care Team Providers Care Golf Ball Inspector Name Role Phone JAY Ann, Cassidy Primary Care Provider [phone] Reason for Visit * Reason Onset Date Comments Other 01/24/2016 Other Encounter Details Date Type Department Care Team ([facility] st Contact Info) Description 01/24/2016 Telephone [place] [phone] Song Allen MD [facility] [place] [address] Other (Other) Social History Tobacco Use Types [...] / Relation to pt: Caller Contact Number: [phone] Best time to reach pt back: Anytime Reason for call: Patient called in stating the transportation favian needs the To fill out a PA for the transportation. Patient states we can call [phone] for more information. Patient states she would [...] PM EDT Office [place] [address] Justin Sevilla MD [facility] [place] [address] 01/23/2024 2:00 PM EDT Office Visit [place] [address] Kenneth Martin MD [facility] [place] [address] documented as of this encounter Visit Diagnoses Not on filedocumented in this encounter Care Teams Golf Ball Inspector Relationship Specialty Start Date End Date Cassidy Ware PA PCP - General Family Medicine 10/12/15 03/05/16 documented as of this encounter
--- OUTSIDE RECORDS SUMMARY | 2023-11-30 00:09 | XMS_ITS | Encounter Summary ---
Author Organization [facility] [place] [address] Care Team Providers Care Senior Games Technician Name Role Phone Nick Menendez MD Primary Care Provider Encounter Details Date Type Department Care Team ([facility] Contact Info) Description 08/24/2020 9:45 AM EDT Telephone Pre-Admission Testing at [facility] [place] [address] Social History Tobacco Use Types Packs/Day Years [...] []Yes [x]No Have you traveled outside the [facility] in the PAST 14 DAYS? []Yes [x]No [...] PM EDT Office [place] [address] Justin Sevilla MD [facility] [place] [address] 01/23/2024 2:00 PM EDT Office Visit [place] [address] Kenneth Martin MD [facility] [place] [address] documented as of this encounter Visit Diagnoses Not on filedocumented in this encounter Care Teams Senior Games Technician Relationship Specialty Start Date End Date Nick Menendez MD [address] [place] [address] PCP - General General Internal Medicine 03/06/1608/12 documented as of this encounter
--- OUTSIDE RECORDS SUMMARY | 2023-11-30 00:09 | XMS_ITS | Encounter Summary ---
Author Organization [facility] [place] [address] Care Team Providers Care Bi Architect Name Role Phone JAY Ann, Cassidy Primary Care Provider [phone] Reason for Visit * Reason Onset Date Comments Other 12/25/2014 Encounter Details Date Type Department Care Team ([facility] st Contact Info) Description 12/25/2014 [place] [phone] Song Allen MD [facility] [place] [address] Other Social History Tobacco Use Types Packs/Day [...] Allen doesn't work. Instructed patient that Dr. Allen paralegal secretary Obdulio will be calling her to set [...] PM EDT Office [place] [address] Justin Sevilla MD [facility] [place] [address] 01/23/2024 2:00 PM EDT Office Visit [place] [address] Kenneth Martin MD [facility] [place] [address] documented as of this encounter Visit Diagnoses Not on filedocumented in this encounter Care Teams Bi Architect Relationship Specialty Start Date End Date Cassidy Ware PA PCP - General 09/04/14 08/26/15 documented as of this encounter
--- OUTSIDE RECORDS SUMMARY | 2023-11-30 00:09 | XMS_ITS | Encounter Summary ---
Author Organization [facility] [place] [address] Care Team Providers Care Extractor Filler Name Role Phone JAY Ann, Cassidy Primary Care Provider [phone] Encounter Details Date Type Department Care Team ([facility] Contact Info) Description 02/22/2015 2:30 PM EST [place] [address] Song Allen MD [facility] [place] [address] Chronic pain; Bilateral leg paresthesia Social History [...] sleep apnea. She said she saw a preflight inspector locally through her PCP. She said she [...] History: She lives with her cousin in [place]. She does not currently work due to pain. She says she is looking into getting disability. She has been denied. She smokes a pack a day. She does not drink alcohol. 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 On physical [...] pain in the cervical paraspinal muscles, deltoids. Dimmitt-Hallpike to the left was negative. Samuel-Hallpike to [...] the lower extremities in the past through [facility] was unremarkable. Per my previous note, she [...] question of fibromyalgia. She could see her preflight inspector locally or we could always get a Rheumatology opinion here at [facility] for her chronic pain and question Fibromyalgia [...] PM EDT Office [place] [address] Justin Sevilla MD [facility] [place] [address] 01/23/2024 2:00 PM EDT Office Visit [place] [address] Kenneth Martin MD [facility] [place] [address] documented as of this encounter Visit Diagnoses Diagnosis Chronic pain Other chronic pain Bilateral leg paresthesia Disturbance of skin sensation Macromastia Hypertrophy of breast documented in this encounter Care Teams Extractor Filler Relationship Specialty Start Date End Date Cassidy Ware PA PCP - General 09/04/14 08/26/15 documented as of this encounter
--- OUTSIDE RECORDS SUMMARY | 2023-11-30 00:09 | XMS_ITS | Encounter Summary ---
Author Organization [facility] Address [place] [id number] Care Team Providers Care Bluing Oven Tender Name Role Phone Sheila Cosby MD Primary Care Provider [phone] Reason for Visit * Consultation (Routine) - Closed Specialty Diagnoses / Procedures Referred By Mayda jalloh Referred To Contact Neurology Diagnoses Unspecified disturbances of skin sensation Other symptoms and signs involving cognitive functions and awareness Chronic pain syndrome Please have patient seen in MS clinic for ? MS ChazCassidy PA [address] [place] [address] Justin Mir MD [facility] [place] [address] Referral ID Status Reason Start Date Expiration Date V isits Requested Visits Authorized [id number] Closed PCP Updated and/or Approved 08/23/2015 08/22/2016 1 1 Encounter Details Date Type Department Care Team ([facility] Contact Info) Description 08/27/2015 8:30 AM EDT [place] [address] Justin Mir MD [facility] [place] [address] Neuritis Social History Tobacco Use Types Packs/Day [...] Mir MD - 08/27/2015 8:33 AM EDT [phone] 64 minutes Cassidy Ware Dear , Thank you for asking the [facility] to see your patient, Aydee Johns. She is a 50 y.o.woman being seen here to r/o MS. Her symptom is primarily numbness that is everywhere. She came with a list of symptoms, because my memory stinks. She has not worked in two years, because I have nonstop pain and numbness. She has seen in [facility]. She first noted the symptom in 2011. She said that she has had numbness with migraines similar to her current sensations of numbness, but these were usually associated with headahes. In 2011 she had a very severe viral illness contracted in [place], where she lived for 5 months, resulting [...] history, exam, and normal MRIs of the TECHNICAL SOLUTIONS ENGINEER are consistent with a mild post-infectious neuropathy. [...] a mild myelopathy and the illness in [place] could have triggered a myelitis; if so, cervical spine MRI may reveal a parenchymal lesion, and you may wish to consider ordering this if it has not been performed since 2011. I don't think it needs to be repeated if is correct that it has already been done. MD Damaso Blanchard Professor of Neurology Department of Neurology [employer] [facility] [employer] and [address] [address] At least 40 minutes of this 64 [...] PM EDT Office Visit Plastic Surgery at [place] [phone] Justin Sevilla MD [facility] [place] [place] [address] 01/23/2024 2:00 PM EDT Office Visit [facility] at [place] [address] Kenneth Martin MD [facility] [place] [place] [address] documented as of this encounter Visit Diagnoses Diagnosis Neuritis Neuralgia, neuritis, and radiculitis, unspecified Macromastia Hypertrophy of breast documented in this encounter Care Teams Bluing Oven Tender Relationship Specialty Start Date End Date Sheila Cosby MD PCP - General Family Medicine 08/27/15 10/11/15 documented as of this encounter
--- OUTSIDE RECORDS SUMMARY | 2023-11-30 00:09 | XMS_ITS | Encounter Summary ---
Author Organization [facility] [place] [address] Care Team Providers Care Meat And Seafood Clerk Name Role Phone Nick Menendez MD Primary Care Provider Encounter Details Date Type Department Care Team (Late st Contact Info) Description 06/14/2018 Ancillary Procedure [place] [address] Nick Menendez MD [address] [place] [id number] Social History Tobacco Use Types Packs/Day Years [...] PM EDT Office [place] [address] Justin Sevilla MD [facility] [place] [address] 01/23/2024 2:00 PM EDT Office Visit [place] [address] Kenneth Martin MD [facility] [place] [address] documented as of this encounter Procedures Procedure Name Priority Date/Time Associated Diagnosis Comments FILM LIBRARY STORAGE ONLY MR HEAD AND SPINE Routine 06/14/2018 12:00 AM EST documented in this encounter Results * Film Library- Storage Only MR Head and Spine (06/14/2018 12:00 AM EST) Narrative [facility] - 06/21/2018 1:07 PM EDT This exam is auto-finalizing. It's purpose is for storage only. Nick Menendez MD G FILM LIBRARY ORD ERABLES [place], [place] documented in this encounter Visit Diagnoses Not on filedocumented in this encounter Care Teams Meat And Seafood Clerk Relationship Specialty Start Date End Date Nick Menendez MD [address] [place] [address] PCP - General General Internal Medicine 03/06/1608/12 documented as of this encounter
--- OUTSIDE RECORDS SUMMARY | 2023-11-30 00:09 | XMS_ITS | Encounter Summary ---
[place] [address] Care Team Providers Care Turner In Name Role Phone Melina Edge MD Primary Care Provider Encounter Details Date Type Department Care Team (Late st Contact Info) Description 09/17/2013 Orders Only Orthopaedics at [place] [phone] Linwood Escoto DPM [facility] [place] [address] Social History Tobacco Use Types Packs/Day Years [...] Office Visit Plastic Surgery at [place] [phone] Justin Sevilla MD [facility] [place] [address] 01/23/2024 2:00 PM EDT Office Visit [facility] at [place] [phone] Kenneth Martin MD [facility] [place] [place] [address] documented as of this encounter Procedures Procedure [...] on filedocumented in this encounter Care Teams Turner In Relationship Specialty Start Date End Date Melina Edge MD [address] [place] [address] PCP - General 05/25/14 07/09/14 documented as of this encounter
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
--- OUTSIDE RECORDS SUMMARY | 2023-11-30 00:09 | XMS_ITS | Encounter Summary ---
Author Organization [facility] [place] [address] Care Team Providers Care Chief Fundraising Officer Name Role Phone JAY Ann, Cassidy Primary Care Provider [phone] Encounter Details Date Type Department Care Team (Latest Contact Info) Description 2015 2:41 PM EDT - 2015 11:59 PM EDT [place] [phone] Stuart Miner MD [facility] [place] [address] Discharge Disposition: Home Social History Tobacco Use [...] PM EDT Office [place] [address] Justin Sevilla MD [facility] [place] [address] 01/23/2024 2:00 PM EDT Office Visit [place] [address] Kenneth Martin MD [facility] [place] [address] documented as of this encounter Visit Diagnoses Not on filedocumented in this encounter Care Teams Chief Fundraising Officer Relationship Specialty Start Date End Date Cassidy Ware PA PCP - General 09/04/14 08/26/15 documented as of this encounter
--- OUTSIDE RECORDS SUMMARY | 2023-11-30 00:09 | XMS_ITS | Encounter Summary ---
Author Organization [facility] [place] [address] Care Team Providers Care Horse Trekking Guide Name Role Phone JAY Ann, Cassidy Primary Care Provider [phone] Encounter Details Date Type Department Care Team (Latest Contact Info) Description 2015 10:00 AM EDT [place] [address] Stuart Miner MD [facility] [place] [address] Small fiber neuropathy Social History Tobacco Use [...] MD - 2015 10:26 AM EDT Aydee Johns here for for bilevel skin biopsy at [...] PM EDT Office [place] [address] Justin Sevilla MD [facility] [place] [address] 01/23/2024 2:00 PM EDT Office Visit [place] [address] Kenneth Martin MD [facility] [place] [address] documented as of this encounter Procedures Procedure Name Priority Date/Time Associated Diagnosis Comments SURGICAL PATHOLOGY REPORT Routine 2015 11:24 AM EDT [facility] Routine 2015 10:29 AM EDT [facility] Routine 2015 10:29 AM EDT documented in this encounter Results * Surgical Pathology Report (2015 11:24 AM EDT) Final Diagnosis The signing pathologist has (i) examined the relevant preparation(s) for the specimen(s) and (ii) rendered or confirmed the diagnosis(es). Accession Number: [id number] ?Location: 3C . ? Addendum ADDENDUM DISCUSSION SPECIAL TEST PERFORMED: Test: ??Sweat Gland Nerve Fiber Density Test [facility] Case: ??[id number] Performing Lab: ??[facility] Performing Lab Case: ??[id number] Reported by Aime Gordon MD Date reported: ??02/01/15 Calf skin shows a normal sweat gland nerve fiber density. ??There were no sweat glands in the thigh skin sample. ??For the full text of the [facility] reports please refer to Non- Documentation Pathology in the electronic health record (eDH). 02/02/15 [facility] 02/02/15 Verified by: ? Cecily ANTHONY, Aime Valencia ?Pathologist ?(Electronic Signature) The attending pathologist whose signature appears on this report has reviewed all diagnostic slides and has edited the gross and/or microscopic portion of the report in rendering the final pathologic diagnosis. ? Addendum ADDENDUM DISCUSSION SPECIAL TEST PERFORMED: Test: ??Epidermal Nerve Fiber Density Test [facility] Case: ??[id number] Performing Lab: ??[facility] Performing Lab Case: ??[id number] Reported by Pelon Bauman MD Date reported: [...] skin punch biopsies which are submitted to [facility] for epidermal nerve fiber density testing. ??See separate report from [facility]. 01/19/15 [facility] 01/22/15 Verified by: ? Aime Tony MD ?Pathologist ?(Electronic Signature) The attending pathologist whose signature appears on this report has reviewed all diagnostic slides and has edited the gross and/or microscopic portion of the report in rendering the final pathologic diagnosis. DISCUSSION No histological studies are performed at [facility] ADDITIONAL STUDIES none CLINICAL INFORMATION Specimen Submitted: A - Right thigh, skin punch B - Right distal leg, skin punch Clinical History: Neuropathy both feet FROZEN SECTION none SPECIMEN PROCESSING Received are 2 skin punch biopsies which are submitted to [facility] for epidermal nerve fiber density testing. [facility] [address] [place] [address] ??[id number] 02/02/2015 11:43 AM EDT [facility] SPECIMEN FROM SKIN / Unknown 2015 11:24 AM EDT 2015 11:24 AM EDT Stuart Miner MD PATHOLOGY/CYTOLOGY O RDERABLES Performing Organization Address City/State/[facility] Phone Number [facility] [place] [address] * [facility] (2015 10:29 AM EDT) [facility] See Note CERNER MILLENNIUM Comment: The ordered test is: Sweat Gland Nerve Fiber Density Test performed by: [facility]; [address] [place] [address] The test result is: Please see scanned report in Chart Review under the Non- Laboratory Heading. Specimen of unknown material (specimen) Other / Unknown 2015 10:29 AM EDT 02/02/2015 10:10 AM EDT Stuart Miner MD LAB SEND OUT ORDERAB LES Performing Organization Address [facility] Co de Phone Number [facility] * [facility] (2015 10:29 AM EDT) Pathologist [facility] Send[facility] See Note CERNER MILLENNIUM Comment: The ordered test is: Epidermal Nerve Fiber Density Test performed by: [facility]; [address] [place] [address] The test result is: Please see scanned report in Chart Review under the Non- Laboratory Heading. Specimen of unknown material (specimen) Other / Unknown 2015 10:29 AM EDT 2015 11:44 AM EDT Stuart Miner MD LAB SEND OUT ORDERAB LES Performing Organization Address City/[facility]/ZIP Co de Phone Number [facility] documented in this encounter Visit Diagnoses Diagnosis Small fiber neuropathy Unspecified hereditary and idiopathic peripheral neuropathy Macromastia Hypertrophy of breast documented in this encounter Care Teams Horse Trekking Guide Relationship Specialty Start Date End Date Cassidy Ware PA PCP - General 09/04/14 08/26/15 documented as of this encounter
--- OUTSIDE RECORDS SUMMARY | 2023-11-30 00:09 | XMS_ITS | Encounter Summary ---
Author Organization [facility] [place] [address] Care Team Providers Care Deck Specialist Name Role Phone JAY Ann, Cassidy Primary Care Provider [phone] Encounter Details Date Type Department Care Team ([facility] Contact Info) Description 09/04/2014 External [place] [phone] Song Allen MD [facility] [place] [address] Social History Tobacco Use Types Packs/Day Years [...] Upcoming Encounters Date Type Department Care Team ([facility] Contact Info) Description 12/25/2023 2:00 PM EDT Office [place] [address] Justin Sevilla MD [facility] [place] [address] 01/23/2024 2:00 PM EDT Office Visit [place] [address] Kenneth Martin MD [facility] [place] [address] documented as of this encounter Procedures Procedure [...] on filedocumented in this encounter Care Teams Deck Specialist Relationship Specialty Start Date End Date Cassidy Ware PA PCP - General 09/04/14 08/26/15 documented as of this encounter
--- OUTSIDE RECORDS SUMMARY | 2023-11-30 00:09 | XMS_ITS | Encounter Summary ---
[place] [address] Care Team Providers Care Custodial Worker Name Role Phone JAY Ann, Cassidy Primary Care Provider [phone] Encounter Details Date Type Department Care Team (Late Contact Info) Description 02/02/2015 External [place] [address] Provider, Scanning Social History Tobacco Use Types [...] PM EDT Office [place] [address] Justin Sevilla MD [facility] [place] [address] 01/23/2024 2:00 PM EDT Office Visit [place] [address] Kenneth Martin MD [facility] [place] [address] documented as of this encounter Procedures Procedure Name Priority Date/Time Associated Diagnosis Comments SURGICAL PATHOLOGY SCAN Routine 02/02/2015 documented in this encounter Results * Scan Doc: Surgical Pathology (02/02/2015) Stuart Miner MD MEDIA MGR SCAN EXT O RDR/RSLT documented in this encounter Visit Diagnoses Not on filedocumented in this encounter Care Teams Custodial Worker Relationship Specialty Start Date End Date Cassidy Ware PA PCP - General 09/04/14 08/26/15 documented as of this encounter
--- OUTSIDE RECORDS SUMMARY | 2023-11-30 00:09 | XMS_ITS | Encounter Summary ---
[place] [address] Care Team Providers Care Big Data Analytics Lead Name Role Phone Melina Edge MD Primary Care Provider [phone] Encounter Details Date Type Department Care Team (Late st Contact Info) Description 03/02/2014 Orders Only Orthopaedics at [place] [phone] Linwood Escoto DPM [facility] [place] [address] Social History Tobacco Use Types Packs/Day Years [...] PM EDT Office Visit Plastic Surgery at [place] [phone] Justin Sevilla MD [facility] [place] [address] 01/23/2024 2:00 PM EDT Office Visit [facility] [place] [phone] Kenneth Martin MD [facility] [place] [address] documented as of this encounter Procedures Procedure [...] 05/26/2014 This is a Non-reportable exam Parkerdmitri Richards [place] DPM IMG FILM LIBRARY ORD ERABLES documented in this encounter Visit Diagnoses Not on filedocumented in this encounter Care Teams Big Data Analytics Lead Relationship Specialty Start Date End Date Melina Edge MD [address] [place] [id number] PCP - General 05/25/14 07/09/14 documented as of this encounter
--- OUTSIDE RECORDS SUMMARY | 2023-11-30 00:09 | XMS_ITS | Encounter Summary ---
Author Organization [facility] [place] [address] Care Team Providers Care Beam Doffer Name Role Phone Nick Menendez MD Primary Care Provider [phone] Reason for Visit * Auth/Cert Specialty Diagnoses / Procedures Referred By Mayda t Referred To Contact Diagnoses SPONDYLOSIS, FORAMINAL STENOSIS Procedures PRO LAMINEC/FACETECT/FORAMIN, LUMBAR 1 SEG PRO LAMINEC/FACETECT/FORAMIN, EACH ADDNL LAMINECTOMY, FACETECTOMY & FORAMINOTOMY,LUMBAR, ONE LEVEL (WRVU 15.37) ADD'L INTERSPACES CX., THORACIC, LUMBAR (WRVU 3.47) Referral ID Status Reason Start Date Expiration Date Visits Re quested Visits Authorized [id number] 1 1 Encounter Details Date Type Department Care Team (Latest Contact Info) Description 08/31/2020 9:31 AM EDT - 08/31/2020 1:47 PM EDT Hospital Encounter Post Acute Care Unit at [facility] [address] [place] [phone] Homar Astudillo MD [address] [facility] [place] [address] Lumbar spondylosis Discharge Disposition: Home Social History [...] six weeks after surgery with a Physician???s Home Extension Agent at the surgeon???s office. You will have [...] to stop taking it. ??? Only take [id number] or prescription medicine for pain, discomfort or [...] If you have any questions, please call [facility] Neurology and Neurosurgery at [phone], during business hours of Sunday through Sunday from 8:00 a.m. until 4:00 p.m. In case of emergency during non-business hours, please call the same main number and follow the prompts to page the neurosurgeon ironworker. SMOKING CESSATION INFORMATION: ??? [place] QUITLINE: ??? [place] QUITLINE: ??? [email or web address] If you smoke, stop now! Smoking may impede healing. MAKE SURE YOU: ??? Understand these instructions. ??? Will seek medical care if you are feeling poor, or get worse. ??? Will call the surgeon???s office with any questions or concerns at : [phone] The above information has been presented or [...] Astudillo MD - 08/31/2020 10:49 AM EDT [facility] [place] [address] Patient Name: Aydee Johns : [id number] MR#: [id number] Case Date: 08/31/2020 Case Scheduled Time: 1053 Surgeon: Surgeon(s) and Role: * Homar Astudillo MD - Primary Therese Arita PA-C-Assistant Preoperative diagnosis: SPONDYLOSIS, FORAMINAL STENOSIS Postoperative diagnosis: [...] PM EDT Office [place] [address] Justin Sevilla MD [facility] [place] [address] 01/23/2024 2:00 PM EDT Office Visit [facility] at [facility] [place] [address] Kenneth Martin MD [facility] [address] documented as of this encounter Procedures Procedure [...] Homar Astudillo MD IMG FLUORO ORDERABLE S [place], [place] documented in this encounter Visit Diagnoses Diagnosis Lumbar spondylosis Lumbosacral spondylosis without myelopathy Macromastia Hypertrophy of breast documented in this encounter Administered Medications Inactive [...] MD) documented in this encounter Care Teams Beam Doffer Relationship Specialty Start Date End Date Nick Menendez MD [address] [place] [id number] PCP - General General Internal Medicine 03/06/1608/12 documented as of this encounter
--- OUTSIDE RECORDS SUMMARY | 2023-11-30 00:09 | XMS_ITS | Clinical Summary ---
Author Organization [facility] Address [address] [place] [address] Care Team Providers Care Wildfire Prevention Specialist Name Role Phone Jacey Amador Primary Care Provider [phone] Allergies Active Allergy Reactions Criticality Noted Date [...] by [facility] Obstructive sleep apnea syndrome 10/23/2016 Encounters Date Type Department Care Team Description 11/29/2023 Telephone [facility] Neurology [address] [address] Robby Abraham MD Appointment Related from Last 3 Months Surgical History Surgery Date Site/Laterality Comments CHOLECYSTECTOMY 04/09/1997 - 04/08/1998 COLECTOMY 04/09/1999 - 04/08/2000 diverticulitis APPENDECTOMY 04/09/2008 - 04/08/2009 SPINE SURGERY Medical History Medical History Date Comments Chronic back pain Chronic neck pain Headache(784.0) Degenerative joint disease DDD (degenerative disc disease), thoracolumbar Hyperlipidemia Angina at rest ([facility]) SOB (shortness of breath) Diarrhea Environmental allergies Asthma Depression GERD (gastroesophageal reflux disease) Heart murmur Neuromuscular disease ([facility]) Substance abuse ([facility]) Sleep apnea Family History Medical History Relation [...] 39.65 12/17/2018 0749 EDT Plan of Treatment Upcoming Encounters Date Type Department Care Team (Late st Contact Info) Description 04/21/2024 15:00 EST Office Visit [facility] Neurology - [address] [address] Robby Abraham MD [address] [place] [address], Level [address] [place] [address] Health Maintenance Due Date Last Done Comments Pneumococcal Immunization (1 of 2 - PCV) 1971 Lung Cancer Screening 05/19/2020 05/19/2019 COVID-19 Vaccine ( - 2022-24 season) 2022 RSV Immunization ( o r 60+ Years) (1 - 1-dose 60+ series) 2023 Hepatitis C Screen Completed 02/28/2019 Procedures Procedure Name Priority Date/Time Associated Diagnosis Comments CT CHEST LOW DOSE LUNG SCREENING Routine 05/19/2019 14:44 EST Encounter for screening for lung cancer HEPATITIS C AB W/REFLEX - [facility] Routine 02/28/2019 7:24 EST from Last 3 [...] ORDERABLES * HEPATITIS C AB W/REFLEX - [facility] (02/28/2019 7:24 EST) HEPATITIS C AB W/REFLEX - [facility] Negative 02/28/2019 9:16 EST [facility] Comment:Expected Values: Neg ative. 02/28/2019 7:24 EST 02/28/2019 7:24 EST Narrative [facility] - 02/28/2019 9:16 EST Does PT Have a Latex Allergy? NO Robby Abraham MD CHEMISTRY & BLOOD GA S ORDERABLES [facility] from Last 3 Months or Most Recently Relevant to Health Maintenance Care Teams Wildfire Prevention Specialist Relationship Specialty Start Date End Date Jacey Amador FNP Teena [address]ANEY [address] [place] [address] PCP - General Family Medicine - Primary Care 08/30/22
--- OUTSIDE RECORDS SUMMARY | 2023-11-30 00:10 | XMS_ITS | Encounter Summary ---
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 Positive ADRIANA (antinuclear antibody); Malaise and [...] Upcoming Encounters Date Type Department Care Team ([facility] Contact Info) Description 04/21/2024 15:00 EST Office Visit [facility] Neurology - [address] [address] Robby Abraham MD 1 [facility], [address] [place] [phone] documented as of this encounter Procedures Procedure Name Priority Date/Time Associated Diagnosis Comments SS-B (LA) ANTIBODY, IGG Routine 12/17/2018 9:02 EDT Positive ADRIANA (antinuclear antibody) Small fiber neuropathy ZZ[facility] SSA ANTIBODIES BY ALMA ROSA Routine 12/17/2018 9:02 EDT Positive ADRIANA (antinuclear antibody) Small fiber neuropathy SM (AGEE) ANTIBODY, IGG Routine 12/17/2018 9:02 EDT Positive ADRIANA (antinuclear antibody) Small fiber neuropathy CCP ANTIBODIES Routine 12/17/2018 9:02 EDT Positive ADRIANA (antinuclear antibody) Small fiber neuropathy ARTHRITIS 1 Routine 12/17/2018 9:02 EDT Positive ADRIANA (antinuclear antibody) Small fiber neuropathy CLIENT ANALYST ANTIBODY, IGG Routine 12/17/2018 9:0 2 EDT [...] (DS) <12.3 <30 IU/mL 12/19/2018 14:[address] [facility] Comment:Results were obtaine d with the INOVA QUANTA Lite dsDNA SC ALMA ROSA assay. Blood specimen (specimen) BLOOD SPECIMEN / Unknown 12/17/2018 9:02 EDT 12/17/2018 10:10 EDT Carl Flood MD IMMUNOLOGY AND SEROL SAEID ORDERABLES [facility] [address] [place] [address] * ANCA, IFA (12/17/2018 9:02 EDT) ANCA Interpretation Negative Negative 12/18/2018 14:[address] [facility] Comment: ADRIANA Positive, suggest [...] AND SEROL OGY ORDERABLES Performing Organization Address [facility] de Phone Number [facility] [address] [place] [address] * ANGIOTENSIN CONVERTING ENZYME (LESLI) (12/17/2018 9:02 EDT) Angiotensin Converting Enzyme 32 16 - 85 U/L 12/19/2018 8:[address] [facility] Comment: Performed or Referred by: [facility], [address] [place] [id number] Blood specimen (specimen) BLOOD SPECIMEN / Unknown 12/17/2018 9:02 EDT 12/17/2018 10:10 EDT Narrative Authorizing Provider Result Charly Flood MD CHEMISTRY & BLOOD GA S ORDERABLES Performing Organization Address [facility] Number [facility] [address] [place] [address] * SM (AGEE) ANTIBODY (12/17/2018 9:02 EDT) Sm (Agee) Antibody 1.8 <20 Units 12/19/2018 13:[address] [facility] Comment: Negative: <20 Units Weak Positive: 20 - 39 Units Moderate Positive: 40 - 80 Units Strong Positive: >80 Units Results were obtained with the [email or web address].COMVA QUANTA Lite Sm ALMA ROSA. Sm values obtained with different manufacturers' assay methods may not be used interchangeably. The magnitude of the reported IgG levels cannot be correlated to an endpoint titer. Blood specimen (specimen) BLOOD SPECIMEN / Unknown 12/17/2018 9:02 EDT 12/17/2018 10:10 EDT Narrative Authorizing Provider Result Charly Flood MD IMMUNOLOGY AND SEROL OGY ORDERABLES Performing Organization Address [facility]/State/ZIP Co de Phone Number [facility] [address] [place] [address] * (ABNORMAL) ARTHRITIS 1 (12/17/2018 9:02 EDT) Rheumatoid Factor 11 <12.5 IU/mL 2018 12:47 [facility] ADRIANA Interpretation Positive(A) Negative 12/18/2018 14:19 [facility] Comment: For titers greater [...] ADRIANA Titer Pattern 1:320 Homogeneous 12/18/2018 14:19 [facility] Blood specimen (specimen) BLOOD SPECIMEN / Unknown 12/17/2018 9:02 EDT 12/17/2018 10:10 EDT Carl Flood MD IMMUNOLOGY AND SERWALESKA BREAUX ORDERABLES [facility] [address] [place] [address] * (ABNORMAL) COMPLETE BLOOD COUNT AND DIFFERENTIAL (12/17/2018 9:02 EDT) WBC 8.88 4.0 - 12.4 K/cmm 12/17/2018 10:22 [facility] RBC 4.31 3.86 - 5.04 M/cmm 12/17/2018 10:22 [facility] Hemoglobin 13.8 11.6 - 15.2 gm/dl 12/17/2018 10:22 [facility] HCT 40.6 34.9 - 44.4 % 12/17/2018 10:22 [facility] MCV 94 81 - 98 fl 12/17/2018 10:22 [facility] MCH 32.0 26.7 - 33.3 pg 12/17/2018 10:22 [facility] MCHC 34.0 32.1 - 35.9 gm/dl 12/17/2018 10:22 [facility] RDW-CV 11.9 <14.7 % 12/17/2018 10:22 [facility] RDW-SD 41.2 <50.4 fl 12/17/2018 10:22 [facility] PLT 316 141 - 377 K/cmm 12/17/2018 10:22 [facility] MPV 9.5 9.5 - 12.7 fl 12/17/2018 10:22 [facility] % Neutrophils 50.4 % 12/17/2018 10:22 [facility] % Lymphocytes 38.3 % 12/17/2018 10:22 [facility] % Monocytes 7.0 % 12/17/2018 10:22 [facility] % Eosinophils 3.5 % 12/17/2018 10:22 [facility] % Basophils 0.6 % 12/17/2018 10:22 [facility] % Immature Grans 0.2 % 12/17/2018 10:22 [facility] ABS Neutrophils 4.48 2.20 - 8.85 K/cmm 12/17/2018 10:22 [facility] ABS Lymphs 3.40(H) 1.09 - 3.30 K/cmm 12/17/2018 10:22 [facility] ABS Monocytes 0.62 0.1 - 0.8 K/cmm 12/17/2018 10:22 [facility] ABS Eosinophils 0.31 0.03 - 0.61 K/cmm 12/17/2018 10:22 [facility] ABS Basophils 0.05 0.01 - 0.11 K/cm 12/17/2018 10:22 [facility] ABS Immature Grans 0.02 0 - 0.06 K/cm 12/17/2018 10:22 [facility] Type of Diff: Automated 12/17/2018 10:22 [facility] Blood specimen (specimen) BLOOD SPECIMEN / Unknown 12/17/2018 9:02 EDT 12/17/2018 10:10 EDT Carl Flood MD PACKAGES & DNA PROBE ORDERABLES [facility] [address] [place] [address] * (ABNORMAL) COMPREHENSIVE METABOLIC PANEL (CMP) (12/17/2018 9:02 EDT) Potassium 3.9 3.5 - 5.0 mEq/L 12/17/2018 12:00 [facility] Sodium 141 136 - 145 mEq/L 12/17/2018 12:00 [facility] Chloride 103 96 - 110 mEq/L 12/17/2018 12:00 [facility] CO2 29 22 - 32 mEq/L 12/17/2018 12:00 [facility] Total Alkaline Phosphatase 56 38 - 126 U/L 12/17/2018 12:00 [facility] Bilirubin, Total <0.5 <1.4 mg/dl 12/18/19 19 12:00 [facility] AST 20 15 - 46 U/L 12/17/2018 12:00 [facility] ALT 18 <34 U/L 12/17/2018 12:00 [facility] Albumin 4.4 3.4 - 4.9 g/dl 12/17/2018 12:00 [facility] Total Protein 7.2 6.3 - 8.2 g/dl 12/17/2018 12:00 [facility] Creatinine 0.59 0.52 - 1.04 mg/dl 12/17/2018 12:00 [facility] GFR, Calculated 104 >60 ml/min/1.7 3m2 12/17/2018 12:00 [facility] Comment: eGFR calculated using CKD-EPI equation for non Americans. Multiply eGFR by 1.16 for Americans. BUN 7(L) 10 - 26 mg/dl 12/17/2018 12:[address] [facility] Calcium 10.1 8.5 - 10.5 mg/dl 12/17/2018 12:[address] [facility] Calculated Calcium 9.8 8.5 - 10.5 mg/dl 12/17/2018 12:[address] [facility] Glucose, Serum 98 70 - 100 mg/dl 12/17/2018 12:[address] [facility] Fasting? No 12/17/2018 8:[address] [facility] Blood specimen (specimen) BLOOD SPECIMEN / Unknown 12/17/2018 9:02 EDT 12/17/2018 10:10 EDT Narrative Authorizing Provider Result Charly Flood MD CHEMISTRY & BLOOD GA S ORDERABLES Performing Organization Address [facility] Co de Phone Number [facility] [address] [place] [address] * CK (12/17/2018 9:02 EDT) CK 55 30 - 135 U/L 12/17/2018 11:[address] [facility] Blood specimen (specimen) BLOOD SPECIMEN / Unknown 12/17/2018 9:02 EDT 12/17/2018 10:10 EDT Narrative Authorizing Provider Result Charly Flood MD CHEMISTRY & BLOOD GA S ORDERABLES Performing Organization Address City/[facility]/ZIP Co de Phone Number [facility] [address] [place] [address] * CCP ANTIBODIES (12/17/2018 9:02 EDT) CCP Antibodies <2.5 <5.0 U/mL 12/17/2018 13:[address] [facility] BLOOD SPECIMEN / Unknown 12/17/2018 9:02 EDT 12/17/2018 10:10 EDT Narrative Authorizing Provider Result Charly Flood MD IMMUNOLOGY AND SEROL OGY ORDERABLES Performing Organization Address City/[facility]/ZIP Co de Phone Number [facility] [address] [place] [address] * (ABNORMAL) C REACTIVE PROTEIN (12/17/2018 9:02 EDT) C Reactive Protein 11.4(H) <10.0 mg/L 12/17/2018 12:[address] [facility] Blood specimen (specimen) BLOOD SPECIMEN / Unknown 12/17/2018 9:02 EDT 12/17/2018 10:10 EDT Narrative Authorizing Provider Result Charly Flood MD CHEMISTRY & BLOOD GA S ORDERABLES Performing Organization Address [facility]/ZIP Co de Phone Number [facility] [address] [place] [address] * SPEP, INCLUDES QUANTITATION OF MONOCLONAL SPIKE (12/17/2018 9:02 EDT) Total Protein 7.0 6.3 - 8.2 g/dl 12/17/2018 11:[address] [facility] Albumin % 63.3 55.8 - 66.1 % 12/18/2018 14:11 [facility] Alpha-1 % 3.6 2.9 - 4.9 % 12/18/2018 14:11 [facility] Alpha-2 % 10.1 7.1 - 11.8 % 12/18/2018 14:11 [facility] Beta % 11.4 8.4 - 13.1 % 12/18/2018 14:11 [facility] Gamma % 11.6 11.1 - 18.8 % 12/18/2018 14:11 [facility] Comments 12/18/2018 14:11 [facility] Comment: No apparent monoclonal protein on serum electrophoresis. See Pathology Scanned Report in EPIC. Blood specimen (specimen) BLOOD SPECIMEN / Unknown 12/17/2018 9:02 EDT 12/17/2018 10:10 EDT Carl Flood MD CHEMISTRY & BLOOD GA S ORDERABLES Performing Organization Address City/[facility]/ZIP Co de Phone Number [facility] [address] [place] [address] * SSA ANTIBODIES BY ALMA ROSA (12/17/2018 9:02 EDT) SSA Antibody 3.2 <20 Units 12/19/2018 13:[address] [facility] Comment: Negative: <20 Units [...] AND SEROL OGArtemio ORDERABLES Performing Organization Address [facility] de Phone Number [facility] [address] [place] [address] * CLIENT ANALYST ANTIBODIES BY ALMA ROSA (12/17/2018 9:02 EDT) [facility] Signature CLIENT ANALYST Antibody 1.7 <20 Units 12/19/2018 13:[address] [facility] Comment: Negative: <20 Units Weak Positive: 20 - 39 Units Moderate Positive: 40 - 80 Units Strong Positive: >80 Units Results were obtained with the INOVA QUANTA Lite CLIENT ANALYST ALMA ROSA. CLIENT ANALYST Values obtained with different manufacturers' assay methods may not be used interchangeably. The magnitude of the reported IgG levels cannot be correlated to an endpoint titer. A positive result in the QUANTA Lite CLIENT ANALYST ALMA ROSA indicates the presence of antibodies reactive with the CLIENT ANALYST/Sm complex but cannot distinguish between anti-Sm and anti-CLIENT ANALYST activity. Blood specimen (specimen) BLOOD SPECIMEN / Unknown 12/17/2018 9:02 EDT 12/17/2018 10:10 EDT Carl Flood MD IMMUNOLOGY AND SEROL OGArtemio ORDERABLES Performing Organization Address [facility] de Phone Number [facility] [address] [place] [address] * SSB ANTIBODIES BY ALMA ROSA (12/17/2018 9:02 EDT) SSB Antibody 3.0 <20 Units 12/19/2018 13:[address] [facility] Comment: Negative: <20 Units Weak Positive: 20 - 39 Units Moderate Positive: 40 - 80 Units Strong Positive: >80 Units Results were obtained with the MODIZY.COMVA QUANTA SS-B ALMA ROSA. SS-B values obtained with different manufacturers' assay methods may not be used interchangeably. The magnitude of the reported IgG levels cannot be correlated to an endpoint titer. Blood specimen (specimen) BLOOD SPECIMEN / Unknown 12/17/2018 9:02 EDT 12/17/2018 10:10 EDT Narrative Authorizing Provider Result Charly Flood MD IMMUNOLOGY AND SEROL OGY ORDERABLES Performing Organization Address [facility] de Phone Number [facility] [address] [place] [address] * TSH (12/17/2018 9:02 EDT) [facility] TSH 1.46 0.47 - 4.68 uIU/ml 12/17/2018 12:[address] [facility] Comment: The results of this assay can be falsely lowered due to the consumption of Biotin. Blood specimen (specimen) BLOOD SPECIMEN / Unknown 12/17/2018 9:02 EDT 12/17/2018 10:10 EDT Narrative Authorizing Provider Result Charly Flood MD CHEMISTRY & BLOOD GA S ORDERABLES Performing Organization Address [facility] Phone Number [facility] [address] [place] [address] * SED. RATE:WESTERGREN (12/17/2018 9:02 EDT) [facility] Sed. Rate Westergren 5 0 - 30 mm/hr 12/17/2018 10:[address] [facility] Blood specimen (specimen) BLOOD SPECIMEN / Unknown 12/17/2018 9:02 EDT 12/17/2018 10:10 EDT Narrative Authorizing Provider Result Charly Flood MD HEMATOLOGY & PF4 ORD ERABLES Performing Organization Address [facility] de Phone Number [facility] [address] [place] [address] * THYROID ANTIBODIES (12/17/2018 9:02 EDT) Thyroglobulin Ab 19 <61 U/mL 12/18/19 19 12:[address] [facility] Thyroperoxidase Ab 44 <61 U/mL 2018 13:[address] [facility] Blood specimen (specimen) BLOOD SPECIMEN / Unknown 12/17/2018 9:02 EDT 12/17/2018 10:10 EDT Carl Flood MD CHEMISTRY & BLOOD GA S ORDERABLES [facility] [address] [place] [address] * UA, CHEMICAL AND SEDIMENT ANALYSIS (DIPSTICK AND MICROSCOPIC) (12/17/2018 9:02 EDT) Color, UA Yellow 12/17/2018 9:[address] [facility] Clarity, UA Clear 12/17/2018 9:42 [facility] Glucose, UA Neg Neg 12/17/2018 9:42 [facility] Bilirubin, UA Neg Neg 12/17/2018 9:42 [facility] Ketones, UA Neg Neg 12/17/2018 9:42 [facility] Refractometer SG,Urine 1.020 1.001 - 1.035 12/17/2018 9:42 [facility] Blood, UA Neg Neg 12/17/2018 9:42 [facility] pH, UA 5.0 4.6 - 8.0 12/17/2018 9:42 [facility] Protein, UA Neg Neg 12/17/2018 9:42 [facility] Urobilinogen, UA Normal Normal E.U./dl 12/17/2018 9:42 [facility] Nitrite, UA Neg Neg 12/17/2018 9:42 [facility] Leuk Esterase Neg Neg 12/17/2018 9:42 [facility] UA Method Used 12/17/2018 8:[address] [facility] Comment: Testing performed using [employer]. Urine RBC Count Automated 0 to 2 0 to 2 /HPF 12/17/2018 9:[address] [facility] Urine WBC Count Automated 0 to 3 0 to 3 /HPF 12/17/2018 9:[address] [facility] Urine Squamous Epithelial Cell Count, Automated None seen None seen /LPF 12/17/2018 9:[address] [facility] Urine Hyaline Casts, Automated < or = 10 < or = 10 /LPF 12/17/2018 9:[address] [facility] Urine Bacteria Count, Automated None seen None seen 12/17/2018 9:[address] [facility] UA Comment Sediment results 12/17/2018 9:[address] [facility] Comment: are unreliable on urines unrefrig >2hrs or refrig >8hrs. Urine specimen (specimen) URINE / Unknown 12/17/2018 9:02 EDT 12/17/2018 9:30 EDT Carl Flood MD URINALYSIS ORDERABLE S [facility] [address] [place] [address] documented in this encounter Visit Diagnoses Diagnosis Positive ADRIANA (antinuclear antibody) Other and unspecified nonspecific immunological findings Malaise and fatigue Other malaise and fatigue Small fiber neuropathy Unspecified hereditary and idiopathic peripheral neuropathy Thoracolumbar back pain Backache, unspecified Paresthesia of both feet documented in this encounter Care Teams Web Applications Administrator Relationship Specialty Start Date End Date Jennifer Sr MD [facility] [place] [address] PCP - General 12/03/18 08/29/22 documented as of this encounter
--- OUTSIDE RECORDS SUMMARY | 2023-11-30 00:10 | XMS_ITS | Encounter Summary ---
Author Organization [facility] Address [address] [place] [address] Care Team Providers Care Sales Representative Cash Registers Name Role Phone Jennifer Sr MD Primary Care Provider [phone]- [phone] Encounter Details Date Type Department Care Team (Late Contact Info) Description 02/17/2019 Orders Only [facility] Total Joint Program - [facility] [address] [place] [address] Altagracia Lozano NP [address] [place] [address] Right hip pain (Primary Dx); [...] Department Care Team (Late Contact Info) Description 04/21/2024 15:00 EST Office Visit [facility] Neurology - [address] [address] Robby Abraham MD [address] [facility], [address] [place] [address] documented as of this encounter Visit Diagnoses Diagnosis Right hip pain- Primary Pain in joint, pelvic region and thigh Left hip pain Pain in joint, pelvic region and thigh documented in this encounter Care Teams Sales Representative Cash Registers Relationship Specialty Start Date End Date Jennifer Sr MD [address], [address] [id number] PCP - General 12/03/18 08/29/22 documented as of this encounter
--- OUTSIDE RECORDS SUMMARY | 2023-11-30 00:10 | XMS_ITS | Encounter Summary ---
Author Organization [facility] Address [address] [place] [address] Care Team Providers Care Meeting Facilitator Name Role Phone Jennifer Sr MD Primary Care Provider +1- [phone] Encounter Details Date Type Department Care Team (Late Contact Info) Description 04/23/2019 Results Only [facility] [phone] Harris Price MD [address] [place] [phone] Social History Tobacco Use Types Packs/Day [...] Info) Description 04/21/2024 15:00 EST Office Visit [facility] Neurology - S [place] [address] [place] [address] Robby Abraham MD [address] [place] [address] 2 [place] [phone] documented as of this encounter Procedures Procedure Name Priority Date/Time Associated Diagnosis Comments COMPLETE BLOOD COUNT WITH DIFFERENTIAL (AUTO) Routine 04/23/2019 16:50 EST COMPREHENSIVE METABOLIC PANEL (CMP) Routine 04/23/2019 16:50 EST documented in this encounter Results * (ABNORMAL) COMPREHENSIVE METABOLIC PANEL (CMP) (04/23/2019 16:50 EST) Albumin % 4.4 3.4 - 4.9 g/dL 04/23/2019 17:14 [facility] ALKALINE PHOSPHATASE - [facility] 64 38 - 126 U/L 04/23/2019 17:14 [facility] BILIRUBIN TOTAL 0.5 0.2 - 1.3 mg/dL 04/23/2019 17:14 [facility] BUN - [facility] 8(L) 10 - 26 mg/dL 04/23/2019 17:14 [facility] CALCIUM - [facility] 9.7 8.5 - 10.5 mg/dL 04/23/2019 17:14 [facility] Chloride 102 96 - 110 mmol/L 04/23/2019 17:14 [facility] CO2 Total 32 22 - 32 mEq/L 04/23/2019 17:14 [facility] CREATININE 0.96 0.52 - 1.04 mg/dL 04/23/2019 17:14 [facility] eGFR >60 04/23/2019 17:14 [facility] Comment: Chronic renal impairment is defined as GFR <60 Multiply result by 1.210 for patients. eGFR calculated using the IDMS-traceable MDRD Study Equation. ??(effective 02/09/2014) Anion Gap 5 0 - 18 04/23/2019 17:14 [facility] GLUCOSE - [facility] 117(H) 70 - 100 mg/dL 04/23/2019 17:14 [facility] Potassium 4.4 3.5 - 5.0 mEq/L 04/23/2019 17:14 [facility] Sodium 139 136 - 145 mEq/L 04/23/2019 17:14 [facility] TOTAL PROTEIN - [facility] 7.4 6.2 - 8.2 gm/dL 04/23/2019 17:14 [facility] SGOT/AST - [facility] 23 14 - 36 U/L 04/23/2019 17:14 [facility] SGPT/ALT - [facility] 22 9 - 52 U/L 0 17:14 [facility] 04/23/2019 16:5 0 EST 04/23/2019 16:56 EST Harris Price MD CHEMISTRY & BLOOD GAS ORDERABLES [facility] * COMPLETE BLOOD COUNT WITH DIFFERENTIAL (AUTO) (04/23/2019 16:50 EST) Gran # 4.2 2.2 - 8.85 10e3/uL 04/23/2019 17:05 [facility] BASO # - [facility] 0.04 0.01 - 0.11 10e/uL 04/23/2019 17:05 [facility] BASO % - [facility] 1 0 - 2 % 04/23/2019 17:05 [facility] EOS # - [facility] 0.20 0.03 - 0.61 10e3/ul 04/23/2019 17:05 [facility] EOS % - [facility] 3 0 - 5 % 04/23/2019 17:05 [facility] GRAN % - [facility] 55.6 40 - 80 % 04/23/2019 17:05 [facility] HEMATOCRIT - [facility] 40.0 34.9 - 44.4 % 04/23/2019 17:05 [facility] HEMOGLOBIN - [facility] 13.6 11.6 - 15.2 g/dl 04/23/2019 17:05 [facility] IG# - [facility] 0.01 0 - 0.7 10e3/uL 04/23/2019 17:05 [facility] IG% - [facility] 0.1 0 - 0.9 % 04/23/2019 17:05 [facility] LYMPH # - [facility] 2.7 1.09 - 3.3 10e3/ul 04/23/2019 17:05 [facility] LYMPH% - [facility] 35.3 20 - 40 % 04/23/2019 17:05 [facility] MEAN CORPUSCULAR HGB - [facility] 32.2 26.7 - 33.3 pg 04/23/2019 17:05 [facility] MEAN CORPUSCULAR HGB CONC - [facility] 34.0 32.1 - 35.9 g/dL 04/23/2019 17:05 [facility] MEAN CELL VOLUME - [facility] 94.8 81 - 98 fl 04/23/2019 17:05 [facility] MONO # - [facility] 0.5 0.1 - 0.8 10e3/uL 04/23/2019 17:05 [facility] MONO% - [facility] 5.9 0 - 12 % 04/23/2019 17:05 [facility] PLATELET COUNT 321 141 - 377 10e3/ul 04/23/2019 17:05 [facility] RED BLOOD COUNT - [facility] 4.22 3.86 - 5.04 10e3/ul 04/23/2019 17:05 [facility] RED CELL DISTRI WIDTH - [facility] 12.3 <14.7 % 04/23/2019 17:05 [facility] WHITE BLOOD COUNT - [facility] 7.6 4.0 - 12.4 10e3/ul 04/23/2019 17:05 [facility] 04/23/2019 16:5 0 EST 04/23/2019 16:56 EST Harris Price MD HEMATOLOGY & PF4 ORDERABLES [facility] documented in this encounter Visit Diagnoses Not on filedocumented in this encounter Care Teams Meeting Facilitator Relationship Specialty Start Date End Date Jennifer Sr MD [address] [place] [address] PCP - General 12/03/18 08/29/22 documented as of this encounter
--- OUTSIDE RECORDS SUMMARY | 2023-11-30 00:10 | XMS_ITS | Encounter Summary ---
Author Organization [facility] Address [address] [place] [address] Care Team Providers Care Superintendent Drilling And Production Name Role Phone Jennifer Sr MD Primary Care Provider [phone]- [phone] Jacey Amador Primary Care Provider [phone] Encounter Details Date Type Department Care Team ([facility] Contact Info) Description 12/22/2021 Lab Requisition [facility] Pathology & Laboratory Medicine - [address] [address] Outr Resulting Lab, Provider Social History Tobacco [...] Department Care Team ([facility] Contact Info) Description 04/21/2024 15:00 EST Office Visit [facility] Neurology - [address] [place] [address] [place] [address] Robby Abraham MD [address] [place] [address], Level 2 [place] [address] documented as of this encounter Procedures Procedure Name Priority Date/Time Associated Diagnosis Comments PTH INTACT Routine 12/22/2021 12:25 EDT INSULIN Routine 12/22/2021 12:25 EDT documented in this encounter Results * PTH INTACT (12/22/2021 12:25 EDT) Intact PTH 56 19 - 88 pg/mL 12/23/2021 9:41 EDT [facility] Blood VENOUS BLOOD / Unknown 12/22/2021 12:25 EDT 12/22/2021 21:08 EDT Provider Outr Resulting Lab CHEMISTRY & BLOOD GAS ORDERABLES [facility] [address] [place] [address] * INSULIN (12/22/2021 12:25 EDT) Insulin 15.1 <29.0 uIU/mL 12/26/2021 9:41 EDT [facility] Comment: Displayed Reference Range applies to fasting specimens only. Blood VENOUS BLOOD / Unknown 12/22/2021 12:25 EDT 12/22/2021 21:08 EDT Provider Outr Resulting Lab CHEMISTRY & BLOOD GAS ORDERABLES [facility] [address] [place] [address] documented in this encounter Visit Diagnoses Not on filedocumented in this encounter Care Teams Superintendent Drilling And Production Relationship Specialty Start Date End Date Jennifer Sr MD [address] [place] [address] PCP - General 12/03/18 08/29/22 Jacey Amador FNP [address] [facility] 1 [place] [phone] PCP - General Family Medicine - Primary Care 08/30/22 documented as of this encounter
--- OUTSIDE RECORDS SUMMARY | 2023-11-30 00:10 | XMS_ITS | Encounter Summary ---
Author Organization [facility] Address [address] [place] [address] Care Team Providers Care Ad Operations Specialist Name Role Phone Jnenifer Sr MD Primary Care Provider [phone]- [phone] Jacey Amador Primary Care Provider [phone] Encounter Details Date Type Department Care Team (Late Contact Info) Description 04/23/2019 Results Only Imaging [facility] Radiology Results [address] [place] [address] Harris Price MD [address] [place] [address] Social History Tobacco Use Types [...] Upcoming Encounters Date Type Department Care Team ([facility] Contact Info) Description 04/21/2024 15:00 EST Office Visit [facility] Neurology - [address] [place] [address] [place] [address] Robby Abraham MD 1 [facility], Level 2 [place] [address] documented as of this encounter [...] MD ? Transcribed Date/Time: 04/23/2019 (1908) ? Conditioning Coach: VRAD ? Printed Date/Time: 04/23/2019 (1908) ? PAGE 2 ? Signed Report ? Procedure Note Chaya Plummer MD - 04/23/2019 EXAM: CAT SCAN/ABDOMEN PELVIS WITH CONTRA EX. D/ (1855) CLINICAL INFORMATION: bilat flank pain x 6 [...] Moreno Arrieta MD Transcribed Date/Time: 04/23/2019 (1908) Conditioning Coach: Printed Date/Time: 04/23/2019 (1908) PAGE 2 Signed Report Harris Price MD IMG CT ORDERABLES documented in this encounter Visit Diagnoses Not on filedocumented in this encounter Care Teams Ad Operations Specialist Relationship Specialty Start Date End Date Jennifer Sr MD [address] [place] [address] [place], [address] [place] [address] PCP - General 12/03/18 08/29/22 Jacey Amador FNP Te[address] [phone] PCP - General Family Medicine - Primary Care 08/30/22 documented as of this encounter
--- OUTSIDE RECORDS SUMMARY | 2023-11-30 00:10 | XMS_ITS | Encounter Summary ---
Author Organization [facility] Address [address] [place] [address] Care Team Providers Care Hemodialysis Lab Technician Name Role Phone Jennifer Sr MD Primary Care Provider [phone]- [phone] Reason for Visit * Reason Comments Back Pain Leg Pain Facial Pain bilateral pain and n umbness. Facial drooping. Pt says affecting her sight Arm Pain left * Consult (Routine) - Specialty Report Received Specialty Diagnoses / Procedures [facility]erred To Contact Pain Medicine Diagnoses Chronic bilateral low back pain without sciatica Dewayne Gomez PA-C [address] [facility] [place] [address] [facility] [address] [place] [address] Referral ID Status Reason Start Date Expiration Date Visits Requested Visits Authorized [id number] Specialty Report Received Specialty Services Required 03/11/2019 1 1 Encounter Details Date Type Department Care Team (Latest Contact Info) Description 06/16/2019 13:00 EDT Initial consult [facility] Interventional Pain [address] [facility] [place] [address] Ruth Gomez PA-C [address] [facility] [address] [place] [address] Bilateral occipital neuralgia (Primary Dx); [...] Service: 06/13/2019 Have you been seen at [facility] pain clinic before?: Yes If yes, last appointment date: 08/29/2017 What were they seen for at that time: CONSULT BILATERAL FOOT PAIN Referring Physician (for new pts or re-referral):DEWAYNE GOMEZ [[id number]] Most recent note from referring provider related [...] - May have to call imaging facility: [facility] For New Consults, is there any pending Imaging? If in question, ask provider? Previous surgeries on the problem area: 1. NO KNOWN SURGERIES * Ruth Gomez PA-C - 06/16/2019 1300 EDT [facility] OP PAIN CONSULT Patient [...] History: Diagnosis Date ??? Angina at rest ([facility]) ??? Asthma ??? Chronic back pain ??? Chronic neck pain ??? DDD (degenerative disc disease), thoracolumbar ??? Degenerative joint disease ??? Depression ??? Diarrhea ??? Environmental allergies ??? GERD (gastroesophageal reflux disease) ??? Headache(784.0) ??? Heart murmur ??? Hyperlipidemia ??? Neuromuscular disease ([facility]) ??? Seizures (HCC-CMS) ??? SOB (shortness of [...] file Gets together: Not on file Attends church service: Not on file Active member of [...] Info) Description 04/21/2024 15:00 EST Office Visit [facility] Neurology - [address] [address] Robby Abraham MD 1 [facility], Level 2 [place] [phone] documented as of this encounter Visit Diagnoses Diagnosis Bilateral occipital neuralgia- Primary Other syndromes affecting cervical region Myofascial pain Mylagia and myositis, unspecified Chronic midline thoracic back pain documented in this encounter Care Teams Hemodialysis Lab Technician Relationship Specialty Start Date End Date Jennifer Sr MD [address], [address] [address] PCP - General 12/03/18 08/29/22 documented as of this encounter
--- OUTSIDE RECORDS SUMMARY | 2023-11-30 00:10 | XMS_ITS | Encounter Summary ---
Author Organization [facility] Address [address] [place] [address] Care Team Providers Care Enterprise Resource Planner Name Role Phone Jennifer Sr MD Primary Care Provider [phone]- [phone] Reason for Visit * Reason Onset Date Comments Appointment Related 06/16/2019 Encounter Details Date Type Department Care Team ([facility] st Contact Info) Description 06/16/2019 Telephone [facility] Interventional Pain [address] [facility] [place] [place] [address] Stefani Mcclellan MD [address] [facility] [address] [place] [address] Appointment Related Social History Tobacco [...] Info) Description 04/21/2024 15:00 EST Office Visit [facility] Neurology - S [address] [address] Robby Abraham MD [address] [place] [address] [address] [place] [phone] documented as of this encounter Visit Diagnoses Not on filedocumented in this encounter Care Teams Enterprise Resource Planner Relationship Specialty Start Date End Date Jennifer Sr MD [address] [place] [address] PCP - General 12/03/18 08/29/22 documented as of this encounter
--- OUTSIDE RECORDS SUMMARY | 2023-11-30 00:10 | XMS_ITS | Encounter Summary ---
Author Organization [facility] Address [address] [place] [address] Care Team Providers Care Psychologist Educational Name Role Phone Jennifer Sr MD Primary Care Provider +1- [phone] Encounter Details Date Type Department Care Team (Late st Contact Info) Description 03/27/2019 Documentation Visit [facility] Neurology - S [address] [phone] Robby Abraham MD [address] [place] [address] [address] [place] [address] Social History Tobacco Use Types [...] Info) Description 04/21/2024 15:00 EST Office Visit [facility] Neurology - S [address] [address] Robby Abraham MD [address] [place] [address], Level [address] [place] [phone] documented as of this encounter Visit Diagnoses Not on filedocumented in this encounter Care Teams Psychologist Educational Relationship Specialty Start Date End Date Jennifer Sr MD [address], [address] [address] PCP - General 12/03/18 08/29/22 documented as of this encounter
--- OUTSIDE RECORDS SUMMARY | 2023-11-30 00:10 | XMS_ITS | Encounter Summary ---
Author Organization [facility] Address [address] [place] [address] Care Team Providers Care Aerospace Physiological Technician Name Role Phone Jennifer Sr MD Primary Care Provider [phone]- [phone] Reason for Visit * Reason Comments Hip Injury bilateral hip pain n o doi/dos Encounter Details Date Type Department Care Team ([facility] st Contact Info) Description 06/03/2019 15:30 EST Office Visit [facility] Total Joint Program - [address] [address] Altagracia Lozano NP [address] [place] [address] Trochanteric bursitis of both hips [...] (acetaminophen) or Advil (ibuprofen) as directed by striper if not contraindicated ??? No Swimming for [...] care physician Thank you for choosing the [facility] for your care. If you have any questions after receiving an injection, or if your pain does not subside, please call at [phone] and let us know. Our goal is to lessen your pain and improve your function. documented in this encounter Progress Notes * Lauren Robert MA - 06/03/2019 1530 EST Patient had the following injection in to the right hip Bupivacaine HCL inj. 0.5% (10mg/mL) 4CC 6CC [facility] Med lot number: [id number] NDC number:05637-717-80 BUD: NOV 2021 Correction Officer [place] [facility]: [facility] Depo Medrol 40mg/mL 1CC 0CC WASTE Med lot number: [id number] [facility] number: [id number] BUD: 08/26 [facility] [place] [facility]: LISSY ROBERT MA 16:09 * Altagracia Lozano [...] patient tolerated this well. Disposition: follow-up in [facility] in 2-3 weeks for left trochanteric bursal injection, sooner as needed Dr. Dimas was the attending physician available in the clinic today if needed. A consultation was not required. All or part of this document has been prepared with speech recognition software and/or keyboard data power consultant techniques. Minor irregularities may be present. Cc: Jennifer Sr Cc: Orin documented in this encounter Plan of Treatment Upcoming Encounters Date Type Department Care Team (Late st Contact Info) Description 04/21/2024 15:00 EST Office Visit [facility] Neurology - S [address] [id number] Robby Abraham MD [address] [place] [address], Level [address] [place] [phone] documented as of this encounter Visit Diagnoses Diagnosis Trochanteric bursitis of both hips- Primary Enthesopathy of hip region documented in this encounter Historical Medications * This list may reflect changes made after this encounter. Medication Sig Dispensed Refills Start Date End Date acetaminophen (TYLENOL) 500 mg tablet Take 500 mg by mouth as needed for Pain. added in this encounter Care Teams Aerospace Physiological Technician Relationship Specialty Start Date End Date Jennifer Sr MD [address], [address] [address] PCP - General 12/03/18 08/29/22 documented as of this encounter
--- OUTSIDE RECORDS SUMMARY | 2023-11-30 00:10 | XMS_ITS | Encounter Summary ---
Author Organization [facility] Address [address] [place] [address] Care Team Providers Care Electric Cell Tender Name Role Phone Jacey Amador Primary Care Provider [phone] Reason for Visit * Reason Onset Date Comments Appointment Related 11/29/2023 Encounter Details Date Type Department Care Team ([facility] st Contact Info) Description 11/29/2023 Telephone [facility] Neurology - S [address] [id number] Robby Abraham MD [address] [place] [address] Level 2 [place] [phone] Appointment Related Social History Tobacco Use Types [...] encounter Miscellaneous Notes * Telephone Encounter - Carroll Peoples - 11/29/2023 1128 EDT Aydee calls in to schedule NPV with neuromuscular clinic. We had originally scheduled with Dr. Michaels, but she prefers to be seen by Dr. Abraham due to being his previous patient. Scheduled for 04/21/24 at 3pm and NPV letter and questionnaire will need to be mailed home. documented in this encounter Plan of Treatment Upcoming Encounters Date Type Department Care Team (Late st Contact Info) Description 04/21/2024 15:00 EST Office Visit [facility] Neurology - S [address] [address] Robby Abraham MD [address] [place] [address], Level 2 [place] [phone] documented as of this encounter Visit Diagnoses Not on filedocumented in this encounter Care Teams Electric Cell Tender Relationship Specialty Start Date End Date Jacey Amador FNP Teena HANEY [address] [place] [phone] PCP - General Family Medicine - Primary Care 08/30/22 documented as of this encounter
--- OUTSIDE RECORDS SUMMARY | 2023-11-30 00:10 | XMS_ITS | Encounter Summary ---
Author Organization [facility] Address [address] [place] [address] Care Team Providers Care Ingot Header Name Role Phone Jennifer Sr MD Primary Care Provider [phone]- [phone] Encounter Details Date Type Department Care Team [...] Info) Description 04/21/2024 15:00 EST Office Visit [facility] Neurology - [address] [place] [address] [place], [place] [phone] Robby Abraham MD [address] [place] [address], Level 2 [place] [address] documented as of this encounter Visit Diagnoses Not on filedocumented in this encounter Care Teams Ingot Header Relationship Specialty Start Date End Date Jennifer Sr MD [address] [place] [address] PCP - General 12/03/18 08/29/22 documented as of this encounter
--- OUTSIDE RECORDS SUMMARY | 2023-11-30 00:10 | XMS_ITS | Encounter Summary ---
Author Organization [facility] Address [address] [place] [address] Care Team Providers Care Coffee Plantation Worker Name Role Phone Jennifer Sr MD Primary Care Provider [phone]- [phone] Reason for Visit * Reason Onset Date Comments Appointment Related 05/15/2019 Encounter Details Date Type Department Care Team ([facility] st Contact Info) Description 05/15/2019 Telephone [facility] Interventional Pain 62 [facility] [place] [address] Ruth Gomez PA-C [address] [facility] [address] [place] [address] Appointment Related Social History Tobacco [...] Info) Description 04/21/2024 15:00 EST Office Visit [facility] Neurology - S [address] [address] Robby Abraham MD [address] [place] [address] Level [address] [place] [phone] documented as of this encounter Visit Diagnoses Not on filedocumented in this encounter Care Teams Coffee Plantation Worker Relationship Specialty Start Date End Date Jennifer Sr MD [address], [address] [address] PCP - General 12/03/18 08/29/22 documented as of this encounter
--- OUTSIDE RECORDS SUMMARY | 2023-11-30 00:10 | XMS_ITS | Encounter Summary ---
Author Organization [facility] Address [address] [place] [address] Care Team Providers Care Seed Packer Name Role Phone Jennifer Sr MD Primary Care Provider [phone]- [phone] Encounter Details Date Type Department Care Team (Late Contact Info) Description 02/12/2019 Orders Only [facility] Total Joint Program - [facility] [address] [place] [address] Altagracia Lozano NP [address] [place] [address] Bilateral hip pain (Primary Dx) [...] Info) Description 04/21/2024 15:00 EST Office Visit [facility] Neurology - S [place] [address] [place] [address] Robby Abraham MD 1 [facility], Level 2 [place] [phone] documented as of this encounter Visit Diagnoses Diagnosis Bilateral hip pain- Primary Pain in joint, pelvic region and thigh documented in this encounter Care Teams Seed Packer Relationship Specialty Start Date End Date Jennifer Sr MD [address], [address] [address] PCP - General 12/03/18 08/29/22 documented as of this encounter
--- OUTSIDE RECORDS SUMMARY | 2023-11-30 00:10 | XMS_ITS | Encounter Summary ---
Author Organization [facility] Address [address] [place] [address] Care Team Providers Care Shovel Log Loader Operator Name Role Phone Jennifer Sr MD Primary Care Provider +1- [phone] Reason for Referral * PT/OT/ST (Routine) - Specialty Report Received Specialty Diagnoses / Procedures Referred By Mayda jalloh Referred To Contact Diagnoses Trochanteric bursitis of both hips Chronic right-sided low back pain, unspecified whether sciatica present Altagracia Lozano NP [address] [place] [address] Referral ID Status Reason Start Date Expiration Date Visits Requested Visits Authorized [id number] Specialty Report Received Specialty Services Required 9 [...] disc degeneration, lumbar region Jennifer Sr MD [address] [facility], [address] [address] [facility] Total Joint [address] [place] [address] Referral ID Status Reason Start Date Expiration Date Visits Re quested Visits Authorized [id number] Closed 1 1 Encounter Details Date Type Department Care Team (Late st Contact Info) Description 02/19/2019 8:[address] [facility] Total Joint Program - [place] [address] [place] [address] Altagracia Lozano, PROGRAM AIDE GROUP WORK [address] [place] [address] Trochanteric bursitis of both hips [...] this encounter Progress Notes * Altagracia Lozano, CERTIFIED MEDICAL CODER - 02/19/2019 0830 EST New Hip pain [...] file Gets together: Not on file Attends worship service: Not on file Active member of [...] follow-up with Spine clinic Disposition: follow-up in [facility] in 2-3 months, sooner as needed Dr. Mae was the attending physician available in the clinic today if needed. A consultation wasnot required. documented in this encounter Plan of Treatment Upcoming Encounters Date Type Department Care Team (Late st Contact Info) Description 04/21/2024 15:[address] [facility] Neurology - S [address] [address]681 Robby Abraham MD [address] [place] [address], Level [address] [place] [phone] Scheduled Referrals Name Type Priority Associated Diagnoses [...] present documented in this encounter Care Teams Shovel Log Loader Operator Relationship Specialty Start Date End Date Jennifer Sr MD [address], [address] [id number] PCP - General 12/03/18 08/29/22 documented as of this encounter
--- OUTSIDE RECORDS SUMMARY | 2023-11-30 00:10 | XMS_ITS | Encounter Summary ---
Author Organization [facility] Address [address] [place] [address] Care Team Providers Care Precast Concrete Ironworker Name Role Phone Jennifer Sr MD Primary Care Provider +1- [phone] Reason for Visit * Reason Comments Obesity online intro Encounter Details Date Type Department Care Team ([facility] Contact Info) Description 03/04/2019 9:00 EST Education [facility] Bariatric Surgery [place] [place] [address] Obesity, unspecified classification, unspecified obesity type, unspecified [...] well as the insurancebenefit verification form. Aydee Johns was given an appointment with Melba Casper the program psychologist which is the next step in the Metabolic and Bariatric Surgery Program. documented in this encounter Plan of Treatment Upcoming Encounters Date Type Department Care Team (Late st Contact Info) Description 04/21/2024 15:00 EST Office Visit [facility] Neurology - S [address] [address] Robby Abraham MD [address] [place] [address], Level [address] [place] [phone] documented as of this encounter Visit Diagnoses Diagnosis Obesity, unspecified classification, unspecified obesity type, unspecified whether serious comorbidity present- Primary documented in this encounter Care Teams Precast Concrete Ironworker Relationship Specialty Start Date End Date Jennifer Sr MD [address] [facility], [address] [address] PCP - General 12/03/18 08/29/22 documented as of this encounter
--- OUTSIDE RECORDS SUMMARY | 2023-11-30 00:10 | XMS_ITS | Encounter Summary ---
Author Organization [facility] Address [address] [place] [address] Care Team Providers Care Wound Care Technician Name Role Phone Jennifer Sr MD Primary Care Provider +1- [phone] Encounter Details Date Type Department Care Team (Late st Contact Info) Description 12/24/[address] [facility] Neurology - S [address] [phone] Robby Abraham MD [address] [place] [address] [address] 2 [place] [address] Social History Tobacco Use Types [...] at 89. There is a note from [facility] pain clinic in August 2005 where she [...] Description 04/21/2024 15:[address] [facility] Neurology - S [address] 150171 Robby Abraham MD [address] [place] [address], Level 2 [place] [phone] documented as of this encounter Visit Diagnoses Not on filedocumented in this encounter Care Teams Wound Care Technician Relationship Specialty Start Date End Date Jennifer Sr MD [address], [address] [address] PCP - General 12/03/18 08/29/22 documented as of this encounter
--- OUTSIDE RECORDS SUMMARY | 2023-11-30 00:10 | XMS_ITS | Encounter Summary ---
Author Organization [facility] Address [address] [place] [address] Care Team Providers Care Bridge Inspector Name Role Phone Jennifer Sr MD Primary Care Provider +1- [phone] Jacey Amador Primary Care Provider [phone] Encounter Details Date Type Department Care Team ([facility] Contact Info) Description 02/28/2019 Lab Requisition [facility] Pathology & Laboratory Medicine - [address] [address] Unknown, Provider, Social History Tobacco Use Types [...] Upcoming Encounters Date Type Department Care Team ([facility] Contact Info) Description 04/21/2024 15:00 EST Office Visit [facility] Neurology - S [place] [address] [place] [phone] Robby Abraham MD [address] [facility], [address] [place] [phone] documented as of this encounter Procedures Procedure Name Priority Date/Time Associated Diagnosis Comments HEPATITIS B CORE ANTIBODY (TOTAL) Routine 02/28/2019 7:24 EST documented in this encounter Results * HEPATITIS B CORE ANTIBODY (TOTAL) (02/28/2019 7:24 EST) Hepatitis B Core Ab, Total Negative Negative 02/28/2019 15:25 EST [facility] Blood VENOUS BLOOD / Unknown 02/28/2019 7:24 EST 02/28/2019 11:56 EST Provider Unknown CHEMISTRY & BLOOD GA S ORDERABLES Performing Organization Address City/State/[facility] Co de Phone Number [facility] [address] [place] [address] documented in this encounter Visit Diagnoses Not on filedocumented in this encounter Care Teams Bridge Inspector Relationship Specialty Start Date End Date Jennifer Sr MD [facility], [facility] [address], [address] [address] PCP - General 12/03/18 08/29/22 Jacey Amador FNP [address] [address] PCP - General Family Medicine - Primary Care 08/30/22 documented as of this encounter
--- OUTSIDE RECORDS SUMMARY | 2023-11-30 00:10 | XMS_ITS | Encounter Summary ---
Author Organization [facility] Address [address] [place] [address] Care Team Providers Care Hris Specialist Name Role Phone Jennifer Sr MD Primary Care Provider +1- [phone] Reason for Referral * Radiology Services (Routine) - Closed Specialty Diagnoses / Procedures Referred By Mayda ajlloh Referred To Contact Diagnoses Encounter for screening for lung cancer Procedures CT CHEST LOW DOSE LUNG SCREENING Jennifer Sr MD [address] [address] Referral ID Status Reason Start Date Expiration Date Visits Re quested Visits Authorized [id number] Closed 05/19/2019 1 1 Reason for Visit * Radiology Services (Routine) - Closed Specialty Diagnoses / Procedures Referred By Mayda jalloh Referred To Contact Diagnoses Encounter for screening for lung cancer Procedures CT CHEST LOW DOSE LUNG SCREENING Jennifer Sr MD [address] [address] Referral ID Status Reason Start Date Expiration Date Visits Re quested Visits Authorized [id number] Closed 05/19/2019 1 1 Encounter Details Date Type Department Care Team (Latest Contact Info) Description 05/19/2019 14:43 EST - 05/19/2019 23:59 EST Hospital Encounter [facility] Radiology - Main [place] [address] [place] [address] Encounter for screening for lung cancer Discharge [...] Info) Description 04/21/2024 15:00 EST Office Visit [facility] Neurology - S [address] [address] Robby Abraham MD [address] [place] [address], Level 2 [place] [address] documented as of this encounter Procedures Procedure [...] cancer documented in this encounter Care Teams Hris Specialist Relationship Specialty Start Date End Date Jennifer Sr MD [address] [place] [address] PCP - General 12/03/18 08/29/22 documented as of this encounter
--- OUTSIDE RECORDS SUMMARY | 2023-11-30 00:10 | XMS_ITS | Encounter Summary ---
Author Organization [facility] Address [address] [place] [address] Care Team Providers Care Rails Developer Name Role Phone Jennifer Sr MD Primary Care Provider +1- [phone] Jacey Amador Primary Care Provider [phone] Encounter Details Date Type Department Care Team (Late Contact Info) Description 07/25/2019 Lab Requisition [facility] Pathology & Laboratory Medicine - [address] [address] [place] [address] Encounter for other general examination Social History [...] Upcoming Encounters Date Type Department Care Team ([facility] Contact Info) Description 04/21/2024 15:00 EST Office Visit [facility] Neurology - S [place] [address] [place], [place] [address] Robby Abraham MD 1 [facility], Level [address] [place] [phone] documented as of this encounter Visit Diagnoses Diagnosis Encounter for other general examination documented in this encounter Care Teams Rails Developer Relationship Specialty Start Date End Date Jennifer Sr MD [facility], [address] [address] PCP - General 12/03/18 08/29/22 Jacey Amador FNP [address] [address] PCP - General Family Medicine - Primary Care 08/30/22 documented as of this encounter
--- OUTSIDE RECORDS SUMMARY | 2023-11-30 00:10 | XMS_ITS | Encounter Summary ---
Author Organization [facility] Address [address] [place] [address] Care Team Providers Care Systems Checkout Mechanic Name Role Phone Jennifer Sr MD Primary Care Provider [phone]- [phone] Reason for Referral * Consult (Routine) - Specialty Report Received Specialty Diagnoses / Procedures [facility] Referred To Contact Pain Medicine Diagnoses Chronic bilateral low back pain without sciatica Nick Gomez PA-C [address] [place] [address] [place] [address] [facility] [address] [facility] [place] [address] Referral ID Status Reason Start Date Expiration Date Visits Requested Visits Authorized [id number] Specialty Report Received Specialty Services Required 03/11/2019 [...] Encounter Details Date Type Department Care Team ([facility] st Contact Info) Description 03/11/2019 15:30 EST Office Visit [facility] Spine Program - [address] [place] [address] Nick Gomez PA-C [address] [facility] [place] [address] Chronic bilateral low back pain [...] with 25 minutes of my time spent [id number] discussing symptoms objective complaints and treatment options documented in this encounter Plan of Treatment Upcoming Encounters Date Type Department Care Team (Late st Contact Info) Description 04/21/2024 15:00 EST Office Visit [facility] Neurology - S [address] [address] Robby Abraham MD [address] [place] [address] [address] 2 [place] [phone] Scheduled Referrals Name Type Priority Associated Diagnoses Order Schedule AMB CONS/FOLLOW UP PAIN INTERVENTIONAL Outpatient Referral Routine Chronic bilateral low back pain without sciatica Ordered: 03/11/2019 documented as of this encounter Visit Diagnoses Diagnosis Chronic bilateral low back pain without sciatica- Primary documented in this encounter Care Teams Systems Checkout Mechanic Relationship Specialty Start Date End Date Jennifer Sr MD [facility] [facility] [address], [address] [address] PCP - General 12/03/18 08/29/22 documented as of this encounter
--- OUTSIDE RECORDS SUMMARY | 2023-11-30 00:10 | XMS_ITS | Encounter Summary ---
Author Organization [facility] Address [address] [place] [address] Care Team Providers Care Technology Coach Name Role Phone Jennifer Sr MD Primary Care Provider [phone]- [phone] Reason for Visit * Reason Onset Date Comments Other 07/01/2019 Encounter Details Date Type Department Care Team ([facility] [place] [facility] Contact Info) Description 07/01/2019 Telephone [facility] - Interventional Pain [address] [place] [address] Stefani Mcclellan MD [address] [facility] [address] [place] [address] Other Social History Tobacco Use [...] Info) Description 04/21/2024 15:00 EST Office Visit [facility] Neurology - S [address] [address] Robby Abraham MD [address] [place] [address], Level 2 [place] [phone] documented as of this encounter Visit Diagnoses Not on filedocumented in this encounter Care Teams Technology Coach Relationship Specialty Start Date End Date Jennifer Sr MD [address], [address] [address] PCP - General 12/03/18 08/29/22 documented as of this encounter
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
--- OUTSIDE RECORDS SUMMARY | 2023-11-30 00:10 | XMS_ITS | Encounter Summary ---
Author Organization [facility] Address [address] [place] [address] Care Team Providers Care Textiles Printer Name Role Phone Jennifer Sr MD Primary Care Provider +1- [phone] Encounter Details Date Type Department Care Team (Late st Contact Info) Description 02/28/2019 Results Only [facility] Neurology - S [address] [id number] Robby Abraham MD [address] [place] [address] Level 2 [place] [address] Social History Tobacco Use Types [...] normal. If the patient does not have Myhealth online, they will be notified by phone. Further plans can be discussed at the next scheduled visit. documented in this encounter Plan of Treatment Upcoming Encounters Date Type Department Care Team (Late st Contact Info) Description 04/21/2024 15:00 EST Office Visit [facility] Neurology - S [place] [address] [place] [address] Robby Abraham MD [address] [place] [address], Level 2 [place] [address] documented as of this encounter Procedures Procedure Name Priority Date/Time Associated Diagnosis Comments HEPATITIS C AB W/REFLEX - [facility] Routine 02/28/2019 7:24 EST CRYOGLOBULIN, SERUM Routine 02/28/2019 7 :24 EST HEPATITIS B CORE ANTIBODY (TOTAL) Routine 02/28/2019 7:24 EST ZZVITAMIN B1, THIAMINE Routine 9 7:24 EST MISCELLANEOUS TEST, [place] Routine 02/28/2019 7:17 EST documented in this encounter Results * VITAMIN B1, THIAMINE (02/28/2019 7:24 EST) VITAMIN B1 (THIAMINE) - [facility] 145 70 - 180 nmol/L 03/04/2019 8:08 EST [facility] Comment: ADDITIONAL INFORMATION This test was developed and its performance characteristics determined by [facility] in a manner consistent with CLIA requirements. This test has not been cleared or approved by the U.S. Food and Drug Administration. Test Performed by: [facility] [address] [place] [address] Parts Salesperson: Aime Craig M.D. Ph.D.; CLIA# [id number] 02/28/2019 7:24 EST 02/28/2019 7:24 EST [facility] - 03/04/2019 8:08 EST Does PT Have a Latex Allergy? NO ORDERED TESTS: [place] ID:PLP/GREEN TOP Robby Abraham MD CHEMISTRY & BLOOD GA S ORDERABLES [facility] * HEPATITIS B CORE ANTIBODY (TOTAL) (02/28/2019 7:24 EST) Hepatitis B Core Ab, Total Negative Negative 03/04/2019 8:08 EST [facility] Comment: Test performed [place] [address] 02/28/2019 7:24 EST 02/28/2019 7:24 EST [facility] - 03/04/2019 8:08 EST Does PT Have a Latex Allergy? NO ORDERED TESTS: [place] ID:PLP/GREEN KATHRIN Robby Abraham MD CHEMISTRY & BLOOD GA S ORDERABLES Performing Organization Address City/[facility]/ZIP Co de Phone Number [facility] * CRYOGLOBULIN, SERUM (02/28/2019 7:24 EST) CRYOGLOBULINS SCREEN - [facility] Negative Negative %ppt 03/04/2019 8:08 EST [facility] Comment: This test is negative at 24 hours. All samples are held and reviewed again at 7 days. If delayed precipitation occurs after 7 days, Immunofixation will be performed and an additional report will follow. Test Performed by: [facility] [address] [place], [place] [id number] Parts Salesperson: Aime Craig M.D. Ph.D.; CLIA# [id number] 02/28/2019 7:24 EST 02/28/2019 7:24 EST [facility] - 03/04/2019 8:08 EST Does PT Have a Latex Allergy? NO ORDERED TESTS: [place] ID:PLP/GREEN TOP Robby Abraham MD CHEMISTRY & BLOOD GA S ORDERABLES Performing Organization Address City/[facility]/ZIP Co de Phone Number [facility] * HEPATITIS C AB W/REFLEX - [facility] (02/28/2019 7:24 EST) HEPATITIS C AB W/REFLEX - [facility] Negative 02/28/2019 9:16 EST [facility] Comment:Expected Values: Neg ative. 02/28/2019 7:24 EST 02/28/2019 7:24 EST Narrative [facility] - 02/28/2019 9:16 EST Does PT Have a Latex Allergy? NO Robby Abraham MD CHEMISTRY & BLOOD GA S ORDERABLES Performing Organization Address [facility] Co de Phone Number [facility] * MISCELLANEOUS TEST, [place] (02/28/2019 7:17 EST) MISCELLANEOUS TEST - [facility] SEE BELOW () 03/05/2019 20:21 EST [facility] Comment: Test ? Result ??Flag ??Unit ?? RefValue Pyridoxal 5-Phosphate (PLP) ?11 ?mcg/L ??5-50 ??, P ADDITIONAL INFORMATION This test was developed and its performance characteristics determined by [facility] in a manner consistent with CLIA requirements. This test has not been cleared or approved by the U.S. Food and Drug Administration. Test Performed by: [facility] [address] [place] [address] Parts Salesperson: Aime Craig M.D. Ph.D.; CLIA# [id number] 02/28/2019 7:17 EST 02/28/2019 7:48 EST Robby Abraham MD CHEMISTRY & BLOOD GA S ORDERABLES Performing Organization Address City/State/[facility] Co de Phone Number [facility] documented in this encounter Visit Diagnoses Not on filedocumented in this encounter Care Teams Textiles Printer Relationship Specialty Start Date End Date Jennifer rS MD [facility], [address] [address] PCP - General 12/03/18 08/29/22 documented as of this encounter
--- OUTSIDE RECORDS SUMMARY | 2023-11-30 00:10 | XMS_ITS | Encounter Summary ---
Author Organization [facility] Address [address] [place] [address] Care Team Providers Care Gas Turbine Assembler Name Role Phone Jennifer Sr MD Primary Care Provider [phone]- [phone] Reason for Visit * Reason Onset Date Comments Appointment Related 08/22/2019 Encounter Details Date Type Department Care Team ([facility] st Contact Info) Description 08/22/2019 Telephone [facility] Interventional Pain [address] [place], [place] [id number] Ann-Marie Macias MD [address] [place], [place] [phone] Appointment Related Social History Tobacco Use Types [...] Telephone Encounter - Shanell Gilbert - 08/22/2019 1236 EDT Called patient to confirm their appointment with her and she has declined the appointment. She is seeing a chiropractor and will call us if she decided she needs this appointment for Occipital Nerve Blocks documented in this encounter Plan of Treatment Upcoming Encounters Date Type Department Care Team (Late st Contact Info) Description 04/21/2024 15:00 EST Office Visit [facility] Neurology - S [address] [address] Robby Abraham MD [address] [place] [address], Level [address] [place] [phone] documented as of this encounter Visit Diagnoses Not on filedocumented in this encounter Care Teams Gas Turbine Assembler Relationship Specialty Start Date End Date Jennifer Sr MD [address], [address] [place] [address] PCP - General 12/03/18 08/29/22 documented as of this encounter
--- OUTSIDE RECORDS SUMMARY | 2023-11-30 00:10 | XMS_ITS | Encounter Summary ---
Author Organization [facility] Address [address] [place] [address] Care Team Providers Care Software Developer Consultant Name Role Phone Jennifer Sr MD Primary Care Provider [phone]- [phone] Reason for Visit * Reason Comments Pain Pain Encounter Details Date Type Department Care Team ([facility] Contact Info) Description 06/20/2019 9:30 EDT Office Visit [facility] Total Joint Program - [facility] [address] [place] [address] Altagracia Lozano, SUNSHINE [address] [place] [address] Greater trochanteric bursitis of left [...] (acetaminophen) or Advil (ibuprofen) as directed by clay dry press helper if not contraindicated ??? No Swimming for [...] pain does not subside, please call at [phone] and let us know. Our goal is to lessen your pain and improve your function. documented in this encounter Progress Notes * Adenike Agee MA - 06/20/2019929 EDT Hip Injection Bupivacaine 0.5% 10 mL Med lot number: [id number] [facility] number: [id number] Exp date: 09/28 Cosmetologist Apprentice:GILMA med Drug waste: 10 mL vial, used 4 mL, wasted 6 mL Methyiprednisolone 40 mg/mL Med lot number: [id number] [facility] number: [id number] Exp date: 05/30 Cosmetologist Apprentice: [employer] Drug :1 mL vial, used 1 mL, wasted 0 mL ADENIKE AGEE MA 9:36 * Altagracia Lozano APRN - 06/20/2019929 EDT Corticosteroid Injection Procedure (): Left Hip, [...] Info) Description 04/21/2024 15:00 EST Office Visit [facility] Neurology - S [place] [address] [place] [address] Robby Abraham MD [address] [place] [address], Level 2 [place] [phone] documented as of this encounter Visit Diagnoses Diagnosis Greater trochanteric bursitis of left hip- Primary Enthesopathy of hip region documented in this encounter Care Teams Software Developer Consultant Relationship Specialty Start Date End Date Jennifer Sr MD [address], [address] [address] PCP - General 12/03/18 08/29/22 documented as of this encounter
--- OUTSIDE RECORDS SUMMARY | 2023-11-30 00:10 | XMS_ITS | Encounter Summary ---
Author Organization [facility] Address [address] [place] [address] Care Team Providers Care Sugar Coating Hand Name Role Phone Jennifer Sr MD Primary Care Provider +1- [phone] Jacey Amador Primary Care Provider [phone] Encounter Details Date Type Department Care Team (Latest Contact Info) Description 09/29/2021 Lab Requisition [facility] Pathology & Laboratory Medicine - [address] [address] Glenys Hernandez FNP [address] [place], [place] [address] Encounter for general adult medical examination without [...] Info) Description 04/21/2024 15:00 EST Office Visit [facility] Neurology - S [address] [place], [place] [address] Robby Abraham MD [address] [place] [address], Level 2 [place] [address] documented as of this encounter [...] types, PCR Negative Negative 10/05/2021 19:21 EDT [facility] Comment:No E6 or E7 mRNA is detected from HPV types 16,18,31,33,35,39,45,51,52,56,58,59,66, and 68 by senior developer mediated amplification. Papanicolaou smear specimen (specimen) CERVIX UTERI STRUCTURE / Unknown 09/27/2021 9:50 EDT 10/03/2021 14:58 EDT Glenys QUICK MICROBIOLOGY - GENER AL ORDERABLES [facility] [address] [place] [address] * PAP TEST (09/27/2021 9:50 EDT) Specimens A. Cervix and/or Endocervix , ThinPrep Imaging System with Manual Evaluation 10/05/2021 19:22 [facility] Specimen Adequacy Satisfactory for Evaluation - transformation zone component present 10/05/2021 19:22 [facility] General Categorization Negative for intraepithelial lesion or malignancy 10/05/2021 19:22 [facility] Attestation . 10/05/2021 19:22 [facility] at 1922 Clinical History SEE BELOW 10/06/19 19:22 [facility] HPV The result for the Human Papillomavirus (HPV) Detection-High Risk Types is Negative. No E6 or E7 mRNA is detected from HPV types 16,18,31,33,35,39 ,45,51,52,56,58,5 9,66, and 68 by senior developer mediated amplification.Tete ting was performed on specimen [id number] and was resulted on 10/05/2021 1915 EDT by HOLLY, LAB INSTRUMENT RESULTS IN 10/05/2021 19:22 T [facility] Performing Lab [facility] 10/05/2021 19:22 T [facility] Scanned Images 10/05/2021 19:22 T [facility] Papanicolaou smear specimen (specimen) CERVIX UTERI STRUCTURE / Unknown 09/27/2021 9:50 EDT 09/29/2021 12:56 EDT Glenys Hernandez REAL ESTATE INSPECTOR PATHOLOGY ORDERABLES [facility] [address] [place] [address] documented in this encounter Visit Diagnoses Diagnosis Encounter for general adult medical examination without abnormal findings Unspecified general medical examination Encounter for screening for malignant neoplasm of cervix Screening for malignant neoplasm of the cervix Encounter for screening for human papillomavirus (HPV) Special screening examination for human papillomavirus (HPV) documented in this encounter Care Teams Sugar Coating Hand Relationship Specialty Start Date End Date Jennifer Sr MD [address] [place] [address] PCP - General 12/03/18 08/29/22 Jacey Amador FNP [address] [facility] [address] [place] [address] PCP - General Family Medicine - Primary Care 08/30/22 documented as of this encounter
--- OUTSIDE RECORDS SUMMARY | 2023-11-30 00:10 | XMS_ITS | Encounter Summary ---
Author Organization [facility] Address [address] [place] [address] Care Team Providers Care Retail Department Reset Name Role Phone Jennifer Sr MD Primary Care Provider [phone]- [phone] Reason for Visit * Reason Onset Date Comments Labs Only 03/05/2019 Lab results [facility] Diagnostic Imaging Report 03/05/2019 [facility] Encounter Details Date Type Department Care Team ([facility] st Contact Info) Description 03/05/2019 Telephone [facility] Neurology - S [place] [address] [place] [phone] Robby Abraham MD [address] [place] [address], Level 2 [place] [address] Labs Only (Lab results [facility]); Diagnostic Imaging Report ([facility]) Social History Tobacco Use Types Packs/Day Years [...] - 03/11/2019 1124 EST Lab results form [facility] also received MRI report form [facility] MR C-spine. They are in Dr. Abraham's Mailbox. documented in this encounter Plan of Treatment Upcoming Encounters Date Type Department Care Team (Late st Contact Info) Description 04/21/2024 15:00 EST Office Visit [facility] Neurology - S [address] [address] Robby Abraham MD [address] [place] [address], Level 2 [place] [phone] documented as of this encounter Visit Diagnoses Not on filedocumented in this encounter Care Teams Retail Department Reset Relationship Specialty Start Date End Date Jennifer Sr MD [address], [address] [address] PCP - General 12/03/18 08/29/22 documented as of this encounter
--- OUTSIDE RECORDS SUMMARY | 2023-11-30 00:10 | XMS_ITS | Encounter Summary ---
Author Organization [facility] Address [address] [place] [address] Care Team Providers Care Skip Miner Name Role Phone Jennifer Sr MD Primary Care Provider [phone]- [phone] Reason for Visit * Reason Comments Obesity Psych Eval Encounter Details Date Type Department Care Team ([facility] Contact Info) Description 03/10/2019 14:00 EST Office Visit [facility] Bariatric Surgery [facility] [address] [place], [place] [address] Melba Casper, PhD [address] [place] [phone] Adjustment disorder with depressed mood (Primary Dx) [...] Pt is open to guidance from a security services manager and stated that she has the time [...] Info) Description 04/21/2024 15:00 EST Office Visit [facility] Neurology - S [address] [address] Robby Abraham MD [address] [place] [address], Level 2 [place] [phone] documented as of this encounter Visit Diagnoses Diagnosis Adjustment disorder with depressed mood- Primary documented in this encounter Care Teams Skip Miner Relationship Specialty Start Date End Date Jennifer Sr MD [facility], [address] [place] [address] PCP - General 12/03/18 08/29/22 documented as of this encounter
--- OUTSIDE RECORDS SUMMARY | 2023-11-30 00:10 | XMS_ITS | Encounter Summary ---
Author Organization [facility] Address [address] [place] [address] Care Team Providers Care Fountain Jerk Name Role Phone Jennifer Sr MD Primary Care Provider [phone]- [phone] Reason for Visit * Reason Onset Date Comments Appointment Related 07/22/2019 Encounter Details Date Type Department Care Team ([facility] st Contact Info) Description 07/22/[address] [facility] Interventional Pain [address] [place], [place] [phone] Ann-Marie Macias MD [address] [place], [place] [phone] Appointment Related Social History Tobacco Use Types [...] 08/22/2019 due to the [place] Virus per [facility] Protocols. documented in this encounter Plan of Treatment Upcoming Encounters Date Type Department Care Team (Late st Contact Info) Description 04/21/2024 15:00 EST Office Visit [facility] Neurology - S [address] [phone] Robby Abraham MD [address] [place] [address], Level [address] [place] [address] documented as of this encounter Visit Diagnoses Not on filedocumented in this encounter Care Teams Fountain Jerk Relationship Specialty Start Date End Date Jennifer Sr MD [address], [address] [phone] PCP - General 12/03/18 08/29/22 documented as of this encounter
--- OUTSIDE RECORDS SUMMARY | 2023-11-30 00:10 | XMS_ITS | Encounter Summary ---
Author Organization [facility] Address [address] [place] [address] Care Team Providers Care Waste Duster Name Role Phone Jacey Amador Primary Care Provider [phone] Reason for Referral * PT/OT/ST (Routine/Next Available) - New Request Specialty Diagnoses / Procedures Referred By Mayda jalloh Referred To Contact Diagnoses Muscle tension dysphonia Chronic laryngitis Gastroesophageal reflux disease without esophagitis History of tobacco abuse Aki Rosario MD [address] [place] [address], [address] [place] [address] Referral ID Status Reason Start Date Expiration Date Visits Requested Visits Authorized [id number] New Request Specialty Services Required 09/08/2022 1 1 Question Answer Type of CREPE LAMINATOR OPERATOR Eval: Voice Eval & Treat Reason for [...] and resonance disorder Maria Esther Mckoy APRN [address] [place] [address] [place] [address] [place] [address] [place] [address] Referral ID Status Reason Start Date Expiration Date Visits Requested Visits Authorized [id number] Receiving Office to Obtain Authorization 1 1 Encounter Details Date Type Department Care Team (Late st Contact Info) Description 09/08/2022 15:00 EDT Office Visit [facility] ENT- [address] [address] Aki Rosario MD [address] [place] [address], Level [address] [place] [address] Muscle tension dysphonia (Primary Dx); [...] Heart murmur ??? Hyperlipidemia ??? Neuromuscular disease ([facility]) ??? Sleep apnea ??? SOB (shortness of [...] (shortness of breath) ??? Substance abuse (HCC-CMS) ([facility]) Past Surgical History: Procedure Laterality Date ??? [...] an external referral as she lives in [place] with the closest hospital being [facility]. She wasreassured regarding the absence of [...] Visit [facility] Neurology - S [address] [address] Robby Abraham MD [address] [place] [address], Level [address] [place] [phone] Scheduled Referrals Name Type Priority Associated Diagnoses [...] 09/08/2022 UNABLE TO FIND Med Name: lipotrienols 3 UNABLE TO FIND Med Name: rhizinate 09/08/2022 documented as of this encounter Historical Medications * This list may reflect changes made after this encounter. Medication Sig Dispensed Refills Start Date End Date omeprazole (PRILOSEC) 20 mg capsule Take 40 mg by mouth 2 times daily. added in this encounter Care Teams Waste Duster Relationship Specialty Start Date End Date Jacey Amador FNP [address] [place] [address] PCP - General Family Medicine - Primary Care 08/30/22 documented as of this encounter
--- OUTSIDE RECORDS SUMMARY | 2023-11-30 00:10 | XMS_ITS | Encounter Summary ---
Author Organization [facility] Address [address] [place] [address] Care Team Providers Care Call Centre Supervisor Name Role Phone Jennifer Sr MD Primary Care Provider [phone] Reason for Visit * Reason Onset Date Comments Appointment Related 05/02/2019 Encounter Details Date Type Department Care Team ([facility] st Contact Info) Description 05/02/[address] [facility] Interventional Pain [address] [place] [place] [address] Ruth Gomez PA-C [address] [facility] [address] [place] [address] Appointment Related Social History Tobacco [...] Info) Description 04/21/2024 15:00 EST Office Visit [facility] Neurology - S [address] [address] Robby Abraham MD [address] [place] [address], Level [address] [place] [phone] documented as of this encounter Visit Diagnoses Not on filedocumented in this encounter Care Teams Call Centre Supervisor Relationship Specialty Start Date End Date Jennifer Sr MD [address], [address] [address] PCP - General 12/03/18 08/29/22 documented as of this encounter
--- OUTSIDE RECORDS SUMMARY | 2023-11-30 00:10 | XMS_ITS | Encounter Summary ---
Author Organization [facility] Address [address] [place] [address] Care Team Providers Care Corporate Administrative Assistant Name Role Phone Jennifer Sr MD Primary Care Provider [phone] Jacey Amador Primary Care Provider Encounter Details Date Type Department Care Team (Late Contact Info) Description 08/23/2020 Lab Requisition [facility] Pathology & Laboratory Medicine - [address] [address] Outr Resulting Lab, Provider Social History Tobacco [...] Upcoming Encounters Date Type Department Care Team ([facility] Contact Info) Description 04/21/2024 15:00 EST Office Visit [facility] Neurology - S [place] [address] [place] [address] Robby Abraham MD 1 [employer], Level 2 [place] [address] documented as of this encounter Procedures Procedure Name Priority Date/Time Associated Diagnosis Comments SPEP WITH IMMUNOTYPING PERFORMABLE Today 08/23/2020 12:11 EDT SPEP WITH IMMUNOTYPING Routine 08/23/2020 12:11 EDT PROTEIN, TOTAL Today 08/23/2020 12:11 EDT documented in this encounter Results * SPEP WITH IMMUNOTYPING PERFORMABLE (08/23/2020 12:11 EDT) Albumin % 62.6 55.8 - 66.1 % 08/25/2020 6:27 [facility] Alpha-1 % 3.4 2.9 - 4.9 % 08/25/2020 6:27 [facility] Alpha-2 % 10.1 7.1 - 11.8 % 08/25/2020 6:27 [facility] Beta % 11.2 8.4 - 13.1 % 08/25/2020 6:27 [facility] Gamma % 12.7 11.1 - 18.8 % 08/25/2020 6:27 [facility] SPEP Comment No apparent monoclonal protein seen on serum electrophoresis 08/25/2020 6:27 [facility] Comment:See scanned/suppleme ntary report. Immunotyping , Serum Current Interpretation: Negative for monoclonal immunoglobulins. Reviewed by: Antonio Sorensen MD 08/24/2020 15:12 08/25/2020 6:27 [facility] Total Protein 7.2 6.3 - 8.2 g/dL 08/25/2020 6:27 [facility] Blood VENOUS BLOOD / Unknown 08/23/2020 12:11 EDT 08/23/2020 21:28 EDT Provider Outr Resulting Lab CHEMISTRY & BLOOD GAS ORDERABLES [facility] [address] [place] [address] * PROTEIN, TOTAL (08/23/2020 12:11 EDT) Blood VENOUS BLOOD / Unknown 08/23/2020 12:11 EDT 08/23/2020 21:28 EDT Provider Outr Resulting Lab CHEMISTRY & BLOOD GAS ORDERABLES Performing Organization Address City/[facility] Co de Phone Number [facility] [address] [place] [address] documented in this encounter Visit Diagnoses Not on filedocumented in this encounter Care Teams Corporate Administrative Assistant Relationship Specialty Start Date End Date Jennifer Sr MD [address], [address] [address] PCP - General 12/03/18 08/29/22 Jacey Amador FNP [facility]AFSA TAMEZ [address] [phone] PCP - General Family Medicine - Primary Care 08/30/22 documented as of this encounter
--- OUTSIDE RECORDS SUMMARY | 2023-11-30 00:11 | XMS_ITS | Encounter Summary ---
Author Organization [facility] Address [address] [place] [address] Care Team Providers Care Outboard Motor Mechanic Name Role Phone Obey Osborn APRN Primary Care Provider [phone] Encounter Details Date Type Department Care Team (Late Contact Info) Description 10/03/2017 Abstract [facility] General Surgery - [address] [address] Macho Fernandez MD [address] [place] [address], Level 5 [place] [phone] Social History Tobacco Use Types Packs/Day Years [...] Info) Description 04/21/2024 15:00 EST Office Visit [facility] Neurology - S [address] [phone] Robby Abraham MD 1 [facility], Level 2 [place] [address] documented as of this encounter Visit Diagnoses Not on filedocumented in this encounter Care Teams Outboard Motor Mechanic Relationship Specialty Start Date End Date Obey Osborn APRN [address] [place] [address] DR HANEY [address] [place] [phone] PCP - General 08/29/17 10/10/18 documented as of this encounter
--- OUTSIDE RECORDS SUMMARY | 2023-11-30 00:11 | XMS_ITS | Encounter Summary ---
Author Organization [facility] Address [address] [place] [address] Care Team Providers Care Galley Boy Name Role Phone Obey Osborn APRN Primary Care Provider [phone] Encounter Details Date Type Department Care Team (Late Contact Info) Description 06/10/2018 Orders Only [facility] Adult Neurology - Main [place] [address] [place], [place] [address] Randall Corey MD [address] [place] [address] Other fatigue (Primary Dx) Social History Tobacco [...] Office Visit [facility] Neurology - S [place] [address] [place] [phone] Robby Abraham MD 1 [facility], Level 2 [place] [address] documented as of this encounter Visit Diagnoses Diagnosis Other fatigue- Primary documented in this encounter Care Teams Galley Boy Relationship Specialty Start Date End Date Obey Osborn APRN [address] [place] [address] [address]ANE[address] [place] [address] PCP - General 08/29/17 10/10/18 documented as of this encounter
--- OUTSIDE RECORDS SUMMARY | 2023-11-30 00:11 | XMS_ITS | Encounter Summary ---
Author Organization [facility] Address [address] [place] [address] Care Team Providers Care External Relations Director Name Role Phone Obey Osborn APRN Primary Care Provider [phone] Reason for Visit * Reason Onset Date Comments Other 09/17/2017 Encounter Details Date Type Department Care Team ([facility] Contact Info) Description 09/17/[address] [facility] Interventional Pain [address] [place], [place] [phone] Virgil Núñez [place] [address] [place] [address] Other Social History Tobacco Use [...] with a Vascular surgeon and with a Orthopedic Dentist RN attempted to contact patient. LM to [...] difficult. Please advise. Patients phone number is [phone] documented in this encounter Plan of Treatment Upcoming Encounters Date Type Department Care Team (Late st Contact Info) Description 04/21/2024 15:00 EST Office Visit [facility] Neurology - S [place] [address] [place], [place] [address] Robby Abraham MD 1 [facility], Level 2 [place] [phone] documented as of this encounter Visit Diagnoses Not on filedocumented in this encounter Care Teams External Relations Director Relationship Specialty Start Date End Date Obey Osborn APRN [address] [place] [address] DR H[address] [place] [id number] PCP - General 08/29/17 10/10/18 documented as of this encounter
--- OUTSIDE RECORDS SUMMARY | 2023-11-30 00:11 | XMS_ITS | Encounter Summary ---
Author Organization [facility] Address [address] [place] [address] Care Team Providers Care Saw Runner Name Role Phone Obey Osborn APRN Primary Care Provider [phone] Reason for Visit * Reason Onset Date Comments Paperwork request 02/27/2018 Encounter Details Date Type Department Care Team ([facility] st Contact Info) Description 02/27/2018 Telephone [facility] Neurology - S [address] [address] Robby Abraham MD [address] [place] [address] Level 2 [place] [phone] Paperwork request Social History Tobacco Use Types [...] Info) Description 04/21/2024 15:00 EST Office Visit [facility] Neurology - S [address] [address] Robby Abraham MD [address] [place] [address], Level 2 [place] [phone] documented as of this encounter Visit Diagnoses Not on filedocumented in this encounter Care Teams Saw Runner Relationship Specialty Start Date End Date Obey Osborn APRN [address] [place] [address] DR H[address]Y [address] [place] [id number] PCP - General 08/29/17 10/10/18 documented as of this encounter
--- OUTSIDE RECORDS SUMMARY | 2023-11-30 00:11 | XMS_ITS | Encounter Summary ---
Author Organization [facility] Address [address] [place] [address] Care Team Providers Care Ice Guard Skating Rink Name Role Phone Jennifer Sr MD Primary Care Provider [phone] Reason for Visit * Reason Onset Date Comments Labs Only 12/04/2018 Encounter Details Date Type Department Care Team ([facility] st Contact Info) Description 12/04/2018 Telephone [facility] Neurology - S [address] [address] Robby Valle MD [address] [place] [address] Level 2 [place] [phone] Labs Only Social History Tobacco Use Types [...] Office Visit [facility] Neurology - S [address] 2225[address] Robby Valle MD [address] [place] [address], Level [address] [place] [phone] documented as of this encounter Visit Diagnoses Not on filedocumented in this encounter Care Teams Ice Guard Skating Rink Relationship Specialty Start Date End Date Jennifer Sr MD [address], [address] [phone] PCP - General 12/03/18 08/29/22 documented as of this encounter
--- OUTSIDE RECORDS SUMMARY | 2023-11-30 00:11 | XMS_ITS | Encounter Summary ---
Author Organization [facility] Address [address] [place] [address] Care Team Providers Care Embossing Calender Operator Name Role Phone Obey Osborn APRN Primary Care Provider [phone] Encounter Details Date Type Department Care Team (Late Contact Info) Description 08/31/2017 Orders Only [facility] Vascular Surgery - [address] [address] Macho Fernandez MD [address] [place] [address], Level 5 [place] [phone] Pain in both lower extremities (Primary Dx) [...] Info) Description 04/21/2024 15:00 EST Office Visit [facility] Neurology - S [place] [address] [place], [place] [address] Robby Abraham MD [address] [place] [address], Level 2 [place] [address] documented as of this encounter Procedures Procedure Name Priority Date/Time Associated Diagnosis Comments VL LOWER ARTERIAL DUPLEX BILATERAL Routine 10/09/2017 13:54 EDT documented in this encounter Results * VL LOWER ARTERIAL DUPLEX BILATERAL (10/09/2017 13:54 EDT) Anatomical Region Laterality Modality Other 10/09/2017 13:5 4 EDT Narrative 10/11/2017 11:01 EDT Vascular Diagnostic Laboratory [facility], [facility], Level [address] [place] [address] Technologist: Justin Arora Fellow: IMPRESSIONS 1. No [...] ?? Flow analysis + +-------+ + Right BUFFING TURNER AND COUNTER ? 88cm/s ? + +-------+ + Right PFA ? 62cm/s ? + +-------+ + Right SFA - prox 108cm/s ? + +-------+ + Right SFA - mid 88cm/s ? + +-------+ + Right SFA - dist 75cm/s ? + +-------+ + Right POP-ak ? 65cm/s ? + +-------+ + Right POP ? 80cm/s ? + +-------+ + Right ENGINEERING MATHEMATICIAN ? Triphasic ? + +-------+ + Right DPA ? Triphasic ? + +-------+ + Left BUFFING TURNER AND COUNTER ? 74cm/s ? + +-------+ + Left PFA ? 73cm/s ? + +-------+ + Left SFA - prox 145cm/s ? + +-------+ + Left SFA - mid ?? 114cm/s ? + +-------+ + Left SFA - dist 77cm/s ? + +-------+ + Left POP-ak ? 49cm/s ? + +-------+ + Left POP ? 84cm/s ? + +-------+ + Left ENGINEERING MATHEMATICIAN ? Triphasic ? + +-------+ + Left DPA ? Triphasic ? + +-------+ + * Electronically signed by: Macho Fernandez 10/11/2017 11:01 Procedure Note Macho Fernandez MD - 10/11/2017 Vascular Diagnostic Laboratory [facility], [facility] 5 [address] [place] [address] Technologist: Justin Arora Fellow: IMPRESSIONS 1. No [...] sys Flow analysis + +-------+ + Right BUFFING TURNER AND COUNTER 88cm/s + +-------+ + Right PFA 62cm/s + +-------+ + Right SFA - prox 108cm/s + +-------+ + Right SFA - mid 88cm/s + +-------+ + Right SFA - dist 75cm/s + +-------+ + Right POP-ak 65cm/s + +-------+ + Right POP 80cm/s + +-------+ + Right ENGINEERING MATHEMATICIAN Triphasic + +-------+ + Right DPA Triphasic + +-------+ + Left BUFFING TURNER AND COUNTER 74cm/s + +-------+ + Left PFA 73cm/s + +-------+ + Left SFA - prox 145cm/s + +-------+ + Left SFA - mid 114cm/s + +-------+ + Left SFA - dist 77cm/s + +-------+ + Left POP-ak 49cm/s + +-------+ + Left POP 84cm/s + +-------+ + Left ENGINEERING MATHEMATICIAN Triphasic + +-------+ + Left DPA Triphasic + +-------+ + * Electronically signed by: Macho Fernandez 10/11/2017 11:01 Macho Fernandez MD IMG VASCULAR O RDERABLES documented in this encounter Visit Diagnoses Diagnosis Pain in both lower extremities- Primary documented in this encounter Care Teams Embossing Calender Operator Relationship Specialty Start Date End Date Obey Osborn APRN [address] [place] [address] [address] PCP - General 08/29/17 10/10/18 documented as of this encounter
--- OUTSIDE RECORDS SUMMARY | 2023-11-30 00:11 | XMS_ITS | Encounter Summary ---
Author Organization [facility] Address [address] [place] [address] Care Team Providers Care Sr Technical Sales Consultant Name Role Phone Obey Osborn APRN Primary Care Provider [phone] Reason for Referral * Consult (Routine/Next Available) - Specialty Report Received Specialty Diagnoses / Procedures Referred By Contac t Referred To Contact Orthopedic Surgery Diagnoses Pain in both feet Virgil Núñez [place] [address] [place] [address] [facility] Ortho Foot And Ankle [address] [place] [address] Referral ID Status Reason Start Date Expiration Date Visits Requested Visits Authorized [id number] Specialty Report Received Specialty Services Required 08/29/2017 1 1 Question Answer Reason for Request: Bilateral severe foot pain while walking/standing. * Consult (Routine/Next Available) - Specialty Report Received Specialty Diagnoses / Procedures Referred By Contac t Referred To Contact Vascular Surgery Diagnoses Pain in both feet Bilateral leg pain Virgil Núñez [place] [address] [place] [address] [facility] Vasc Surgery [address] [place] [address] Referral ID Status Reason Start Date Expiration Date Visits Requested Visits Authorized [id number] Specialty Report Received Specialty Services Required 08/29/2017 1 1 Question Answer Reason for Request: smoker with sx of angina presenting with bilateral leg pain and color changes of toes with exercise (although also with prolonged sitting) Reason for Visit * Reason Comments Back Pain Encounter Details Date Type Department Care Team (Latest Contact Info) Description 08/29/2017 13:45 EDT Office Visit [facility] Interventional Pain [address] [place], [place] [phone] Virgil Núñez [place] [address] [place] [address] Ann-Marie Escalera MD [address] [place], [place] [phone] Pain in both feet (Primary Dx); Myofascial [...] documented in this encounter Progress Notes * Gilberto Ann-Marie - 08/29/2017 1345 EDT Success for Pain Medicine OP follow up visit [...] seeing a medical doctor (was seeing a gasoline truck crane operator before). Says she did discuss her angina [...] Laterality Date ??? APPENDECTOMY 2008 ??? CHOLECYSTECTOMY 1998 ??? COLECTOMY 2000 diverticulitis [...] with a Vascular surgeon and with a Terrazzo Installer. Ann-Marie Macias MD Attending attestation: I saw and examined the patient with the resident/fellow. I agree with the findings and plan of care documented in the resident's/fellow's note. Virgil Núñez MD documented in this encounter Plan of Treatment Upcoming Encounters Date Type Department Care Team (Late st Contact Info) Description 04/21/2024 15:00 EST Office Visit [facility] Neurology - S [address] [address] Robby Abraham MD [address] [place] [address], Level 2 [place] [phone] Scheduled Referrals Name Type Priority Associated Diagnoses [...] limb documented in this encounter Care Teams Sr Technical Sales Consultant Relationship Specialty Start Date End Date Obey Osborn APRN [address] [place] [address] DR HANEY [address] [place] [address] PCP - General 08/29/17 10/10/18 documented as of this encounter
--- OUTSIDE RECORDS SUMMARY | 2023-11-30 00:11 | XMS_ITS | Encounter Summary ---
Author Organization [facility] Address [address] [place] [address] Care Team Providers Care Manager Ship Name Role Phone Obey Osborn APRN Primary Care Provider [phone] Reason for Visit * Reason Comments Foot Pain * Consult (Routine/Next Available) - Specialty Report Received Specialty Diagnoses / Procedures Referred By Mayda jalloh Referred To Contact Orthopedic Surgery Diagnoses Pain in both feet Virgil Núñez [place] [address] [place] [address] [employer] Ortho Foot And Ankle [address] [place] [address] Referral ID Status Reason Start Date Expiration Date Visits Requested Visits Authorized [id number] Specialty Report Received Specialty Services Required 08/29/2017 1 1 Encounter Details Date Type Department Care Team (Late st Contact Info) Description 11/19/2017 14:[address] [facility] Foot & Ankle Program - [place] [address] [place] [address] Talha Oates DPM [address] [place] [address] Idiopathic peripheral neuropathy (Primary Dx) [...] Visit [facility] Neurology - S [place] [address] [place], [place] [address] Robby Abraham MD [address] [place] [address], Level 2 [place] [phone] documented as of this encounter Visit Diagnoses Diagnosis Idiopathic peripheral neuropathy- Primary Unspecified hereditary and idiopathic peripheral neuropathy documented in this encounter Care Teams Manager Ship Relationship Specialty Start Date End Date Obey Osborn APRN [address] [facility] [address] [place] [address] PCP - General 08/29/17 10/10/18 documented as of this encounter
--- OUTSIDE RECORDS SUMMARY | 2023-11-30 00:11 | XMS_ITS | Encounter Summary ---
Author Organization [facility] Address [address] [place] [address] Care Team Providers Care Yardage Control Operator Name Role Phone Obey Osborn APRN Primary Care Provider [phone] Reason for Visit * Reason Onset Date Comments Appointment Related 03/04/2018 Encounter Details Date Type Department Care Team ([facility] st Contact Info) Description 03/04/2018 Telephone [facility] Neurology - S [address] [address] Robby Abraham MD [address] [place] [address] Level 2 [place] [phone] Appointment Related Social History Tobacco Use Types [...] Telephone Encounter - Aydee Pisano - 03/04/2018 0977 EST Spoke to Aydee, she advised she [...] [facility] Neurology - S [address] [address] Robby Abraham MD [address] [place] [address], Level 2 [place] [phone] documented as of this encounter Visit Diagnoses Not on filedocumented in this encounter Care Teams Yardage Control Operator Relationship Specialty Start Date End Date Obey Osborn APRN [address] [place] [address] [address] [place], [place] [address] PCP - General 08/29/17 10/10/18 documented as of this encounter
--- OUTSIDE RECORDS SUMMARY | 2023-11-30 00:11 | XMS_ITS | Encounter Summary ---
Author Organization [facility] Address [address] [place] [address] Care Team Providers Care Ratings Analyst Name Role Phone Obey Osborn APRN Primary Care Provider [phone] None, Provider Primary Care Provider Jennifer Rushing MD Primary Care Provider [phone] Jacey Amador Primary Care Provider [phone] Reason for Visit * Reason Onset Date Comments Results 06/13/2018 Encounter Details Date Type Department Care Team (Late st Contact Info) Description 06/13/2018 Telephone [facility] Hematology & Oncology - [address] [address] Yarely Marti MD [address] [place] [address], Level 2 [place] [address] Results Social History Tobacco Use [...] encounter Miscellaneous Notes * Telephone Encounter - Yasmeen Ochoa - 06/13/2018 1622 EST Entered lab results from [facility] Yasmeen Bulle 06/13/2018 16:24 documented in this encounter Plan of Treatment Upcoming Encounters Date Type Department Care Team (Late st Contact Info) Description 04/21/2024 15:00 EST Office Visit [facility] Neurology - S [address] [address] Robby Abraham MD [address] [place] [address], Level 2 [place] [address] documented as of this encounter Procedures Procedure Name Priority Date/Time Associated Diagnosis Comments CREATININE Routine 06/13/2018 documented in this encounter Results * CREATININE (06/13/2018) Creatinine, External 0.60 [facility] GFR, Calculated, External [facility] Blood specimen (specimen) 06/13/2018 Historical Provider CHEMISTRY & BLOOD GAS ORDERABLES [facility] documented in this encounter Visit Diagnoses Not on filedocumented in this encounter Care Teams Ratings Analyst Relationship Specialty Start Date End Date Obey Osborn APRN [address] [facility] 2 [place], [place] [phone] PCP - General 08/29/17 10/10/18 None, Provider PCP - General 10/11/18 12/02/18 Jennifer rS MD [address] [place], [place] [phone] PCP - General 12/03/18 08/29/22 Jacey Amador FNP [address] [place] [address] PCP - General Family Medicine - Primary Care 08/30/22 documented as of this encounter
--- OUTSIDE RECORDS SUMMARY | 2023-11-30 00:11 | XMS_ITS | Encounter Summary ---
Author Organization [facility] Address [address] [place] [address] Care Team Providers Care Chartered Financial Analyst Name Role Phone Jennifer Sr MD Primary Care Provider [phone]- [phone] Reason for Visit * Reason Comments Follow-up Results discuss lab results/ lab draw Encounter Details Date Type Department Care Team ([facility] st Contact Info) Description 12/17/2018 8:00 EDT Office Visit [facility] Rheumatology & Immunology - [address] [address] Carl Flood Chi, MD [address] [place] [address], [address] [place] [address] Small fiber neuropathy (Primary Dx); [...] cause of her symptoms. Dx with Guillain [place]orton 2016 by [facility] neuro, which [facility] neurology does not agree with. Has ongoing [...] C4 40 dsDNA negative RF negative Agee, FILLING CARRIER negative SSA, SSB negative Thyroid antibodies negative [...] MONOCLONAL SPIKE SSA ANTIBODIES BY ALMA ROSA FILLING CARRIER ANTIBODIES BY ALMA ROSA SSB ANTIBODIES BY [...] Info) Description 04/21/2024 15:00 EST Office Visit [facility] Neurology - [address] [address] Robby Abraham MD [address] [place] [address], [address] 2 [place] [address] documented as of this encounter Procedures Procedure Name Priority Date/Time Associated Diagnosis Comments PATHOLOGY - SCANNED 12/18/2018 1 2:00 EDT OUTPATIENT ADD-ON Routine 12/17/2018 18: 06 EDT Positive ADRIANA (antinuclear antibody) OUTPATIENT ADD-ON Routine 12/17/2018 17: 17 EDT Positive ADRIANA (antinuclear antibody) documented in this encounter Results * PATHOLOGY - SCANNED (12/18/2018 12:00 EDT) 12/18/2018 12:0 0 EDT Scan 2 Senior Category Manager LAB INFO SERVICE AN D SUPPORT & PHONE RESULT * OUTPATIENT ADD-ON (12/17/2018 18:06 EDT) Tests to be added CANCEL RHEUMATOID FACTOR REQUEST PLACED EARLIER, ORDER ALREADY IN FOR ARTHRITIS 1 PROFILE WHICH HAS THE RHEUMATOID FACTOR. 12/17/2018 18:06 EDT [facility] Diagnosis Code SEE [employer], DOS 9.10.19 12/17/2018 18:12 EDT [facility] Number for problems 7 12/17/2018 18:06 EDT [facility] Comment:[id number] Accession number DUPLICATION OF REQUEST 12/17/2018 18:12 T [facility] Acknowledge ABP Done 9 18:12 T [facility] BLOOD SPECIMEN / Unknown 12/17/2018 18:06 EDT 12/17/2018 18:11 EDT Carl Flood MD HEMATOLOGY & PF4 ORD ERABLES [facility] [address] [place] [address] * OUTPATIENT ADD-ON (12/17/2018 17:17 EDT) Tests to be added RHEUMATOID FACTOR 12/17/2018 17:17 EDT [facility] Diagnosis Code SEE EPIC, DOS 9.10.19 12/17/2018 17:44 EDT [facility] Number for problems 7 12/17/2018 17:17 EDT [facility] Comment:[id number] Accession number DUPLICATION OF REQUEST IN ARTHRITIS PANEL 1 12/17/2018 18:14 T [facility] Comment:Corrected on 12/17 A T 1814: Previously reported as RFS TO [id number] Acknowledge ABP Done 9 18:14 [facility] BLOOD SPECIMEN / Unknown 12/17/2018 17:17 EDT 12/17/2018 17:43 EDT Carl Flood MD HEMATOLOGY & PF4 ORD ERABLES [facility] [address] [place] [address] * UA, CHEMICAL AND SEDIMENT ANALYSIS (DIPSTICK AND MICROSCOPIC) (12/17/2018 9:02 EDT) Color, UA Yellow 12/17/2018 9:42 [facility] Clarity, UA Clear 12/17/2018 9:42 [facility] Glucose, UA Neg Neg 12/17/2018 9:42 [facility] Bilirubin, UA Neg Neg 12/17/2018 9:42 [facility] Ketones, UA Neg Neg 12/17/2018 9:42 [facility] Refractometer SG,Urine 1.020 1.001 - 1.035 12/17/2018 9:42 [facility] Blood, UA Neg Neg 12/17/2018 9:42 [facility] pH, UA 5.0 4.6 - 8.0 12/17/2018 9:42 [facility] Protein, UA Neg Neg 12/17/2018 9:42 [facility] Urobilinogen, UA Normal Normal E.U./dl 12/17/2018 9:42 [facility] Nitrite, UA Neg Neg 12/17/2018 9:42 [facility] Leuk Esterase Neg Neg 12/17/2018 9:42 [facility] UA Method Used 12/17/2018 8:51 [facility] Comment: Testing performed using [employer]. Urine RBC Count Automated 0 to 2 0 to 2 /HPF 12/17/2018 9:42 EDT [facility] Urine WBC Count Automated 0 to 3 0 to 3 /HPF 12/17/2018 9:42 EDT [facility] Urine Squamous Epithelial Cell Count, Automated None seen None seen /LPF 12/17/2018 9:42 EDT [facility] Urine Hyaline Casts, Automated < or = 10 < or = 10 /LPF 12/17/2018 9:42 EDT [facility] Urine Bacteria Count, Automated None seen None seen 12/17/2018 9:42 EDT [facility] UA Comment Sediment results 12/17/2018 9:42 EDT [facility] Comment: are unreliable on urines unrefrig >2hrs or refrig >8hrs. Urine specimen (specimen) URINE / Unknown 12/17/2018 9:02 EDT 12/17/2018 9:30 EDT Carl Flood MD URINALYSIS ORDERABLE S Performing Organization Address City/[facility]/ZIP Co de Phone Number [facility] [address] [place] [address] * THYROID ANTIBODIES (12/17/2018 9:02 EDT) Thyroglobulin Ab 19 <61 U/mL 12/18/19 19 12:20 EDT [facility] Thyroperoxidase Ab 44 <61 U/mL 2018 13:08 EDT [facility] Blood specimen (specimen) BLOOD SPECIMEN / Unknown 12/17/2018 9:02 EDT 12/17/2018 10:10 EDT Narrative Authorizing Provider Result Charly Flood MD CHEMISTRY & BLOOD GA S ORDERABLES Performing Organization Address City/[facility]/ZIP Co de Phone Number [facility] [address] [place] [address] * SED. RATE:WESTERGREN (12/17/2018 9:02 EDT) Sed. Rate Westergren 5 0 - 30 mm/hr 12/17/2018 10:21 EDT [facility] Blood specimen (specimen) BLOOD SPECIMEN / Unknown 12/17/2018 9:02 EDT 12/17/2018 10:10 EDT Narrative Authorizing Provider Result Charly Flood MD HEMATOLOGY & PF4 ORD ERABLES Performing Organization Address [facility] Co de Phone Number [facility] [address] [place] [address] * TSH (12/17/2018 9:02 EDT) [facility] TSH 1.46 0.47 - 4.68 uIU/ml 12/17/2018 12:19 EDT [facility] Comment: The results of this assay can be falsely lowered due to the consumption of Biotin. Blood specimen (specimen) BLOOD SPECIMEN / Unknown 12/17/2018 9:02 EDT 12/17/2018 10:10 EDT Narrative Authorizing Provider Result Charly Flood MD CHEMISTRY & BLOOD GA S ORDERABLES Performing Organization Address [facility] de Phone Number [facility] [address] [place] [address] * SSB ANTIBODIES BY ALMA ROSA (12/17/2018 9:02 EDT) [facility] SSB Antibody 3.0 <20 Units 12/19/2018 13:07 EDT [facility] Comment: Negative: <20 Units Weak Positive: 20 - 39 Units Moderate Positive: 40 - 80 Units Strong Positive: >80 Units Results were obtained with the [employer] QUANTA SS-B ALMA ROSA. SS-B values obtained with different manufacturers' assay methods may not be used interchangeably. The magnitude of the reported IgG levels cannot be correlated to an endpoint titer. Blood specimen (specimen) BLOOD SPECIMEN / Unknown 12/17/2018 9:02 EDT 12/17/2018 10:10 EDT Narrative Authorizing Provider Result Charly Flood MD IMMUNOLOGY AND SEROL OGY ORDERABLES Performing Organization Address [facility] Co de Phone Number [facility] [address] [place] [address] * FILLING CARRIER ANTIBODIES BY ALMA ROSA (12/17/2018 9:02 EDT) [facility] FILLING CARRIER Antibody 1.7 <20 Units 12/19/2018 13:07 EDT [facility] Comment: Negative: <20 Units Weak Positive: 20 - 39 Units Moderate Positive: 40 - 80 Units Strong Positive: >80 Units Results were obtained with the [employer] QUANTA Lite FILLING CARRIER ALMA ROSA. FILLING CARRIER Values obtained with different manufacturers' assay methods may not be used interchangeably. The magnitude of the reported IgG levels cannot be correlated to an endpoint titer. A positive result in the QUANTA Lite FILLING CARRIER ALMA ROSA indicates the presence of antibodies reactive with the FILLING CARRIER/Sm complex but cannot distinguish between anti-Sm and anti-FILLING CARRIER activity. Blood specimen (specimen) BLOOD SPECIMEN / Unknown 12/17/2018 9:02 EDT 12/17/2018 10:10 EDT Carl Flood MD IMMUNOLOGY AND SEROL SAEID ORDERABLES Performing Organization Address [facility] de Phone Number [facility] [address] [place] [address] * SSA ANTIBODIES BY ALMA ROSA (12/17/2018 9:02 EDT) [facility] SSA Antibody 3.2 <20 Units 12/19/2018 13:07 EDT [facility] Comment: Negative: <20 [...] AND SEROL OGArtemio ORDERABLES Performing Organization Address [facility] Co de Phone Number [facility] [address] [place] [address] * SPEP, INCLUDES QUANTITATION OF MONOCLONAL SPIKE (12/17/2018 9:02 EDT) [facility] Total Protein 7.0 6.3 - 8.2 g/dl 12/17/2018 11:49 [facility] Albumin % 63.3 55.8 - 66.1 % 12/18/2018 14:11 [facility] Alpha-1 % 3.6 2.9 - 4.9 % 12/18/2018 14:11 [facility] Alpha-2 % 10.1 7.1 - 11.8 % 12/18/2018 14:11 [facility] Beta % 11.4 8.4 - 13.1 % 12/18/2018 14:11 [facility] Gamma % 11.6 11.1 - 18.8 % 12/18/2018 14:11 [facility] Comments 12/18/2018 14:11 [facility] Comment: No apparent monoclonal protein on serum electrophoresis. See Pathology Scanned Report in EPIC. Blood specimen (specimen) BLOOD SPECIMEN / Unknown 12/17/2018 9:02 EDT 12/17/2018 10:10 EDT Narrative Authorizing Provider Result Charly Flood MD CHEMISTRY & BLOOD GA S ORDERABLES Performing Organization Address City/[facility]/ZIP Co de Phone Number [facility] [address] [place] [address] * (ABNORMAL) C REACTIVE PROTEIN (12/17/2018 9:02 EDT) C Reactive Protein 11.4(H) <10.0 mg/L 12/17/2018 12:00 EDT [facility] Blood specimen (specimen) BLOOD SPECIMEN / Unknown 12/17/2018 9:02 EDT 12/17/2018 10:10 EDT Narrative Authorizing Provider Result Charly Flood MD CHEMISTRY & BLOOD GA S ORDERABLES [facility] [address] [place] [address] * CCP ANTIBODIES (12/17/2018 9:02 EDT) CCP Antibodies <2.5 <5.0 U/mL 12/17/2018 13:18 EDT [facility] BLOOD SPECIMEN / Unknown 12/17/2018 9:02 EDT 12/17/2018 10:10 EDT Narrative Authorizing Provider Result Charly Flood MD IMMUNOLOGY AND SEROL OGY ORDERABLES [facility] [address] [place] [address] * CK (12/17/2018 9:02 EDT) CK 55 30 - 135 U/L 12/17/2018 11:49 EDT [facility] Blood specimen (specimen) BLOOD SPECIMEN / Unknown 12/17/2018 9:02 EDT 12/17/2018 10:10 EDT Narrative Authorizing Provider Result Charly Flood MD CHEMISTRY & BLOOD GA S ORDERABLES Performing Organization Address [facility] Co de Phone Number [facility] [address] [place] [address] * (ABNORMAL) COMPREHENSIVE METABOLIC PANEL (CMP) (12/17/2018 9:02 EDT) Potassium 3.9 3.5 - 5.0 mEq/L 12/17/2018 12:00 EDT [facility] Sodium 141 136 - 145 mEq/L 12/17/2018 12:00 EDT [facility] Chloride 103 96 - 110 mEq/L 12/17/2018 12:00 T [facility] CO2 29 22 - 32 mEq/L 12/17/2018 12:00 T [facility] Total Alkaline Phosphatase 56 38 - 126 U/L 12/17/2018 12:00 T [facility] Bilirubin, Total <0.5 <1.4 mg/dl 12/18/19 19 12:00 T [facility] AST 20 15 - 46 U/L 12/17/2018 12:00 T [facility] ALT 18 <34 U/L 12/17/2018 12:00 T [facility] Albumin 4.4 3.4 - 4.9 g/dl 12/17/2018 12:00 T [facility] Total Protein 7.2 6.3 - 8.2 g/dl 12/17/2018 12:00 T [facility] Creatinine 0.59 0.52 - 1.04 mg/dl 12/17/2018 12:00 [facility] GFR, Calculated 104 >60 ml/min/1.7 3m2 12/17/2018 12:00 [facility] Comment: eGFR calculated using CKD-EPI equation for non Americans. Multiply eGFR by 1.16 for Americans. BUN 7(L) 10 - 26 mg/dl 12/17/2018 12:00 T [facility] Calcium 10.1 8.5 - 10.5 mg/dl 12/17/2018 12:00 [facility] Calculated Calcium 9.8 8.5 - 10.5 mg/dl 12/17/2018 12:00 [facility] Glucose, Serum 98 70 - 100 mg/dl 12/17/2018 12:00 [facility] Fasting? No 12/17/2018 8:55 [facility] Blood specimen (specimen) BLOOD SPECIMEN / Unknown 12/17/2018 9:02 EDT 12/17/2018 10:10 EDT Carl Flood MD CHEMISTRY & BLOOD GA S ORDERABLES [facility] [address] [place] [address] * (ABNORMAL) COMPLETE BLOOD COUNT AND DIFFERENTIAL (12/17/2018 9:02 EDT) WBC 8.88 4.0 - 12.4 K/cmm 12/17/2018 10:22 [facility] RBC 4.31 3.86 - 5.04 M/cmm 12/17/2018 10:22 [facility] Hemoglobin 13.8 11.6 - 15.2 gm/dl 12/17/2018 10:22 [facility] HCT 40.6 34.9 - 44.4 % 12/17/2018 10:22 [facility] MCV 94 81 - 98 fl 12/17/2018 10:22 [facility] MCH 32.0 26.7 - 33.3 pg 12/17/2018 10:22 [facility] MCHC 34.0 32.1 - 35.9 gm/dl 12/17/2018 10:22 [facility] RDW-CV 11.9 <14.7 % 12/17/2018 10:22 [facility] RDW-SD 41.2 <50.4 fl 12/17/2018 10:22 [facility] PLT 316 141 - 377 K/cmm 12/17/2018 10:22 [facility] MPV 9.5 9.5 - 12.7 fl 12/17/2018 10:22 [facility] % Neutrophils 50.4 % 12/17/2018 10:22 [facility] % Lymphocytes 38.3 % 12/17/2018 10:22 [facility] % Monocytes 7.0 % 12/17/2018 10:22 [facility] % Eosinophils 3.5 % 12/17/2018 10:22 [facility] % Basophils 0.6 % 12/17/2018 10:22 [facility] % Immature Grans 0.2 % 12/17/2018 10:22 [facility] ABS Neutrophils 4.48 2.20 - 8.85 K/cmm 12/17/2018 10:22 [facility] ABS Lymphs 3.40(H) 1.09 - 3.30 K/cmm 12/17/2018 10:22 [facility] ABS Monocytes 0.62 0.1 - 0.8 K/cmm 12/17/2018 10:22 [facility] ABS Eosinophils 0.31 0.03 - 0.61 K/cmm 12/17/2018 10:22 [facility] ABS Basophils 0.05 0.01 - 0.11 K/cmm 12/17/2018 10:22 [facility] ABS Immature Grans 0.02 0 - 0.06 K/cmm 12/17/2018 10:22 EDT [facility] Type of Diff: Automated 12/17/2018 10:22 EDT [facility] Blood specimen (specimen) BLOOD SPECIMEN / Unknown 12/17/2018 9:02 EDT 12/17/2018 10:10 EDT Carl Flood MD PACKAGES & DNA PROBE ORDERABLES Performing Organization Address [facility] de Phone Number [facility] [address] [place] [address] * (ABNORMAL) ARTHRITIS 1 (12/17/2018 9:02 EDT) Rheumatoid Factor 11 <12.5 IU/mL 2018 12:47 EDT [facility] ADRIANA Interpretation Positive(A) Negative 12/18/2018 14:19 EDT [facility] Comment: For titers greater [...] Titer Pattern 1:320 Homogeneous 12/18/2018 14:19 EDT [facility] Blood specimen (specimen) BLOOD SPECIMEN / Unknown 12/17/2018 9:02 EDT 12/17/2018 10:10 EDT Carl Flood MD IMMUNOLOGY AND SEROL OGY ORDERABLES Performing Organization Address [facility] Co de Phone Number [facility] [address] [place] [address] * SM (AGEE) ANTIBODY (12/17/2018 9:02 EDT) Sm (Agee) Antibody 1.8 <20 Units 12/19/2018 13:07 EDT [facility] Comment: Negative: <20 [...] OGY ORDERABLES Performing Organization Address [facility] de Phone Number [facility] [address] [place] [address] * ANGIOTENSIN CONVERTING ENZYME (LESLI) (12/17/2018 9:02 EDT) Pathologist [facility] Angiotensin Converting Enzyme 32 16 - 85 U/L 12/19/2018 8:10 EDT [facility] Comment: Performed or Referred by: [facility], [address] [place] [id number] Blood specimen (specimen) BLOOD SPECIMEN / Unknown 12/17/2018 9:02 EDT 12/17/2018 10:10 EDT Narrative Authorizing Provider Result Charly Flood MD CHEMISTRY & BLOOD GA S ORDERABLES Performing Organization Address [facility] Number [facility] [address] [place] [address] * ANCA, IFA (12/17/2018 9:02 EDT) [facility] ANCA Interpretation Negative Negative 12/18/2018 14:19 EDT [facility] Comment: ADRIANA Positive, suggest [...] OGY ORDERABLES Performing Organization Address [facility]/ZIP Co de Phone Number [facility] [address] [place] [address] * ANTI DNA (DOUBLE STRAND) (12/17/2018 9:02 EDT) Anti DNA (DS) <12.3 <30 IU/mL 12/19/2018 14:51 EDT [facility] Comment:Results were obtaine d with the [employer] QUANTA Lite dsDNA SC ALMA ROSA assay. Blood specimen (specimen) BLOOD SPECIMEN / Unknown 12/17/2018 9:02 EDT 12/17/2018 10:10 EDT Carl Flood MD IMMUNOLOGY AND SERWALESKA BREAUX ORDERABLES [facility] [address] [place] [address] documented in this encounter Visit Diagnoses Diagnosis [...] documented as of this encounter Care Teams Chartered Financial Analyst Relationship Specialty Start Date End Date Jennifer Sr MD [facility] [place] [address] PCP - General 12/03/18 08/29/22 documented as of this encounter
--- OUTSIDE RECORDS SUMMARY | 2023-11-30 00:11 | XMS_ITS | Encounter Summary ---
Author Organization [facility] Address [address] [place] [address] Care Team Providers Care Project Accountant Name Role Phone None, Provider Primary Care Provider Jennifer Rushing MD Primary Care Provider [phone]- [phone] Reason for Visit * Reason Onset Date Comments Appointment Related 12/02/2018 Encounter Details Date Type Department Care Team ([facility] st Contact Info) Description 12/02/2018 Telephone [facility] [place] [address] Randall Corey MD [address] [place] [address] Appointment Related Social History Tobacco Use Types [...] Description 04/21/2024 15:00 EST Office Visit [facility] Neurology - [address] [id number] Robby Abraham MD [address] [place] [address], [address] [place] [phone] documented as of this encounter Visit Diagnoses Not on filedocumented in this encounter Care Teams Project Accountant Relationship Specialty Start Date End Date None, Provider PCP - General 10/11/18 12/02/18 Jennifer Sr MD [address] [address] PCP - General 12/03/18 08/29/22 documented as of this encounter
--- OUTSIDE RECORDS SUMMARY | 2023-11-30 00:11 | XMS_ITS | Encounter Summary ---
Author Organization [facility] Address [address] [place] [address] Care Team Providers Care Transition Advisor Name Role Phone Obey Osborn APRN Primary Care Provider [phone] Reason for Referral * Office Procedure (Routine) - Closed Specialty Diagnoses / Procedures Referred By Mayda jalloh Referred To Contact Neurology Diagnoses Neuropathy Procedures EMG/NERVE CONDUCTION STUDY Robby Abraham MD [address] [place] [phone] [facility] Neuromusc & Clin Neurophys [address] [place] [address] Referral ID Status Reason Start Date Expiration Date Visits Re quested Visits Authorized [id number] Closed 01/14/2018 1 1 Reason for Visit * Reason Comments New Patient Visit * Referral (Routine) - Closed Specialty Diagnoses / Procedures Referred By Contashu t Referred To Contact Neurology Diagnoses Neuropathy of foot, unspecified laterality Obey Osborn APRN [address] [place] [address] 2 [place] [address] Juan David Mayberry MD [address] [place] [phone] Referral ID Status Reason Start Date Expiration Date Visits Re quested Visits Authorized [id number] Closed 1 1 Encounter Details Date Type Department Care Team ([facility] st Contact Info) Description 01/14/2018 13:00 EDT Office Visit [facility] Neurology - S [address] [id number] Robby Abraham MD [address] [place] [address], Level [address] [place] [address] Neuropathy (Primary Dx) Discharge Disposition: [...] Diagnoses Diagnosis G62.9 Polyneuropathy, unspecified-G62.9[ICD-10-CM] Z79.899 Other detention (current) drug therapy-Z79.899[ICD-10-CM] documented in this encounter [...] started sometime around 2011. She was in [place] inearly 2011 and got what sounds like [...] past including recently 2 different physicians at [facility]. She mentions a variety of diagnoses today [...] rheumatologic disorder. She was previously seen at [facility] as well. I the notes from Dr [...] completed. In terms of other workup at [facility] notes reflect an MRI of the C-spine that was unremarkable from 2016 with only mild narrow canal centrally at C5-6 and some mild neuroforaminal narrowing at levels including C6-7. Previous work up: (all lab values and available NCS/ EMG studies/ and imaging studies tracings were independently reviewed.) Abnormal labs:ADRIANA positive at 1-320 in a speckled pattern Normal labs: Thyroid antibodies, folate, EDGE CUTTING MACHINE OPERATOR antibodies, SSA/SSB, CMP, Lyme, C4 minimally elevated at 40, rheumatoid factor, anti-Agee antibodies, zyas-vcqzmm-actxfjyg DNA, parvovirus, CMV, mycoplasma pneumonia IgG positive, [...] Date ??? Angina at rest ([facility]) ??? Chronic back pain ??? Chronic [...] is reduced in the feet bilaterally Coordination: Qgqlcq-jx-jrtt and iqrt-ec-ohhy are intact. Rapid alternating movements are fast [...] neuropathy. I reviewed her previous workup at [facility] in detail and none of her imaging [...] and no evidenceof rheumatologic disorder per her police communications dispatcher. I do not see vitamin studies anywhere [...] referring physician Obey Osborn. Robby Abraham M.D. Quality Control Supervisor of Neurology ABPN Board Certified, Neurology ABEM Board Certified, EMG documented in this encounter Plan of Treatment Upcoming Encounters Date Type Department Care Team (Late st Contact Info) Description 04/21/2024 15:00 EST Office Visit [facility] Neurology - S [address] [phone] Robby Abraham MD [address] [place] [address] Level 2 [place] [phone] Scheduled Orders Name Type Priority Associated Diagnoses Orde r Schedule EMG/NERVE CONDUCTION STUDY Procedures Routine Neuropathy Ordered: 01/14/2018 documented as of this encounter Procedures Procedure Name Priority Date/Time Associated Diagnosis Comments PATHOLOGY - SCANNED 01/15/2018 12:23 EDT documented in this encounter Results * PATHOLOGY - SCANNED (01/15/2018 12:23 EDT) 01/15/2018 12:2 3 EDT Scan 2 Billiard Table Repairer LAB INFO SERVICE AN D SUPPORT & PHONE RESULT * HEMOGLOBIN A1C (01/14/2018 14:18 EDT) Hemoglobin A1C 5.7 % 01/15/2018 9:48 [facility] Comment: Reference Range: <5.7% Normal 5.7-6.4% Prediabetes =>6.5% Diagnostic for diabetes (if confirmed) Goals for glycemic control in diabetes ADA 2017 For non adults with diabetes: ?? Target <7.0% For children and adolescents with type 1 diabetes: ?? Target <7.5% More or less stringent targets may be appropriate for individual patients. Est Avg Glucose 117 mg/dl 8 9:48 T [facility] Comment: eAG represents the A1c result expressed as average glucose in mg/dl. Blood specimen (specimen) BLOOD SPECIMEN / Unknown 01/14/2018 14:18 EDT 01/14/2018 15:26 EDT Robby Abraham MD CHEMISTRY & BLOOD GA S ORDERABLES [facility] [address] [place] [address] * SPEP WITH IMMUNOTYPING (01/14/2018 14:18 EDT) Total Protein 7.2 6.3 - 8.2 g/dl 01/14/2018 16:03 [facility] Albumin % 62.4 55.8 - 66.1 % 01/15/2018 13:12 [facility] Alpha-1 % 3.8 2.9 - 4.9 % 01/15/2018 13:12 [facility] Alpha-2 % 10.3 7.1 - 11.8 % 01/15/2018 13:12 [facility] Beta % 11.4 8.4 - 13.1 % 01/15/2018 13:12 [facility] Gamma % 12.1 11.1 - 18.8 % 01/15/2018 13:12 [facility] Comments 01/15/2018 13:12 [facility] Comment: No apparent monoclonal protein on serum electrophoresis. See Pathology Scanned Report in [facility]. Immunotyping, Serum 01/15/2018 14:24 EDT [facility] Comment: Interpretation: Negative for monoclonal immunoglobulins. Interpreted by: ??Antonio Sorensen MD ON 01/15/2018 1424 Reference Range: Negative for monoclonal immunoglobulins. Blood specimen (specimen) BLOOD SPECIMEN / Unknown 01/14/2018 14:18 EDT 01/14/2018 15:26 EDT Robby Abraham MD CHEMISTRY & BLOOD GA S ORDERABLES [facility] [address] [place] [address] documented in this encounter Visit Diagnoses Diagnosis [...] 12/17/2018 added in this encounter Care Teams Transition Advisor Relationship Specialty Start Date End Date Obey Osbonr APRN [address] [place] [address] [address] [place] [address] PCP - General 08/29/17 10/10/18 documented as of this encounter
--- OUTSIDE RECORDS SUMMARY | 2023-11-30 00:11 | XMS_ITS | Encounter Summary ---
Author Organization [facility] Address [address] [place] [address] Care Team Providers Care Systems Integration Manager Name Role Phone Obey Osborn APRN Primary Care Provider [phone] Encounter Details Date Type Department Care Team (Late Contact Info) Description 03/20/2018 Orders Only [address] 240[address] Robby Abraham MD [address] [place] [address] Level 2 [place] [address] Neuropathy (Primary Dx) Social History [...] 04/21/2024 15:00 EST Office Visit [facility] [address] [address] Robby Abraham MD 1 [facility], [address] [place] [phone] documented as of this encounter Visit Diagnoses Diagnosis Neuropathy- Primary Mononeuritis of unspecified site documented in this encounter Care Teams Systems Integration Manager Relationship Specialty Start Date End Date Obey Osborn APRN [address] [place] [address] [phone] PCP - General 08/29/17 10/10/18 documented as of this encounter
--- OUTSIDE RECORDS SUMMARY | 2023-11-30 00:11 | XMS_ITS | Encounter Summary ---
Author Organization [facility] Address [address] [place] [address] Care Team Providers Care Water Fitness Instructor Name Role Phone Obey Osborn APRN Primary Care Provider [phone] Encounter Details Date Type Department Care Team (Late Contact Info) Description 09/04/2017 Results Only Imaging [facility] [phone] Unknown, Provider, Social History Tobacco Use Types [...] Upcoming Encounters Date Type Department Care Team ([facility] Contact Info) Description 04/21/2024 15:00 EST Office Visit [facility] Neurology - S [place] [address] [place] [phone] Robby Abraham MD [address] [place] [address], Level [address] [place] [address] Pending Results Name Type Priority Associated Diagnoses Date /Time OUTSIDE IMAGES - MR NEURO Imaging 09/04/2017 8:01 EDT OUTSIDE IMAGES - MR NEURO Imaging 09/04/2017 8:01 EDT documented as of this encounter Visit Diagnoses Not on filedocumented in this encounter Care Teams Water Fitness Instructor Relationship Specialty Start Date End Date Obey Osborn APRN [address] [place] [address] DR [address] [place] [address] PCP - General 08/29/17 10/10/18 documented as of this encounter
--- OUTSIDE RECORDS SUMMARY | 2023-11-30 00:11 | XMS_ITS | Encounter Summary ---
Author Organization [facility] Address [address] [place] [address] Care Team Providers Care Access Consultant Name Role Phone Jennifer Sr MD Primary Care Provider [phone] Encounter Details Date Type Department Care Team (Latest Contact Info) Description 12/03/2018 15:33 EDT - 12/03/2018 23:59 EDT Hospital Encounter [address] [address] Randall Corey MD [address] [place] [address] Discharge Disposition: Auto Discharge Social History Tobacco [...] 04/21/2024 15:00 EST Office Visit [facility] Neurology - S [address] 937051 Robby Abraham MD [address] [place] [address], Level [address] [place] [address] documented as of this encounter Visit Diagnoses Not on filedocumented in this encounter Care Teams Access Consultant Relationship Specialty Start Date End Date Jennifer Sr MD [address], [address] [address] PCP - General 12/03/18 08/29/22 documented as of this encounter
--- OUTSIDE RECORDS SUMMARY | 2023-11-30 00:11 | XMS_ITS | Encounter Summary ---
Author Organization [facility] Address [address] [place] [address] Care Team Providers Care Housing Specialist Name Role Phone Obey Osborn APRN Primary Care Provider [phone] Reason for Referral * Consult (Routine) - Closed Specialty Diagnoses / Procedures [facility] Referred To Contact Neurology Diagnoses Chronic nonintractable headache, unspecified headache type Robby Abraham MD [address] [place] [phone] Neurology 2c, Resident Referral ID Status Reason Start Date Expiration Date V isits Requested Visits Authorized [id number] Closed Specialty Services Required 03/04/2018 1 1 Question Answer Reason for Request: general neuro resident clinic for headaches Reason for Visit * Reason Comments Follow-up Neuropathy. Pt would like a prescription for antacid for stomach Encounter Details Date Type Department Care Team (Late st Contact Info) Description 03/04/2018 11:00 EST Office Visit [facility] Neurology - S [address] [address] Robby Abraham MD [address] [place] [phone] Chronic nonintractable headache, unspecified headache type [...] hard time getting out of bed to [facility]. She used to work out regularly but [...] from her neuropathic pain. The to work [id number]. In addition to discussing this with her [...] to the referring physician Obey Abraham M.D. [employer] of Neurology ABPN Board Certified, Neurology ABEM Board Certified, EMG documented in this encounter Plan of Treatment Upcoming Encounters Date Type Department Care Team (Late st Contact Info) Description 04/21/2024 15:00 EST Office Visit [facility] Neurology - S [address] [address] Robby Abraham MD [address] [place] [address] Level 2 [place] [address] Scheduled Referrals Name Type Priority Associated Diagnoses [...] 12/17/2018 added in this encounter Care Teams Housing Specialist Relationship Specialty Start Date End Date Obey Osborn APRN [address] [place] [address] [address] [place] [address] PCP - General 08/29/17 10/10/18 documented as of this encounter
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
--- OUTSIDE RECORDS SUMMARY | 2023-11-30 00:11 | XMS_ITS | Encounter Summary ---
Author Organization [facility] Address [address] [place] [address] Care Team Providers Care Data Processing Consultant Name Role Phone Obey Osborn APRN Primary Care Provider [phone] Reason for Visit * Reason Onset Date Comments Labs Only 03/18/2018 Encounter Details Date Type Department Care Team ([facility] st Contact Info) Description 03/18/2018 Telephone [facility] Neurology - S [address] [address] Robby Abraham MD [address] [place] [address] Level [address] [place] [phone] Labs Only Social History Tobacco Use Types [...] 03/18/2018 1412 EST Stephanie from [facility] Billing called and said Dr Abraham [...] Info) Description 04/21/2024 15:00 EST Office Visit [facility] Neurology - S [address] [address] Robby Abraham MD [address] [place] [address], Level [address] [place] [phone] documented as of this encounter Visit Diagnoses Not on filedocumented in this encounter Care Teams Data Processing Consultant Relationship Specialty Start Date End Date Obey Osborn APRN [address] [place] [address] [address] [place], [place] [phone] PCP - General 08/29/17 10/10/18 documented as of this encounter
--- OUTSIDE RECORDS SUMMARY | 2023-11-30 00:11 | XMS_ITS | Encounter Summary ---
Author Organization [facility] Address [address] [place] [address] Care Team Providers Care Jboss Architect Name Role Phone None, Provider Primary Care Provider Jennifer Rushing MD Primary Care Provider [phone] Reason for Visit * Reason Onset Date Comments Appointment Related 10/15/2018 Encounter Details Date Type Department Care Team ([facility] st Contact Info) Description 10/15/2018 Telephone [facility] Rheumatology & Immunology - [address] [address] Carl Flood Chi, MD [address] [place] [address], [address] [place] [address] Appointment Related Social History Tobacco [...] Info) Description 04/21/2024 15:00 EST Office Visit [facility] Neurology - S [address] 4280[address] Robby Abraham MD [address] [place] [address] Level [address] [place] [phone] documented as of this encounter Visit Diagnoses Not on filedocumented in this encounter Care Teams Jboss Architect Relationship Specialty Start Date End Date None, Provider PCP - General 10/11/18 12/02/18 Jennifer Sr MD [address], [address] [address] PCP - General 12/03/18 08/29/22 documented as of this encounter
--- OUTSIDE RECORDS SUMMARY | 2023-11-30 00:11 | XMS_ITS | Encounter Summary ---
Author Organization [facility] Address [address] [place] [address] Care Team Providers Care Customer Care Assistant Name Role Phone Obey Osborn APRN Primary Care Provider [phone] Reason for Visit * Reason Onset Date Comments Appointment Related 01/15/2018 Encounter Details Date Type Department Care Team ([facility] Contact Info) Description 01/15/2018 Telephone [facility] Neurophysiology - [address] [address] Robby Abraham MD [address] [place] [address] 2 [place] [phone] Appointment Related Social History Tobacco Use Types [...] Telephone Encounter - Aydee Pisano - 02/20/2018 0023 EST Spoke to Aydee and reschedule her [...] Visit [facility] Neurology - S [address] 7339[address] Robby Abraham MD [address] [place] [address], Level [address] [place] [phone] documented as of this encounter Visit Diagnoses Not on filedocumented in this encounter Care Teams Customer Care Assistant Relationship Specialty Start Date End Date Obey Osborn APRN [address] [place] [address] [address] [place], [place] [phone] PCP - General 08/29/17 10/10/18 documented as of this encounter
--- OUTSIDE RECORDS SUMMARY | 2023-11-30 00:11 | XMS_ITS | Encounter Summary ---
Author Organization [facility] Address [address] [place] [address] Care Team Providers Care Curriculum Manager Name Role Phone Obey Osborn APRN Primary Care Provider [phone] Reason for Visit * Reason Onset Date Comments Appointment Related 09/28/2017 Encounter Details Date Type Department Care Team ([facility] st Contact Info) Description 09/28/2017 Telephone [facility] Neurology - S [address] [address] Unknown, Doctor MD Appointment Related Social History [...] Description 04/21/2024 15:00 EST Office Visit [facility] Neurology - S [address] 5498[address] Robby Abraham MD [address] [place] [address], Level [address] [place] [phone] documented as of this encounter Visit Diagnoses Not on filedocumented in this encounter Care Teams Curriculum Manager Relationship Specialty Start Date End Date Obey Osborn APRN [address] [place] [address] [address] [place], [place] [phone] PCP - General 08/29/17 10/10/18 documented as of this encounter
--- OUTSIDE RECORDS SUMMARY | 2023-11-30 00:11 | XMS_ITS | Encounter Summary ---
Author Organization [facility] Address [address] [place] [address] Care Team Providers Care Turkey Boner Name Role Phone Jennifer Sr MD Primary Care Provider [phone] Encounter Details Date Type Department Care Team ([facility] st Contact Info) Description 12/17/2018 8:43 EDT - 12/17/2018 23:59 EDT Hospital Encounter [address] [address] Carl Flood Chi, MD [address] [place] [address], [address] [place] [address] Discharge Disposition: Auto Discharge Social History Tobacco [...] Info) Description 04/21/2024 15:00 EST Office Visit [facility] Neurology - S [address] [phone] Robby Abraham MD [address] [place] [address], Level [address] [place] [address] documented as of this encounter Visit Diagnoses Not on filedocumented in this encounter Care Teams Turkey Boner Relationship Specialty Start Date End Date Jennifer Sr MD [address] [place] [address] PCP - General 12/03/18 08/29/22 documented as of this encounter
--- OUTSIDE RECORDS SUMMARY | 2023-11-30 00:11 | XMS_ITS | Encounter Summary ---
Author Organization [facility] Address [address] [place] [address] Care Team Providers Care Regulatory Submissions Specialist Name Role Phone Obey Osborn APRN Primary Care Provider [phone] Encounter Details Date Type Department Care Team (Late Contact Info) Description 06/21/2018 Results Only Imaging [facility] [phone] Unknown, Provider, Social History Tobacco Use Types [...] Upcoming Encounters Date Type Department Care Team ([facility] Contact Info) Description 04/21/2024 15:00 EST Office Visit [facility] Neurology - S [place] [address] [place] [phone] Robby Abraham MD [address] [place] [address], Level [address] [place] [address] Pending Results Name Type Priority Associated Diagnoses Date /Time OUTSIDE IMAGES - MR NEURO Imaging 06/21/2018 10:04 EDT OUTSIDE IMAGES - MR NEURO Imaging 06/21/2018 10:04 EDT documented as of this encounter Visit Diagnoses Not on filedocumented in this encounter Care Teams Regulatory Submissions Specialist Relationship Specialty Start Date End Date Obey Osborn APRN [address] [place] [address] [address] [place] [address] PCP - General 08/29/17 10/10/18 documented as of this encounter
--- OUTSIDE RECORDS SUMMARY | 2023-11-30 00:11 | XMS_ITS | Encounter Summary ---
Author Organization [facility] Address [address] [place] [address] Care Team Providers Care Assistant Men'S Soccer Coach Name Role Phone None, Provider Primary Care Provider Jennifer Rushing MD Primary Care Provider [phone] Reason for Visit * Reason Onset Date Comments Appointment Related 10/15/2018 Encounter Details Date Type Department Care Team ([facility] st Contact Info) Description 10/15/2018 Telephone [facility] [place] [address] Randall Corey MD [address] [place] [address] Appointment Related Social History Tobacco Use Types [...] 04/21/2024 15:00 EST Office Visit [facility] Neurology - [address] 833271 Robby Abraham MD [address] [place] [address] Level 2 [place] [phone] documented as of this encounter Visit Diagnoses Not on filedocumented in this encounter Care Teams Assistant Men'S Soccer Coach Relationship Specialty Start Date End Date None, Provider PCP - General 10/11/18 12/02/18 Jennifer Sr MD [address], [address] [address] PCP - General 12/03/18 08/29/22 documented as of this encounter
--- OUTSIDE RECORDS SUMMARY | 2023-11-30 00:11 | XMS_ITS | Encounter Summary ---
Author Organization [facility] Address [address] [place] [address] Care Team Providers Care Control Inspector Name Role Phone Obey Osborn APRN Primary Care Provider [phone] Reason for Visit * Reason Onset Date Comments Results 06/24/2018 Encounter Details Date Type Department Care Team ([facility] Contact Info) Description 06/24/2018 Telephone [facility] [place] [address] Randall Corey MD [address] [place] [address] Results Social History Tobacco Use Types Packs/Day [...] Encounter - Randall Corey MD - 06/24/2018 7285 EDT Patient updated about result MRI head and MRI cervical spine Both with no acute findings documented in this encounter Plan of Treatment Upcoming Encounters Date Type Department Care Team (Late st Contact Info) Description 04/21/2024 15:00 EST Office Visit [facility] Neurology - S [address] [phone] Robby Abraham MD [address] [place] [address], Level [address] [place] [phone] documented as of this encounter Visit Diagnoses Not on filedocumented in this encounter Care Teams Control Inspector Relationship Specialty Start Date End Date Obey Osborn APRN [address] [place] [address] [facility] [address] [place], [place] [phone] PCP - General 08/29/17 10/10/18 documented as of this encounter
--- OUTSIDE RECORDS SUMMARY | 2023-11-30 00:11 | XMS_ITS | Encounter Summary ---
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) [...] Description 04/21/2024 15:00 EST Office Visit [facility] Neurology - S [place] [address] [place] [address] [phone] Robby Abraham MD [address] [place] [address], Level 2 [place] [phone] documented as of this encounter Procedures Procedure Name Priority Date/Time Associated Diagnosis Comments TSH Routine 12/03/2018 15:45 EDT Decline in verbal memory VITAMIN B12 Routine 12/03/2018 15:45 EDT Decline in verbal memory documented in this encounter Results * VITAMIN B12 (12/03/2018 15:45 EDT) Vitamin B-12 678 211 - 911 pg/ml 12/04/2018 10:22 EDT [facility] Blood specimen (specimen) BLOOD SPECIMEN / Unknown 12/03/2018 15:45 EDT 12/03/2018 16:05 EDT Amy Agee MD CHEMISTRY & BLOOD GA S ORDERABLES Performing Organization Address City/[facility]/ZIP Co de Phone Number [facility] [address] [place] [address] * TSH (12/03/2018 15:45 EDT) TSH 0.61 0.47 - 4.68 uIU/ml 12/03/2018 17:01 EDT [facility] Comment: The results of this assay can be falsely lowered due to the consumption of Biotin. Blood specimen (specimen) BLOOD SPECIMEN / Unknown 12/03/2018 15:45 EDT 12/03/2018 16:05 EDT Amy Agee MD CHEMISTRY & BLOOD GA S ORDERABLES [facility] [address] [place] [address] documented in this encounter Visit Diagnoses Diagnosis Decline in verbal memory- Primary documented in this encounter Care Teams Multimedia Editor Relationship Specialty Start Date End Date Jennifer Sr MD [address] [place] [address] PCP - General 12/03/18 08/29/22 documented as of this encounter
--- OUTSIDE RECORDS SUMMARY | 2023-11-30 00:11 | XMS_ITS | Encounter Summary ---
Author Organization [facility] Address [address] [place] [address] Care Team Providers Care Peoplesoft Business Analyst Name Role Phone Obey Osborn APRN Primary Care Provider [phone] Reason for Visit * Reason Onset Date Comments New Patient Visit 03/21/2018 Encounter Details Date Type Department Care Team ([facility] st Contact Info) Description 03/21/2018 Telephone [facility] Neurology - [address] [phone] Unknown, Doctor New Patient Visit Social History [...] Pisano - 03/26/2018 1308 EST Lashaun with [facility] is calling to confirm the at [address] Corey - she is helping Aydee with transportation. * Telephone Encounter - Collin Yañez - 03/22/2018 1411 EST Scheduled NPV with Dr Corey 05/29 at 3:00pm * Telephone Encounter - Aydee Pisano - 03/21/2018 1352 EST LMOM to schedule NPV with General Neurology documented in this encounter Plan of Treatment Upcoming Encounters Date Type Department Care Team (Late st Contact Info) Description 04/21/2024 15:00 EST Office Visit [facility] Neurology - S [address] 2317[address] Robby Abraham MD 1 [facility], Level 2 [place] [phone] documented as of this encounter Visit Diagnoses Not on filedocumented in this encounter Care Teams Peoplesoft Business Analyst Relationship Specialty Start Date End Date Obey Osborn APRN [address] [place] [address] DR H[address] [place] [address]255 PCP - General 08/29/17 10/10/18 documented as of this encounter
--- OUTSIDE RECORDS SUMMARY | 2023-11-30 00:11 | XMS_ITS | Encounter Summary ---
Author Organization [facility] Address [address] [place] [address] Care Team Providers Care White Lead Filterer Name Role Phone Obey Osborn APRN Primary Care Provider [phone] Reason for Visit * Reason Comments New Patient Visit u/s first * Consult (Routine/Next Available) - Specialty Report Received Specialty Diagnoses / Procedures Referred By Contac t Referred To Contact Vascular Surgery Diagnoses Pain in both feet Bilateral leg pain Virgil Núñez [place] [address] [place] [address] [facility] Mp[facility] Surgery [address] [place] [address] Referral ID Status Reason Start Date Expiration Date Visits Requested Visits Authorized [id number] Specialty Report Received Specialty Services Required 08/29/2017 1 1 Encounter Details Date Type Department Care Team ([facility] Contact Info) Description 10/09/2017 15:00 EDT Office Visit [facility] Vascular Surgery - [address] 076381 Macho Fernandez MD [address] [facility], Level 5 [place] [phone] Pain in both lower extremities (Primary Dx) [...] Fernandez MD - 10/09/2017 0000 EDT [facility] VASCULAR SURGERY CONSULTATION - 10/09/2017 Obey Osborn NP [facility] [address] [place] [address], [address] [place] [address] Dear Obey: Thank you for consulting us [...] - Macho Fernandez MD cn Dictation ID: [id number] cc: Obey Osborn BANKER MASON, [address], [place] [address] documented in this encounter Plan of Treatment Upcoming Encounters Date Type Department Care Team (Late st Contact Info) Description 04/21/2024 15:00 EST Office Visit [facility] Neurology - S [place] [address] [place], [place] [address] Robby Abraham MD 1 [facility], Level 2 [place] [address] documented as of this encounter Visit Diagnoses Diagnosis Pain in both lower extremities- Primary documented in this encounter Care Teams White Lead Filterer Relationship Specialty Start Date End Date Obey Osborn APRN [address] [place], [place] [address] PCP - General 08/29/17 10/10/18 documented as of this encounter
--- OUTSIDE RECORDS SUMMARY | 2023-11-30 00:11 | XMS_ITS | Encounter Summary ---
Author Organization [facility] Address [address] [place] [address] Care Team Providers Care Sports Physical Therapist Name Role Phone Obey Osborn APRN Primary Care Provider [phone] Reason for Visit * Office Procedure (Routine) - Closed Specialty Diagnoses / Procedures [facility] Referred To Contact Neurology Diagnoses Neuropathy Procedures EMG/NERVE CONDUCTION STUDY Rboby Abraham MD [address] [place] [phone] [facility] Neurophys [address] [place] [address] Referral ID Status Reason Start Date Expiration Date Visits Re quested Visits Authorized [id number] Closed 01/14/2018 1 1 Encounter Details Date Type Department Care Team (Latest Contact Info) Description 02/27/2018 13:04 EST - 02/27/2018 23:59 EST Hospital Encounter [facility] Neurophysiology - [facility] [address] [place] [address] Robby Abraham MD [address] [place] [phone] Neuropathic pain Discharge Disposition: Auto Discharge [...] accuracy and appropriately updated today in the [employer] database. Review of Systems: A full 10 [...] the referring physician MD Robby Dorantes M.D. Pawn Broker of Neurology ABPN Board Certified, Neurology ABEM Board Certified, EMG documented in this encounter Plan of Treatment Upcoming Encounters Date Type Department Care Team (Late st Contact Info) Description 04/21/2024 15:00 EST Office Visit [facility] Neurology - S [address] 8318[address] Robby Abraham MD [address] [place] [address], Level 2 [place] [phone] documented as of this encounter Procedures Procedure Name Priority Date/Time Associated Diagnosis Comments ELECTROMYOGRAM - SCANNED 03/04/2018 7:59 EST documented in this encounter Results * ELECTROMYOGRAM - SCANNED (03/04/2018 7:59 EST) 03/04/2018 7:59 EST Scan 2 Senior Sql Server Developer PROCEDURE/MINOR MAIRA GICAL ORDERABLES documented in this encounter Visit Diagnoses Diagnosis Neuropathic pain Neuralgia, neuritis, and radiculitis, unspecified documented in this encounter Care Teams Sports Physical Therapist Relationship Specialty Start Date End Date Obey Osborn APRN [address] [place] [address] [address] [place] [address] PCP - General 08/29/17 10/10/18 documented as of this encounter
--- OUTSIDE RECORDS SUMMARY | 2023-11-30 00:11 | XMS_ITS | Encounter Summary ---
Author Organization [facility] Address [address] [place] [address] Care Team Providers Care Health Services Information Specialist Name Role Phone Obey Osborn APRN Primary Care Provider [phone] Encounter Details Date Type Department Care Team (Late Contact Info) Description 01/14/2018 Phlebotomy Only [address] [address] Client Service Consultant, Outpatient Neuropathy (Primary Dx) Social History Tobacco [...] Info) Description 04/21/2024 15:00 EST Office Visit [facility] Neurology - S [place] 1 [place], [place] [address] Robby Abraham MD [address] [place] [address], Level 2 [place] [address] documented as of this encounter Procedures Procedure Name Priority Date/Time Associated Diagnosis Comments SPEP WITH IMMUNOTYPING Routine 01/14/2018 14:18 EDT Neuropathy HEMOGLOBIN A1C Routine 01/14/2018 14:18 EDT Neuropathy documented in this encounter Results * HEMOGLOBIN A1C (01/14/2018 14:18 EDT) Hemoglobin A1C 5.7 % 01/15/2018 9:48 EDT [facility] Comment: Reference Range: <5.7% Normal 5.7-6.4% Prediabetes =>6.5% Diagnostic for diabetes (if confirmed) Goals for glycemic control in diabetes ADA 2017 For non adults with diabetes: ?? Target <7.0% For children and adolescents with type 1 diabetes: ?? Target <7.5% More or less stringent targets may be appropriate for individual patients. Est Avg Glucose 117 mg/dl 8 9:48 EDT [facility] Comment: eAG represents the A1c result expressed as average glucose in mg/dl. Blood specimen (specimen) BLOOD SPECIMEN / Unknown 01/14/2018 14:18 EDT 01/14/2018 15:26 EDT Robby Abraham MD CHEMISTRY & BLOOD GA S ORDERABLES [facility] [address] [place] [address] * SPEP WITH IMMUNOTYPING (01/14/2018 14:18 EDT) Total Protein 7.2 6.3 - 8.2 g/dl 01/14/2018 16:03 EDT [facility] Albumin % 62.4 55.8 - 66.1 % 01/15/2018 13:12 EDT [facility] Alpha-1 % 3.8 2.9 - 4.9 % 01/15/2018 13:12 T [facility] Alpha-2 % 10.3 7.1 - 11.8 % 01/15/2018 13:12 EDT [facility] Beta % 11.4 8.4 - 13.1 % 01/15/2018 13:12 EDT [facility] Gamma % 12.1 11.1 - 18.8 % 01/15/2018 13:12 T [facility] Comments 01/15/2018 13:12 T [facility] Comment: No apparent monoclonal protein on serum electrophoresis. See Pathology Scanned Report in PRISM. Immunotyping, Serum 01/15/2018 14:24 EDT [facility] Comment: Interpretation: Negative for monoclonal immunoglobulins. Interpreted by: ??Antonio Sorensen MD ON 01/15/2018 1424 Reference Range: Negative for monoclonal immunoglobulins. Blood specimen (specimen) BLOOD SPECIMEN / Unknown 01/14/2018 14:18 EDT 01/14/2018 15:26 EDT Robby Abraham MD CHEMISTRY & BLOOD GA S ORDERABLES [facility] [address] [place] [address] documented in this encounter Visit Diagnoses Diagnosis Neuropathy- Primary Mononeuritis of unspecified site documented in this encounter Care Teams Health Services Information Specialist Relationship Specialty Start Date End Date Obey Osborn APRN [address] [place] [address] [address] [place] [address] PCP - General 08/29/17 10/10/18 documented as of this encounter
--- OUTSIDE RECORDS SUMMARY | 2023-11-30 00:11 | XMS_ITS | Encounter Summary ---
Author Organization [facility] Address [address] [place] [address] Care Team Providers Care Salesperson Surgical Appliances Name Role Phone Jennifer Sr MD Primary Care Provider [phone] Encounter Details Date Type Department Care Team ([facility] st Contact Info) Description 12/05/2018 Documentation Visit [facility] Neurophysiology - Main [address] 0964[address] Robby Abraham MD [address] [place] [address], Level 2 [place] [address] Social History Tobacco Use Types [...] 04/21/2024 15:00 EST Office Visit [facility] Neurology - S [address] 9534[address] Robby Abraham MD [address] [place] [address], Level 2 [place] [phone] documented as of this encounter Visit Diagnoses Not on filedocumented in this encounter Care Teams Salesperson Surgical Appliances Relationship Specialty Start Date End Date Jennifer Sr MD [address], [address] [address] PCP - General 12/03/18 08/29/22 documented as of this encounter
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
--- OUTSIDE RECORDS SUMMARY | 2023-11-30 00:11 | XMS_ITS | Encounter Summary ---
Author Organization [facility] Address [address] [place] [address] Care Team Providers Care President Name Role Phone Obey Osborn APRN Primary Care Provider [phone] None, Provider Primary Care Provider Jennifer Rushing MD Primary Care Provider [phone] Reason for Visit * Reason Onset Date Comments Appointment Related 11/19/2017 Encounter Details Date Type Department Care Team ([facility] Contact Info) Description 11/19/[address] [facility] Foot & Ankle Program - [address] [address] Talha Oates DPM [address] [place] [address] Appointment Related Social History Tobacco [...] encounter Miscellaneous Notes * Telephone Encounter - Delta Vazquezin - 11/19/2017 0729 EDT PAS Message: Appointment scheduled for 2:30 pm this afternoon SundayNovember [address]ates. Just calling to confirm that she WILL be at her appointment today, She was asked to call back and confirm. documented in this encounter Plan of Treatment Upcoming Encounters Date Type Department Care Team (Late st Contact Info) Description 04/21/2024 15:[address] [facility] Neurology - S [address] [address] Robby Abraham MD [address] [place] [address], Level 2 [place] [phone] documented as of this encounter Visit Diagnoses Not on filedocumented in this encounter Care Teams President Relationship Specialty Start Date End Date Obey Osborn APRN [address] [place] [address] [phone] PCP - General 08/29/17 10/10/18 None, Provider PCP - General 10/11/18 12/02/18 [place] [address] [place] [address] [address] PCP - General 12/03/18 08/29/22 documented as of this encounter
--- OUTSIDE RECORDS SUMMARY | 2023-11-30 00:12 | XMS_ITS | Encounter Summary ---
Author Organization [facility] Address [address] [place] [address] Care Team Providers Care Envelope Adjuster Name Role Phone Suleiman Zambrano PA-C Primary Care Provider + Reason for Referral * Radiology Services (Routine/Next Available) - Closed Specialty Diagnoses / Procedures Referred By Mayda jalloh Referred To Contact Diagnoses Low back pain Procedures L SPINE 4 OR MORE VIEWS Nick Gomez PA-C [address] [place] [phone] Referral ID Status Reason Start Date Expiration Date Visits Re quested Visits Authorized [id number] Closed 04/12/2012 1 1 Reason for Visit * Reason Comments Back Pain Encounter Details Date Type Department Care Team ([facility] st Contact Info) Description 04/12/2012 10:00 EST Office Visit [facility] Spine Program - [address] [place] [address] Nick Gomez PA-C [address] [place] [phone] Low back pain (Primary Dx); Lumbar [...] Info) Description 04/21/2024 15:00 EST Office Visit [facility] Neurology - S [place] [address] [place] [address] Robby Abraham MD [address] [place], [place] [address], Level 2 [place] [phone] documented as of this encounter Procedures Procedure [...] ??Apr 12, 2012 10:43:00 AM Clinical History/Comments: 724.8-Bmxkhil-MII-9-CM; low back pain Comparisons: None. Findings: 4 [...] Apr 12, 2012 10:43:00 AM Clinical History/Comments: 724.5-Zrnhjkp-SET-9-CM; low back pain Comparisons: None. Findings: 4 [...] L1-L2. Vertebral body heights are preserved. Nick Gomez PA-C [facility] NG ORDERABLES documented in this [...] 10/23/2016 added in this encounter Care Teams Envelope Adjuster Relationship Specialty Start Date End Date Suleiman Zambrano PA-C [address] [place] [address] PCP - General 04/05/12 10/22/16 documented as of this encounter
--- OUTSIDE RECORDS SUMMARY | 2023-11-30 00:12 | XMS_ITS | Encounter Summary ---
Author Organization [facility] Address [address] [place] [address] Care Team Providers Care Regional Facilities Specialist Name Role Phone None, Provider Primary Care Provider Unavailabl e Reason for Referral * Radiology Services (Routine) - Closed Specialty Diagnoses / Procedures Referred By Contac t Referred To Contact Diagnoses Pain in thoracic spine Procedures THORACIC SPINE 2-3 VIEWS Carl Flood Chi, MD [address] [place] [phone] Referral ID Status Reason Start Date Expiration Date Visits Re quested Visits Authorized [id number] Closed 10/23/2016 1 1 * Radiology Services (Routine) - Closed Specialty Diagnoses / Procedures Referred By Contac t Referred To Contact Diagnoses Lumbar spine pain Procedures L SPINE 2-3 VIEWS Carl Flood Chi, MD [address] [place] [phone] Referral ID Status Reason Start Date Expiration Date Visits Re quested Visits Authorized [id number] Closed 10/23/2016 1 1 Reason for Visit * Reason Comments New Patient Visit Patient is being see n at the request of Ida Erickson at [facility] for evaluation of arthritis, lyme disease, +ADRIANA. Encounter Details Date Type Department Care Team ([facility] st Contact Info) Description 10/23/2016 13:25 EDT Office Visit [facility] Rheumatology & Immunology - [address] [address] Carl Flood Chi, MD [address] [place] [address], [address] [place] [address] Positive ADRIANA (antinuclear antibody) (Primary [...] at the request of Ida Erickson at [facility] for evaluation of arthritis, lyme disease, +ADRIANA. [...] issues in 2011 when she was in [place]- this resolved over several months. Had tick bite in 2009. Saw doctors in [place] and [place] with negative w/u . Ultimately dx with liver damage and pneumonia in [place]. Her was in [place]. Took antibiotics for pneumonia and liver issue resolved. Has had chronic foot numbness since 2011. Current therapy is not helping. Has had red discolorationon the face since July. Has had nerve conduction studies to the lower extremities in [place], [place] and [facility] - all negative. Skin bx was negative. Saw [employer] in [place], [place]- where she was found to have [...] foot drop?) and headaches. Negative for seizures. [place] palsy x 2014- with left numbness; then [...] ALMA ROSA SSA ANTIBODIES BY ALMA ROSA MEDICATION SPECIALIST ANTIBODIES BY ALMA ROSA THYROID ANTIBODIES 2. [...] Info) Description 04/21/2024 15:00 EST Office Visit [facility] Neurology - [place] [address] [place] [address] Robby Abraham MD [address] [place] [address], [address] [place] [address] documented as of this encounter Procedures Procedure Name Priority Date/Time Associated Diagnosis Comments THORACIC SPINE 2-3 VIEWS Routine 10/23/2016 15:18 EDT Pain in thoracic spine L SPINE 2-3 VIEWS Routine 10/23/2016 15: 18 EDT Lumbar spine pain documented in this encounter Results * THYROID ANTIBODIES (10/23/2016 15:34 EDT) Thyroglobulin Ab 16 <61 U/mL 10/25/19 17 9:24 EDT [facility] Thyroperoxidase Ab <28 <61 U/mL 2016 10:18 EDT [facility] Blood specimen (specimen) BLOOD SPECIMEN / Unknown 10/23/2016 15:34 EDT 10/23/2016 15:47 EDT Carl Flood MD CHEMISTRY & BLOOD GA S ORDERABLES [facility] [address] [place] [address] * FOLATE (10/23/2016 15:34 EDT) Folate 14.9 ng/ml 10/24/2016 13:01 EDT [facility] Comment: Deficient: ??Less than 3.4 ng/mL Indeterminate: ??3.4-5.4 ng/mL Normal: ??Greater than 5.4 ng/mL Blood specimen (specimen) BLOOD SPECIMEN / Unknown 10/23/2016 15:34 EDT 10/23/2016 15:47 EDT Narrative Authorizing Provider Result Charly Flood MD CHEMISTRY & BLOOD GA S ORDERABLES Performing Organization Address [facility] de Phone Number [facility] [address] [place] [address] * MEDICATION SPECIALIST ANTIBODIES BY ALMA ROSA (10/23/2016 15:34 EDT) MEDICATION SPECIALIST Antibody 1.9 <20 Units 10/24/2016 12:54 EDT [facility] Comment: Negative: <20 Units Weak Positive: 20 - 39 Units Moderate Positive: 40 - 80 Units Strong Positive: >80 Units Results were obtained with the [employer] QUANTA Lite MEDICATION SPECIALIST ALMA ROSA. MEDICATION SPECIALIST Values obtained with different manufacturers' assay methods may not be used interchangeably. The magnitude of the reported IgG levels cannot be correlated to an endpoint titer. A positive result in the QUANTA Lite MEDICATION SPECIALIST ALMA ROSA indicates the presence of antibodies reactive with the MEDICATION SPECIALIST/Sm complex but cannot distinguish between anti-Sm and anti-MEDICATION SPECIALIST activity. Blood specimen (specimen) BLOOD SPECIMEN / Unknown 10/23/2016 15:34 EDT 10/23/2016 15:47 EDT Narrative Authorizing Provider Result Charly Flood MD IMMUNOLOGY AND SEROL OGY ORDERABLES Performing Organization Address [facility] de Phone Number [facility] [address] [place] [address] * SSA ANTIBODIES BY ALMA ROSA (10/23/2016 15:34 EDT) SSA Antibody 1.5 <20 Units 10/24/2016 12:53 EDT [facility] Comment: Negative: <20 Units Weak [...] AND SEROL OGY ORDERABLES Performing Organization Address [facility] de Phone Number [facility] [address] [place] [address] * SSB ANTIBODIES BY ALMA ROSA (10/23/2016 15:34 EDT) SSB Antibody 2.6 <20 Units 10/24/2016 12:53 EDT [facility] Comment: Negative: <20 Units Weak Positive: 20 - 39 Units Moderate Positive: 40 - 80 Units Strong Positive: >80 Units Results were obtained with the DLS QUANTA SS-B ALMA ROSA. SS-B values obtained with different manufacturers' assay methods may not be used interchangeably. The magnitude of the reported IgG levels cannot be correlated to an endpoint titer. Blood specimen (specimen) BLOOD SPECIMEN / Unknown 10/23/2016 15:34 EDT 10/23/2016 15:47 EDT Carl Flood MD IMMUNOLOGY AND SEROL OGY ORDERABLES Performing Organization Address [facility] de Phone Number [facility] [address] [place] [address] * (ABNORMAL) COMPREHENSIVE METABOLIC PANEL (CMP) (10/23/2016 15:34 EDT) Potassium 4.2 3.5 - 5.0 mEq/L 10/23/2016 16:30 EDT [facility] Sodium 141 136 - 145 mEq/L 10/23/2016 16:30 EDT [facility] Chloride 106 96 - 110 mEq/L 10/23/2016 16:30 EDT [facility] CO2 20(L) 22 - 32 mEq/L 10/23/2016 16:30 EDT [facility] Total Alkaline Phosphatase 70 38 - 126 U/L 10/23/2016 16:30 EDT [facility] Bilirubin, Total <0.5 <1.4 mg/dl 10/24/19 17 16:30 EDT [facility] AST 19 15 - 46 U/L 10/23/2016 16:30 [facility] ALT 21 <53 U/L 10/23/2016 16:30 [facility] Albumin 4.4 3.4 - 4.9 g/dl 10/23/2016 16:30 [facility] Total Protein 7.0 6.3 - 8.2 g/dl 10/23/2016 16:30 [facility] Creatinine 0.63 0.52 - 1.04 mg/dl 10/23/2016 16:30 [facility] GFR, Calculated 103 >60 ml/min/1.7 3m2 10/23/2016 16:30 [facility] Comment: eGFR calculated using CKD-EPI equation for non Americans. Multiply eGFR by 1.16 for Americans. BUN 10 10 - 26 mg/dl 10/23/2016 16:30 [facility] Calcium 9.7 8.5 - 10.5 mg/dl 10/23/2016 16:30 [facility] Calculated Calcium 9.4 8.5 - 10.5 mg/dl 10/23/2016 16:30 [facility] Glucose, Serum 97 70 - 100 mg/dl 10/23/2016 16:30 [facility] Fasting? No 10/23/2016 15:33 [facility] Blood specimen (specimen) BLOOD SPECIMEN / Unknown 10/23/2016 15:34 EDT 10/23/2016 15:47 EDT Carl Flood MD CHEMISTRY & BLOOD GA S ORDERABLES [facility] [address] [place] [address] * (ABNORMAL) HEMAGRAM AND DIFFERENTIAL (10/23/2016 15:34 EDT) WBC 8.86 4.0 - 12.4 K/cmm 10/23/2016 16:01 [facility] RBC 4.50 3.86 - 5.04 M/cmm 10/23/2016 16:01 [facility] Hemoglobin 14.5 11.6 - 15.2 gm/dl 10/23/2016 16:01 [facility] HCT 41.2 34.9 - 44.4 % 10/23/2016 16:01 [facility] MCV 92 81 - 98 fl 10/23/2016 16:01 [facility] MCH 32.2 26.7 - 33.3 pg 10/23/2016 16:01 [facility] MCHC 35.2 32.1 - 35.9 gm/dl 10/23/2016 16:01 [facility] RDW-CV 11.9 <14.7 % 10/23/2016 16:01 [facility] RDW-SD 40.0 <50.4 fl 10/23/2016 16:01 [facility] PLT 320 141 - 377 K/cmm 10/23/2016 16:01 [facility] MPV 8.9(L) 9.5 - 12.7 fl 10/23/2016 16:01 [facility] % Neutrophils 49.8 % 10/23/2016 16:01 [facility] % Lymphocytes 39.7 % 10/23/2016 16:01 [facility] % Monocytes 6.2 % 10/23/2016 16:01 [facility] % Eosinophils 3.3 % 10/23/2016 16:01 [facility] % Basophils 0.7 % 10/23/2016 16:01 [facility] % Immature Grans 0.3 % 10/23/2016 16:01 [facility] ABS Neutrophils 4.41 2.20 - 8.85 K/cmm 10/23/2016 16:01 [facility] ABS Lymphs 3.52(H) 1.09 - 3.30 K/cmm 10/23/2016 16:01 [facility] ABS Monocytes 0.55 0.1 - 0.8 K/cmm 10/23/2016 16:01 [facility] ABS Eosinophils 0.29 0.03 - 0.61 K/cmm 10/23/2016 16:01 EDT [facility] ABS Basophils 0.06 0.01 - 0.11 K/formerly [facility] 10/23/2016 16:01 EDT [facility] ABS Immature Grans 0.03 0 - 0.06 /formerly [facility] 10/23/2016 16:01 EDT [facility] Type of Diff: Automated 10/23/2016 16:01 EDT [facility] Blood specimen (specimen) BLOOD SPECIMEN / Unknown 10/23/2016 15:34 EDT 10/23/2016 15:47 EDT Narrative Authorizing Provider Result Charly Flood MD PACKAGES & DNA PROBE ORDERABLES Performing Organization Address [facility] Co de Phone Number [facility] [address] [place] [address] * LYME AB (10/23/2016 15:34 EDT) Lyme AB Negative 10/24/2016 13:24 EDT [facility] Comment:Reference Range: Neg ative Blood specimen (specimen) BLOOD SPECIMEN / Unknown 10/23/2016 15:34 EDT 10/23/2016 15:47 EDT Narrative Authorizing Provider Result Charly Flood MD IMMUNOLOGY AND SEROL OGY ORDERABLES Performing Organization Address [facility] Co de Phone Number [facility] [address] [place] [address] * (ABNORMAL) C4 COMPLEMENT (10/23/2016 15:34 EDT) C4 Complement 40(H) 16 - 38 mg/dl 10/24/2016 10:34 EDT [facility] Blood specimen (specimen) BLOOD SPECIMEN / Unknown 10/23/2016 15:34 EDT 10/23/2016 15:47 EDT Narrative Authorizing Provider Result Charly Flood MD CHEMISTRY & BLOOD GA S ORDERABLES Performing Organization Address [facility]/ZIP Co de Phone Number [facility] [address] [place] [address] * (ABNORMAL) ARTHRITIS 1 (10/23/2016 15:34 EDT) Rheumatoid Factor <20 <20 IU/ml 017 10:34 EDT [facility] ADRIANA Interpretation Positive(A) Negative 10/24/2016 15:04 EDT [facility] Comment: Results were obtained with the DLS NOVA Lite HEp-2 ADRIANA kit by indirect immunofluorescence. ADRIANA Titer Pattern 1:320 Speckled 10/24/2016 12:46 EDT [facility] Blood specimen (specimen) BLOOD SPECIMEN / Unknown 10/23/2016 15:34 EDT 10/23/2016 15:47 EDT Carl Flood MD IMMUNOLOGY AND SEROL OGY ORDERABLES Performing Organization Address [facility] de Phone Number [facility] [address] [place] [address] * SM (AGEE) ANTIBODY (10/23/2016 15:34 EDT) Pathologist [facility] Sm (Agee) Antibody 0.9 <20 Units 10/24/2016 12:53 EDT [facility] Comment: Negative: <20 Units Weak Positive: 20 - 39 Units Moderate Positive: 40 - 80 Units Strong Positive: >80 Units Results were obtained with the DLS QUANTA Lite Sm ALMA ROSA. Sm values obtained with different manufacturers' assay methods may not be used interchangeably. The magnitude of the reported IgG levels cannot be correlated to an endpoint titer. Blood specimen (specimen) BLOOD SPECIMEN / Unknown 10/23/2016 15:34 EDT 10/23/2016 15:47 EDT Carl Flood MD IMMUNOLOGY AND SEROL OGY ORDERABLES Performing Organization Address [facility] de Phone Number [facility] [address] [place] [address] * ANTI DNA (DOUBLE STRAND) (10/23/2016 15:34 EDT) Pathologist [facility] Anti DNA (DS) <12.3 <30 IU/mL 10/24/2016 13:58 EDT [facility] Comment:Results were obtaine d with the PsonarVA QUANTA Lite dsDNA SC ALMA ROSA assay. Blood specimen (specimen) BLOOD SPECIMEN / Unknown 10/23/2016 15:34 EDT 10/23/2016 15:47 EDT Carl Flood MD IMMUNOLOGY AND SEROL OGY ORDERABLES [facility] [address] [place] [address] * THORACIC SPINE 2-3 VIEWS (10/23/2016 15:18 EDT) Anatomical Region Laterality Modality Other 10/23/2016 15:1 8 EDT 10/24/2016 17:55 EDT Narrative 10/24/2016 17:55 EDT THORACIC SPINE 2-3 VIEWS ??10/23/2016 3:18 PM Clinical History/Comments: M54.6-Pain in thoracic [id number]; chronic pain- suspect DDD. Comparison: None available. [...] 3:18 PM Clinical History/Comments: M54.6-Pain in thoracic [id number]; chronic pain- suspect DDD. Comparison: None available. [...] 09/08/2022 added in this encounter Care Teams Regional Facilities Specialist Relationship Specialty Start Date End Date None, Provider PCP - General 10/23/16 12/05/16 documented as of this encounter
--- OUTSIDE RECORDS SUMMARY | 2023-11-30 00:12 | XMS_ITS | Encounter Summary ---
Author Organization [facility] Address [address] [place] [address] Care Team Providers Care Technical Aide Name Role Phone Suleiman Zambrano PA-C Primary Care Provider + Reason for Visit * Reason Comments Back Pain Encounter Details Date Type Department Care Team (Late Contact Info) Description 04/12/2012 Telephone [facility] Total Joint Program [place] [address] Nick Gomez PA-C [address] [place] [address] [place] [address] Back Pain Social History Tobacco [...] Info) Description 04/21/2024 15:00 EST Office Visit [facility] Neurology - [address] [place] [address] [place] [address] Robby Abraham MD [address] [place] [address], Level [address] [place] [phone] documented as of this encounter Visit Diagnoses Not on filedocumented in this encounter Care Teams Technical Aide Relationship Specialty Start Date End Date Suleiman Zambrano PA-C [address] [place] [address] PCP - General 04/05/12 10/22/16 documented as of this encounter
--- OUTSIDE RECORDS SUMMARY | 2023-11-30 00:12 | XMS_ITS | Encounter Summary ---
Author Organization [facility] Address [address] [place] [address] Care Team Providers Care Movie Theater Manager Name Role Phone Suleiman Zambrano PA-C Primary Care Provider + Reason for Visit * Reason Comments Back Pain Encounter Details Date Type Department Care Team ([facility] st Contact Info) Description 04/30/2012 11:30 EST Office Visit [facility] Spine Program - [address] [place] [address] Nick Gomez PA-C [address] [place] [address] [place] [address] Low back pain (Primary Dx) [...] Description 04/21/2024 15:00 EST Office Visit [facility] Neurology - [place] [address] [place] [address] Robby Abraham MD [address] [place] [address], [address] [place] [phone] documented as of this encounter Visit Diagnoses Diagnosis Low back pain- Primary Lumbago documented in this encounter Care Teams Movie Theater Manager Relationship Specialty Start Date End Date Suleiman Zambrano PA-C [address] [place] [address] PCP - General 04/05/12 10/22/16 documented as of this encounter
--- OUTSIDE RECORDS SUMMARY | 2023-11-30 00:12 | XMS_ITS | Encounter Summary ---
Author Organization [facility] Address [address] [place] [address] Care Team Providers Care Floor Specialist Name Role Phone Ca Leggett MD Primary Care Provider Unavailable Encounter Details Date Type Department Care Team (Late Contact Info) Description 11/06/2002 Results Only [facility] [address] [place], [place] [phone] Aime Haider MD Social History Tobacco Use [...] Description 04/21/2024 15:00 EST Office Visit [facility] Neurology - [address] [place] [address] [place] [phone] Robby Abraham MD [address] [place] [address], [address] [place] [phone] documented as of this encounter Procedures Procedure [...] ? AYDEE MEJIA ? Accession #: ? [id number] : ? 1965 (Age: 37) ??F ?Collect [...] Date: ??11/13/2002 07:24 End of Report [facility] 11/06/2002 11/10/2002 Aime Haider MD PATHOLOGY ORDERABLES [facility] [address] [place] [address] documented in this encounter Visit Diagnoses Not on filedocumented in this encounter Care Teams Floor Specialist Relationship Specialty Start Date End Date Ca Leggett MD PCP - General 09/07/08 12/04/10 documented as of this encounter
--- OUTSIDE RECORDS SUMMARY | 2023-11-30 00:12 | XMS_ITS | Encounter Summary ---
Author Organization [facility] Address [address] [place] [address] Care Team Providers Care Catering Sales Manager Name Role Phone None, Provider Primary Care Provider Unavailabl e Encounter Details Date Type Department Care Team (Late st Contact Info) Description 10/23/2016 Phlebotomy Only [facility] - [facility] [address] [place] [address] Solution Design Engineer, Outpatient Positive ADRIANA (antinuclear antibody); Paresthesia of [...] Info) Description 04/21/2024 15:00 EST Office Visit [facility] Neurology - [address] [place] [address] [place] [address] [phone] Robby bAraham MD [address] [place] [address], [address] [place] [address] documented as of this encounter [...] 10/23/2016 15:34 EDT Positive ADRIANA (antinuclear antibody) DIRECTOR OF CARDIOLOGY ANTIBODY, IGG Routine 10/23/2016 15: 34 EDT [...] 16 <61 U/mL 10/25/19 17 9:24 EDT [facility] Thyroperoxidase Ab <28 <61 U/mL 2016 10:18 EDT [facility] Blood specimen (specimen) BLOOD SPECIMEN / Unknown 10/23/2016 15:34 EDT 10/23/2016 15:47 EDT Carl Flood MD CHEMISTRY & BLOOD GA S ORDERABLES Performing Organization Address [facility] de Phone Number [facility] [address] [place] [address] * FOLATE (10/23/2016 15:34 EDT) Folate 14.9 ng/ml 10/24/2016 13:01 EDT [facility] Comment: Deficient: ??Less than 3.4 ng/mL Indeterminate: ??3.4-5.4 ng/mL Normal: ??Greater than 5.4 ng/mL Blood specimen (specimen) BLOOD SPECIMEN / Unknown 10/23/2016 15:34 EDT 10/23/2016 15:47 EDT Carl Flood MD CHEMISTRY & BLOOD GA S ORDERABLES Performing Organization Address [facility] de Phone Number [facility] [address] [place] [address] * DIRECTOR OF CARDIOLOGY ANTIBODIES BY ALMA ROSA (10/23/2016 15:34 EDT) DIRECTOR OF CARDIOLOGY Antibody 1.9 <20 Units 10/24/2016 12:54 EDT [facility] Comment: Negative: <20 Units Weak Positive: 20 - 39 Units Moderate Positive: 40 - 80 Units Strong Positive: >80 Units Results were obtained with the [employer] QUANTA Lite DIRECTOR OF CARDIOLOGY ALMA ROSA. DIRECTOR OF CARDIOLOGY Values obtained with different manufacturers' assay methods may not be used interchangeably. The magnitude of the reported IgG levels cannot be correlated to an endpoint titer. A positive result in the QUANTA Lite DIRECTOR OF CARDIOLOGY ALMA ROSA indicates the presence of antibodies reactive with the DIRECTOR OF CARDIOLOGY/Sm complex but cannot distinguish between anti-Sm and anti-DIRECTOR OF CARDIOLOGY activity. Blood specimen (specimen) BLOOD SPECIMEN / Unknown 10/23/2016 15:34 EDT 10/23/2016 15:47 EDT Carl Flood MD IMMUNOLOGY AND SEROL OGY ORDERABLES Performing Organization Address [facility] Co de Phone Number [facility] [address] [place] [address] * SSA ANTIBODIES BY ALMA ROSA (10/23/2016 15:34 EDT) SSA Antibody 1.5 <20 Units 10/24/2016 12:53 EDT [facility] Comment: Negative: <20 Units [...] AND SEROL OGY ORDERABLES Performing Organization Address [facility] Co de Phone Number [facility] [address] [place] [address] * SSB ANTIBODIES BY ALMA ROSA (10/23/2016 15:34 EDT) SSB Antibody 2.6 <20 Units 10/24/2016 12:53 EDT [facility] Comment: Negative: <20 Units [...] AND SEROL OGY ORDERABLES Performing Organization Address [facility] Co de Phone Number [facility] [address] [place] [address] * (ABNORMAL) COMPREHENSIVE METABOLIC PANEL (CMP) (10/23/2016 15:34 EDT) Potassium 4.2 3.5 - 5.0 mEq/L 10/23/2016 16:30 [facility] Sodium 141 136 - 145 mEq/L 10/23/2016 16:30 [facility] Chloride 106 96 - 110 mEq/L 10/23/2016 16:30 [facility] CO2 20(L) 22 - 32 mEq/L 10/23/2016 16:30 [facility] Total Alkaline Phosphatase 70 38 - 126 U/L 10/23/2016 16:30 [facility] Bilirubin, Total <0.5 <1.4 mg/dl 10/24/19 17 16:30 [facility] AST 19 15 - 46 U/L 10/23/2016 16:30 [facility] ALT 21 <53 U/L 10/23/2016 16:30 [facility] Albumin 4.4 3.4 - 4.9 g/dl 10/23/2016 16:30 [facility] Total Protein 7.0 6.3 - 8.2 g/dl 10/23/2016 16:30 [facility] Creatinine 0.63 0.52 - 1.04 mg/dl 10/23/2016 16:30 [facility] GFR, Calculated 103 >60 ml/min/1.7 3m2 10/23/2016 16:30 [facility] Comment: eGFR calculated using CKD-EPI equation for non Americans. Multiply eGFR by 1.16 for Americans. BUN 10 10 - 26 mg/dl 10/23/2016 16:30 [facility] Calcium 9.7 8.5 - 10.5 mg/dl 10/23/2016 16:30 [facility] Calculated Calcium 9.4 8.5 - 10.5 mg/dl 10/23/2016 16:30 [facility] Glucose, Serum 97 70 - 100 mg/dl 10/23/2016 16:30 [facility] Fasting? No 10/23/2016 15:33 [facility] Blood specimen (specimen) BLOOD SPECIMEN / Unknown 10/23/2016 15:34 EDT 10/23/2016 15:47 EDT Carl Flood MD CHEMISTRY & BLOOD GA S ORDERABLES [facility] [address] [place] [address] * (ABNORMAL) HEMAGRAM AND DIFFERENTIAL (10/23/2016 15:34 EDT) WBC 8.86 4.0 - 12.4 K/cmm 10/23/2016 16:01 [facility] RBC 4.50 3.86 - 5.04 M/cmm 10/23/2016 16:01 [facility] Hemoglobin 14.5 11.6 - 15.2 gm/dl 10/23/2016 16:01 [facility] HCT 41.2 34.9 - 44.4 % 10/23/2016 16:01 [facility] MCV 92 81 - 98 fl 10/23/2016 16:01 [facility] MCH 32.2 26.7 - 33.3 pg 10/23/2016 16:01 [facility] MCHC 35.2 32.1 - 35.9 gm/dl 10/23/2016 16:01 [facility] RDW-CV 11.9 <14.7 % 10/23/2016 16:01 [facility] RDW-SD 40.0 <50.4 fl 10/23/2016 16:01 [facility] PLT 320 141 - 377 K/cmm 10/23/2016 16:01 [facility] MPV 8.9(L) 9.5 - 12.7 fl 10/23/2016 16:01 [facility] % Neutrophils 49.8 % 10/23/2016 16:01 [facility] % Lymphocytes 39.7 % 10/23/2016 16:01 [facility] % Monocytes 6.2 % 10/23/2016 16:01 [facility] % Eosinophils 3.3 % 10/23/2016 16:01 [facility] % Basophils 0.7 % 10/23/2016 16:01 [facility] % Immature Grans 0.3 % 10/23/2016 16:01 [facility] ABS Neutrophils 4.41 2.20 - 8.85 K/cmm 10/23/2016 16:01 [facility] ABS Lymphs 3.52(H) 1.09 - 3.30 K/cm 10/23/2016 16:01 [facility] ABS Monocytes 0.55 0.1 - 0.8 K/cm 10/23/2016 16:01 [facility] ABS Eosinophils 0.29 0.03 - 0.61 K/cmm 10/23/2016 16:01 [facility] ABS Basophils 0.06 0.01 - 0.11 K/cmm 10/23/2016 16:01 [facility] ABS Immature Grans 0.03 0 - 0.06 K/cmm 10/23/2016 16:01 [facility] Type of Diff: Automated 10/23/2016 16:01 [facility] Blood specimen (specimen) BLOOD SPECIMEN / Unknown 10/23/2016 15:34 EDT 10/23/2016 15:47 EDT Carl Flood MD PACKAGES & DNA PROBE ORDERABLES [facility] [address] [place] [address] * LYME AB (10/23/2016 15:34 EDT) Lyme AB Negative 10/24/2016 13:24 T [facility] Comment:Reference Range: Neg ative Blood specimen (specimen) BLOOD SPECIMEN / Unknown 10/23/2016 15:34 EDT 10/23/2016 15:47 EDT Carl Singhu MD IMMUNOLOGY AND SEROL OGY ORDERABLES Performing Organization Address [facility] Co de Phone Number [facility] [address] [place] [address] * (ABNORMAL) C4 COMPLEMENT (10/23/2016 15:34 EDT) C4 Complement 40(H) 16 - 38 mg/dl 10/24/2016 10:34 EDT [facility] Blood specimen (specimen) BLOOD SPECIMEN / Unknown 10/23/2016 15:34 EDT 10/23/2016 15:47 EDT Narrative Authorizing Provider Result Charly Flood MD CHEMISTRY & BLOOD GA S ORDERABLES Performing Organization Address [facility] de Phone Number [facility] [address] [place] [address] * (ABNORMAL) ARTHRITIS 1 (10/23/2016 15:34 EDT) Pathologist [facility] Rheumatoid Factor <20 <20 IU/ml 017 10:34 EDT [facility] ADRIANA Interpretation Positive(A) Negative 10/24/2016 15:04 EDT [facility] Comment: Results were obtained with the INOVA NOVA Lite HEp-2 ADRIANA kit by indirect immunofluorescence. ADRIANA Titer Pattern 1:320 Speckled 10/24/2016 12:46 EDT [facility] Blood specimen (specimen) BLOOD SPECIMEN / Unknown 10/23/2016 15:34 EDT 10/23/2016 15:47 EDT Narrative Authorizing Provider Result Charly Flood MD IMMUNOLOGY AND SEROL OGY ORDERABLES Performing Organization Address [facility] Co de Phone Number [facility] [address] [place] [address] * SM (AGEE) ANTIBODY (10/23/2016 15:34 EDT) Sm (Agee) Antibody 0.9 <20 Units 10/24/2016 12:53 EDT [facility] Comment: Negative: <20 Units [...] AND SEROL OGArtemio ORDERABLES Performing Organization Address [facility] Co de Phone Number [facility] [address] [place] [address] * ANTI DNA (DOUBLE STRAND) (10/23/2016 15:34 EDT) Anti DNA (DS) <12.3 <30 IU/mL 10/24/2016 13:58 EDT [facility] Comment:Results were obtaine d with the INOVA QUANTA Lite dsDNA SC ALMA ROSA assay. Blood specimen (specimen) BLOOD SPECIMEN / Unknown 10/23/2016 15:34 EDT 10/23/2016 15:47 EDT Carl Flood MD IMMUNOLOGY AND SEROL OGArtemio ORDERABLES Performing Organization Address [facility] Co de Phone Number [facility] [address] [place] [address] documented in this encounter Visit Diagnoses Diagnosis Positive ADRIANA (antinuclear antibody) Other and unspecified nonspecific immunological findings Paresthesia of both feet documented in this encounter Care Teams Catering Sales Manager Relationship Specialty Start Date End Date None, Provider PCP - General 10/23/16 12/05/16 documented as of this encounter
--- OUTSIDE RECORDS SUMMARY | 2023-11-30 00:12 | XMS_ITS | Encounter Summary ---
Author Organization [facility] Address [address] [place] [address] Care Team Providers Care Molded Grid And Parts Inspector Name Role Phone Porsha Louise ND Primary Care Provider Malina matamoros Encounter Details Date Type Department Care Team ([facility] Contact Info) Description 03/15/2017 10:54 EST - 03/15/2017 23:59 EST Hospital Encounter [facility] - [address] [place] [address] Carl Flood Chi, MD [address] [facility], [address] [place] [phone] Discharge Disposition: Auto Discharge Social History Tobacco [...] Info) Description 04/21/2024 15:00 EST Office Visit [facility] Neurology - S [address] [phone] Robby Abraham MD [address] [place] [address], [address] 2 [place] [phone] documented as of this encounter Visit Diagnoses Not on filedocumented in this encounter Care Teams Molded Grid And Parts Inspector Relationship Specialty Start Date End [place] [address] PCP - General 02/06/17 08/28/17 documented as of this encounter
--- OUTSIDE RECORDS SUMMARY | 2023-11-30 00:12 | XMS_ITS | Encounter Summary ---
Author Organization [facility] Address [address] [place] [address] Care Team Providers Care Machine Marker Name Role Phone Unavailable Primary Care Provider Unavailabl e Encounter Details Date Type Department Care Team (Latest Contact Info) Description 03/08/1999 22:00 EST Hospital Encounter [facility] - Other [address] [place] [address] Virgilio Israel MD Unknown, ProviderMD Discharge Disposition: Auto Discharge Social History Tobacco [...] 04/21/2024 15:00 EST Office Visit [facility] Neurology - [address] [place] [address] [place] [address] Robby Abraham MD [address] [place] [address] [address] [place] [address] documented as of this encounter Procedures Procedure [...] & PF4 ORD ERABLES Performing Organization Address [facility] de Phone Number [facility] [address] [place] [address] * PROTIME (03/08/1999 15:00 EST) Pro Time 12.0 11.7 - 13.4 secs [facility] I.N.R. 0.9 0.8 - 1.2 Ratio [facility] Comment: Moderate Intensity Coumadin INR = 2.0-3.0 Adjustments in anticoagulant therapy dose should be based upon the INR and NOT the Pro Time 03/08/1999 15:0 0 EST 03/08/1999 17:59 EST Virgilio Israel MD HEMATOLOGY & PF4 ORD ERABLES Performing Organization Address [facility] de Phone Number [facility] [address] [place] [address] * LIVER FUNCTION TESTS (03/08/1999 15:00 EST) Albumin 3.9 3.0 - 5.5 g/dl [facility] Total Alkaline Phosphatase 64 38 - 126 U/L [facility] ALT 24 15 - 75 U/L [facility] AST 17 8 - 50 U/L [facility] Unconjugated Bilirubin 0.1 0.1 - 1.1 mg/dl [facility] Conjugated Bilirubin 0.0 0.0 - 0.3 mg/dl [facility] Bilirubin, Total 0.5 0.2 - 1.3 mg/dl [facility] 03/08/1999 15:0 0 EST 03/08/1999 17:59 EST Virgilio Israel MD CHEMISTRY & BLOOD GA S ORDERABLES Performing Organization Address [facility] de Phone Number [facility] [address] [place] [address] * LIPASE (03/08/1999 15:00 EST) Pathologist [facility] Lipase 115 0 - 210 U/L [facility] 03/08/1999 15:0 0 EST 03/08/1999 17:59 EST Virgilio Israel MD CHEMISTRY & BLOOD GA S ORDERABLES Performing Organization Address [facility] de Phone Number [facility] [address] [place] [address] * GGT (03/08/1999 15:00 EST) Pathologist [facility] GGT 41 12 - 43 U/L [facility] 03/08/1999 15:0 0 EST 03/08/1999 17:59 EST Virgilio Israel MD CHEMISTRY & BLOOD GA S ORDERABLES Performing Organization Address [facility] Co de Phone Number [facility] [address] [place] [address] * (ABNORMAL) HEMAGRAM (03/08/1999 15:00 EST) WBC 8.42 4.0 - 12.4 K/cmm [facility] RBC 4.28 3.86 - 5.04 M/cmm [facility] Hemoglobin 13.9 11.6 - 15.2 gm/dl [facility] HCT 40.4 34.9 - 44.4 % [facility] MCV 94 81 - 98 fl [facility] MCH 32.6 26.7 - 33.3 pg [facility] MCHC 34.5 32.1 - 35.9 gm/dl [facility] PLT 333(H) 141 - 320 K/cmm [facility] RDW-CV 11.8 11.7 - 14.6 % [facility] 03/08/1999 15:0 0 EST 03/08/1999 17:59 EST Virgilio Israel MD HEMATOLOGY & PF4 ORD ERABLES [facility] [address] [place] [address] * AMYLASE (03/08/1999 15:00 EST) Amylase 52 30 - 110 U/L [facility] 03/08/1999 15:0 0 EST 03/08/1999 17:59 EST Virgilio Israel MD CHEMISTRY & BLOOD GA S ORDERABLES [facility] [address] [place] [address] documented in this encounter Visit Diagnoses Not on filedocumented in this encounter
--- OUTSIDE RECORDS SUMMARY | 2023-11-30 00:12 | XMS_ITS | Encounter Summary ---
Author Organization [facility] Address [address] [place] [address] Care Team Providers Care Lathe Spotter Name Role Phone Odalys Hanley MD Primary Care Provider [phone] Porsha Louise ND Primary Care Provider Malina matamoros Reason for Visit * Reason Onset Date Comments Appointment Related 12/06/2016 Office is as truman for copy of note from 10/23/16 visit to be faxed. Encounter Details Date Type Department Care Team ([facility] Contact Info) Description 12/06/2016 Telephone [facility] Rheumatology & Immunology - [address] [address] Carl Flood Chi, MD [address] [place] [address], [address] [place] [address] Appointment Related (Office is asking [...] fax notes from 10/23/16 visit to [facility] PCP office. Cassandra [place] 12/06/2016 11:29 documented in this encounter Plan of Treatment Upcoming Encounters Date Type Department Care Team (Late st Contact Info) Description 04/21/2024 15:00 EST Office Visit [facility] Neurology - S [place] [address] [place] [phone] Robby Abraham MD [address] [place] [address], [address] [place] [phone] documented as of this encounter Visit Diagnoses Not on filedocumented in this encounter Care Teams Lathe Spotter Relationship Specialty Start Date End Date Odalys Hanley MD PCP - General 12/06/16 02/05/17 Porsha Louise ND [facility] [place] [address] PCP - General 02/06/17 08/28/17 documented as of this encounter
--- OUTSIDE RECORDS SUMMARY | 2023-11-30 00:12 | XMS_ITS | Encounter Summary ---
Author Organization [facility] Address [address] [place] [address] Care Team Providers Care Senior Hr Generalist Name Role Phone Porsha Louise ND Primary Care Provider Malina matamoros Reason for Referral * Consult (Routine) - Specialty Report Received Specialty Diagnoses / Procedures Referred By Mayda jalloh Referred To Contact Pain Medicine Diagnoses Chronic bilateral low back pain without sciatica Nick Gomez PA-C [address] [place] [address] [place] [address] [facility] [address] [place] [address] Referral ID Status Reason Start Date Expiration Date Visits Requested Visits Authorized [id number] Specialty Report Received Specialty Services Required 7 [...] Details Date Type Department Care Team ([facility] Contact Info) Description 03/20/2017 Telephone [facility] Spine Program - [place] [facility] [place] [address] Nick Gomez PA-C [address] [facility] [place] [address] Appointment Related Social History Tobacco [...] 04/21/2024 15:00 EST Office Visit [facility] Neurology - S [address] [phone] Robby Abraham MD [address] [address], [address] [place] [address] Scheduled Referrals Name Type Priority Associated Diagnoses Order Schedule AMB CONS/FOLLOW UP PAIN INTERVENTIONAL Outpatient Referral Routine Chronic bilateral low back pain without sciatica Ordered: 03/20/2017 documented as of this encounter Visit Diagnoses Diagnosis Chronic bilateral low back pain without sciatica- Primary documented in this encounter Care Teams Senior Hr Generalist Relationship Specialty Start Date [place] [address] PCP - General 02/06/17 08/28/17 documented as of this encounter
--- OUTSIDE RECORDS SUMMARY | 2023-11-30 00:12 | XMS_ITS | Encounter Summary ---
Author Organization [facility] Address [address] [place] [address] Care Team Providers Care Operations Research Manager Name Role Phone Ca Leggett MD Primary Care Provider Unavailable Encounter Details Date Type Department Care Team ([facility] Contact Info) Description 12/01/2010 Results Only [facility] - [facility] ([facility]) [address] [place], [place] [address] Claude Marti MD [address] [place] [address],[address] [place] [address] Social History Tobacco Use Types Packs/Day Years Used Date Smoking Tobacco: Never Assessed Sex and Gender Information Value Date Recorded Sex Assigned at Not on file Gender Identity Female 05/16/2019 9:18 EST Sexual Orientation Not on file documented as of this encounter Plan of Treatment Upcoming Encounters Date Type Department Care Team ([facility] Contact Info) Description 04/21/2024 15:00 EST Office Visit [facility] Neurology - [address] [place] [address] [place] [phone] Robby Abraham MD [address] [place] [address], [address] [place] [phone] documented as of this encounter Procedures Procedure [...] ? MEJIA, AYDEE ? Accession #: ? [id number] ? : ? 1965 (Age: 45) ??F ? Collect Date: ? 12/01/2010 ? Location: ? [facility] ? Receive Date: ? 12/02/2010 ? Provider: GAILYN B PHIL MD ? Copy to: PEDRITO BERRIAN MD ? Final Pathologic Diagnosis: ? Endometrium, curettage: ? 1. ?Proliferative endometrium with focal disordered proliferation ? pattern. ? 2. ? No cytologic atypia identified. ? 3. ? Fragments of benign endocervical tissue with squamous metaplasia. ? Document reviewed and electronically signed by: ? KARELY MOUNT MD ? Report ??Date: 12/05/2010 14:02 ? [...] submitted as (A1) and (A2). ??(L. ? N[facility])/[facility] ? End of Report ? [facility] 12/01/2010 12/02/2010 8:5 9 EDT Claude Marti MD PATHOLOGY ORDERABLES [facility] [address] [place] [address] documented in this encounter Visit Diagnoses Not on filedocumented in this encounter Care Teams Operations Research Manager Relationship Specialty Start Date End Date Ca Leggett MD PCP - General 09/07/08 12/04/10 documented as of this encounter
--- OUTSIDE RECORDS SUMMARY | 2023-11-30 00:12 | XMS_ITS | Encounter Summary ---
Author Organization [facility] Address [address] [place] [address] Care Team Providers Care Oil Driller Name Role Phone Unavailable Primary Care Provider Unavailabl e Encounter Details Date Type Department Care Team (Late Contact Info) Description 09/03/2008 Orders Only [facility] Laboratory Services - [facility] ([facility]) [address] [place] [address] Jayson Ortiz MD [address] [place] [address] Social History Tobacco Use Types Packs/Day Years [...] [facility] - S [address] [address] Robby Abraham MD [address] [place] [address] [address] 2 [place] [phone] documented as of this encounter Procedures Procedure [...] ? MEJIA, AYDEE ? Accession #: ? [id number] ? : ? 1965 (Age: 43) ??F ? Collect Date: ? 09/03/2008 ? Location: ? [facility] ? Receive Date: ? 09/04/2008 ? Provider: JAYSON KAREN MD ? Copy to: REE A SEFERINO MD ? Final Pathologic Diagnosis: ? Appendix, appendectomy: ? - Acute appendicitis and periappendicitis. ? Document reviewed and electronically signed by: ? Salvador Hogue MD ? Report ??Date: 09/07/2008 15:46 ? By the signature above, the attending physician certifies that he/she has ? personally conducted a gross and/or microscopic examination of the described ? specimens and rendered or confirmed the above diagnosis. ? Specimen(s) Received: ? Appendix ? Clinical History: ? Appendicitis ? Gross Description: ? Received in formalin labelled Aydee Mejia and appendix is a 9.0 cm in [...] MONTEZ 09/03/2008 09/04/2008 9:3 2 EDT Jayson Ortiz MD PATHOLOGY ORDERABLE S [facility] [address] [place] [address] documented in this encounter Visit Diagnoses Not on filedocumented in this encounter
--- OUTSIDE RECORDS SUMMARY | 2023-11-30 00:12 | XMS_ITS | Encounter Summary ---
Author Organization [facility] Address [address] [place] [address] Care Team Providers Care Trim Machine Operator Name Role Phone Porsha Louise ND Primary Care Provider Malina matamoros Reason for Visit * Reason Onset Date Comments Update 05/25/2017 Encounter Details Date Type Department Care Team ([facility] st Contact Info) Description 05/25/2017 Telephone [facility] Spine Program - [address] [place] [address] Nick Gomez PA-C [facility] [employer] [facility] [place] [address] Update Social History Tobacco Use [...] - 05/25/2017 1602 EST Patient is in [place] and went to a new doctor for her back symptoms, she received additional information she would like to share with us, see if Jason has anything to put towards the additional information. She is scheduled for an injection in July that she will most likely keep at this point, she is not moving to [place] till January so she would like to [...] 04/21/2024 15:00 EST Office Visit [facility] Neurology - S [address] [phone] Robby Abraham MD [address] [place] [address], Level 2 [place] [phone] documented as of this encounter Visit Diagnoses Not on filedocumented in this encounter Care Teams Trim Machine Operator Relationship Specialty Start Date [place] [address] PCP - General 02/06/17 08/28/17 documented as of this encounter
--- OUTSIDE RECORDS SUMMARY | 2023-11-30 00:12 | XMS_ITS | Encounter Summary ---
Author Organization [facility] Address [address] [place] [address] Care Team Providers Care Vascular Specialists Name Role Phone Porsha Louise ND Primary Care Provider Malina matamoros Reason for Visit * Reason Comments Back Pain Leg Pain b/l Foot Pain b/l up to knee Headache * Consult (Routine) - Specialty Report Received Specialty Diagnoses / Procedures Referred By [facility] t Referred To Contact Pain Medicine Diagnoses Chronic bilateral low back pain without sciatica Nick oGmez PA-C [address] [facility] [place] [address] [facility] [address] [facility] [place] [address] Referral ID Status Reason Start Date Expiration Date Visits Requested Visits Authorized [id number] Specialty Report Received Specialty Services Required 7 1 1 Encounter Details Date Type Department Care Team (Latest Contact Info) Description 07/12/2017 10:45 EDT Office Visit [facility] Interventional Pain [address] [facility] [place] [address] Cristóbal Smith MD [address] [facility] [address] [place] [address] Ann-Marie Escalera MD [address] [place], [place] [id number] Facet arthropathy (HCC-CMS) (Primary Dx); Pain in both feet; Myofascial [...] was initially told that she had Guillain Baldwin but this was later refuted), and Orthopedics. [...] on disability. Used to work in a [employer]. Would like to go back to work. Smokes 1/2 pack a day. Does not want to quit as she is afraid of weight gain. Says she has gained 50 lbs in the last few months. Lives with her 36 year old in a small apartment. Does not have a PCP, does have a [employer] but isan expensive option for her. How [...] Hyperreflexic patellar reflexes. Assessment: 1. Facet arthropathy ([facility]-CMS) 2. Pain in both feet [...] Description 04/21/2024 15:00 EST Office Visit [facility] Neurology - S [address] [address] Robby Abraham MD [address] [place] [address], Level 2 [place] [phone] documented as of this encounter Visit Diagnoses Diagnosis Facet arthropathy- Primary Spondylosis of unspecified site without mention of myelopathy Pain in both feet Pain in limb Myofascial pain Mylagia and myositis, unspecified Numbness of foot Disturbance of skin sensation Chronic intractable headache, unspecified headache type documented in this encounter Care Teams Vascular Specialists Relationship Specialty Start Date [place] [address] PCP - General 02/06/17 08/28/17 documented as of this encounter
--- OUTSIDE RECORDS SUMMARY | 2023-11-30 00:12 | XMS_ITS | Encounter Summary ---
Author Organization [facility] Address [address] [place] [address] Care Team Providers Care Gallery Or Museum Guide Name Role Phone Unavailable Primary Care Provider Unavailabl e Encounter Details Date Type Department Care Team (Latest Contact Info) Description 04/21/1999 10:57 EST - 04/21/1999 11:59 EST Hospital Encounter [facility] [address] [place] [address] Virgilio Israel MD Discharge Disposition: Auto Discharge [...] Description 04/21/2024 15:00 EST Office Visit [facility] Neurology - S [address] [address] Robby Abraham MD [address] [place] [address] Level 2 [place] [phone] documented as of this encounter Procedures Procedure [...] ? AYDEE MEJIA ? Accession #: ? [id number] ? : [...] is consistent with chronic esophagitis. ? (Dr. White)/jsm Document reviewed and electronically signed by: Conversion [...] entirely submitted as (A). ? Received in Hollande's fixative labelled [place] and esophagus ? are three, thomas-gan, irregular, 0.2 x 0.2 x 0.2 cm, soft tissue ? fragments. ??The specimen is entirely submitted as (B). ??(M. ? Vipin)/jaja ? End of Report [facility] 04/21/1999 13:5 1 EST 04/21/1999 13:52 EST Virgilio Israel MD PATHOLOGY ORDERABLES [facility] [address] [place] [address] documented in this encounter Visit Diagnoses Not on filedocumented in this encounter
--- OUTSIDE RECORDS SUMMARY | 2023-11-30 00:12 | XMS_ITS | Encounter Summary ---
Author Organization [facility] Address [address] [place] [address] Care Team Providers Care Managed Care Manager Name Role Phone Suleiman Zambrano PA-C Primary Care Provider + None, Provider Primary Care Provider Odalys Barrera MD Primary Care Provider [phone] Porsha Louise ND Primary Care Provider Malina matamoros Reason for Visit * Reason Onset Date Comments Coordination Of Care 09/18/2016 RTC/ Medica l referral Follow-up 09/18/2016 Encounter Details Date Type Department Care Team (Late st Contact Info) Description 09/18/2016 Telephone [facility] Rheumatology & Immunology - [address] [phone] Carl Flood Chi, MD [address] [place] [address], Level 5 [place] [phone] Coordination Of Care (RTC/ Medical referral ); [...] Telephone Encounter - Jazlyn Zamora - 09/19/2016 7906 EDT Reason for Call: Coordination Of Care (RTC/ Medical referral ) and Follow-up Summary/Symptoms: Per patient, RCT office is closed for the day. Wanted to let Daysi know. Jazlyn Zamora 09/19/2016 15:56 * Telephone Encounter - Daysi Wahl RN - 09/19/2016 1548 EDT Unable to locate the form from [facility] ([employer]). Spoke with patient, she will ask them to fax to triage [phone]. We need to fax to Medicaid for decision if transportation is medically necessary. [facility] ph# [phone]. * Telephone Encounter - Jasmeet Langley - [...] Info) Description 04/21/2024 15:00 EST Office Visit [facility] Neurology - S [address] [address] Robby Abraham MD [address] [place] [address], Level 2 [place] [phone] documented as of this encounter Visit Diagnoses Not on filedocumented in this encounter Care Teams Managed Care Manager Relationship Specialty Start Date End Date Suleiman Zambrano PA-C [address] [place] [phone] PCP - General 04/05/12 10/22/16 None, Provider PCP - General 10/23/16 12/05/16 Odalys Hanley MD PCP - General 12/06/16 02/05/17 Porsha Louise ND [address] [place], [place] [address] [address] PCP - General 02/06/17 08/28/17 documented as of this encounter
--- OUTSIDE RECORDS SUMMARY | 2023-11-30 00:12 | XMS_ITS | Encounter Summary ---
Author Organization [facility] Address [address] [place] [address] Care Team Providers Care Clerical Specialist Name Role Phone Unavailable Primary Care Provider Unavailabl e Encounter Details Date Type Department Care Team (Late st Contact Info) Description 09/23/1999 20:30 EDT Hospital Encounter [facility] - Other [address] [place] [address] Maury Agarwal MD [address] [phone] Unknown, Provider, Social History Tobacco Use Types [...] Description 04/21/2024 15:00 EST Office Visit [facility] Neurology - S [place] [address] [place], [place] [address] Robby Abraham MD [address] [place] [address], Level 2 [place] [phone] documented as of this encounter Procedures Procedure [...] [facility] Comment: Desirable:<200 Borderline:200-239 High Risk:>kj=701 Triglycerides 264(H) 35 - 160 mg/dl [facility] HDL 46 mg/dl [facility] Comment: Highly Desirable:>60 Desirable:35-60 High Risk:<35 LDL, Calculated 140 mg/dl [facility] Comment: Desirable:<130 Borderline:130-159 High Risk:>hr=938 Chol/HDL Ratio 5.2 [facility] 09/23/1999 10:2 5 EDT 09/23/1999 19:52 EDT Maury Agarwal MD CHEMISTRY & BLOOD GA S ORDERABLES [facility] [address] [place] [address] * COMPREHENSIVE METABOLIC PANEL (09/23/1999 10:25 EDT) Potassium 3.9 3.5 - 5.0 mEq/L [facility] Sodium 142 136 - 145 mEq/L [facility] Chloride 104 96 - 110 mEq/L [facility] CO2 24 24 - 30 mEq/L [facility] Total Alkaline Phosphatase 70 38 - 126 U/L [facility] Bilirubin, Total 0.4 0.2 - 1.3 mg/dl [facility] AST 16 8 - 50 U/L [facility] ALT 16 15 - 75 U/L [facility] Albumin 3.8 3.0 - 5.5 g/dl [facility] Total Protein 7.2 6.0 - 8.5 g/dl [facility] Creatinine 0.7 0.7 - 1.5 mg/dl [facility] BUN 12 10 - 26 mg/dl [facility] Calcium 9.0 8.5 - 10.5 mg/dl [facility] Calculated Calcium 9.6 8.5 - 10.5 mg/dl [facility] Glucose, Serum 92 70 - 110 mg/dl [facility] Albumin/Globulin Ratio 1.1 [facility] 09/23/1999 10:2 5 EDT 09/23/1999 19:52 EDT Maury Agarwal MD CHEMISTRY & BLOOD GA S ORDERABLES [facility] [address] [place] [address] * CYTOPATHOLOGY (09/23/1999 0:00 EDT) Pathology Report: CYTOPATHOLOGY REPORT Reports generated via electronic interface contain original data; however they are lacking the format of the original report. Caution should be taken when reading/interpreti ng unformatted reports. Name: ? MEJIA AYDEE ? Accession #: ? [id number] : ? 1965 (Age: 34) ??F ?Collect [...] 09/23/1999 09/27/1999 Maury Agarwal MD PATHOLOGY ORDERABLES [facility] [address] [place] [address] documented in this encounter Visit Diagnoses Not on filedocumented in this encounter
--- OUTSIDE RECORDS SUMMARY | 2023-11-30 00:12 | XMS_ITS | Encounter Summary ---
Author Organization [facility] Address [address] [place] [address] Care Team Providers Care Lens Hardener Name Role Phone Ca Leggett MD Primary Care Provider Unavailable Encounter Details Date Type Department Care Team (Late Contact Info) Description 03/07/2001 Results Only [facility] - Maple conversion [address] [place] [address] Dewayne Cunningham MD [address] [place] [phone] Social History Tobacco Use Types Packs/Day [...] 04/21/2024 15:00 EST Office Visit [facility] Neurology - S [place] [address] [place], [place] [address] Robby Abraham MD [address] [place] [address] Level 2 [place] [phone] documented as of this encounter Procedures Procedure [...] ? AYDEE MEJIA ? Accession #: ? [id number] : ? 1965 (Age: 36) ??F ?Collect Date: ? 03/07/2001 Location: ? [facility] ? Receive Date: ? 03/11/2001 Provider: ?DEWAYNE CUNNINGHAM MD Copy to: ? Specimen/Source: ?Conventional Pap Test, Vagina/Endocervix Last Menstrual Period: ? 22 days ago ? SPECIMEN ADEQUACY ? Satisfactory for evaluation. GENERAL CATEGORIZATION ? Within Normal Limits ? Document reviewed and electronically signed by: ? JOHN Canela(ASCP) ? Report Date: ??03/13/2001 09:01 End of Report [facility] 03/07/2001 03/11/2001 Dewayne Cunningham MD PATHOLOGY ORDERABLE S [facility] [address] [place] [address] documented in this encounter Visit Diagnoses Not on filedocumented in this encounter Care Teams Lens Hardener Relationship Specialty Start Date End Date Ca Leggett MD PCP - General 09/07/08 12/04/10 documented as of this encounter
--- OUTSIDE RECORDS SUMMARY | 2023-11-30 00:12 | XMS_ITS | Encounter Summary ---
Author Organization [facility] Address [address] [place] [address] Care Team Providers Care Velvet Steamer Name Role Phone Suleiman Zambrano PA-C Primary Care Provider + Encounter Details Date Type Department Care Team (Late Contact Info) Description 04/16/2012 Abstract [facility] Spine Program - [address] [address] Nick Gomez PA-C [address] [place] [address] [place] [address] Social History Tobacco Use Types [...] Info) Description 04/21/2024 15:00 EST Office Visit [facility] Neurology - S [address] [address] Robby Abraham MD [address] [place] [address], Level 2 [place] [address] documented as of this encounter Visit Diagnoses Not on filedocumented in this encounter Care Teams Velvet Steamer Relationship Specialty Start Date End Date Suleiman Zambrano PA-C [address] [place] [address] PCP - General 04/05/12 10/22/16 documented as of this encounter
--- OUTSIDE RECORDS SUMMARY | 2023-11-30 00:12 | XMS_ITS | Encounter Summary ---
Author Organization [facility] Address [address] [place] [address] Care Team Providers Care Crepe Sole Scourer Name Role Phone Ca Leggett MD Primary Care Provider Unavailable Encounter Details Date Type Department Care Team (Late Contact Info) Description 07/04/2004 Results Only [facility] - Maple conversion [address] [place] [address] Nuvia Velázquez MD [address] [place] [phone] Social History Tobacco Use Types Packs/Day Years Used Date Smoking Tobacco: Never Assessed Sex and Gender Information Value Date Recorded Sex Assigned at Not on file Gender Identity Female 05/16/2019 9:18 EST Sexual Orientation Not on file documented as of this encounter Plan of Treatment Upcoming Encounters Date Type Department Care Team ([facility] Contact Info) Description 04/21/2024 15:00 EST Office Visit [facility] Neurology - S [place] [address] [place], [place] [address] Robby Abraham MD [address] [place] [address] 2 [place] [phone] documented as of this encounter Procedures Procedure [...] ? AYDEE MEJIA ? Accession #: ? [id number] : ? 1965 (Age: 39) ??F ?Collect Date: ? 07/04/2004 Location: ? [facility] ? Receive Date: ? 07/06/2004 Provider: ?NUVIA VELÁZQUEZ MD Copy to: ? Srinath First ?[facility] ?[address] ?[place], [place] [address] ? Specimen/Source: ?ThinPrep Pap Test, Cervix Last [...] 07/06/2004 Nuvia Velázquez MD PATHOLOGY ORDERAB LES Performing Organization Address City/State/[facility] Co de Phone Number [facility] [address] [place] [address] documented in this encounter Visit Diagnoses Not on filedocumented in this encounter Care Teams Crepe Sole Scourer Relationship Specialty Start Date End Date Ca Leggett MD PCP - General 09/07/08 12/04/10 documented as of this encounter
--- OUTSIDE RECORDS SUMMARY | 2023-11-30 00:12 | XMS_ITS | Encounter Summary ---
Author Organization [facility] Address [address] [place] [address] Care Team Providers Care Tetryl Screen Operator Name Role Phone Odalys Hanley MD Primary Care Provider [phone] Encounter Details Date Type Department Care Team ([facility] Contact Info) Description 02/02/2017 Orders Only [facility] Spine Program - [address] [address] Nick Gomez PA-C [address] [place] [address] [place] [address] Low back pain, unspecified back [...] Upcoming Encounters Date Type Department Care Team ([facility] Contact Info) Description 04/21/2024 15:00 EST Office Visit [facility] Neurology - S [address] [address] Robby Abraham MD [address] [place] [address], Level 2 [place] [phone] documented as of this encounter Visit Diagnoses Diagnosis Low back pain, unspecified back pain laterality, unspecified chronicity, with sciatica presence unspecified- Primary documented in this encounter Care Teams Tetryl Screen Operator Relationship Specialty Start Date End Date Odalys Hanley MD PCP - General 12/06/16 02/05/17 documented as of this encounter
--- OUTSIDE RECORDS SUMMARY | 2023-11-30 00:12 | XMS_ITS | Encounter Summary ---
Author Organization [facility] Address [address] [place] [address] Care Team Providers Care House Wrecker Name Role Phone Suleiman Zambrano PA-C Primary Care Provider + Reason for Visit * Reason Onset Date Comments Appointment Related 09/14/201609/23 Encounter Details Date Type Department Care Team ([facility] Contact Info) Description 09/14/2016 Telephone [facility] Rheumatology & Immunology - [address] [phone] Carl Flood Chi, MD [address] [place] [address], Level 5 [place] [address] Appointment Related (09/23) Social History [...] Telephone Encounter - Hemal Gallegos - 09/14/2016 1626 EDT Reason for Call: Appointment Related (09/23) Summary/Symptoms: Patient needs Medicaid referral form to be sent to [facility], needs to also say she should be her by 1 pm. Fax is [phone]. They did received something from us but not what they needed.Call her to confirm Hemal Gallegos 09/14/2016 16:24 documented in this encounter Plan of Treatment Upcoming Encounters Date Type Department Care Team (Late st Contact Info) Description 04/21/2024 15:00 EST Office Visit [facility] Neurology - S [place] [address] [place], [place] [address] Robby Abraham MD [address] [place] [address], Level [address] [place] [phone] documented as of this encounter Visit Diagnoses Not on filedocumented in this encounter Care Teams House Wrecker Relationship Specialty Start Date End Date Suleiman Zambrano PA-C [address] [place] [address] PCP - General 04/05/12 10/22/16 documented as of this encounter
--- OUTSIDE RECORDS SUMMARY | 2023-11-30 00:12 | XMS_ITS | Encounter Summary ---
Author Organization [facility] Address [address] [place] [address] Care Team Providers Care Feed In Worker Name Role Phone Ca Leggett MD Primary Care Provider Unavailable Encounter Details Date Type Department Care Team (Late Contact Info) Description 08/03/2006 Results Only [facility] [address] [place] [address] Codie Wayne NP [address] [place] [address] [place], [place] [phone] Social History Tobacco Use Types Packs/Day Years [...] [facility] - S [address] [address] Robby Abraham MD [address] [place] [address] 2 [place] [phone] documented as of this encounter Procedures Procedure [...] ? AYDEE MEJIA ? Accession #: ? [id number] : ? 1965 (Age: 41) ??F ?Collect Date: ? 08/03/2006 Location: ? [facility] ? Receive Date: ? 08/06/2006 Provider: ?CODIE WAYNE NP Copy to: ? Srinath First ?[facility] ?[address] ?[place], [place] [address] ? Specimen/Source: ?ThinPrep Pap Test, Cervix/Endocervix, processed on [employer]IC ThinPrep Imaging System, with manual evaluation Last [...] NP PATHOLOGY ORDERABLE S Performing Organization Address City/State/[facility] Co de Phone Number [facility] [address] [place] [address] documented in this encounter Visit Diagnoses Not on filedocumented in this encounter Care Teams Feed In Worker Relationship Specialty Start Date End Date Ca Leggett MD PCP - General 09/07/08 12/04/10 documented as of this encounter
--- OUTSIDE RECORDS SUMMARY | 2023-11-30 00:12 | XMS_ITS | Encounter Summary ---
Author Organization [facility] Address [address] [place] [address] Care Team Providers Care Engineering Technical Writer Name Role Phone Ca Leggett MD Primary Care Provider Unavailable Encounter Details Date Type Department Care Team (Late Contact Info) Description 08/11/2005 Results Only [facility] [address] [place] [address] Codie Wayne NP [address] [place] [address] [place], [place] [phone] Social History Tobacco Use Types Packs/Day Years [...] Visit [facility] Neurology - S [address] [address] Robby Abraham MD [address] [place] [address] 2 [place] [phone] documented as of this encounter Procedures Procedure [...] ? AYDEE MEJIA ? Accession #: ? [id number] : ? 1965 (Age: 40) ??F ?Collect Date: ? 08/11/2005 Location: ? [facility] ? Receive Date: ? 08/14/2005 Provider: ?CODIE WAYNE PATHOLOGY LABORATORY AIDE Copy to: ? Specimen/Source: ?ThinPrep Pap Test, Vagina/Cervix, processed on [employer] ThinPrep Imaging System, with manual evaluation Last [...] NP PATHOLOGY ORDERABLE S [facility] [address] [place] [address] documented in this encounter Visit Diagnoses Not on filedocumented in this encounter Care Teams Engineering Technical Writer Relationship Specialty Start Date End Date Ca Leggett MD PCP - General 09/07/08 12/04/10 documented as of this encounter
--- OUTSIDE RECORDS SUMMARY | 2023-11-30 00:12 | XMS_ITS | Encounter Summary ---
Author Organization [facility] Address [address] [place] [address] Care Team Providers Care Pump Tester Name Role Phone Unavailable Primary Care Provider Unavailabl e Encounter Details Date Type Department Care Team (Late st Contact Info) Description 01/28/1999 23:17 EDT Hospital Encounter [facility] - Other [address] [place] [address] Ruth Agarwal MD [address] [phone] Unknown, Provider, Social History Tobacco Use Types [...] Office Visit [facility] Neurology - S [place] 1 [place], [place] [address] Robby Abraham MD [address] [place] [address], Level 2 [place] [phone] documented as of this encounter Visit Diagnoses Not on filedocumented in this encounter
--- OUTSIDE RECORDS SUMMARY | 2023-11-30 00:12 | XMS_ITS | Encounter Summary ---
Author Organization [facility] Address [address] [place] [address] Care Team Providers Care Gang Punch Operator Name Role Phone Porsha Louise ND Primary Care Provider Malina matamoros Reason for Referral * Radiology Services (Routine) - Closed Specialty Diagnoses / Procedures Referred By Contac t Referred To Contact Diagnoses Chronic bilateral low back pain, with sciatica presence unspecified Pain in both lower extremities Procedures MR LUMBAR SPINE WO CONTRAST Nick Gomez PA-C [address] [place] [address] Referral ID Status Reason Start Date Expiration Date Visits Re quested Visits Authorized [id number] Closed 02/06/2017 1 1 * PT/OT/ST (Routine) - Closed Specialty Diagnoses / Procedures Referred By Contac t Referred To Contact Diagnoses Chronic bilateral low back pain, with sciatica presence unspecified Nick Gomez PA-C [address] [place] [address] Referral ID Status Reason Start Date Expiration Date V isits Requested Visits Authorized [id number] Closed Specialty Services Required 02/06/2017 1 1 Question Answer Reason for Request: aquatic therapy with endurance training and core stabilization Reason for Visit * Reason Comments Back Pain mid back pain * Consult, Test and Treat (Routine) - Closed Specialty Diagnoses / Procedures Referred By Contac t Referred To Contact Orthopedic Surgery Diagnoses Back pain Porsha Louise ND [address] [place] [address] [facility] [address] [place] [address] Referral ID Status Reason Start Date Expiration Date Visits Re quested Visits Authorized [id number] Closed 1 1 Encounter Details Date Type Department Care Team (Late st Contact Info) Description 02/06/2017 14:45 EDT Office Visit [facility] Spine Program - [facility] [address] [place] [address] Nick Gomez PA-C [address] [facility] [place] [address] Chronic bilateral low back pain, [...] exacerbated by sitting, standing, walking, physical therapy, director medicare sales, sneezing, bending forward and driving, though she [...] at the patella, 0 at the achilles [id number] is NR there is no clonus SLR right: neg Left: neg Hips have FROM without pain Neurologic Exam Mental Status Oriented to person, place, and time. Cranial Nerves CN III, IV, Extraocular motions are normal. The prior workup of the patient includes: Lumbar films obtained in October of this year reveal 5 deq-eel-ogfwcek lumbar vertebrae, no scoliosis. Lateral view reveals [...] Info) Description 04/21/2024 15:00 EST Office Visit [facility] Neurology - [address] [address] Robby Abraham MD [address] [place] [address], Level 2 [place] [phone] Scheduled Referrals Name Type Priority Associated Diagnoses [...] no significance. These appear unchanged. Procedure Note Mike Laurent MD - 03/15/2017 MR LUMBAR SPINE WO [...] significance. These appear unchanged. Nick Gomez PA-C IMG MRI ORDERABLES documented in this encounter Visit Diagnoses Diagnosis Chronic bilateral low back pain, with sciatica presence unspecified- Primary Pain in both lower extremities documented in this encounter Care Teams Gang Punch Operator Relationship Specialty Start Date End Date Porsha Louise ND [address] [place] [address] PCP - General 02/06/17 08/28/17 documented as of this encounter
--- OUTSIDE RECORDS SUMMARY | 2023-11-30 00:12 | XMS_ITS | Encounter Summary ---
Author Organization [facility] Address [address] [place] [address] Care Team Providers Care Advanced Manufacturing Technician Name Role Phone Suleiman Zambrano PA-C Primary Care Provider + Reason for Visit * Reason Onset Date Comments Discuss Possible Transfer 08/07/2016 RCT [phone] Update 08/07/2016 RCT paperwork se nt wrong office Encounter Details Date Type Department Care Team ([facility] Contact Info) Description 08/07/2016 Telephone [facility] Rheumatology & Immunology - [address] [phone] Carl Flood Chi, MD [address] [facility], Level 5 [place] [address] Discuss Possible Transfer (RCT [phone]); Update (RCT paperwork sent wrong office) Social [...] RN - 08/09/2016 0957 EDT Re-faxed to [place]. * Telephone Encounter - Jasmeet Langley - 08/09/2016 0840 EDT Darya called from [facility] regarding the form for transportation for Aydee and it was sent to the wrong office. Patient gave me the wrong fax. It needs to go to [facility]. Darya is faxingform back. I now have the correct fax for [facility] [phone] * Telephone Encounter - Jasmeet Langley - 08/07/2016 1318 EDT Patient is stating please call RTC @ [phone] as this is needed for her to [...] Info) Description 04/21/2024 15:00 EST Office Visit [facility] Neurology - [address] [place] [address] [place], [place] [address] Robby Abraham MD [address] [place] [address], Level 2 [place] [phone] documented as of this encounter Visit Diagnoses Not on filedocumented in this encounter Care Teams Advanced Manufacturing Technician Relationship Specialty Start Date End Date Suleiman Zambrano PA-C [address] [place] [address] PCP - General 04/05/12 10/22/16 documented as of this encounter
--- OUTSIDE RECORDS SUMMARY | 2023-11-30 00:12 | XMS_ITS | Encounter Summary ---
Author Organization [facility] Address [address] [place] [address] Care Team Providers Care Ductfixing Plumber Name Role Phone Suleiman Zambrano PA-C Primary Care Provider + Encounter Details Date Type Department Care Team (Late Contact Info) Description 04/30/2012 6:57 EST - 04/30/2012 23:59 EST Hospital Encounter [address] [place] [address] Nick Dimas MD [address] [place] [phone] Discharge Disposition: Home or Self Care Social [...] Code Departure Means Destination Home or Self Intermediate documented in this encounter Plan of Treatment Upcoming Encounters Date Type Department Care Team ([facility] Contact Info) Description 04/21/2024 15:00 EST Office Visit [facility] Neurology - [address] [place] [address] [place] [address] Robby Abraham MD [address] [facility], Level 2 [place] [address] documented as of this encounter Visit Diagnoses Not on filedocumented in this encounter Care Teams Ductfixing Plumber Relationship Specialty Start Date End Date Suleiman Zambrano PA-C [address] [place] [address] PCP - General 04/05/12 10/22/16 documented as of this encounter
--- OUTSIDE RECORDS SUMMARY | 2023-11-30 00:12 | XMS_ITS | Encounter Summary ---
Author Organization [facility] Address [address] [place] [address] Care Team Providers Care Anesthesiology Faculty Name Role Phone Ca Leggett MD Primary Care Provider Unavailable Encounter Details Date Type Department Care Team (Late Contact Info) Description 05/26/2010 Results Only [facility] Laboratory Services - [facility] ([facility] [address] [place] [address] Zoraida Ordoñez MD [address] [place], [place] [address] Social History Tobacco Use Types Packs/Day Years Used Date Smoking Tobacco: Never Assessed Sex and Gender Information Value Date Recorded Sex Assigned at Not on file Gender Identity Female 05/16/2019 9:18 EST Sexual Orientation Not on file documented as of this encounter Plan of Treatment Upcoming Encounters Date Type Department Care Team ([facility] Contact Info) Description 04/21/2024 15:00 EST Office Visit [facility] Neurology - [address] [address] Robby Abraham MD [address] [place] [address] [address] [place] [phone] documented as of this encounter Procedures Procedure [...] reading/interpreti ng unformatted reports. ? Name: ? AYDEE MEJIA ? Accession #: ? [id number] ? : ? 1965 (Age: 45) ??F [...] above diagnosis. ? End of Report ? [facility] 05/26/2010 05/30/2010 Zoraida Ordoñez MD PATHOLOGY ORDERABLES Performing Organization Address City/State/[facility] Co de Phone Number [facility] [address] [place] [address] documented in this encounter Visit Diagnoses Not on filedocumented in this encounter Care Teams Anesthesiology Faculty Relationship Specialty Start Date End Date Ca Leggett MD PCP - General 09/07/08 12/04/10 documented as of this encounter
--- OUTSIDE RECORDS SUMMARY | 2023-11-30 00:12 | XMS_ITS | Encounter Summary ---
Author Organization [facility] Address [address] [place] [address] Care Team Providers Care Supervisor Post Wave Name Role Phone Porsha Louise ND Primary Care Provider Malina matamoros Reason for Visit * Reason Onset Date Comments Discuss Test Results 03/23/2017 xray done a month ago Encounter Details Date Type Department Care Team ([facility] Contact Info) Description 03/23/2017 Telephone [facility] Rheumatology & Immunology - [address] [address] Carl Flood Chi, MD [address] [place] [address], [address] 5 [place] [address] Discuss Test Results (xray done [...] and letter to her physical Therapist at [facility] in [place], [place]. * Telephone Encounter - Tiffany Brewster [...] Info) Description 04/21/2024 15:00 EST Office Visit [facility] Neurology - [address] [address] Robby Abraham MD [address] [place] [address], Level 2 [place] [phone] documented as of this encounter Visit Diagnoses Not on filedocumented in this encounter Care Teams Supervisor Post Wave Relationship Specialty Start Date [place] [address] PCP - General 02/06/17 08/28/17 documented as of this encounter
--- OUTSIDE RECORDS SUMMARY | 2023-11-30 00:12 | XMS_ITS | Encounter Summary ---
Author Organization [facility] Address [address] [place] [address] Care Team Providers Care Sales And Merchandising Representative Name Role Phone Porsha Louise ND Primary Care Provider Malina matamoros Reason for Referral * Radiology Services (Routine) - Closed Specialty Diagnoses / Procedures Referred By Mayda jalloh Referred To Contact Diagnoses Thoracic spine pain Procedures MR THORACIC SPINE WO CONTRAST Carl Flood Chi, MD [address] [place] [phone] Referral ID Status Reason Start Date Expiration Date Visits Re quested Visits Authorized [id number] Closed 02/14/2017 1 1 Reason for Visit * Reason Onset Date Comments Back Problem 02/13/2017 Appointment Related 02/13/2017 Returning Call 02/13/2017 to nurse Encounter Details Date Type Department Care Team (Late st Contact Info) Description 02/13/2017 Telephone [facility] Cardiology - [place] [address] [place] [address] Carl Flood Chi, MD [address] [place] [phone] Back Problem; Appointment Related; Returning Call [...] EST Spoke with patient. She said the net application support specialist was only looking at her lower [...] so she is working with the [facility] but the provider isn't listening to heror her concerns. She would like to discuss Odalys Martinez 02/13/2017 11:25 documented in this encounter Plan of Treatment Upcoming Encounters Date Type Department Care Team (Late st Contact Info) Description 04/21/2024 15:00 EST Office Visit [facility] Neurology - [address] [place] [address] [place] [address] Robby Abraham MD [address] [place] [address] [place], Level [address] [place] [phone] documented as of this encounter Procedures Procedure [...] normal signal intensity throughout. Carl Flood MD IM MRI ORDERABLES documented in this encounter Visit Diagnoses Diagnosis Thoracic spine pain- Primary Pain in thoracic spine documented in this encounter Care Teams Sales And Merchandising Representative Relationship Specialty Start Date End Date Porsha Louise ND [facility] [address] PCP - General 02/06/17 08/28/17 documented as of this encounter
--- NOTE | 2023-11-30 07:45 | DI.MRI_ITS ---
Exam(s) MR LOWER JOINT RT WO EXAM: MR LOWER JOINT RT WO CLINICAL HISTORY: PAIN.mass of rt thigh,rt hip trochanteric bursitis,r22.41,m70.61 TECHNIQUE: Multiplanar multisequence MRI of Pelvis was performed COMPARISON: MR MR LOWER JOINT RT WO from 08/22/2021 CR XR HIP PELVIS ADULT BL from 08/09/2023 FINDINGS: Bones: There is no fracture or contusion pattern. No bone marrow edema is seen. Small enthesophytes at the greater trochanters. Joints: No significant joint effusion or gross labral defect is present. Bilateral acetabular spurri ng. The SI joints and symphysis pubis are well maintained. Musculotendinous structures: Minimal edema at the gluteus medius insertion. No significant fluid in the trochanteric bursa. Intrapelvic structures: 3 centimeter uterine fibroid. 15 x 11 millimeter cyst on the right ovary. N o follow-up recommended. IMPRESSION: Gluteus medius tendinitis. No significant fluid in the trochanteric bursa. No evidence of mass. DATA REPOSITORY:
== END 2023-11-30 00:25 ==
LOC: DI 00:05
PROVIDERS: PCP Nurse Practitioner Family; Visit Provider Student in an Organized Health Care Education/Training Program
DX: M70.61 Trochanteric bursitis, right hip
CPT/HCPCS: 73721

== ENCOUNTER 2024-01-04 14:42 | Emergency (ER) | payer OTHER, MEDICAID, SELFPAY ==
--- OUTSIDE RECORDS SUMMARY | 2024-01-04 14:46 | XMS_ITS | Encounter Summary ---
Author Organization [facility] [place] [address] Care Team Providers Care Supervisor Chassis Assembly Name Role Phone Glenys Hernandez APRN Primary Care Provider [phone] Encounter Details Date Type Department Care Team [...] Care Team (Late st Contact Info) Description 01/23/2024 2:00 PM EDT Office Visit [facility] [place] [phone] Kenneth Martin MD [facility] [place] [address] 02/19/2024 1:00 PM EST Office [place] [phone] Mike Ko MD [facility] [place] [address] documented as of this encounter Goals Goal [...] filedocumented in this encounter Care Teams Supervisor Chassis Assembly Relationship Specialty Start Date End Date Glenys Hernandez, JL [address] [place] [address] PCP - General Family Medicine 09/26/21 12/28/22 documented as of this encounter
--- OUTSIDE RECORDS SUMMARY | 2024-01-04 14:46 | XMS_ITS | Encounter Summary ---
[place] [address] Care Team Providers Care Paediatric Surgeon Name Role Phone Justin Juarez MD Primary Care Provider [phone] Reason for Referral * Consultation (Routine) - Closed Specialty Diagnoses / Procedures Referred By Contac t Referred To Contact [facility] Diagnoses Radiculopathy of lumbar region F/U lumbar radiculopathy/XR 06/15/23 in e-DH/? Left L5 TFESI FUV CARPENTER'S HELPER Osmar Leigh MD [facility] [place] [address] [facility] [place] [address] Referral ID Status Reason Start Date Expiration Date V isits Requested Visits Authorized [id number] Closed Consult, Test & Treat 07/02/2023 07/01/2024 1 1 Reason for Visit * Reason Comments Back Pain * Consultation (Routine) - Closed Specialty Diagnoses / Procedures Referred By Contac t Referred To Contact [facility] Diagnoses Radicular pain of left lower extremity Minnie Muñoz, JL [facility] [place] [address] [facility] [place] [address] Referral ID Status Reason Start Date Expiration Date V isits Requested Visits Authorized [id number] Closed Consult, Test & Treat 06/01/2023 05/31/2024 1 1 Encounter Details Date Type Department Care Team (Latest Contact Info) Description 07/02/2023 1:20 PM EDT Office Visit [place] [address] Osmar Leigh MD [facility] [place] [address] Radiculopathy of lumbar region Social History Tobacco [...] Office Visit [place] [address] Kenneth Martin MD [facility] [place] [address] 02/19/2024 1:00 PM EST Office [place] [phone] Mike Ko MD [facility] [place] [address] Scheduled Referrals Name Type Priority Associated Diagnoses [...] unspecified documented in this encounter Care Teams Paediatric Surgeon Relationship Specialty Start Date End Date Justin Juarez MD PCP - General Family Medicine 12/29/22 documented as of this encounter
--- OUTSIDE RECORDS SUMMARY | 2024-01-04 14:46 | XMS_ITS | Encounter Summary ---
Author Organization [facility] [place] [address] Care Team Providers Care Location Analyst Name Role Phone Glenys Hernandez APRN Primary Care Provider Encounter Details Date Type Department Care Team (Late Contact Info) Description 11/08/2022 Ancillary Procedure Radiology Library at [facility] [place] [phone] Minnie Muñoz APRN [facility] [place] [address] Social History Tobacco Use Types Packs/Day Years [...] Department Care Team (Late Contact Info) Description 01/23/2024 2:00 PM EDT Office Visit [facility] [place] [address] Kenneth Martin MD [facility] [place] [address] 02/19/2024 1:00 PM EST Office [place] [address] Mike Ko MD [facility] [place] [address] documented as of this encounter Goals Goal [...] MR Spine (11/08/2022 12:00 AM EDT) Narrative [facility] - 02/06/2023 9:41 PM EDT This exam is auto-finalizing. It's purpose is for storage only. Minnie Muñoz APRN IMG FILM LIBRARY OR DERABLES [place], [place] documented in this encounter Visit Diagnoses Not on filedocumented in this encounter Care Teams Location Analyst Relationship Specialty Start Date End Date Glenys Hernandez APRN [address] [place] [address] PCP - General Family Medicine 09/26/21 12/28/22 documented as of this encounter
--- OUTSIDE RECORDS SUMMARY | 2024-01-04 14:46 | XMS_ITS | Encounter Summary ---
Author Organization [place] [id number] Care Team Providers Care Escalator Mechanic Name Role Phone Glenys Hernandez JL Primary Care Provider [phone] Reason for Referral * Consultation (Routine) - Closed Specialty Diagnoses / Procedures Referred By Madya t Referred To Contact [facility] Diagnoses Other cervical disc disorders at C6-C7 level Thoracic disc herniation Thoracic back pain, unspecified back pain laterality, unspecified chronicity Cervical/thoracic disc protrusion/CT (t) 09/18/[address] (c) 11/08/22 @ [facility]/surgical vs [facility] FVE EDITORIAL MANAGER Jacey Amador APRN [address] [place] [address] [facility] [place] [address] Referral ID Status Reason Start Date Expiration Date V isits Requested Visits Authorized [id number] Closed Consult, Test & Treat PCP Updated and/or Approved 12/04/2022 12/04/2023 1 1 Encounter Details Date Type Department Care Team (Latest Contact Info) Description 12/04/2022 Transcribe Orders eDH Incoming Referrals [phone] Jacey Amador APRN [address] [place], [place] [id number] Other cervical disc disorders at C6-C7 level; [...] Office Visit [place] [phone] Kenneth Martin MD [facility] [place] [address] 02/19/2024 1:00 PM EST Office [place] [phone] Mike Ko MD [facility] [place] [address] Scheduled Referrals Name Type Priority Associated Diagnoses [...] chronicity documented in this encounter Care Teams Escalator Mechanic Relationship Specialty Start Date End Date Glenys Hernandez, DUST MILL OPERATOR [address] [place] [address] PCP - General Family Medicine 09/26/21 12/28/22 documented as of this encounter
--- OUTSIDE RECORDS SUMMARY | 2024-01-04 14:46 | XMS_ITS | Encounter Summary ---
Author Organization [facility] [place] [address] Care Team Providers Care Space Systems Operations Manager Name Role Phone Gleyns Hernandez APRN Primary Care Provider [phone] Encounter Details Date Type Department Care Team [...] Office Visit [facility] [place] [phone] Kennteh Martin MD [facility] [place] [address] 02/19/2024 1:00 PM EST Office Visit [place] [phone] Mike Ko MD [facility] [place] [address] documented as of this encounter Goals Goal [...] on filedocumented in this encounter Care Teams Space Systems Operations Manager Relationship Specialty Start Date End Date Glenys Hernandez, JL [address] [place] [address] PCP - General Family Medicine 09/26/21 12/28/22 documented as of this encounter
--- OUTSIDE RECORDS SUMMARY | 2024-01-04 14:46 | XMS_ITS | Encounter Summary ---
[place] [address] Care Team Providers Care Elevator Installer Apprentice Name Role Phone Glenys Hernandez APRN Primary Care Provider [phone] Reason for Visit * Reason Onset Date Comments Appointment 12/29/2021 Encounter Details Date Type Department Care Team (Late Contact Info) Description 12/29/2021 Telephone Weight and Wellness at [address] [phone] Suzi Reid Appointment Social History Tobacco Use [...] Office Visit [facility] [place] [phone] Kenneth Martin MD [facility] [place] [address] 02/19/2024 1:00 PM EST Office Visit Plastic Surgery at [facility] [place] [address] Mike Ko MD [facility] [place] [address] documented as of this encounter Goals Goal [...] on filedocumented in this encounter Care Teams Elevator Installer Apprentice Relationship Specialty Start Date End Date Glenys Hernandez, JL [address] [place] [address] PCP - General Family Medicine 09/26/21 12/28/22 documented as of this encounter
--- OUTSIDE RECORDS SUMMARY | 2024-01-04 14:46 | XMS_ITS | Encounter Summary ---
[place] [address] Care Team Providers Care Principal Systems Engineer Name Role Phone Glenys Hernandez JL Primary Care Provider [phone] Encounter Details Date Type Department Care Team (Late Contact Info) Description 03/09/2022 Telephone [place] [address] eCle Calloway APRN [facility] [place] [address] Social History Tobacco Use Types Packs/Day Years [...] Office Visit [facility] [place] [address] Kenneth Martin MD [facility] [place] [address] 02/19/2024 1:00 PM EST Office [place] [address] Mike Ko MD [facility] [place] [place] [address] documented as of this encounter [...] filedocumented in this encounter Care Teams Principal Systems Engineer Relationship Specialty Start Date End Date Glenys Hernandez, JL [address] [place] [address] PCP - General Family Medicine 09/26/21 12/28/22 documented as of this encounter
--- OUTSIDE RECORDS SUMMARY | 2024-01-04 14:46 | XMS_ITS | Encounter Summary ---
[place] [address] Care Team Providers Care Handicrafts Teacher Name Role Phone Glenys Hernandez APRN Primary Care Provider [phone] Encounter Details Date Type Department Care Team (Late st Contact Info) Description 04/17/2022 Telephone Weight and Wellness at [address] [phone] Suzi Reid Social History Tobacco Use Types [...] Office Visit [place] [address] Kenneth Martin MD [facility] [place] [address] 02/19/2024 1:00 PM EST Office [place] [address] Mike Ko MD [facility] [place]LAST[place] [address] documented as of this encounter Goals Goal [...] on filedocumented in this encounter Care Teams Handicrafts Teacher Relationship Specialty Start Date End Date Glenys Hernandez APRN [address] [place] [address] PCP - General Family Medicine 09/26/21 12/28/22 documented as of this encounter
--- OUTSIDE RECORDS SUMMARY | 2024-01-04 14:46 | XMS_ITS | Clinical Summary ---
Author Organization [facility] Address [facility] [place] [address] Care Team Providers Care Cold Work Operator Name Role Phone Justin Juarez MD Primary Care Provider [phone] Allergies Active Allergy Reactions Criticality Noted Date [...] UNKNOWN TO PATIENTIndications:l ions angie suppliment Indications: li[employer]rairie [employer] suppliment Active UNKNOWN TO PATIENTIndications:c ognative health [...] PM EDT Tech [place] [phone] Odalys Smith, RVT Peripheral vascular disease, unspecified 11/16/2023 Travel 11/13/2023 Transcribe Orders eD Incoming Referrals [phone] Jacey Amador, EXTRACTION OPERATOR Peripheral vascular disease, unspecified from Last 3 [...] Office Visit [facility] [place] [address] Kenneth Martin MD [facility] [place] [address] 02/19/2024 1:00 PM EST Office [place] [address] Mike Ko MD [facility] [place] [address] Health Maintenance Due Date Last Done Comments CT Colonography 1963 Colonoscopy 1963 Colorectal Cancer Screening 1963 FIT DNA 1963 FIT 1963 Sigmoidoscopy (10 year) with FIT yearly 1963 Sigmoidoscopy 1963 Pneumococcal Vaccine: At-Ris k 5-64yrs (1 of 2 - PCV) 1969 HIV screen 1981 Hepatitis C Screening 1981 Tdap adult (Retired) 1982 Tetanus vaccine (Retired) 1982 HPV test 1993 PAP Smear 1993 Breast Cancer Share Decision Needed 2003 Breast Cancer screening 2003 Zoster vaccine (1 of 2) 2013 Advance Directive 2018 Covid-19 Vaccine (1 - season) 2023 Influenza (Flu) vaccine (1 o f 1 [...] 1:59 PM EDT Peripheral vascular disease, unspecified [facility] EXTERNAL LABS 2 Routine 12/22/2021 [facility] EXTERNAL RESULT PANEL Routine 08/29/2021 from Last 3 Months or Most Recently Relevant to Health Maintenance Results * NOAH, legs, multiple levels (11/16/2023 1:59 PM EDT) Pathologist [facility] VB Text Report Department: Vascular Surgery Lab Patient: [id number] (AYDEE BEVERLY) CPT: 70533 Referring Physician: JACEY AMADOR ?? Phone: Indications: [...] VASCUBASE 11/16/2023 1:59 PM EDT Jacey Amador EXTRACTION OPERATOR VASCULAR ORDERABLES VASCUBASE * (ABNORMAL) [facility] Labs 2 - External (12/22/2021) Hemoglobin A1c 5.9(H) Glucose Fasting 103 Vitamin D Total 25 OH 19.1(L) Thyroid Stimulating Hormone 0.93 Insulin 15.1 Ferritin 120 Iron 76 12/22/2021 Historical Provider EXTERNAL LAB BORA DAMONJEREMY * (ABNORMAL) [facility] External Results (08/29/2021) Cholesterol, Total 311(H) Triglyceride [...] Recently Relevant to Health Maintenance Care Teams Cold Work Operator Relationship Specialty Start Date End Date Justin Juarez MD PCP - General Family Medicine 12/29/22
--- OUTSIDE RECORDS SUMMARY | 2024-01-04 14:46 | XMS_ITS | Encounter Summary ---
[place] [address] Care Team Providers Care Launch Check Out Name Role Phone Justin Juarez MD Primary Care Provider [phone] Encounter Details Date Type Department Care Team [...] Office Visit [facility] and Spine Center at [place] [phone] Kenneth Martin MD [facility] [place] [address] 02/19/2024 1:00 PM EST Office Visit Plastic Surgery at [place] [phone] Mike Ko MD [facility] [place] [address] documented as of this encounter Goals Goal [...] on filedocumented in this encounter Care Teams Launch Check Out Relationship Specialty Start Date End Date Justin Juarez MD PCP - General Family Medicine 12/29/22 documented as of this encounter
--- OUTSIDE RECORDS SUMMARY | 2024-01-04 14:46 | XMS_ITS | Encounter Summary ---
Author Organization [facility] [place] [address] Care Team Providers Care Bacteriologist Fishery Name Role Phone Justin Juarez MD Primary Care Provider [phone] Reason for Referral * Consultation (Routine) - Authorized Specialty Diagnoses / Procedures Referred By Contac t Referred To Contact Pain and Spine Center Diagnoses Left sided sciatica Minnie Muñoz APRN [facility] [place] [address] [facility] [place] [address] Referral ID Status Reason Start Date Expiration Date Visits Requested Visits Authorized [id number] Authorized Consult, Test & Treat 07/26/2023 07/25/2024 1 1 Reason for Visit * Consultation (Routine) - Closed Specialty Diagnoses / Procedures Referred By Contac t Referred To Contact Pain and Spine Center Diagnoses Radiculopathy of lumbar region F/U lumbar radiculopathy/XR 06/15/23 in e-DH/? Left L5 TFESI FUV Osmar Bruner MD [facility] [place] [address] [facility] [place] [address] Referral ID Status Reason Start Date Expiration Date V isits Requested Visits Authorized [id number] Closed Consult, Test & Treat 07/02/2023 07/01/2024 1 1 Encounter Details Date Type Department Care Team (Latest Contact Info) Description 07/26/2023 1:00 PM EDT TH Visit (TeleHealth) Pain and Spine Center at [facility] [place] [address] Minnie Muñoz APRN [facility] [place] [address] Left sided sciatica (Primary Dx) Social History [...] from the original note were not included. [facility] Date of [...] She is done physical [facility] [place] [facility] and T[facility]en[facility] she would like [...] medial facetectomy done by Dr. Goodmans at [facility] neurology and neurosurgery in 2020 for a left-sided calcified synovial cyst. Since then she has had severe left leg pain that is problematic for her. She really cannot do much of anything. She is fine that the pain is quite severe and she would like to consider a referral to a surgeon. We also talked about the functional restorationism program but she does not have good transportation. She does not feel she needs empowered relief because she has done a lot of cognitive behavioral therapy. She is at maximum dose of gabapentin and is not really interested in continuing with other medications. She wants to have a final solution for her symptoms. Updated interval history 07/26/2023: [facility] Telemedicine Visit [...] Interference Score 8.29 PAST THERAPIES: PT in [place] [facility] Tylenol Functional Status Work-- disabled ADL's---difficulty [...] Knee to feet bilaterally secondary to Gilda [place], decreased sensation to kimberly arms as well Obstructive sleep apnea 11/03/2015 Stress disorder, posttraumatic 11/04/2015 Past Surgical History: Past Surgical History: Procedure Laterality Date APPENDECTOMY CHOLECYSTECTOMY COLECTOMY COLONOSCOPY PRO LAMINEC/FACETECT/FORAMIN, LUMBAR 1 SEG Left 08/31/2020 LAMINECTOMY, FACETECTOMY & FORAMINOTOMY,LUMBAR, ONE LEVEL (WRVU 15.37) performed by Homar Astudillo MD at [facility] MAIN OR Review of Systems: Denies fever, [...] y.o. year-old female who presents to the [facility] With low [...] send her some information about our functional restorationism program which might be helpful for her as well. Thank you Dr. Leigh for allowing my participation in Aydee Johns's care. Minnie Muñoz, MS, BUILDING SUPPLIES SALESPERSON RETAIL-BC, MANAGER RETAIL STORE Nurse practitioner Pain management [facility] documented in this encounter Plan of Treatment Upcoming Encounters Date Type Department Care Team (Late st Contact Info) Description 01/23/2024 2:00 PM EDT Office Visit [place] [address] Kenneth Martin MD [facility] [place] [address] 02/19/2024 1:00 PM EST Office [place] [address] Mike Ko MD [facility] [place] [address] Scheduled Referrals Name Type Priority Associated Diagnoses [...] Sciatica documented in this encounter Care Teams Bacteriologist Fishery Relationship Specialty Start Date End Date Justin Juarez MD PCP - General Family Medicine 12/29/22 documented as of this encounter
--- OUTSIDE RECORDS SUMMARY | 2024-01-04 14:46 | XMS_ITS | Encounter Summary ---
Author Organization [facility] [place] [address] Care Team Providers Care Assistant Merchandiser Name Role Phone Justin Juarez MD Primary Care Provider [phone] Reason for Visit * Reason Comments Back Pain Neck * Consultation (Routine) - Closed Specialty Diagnoses / Procedures Referred By Contac t Referred To Contact Pain and Spine Center Diagnoses Other cervical disc disorders at C6-C7 level Thoracic disc herniation Thoracic back pain, unspecified back pain laterality, unspecified chronicity Cervical/thoracic disc protrusion/CT (t) 09/18/[address] (c) 11/08/22 @ [facility]/surgical vs [facility]VE INFECTIOUS DISEASE TECHNICIAN Jacey Amador, JL [address] [place] [address] [facility] [address] Referral ID Status Reason Start Date Expiration Date V isits Requested Visits Authorized [id number] Closed Consult, Test & Treat PCP Updated and/or Approved 12/04/2022 12/04/2023 1 1 Encounter Details Date Type Department Care Team (Late st Contact Info) Description 03/13/2023 3:15 PM EST Office Visit [place] [address] Minnie Muñoz LAB ANIMAL TECHNOLOGIST [facility] [place] [address] Radicular pain of left lower extremity Social [...] this encounter Progress Notes * Minnie Muñoz, LAB ANIMAL TECHNOLOGIST - 03/13/2023 3:15 PM EST Images from the original note were not included. [facility] Date [...] painful to the touch. She saw Dr. Astudilol who did his surgery for a calcified [...] She is [facility] [place] [facility] and T[facility]enol she would like to [...] Interference Score 8.29 PAST THERAPIES: PT in [place] Chiropractor Tylenol Functional Status Work-- disabled ADL's---difficulty [...] Knee to feet bilaterally secondary to Gilda [place], decreased sensation to kimberly arms as well Obstructive sleep apnea 11/03/2015 Stress disorder, posttraumatic 11/04/2015 Past Surgical History: Past Surgical History: Procedure Laterality Date APPENDECTOMY CHOLECYSTECTOMY COLECTOMY COLONOSCOPY PRO LAMINEC/FACETECT/FORAMIN, LUMBAR 1 SEG Left 08/31/2020 LAMINECTOMY, FACETECTOMY & FORAMINOTOMY,LUMBAR, ONE LEVEL (WRVU 15.37) performed by Homar Astudillo MD at [facility] MAIN OR Review of Systems: Denies [...] y.o. year-old female who presents to the [facility] for [facility] clinic With low back pain and lateral leg pain. Saw her I had ordered that she had a trial of an epidural steroid injection and that never happeneduntil she saw Dr. Henriquez not at [facility] at the end of last year. [...] in Aydee Johns's care. Minnie Muñoz, MS, SCHOOL [employer]-BC, LAB ANIMAL TECHNOLOGIST Nurse practitioner Pain management [facility] documented in this encounter Plan of Treatment Upcoming Encounters Date Type Department Care Team (Late st Contact Info) Description 01/23/2024 2:00 PM EDT Office Visit [place] [address] Kenneth Martin MD [facility] [place] [address] 02/19/2024 1:00 PM EST Office [place] [address] Mike Ko MD [facility] [place] [address] Scheduled Referrals Name Type Priority Associated Diagnoses [...] unspecified documented in this encounter Care Teams Assistant Merchandiser Relationship Specialty Start Date End Date Justin Juarez MD PCP - General Family Medicine 12/29/22 documented as of this encounter
--- OUTSIDE RECORDS SUMMARY | 2024-01-04 14:46 | XMS_ITS | Encounter Summary ---
[place] [address] Care Team Providers Care Verification Manager Name Role Phone Justin Juarez MD Primary Care Provider [phone] Encounter Details Date Type Department Care Team (Late st Contact Info) Description 07/27/2023 Telephone [facility] [place] [address] Mike Rock Social History Tobacco Use Types [...] Office Visit [facility] [place] [address] Kenneth Martin MD [facility] [place] [address] 02/19/2024 1:00 PM EST Office [place] [address] Mike Ko MD [facility] [place] [address] documented as of this encounter Goals Goal [...] on filedocumented in this encounter Care Teams Verification Manager Relationship Specialty Start Date End Date Justin Juarez MD PCP - General Family Medicine 12/29/22 documented as of this encounter
--- OUTSIDE RECORDS SUMMARY | 2024-01-04 14:46 | XMS_ITS | Encounter Summary ---
[place] [address] Care Team Providers Care Clinical Services Director Name Role Phone Glenys Hernandez APRN Primary Care Provider [phone] Encounter Details Date Type Department Care Team (Late st Contact Info) Description 04/17/2022 Telephone [place] [address] Meghna Agee Social History Tobacco [...] Office Visit [place] [address] Kenneth Martin MD [facility] [place] [address] 02/19/2024 1:00 PM EST Office [place] [address] Mike Ko MD [facility] [place] [address] documented as of this encounter Goals Goal [...] on filedocumented in this encounter Care Teams Clinical Services Director Relationship Specialty Start Date End Date Glenys Hernandez APRN [address] [place] [address] PCP - General Family Medicine 09/26/21 12/28/22 documented as of this encounter
--- OUTSIDE RECORDS SUMMARY | 2024-01-04 14:46 | XMS_ITS | Encounter Summary ---
[place] [address] Care Team Providers Care Manager Perioperative Name Role Phone Justin Juarez MD Primary Care Provider Reason for Visit * Diagnostic Test (Routine) - Closed Specialty Diagnoses / Procedures Referred By Mayda jalloh Referred To Contact Diagnoses Peripheral vascular disease, unspecified Procedures NOAH, legs, multiple levels Jacey Amador, EMBEDDED LINUX ENGINEER [address] [place] [address] [facility] Vascular Lab [address] [place] [address] Referral ID Status Reason Start Date Expiration Date V isits Requested Visits Authorized [id number] Closed Specialty Service Requested 11/13/2023 11/12/2024 1 1 Encounter Details Date Type Department Care Team ([facility] Contact Info) Description 11/16/2023 2:00 PM EDT Tech [place] [address] Odalys Smith, RVT Peripheral vascular [...] Upcoming Encounters Date Type Department Care Team ([facility] Contact Info) Description 01/23/2024 2:00 PM EDT Office Visit [place] [address] Kenneth Martin MD [facility] [place] [address] 02/19/2024 1:00 PM EST Office [place] [address] Mike Ko MD [facility] [place] [place] [address] documented as of this encounter [...] Text Report Department: Vascular Surgery Lab Patient: [id number] (AYDEE BEVERLY) CPT: [id number] Referring Physician: JACEY AMADOR ?? Phone: Indications: [...] Visit Diagnoses Diagnosis Peripheral vascular disease, unspecified documented in this encounter Care Teams Manager Perioperative Relationship Specialty Start Date End Date uJstin Juarez MD PCP - General Family Medicine 12/29/22 documented as of this encounter
--- OUTSIDE RECORDS SUMMARY | 2024-01-04 14:46 | XMS_ITS | Encounter Summary ---
Author Organization [facility] [place] [address] Care Team Providers Care Makeup Sales Consultant Name Role Phone Glenys Hernandez APRN Primary Care Provider [phone] Reason for Visit * Reason Onset Date Comments Reminder Appointment 11/28/2022 Encounter Details Date Type Department Care Team ([facility] Contact Info) Description 11/28/2022 Telephone Neurology at [facility] [place] [address] Pantera Welch MD [facility] [place] [address] Reminder Appointment Social History Tobacco Use Types [...] [facility] Contact Info) Description 01/23/2024 2:00 PM EDT Office Visit [place] [address] Kenneth Martin MD [facility] [place] [address] 02/19/2024 1:00 PM EST Office [place] [address] Mike Ko MD [facility] [place] [address] documented as of this encounter Goals Goal [...] on filedocumented in this encounter Care Teams Makeup Sales Consultant Relationship Specialty Start Date End Date Glenys Hernandez, JL [address] [facility] [place] [address] PCP - General Family Medicine 09/26/21 12/28/22 documented as of this encounter
--- OUTSIDE RECORDS SUMMARY | 2024-01-04 14:46 | XMS_ITS | Encounter Summary ---
Author Organization [facility] [place] [address] Care Team Providers Care Trash Hauler Name Role Phone Justin Juarez MD Primary Care Provider [phone] Encounter Details Date Type Department Care Team (Late Contact Info) Description 06/15/2023 Ancillary Procedure Radiology Library at [facility] [place] [address] Justin Juarez MD [address] [place] [address] [address] [place], [place] [address] Social History Tobacco Use Types Packs/Day Years [...] Office Visit [place] [address] Kenneth Martin MD [facility] [place] [address] 02/19/2024 1:00 PM EST Office [place] [address] Mike Ko MD [facility] [place] [address] documented as of this encounter Goals Goal [...] DX Spine (06/15/2023 12:00 AM EST) Narrative [facility] - 06/18/2023 3:18 PM EDT This exam is auto-finalizing. It's purpose is for storage only. Justin Juarez MD IMG FILM LIBRARY ORD ERABLES Performing Organization Address City/State/[facility] Co de Phone Number [place], [place] documented in this encounter Visit Diagnoses Not on filedocumented in this encounter Care Teams Trash Hauler Relationship Specialty Start Date End Date Justin Juarez MD PCP - General Family Medicine 12/29/22 documented as of this encounter
--- OUTSIDE RECORDS SUMMARY | 2024-01-04 14:46 | XMS_ITS | Encounter Summary ---
Author Organization [place] [id number] Care Team Providers Care Vice President Of Recruiting Name Role Phone Justin Juarez MD Primary Care Provider Reason for Referral * Consultation (Routine) - Duplicate Referral Specialty Diagnoses / Procedures Referred By Mayda jalloh Referred To Contact Pain and Spine Center Diagnoses Left sided sciatica Idiopathic peripheral neuropathy Jacey Amador APRN [address] [place] [address] [facility] [place] [address] Referral ID Status Reason Start Date Expiration Date Visits Requested Visits Authorized [id number] Duplicate Referral Consult, Test & Treat PCP Updated and/or Approved 12/29/2022 12/29/2023 12 12 Encounter Details Date Type Department Care Team (Latest Contact Info) Description 12/29/2022 Transcribe Orders eDH Incoming Referrals [phone] Jacey Amador APRN [address] [place], [place] [id number] Left sided sciatica; Idiopathic peripheral neuropathy Social [...] Office Visit [place] [address] Kenneth Martin MD [facility] [place] [address] 02/19/2024 1:00 PM EST Office [place] [address] Mike Ko MD [facility] [place] [address] Scheduled Referrals Name Type Priority Associated Diagnoses [...] neuropathy documented in this encounter Care Teams Vice President Of Recruiting Relationship Specialty Start Date End Date Justin Juarez MD PCP - General Family Medicine 12/29/22 documented as of this encounter
--- OUTSIDE RECORDS SUMMARY | 2024-01-04 14:46 | XMS_ITS | Encounter Summary ---
Author Organization [facility] [address] Care Team Providers Care Real Estate Operations Manager Name Role Phone Glenys Hernandez APRN Primary Care Provider [phone] Encounter Details Date Type Department Care Team (Latest Contact Info) Description 03/07/2022 11:00 AM EST TH Visit (TeleHealth) Weight and Wellness at [address] [address] Elena Luna, PhD [facility] DR [facility] [place] [id number] Obesity with serious comorbidity, unspecified classification, unspecified [...] [address] WEIGHT AND WELLNESS AT [address] [address] Dept: [phone] 03/07/2022 9:08 AM Aydee Johns is a 57 y.o. female who was referred for evaluation and preparation for potential bariatric surgery. Aydee was seen for 60 minutes. Patient was alone, and was seen Telehealth. Aydee Johns gave permission for and was seen for today's appointment with a Telehealth visit. During this visit they were located at [place]. Aydee Johns is aware that for any urgent matter they can call [phone].. RECOMMENDATION BASED ON PSYCHOLOGICAL EVALUATION YELLOW - [...] Office Visit [place] [address] Kenneth Martin MD [facility] [place] [address] 02/19/2024 1:00 PM EST Office [place] [address] Mike Ko MD [facility] [place] [address] documented as of this encounter Goals Goal [...] type documented in this encounter Care Teams Real Estate Operations Manager Relationship Specialty Start Date End Date Glenys Hernandez, JL [address] [place] [address] PCP - General Family Medicine 09/26/21 12/28/22 documented as of this encounter
--- OUTSIDE RECORDS SUMMARY | 2024-01-04 14:46 | XMS_ITS | Encounter Summary ---
[place] [address] Care Team Providers Care Power And Recovery Supervisor Name Role Phone Justin Juarez MD Primary Care Provider [phone] Encounter Details Date Type Department Care Team (Late st Contact Info) Description 05/24/2023 Telephone [place] [address] Porsha Cherry Social History Tobacco [...] Porsha Cherry - 05/24/2023 9:29 AM EST [facility] 05/24/23 in regards to scheduling a follow up with Minnie Muñoz APRN. Please call [phone]. Note: Follow up to MRI 05/17/23 in e-/ Discuss next steps documented in this encounter Plan of Treatment Upcoming Encounters Date Type Department Care Team (Late st Contact Info) Description 01/23/2024 2:00 PM EDT Office Visit [place] [address] Kenneth Martin MD [facility] [place] [address] 02/19/2024 1:00 PM EST Office Visit Plastic Surgery at [facility] [place], [facility] [address] Mike Ko MD [facility] [place] [address] documented as of this encounter Goals Goal [...] on filedocumented in this encounter Care Teams Power And Recovery Supervisor Relationship Specialty Start Date End Date Justin Juarez MD PCP - General Family Medicine 12/29/22 documented as of this encounter
--- OUTSIDE RECORDS SUMMARY | 2024-01-04 14:46 | XMS_ITS | Encounter Summary ---
Author Organization [facility] [place] [address] Care Team Providers Care Company Pilot Name Role Phone Glenys Hernandez APRN Primary Care Provider [phone] Encounter Details Date Type Department Care Team ([facility] Contact Info) Description 01/25/2022 10:30 AM EDT TH Visit (TeleHealth) Weight and Wellness at [facility] [address] [place] [address] [facility] [place] [address] Adult BMI 39.0-39.9 kg/sq m Social History [...] was at home at the following address: [address] [place] [address] Weight Today: Wt Readings from Last 3 [...] Loss History: See previous notes from this director underwriter sales and [facility] provider for full account Smoking: quit [...] [x] Needs additional fuv scheduled with this director underwriter sales in Return in about 1 month (around [...] determined to the best ability of this director underwriter sales. Patient will contact bariatric surgery team for any official determination about about scheduling and insurance requirements ( ) Thank you Sita Sandoval MS THO LD 30 minutes were spent in visit today, including contact with patient, chart review, and documentation documented in this encounter Plan of Treatment Upcoming Encounters Date Type Department Care Team (Late st Contact Info) Description 01/23/2024 2:00 PM EDT Office Visit [place] [address] Kenneth Martin MD [facility] [place] [address] 02/19/2024 1:00 PM EST Office [place] [phone] Mike Ko MD [facility] [place] [address] documented as of this encounter Goals Goal [...] adult documented in this encounter Care Teams Company Pilot Relationship Specialty Start Date End Date Glenys Hernandez APRN [address] [place] [address] PCP - General Family Medicine 09/26/21 12/28/22 documented as of this encounter
--- OUTSIDE RECORDS SUMMARY | 2024-01-04 14:46 | XMS_ITS | Encounter Summary ---
Author Organization [facility] [place] [address] Care Team Providers Care Bridge Opener Name Role Phone Glenys Hernandez APRN Primary Care Provider Encounter Details Date Type Department Care Team (Late st Contact Info) Description 04/06/2022 Telephone [place] [phone] Suzi Reid Social History Tobacco Use Types [...] Office Visit [facility] [place] [address] Kenneth Martin MD [facility] [place] [address] 02/19/2024 1:00 PM EST Office Visit [place] [address] Mike Ko MD [facility] [place] [place] [address] documented as of this encounter Goals Goal [...] filedocumented in this encounter Care Teams Bridge Opener Relationship Specialty Start Date End Date Glenys Hernandez APRN [address] [place] [facility] [place] [address] PCP - General Family Medicine 09/26/21 12/28/22 documented as of this encounter
--- OUTSIDE RECORDS SUMMARY | 2024-01-04 14:46 | XMS_ITS | Encounter Summary ---
Author Organization [facility] [place] [address] Care Team Providers Care Engine Emission Technician Name Role Phone Glenys Hernandez APRN Primary Care Provider [phone] Encounter Details Date Type Department Care Team (Late Contact Info) Description 09/18/2022 Ancillary Procedure Radiology Library at [facility] [place] [phone] Minnie Muñoz APRN [facility] [place] [address] Social History Tobacco Use Types Packs/Day Years [...] Office Visit [place] [address] Kenneth Martin MD [facility] [place] [address] 02/19/2024 1:00 PM EST Office [place] [address] Mike Ko MD [facility] [place] [address] documented as of this encounter Goals Goal [...] MR Spine (09/18/2022 12:00 AM EDT) Narrative [facility] - 02/06/2023 9:40 PM EDT This exam is auto-finalizing. It's purpose is for storage only. Minnie Muñoz APRN IMG FILM LIBRARY OR DERABLES [place] documented in this encounter Visit Diagnoses Not on filedocumented in this encounter Care Teams Engine Emission Technician Relationship Specialty Start Date End Date Glenys Hernandez APRN [address] [place] [address] PCP - General Family Medicine 09/26/21 12/28/22 documented as of this encounter
--- OUTSIDE RECORDS SUMMARY | 2024-01-04 14:46 | XMS_ITS | Encounter Summary ---
Author Organization [facility] [place] [address] Care Team Providers Care Car Cleaning Supervisor Name Role Phone Justin Juarez MD Primary Care Provider [phone] Encounter Details Date Type Department Care Team [...] Office Visit [facility] and Spine Center at [place] [phone] Kenneth Martin MD [facility] [place] [place] [address] 02/19/2024 1:00 PM EST Office [place] [address] Mike Ko MD [facility] [place] [place] [address] documented as of this encounter Goals Goal [...] on filedocumented in this encounter Care Teams Car Cleaning Supervisor Relationship Specialty Start Date End Date Justin Juarez MD PCP - General Family Medicine 12/29/22 documented as of this encounter
--- OUTSIDE RECORDS SUMMARY | 2024-01-04 14:46 | XMS_ITS | Encounter Summary ---
Author Organization [facility] Address [facility] [place] [address] Care Team Providers Care Microsystems Engineer Name Role Phone Glenys Hernandez APRN Primary Care Provider [phone] Reason for Referral * Physical Therapy (Routine) - Closed Specialty Diagnoses / Procedures Referred By Mayda jalloh Referred To Contact Diagnoses Headache, cervicogenic Pantera Welch MD [facility] [place] [address] Unknown None Referral ID Status Reason Start Date Expiration Date V isits Requested Visits Authorized [id number] Closed Evaluate and Treat Non PCP 12/04/2022 06/02/2023 12 12 Reason for Visit * Consultation (Routine) - Closed Specialty Diagnoses / Procedures Referred By Mayda jalloh Referred To Contact Neurology Diagnoses Migraine without status migrainosus, not intractable, unspecified migraine type Medication management contract agreement Jacey Amador, JL [address] [place] [address] [place] [address] [facility] Neurology [address] [place] [phone] Referral ID Status Reason Start Date Expiration Date V isits Requested Visits Authorized [id number] Closed Consult, Test & Treat PCP Updated and/or Approved 10/17/2022 10/17/2023 12 12 Encounter Details Date Type Department Care Team (Latest Contact Info) Description 12/04/2022 10:00 AM EDT TH Visit (TeleHealth) [place] [address] Pantera Welch MD [facility] [place] [address] Headache, cervicogenic Social History Tobacco Use Types [...] original note were not included. NEUROLOGY CLINIC [facility] [place] [address] 12/04/2022 Patient name: Aydee Johns Date of : 1965 Referring provider: Glenys Hernandez APRN [address] [place] [address] HISTORY REASON FOR REFERRAL/CHIEF COMPLAINT: Headache/ Migraine HISTORY OF PRESENTING COMPLAINTS: Referred for headache. She was previously seen at [facility] Headache and Neurology. She says she had [...] Knee to feet bilaterally secondary to Gilda Racine, decreased sensation to kimberly arms as well Obstructive sleep apnea 11/03/2015 Stress disorder, posttraumatic 11/04/2015 Past Surgical History: Procedure Laterality Date APPENDECTOMY CHOLECYSTECTOMY COLECTOMY COLONOSCOPY PRO LAMINEC/FACETECT/FORAMIN, LUMBAR 1 SEG Left 08/31/2020 LAMINECTOMY, FACETECTOMY & FORAMINOTOMY,LUMBAR, ONE LEVEL (WRVU 15.37) performed by Homar Astudillo MD at [facility] Family History: Family History [...] found for: CRP B12No results found for: NCAVCMLH83 CKNo results found for: CK Angiotensin ConvertaseNo [...] (H) 08/29/2021 KURTIS 65No results found for: RXT38NG ANTI GM1,ANTI SGPG, MAG@RESUFAST (MAGAUTOAB,SGPG,MAGWB,GM1AB)@ HEAVY METAL [...] ANNA1, ANNA2, ANNA3, AGNA1, PCA1, PCA2, PCATYPETR, AMPHIPHYSIN,RYVD7HNX, STRIATMSCLAB, CACHABPQTYPE, CACHABNTYPE, ACHRBINDAB, NEUROKCHAB, NMDARECEPTOR, KTI56BD THROMBOSIS HOMEOCYSTEINENo results found for: HOMOCYSTEINE THROMBOSIS PANELNo results found for: ACAIGM, L8KCHWJARNS FACTOR V LEIDEN No components found for: [...] past. Was seen in Headache clinic at [facility] in the past. Workup with MRI was [...] needed. Pantera Welch MD Department of Neurology [facility] documented in this encounter Plan of Treatment Upcoming Encounters Date Type Department Care Team (Late st Contact Info) Description 01/23/2024 2:00 PM EDT Office Visit [place] [phone] Kenneth Martin MD [facility] [place] [place] [address] 02/19/2024 1:00 PM EST Office [place] [address] Mike Ko MD [facility] [place] [place] [address] Scheduled Referrals Name Type Priority Associated Diagnoses [...] Headache documented in this encounter Care Teams Microsystems Engineer Relationship Specialty Start Date End Date Glenys Hernandez, JL [address] [place] [address] PCP - General Family Medicine 09/26/21 12/28/22 documented as of this encounter
--- OUTSIDE RECORDS SUMMARY | 2024-01-04 14:46 | XMS_ITS | Encounter Summary ---
Author Organization [facility] [place] [address] Care Team Providers Care Pond Tender Name Role Phone Glenys Hernandez APRN Primary Care Provider [phone] Encounter Details Date Type Department Care Team ([facility] Contact Info) Description 03/20/2022 Telephone Weight and Wellness at [address] [address] Светлана Villasenor, MANOJ Social History [...] PM EST [facility] Wash Worker Pre-telemedicine Visit Phone Note Aydee Johns 1965 [] Patient was not reached Patient was reached and the following information was reviewed/obtained per protocol: [x] Confirmed patient name and date of [x] Confirmed ZOOM downloaded and functioning [] ZOOM appointment link sent if no MyDH [x] Phone number to be reached is: [phone] REVIEW: [x] Review of patient medications completed [...] Office Visit [place] [address] Kenneth Martin MD [facility] [place] [address] 02/19/2024 1:00 PM EST Office [place] [phone] Mike Ko MD [facility] [place] [address] documented as of this encounter Goals Goal [...] on filedocumented in this encounter Care Teams Pond Tender Relationship Specialty Start Date End Date Glenys Hernandez APRN [address] [place] [address] PCP - General Family Medicine 09/26/21 12/28/22 documented as of this encounter
--- OUTSIDE RECORDS SUMMARY | 2024-01-04 14:46 | XMS_ITS | Encounter Summary ---
Author Organization [facility] Address [facility] [place] [address] Care Team Providers Care Edge Bander Operator Name Role Phone Glenys Hernandez APRN Primary Care Provider Reason for Visit * Consultation (Routine) - Closed Specialty Diagnoses / Procedures Referred By Mayda jalloh Referred To Contact Dermatology Diagnoses Pruritus, unspecified Procedures Itching of Skin; New Patient-Notes Received Glenys Hernandez APRN [address] [place], [place] [address] [address] [facility] Dermatology [address] [place] [address] Referral ID Status Reason Start Date Expiration Date V isits Requested Visits Authorized [id number] Closed Consult, Test & Treat PCP Updated and/or Approved 03/20/2022 03/20/2023 6 6 Encounter Details Date Type Department Care Team ([facility] Contact Info) Description 07/04/2022 3:00 PM EDT Office Visit Dermatology at [facility] [address] [place] [phone] Syeda Dias MD [facility] [address] [place] [address] Pruritus Social History Tobacco Use [...] products discussed RTC: PRN []Note routed to paralegal secretary []Recall placed in scheduling system []Appointment scheduled at checkout Scribe attestation: Bonifacio Tran CMA and Nic Barajas have performed the documentation for this encounter in the presence of and acting as a scribe for Syeda Dias MD. I performed the above scribed service and agree with the accuracy of the documentation in this encounter. Reviewed and signed by: Syeda Dias MD Dermatology [facility] Patient seen and evaluated with staff mine surveyor: Santiago Patrick MD Dermatology [facility] * Santiago Patrick MD - 07/04/2022 3:00 PM EDT I was the supervising physician working with dermatology resident Dr. Dias in the dermatology clinic during this patient visit. The level of resident supervision for this patient visit was indirectsupervision with direct supervision immediately available. (definition: [facility] Policy Statement on Graduate Medical Education, [...] Office [place] [address] Kenneth Martin MD [facility] [place] [address] 02/19/2024 1:00 PM EST Office [place] [address] Mike Ko MD [facility] [place] [address] documented as of this encounter Goals Goal [...] disorder documented in this encounter Care Teams Edge Bander Operator Relationship Specialty Start Date End Date Glenys Hernandez APRN [address] [place] [address] PCP - General Family Medicine 09/26/21 12/28/22 documented as of this encounter
--- OUTSIDE RECORDS SUMMARY | 2024-01-04 14:46 | XMS_ITS | Encounter Summary ---
Author [facility] [place] [address] Care Team Providers Care Gmat Tutor Name Role Phone Justin Juarez MD Primary Care Provider Reason for Referral * Consultation (Routine) - Closed Specialty Diagnoses / Procedures Referred By Mayda jalloh Referred To Contact Pain and Spine Center Diagnoses Radicular pain of left lower extremity Minnie Muñoz APRN [facility] [place] [address] [facility] [place] [address] Referral ID Status Reason Start Date Expiration Date V isits Requested Visits Authorized [id number] Closed Consult, Test & Treat 06/01/2023 05/31/2024 1 1 Reason for Visit * Reason Comments Follow-up Left Leg Pain Left leg pain and sw elling(lower leg)Lower back Back Pain Encounter Details Date Type Department Care Team ([facility] st Contact Info) Description 06/01/2023 10:15 AM EST Office Visit [place] [address] Minnie Muñoz APRN [facility] [place] [address] Radicular pain of left lower [...] this encounter Progress Notes * Minnie Muñoz, COOK BARBECUE - 06/01/2023 10:15 AM EST Images from the original note were not included. [facility] Date [...] She is done physical therapy locally in [place] chiropractics and Tylenol she would like to [...] medial facetectomy done by Dr. Cason at [facility] neurology and neurosurgery in 2020 [...] Interference Score 8.29 PAST THERAPIES: PT in [place] Chiropractor Tylenol Functional Status Work-- disabled ADL's---difficulty [...] Knee to feet bilaterally secondary to Gilda Haynes, decreased sensation to kimberly arms as well Obstructive sleep apnea 11/03/2015 Stress disorder, posttraumatic 11/04/2015 Past Surgical History: Past Surgical History: Procedure Laterality Date APPENDECTOMY CHOLECYSTECTOMY COLECTOMY COLONOSCOPY PRO LAMINEC/FACETECT/FORAMIN, LUMBAR 1 SEG Left 08/31/2020 LAMINECTOMY, FACETECTOMY & FORAMINOTOMY,LUMBAR, ONE LEVEL (WRVU 15.37) performed by Homar Astudillo MD at [facility] MA[facility] OR Review of Systems: [...] y.o. year-old female who presents to the [facility] With low [...] in Aydee Johns's care. Minnie Muñoz, MS, ZUMBA INSTRUCTOR-BC, COOK BARBECUE Nurse practitioner Pain management [facility] documented in this encounter Plan of Treatment Upcoming Encounters Date Type Department Care Team (Late st Contact Info) Description 01/23/2024 2:00 PM EDT Office Visit [place] [address] Kenneth Martin MD [facility] [place] [address] 02/19/2024 1:00 PM EST Office [place] [address] Mike Ko MD [facility] [place] [address] Scheduled Orders Name Type Priority Associated Diagnoses [...] unspecified documented in this encounter Care Teams Gmat Tutor Relationship Specialty Start Date End Date Justin Juarez MD PCP - General Family Medicine 12/29/22 documented as of this encounter
--- OUTSIDE RECORDS SUMMARY | 2024-01-04 14:46 | XMS_ITS | Encounter Summary ---
[place] [address] Care Team Providers Care Paint Process Engineer Name Role Phone Justin Juarez MD Primary Care Provider Reason for Referral * Diagnostic Test (Routine) - Closed Specialty Diagnoses / Procedures Referred By Mayda t Referred To Contact Diagnoses Peripheral vascular disease, unspecified Procedures NOAH, legs, multiple levels Jacey Amador, JL [address] [place] [address] [facility] V[facility] Lab [address] [place] [phone] Referral ID Status Reason Start Date Expiration Date V isits Requested Visits Authorized [id number] Closed Specialty Service Requested 11/13/2023 11/12/2024 1 1 Encounter Details Date Type Department Care Team (Latest Contact Info) Description 11/13/2023 Transcribe Orders eDH Incoming Referrals [phone] Jacey Amador APRN [address] [place], [place] [id number] Peripheral vascular disease, unspecified Social History Tobacco [...] Office Visit [facility] [place] [address] Kenneth Martin MD [facility] [place] [address] 02/19/2024 1:00 PM EST Office [place] [address] Mike Ko MD [facility] [place] [address] documented as of this encounter [...] Text Report Department: Vascular Surgery Lab Patient: [id number] (AYDEE BEVERLY) CPT: 70107 Referring Physician: JACEY AMADOR ?? Phone: Indications: [...] PM EDT Jacey Amador APRN VASCULAR ORDERABLES Performing Organization Address City/State/[place] Co de Phone Number [employer] documented in this encounter Visit Diagnoses Diagnosis Peripheral vascular disease, unspecified documented in this encounter Care Teams Paint Process Engineer Relationship Specialty Start Date End Date Justin Juarez MD PCP - General Family Medicine 12/29/22 documented as of this encounter
--- OUTSIDE RECORDS SUMMARY | 2024-01-04 14:46 | XMS_ITS | Encounter Summary ---
Author Organization [facility] Address [facility] [place] [address] Care Team Providers Care Accounting Representative Name Role Phone Justin Juarez MD Primary Care Provider [phone] Encounter Details Date Type Department Care Team (Late Contact Info) Description 12/29/2022 Transcribe Orders eDH Incoming Referrals [phone] Justin Juarez MD [address] [place] [address] [place] [address] Social History Tobacco Use Types Packs/Day Years [...] Office Visit [facility] [place] [address] Kenneth Martin MD [facility] [place] [address] 02/19/2024 1:00 PM EST Office Visit [place] [address] Mike Ko MD [facility] [place] [address] documented as of this encounter Goals Goal [...] on filedocumented in this encounter Care Teams Accounting Representative Relationship Specialty Start Date End Date Justin Juarez MD PCP - General Family Medicine 12/29/22 documented as of this encounter
--- OUTSIDE RECORDS SUMMARY | 2024-01-04 14:46 | XMS_ITS | Encounter Summary ---
[place] [address] Care Team Providers Care Sybase Developer Name Role Phone Glenys Hernandez APRN Primary Care Provider [phone] Reason for Referral * Consultation (Routine) - Closed Specialty Diagnoses / Procedures Referred By Mayda jalloh Referred To Contact Neurology Diagnoses Polyneuropathy Andrea Méndez DO [facility] [facility] [place] [address] [facility] Neurology [address] [place] [phone] Referral ID Status Reason Start Date Expiration Date V isits Requested Visits Authorized [id number] Closed Consult, Test & Treat PCP Updated and/or Approved 08/10/2022 08/10/2023 1 1 Encounter Details Date Type Department Care Team (Latest Contact Info) Description 08/10/2022 Transcribe Orders eDH Incoming Referrals [phone] Andrea Méndez DO [address] [place] [id number] Polyneuropathy (Primary Dx) Social History Tobacco Use [...] Office Visit [place] [address] Kenneth Martin MD [facility] [place] [address] 02/19/2024 1:00 PM EST Office [place] [address] Mike Ko MD [facility] [place] [address] Scheduled Referrals Name Type Priority Associated Diagnoses [...] neuropathy documented in this encounter Care Teams Sybase Developer Relationship Specialty Start Date End Date Glenys Hernandez APRN [address] [place] [address] PCP - General Family Medicine 09/26/21 12/28/22 documented as of this encounter
--- OUTSIDE RECORDS SUMMARY | 2024-01-04 14:46 | XMS_ITS | Encounter Summary ---
Author Organization [facility] [place] [address] Care Team Providers Care Steamfitter Name Role Phone Glenys Hernandez APRN Primary Care Provider [phone] Encounter Details Date Type Department Care Team ([facility] Contact Info) Description 03/07/2022 Telephone [place] [phone] Zoraida Escalona RD [facility] [place] [address] Social History Tobacco Use Types Packs/Day Years [...] Office Visit [place] [address] Kenneth Martin MD [facility] [place] [address] 02/19/2024 1:00 PM EST Office [place] [phone] Mike Ko MD [facility] [place] [address] documented as of this encounter Goals Goal [...] on filedocumented in this encounter Care Teams Steamfitter Relationship Specialty Start Date End Date Glenys Hernandez APRN [address] [facility] [place] [address] PCP - General Family Medicine 09/26/21 12/28/22 documented as of this encounter
--- OUTSIDE RECORDS SUMMARY | 2024-01-04 14:46 | XMS_ITS | Encounter Summary ---
[place] [address] Care Team Providers Care Office Professionals Name Role Phone Glenys Hernandez JL Primary Care Provider Reason for Referral * Consultation (Routine) - Closed Specialty Diagnoses / Procedures Referred By Mayda jalloh Referred To Contact Neurology Diagnoses Migraine without status migrainosus, not intractable, unspecified migraine type Medication management contract agreement Jacey Amador APRN [address] [facility] [place] [address] [facility] [address] [place] [phone] Referral ID Status Reason Start Date Expiration Date V isits Requested Visits Authorized [id number] Closed Consult, Test & Treat PCP Updated and/or Approved 10/17/2022 10/17/2023 12 12 Encounter Details Date Type Department Care Team (Latest Contact Info) Description 10/17/2022 Transcribe Orders eDH Incoming Referrals [phone] Jacey Amador APRN [address] [facility] [place] [id number] Migraine without status migrainosus, not intractable, unspecified [...] Office Visit [place] [address] Kenneth Martin MD [facility] [place] [address] 02/19/2024 1:00 PM EST Office [place] [address] Mike Ko MD [facility] [place] [address] Scheduled Referrals Name Type Priority Associated Diagnoses Orde r Schedule Referral to Neurology Outpatient Referral Routine Migraine without status migrainosus, not intractable, unspecified migraine type Medication management contract agreement Ordered: 10/17/2022 documented as of this encounter Goals Goal Patient Goal Type Associated Problems Recent Progress Patient-Stated? Author Nutrition - 12/28/21 Lifestyle No Codie Wienberg MD Note: Nutrition Goals: Continue exercise routine [...] children documented in this encounter Care Teams Office Professionals Relationship Specialty Start Date End Date Glenys Hernandez, JL [address] [place] [address] PCP - General Family Medicine 09/26/21 12/28/22 documented as of this encounter
--- OUTSIDE RECORDS SUMMARY | 2024-01-04 14:46 | XMS_ITS | Encounter Summary ---
Author Organization [facility] [place] [address] Care Team Providers Care Strategies Analyst Name Role Phone Justin Juarez MD Primary Care Provider [phone] Encounter Details Date Type Department Care Team [...] [facility] [place] [phone] Kenneth Martin MD [facility] [place] [address] 02/19/2024 1:00 PM EST Office [place] [address] Mike Ko MD [facility] [place] [address] documented as of this encounter Goals Goal [...] on filedocumented in this encounter Care Teams Strategies Analyst Relationship Specialty Start Date End Date Justin Juarez MD PCP - General Family Medicine 12/29/22 documented as of this encounter
--- OUTSIDE RECORDS SUMMARY | 2024-01-04 14:46 | XMS_ITS | Encounter Summary ---
Author Organization [facility] [place] [address] Care Team Providers Care Human Resources Office Assistant Name Role Phone Justin Juarez MD Primary Care Provider [phone] Encounter Details Date Type Department Care Team [...] Office Visit [facility] at [place] [phone] Kenneth Martin MD [facility] [place] [address] 02/19/2024 1:00 PM EST Office [place] [address] Mike Ko MD [facility] [place] [address] documented as of this encounter Goals Goal [...] on filedocumented in this encounter Care Teams Human Resources Office Assistant Relationship Specialty Start Date End Date Justin Juarez MD PCP - General Family Medicine 12/29/22 documented as of this encounter
--- OUTSIDE RECORDS SUMMARY | 2024-01-04 14:46 | XMS_ITS | Encounter Summary ---
Author Organization [facility] [place] [address] Care Team Providers Care Therapeutic Recreation Leader Name Role Phone Justin Juarez MD Primary Care Provider [phone] Encounter Details Date Type Department Care Team (Late Contact Info) Description 05/17/2023 7:05 PM EST Ancillary Procedure Radiology Library at [facility] [place] [phone] Justin Juarez MD [address] [place] [address] [address] [place], [place] [address] Social History Tobacco Use Types Packs/Day Years [...] Office Visit [facility] [place] [address] Kenneth Martin MD [facility] [place] [address] 02/19/2024 1:00 PM EST Office Visit [place] [address] Mike Ko MD [facility] [place] [address] documented as of this encounter Goals Goal [...] Juarez MD G FILM LIBRARY ORD ERABLES Performing Organization Address City/State/[facility] Co de Phone Number [place], [place] documented in this encounter Visit Diagnoses Not on filedocumented in this encounter Care Teams Therapeutic Recreation Leader Relationship Specialty Start Date End Date Justin Juarez MD PCP - General Family Medicine 12/29/22 documented as of this encounter
--- OUTSIDE RECORDS SUMMARY | 2024-01-04 14:47 | XMS_ITS | Encounter Summary ---
Author Organization [facility] [place] [address] Care Team Providers Care Trouble Dispatcher Name Role Phone Nick Menendez MD Primary Care Provider Encounter Details Date Type Department Care Team (Late st Contact Info) Description 06/14/2018 Ancillary Procedure Radiology Library at [facility] [place] [phone] Nick Menendez MD [address] [place] [id number] Social History Tobacco Use Types Packs/Day Years [...] Office Visit [place] [address] Kenneth Martin MD [facility] [place] [address] 02/19/2024 1:00 PM EST Office [place] [address] Mike Ko MD [facility] [place] [address] documented as of this encounter Procedures Procedure Name Priority Date/Time Associated Diagnosis Comments FILM LIBRARY STORAGE ONLY MR HEAD AND SPINE Routine 06/14/2018 12:00 AM EST documented in this encounter Results * Film Library- Storage Only MR Head and Spine (06/14/2018 12:00 AM EST) Narrative [facility] - 06/21/2018 1:07 PM EDT This exam is auto-finalizing. It's purpose is for storage only. Nick Menendez MD G FILM LIBRARY ORD ERABLES [place], [place] documented in this encounter Visit Diagnoses Not on filedocumented in this encounter Care Teams Trouble Dispatcher Relationship Specialty Start Date End Date Nick Menendez MD [address] [place] [address] PCP - General General Internal Medicine 03/06/1608/12 documented as of this encounter
--- OUTSIDE RECORDS SUMMARY | 2024-01-04 14:47 | XMS_ITS | Encounter Summary ---
[place] [address] Care Team Providers Care Touring Production Manager Name Role Phone Zoraida Ordoñez MD Primary Care Provider [phone] Reason for Visit * Consultation (Routine) - Closed Specialty Diagnoses / Procedures Referred By Mayda t Referred To Contact General Surgery Diagnoses Weight loss Obesity, unspecified classification, unspecified obesity type, unspecified whether serious comorbidity present Harris Poon MD [address] [place] [address] [facility] Gen Surgery [place] [address] Referral ID Status Reason Start Date Expiration Date V isits Requested Visits Authorized [id number] Closed Consult, Test & Treat PCP Updated and/or Approved 08/15/2021 08/15/2022 6 6 Encounter Details Date Type Department Care Team ([facility] Contact Info) Description 08/22/2021 4:00 PM EDT Notes [place] [phone] Social History Tobacco Use Types Packs/Day Years [...] attended the Webex Information Session for the [facility] on 08/22/2021 documented in this encounter Plan of Treatment Upcoming Encounters Date Type Department Care Team (Late st Contact Info) Description 01/23/2024 2:00 PM EDT Office Visit [facility] at [place] [phone] Kenneth Martin MD [facility] [place] [address] 02/19/2024 1:00 PM EST Office [place] [address]-1000 Mike Ko MD [facility] [place] [address] Scheduled Referrals Name Type Priority Associated Diagnoses Orde r Schedule Referral to Bariatric Surgery Program Outpatient Referral Routine Weight loss Obesity, unspecified classification, unspecified obesity type, unspecified whether serious comorbidity present Ordered: 08/15/2021 documented as of this encounter Visit Diagnoses Not on filedocumented in this encounter Care Teams Touring Production Manager Relationship Specialty Start Date End Date Zoraida Ordoñez MD [address] [place] [address] PCP - General Family Medicine 08/13/21 09/25/21 documented as of this encounter
--- OUTSIDE RECORDS SUMMARY | 2024-01-04 14:47 | XMS_ITS | Encounter Summary ---
Author Organization [facility] [place] [address] Care Team Providers Care Bb Shot Packer Name Role Phone JAY Ann, Cassidy Primary Care Provider [phone] Encounter Details Date Type Department Care Team ([facility] Contact Info) Description 09/04/2014 External Results [place] [address] Song Allen MD [facility] [place] [place] [address] Social History Tobacco Use Types Packs/Day Years [...] Upcoming Encounters Date Type Department Care Team ([facility] Contact Info) Description 01/23/2024 2:00 PM EDT Office Visit [facility] [place] [address] Kenneth Martin MD [facility] [place] [address] 02/19/2024 1:00 PM EST Office [place] [address] Mike Ko MD [facility] [place] [address] documented as of this encounter Procedures Procedure [...] on filedocumented in this encounter Care Teams Bb Shot Packer Relationship Specialty Start Date End Date Cassidy Ware PA PCP - General 09/04/14 08/26/15 documented as of this encounter
--- OUTSIDE RECORDS SUMMARY | 2024-01-04 14:47 | XMS_ITS | Encounter Summary ---
[place] [address] Care Team Providers Care Resource Director Name Role Phone Glenys eHrnandez APRN Primary Care Provider [phone] Encounter Details Date Type Department Care Team (Late Contact Info) Description 09/20/2021 Telephone Weight and Wellness at [address] [phone] Suzi Reid Social History Tobacco [...] Office Visit [facility] [place] [address] Kenneth Martin MD [facility] [place] [address] 02/19/2024 1:00 PM EST Office Visit [place] [phone] Mike Ko MD [facility] [place] [place] [address] documented as of this encounter Visit Diagnoses Not on filedocumented in this encounter Care Teams Resource Director Relationship Specialty Start Date End Date Glenys Hernandez APRN [address] [place] [address] PCP - General Family Medicine 09/26/21 12/28/22 documented as of this encounter
--- OUTSIDE RECORDS SUMMARY | 2024-01-04 14:47 | XMS_ITS | Encounter Summary ---
Author Organization [facility] [place] [address] Care Team Providers Care Flatbed Company Driver Name Role Phone Glenys Hernandez APRN Primary Care Provider [phone] Encounter Details Date Type Department Care Team ([facility] Contact Info) Description 12/26/2021 Telephone Weight and Wellness at [address] [phone] Светлана Villasenor, MANOJ Social History [...] PM EDT [facility] Assistant Professor Of Spanish Pre-telemedicine Visit Phone Note Aydee Johns 1965 [x] Patient was not reached Patient was reached and the following information was reviewed/obtained per protocol: [] Confirmed patient name and date of [] Confirmed ZOOM downloaded and functioning [] ZOOM appointment link sent if no MyDH [] Phone number to be reached is: [phone] REVIEW: [] Review of patient medications completed [...] [facility] at [place] [phone] Kenneth Martin MD [facility] [place] [address] 02/19/2024 1:00 PM EST Office [place] [address] Mike Ko MD [facility] [place] [address] documented as of this encounter Goals Goal [...] on filedocumented in this encounter Care Teams Flatbed Company Driver Relationship Specialty Start Date End Date Glenys Hernandez APRN [address] [place] [address] PCP - General Family Medicine 09/26/21 12/28/22 documented as of this encounter
--- OUTSIDE RECORDS SUMMARY | 2024-01-04 14:47 | XMS_ITS | Encounter Summary ---
Author Organization [facility] Address [facility] [place] [id number] Care Team Providers Care Chief Of Planning Name Role Phone Glenys Hernandez APRN Primary Care Provider [phone] Reason for Referral * Consultation (Routine) - Closed Specialty Diagnoses / Procedures Referred By Contac t Referred To Contact Weight and Wellness Diagnoses Class 2 severe obesity with serious comorbidity and body mass index (BMI) of 39.0 to 39.9 in adult, unspecified obesity type Codie Weinberg MD [facility] [place] [address] [facility] [address] [place] [address] Referral ID Status Reason Start Date Expiration Date V isits Requested Visits Authorized [id number] Closed Consult, Test & Treat 10/09/2021 10/09/2022 1 1 * Consultation (Routine) - Closed Specialty Diagnoses / Procedures Referred By Contac t Referred To Contact Sleep Center Diagnoses Class 2 severe obesity with serious comorbidity and body mass index (BMI) of 39.0 to 39.9 in adult, unspecified obesity type Codie Weinberg MD [facility] [place] [address] [facility] Sleep [facility] [address] [place] [address] Referral ID Status Reason Start Date Expiration Date V isits Requested Visits Authorized [id number] Closed Consult, Test & Treat 10/06/2021 10/06/2022 1 1 Reason for Visit * Consultation (Routine) - Closed Specialty Diagnoses / Procedures Referred By Contac t Referred To Contact Weight and Wellness Diagnoses Morbid (severe) obesity due to excess calories morbid obesity Procedures see notes will need diet and psych evals Cele Calloway APRN [facility] [place] [address] [facility] [address] [place] [phone] Referral ID Status Reason Start Date Expiration Date V isits Requested Visits Authorized [id number] Closed Consult, Test & Treat 09/20/2021 09/20/2022 1 1 Encounter Details Date Type Department Care Team (Late st Contact Info) Description 10/06/2021 11:00 AM EDT TH Visit (TeleHealth) Weight and Wellness at [address] [phone] Codie Weinberg MD [facility] DR M[address] [facility] [place] [id number] Class 2 severe obesity with serious comorbidity [...] were not seen in the office, OUR TANK WORKER WILL CALL YOU TO SCHEDULE THESE VISITS. If you donot hear from us within a week, please call us at: [phone]. Below is some additional information/resources on this [...] on all of these pillars, and each steam crane operator, will help you set achievable, actionable goals, [...] the disease of obesity) Appetite control The manager editorial, The GoGetter and The Sleepy Executive [facility] video Sleep apnea and weight https://www.sleepfoundation.org/sleep-apnea/gwcumb-cmki-zyi-sleep-apnea Insulin resistance and weight https://obesitymedicine.org/avrvpzp-xlj-friclpo-resistance/ https://www.secondnature.io/us/guides/diabetes/rxshsfx-oucrmuncpy-cknnht-gain Dr. Sony Acuna: Fasting as a Therapeutic Option for Weight Loss - FrameBuzzTube Https://www.youFrequencyube.com/watch?v=af9rjyfk0gI https://www.Yield Softwareube.com/watch?v=95Sie4HoROG The Mediterranean Diet https://BrightQube.org/ https://www.RES Software.eastman.edu/blog/y-nbbsgugtw-omdyd-it-gcy-qbchwnamracmv-diet- 0372321982872 An important thing to remember as you [...] are significant. If you cannot complete this custodial. Bring a log of at least 2 [...] a general recommendation for all patients. Your field clerk and provider will help make more specific [...] increasing mindfulness throughout the day. Your health cricket coach is well-equipped to guide you to find something to look forward to everyday. Eating behaviors: many people benefit from restricting the hours in which they eat. You can choose an eating window of 8-12 hours to start. Make a pact with yourself that you will not take in anything with caloric content outside this window. Your field clerk may make further recommendations documented in this [...] this video visit, pt is located at: [facility] [place] Patient Name: Aydee Johns Date of : 1965 Age: 56 y.o. Referring provider: Cele Calloway Dear Glenys Hernandez APRN, Cele Calloway Thank you for referring Aydee Johns to the [facility]. Aydee Johns presented to the [facility] for a consultative visit regarding obesity management. [...] female with uncontrolled obesity who presented to [facility] today for medical evaluation with associated co-morbidities [...] IFG. No flowsheet data found. 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 [facility] PHQ-2 08/27/2015 Over the LAST 2 WEEKS, [...] Knee to feet bilaterally secondary to Gilda Sullivan, decreased sensation to kimberly arms as well [...] found for: FERRITIN No results found for: [id number] No results found for: 25OHVITD Liver Fibrosis [...] spent a total of 45 minutes in swak-vw-arxv discussion/counseling regarding the diagnosis of obesity, interventions [...] are significant. If you cannot complete this custodial. Bring a log of at least 2 weekdays and one weekend day to review. Care pathway: Pathway: [facility] PATHWAY - ADULT 10/09/2021 Pre- Bariatric Surgery Activate I spoke with Aydee about opportunities to participate in research and to be contacted by our research assistant facility manager. They indicated that they are: [] INTERESTED [] NOT INTERESTED // [x] NOT ADDRESSED [facility] Initial Responses 09/26/2021 PHQ-2 SubScore - PHQ-9 [...] Office Visit [place] [phone] Kenneth Martin MD [facility] [place] [address] 02/19/2024 1:00 PM EST Office [place] [address] Mike Ko MD [facility] [place] [address] Scheduled Referrals Name Type Priority Associated Diagnoses Orde r Schedule Referral to Sleep Disorders Center Outpatient Referral Routine Class 2 severe obesity with serious comorbidity and body mass index (BMI) of 39.0 to 39.9 in adult, unspecified obesity type Ordered: 10/06/2021 Amb Referral to [facility] Psych Evaluation Outpatient Referral Routine Class 2 [...] hyperglyceridemia documented in this encounter Care Teams Chief Of Planning Relationship Specialty Start Date End Date Glenys Hernandez, JL [address] [place] [address] PCP - General Family Medicine 09/26/21 12/28/22 documented as of this encounter
--- OUTSIDE RECORDS SUMMARY | 2024-01-04 14:47 | XMS_ITS | Encounter Summary ---
Author Organization Counts Include [facility] [place] [address] Care Team Providers Care Driver License Technician Name Role Phone Nick Menendez MD Primary Care Provider Encounter Details Date Type Department Care Team ([facility] Contact Info) Description 08/24/2020 9:45 AM EDT Telephone Pre-Admission Testing at [facility] [place] [address] Social History Tobacco Use Types [...] []Yes [x]No Have you traveled outside the [facility] in the PAST 14 DAYS? []Yes [...] Office Visit [facility] [place] [phone] Kenneth Martin MD [facility] [place] [address] 02/19/2024 1:00 PM EST Office Visit [place] [address] Mike Ko MD [facility] [place] [address] documented as of this encounter Visit Diagnoses Not on filedocumented in this encounter Care Teams Driver License Technician Relationship Specialty Start Date End Date Nick Menendez MD [address] [address] PCP - General General Internal Medicine 03/06/1608/12 documented as of this encounter
--- OUTSIDE RECORDS SUMMARY | 2024-01-04 14:47 | XMS_ITS | Encounter Summary ---
Author Organization [facility] [place] [address] Care Team Providers Care Chef Broiler Or Fry Name Role Phone Glenys Hernandez APRN Primary Care Provider [phone] Encounter Details Date Type Department Care Team ([facility] Contact Info) Description 12/07/2021 10:30 AM EDT TH Visit (TeleHealth) Weight and Wellness at [facility] [address] [place] [address] [facility] [place] [address] Adult BMI 39.0-39.9 kg/sq m Social History [...] was at home at the following address: [place] [id number] [place] [address] Weight Today: Wt Readings from Last 3 [...] adjust meals See previous notes from this insurance writer and [facility] provider for full account Typical Dietary [...] [] Needs additional fuv scheduled with this insurance writer in Return for F/U already scheduled. (OR) [x] Currently scheduled for: [x] 1st consecutive monthly nutrition visit [x] 2nd consecutive monthly nutrition visit [x] 3rd consecutive monthly nutrition visit (OR) [] Patient has met requirement of 3 consecutive monthly nutrition visits but agrees that ongoing support would be helpful and feasible. Above determined to the best ability of this insurance writer. Patient will contact bariatric surgery team [...] Office Visit [facility] [place] [address] Kenneth Martin MD [facility] [place] [address] 02/19/2024 1:00 PM EST Office [place] [address] Mike Ko MD [facility] [place] [address] documented as of this encounter Goals Goal [...] adult documented in this encounter Care Teams Chef Broiler Or Fry Relationship Specialty Start Date End Date Glenys Hernandez, PUBLIC STENOGRAPHER [address] [place] [address] PCP - General Family Medicine 09/26/21 12/28/22 documented as of this encounter
--- OUTSIDE RECORDS SUMMARY | 2024-01-04 14:47 | XMS_ITS | Encounter Summary ---
[place] [address] Care Team Providers Care Skidway Man Name Role Phone JAY Ann Nataliya Primary Care Provider [phone] Reason for Visit * Reason Comments Advice Only bbr consult * Consultation (Routine) - Closed Specialty Diagnoses / Procedures Referred By Contashu t Referred To Contact Plastic Surgery Diagnoses Macromastia, breast reduction Cassidy Ware PA [address] [place] [phone] [facility] Plastic Surg [address] [place] [phone] Referral ID Status Reason Start Date Expiration Date V isits Requested Visits Authorized [id number] Closed Consult, [facility] PCP Updated and/or Approved 10/13/2015 10/12/2016 1 1 Encounter Details Date Type Department Care Team (Late st Contact Info) Description 10/20/2015 9:30 AM EDT Office [place] [address] Nain Catherine MD [facility] [address] PLASTIC SURGERY [place], [place] [id number] Macromastia Social History Tobacco Use Types Packs/Day [...] appointment. Feel free to call our office [phone] if you have any questions or concerns. [...] correct her physical symptomatolgy. She watched the vpod.tv video on breast reduction, and was provided [...] surgery is best done at a realistic long-term stable weight. We talked about the outpatient [...] revisions for scarring or asymmetry.) Restrepo or [place] Pattern Incision: More scarring on breast, but [...] Timeframe: Elective Procedure: Bilateral breast reduction CPT: 87782 Surgical Technique: Restrepo Surgical site: Breasts Side: [...] aspirin products (unless otherwise advised by patient's PCP/Appliance Adjuster for cardiac symptoms), fish oil, Vitamin E [...] Office Visit [place] [address] Kenneth Martin MD [facility] [place] [address] 02/19/2024 1:00 PM EST Office [place] [address] Mike Ko MD [facility] [place] [address] documented as of this encounter Visit Diagnoses Diagnosis Macromastia Hypertrophy of breast documented in this encounter Care Teams Skidway Man Relationship Specialty Start Date End Date Cassidy Ware PA PCP - General Family Medicine 10/12/15 03/05/16 documented as of this encounter
--- OUTSIDE RECORDS SUMMARY | 2024-01-04 14:47 | XMS_ITS | Encounter Summary ---
Author Organization [facility] [place] [address] Care Team Providers Care Waiter/Waitress Second Class Name Role Phone JAY Ann, Cassidy Primary Care Provider [phone] Encounter Details Date Type Department Care Team ([facility] Contact Info) Description 02/22/2015 2:30 PM EST Office [place] [address] Song Allen MD [facility] [place] [address] Chronic pain; Bilateral leg paresthesia Social History [...] sleep apnea. She said she saw a hay farmer locally through her PCP. She said she [...] History: She lives with her cousin in [place]. She does not currently work due to pain. She says she is looking into getting disability. She has been denied. She smokes a pack a day. She does not drink alcohol. 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 On physical [...] deltoids. Samuel-Hallpike to the left was negative. Algoma-Hallpike to the right noted some brief severe [...] question of fibromyalgia. She could see her hay farmer locally or we could always get a Rheumatology opinion here at [facility] for her chronic pain and question Fibromyalgia [...] Office Visit [facility] [place] [address] Kenneth Martin MD [facility] [place] [address] 02/19/2024 1:00 PM EST Office [place] [address] Mike Ko MD [facility] [place] [address] documented as of this encounter Visit Diagnoses Diagnosis Chronic pain Other chronic pain Bilateral leg paresthesia Disturbance of skin sensation documented in this encounter Care Teams Waiter/Waitress Second Class Relationship Specialty Start Date End Date Cassidy Ware PA PCP - General 09/04/14 08/26/15 documented as of this encounter
--- OUTSIDE RECORDS SUMMARY | 2024-01-04 14:47 | XMS_ITS | Encounter Summary ---
[facility] [place] [id number] Care Team Providers Care Vp Digital Marketing Name Role Phone Nick Menendez MD Primary Care Provider [phone] Encounter Details Date Type Department Care Team (Late Contact Info) Description 03/06/2016 External Results Neurology at [place] [phone] Song Allen MD [facility] [place] [address] Social History Tobacco Use Types Packs/Day Years [...] Office Visit [place] [address] Kenneth Martin MD [facility] [address] 02/19/2024 1:00 PM EST Office [place] [address] Mike Ko MD [facility] [address] documented as of this encounter Procedures Procedure Name Priority Date/Time Associated Diagnosis Comments EMG SCAN Routine 03/06/2016 documented in this encounter Results * Scan Doc: EMG (03/06/2016) Song Allen MD MEDIA MGR SCAN EXT O RDR/RSLT documented in this encounter Visit Diagnoses Not on filedocumented in this encounter Care Teams Vp Digital Marketing Relationship Specialty Start Date End Date Nick Menendez MD [address] [place] [address] PCP - General General Internal Medicine 03/06/1608/12 documented as of this encounter
--- OUTSIDE RECORDS SUMMARY | 2024-01-04 14:47 | XMS_ITS | Encounter Summary ---
[place] [address] Care Team Providers Care Histology Supervisor Name Role Phone Nick Menendez MD Primary Care Provider [phone] Encounter Details Date Type Department Care Team (Late st Contact Info) Description 07/11/2016 Telephone [place] [address] Liz Helm Social History Tobacco Use Types [...] stated that she lost the form to pick up driver her certified letter.. She asked me to [...] Visit [facility] [place] [address] Kenneth Martin MD [facility] [place] [address] 02/19/2024 1:00 PM EST Office [place] [address] Mike Ko MD [facility] [place] [address] documented as of this encounter Visit Diagnoses Not on filedocumented in this encounter Care Teams Histology Supervisor Relationship Specialty Start Date End Date Nick Menendez MD [address] [place] [address] PCP - General General Internal Medicine 03/06/1608/12 documented as of this encounter
--- OUTSIDE RECORDS SUMMARY | 2024-01-04 14:47 | XMS_ITS | Encounter Summary ---
Author Organization Counts Include [facility] [place] [address] Care Team Providers Care Client Technologies Specialist Name Role Phone JAY Ann, Cassidy Primary Care Provider [phone] Reason for Visit * Reason Comments Obesity Encounter Details Date Type Department Care Team ([facility] Contact Info) Description 10/26/2015 1:30 PM EDT Office Visit General Surgery at [address] [address] Juan David Mcfarlane MD [address] [place] [address] Morbid obesity due to excess calories; Body [...] assessment. I previously met her at a [facility] informational session on 04/26/15. To summarize, Aydee is a 50 y.o. 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 Her Body mass index is36.46 kg/(m^2). (ESX=626vjg, EBW=89lbs). Additional medical problems include obstructive sleep apnea on CPAP, colon polyps, hyperlipidemia, GERD, depression, tobacco abuse, and anxiety. Aydee explainsthat she contracted a viral illness in 2011 while on a trip in [place]. Following that she developedweakness and pain in [...] up with the weight loss program through [facility] and the [facility] to begin the process. She understands [...] Office Visit [place] [address] Kenneth Martin MD [facility] [place] [address] 02/19/2024 1:00 PM EST Office [place] [address] Mike Ko MD [facility] [place] [address] documented as of this encounter Visit Diagnoses Diagnosis Morbid obesity due to excess calories Body mass index (BMI) of 36.0-36.9 in adult Body Mass Index 36.0-36.9, adult Obstructive sleep apnea Obstructive sleep apnea (adult) (pediatric) Gastroesophageal reflux disease, esophagitis presence not specified documented in this encounter Care Teams Client Technologies Specialist Relationship Specialty Start Date End Date Cassidy Ware PA PCP - General Family Medicine 10/12/15 03/05/16 documented as of this encounter
--- OUTSIDE RECORDS SUMMARY | 2024-01-04 14:47 | XMS_ITS | Encounter Summary ---
Author Organization [facility] [place] [address] Care Team Providers Care Soft Metals Engraver Hand Name Role Phone Glenys Hernandez APRN Primary Care Provider [phone] Encounter Details Date Type Department Care Team ([facility] Contact Info) Description 10/13/2021 Telephone [place] [address] Manuela Andrews RN Social History Tobacco Use [...] Muñoz along with her cliinical note to [facility] PT; [facility] as pt reports she is unable to schedule her therapy because [facility] PT had not recieived the referral. Faxed to [phone] (receipt received). Transferred pt's call to pain [...] Office Visit Pain and Spine Center at [place] [phone] Kenneth Martin MD [facility] [place] [address] 02/19/2024 1:00 PM EST Office [place] [address] Mike Ko MD [facility] [place] [address] documented as of this encounter Goals Goal [...] on filedocumented in this encounter Care Teams Soft Metals Engraver Hand Relationship Specialty Start Date End Date Glenys Hernandez APRN [address] [place] [address] PCP - General Family Medicine 09/26/21 12/28/22 documented as of this encounter
--- OUTSIDE RECORDS SUMMARY | 2024-01-04 14:47 | XMS_ITS | Encounter Summary ---
Author Organization [facility] [place] [address] Care Team Providers Care Loom Setter Name Role Phone Glenys Hernandez APRN Primary Care Provider [phone] Encounter Details Date Type Department Care Team ([facility] Contact Info) Description 10/05/2021 Telephone Weight and Wellness at [address] [address] Светлана Villasenor, MANOJ Social History [...] PM EDT [facility] Geosciences Professor Pre-telemedicine Visit Phone Note Aydee Johns 1965 [x] Patient was not reached Patient was reached and the following information was reviewed/obtained per protocol: [] Confirmed patient name and date of [] Confirmed ZOOM downloaded and functioning [] ZOOM appointment link sent if no MyDH [] Phone number to be reached is: [phone] REVIEW: [] Review of patient medications completed [...] Office Visit [facility] [place] [address] Kenneth Martin MD [facility] [place] [address] 02/19/2024 1:00 PM EST Office [place] [address] Mike Ko MD [facility] [place] [address] documented as of this encounter Visit Diagnoses Not on filedocumented in this encounter Care Teams Loom Setter Relationship Specialty Start Date End Date Glenys Hernandez APRN [address] [place] [address] PCP - General Family Medicine 09/26/21 12/28/22 documented as of this encounter
--- OUTSIDE RECORDS SUMMARY | 2024-01-04 14:47 | XMS_ITS | Encounter Summary ---
Author Organization [facility] Address [place] [id number] Care Team Providers Care Programmer Numerical Control Name Role Phone Sheila Cosby MD Primary Care Provider [phone] Reason for Visit * Consultation (Routine) - Closed Specialty Diagnoses / Procedures Referred By Mayda jalloh Referred To Contact Neurology Diagnoses Unspecified disturbances of skin sensation Other symptoms and signs involving cognitive functions and awareness Chronic pain syndrome Please have patient seen in MS clinic for ? MS ChazCassidy PA [address] [place] [address] Justin Mir MD [facility] [place] [address] Referral ID Status Reason Start Date Expiration Date V isits Requested Visits Authorized [id number] Closed PCP Updated and/or Approved 08/23/2015 08/22/2016 1 1 Encounter Details Date Type Department Care Team ([facility] Contact Info) Description 08/27/2015 8:30 AM EDT Office [place] [address] Justin Mir MD [facility] [place] [address] Neuritis Social History Tobacco Use Types Packs/Day [...] Mir MD - 08/27/2015 8:33 AM EDT [phone] 64 minutes Cassidy Ware Dear , Thank you for asking the [facility] to see your patient, Aydee Johns. She is a 50 y.o.woman being seen here to r/o MS. Her symptom is primarily numbness that is everywhere. She came with a list of symptoms, because my memory stinks. She has not worked in two years, because I have nonstop pain and numbness. She has seen in [facility]. She first noted the symptom in 2011. She said that she has had numbness with migraines similar to her current sensations of numbness, but these were usually associated with headahes. In 2011 she had a very severe viral illness contracted in [place], where she lived for 5 months, resulting [...] history, exam, and normal MRIs of the PIGEON FANCIER are consistent with a mild post-infectious neuropathy. [...] a mild myelopathy and the illness in [place] could have triggered a myelitis; if so, cervical spine MRI may reveal a parenchymal lesion, and you may wish to consider ordering this if it has not been performed since 2011. I don't think it needs to be repeated if is correct that it has already been done. MD Damaso Blanchard Professor of Neurology Department of Neurology [facility] [employer] and [address] [address] At least 40 minutes of this 64 [...] Office Visit Pain and Spine Center at [address] Kenneth Martin MD [facility] [place] [address] 02/19/2024 1:00 PM EST Office Visit Plastic Surgery at [place] [address] Mike Ko MD [facility] [place] [address] documented as of this encounter Visit Diagnoses Diagnosis Neuritis Neuralgia, neuritis, and radiculitis, unspecified documented in this encounter Care Teams Programmer Numerical Control Relationship Specialty Start Date End Date Sheila Cosby MD PCP - General Family Medicine 08/27/15 10/11/15 documented as of this encounter
--- OUTSIDE RECORDS SUMMARY | 2024-01-04 14:47 | XMS_ITS | Encounter Summary ---
Author Organization [facility] [place] [address] Care Team Providers Care Welder Manufacture Name Role Phone Nick Menendez MD Primary Care Provider [phone] Reason for Visit * Auth/Cert Specialty Diagnoses / Procedures Referred By Mayda t Referred To Contact Diagnoses SPONDYLOSIS, FORAMINAL STENOSIS Procedures PRO LAMINEC/FACETECT/FORAMIN, LUMBAR 1 SEG PRO LAMINEC/FACETECT/FORAMIN, EACH ADDNL LAMINECTOMY, FACETECTOMY & FORAMINOTOMY,LUMBAR, ONE LEVEL (WRVU 15.37) ADD'L INTERSPACES CX., THORACIC, LUMBAR (WRVU 3.47) Referral ID Status Reason Start Date Expiration Date Visits Re quested Visits Authorized [id number] 1 1 Encounter Details Date Type Department Care Team ([facility] Contact Info) Description 08/31/2020 10:53 AM EDT - 08/31/2020 1:06 PM EDT Surgery Operating Room [facility] [address] [facility] [place] [address] Homar Astudillo MD [address] [facility] [place] [address] LAMINECTOMY, FACETECTOMY & FORAMINOTOMY,LUMBAR, ONE LEVEL (WRVU [...] six weeks after surgery with a Physician???s Special Agent Secret Service at the surgeon???s office. You will have [...] to stop taking it. ??? Only take agjf-wlh-kbvnhmr or prescription medicine for pain, discomfort or [...] If you have any questions, please call [facility] Neurology and Neurosurgery at [phone], during business hours of Sunday through Sunday from 8:00 a.m. until 4:00 p.m. In case of emergency during non-business hours, please call the same main number and follow the prompts to page the neurosurgeon production tool engineer. SMOKING CESSATION INFORMATION: ??? [place] QUITLINE: ??? [place] QUITLINE: ??? [email or web address] If you smoke, stop now! Smoking may impede healing. MAKE SURE YOU: ??? Understand these instructions. ??? Will seek medical care if you are feeling poor, or get worse. ??? Will call the surgeon???s office with any questions or concerns at : [phone] The above information has been presented or [...] Astudillo MD - 08/31/2020 10:49 AM EDT [facility] [place] [address] Patient Name: Aydee Johns : [id number] MR#: [id number] Case Date: 08/31/2020 Case Scheduled Time: 1053 [...] Office Visit [place] [address] Kenneth Martin MD [facility] [place] [address] 02/19/2024 1:00 PM EST Office [place] [address] Mike Ko MD [facility] [place] [address] documented as of this encounter Procedures Procedure [...] Homar Astudillo MD IMG FLUORO ORDERABLE [address] [place], [place] documented in this encounter Visit Diagnoses [...] for scheduled level. Warning Vesicant/Irritant Medication , Routine, Indication for (Active or Suspected): Prophylaxis New Bag 08/31/2020 10:00 AM EDT 1,000 [...] for scheduled level. Warning Vesicant/Irritant Medication , Routine, Indication for (Active or Suspected): Prophylaxis 1000 (New Bag - Prov ider: Priti [...] MD) documented in this encounter Care Teams Welder Manufacture Relationship Specialty Start Date End Date Nick Menendez MD [address] [place] [address] PCP - General General Internal Medicine 03/06/1608/12 documented as of this encounter
--- OUTSIDE RECORDS SUMMARY | 2024-01-04 14:47 | XMS_ITS | Encounter Summary ---
Author Organization [facility] [place] [address] Care Team Providers Care Advance Seal Delivery System Maintainer Name Role Phone Nick Menendez MD Primary Care Provider [phone] Reason for Visit * Auth/Cert Specialty Diagnoses / Procedures Referred By Mayda t Referred To Contact Diagnoses SPONDYLOSIS, FORAMINAL STENOSIS Procedures PRO LAMINEC/FACETECT/FORAMIN, LUMBAR 1 SEG PRO LAMINEC/FACETECT/FORAMIN, EACH ADDNL LAMINECTOMY, FACETECTOMY & FORAMINOTOMY,LUMBAR, ONE LEVEL (WRVU 15.37) ADD'L INTERSPACES CX., THORACIC, LUMBAR (WRVU 3.47) Referral ID Status Reason Start Date Expiration Date Visits Re quested Visits Authorized [id number] 1 1 Encounter Details Date Type Department Care Team (Latest Contact Info) Description 08/31/2020 9:31 AM EDT - 08/31/2020 1:47 PM EDT Hospital Encounter Post Acute Care Unit at [facility] [address] [place] [address] Homar Astudillo MD [address] [facility] [place] [address] Lumbar spondylosis Discharge Disposition: Home Social History [...] six weeks after surgery with a Physician???s Florist Designer at the surgeon???s office. You will have [...] to stop taking it. ??? Only take iwis-lzl-gclighz or prescription medicine for pain, discomfort or [...] If you have any questions, please call [facility] Neurology and Neurosurgery at [phone], during business hours of Sunday through Sunday from 8:00 a.m. until 4:00 p.m. In case of emergency during non-business hours, please call the same main number and follow the prompts to page the neurosurgeon human resource professional. SMOKING CESSATION INFORMATION: ??? [place] QUITLINE: ??? [place] QUITLINE: ??? [email or web address] If you smoke, stop now! Smoking may impede healing. MAKE SURE YOU: ??? Understand these instructions. ??? Will seek medical care if you are feeling poor, or get worse. ??? Will call the surgeon???s office with any questions or concerns at : [phone] The above information has been presented or [...] Astudillo MD - 08/31/2020 10:49 AM EDT [facility] [place] [address] Patient Name: Aydee Johns : [id number] MR#: [id number] Case Date: 08/31/2020 Case Scheduled Time: 1053 [...] Office Visit Pain [place] [address] Kenneth Martin MD [facility] [place] [address] 02/19/2024 1:00 PM EST Office [place] [address] Mike Ko MD [facility] [place] [address] documented as of this encounter Procedures Procedure [...] Homar Astudillo MD IMG FLUORO ORDERABLE [address] [place], [place] documented in this encounter Visit Diagnoses [...] MD) documented in this encounter Care Teams Advance Seal Delivery System Maintainer Relationship Specialty Start Date End Date Nick Menendez MD [address] [place] [address] PCP - General General Internal Medicine 03/06/1608/12 documented as of this encounter
--- OUTSIDE RECORDS SUMMARY | 2024-01-04 14:47 | XMS_ITS | Encounter Summary ---
[place] [address] Care Team Providers Care Safety Scientist Name Role Phone Zoraida Ordoñez MD Primary Care Provider [phone] Reason for Referral * Consultation (Routine) - Closed Specialty Diagnoses / Procedures Referred By Mayda jalloh Referred To Contact [facility] Diagnoses Sciatica, unspecified laterality Chronic low back pain with sciatica, sciatica laterality unspecified, unspecified back pain laterality Low back & left leg pain/ h/o of lumbar surgery 08/2020w/Pikus/ MRI 01/2021 in eDH Harris Poon MD [address] [place] [address] [facility] [place] [address] Referral ID Status Reason Start Date Expiration Date V isits Requested Visits Authorized [id number] Closed Consult, Test & Treat PCP Updated and/or Approved 08/15/2021 08/15/2022 6 6 Encounter Details Date Type Department Care Team (Latest Contact Info) Description 08/15/2021 Transcribe Orders eDH Incoming Referrals [phone] Harris Poon MD [address] [place], [place] [id number] Sciatica, unspecified laterality; Chronic low back pain [...] Office Visit [facility] at [place] [phone] Kenneth Martin MD [facility] [place] [address] 02/19/2024 1:00 PM EST Office [place] [address] Mike Ko MD [facility] [place] [address] Scheduled Referrals Name Type Priority Associated Diagnoses [...] laterality documented in this encounter Care Teams Safety Scientist Relationship Specialty Start Date End Date Zoraida Ordoñez MD [address] [place] [address] PCP - General Family Medicine 08/13/21 09/25/21 documented as of this encounter
--- OUTSIDE RECORDS SUMMARY | 2024-01-04 14:47 | XMS_ITS | Encounter Summary ---
Author Organization [facility] [place] [address] Care Team Providers Care Orthodontic Treatment Coordinator Name Role Phone Nick Menendez MD Primary Care Provider [phone] Encounter Details Date Type Department Care Team (Late Contact Info) Description 07/14/2020 Ancillary Procedure Radiology at [facility] [address] [place] [address] Nain Bashir MD [address] [facility] [place] [address] Social History Tobacco Use Types Packs/Day Years [...] Office Visit [facility] [place] [address] Kenneth Martin MD [facility] [place] [address] 02/19/2024 1:00 PM EST Office Visit [place] [address] Mike Ko MD [facility] [place] [address] documented as of this encounter Procedures Procedure Name Priority Date/Time Associated Diagnosis Comments FILM LIBRARY STORAGE ONLY MR SPINE Routine 07/14/2020 12:00 AM EDT documented in this encounter Results * Film Library- Storage Only MR Spine (07/14/2020 12:00 AM EDT) Narrative [facility] - 07/19/2020 4:36 PM EDT This exam is auto-finalizing. It's purpose is for storage only. Nain Bashir MD IMG FILM LIBRARY OR DERABLES Performing Organization Address City/State/[facility] Co de Phone Number [place], [place] documented in this encounter Visit Diagnoses Not on filedocumented in this encounter Care Teams Orthodontic Treatment Coordinator Relationship Specialty Start Date End Date Nick Menendez MD [address] [place] [address] PCP - General General Internal Medicine 03/06/1608/12 documented as of this encounter
--- OUTSIDE RECORDS SUMMARY | 2024-01-04 14:47 | XMS_ITS | Encounter Summary ---
Author Organization [facility] [place] [address] Care Team Providers Care Lockstitch Cup Setter Name Role Phone Glenys Hernandez APRN Primary Care Provider [phone] Encounter Details Date Type Department Care Team ([facility] Contact Info) Description 11/17/2021 Telephone [place] [phone] Isatu Serna RN Social History Tobacco Use [...] triage phone line by Ashlyn Nunez from [facility]. She wanted to get a message to Minnie Muñoz APRN regarding Aydee. Per the message that Ashlyn left, Aydee attended one of the PT therapy sessions that was set up for her (referral from Ms. Toni APRN). When Aydee found out that the PT was for Nitesh technique, she refused to participate. She went for the evaluation, then called the [facility] rehab and said she won'tbe coming back. If we have any questions we can call Ashlyn at [phone] Milagros RN documented in this encounter Plan of Treatment Upcoming Encounters Date Type Department Care Team (Late st Contact Info) Description 01/23/2024 2:00 PM EDT Office Visit [place] [phone] Kenneth Martin MD [facility] [place] [address] 02/19/2024 1:00 PM EST Office [place] [address] Mike Ko MD [facility] [place] [address] documented as of this encounter Goals Goal [...] on filedocumented in this encounter Care Teams Lockstitch Cup Setter Relationship Specialty Start Date End Date Glenys Hernandez APRN [address] [place] [address] PCP - General Family Medicine 09/26/21 12/28/22 documented as of this encounter
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
--- OUTSIDE RECORDS SUMMARY | 2024-01-04 14:47 | XMS_ITS | Encounter Summary ---
Author Organization [facility] [place] [address] Care Team Providers Care Superior Court Clerk Name Role Phone Glenys Hernandez APRN Primary Care Provider [phone] Encounter Details Date Type Department Care Team (Late st Contact Info) Description 09/30/2021 External Results Weight and Wellness at [address] [address] Erin Gaines, RN Social History Tobacco Use [...] Office Visit [facility] [place] [address] Kenneth Martin MD [facility] [place] [address] 02/19/2024 1:00 PM EST Office [place] [address] Mike Ko MD [facility] [place] [address] documented as of this encounter Procedures Procedure Name Priority Date/Time Associated Diagnosis Comments [facility] EXTERNAL RESULT PANEL Routine 08/29/2021 documented in this encounter Results * (ABNORMAL) [facility] External Results (08/29/2021) Cholesterol, Total [...] on filedocumented in this encounter Care Teams Superior Court Clerk Relationship Specialty Start Date End Date Glenys Hernandez, JL [address] [place] [address] PCP - General Family Medicine 09/26/21 12/28/22 documented as of this encounter
--- OUTSIDE RECORDS SUMMARY | 2024-01-04 14:47 | XMS_ITS | Encounter Summary ---
[place] [address] Care Team Providers Care Boat Crew Deck Hand Name Role Phone JAY Ann, Cassidy Primary Care Provider [phone] Reason for Visit * Reason Onset Date Comments Other 01/24/2016 Other Encounter Details Date Type Department Care Team ([facility] st Contact Info) Description 01/24/2016 [place] [phone] Song Allen MD [facility] [place] [address] Other (Other) Social History Tobacco Use Types [...] / Relation to pt: Caller Contact Number: [phone] Best time to reach pt back: Anytime Reason for call: Patient called in stating the transportation compshaany needs the To fill out a PA for the transportation. Patient states we can call [phone] for more information. Patient states she would [...] Office Visit Pain and Spine Center at [address] Kenneth Martin MD [facility] [place] [place] [address] 02/19/2024 1:00 PM EST Office Visit Plastic Surgery at [place] [address] Mike Ko MD [facility] [place] [place] [address] documented as of this encounter Visit Diagnoses Not on filedocumented in this encounter Care Teams Boat Crew Deck Hand Relationship Specialty Start Date End Date Cassidy Ware PA PCP - General Family Medicine 10/12/15 03/05/16 documented as of this encounter
--- OUTSIDE RECORDS SUMMARY | 2024-01-04 14:47 | XMS_ITS | Encounter Summary ---
Author Organization [facility] [place] [address] Care Team Providers Care Manager Print Name Role Phone Nick Menendez MD Primary Care Provider [phone] Encounter Details Date Type Department Care Team (Late Contact Info) Description 01/25/2021 Ancillary Procedure Radiology at [facility] [address] [facility] [place] [address] Homar Astudillo MD [address] [facility] [place] [address] Social History Tobacco Use Types Packs/Day Years [...] Office Visit [place] [address] Kenneth Martin MD [facility] [place] [address] 02/19/2024 1:00 PM EST Office [place] [address] Mike Ko MD [facility] [place] [address] documented as of this encounter Procedures Procedure Name Priority Date/Time Associated Diagnosis Comments FILM LIBRARY STORAGE ONLY MR SPINE Routine 01/25/2021 12:00 AM EDT documented in this encounter Results * Film Library- Storage Only MR Spine (01/25/2021 12:00 AM EDT) Narrative [facility] - 01/26/2021 9:04 AM EDT This exam is auto-finalizing. It's purpose is for storage only. Homar Astudillo MD IMG FILM LIBRARY ORD ERABLES [place], [place] documented in this encounter Visit Diagnoses Not on filedocumented in this encounter Care Teams Manager Print Relationship Specialty Start Date End Date Nick Menendez MD [address] [place] [address] PCP - General General Internal Medicine 03/06/1608/12 documented as of this encounter
--- OUTSIDE RECORDS SUMMARY | 2024-01-04 14:47 | XMS_ITS | Encounter Summary ---
Author Organization [facility] [place] [address] Care Team Providers Care Tube Machine Operator Helper Name Role Phone Glenys Hernandez JL Primary Care Provider [phone] Reason for Referral * Physical Therapy (Routine) - Closed Specialty Diagnoses / Procedures Referred By Contac yeimi Referred To Contact Physical Therapy Diagnoses Radicular pain of left lower extremity Minnie Muñoz APRN [facility] [place] [address] Referral ID Status Reason Start Date Expiration Date V isits Requested Visits Authorized [id number] Closed Evaluate and Treat Non PCP 09/26/2021 [...] eD Harris Poon MD [address] [place] [address] [facility] [place] [address] Referral ID Status Reason Start Date Expiration Date V isits Requested Visits Authorized [id number] Closed Consult, Test & Treat PCP Updated and/or Approved 08/15/2021 08/15/2022 6 6 Encounter Details Date Type Department Care Team (Late st Contact Info) Description 09/26/2021 1:15 PM EDT Office Visit [place] [address] Minnie Muñoz APRN [facility] [place] [address] Radicular pain of left lower extremity (Primary [...] from the original note were not included. [facility] Date of [...] August 2020 and then she tripped over [facility] and had recurrent leg symptoms. She feels that her symptoms are also associated with some neuropathy in her feet. Pain can be anywhere from 4-10 on a scale of 10. She is done [facility] [place] [facility] and Tylenol she would like [...] Component Summary 21.32 PAST THERAPIES: PT in [place] Chiropractor Tylenol Functional Status Work-- disabled ADL's---difficulty [...] Knee to feet bilaterally secondary to [place], decreased sensation to kimberly arms as well ??? Obstructive sleep apnea 11/03/2015 ??? Stress disorder, posttraumatic 11/04/2015 Past Surgical History: Past Surgical History: Procedure Laterality Date ??? APPENDECTOMY ??? CHOLECYSTECTOMY ??? COLECTOMY ??? COLONOSCOPY ??? PRO LAMINEC/FACETECT/FORAMIN, LUMBAR 1 SEG Left 08/31/2020 LAMINECTOMY, FACETECTOMY & FORAMINOTOMY,LUMBAR, ONE LEVEL (WRVU 15.37) performed by Homar Astudillo MD at [facility] MA[facility] OR Review of Systems: Denies [...] y.o. year-old female who presents to the [facility] With low [...] I also gave her a referral to [facility] where she can do some Nitesh therapy with Ashlyn Butler. She is going to follow-up with me 4 to 6 weeks after her injection. Thank you Dr. Poon for allowing my participation in Aydee Johns's care. Minnie Muñoz, MS, CHUTE OPERATOR-BC, WILDLIFE OFFICER Nurse practitioner Pain management [facility] documented in this encounter Plan of Treatment Upcoming Encounters Date Type Department Care Team (Late st Contact Info) Description 01/23/2024 2:00 PM EDT Office Visit Pain and Spine Center at [place] [phone] Kenneth Martin MD [facility] [place] [address] 02/19/2024 1:00 PM EST Office [place] [address] Mike Ko MD [facility] [place] [address] Scheduled Referrals Name Type Priority Associated Diagnoses Orde r Schedule Referral to Physical Therapy Outpatient Referral Routine Radicular pain of left lower extremity Ordered: 09/26/2021 documented as of this encounter Visit Diagnoses Diagnosis Radicular pain of left lower extremity- Primary Thoracic or lumbosacral neuritis or radiculitis, unspecified documented in this encounter Care Teams Tube Machine Operator Helper Relationship Specialty Start Date End Date Glenys Hernandez APRN [address] [place] [address] PCP - General Family Medicine 6/20/22 9/21/23 documented as of this encounter
--- OUTSIDE RECORDS SUMMARY | 2024-01-04 14:47 | XMS_ITS | Encounter Summary ---
[place] [address] Care Team Providers Care Risk Adjustment Specialist Name Role Phone Sheila Cosby MD Primary Care Provider [phone] Encounter Details Date Type Department Care Team ([facility] Contact Info) Description 09/08/2015 [place] [phone] Cassidy Ware PA [address] [place] [address] Social History Tobacco Use Types Packs/Day Years [...] Office Visit [place] [address] Kenneth Martin MD [facility] [place] [address] 02/19/2024 1:00 PM EST Office [place] [address] Mike Ko MD [facility] [place] [address] documented as of this encounter Visit Diagnoses Not on filedocumented in this encounter Care Teams Risk Adjustment Specialist Relationship Specialty Start Date End Date Sheila Cosby MD PCP - General Family Medicine 08/27/15 10/11/15 documented as of this encounter
--- OUTSIDE RECORDS SUMMARY | 2024-01-04 14:47 | XMS_ITS | Encounter Summary ---
Author Organization [facility] [address] Care Team Providers Care Manager Company Name Role Phone JAY Ann, Cassidy Primary Care Provider [phone] Reason for Referral * MRI/CAT Scan - Specialty Diagnoses / Procedures Referred By Mayda jalloh Referred To Contact Procedures NM myocardial perfusion - stress & rest Christian Pineda Jr., MD [address] [place] [address] Referral ID Status Reason Start Date Expiration Date V isits Requested Visits Authorized [id number] 01/04/2015 07/03/2015 1 1 Reason for Visit * Reason Comments Chest Pain Encounter Details Date Type Department Care Team (Late st Contact Info) Description 01/04/2015 9:00 AM EDT Procedure visit [facility] [address] [place] [phone] Christian Pineda Jr., MD [address] [place] [address] Non-cardiac chest pain Social History Tobacco Use [...] Office Visit [facility] [place] [address] Kenneth Martin MD [facility] [place] [address] 02/19/2024 1:00 PM EST Office [place] [address] Mike Ko MD [facility] [place] [address] documented as of this encounter Procedures Procedure Name Priority Date/Time Associated Diagnosis Comments NM EXERCISE STRESS AND REST MYOCARDIAL PERFUSION Routine 01/04/2015 documented in this encounter Results * NM myocardial perfusion - stress & rest (01/04/2015) Anatomical Region Laterality Modality Other Narrative 01/04/2015 [facility] MIBI Stress Test- Final Report ?Aydee Johns [address] [facility], [address] [facility] [place] [address] Primary Physician: JAY NGUYEN (General) ? Indication: [...] Spect-normal Electronically signed: Christian Pineda Jr, MD [facility] ??Date: 01/04/2015 Historical Provider MD HAN NM ORDERABLES documented in this encounter Visit Diagnoses Diagnosis Non-cardiac chest pain Other chest pain documented in this encounter Care Teams Manager Company Relationship Specialty Start Date End Date Cassidy Ware PA PCP - General 09/04/14 08/26/15 documented as of this encounter
--- OUTSIDE RECORDS SUMMARY | 2024-01-04 14:47 | XMS_ITS | Encounter Summary ---
Author Organization [facility] [place] [address] Care Team Providers Care Water Conservation Specialist Name Role Phone Glenys Hernandez APRN Primary Care Provider [phone] Encounter Details Date Type Department Care Team ([facility] Contact Info) Description 12/28/2021 10:30 AM EDT TH Visit (TeleHealth) Weight and Wellness at [facility] [address] [place] [address] [facility] [place] [address] Adult BMI 39.0-39.9 kg/sq m Social History [...] was at home at the following address: [address] [address] [place] [address] Weight Today: Wt Readings from Last 3 Encounters: 12/27/21 104.8 kg (231 lb) 10/06/21 105.2 kg (232 lb) 09/26/21 104.3 kg (230 lb) BMI Readings from Last 3 Encounters: 12/27/21 39.65 kg/m?? 10/06/21 39.82 kg/m?? 09/26/21 39.48 kg/m?? Interview: hard - eating during pain; increased water - very little; occasional smoothie; Weight Loss History: See previous notes from this magnetic tape typewriter operator and [facility] provider for full account Typical Dietary [...] [x] Needs additional fuv scheduled with this magnetic tape typewriter operator in Return in about 2 months (around 02/27/2022)for Paula CHOWDHURY. (OR) [x] Currently scheduled for: [x] 1st consecutive monthly nutrition visit [x] 2nd consecutive monthly nutrition visit [x] 3rd consecutive monthly nutrition visit (OR) [] Patient has met requirement of 3 consecutive monthly nutrition visits but agrees that ongoing support would be helpful and feasible. Above determined to the best ability of this magnetic tape typewriter operator. Patient will contact bariatric surgery team for [...] Office Visit [place] [address] Kenneth Martin MD [facility] [place] [address] 02/19/2024 1:00 PM EST Office [place] [address] Mike Ko MD [facility] [place] [address] documented as of this encounter Goals Goal [...] adult documented in this encounter Care Teams Water Conservation Specialist Relationship Specialty Start Date End Date Glenys Hernandez APRN [address] [place] [address] PCP - General Family Medicine 09/26/21 12/28/22 documented as of this encounter
--- OUTSIDE RECORDS SUMMARY | 2024-01-04 14:47 | XMS_ITS | Encounter Summary ---
[place] [address] Care Team Providers Care Household Refrigerator Mechanic Name Role Phone Zoraida Ordoñez MD Primary Care Provider [phone] Reason for Referral * Consultation (Routine) - Closed Specialty Diagnoses / Procedures Referred By Mayda jalloh Referred To Contact General Surgery Diagnoses Weight loss Obesity, unspecified classification, unspecified obesity type, unspecified whether serious comorbidity present Harris Poon MD [address] [place] [address] [facility] [place] [place] Gen Surgery [address] [place] [id number] Referral ID Status Reason Start Date Expiration Date V isits Requested Visits Authorized [id number] Closed Consult, Test & Treat PCP Updated and/or Approved 08/15/2021 08/15/2022 6 6 Encounter Details Date Type Department Care Team (Latest Contact Info) Description 08/15/2021 Transcribe Orders eDH Incoming Referrals [phone] Harris Poon MD [address] [place] [address] Weight loss; Obesity, unspecified classification, [...] Office Visit [facility] [place] [address] Kenneth Martin MD [facility] [place] [address] 02/19/2024 1:00 PM EST Office [place] [address] Mike Ko MD [facility] [place] [address] Scheduled Referrals Name Type Priority Associated Diagnoses Orde r Schedule Referral to Bariatric Surgery Program Outpatient Referral Routine Weight loss Obesity, unspecified classification, unspecified obesity type, unspecified whether serious comorbidity present Ordered: 08/15/2021 documented as of this encounter Visit Diagnoses Diagnosis Weight loss Loss of weight Obesity, unspecified classification, unspecified obesity type, unspecified whether serious comorbidity present documented in this encounter Care Teams Household Refrigerator Mechanic Relationship Specialty Start Date End Date Zoraida Ordoñez MD [address] [place] [address] PCP - General Family Medicine 08/13/21 09/25/21 documented as of this encounter
--- OUTSIDE RECORDS SUMMARY | 2024-01-04 14:47 | XMS_ITS | Encounter Summary ---
Author Organization [facility] [address] Care Team Providers Care Biomedical Engineering Technologist Name Role Phone Glenys Hernandez APRN Primary Care Provider [phone] Encounter Details Date Type Department Care Team ([facility] Contact Info) Description 12/27/2021 2:30 PM EDT TH Visit (TeleHealth) Weight and Wellness at [facility] [address] [place] [phone] Codie Weinberg MD [facility] DR [facility] [address] Elevated cholesterol; High triglycerides; Obstructive sleep apnea; [...] logging food using an jayesh such as SignStorey or Stampt, paper and pencil is also a good [...] visit, pt is located at: Home in [facility] [place] Patient Name: Aydee Johns Date of : [...] GERD, IFG, migraine. This is Visit #2 [facility] visit for this 56 y.o. patient. 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 Since 2011, steadilygained. Initial weight 10/09/21: 232 lbs 12/27/2021, [address] [facility] Team: Sita Sandoval RD HPI Had lab [...] day, high pain level, low appetite 2 lithuanian sausages with white rice in a tortilla Drinking - coffee with stevia and hazelnut creamer Jaime checklist: + smoker - quit date Sunday No ETOH, no drugs ? PATRICIA - PCP arranging sleep appt No major psych hx No soda drinking Pap 09/2021 Adrian scheduled 04/2022 Contraception - abstinence and menopause. AOM: Currently taking: none AOM HX:N/A Medication C/I: Any h/o pancreatitis? NO Any h/o kidney stones? NO Any h/o or FHx of thyroid CA (MTC?) NO Any h/o kidney disease/failure? NO Any h/o glaucoma? YES - had laser procedure ?? Gynecologic: using/taking reliable contraception? Menopause COMORBIDITIES ADDRESSED: PATRICIA + with appliance ([facility]) HTN NO HL YES FLD [...] to sleep med - has worked with [facility] - Dr. West Self-monitoring: Food log Groups of interest: []HLP-ES [] HLP-MS [] HLP-LS []Culinary []ACT []Monthly Lifestyle Classes Discussion 12/27/21: Current pillars reviewed. BSP and requirements discussed. Paperwork reviewed as well. Major barrier is smoking and pt has quit date. Knows to call BS about whether nicotine patches are ok. Will also reach out about PCP letter of support. [facility] PATHWAY - ADULT 10/09/2021 Pre- Bariatric Surgery [...] found for: GLUCFASTING No results found for: LFDEFHTL36 No results found for: 25OHVITD No results [...] me. 3 min chart review 30 min [id number] Visit time 5 min Documentation time I [...] Office Visit [place] [address] Kenneth Martin MD [facility] [place] [address] 02/19/2024 1:00 PM EST Office [place] [phone] Mike Ko MD [facility] [place] [address] documented as of this encounter Goals Goal [...] type documented in this encounter Care Teams Biomedical Engineering Technologist Relationship Specialty Start Date End Date Glenys Hernandez, ALARM INSTALLATION TECHNICIAN [address] [place] [address] PCP - General Family Medicine 09/26/21 12/28/22 documented as of this encounter
--- OUTSIDE RECORDS SUMMARY | 2024-01-04 14:47 | XMS_ITS | Encounter Summary ---
Author Organization [facility] [place] [address] Care Team Providers Care Getter Filler Name Role Phone JAY Ann, Cassidy Primary Care Provider [phone] Reason for Visit * Reason Onset Date Comments Other 12/25/2014 Encounter Details Date Type Department Care Team ([facility] st Contact Info) Description 12/25/2014 [place] [phone] Song Allen MD [facility] [place] [address] Other Social History Tobacco Use Types Packs/Day [...] doesn't work. Instructed patient that Dr. Allen web analytics specialist Obdulio will be calling her to set [...] Office Visit [place] [address] Kenneth Martin MD [facility] [place] [address] 02/19/2024 1:00 PM EST Office [place] [address] Mike Ko MD [facility] [place] [address] documented as of this encounter Visit Diagnoses Not on filedocumented in this encounter Care Teams Getter Filler Relationship Specialty Start Date End Date Cassidy Ware PA PCP - General 09/04/14 08/26/15 documented as of this encounter
--- OUTSIDE RECORDS SUMMARY | 2024-01-04 14:47 | XMS_ITS | Encounter Summary ---
[place] [address] Care Team Providers Care Parts Manager Name Role Phone Nick Menendez MD Primary Care Provider [phone] Encounter Details Date Type Department Care Team (Late st Contact Info) Description 08/27/2020 External Results Pre-Admission Testing at [facility] [address] [place] [address] Social History Tobacco Use Types Packs/Day Years [...] Visit [facility] [place] [address] Kenneth Martin MD [facility] [address] 02/19/2024 1:00 PM EST Office [place] [address] Mike Ko MD [facility] [place] [address] documented as of this encounter Procedures Procedure [...] Start Date End Date Nick Menendez MD [address] [address] PCP - General General Internal Medicine 03/06/1608/12 documented as of this encounter
--- OUTSIDE RECORDS SUMMARY | 2024-01-04 14:47 | XMS_ITS | Encounter Summary ---
[place] [address] Care Team Providers Care Cyber Defense Analyst Name Role Phone JAY Ann, Cassidy Primary Care Provider [phone] Encounter Details Date Type Department Care Team (Late Contact Info) Description 02/02/2015 External [place] [address] Provider, Scanning Social History Tobacco Use Types [...] Office Visit [place] [address] Kenneth Martin MD [facility] [address] 02/19/2024 1:00 PM EST Office [place] [address] Mike Ko MD [facility] [address] documented as of this encounter Procedures Procedure Name Priority Date/Time Associated Diagnosis Comments SURGICAL PATHOLOGY SCAN Routine 02/02/2015 documented in this encounter Results * Scan Doc: Surgical Pathology (02/02/2015) Stuart Miner MD MEDIA MGR SCAN EXT O RDR/RSLT documented in this encounter Visit Diagnoses Not on filedocumented in this encounter Care Teams Cyber Defense Analyst Relationship Specialty Start Date End Date Cassidy Ware PA PCP - General 09/04/14 08/26/15 documented as of this encounter
--- OUTSIDE RECORDS SUMMARY | 2024-01-04 14:47 | XMS_ITS | Encounter Summary ---
Author Organization [facility] [place] [address] Care Team Providers Care Medical Malpractice Paralegal Name Role Phone Nick Menendez MD Primary [...] Expiration Date Visits Re quested Visits Authorized [id number] 1 1 Encounter Details Date Type Department Care Team (Late Contact Info) Description 08/31/2020 9:40 AM EDT Ancillary Procedure Radiology Xray at [facility] [place] [address] Social History Tobacco Use Types Packs/Day Years [...] Office Visit [place] [address] Kenneth Martin MD [facility] [place] [address] 02/19/2024 1:00 PM EST Office [place] [address] Mike Ko MD [facility] [place] [address] documented as of this encounter [...] Homar Astudillo MD IMG FLUORO ORDERABLE [place], [place] documented in this encounter Visit Diagnoses Not on filedocumented in this encounter Care Teams Medical Malpractice Paralegal Relationship Specialty Start Date End Date Nick Menendez MD [address] [place] [address] PCP - General General Internal Medicine 03/06/1608/12 documented as of this encounter
--- OUTSIDE RECORDS SUMMARY | 2024-01-04 14:47 | XMS_ITS | Encounter Summary ---
Author Organization [facility] [place] [address] Care Team Providers Care Gas Tester Name Role Phone Nick Menendez MD Primary [...] Expiration Date Visits Re quested Visits Authorized [id number] 1 1 Encounter Details Date Type Department Care Team ([facility] Contact Info) Description 08/31/2020 10:19 AM EDT Anesthesia Event [facility] [place] [address] Juan David Crawford CRNA Anesthesia Record Procedure [...] - Single Lumen 08/31/20; 0955; (R forearm); vrou-npp-docatt catheter system; 20 gauge; Lucio Sharif; 01/12/21 (LDA Cleanup utility RA#[id number]); 1649 (LDA Cleanup utility RA#[id number]) 08/31/20 09 by Parminder Sharif RN 01/12/211649 by Nic Ruiz (RETIRED) Peripheral IV Line - Single Lumen 08/31/20; 0958; basilic vein (medial side of arm), right; vhvk-mqw-firoxb catheter system; Anatomical Landmarks; 20 gauge; Julien [...] Procedure Summary Date: 08/31/20 Room / Location: [facility] OR MAIN OR Anesthesia Start: 1019 Anesthesia [...] Anesthesia Preprocedure Evaluation - Juan David Crawford, PEST CONTROL WORKER - 08/31/2020 10:05 AM EDT Pre-Anesthesia Evaluation [...] Knee to feet bilaterally secondary to Gilda [place], decreased sensation to kimberly arms as well [...] Office Visit [place] [address] Kenneth Martin MD [facility] [place] [address] 02/19/2024 1:00 PM EST Office [place] [address] Mike Ko MD [facility] [place] [address] documented as of this encounter Visit Diagnoses [...] mg documented in this encounter Care Teams Gas Tester Relationship Specialty Start Date End Date Nick Menendez MD [address] [place] [address] PCP - General General Internal Medicine 03/06/1608/12 documented as of this encounter
--- OUTSIDE RECORDS SUMMARY | 2024-01-04 14:47 | XMS_ITS | Encounter Summary ---
Author Organization [facility] [place] [address] Care Team Providers Care Regional Operations Director Name Role Phone JAY Ann, Cassidy Primary Care Provider [phone] Encounter Details Date Type Department Care Team (Latest Contact Info) Description 2015 10:00 AM EDT Procedure [place] [address] Stuart Miner MD [facility] [place] [address] Small fiber neuropathy Social History Tobacco Use [...] Office Visit [facility] at [place] [phone] Kenneth Martin MD [facility] [place] [place] [address] 02/19/2024 1:00 PM EST Office [place] [address] Mike Ko MD [facility] [place] [address] documented as of this encounter Procedures Procedure Name Priority Date/Time Associated Diagnosis Comments SURGICAL PATHOLOGY REPORT Routine 2015 11:24 AM EDT [facility] Routine 2015 10:29 AM EDT [facility] Routine 2015 10:29 AM EDT documented in this encounter Results * Surgical Pathology Report (2015 11:24 AM EDT) Final Diagnosis The signing pathologist has (i) examined the relevant preparation(s) for the specimen(s) and (ii) rendered or confirmed the diagnosis(es). Accession Number: [id number] ?Location: 3C . ? Addendum ADDENDUM DISCUSSION SPECIAL TEST PERFORMED: Test: ??Sweat Gland Nerve Fiber Density Test [facility] Case: ??[id number] Performing Lab: ??[facility] Performing Lab Case: ??[id number] Reported by Aime Gordon MD Date reported: ??02/01/15 Calf skin shows a normal sweat gland nerve fiber density. ??There were no sweat glands in the thigh skin sample. ??For the full text of the [facility] reports please refer to Non-DH Documentation Pathology in the electronic health record (eDH). 02/02/15 [facility] 02/02/15 Verified by: ? Cecily ANTHONY, Aime Valencia ?Pathologist ?(Electronic Signature) The attending pathologist whose signature appears on this report has reviewed all diagnostic slides and has edited the gross and/or microscopic portion of the report in rendering the final pathologic diagnosis. ? Addendum ADDENDUM DISCUSSION SPECIAL TEST PERFORMED: Test: ??Epidermal Nerve Fiber Density Test [facility] Case: ??[id number] Performing Lab: ??[facility] Performing Lab Case: ??[id number] Reported by Pelon Bauman MD Date reported: [...] skin punch biopsies which are submitted to [facility] for epidermal nerve fiber density testing. ??See separate report from [facility]. 01/19/15 [facility] 01/22/15 Verified by: ? Aime Tony MD ?Pathologist ?(Electronic Signature) The attending pathologist whose signature appears on this report has reviewed all diagnostic slides and has edited the gross and/or microscopic portion of the report in rendering the final pathologic diagnosis. DISCUSSION No histological studies are performed at [facility] ADDITIONAL STUDIES none CLINICAL INFORMATION Specimen Submitted: A - Right thigh, skin punch B - Right distal leg, skin punch Clinical History: Neuropathy both feet FROZEN SECTION none SPECIMEN PROCESSING Received are 2 skin punch biopsies which are submitted to [employer] [facility] for epidermal nerve fiber density testing. [facility] [address] [place] [id number] 02/02/2015 11:[address] [facility] SPECIMEN FROM SKIN / Unknown 2015 11:24 AM EDT 2015 11:24 AM EDT Stuart Miner MD PATHOLOGY/CYTOLOGY O RDERABLES Performing Organization Address City/State/[facility] Phone Number GONZALEZ [facility] [place] [address] * [facility] [place] (2015 10:29 AM EDT) Pathologist [facility] Sendout See Note CERNER MILLENNIUM Comment: The ordered test is: Sweat Gland Nerve Fiber Density Test performed by: [facility]; [address] [place] [address] The test result is: Please see scanned report in Chart Review under the Non- Laboratory Heading. Specimen of unknown material (specimen) Other / Unknown 2015 10:29 AM EDT 02/02/2015 10:10 AM EDT Stuart Miner MD LAB SEND OUT ORDERAB LES Performing Organization Address City/[facility] Co de Phone Number [facility] * [facility] (2015 10:29 AM EDT) Pathologist [facility] Sendout See Note CERNER MILLENNIUM Comment: The ordered test is: Epidermal Nerve Fiber Density Test performed by: [facility]; [address] [place] [address] The test result is: Please see scanned report in Chart Review under the Non- Laboratory Heading. Specimen of unknown material (specimen) Other / Unknown 2015 10:29 AM EDT 2015 11:44 AM EDT Stuart Miner MD LAB SEND OUT ORDERAB LES Performing Organization Address City/[facility] Co de Phone Number [facility] documented in this encounter Visit Diagnoses Diagnosis Small fiber neuropathy Unspecified hereditary and idiopathic peripheral neuropathy documented in this encounter Care Teams Regional Operations Director Relationship Specialty Start Date End Date Cassidy Ware PA PCP - General 09/04/14 08/26/15 documented as of this encounter
--- OUTSIDE RECORDS SUMMARY | 2024-01-04 14:47 | XMS_ITS | Encounter Summary ---
[place] [address] Care Team Providers Care Investigator Claims Name Role Phone JAY Ann, Cassidy Primary Care Provider [phone] Encounter Details Date Type Department Care Team (Late Contact Info) Description 01/28/2015 External [place] [address] Provider, Scanning Social History Tobacco Use Types [...] Office Visit [place] [address] Kenneth Martin MD [facility] [place] [address] 02/19/2024 1:00 PM EST Office [place] [address] Miek Ko MD [facility] [address] documented as of this encounter Procedures Procedure Name Priority Date/Time Associated Diagnosis Comments SURGICAL PATHOLOGY SCAN Routine 01/28/2015 documented in this encounter Results * Scan Doc: Surgical Pathology (01/28/2015) Stuart Miner MD MEDIA MGR SCAN EXT O RDR/RSLT documented in this encounter Visit Diagnoses Not on filedocumented in this encounter Care Teams Investigator Claims Relationship Specialty Start Date End Date Cassidy Ware PA PCP - General 09/04/14 08/26/15 documented as of this encounter
--- OUTSIDE RECORDS SUMMARY | 2024-01-04 14:47 | XMS_ITS | Encounter Summary ---
Author Organization [facility] [place] [address] Care Team Providers Care Occupational Therapy Aides Teacher Name Role Phone Glenys Hernandez APRN Primary Care Provider [phone] Encounter Details Date Type Department Care Team (Late st Contact Info) Description 12/29/2021 External Results Weight and Wellness at [address] [address] Erin Gaines, RN Social History Tobacco Use [...] Office Visit [facility] [place] [address] Kenneth Martin MD [facility] [place] [address] 02/19/2024 1:00 PM EST Office [place] [address] Mike Ko MD [facility] [place] [address] documented as of this encounter Goals Goal [...] Procedure Name Priority Date/Time Associated Diagnosis Comments [facility] EXTERNAL LABS 2 Routine 12/22/2021 documented in this encounter Results * (ABNORMAL) [facility] Labs 2 - External (12/22/2021) Hemoglobin A1c 5.9(H) Glucose Fasting 103 Vitamin D Total 25 OH 19.1(L) Thyroid Stimulating Hormone 0.93 Insulin 15.1 Ferritin 120 Iron 76 12/22/2021 Historical Provider EXTERNAL LAB [facility] documented in this encounter Visit Diagnoses Not on filedocumented in this encounter Care Teams Occupational Therapy Aides Teacher Relationship Specialty Start Date End Date Glenys Hernandez, JL [address] [place] [address] PCP - General Family Medicine 09/26/21 12/28/22 documented as of this encounter
--- OUTSIDE RECORDS SUMMARY | 2024-01-04 14:47 | XMS_ITS | Encounter Summary ---
[place] [address] Care Team Providers Care Hims Clerk Name Role Phone JAY Ann, Cassidy Primary Care Provider [phone] Encounter Details Date Type Department Care Team (Latest Contact Info) Description 2015 2:41 PM EDT - 2015 11:59 PM EDT Hospital En[place] [phone] Stuart Miner MD [facility] [place] [address] Discharge Disposition: Home Social History Tobacco Use [...] Care Team ( st Contact Info) Description 01/23/2024 2:00 PM EDT Office Visit [place] [address] Kenneth Martin MD [facility] [place] [address] 02/19/2024 1:00 PM EST Office [place] [address] Mike Ko MD [facility] [place] [address] documented as of this encounter Visit Diagnoses Not on filedocumented in this encounter Care Teams Hims Clerk Relationship Specialty Start Date End Date Cassidy Ware PA PCP - General 09/04/14 08/26/15 documented as of this encounter
--- OUTSIDE RECORDS SUMMARY | 2024-01-04 14:47 | XMS_ITS | Encounter Summary ---
[place] [address] Care Team Providers Care Folder Machine Name Role Phone JAY Ann, Cassidy Primary Care Provider [phone] Reason for Visit * Reason Onset Date Comments Other 09/07/2014 compounded scrip t Encounter Details Date Type Department Care Team ([facility] st Contact Info) Description 09/07/2014 [place] [phone] Song Allen MD [facility] [place] [address] Other (compounded script) Social History Tobacco Use [...] 10/15/2014 3:03 PM EDT Faxed order to [facility]. * Telephone Encounter - Stephanie Strauss RN - 10/15/2014 9:58 AM EDT Call received from brandi Anderson at [facility], asking if we had the signed compounded form from Dr. Allen. Will check with Ramesh and Dr. Allen. * Telephone Encounter - Stephanie Strauss RN - 09/22/2014 8:42 AM EDT Forwarded script on to Dr. Allen to sign. Will fax back to [facility]. * Telephone Encounter - Stephanie Strauss RN [...] office note and compounding order form to [facility] at [phone]. documented in this encounter Plan of Treatment Upcoming Encounters Date Type Department Care Team (Late st Contact Info) Description 01/23/2024 2:00 PM EDT Office Visit [place] [address] Kenneth Martin MD [facility] [place] [address] 02/19/2024 1:00 PM EST Office [place] [address] Mike Ko MD [facility] [place] [address] documented as of this encounter Visit Diagnoses Not on filedocumented in this encounter Care Teams Folder Machine Relationship Specialty Start Date End Date Cassidy Ware PA PCP - General 09/04/14 08/26/15 documented as of this encounter
--- OUTSIDE RECORDS SUMMARY | 2024-01-04 14:48 | XMS_ITS | Encounter Summary ---
Author Organization [facility] Address [address] [place] [address] Care Team Providers Care Tire Recapping Machine Operator Name Role Phone Jennifer Sr MD Primary Care Provider [phone]- [phone] Reason for Visit * Reason Comments Hip Injury bilateral hip pain n o doi/dos Encounter Details Date Type Department Care Team ([facility] st Contact Info) Description 06/03/2019 15:30 EST Office Visit [facility] Total Joint Program - [address] [address] Altagracia Lozano NP [address] [place] [address] Trochanteric bursitis of both hips [...] (acetaminophen) or Advil (ibuprofen) as directed by college athlete if not contraindicated ??? No Swimming for [...] care physician Thank you for choosing the [facility] for your care. If you have any questions after receiving an injection, or if your pain does not subside, please call at [phone] and let us know. Our goal is to lessen your pain and improve your function. documented in this encounter Progress Notes * Lauren Robert MA - 06/03/2019 1530 EST Patient had the following injection in to the right hip Bupivacaine HCL inj. 0.5% (10mg/mL) 4CC 6CC WASTE Med lot number: [id number] NDC number:[id number] BUD: NOV 2021 Hot [place]: [facility] Depo Medrol 40mg/mL 1CC 0CC WASTE Med lot number: [id number] [facility] number: [id number] BUD: 08/26 Hot [place]: LISSY ROBERT MA 16:09 * Altagracia Lozano [...] patient tolerated this well. Disposition: follow-up in [facility] in 2-3 weeks for left trochanteric bursal injection, sooner as needed Dr. Dimas was the attending physician available in the clinic today if needed. A consultation was not required. All or part of this document has been prepared with speech recognition software and/or keyboard data base administrator techniques. Minor irregularities may be present. Cc: Jennifer Sr Cc: Orin documented in this encounter Plan of Treatment Upcoming Encounters Date Type Department Care Team (Late st Contact Info) Description 04/21/2024 15:00 EST Office Visit [facility] Neurology - S [address] [id number] Robby Abraham MD [address] [place] [address], Level 2 [place] [phone] documented as of this encounter Visit Diagnoses Diagnosis Trochanteric bursitis of both hips- Primary Enthesopathy of hip region documented in this encounter Historical Medications * This list may reflect changes made after this encounter. Medication Sig Dispensed Refills Start Date End Date acetaminophen (TYLENOL) 500 mg tablet Take 500 mg by mouth as needed for Pain. added in this encounter Care Teams Tire Recapping Machine Operator Relationship Specialty Start Date End Date Jennifer Sr MD [address], [address] [address] PCP - General 12/03/18 08/29/22 documented as of this encounter
--- OUTSIDE RECORDS SUMMARY | 2024-01-04 14:48 | XMS_ITS | Encounter Summary ---
Author Organization [facility] Address [address] [place] [address] Care Team Providers Care Early Childhood Education Coordinator Name Role Phone Jennifer Sr MD Primary Care Provider [phone]- [phone] Jacey Amador Primary Care Provider [phone] Encounter Details Date Type Department Care Team ([facility] Contact Info) Description 02/28/2019 Lab Requisition [facility] Pathology & Laboratory Medicine - [address] [address] Unknown, Provider, Social History Tobacco Use Types [...] Upcoming Encounters Date Type Department Care Team ([facility] Contact Info) Description 04/21/2024 15:00 EST Office Visit [facility] Neurology - [address] [place] [address] [place] [id number] Robby Abraham MD 1 [facility], Level 2 [place] [phone] documented as of this encounter Procedures Procedure Name Priority Date/Time Associated Diagnosis Comments HEPATITIS B CORE ANTIBODY (TOTAL) Routine 02/28/2019 7:24 EST documented in this encounter Results * HEPATITIS B CORE ANTIBODY (TOTAL) (02/28/2019 7:24 EST) Hepatitis B Core Ab, Total Negative Negative 02/28/2019 15:25 EST [facility] Blood VENOUS BLOOD / Unknown 02/28/2019 7:24 EST 02/28/2019 11:56 EST Provider Unknown CHEMISTRY & BLOOD GA S ORDERABLES Performing Organization Address City/State/[facility] Co de Phone Number [facility] [address] [place] [address] documented in this encounter Visit Diagnoses Not on filedocumented in this encounter Care Teams Early Childhood Education Coordinator Relationship Specialty Start Date End Date Jennifer Sr MD [facility] [address], [address] [address] PCP - General 12/03/18 08/29/22 Jacey Amador FNP [address] [address] PCP - General Family Medicine - Primary Care 08/30/22 documented as of this encounter
--- OUTSIDE RECORDS SUMMARY | 2024-01-04 14:48 | XMS_ITS | Encounter Summary ---
[place] [address] Care Team Providers Care Geology Teacher Name Role Phone Melina Edge MD Primary Care Provider [phone] Reason for Visit * Reason Onset Date Comments Referral 05/25/2014 Encounter Details Date Type Department Care Team (Late st Contact Info) Description 05/25/2014 Telephone [place] [phone] Linda Cameron Referral Social History Tobacco Use [...] 8:53 AM EST Received 1 page from [facility] XR Report, BILATERAL FEET 03/02/2014 * Telephone Encounter - Linda Cameron - 05/25/2014 11:17 AM EST Ask the patient to verify the following: Full Name: Aydee Johns : 1965 Phone number: [phone] (home) Mailing address: [address] [address] Age: 49 y.o. Appointment date: TBD Appointment [...] When? Where? Who? Notes: 2013 [facility] X-rays: Yes - When? Where? Notes: 02/2014 [place], [place] PH: [phone] FAX: [phone] IMG PUSH MRI: No CT Scan: No Physical therapy: No Injection: Yes - When? Where? Who? Notes: 12/2013 [place], [place] [phone] DR JACQUELYN BARRETT Other diagnostic studies: No Other therapies: No Other specialist(s): Yes - What? When? Where? Who? Notes: SENIOR INTEGRATION DEVELOPER 12/2013 [place], [place] [phone] DR JACQUELYN BARRETT If 2nd (+) opinion get info on previous: No Have you had any surgeries for this issue? No Did surgery include placement of implant/hardware or fixation of any kind? No documented in this encounter Plan of Treatment Upcoming Encounters Date Type Department Care Team (Late st Contact Info) Description 01/23/2024 2:00 PM EDT Office Visit [facility] [place] [address] Kenneth Martin MD [facility] [place] [address] 02/19/2024 1:00 PM EST Office [place] [address] Mike Ko MD [facility] [place] [address] documented as of this encounter Visit Diagnoses Not on filedocumented in this encounter Care Teams Geology Teacher Relationship Specialty Start Date End Date Melina Edge MD [address] [place] [address] PCP - General 05/25/14 07/09/14 documented as of this encounter
--- OUTSIDE RECORDS SUMMARY | 2024-01-04 14:48 | XMS_ITS | Encounter Summary ---
Author Organization [facility] Address [address] [place] [address] Care Team Providers Care Front Office Supervisor Name Role Phone Jennifer Sr MD Primary Care Provider [phone] Reason for Visit * Reason Onset Date Comments Appointment Related 05/02/2019 Encounter Details Date Type Department Care Team ([facility] st Contact Info) Description 05/02/[address] [facility] Interventional Pain [address] [place] [address] Ruth Gomez PA-C [address] [facility] [address] [place] [address] Appointment Related Social History Tobacco [...] Office Visit [facility] Neurology - [address] [phone] Robby Abraham MD [address] [place] [address], Level 2 [place] [phone] documented as of this encounter Visit Diagnoses Not on filedocumented in this encounter Care Teams Front Office Supervisor Relationship Specialty Start Date End Date Jennifer Sr MD [address], [address] [address] PCP - General 12/03/18 08/29/22 documented as of this encounter
--- OUTSIDE RECORDS SUMMARY | 2024-01-04 14:48 | XMS_ITS | Referral Summary ---
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 manuel Obstructive sleep apnea syndrome 10/23/2016 Social [...] Info) Description 04/21/2024 15:00 EST Office Visit [facility] Neurology - [address] [phone] Robby Abraham MD [address] [place] [address], Level 2 [place] [address] Procedures Procedure Name Priority Date/Time Associated Diagnosis Comments CT CHEST LOW DOSE LUNG SCREENING Routine 05/19/2019 14:44 EST Encounter for screening for lung cancer [place]ITIS [place] W[place] [facility] [place] 02/28/2019 [...] ORDERABLES * HEPATITIS C AB W/REFLEX [place] [facility] [place] (02/28/2019 7:24 EST) HEPATITIS C AB W/REFLEX [facility] Negative 02/28/2019 9:16 EST [facility] Comment:Expected Values: Neg ative. 02/28/2019 7:24 EST 02/28/2019 7:24 EST Narrative [facility] - 02/28/2019 9:16 EST Does PT Have a Latex Allergy? NO Robby Abraham MD CHEMISTRY & BLOOD GA S ORDERABLES [facility] from Last 3 Months or Most Recently Relevant to Health Maintenance Care Teams Die Maintenance Technician Relationship Specialty Start Date End Date Jacey Amador FNP [address] [place] [address] PCP - General Family Medicine - Primary Care 08/30/22
--- OUTSIDE RECORDS SUMMARY | 2024-01-04 14:48 | XMS_ITS | Encounter Summary ---
Author Organization [facility] Address [address] [place] [address] Care Team Providers Care Patent Solicitor Name Role Phone Jennifer Sr MD Primary Care Provider [phone] Reason for Visit * Reason Comments Pain Pain Encounter Details Date Type Department Care Team ([facility] Contact Info) Description 06/20/2019 9:30 EDT Office Visit [facility] Total Joint Program - [facility] [address] [place] [address] Altagracia Lozano, SUNSHINE [address] [place] [address] Greater trochanteric bursitis of left [...] (acetaminophen) or Advil (ibuprofen) as directed by classroom paraprofessional if not contraindicated ??? No Swimming for [...] care physician Thank you for choosing the [facility]ics for your care. If you have any questions after receiving an injection, or if your pain does not subside, please call at [phone] and let us know. Our goal is to lessen your pain and improve your function. documented in this encounter Progress Notes * Adenike Agee MA - 06/20/2019929 EDT Hip Injection Bupivacaine 0.5% 10 mL Med lot number: [id number] [facility] number: [id number] Exp date: 09/28 Composition Roll Maker And Cutter:GILMA med Drug waste: 10 mL vial, used 4 mL, wasted 6 mL Methyiprednisolone 40 mg/mL Med lot number: [id number] [facility] number: [id number] Exp date: 05/30 Composition Roll Maker And Cutter: PrecisionDemand Drug :1 mL vial, used 1 mL, [...] Visit [facility] Neurology - [address] [place] [address] [place] [address] Robby Abraham MD [address] [place] [address], Level 2 [place] [phone] documented as of this encounter Visit Diagnoses Diagnosis Greater trochanteric bursitis of left hip- Primary Enthesopathy of hip region documented in this encounter Care Teams Patent Solicitor Relationship Specialty Start Date End Date Jennifer Sr MD [address], [address] [address] PCP - General 12/03/18 08/29/22 documented as of this encounter
--- OUTSIDE RECORDS SUMMARY | 2024-01-04 14:48 | XMS_ITS | Encounter Summary ---
Author Organization [facility] Address [address] [place] [address] Care Team Providers Care Multigraph Operator Name Role Phone Jennifer Sr MD Primary Care Provider [phone] Encounter Details Date Type Department Care Team ([facility] st Contact Info) Description 03/27/2019 Documentation Visit [facility] Neurology - S [address] [phone] Robby Abraham MD [address] [place] [address] Level 2 [place] [address] Social History Tobacco Use Types [...] Description 04/21/2024 15:00 EST Office Visit [facility] Neurology - [address] [phone] Robby Abraham MD [address] [place] [address], Level 2 [place] [phone] documented as of this encounter Visit Diagnoses Not on filedocumented in this encounter Care Teams Multigraph Operator Relationship Specialty Start Date End Date Jennifer Sr MD [address], [address] [address] PCP - General 12/03/18 08/29/22 documented as of this encounter
--- OUTSIDE RECORDS SUMMARY | 2024-01-04 14:48 | XMS_ITS | Encounter Summary ---
Author Organization [facility] [place] [address] Care Team Providers Care Metal Lather Name Role Phone Zoraida Ordoñez MD Primary Care Provider [phone] Encounter Details Date Type Department Care Team (Late st Contact Info) Description 11/27/2013 - 11/27/2013 11:59 PM EDT Hospital Encounter Radiology Library at [facility] [place] [address] [address] [facility] Pain Discharge Disposition: Home Social History Tobacco [...] Office Visit [place] [address] Kenneth Martin MD [facility] [place] [address] 02/19/2024 1:00 PM EST Office [place] [address] Mike Ko MD [facility] [place] [address] documented as of this encounter Procedures Procedure Name Priority Date/Time Associated Diagnosis Comments FILM LIBRARY STORAGE ONLY MR HEAD Routine 11/27/2013 12:00 AM EDT Pain documented in this encounter Results * Film Library- Storage only MR Head (11/27/2013 12:00 AM EDT) Narrative [facility] - 08/17/2015 8:24 AM EDT This exam is for storage only and is auto-finalizing. Dr Reyes [facility] FILM LIBRARY ORD ERABLES [place], [place] documented in this encounter Visit Diagnoses Diagnosis Pain Generalized pain documented in this encounter Care Teams Metal Lather Relationship Specialty Start Date End Date Zoraida Ordoñez MD [address] [place] [address] PCP - General 04/26/11 05/24/14 documented as of this encounter
--- OUTSIDE RECORDS SUMMARY | 2024-01-04 14:48 | XMS_ITS | Encounter Summary ---
Author Organization [facility] Address [address] [place] [address] Care Team Providers Care Diving Instructor Name Role Phone Jacey Amador Primary Care Provider [phone] Reason for Referral * PT/OT/ST (Routine/Next Available) - New Request Specialty Diagnoses / Procedures Referred By Mayda jalloh Referred To Contact Diagnoses Muscle tension dysphonia Chronic laryngitis Gastroesophageal reflux disease without esophagitis History of tobacco abuse Aki Rosario MD [address] [place] [address], Level [address] [place] [address] Referral ID Status Reason Start Date Expiration Date Visits Requested Visits Authorized [id number] New Request Specialty Services Required 09/08/2022 1 1 Question Answer Type of CAKE DECORATOR Eval: Voice Eval & Treat Reason for [...] and resonance disorder Maria Esther Mckoy APRN [address] [place] [address] [place] [address] [place] [address] [place] [id number] Referral ID Status Reason Start Date Expiration Date Visits Requested Visits Authorized [id number] Receiving Office to Obtain Authorization 1 1 Encounter Details Date Type Department Care Team (Late st Contact Info) Description 09/08/2022 15:00 EDT Office Visit [facility] ENT- [address] [address] Aki Rosario MD [address] [place] [address], Level 4 [place] [address] Muscle tension dysphonia (Primary Dx); [...] Heart murmur ??? Hyperlipidemia ??? Neuromuscular disease ([facility]) ??? Sleep apnea ??? SOB (shortness of [...] (shortness of breath) ??? Substance abuse (HCC-CMS) ([facility]) Past Surgical History: Procedure Laterality Date ??? [...] an external referral as she lives in [place] with the closest hospital being [facility]. She wasreassured regarding the absence of concerning [...] Description 04/21/2024 15:00 EST Office Visit [facility] Neurology - S [address] [address] Robby Abraham MD [address] [place] [address], Level 2 [place] [phone] Scheduled Referrals Name Type Priority Associated Diagnoses [...] daily. added in this encounter Care Teams Diving Instructor Relationship Specialty Start Date End Date Jacey Amador FNP [address] [place] [address] PCP - General Family Medicine - Primary Care 08/30/22 documented as of this encounter
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
--- OUTSIDE RECORDS SUMMARY | 2024-01-04 14:48 | XMS_ITS | Encounter Summary ---
Author Organization [facility] Address [address] [place] [address] Care Team Providers Care Salmon Gillnet Vessel Operator Name Role Phone Jennifer Sr MD Primary Care Provider [phone]- [phone] Reason for Visit * Reason Onset Date Comments Appointment Related 08/22/2019 Encounter Details Date Type Department Care Team ([facility] st Contact Info) Description 08/22/2019 Telephone [facility] Interventional Pain [address] [place], [place] [id number] Ann-Marie Macias MD [address] [place], [place] [id number] Appointment Related Social History Tobacco Use Types [...] Telephone Encounter - Shanell Gilbert - 08/22/2019 1061 EDT Called patient to confirm their appointment [...] [facility] Neurology - S [address] [phone] Robby Abraham MD [address] [place] [address], Level 2 [place] [phone] documented as of this encounter Visit Diagnoses Not on filedocumented in this encounter Care Teams Salmon Gillnet Vessel Operator Relationship Specialty Start Date End Date Jennifer Sr MD [address], [address] [place] [address] PCP - General 12/03/18 08/29/22 documented as of this encounter
--- OUTSIDE RECORDS SUMMARY | 2024-01-04 14:48 | XMS_ITS | Encounter Summary ---
Author Organization [facility] Address [address] [place] [address] Care Team Providers Care Elementary Science Teacher Name Role Phone Jennifer Sr MD Primary Care Provider [phone] Reason for Visit * Reason Onset Date Comments Labs Only 03/05/2019 Lab results [facility] Diagnostic Imaging Report 03/05/2019 [facility] Encounter Details Date Type Department Care Team ([facility] st Contact Info) Description 03/05/2019 Telephone [facility] Neurology - S [place] [address] [place] [phone] Robby Abraham MD [address] [place] [address], Level 2 [place] [address] Labs Only (Lab results [facility]); Diagnostic Imaging Report ([facility]) Social History Tobacco Use Types Packs/Day [...] - 03/11/2019 1124 EST Lab results form [facility] also received MRI report form [facility] MR C-spine. They are in Dr. Abraham's Mailbox. documented in this encounter Plan of Treatment Upcoming Encounters Date Type Department Care Team (Late st Contact Info) Description 04/21/2024 15:00 EST Office Visit [facility] Neurology - S [address] [address] Robby Abraham MD [address] [place] [address], Level 2 [place] [phone] documented as of this encounter Visit Diagnoses Not on filedocumented in this encounter Care Teams Elementary Science Teacher Relationship Specialty Start Date End Date Jennifer Sr MD [address], [address] [address] PCP - General 12/03/18 08/29/22 documented as of this encounter
--- OUTSIDE RECORDS SUMMARY | 2024-01-04 14:48 | XMS_ITS | Encounter Summary ---
Author Organization [facility] [place] [address] Care Team Providers Care Professor Of Chemical Engineering Name Role Phone Zoraida Ordoñez MD Primary Care Provider [phone] Encounter Details Date Type Department Care Team (Late st Contact Info) Description 05/19/2011 Ancillary Procedure Radiology Library at [facility] [place] [address] Minnie Muñoz, JL [facility] [place] [address] Social History Tobacco Use Types Packs/Day Years [...] Visit [facility] [place] [address] Kenneth Martin MD [facility] [place] [address] 02/19/2024 1:00 PM EST Office [place] [address] Mike Ko MD [facility] [place] [address] documented as of this encounter Procedures Procedure Name Priority Date/Time Associated Diagnosis Comments FILM LIBRARY STORAGE ONLY DX SPINE Routine 05/19/2011 12:00 AM EST documented in this encounter Results * Film Library- Storage Only DX Spine (05/19/2011 12:00 AM EST) Narrative [facility] - 02/06/2023 9:39 PM EDT This exam is auto-finalizing. It's purpose is for storage only. Minnie Muñoz APRN IMG FILM LIBRARY OR DERABLES Performing Organization Address City/State/[facility] Co de Phone Number [place], [place] documented in this encounter Visit Diagnoses Not on filedocumented in this encounter Care Teams Professor Of Chemical Engineering Relationship Specialty Start Date End Date Zoraida Ordoñez MD [address] [place] [address] PCP - General 04/26/11 05/24/14 documented as of this encounter
--- OUTSIDE RECORDS SUMMARY | 2024-01-04 14:48 | XMS_ITS | Encounter Summary ---
Author Organization [facility] Address [address] [place] [address] Care Team Providers Care Short Order Cook Name Role Phone Jennifer Sr MD Primary Care Provider [phone] Jacey Amador Primary Care Provider [phone] Encounter Details Date Type Department Care Team (Late Contact Info) Description 07/25/2019 Lab Requisition [facility] Pathology & Laboratory Medicine - [address] [address] [place] [address] Encounter for other general examination Social History [...] Upcoming Encounters Date Type Department Care Team ([facility] Contact Info) Description 04/21/2024 15:00 EST Office Visit [facility] Neurology - S [address] [place], [place] [address] Robby Abraham MD [address] [facility], Level 2 [place] [phone] documented as of this encounter Visit Diagnoses Diagnosis Encounter for other general examination documented in this encounter Care Teams Short Order Cook Relationship Specialty Start Date End Date Jennifer Sr MD [facility], [address] [address] PCP - General 12/03/18 08/29/22 Jacey Amador FNP [address] [phone] PCP - General Family Medicine - Primary Care 08/30/22 documented as of this encounter
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
--- OUTSIDE RECORDS SUMMARY | 2024-01-04 14:48 | XMS_ITS | Encounter Summary ---
Author Organization [facility] Address [address] [place] [address] Care Team Providers Care Assistant Professor Of Criminal Justice Name Role Phone Jennifer Sr MD Primary Care Provider [phone] Encounter Details Date Type Department Care Team (Late st Contact Info) Description 02/28/2019 Results Only [facility] Neurology - S [address] [phone] Robby Abraham MD [address] [place] [address] [address] [place] [address] Social History Tobacco Use Types [...] Description 04/21/2024 15:00 EST Office Visit [facility] Neurology - S [address] [place] [address] Robby Abraham MD [address] [place] [address], [address] [place] [address] documented as of this encounter Procedures Procedure Name Priority Date/Time Associated Diagnosis Comments HEPATITIS C AB W/REFLEX - [facility] [place] Routine 02/28/2019 7:24 EST CRYOGLOBULIN, SERUM Routine 02/28/2019 7 :24 EST HEPATITIS B CORE ANTIBODY (TOTAL) Routine 02/28/2019 7:24 EST ZZVITAMIN B1, THIAMINE Routine 9 7:24 EST MISCELLANEOUS TEST, [facility] Routine 02/28/2019 7:17 EST documented in this encounter Results * VITAMIN B1, THIAMINE (02/28/2019 7:24 EST) VITAMIN B1 (THIAMINE) - [facility] [place] 145 70 - 180 nmol/L 03/04/2019 8:08 EST [facility] Comment: ADDITIONAL INFORMATION This test was developed and its performance characteristics determined by [facility] in a manner consistent with CLIA requirements. This test has not been cleared or approved by the U.S. Food and Drug Administration. Test Performed by: [facility] [address] [place] [address] Print Color Operator: Aime Craig M.D. Ph.D.; CLIA# [id number] 02/28/2019 7:24 EST 02/28/2019 7:[address] [facility] - 03/04/2019 8:08 EST Does PT Have a Latex Allergy? NO ORDERED TESTS: VALDES ID:PLP/GREEN TOP Robby Abraham MD CHEMISTRY & BLOOD GA S ORDERABLES [facility] * HEPATITIS B CORE ANTIBODY (TOTAL) (02/28/2019 7:24 EST) Hepatitis B Core Ab, Total Negative Negative 03/04/2019 8:08 EST [facility] Comment: Test performed [place] [address] 02/28/2019 7:24 EST 02/28/2019 7:[address] [facility] - 03/04/2019 8:08 EST Does PT Have a Latex Allergy? NO ORDERED TESTS: VALDES ID:PLP/GREEN KATHRIN Robby Abraham MD CHEMISTRY & BLOOD GA S ORDERABLES Performing Organization Address City/[facility]/ZIP Co de Phone Number [facility] * CRYOGLOBULIN, SERUM (02/28/2019 7:24 EST) CRYOGLOBULINS SCREEN - [facility] [place] Negative Negative %ppt 03/04/2019 8:08 EST [facility] Comment: This test is negative at 24 hours. All samples are held and reviewed again at 7 days. If delayed precipitation occurs after 7 days, Immunofixation will be performed and an additional report will follow. Test Performed by: [facility] [address] [place], [place] [id number] Print Color Operator: Aime Craig M.D. Ph.D.; CLIA# [id number] 02/28/2019 7:24 EST 02/28/2019 7:[address] [facility] - 03/04/2019 8:08 EST Does PT Have a Latex Allergy? NO ORDERED TESTS: [facility] ID:PLP/GREEN TOP Robby Abraham MD CHEMISTRY & BLOOD GA S ORDERABLES Performing Organization Address City/[facility]/ZIP Co de Phone Number [facility] * HEPATITIS C AB W/REFLEX - [facility] (02/28/2019 7:24 EST) HEPATITIS C AB W/REFLEX - [facility] Negative 02/28/2019 9:16 EST [facility] Comment:Expected Values: Neg ative. 02/28/2019 7:24 EST 02/28/2019 7:24 EST Narrative [facility] - 02/28/2019 9:16 EST Does PT Have a Latex Allergy? NO Robby Abraham MD CHEMISTRY & BLOOD GA S ORDERABLES Performing Organization Address [facility] Co de Phone Number [facility] * MISCELLANEOUS TEST, [place] (02/28/2019 7:17 EST) MISCELLANEOUS TEST - [facility] [place] SEE BELOW () 03/05/2019 20:21 EST [facility] Comment: Test ? Result ??Flag ??Unit ?? RefValue Pyridoxal 5-Phosphate (PLP) ?11 ?mcg/L ??5-50 ??, P ADDITIONAL INFORMATION This test was developed and its performance characteristics determined by [facility] in a manner consistent with CLIA requirements. This test has not been cleared or approved by the U.S. Food and Drug Administration. Test Performed by: [facility] [address] [place] [address] Print Color Operator: Aime Craig M.D. Ph.D.; CLIA# [id number] 02/28/2019 7:17 EST 02/28/2019 7:48 EST Robby Abraham MD CHEMISTRY & BLOOD GA S ORDERABLES Performing Organization Address City/State/[facility] Co de Phone Number [facility] documented in this encounter Visit Diagnoses Not on filedocumented in this encounter Care Teams Assistant Professor Of Criminal Justice Relationship Specialty Start Date End Date Jennifer Sr MD [facility], [address] [address] PCP - General 12/03/18 08/29/22 documented as of this encounter
--- OUTSIDE RECORDS SUMMARY | 2024-01-04 14:48 | XMS_ITS | Encounter Summary ---
Author Organization [facility] Address [address] [place] [address] Care Team Providers Care Manager Cost Name Role Phone Jennifer Sr MD Primary Care Provider [phone] Jacey Amador Primary Care Provider [phone] Encounter Details Date Type Department Care Team (Late Contact Info) Description 04/23/2019 Results Only Imaging [facility] [place] Results [address] [place] [address] Harris Price MD [address] [place] [address] Social History Tobacco Use Types [...] Upcoming Encounters Date Type Department Care Team ([facility] Contact Info) Description 04/21/2024 15:00 EST Office Visit [facility] Neurology - S [address] [place] [address] Robby Abraham MD 1 [facility], Level 2 [place] [address] documented as of this encounter [...] MD ? Transcribed Date/Time: 04/23/2019 (1908) ? Printing Services Coordinator: [employer] ? Printed Date/Time: 04/23/2019 (1908) ? [...] Moreno Arrieta MD Transcribed Date/Time: 04/23/2019 (1908) Printing Services Coordinator: Printed Date/Time: 04/23/2019 (1908) PAGE 2 Signed Report Harris Price MD IMG CT ORDERABLES documented in this encounter Visit Diagnoses Not on filedocumented in this encounter Care Teams Manager Cost Relationship Specialty Start Date End Date Jennifer Sr MD [address] [place] [address] [place], [address] [place] [address] PCP - General 12/03/18 08/29/22 Jacey Amador FNP [address] [phone] PCP - General Family Medicine - Primary Care 08/30/22 documented as of this encounter
--- OUTSIDE RECORDS SUMMARY | 2024-01-04 14:48 | XMS_ITS | Encounter Summary ---
Author Organization [facility] Address [address] [place] [address] Care Team Providers Care Caul Dresser Name Role Phone Jennifer Sr MD Primary Care Provider [phone] Reason for Referral * Radiology Services (Routine) - Closed Specialty Diagnoses / Procedures Referred By Mayda jalloh Referred To Contact Diagnoses Encounter for screening for lung cancer Procedures CT CHEST LOW DOSE LUNG SCREENING Jennifer Sr MD [address] [address] Referral ID Status Reason Start Date Expiration Date Visits Re quested Visits Authorized [id number] Closed 05/19/2019 1 1 Reason for Visit * Radiology Services (Routine) - Closed Specialty Diagnoses / Procedures Referred By Mayda jalloh Referred To Contact Diagnoses Encounter for screening for lung cancer Procedures CT CHEST LOW DOSE LUNG SCREENING Jennifer Sr MD [address] [address] Referral ID Status Reason Start Date Expiration Date Visits Re quested Visits Authorized [id number] Closed 05/19/2019 1 1 Encounter Details Date Type Department Care Team (Latest Contact Info) Description 05/19/2019 14:43 EST - 05/19/2019 23:59 EST Hospital Encounter [facility] Radiology - [address] [place] [address] Encounter for screening for lung cancer Discharge [...] Info) Description 04/21/2024 15:00 EST Office Visit [facility] Neurology - S [address] [address] Robby Abraham MD [address] [place] [address], Level 2 [place] [address] documented as of this encounter Procedures Procedure [...] cancer documented in this encounter Care Teams Caul Dresser Relationship Specialty Start Date End Date Jennifer Sr MD [address], [address] [place] [address] PCP - General 12/03/18 08/29/22 documented as of this encounter
--- OUTSIDE RECORDS SUMMARY | 2024-01-04 14:48 | XMS_ITS | Clinical Summary ---
Author Organization [facility] Address [address] [place] [address] Care Team Providers Care Lidding Machine Operator Name Role Phone Jacey Amador Primary Care Provider [phone] Allergies Active Allergy Reactions Criticality Noted Date [...] Type Department Care Team Description 11/29/[address] [facility] Neurology [address] [address] Robby Abraham MD Appointment Related from Last 3 Months Surgical History Surgery Date Site/Laterality Comments CHOLECYSTECTOMY 04/09/1997 - 04/08/1998 COLECTOMY 04/09/1999 - 04/08/2000 diverticulitis APPENDECTOMY 04/09/2008 - 04/08/2009 SPINE SURGERY Medical History Medical History Date Comments Chronic back pain Chronic neck pain Headache(784.0) Degenerative joint disease DDD (degenerative disc disease), thoracolumbar Hyperlipidemia Angina at rest ([facility]) SOB (shortness of breath) Diarrhea Environmental allergies Asthma Depression GERD (gastroesophageal reflux disease) Heart murmur Neuromuscular disease ([facility]) Substance abuse ([facility]) Sleep apnea Family History Medical [...] Description 04/21/2024 15:00 EST Office Visit [facility] Neurology - S [address] [address] Robby Abraham MD 1 [facility], Level 2 [place] [address] Health Maintenance Due Date Last Done Comments Pneumococcal Immunization (1 of 2 - PCV) 1971 Lung Cancer Screening 05/19/2020 05/19/2019 RSV Immunization ( o r 60+ Years) (1 - 1-dose 60+ series) 2023 COVID-19 Vaccine ( - season) 2023 Hepatitis C Screen Completed 02/28/2019 Procedures Procedure Name Priority Date/Time Associated Diagnosis Comments CT CHEST LOW DOSE LUNG SCREENING Routine 05/19/2019 14:44 EST Encounter for screening for lung cancer HEPATITIS C AB W/REFLEX - [facility] Routine 02/28/2019 7:24 EST from Last 3 [...] ORDERABLES * HEPATITIS C AB W/REFLEX - [facility] (02/28/2019 7:24 EST) HEPATITIS C AB W/REFLEX - [facility] Negative 02/28/2019 9:16 EST [facility] Comment:Expected Values: Neg ative. 02/28/2019 7:24 EST 02/28/2019 7:24 EST Narrative [facility] - 02/28/2019 9:16 EST Does PT Have a Latex Allergy? NO Robby Abraham MD CHEMISTRY & BLOOD GA S ORDERABLES [facility] from Last 3 Months or Most Recently Relevant to Health Maintenance Care Teams Lidding Machine Operator Relationship Specialty Start Date End Date Jacey Amador FNP [address] [place] [address] PCP - General Family Medicine - Primary Care 08/30/22
--- OUTSIDE RECORDS SUMMARY | 2024-01-04 14:48 | XMS_ITS | Encounter Summary ---
Author Organization [facility] Address [address] [place] [address] Care Team Providers Care Wool Hat Sanding Machine Operator Name Role Phone Jennifer Sr MD Primary Care Provider +1- [phone] Encounter Details Date Type Department Care Team (Late Contact Info) Description 04/23/2019 Results Only [facility] [phone] Harris Price MD [address] [place] [phone] Social History Tobacco Use Types Packs/Day [...] Encounters Date Type Department Care Team ([facility] Contact Info) Description 04/21/2024 15:00 EST Office Visit [facility] Neurology - S [place] [address] [place] [address] Robby Abraham MD [address] [place] [address] 2 [place] [phone] documented as of this encounter Procedures Procedure Name Priority Date/Time Associated Diagnosis Comments COMPLETE BLOOD COUNT WITH DIFFERENTIAL (AUTO) Routine 04/23/2019 16:50 EST COMPREHENSIVE METABOLIC PANEL (CMP) Routine 04/23/2019 16:50 EST documented in this encounter Results * (ABNORMAL) COMPREHENSIVE METABOLIC PANEL (CMP) (04/23/2019 16:50 EST) Albumin % 4.4 3.4 - 4.9 g/dL 04/23/2019 17:14 [facility] ALKALINE PHOSPHATASE - [facility] 64 38 - 126 U/L 04/23/2019 17:14 [facility] BILIRUBIN TOTAL 0.5 0.2 - 1.3 mg/dL 04/23/2019 17:14 [facility] BUN - [facility] 8(L) 10 - 26 mg/dL 04/23/2019 17:14 [facility] CALCIUM - [facility] 9.7 8.5 - 10.5 mg/dL 04/23/2019 [...] [facility] GLUCOSE - [facility] 117(H) 70 - 100 mg/dL 04/23/2019 17:14 [facility] Potassium 4.4 3.5 - 5.0 mEq/L 04/23/2019 17:14 [facility] Sodium 139 136 - 145 mEq/L 04/23/2019 17:14 [facility] TOTAL PROTEIN - [facility] 7.4 6.2 - 8.2 gm/dL 04/23/2019 17:14 [facility] SGOT/AST - [facility] 23 14 - 36 U/L 04/23/2019 17:14 [facility] SGPT/ALT - [facility] 22 9 - 52 U/L 0 17:14 [facility] 04/23/2019 16:5 0 EST 04/23/2019 16:56 EST Harris Price MD CHEMISTRY & BLOOD GAS ORDERABLES [facility] * COMPLETE BLOOD COUNT WITH DIFFERENTIAL [...] [facility] HEMATOCRIT - [facility] 40.0 34.9 - 44.4 % 04/23/2019 17:05 [facility] HEMOGLOBIN - [facility] 13.6 11.6 - 15.2 g/dl 04/23/2019 17:05 [facility] IG# - [facility] 0.01 0 - 0.7 10e3/uL 04/23/2019 17:05 [facility] IG% - [facility] 0.1 0 - 0.9 % 04/23/2019 17:05 [facility] LYMPH # - [facility] 2.7 1.09 - 3.3 10e3/ul 04/23/2019 17:05 [facility] LYMPH% - [facility] 35.3 20 - 40 % 04/23/2019 17:05 [facility] MEAN CORPUSCULAR HGB - [facility] 32.2 26.7 - 33.3 pg 04/23/2019 17:05 [facility] MEAN CORPUSCULAR HGB CONC - [facility] 34.0 32.1 - 35.9 g/dL 04/23/2019 17:05 [facility] MEAN CELL VOLUME - [facility] 94.8 81 - 98 fl 04/23/2019 17:05 [facility] MONO # - [facility] 0.5 0.1 - 0.8 10e3/uL 04/23/2019 17:05 [facility] MONO% - [facility] 5.9 0 - 12 % 04/23/2019 17:05 [facility] PLATELET COUNT 321 141 - 377 10e3/ul 04/23/2019 17:05 [facility] RED BLOOD COUNT - [facility] 4.22 3.86 - 5.04 10e3/ul 04/23/2019 17:05 [facility] RED CELL DISTRI WIDTH - [facility] 12.3 <14.7 % 04/23/2019 17:05 [facility] WHITE BLOOD COUNT - [facility] 7.6 4.0 - 12.4 10e3/ul 04/23/2019 17:05 [facility] 04/23/2019 16:5 0 EST 04/23/2019 16:56 EST Harris Price MD HEMATOLOGY & PF4 ORDERABLES [facility] documented in this encounter Visit Diagnoses Not on filedocumented in this encounter Care Teams Wool Hat Sanding Machine Operator Relationship Specialty Start Date End Date Jennifer Sr MD [address] [place] [address] PCP - General 12/03/18 08/29/22 documented as of this encounter
--- OUTSIDE RECORDS SUMMARY | 2024-01-04 14:48 | XMS_ITS | Encounter Summary ---
Author Organization [facility] Address [address] [place] [address] Care Team Providers Care Kettle Tender Name Role Phone Jennifer Sr MD Primary Care Provider [phone]- [phone] Reason for Visit * Reason Comments Obesity online intro Encounter Details Date Type Department Care Team ([facility] Contact Info) Description 03/04/2019 9:00 EST Education [facility] Bariatric Surgery [place] [address] [place] [address] Obesity, unspecified classification, unspecified obesity type, unspecified [...] Aydee Johns was given an appointment with eMlba Casper the program psychologist which is the next step in the Metabolic and Bariatric Surgery Program. documented in this encounter Plan of Treatment Upcoming Encounters Date Type Department Care Team (Late st Contact Info) Description 04/21/2024 15:00 EST Office Visit [facility] Neurology - S [address] [address] Robby Abraham MD [address] [place] [address], Level 2 [place] [phone] documented as of this encounter Visit Diagnoses Diagnosis Obesity, unspecified classification, unspecified obesity type, unspecified whether serious comorbidity present- Primary documented in this encounter Care Teams Kettle Tender Relationship Specialty Start Date End Date Jennifer Sr MD [address] [facility] [address] [phone] PCP - General 12/03/18 08/29/22 documented as of this encounter
--- OUTSIDE RECORDS SUMMARY | 2024-01-04 14:48 | XMS_ITS | Encounter Summary ---
Author Organization [facility] Address [address] [place] [address] Care Team Providers Care Sales Service Executive Name Role Phone Jacey Amador Primary Care Provider [phone] Reason for Visit * Reason Onset Date Comments Appointment Related 11/29/2023 Encounter Details Date Type Department Care Team ([facility] st Contact Info) Description 11/29/2023 Telephone [facility] Neurology - S [address] [phone] Robby Abraham MD [address] [place] [address] [address] 2 [place] [phone] Appointment Related Social History Tobacco Use Types [...] Info) Description 04/21/2024 15:00 EST Office Visit [facility] Neurology - S [address] [address] Robby Abraham MD [address] [place] [address], Level 2 [place] [phone] documented as of this encounter Visit Diagnoses Not on filedocumented in this encounter Care Teams Sales Service Executive Relationship Specialty Start Date End Date Jacey Amador FNP Teena HANEY [address] [place] [phone] PCP - General Family Medicine - Primary Care 08/30/22 documented as of this encounter
--- OUTSIDE RECORDS SUMMARY | 2024-01-04 14:48 | XMS_ITS | Encounter Summary ---
Author Organization [facility] Address [address] [place] [address] Care Team Providers Care Enamel Drier Name Role Phone Jennifer Sr MD Primary Care Provider [phone]- [phone] Reason for Visit * Reason Comments Back Pain Leg Pain Facial Pain bilateral pain and n umbness. Facial drooping. Pt says affecting her sight Arm Pain left * Consult (Routine) - Specialty Report Received Specialty Diagnoses / Procedures [facility] Referred To Contact Pain Medicine Diagnoses Chronic bilateral low back pain without sciatica Dewayne Gomez PA-C [address] [facility] [place] [address] [facility] [address] [place] [address] Referral ID Status Reason Start Date Expiration Date Visits Requested Visits Authorized [id number] Specialty Report Received Specialty Services Required 03/11/2019 1 1 Encounter Details Date Type Department Care Team (Latest Contact Info) Description 06/16/2019 13:00 EDT Initial consult [facility] Interventional Pain [address] [place] [address] Ruth Gomez PA-C [address] [facility] [address] [place] [address] Bilateral occipital neuralgia (Primary Dx); [...] Service: 06/13/2019 [address] you been seen at [facility] pain clinic before?: Yes If yes, last appointment date: 08/29/2017 What were they seen for at that time: CONSULT BILATERAL FOOT PAIN Referring Physician (for new pts or re-referral):DEWAYNE GOMEZ [[id number]] Most recent note from referring provider related [...] - May have to call imaging facility: [facility] For New Consults, is there any pending Imaging? If in question, ask provider? Previous surgeries on the problem area: 1. NO KNOWN SURGERIES * Ruth Gomez PA-C - 06/16/2019 1300 EDT [facility] OP PAIN CONSULT Patient [...] Diagnosis Date ??? Angina at rest ([facility]) ??? Asthma ??? Chronic back pain ??? Chronic neck pain ??? DDD (degenerative disc disease), thoracolumbar ??? Degenerative joint disease ??? Depression ??? Diarrhea ??? Environmental allergies ??? GERD (gastroesophageal reflux disease) ??? Headache(784.0) ??? Heart murmur ??? Hyperlipidemia ??? Neuromuscular disease ([facility]) ??? Seizures (HCC-CMS) ??? SOB (shortness of [...] file Gets together: Not on file Attends hoahaoism service: Not on file Active member of [...] [facility] [place] Neu[facility] - S [address] [address] Robby Abraham MD [address] [facility], Level 2 [place] [phone] documented as of this encounter Visit Diagnoses Diagnosis Bilateral occipital neuralgia- Primary Other syndromes affecting cervical region Myofascial pain Mylagia and myositis, unspecified Chronic midline thoracic back pain documented in this encounter Care Teams Enamel Drier Relationship Specialty Start Date End Date Jennifer Sr MD [address], [address] [address] PCP - General 12/03/18 08/29/22 documented as of this encounter
--- OUTSIDE RECORDS SUMMARY | 2024-01-04 14:48 | XMS_ITS | Encounter Summary ---
Author Organization [facility] Address [address] [place] [address] Care Team Providers Care Virtual Assistant For Advertisers Name Role Phone Jennifer Sr MD Primary Care Provider [phone]- [phone] Encounter Details Date Type Department Care Team [...] 04/21/2024 15:00 EST Office Visit [facility] Neurology - S [place] [address] [place], [place] [phone] Robby Abraham MD [address] [place] [address], Level 2 [place] [address] documented as of this encounter Visit Diagnoses Not on filedocumented in this encounter Care Teams Virtual Assistant For Advertisers Relationship Specialty Start Date End Date Jennifer Sr MD [address] [place] [address] PCP - General 12/03/18 08/29/22 documented as of this encounter
--- OUTSIDE RECORDS SUMMARY | 2024-01-04 14:48 | XMS_ITS | Encounter Summary ---
Author Organization [facility] Address [address] [place] [address] Care Team Providers Care Corporate Investigator Name Role Phone Jennifer Sr MD Primary Care Provider [phone]- [phone] Reason for Visit * Reason Onset Date Comments Appointment Related 05/15/2019 Encounter Details Date Type Department Care Team ([facility] st Contact Info) Description 05/15/2019 Telephone [facility] Interventional Pain [address] [facility] [place] [address] Ruth Gomez PA-C [address] [facility] [address] [place] [address] Appointment Related Social History Tobacco [...] Info) Description 04/21/2024 15:00 EST Office Visit [facility] Neurology - S [address] [address] Robby Abraham MD [address] [place] [address] Level 2 [place] [phone] documented as of this encounter Visit Diagnoses Not on filedocumented in this encounter Care Teams Corporate Investigator Relationship Specialty Start Date End Date Jennifer Sr MD [address], [address] [phone] PCP - General 12/03/18 08/29/22 documented as of this encounter
--- OUTSIDE RECORDS SUMMARY | 2024-01-04 14:48 | XMS_ITS | Encounter Summary ---
Author Organization [facility] Address [address] [place] [address] Care Team Providers Care Science Analyst Name Role Phone Jennifer Sr MD Primary Care Provider +1- [phone] Reason for Visit * Reason Onset Date Comments Appointment Related 06/16/2019 Encounter Details Date Type Department Care Team ([facility] st Contact Info) Description 06/16/2019 Telephone [facility] Interventional Pain [address] [facility] [place] [address] Stefani Mcclellan MD [address] [facility] [address] [place] [address] Appointment Related Social History Tobacco [...] 04/21/2024 15:00 EST Office Visit [facility] Neurology - S [address] [phone] Robby Abraham MD [address] [place] [address] Level [address] [place] [phone] documented as of this encounter Visit Diagnoses Not on filedocumented in this encounter Care Teams Science Analyst Relationship Specialty Start Date End Date Jennifer Sr MD [address] [place] [address] PCP - General 12/03/18 08/29/22 documented as of this encounter
--- OUTSIDE RECORDS SUMMARY | 2024-01-04 14:48 | XMS_ITS | Encounter Summary ---
Author Organization [facility] [place] [address] Care Team Providers Care Interlacer Name Role Phone Unavailable Primary Care Provider Unavailabl e Encounter Details Date Type Department Care Team (Late st Contact Info) Description 02/13/2007 - 02/13/2007 11:59 PM EST Hospital Encounter Radiology Library at [facility] [place] [phone] [facility] Disposition: Home Social History [...] Office Visit [facility] [place] [phone] Kenneth Martin MD [facility] [place] [address] 02/19/2024 1:00 PM EST Office Visit [place] [phone] Mike Ko MD [facility] [place] [address] documented as of this encounter Procedures Procedure Name Priority Date/Time Associated Diagnosis Comments FILM LIBRARY STORAGE ONLY MR HEAD Routine 02/13/2007 12:00 AM EST Pain documented in this encounter Results * Film Library- Storage only MR Head (02/13/2007 12:00 AM EST) Narrative SSUANA CHOWDHURY - 08/17/2015 8:24 AM EDT This exam is for storage only and is auto-finalizing. Dr Reyes [facility] FILM LIBRARY ORD ERABLES [place], [place] documented in this encounter Visit Diagnoses Diagnosis Pain Generalized pain documented in this encounter
--- OUTSIDE RECORDS SUMMARY | 2024-01-04 14:48 | XMS_ITS | Encounter Summary ---
Author Organization [facility] Address [address] [place] [address] Care Team Providers Care Regional Trainer Name Role Phone Jennifer Sr MD Primary Care Provider +1- [phone] Jacey Amador Primary Care Provider Encounter Details Date Type Department Care Team (Late Contact Info) Description 08/23/2020 Lab Requisition [facility] Pathology & Laboratory Medicine - [address] [address] Outr Resulting Lab, Provider Social History Tobacco [...] Description 04/21/2024 15:00 EST Office Visit [facility] Neurology - S [place] [address] [place] [address] Robby Abraham MD [address] [facility], Level 2 [place] [address] documented as of this encounter Procedures Procedure Name Priority Date/Time Associated Diagnosis Comments SPEP WITH IMMUNOTYPING PERFORMABLE Today 08/23/2020 12:11 EDT SPEP WITH IMMUNOTYPING Routine 08/23/2020 12:11 EDT PROTEIN, TOTAL Today 08/23/2020 12:11 EDT documented in this encounter Results * SPEP WITH IMMUNOTYPING PERFORMABLE (08/23/2020 12:11 EDT) Albumin % 62.6 55.8 - 66.1 % 08/25/2020 6:27 [facility] Alpha-1 % 3.4 2.9 - 4.9 % 08/25/2020 6:27 [facility] Alpha-2 % 10.1 7.1 - 11.8 % 08/25/2020 6:27 [facility] Beta % 11.2 8.4 - 13.1 % 08/25/2020 6:27 [facility] Gamma % 12.7 11.1 - 18.8 % 08/25/2020 6:27 [facility] SPEP Comment No apparent monoclonal protein seen on serum electrophoresis 08/25/2020 6:27 [facility] Comment:See scanned/suppleme ntary report. Immunotyping , Serum Current Interpretation: Negative for monoclonal immunoglobulins. Reviewed by: Antonio Sorensen MD 08/24/2020 15:12 08/25/2020 6:27 [facility] Total Protein 7.2 6.3 - 8.2 g/dL 08/25/2020 6:27 [facility] Blood VENOUS BLOOD / Unknown 08/23/2020 12:11 EDT 08/23/2020 21:28 EDT Provider Outr Resulting Lab CHEMISTRY & BLOOD GAS ORDERABLES [facility] [address] [place] [address] * PROTEIN, TOTAL (08/23/2020 12:11 EDT) Blood VENOUS BLOOD / Unknown 08/23/2020 12:11 EDT 08/23/2020 21:28 EDT Provider Outr Resulting Lab CHEMISTRY & BLOOD GAS ORDERABLES Performing Organization Address City/[facility] [employer] de Phone Number [facility] [address] [place] [address] documented in this encounter Visit Diagnoses Not on filedocumented in this encounter Care Teams Regional Trainer Relationship Specialty Start Date End Date Jennifer Sr MD [address], [address] [address] PCP - General 12/03/18 08/29/22 Jacey Amador FNP [facility]AFSA TAMEZ [address] [phone] PCP - General Family Medicine - Primary Care 08/30/22 documented as of this encounter
--- OUTSIDE RECORDS SUMMARY | 2024-01-04 14:48 | XMS_ITS | Encounter Summary ---
Author Organization [facility] [place] [address] Care Team Providers Care Surgical Processor Name Role Phone Melina Edge MD Primary Care Provider Encounter Details Date Type Department Care Team (Late st Contact Info) Description 09/17/2013 Orders Only Orthopaedics at [place] [phone] Linwood Escoto DPM [facility] [place] [address] Social History Tobacco Use Types Packs/Day Years [...] Office Visit [facility] [place] [phone] Kenneth Martin MD [facility] [place] [address] 02/19/2024 1:00 PM EST Office [place] [address] Mike Ko MD [facility] [place] [address] documented as of this encounter Procedures Procedure [...] filedocumented in this encounter Care Teams Surgical Processor Relationship Specialty Start Date End Date Melina Edge MD [address] [place] [address] PCP - General 05/25/14 07/09/14 documented as of this encounter
--- OUTSIDE RECORDS SUMMARY | 2024-01-04 14:48 | XMS_ITS | Encounter Summary ---
Author Organization [facility] Address [address] [place] [address] Care Team Providers Care Barrel Endshaker Adjuster Name Role Phone Jennifer Sr MD Primary Care Provider +1- [phone] Reason for Visit * Reason Comments Obesity Psych Eval Encounter Details Date Type Department Care Team ([facility] Contact Info) Description 03/10/2019 14:00 EST Office Visit [facility] Bariatric Surgery [facility] [address] [place], [place] [address] Melba Casper, PhD [address] [place] [phone] Adjustment disorder with depressed mood (Primary Dx) [...] Pt is open to guidance from a field staff and stated that she has the time [...] [facility] - S [address] [address] Robby Abraham MD [address] [place] [address], Level 2 [place] [phone] documented as of this encounter Visit Diagnoses Diagnosis Adjustment disorder with depressed mood- Primary documented in this encounter Care Teams Barrel Endshaker Adjuster Relationship Specialty Start Date End Date Jennifer Sr MD [facility], [address] [place] [address] PCP - General 12/03/18 08/29/22 documented as of this encounter
--- OUTSIDE RECORDS SUMMARY | 2024-01-04 14:48 | XMS_ITS | Encounter Summary ---
Author Organization [facility] [place] [address] Care Team Providers Care Patient Support Assistant Name Role Phone Melina Edge MD Primary Care Provider [phone] Encounter Details Date Type Department Care Team (Late st Contact Info) Description 03/02/2014 Orders Only Orthopaedics at [place] [phone] Linwood Escoto DPM [facility] [address] [place] [address] Social History Tobacco Use Types Packs/Day Years [...] Office Visit [facility] [place] [phone] Kenneth Martin MD [facility] [place] [address] 02/19/2024 1:00 PM EST Office [place] [address] Mike Ko MD [facility] [place] [address] documented as of this encounter Procedures Procedure [...] on filedocumented in this encounter Care Teams Patient Support Assistant Relationship Specialty Start Date End Date Melina Edge MD [address] [place] [address] PCP - General 05/25/14 07/09/14 documented as of this encounter
--- OUTSIDE RECORDS SUMMARY | 2024-01-04 14:48 | XMS_ITS | Encounter Summary ---
Author Organization [facility] Address [address] [place] [address] Care Team Providers Care Ironing Worker Name Role Phone Jennifer Sr MD Primary Care Provider [phone]- [phone] Encounter Details Date Type Department Care Team (Late Contact Info) Description 02/17/2019 Orders Only [facility] Total Joint Program - [facility] [address] [place] [address] Altagracia Lozano NP [address] [place] [address] Right hip pain (Primary Dx); [...] Office Visit [facility] Neurology - S [address] [address] Robby Abraham MD 1 [facility], Level 2 [place] [address] documented as of this encounter Visit Diagnoses Diagnosis Right hip pain- Primary Pain in joint, pelvic region and thigh Left hip pain Pain in joint, pelvic region and thigh documented in this encounter Care Teams Ironing Worker Relationship Specialty Start Date End Date Jennifer Sr MD [address], [address] [address] PCP - General 12/03/18 08/29/22 documented as of this encounter
--- OUTSIDE RECORDS SUMMARY | 2024-01-04 14:48 | XMS_ITS | Encounter Summary ---
Author Organization [facility] Address [address] [place] [address] Care Team Providers Care Corrections Sergeant Name Role Phone Jennifer Sr MD Primary Care Provider [phone]- [phone] Reason for Visit * Reason Onset Date Comments Appointment Related 07/22/2019 Encounter Details Date Type Department Care Team ([facility] st Contact Info) Description 07/22/2019 Telephone [facility] Interventional Pain [address] [place], [place] [phone] Ann-Marie Macias MD [address] [place], [place] [phone] Appointment Related Social History Tobacco Use Types [...] 08/22/2019 due to the [place] Virus per [facility] Protocols. documented in this encounter Plan of Treatment Upcoming Encounters Date Type Department Care Team (Late st Contact Info) Description 04/21/2024 15:00 EST Office Visit [facility] Neurology - S [address] [phone] Robby Abraham MD [address] [place] [address], Level 2 [place] [address] documented as of this encounter Visit Diagnoses Not on filedocumented in this encounter Care Teams Corrections Sergeant Relationship Specialty Start Date End Date Jennifer Sr MD [address], [address] [phone] PCP - General 12/03/18 08/29/22 documented as of this encounter
--- OUTSIDE RECORDS SUMMARY | 2024-01-04 14:48 | XMS_ITS | Encounter Summary ---
Author Organization [facility] Address [address] [place] [address] Care Team Providers Care Commercial Trailer Truck Driver Name Role Phone Jennifer Sr MD Primary Care Provider [phone]- [phone] Reason for Visit * Reason Onset Date Comments Other 07/01/2019 Encounter Details Date Type Department Care Team ([facility] Contact Info) Description 07/01/2019 Telephone [facility] Interventional Pain [address] [facility] [place] [address] Stefani Mcclellan MD 62 [facility] [address] [place] [address] Other Social History Tobacco Use [...] Info) Description 04/21/2024 15:00 EST Office Visit [facility] Neurology - S [address] [address] Robby Abraham MD [address] [place] [address], Level [address] [place] [phone] documented as of this encounter Visit Diagnoses Not on filedocumented in this encounter Care Teams Commercial Trailer Truck Driver Relationship Specialty Start Date End Date Jennifer Sr MD [address], [address] [address] PCP - General 12/03/18 08/29/22 documented as of this encounter
--- OUTSIDE RECORDS SUMMARY | 2024-01-04 14:48 | XMS_ITS | Encounter Summary ---
Author Organization [facility] Address [address] [place] [address] Care Team Providers Care Airset Caster Name Role Phone Jennifer Sr MD Primary Care Provider [phone]- [phone] Encounter Details Date Type Department Care Team (Late st Contact Info) Description 12/24/2018 Documentation Visit [facility] Neurology - S [address] [phone] Robby Abraham MD [address] [place] [address] [address] 2 [place] [address] Social History Tobacco Use Types [...] at 89. There is a note from [facility] pain clinic in August 2005 where she [...] Info) Description 04/21/2024 15:00 EST Office Visit [facility] Neurology - S [address] [address] Robby Abraham MD [address] [place] [address], Level 2 [place] [address] documented as of this encounter Visit Diagnoses Not on filedocumented in this encounter Care Teams Airset Caster Relationship Specialty Start Date End Date Jennifer Sr MD [address], [address] [address] PCP - General 12/03/18 08/29/22 documented as of this encounter
--- OUTSIDE RECORDS SUMMARY | 2024-01-04 14:48 | XMS_ITS | Encounter Summary ---
Author Organization [facility] Address [address] [place] [address] Care Team Providers Care Fiberglass Container Winding Operator Name Role Phone Jennifer Sr MD Primary Care Provider [phone]- [phone] Jacey Amador Primary Care Provider [phone] Encounter Details Date Type Department Care Team (Latest Contact Info) Description 09/29/2021 Lab Requisition [facility] Pathology & Laboratory Medicine - [address] [address] Glenys Hernandez FNP [address] [place], [place] [address] Encounter for general adult medical examination without [...] Info) Description 04/21/2024 15:00 EST Office Visit [facility] Neurology - S [place] [address] [place], [place] [address] Robby Abraham MD [address] [place] [address], Level 2 [place] [address] documented as of this encounter [...] types, PCR Negative Negative 10/05/2021 19:21 EDT [facility] Comment:No E6 or E7 mRNA is detected from HPV types 16,18,31,33,35,39,45,51,52,56,58,59,66, and 68 by ticket puller mediated amplification. Papanicolaou smear specimen (specimen) CERVIX UTERI STRUCTURE / Unknown 09/27/2021 9:50 EDT 10/03/2021 14:58 EDT Glenys QUICK MICROBIOLOGY - GENER AL ORDERABLES [facility] [address] [place] [address] * PAP TEST (09/27/2021 9:50 EDT) Specimens A. Cervix and/or Endocervix , ThinPrep Imaging System with Manual Evaluation 10/05/2021 19:22 [facility] Specimen Adequacy Satisfactory for Evaluation - transformation zone component present 10/05/2021 19:22 [facility] General Categorization Negative for intraepithelial lesion or malignancy 10/05/2021 19:22 [facility] Attestation . 10/05/2021 19:22 [facility] at 1922 Clinical History SEE BELOW 10/06/19 19:22 [facility] HPV The result for the Human Papillomavirus (HPV) Detection-High Risk Types is Negative. No E6 or E7 mRNA is detected from HPV types 16,18,31,33,35,39 ,45,51,52,56,58,5 9,66, and 68 by ticket puller mediated amplification.Tete ting was performed on specimen [id number] and was resulted on 10/05/2021 1915 EDT by HOLLY, LAB INSTRUMENT RESULTS IN 10/05/2021 19:22 T [facility] Performing Lab [facility] 10/05/2021 19:22 T [facility] Scanned Images 10/05/2021 19:22 T [facility] Papanicolaou smear specimen (specimen) CERVIX UTERI STRUCTURE / Unknown 09/27/2021 9:50 EDT 09/29/2021 12:56 EDT Glenys Hernandez MANUAL TRAINING TEACHER PATHOLOGY ORDERABLES [facility] [address] [place] [address] documented in this encounter Visit Diagnoses Diagnosis Encounter for general adult medical examination without abnormal findings Unspecified general medical examination Encounter for screening for malignant neoplasm of cervix Screening for malignant neoplasm of the cervix Encounter for screening for human papillomavirus (HPV) Special screening examination for human papillomavirus (HPV) documented in this encounter Care Teams Fiberglass Container Winding Operator Relationship Specialty Start Date End Date Jennifer Sr MD [address] [place] [address] PCP - General 12/03/18 08/29/22 Jacey Amador FNP [address] [facility] [address] [place] [address] PCP - General Family Medicine - Primary Care 08/30/22 documented as of this encounter
--- OUTSIDE RECORDS SUMMARY | 2024-01-04 14:48 | XMS_ITS | Encounter Summary ---
Author Organization [facility] Address [address] [place] [address] Care Team Providers Care Manager Rehab Name Role Phone Jennifer Sr MD Primary Care Provider [phone]- [phone] Jacey Amador Primary Care Provider [phone] Encounter Details Date Type Department Care Team ([facility] Contact Info) Description 12/22/2021 Lab Requisition [facility] Pathology & Laboratory Medicine - [address] [address] Outr Resulting Lab, Provider Social History Tobacco [...] Upcoming Encounters Date Type Department Care Team ([facility] Contact Info) Description 04/21/2024 15:00 EST Office Visit [facility] Neurology - S [place] [address] [place] [address] Robby Abraham MD [address] [place] [address], Level 2 [place] [address] documented as of this encounter Procedures Procedure Name Priority Date/Time Associated Diagnosis Comments PTH INTACT Routine 12/22/2021 12:25 EDT INSULIN Routine 12/22/2021 12:25 EDT documented in this encounter Results * PTH INTACT (12/22/2021 12:25 EDT) Intact PTH 56 19 - 88 pg/mL 12/23/2021 9:41 EDT [facility] Blood VENOUS BLOOD / Unknown 12/22/2021 12:25 EDT 12/22/2021 21:08 EDT Provider Outr Resulting Lab CHEMISTRY & BLOOD GAS ORDERABLES [facility] [address] [place] [address] * INSULIN (12/22/2021 12:25 EDT) Insulin 15.1 <29.0 uIU/mL 12/26/2021 9:41 EDT [facility] Comment: Displayed Reference Range applies to fasting specimens only. Blood VENOUS BLOOD / Unknown 12/22/2021 12:25 EDT 12/22/2021 21:08 EDT Provider Outr Resulting Lab CHEMISTRY & BLOOD GAS ORDERABLES [facility] [address] [place] [address] documented in this encounter Visit Diagnoses Not on filedocumented in this encounter Care Teams Manager Rehab Relationship Specialty Start Date End Date Jennifer Sr MD [address], [address] [place] [address] PCP - General 12/03/18 08/29/22 Jacey Amador FNP [address] [facility] 1 [place] [address] PCP - General Family Medicine - Primary Care 08/30/22 documented as of this encounter
--- OUTSIDE RECORDS SUMMARY | 2024-01-04 14:48 | XMS_ITS | Encounter Summary ---
Author Organization [facility] Address [address] [place] [address] Care Team Providers Care Early Education Teacher Name Role Phone Jennifer Sr MD Primary Care Provider [phone] Reason for Referral * Consult (Routine) - Specialty Report Received Specialty Diagnoses / Procedures [facility] Referred To Contact Pain Medicine Diagnoses Chronic bilateral low back pain without sciatica Nick Gomez PA-C [address] [place] [address] [place] [address] [facility] [address] [place] [address] Referral ID Status Reason Start Date Expiration Date Visits Requested Visits Authorized [id number] Specialty Report Received Specialty Services Required 03/11/2019 [...] Encounter Details Date Type Department Care Team ([facility] st Contact Info) Description 03/11/2019 15:30 EST Office Visit [facility] Spine Program - [address] [place] [address] Nick Gomez PA-C [address] [facility] [place] [address] Chronic bilateral low back pain [...] with 25 minutes of my time spent [id number] discussing symptoms objective complaints and treatment options documented in this encounter Plan of Treatment Upcoming Encounters Date Type Department Care Team (Late st Contact Info) Description 04/21/2024 15:00 EST Office Visit [facility] Neurology - S [address] [address] Robby Abraham MD [address] [place] [address] Level 2 [place] [address] Scheduled Referrals Name Type Priority Associated Diagnoses Order Schedule AMB CONS/FOLLOW UP PAIN INTERVENTIONAL Outpatient Referral Routine Chronic bilateral low back pain without sciatica Ordered: 03/11/2019 documented as of this encounter Visit Diagnoses Diagnosis Chronic bilateral low back pain without sciatica- Primary documented in this encounter Care Teams Early Education Teacher Relationship Specialty Start Date End Date Jennifer Sr MD [facility] [facility] [address], [address] [address] PCP - General 12/03/18 08/29/22 documented as of this encounter
--- OUTSIDE RECORDS SUMMARY | 2024-01-04 14:48 | XMS_ITS | Encounter Summary ---
Author Organization [facility] Address [address] [place] [address] Care Team Providers Care Mill Tender Warm Up Name Role Phone Jennifer Sr MD Primary Care Provider [phone] Reason for Referral * PT/OT/ST (Routine) - Specialty Report Received Specialty Diagnoses / Procedures Referred By Mayda jalloh Referred To Contact Diagnoses Trochanteric bursitis of both hips Chronic right-sided low back pain, unspecified whether sciatica present Altagracia Lozano NP [address] [place] [address] Referral ID Status Reason Start Date Expiration Date Visits Requested Visits Authorized [id number] Specialty Report Received Specialty Services Required 9 [...] disc degeneration, lumbar region Jennifer Sr MD [address] [facility], [address] [address] [facility] Total [facility] [address] [place] [address] Referral ID Status Reason Start Date Expiration Date Visits Re quested Visits Authorized [id number] Closed 1 1 Encounter Details Date Type Department Care Team (Late st Contact Info) Description 02/19/2019 8:30 EST Office Visit [facility] Total Joint Program - [place] [address] [place] [address] Altagracia Lozano, DOUBLE SPINDLE SHAPER OPERATOR [address] [place] [address] Trochanteric bursitis of both hips [...] this encounter Progress Notes * Altagracia Lozano, NET SQL DEVELOPER - 02/19/2019 0830 EST New Hip pain [...] file Gets together: Not on file Attends caodaism service: Not on file Active member of [...] follow-up with Spine clinic Disposition: follow-up in [facility] in 2-3 months, sooner as needed Dr. Mae was the attending physician available in the clinic today if needed. A consultation wasnot required. documented in this encounter Plan of Treatment Upcoming Encounters Date Type Department Care Team (Late st Contact Info) Description 04/21/2024 15:00 EST Office Visit [facility] Neurology - S [address] [address] Robby Abraham MD [address] [place] [address], Level 2 [place] [address] Scheduled Referrals Name Type Priority Associated Diagnoses [...] present documented in this encounter Care Teams Mill Tender Warm Up Relationship Specialty Start Date End Date Jennifer Sr MD [address], [address] [address] PCP - General 12/03/18 08/29/22 documented as of this encounter
--- OUTSIDE RECORDS SUMMARY | 2024-01-04 14:48 | XMS_ITS | Encounter Summary ---
Author Organization [facility] Address [address] [place] [address] Care Team Providers Care Director Of Veterans Affairs Name Role Phone Jennifer Sr MD Primary Care Provider [phone]- [phone] Encounter Details Date Type Department Care Team (Late Contact Info) Description 02/12/2019 Orders Only [facility] Total Joint Program - [facility] [address] [place] [address] Altagracia Lozano NP [address] [place] [address] Bilateral hip pain (Primary Dx) [...] Visit [facility] Neurology - S [place] 1 [place] [address] Robby Abraham MD 1 [facility], Level 2 [place] [address] documented as of this encounter Visit Diagnoses Diagnosis Bilateral hip pain- Primary Pain in joint, pelvic region and thigh documented in this encounter Care Teams Director Of Veterans Affairs Relationship Specialty Start Date End Date Jennifer Sr MD [address], [address] [address] PCP - General 12/03/18 08/29/22 documented as of this encounter
--- OUTSIDE RECORDS SUMMARY | 2024-01-04 14:49 | XMS_ITS | Encounter Summary ---
Author Organization [facility] Address [address] [place] [address] Care Team Providers Care Collar Padder Blindstitch Name Role Phone Jennifer Sr MD Primary Care Provider [phone]- [phone] Encounter Details Date Type Department Care Team ([facility] st Contact Info) Description 12/05/2018 Documentation Visit [facility] Neurophysiology - Main [address] [address] Robby Abraham MD [address] [place] [address] Level 2 [place] [address] Social History Tobacco Use Types [...] [facility] Neurology - S [address] [address] Robby Abraham MD [address] [place] [address], Level [address] [place] [phone] documented as of this encounter Visit Diagnoses Not on filedocumented in this encounter Care Teams Collar Padder Blindstitch Relationship Specialty Start Date End Date Jennifer Sr MD [address], [address] [address] PCP - General 12/03/18 08/29/22 documented as of this encounter
--- OUTSIDE RECORDS SUMMARY | 2024-01-04 14:49 | XMS_ITS | Encounter Summary ---
Author Organization [facility] Address [address] [place] [address] Care Team Providers Care Pharmacy Tech Customer Service Name Role Phone Obey Osborn APRN Primary Care Provider [phone] Reason for Visit * Reason Onset Date Comments New Patient Visit 03/21/2018 Encounter Details Date Type Department Care Team ([facility] st Contact Info) Description 03/21/[address] [facility] Neurology - [address] [address] Unknown, Doctor New Patient Visit Social History [...] Pisano - 03/26/2018 1308 EST Lashaun with [facility] is calling to confirm the [...] 15:00 EST Office Visit [facility] Neurology - S [address] [address] Robby Abraham MD 1 [facility], Level 2 [place] [address] documented as of this encounter Visit Diagnoses Not on filedocumented in this encounter Care Teams Pharmacy Tech Customer Service Relationship Specialty Start Date End Date Obey Osborn APRN [address] [place] [address] [address] [place] [id number] PCP - General 08/29/17 10/10/18 documented as of this encounter
--- OUTSIDE RECORDS SUMMARY | 2024-01-04 14:49 | XMS_ITS | Encounter Summary ---
Author Organization [facility] Address [address] [place] [address] Care Team Providers Care Beater Operator Name Role Phone Obey Osborn APRN Primary Care Provider [phone] Reason for Referral * Consult (Routine) - Closed Specialty Diagnoses / Procedures [facility] Referred To Contact Neurology Diagnoses Chronic nonintractable headache, unspecified headache type Robby Abraham MD [address] [place] [address] Neurology 2c, Resident Referral ID Status Reason Start Date Expiration Date V isits Requested Visits Authorized [id number] Closed Specialty Services Required 03/04/2018 1 1 Question Answer Reason for Request: general neuro resident clinic for headaches Reason for Visit * Reason Comments Follow-up Neuropathy. Pt would like a prescription for antacid for stomach Encounter Details Date Type Department Care Team (Late st Contact Info) Description 03/04/2018 11:00 EST Office Visit [facility] Neurology - S [address] [address] Robby Abraham MD [address] [place] [address] Chronic nonintractable headache, unspecified headache type [...] hard time getting [facility] of bed to [facility]. She used to work out [...] from her neuropathic pain. The to work [id number]. In addition to discussing this with her [...] to the referring physician Obey Abraham M.D. Fee Clerk of Neurology ABPN Board Certified, Neurology ABEM Board Certified, EMG documented in this encounter Plan of Treatment Upcoming Encounters Date Type Department Care Team (Late st Contact Info) Description 04/21/2024 15:00 EST Office Visit [facility] Neurology - S [address] [address] Robby Abraham MD [address] [place] [address] Level 2 [place] [address] Scheduled Referrals Name Type Priority Associated Diagnoses [...] 12/17/2018 added in this encounter Care Teams Beater Operator Relationship Specialty Start Date End Date Obey Osborn APRN [address] [place] [address] [address] [place] [address] PCP - General 08/29/17 10/10/18 documented as of this encounter
--- OUTSIDE RECORDS SUMMARY | 2024-01-04 14:49 | XMS_ITS | Encounter Summary ---
Author Organization [facility] Address [address] [place] [address] Care Team Providers Care Ekg Tech Name Role Phone Jennifer Sr MD Primary Care Provider [phone]- [phone] Reason for Visit * Reason Comments Follow-up Results discuss lab results/ lab draw Encounter Details Date Type Department Care Team ([facility] st Contact Info) Description 12/17/2018 8:00 EDT Office Visit [facility] Rheumatology & Immunology - [address] [id number] Carl Flood Chi, MD [address] [place] [address], [address] [place] [address] Small fiber neuropathy (Primary Dx); [...] cause of her symptoms. Dx with Guillain [place] 2016 by [facility], which [facility] neurology does not agree with. Has [...] C4 40 dsDNA negative RF negative Agee, SAMPLES AND REPAIRS PREPARER negative SSA, SSB negative Thyroid antibodies negative [...] MONOCLONAL SPIKE SSA ANTIBODIES BY ALMA ROSA SAMPLES AND REPAIRS PREPARER ANTIBODIES BY ALMA ROSA SSB ANTIBODIES BY [...] Info) Description 04/21/2024 15:00 EST Office Visit [facility] Neurology - [address] [address] Robby Abraham MD [address] [place] [address], [address] 2 [place] [address] documented as of this encounter Procedures Procedure Name Priority Date/Time Associated Diagnosis Comments PATHOLOGY - SCANNED 12/18/2018 1 2:00 EDT OUTPATIENT ADD-ON Routine 12/17/2018 18: 06 EDT Positive ADRIANA (antinuclear antibody) OUTPATIENT ADD-ON Routine 12/17/2018 17: 17 EDT Positive ADRIANA (antinuclear antibody) documented in this encounter Results * PATHOLOGY - SCANNED (12/18/2018 12:00 EDT) 12/18/2018 12:0 0 EDT Scan 2 Director Of Physical Security LAB INFO SERVICE AN D SUPPORT & PHONE RESULT * OUTPATIENT ADD-ON (12/17/2018 18:06 EDT) Tests to be added CANCEL RHEUMATOID FACTOR REQUEST PLACED EARLIER, ORDER ALREADY IN FOR ARTHRITIS 1 PROFILE WHICH HAS THE RHEUMATOID FACTOR. 12/17/2018 18:06 EDT [facility] Diagnosis Code SEE [employer], DOS 9.10.19 12/17/2018 18:12 EDT [facility] Number for problems 7 12/17/2018 18:06 EDT [facility] Comment:[id number] Accession number DUPLICATION OF REQUEST 12/17/2018 18:12 T [facility] Acknowledge ABP Done 9 18:12 T [facility] BLOOD SPECIMEN / Unknown 12/17/2018 18:06 EDT 12/17/2018 18:11 EDT Carl Flood MD HEMATOLOGY & PF4 ORD ERABLES [facility] [address] [place] [address] * OUTPATIENT ADD-ON (12/17/2018 17:17 EDT) Tests to be added RHEUMATOID FACTOR 12/17/2018 17:17 EDT [facility] Diagnosis Code SEE EPIC, DOS 9.10.19 12/17/2018 17:44 EDT [facility] Number for problems 7 12/17/2018 17:17 EDT [facility] Comment:[id number] Accession number DUPLICATION OF REQUEST IN ARTHRITIS PANEL 1 12/17/2018 18:14 T [facility] Comment:Corrected on 12/17 A T 1814: Previously reported as RFS TO [id number] Acknowledge ABP Done 9 18:14 [facility] BLOOD SPECIMEN / Unknown 12/17/2018 17:17 EDT 12/17/2018 17:43 EDT Carl Flood MD HEMATOLOGY & PF4 ORD ERABLES [facility] [address] [place] [address] * UA, CHEMICAL AND SEDIMENT ANALYSIS (DIPSTICK AND MICROSCOPIC) (12/17/2018 9:02 EDT) Color, UA Yellow 12/17/2018 9:42 [facility] Clarity, UA Clear 12/17/2018 9:42 [facility] Glucose, UA Neg Neg 12/17/2018 9:42 [facility] Bilirubin, UA Neg Neg 12/17/2018 9:42 [facility] Ketones, UA Neg Neg 12/17/2018 9:42 [facility] Refractometer SG,Urine 1.020 1.001 - 1.035 12/17/2018 9:42 [facility] Blood, UA Neg Neg 12/17/2018 9:42 [facility] pH, UA 5.0 4.6 - 8.0 12/17/2018 9:42 [facility] Protein, UA Neg Neg 12/17/2018 9:42 [facility] Urobilinogen, UA Normal Normal E.U./dl 12/17/2018 9:42 [facility] Nitrite, UA Neg Neg 12/17/2018 9:42 [facility] Leuk Esterase Neg Neg 12/17/2018 9:42 [facility] UA Method Used 12/17/2018 8:51 [facility] Comment: Testing performed using [employer]. Urine RBC Count Automated 0 to 2 0 to 2 /HPF 12/17/2018 9:42 EDT [facility] Urine WBC Count Automated 0 to 3 0 to 3 /HPF 12/17/2018 9:42 EDT [facility] Urine Squamous Epithelial Cell Count, Automated None seen None seen /LPF 12/17/2018 9:42 EDT [facility] Urine Hyaline Casts, Automated < or = 10 < or = 10 /LPF 12/17/2018 9:42 EDT [facility] Urine Bacteria Count, Automated None seen None seen 12/17/2018 9:42 EDT [facility] UA Comment Sediment results 12/17/2018 9:42 EDT [facility] Comment: are unreliable on urines unrefrig >2hrs or refrig >8hrs. Urine specimen (specimen) URINE / Unknown 12/17/2018 9:02 EDT 12/17/2018 9:30 EDT Carl Flood MD URINALYSIS ORDERABLE S Performing Organization Address City/[facility]/ZIP Co de Phone Number [facility] [address] [place] [address] * THYROID ANTIBODIES (12/17/2018 9:02 EDT) Thyroglobulin Ab 19 <61 U/mL 12/18/19 19 12:20 EDT [facility] Thyroperoxidase Ab 44 <61 U/mL 2018 13:08 EDT [facility] Blood specimen (specimen) BLOOD SPECIMEN / Unknown 12/17/2018 9:02 EDT 12/17/2018 10:10 EDT Narrative Authorizing Provider Result Charly Flood MD CHEMISTRY & BLOOD GA S ORDERABLES Performing Organization Address City/[facility]/ZIP Co de Phone Number [facility] [address] [place] [address] * SED. RATE:WESTERGREN (12/17/2018 9:02 EDT) Sed. Rate Westergren 5 0 - 30 mm/hr 12/17/2018 10:21 EDT [facility] Blood specimen (specimen) BLOOD SPECIMEN / Unknown 12/17/2018 9:02 EDT 12/17/2018 10:10 EDT Narrative Authorizing Provider Result Charly Flood MD HEMATOLOGY & PF4 ORD ERABLES Performing Organization Address [facility] Co de Phone Number [facility] [address] [place] [address] * TSH (12/17/2018 9:02 EDT) [facility] TSH 1.46 0.47 - 4.68 uIU/ml 12/17/2018 12:19 EDT [facility] Comment: The results of this assay can be falsely lowered due to the consumption of Biotin. Blood specimen (specimen) BLOOD SPECIMEN / Unknown 12/17/2018 9:02 EDT 12/17/2018 10:10 EDT Narrative Authorizing Provider Result Charly Flood MD CHEMISTRY & BLOOD GA S ORDERABLES Performing Organization Address [facility] de Phone Number [facility] [address] [place] [address] * SSB ANTIBODIES BY ALMA ROSA (12/17/2018 9:02 EDT) [facility] SSB Antibody 3.0 <20 Units 12/19/2018 13:07 EDT [facility] Comment: Negative: <20 Units Weak Positive: 20 - 39 Units Moderate Positive: 40 - 80 Units Strong Positive: >80 Units Results were obtained with the StatuslyVA QUANTA SS-B ALMA ROSA. SS-B values obtained with different manufacturers' assay methods may not be used interchangeably. The magnitude of the reported IgG levels cannot be correlated to an endpoint titer. Blood specimen (specimen) BLOOD SPECIMEN / Unknown 12/17/2018 9:02 EDT 12/17/2018 10:10 EDT Narrative Authorizing Provider Result Charly Flood MD IMMUNOLOGY AND SEROL OGY ORDERABLES Performing Organization Address [facility] Co de Phone Number [facility] [address] [place] [address] * SAMPLES AND REPAIRS PREPARER ANTIBODIES BY ALMA ROSA (12/17/2018 9:02 EDT) [facility] SAMPLES AND REPAIRS PREPARER Antibody 1.7 <20 Units 12/19/2018 13:07 EDT [facility] Comment: Negative: <20 Units Weak Positive: 20 - 39 Units Moderate Positive: 40 - 80 Units Strong Positive: >80 Units Results were obtained with the INOVA QUANTA Lite SAMPLES AND REPAIRS PREPARER ALMA ROSA. SAMPLES AND REPAIRS PREPARER Values obtained with different manufacturers' assay methods may not be used interchangeably. The magnitude of the reported IgG levels cannot be correlated to an endpoint titer. A positive result in the QUANTA Lite SAMPLES AND REPAIRS PREPARER ALMA ROSA indicates the presence of antibodies reactive with the SAMPLES AND REPAIRS PREPARER/Sm complex but cannot distinguish between anti-Sm and anti-SAMPLES AND REPAIRS PREPARER activity. Blood specimen (specimen) BLOOD SPECIMEN / Unknown 12/17/2018 9:02 EDT 12/17/2018 10:10 EDT Carl Flood MD IMMUNOLOGY AND SEROL SAEID ORDERABLES Performing Organization Address [facility] de Phone Number [facility] [address] [place] [address] * SSA ANTIBODIES BY ALMA ROSA (12/17/2018 9:02 EDT) [facility] SSA Antibody 3.2 <20 Units 12/19/2018 13:07 EDT [facility] Comment: Negative: <20 Units [...] AND SEROL OGArtemio ORDERABLES Performing Organization Address [facility] Co de Phone Number [facility] [address] [place] [address] * SPEP, INCLUDES QUANTITATION OF MONOCLONAL SPIKE (12/17/2018 9:02 EDT) [facility] Total Protein 7.0 6.3 - 8.2 g/dl 12/17/2018 11:49 [facility] Albumin % 63.3 55.8 - 66.1 % 12/18/2018 14:11 [facility] Alpha-1 % 3.6 2.9 - 4.9 % 12/18/2018 14:11 [facility] Alpha-2 % 10.1 7.1 - 11.8 % 12/18/2018 14:11 [facility] Beta % 11.4 8.4 - 13.1 % 12/18/2018 14:11 [facility] Gamma % 11.6 11.1 - 18.8 % 12/18/2018 14:11 [facility] Comments 12/18/2018 14:11 [facility] Comment: No apparent monoclonal protein on serum electrophoresis. See Pathology Scanned Report in EPIC. Blood specimen (specimen) BLOOD SPECIMEN / Unknown 12/17/2018 9:02 EDT 12/17/2018 10:10 EDT Narrative Authorizing Provider Result Charly Flood MD CHEMISTRY & BLOOD GA S ORDERABLES Performing Organization Address City/[facility]/ZIP Co de Phone Number [facility] [address] [place] [address] * (ABNORMAL) C REACTIVE PROTEIN (12/17/2018 9:02 EDT) C Reactive Protein 11.4(H) <10.0 mg/L 12/17/2018 12:00 EDT [facility] Blood specimen (specimen) BLOOD SPECIMEN / Unknown 12/17/2018 9:02 EDT 12/17/2018 10:10 EDT Narrative Authorizing Provider Result Charly Flood MD CHEMISTRY & BLOOD GA S ORDERABLES [facility] [address] [place] [address] * CCP ANTIBODIES (12/17/2018 9:02 EDT) CCP Antibodies <2.5 <5.0 U/mL 12/17/2018 13:18 EDT [facility] BLOOD SPECIMEN / Unknown 12/17/2018 9:02 EDT 12/17/2018 10:10 EDT Narrative Authorizing Provider Result Charly Flood MD IMMUNOLOGY AND SEROL OGY ORDERABLES [facility] [address] [place] [address] * CK (12/17/2018 9:02 EDT) CK 55 30 - 135 U/L 12/17/2018 11:49 EDT [facility] Blood specimen (specimen) BLOOD SPECIMEN / Unknown 12/17/2018 9:02 EDT 12/17/2018 10:10 EDT Narrative Authorizing Provider Result Charly Flood MD CHEMISTRY & BLOOD GA S ORDERABLES Performing Organization Address [facility] Co de Phone Number [facility] [address] [place] [address] * (ABNORMAL) COMPREHENSIVE METABOLIC PANEL (CMP) (12/17/2018 9:02 EDT) Potassium 3.9 3.5 - 5.0 mEq/L 12/17/2018 12:00 EDT [facility] Sodium 141 136 - 145 mEq/L 12/17/2018 12:00 EDT [facility] Chloride 103 96 - 110 mEq/L 12/17/2018 12:00 T [facility] CO2 29 22 - 32 mEq/L 12/17/2018 12:00 T [facility] Total Alkaline Phosphatase 56 38 - 126 U/L 12/17/2018 12:00 T [facility] Bilirubin, Total <0.5 <1.4 mg/dl 12/18/19 19 12:00 T [facility] AST 20 15 - 46 U/L 12/17/2018 12:00 T [facility] ALT 18 <34 U/L 12/17/2018 12:00 T [facility] Albumin 4.4 3.4 - 4.9 g/dl 12/17/2018 12:00 T [facility] Total Protein 7.2 6.3 - 8.2 g/dl 12/17/2018 12:00 T [facility] Creatinine 0.59 0.52 - 1.04 mg/dl 12/17/2018 12:00 [facility] GFR, Calculated 104 >60 ml/min/1.7 3m2 12/17/2018 12:00 [facility] Comment: eGFR calculated using CKD-EPI equation for non Americans. Multiply eGFR by 1.16 for Americans. BUN 7(L) 10 - 26 mg/dl 12/17/2018 12:00 T [facility] Calcium 10.1 8.5 - 10.5 mg/dl 12/17/2018 12:00 [facility] Calculated Calcium 9.8 8.5 - 10.5 mg/dl 12/17/2018 12:00 [facility] Glucose, Serum 98 70 - 100 mg/dl 12/17/2018 12:00 [facility] Fasting? No 12/17/2018 8:55 [facility] Blood specimen (specimen) BLOOD SPECIMEN / Unknown 12/17/2018 9:02 EDT 12/17/2018 10:10 EDT Carl Flood MD CHEMISTRY & BLOOD GA S ORDERABLES [facility] [address] [place] [address] * (ABNORMAL) COMPLETE BLOOD COUNT AND DIFFERENTIAL (12/17/2018 9:02 EDT) WBC 8.88 4.0 - 12.4 K/cmm 12/17/2018 10:22 [facility] RBC 4.31 3.86 - 5.04 M/cmm 12/17/2018 10:22 [facility] Hemoglobin 13.8 11.6 - 15.2 gm/dl 12/17/2018 10:22 [facility] HCT 40.6 34.9 - 44.4 % 12/17/2018 10:22 [facility] MCV 94 81 - 98 fl 12/17/2018 10:22 [facility] MCH 32.0 26.7 - 33.3 pg 12/17/2018 10:22 [facility] MCHC 34.0 32.1 - 35.9 gm/dl 12/17/2018 10:22 [facility] RDW-CV 11.9 <14.7 % 12/17/2018 10:22 [facility] RDW-SD 41.2 <50.4 fl 12/17/2018 10:22 [facility] PLT 316 141 - 377 K/cmm 12/17/2018 10:22 [facility] MPV 9.5 9.5 - 12.7 fl 12/17/2018 10:22 [facility] % Neutrophils 50.4 % 12/17/2018 10:22 [facility] % Lymphocytes 38.3 % 12/17/2018 10:22 [facility] % Monocytes 7.0 % 12/17/2018 10:22 [facility] % Eosinophils 3.5 % 12/17/2018 10:22 [facility] % Basophils 0.6 % 12/17/2018 10:22 [facility] % Immature Grans 0.2 % 12/17/2018 10:22 [facility] ABS Neutrophils 4.48 2.20 - 8.85 K/cmm 12/17/2018 10:22 [facility] ABS Lymphs 3.40(H) 1.09 - 3.30 K/cmm 12/17/2018 10:22 [facility] ABS Monocytes 0.62 0.1 - 0.8 K/cmm 12/17/2018 10:22 [facility] ABS Eosinophils 0.31 0.03 - 0.61 K/cmm 12/17/2018 10:22 [facility] ABS Basophils 0.05 0.01 - 0.11 K/cmm 12/17/2018 10:22 [facility] ABS Immature Grans 0.02 0 - 0.06 K/cmm 12/17/2018 10:22 EDT [facility] Type of Diff: Automated 12/17/2018 10:22 EDT [facility] Blood specimen (specimen) BLOOD SPECIMEN / Unknown 12/17/2018 9:02 EDT 12/17/2018 10:10 EDT Carl Flood MD PACKAGES & DNA PROBE ORDERABLES Performing Organization Address [facility] de Phone Number [facility] [address] [place] [address] * (ABNORMAL) ARTHRITIS 1 (12/17/2018 9:02 EDT) Rheumatoid Factor 11 <12.5 IU/mL 2018 12:47 EDT [facility] ADRIANA Interpretation Positive(A) Negative 12/18/2018 14:19 EDT [facility] Comment: For titers greater [...] Titer Pattern 1:320 Homogeneous 12/18/2018 14:19 EDT [facility] Blood specimen (specimen) BLOOD SPECIMEN / Unknown 12/17/2018 9:02 EDT 12/17/2018 10:10 EDT Carl Flood MD IMMUNOLOGY AND SEROL OGY ORDERABLES Performing Organization Address [facility] Co de Phone Number [facility] [address] [place] [address] * SM (AGEE) ANTIBODY (12/17/2018 9:02 EDT) Sm (Agee) Antibody 1.8 <20 Units 12/19/2018 13:07 EDT [facility] Comment: Negative: <20 Units [...] AND SEROL OGY ORDERABLES Performing Organization Address [facility] de Phone Number [facility] [address] [place] [address] * ANGIOTENSIN CONVERTING ENZYME (LESLI) (12/17/2018 9:02 EDT) Pathologist [facility] Angiotensin Converting Enzyme 32 16 - 85 U/L 12/19/2018 8:10 EDT [facility] Comment: Performed or Referred by: [facility], [address] [place] [address] Blood specimen (specimen) BLOOD SPECIMEN / Unknown 12/17/2018 9:02 EDT 12/17/2018 10:10 EDT Narrative Authorizing Provider Result Charly Flood MD CHEMISTRY & BLOOD GA S ORDERABLES Performing Organization Address [facility] Number [facility] [address] [place] [address] * ANCA, IFA (12/17/2018 9:02 EDT) [facility] ANCA Interpretation Negative Negative 12/18/2018 14:19 EDT [facility] Comment: ADRIANA Positive, suggest [...] AND SEROL OGY ORDERABLES Performing Organization Address [facility]/ZIP Co de Phone Number [facility] [address] [place] [address] * ANTI DNA (DOUBLE STRAND) (12/17/2018 9:02 EDT) Anti DNA (DS) <12.3 <30 IU/mL 12/19/2018 14:51 EDT [facility] Comment:Results were obtaine d with the StatuslyVA QUANTA Lite dsDNA SC ALMA ROSA assay. Blood specimen (specimen) BLOOD SPECIMEN / Unknown 12/17/2018 9:02 EDT 12/17/2018 10:10 EDT Carl Flood MD IMMUNOLOGY AND SERWALESKA BREAUX ORDERABLES [facility] [address] [place] [address] documented in this encounter Visit Diagnoses Diagnosis [...] documented as of this encounter Care Teams Ekg Tech Relationship Specialty Start Date End Date Jennifer Sr MD [facility] [place] [address] PCP - General 12/03/18 08/29/22 documented as of this encounter
--- OUTSIDE RECORDS SUMMARY | 2024-01-04 14:49 | XMS_ITS | Encounter Summary ---
Author Organization [facility] Address [address] [place] [address] Care Team Providers Care Hot Wort Settler Name Role Phone None, Provider Primary Care Provider Jennifer Rushing MD Primary Care Provider [phone]- [phone] Reason for Visit * Reason Onset Date Comments Appointment Related 10/15/2018 Encounter Details Date Type Department Care Team ([facility] st Contact Info) Description 10/15/[address] [facility] [place] [address] Randall Corey MD [address] [place] [address] Appointment Related Social History Tobacco Use Types [...] Description 04/21/2024 15:[address] [facility] Neurology - [address] [id number] Robby Abraham MD [address] [place] [address] [address] [place] [phone] documented as of this encounter Visit Diagnoses Not on filedocumented in this encounter Care Teams Hot Wort Settler Relationship Specialty Start Date End Date None, Provider PCP - General 10/11/18 12/02/18 Jennifer Sr MD [address], [address] [id number] PCP - General 12/03/18 08/29/22 documented as of this encounter
--- OUTSIDE RECORDS SUMMARY | 2024-01-04 14:49 | XMS_ITS | Encounter Summary ---
Author Organization [facility] Address [address] [place] [address] Care Team Providers Care Sewing Machine Operator Semiautomatic Name Role Phone Porsha Louise ND Primary Care Provider Malina matamoros Reason for Visit * Reason Comments Back Pain Leg Pain b/l Foot Pain b/l up to knee Headache * Consult (Routine) - Specialty Report Received Specialty Diagnoses / Procedures Referred By [facility] Referred To Contact Pain Medicine Diagnoses Chronic bilateral low back pain without sciatica Nick Gomez PA-C [address] [facility] [place] [address] [facility] [address] [facility] [place] [address] Referral ID Status Reason Start Date Expiration Date Visits Requested Visits Authorized [id number] Specialty Report Received Specialty Services Required 7 1 1 Encounter Details Date Type Department Care Team (Latest Contact Info) Description 07/12/2017 10:45 EDT Office Visit [facility] Interventional Pain [address] [facility] [place] [address] Cristóbal Smith MD [address] [facility] [address] [place] [address] Ann-Marie Escalera MD [address] [place], [place] [id number] Facet arthropathy (HCC-CMS) (Primary Dx); Pain in [...] in this encounter Progress Notes * Ann-Marie aMcias - 07/12/2017 1045 EDT [facility] [...] was initially told that she had Guillain Abiquiu but this was later refuted), and Orthopedics. [...] on disability. Used to work in a [employer]. Would like to go back to work. Smokes 1/2 pack a day. Does not want to quit as she is afraid of weight gain. Says she has gained 50 lbs in the last few months. Lives with her 36 year old in a small apartment. Does not have a PCP, does have a Leg Breaker but isan expensive option for her. How [...] Hyperreflexic patellar reflexes. Assessment: 1. Facet arthropathy ([facility]-CMS) 2. Pain in both feet Plan: Ms. [...] Description 04/21/2024 15:00 EST Office Visit [facility] Neurology - [address] [address] Robby Abraham MD [address] [place] [address], [address] [place] [phone] documented as of this encounter Visit Diagnoses Diagnosis Facet arthropathy- Primary Spondylosis of unspecified site without mention of myelopathy Pain in both feet Pain in limb Myofascial pain Mylagia and myositis, unspecified Numbness of foot Disturbance of skin sensation Chronic intractable headache, unspecified headache type documented in this encounter Care Teams Sewing Machine Operator Semiautomatic Relationship Specialty Start Date End [place] [address] PCP - General 02/06/17 08/28/17 documented as of this encounter
--- OUTSIDE RECORDS SUMMARY | 2024-01-04 14:49 | XMS_ITS | Encounter Summary ---
Author Organization [facility] Address [address] [place] [address] Care Team Providers Care Trailer Driver Name Role Phone Obey Osborn APRN Primary Care Provider [phone] Reason for Referral * Consult (Routine/Next Available) - Specialty Report Received Specialty Diagnoses / Procedures Referred By Contac t Referred To Contact Orthopedic Surgery Diagnoses Pain in both feet Virgil Núñez [place] [address] [place] [address] [facility] [address] [place] [address] Referral ID Status Reason Start Date Expiration Date Visits Requested Visits Authorized [id number] Specialty Report Received Specialty Services Required 08/29/2017 1 1 Question Answer Reason for Request: Bilateral severe foot pain while walking/standing. * Consult (Routine/Next Available) - Specialty Report Received Specialty Diagnoses / Procedures Referred By Contac t Referred To Contact Vascular Surgery Diagnoses Pain in both feet Bilateral leg pain Virgil Núñez [place] [address] [place] [address] [facility] Vasc Surgery [address] [place] [address] Referral ID Status Reason Start Date Expiration Date Visits Requested Visits Authorized [id number] Specialty Report Received Specialty Services Required 08/29/2017 1 1 Question Answer Reason for Request: smoker with sx of angina presenting with bilateral leg pain and color changes of toes with exercise (although also with prolonged sitting) Reason for Visit * Reason Comments Back Pain Encounter Details Date Type Department Care Team (Latest Contact Info) Description 08/29/2017 13:[address] [facility] Interventional Pain [address] [place], [place] [id number] Virgil Núñez [place] [address] [place] [address] Ann-Marie Escalera MD [address] [place], [place] [id number] Pain in both feet (Primary Dx); Myofascial [...] * Gilberto Ann-Marie - 08/29/2017 1345 EDT [facility] OP follow up visit [...] seeing a medical doctor (was seeing a neurophysiological technician before). Says she did discuss her angina [...] with a Vascular surgeon and with a Correctional Sergeant. Ann-Marie Macias MD Attending attestation: I saw [...] [facility] Neurology - S [address] [address] Robby Abraham MD [address] [place] [address], Level 2 [place] [phone] Scheduled Referrals Name Type Priority Associated Diagnoses [...] limb documented in this encounter Care Teams Trailer Driver Relationship Specialty Start Date End Date Obey Osborn APRN [address] [place] [address] DR HANEY [address] [place] [address] PCP - General 08/29/17 10/10/18 documented as of this encounter
--- OUTSIDE RECORDS SUMMARY | 2024-01-04 14:49 | XMS_ITS | Encounter Summary ---
Author Organization [facility] Address [address] [place] [address] Care Team Providers Care Animal Humane Agent Supervisor Name Role Phone Obey Osborn APRN Primary Care Provider [phone] Reason for Visit * Reason Onset Date Comments Other 09/17/2017 Encounter Details Date Type Department Care Team ([facility] Contact Info) Description 09/17/2017 Telephone [facility] Interventional Pain [address] [place], [place] [id number] Virgil Núñez [place] [address] [place] [address] Other Social History Tobacco Use [...] with a Vascular surgeon and with a Teachers' Aide RN attempted to contact patient. LM to [...] difficult. Please advise. Patients phone number is [phone] documented in this encounter Plan of Treatment Upcoming Encounters Date Type Department Care Team (Late st Contact Info) Description 04/21/2024 15:00 EST Office Visit [facility] Neurology - S [place] [address] [place], [place] [address] Robby Abraham MD 1 [facility], Level 2 [place] [phone] documented as of this encounter Visit Diagnoses Not on filedocumented in this encounter Care Teams Animal Humane Agent Supervisor Relationship Specialty Start Date End Date Obey Osborn APRN [address] [place] [address] DR HANEY [address] [place] [id number] PCP - General 08/29/17 10/10/18 documented as of this encounter
--- OUTSIDE RECORDS SUMMARY | 2024-01-04 14:49 | XMS_ITS | Encounter Summary ---
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) [...] Info) Description 04/21/2024 15:00 EST Office Visit [facility] Neurology - S [place] [address] [place] [id number] Robby Abraham MD [address] [place] [address], Level 2 [place] [phone] documented as of this encounter Procedures Procedure Name Priority Date/Time Associated Diagnosis Comments TSH Routine 12/03/2018 15:45 EDT Decline in verbal memory VITAMIN B12 Routine 12/03/2018 15:45 EDT Decline in verbal memory documented in this encounter Results * VITAMIN B12 (12/03/2018 15:45 EDT) Vitamin B-12 678 211 - 911 pg/ml 12/04/2018 10:22 EDT [facility] Blood specimen (specimen) BLOOD SPECIMEN / Unknown 12/03/2018 15:45 EDT 12/03/2018 16:05 EDT Amy Agee MD CHEMISTRY & BLOOD GA S ORDERABLES Performing Organization Address City/[facility]/ZIP Co de Phone Number [facility] [address] [place] [address] * TSH (12/03/2018 15:45 EDT) TSH 0.61 0.47 - 4.68 uIU/ml 12/03/2018 17:01 EDT [facility] Comment: The results of this assay can be falsely lowered due to the consumption of Biotin. Blood specimen (specimen) BLOOD SPECIMEN / Unknown 12/03/2018 15:45 EDT 12/03/2018 16:05 EDT Amy Agee MD CHEMISTRY & BLOOD GA S ORDERABLES [facility] [address] [place] [address] documented in this encounter Visit Diagnoses Diagnosis Decline in verbal memory- Primary documented in this encounter Care Teams Metal Sander And Finisher Relationship Specialty Start Date End Date Jennifer Sr MD [address] [place] [address] PCP - General 12/03/18 08/29/22 documented as of this encounter
--- OUTSIDE RECORDS SUMMARY | 2024-01-04 14:49 | XMS_ITS | Encounter Summary ---
Author Organization [facility] Address [address] [place] [address] Care Team Providers Care Group Exercise Class Instructor Name Role Phone Obey Osborn APRN Primary Care Provider Encounter Details Date Type Department Care Team ([facility] Contact Info) Description 01/14/2018 Phlebotomy Only [address] [address] Edger Tailer, Outpatient Neuropathy (Primary Dx) Social History Tobacco [...] Info) Description 04/21/2024 15:00 EST Office Visit [facility] Neurology - S [place] [address] [place], [place] [address] Robby Abraham MD [address] [place] [address], Level 2 [place] [address] documented as of this encounter Procedures Procedure Name Priority Date/Time Associated Diagnosis Comments SPEP WITH IMMUNOTYPING Routine 01/14/2018 14:18 EDT Neuropathy HEMOGLOBIN A1C Routine 01/14/2018 14:18 EDT Neuropathy documented in this encounter Results * HEMOGLOBIN A1C (01/14/2018 14:18 EDT) Hemoglobin A1C 5.7 % 01/15/2018 9:48 EDT [facility] Comment: Reference Range: <5.7% Normal 5.7-6.4% Prediabetes =>6.5% Diagnostic for diabetes (if confirmed) Goals for glycemic control in diabetes ADA 2017 For non adults with diabetes: ?? Target <7.0% For children and adolescents with type 1 diabetes: ?? Target <7.5% More or less stringent targets may be appropriate for individual patients. Est Avg Glucose 117 mg/dl 8 9:48 EDT [facility] Comment: eAG represents the A1c result expressed as average glucose in mg/dl. Blood specimen (specimen) BLOOD SPECIMEN / Unknown 01/14/2018 14:18 EDT 01/14/2018 15:26 EDT Robby Abraham MD CHEMISTRY & BLOOD GA S ORDERABLES [facility] [address] [place] [address] * SPEP WITH IMMUNOTYPING (01/14/2018 14:18 EDT) Total Protein 7.2 6.3 - 8.2 g/dl 01/14/2018 16:03 EDT [facility] Albumin % 62.4 55.8 - 66.1 % 01/15/2018 13:12 EDT [facility] Alpha-1 % 3.8 2.9 - 4.9 % 01/15/2018 13:12 T [facility] Alpha-2 % 10.3 7.1 - 11.8 % 01/15/2018 13:12 EDT [facility] Beta % 11.4 8.4 - 13.1 % 01/15/2018 13:12 EDT [facility] Gamma % 12.1 11.1 - 18.8 % 01/15/2018 13:12 T [facility] Comments 01/15/2018 13:12 T [facility] Comment: No apparent monoclonal protein on serum electrophoresis. See Pathology Scanned Report in [facility]. Immunotyping, Serum 01/15/2018 14:24 EDT [facility] Comment: Interpretation: Negative for monoclonal immunoglobulins. Interpreted by: ??Antonio Sorensen MD ON 01/15/2018 1424 Reference Range: Negative for monoclonal immunoglobulins. Blood specimen (specimen) BLOOD SPECIMEN / Unknown 01/14/2018 14:18 EDT 01/14/2018 15:26 EDT Robby Abraham MD CHEMISTRY & BLOOD GA S ORDERABLES [facility] [address] [place] [address] documented in this encounter Visit Diagnoses Diagnosis Neuropathy- Primary Mononeuritis of unspecified site documented in this encounter Care Teams Group Exercise Class Instructor Relationship Specialty Start Date End Date Obey Osborn APRN [address] [place] [address] DR [address]ANEY [address] [place] [address] PCP - General 08/29/17 10/10/18 documented as of this encounter
--- OUTSIDE RECORDS SUMMARY | 2024-01-04 14:49 | XMS_ITS | Encounter Summary ---
Author Organization [facility] Address [address] [place] [address] Care Team Providers Care Sausage Tier Name Role Phone Obey Osborn APRN Primary Care Provider [phone] Encounter Details Date Type Department Care Team (Late Contact Info) Description 10/03/2017 Abstract [facility] General Surgery - [address] [address] Macho Fernandez MD [address] [place] [address], Level 5 [place] [phone] Social History Tobacco Use Types Packs/Day Years [...] Visit [facility] Neurology - S [address] [address] Robby Abraham MD 1 [facility], Level 2 [place] [address] documented as of this encounter Visit Diagnoses Not on filedocumented in this encounter Care Teams Sausage Tier Relationship Specialty Start Date End Date Obey Osborn APRN [address] [place] [address] DR HANEY [address] [place] [id number] PCP - General 08/29/17 10/10/18 documented as of this encounter
--- OUTSIDE RECORDS SUMMARY | 2024-01-04 14:49 | XMS_ITS | Encounter Summary ---
Author Organization [facility] Address [address] [place] [address] Care Team Providers Care Herbicide Service Sales Representative Name Role Phone Obey Osborn APRN Primary Care Provider [phone] Reason for Visit * Reason Onset Date Comments Results 06/24/2018 Encounter Details Date Type Department Care Team ([facility] Contact Info) Description 06/24/2018 Telephone [facility] [place] [address] Randall Corey MD [address] [place] [address] Results Social History Tobacco Use Types Packs/Day [...] Encounter - Randall Corey MD - 06/24/2018 4812 EDT Patient updated about result MRI head and MRI cervical spine Both with no acute findings documented in this encounter Plan of Treatment Upcoming Encounters Date Type Department Care Team (Late st Contact Info) Description 04/21/2024 15:00 EST Office Visit [facility] Neurology - S [address] [phone] Robby Abraham MD [address] [place] [address], Level 2 [place] [address] documented as of this encounter Visit Diagnoses Not on filedocumented in this encounter Care Teams Herbicide Service Sales Representative Relationship Specialty Start Date End Date Obey Osborn APRN [address] [place] [address] [facility] 2 [place], [place] [phone] PCP - General 08/29/17 10/10/18 documented as of this encounter
--- OUTSIDE RECORDS SUMMARY | 2024-01-04 14:49 | XMS_ITS | Encounter Summary ---
Author Organization [facility] Address [address] [place] [address] Care Team Providers Care Teletypesetter Name Role Phone Obey Osborn APRN Primary Care Provider [phone] Reason for Visit * Reason Comments New Patient Visit u/s first * Consult (Routine/Next Available) - Specialty Report Received Specialty Diagnoses / Procedures Referred By Contac t Referred To Contact Vascular Surgery Diagnoses Pain in both feet Bilateral leg pain Virgil Núñez [place] [address] [place] [address] [facility] Mp[facility] Surgery [address] [place] [address] Referral ID Status Reason Start Date Expiration Date Visits Requested Visits Authorized [id number] Specialty Report Received Specialty Services Required 08/29/2017 1 1 Encounter Details Date Type Department Care Team ([facility] Contact Info) Description 10/09/2017 15:00 EDT Office Visit [facility] Vascular Surgery - [address] [address] Macho Fernandez MD 111 [facility], Level 5 [place] [phone] Pain in both lower extremities (Primary Dx) [...] Fernandez MD - 10/09/2017 0000 EDT THE VASCULAR SURGERY CONSULTATION - 10/09/2017 Obey Osborn NP [facility] [address] [place] [address], [address] [place] [address] Dear Obey: Thank you for consulting us [...] - Macho Fernandez MD cn Dictation ID: [id number] cc: Obey Osborn SALOON KEEPER, [address], [place] [address] documented in this encounter Plan of Treatment Upcoming Encounters Date Type Department Care Team (Late st Contact Info) Description 04/21/2024 15:00 EST Office Visit [facility] Neurology - S [place] [address] [place], [place] [address] Robby Abraham MD 1 [facility], Level 2 [place] [address] documented as of this encounter Visit Diagnoses Diagnosis Pain in both lower extremities- Primary documented in this encounter Care Teams Teletypesetter Relationship Specialty Start Date End Date Obey Osborn APRN [address] [place], [place] [address] PCP - General 08/29/17 10/10/18 documented as of this encounter
--- OUTSIDE RECORDS SUMMARY | 2024-01-04 14:49 | XMS_ITS | Encounter Summary ---
Author Organization [facility] Address [address] [place] [address] Care Team Providers Care Eye Specialist Name Role Phone Obey Osborn APRN Primary Care Provider [phone] Reason for Visit * Reason Onset Date Comments Appointment Related 03/04/2018 Encounter Details Date Type Department Care Team ([facility] Contact Info) Description 03/04/[address] [facility] Neurology - S [address] [address] Robby Abraham MD [address] [place] [address] Level 2 [place] [phone] Appointment Related Social History Tobacco Use Types [...] Telephone Encounter - Aydee Pisano - 03/04/2018 0939 EST Spoke to Aydee, she advised she [...] 15:00 EST Office Visit [facility] Neurology - S [address] [address]18[address] Robby Abraham MD [address] [place] [address], Level 2 [place] [address] documented as of this encounter Visit Diagnoses Not on filedocumented in this encounter Care Teams Eye Specialist Relationship Specialty Start Date End Date Obey Osborn APRN [address] [place] [address] [address]ANE[address] [place], [place] [address] PCP - General 08/29/17 10/10/18 documented as of this encounter
--- OUTSIDE RECORDS SUMMARY | 2024-01-04 14:49 | XMS_ITS | Encounter Summary ---
Author Organization [facility] Address [address] [place] [address] Care Team Providers Care Customer Service Operator Name Role Phone Obey Osborn APRN Primary Care Provider [phone] Encounter Details Date Type Department Care Team (Late Contact Info) Description 06/10/2018 Orders Only [facility] Adult Neurology - Main [place] [address] [place], [place] [address] Randall Corey MD [address] [place] [address] Other fatigue (Primary Dx) Social History Tobacco [...] 04/21/2024 15:00 EST Office Visit [facility] Neurology - S [place] [address] [place] [phone] Robby Abraham MD 1 [facility], Level 2 [place] [address] documented as of this encounter Visit Diagnoses Diagnosis Other fatigue- Primary documented in this encounter Care Teams Customer Service Operator Relationship Specialty Start Date End Date Obey Osborn APRN [address] [place] [address] [address]ANE[address] [place] [address] PCP - General 08/29/17 10/10/18 documented as of this encounter
--- OUTSIDE RECORDS SUMMARY | 2024-01-04 14:49 | XMS_ITS | Encounter Summary ---
Author Organization [facility] Address [address] [place] [address] Care Team Providers Care Generator Rebuilder Name Role Phone Obey Osborn APRN Primary Care Provider [phone] None, Provider Primary Care Provider Jennifer Rushing MD Primary Care Provider [phone] Reason for Visit * Reason Onset Date Comments Appointment Related 11/19/2017 Encounter Details Date Type Department Care Team ([facility] Contact Info) Description 11/19/2017 Telephone [facility] Foot [facility] Ankle Program - [address] [address] Talha Oates DPM [address] [place] [address] Appointment Related Social History Tobacco [...] Info) Description 04/21/2024 15:00 EST Office Visit [facility] Neurology - S [address] [address] Robby Abraham MD [address] [place] [address], Level [address] [place] [address] documented as of this encounter Visit Diagnoses Not on filedocumented in this encounter Care Teams Generator Rebuilder Relationship Specialty Start Date End Date Obey Osborn APRN [address] [place] [address] [id number] PCP - General 08/29/17 10/10/18 None, Provider PCP - General 10/11/18 12/02/18 [place] [address] [place] [address] [address] PCP - General 12/03/18 08/29/22 documented as of this encounter
--- OUTSIDE RECORDS SUMMARY | 2024-01-04 14:49 | XMS_ITS | Encounter Summary ---
Author Organization [facility] Address [address] [place] [address] Care Team Providers Care Ceramic Engineer Name Role Phone Obey Osborn APRN Primary Care Provider [phone] Reason for Visit * Reason Onset Date Comments Paperwork request 02/27/2018 Encounter Details Date Type Department Care Team ([facility] st Contact Info) Description 02/27/2018 Telephone [facility] Neurology - S [address] [address] Robby Abraham MD [address] [place] [address] [address] [place] [phone] Paperwork request Social History Tobacco Use Types [...] [facility] Neurology - S [address] 0407[address] Robby Abraham MD [address] [place] [address], Level [address] [place] [address] documented as of this encounter Visit Diagnoses Not on filedocumented in this encounter Care Teams Ceramic Engineer Relationship Specialty Start Date End Date Obey Osborn APRN [address] [place] [address] DR HANEY [address] [place] [id number] PCP - General 08/29/17 10/10/18 documented as of this encounter
--- OUTSIDE RECORDS SUMMARY | 2024-01-04 14:49 | XMS_ITS | Encounter Summary ---
Author Organization [facility] Address [address] [place] [address] Care Team Providers Care Customer Account Administrator Name Role Phone Obey Osborn APRN Primary Care Provider [phone] Reason for Visit * Reason Onset Date Comments Labs Only 03/18/2018 Encounter Details Date Type Department Care Team ([facility] st Contact Info) Description 03/18/2018 Telephone [facility] Neurology - S [address] [address] Robby Abraham MD [address] [place] [address] Level 2 [place] [phone] Labs Only Social History Tobacco Use Types [...] Yañez - 03/18/2018 1412 EST Stephanie from [facility] Billing called and said Dr Abraham [...] [facility] Neurology - S [address] 4[address] Robby Abraham MD [address] [place] [address], Level [address] [place] [address] documented as of this encounter Visit Diagnoses Not on filedocumented in this encounter Care Teams Customer Account Administrator Relationship Specialty Start Date End Date Obey Osborn APRN [address] [place] [address] [address]ANEY [address] [place], [place] [phone] PCP - General 08/29/17 10/10/18 documented as of this encounter
--- OUTSIDE RECORDS SUMMARY | 2024-01-04 14:49 | XMS_ITS | Encounter Summary ---
Author Organization [facility] Address [address] [place] [address] Care Team Providers Care Instrument Lens Grinder Name Role Phone Obey Osborn APRN Primary Care Provider [phone] Encounter Details Date Type Department Care Team (Late Contact Info) Description 09/04/2017 Results Only Imaging [facility] [phone] Unknown, Provider, Social History Tobacco Use Types [...] Upcoming Encounters Date Type Department Care Team ([facility] Contact Info) Description 04/21/2024 15:00 EST Office Visit [facility] Neurology - S [place] [address] [place] [address] Robby Abraham MD [address] [place] [address], Level 2 [place] [address] Pending Results Name Type Priority Associated Diagnoses Date /Time OUTSIDE IMAGES - MR NEURO Imaging 09/04/2017 8:01 EDT OUTSIDE IMAGES - MR NEURO Imaging 09/04/2017 8:01 EDT documented as of this encounter Visit Diagnoses Not on filedocumented in this encounter Care Teams Instrument Lens Grinder Relationship Specialty Start Date End Date Obey Osborn APRN [address] [place] [address] DR HANEY [address] [place] [address] PCP - General 08/29/17 10/10/18 documented as of this encounter
--- OUTSIDE RECORDS SUMMARY | 2024-01-04 14:49 | XMS_ITS | Encounter Summary ---
Author Organization [facility] Address [address] [place] [address] Care Team Providers Care Librarian Assistant Name Role Phone Obey Osborn APRN Primary Care Provider [phone] Encounter Details Date Type Department Care Team (Late Contact Info) Description 03/20/2018 Orders Only [address] [address] Robby Abraham MD [address] [place] [address] Level [address] [place] [address] Neuropathy (Primary Dx) Social History [...] Info) Description 04/21/2024 15:00 EST Office Visit [facility] [address] [address] Robby Abraham MD 1 [facility], Level [address] [place] [phone] documented as of this encounter Visit Diagnoses Diagnosis Neuropathy- Primary Mononeuritis of unspecified site documented in this encounter Care Teams Librarian Assistant Relationship Specialty Start Date End Date Obey Osborn APRN [address] [place] [address] [id number] PCP - General 08/29/17 10/10/18 documented as of this encounter
--- OUTSIDE RECORDS SUMMARY | 2024-01-04 14:49 | XMS_ITS | Encounter Summary ---
Author Organization [facility] Address [address] [place] [address] Care Team Providers Care Mechanical Engineering Manager Name Role Phone Jennifer Sr MD Primary Care Provider +1- [phone] Encounter Details Date Type Department Care Team ([facility] st Contact Info) Description 12/17/2018 8:43 EDT - 12/17/2018 23:59 EDT Hospital Encounter [address] [address] Carl Flood Chi, MD [address] [place] [address], [address] [place] [address] Discharge Disposition: Auto Discharge Social History Tobacco [...] Description 04/21/2024 15:00 EST Office Visit [facility] Neurology - S [address] [phone] Robby Abraham MD [address] [place] [address], [address] [place] [address] documented as of this encounter Visit Diagnoses Not on filedocumented in this encounter Care Teams Mechanical Engineering Manager Relationship Specialty Start Date End Date Jennifer Sr MD [address] [place] [address] PCP - General 12/03/18 08/29/22 documented as of this encounter
--- OUTSIDE RECORDS SUMMARY | 2024-01-04 14:49 | XMS_ITS | Encounter Summary ---
Author Organization [facility] Address [address] [place] [address] Care Team Providers Care Industrial Maintenance Repairer Name Role Phone Jennifer Sr MD Primary Care Provider +1- [phone] Encounter Details Date Type Department Care Team (Latest Contact Info) Description 12/03/2018 15:33 EDT - 12/03/2018 23:59 EDT Hospital Encounter [address] [address] Randall Corey MD [address] [place] [address] Discharge Disposition: Auto Discharge Social History Tobacco [...] Info) Description 04/21/2024 15:00 EST Office Visit [facility] Neurology - S [address] [phone] Robby Abraham MD [address] [place] [address], [address] [place] [address] documented as of this encounter Visit Diagnoses Not on filedocumented in this encounter Care Teams Industrial Maintenance Repairer Relationship Specialty Start Date End Date Jennifer Sr MD [address], [address] [address] PCP - General 12/03/18 08/29/22 documented as of this encounter
--- OUTSIDE RECORDS SUMMARY | 2024-01-04 14:49 | XMS_ITS | Encounter Summary ---
Author Organization [facility] Address [address] [place] [address] Care Team Providers Care Lap Machine Operator Name Role Phone Jennifer Sr MD Primary Care Provider +1- [phone] Reason for Visit * Reason Onset Date Comments Labs Only 12/04/2018 Encounter Details Date Type Department Care Team ([facility] st Contact Info) Description 12/04/2018 Telephone [facility] Neurology - S [address] [phone] Robby Valle MD [address] [place] [address] [address] [place] [phone] Labs Only Social History Tobacco Use Types [...] Description 04/21/2024 15:00 EST Office Visit [facility] Neurology - S [address] [address] Robby Valle MD [address] [place] [address], [address] [place] [phone] documented as of this encounter Visit Diagnoses Not on filedocumented in this encounter Care Teams Lap Machine Operator Relationship Specialty Start Date End Date Jennifer Sr MD [address], [address] [address] PCP - General 12/03/18 08/29/22 documented as of this encounter
--- OUTSIDE RECORDS SUMMARY | 2024-01-04 14:49 | XMS_ITS | Encounter Summary ---
Author Organization [facility] Address [address] [place] [address] Care Team Providers Care Mechanical Equipment Sales Engineer Name Role Phone None, Provider Primary Care Provider Jennifer Rushing MD Primary Care Provider +1- [phone] Reason for Visit * Reason Onset Date Comments Appointment Related 12/02/2018 Encounter Details Date Type Department Care Team ([facility] st Contact Info) Description 12/02/2018 Telephone [facility] [place] [address] Randall Corey MD [address] [place] [address] Appointment Related Social History Tobacco Use Types [...] Office Visit [facility] Neurology - S [address] [address] Robby Abraham MD [address] [place] [address], [address] [place] [phone] documented as of this encounter Visit Diagnoses Not on filedocumented in this encounter Care Teams Mechanical Equipment Sales Engineer Relationship Specialty Start Date End Date None, Provider PCP - General 10/11/18 12/02/18 Jennifer Sr MD [address], [address] [address] PCP - General 12/03/18 08/29/22 documented as of this encounter
--- OUTSIDE RECORDS SUMMARY | 2024-01-04 14:49 | XMS_ITS | Encounter Summary ---
Author Organization [facility] Address [address] [place] [address] Care Team Providers Care Machine Finisher Name Role Phone Jennifer Sr MD Primary Care Provider +1- [phone] Encounter Details Date Type Department Care Team (Late Contact Info) Description 12/17/2018 Phlebotomy Only [address] [address] Compliance And Control Analyst, Outpatient Positive ADRIANA (antinuclear antibody); Malaise and [...] Team ([facility] Contact Info) Description 04/21/2024 15:00 EST Office Visit [facility] Neurology - S [address] [address] Robby Abraham MD 1 [facility], [address] [place] [phone] documented as of this encounter Procedures Procedure [...] Positive ADRIANA (antinuclear antibody) Small fiber neuropathy ACCOUNT ENGINEER ANTIBODY, IGG Routine 12/17/2018 9:0 2 EDT [...] (DS) <12.3 <30 IU/mL 12/19/2018 14:51 EDT [facility] Comment:Results were obtaine d with the INOVA QUANTA Lite dsDNA SC ALMA ROSA assay. Blood specimen (specimen) BLOOD SPECIMEN / Unknown 12/17/2018 9:02 EDT 12/17/2018 10:10 EDT Carl Flood MD IMMUNOLOGY AND SEROL SAEID ORDERABLES [facility] [address] [place] [address] * ANCA, IFA (12/17/2018 9:02 EDT) ANCA Interpretation Negative Negative 12/18/2018 14:19 EDT [facility] Comment: ADRIANA Positive, suggest [...] AND SEROL OGY ORDERABLES Performing Organization Address [facility] de Phone Number [facility] [address] [place] [address] * ANGIOTENSIN CONVERTING ENZYME (LESLI) (12/17/2018 9:02 EDT) Angiotensin Converting Enzyme 32 16 - 85 U/L 12/19/2018 8:10 EDT [facility] Comment: Performed or Referred by: [facility], [address] [place] [address] Blood specimen (specimen) BLOOD SPECIMEN / Unknown 12/17/2018 9:02 EDT 12/17/2018 10:10 EDT Narrative Authorizing Provider Result Charly Flood MD CHEMISTRY & BLOOD GA S ORDERABLES Performing Organization Address [facility] Number [facility] [address] [place] [address] * SM (AGEE) ANTIBODY (12/17/2018 9:02 EDT) Sm (Agee) Antibody 1.8 <20 Units 12/19/2018 13:07 EDT [facility] Comment: Negative: <20 Units Weak Positive: 20 - 39 Units Moderate Positive: 40 - 80 Units Strong Positive: >80 Units Results were obtained with the American [employer] QUANTA Lite Sm ALMA ROSA. Sm values obtained with different manufacturers' assay methods may not be used interchangeably. The magnitude of the reported IgG levels cannot be correlated to an endpoint titer. Blood specimen (specimen) BLOOD SPECIMEN / Unknown 12/17/2018 9:02 EDT 12/17/2018 10:10 EDT Narrative Authorizing Provider Result Charly Flood MD IMMUNOLOGY AND SEROL OGY ORDERABLES Performing Organization Address [facility]/State/ZIP Co de Phone Number [facility] [address] [place] [address] * (ABNORMAL) ARTHRITIS 1 (12/17/2018 9:02 EDT) Rheumatoid Factor 11 <12.5 IU/mL 2018 12:47 [facility] ADRIANA Interpretation Positive(A) Negative 12/18/2018 14:19 [facility] Comment: For titers greater [...] ADRIANA Titer Pattern 1:320 Homogeneous 12/18/2018 14:19 [facility] Blood specimen (specimen) BLOOD SPECIMEN / Unknown 12/17/2018 9:02 EDT 12/17/2018 10:10 EDT Carl Flood MD IMMUNOLOGY AND SERWALESKA BREAUX ORDERABLES [facility] [address] [place] [address] * (ABNORMAL) COMPLETE BLOOD COUNT AND DIFFERENTIAL (12/17/2018 9:02 EDT) WBC 8.88 4.0 - 12.4 K/cmm 12/17/2018 10:22 [facility] RBC 4.31 3.86 - 5.04 M/cmm 12/17/2018 10:22 [facility] Hemoglobin 13.8 11.6 - 15.2 gm/dl 12/17/2018 10:22 [facility] HCT 40.6 34.9 - 44.4 % 12/17/2018 10:22 [facility] MCV 94 81 - 98 fl 12/17/2018 10:22 [facility] MCH 32.0 26.7 - 33.3 pg 12/17/2018 10:22 [facility] MCHC 34.0 32.1 - 35.9 gm/dl 12/17/2018 10:22 [facility] RDW-CV 11.9 <14.7 % 12/17/2018 10:22 [facility] RDW-SD 41.2 <50.4 fl 12/17/2018 10:22 [facility] PLT 316 141 - 377 K/cmm 12/17/2018 10:22 [facility] MPV 9.5 9.5 - 12.7 fl 12/17/2018 10:22 [facility] % Neutrophils 50.4 % 12/17/2018 10:22 [facility] % Lymphocytes 38.3 % 12/17/2018 10:22 [facility] % Monocytes 7.0 % 12/17/2018 10:22 [facility] % Eosinophils 3.5 % 12/17/2018 10:22 [facility] % Basophils 0.6 % 12/17/2018 10:22 [facility] % Immature Grans 0.2 % 12/17/2018 10:22 [facility] ABS Neutrophils 4.48 2.20 - 8.85 K/cmm 12/17/2018 10:22 [facility] ABS Lymphs 3.40(H) 1.09 - 3.30 K/cmm 12/17/2018 10:22 [facility] ABS Monocytes 0.62 0.1 - 0.8 K/cmm 12/17/2018 10:22 [facility] ABS Eosinophils 0.31 0.03 - 0.61 K/cmm 12/17/2018 10:22 [facility] ABS Basophils 0.05 0.01 - 0.11 K/cm 12/17/2018 10:22 [facility] ABS Immature Grans 0.02 0 - 0.06 K/cm 12/17/2018 10:22 [facility] Type of Diff: Automated 12/17/2018 10:22 [facility] Blood specimen (specimen) BLOOD SPECIMEN / Unknown 12/17/2018 9:02 EDT 12/17/2018 10:10 EDT Carl Flood MD PACKAGES & DNA PROBE ORDERABLES [facility] [address] [place] [address] * (ABNORMAL) COMPREHENSIVE METABOLIC PANEL (CMP) (12/17/2018 9:02 EDT) Potassium 3.9 3.5 - 5.0 mEq/L 12/17/2018 12:00 [facility] Sodium 141 136 - 145 mEq/L 12/17/2018 12:00 [facility] Chloride 103 96 - 110 mEq/L 12/17/2018 12:00 [facility] CO2 29 22 - 32 mEq/L 12/17/2018 12:00 [facility] Total Alkaline Phosphatase 56 38 - 126 U/L 12/17/2018 12:00 [facility] Bilirubin, Total <0.5 <1.4 mg/dl 12/18/19 19 12:00 [facility] AST 20 15 - 46 U/L 12/17/2018 12:00 [facility] ALT 18 <34 U/L 12/17/2018 12:00 [facility] Albumin 4.4 3.4 - 4.9 g/dl 12/17/2018 12:00 [facility] Total Protein 7.2 6.3 - 8.2 g/dl 12/17/2018 12:00 [facility] Creatinine 0.59 0.52 - 1.04 mg/dl 12/17/2018 12:00 [facility] GFR, Calculated 104 >60 ml/min/1.7 3m2 12/17/2018 12:00 [facility] Comment: eGFR calculated using CKD-EPI equation for non Americans. Multiply eGFR by 1.16 for Americans. BUN 7(L) 10 - 26 mg/dl 12/17/2018 12:00 EDT [facility] Calcium 10.1 8.5 - 10.5 mg/dl 12/17/2018 12:00 EDT [facility] Calculated Calcium 9.8 8.5 - 10.5 mg/dl 12/17/2018 12:00 EDT [facility] Glucose, Serum 98 70 - 100 mg/dl 12/17/2018 12:00 EDT [facility] Fasting? No 12/17/2018 8:55 EDT [facility] Blood specimen (specimen) BLOOD SPECIMEN / Unknown 12/17/2018 9:02 EDT 12/17/2018 10:10 EDT Narrative Authorizing Provider Result Charly Flood MD CHEMISTRY & BLOOD GA S ORDERABLES Performing Organization Address [facility] Co de Phone Number [facility] [address] [place] [address] * CK (12/17/2018 9:02 EDT) CK 55 30 - 135 U/L 12/17/2018 11:49 EDT [facility] Blood specimen (specimen) BLOOD SPECIMEN / Unknown 12/17/2018 9:02 EDT 12/17/2018 10:10 EDT Narrative Authorizing Provider Result Charly Flood MD CHEMISTRY & BLOOD GA S ORDERABLES Performing Organization Address City/[facility]/ZIP Co de Phone Number [facility] [address] [place] [address] * CCP ANTIBODIES (12/17/2018 9:02 EDT) CCP Antibodies <2.5 <5.0 U/mL 12/17/2018 13:18 EDT [facility] BLOOD SPECIMEN / Unknown 12/17/2018 9:02 EDT 12/17/2018 10:10 EDT Narrative Authorizing Provider Result Charly Flood MD IMMUNOLOGY AND SEROL OGY ORDERABLES Performing Organization Address City/[facility]/ZIP Co de Phone Number [facility] [address] [place] [address] * (ABNORMAL) C REACTIVE PROTEIN (12/17/2018 9:02 EDT) C Reactive Protein 11.4(H) <10.0 mg/L 12/17/2018 12:00 EDT [facility] Blood specimen (specimen) BLOOD SPECIMEN / Unknown 12/17/2018 9:02 EDT 12/17/2018 10:10 EDT Narrative Authorizing Provider Result Charly Flood MD CHEMISTRY & BLOOD GA S ORDERABLES Performing Organization Address [facility]/ZIP Co de Phone Number [facility] [address] [place] [address] * SPEP, INCLUDES QUANTITATION OF MONOCLONAL SPIKE (12/17/2018 9:02 EDT) Total Protein 7.0 6.3 - 8.2 g/dl 12/17/2018 11:49 T [facility] Albumin % 63.3 55.8 - 66.1 % 12/18/2018 14:11 [facility] Alpha-1 % 3.6 2.9 - 4.9 % 12/18/2018 14:11 [facility] Alpha-2 % 10.1 7.1 - 11.8 % 12/18/2018 14:11 [facility] Beta % 11.4 8.4 - 13.1 % 12/18/2018 14:11 [facility] Gamma % 11.6 11.1 - 18.8 % 12/18/2018 14:11 [facility] Comments 12/18/2018 14:11 [facility] Comment: No apparent monoclonal protein on serum electrophoresis. See Pathology Scanned Report in EPIC. Blood specimen (specimen) BLOOD SPECIMEN / Unknown 12/17/2018 9:02 EDT 12/17/2018 10:10 EDT Carl Flood MD CHEMISTRY & BLOOD GA S ORDERABLES Performing Organization Address City/[facility]/ZIP Co de Phone Number [facility] [address] [place] [address] * SSA ANTIBODIES BY ALMA ROSA (12/17/2018 9:02 EDT) SSA Antibody 3.2 <20 Units 12/19/2018 13:07 EDT [facility] Comment: Negative: <20 Units [...] AND SEROL OGArtemio ORDERABLES Performing Organization Address [facility] de Phone Number [facility] [address] [place] [address] * ACCOUNT ENGINEER ANTIBODIES BY ALMA ROSA (12/17/2018 9:02 EDT) [facility] Signature ACCOUNT ENGINEER Antibody 1.7 <20 Units 12/19/2018 13:07 EDT [facility] Comment: Negative: <20 Units Weak Positive: 20 - 39 Units Moderate Positive: 40 - 80 Units Strong Positive: >80 Units Results were obtained with the [employer]OVA QUANTA Lite ACCOUNT ENGINEER ALMA ROSA. ACCOUNT ENGINEER Values obtained with different manufacturers' assay methods may not be used interchangeably. The magnitude of the reported IgG levels cannot be correlated to an endpoint titer. A positive result in the QUANTA Lite ACCOUNT ENGINEER ALMA ROSA indicates the presence of antibodies reactive with the ACCOUNT ENGINEER/Sm complex but cannot distinguish between anti-Sm and anti-ACCOUNT ENGINEER activity. Blood specimen (specimen) BLOOD SPECIMEN / Unknown 12/17/2018 9:02 EDT 12/17/2018 10:10 EDT Carl Flood MD IMMUNOLOGY AND SEROL OGArtemio ORDERABLES Performing Organization Address [facility] de Phone Number [facility] [address] [place] [address] * SSB ANTIBODIES BY ALMA ROSA (12/17/2018 9:02 EDT) SSB Antibody 3.0 <20 Units 12/19/2018 13:07 EDT [facility] Comment: Negative: <20 Units Weak Positive: 20 - 39 Units Moderate Positive: 40 - 80 Units Strong Positive: >80 Units Results were obtained with the [employer] QUANTA SS-B ALMA ROSA. SS-B values obtained with different manufacturers' assay methods may not be used interchangeably. The magnitude of the reported IgG levels cannot be correlated to an endpoint titer. Blood specimen (specimen) BLOOD SPECIMEN / Unknown 12/17/2018 9:02 EDT 12/17/2018 10:10 EDT Narrative Authorizing Provider Result Charly Flood MD IMMUNOLOGY AND SEROL OGY ORDERABLES Performing Organization Address [facility] de Phone Number [facility] [address] [place] [address] * TSH (12/17/2018 9:02 EDT) [facility] TSH 1.46 0.47 - 4.68 uIU/ml 12/17/2018 12:19 EDT [facility] Comment: The results of this assay can be falsely lowered due to the consumption of Biotin. Blood specimen (specimen) BLOOD SPECIMEN / Unknown 12/17/2018 9:02 EDT 12/17/2018 10:10 EDT Narrative Authorizing Provider Result Charly Flood MD CHEMISTRY & BLOOD GA S ORDERABLES Performing Organization Address [facility] Phone Number [facility] [address] [place] [address] * SED. RATE:WESTERGREN (12/17/2018 9:02 EDT) [facility] Sed. Rate Westergren 5 0 - 30 mm/hr 12/17/2018 10:21 EDT [facility] Blood specimen (specimen) BLOOD SPECIMEN / Unknown 12/17/2018 9:02 EDT 12/17/2018 10:10 EDT Narrative Authorizing Provider Result Charly Flood MD HEMATOLOGY & PF4 ORD ERABLES Performing Organization Address [facility] de Phone Number [facility] [address] [place] [address] * THYROID ANTIBODIES (12/17/2018 9:02 EDT) Thyroglobulin Ab 19 <61 U/mL 12/18/19 19 12:20 T [facility] Thyroperoxidase Ab 44 <61 U/mL 2018 13:08 T [facility] Blood specimen (specimen) BLOOD SPECIMEN / Unknown 12/17/2018 9:02 EDT 12/17/2018 10:10 EDT Carl Flood MD CHEMISTRY & BLOOD GA S ORDERABLES [facility] [address] [place] [address] * UA, CHEMICAL AND SEDIMENT ANALYSIS (DIPSTICK AND MICROSCOPIC) (12/17/2018 9:02 EDT) Color, UA Yellow 12/17/2018 9:42 T [facility] Clarity, UA Clear 12/17/2018 9:42 [facility] Glucose, UA Neg Neg 12/17/2018 9:42 [facility] Bilirubin, UA Neg Neg 12/17/2018 9:42 [facility] Ketones, UA Neg Neg 12/17/2018 9:42 [facility] Refractometer SG,Urine 1.020 1.001 - 1.035 12/17/2018 9:42 [facility] Blood, UA Neg Neg 12/17/2018 9:42 [facility] pH, UA 5.0 4.6 - 8.0 12/17/2018 9:42 [facility] Protein, UA Neg Neg 12/17/2018 9:42 [facility] Urobilinogen, UA Normal Normal E.U./dl 12/17/2018 9:42 [facility] Nitrite, UA Neg Neg 12/17/2018 9:42 [facility] Leuk Esterase Neg Neg 12/17/2018 9:42 [facility] UA Method Used 12/17/2018 8:51 EDT [facility] Comment: Testing performed using [employer] nap- Naturally Att[employer] Series. Urine RBC Count Automated 0 to 2 0 to 2 /HPF 12/17/2018 9:42 EDT [facility] Urine WBC Count Automated 0 to 3 0 to 3 /HPF 12/17/2018 9:42 EDT [facility] Urine Squamous Epithelial Cell Count, Automated None seen None seen /LPF 12/17/2018 9:42 EDT [facility] Urine Hyaline Casts, Automated < or = 10 < or = 10 /LPF 12/17/2018 9:42 T [facility] Urine Bacteria Count, Automated None seen None seen 12/17/2018 9:42 EDT [facility] UA Comment Sediment results 12/17/2018 9:42 T [facility] Comment: are unreliable on urines unrefrig >2hrs or refrig >8hrs. Urine specimen (specimen) URINE / Unknown 12/17/2018 9:02 EDT 12/17/2018 9:30 EDT Carl Flood MD URINALYSIS ORDERABLE S [facility] [address] [place] [address] documented in this encounter Visit Diagnoses Diagnosis Positive ADRIANA (antinuclear antibody) Other and unspecified nonspecific immunological findings Malaise and fatigue Other malaise and fatigue Small fiber neuropathy Unspecified hereditary and idiopathic peripheral neuropathy Thoracolumbar back pain Backache, unspecified Paresthesia of both feet documented in this encounter Care Teams Machine Finisher Relationship Specialty Start Date End Date Jennifer Sr MD [facility] [place] [id number] PCP - General 12/03/18 08/29/22 documented as of this encounter
--- OUTSIDE RECORDS SUMMARY | 2024-01-04 14:49 | XMS_ITS | Encounter Summary ---
Author Organization [facility] Address [address] [place] [address] Care Team Providers Care Supervisor Research [employer] Name Role Phone Obey Osborn APRN Primary Care Provider [phone] Reason for Visit * Reason Onset Date Comments Appointment Related 01/15/2018 Encounter Details Date Type Department Care Team ([facility] Contact Info) Description 01/15/2018 Telephone [facility] Neurophysiology - [address] [address] Robby Abraham MD [address] [place] [address] 2 [place] [phone] Appointment Related Social History Tobacco Use Types [...] Telephone Encounter - Aydee Pisano - 02/20/2018 2115 EST Spoke to Aydee and reschedule her [...] Description 04/21/2024 15:00 EST Office Visit [facility] Neurology - [address] [phone] Robby Abraham MD [address] [place] [address], [address] [place] [phone] documented as of this encounter Visit Diagnoses Not on filedocumented in this encounter Care Teams Supervisor Research [employer] Relationship Specialty Start Date End Date Obey Osborn APRN [address] [place] [address] [address] [place], [place] [phone] PCP - General 08/29/17 10/10/18 documented as of this encounter
--- OUTSIDE RECORDS SUMMARY | 2024-01-04 14:49 | XMS_ITS | Encounter Summary ---
Author Organization [facility] Address [address] [place] [address] Care Team Providers Care Compressed Gas Equipment Mechanic Name Role Phone Obey Osborn APRN Primary Care Provider [phone] Reason for Visit * Reason Comments Foot Pain * Consult (Routine/Next Available) - Specialty Report Received Specialty Diagnoses / Procedures Referred By Mayda jalloh Referred To Contact Orthopedic Surgery Diagnoses Pain in both feet Virgil Núñez [place] [address] [place] [address] [facility] Ortho Foot And Ankle [address] [place] [address] Referral ID Status Reason Start Date Expiration Date Visits Requested Visits Authorized [id number] Specialty Report Received Specialty Services Required 08/29/2017 1 1 Encounter Details Date Type Department Care Team (Late st Contact Info) Description 11/19/2017 14:30 EDT Office Visit [facility] Foot & Ankle Program - [place] [address] [place] [address] Talha Oates DPM [address] [place] [address] Idiopathic peripheral neuropathy (Primary Dx) [...] Visit [facility] Neurology - [address] [place] [address] [place], [place] [address] Robby Abraham MD [address] [place] [address], Level 2 [place] [phone] documented as of this encounter Visit Diagnoses Diagnosis Idiopathic peripheral neuropathy- Primary Unspecified hereditary and idiopathic peripheral neuropathy documented in this encounter Care Teams Compressed Gas Equipment Mechanic Relationship Specialty Start Date End Date Obey Osborn APRN [address] [place] [address] PCP - General 08/29/17 10/10/18 documented as of this encounter
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
--- OUTSIDE RECORDS SUMMARY | 2024-01-04 14:49 | XMS_ITS | Encounter Summary ---
Author Organization [facility] Address [address] [place] [address] Care Team Providers Care Registration Manager Name Role Phone Obey Osborn APRN Primary Care Provider [phone] Reason for Referral * Office Procedure (Routine) - Closed Specialty Diagnoses / Procedures Referred By Mayda jalloh Referred To Contact Neurology Diagnoses Neuropathy Procedures EMG/NERVE CONDUCTION STUDY Robby Abraham MD [address] [place] [phone] [facility] Neuromusc & Clin Neurophys [address] [place] [address] Referral ID Status Reason Start Date Expiration Date Visits Re quested Visits Authorized [id number] Closed 01/14/2018 1 1 Reason for Visit * Reason Comments New Patient Visit * Referral (Routine) - Closed Specialty Diagnoses / Procedures Referred By Contashu t Referred To Contact Neurology Diagnoses Neuropathy of foot, unspecified laterality Obey Osborn APRN [address] [place] [address] [address] [place] [address] Juan David Mayberry MD [address] [place] [phone] Referral ID Status Reason Start Date Expiration Date Visits Re quested Visits Authorized [id number] Closed 1 1 Encounter Details Date Type Department Care Team ([facility] st Contact Info) Description 01/14/2018 13:00 EDT Office Visit [facility] Neurology - S [address] [id number] Robby Abraham MD [address] [place] [address], Level 2 [place] [address] Neuropathy (Primary Dx) Discharge Disposition: [...] Diagnoses Diagnosis G62.9 Polyneuropathy, unspecified-G62.9[ICD-10-CM] Z79.899 Other mcfp (current) drug therapy-Z79.899[ICD-10-CM] documented in this encounter [...] started sometime around 2011. She was in [place] inearly 2011 and got what sounds like [...] past including recently 2 different physicians at [facility]. She mentions a variety of diagnoses [...] rheumatologic disorder. She was previously seen at [facility] as well. I the notes from [...] completed. In terms of other workup at [facility] notes reflect an MRI of the C-spine that was unremarkable from 2016 with only mild narrow canal centrally at C5-6 and some mild neuroforaminal narrowing at levels including C6-7. Previous work up: (all lab values and available NCS/ EMG studies/ and imaging studies tracings were independently reviewed.) Abnormal labs:ADRIANA positive at 1-320 in a speckled pattern Normal labs: Thyroid antibodies, folate, BOTTLE CAPPING MACHINE OPERATOR antibodies, SSA/SSB, CMP, Lyme, C4 minimally elevated at 40, rheumatoid factor, anti-Agee antibodies, srsw-aucgca-gzypggww DNA, parvovirus, CMV, mycoplasma pneumonia IgG positive, [...] History: Diagnosis Date ??? Angina at rest ([facility]) ??? Chronic back pain ??? Chronic neck [...] is reduced in the feet bilaterally Coordination: Rdbbiw-ic-ugsh and btmd-hc-fwhn are intact. Rapid alternating movements are fast [...] neuropathy. I reviewed her previous workup at [facility] in detail and none of her [...] and no evidenceof rheumatologic disorder per her manager welding. I do not see vitamin studies anywhere [...] referring physician Obey Osborn. Robby Abraham M.D. Training Designer of Neurology ABPN Board Certified, Neurology ABEM Board Certified, EMG documented in this encounter Plan of Treatment Upcoming Encounters Date Type Department Care Team (Late st Contact Info) Description 04/21/2024 15:00 EST Office Visit [facility] Neurology - S [address] [phone] Robby Abraham MD [address] [place] [address] [address] [place] [phone] Scheduled Orders Name Type Priority Associated Diagnoses Orde r Schedule EMG/NERVE CONDUCTION STUDY Procedures Routine Neuropathy Ordered: 01/14/2018 documented as of this encounter Procedures Procedure Name Priority Date/Time Associated Diagnosis Comments PATHOLOGY - SCANNED 01/15/2018 12:23 EDT documented in this encounter Results * PATHOLOGY - SCANNED (01/15/2018 12:23 EDT) 01/15/2018 12:2 3 EDT Scan 2 Top And Seat Cover Fitter LAB INFO SERVICE AN D SUPPORT & PHONE RESULT * HEMOGLOBIN A1C (01/14/2018 14:18 EDT) Hemoglobin A1C 5.7 % 01/15/2018 9:48 [facility] Comment: Reference Range: <5.7% Normal 5.7-6.4% Prediabetes =>6.5% Diagnostic for diabetes (if confirmed) Goals for glycemic control in diabetes ADA 2017 For non adults with diabetes: ?? Target <7.0% For children and adolescents with type 1 diabetes: ?? Target <7.5% More or less stringent targets may be appropriate for individual patients. Est Avg Glucose 117 mg/dl 8 9:48 T [facility] Comment: eAG represents the A1c result expressed as average glucose in mg/dl. Blood specimen (specimen) BLOOD SPECIMEN / Unknown 01/14/2018 14:18 EDT 01/14/2018 15:26 EDT Robby Abraham MD CHEMISTRY & BLOOD GA S ORDERABLES [facility] [address] [place] [address] * SPEP WITH IMMUNOTYPING (01/14/2018 14:18 EDT) Total Protein 7.2 6.3 - 8.2 g/dl 01/14/2018 16:03 [facility] Albumin % 62.4 55.8 - 66.1 % 01/15/2018 13:12 [facility] Alpha-1 % 3.8 2.9 - 4.9 % 01/15/2018 13:12 [facility] Alpha-2 % 10.3 7.1 - 11.8 % 01/15/2018 13:12 [facility] Beta % 11.4 8.4 - 13.1 % 01/15/2018 13:12 [facility] Gamma % 12.1 11.1 - 18.8 % 01/15/2018 13:12 [facility] Comments 01/15/2018 13:12 [facility] Comment: No apparent monoclonal protein on serum electrophoresis. See Pathology Scanned Report in PRISM. Immunotyping, Serum 01/15/2018 14:24 EDT [facility] Comment: Interpretation: Negative for monoclonal immunoglobulins. Interpreted by: ??Antonio Sorensen MD ON 01/15/2018 1424 Reference Range: Negative for monoclonal immunoglobulins. Blood specimen (specimen) BLOOD SPECIMEN / Unknown 01/14/2018 14:18 EDT 01/14/2018 15:26 EDT Robby Abraham MD CHEMISTRY & BLOOD GA S ORDERABLES [facility] [address] [place] [address] documented in this encounter Visit Diagnoses Diagnosis [...] 12/17/2018 added in this encounter Care Teams Registration Manager Relationship Specialty Start Date End Date Obey Osborn APRN [address] [place] [address] [address] [place] [address] PCP - General 08/29/17 10/10/18 documented as of this encounter
--- OUTSIDE RECORDS SUMMARY | 2024-01-04 14:49 | XMS_ITS | Encounter Summary ---
Author Organization [facility] Address [address] [place] [address] Care Team Providers Care Stereotyper Apprentice Name Role Phone Obey Osborn APRN Primary Care Provider [phone] Encounter Details Date Type Department Care Team (Late Contact Info) Description 08/31/2017 Orders Only [facility] Vascular Surgery - [address] [address] Macho Fernandez MD [address] [place] [address], Level 5 [place] [phone] Pain in both lower extremities (Primary Dx) [...] Upcoming Encounters Date Type Department Care Team ([facility] Contact Info) Description 04/21/2024 15:00 EST Office Visit [facility] Neurology - [address] [place] [address] [place], [place] [address] Robby Abraham MD [address] [place] [address], Level 2 [place] [address] documented as of this encounter Procedures Procedure Name Priority Date/Time Associated Diagnosis Comments VL LOWER ARTERIAL DUPLEX BILATERAL Routine 10/09/2017 13:54 EDT documented in this encounter Results * VL LOWER ARTERIAL DUPLEX BILATERAL (10/09/2017 13:54 EDT) Anatomical Region Laterality Modality Other 10/09/2017 13:5 4 EDT Narrative 10/11/2017 11:01 EDT Vascular Diagnostic Laboratory [facility], Level [address] [place] [address] Technologist: Justin Arora Fellow: IMPRESSIONS 1. No [...] ?? Flow analysis + +-------+ + Right SUGAR TRUCKER ? 88cm/s ? + +-------+ + Right PFA ? 62cm/s ? + +-------+ + Right SFA - prox 108cm/s ? + +-------+ + Right SFA - mid 88cm/s ? + +-------+ + Right SFA - dist 75cm/s ? + +-------+ + Right POP-ak ? 65cm/s ? + +-------+ + Right POP ? 80cm/s ? + +-------+ + Right RIG MECHANIC ? Triphasic ? + +-------+ + Right DPA ? Triphasic ? + +-------+ + Left SUGAR TRUCKER ? 74cm/s ? + +-------+ + Left PFA ? 73cm/s ? + +-------+ + Left SFA - prox 145cm/s ? + +-------+ + Left SFA - mid ?? 114cm/s ? + +-------+ + Left SFA - dist 77cm/s ? + +-------+ + Left POP-ak ? 49cm/s ? + +-------+ + Left POP ? 84cm/s ? + +-------+ + Left RIG MECHANIC ? Triphasic ? + +-------+ + Left DPA ? Triphasic ? + +-------+ + * Electronically signed by: Macho Fernandez 10/11/2017 11:01 Procedure Note Macho Fernandez MD - 10/11/2017 Vascular Diagnostic Laboratory [facility] 5 [address] [place] [address] Technologist: Justin Arora Fellow: IMPRESSIONS 1. No [...] sys Flow analysis + +-------+ + Right SUGAR TRUCKER 88cm/s + +-------+ + Right PFA 62cm/s + +-------+ + Right SFA - prox 108cm/s + +-------+ + Right SFA - mid 88cm/s + +-------+ + Right SFA - dist 75cm/s + +-------+ + Right POP-ak 65cm/s + +-------+ + Right POP 80cm/s + +-------+ + Right RIG MECHANIC Triphasic + +-------+ + Right DPA Triphasic + +-------+ + Left SUGAR TRUCKER 74cm/s + +-------+ + Left PFA 73cm/s + +-------+ + Left SFA - prox 145cm/s + +-------+ + Left SFA - mid 114cm/s + +-------+ + Left SFA - dist 77cm/s + +-------+ + Left POP-ak 49cm/s + +-------+ + Left POP 84cm/s + +-------+ + Left RIG MECHANIC Triphasic + +-------+ + Left DPA Triphasic + +-------+ + * Electronically signed by: Macho Fernandez 10/11/2017 11:01 Macho Fernandez MD IMG VASCULAR O RDERABLES documented in this encounter Visit Diagnoses Diagnosis Pain in both lower extremities- Primary documented in this encounter Care Teams Stereotyper Apprentice Relationship Specialty Start Date End Date Obey Osborn APRN [address] [place] [address] [address] PCP - General 08/29/17 10/10/18 documented as of this encounter
--- OUTSIDE RECORDS SUMMARY | 2024-01-04 14:49 | XMS_ITS | Encounter Summary ---
Author Organization [facility] Address [address] [place] [address] Care Team Providers Care Ground Instructor Basic Name Role Phone Obey Osborn APRN Primary Care Provider [phone] Reason for Visit * Reason Onset Date Comments Appointment Related 09/28/2017 Encounter Details Date Type Department Care Team ([facility] st Contact Info) Description 09/28/2017 Telephone [facility] Neurology - S [address] [address] Unknown, Doctor MD Appointment Related Social History [...] Info) Description 04/21/2024 15:00 EST Office Visit [facility] Neurology - S [address] [phone] Robby Abraham MD [address] [place] [address], Level 2 [place] [phone] documented as of this encounter Visit Diagnoses Not on filedocumented in this encounter Care Teams Ground Instructor Basic Relationship Specialty Start Date End Date Obey Osborn APRN [address] [place] [address] [address] [place], [place] [phone] PCP - General 08/29/17 10/10/18 documented as of this encounter
--- OUTSIDE RECORDS SUMMARY | 2024-01-04 14:49 | XMS_ITS | Encounter Summary ---
Author Organization [facility] Address [address] [place] [address] Care Team Providers Care Qualitative Field Coordinator Name Role Phone Obey Osborn APRN Primary Care Provider [phone] None, Provider Primary Care Provider Jennifer Rushing MD Primary Care Provider [phone] Jacey Amador Primary Care Provider [phone] Reason for Visit * Reason Onset Date Comments Results 06/13/2018 Encounter Details Date Type Department Care Team (Late st Contact Info) Description 06/13/2018 Telephone [facility] Hematology & Oncology - [address] [address] Yarely Marti MD [address] [place] [address], Level 2 [place] [address] Results Social History Tobacco Use [...] EST Office Visit [facility] Neurology - S [address] [address] Robby Abraham MD [address] [place] [address], Level 2 [place] [address] documented as of this encounter Procedures Procedure Name Priority Date/Time Associated Diagnosis Comments CREATININE Routine 06/13/2018 documented in this encounter Results * CREATININE (06/13/2018) Creatinine, External 0.60 [facility] GFR, Calculated, External [facility] Blood specimen (specimen) 06/13/2018 Historical Provider CHEMISTRY & BLOOD GAS ORDERABLES [facility] documented in this encounter Visit Diagnoses Not on filedocumented in this encounter Care Teams Qualitative Field Coordinator Relationship Specialty Start Date End Date Obey Osborn APRN [address] [facility] 2 [place], [place] [phone] PCP - General 08/29/17 10/10/18 None, Provider PCP - General 10/11/18 12/02/18 Jennifer Sr MD [address] [facility] [place], [place] [phone] PCP - General 12/03/18 08/29/22 Jacey Amador FNP [address] [place] [phone] PCP - General Family Medicine - Primary Care 08/30/22 documented as of this encounter
--- OUTSIDE RECORDS SUMMARY | 2024-01-04 14:49 | XMS_ITS | Encounter Summary ---
Author Organization [facility] Address [address] [place] [address] Care Team Providers Care Sheriff Detective Name Role Phone Obey Osborn APRN Primary Care Provider [phone] Reason for Visit * Office Procedure (Routine) - Closed Specialty Diagnoses / Procedures Referred By [facility] Referred To Contact Neurology Diagnoses Neuropathy Procedures EMG/NERVE CONDUCTION STUDY Robby Abraham MD [address] [place] [phone] [facility] Neuromusc & Clin Neurophys [address] [place] [address] Referral ID Status Reason Start Date Expiration Date Visits Re quested Visits Authorized [id number] Closed 01/14/2018 1 1 Encounter Details Date Type Department Care Team (Latest Contact Info) Description 02/27/2018 13:04 EST - 02/27/2018 23:59 EST Hospital Encounter [facility] Neurophysiology - [facility] [address] [place] [address] Robby Abraham MD [address] [place] [phone] Neuropathic pain Discharge Disposition: Auto Discharge [...] accuracy and appropriately updated today in the [employer] ([employer] database. Review of Systems: A full 10 [...] the referring physician MD Robby Dorantes M.D. Sumo Wrestler of Neurology ABPN Board Certified, Neurology ABEM Board Certified, EMG documented in this encounter Plan of Treatment Upcoming Encounters Date Type Department Care Team (Late st Contact Info) Description 04/21/2024 15:00 EST Office Visit [facility] Neurology - S [address] [address] Robby Abraham MD [address] [place] [address], Level 2 [place] [phone] documented as of this encounter Procedures Procedure Name Priority Date/Time Associated Diagnosis Comments ELECTROMYOGRAM - SCANNED 03/04/2018 7:59 EST documented in this encounter Results * ELECTROMYOGRAM - SCANNED (03/04/2018 7:59 EST) 03/04/2018 7:59 EST Scan 2 Director Cardiovascular PROCEDURE/MINOR MAIRA GICAL ORDERABLES documented in this encounter Visit Diagnoses Diagnosis Neuropathic pain Neuralgia, neuritis, and radiculitis, unspecified documented in this encounter Care Teams Sheriff Detective Relationship Specialty Start Date End Date Obey Osborn APRN [address] [place] [address] [address] [place] [address] PCP - General 08/29/17 10/10/18 documented as of this encounter
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
--- OUTSIDE RECORDS SUMMARY | 2024-01-04 14:49 | XMS_ITS | Encounter Summary ---
Author Organization [facility] Address [address] [place] [address] Care Team Providers Care Police Patrol Lieutenant Name Role Phone None, Provider Primary Care Provider Jennifer Rushing MD Primary Care Provider [phone] Reason for Visit * Reason Onset Date Comments Appointment Related 10/15/2018 Encounter Details Date Type Department Care Team ([facility] st Contact Info) Description 10/15/2018 Telephone [facility] Rheumatology & Immunology - [address] [address] Carl Flood Chi, MD [address] [place] [address], Level 5 [place] [address] Appointment Related Social History Tobacco [...] Visit [facility] Neurology - S [address] 840[address] Robby Abraham MD [address] [place] [address] [address] 2 [place] [phone] documented as of this encounter Visit Diagnoses Not on filedocumented in this encounter Care Teams Police Patrol Lieutenant Relationship Specialty Start Date End Date None, Provider PCP - General 10/11/18 12/02/18 Jennifer Sr MD [address], [address] [phone] PCP - General 12/03/18 08/29/22 documented as of this encounter
--- OUTSIDE RECORDS SUMMARY | 2024-01-04 14:49 | XMS_ITS | Encounter Summary ---
Author Organization [facility] Address [address] [place] [address] Care Team Providers Care Process Design Chemical Engineer Name Role Phone Obey Osborn APRN Primary Care Provider [phone] Encounter Details Date Type Department Care Team (Late Contact Info) Description 06/21/2018 Results Only Imaging [facility] PRISM [phone] Unknown, Provider, Social History Tobacco Use Types [...] Team ([facility] Contact Info) Description 04/21/2024 15:00 EST Office Visit [facility] Neurology - S [place] [address] [place] [phone] Robby Abraham MD [address] [place] [address], Level 2 [place] [address] Pending Results Name Type Priority Associated Diagnoses Date /Time OUTSIDE IMAGES - MR NEURO Imaging 06/21/2018 10:04 EDT OUTSIDE IMAGES - MR NEURO Imaging 06/21/2018 10:04 EDT documented as of this encounter Visit Diagnoses Not on filedocumented in this encounter Care Teams Process Design Chemical Engineer Relationship Specialty Start Date End Date Obey Osborn APRN [address] [place] [address] [address] [place] [address] PCP - General 08/29/17 10/10/18 documented as of this encounter
--- OUTSIDE RECORDS SUMMARY | 2024-01-04 14:50 | XMS_ITS | Encounter Summary ---
Author Organization [facility] Address [address] [place] [address] Care Team Providers Care Watch Caser Name Role Phone Ca Leggett MD Primary Care Provider Unavailable Encounter Details Date Type Department Care Team (Late Contact Info) Description 11/06/2002 Results Only [facility] - Maple conversion [address] [place], [place] [address] [phone] Aime Haider MD Social History Tobacco Use [...] Visit [facility] Neurology - S [place] [address] [place] [phone] Robby Abraham MD [address] [place] [address], Level [address] [place] [phone] documented as of this encounter Procedures Procedure [...] ? AYDEE MEJIA ? Accession #: ? [id number] : ? 1965 (Age: 37) ??F ?Collect [...] MD PATHOLOGY ORDERABLES [facility] [address] [place] [address] documented in this encounter Visit Diagnoses Not on filedocumented in this encounter Care Teams Watch Caser Relationship Specialty Start Date End Date Ca Leggett MD PCP - General 09/07/08 12/04/10 documented as of this encounter
--- OUTSIDE RECORDS SUMMARY | 2024-01-04 14:50 | XMS_ITS | Encounter Summary ---
Author Organization [facility] Address [address] [place] [address] Care Team Providers Care Meat Scrubber Name Role Phone Porsha Louise ND Primary Care Provider Malina matamoros Reason for Referral * Radiology Services (Routine) - Closed Specialty Diagnoses / Procedures Referred By Mayda jalloh Referred To Contact Diagnoses Thoracic spine pain Procedures MR THORACIC SPINE WO CONTRAST Carl Flood Chi, MD [address] [place] [phone] Referral ID Status Reason Start Date Expiration Date Visits Re quested Visits Authorized [id number] Closed 02/14/2017 1 1 Reason for Visit * Reason Onset Date Comments Back Problem 02/13/2017 Appointment Related 02/13/2017 Returning Call 02/13/2017 to nurse Encounter Details Date Type Department Care Team (Late st Contact Info) Description 02/13/2017 Telephone [facility] Cardiology - [place] [address] [place] [address] Carl Flood Chi, MD [address] [place] [phone] Back Problem; Appointment Related; Returning Call [...] EST Spoke with patient. She said the cyber transport systems specialist was only looking at her lower [...] so she is working with the [facility] but the provider isn't listening to heror her concerns. She would like to discuss Odalys Martinez 02/13/2017 11:25 documented in this encounter Plan of Treatment Upcoming Encounters Date Type Department Care Team (Late st Contact Info) Description 04/21/2024 15:00 EST Office Visit [facility] Neurology - S [place] [address] [place] [address] Robby Abraham MD [address] [place] [address] [place], Level [address] [place] [phone] documented as of this encounter Procedures Procedure [...] spine documented in this encounter Care Teams Meat Scrubber Relationship Specialty Start Date End Date Porsha Louise ND [facility] [place] [address] PCP - General 02/06/17 08/28/17 documented as of this encounter
--- OUTSIDE RECORDS SUMMARY | 2024-01-04 14:50 | XMS_ITS | Encounter Summary ---
Author Organization [facility] Address [address] [place] [address] Care Team Providers Care Hospital Admissions Officer Name Role Phone Unavailable Primary Care Provider Unavailabl e Encounter Details Date Type Department Care Team (Late Contact Info) Description 01/28/1999 23:17 EDT Hospital Encounter [facility] - Other [address] [place] [address] Ruth Agarwal MD [address] [phone] Unknown, Provider, Social History Tobacco Use Types [...] [facility] Neurology - S [place] [address] [place], [place] [address] Robby Abraham MD [address] [place] [address], Level 2 [place] [phone] documented as of this encounter Visit Diagnoses Not on filedocumented in this encounter
--- OUTSIDE RECORDS SUMMARY | 2024-01-04 14:50 | XMS_ITS | Encounter Summary ---
Author Organization [facility] Address [address] [place] [address] Care Team Providers Care Hotel Manager Name Role Phone Ca Leggett MD Primary Care Provider Unavailable Encounter Details Date Type Department Care Team (Late Contact Info) Description 08/03/2006 Results Only [facility] [address] [place] [address] Codie Wayne NP [address] [place] [address] [place], [place] [phone] Social History Tobacco Use Types Packs/Day Years Used Date Smoking Tobacco: Never Assessed Sex and Gender Information Value Date Recorded Sex Assigned at Not on file Gender Identity Female 05/16/2019 9:18 EST Sexual Orientation Not on file documented as of this encounter Plan of Treatment Upcoming Encounters Date Type Department Care Team (Late Contact Info) Description 04/21/2024 15:00 EST Office Visit [facility] Neurology - S [address] [address] Robby Abraham MD [address] [place] [address] 2 [place] [phone] documented as of this encounter Procedures Procedure [...] ? AYDEE MEJIA ? Accession #: ? [id number] : ? 1965 (Age: 41) ??F ?Collect Date: ? 08/03/2006 Location: ? [facility] ? Receive Date: ? 08/06/2006 Provider: ?CODIE WAYNE NP Copy to: ? Srinath First ?[facility] ?[address] ?[place], [place] [address] ? Specimen/Source: ?ThinPrep Pap Test, Cervix/Endocervix, processed on [employer]niVec ThinPrep Imaging System, with manual evaluation Last [...] NP PATHOLOGY ORDERABLE S Performing Organization Address City/State/[facility] Co de Phone Number [facility] [address] [place] [address] documented in this encounter Visit Diagnoses Not on filedocumented in this encounter Care Teams Hotel Manager Relationship Specialty Start Date End Date Ca Leggett MD PCP - General 09/07/08 12/04/10 documented as of this encounter
--- OUTSIDE RECORDS SUMMARY | 2024-01-04 14:50 | XMS_ITS | Encounter Summary ---
Author Organization [facility] Address [address] [place] [address] Care Team Providers Care Extractor And Wringer Operator Name Role Phone Suleiman Zambrano PA-C Primary Care Provider + Encounter Details Date Type Department Care Team (Late Contact Info) Description 04/16/2012 Abstract [facility] Spine Program - [address] [address] Nick Gomez PA-C [address] [place] [address] [place] [address] Social History Tobacco Use Types [...] Description 04/21/2024 15:00 EST Office Visit [facility] Neurology - S [address] [address] Robby Abraham MD [address] [place] [address], Level 2 [place] [address] documented as of this encounter Visit Diagnoses Not on filedocumented in this encounter Care Teams Extractor And Wringer Operator Relationship Specialty Start Date End Date Suleiman Zambrano PA-C [address] [place] [address] PCP - General 04/05/12 10/22/16 documented as of this encounter
--- OUTSIDE RECORDS SUMMARY | 2024-01-04 14:50 | XMS_ITS | Encounter Summary ---
Author Organization [facility] Address [address] [place] [address] Care Team Providers Care Political Cartoonist Name Role Phone Suleiman Zambrano PA-C Primary Care Provider + None, Provider Primary Care Provider Odalys Barrera MD Primary Care Provider [phone] Porsha Louise ND Primary Care Provider Malina matamoros Reason for Visit * Reason Onset Date Comments Coordination Of Care 09/18/2016 RTC/ Medica l referral Follow-up 09/18/2016 Encounter Details Date Type Department Care Team (Late st Contact Info) Description 09/18/2016 Telephone [facility] Rheumatology & Immunology - [address] [phone] Carl Flood Chi, MD [address] [place] [address], Level [address] [place] [phone] Coordination Of Care (RTC/ Medical referral ); [...] Telephone Encounter - Jazlyn Zamora - 09/19/2016 6266 EDT Reason for Call: Coordination Of Care (RTC/ Medical referral ) and Follow-up Summary/Symptoms: Per patient, RCT office is closed for the day. Wanted to let Daysi know. Jazlyn Zamora 09/19/2016 15:56 * Telephone Encounter - Daysi Wahl RN - 09/19/2016 1548 EDT Unable to locate the form from [facility] ([employer]). Spoke with patient, she will ask them to fax to triage [phone]. We need to fax to Medicaid for decision if transportation is medically necessary. [facility] ph# [phone]. * Telephone Encounter - Jasmeet Langley - [...] Info) Description 04/21/2024 15:00 EST Office Visit [facility] Neurology - S [address] [address] Robby Abraham MD [address] [place] [address], Level [address] [place] [phone] documented as of this encounter Visit Diagnoses Not on filedocumented in this encounter Care Teams Political Cartoonist Relationship Specialty Start Date End Date Suleiman Zambrano PA-C [address] [place] [phone] PCP - General 04/05/12 10/22/16 None, Provider PCP - General 10/23/16 12/05/16 Odalys Hanley MD PCP - General 12/06/16 02/05/17 Porsha Louise ND [address] [place], [place] [address] [address] PCP - General 02/06/17 08/28/17 documented as of this encounter
--- OUTSIDE RECORDS SUMMARY | 2024-01-04 14:50 | XMS_ITS | Encounter Summary ---
Author Organization [facility] Address [address] [place] [address] Care Team Providers Care Residential Installer Name Role Phone Suleiman Zambrano PA-C Primary Care Provider + Reason for Visit * Reason Comments Back Pain Encounter Details Date Type Department Care Team (Late Contact Info) Description 04/12/2012 Telephone [facility] Total Joint Program [place] [address] Nick Gomez PA-C [address] [place] [address] [place] [address] Back Pain Social History Tobacco [...] [facility] Neurology - S [place] 1 [place] [address] Robby Abraham MD [address] [place] [address], Level [address] [place] [phone] documented as of this encounter Visit Diagnoses Not on filedocumented in this encounter Care Teams Residential Installer Relationship Specialty Start Date End Date Suleiman Zambrano PA-C [address] [place] [address] PCP - General 04/05/12 10/22/16 documented as of this encounter
--- OUTSIDE RECORDS SUMMARY | 2024-01-04 14:50 | XMS_ITS | Encounter Summary ---
Author Organization [facility] Address [address] [place] [address] Care Team Providers Care Sub Acute Care Nurse Name Role Phone Porsha Louise ND Primary Care Provider Malina matamoros Encounter Details Date Type Department Care Team ([facility] Contact Info) Description 03/15/2017 10:54 EST - 03/15/2017 23:59 EST Hospital Encounter [facility] - [address] [place] [address] Carl Flood Chi, MD 111 [facility], Level 5 [place] [phone] Discharge Disposition: Auto Discharge Social History Tobacco [...] Visit [facility] Neurology - S [address] [address] Robby Abraham MD [address] [place] [address], Level 2 [place] [phone] documented as of this encounter Visit Diagnoses Not on filedocumented in this encounter Care Teams Sub Acute Care Nurse Relationship Specialty Start Date [place] [address] PCP - General 02/06/17 08/28/17 documented as of this encounter
--- OUTSIDE RECORDS SUMMARY | 2024-01-04 14:50 | XMS_ITS | Encounter Summary ---
Author Organization [facility] Address [address] [place] [address] Care Team Providers Care Sole Leveling Machine Operator Name Role Phone Unavailable Primary Care Provider Unavailabl e Encounter Details Date Type Department Care Team (Late Contact Info) Description 09/03/2008 Orders Only [facility] Laboratory Services - [facility] ([facility]) [address] [place] [address] Jayson Ortiz MD [address] [place] [address] Social History Tobacco Use Types Packs/Day Years Used Date Smoking Tobacco: Never Assessed Sex and Gender Information Value Date Recorded Sex Assigned at Not on file Gender Identity Female 05/16/2019 9:18 EST Sexual Orientation Not on file documented as of this encounter Plan of Treatment Upcoming Encounters Date Type Department Care Team (Late Contact Info) Description 04/21/2024 15:00 EST Office Visit [facility] Neurology - S [address] [address] Robby Abraham MD [address] [place] [address] Level 2 [place] [phone] documented as of this encounter Procedures Procedure [...] ? MEJIA, AYDEE ? Accession #: ? [id number] ? : ? 1965 (Age: 43) ??F [...] PATHOLOGY ORDERABLE S [facility] [address] [place] [address] documented in this encounter Visit Diagnoses Not on filedocumented in this encounter
--- OUTSIDE RECORDS SUMMARY | 2024-01-04 14:50 | XMS_ITS | Encounter Summary ---
Author Organization [facility] Address [address] [place] [address] Care Team Providers Care Oil Producer Name Role Phone Suleiman Zambrano PA-C Primary Care Provider + Encounter Details Date Type Department Care Team (Late Contact Info) Description 04/30/2012 6:57 EST - 04/30/2012 23:59 EST Hospital Encounter [address] [place] [address] Nick Dimas MD [address] [place] [phone] Discharge Disposition: Home or Self Care Social [...] Code Departure Means Destination Home or Self Correction documented in this encounter Plan of Treatment Upcoming Encounters Date Type Department [facility] Description 04/21/2024 15:00 EST Office Visit [facility] Neurology - S [place] [address] [place] [address] Robby Abraham MD 1 [facility], Level [address] [place] [address] documented as of this encounter Visit Diagnoses Not on filedocumented in this encounter Care Teams Oil Producer Relationship Specialty Start Date End Date Suleiman Zambrano PA-C [address] [place] [phone] PCP - General 04/05/12 10/22/16 documented as of this encounter
--- OUTSIDE RECORDS SUMMARY | 2024-01-04 14:50 | XMS_ITS | Encounter Summary ---
Author Organization [facility] Address [address] [place] [address] Care Team Providers Care Life Insurance Sales Name Role Phone Ca Leggett MD Primary Care Provider Unavailable Encounter Details Date Type Department Care Team (Late Contact Info) Description 08/11/2005 Results Only [facility] [address] [place] [address] Codie Wayne NP [address] [place] [address] [place], [place] [phone] Social History Tobacco Use Types Packs/Day Years [...] Visit [facility] Neurology - S [address] [address] Robby Abraham MD [address] [place] [address] 2 [place] [phone] documented as of this encounter Procedures Procedure [...] ? AYDEE MEJIA ? Accession #: ? [id number] : ? 1965 (Age: 40) ??F ?Collect Date: ? 08/11/2005 Location: ? [facility] ? Receive Date: ? 08/14/2005 Provider: ?CODIE WAYNE PROCESS COACH Copy to: ? Specimen/Source: ?ThinPrep Pap Test, Vagina/Cervix, processed on [employer] ThinPrep Imaging System, with manual evaluation Last [...] NP PATHOLOGY ORDERABLE S [facility] [address] [place] [address] documented in this encounter Visit Diagnoses Not on filedocumented in this encounter Care Teams Life Insurance Sales Relationship Specialty Start Date End Date Ca Leggett MD PCP - General 09/07/08 12/04/10 documented as of this encounter
--- OUTSIDE RECORDS SUMMARY | 2024-01-04 14:50 | XMS_ITS | Encounter Summary ---
Author Organization [facility] Address [address] [place] [address] Care Team Providers Care Rotary Derrick Operator Name Role Phone Porsha Louise ND Primary Care Provider Malina matamoros Reason for Referral * Radiology Services (Routine) - Closed Specialty Diagnoses / Procedures Referred By Contac t Referred To Contact Diagnoses Chronic bilateral low back pain, with sciatica presence unspecified Pain in both lower extremities Procedures MR LUMBAR SPINE WO CONTRAST Nick Gomez PA-C [address] [place] [address] Referral ID Status Reason Start Date Expiration Date Visits Re quested Visits Authorized [id number] Closed 02/06/2017 1 1 * PT/OT/ST (Routine) - Closed Specialty Diagnoses / Procedures Referred By Contac t Referred To Contact Diagnoses Chronic bilateral low back pain, with sciatica presence unspecified Nick Gomez PA-C [address] [place] [address] Referral ID Status Reason Start Date Expiration Date V isits Requested Visits Authorized [id number] Closed Specialty Services Required 02/06/2017 1 1 Question Answer Reason for Request: aquatic therapy with endurance training and core stabilization Reason for Visit * Reason Comments Back Pain mid back pain * Consult, Test and Treat (Routine) - Closed Specialty Diagnoses / Procedures Referred By Contac t Referred To Contact Orthopedic Surgery Diagnoses Back pain Porsha Louise ND [address] [place] [address] [facility] [address] [place] [address] Referral ID Status Reason Start Date Expiration Date Visits Re quested Visits Authorized [id number] Closed 1 1 Encounter Details Date Type Department Care Team (Late st Contact Info) Description 02/06/2017 14:45 EDT Office Visit [facility] Spine Program - [facility] [address] [place] [address] Nick Gomez PA-C [address] [facility] [place] [address] Chronic bilateral low back pain, [...] exacerbated by sitting, standing, walking, physical therapy, health and social care teacher, sneezing, bending forward and driving, though she [...] at the patella, 0 at the achilles [id number] is NR there is no clonus SLR right: neg Left: neg Hips have FROM without pain Neurologic Exam Mental Status Oriented to person, place, and time. Cranial Nerves CN III, IV, Extraocular motions are normal. The prior workup of the patient includes: Lumbar films obtained in October of this year reveal 5 [id number]-[id number] lumbar vertebrae, no scoliosis. Lateral view reveals [...] Description 04/21/2024 15:00 EST Office Visit [facility] Neurology - [address] [id number] Robby Abraham MD [address] [place] [address], Level 2 [place] [phone] Scheduled Referrals Name Type Priority Associated Diagnoses [...] extremities documented in this encounter Care Teams Rotary Derrick Operator Relationship Specialty Start Date End Date Porsha Louise ND [address] [place] [address] PCP - General 02/06/17 08/28/17 documented as of this encounter
--- OUTSIDE RECORDS SUMMARY | 2024-01-04 14:50 | XMS_ITS | Encounter Summary ---
Author Organization [facility] Address [address] [place] [address] Care Team Providers Care Photographic Processor Name Role Phone Ca Leggett MD Primary Care Provider Unavailable Encounter Details Date Type Department Care Team (Late Contact Info) Description 03/07/2001 Results Only [facility] - [facility] [address] [place] [address] Dewayne Cunningham MD [address] [place] [phone] Social History Tobacco Use Types Packs/Day Years Used Date Smoking Tobacco: Never Assessed Sex and Gender Information Value Date Recorded Sex Assigned at Not on file Gender Identity Female 05/16/2019 9:18 EST Sexual Orientation Not on file documented as of this encounter Plan of Treatment Upcoming Encounters Date Type Department Care Team (Late Contact Info) Description 04/21/2024 15:00 EST Office Visit [facility] Neurology - S [place] [address] [place], [place] [address] Robby Abraham MD [address] [place] [address] [address] [place] [phone] documented as of this encounter Procedures Procedure [...] ? AYDEE MEJIA ? Accession #: ? [id number] : ? 1965 (Age: 36) ??F ?Collect [...] PATHOLOGY ORDERABLE S [facility] [address] [place] [address] documented in this encounter Visit Diagnoses Not on filedocumented in this encounter Care Teams Photographic Processor Relationship Specialty Start Date End Date Ca Leggett MD PCP - General 09/07/08 12/04/10 documented as of this encounter
--- OUTSIDE RECORDS SUMMARY | 2024-01-04 14:50 | XMS_ITS | Encounter Summary ---
Author Organization [facility] Address [address] [place] [address] Care Team Providers Care Prize Coordinator Name Role Phone Ca Leggett MD Primary Care Provider Unavailable Encounter Details Date Type Department Care Team (Late Contact Info) Description 05/26/2010 Results Only [facility] [place] [facility] Laboratory Services - [facility] ([facility] [address] [place] [address] Zoraida Ordoñez MD [address] [place], [place] [address] Social History Tobacco Use Types Packs/Day Years Used Date Smoking Tobacco: Never Assessed Sex and Gender Information Value Date Recorded Sex Assigned at Not on file Gender Identity Female 05/16/2019 9:18 EST Sexual Orientation Not on file documented as of this encounter Plan of Treatment Upcoming Encounters Date Type Department Care Team ([facility] Contact Info) Description 04/21/2024 15:00 EST Office Visit [facility] [place] [facility] Neurology - [address] [address] Robby Abraham MD [address] [place] [address] [address] 2 [place] [phone] documented as of this encounter Procedures Procedure [...] ? AYDEE MEJIA ? Accession #: ? [id number] ? : ? 1965 (Age: 45) ??F [...] Ordoñez MD PATHOLOGY ORDERABLES Performing Organization Address City/State/[place] Co de Phone Number [facility] [address] [place] [address] documented in this encounter Visit Diagnoses Not on filedocumented in this encounter Care Teams Prize Coordinator Relationship Specialty Start Date End Date Ca Leggett MD PCP - General 09/07/08 12/04/10 documented as of this encounter
--- OUTSIDE RECORDS SUMMARY | 2024-01-04 14:50 | XMS_ITS | Encounter Summary ---
Author Organization [facility] Address [address] [place] [address] Care Team Providers Care Candlemaker Name Role Phone Porsha Louise ND Primary Care Provider Malina matamoros Reason for Referral * Consult (Routine) - Specialty Report Received Specialty Diagnoses / Procedures Referred By Mayda jalloh Referred To Contact Pain Medicine Diagnoses Chronic bilateral low back pain without sciatica Nick Gomez PA-C [address] [place] [address] [place] [address] [facility] [address] [place] [address] Referral ID Status Reason Start Date Expiration Date Visits Requested Visits Authorized [id number] Specialty Report Received Specialty Services Required 7 [...] ([facility] Contact Info) Description 03/20/2017 Telephone [facility] - [place] [facility] [place] [address] Nick Gomez PA-C [address] [facility] [place] [address] Appointment Related Social History Tobacco [...] Visit [facility] Neurology - [address] [address] Robby Abraham MD [address] [place] [address], Level 2 [place] [address] Scheduled Referrals Name Type Priority Associated Diagnoses Order Schedule AMB CONS/FOLLOW UP PAIN INTERVENTIONAL Outpatient Referral Routine Chronic bilateral low back pain without sciatica Ordered: 03/20/2017 documented as of this encounter Visit Diagnoses Diagnosis Chronic bilateral low back pain without sciatica- Primary documented in this encounter Care Teams Candlemaker Relationship Specialty Start Date [place] [address] PCP - General 02/06/17 08/28/17 documented as of this encounter
--- OUTSIDE RECORDS SUMMARY | 2024-01-04 14:50 | XMS_ITS | Encounter Summary ---
Author Organization [facility] Address [address] [place] [address] Care Team Providers Care Tanker Serviceman Name Role Phone Odalys Hanley MD Primary Care Provider [phone] Porsha Louise ND Primary Care Provider Malina matamoros Reason for Visit * Reason Onset Date Comments Appointment Related 12/06/2016 Office is as truman for copy of note from 10/23/16 visit to be faxed. Encounter Details Date Type Department Care Team ([facility] Contact Info) Description 12/06/2016 Telephone [facility] [place] [facility]ology [facility] Immunology - [address] [address] Carl Flood Chi, MD [address] [place] [address], Level 5 [place] [address] Appointment Related (Office is asking [...] Please fax notes from 10/23/16 visit to [facility]- PCP office. Cassandra Grady 12/06/2016 11:29 documented in this encounter Plan of Treatment Upcoming Encounters Date Type Department Care Team (Late st Contact Info) Description 04/21/2024 15:00 EST Office Visit [facility] Neurology - [address] [place] [address] [place] [id number] Robby Abraham MD [address] [place] [address], Level [address] [place] [phone] documented as of this encounter Visit Diagnoses Not on filedocumented in this encounter Care Teams Tanker Serviceman Relationship Specialty Start Date End Date Odalys Hanley MD PCP - General 12/06/16 02/05/17 Porsha Louise ND [facility] [place] [address] PCP - General 02/06/17 08/28/17 documented as of this encounter
--- OUTSIDE RECORDS SUMMARY | 2024-01-04 14:50 | XMS_ITS | Encounter Summary ---
Author Organization [facility] Address [address] [place] [address] Care Team Providers Care Assurance Specialist Name Role Phone Suleiman Zambrano PA-C Primary Care Provider + Reason for Referral * Radiology Services (Routine/Next Available) - Closed Specialty Diagnoses / Procedures Referred By Mayda jalloh Referred To Contact Diagnoses Low back pain Procedures L SPINE 4 OR MORE VIEWS Nick Gomez PA-C [address] [place] [phone] Referral ID Status Reason Start Date Expiration Date Visits Re quested Visits Authorized [id number] Closed 04/12/2012 1 1 Reason for Visit * Reason Comments Back Pain Encounter Details Date Type Department Care Team ([facility] st Contact Info) Description 04/12/2012 10:00 EST Office Visit [facility] Spine Program - [address] [place] [address] Nick Gomez PA-C [address] [place] [phone] Low back pain (Primary Dx); Lumbar [...] Info) Description 04/21/2024 15:00 EST Office Visit [facility] Neurology - [address] [place] [address] [place] [address] Robby Abraham MD [address] [place], [place] [address], Level 2 [place] [phone] documented as of this encounter Procedures Procedure [...] ??Apr 12, 2012 10:43:00 AM Clinical History/Comments: 724.2-Fwuelri-VWK-9-CM; low back pain Comparisons: None. Findings: 4 [...] Apr 12, 2012 10:43:00 AM Clinical History/Comments: 724.9-Cfazrjc-EXY-9-CM; low back pain Comparisons: None. Findings: 4 [...] 10/23/2016 added in this encounter Care Teams Assurance Specialist Relationship Specialty Start Date End Date Suleiman Zambrano PA-C [address] [place] [address] PCP - General 04/05/12 10/22/16 documented as of this encounter
--- OUTSIDE RECORDS SUMMARY | 2024-01-04 14:50 | XMS_ITS | Encounter Summary ---
Author Organization [facility] Address [address] [place] [address] Care Team Providers Care Supervisor Cutting And Boning Name Role Phone Ca Leggett MD Primary Care Provider Unavailable Encounter Details Date Type Department Care Team (Late Contact Info) Description 07/04/2004 Results Only [facility] - [place] conversion [address] [place] [address] Nuvia Velázquez MD [address] [place] [phone] Social History Tobacco Use Types Packs/Day Years Used Date Smoking Tobacco: Never Assessed Sex and Gender Information Value Date Recorded Sex Assigned at Not on file Gender Identity Female 05/16/2019 9:18 EST Sexual Orientation Not on file documented as of this encounter Plan of Treatment Upcoming Encounters Date Type Department Care Team ([facility] Contact Info) Description 04/21/2024 15:00 EST Office Visit [facility] Neurology - [address] [place] [address] [place], [place] [address] Robby Abraham MD [address] [place] [address] 2 [place] [phone] documented as of this encounter Procedures Procedure [...] ? AYDEE MEJIA ? Accession #: ? [id number] : ? 1965 (Age: 39) ??F ?Collect Date: ? 07/04/2004 Location: ? [facility] ? Receive Date: ? 07/06/2004 Provider: ?NUVIA VELÁZQUEZ MD Copy to: ? [facility] ?[facility] ?[address] ?[place], [place] [address] ? Specimen/Source: ?ThinPrep Pap Test, Cervix Last [...] MD PATHOLOGY ORDERAB LES Performing Organization Address City/State/[facility] Co de Phone Number [facility] [address] [place] [address] documented in this encounter Visit Diagnoses Not on filedocumented in this encounter Care Teams Supervisor Cutting And Boning Relationship Specialty Start Date End Date Ca Leggett MD PCP - General 09/07/08 12/04/10 documented as of this encounter
--- OUTSIDE RECORDS SUMMARY | 2024-01-04 14:50 | XMS_ITS | Encounter Summary ---
Author Organization [facility] Address [address] [place] [address] Care Team Providers Care Cake Maker Name Role Phone Unavailable Primary Care Provider Unavailabl e Encounter Details Date Type Department Care Team (Late st Contact Info) Description 09/23/1999 20:30 EDT Hospital Encounter [facility] - Other [address] [place] [address] Maury Agarwal MD [address] [phone] Unknown, Provider, Social History Tobacco Use Types [...] 15:00 EST Office Visit [facility] Neurology - [address] [place] [address] [place], [place] [address] Robby Abraham MD [address] [place] [address], Level 2 [place] [phone] documented as of this encounter Procedures Procedure [...] [facility] Comment: Desirable:<200 Borderline:200-239 High Risk:>gv=214 Triglycerides 264(H) 35 - 160 mg/dl [facility] HDL 46 mg/dl [facility] Comment: Highly Desirable:>60 Desirable:35-60 High Risk:<35 LDL, Calculated 140 mg/dl [facility] Comment: Desirable:<130 Borderline:130-159 High Risk:>ta=824 Chol/HDL Ratio 5.2 [facility] 09/23/1999 10:2 5 EDT 09/23/1999 19:52 EDT Maury Agarwal MD CHEMISTRY & BLOOD GA S ORDERABLES [facility] [address] [place] [address] * COMPREHENSIVE METABOLIC PANEL (09/23/1999 10:25 EDT) [...] GA S ORDERABLES [facility] [address] [place] [address] * CYTOPATHOLOGY (09/23/1999 0:00 EDT) Pathology Report: CYTOPATHOLOGY REPORT Reports generated via electronic interface contain original data; however they are lacking the format of the original report. Caution should be taken when reading/interpreti ng unformatted reports. Name: ? MEJIA AYDEE ? Accession #: ? [id number] : ? 1965 (Age: 34) ??F ?Collect [...] Agarwal MD PATHOLOGY ORDERABLES [facility] [address] [place] [address] documented in this encounter Visit Diagnoses Not on filedocumented in this encounter
--- OUTSIDE RECORDS SUMMARY | 2024-01-04 14:50 | XMS_ITS | Encounter Summary ---
Author Organization [facility] Address [address] [place] [address] Care Team Providers Care Diabetes Manager Name Role Phone None, Provider Primary Care Provider Unavailabl e Reason for Referral * Radiology Services (Routine) - Closed Specialty Diagnoses / Procedures Referred By Contac t Referred To Contact Diagnoses Pain in thoracic spine Procedures THORACIC SPINE 2-3 VIEWS Carl Flood Chi, MD [address] [place] [phone] Referral ID Status Reason Start Date Expiration Date Visits Re quested Visits Authorized [id number] Closed 10/23/2016 1 1 * Radiology Services (Routine) - Closed Specialty Diagnoses / Procedures Referred By Contac t Referred To Contact Diagnoses Lumbar spine pain Procedures L SPINE 2-3 VIEWS Carl Flood Chi, MD [address] [place] [phone] Referral ID Status Reason Start Date Expiration Date Visits Re quested Visits Authorized [id number] Closed 10/23/2016 1 1 Reason for Visit * Reason Comments New Patient Visit Patient is being see n at the request of Ida Erickson at [facility] for evaluation of arthritis, lyme disease, +ADRIANA. Encounter Details Date Type Department Care Team ([facility] st Contact Info) Description 10/23/2016 13:25 EDT Office Visit [facility] Rheumatology & Immunology - [address] [address] Carl Flood Chi, MD [address] [place] [address], [address] [place] [address] Positive ADRIANA (antinuclear antibody) (Primary [...] at the request of Ida Erickson at [facility] for evaluation of arthritis, lyme disease, [...] issues in 2011 when she was in [place]- this resolved over several months. Had tick bite in 2009. Saw doctors in [place] and [place] with negative w/u . Ultimately dx with liver damage and pneumonia in [place]. Her was in [place]. Took antibiotics for pneumonia and liver issue resolved. Has had chronic foot numbness since 2011. Current therapy is not helping. Has had red discolorationon the face since July. Has had nerve conduction studies to the lower extremities in [place], [place] and [facility] - all negative. Skin bx was negative. Saw [facility] in [place], [place]- where she was found to have [...] foot drop?) and headaches. Negative for seizures. [place] palsy x 2014- with left numbness; then [...] ALMA ROSA SSA ANTIBODIES BY ALMA ROSA PUBLIC ADMINISTRATION TEACHER ANTIBODIES BY ALMA ROSA THYROID ANTIBODIES 2. [...] 04/21/2024 15:00 EST Office Visit [facility] Neurology - [address] [place] [address] [place] [address] Robby Abraham MD [address] [place] [address], [address] [place] [address] documented as of this encounter Procedures Procedure Name Priority Date/Time Associated Diagnosis Comments THORACIC SPINE 2-3 VIEWS Routine 10/23/2016 15:18 EDT Pain in thoracic spine L SPINE 2-3 VIEWS Routine 10/23/2016 15: 18 EDT Lumbar spine pain documented in this encounter Results * THYROID ANTIBODIES (10/23/2016 15:34 EDT) Thyroglobulin Ab 16 <61 U/mL 10/25/19 17 9:24 EDT [facility] Thyroperoxidase Ab <28 <61 U/mL 2016 10:18 EDT [facility] Blood specimen (specimen) BLOOD SPECIMEN / Unknown 10/23/2016 15:34 EDT 10/23/2016 15:47 EDT Carl Flood MD CHEMISTRY & BLOOD GA S ORDERABLES [facility] [address] [place] [address] * FOLATE (10/23/2016 15:34 EDT) Folate 14.9 ng/ml 10/24/2016 13:01 EDT [facility] Comment: Deficient: ??Less than 3.4 ng/mL Indeterminate: ??3.4-5.4 ng/mL Normal: ??Greater than 5.4 ng/mL Blood specimen (specimen) BLOOD SPECIMEN / Unknown 10/23/2016 15:34 EDT 10/23/2016 15:47 EDT Narrative Authorizing Provider Result Charly Flood MD CHEMISTRY & BLOOD GA S ORDERABLES Performing Organization Address [facility] de Phone Number [facility] [address] [place] [address] * PUBLIC ADMINISTRATION TEACHER ANTIBODIES BY ALMA ROSA (10/23/2016 15:34 EDT) PUBLIC ADMINISTRATION TEACHER Antibody 1.9 <20 Units 10/24/2016 12:54 EDT [facility] Comment: Negative: <20 Units Weak Positive: 20 - 39 Units Moderate Positive: 40 - 80 Units Strong Positive: >80 Units Results were obtained with the [employer] QUANTA Lite PUBLIC ADMINISTRATION TEACHER ALMA ROSA. PUBLIC ADMINISTRATION TEACHER Values obtained with different manufacturers' assay methods may not be used interchangeably. The magnitude of the reported IgG levels cannot be correlated to an endpoint titer. A positive result in the QUANTA Lite PUBLIC ADMINISTRATION TEACHER ALMA ROSA indicates the presence of antibodies reactive with the PUBLIC ADMINISTRATION TEACHER/Sm complex but cannot distinguish between anti-Sm and anti-PUBLIC ADMINISTRATION TEACHER activity. Blood specimen (specimen) BLOOD SPECIMEN / Unknown 10/23/2016 15:34 EDT 10/23/2016 15:47 EDT Narrative Authorizing Provider Result Charly Flood MD IMMUNOLOGY AND SEROL OGY ORDERABLES Performing Organization Address [facility] de Phone Number [facility] [address] [place] [address] * SSA ANTIBODIES BY ALMA ROSA (10/23/2016 15:34 EDT) SSA Antibody 1.5 <20 Units 10/24/2016 12:53 EDT [facility] Comment: Negative: <20 Units [...] OGY ORDERABLES Performing Organization Address [facility] de Phone Number [facility] [address] [place] [address] * SSB ANTIBODIES BY ALMAR OSA (10/23/2016 15:34 EDT) SSB Antibody 2.6 <20 Units 10/24/2016 12:53 EDT [facility] Comment: Negative: <20 Units Weak Positive: 20 - 39 Units Moderate Positive: 40 - 80 Units Strong Positive: >80 Units Results were obtained with the irisnote QUANTA SS-B ALMA ROSA. SS-B values obtained with different manufacturers' assay methods may not be used interchangeably. The magnitude of the reported IgG levels cannot be correlated to an endpoint titer. Blood specimen (specimen) BLOOD SPECIMEN / Unknown 10/23/2016 15:34 EDT 10/23/2016 15:47 EDT Carl Flood MD IMMUNOLOGY AND SEROL OGY ORDERABLES Performing Organization Address [facility] de Phone Number [facility] [address] [place] [address] * (ABNORMAL) COMPREHENSIVE METABOLIC PANEL (CMP) (10/23/2016 15:34 EDT) Potassium 4.2 3.5 - 5.0 mEq/L 10/23/2016 16:30 EDT [facility] Sodium 141 136 - 145 mEq/L 10/23/2016 16:30 EDT [facility] Chloride 106 96 - 110 mEq/L 10/23/2016 16:30 EDT [facility] CO2 20(L) 22 - 32 mEq/L 10/23/2016 16:30 EDT [facility] Total Alkaline Phosphatase 70 38 - 126 U/L 10/23/2016 16:30 EDT [facility] Bilirubin, Total <0.5 <1.4 mg/dl 10/24/19 17 16:30 EDT [facility] AST 19 15 - 46 U/L 10/23/2016 16:30 [facility] ALT 21 <53 U/L 10/23/2016 16:30 [facility] Albumin 4.4 3.4 - 4.9 g/dl 10/23/2016 16:30 [facility] Total Protein 7.0 6.3 - 8.2 g/dl 10/23/2016 16:30 [facility] Creatinine 0.63 0.52 - 1.04 mg/dl 10/23/2016 16:30 [facility] GFR, Calculated 103 >60 ml/min/1.7 3m2 10/23/2016 16:30 [facility] Comment: eGFR calculated using CKD-EPI equation for non Americans. Multiply eGFR by 1.16 for Americans. BUN 10 10 - 26 mg/dl 10/23/2016 16:30 [facility] Calcium 9.7 8.5 - 10.5 mg/dl 10/23/2016 16:30 [facility] Calculated Calcium 9.4 8.5 - 10.5 mg/dl 10/23/2016 16:30 [facility] Glucose, Serum 97 70 - 100 mg/dl 10/23/2016 16:30 [facility] Fasting? No 10/23/2016 15:33 [facility] Blood specimen (specimen) BLOOD SPECIMEN / Unknown 10/23/2016 15:34 EDT 10/23/2016 15:47 EDT Carl Flood MD CHEMISTRY & BLOOD GA S ORDERABLES [facility] [address] [place] [address] * (ABNORMAL) HEMAGRAM AND DIFFERENTIAL (10/23/2016 15:34 EDT) WBC 8.86 4.0 - 12.4 K/cmm 10/23/2016 16:01 [facility] RBC 4.50 3.86 - 5.04 M/cmm 10/23/2016 16:01 [facility] Hemoglobin 14.5 11.6 - 15.2 gm/dl 10/23/2016 16:01 [facility] HCT 41.2 34.9 - 44.4 % 10/23/2016 16:01 [facility] MCV 92 81 - 98 fl 10/23/2016 16:01 [facility] MCH 32.2 26.7 - 33.3 pg 10/23/2016 16:01 [facility] MCHC 35.2 32.1 - 35.9 gm/dl 10/23/2016 16:01 [facility] RDW-CV 11.9 <14.7 % 10/23/2016 16:01 [facility] RDW-SD 40.0 <50.4 fl 10/23/2016 16:01 [facility] PLT 320 141 - 377 K/cmm 10/23/2016 16:01 [facility] MPV 8.9(L) 9.5 - 12.7 fl 10/23/2016 16:01 [facility] % Neutrophils 49.8 % 10/23/2016 16:01 [facility] % Lymphocytes 39.7 % 10/23/2016 16:01 [facility] % Monocytes 6.2 % 10/23/2016 16:01 [facility] % Eosinophils 3.3 % 10/23/2016 16:01 [facility] % Basophils 0.7 % 10/23/2016 16:01 [facility] % Immature Grans 0.3 % 10/23/2016 16:01 [facility] ABS Neutrophils 4.41 2.20 - 8.85 K/cmm 10/23/2016 16:01 [facility] ABS Lymphs 3.52(H) 1.09 - 3.30 K/cmm 10/23/2016 16:01 [facility] ABS Monocytes 0.55 0.1 - 0.8 K/cmm 10/23/2016 16:01 [facility] ABS Eosinophils 0.29 0.03 - 0.61 K/cmm 10/23/2016 16:01 EDT [facility] ABS Basophils 0.06 0.01 - 0.11 K/[facility] 10/23/2016 16:01 EDT [facility] ABS Immature Grans 0.03 0 - 0.06 /[facility] 10/23/2016 16:01 EDT [facility] Type of Diff: Automated 10/23/2016 16:01 EDT [facility] Blood specimen (specimen) BLOOD SPECIMEN / Unknown 10/23/2016 15:34 EDT 10/23/2016 15:47 EDT Narrative Authorizing Provider Result Charly Flood MD PACKAGES & DNA PROBE ORDERABLES Performing Organization Address [facility] Co de Phone Number [facility] [address] [place] [address] * LYME AB (10/23/2016 15:34 EDT) Lyme AB Negative 10/24/2016 13:24 EDT [facility] Comment:Reference Range: Neg ative Blood specimen (specimen) BLOOD SPECIMEN / Unknown 10/23/2016 15:34 EDT 10/23/2016 15:47 EDT Narrative Authorizing Provider Result Charly Flood MD IMMUNOLOGY AND SEROL OGY ORDERABLES Performing Organization Address [facility] Co de Phone Number [facility] [address] [place] [address] * (ABNORMAL) C4 COMPLEMENT (10/23/2016 15:34 EDT) C4 Complement 40(H) 16 - 38 mg/dl 10/24/2016 10:34 EDT [facility] Blood specimen (specimen) BLOOD SPECIMEN / Unknown 10/23/2016 15:34 EDT 10/23/2016 15:47 EDT Narrative Authorizing Provider Result Charly Flood MD CHEMISTRY & BLOOD GA S ORDERABLES Performing Organization Address [facility]/ZIP Co de Phone Number [facility] [address] [place] [address] * (ABNORMAL) ARTHRITIS 1 (10/23/2016 15:34 EDT) Rheumatoid Factor <20 <20 IU/ml 017 10:34 EDT [facility] ADRIANA Interpretation Positive(A) Negative 10/24/2016 15:04 EDT [facility] Comment: Results were obtained with the irisnote NOVA Lite HEp-2 ADRIANA kit by indirect immunofluorescence. ADRIANA Titer Pattern 1:320 Speckled 10/24/2016 12:46 EDT [facility] Blood specimen (specimen) BLOOD SPECIMEN / Unknown 10/23/2016 15:34 EDT 10/23/2016 15:47 EDT Carl Flood MD IMMUNOLOGY AND SEROL OGY ORDERABLES Performing Organization Address [facility] de Phone Number [facility] [address] [place] [address] * SM (AGEE) ANTIBODY (10/23/2016 15:34 EDT) Pathologist [facility] Sm (Agee) Antibody 0.9 <20 Units 10/24/2016 12:53 EDT [facility] Comment: Negative: <20 Units Weak Positive: 20 - 39 Units Moderate Positive: 40 - 80 Units Strong Positive: >80 Units Results were obtained with the irisnote QUANTA Lite Sm ALMA ROSA. Sm values obtained with different manufacturers' assay methods may not be used interchangeably. The magnitude of the reported IgG levels cannot be correlated to an endpoint titer. Blood specimen (specimen) BLOOD SPECIMEN / Unknown 10/23/2016 15:34 EDT 10/23/2016 15:47 EDT Carl Flood MD IMMUNOLOGY AND SEROL OGY ORDERABLES Performing Organization Address [facility] de Phone Number [facility] [address] [place] [address] * ANTI DNA (DOUBLE STRAND) (10/23/2016 15:34 EDT) Pathologist [facility] Anti DNA (DS) <12.3 <30 IU/mL 10/24/2016 13:58 EDT [facility] Comment:Results were obtaine d with the [employer] QUANTA Lite dsDNA SC ALMA ROSA assay. Blood specimen (specimen) BLOOD SPECIMEN / Unknown 10/23/2016 15:34 EDT 10/23/2016 15:47 EDT Carl Flood MD IMMUNOLOGY AND SEROL OGY ORDERABLES [facility] [address] [place] [address] * THORACIC SPINE 2-3 VIEWS (10/23/2016 15:18 EDT) Anatomical Region Laterality Modality Other 10/23/2016 15:1 8 EDT 10/24/2016 17:55 EDT Narrative 10/24/2016 17:55 EDT THORACIC SPINE 2-3 VIEWS ??10/23/2016 3:18 PM Clinical History/Comments: M54.6-Pain in thoracic [id number]; chronic pain- suspect DDD. Comparison: None available. [...] 3:18 PM Clinical History/Comments: M54.6-Pain in thoracic [id number]; chronic pain- suspect DDD. Comparison: None available. [...] 09/08/2022 added in this encounter Care Teams Diabetes Manager Relationship Specialty Start Date End Date None, Provider PCP - General 10/23/16 12/05/16 documented as of this encounter
--- OUTSIDE RECORDS SUMMARY | 2024-01-04 14:50 | XMS_ITS | Encounter Summary ---
Author Organization [facility] Address [address] [place] [address] Care Team Providers Care Greenhouse Assistant Name Role Phone Suleiman Zambrano PA-C Primary Care Provider + Reason for Visit * Reason Onset Date Comments Discuss Possible Transfer 08/07/2016 RCT Update 08/07/2016 RCT paperwork se nt wrong office Encounter Details Date Type Department Care Team ([facility] Contact Info) Description 08/07/2016 Telephone [facility] Rheumatology & Immunology - [address] [id number] Carl Flood Chi, MD [address] [facility], [address] [place] [address] Discuss Possible Transfer (RCT [phone]); Update (RCT paperwork sent wrong office) Social [...] RN - 08/09/2016 0957 EDT Re-faxed to [place]. * Telephone Encounter - Jasmeet Langley - 08/09/2016 0840 EDT Darya called from [facility] regarding the form for transportation for Aydee and it was sent to the wrong office. Patient gave me the wrong fax. It needs to go to [facility]. Darya is faxingform back. I now have the correct fax for [place] [phone] * Telephone Encounter - Jasmeet Langley - 08/07/2016 1318 EDT Patient is stating please call RTC @ [phone] as this is needed for her to [...] Office Visit [facility] Neurology - [address] [place] [address] [place], [place] [address] Robby Abraham MD [address] [place] [address], [address] [place] [phone] documented as of this encounter Visit Diagnoses Not on filedocumented in this encounter Care Teams Greenhouse Assistant Relationship Specialty Start Date End Date Suleiman Zambrano PA-C [address] [place] [address] PCP - General 04/05/12 10/22/16 documented as of this encounter
--- OUTSIDE RECORDS SUMMARY | 2024-01-04 14:50 | XMS_ITS | Encounter Summary ---
Author Organization [facility] Address [address] [place] [address] Care Team Providers Care Concrete Smoother Name Role Phone None, Provider Primary Care Provider Unavailabl e Encounter Details Date Type Department Care Team (Late st Contact Info) Description 10/23/2016 Phlebotomy Only [facility] [address] [place] [address] Manager Sales Training, Outpatient Positive ADRIANA (antinuclear antibody); Paresthesia of [...] [facility] Neurology - [place] [address] [place] [phone] Robby Abraham MD [address] [place] [address], [address] [place] [address] documented as of this encounter [...] 10/23/2016 15:34 EDT Positive ADRIANA (antinuclear antibody) LABORATORY INSPECTOR ANTIBODY, IGG Routine 10/23/2016 15: 34 EDT [...] 16 <61 U/mL 10/25/19 17 9:24 EDT [facility] Thyroperoxidase Ab <28 <61 U/mL 2016 10:18 EDT [facility] Blood specimen (specimen) BLOOD SPECIMEN / Unknown 10/23/2016 15:34 EDT 10/23/2016 15:47 EDT Carl Flood MD CHEMISTRY & BLOOD GA S ORDERABLES Performing Organization Address [facility] de Phone Number [facility] [address] [place] [address] * FOLATE (10/23/2016 15:34 EDT) Folate 14.9 ng/ml 10/24/2016 13:01 EDT [facility] Comment: Deficient: ??Less than 3.4 ng/mL Indeterminate: ??3.4-5.4 ng/mL Normal: ??Greater than 5.4 ng/mL Blood specimen (specimen) BLOOD SPECIMEN / Unknown 10/23/2016 15:34 EDT 10/23/2016 15:47 EDT Carl Flood MD CHEMISTRY & BLOOD GA S ORDERABLES Performing Organization Address [facility] de Phone Number [facility] [address] [place] [address] * LABORATORY INSPECTOR ANTIBODIES BY ALMA ROSA (10/23/2016 15:34 EDT) LABORATORY INSPECTOR Antibody 1.9 <20 Units 10/24/2016 12:54 EDT [facility] Comment: Negative: <20 Units Weak Positive: 20 - 39 Units Moderate Positive: 40 - 80 Units Strong Positive: >80 Units Results were obtained with the [employer] QUANTA Lite LABORATORY INSPECTOR ALMA ROSA. LABORATORY INSPECTOR Values obtained with different manufacturers' assay methods may not be used interchangeably. The magnitude of the reported IgG levels cannot be correlated to an endpoint titer. A positive result in the QUANTA Lite LABORATORY INSPECTOR ALMA ROSA indicates the presence of antibodies reactive with the LABORATORY INSPECTOR/Sm complex but cannot distinguish between anti-Sm and anti-LABORATORY INSPECTOR activity. Blood specimen (specimen) BLOOD SPECIMEN / Unknown 10/23/2016 15:34 EDT 10/23/2016 15:47 EDT Carl Flood MD IMMUNOLOGY AND SEROL OGY ORDERABLES Performing Organization Address [facility] Co de Phone Number [facility] [address] [place] [address] * SSA ANTIBODIES BY ALMA ROSA (10/23/2016 15:34 EDT) SSA Antibody 1.5 <20 Units 10/24/2016 12:53 EDT [facility] Comment: Negative: <20 Units [...] AND SEROL OGY ORDERABLES Performing Organization Address [facility] Co de Phone Number [facility] [address] [place] [address] * SSB ANTIBODIES BY ALMA ROSA (10/23/2016 15:34 EDT) SSB Antibody 2.6 <20 Units 10/24/2016 12:53 EDT [facility] Comment: Negative: <20 Units [...] AND SEROL OGY ORDERABLES Performing Organization Address [facility] Co de Phone Number [facility] [address] [place] [address] * (ABNORMAL) COMPREHENSIVE METABOLIC PANEL (CMP) (10/23/2016 15:34 EDT) Potassium 4.2 3.5 - 5.0 mEq/L 10/23/2016 16:30 [facility] Sodium 141 136 - 145 mEq/L 10/23/2016 16:30 [facility] Chloride 106 96 - 110 mEq/L 10/23/2016 16:30 [facility] CO2 20(L) 22 - 32 mEq/L 10/23/2016 16:30 [facility] Total Alkaline Phosphatase 70 38 - 126 U/L 10/23/2016 16:30 [facility] Bilirubin, Total <0.5 <1.4 mg/dl 10/24/19 17 16:30 [facility] AST 19 15 - 46 U/L 10/23/2016 16:30 [facility] ALT 21 <53 U/L 10/23/2016 16:30 [facility] Albumin 4.4 3.4 - 4.9 g/dl 10/23/2016 16:30 [facility] Total Protein 7.0 6.3 - 8.2 g/dl 10/23/2016 16:30 [facility] Creatinine 0.63 0.52 - 1.04 mg/dl 10/23/2016 16:30 [facility] GFR, Calculated 103 >60 ml/min/1.7 3m2 10/23/2016 16:30 [facility] Comment: eGFR calculated using CKD-EPI equation for non Americans. Multiply eGFR by 1.16 for Americans. BUN 10 10 - 26 mg/dl 10/23/2016 16:30 [facility] Calcium 9.7 8.5 - 10.5 mg/dl 10/23/2016 16:30 [facility] Calculated Calcium 9.4 8.5 - 10.5 mg/dl 10/23/2016 16:30 [facility] Glucose, Serum 97 70 - 100 mg/dl 10/23/2016 16:30 [facility] Fasting? No 10/23/2016 15:33 [facility] Blood specimen (specimen) BLOOD SPECIMEN / Unknown 10/23/2016 15:34 EDT 10/23/2016 15:47 EDT Carl Flood MD CHEMISTRY & BLOOD GA S ORDERABLES [facility] [address] [place] [address] * (ABNORMAL) HEMAGRAM AND DIFFERENTIAL (10/23/2016 15:34 EDT) WBC 8.86 4.0 - 12.4 K/cmm 10/23/2016 16:01 [facility] RBC 4.50 3.86 - 5.04 M/cmm 10/23/2016 16:01 [facility] Hemoglobin 14.5 11.6 - 15.2 gm/dl 10/23/2016 16:01 [facility] HCT 41.2 34.9 - 44.4 % 10/23/2016 16:01 [facility] MCV 92 81 - 98 fl 10/23/2016 16:01 [facility] MCH 32.2 26.7 - 33.3 pg 10/23/2016 16:01 [facility] MCHC 35.2 32.1 - 35.9 gm/dl 10/23/2016 16:01 [facility] RDW-CV 11.9 <14.7 % 10/23/2016 16:01 [facility] RDW-SD 40.0 <50.4 fl 10/23/2016 16:01 [facility] PLT 320 141 - 377 K/cmm 10/23/2016 16:01 [facility] MPV 8.9(L) 9.5 - 12.7 fl 10/23/2016 16:01 [facility] % Neutrophils 49.8 % 10/23/2016 16:01 [facility] % Lymphocytes 39.7 % 10/23/2016 16:01 [facility] % Monocytes 6.2 % 10/23/2016 16:01 [facility] % Eosinophils 3.3 % 10/23/2016 16:01 [facility] % Basophils 0.7 % 10/23/2016 16:01 [facility] % Immature Grans 0.3 % 10/23/2016 16:01 [facility] ABS Neutrophils 4.41 2.20 - 8.85 K/cmm 10/23/2016 16:01 [facility] ABS Lymphs 3.52(H) 1.09 - 3.30 K/cm 10/23/2016 16:01 [facility] ABS Monocytes 0.55 0.1 - 0.8 K/cm 10/23/2016 16:01 [facility] ABS Eosinophils 0.29 0.03 - 0.61 K/cmm 10/23/2016 16:01 [facility] ABS Basophils 0.06 0.01 - 0.11 K/cmm 10/23/2016 16:01 [facility] ABS Immature Grans 0.03 0 - 0.06 K/cmm 10/23/2016 16:01 [facility] Type of Diff: Automated 10/23/2016 16:01 [facility] Blood specimen (specimen) BLOOD SPECIMEN / Unknown 10/23/2016 15:34 EDT 10/23/2016 15:47 EDT Carl Flood MD PACKAGES & DNA PROBE ORDERABLES [facility] [address] [place] [address] * LYME AB (10/23/2016 15:34 EDT) Lyme AB Negative 10/24/2016 13:24 T [facility] Comment:Reference Range: Neg ative Blood specimen (specimen) BLOOD SPECIMEN / Unknown 10/23/2016 15:34 EDT 10/23/2016 15:47 EDT Carl Singhu MD IMMUNOLOGY AND SEROL OGY ORDERABLES Performing Organization Address [facility] Co de Phone Number [facility] [address] [place] [address] * (ABNORMAL) C4 COMPLEMENT (10/23/2016 15:34 EDT) C4 Complement 40(H) 16 - 38 mg/dl 10/24/2016 10:34 EDT [facility] Blood specimen (specimen) BLOOD SPECIMEN / Unknown 10/23/2016 15:34 EDT 10/23/2016 15:47 EDT Narrative Authorizing Provider Result Charly Flood MD CHEMISTRY & BLOOD GA S ORDERABLES Performing Organization Address [facility] de Phone Number [facility] [address] [place] [address] * (ABNORMAL) ARTHRITIS 1 (10/23/2016 15:34 EDT) Pathologist [facility] Rheumatoid Factor <20 <20 IU/ml 017 10:34 EDT [facility] ADRIANA Interpretation Positive(A) Negative 10/24/2016 15:04 EDT [facility] Comment: Results were obtained with the [employer] NOVA Lite HEp-2 ADRIANA kit by indirect immunofluorescence. ADRIANA Titer Pattern 1:320 Speckled 10/24/2016 12:46 EDT [facility] Blood specimen (specimen) BLOOD SPECIMEN / Unknown 10/23/2016 15:34 EDT 10/23/2016 15:47 EDT Narrative Authorizing Provider Result Chalry Flood MD IMMUNOLOGY AND SEROL OGY ORDERABLES Performing Organization Address [facility] Co de Phone Number [facility] [address] [place] [address] * SM (AGEE) ANTIBODY (10/23/2016 15:34 EDT) Sm (Agee) Antibody 0.9 <20 Units 10/24/2016 12:53 EDT [facility] Comment: Negative: <20 Units [...] 10/23/2016 15:34 EDT 10/23/2016 15:47 EDT Carl lFood MD IMMUNOLOGY AND SEROL OGArtemio ORDERABLES Performing Organization Address [facility] Co de Phone Number [facility] [address] [place] [address] * ANTI DNA (DOUBLE STRAND) (10/23/2016 15:34 EDT) Anti DNA (DS) <12.3 <30 IU/mL 10/24/2016 13:58 EDT [facility] Comment:Results were obtaine d with the [employer] QUANTA Lite dsDNA SC ALMA ROSA assay. Blood specimen (specimen) BLOOD SPECIMEN / Unknown 10/23/2016 15:34 EDT 10/23/2016 15:47 EDT Carl Flood MD IMMUNOLOGY AND SEROL OGArtemio ORDERABLES Performing Organization Address [facility] Co de Phone Number [facility] [address] [place] [address] documented in this encounter Visit Diagnoses Diagnosis Positive ADRIANA (antinuclear antibody) Other and unspecified nonspecific immunological findings Paresthesia of both feet documented in this encounter Care Teams Concrete Smoother Relationship Specialty Start Date End Date None, Provider PCP - General 10/23/16 12/05/16 documented as of this encounter
--- OUTSIDE RECORDS SUMMARY | 2024-01-04 14:50 | XMS_ITS | Encounter Summary ---
Author Organization [facility] Address [address] [place] [address] Care Team Providers Care Pickling Grader Name Role Phone Porsha Louise ND Primary Care Provider Malina matamoros Reason for Visit * Reason Onset Date Comments Update 05/25/2017 Encounter Details Date Type Department Care Team ([facility] st Contact Info) Description 05/25/2017 Telephone [facility] Spine Program - [address] [place] [address] Nick Gomez PA-C [facility] [place] [address] Update Social History Tobacco Use [...] - 05/25/2017 1602 EST Patient is in [place] and went to a new doctor for her back symptoms, she received additional information she would like to share with us, see if Jason has anything to put towards the additional information. She is scheduled for an injection in July that she will most likely keep at this point, she is not moving to [place] till January so she would like to [...] 15:00 EST Office Visit [facility] Neurology - [address] [phone] Robby Abraham MD [address] [place] [address], [address] [place] [phone] documented as of this encounter Visit Diagnoses Not on filedocumented in this encounter Care Teams Pickling Grader Relationship Specialty Start Date [place] [address] PCP - General 02/06/17 08/28/17 documented as of this encounter
--- OUTSIDE RECORDS SUMMARY | 2024-01-04 14:50 | XMS_ITS | Encounter Summary ---
Author Organization [facility] Address [address] [place] [address] Care Team Providers Care Director Distribution Name Role Phone Suleiman Zambrano PA-C Primary Care Provider + Reason for Visit * Reason Onset Date Comments Appointment Related 09/14/201609/23 Encounter Details Date Type Department Care Team ([facility] Contact Info) Description 09/14/2016 Telephone [facility] Rheumatology & Immunology - [address] [phone] Carl Flood Chi, MD [address] [place] [address], [address] [place] [address] Appointment Related (09/23) Social History [...] Medicaid referral form to be sent to [facility], needs to also say she should be her by 1 pm. Fax is [phone]. They did received something from us but not what they needed.Call her to confirm Hemal Gallegos 09/14/2016 16:24 documented in this encounter Plan of Treatment Upcoming Encounters Date Type Department Care Team (Late st Contact Info) Description 04/21/2024 15:00 EST Office Visit [facility] Neurology - [address] [place] [address] [place], [place] [address] Robby Abraham MD [address] [place] [address], [address] [place] [phone] documented as of this encounter Visit Diagnoses Not on filedocumented in this encounter Care Teams Director Distribution Relationship Specialty Start Date End Date Suleiman Zambrano PA-C [address] [place] [address] PCP - General 04/05/12 10/22/16 documented as of this encounter
--- OUTSIDE RECORDS SUMMARY | 2024-01-04 14:50 | XMS_ITS | Encounter Summary ---
Author Organization [facility] Address [address] [place] [address] Care Team Providers Care Garage Manager Name Role Phone Suleiman Zambrano PA-C Primary Care Provider + Reason for Visit * Reason Comments Back Pain Encounter Details Date Type Department Care Team ([facility] st Contact Info) Description 04/30/2012 11:30 EST Office Visit [facility] Spine Program - [address] [place] [address] Nick Gomez PA-C [address] [place] [address] [place] [address] Low back pain (Primary Dx) [...] [facility] Neurology - [address] [place] [address] [place] [address] Robby Abraham MD [address] [place] [address], [address] [place] [phone] documented as of this encounter Visit Diagnoses Diagnosis Low back pain- Primary Lumbago documented in this encounter Care Teams Garage Manager Relationship Specialty Start Date End Date Suleiman Zambrano PA-C [address] [place] [address] PCP - General 04/05/12 10/22/16 documented as of this encounter
--- OUTSIDE RECORDS SUMMARY | 2024-01-04 14:50 | XMS_ITS | Encounter Summary ---
Author Organization [facility] Address [address] [place] [address] Care Team Providers Care Sales Mgr Name Role Phone Odalys Hanley MD Primary Care Provider [phone] Encounter Details Date Type Department Care Team ([facility] Contact Info) Description 02/02/2017 Orders Only [facility] Spine Program - [address] [address] Nick Gomez PA-C [address] [place] [address] [place] [address] Low back pain, unspecified back [...] Department Care Team ([facility] Contact Info) Description 04/21/2024 15:00 EST Office Visit [facility] Neurology - [address] [address] Robby Abraham MD [address] [place] [address], [address] [place] [phone] documented as of this encounter Visit Diagnoses Diagnosis Low back pain, unspecified back pain laterality, unspecified chronicity, with sciatica presence unspecified- Primary documented in this encounter Care Teams Sales Mgr Relationship Specialty Start Date End Date Odalys Hanley MD PCP - General 12/06/16 02/05/17 documented as of this encounter
--- OUTSIDE RECORDS SUMMARY | 2024-01-04 14:50 | XMS_ITS | Encounter Summary ---
Author Organization [facility] Address [address] [place] [address] Care Team Providers Care Transmission Supervisor Name Role Phone Ca Leggett MD Primary Care Provider Unavailable Encounter Details Date Type Department Care Team ([facility] Contact Info) Description 12/01/2010 Results Only [facility] Laboratory Services - [facility] [address] [place], [place] [phone] Claude Marti MD [address] [place] [address],[address] [place] [address] Social History Tobacco Use Types Packs/Day Years Used Date Smoking Tobacco: Never Assessed Sex and Gender Information Value Date Recorded Sex Assigned at Not on file Gender Identity Female 05/16/2019 9:18 EST Sexual Orientation Not on file documented as of this encounter Plan of Treatment Upcoming Encounters Date Type Department Care Team ([facility] Contact Info) Description 04/21/2024 15:00 EST Office Visit [facility] Neurology - [address] [place] [address] [place] [phone] Robby Abraham MD [address] [place] [address], [address] [place] [phone] documented as of this encounter Procedures Procedure [...] ? MEJIA, AYDEE ? Accession #: ? [id number] ? : ? 1965 (Age: 45) ??F [...] Gross Description: ? Received in formalin labelled Meija, Aydee and endometrial curettings is a 3.0 x 2.5 x 0.5 cm aggregate of pink-thomas and thomas-red, focally hemorrhagic soft tissue fragments. ??The specimen is entirely submitted as (A1) and (A2). ??(L. ? Nba)/[facility] ? End of Report ? [facility] 12/01/2010 12/02/2010 8:5 9 EDT Claude Marti MD PATHOLOGY ORDERABLES [facility] [address] [place] [address] documented in this encounter Visit Diagnoses Not on filedocumented in this encounter Care Teams Transmission Supervisor Relationship Specialty Start Date End Date Ca Leggett MD PCP - General 09/07/08 12/04/10 documented as of this encounter
--- OUTSIDE RECORDS SUMMARY | 2024-01-04 14:50 | XMS_ITS | Encounter Summary ---
Author Organization [facility] Address [address] [place] [address] Care Team Providers Care Locker Room Clerk Name Role Phone Porsha Louise ND Primary Care Provider Malina matamoros Reason for Visit * Reason Onset Date Comments Discuss Test Results 03/23/2017 xray done a month ago Encounter Details Date Type Department Care Team ([facility] Contact Info) Description 03/23/2017 Telephone [facility] Rheumatology & Immunology - [address] [address] Carl Flood Chi, MD [address] [place] [address], [address] [place] [address] Discuss Test Results (xray done [...] and letter to her physical Therapist at [facility] in [place], [place]. * Telephone Encounter - Tiffany Brewster [...] Visit [facility] Neurology - [address] [phone] Robby Abraham MD [address] [place] [address], [address] [place] [phone] documented as of this encounter Visit Diagnoses Not on filedocumented in this encounter Care Teams Locker Room Clerk Relationship Specialty Start Date [place] [address] PCP - General 02/06/17 08/28/17 documented as of this encounter
--- OUTSIDE RECORDS SUMMARY | 2024-01-04 14:50 | XMS_ITS | Encounter Summary ---
Author Organization [facility] Address [address] [place] [address] Care Team Providers Care Virtualization Consultant Name Role Phone Unavailable Primary Care Provider Unavailabl e Encounter Details Date Type Department Care Team (Latest Contact Info) Description 04/21/1999 10:57 EST - 04/21/1999 11:59 EST Hospital Encounter [facility] [address] [place] [address] Virgilio Israel MD Discharge Disposition: Auto Discharge [...] [facility] - S [address] [address] Robby Abraham MD [address] [place] [address] [address] [place] [phone] documented as of this encounter Procedures Procedure [...] (A). ? Received in Hollande's fixative labelled Nat and esophagus ? are three, thomas-gan, irregular, 0.2 x 0.2 x 0.2 cm, soft tissue ? fragments. ??The specimen is entirely submitted as (B). ??(M. ? Vipin)/jaja ? End of Report [facility] 04/21/1999 13:5 1 EST 04/21/1999 13:52 EST Virgilio Israel MD PATHOLOGY ORDERABLES [facility] [address] [place] [address] documented in this encounter Visit Diagnoses Not on filedocumented in this encounter
--- OUTSIDE RECORDS SUMMARY | 2024-01-04 14:50 | XMS_ITS | Encounter Summary ---
Author Organization [facility] Address [address] [place] [address] Care Team Providers Care Watch Crystal Cutter Name Role Phone Unavailable Primary Care Provider Unavailabl e Encounter Details Date Type Department Care Team (Latest Contact Info) Description 03/08/1999 22:00 EST Hospital Encounter [facility] - Other [address] [place] [address] Virgilio Israel MD Unknown, ProviderMD Discharge Disposition: [...] Info) Description 04/21/2024 15:00 EST Office Visit [facility] Neurology - [address] [place] [address] Robby Abraham MD [address] [place] [address] [address] [place] [address] documented as of this encounter Procedures Procedure [...] & PF4 ORD ERABLES Performing Organization Address [facility] de Phone Number [facility] [address] [place] [address] * PROTIME (03/08/1999 15:00 EST) Pro Time [...] & PF4 ORD ERABLES Performing Organization Address [facility] de Phone Number [facility] [address] [place] [address] * LIVER FUNCTION TESTS (03/08/1999 15:00 EST) [...] BLOOD GA S ORDERABLES Performing Organization Address [facility] de Phone Number [facility] [address] [place] [address] * LIPASE (03/08/1999 15:00 EST) Pathologist [facility] Lipase 115 0 - 210 U/L [facility] 03/08/1999 15:0 0 EST 03/08/1999 17:59 EST Virgilio Israel MD CHEMISTRY & BLOOD GA S ORDERABLES Performing Organization Address [facility] de Phone Number [facility] [address] [place] [address] * GGT (03/08/1999 15:00 EST) Pathologist [facility] GGT 41 12 - 43 U/L [facility] 03/08/1999 15:0 0 EST 03/08/1999 17:59 EST Virgilio Israel MD CHEMISTRY & BLOOD GA S ORDERABLES Performing Organization Address [facility] Co de Phone Number [facility] [address] [place] [address] * (ABNORMAL) HEMAGRAM (03/08/1999 15:00 EST) WBC [...] PF4 ORD ERABLES [facility] [address] [place] [address] * AMYLASE (03/08/1999 15:00 EST) Amylase 52 30 - 110 U/L [facility] 03/08/1999 15:0 0 EST 03/08/1999 17:59 EST Virgilio Israel MD CHEMISTRY & BLOOD GA S ORDERABLES [facility] [address] [place] [address] documented in this encounter Visit Diagnoses Not on filedocumented in this encounter
[2024-01-04 14:56] VITALS: BP 128/78; PULSE 94; RESP 14; TEMP 36.1; O2SAT 95
--- NOTE | 2024-01-04 15:15 | DI.US_ITS ---
Exam(s) US LOWER EXTREMITY VENOUS LT EXAM: US LOWER EXTREMITY VENOUS LT CLINICAL HISTORY: pain calf TECHNIQUE: Grayscale, color, and doppler imaging of the deep venous system of the left lower extremi ty was performed. COMPARISON: US US LOWER EXTREMITY VENOUS LT from 03/24/2021 FINDINGS: There is no evidence of intraluminal thrombus and there is normal compression and augmentation demons trated within the common femoral vein, femoral vein, and popliteal vein. In the ipsilateral calf the interrogated veins also exhibit normal compression/ augmentation properti es. The ipsilateral saphenofemoral junction is patent. IMPRESSION: 1. No evidence of DVT in the left lower extremity. DATA REPOSITORY:
--- NOTE | 2024-01-04 15:15 | DI.RAD_ITS ---
Exam(s) XR TIB/FIB LT EXAM: XR TIB/FIB LT CLINICAL HISTORY: pain proximal tib/fib. TECHNIQUE: 2D digital imaging was performed. COMPARISON: No exams were available for comparison FINDINGS: Two views-AP and lateral No evidence of fracture of the tibia and fibula. Bone density normal. No osseous lesions. No radio paque foreign bodies. Tibial plateau appears unremarkable. Nor widening the ankle mortise. IMPRESSION: No significant osseous findings in the tibia and fibula. DATA REPOSITORY: RADIATION DOSE DELIVERED:
--- NOTE | 2024-01-04 15:51 | ED.GENADUL_ITS ---
Discharge Plan Disposition Patient Disposition: Home Condition: Stable Discharge Details Clinical Impression: Paresthesia Primary Care Provider: Jacey Amador ED Provider: Talha Deal Home Meds and New Rx's Prescriptions: No Action phentermine 15 mg capsule 15 mg PO DAILY Rx Instructions: must administer 2 hours after breakfast gabapentin 600 mg tablet 1,200 mg PO BID alpha lipoic acid 600 mg capsule 600 mg PO DAILY omeprazole 40 mg capsule,delayed release(DR/EC) 40 mg PO BID valacyclovir 1 gram tablet 1,000 mg PO DAILY PRN vitamin E (dl, acetate) 180 mg (400 unit) capsule 180 mg PO DAILY vitamin B complex-folic acid [Super B Maxi Complex] 0.4 mg tablet 1 tab PO DAILY prednisone 5 mg tablet 5 mg PO DAILY Qty: 30 0RF Rx Instructions: TAKE 2 TABLETS PO DAILY FOR 10 DAYS, THEN TAKE 1 TABLET PO FOR 10 DAYS sumatriptan succinate 50 mg Tablet 50 mg PO PRN PRN albuterol 90 mcg/actuation Aerosol 90 mcg INHALATION Q6H PRN PRN cyclobenzaprine 10 mg tablet 10 mg PO TID PRNQty: 20 0RF turmeric 400 mg capsule 800 mg PO DAILY flaxseed oil 1,000 mg capsule 1,000 mg PO DAILY ascorbic acid (vitamin C) [Vitamin C With Columba Hips] 500 mg tablet 1 g PO DAILY lutein 40 mg capsule 40 mg PO DAILY Rx Instructions: administer with meals magnesium 250 mg tablet 500 mg PO DAILY omega 3-qgv-xvr-fish oil [Fish Oil] 1,000 mg (120 mg-180 mg) capsule 2 cap PO DAILY red yeast rice 600 mg tablet 600 mg PO DAILY Rx Instructions: give with meal/snack Discharge Instructions Instructions: Paresthesia (DC) Additional Instructions: Please follow-up with orthopedic surgical team as well as your primary care physician. Discussobtaining EMG and/or other nerve conduction study testing. Discharge Data Discharge Date/Time-TO BE ENTERED AT DEPARTURE: 01/04/24 19:48 HPI <JAY Oakley - Last Filed: 01/06/24 17:41> General Date/Time Provider Initiated Documentation: 01/04/24 15:15 . HPI Narrative: This 58 yo female presenting with left calf swelling and tenderness. States that she has been in bed and her left lateral leg. Denies any fever chills or new trauma. States this started approximately 2 years ago when she was laying in an MRI for 2 hours at an outside facility. She states that she has been under the care of multiple providers and they have been unable to diagnose her with symptoms. She states she has been wearing a boot and followed up with physical therapy without any results. She presents today secondary to report of difficulty moving her toes with changes in her musculature on the lateral side of her leg. Denies any back pain, fever, chills, changes in bowel or bladder strength or sensation change to her lower extremities. Denies any groin numbness. Related Data Home Medications ?Medication ?Instructions ?Recorded ?Confirmed cyclobenzaprine 10 mg tablet 10 mg PO TID PRN #20 tabs 02/25/21 01/04/24 albuterol 90 mcg/actuation aerosol 90 mcg inhalation Q6H PRN PRN 03/24/21 01/04/24 inhaler sumatriptan succinate 50 mg tablet 50 mg PO PRN PRN 03/24/21 01/04/24 phentermine 15 mg capsule 15 mg PO DAILY 06/12/22 01/04/24 gabapentin 600 mg tablet 1,200 mg PO BID 10/03/22 01/04/24 alpha lipoic acid 600 mg capsule 600 mg PO DAILY 08/14/23 01/04/24 omeprazole 40 mg capsule,delayed 40 mg PO BID 08/14/23 01/04/24 release valacyclovir 1 gram tablet 1,000 mg PO DAILY PRN 08/14/23 01/04/24 vitamin B complex-folic acid 0.4 1 tab PO DAILY 08/14/23 01/04/24 mg tablet (Super B Maxi Complex) vitamin E (dl, acetate) 180 mg 180 mg PO DAILY 08/14/23 01/04/24 (400 unit) capsule prednisone 5 mg tablet 5 mg PO DAILY #30 tabs 12/19/23 01/04/24 ascorbic acid (vitamin C) 500 mg 1 g PO DAILY 01/04/24 01/04/24 tablet (Vitamin C With Columba Hips) flaxseed oil 1,000 mg capsule 1,000 mg PO DAILY 01/04/24 01/04/24 lutein 40 mg capsule 40 mg PO DAILY 01/04/24 01/04/24 magnesium 250 mg tablet 500 mg PO DAILY 01/04/24 01/04/24 omega 7-pjx-bsb-fish oil 1,000 mg 2 cap PO DAILY 01/04/24 01/04/24 (120 mg-180 mg) capsule (Fish Oil) red yeast rice 600 mg tablet 600 mg PO DAILY 01/04/24 01/04/24 turmeric 400 mg capsule 800 mg PO DAILY 01/04/24 01/04/24 Previous Rx's ?Medication ?Instructions ?Recorded cyclobenzaprine 10 mg tablet 10 mg PO TID PRN #20 tabs 02/25/21 prednisone 5 mg tablet 5 mg PO DAILY #30 tabs 12/19/23 Allergies Allergy/AdvReac Type Severity Reaction Status Date / Time ketorolac (From Toradol) Allergy Unknown Hand Unverified 01/04/24 15:02 Swelling duloxetine (From Cymbalta) Allergy Skin Rash Unverified 01/04/24 15:02 Influenza Virus Vaccines Allergy Swelling/Ed Unverified 01/04/24 15:02 tashi metoprolol Allergy Itching Unverified 01/04/24 15:02 Penicillins Allergy Swelling/Ed Unverified 01/04/24 15:02 tashi phenytoin (From Dilantin) Allergy Hives Unverified 01/04/24 15:02 codeine AdvReac Intermediate Other (See Verified 01/04/24 15:02 Comment) naproxen (From Naprosyn) AdvReac Intermediate Swelling/Ed Verified 01/04/24 15:02 tashi amitriptyline AdvReac Mild Skin Rash Verified 01/04/24 15:02 metoclopramide AdvReac Mild Skin Rash Verified 01/04/24 15:02 aspirin AdvReac Nausea Verified 01/04/24 15:02 NSAIDS (Non-Steroidal AdvReac gi bleed Unverified 01/04/24 15:02 Anti-Inflamma General Stated Complaint: Orthopedic SIDNEY: 4 Exam <JAY Oakley - Last Filed: 01/06/24 17:41> Narrative Exam Narrative: Alert and oriented 58-year-old female in no acute distress, sensation intact bilateral lower extremities, distal pulses intact bilateral lower extremities, no lumbar spine tenderness, tenderness with palpation to left lateral thigh, strength intact distally to bilateral lower extremities, no visible evidence of trauma Course <JAY Oakley - Last Filed: 01/06/24 17:41> Vital Signs Vital signs: Vital Signs Temperature 36.1 C L 01/04/24 14:56 Pulse 94 H 01/04/24 14:56 Respiratory Rate 14 01/04/24 14:56 Blood Pressure 128/78 01/04/24 14:56 Pulse Oximetry 95 01/04/24 14:56 Temperature 36.1 C L 01/04/24 14:56 Temperature Source Oral 01/04/24 14:56 Pulse 94 H 01/04/24 14:56 Respiratory Rate 14 01/04/24 14:56 Blood Pressure 128/78 01/04/24 14:56 Blood Pressure Position Sitting 01/04/24 14:56 Pulse Oximetry 95 01/04/24 14:56 Oxygen Delivery Method Room Air 01/04/24 14:56 Oxygen Flow Rate 0 01/04/24 14:56 Pain Level 2 01/04/24 14:56 Medical Decision Making <JAY Oakley - Last Filed: 01/06/24 17:41> This 58-year-old female presents with complaint of left lateral calf pain. Reproducible tenderness on exam with reassuring neurological assessment. No evidence of cauda equina syndrome, suspect part nerve injury to left lateral thigh. Given calf tenderness, I will order ultrasound and x-ray. I also ordered labs to be sure there are no electrolyte abnormalities. Care will be transitioned oncoming provider.. Signout received from day team 19: 34 ultrasound x-ray and labs unremarkable. Patient endorses 2 years of chronic left ankle paresthesia as well as subjective weakness to her left foot and toes that has been progressive over 2 years, patient ambulates with a cane, on my examination patient has 5 out of 5 strength bilateral lower extremities including toes dorsiflexion and plantarflexion of foot and ankle sensation intact to light touch bilaterally equal, warm well-perfused strong DP pulse soft compartments no external signs of trauma. Patient endorses the appearance of subjective atrophy of her left anterior monet over the last 2 years. Patient endorses symptoms of neuropathy endorses an elevated A1c and a prior lumbar spine injury. Patient has no evidence of cauda equina no evidence of spinal cord trauma patient has no evidence of vascular insult or acute neurologic process. Consider chronic progressive neuropathy versus lumbar nerve impingement chronic in nature. Low suspicion for demyelinating condition infectious process or central neurologic process. Patient has follow-up with orthopedic team also is following up with primary care physician when they return from vacation. I suggested that patient obtain EMG another nerve conduction study testing as an outpatient. Given home care instruction return precaution Quality:SDOH Health Related Social Needs: No Data to Display <Talha Deal MD - Last Filed: 01/04/24 19:37> Signout received from day team 19: 34 ultrasound x-ray and labs unremarkable. Patient endorses 2 years of chronic left ankle paresthesia as well as subjective weakness to her left foot and toes that has been progressive over 2 years, patient ambulates with a cane, on my examination patient has 5 out of 5 strength bilateral lower extremities including toes dorsiflexion and plantarflexion of foot and ankle sensation intact to light touch bilaterally equal, warm well-perfused strong DP pulse soft compartments no external signs of trauma. Patient endorses the appearance of subjective atrophy of her left anterior monet over the last 2 years. Patient endorses symptoms of neuropathy endorses an elevated A1c and a prior lumbar s pine injury. Patient has no evidence of cauda equina no evidence of spinal cord trauma patient has no evidence of vascular insult or acute neurologic process. Consider chronic progressive neuropathy versus lumbar nerve impingement chronic in nature. Low suspicion for demyelinating condition infectious process or central neurologic process. Patient has follow-up with orthopedic team also is following up with primary care physician when they return from vacation. I suggested that patient obtain EMG another nerve conduction study testing as an outpatient. Given home care instruction return precaution PFSH <JAY Oakley - Last Filed: 01/06/24 17:41> All Active Problems (Updated 01/04/24 @ 19:37 by Talha Deal MD) Paresthesia (Acute) Mass of right thigh (Acute) Bilateral hip joint arthritis (Acute) Trochanteric bursitis, left hip (Acute) Trochanteric bursitis, right hip (Acute) Wrist arthropathy (Acute) De Quervain's tenosynovitis, left (Acute) Osteoarthritis of carpometacarpal (CMC) joint of left thumb (Acute) Peripheral neuropathy (Acute) Nasal vestibulitis (Acute) Change in voice (Acute) Nasal mucosa dry (Acute) Lumbar post-laminectomy syndrome (Acute) Trochanteric bursitis of both hips (Acute) Atypical chest pain (Acute) PATRICIA (obstructive sleep apnea) (Chronic) Screening for colon cancer (Acute) Medical History Agoraphobia Chronic low back pain Cigarette smoker Cluster headaches Depression Diverticulitis Edema Encounter to discuss test results Gait abnormality GERD (gastroesophageal reflux disease) Glaucoma Herpes stomatitis Hip pain Hoarseness Hyperlipidemia Itchy skin Migraine headache Obesity Pain of left calf Peripheral neuropathy Sciatica Somatization disorder Social History Smoking/Tobacco Use Status: Current every day Tobacco Type: cigarettes Smoking risk assessment performed?: Yes Alcohol Intake: never Substance use type: does not use Do you feel safe at home: Yes Do you feel safe in your relationship?: Yes Sign Out <JAY Oakley - Last Filed: 01/06/24 17:41> Sign Out Data: Sign Out Comment: pending labs and imaging Last updated by Jazlyn Bryan PA at 01/04/24 16:26
[2024-01-04 17:26] LABS: Abs Immature Grans 0.04 10^3/uL (0.0-0.06); Absolute Basophil Count 0.07 10^3/uL (0.0-0.2); Absolute Eosinophil Count 0.21 10^3/uL (0.0-0.7); Absolute Lymphocyte Count 3.25 10^3/uL (1.2-3.4); Absolute Monocyte Count 0.62 10^3/uL (0.1-0.8); Absolute Neutrophil Count 4.81 10^3/uL (1.2-6.7); Basophils % 0.8 %; Eosinophils % 2.3 %; HCT 37.8 % (36.0-46.0); Immature Grans % 0.4 %; Lymphocytes % 36.1 %; MCH 28.3 pg (27.0-33.0); MCHC 31.7 % (32.0-36.0); MCV 89 fL (80-95); MPV 9.1 fL (8.0-11.0); Monocytes % 6.9 %; Neutrophils % 53.5 %; Platelet Count 402 10^3/uL (130-400); RBC 4.24 10^6/uL (3.93-5.22); RDW 14.1 % (11.7-14.6); RDW-SD 45.4 fL
[2024-01-04 17:44] LABS: ALT 24 U/L (14-59); AST 20 U/L (15-37); Albumin 4.1 g/dL (3.4-5.0); Alkaline Phosphatase 85 U/L (46-116); Anion Gap 9.4 mmol/L (3-11); BUN 13 mg/dL (7-18); Bilirubin, Total 0.41 mg/dL (0.2-1.0); CO2 27.6 mmol/L (21.0-32.0); CREATININE 0.8 mg/dL (0.55-1.02); Calcium 9.9 mg/dL (8.5-10.1); Chloride 101 mmol/L (98-107); Creatine Kinase 79 U/L (26-192); Glucose 101 mg/dL (74-106); Magnesium 1.9 mg/dL (1.8-2.4); Potassium 3.8 mmol/L (3.5-5.1); Sodium 138 mmol/L (136-145); Total Protein 7.9 g/dL (6.4-8.2)
[2024-01-04 18:36] VITALS: BP 122/74; PULSE 72
[2024-01-04 19:48] VITALS: BP 125/68; PULSE 72; RESP 16; TEMP 36.9; O2SAT 98
== END 2024-01-04 19:48 | disposition home or self-care (01) ==
PROVIDERS: Physician Assistant; Emergency Provider Emergency Medicine; PCP Nurse Practitioner Family
DX: R20.2 Paresthesia of skin (principal); M79.605 Pain in left leg
CPT/HCPCS: 36415; 80053; 82550; 99285; 73590; 83735; 85025; 93971; 99284

== ENCOUNTER → 2024-01-21 14:07 | Outpatient (BNVA) | payer OTHER, MEDICAID, SELFPAY | PROVIDERS: PCP Nurse Practitioner Family; Referring Provider Nurse Practitioner Family; Visit Provider Student in an Organized Health Care Education/Training Program | DX: M70.61 Trochanteric bursitis, right hip (principal); M70.62 Trochanteric bursitis, left hip | CPT/HCPCS: 20610; J1010 ==

== ENCOUNTER → 2024-02-11 10:10 | Outpatient (BNVA) | payer OTHER, MEDICAID, SELFPAY | PROVIDERS: PCP Nurse Practitioner Family; Referring Provider Nurse Practitioner Family | DX: M70.62 Trochanteric bursitis, left hip (principal) | CPT/HCPCS: 20610; J1010 ==

== ENCOUNTER 2024-02-13 16:32 | Outpatient (REF) | payer OTHER, MEDICAID, SELFPAY ==
--- OUTSIDE RECORDS SUMMARY | 2024-02-13 16:34 | XMS_ITS | Encounter Summary ---
Author Organization [facility] [place] [address] Care Team Providers Care Account Relationship Manager Name Role Phone Glenys Hernandez CHIMNEY BUILDER Primary Care Provider [phone] Reason for Visit * Reason Onset Date Comments Reminder Appointment 11/28/2022 Encounter Details Date Type Department Care Team ([facility] Contact Info) Description 11/28/2022 Telephone Neurology at [facility] [place] [id number] Pantera Welch MD [facility] [place] [address] Reminder Appointment Social History Tobacco Use Types [...] on file documented as of this encounter Goals Goal [...] on filedocumented in this encounter Care Teams Account Relationship Manager Relationship Specialty Start Date End Date Glenys Hernandez APRN [address] [place] [address] PCP - General Family Medicine 09/26/21 12/28/22 documented as of this encounter
--- OUTSIDE RECORDS SUMMARY | 2024-02-13 16:34 | XMS_ITS | Encounter Summary ---
[place] [address] Care Team Providers Care Fruit Or Nut Farmer Name Role Phone MaryGlenys JL Primary Care Provider [phone] Reason for Referral * Consultation (Routine) - Closed Specialty Diagnoses / Procedures Referred By Contac t Referred To Contact [facility] Diagnoses Other cervical disc disorders at C6-C7 level Thoracic disc herniation Thoracic back pain, unspecified back pain laterality, unspecified chronicity Cervical/thoracic disc protrusion/CT (t) 09/18/[address] (c) 11/08/22 @ [facility]/surgical vs [facility] FVE SLIP BRIDGE OPERATOR Jacey Amador APRN [address] [place] [address] [facility] [place] [address] Referral ID Status Reason Start Date Expiration Date V isits Requested Visits Authorized [id number] Closed Consult, Test & Treat PCP Updated and/or Approved 12/04/2022 12/04/2023 1 1 Encounter Details Date Type Department Care Team (Latest Contact Info) Description 12/04/2022 Transcribe Orders eDH Incoming Referrals [phone] Jacey Amador APRN [address] [place] [id number] Other cervical disc disorders at C6-C7 level; [...] as of this encounter Plan of Treatment Scheduled Referrals [...] chronicity documented in this encounter Care Teams Fruit Or Nut Farmer Relationship Specialty Start Date End Date Glenys Hernandez APRN [address] [place] [address] PCP - General Family Medicine 09/26/21 12/28/22 documented as of this encounter
--- OUTSIDE RECORDS SUMMARY | 2024-02-13 16:34 | XMS_ITS | Encounter Summary ---
[place] [address] Care Team Providers Care Information Security Associate Name Role Phone MaryGlenys JL Primary Care Provider Reason for Referral * Consultation (Routine) - Closed Specialty Diagnoses / Procedures Referred By Mayda t Referred To Contact Neurology Diagnoses Migraine without status migrainosus, not intractable, unspecified migraine type Medication management contract agreement Jacey Amador APRN [address] [place] [address] [facility] Neurology [address] [place] [id number] Referral ID Status Reason Start Date Expiration Date V isits Requested Visits Authorized [id number] Closed Consult, Test & Treat PCP Updated and/or Approved 10/17/2022 10/17/2023 12 12 Encounter Details Date Type Department Care Team (Latest Contact Info) Description 10/17/2022 Transcribe Orders eDH Incoming Referrals [phone] Jacey Amador APRN [address] [place], [place] [id number] Migraine without status migrainosus, not intractable, unspecified [...] children documented in this encounter Care Teams Information Security Associate Relationship Specialty Start Date End Date Glenys Hernandez, JL [address] [place] [address] PCP - General Family Medicine 09/26/21 12/28/22 documented as of this encounter
--- OUTSIDE RECORDS SUMMARY | 2024-02-13 16:34 | XMS_ITS | Encounter Summary ---
[place] [address] Care Team Providers Care Manager Engine Name Role Phone Justin Juarez MD Primary Care Provider [phone] Encounter Details Date Type Department Care Team ([facility] st Contact Info) Description 05/24/2023 Telephone [facility] [place] [phone] Porsha Cherry Social History Tobacco Use Types [...] Porsha Cherry - 05/24/2023 9:29 AM EST [facility] 05/24/23 in regards to scheduling a follow up with Minnie Muñoz APRN. Please call [phone]. Note: Follow up to MRI 05/17/23 in [...] filedocumented in this encounter Care Teams Manager Engine Relationship Specialty Start Date End Date Justin Juarez MD PCP - General Family Medicine 12/29/22 documented as of this encounter
--- OUTSIDE RECORDS SUMMARY | 2024-02-13 16:34 | XMS_ITS | Encounter Summary ---
[place] [address] Care Team Providers Care Geospatial Developer Name Role Phone Justin Juarez MD Primary Care Provider [phone] Reason for Referral * Consultation (Routine) - Closed Specialty Diagnoses / Procedures Referred By Contac t Referred To Contact [facility] Diagnoses Radiculopathy of lumbar region F/U lumbar radiculopathy/XR 06/15/23 in e-DH/? Left L5 TFESI FUV SLAT BASKET MAKER Osmar Leigh MD [facility] [place] [address] [facility] [place] [address] Referral ID Status Reason Start Date Expiration Date V isits Requested Visits Authorized [id number] Closed Consult, Test & Treat 07/02/2023 07/01/2024 1 1 Reason for Visit * Reason Comments Back Pain * Consultation (Routine) - Closed Specialty Diagnoses / Procedures Referred By Contac t Referred To Contact [facility] Diagnoses Radicular pain of left lower extremity Minnie Muñoz, ASSOCIATE PROFESSOR OF THEATRE [facility] [place] [address] [facility] [place] [address] Referral ID Status Reason Start Date Expiration Date V isits Requested Visits Authorized [id number] Closed Consult, Test & Treat 06/01/2023 05/31/2024 1 1 Encounter Details Date Type Department Care Team (Latest Contact Info) Description 07/02/2023 1:20 PM EDT Office Visit [place] [address] Osmar Leigh MD [facility] [place] [address] Radiculopathy of lumbar region Social History Tobacco [...] unspecified documented in this encounter Care Teams Geospatial Developer Relationship Specialty Start Date End Date Justin Juarez MD PCP - General Family Medicine 12/29/22 documented as of this encounter
--- OUTSIDE RECORDS SUMMARY | 2024-02-13 16:34 | XMS_ITS | Encounter Summary ---
[place] [address] Care Team Providers Care Cd Technician Name Role Phone Justin Juarez MD Primary Care Provider Reason for Referral * Consultation (Routine) - Duplicate Referral Specialty Diagnoses / Procedures Referred By Contac t Referred To Contact [facility] Diagnoses Left sided sciatica Idiopathic peripheral neuropathy Jacey Amador APRN [address] [place] [address] [facility] [place] [address] Referral ID Status Reason Start Date Expiration Date Visits Requested Visits Authorized [id number] Duplicate Referral Consult, Test & Treat PCP Updated and/or Approved 12/29/2022 12/29/2023 12 12 Encounter Details Date Type Department Care Team (Latest Contact Info) Description 12/29/2022 Transcribe Orders eDH Incoming Referrals [phone] Jacey Amador APRN [address] [place] [address] Left sided sciatica; Idiopathic peripheral neuropathy Social [...] neuropathy documented in this encounter Care Teams Cd Technician Relationship Specialty Start Date End Date Justin Juarez MD PCP - General Family Medicine 12/29/22 documented as of this encounter
--- OUTSIDE RECORDS SUMMARY | 2024-02-13 16:34 | XMS_ITS | Encounter Summary ---
Author Organization [facility] [place] [address] Care Team Providers Care Sheepskin Pickler Name Role Phone Glenys Hernandez JL Primary Care Provider [phone] Encounter Details Date Type Department Care Team (Late st Contact Info) Description 11/08/2022 Ancillary Procedure Radiology Library at [facility] [place] [id number] Minnie Muñoz POLYSTYRENE MOLDING MACHINE TENDER [facility] [place] [address] Social History Tobacco Use Types Packs/Day Years [...] MR Spine (11/08/2022 12:00 AM EDT) Narrative [facility] - 02/06/2023 9:41 PM EDT This exam is auto-finalizing. It's purpose is for storage only. Minnie Muñoz APRN IMMarlena FILM LIBRARY OR DERABLES Performing Organization Address City/State/[facility] Co de Phone Number [place], [place] documented in this encounter Visit Diagnoses Not on filedocumented in this encounter Care Teams Sheepskin Pickler Relationship Specialty Start Date End Date Glenys Hernandez APRN [address] [place] [address] PCP - General Family Medicine 09/26/21 12/28/22 documented as of this encounter
--- OUTSIDE RECORDS SUMMARY | 2024-02-13 16:34 | XMS_ITS | Encounter Summary ---
Author Organization [facility] [place] [address] Care Team Providers Care Skate Boarder Name Role Phone Justin Juarez MD Primary Care Provider [phone] Encounter Details Date Type Department Care Team (Late st Contact Info) Description 05/17/2023 7:05 PM EST Ancillary Procedure Radiology Library at [facility] [place] [phone] Justin Juarez MD [address] [place] [address] [place] [address] Social History Tobacco Use Types Packs/Day Years [...] MR Spine (05/17/2023 7:01 PM EST) Narrative [facility] - 05/17/2023 7:01 PM EST This exam is auto-finalizing. It's purpose is for storage only. Justin Juarez MD G FILM LIBRARY ORD ERABLES Performing Organization Address City/State/[facility] Co de Phone Number [place], [place] documented in this encounter Visit Diagnoses Not on filedocumented in this encounter Care Teams Skate Boarder Relationship Specialty Start Date End Date Justin Juarez MD PCP - General Family Medicine 12/29/22 documented as of this encounter
--- OUTSIDE RECORDS SUMMARY | 2024-02-13 16:34 | XMS_ITS | Encounter Summary ---
[place] [address] Care Team Providers Care Equipment Service Associate Name Role Phone FiorGlenys reed JL Primary Care Provider [phone] Reason for Referral * Physical Therapy (Routine) - Closed Specialty Diagnoses / Procedures Referred By Contac t Referred To Contact Diagnoses Headache, cervic[place] [address] Unknown None Referral ID Status Reason Start Date Expiration Date V isits Requested Visits Authorized [id number] Closed Evaluate and Treat Non PCP 12/04/2022 06/02/2023 12 12 Reason for Visit * Consultation (Routine) - Closed Specialty Diagnoses / Procedures Referred By Contac t Referred To Contact Neurology Diagnoses Migraine without status migrainosus, not intractable, unspecified migraine type Medication management contract agreement Jacey Amador APRN [facility] [place] [address] [facility] [address] [place] [id number] Referral ID Status Reason Start Date Expiration Date V isits Requested Visits Authorized [id number] Closed Consult, Test & Treat PCP Updated and/or Approved 10/17/2022 10/17/2023 12 12 Encounter Details Date Type Department Care Team (Latest Contact Info) Description 12/04/2022 10:00 AM EDT TH Visit (TeleHealth) [place] [address] Pantera Welch MD [facility] [place] [address] Headache, cervicogenic Social History Tobacco Use Types [...] of this encounter Progress Notes * Pantera Weclh MD - 12/04/2022 10:00 AM EDT Images from the original note were not included. [place] [address] 12/04/2022 Patient name: Aydee Johns Date of : 1965 Referring provider: Glenys Hernandez APRN [address] [place] [address] HISTORY REASON FOR REFERRAL/CHIEF COMPLAINT: Headache/ Migraine HISTORY OF PRESENTING COMPLAINTS: Referred for headache. She was previously seen at [facility] Headache and Neurology. She says she [...] Knee to feet bilaterally secondary to Gilda [place], decreased sensation to kimberly arms as well Obstructive sleep apnea 11/03/2015 Stress disorder, posttraumatic 11/04/2015 Past Surgical History: Procedure Laterality Date APPENDECTOMY CHOLECYSTECTOMY COLECTOMY COLONOSCOPY PRO LAMINEC/FACETECT/FORAMIN, LUMBAR 1 SEG Left 08/31/2020 LAMINECTOMY, FACETECTOMY & FORAMINOTOMY,LUMBAR, ONE LEVEL (WRVU 15.37) performed by Homar Astudillo MD at [facility] MAIN OR Family History: Family [...] found for: CRP B12No results found for: [id number] CKNo results found for: CK Angiotensin ConvertaseNo [...] (H) 08/29/2021 KURTIS 65No results found for: TND15TU ANTI GM1,ANTI SGPG, MAG@RESUFAST (MAGAUTOAB,SGPG,MAGWB,GM1AB)@ HEAVY METAL [...] ANNA1, ANNA2, ANNA3, AGNA1, PCA1, PCA2, PCATYPETR, AMPHIPHYSIN,[id number], STRIATMSCLAB, CACHABPQTYPE, CACHABNTYPE, ACHRBINDAB, NEUROKCHAB, NMDARECEPTOR, TGS83UE THROMBOSIS HOMEOCYSTEINENo results found for: HOMOCYSTEINE THROMBOSIS PANELNo results found for: ACAIGM, [id number] FACTOR V LEIDEN No components found for: [...] past. Was seen in Headache clinic at [facility] in the past. Workup with MRI [...] needed. Pantera Welch MD Department of Neurology [facility] documented in this encounter Plan of [...] Headache documented in this encounter Care Teams Equipment Service Associate Relationship Specialty Start Date End Date Glenys Hernandez APRN [address] [place] [address] PCP - General Family Medicine 09/26/21 12/28/22 documented as of this encounter
--- OUTSIDE RECORDS SUMMARY | 2024-02-13 16:34 | XMS_ITS | Encounter Summary ---
[place] [address] Care Team Providers Care Supervisor Stave Cutting Name Role Phone Justin Juarez MD Primary Care Provider [phone] Reason for Referral * Consultation (Routine) - Closed Specialty Diagnoses / Procedures Referred By Contac t Referred To Contact Pain and Spine Center Diagnoses Left sided sciatica Minnie Muñoz APRN [facility] [place] [address] [facility] [place] [address] Referral ID Status Reason Start Date Expiration Date V isits Requested Visits Authorized [id number] Closed Consult, Test & Treat 07/26/2023 07/25/2024 1 1 Reason for Visit * Consultation (Routine) - Closed Specialty Diagnoses / Procedures Referred By Contac t Referred To Contact [facility] Diagnoses Radiculopathy of lumbar region F/U lumbar radiculopathy/XR 06/15/23 in e-DH/? Left L5 TFESI FUV ENGINEER SERGEANT Osmar Leigh MD [facility] [place] [address] [facility] [place] [address] Referral ID Status Reason Start Date Expiration Date V isits Requested Visits Authorized [id number] Closed Consult, Test & Treat 07/02/2023 07/01/2024 1 1 Encounter Details Date Type Department Care Team (Latest Contact Info) Description 07/26/2023 1:00 PM EDT TH Visit (TeleHealth) [facility] Spine Center at [facility] [place] [address] Minnie Muñoz, ACQUISITION ASSOCIATE [facility] [place] [address] Left sided sciatica (Primary Dx) Social History [...] this encounter Progress Notes * Minnie Muñoz, ACQUISITION ASSOCIATE - 07/26/2023 1:00 PM EDT Images from the original note were not included. [facility] Date [...] She is [facility] [place] [facility] and [facility] she would like to [...] medial facetectomy done by Dr. Goodmans at [facility] neurology and neurosurgery in 2020 for a left-sided calcified synovial cyst. Since then she has had severe left leg pain that is problematic for her. She really cannot do much of anything. She is fine that the pain is quite severe and she would like to consider a referral to a surgeon. We also talked about the functional islam program but she does not have good transportation. She does not feel she needs empowered relief because she has done a lot of cognitive behavioral therapy. She is at maximum dose of gabapentin and is not really interested in continuing with other medications. She wants to have a final solution for her symptoms. Updated interval history 07/26/2023: [facility] [place] [facility] Telemedicine Visit [...] Best in past week:4/10 Worst in past week:1009/26/2021 12:52 PM myD-H Pain VR12 - Physical Summary Component 16.12 VR12 - Mental Component Summary 60.98 MODEMS Expectation 25 Family History of Substance Abuse (Female) 0 Personal History of Substance Abuse(Female) 0 Age 0 History of Preadolescent sexual abuse(Female) 0 Psychological Disease 0 ORT Total Scores (Female) 0 (Low risk) BPI Severity Score 6 BPI Interference Score 8.29 PAST THERAPIES: PT in [place] Chiropractor Tylenol Functional Status Work-- disabled ADL's---difficulty [...] Knee to feet bilaterally secondary to Gilda [place], decreased sensation to kimberly arms as well Obstructive sleep apnea 11/03/2015 Stress disorder, posttraumatic 11/04/2015 Past Surgical History: Past Surgical History: Procedure Laterality Date APPENDECTOMY CHOLECYSTECTOMY COLECTOMY COLONOSCOPY PRO LAMINEC/FACETECT/FORAMIN, LUMBAR 1 SEG Left 08/31/2020 LAMINECTOMY, FACETECTOMY & FORAMINOTOMY,LUMBAR, ONE LEVEL (WRVU 15.37) performed by Homar Astudillo MD at [facility] MAIN OR Review of Systems: Denies fever, [...] y.o. year-old female who presents to the [facility] for [facility] andSpine clinic With low [...] send her some information about our functional islam program which might be helpful for her as well. Thank you Dr. Leigh for allowing my participation in Aydee Johns's care. Minnie Muñoz, MS, TEST LAB TECHNICIAN-BC, ACQUISITION ASSOCIATE Nurse practitioner Pain management [facility] documented in this encounter Plan [...] Sciatica documented in this encounter Care Teams Supervisor Stave Cutting Relationship Specialty Start Date End Date Justin Juarez MD PCP - General Family Medicine 12/29/22 documented as of this encounter
--- OUTSIDE RECORDS SUMMARY | 2024-02-13 16:34 | XMS_ITS | Encounter Summary ---
Author Organization [facility] [place] [address] Care Team Providers Care Financial Aids Officer Name Role Phone Glenys Hernandez APRN Primary Care Provider [phone] Encounter Details Date Type Department Care Team [...] on filedocumented in this encounter Care Teams Financial Aids Officer Relationship Specialty Start Date End Date Glenys Hernandez, JL [address] [place] [facility] [address] PCP - General Family Medicine 09/26/21 12/28/22 documented as of this encounter
--- OUTSIDE RECORDS SUMMARY | 2024-02-13 16:34 | XMS_ITS | Encounter Summary ---
[place] [address] Care Team Providers Care Certified Professional Controller Name Role Phone Justin Juarez MD Primary Care Provider [phone] Encounter Details Date Type Department Care Team [...] on filedocumented in this encounter Care Teams Certified Professional Controller Relationship Specialty Start Date End Date Justin Juarez MD PCP - General Family Medicine 12/29/22 documented as of this encounter
--- OUTSIDE RECORDS SUMMARY | 2024-02-13 16:34 | XMS_ITS | Encounter Summary ---
[place] [address] Care Team Providers Care Associate Teacher Name Role Phone Justin Juarez MD Primary Care Provider [phone] Encounter Details Date Type Department Care Team [...] on filedocumented in this encounter Care Teams Associate Teacher Relationship Specialty Start Date End Date Justin Juarez MD PCP - General Family Medicine 12/29/22 documented as of this encounter
--- OUTSIDE RECORDS SUMMARY | 2024-02-13 16:34 | XMS_ITS | Encounter Summary ---
Author Organization [facility] [place] [address] Care Team Providers Care Fruit Pitter Name Role Phone Justin Juarez MD Primary Care Provider [phone] Encounter Details Date Type Department Care Team (Late st Contact Info) Description 06/15/2023 Ancillary Procedure Radiology Library at [facility] [place] [place] [id number] Justin Juarez MD [address] [place] [address] [place] [address] Social History Tobacco Use Types Packs/Day Years [...] DX Spine (06/15/2023 12:00 AM EST) Narrative [facility] - 06/18/2023 3:18 PM EDT This exam is auto-finalizing. It's purpose is for storage only. Justin Juarez MD [facility] FILM LIBRARY ORD ERABLES Performing Organization Address City/State/[facility] Co de Phone Number [place], [place] documented in this encounter Visit Diagnoses Not on filedocumented in this encounter Care Teams Fruit Pitter Relationship Specialty Start Date End Date Justin Juarez MD PCP - General Family Medicine 12/29/22 documented as of this encounter
--- OUTSIDE RECORDS SUMMARY | 2024-02-13 16:34 | XMS_ITS | Encounter Summary ---
Author Organization [facility] [place] [address] Care Team Providers Care Hog Ringer Name Role Phone Justin Juarez MD Primary Care Provider [phone] Encounter Details Date Type Department Care Team ([facility] st Contact Info) Description 12/29/2022 Transcribe Orders eD Incoming Referrals [phone] Justin Juarez MD [address] [place] [address] [place], [place] [id number] Social History Tobacco Use Types Packs/Day Years [...] on filedocumented in this encounter Care Teams Hog Ringer Relationship Specialty Start Date End Date Justin Juarez MD PCP - General Family Medicine 12/29/22 documented as of this encounter
--- OUTSIDE RECORDS SUMMARY | 2024-02-13 16:34 | XMS_ITS | Encounter Summary ---
[place] [address] Care Team Providers Care Director Multimedia Name Role Phone Justin Juarez MD Primary Care Provider [phone] Encounter Details Date Type Department Care Team (Late st Contact Info) Description 07/27/2023 Telephone [place] [phone] Mike Rock Social History Tobacco Use Types [...] filedocumented in this encounter Care Teams Director Multimedia Relationship Specialty Start Date End Date Justin Juarez MD PCP - General Family Medicine 12/29/22 documented as of this encounter
--- OUTSIDE RECORDS SUMMARY | 2024-02-13 16:34 | XMS_ITS | Clinical Summary ---
Author Organization [facility] [place] [address] Care Team Providers Care Can Sealer Name Role Phone Justin Juarez MD Primary Care Provider Allergies Active Allergy Reactions Criticality Noted Date [...] mg Tablet Sustained Release 24 hr Take 1,200 mg by mouth 2 times daily. Active cyclobenzaprine (FLEXERIL) 5 mg [...] 2 puffs into the lungs 2 times daily as needed. 08/15/2020 Active omeprazole (PriLOSEC) 40 mg Capsule, Delayed Release(E.C.) Take 40 mg by mouth daily. 08/15/2020 Active ascorbic acid (VITAMIN C ORAL) Take 1,000 mg by mouth daily. Active cholecalciferol, vitD3,/vit K2 (vitamin D3-vitamin K2) 250 mcg (10,000 unit)-45 mcg Capsule Take 1 capsule by mouth daily. Active UNKNOWN TO PATIENTIndications:joseph adams suppliment Indications: kareem angie suppliment Active UNKNOWN TO PATIENTIndications:c ognative health suppliment Indications: cognative health suppliment Active VITAMIN E ACETATE ORAL Take by mouth. Active SUMAtriptan (Imitrex) 25 mg tablet Take 25 mg by mouth as needed for Migraine. Initial dose: 25 mg, 50 mg, or 100 mg (take with fluids). May repeat dose after 2 hours. Max daily dose: 200 mg Active b complex vitamins Capsule Take 1 capsule by mouth daily. *Super B* Active UNABLE TO FIND Take by mouth daily. Vit. B17 Active Active Problems Problem Noted Date Diagnosed [...] Encounters Date Type Department Care Team Description 01/23/2024 2:00 PM EDT Office Visit [place] [phone] Kenneth Martin MD Radiculopathy of lumbar region (Primary Dx) 01/23/2024 Travel 11/16/2023 2:00 PM EDT Tech [place] [address] Odalys Smith, RVT Peripheral vascular disease, unspecified 11/16/2023 Travel 11/13/2023 Transcribe Orders eDH Incoming Referrals [phone] Jacey Amador, COMMUNITY MANAGER Peripheral vascular disease, unspecified from Last 3 [...] Sign Reading Time Taken Comments Blood Pressure 143/69 01/23/2024 1:32 PM EDT Pulse 76 01/23/2024 1:32 PM EDT Temperature 35.6 ??C (96.1 ??F) 08/31/2020 1 1:56 AM EDT gown warmer initiated, warm blankets appied to patient Respiratory Rate 16 08/31/2020 1:15 PM EDT Oxygen Saturation 95% 01/23/2024 1:3 2 PM EDT Inhaled Oxygen Concentration - - Weight 107 kg (236 lb) 01/23/2024 1:32 PM EDT Height 160 cm (5' 3) 01/23/2024 1:32 PM EDT Body Mass Index 41.81 01/23/2024 1:32 PM EDT Plan of Treatment Health Maintenance Due Date Last Done Comments CT Colonography 1965 Colonoscopy 1965 Colorectal Cancer Screening 1965 FIT DNA 1965 FIT 1965 Sigmoidoscopy (10 year) with FIT yearly 1965 Sigmoidoscopy 1965 Pneumococcal Vaccine: At-Ris k 5-64yrs (1 of 2 - PCV) 1969 HIV screen 1981 Hepatitis C Screening 1981 Tetanus/Diphtheria/Pertussis Vaccines (1 - Tdap) 1982 HPV test 1993 PAP Smear 1993 Breast Cancer Share Decision Needed 2003 Breast Cancer screening 2003 Zoster vaccine (1 of 2) 2013 Advance Directive 2018 Covid-19 Vaccine (1 - 2022- season) 2023 Influenza (Flu) vaccine (1 o [...] 1:59 PM EDT Peripheral vascular disease, unspecified [facility] EXTERNAL LABS 2 Routine 12/22/2021 [facility] EXTERNAL RESULT PANEL Routine 08/29/2021 from Last 3 Months or Most Recently Relevant to Health Maintenance Results * NOAH, legs, multiple levels (11/16/2023 1:59 PM EDT) VB Text Report Department: Vascular Surgery Lab Patient: [id number] (AYDEE BEVERLY) CPT: 11489 Referring Physician: JACEY AMADOR ?? Phone: Indications: [...] VASCUBASE 11/16/2023 1:59 PM EDT Jacey Amador COMMUNITY MANAGER VASCULAR ORDERABLES VASCUBASE * (ABNORMAL) [facility] Labs 2 - External (12/22/2021) Hemoglobin A1c 5.9(H) Glucose Fasting 103 Vitamin D Total 25 OH 19.1(L) Thyroid Stimulating Hormone 0.93 Insulin 15.1 Ferritin 120 Iron 76 12/22/2021 Historical Provider EXTERNAL LAB BORA MENDOZA * (ABNORMAL) [facility] External Results (08/29/2021) Cholesterol, Total [...] Recently Relevant to Health Maintenance Care Teams Can Sealer Relationship Specialty Start Date End Date Justin Juarez MD PCP - General Family Medicine 12/29/22
--- OUTSIDE RECORDS SUMMARY | 2024-02-13 16:34 | XMS_ITS | Encounter Summary ---
[place] [address] Care Team Providers Care Fishing Lure Assembler Name Role Phone Justin Juarez MD Primary Care Provider [phone] Encounter Details Date Type Department Care Team [...] on filedocumented in this encounter Care Teams Fishing Lure Assembler Relationship Specialty Start Date End Date Justni Juarez MD PCP - General Family Medicine 12/29/22 documented as of this encounter
--- OUTSIDE RECORDS SUMMARY | 2024-02-13 16:34 | XMS_ITS | Encounter Summary ---
[place] [address] Care Team Providers Care Television Maintenance Worker Name Role Phone Justin Juarez MD Primary [...] on filedocumented in this encounter Care Teams Television Maintenance Worker Relationship Specialty Start Date End Date Justin Juarez MD PCP - General Family Medicine 12/29/22 documented as of this encounter
--- OUTSIDE RECORDS SUMMARY | 2024-02-13 16:34 | XMS_ITS | Encounter Summary ---
Author Organization [facility] [place] [address] Care Team Providers Care Inspector Outside Steam Distribution Name Role Phone Glenys Hernandez JL Primary Care Provider [phone] Encounter Details Date Type Department Care Team (Late st Contact Info) Description 09/18/2022 Ancillary Procedure Radiology Library at [facility] [place] [phone] Minnie Muñoz PROCESS DESIGNER [facility] [place] [address] Social History Tobacco Use Types Packs/Day Years [...] MR Spine (09/18/2022 12:00 AM EDT) Narrative [facility] - 02/06/2023 9:40 PM EDT This exam is auto-finalizing. It's purpose is for storage only. Minnie Muñoz APRN IMMarlena FILM LIBRARY OR DERABLES Performing Organization Address City/State/[facility] Co de Phone Number [place], [place] documented in this encounter Visit Diagnoses Not on filedocumented in this encounter Care Teams Inspector Outside Steam Distribution Relationship Specialty Start Date End Date Glenys Hernandez APRN [address] [place] [address] PCP - General Family Medicine 09/26/21 12/28/22 documented as of this encounter
--- OUTSIDE RECORDS SUMMARY | 2024-02-13 16:34 | XMS_ITS | Encounter Summary ---
Author Organization [facility] [place] [address] Care Team Providers Care Operational Trainer Name Role Phone Justin Juarez MD Primary Care Provider [phone] Reason for Visit * Diagnostic Test (Routine) - Closed Specialty Diagnoses / Procedures Referred By Contac t Referred To Contact Diagnoses Peripheral vascular disease, unspecified Procedures NOAH, legs, multiple levels Jacey Amador, TECHNICAL MANAGER [employer] [address] [place] [address] [facility] Vascular Lab [address] [place] [address] Referral ID Status Reason Start Date Expiration Date V isits Requested Visits Authorized [id number] Closed Specialty Service Requested 11/13/2023 11/12/2024 1 1 Encounter Details Date Type Department Care Team (Late st Contact Info) Description 11/16/2023 2:00 PM EDT Tech [place] [address] Odalys Smith, RVT Peripheral vascular [...] Text Report Department: Vascular Surgery Lab Patient: [id number] (AYDEE BEVERLY) CPT: 61413 Referring Physician: JACEY AMADOR ?? Phone: Indications: [...] unspecified documented in this encounter Care Teams Operational Trainer Relationship Specialty Start Date End Date Justin Juarez MD PCP - General Family Medicine 12/29/22 documented as of this encounter
--- OUTSIDE RECORDS SUMMARY | 2024-02-13 16:34 | XMS_ITS | Encounter Summary ---
Author Organization [place] [address] Care Team Providers Care Men'S Leather Dress Belt Maker Name Role Phone Justin Juarez MD Primary Care Provider [phone] Reason for Referral * Consultation (Routine) - Closed Specialty Diagnoses / Procedures Referred By Contac t Referred To Contact Pain and Spine Center Diagnoses Radicular pain of left lower extremity Minnie Muñoz APRN [facility] [place] [address] [facility] [place] [address] Referral ID Status Reason Start Date Expiration Date V isits Requested Visits Authorized [id number] Closed Consult, Test & Treat 06/01/2023 05/31/2024 1 1 Reason for Visit * Reason Comments Follow-up Left Leg Pain Left leg pain and sw elling(lower leg)Lower back Back Pain Encounter Details Date Type Department Care Team (Late st Contact Info) Description 06/01/2023 10:15 AM EST Office Visit [place] [address] Minnie Muñoz APRN [facility] [place] [address] Radicular pain of left lower [...] this encounter Progress Notes * Minnie Muñoz, INDUCTION COORDINATION ENGINEER - 06/01/2023 10:15 AM EST Images from the original note were not included. [facility] [...] She is [facility] [place] [facility] and Tylenol she would like [...] medial facetectomy done by Dr. Goodmans at [facility] neurology and neurosurgery in 2021 for a left-sided calcified synovial cyst. Since then she has had severe left leg pain that is problematic for her. She really cannot do much of anything. She is fine that the pain is quite severe and she would like to consider a referral to a surgeon. We also talked about the functional adventist program but she does not have good [...] Interference Score 8.29 PAST THERAPIES: PT in [place] Chiropractor Tylenol Functional Status Work-- disabled ADL's---difficulty [...] Knee to feet bilaterally secondary to Gilda [place], decreased sensation to kimberly arms as well Obstructive sleep apnea 11/03/2015 Stress disorder, posttraumatic 11/04/2015 Past Surgical History: Past Surgical History: Procedure Laterality Date APPENDECTOMY CHOLECYSTECTOMY COLECTOMY COLONOSCOPY PRO LAMINEC/FACETECT/FORAMIN, LUMBAR 1 SEG Left 08/31/2020 LAMINECTOMY, FACETECTOMY & FORAMINOTOMY,LUMBAR, ONE LEVEL (WRVU 15.37) performed by Homar Astudillo MD at [facility] MAIN OR Review of Systems: [...] y.o. year-old female who presents to the [facility] With [...] in Aydee Johns's care. Minnie Muñoz, MS, CONSTRUCTION INSPECTOR-BC, INDUCTION COORDINATION ENGINEER Nurse practitioner Pain management [facility] documented in this encounter Plan of [...] unspecified documented in this encounter Care Teams Men'S Leather Dress Belt Maker Relationship Specialty Start Date End Date Justin Juarez MD PCP - General Family Medicine 12/29/22 documented as of this encounter
--- OUTSIDE RECORDS SUMMARY | 2024-02-13 16:34 | XMS_ITS | Encounter Summary ---
Author Organization [facility] Address [facility] [place] [address] Care Team Providers Care Strip Mine Supervisor Name Role Phone Glenys Hernandez APRN Primary Care Provider [phone] Reason for Visit * Consultation (Routine) - Closed Specialty Diagnoses / Procedures Referred By Contashu t Referred To Contact Dermatology Diagnoses Pruritus, unspecified Procedures Itching of Skin; New Patient-Notes Received Glenys Hernandez APRN [facility] [address] [facility] [address] [facility] Dermatology [address] [place] [address] Referral ID Status Reason Start Date Expiration Date V isits Requested Visits Authorized [id number] Closed Consult, Test & Treat PCP Updated and/or Approved 03/20/2022 03/20/2023 6 6 Encounter Details Date Type Department Care Team ([facility] Contact Info) Description 07/04/2022 3:00 PM EDT Office Visit Dermatology at [facility] [address] [place] [phone] Syeda Dias MD [facility] [address] [place] [address] Pruritus Social History Tobacco Use [...] as of this encounter Progress Notes * Santa Diasnathan Richards - 07/04/2022 3:00 PM EDT Images from the [...] products discussed RTC: PRN []Note routed to marshmallow maker []Recall placed in scheduling system []Appointment scheduled at checkout Scribe attestation: Bonifacio Tran CMA and Nic Barajas have performed the documentation for this encounter in the presence of and acting as a scribe for Syeda Dias MD. I performed the above scribed service and agree with the accuracy of the documentation in this encounter. Reviewed and signed by: Syeda Dias MD Dermatology [facility] Patient seen and evaluated with staff operations plant attendant: Santiago Patrick MD Dermatology [facility] * Santiago Patrick MD - 07/04/2022 3:00 PM EDT I was the supervising physician working with dermatology resident Dr. Dias in the dermatology clinic during this patient visit. The level of resident supervision for this patient visit was indirectsupervision with direct supervision immediately available. (definition: [facility] Policy Statement on Graduate Medical [...] disorder documented in this encounter Care Teams Strip Mine Supervisor Relationship Specialty Start Date End Date Glenys Hernandez APRN [address] [place] [address] PCP - General Family Medicine 09/26/21 12/28/22 documented as of this encounter
--- OUTSIDE RECORDS SUMMARY | 2024-02-13 16:34 | XMS_ITS | Encounter Summary ---
Author Organization [facility] [place] [address] Care Team Providers Care Rodeo Clown Name Role Phone Justin Juarez MD Primary Care Provider [phone] Reason for Referral * Diagnostic Test (Routine) - Closed Specialty Diagnoses / Procedures Referred By Contac t Referred To Contact Diagnoses Peripheral vascular disease, unspecified Procedures NOAH, legs, multiple levels Jacey Amador APRN [address] [place] [address] [facility] [address] [place] [address] Referral ID Status Reason Start Date Expiration Date V isits Requested Visits Authorized [id number] Closed Specialty Service Requested 11/13/2023 11/12/2024 1 1 Encounter Details Date Type Department Care Team (Latest Contact Info) Description 11/13/2023 Transcribe Orders eDH Incoming Referrals [phone] Jacey Amador APRN [address] [place] [address] Peripheral vascular disease, unspecified Social History Tobacco [...] Text Report Department: Vascular Surgery Lab Patient: [id number] (AYDEE BEVERLY) CPT: 10091 Referring Physician: JACEY AMADOR ?? Phone: Indications: [...] unspecified documented in this encounter Care Teams Rodeo Clown Relationship Specialty Start Date End Date Justin Juarez MD PCP - General Family Medicine 12/29/22 documented as of this encounter
--- OUTSIDE RECORDS SUMMARY | 2024-02-13 16:34 | XMS_ITS | Encounter Summary ---
[place] [address] Care Team Providers Care Doctor Of Pharmacy Name Role Phone Glenys Hernandez GUSSET MAKER Primary Care Provider [phone] Reason for Referral * Consultation (Routine) - Closed Specialty Diagnoses / Procedures Referred By Mayda t Referred To Contact Neurology Diagnoses Polyneuropathy Andrea Méndez DO [facility] [place] [address] [facility] [address] [place] [id number] Referral ID Status Reason Start Date Expiration Date V isits Requested Visits Authorized [id number] Closed Consult, Test & Treat PCP Updated and/or Approved 08/10/2022 08/10/2023 1 1 Encounter Details Date Type Department Care Team (Latest Contact Info) Description 08/10/2022 Transcribe Orders eDH Incoming Referrals [phone] Andrea Méndez DO [address] [place] [address] Polyneuropathy (Primary Dx) Social History Tobacco Use [...] neuropathy documented in this encounter Care Teams Doctor Of Pharmacy Relationship Specialty Start Date End Date Glenys Hernandez APRN [address] [place] [address] PCP - General Family Medicine 09/26/21 12/28/22 documented as of this encounter
--- OUTSIDE RECORDS SUMMARY | 2024-02-13 16:34 | XMS_ITS | Encounter Summary ---
[place] [address] Care Team Providers Care Repair Servicer Name Role Phone Justin Juarez MD Primary Care Provider [phone] Reason for Visit * Reason Comments Back Pain SCS consult * Consultation (Routine) - Closed Specialty Diagnoses / Procedures Referred By Contac t Referred To Contact Pain and Spine Center Diagnoses Left sided sciatica Minnie Muñoz, SOOT BLOWER [facility] [place] [address] [facility] [address] Referral ID Status Reason Start Date Expiration Date V isits Requested Visits Authorized [id number] Closed Consult, Test & Treat 07/26/2023 07/25/2024 1 1 Encounter Details Date Type Department Care Team (Latest Contact Info) Description 01/23/2024 2:00 PM EDT Office Visit [place] [address] Kenneth Martin MD [facility] [place] [address] Radiculopathy of lumbar region (Primary Dx) Social History Tobacco Use Types [...] Pulse 76 01/23/2024 1:32 PM EDT Temperature - - Respiratory Rate - - Oxygen Saturation 95% 01/23/2024 1:32 PM EDT Inhaled Oxygen Concentration - - Weight 107 kg (236 lb) 01/23/2024 1:32 PM EDT Height 160 cm (5' 3) 01/23/2024 1:32 PM EDT Body Mass Index 41.81 01/23/2024 1:32 PM EDT documented in this encounter Progress Notes * Debbie Bowles, - 01/23/2024 2:00 PM EDT [facility] Initial Consultation Note Name: Aydee Johns : 1965 Consulting Physician: Seeing at the request of Minnie Muñoz APRN [facility] [place] [address] Chief Complaint: Lower back pain History of Present Illness: Aydee Johns is a 59 y.o. female with past medical history below who presents with lower back pain and radicular component in the left leg. The pain is along the whole lower back and radiates into the left lateral leg. In regards to her previous surgical history she went to Dr. Astudillo who removed synovial cyst at L5-S1 prior hemilaminectomy and medial facetectomy. 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 Mental health problem Anxiety, Depression, PTSD Morbid obesity 11/04/2015 Motion sickness Neuropathy involving both lower extremities Knee to feet bilaterally secondary to Gilda [place], decreased sensation to kimberly arms as well Obstructive sleep apnea 11/03/2015 Stress disorder, posttraumatic 11/04/2015 Functional Goals of Treatment: decrease pain and increase function Onset/Context of pain: Pain Location: Lower back pain Onset: 1993 Quality and timing of pain: sharp pain, feeling of her legs possibly trying to buckle Radiation: Down left lower extremity Pain Ratin Aggravating Factors: Activity, standing Relieving Factors: Edible marijuana gummies Numbness/Tingling: in both legs Sleep: Difficulty sleeping due to pain Mood: Appropriate Red flag symptoms: Bowel and bladder: No loss of control Saddle anesthesia: Denies Weakness: Denies Pertinent History: h/o Thrombocytopenia/bleeding tendency/platelet dysfunction: No h/o Liver disease/abnormal liver function: Yes, fatty liver h/o Chronic kidney disease (CKD)/abnormal kidney function: No Patient on dialysis: no h/o Diabetes: No Anticoagulation/Aspirin: No Current pain treatments include: Gabapentin Conservative Treatment: Acetaminophen: Yes Helpful? Yes Gabapentin helpful The patient has not been actively engaged in Physical therapy or a provider directed home exercise program. A home exercise program is not being performed secondary to pain Other Treatment: Refined Syrup Operator Helpful? No History of Interventional Procedures/Surgery: Prior Surgery: Yes. Past Surgical History: Procedure Laterality Date APPENDECTOMY CHOLECYSTECTOMY COLECTOMY COLONOSCOPY PRO LAMINEC/FACETECT/FORAMIN, LUMBAR 1 SEG Left 08/31/2020 LAMINECTOMY, FACETECTOMY & FORAMINOTOMY,LUMBAR, ONE LEVEL (WRVU 15.37) performed by Homar Astudillo MD at [facility] Injection History (date, procedure, %improvement): Lumbar epidural steroid injection - [facility] approximately 2 years ago without improvement Chart review: Today I have reviewed available medical information in the patient[place] [facility] including relevant provider notes, laboratory work, and imaging. Historical Review: I have reviewed the patient's past medical, surgical, social, and family history available in the EMR at this time along with supplemented information provided by the patient during the interview process today. Pertinent findings: Tobacco: Social History Tobacco Use Smoking Status Former Current packs/day: 1.00 Types: Cigarettes Smokeless Tobacco Never Tobacco Comments smoking cessation info given Quit in 12/2021 Alcohol: Social History Substance and Sexual Activity Alcohol Use Never Recreational drug use: Edible marijuana gummies Work: on disability Legal issues (WC/MVA, etc): None Housing: Lives alone Medications and list of allergies: Medications and allergies were reviewed, reconciled and updated in the electronic medical record. ROS: Positive for above mentioned musculoskeletal and neurological findings on 14 point system review. Areas of disrupted skin integrity/wounds/lesions: No Denies any other constitutional symptoms, fevers, or weight changes. Physical Exam: Blood pressure 143/69, pulse 76, height 160 cm (5' 3), weight 107 kg (236 lb), SpO2 95%. Pain: 2 General: Well-nourished, well-developed, female in no distress Respiratory: Non-labored breathing pattern on RA. No respiratory distress Cardiovascular: No edema or cyanosis. 2+ peripheral pulses Skin: No appreciable rashes or skin breakdown Psych: Appropriate affect, answers questions appropriately Musculoskeletal: Inspection - No gross spinal deformity noted. Palpation - Tenderness to palpation on lumbar paraspinal muscles ROM - Lumbar Extension, Lateral rotation is Limited and painful Special tests: - SI Joint provocative testing is Positive bilaterally via Pelvic Distraction - Facet loading in the Lumbar spine is Positive bilaterally - FAIR Negative bilaterally Neurologic: Motor: 5/5 throughout all muscle groups of the upper extremities and lower extremities Reflexes: Segment Reflex Right Left L3-4 Patella 2+ 2+ S1-2 Achilles 2+ 2+ Upper Motor Neuron Signs: Clonus is not present bilaterally (0=absent, 1=slight response, 2=brisk/normal, 3=very brisk, 4=clonus) Sensory - Intact to light touch and pinprick at bilateral upper and lower extremities. Allodynia isnot present. Hyperalgesia is not present. Gait/Station - Normal Gait Unable to walk on toes or heels Diagnostic Tests: Most recent Lumbar Spine MRI was completed on 05/18/2023 at Outside Facility [facility] . In addition to the formal radiology read, I independently reviewed the imaging and shared my interpretation with the patient. The impression is: Degenerative and postsurgical changes at L5-S1. Severe left neural foraminal narrowing at this level. Bilateral L5 pars defect. Slight L5-S1 spondylolisthesis. Facet changes bilaterally with left laminectomy. Mild narrowing of the transverse dimension of the canal. Severe left and mild right neural foraminal narrowing. Assessment: Aydee Johns is a 59 y.o. female with a PMH mentioned above who [facility] for consultation regarding lumbar radiculopathy. 1. Radiculopathy of lumbar region Summary of Conservative Treatment Response: The patient reports that the home exercise program, and conservative treatment prescribed thus far is providing partial improvement but the patient has not achieved functional goals of treatment. Plan/Recommendations: We reviewed etiology, predisposing factor(s), natural course, imaging results as well as treatment options including medications, physical therapy/exercise, therapeutic injections, and surgery. The risks, consequences, alternatives, and benefits of various treatment options were discussed with the patient in great detail. We have discussed and recommended the following: Thorough discussion regarding SCS with the patient involving attending. - Medications: No new prescription at this time. Patient will continue current medications. - Imaging: No new imaging is indicated at this time. - Activity: as tolerated - Follow-up: She is understanding that she will follow up with us after we obtain medical records regarding the previous injections from Dr. Méndez. Thank you for allowing us the opportunity to participate in Aydee Johns's care. Debbie Bowles, DO Assessment and plan discussed with the attending physician Dr. Martin. I have seen the patient and reviewed Dr. Bowles's above history and I agree with the details as written. The assessment and plan were formulated in discussion with me and I agree with them as documented. Kenneth Martin MD Attending Physician [facility] [place] [address] / CC: Minnie Muñoz APRN [facility] [place] [address] documented in this encounter Plan of Treatment Not on file documented as of this encounter Goals Goal Patient Goal Type Associated Problems Recent Progress Patient-Stated? Author Nutrition - 12/28/21 Lifestyle No Codie eWinberg MD Note: Nutrition Goals: Continue exercise routine [...] encounter Visit Diagnoses Diagnosis Radiculopathy of lumbar region- Primary Thoracic or lumbosacral neuritis or radiculitis, unspecified documented in this encounter Care Teams Repair Servicer Relationship Specialty Start Date End Date Justin Juarez MD PCP - General Family Medicine 12/29/22 documented as of this encounter
--- OUTSIDE RECORDS SUMMARY | 2024-02-13 16:34 | XMS_ITS | Encounter Summary ---
[place] [address] Care Team Providers Care Financial Dealers Name Role Phone Justin Juarez MD Primary Care Provider [phone] Reason for Visit * Reason Comments Back Pain Neck * Consultation (Routine) - Closed Specialty Diagnoses / Procedures Referred By Contac t Referred To Contact Pain and Spine Center Diagnoses Other cervical disc disorders at C6-C7 level Thoracic disc herniation Thoracic back pain, unspecified back pain laterality, unspecified chronicity Cervical/thoracic disc protrusion/CT (t) 09/18/[address] (c) 11/08/22 @ [place]/surgical vs SCS FVE SPLUNK CONSULTANT Jacey Amador, JL [facility] [place] [address] [place] [address] [facility] [place] [address] Referral ID Status Reason Start Date Expiration Date V isits Requested Visits Authorized [id number] Closed Consult, Test & Treat PCP Updated and/or Approved 12/04/2022 12/04/2023 1 1 Encounter Details Date Type Department Care Team (Late st Contact Info) Description 03/13/2023 3:15 PM EST Office Visit [place] [address] Minnie Muñoz APRN [facility] [place] [address] Radicular pain of left lower extremity Social [...] this encounter Progress Notes * Minnie Muñoz, MUSEUM SERVICE SCHEDULER - 03/13/2023 3:15 PM EST Images from the original note were not included. 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 year-old female who presents to the [facility] clinic With low back pain and lateral leg pain. Saw her I had ordered that she had a trial of an epidural steroid injection and that never happeneduntil she saw Dr. Henriquez not at [facility] at the end of [...] in Aydee Johns's care. Minnie Muñoz, MS, STRATEGIC ACCOUNT MANAGER-BC, MUSEUM SERVICE SCHEDULER Nurse practitioner Pain management [facility] documented in this encounter Plan [...] unspecified documented in this encounter Care Teams Financial Dealers Relationship Specialty Start Date End Date Justin Juarez MD PCP - General Family Medicine 12/29/22 documented as of this encounter
--- OUTSIDE RECORDS SUMMARY | 2024-02-13 16:34 | XMS_ITS | Encounter Summary ---
[place] [address] Care Team Providers Care Meters Superintendent Name Role Phone Justin Juarez MD Primary Care Provider [phone] Encounter Details Date Type Department Care Team (Latest Contact Info) Description 01/23/2024 Travel Social History Tobacco Use Types Packs/Day [...] on filedocumented in this encounter Care Teams Meters Superintendent Relationship Specialty Start Date End Date Justin Juarez MD PCP - General Family Medicine 12/29/22 documented as of this encounter
--- OUTSIDE RECORDS SUMMARY | 2024-02-13 16:35 | XMS_ITS | Encounter Summary ---
Author Organization [facility] [place] [address] Care Team Providers Care Shrink Pit Supervisor Name Role Phone Glenys Hernandez APRN Primary Care Provider [phone] Encounter Details Date Type Department Care Team ([facility] st Contact Info) Description 12/26/2021 Telephone Weight and Wellness at [address] [phone] Светлана Villasenor, NUCLEAR FUEL PROCESSING TECHNICIAN Social History Tobacco Use Types Packs/Day Years [...] Notes * Telephone Encounter - Светлана Villasenor NUCLEAR FUEL PROCESSING TECHNICIAN - 12/26/2021 4:02 PM EDT [facility] Buttermaker Helper Pre-telemedicine Visit Phone Note Aydee Johns 1965 [x] Patient was not reached Patient was reached and the following information was reviewed/obtained per protocol: [] Confirmed patient name and date of [] Confirmed ZOOM downloaded and functioning [] ZOOM appointment link sent if no MyDH [] Phone number to be reached is: [phone] REVIEW: [] Review of patient medications completed [...] on filedocumented in this encounter Care Teams Shrink Pit Supervisor Relationship Specialty Start Date End Date Glenys Hernandez APRN [address] [place] [address] PCP - General Family Medicine 09/26/21 12/28/22 documented as of this encounter
--- OUTSIDE RECORDS SUMMARY | 2024-02-13 16:35 | XMS_ITS | Encounter Summary ---
Author Organization [place] [address] Care Team Providers Care Chemical Checker Name Role Phone JAY Ann, Cassidy Primary Care Provider [phone] Reason for Referral * MRI/CAT Scan - Specialty Diagnoses / Procedures Referred By Contac t Referred To Contact Procedures NM myocardial perfusion - stress & rest Christian Pineda Jr., MD [address] [place] [address] Referral ID Status Reason Start Date Expiration Date V isits Requested Visits Authorized [id number] 01/04/2015 07/03/2015 1 1 Reason for Visit * Reason Comments Chest Pain Encounter Details Date Type Department Care Team (Late st Contact Info) Description 01/04/2015 9:00 AM EDT Procedure visit [facility] [address] [place] [address] Christian Pineda Jr., MD [address] [place] [address] Non-cardiac chest pain Social History Tobacco Use [...] Lexiscan MIBI Stress Test- Final Report ?Aydee Yonis Johns 1965 [facility], [address] [place] [address] Primary Physician: JAY NGUYEN (General) ? Indication: [...] Spect-normal Electronically signed: Christian Pineda Jr, MD [facility] ??Date: 01/04/2015 Historical Provider MD HAN NM ORDERABLES documented in this encounter Visit Diagnoses Diagnosis Non-cardiac chest pain Other chest pain documented in this encounter Care Teams Chemical Checker Relationship Specialty Start Date End Date Cassidy Ware PA PCP - General 09/04/14 08/26/15 documented as of this encounter
--- OUTSIDE RECORDS SUMMARY | 2024-02-13 16:35 | XMS_ITS | Encounter Summary ---
Author Organization [facility] [place] [address] Care Team Providers Care Elementary Art Teacher Name Role Phone Nick Menendez MD Primary Care Provider [phone] Reason for Visit * Auth/Cert Specialty Diagnoses / Procedures Referred By Contac t Referred To Contact Diagnoses SPONDYLOSIS, FORAMINAL STENOSIS Procedures PRO LAMINEC/FACETECT/FORAMIN, LUMBAR 1 SEG PRO LAMINEC/FACETECT/FORAMIN, EACH ADDNL LAMINECTOMY, FACETECTOMY & FORAMINOTOMY,LUMBAR, ONE LEVEL (WRVU 15.37) ADD'L INTERSPACES CX., THORACIC, LUMBAR (WRVU 3.47) Referral ID Status Reason Start Date Expiration Date Visits Re quested Visits Authorized [id number] 1 1 Encounter Details Date Type Department Care Team ([facility] Contact Info) Description 08/31/2020 10:19 AM EDT Anesthesia Event [facility] [place] [address] Juan David Crawford CRNA Anesthesia Record Procedure [...] - Single Lumen 08/31/20; 0955; (R forearm); vqgq-izr-taynlk catheter system; 20 gauge; Lucio Sharif; 01/12/21 (LDA Cleanup utility RA#[id number]); 1649 (LDA Cleanup utility RA#[id number]) 08/31/20 0955 by Parminder Sharif RN 01/12/21 1650 by Nic Ruiz (RETIRED) Peripheral IV Line - Single Lumen 08/31/20; 0958; basilic vein (medial side of arm), right; pyjp-rcp-xddfjk catheter system; Anatomical Landmarks; 20 gauge; Julien Herron Rn; distraction; 01/12/21 (LDA Cleanup utility RA#[id number]); 1649 (LDA Cleanup utility RA#[id number]) 08/31/20 0958 by Priti Kilgore RN 01/12/21 1650 by Nic Ruiz ETT Mask Ventilation: Adjunct (2); ETT Type: Cuffed, Oral; ETT Size: 7 mm; Indirect: Video; Notes: Asleep, Pre-O2, Cricoid Pressure, Stylette; Attempts: 1; Laryngoscopy Grade: 1; ETT Placement Verified By: Auscultation, Capnometry, Visual; Secured at Teeth: 22 cm; Inserted by: Aleta Crawford CRNA; Removal Date: 08/31/20; Removal Time: 1155 08/31/20 1030 by Juan David Crawford MIXING HOUSE OPERATOR 08/31/20 1155 by Juan David Crawford, ELIAS [...] Procedure Summary Date: 08/31/20 Room / Location: [facility] OR Anesthesia Start: 1019 Anesthesia Stop: 1209 Procedure: LAMINECTOMY, FACETECTOMY & FORAMINOTOMY,LUMBAR, ONE LEVEL (WRVU 15.37) (Left Spine Lumbar) Diagnosis: (SPONDYLOSIS, FORAMINAL STENOSIS) Surgeons: Homar Astudillo MD Responsible Provider: Juna David Crawford CRNA Anesthesia Type: general ASA [...] Procedure(s): LAMINECTOMY, FACETECTOMY & FORAMINOTOMY,LUMBAR, ONE LEVEL (VU 15.37) Patient Active Problem List Diagnosis ??? [...] Knee to feet bilaterally secondary to Gilda [place], decreased sensation to kimberly arms as well [...] mg documented in this encounter Care Teams Elementary Art Teacher Relationship Specialty Start Date End Date Nick Menendez MD [address] [address] PCP - General General Internal Medicine 03/06/1608/12 documented as of this encounter
--- OUTSIDE RECORDS SUMMARY | 2024-02-13 16:35 | XMS_ITS | Encounter Summary ---
Author Organization [facility] [place] [address] Care Team Providers Care Legal Entity Controller Name Role Phone Glenys Hernandez APRN Primary Care Provider [phone] Reason for Referral * Consultation (Routine) - Closed Specialty Diagnoses / Procedures Referred By Contac t Referred To Contact Weight and Wellness Diagnoses Class 2 severe obesity with serious comorbidity and body mass index (BMI) of 39.0 to 39.9 in adult, unspecified obesity type Codie Weinberg MD [facility] [place] [address] [facility] [place] [address] Referral ID Status Reason Start Date Expiration Date V isits Requested Visits Authorized [id number] Closed Consult, Test & Treat 10/09/2021 10/09/2022 1 1 * Consultation (Routine) - Closed Specialty Diagnoses / Procedures Referred By Contac t Referred To Contact Sleep Center Diagnoses Class 2 severe obesity with serious comorbidity and body mass index (BMI) of 39.0 to 39.9 in adult, unspecified obesity type Codie Weinberg MD [facility] [place] [address] [facility] [address] [place] [address] Referral ID Status Reason Start Date Expiration Date V isits Requested Visits Authorized [id number] Closed Consult, Test & Treat 10/06/2021 10/06/2022 1 1 Reason for Visit * Consultation (Routine) - Closed Specialty Diagnoses / Procedures Referred By Contac t Referred To Contact Weight and Wellness Diagnoses Morbid (severe) obesity due to excess calories morbid obesity Procedures see notes will need diet and psych Cele Salinas APRN [facility] [place] [address] [facility] [address] [place] [phone] Referral ID Status Reason Start Date Expiration Date V isits Requested Visits Authorized [id number] Closed Consult, Test & Treat 09/20/2021 09/20/2022 1 1 Encounter Details Date Type Department Care Team (Late st Contact Info) Description 10/06/2021 11:00 AM EDT TH Visit (TeleHealth) Weight and Wellness at [facility] [address] [place] [address] Codie Weinberg MD [facility] [address] Class 2 severe obesity with serious comorbidity [...] were not seen in the office, OUR BOAT OPERATOR WILL CALL YOU TO SCHEDULE THESE VISITS. If you donot hear from us within a week, please call us at: [phone]. Below is some additional information/resources on this [...] on all of these pillars, and each residential team leader, will help you set achievable, actionable goals, [...] the disease of obesity) Appetite control The hat sizer, The GoGetter and The Sleepy Executive 720p - Eliza video Sleep apnea and weight https://www.sleepfoundation.org/sleep-apnea/ycdkxy-pali-ykq-sleep-apnea Insulin resistance and weight https://obesitymedicine.org/zdbqipe-xiy-dearhkf-resistance/ https://www.secondnature.io/us/guides/diabetes/fcehgkq-jjvzbpptsn-pattuf-gain Dr. Sony Acuna: Fasting as a Therapeutic Option for Weight Loss - Clear Image TechnologyTube Https://www.Centric Software.com/watch?v=kk8kiqjj3cS https://www.Kabanchikube.com/watch?v=43Net4ZxPYT The Mediterranean Diet https://Bath Planet [employer] [place].org/ https://www.Adlibrium Inc.amherst.edu/blog/g-jqnqdlqbx-gdipx-ir-mju-kfyskpdgomczv-diet- 7231507730780 An important thing to remember as you [...] are significant. If you cannot complete this group home. Bring a log of at least 2 [...] a general recommendation for all patients. Your public health informatician and provider will help make more specific [...] increasing mindfulness throughout the day. Your health trolley coach driver is well-equipped to guide you to find something to look forward to everyday. Eating behaviors: many people benefit from restricting the hours in which they eat. You can choose an eating window of 8-12 hours to start. Make a pact with yourself that you will not take in anything with caloric content outside this window. Your public health informatician may make further recommendations documented in this [...] this video visit, pt is located at: [facility] Patient Name: Aydee Johns Date of : 1965 Age: 56 y.o. Referring provider: Cele Calloway Dear Glenysstella Hernandez APRN, Clara E Spalding Thank you for referring Aydee Johns to the [facility] & Wellness Center. Aydee Johns presented to the [facility] for a consultative visit regarding obesity [...] female with uncontrolled obesity who presented to [facility] today for medical evaluation with associated [...] whole lot of back issues. Since 2011, steadily gained. Why is now the time [...] IFG. No flowsheet data found. 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 [facility] PHQ-2 08/27/2015 Over the LAST 2 [...] Knee to feet bilaterally secondary to Gilda [place], decreased sensation to kimberly arms as well [...] found for: FERRITIN No results found for: RJISGBVL47 No results found for: 25OHVITD Liver Fibrosis [...] spent a total of 45 minutes in spjq-rn-lxco discussion/counseling regarding the diagnosis of obesity, interventions [...] are significant. If you cannot complete this tank terminal gauger. Bring a log of at least 2 weekdays and one weekend day to review. Care pathway: Pathway: [facility] PATHWAY - ADULT 10/09/2021 Pre- Bariatric Surgery Activate I spoke with Aydee about opportunities to participate in research and to be contacted by our research assistant winemaker. They indicated that they are: [] INTERESTED [] NOT INTERESTED // [x] NOT ADDRESSED [facility] Initial Responses 09/26/2021 PHQ-2 SubScore - [...] obesity type Ordered: 10/06/2021 Amb Referral to [facility] Psych Evaluation Outpatient Referral Routine Class [...] hyperglyceridemia documented in this encounter Care Teams Legal Entity Controller Relationship Specialty Start Date End Date Glenys Hernandez APRN [address] [place] [address] PCP - General Family Medicine 09/26/21 12/28/22 documented as of this encounter
--- OUTSIDE RECORDS SUMMARY | 2024-02-13 16:35 | XMS_ITS | Encounter Summary ---
[place] [address] Care Team Providers Care Finisher Plate Name Role Phone JAY Ann Nataliya Primary Care Provider [phone] Encounter Details Date Type Department Care Team ([facility] st Contact Info) Description 01/28/2015 External [place] [address] Provider, Scanning Social History Tobacco Use Types [...] on filedocumented in this encounter Care Teams Finisher Plate Relationship Specialty Start Date End Date Cassidy Ware PA PCP - General 09/04/14 08/26/15 documented as of this encounter
--- OUTSIDE RECORDS SUMMARY | 2024-02-13 16:35 | XMS_ITS | Encounter Summary ---
[place] [address] Care Team Providers Care Compliance And Control Analyst Name Role Phone Glenys Hernandez APRN Primary Care Provider Encounter Details Date Type Department Care Team ([facility] st Contact Info) Description 04/06/2022 Telephone [place] [phone] Suzi Reid Social History Tobacco Use Types [...] on filedocumented in this encounter Care Teams Compliance And Control Analyst Relationship Specialty Start Date End Date Glenys Hernandez, SALES REVIEW CLERK [address] [place] [address] PCP - General Family Medicine 09/26/21 12/28/22 documented as of this encounter
--- OUTSIDE RECORDS SUMMARY | 2024-02-13 16:35 | XMS_ITS | Encounter Summary ---
[place] [address] Care Team Providers Care Container Maker Name Role Phone Glenys Hernandez APRN Primary Care Provider [phone] Encounter Details Date Type Department Care Team ([facility] st Contact Info) Description 12/07/2021 10:30 AM EDT TH Visit (TeleHealth) Weight and Wellness at [facility] [address] [place] [address] [facility] [place] [address] Adult BMI 39.0-39.9 kg/sq m Social History [...] encounter Patient Instructions * Patient Instructions* Sita Sandvoal RD - 12/07/2021 10:30 AM EDT Nutrition Goals: Continue exercise routine - pool 3 times a week for 45 minutes; start recumbent bike when able - easy and slow; Consistent meal routine - 12 hour eating window; 3 eating events spaced every 3- 4 hours; Balanced plate - /2 plate vegetables, 1/4 plate protein, 1/4 plate carbohydrates; ratio 1:2 protein to vegetables; choosing protein at every eating event documented in this encounter Progress Notes * Sita Sandoval RD - 12/07/2021 10:30 AM EDT Nutrition Intervention for Weight Management Initial RD visit with PENNIE Calloway 1965 Telehealth / telephone visit conducted while patient was at home at the following address: [place] [id number] [address] [place] [address] Weight Today: Wt Readings from Last 3 [...] adjust meals See previous notes from this adjusto writer operator and [facility] provider for full account Typical [...] [] Needs additional fuv scheduled with this adjusto writer operator in Return for F/U already scheduled. (OR) [x] Currently scheduled for: [x] 1st consecutive monthly nutrition visit [x] 2nd consecutive monthly nutrition visit [x] 3rd consecutive monthly nutrition visit (OR) [] Patient has met requirement of 3 consecutive monthly nutrition visits but agrees that ongoing support would be helpful and feasible. Above determined to the best ability of this adjusto writer operator. Patient will contact bariatric surgery team [...] adult documented in this encounter Care Teams Container Maker Relationship Specialty Start Date End Date Glenys Hernandez APRN [address] [facility] [address] PCP - General Family Medicine 09/26/21 12/28/22 documented as of this encounter
--- OUTSIDE RECORDS SUMMARY | 2024-02-13 16:35 | XMS_ITS | Encounter Summary ---
Author Organization [facility] [place] [address] Care Team Providers Care Educational Assistant Teacher Name Role Phone Glenys Hernandez APRN Primary Care Provider [phone] Encounter Details Date Type Department Care Team ([facility] st Contact Info) Description 04/17/2022 Telephone Weight and Wellness at [address] [phone] Suzi Reid Social History Tobacco Use Types [...] on filedocumented in this encounter Care Teams Educational Assistant Teacher Relationship Specialty Start Date End Date Glenys Hernandez, JL [address] [facility] [address] PCP - General Family Medicine 09/26/21 12/28/22 documented as of this encounter
--- OUTSIDE RECORDS SUMMARY | 2024-02-13 16:35 | XMS_ITS | Encounter Summary ---
[place] [address] Care Team Providers Care Checkout Operator Name Role Phone Nick Menendez MD Primary Care Provider [phone] Encounter Details Date Type Department Care Team ([facility] st Contact Info) Description 07/11/2016 Telephone [place] [phone] Liz Helm Social History Tobacco Use Types [...] stated that she lost the form to picked edge sewing machine operator her certified letter.. She asked me to [...] on filedocumented in this encounter Care Teams Checkout Operator Relationship Specialty Start Date End Date Nick Menendez MD [address] [place] [address] PCP - General General Internal Medicine 03/06/1608/12 documented as of this encounter
--- OUTSIDE RECORDS SUMMARY | 2024-02-13 16:35 | XMS_ITS | Encounter Summary ---
Author Organization [facility] [place] [address] Care Team Providers Care Automotive Sales Representative Name Role Phone Glenys Hernandez APRN Primary Care Provider [phone] Encounter Details Date Type Department Care Team ([facility] st Contact Info) Description 09/30/2021 External Results Weight and Wellness at [address] [phone] Erin Gaines, RN Social History Tobacco Use [...] Procedure Name Priority Date/Time Associated Diagnosis Comments [facility] EXTERNAL RESULT PANEL Routine 08/29/2021 documented in this encounter Results * (ABNORMAL) [facility] External Results (08/29/2021) Cholesterol, Total 311(H) [...] on filedocumented in this encounter Care Teams Automotive Sales Representative Relationship Specialty Start Date End Date Glenys Hernandez, INDIAN TRADER [address] [place] [address] PCP - General Family Medicine 09/26/21 12/28/22 documented as of this encounter
--- OUTSIDE RECORDS SUMMARY | 2024-02-13 16:35 | XMS_ITS | Encounter Summary ---
[place] [address] Care Team Providers Care College Recruiter Name Role Phone Nick Menendez MD Primary Care Provider [phone] Encounter Details Date Type Department Care Team (Late st Contact Info) Description 01/25/2021 Ancillary Procedure Radiology at [facility] [address] [place] [phone] Homar Astudillo MD [address] [place] [address] Social History Tobacco Use Types Packs/Day Years [...] MR Spine (01/25/2021 12:00 AM EDT) Narrative [facility] RAD - 01/26/2021 9:04 AM EDT This exam is auto-finalizing. It's purpose is for storage only. Homar Astudillo MD IM FILM LIBRARY ORD ERABLES [place], [place] documented in this encounter Visit Diagnoses Not on filedocumented in this encounter Care Teams College Recruiter Relationship Specialty Start Date End Date Nick Menendez MD [address] [place] [address] PCP - General General Internal Medicine 03/06/1608/12 documented as of this encounter
--- OUTSIDE RECORDS SUMMARY | 2024-02-13 16:35 | XMS_ITS | Encounter Summary ---
[place] [address] Care Team Providers Care Wildlife Refuge Specialist Name Role Phone Zoraida Ordoñez MD Primary Care Provider [phone] Reason for Referral * Consultation (Routine) - Closed Specialty Diagnoses / Procedures Referred By Contac t Referred To Contact [facility] Center Diagnoses Sciatica, unspecified laterality Chronic low back pain with sciatica, sciatica laterality unspecified, unspecified back pain laterality Low back & left leg pain/ h/o of lumbar surgery 08/2020w/Pikus/ MRI 01/2021 in e[facility] Harris Poon MD [address] [place] [address] [facility] [place] [address] Referral ID Status Reason Start Date Expiration Date V isits Requested Visits Authorized [id number] Closed Consult, Test & Treat PCP Updated and/or Approved 08/15/2021 08/15/2022 6 6 Encounter Details Date Type Department Care Team (Latest Contact Info) Description 08/15/2021 Transcribe Orders e[facility] Incoming Referrals [phone] Harris Poon MD [address] [place], [place] [id number] Sciatica, unspecified laterality; Chronic low back pain [...] laterality documented in this encounter Care Teams Wildlife Refuge Specialist Relationship Specialty Start Date End Date Zoraida Ordoñez MD [address] [place] [address] PCP - General Family Medicine 08/13/21 09/25/21 documented as of this encounter
--- OUTSIDE RECORDS SUMMARY | 2024-02-13 16:35 | XMS_ITS | Encounter Summary ---
[place] [address] Care Team Providers Care Assembly Technician Name Role Phone Mary Glenys JL Primary Care Provider Reason for Referral * Physical Therapy (Routine) - Closed Specialty Diagnoses / Procedures Referred By Mayda jalloh Referred To Contact Physical Therapy Diagnoses Radicular pain of left lower extremity Minnie Muñoz APRN [facility] [place] [address] Referral ID Status Reason Start Date Expiration Date V isits Requested Visits Authorized [id number] Closed Evaluate and Treat Non PCP 09/26/2021 [...] eD Harris Poon MD [address] [place] [address] [facility] [place] [address] Referral ID Status Reason Start Date Expiration Date V isits Requested Visits Authorized [id number] Closed Consult, Test & Treat PCP Updated and/or Approved 08/15/2021 08/15/2022 6 6 Encounter Details Date Type Department Care Team (Late st Contact Info) Description 09/26/2021 1:15 PM EDT Office Visit [place] [address] Minnie Muñoz APRN [facility] [place] [address] Radicular pain of left lower extremity (Primary [...] the original note were not included. [facility] [...] August 2020 and then she tripped over [facility] and had recurrent leg symptoms. She feels that her symptoms are also associated with some neuropathy in her feet. Pain can be anywhere from 4-10 on a scale of 10. She is done physical therapy locally in [place] chiropractics and Tylenol she would like to [...] Component Summary 21.32 PAST THERAPIES: PT in [place] Chiropractor Tylenol Functional Status Work-- disabled ADL's---difficulty [...] Knee to feet bilaterally secondary to Gilda [place], decreased sensation to kimberly arms as well ??? Obstructive sleep apnea 11/03/2015 ??? Stress disorder, posttraumatic 11/04/2015 Past Surgical History: Past Surgical History: Procedure Laterality Date ??? APPENDECTOMY ??? CHOLECYSTECTOMY ??? COLECTOMY ??? COLONOSCOPY ??? PRO LAMINEC/FACETECT/FORAMIN, LUMBAR 1 SEG Left 08/31/2020 LAMINECTOMY, FACETECTOMY & FORAMINOTOMY,LUMBAR, ONE LEVEL (WRVU 15.37) performed by Homar Astudillo MD at [facility] MAIN OR Review of Systems: Denies fever, [...] y.o. year-old female who presents [facility] the [facility] With low back [...] I also gave her a referral to [facility] where she can do some Nitesh therapy with Ashlyn Butler. She is going to follow-up with me 4 to 6 weeks after her injection. Thank you Dr. Poon for allowing my participation in Aydee Johns's care. Minnie Muñoz, MS, FUNCTIONAL MANAGER-BC, STORE ASSOCIATE Nurse practitioner Pain management [facility] documented in this encounter Plan of Treatment Scheduled Referrals Name Type Priority Associated Diagnoses Orde r Schedule Referral to Physical Therapy Outpatient Referral Routine Radicular pain of left lower extremity Ordered: 09/26/2021 documented as of this encounter Visit Diagnoses Diagnosis Radicular pain of left lower extremity- Primary Thoracic or lumbosacral neuritis or radiculitis, unspecified documented in this encounter Care Teams Assembly Technician Relationship Specialty Start Date End Date Glenys Hernandez APRN [address] [place] [address] PCP - General Family Medicine 09/26/21 12/28/22 documented as of this encounter
--- OUTSIDE RECORDS SUMMARY | 2024-02-13 16:35 | XMS_ITS | Encounter Summary ---
Author Organization [facility] [place] [address] Care Team Providers Care Police Lieutenant Patrol Name Role Phone JAY Ann Nataliya Primary Care Provider [phone] Reason for Visit * Reason Comments Advice Only bbr consult * Consultation (Routine) - Closed Specialty Diagnoses / Procedures Referred By Contac t Referred To Contact Plastic Surgery Diagnoses Macromastia, breast reduction Cassidy Ware PA [address] [place] [address] [facility] [address] [place] [address] Referral ID Status Reason Start Date Expiration Date V isits Requested Visits Authorized [id number] Closed Consult, Test & Treat Connection Center PCP Updated and/or Approved 10/13/2015 10/12/2016 1 1 Encounter Details Date Type Department Care Team ([facility] st Contact Info) Description 10/20/2015 9:30 AM EDT Office [place] [address] Nain Catherine MD [facility] [place] [address] Macromastia Social History Tobacco Use Types Packs/Day [...] appointment. Feel free to call our office [phone] if you have any questions or concerns. [...] correct her physical symptomatolgy. She watched the [employer] video on breast reduction, and was provided [...] surgery is best done at a realistic snf stable weight. We talked about the outpatient [...] revisions for scarring or asymmetry.) Restrepo or [place] Pattern Incision: More scarring on breast, but [...] Timeframe: Elective Procedure: Bilateral breast reduction CPT: 60855 Surgical Technique: Restrepo Surgical site: Breasts Side: Bilateral Anesthesia: General Follow up: 1-3 days for drain removal; 7-10 days for HCK PAT: Needs urine cotinine test in 2 weeks INicolette, am acting as scribe for Dr. Catherine. [...] aspirin products (unless otherwise advised by patient's PCP/Imager for cardiac symptoms), fish oil, Vitamin E [...] breast documented in this encounter Care Teams Police Lieutenant Patrol Relationship Specialty Start Date End Date Cassidy Ware PA PCP - General Family Medicine 10/12/15 03/05/16 documented as of this encounter
--- OUTSIDE RECORDS SUMMARY | 2024-02-13 16:35 | XMS_ITS | Encounter Summary ---
Author Organization [facility] [place] [address] Care Team Providers Care Heel Coverer Name Role Phone JAY Ann, Cassidy Primary Care Provider [phone] Encounter Details Date Type Department Care Team (Latest Contact Info) Description 2015 10:00 AM EDT [place] [address] Stuart Miner MD [facility] [place] [address] Small fiber neuropathy Social History Tobacco Use [...] skin biopsy at the request of Dr. lAlen for question of small fiber neuropathy. Patient [...] PATHOLOGY REPORT Routine 2015 11:24 AM EDT [facility] Routine 2015 10:29 AM EDT [facility] Routine 2015 10:29 AM EDT documented in this encounter Results * Surgical Pathology Report (2015 11:24 AM EDT) Final Diagnosis The signing pathologist has (i) examined the relevant preparation(s) for the specimen(s) and (ii) rendered or confirmed the diagnosis(es). Accession Number: [id number] ?Location: 3C . ? Addendum ADDENDUM DISCUSSION SPECIAL TEST PERFORMED: Test: ??Sweat Gland Nerve Fiber Density Test [facility] Case: ??[id number] Performing Lab: ??[facility] Performing Lab Case: ??[id number] Reported by Aime Gordon MD Date reported: ??02/01/15 Calf skin shows a normal sweat gland nerve fiber density. ??There were no sweat glands in the thigh skin sample. ??For the full text of the [facility] reports please refer to Non- Documentation Pathology in the electronic health record (eDH). 02/02/15 BJ 02/02/15 Verified by: ? Aime Tony MD ?Pathologist ?(Electronic Signature) The attending pathologist whose signature appears on this report has reviewed all diagnostic slides and has edited the gross and/or microscopic portion of the report in rendering the final pathologic diagnosis. ? Addendum ADDENDUM DISCUSSION SPECIAL TEST PERFORMED: Test: ??Epidermal Nerve Fiber Density Test [facility] Case: ??[id number] Performing Lab: ??[facility] Performing Lab Case: ??[id number] Reported by Pelon Bauman MD Date reported: [...] skin punch biopsies which are submitted to [facility] for epidermal nerve fiber density testing. ??See separate report from [facility]. 01/19/15 BJ 01/22/15 Verified by: ? Cecily ANTHONY, Aime Valencia ?Pathologist ?(Electronic Signature) The attending pathologist whose signature appears on this report has reviewed all diagnostic slides and has edited the gross and/or microscopic portion of the report in rendering the final pathologic diagnosis. DISCUSSION No histological studies are performed at [facility] ADDITIONAL STUDIES none CLINICAL INFORMATION Specimen Submitted: A - Right thigh, skin punch B - Right distal leg, skin punch Clinical History: Neuropathy both feet FROZEN SECTION none SPECIMEN PROCESSING Received are 2 skin punch biopsies which are submitted to [facility] for epidermal nerve fiber density testing. GroundWork [address] [place] [address] ??[id number] 02/02/2015 11:43 AM EDT [facility] SPECIMEN FROM SKIN / Unknown 2015 11:24 AM EDT 2015 11:24 AM EDT Stuart Miner MD PATHOLOGY/CYTOLOGY O RDERABLES [facility] [place] [address] * [facility] Sendout (2015 10:29 AM EDT) [facility] Sendout See Note GONZALEZ BUSBY Comment: The ordered test is: Sweat Gland Nerve Fiber Density Test performed by: [facility]; [address] [place] [address] The test result is: Please see scanned report in Chart Review under the Non- Laboratory Heading. Specimen of unknown material (specimen) Other / Unknown 2015 10:29 AM EDT 02/02/2015 10:10 AM EDT Stuart Miner MD LAB SEND OUT ORDERAB LES Performing Organization Address City/[facility] Co de Phone Number GONZALEZ BUSBY * [facility] Sendout (2015 10:29 AM EDT) [facility] Sendout See Note [facility] Comment: The ordered test is: Epidermal Nerve Fiber Density Test performed by: [facility]; [address] [place] [address] The test result is: Please see scanned report in Chart Review under the Non-DH Laboratory Heading. Specimen of unknown material (specimen) Other / Unknown 2015 10:29 AM EDT 2015 11:44 AM EDT Stuart Miner MD LAB SEND OUT ORDERAB LES Performing Organization Address City/[facility] Co de Phone Number GONZALEZ BUSBY documented in this encounter Visit Diagnoses Diagnosis Small fiber neuropathy Unspecified hereditary and idiopathic peripheral neuropathy documented in this encounter Care Teams Heel Coverer Relationship Specialty Start Date End Date Cassidy Ware PA PCP - General 09/04/14 08/26/15 documented as of this encounter
--- OUTSIDE RECORDS SUMMARY | 2024-02-13 16:35 | XMS_ITS | Encounter Summary ---
Author Organization [facility] [place] [address] Care Team Providers Care Home Health Care Physician Name Role Phone Nick Menendez MD Primary Care Provider [phone] Encounter Details Date Type Department Care Team (Late st Contact Info) Description 06/14/2018 Ancillary Procedure Radiology Library at [facility] [place] [place] [address] Nick Menendez MD [address] [place] [address] Social History Tobacco Use Types Packs/Day Years [...] Spine (06/14/2018 12:00 AM EST) Narrative [facility] - 06/21/2018 1:07 PM EDT This exam is auto-finalizing. It's purpose is for storage only. Nick Meenndez MD [facility] FILM LIBRARY ORD ERABLES [place], [place] documented in this encounter Visit Diagnoses Not on filedocumented in this encounter Care Teams Home Health Care Physician Relationship Specialty Start Date End Date Nick Menendez MD [address] [place] [address] PCP - General General Internal Medicine 03/06/1608/12 documented as of this encounter
--- OUTSIDE RECORDS SUMMARY | 2024-02-13 16:35 | XMS_ITS | Encounter Summary ---
[place] [address] Care Team Providers Care Route Inspector Name Role Phone Nick Menendez MD Primary Care Provider [phone] Encounter Details Date Type Department Care Team (Late st Contact Info) Description 07/14/2020 Ancillary Procedure Radiology at [facility] [address] [facility] [place] [id number] Nain Bashir MD [address] [facility] [place] [address] Social History Tobacco Use Types Packs/Day Years [...] MR Spine (07/14/2020 12:00 AM EDT) Narrative [facility] - 07/19/2020 4:36 PM EDT This exam is auto-finalizing. It's purpose is for storage only. Nain Bashir MD IMG FILM LIBRARY OR DERABLES Performing Organization Address City/State/[facility] Co de Phone Number [place], [place] documented in this encounter Visit Diagnoses Not on filedocumented in this encounter Care Teams Route Inspector Relationship Specialty Start Date End Date Nick Menendez MD [address] [place] [address] PCP - General General Internal Medicine 03/06/1608/12 documented as of this encounter
--- OUTSIDE RECORDS SUMMARY | 2024-02-13 16:35 | XMS_ITS | Encounter Summary ---
Author Organization [facility] [place] [address] Care Team Providers Care Secret Code Expert Name Role Phone Nick Menendez MD Primary Care Provider [phone] Reason for Visit * Auth/Cert Specialty Diagnoses / Procedures Referred By Contac t Referred To Contact Diagnoses SPONDYLOSIS, FORAMINAL STENOSIS Procedures PRO LAMINEC/FACETECT/FORAMIN, LUMBAR 1 SEG PRO LAMINEC/FACETECT/FORAMIN, EACH ADDNL LAMINECTOMY, FACETECTOMY & FORAMINOTOMY,LUMBAR, ONE LEVEL (WRVU 15.37) ADD'L INTERSPACES CX., THORACIC, LUMBAR (WRVU 3.47) Referral ID Status Reason Start Date Expiration Date Visits Re quested Visits Authorized [id number] 1 1 Encounter Details Date Type Department Care Team (Latest Contact Info) Description 08/31/2020 9:31 AM EDT - 08/31/2020 1:47 PM EDT Hospital Encounter Post Acute Care Unit at [facility] [address] [place] [address] Homar Astudillo MD [address] [facility] [place] [address] Lumbar spondylosis Discharge Disposition: Home Social History [...] six weeks after surgery with a Physician???s Supervisor Finish End at the surgeon???s office. You will have [...] to stop taking it. ??? Only take [id number]-[id number]-[id number] or prescription medicine for pain, discomfort or [...] If you have any questions, please call [facility] Neurology and Neurosurgery at [phone], during business hours of Sunday through Sunday from 8:00 a.m. until 4:00 p.m. In case of emergency during non-business hours, please call the same main number and follow the prompts to page the neurosurgeon abalone fisherman. SMOKING CESSATION INFORMATION: ??? [place] QUITLINE: ??? [place] QUITLINE: ??? [email or web address] If you smoke, stop now! Smoking may impede healing. MAKE SURE YOU: ??? Understand these instructions. ??? Will seek medical care if you are feeling poor, or get worse. ??? Will call the surgeon???s office with any questions or concerns at : [phone] The above information has been presented or [...] lungs 2 times daily as needed. 08/15/2020 omeprazole (PriLOSEC) 40 mg Capsule, Delayed Release(E.C.) Take 40 mg by mouth daily. 08/15/2020 ascorbic acid (VITAMIN C ORAL) Take 1,000 mg by mouth daily. cholecalciferol, vitD3,/vit K2 (vitamin D3-vitamin K2) 250 mcg (10,000 unit)-45 mcg Capsule Take 1 capsule by mouth daily. valacyclovir HCl (VALACYCLOVIR ORAL) Take 1 tablet by mouth daily as needed. loratadine (Claritin) 10 mg Tablet Take 10 mg by mouth daily as needed. cyclobenzaprine (FLEXERIL) 5 mg Tablet Take 5 mg by mouth daily as needed. 0 08/04/2015 gabapentin 300 mg Tablet Sustained Release 24 hr Take 1,200 mg by mouth 2 times daily. cyanocobalamin, vitamin B-12, (VITAMIN B-12 ORAL) Take by mouth. traMADoL (Ultram) 50 mg Tablet Take 1-2 [...] documented in this encounter H&P Notes * Lyla, Therese M, PA - 08/31/2020 10:13 AM EDT Patient [...] Astudillo MD - 08/31/2020 10:49 AM EDT [facility] [place] [address] Patient Name: Aydee Johns : [id number] MR#: [id number] Case Date: 08/31/2020 Case Scheduled Time: 1053 [...] IMG FLUORO ORDERABLE S Performing Organization Address City/State/[facility] Co de Phone Number [place], [place] documented in this encounter Visit Diagnoses [...] (New Bag - Prov ider: Priti Kilgore, RN)1100 (Due: Stopped - Provider: Priti Kilgore RN) Continuous Medication Order 08/29/2020 08/30/2020 08/31/2020 lactated ringers infusion (CANCELED) 1,000 mL, at 50 mL/hr, Intravenous, CONTINUOUS, Starting on Sun08/31/20 at 1000, Until Sun08/31/20 at 1348, Day of Surgery (Day of Procedure) 1000 (New Bag - Prov ider: Priti Kilgore, STORMY) PRN Medication Order 08/29/2020 08/30/2020 08/31/2020 BUpivacaine [...] MD) documented in this encounter Care Teams Secret Code Expert Relationship Specialty Start Date End Date Nick Menendez MD [address] [address] PCP - General General Internal Medicine 03/06/1608/12 documented as of this encounter
--- OUTSIDE RECORDS SUMMARY | 2024-02-13 16:35 | XMS_ITS | Encounter Summary ---
[place] [address] Care Team Providers Care Soaker Soda Worker Name Role Phone Zoraida Ordoñez MD Primary Care Provider [phone] Reason for Referral * Consultation (Routine) - Closed Specialty Diagnoses / Procedures Referred By Contashu t Referred To Contact General Surgery Diagnoses Weight loss Obesity, unspecified classification, unspecified obesity type, unspecified whether serious comorbidity present Harris Poon MD [address] [place] [address] [facility] Gen Surgery [address] [address] Referral ID Status Reason Start Date Expiration Date V isits Requested Visits Authorized [id number] Closed Consult, Test & Treat PCP Updated and/or Approved 08/15/2021 08/15/2022 6 6 Encounter Details Date Type Department Care Team (Latest Contact Info) Description 08/15/2021 Transcribe Orders eDH Incoming Referrals [phone] Harris Poon MD [address] [place] [address] Weight loss; Obesity, unspecified classification, [...] present documented in this encounter Care Teams Soaker Soda Worker Relationship Specialty Start Date End Date Zoraida Ordoñez MD [address] [place] [address] PCP - General Family Medicine 08/13/21 09/25/21 documented as of this encounter
--- OUTSIDE RECORDS SUMMARY | 2024-02-13 16:35 | XMS_ITS | Encounter Summary ---
Author Organization [facility] [place] [address] Care Team Providers Care Wireline Operator Name Role Phone Nick Menendez MD Primary Care Provider [phone] Encounter Details Date Type Department Care Team ([facility] Contact Info) Description 08/24/2020 9:45 AM EDT Telephone Pre-Admission Testing at [facility] [place] [address] Social History Tobacco Use Types Packs/Day Years [...] []Yes [x]No Have you traveled outside the [facility] in the PAST 14 DAYS? []Yes [...] on filedocumented in this encounter Care Teams Wireline Operator Relationship Specialty Start Date End Date Nick Menendez MD [address] [place] [address] PCP - General General Internal Medicine 03/06/1608/12 documented as of this encounter
--- OUTSIDE RECORDS SUMMARY | 2024-02-13 16:35 | XMS_ITS | Encounter Summary ---
[place] [address] Care Team Providers Care State Highway Police Officer Name Role Phone Glenys Hernandez APRN Primary Care Provider [phone] Reason for Visit * Reason Onset Date Comments Appointment 12/29/2021 Encounter Details Date Type Department Care Team ([facility] Contact Info) Description 12/29/2021 Telephone Weight and Wellness at [address] [address] Suzi Reid Appointment Social History [...] on filedocumented in this encounter Care Teams State Highway Police Officer Relationship Specialty Start Date End Date Glenys Hernandez, JL [address] [place] [address] PCP - General Family Medicine 09/26/21 12/28/22 documented as of this encounter
--- OUTSIDE RECORDS SUMMARY | 2024-02-13 16:35 | XMS_ITS | Encounter Summary ---
Author Organization [facility] [place] [address] Care Team Providers Care Senior Business Process Analyst Name Role Phone Glenys Hernandez APRN Primary Care Provider [phone] Encounter Details Date Type Department Care Team ([facility] st Contact Info) Description 10/05/2021 Telephone Weight and Wellness at [address] [phone] Светлана Villasenor, SENIOR NET SOFTWARE DEVELOPER Social History Tobacco Use Types Packs/Day Years [...] Miscellaneous Notes * Telephone Encounter - Светлана Villasenor, SENIOR NET SOFTWARE DEVELOPER - 10/05/2021 4:04 PM EDT [facility] Sap Data Architect Pre-telemedicine Visit Phone Note Aydee Johns 1965 [x] Patient was not reached Patient was reached and the following information was reviewed/obtained per protocol: [] Confirmed patient name and date of [] Confirmed ZOOM downloaded and functioning [] ZOOM appointment link sent if no MyDH [] Phone number to be reached is: [phone] REVIEW: [] Review of patient medications completed [...] filedocumented in this encounter Care Teams Senior Business Process Analyst Relationship Specialty Start Date End Date Glenys Hernandez, JL [address] [place] [address] PCP - General Family Medicine 09/26/21 12/28/22 documented as of this encounter
--- OUTSIDE RECORDS SUMMARY | 2024-02-13 16:35 | XMS_ITS | Encounter Summary ---
[place] [address] Care Team Providers Care Boat Deckhand Name Role Phone JAY Ann, Cassidy Primary Care Provider [phone] Reason for Visit * Reason Comments Obesity Encounter Details Date Type Department Care Team ([facility] Contact Info) Description 10/26/2015 1:30 PM EDT Office Visit General Surgery at [address] [address] Juan David Mcfarlane MD [address] [place] [address] Morbid obesity due to excess calories; Body [...] I previously met her at a [facility] informational session on 04/26/15. To summarize, Aydee is a 50 y.o. 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 Her Body mass index is36.46 kg/(m^2). (WCS=028fgy, EBW=89lbs). Additional medical problems include obstructive sleep apnea on CPAP, colon polyps, hyperlipidemia, GERD, depression, tobacco abuse, and anxiety. Aydee explainsthat she contracted a viral illness in 2011 while on a trip in [place]. Following that she developedweakness and pain in [...] up with the weight loss program through [facility] and the [facility] to begin the process. She [...] specified documented in this encounter Care Teams Boat Deckhand Relationship Specialty Start Date End Date Cassidy Ware PA PCP - General Family Medicine 10/12/15 03/05/16 documented as of this encounter
--- OUTSIDE RECORDS SUMMARY | 2024-02-13 16:35 | XMS_ITS | Encounter Summary ---
Author Organization [facility] [place] [address] Care Team Providers Care Cruise Coordinator Name Role Phone Nick Menendez MD Primary Care Provider [phone] Reason for Visit * Auth/Cert Specialty Diagnoses / Procedures Referred By Contac t Referred To Contact Diagnoses SPONDYLOSIS, FORAMINAL STENOSIS Procedures PRO LAMINEC/FACETECT/FORAMIN, LUMBAR 1 SEG PRO LAMINEC/FACETECT/FORAMIN, EACH ADDNL LAMINECTOMY, FACETECTOMY & FORAMINOTOMY,LUMBAR, ONE LEVEL (WRVU 15.37) ADD'L INTERSPACES CX., THORACIC, LUMBAR (WRVU 3.47) Referral ID Status Reason Start Date Expiration Date Visits Re quested Visits Authorized [id number] 1 1 Encounter Details Date Type Department Care Team ([facility] Contact Info) Description 08/31/2020 10:53 AM EDT - 08/31/2020 1:06 PM EDT Surgery Operating Room [address] [place] [address] Homar Astudillo MD [address] [place] [address] LAMINECTOMY, FACETECTOMY & FORAMINOTOMY,LUMBAR, ONE LEVEL (WRVU [...] six weeks after surgery with a Physician???s Technology Internship at the surgeon???s office. You will have [...] to stop taking it. ??? Only take xjfk-ycw-tfnlxsd or prescription medicine for pain, discomfort or [...] If you have any questions, please call [facility] Neurology and Neurosurgery at [phone], during business hours of Sunday through Sunday from 8:00 a.m. until 4:00 p.m. In case of emergency during non-business hours, please call the same main number and follow the prompts to page the neurosurgeon manager convention. SMOKING CESSATION INFORMATION: ??? [place] QUITLINE: ??? [place] QUITLINE: ??? [email or web address] If you smoke, stop now! Smoking may impede healing. MAKE SURE YOU: ??? Understand these instructions. ??? Will seek medical care if you are feeling poor, or get worse. ??? Will call the surgeon???s office with any questions or concerns at : [phone] The above information has been presented or [...] Astudillo MD - 08/31/2020 10:49 AM EDT [facility] [place] [address] Patient Name: Aydee Johns : [id number] MR#: [id number] Case Date: 08/31/2020 Case Scheduled Time: 1053 [...] IMG FLUORO ORDERABLE S Performing Organization Address City/State/[facility] Co de Phone Number [place], [place] documented in this encounter Visit Diagnoses [...] for infiltration (CANCELED) ONCE PRN, Starting on 08/31/20 at 1104, Until Sun08/31/20 at 1347, Intra-Operative (Intra-Procedure) 1104 (Given - Provid er: Homar Astudillo MD) documented in this encounter Care Teams Cruise Coordinator Relationship Specialty Start Date End Date Nick eMnendez MD [address] [place] [address] PCP - General General Internal Medicine 03/06/1608/12 documented as of this encounter
--- OUTSIDE RECORDS SUMMARY | 2024-02-13 16:35 | XMS_ITS | Encounter Summary ---
[place] [address] Care Team Providers Care Automatic Transmission Mechanic Name Role Phone JAY Ann Nataliya Primary Care Provider [phone] Encounter Details Date Type Department Care Team ([facility] st Contact Info) Description 02/02/2015 External [place] [address] Provider, Scanning Social History Tobacco Use Types [...] on filedocumented in this encounter Care Teams Automatic Transmission Mechanic Relationship Specialty Start Date End Date Cassidy Ware PA PCP - General 09/04/14 08/26/15 documented as of this encounter
--- OUTSIDE RECORDS SUMMARY | 2024-02-13 16:35 | XMS_ITS | Encounter Summary ---
[place] [address] Care Team Providers Care Library Manager Name Role Phone Zoraida Ordoñez MD Primary Care Provider [phone] Reason for Visit * Consultation (Routine) - Closed Specialty Diagnoses / Procedures Referred By Contashu t Referred To Contact General Surgery Diagnoses Weight loss Obesity, unspecified classification, unspecified obesity type, unspecified whether serious comorbidity present Harris Poon MD [address] [place] [address] [facility] [address] [place] [address] Referral ID Status Reason Start Date Expiration Date V isits Requested Visits Authorized [id number] Closed Consult, Test & Treat PCP Updated and/or Approved 08/15/2021 08/15/2022 6 6 Encounter Details Date Type Department Care Team ([facility] Contact Info) Description 08/22/2021 4:00 PM EDT [place] [address] Social History Tobacco Use Types Packs/Day Years [...] 08/22/2021 4:00 PM EDT Patient attended the [employer] Information Session for the [facility] [facility] on 08/22/2021 documented in this encounter Plan of Treatment Scheduled Referrals Name Type Priority Associated Diagnoses Orde r Schedule Referral to Bariatric Surgery Program Outpatient Referral Routine Weight loss Obesity, unspecified classification, unspecified obesity type, unspecified whether serious comorbidity present Ordered: 08/15/2021 documented as of this encounter Visit Diagnoses Not on filedocumented in this encounter Care Teams Library Manager Relationship Specialty Start Date End Date Zoraida Ordoñez MD [address] [place] [address] PCP - General Family Medicine 08/13/21 09/25/21 documented as of this encounter
--- OUTSIDE RECORDS SUMMARY | 2024-02-13 16:35 | XMS_ITS | Encounter Summary ---
Author Organization [facility] [place] [address] Care Team Providers Care Boiling Off Winder Name Role Phone Glenys Hernandez APRN Primary Care Provider [phone] Encounter Details Date Type Department Care Team ([facility] st Contact Info) Description 03/20/2022 Telephone Weight and Wellness at [address] [phone] Светлана Villasenor, OPTICAL EFFECTS LINE UP PERSON Social History Tobacco Use Types Packs/Day Years [...] Notes * Telephone Encounter - Светлана Villasenor OPTICAL EFFECTS LINE UP PERSON - 03/20/2022 3:49 PM EST [facility] Float Builder Pre-telemedicine Visit Phone Note Aydee Johns 1965 [] Patient was not reached Patient was reached and the following information was reviewed/obtained per protocol: [x] Confirmed patient name and date of [x] Confirmed ZOOM downloaded and functioning [] ZOOM appointment link sent if no MyDH [x] Phone number to be reached is: [phone] REVIEW: [x] Review of patient medications completed [...] on filedocumented in this encounter Care Teams Boiling Off Winder Relationship Specialty Start Date End Date Glenys Hernandez, JL [address] [place] [address] PCP - General Family Medicine 09/26/21 12/28/22 documented as of this encounter
--- OUTSIDE RECORDS SUMMARY | 2024-02-13 16:35 | XMS_ITS | Encounter Summary ---
Author Organization [facility] [place] [address] Care Team Providers Care Manager Talent Name Role Phone Sheila Cosby MD Primary Care Provider [phone] Reason for Visit * Consultation (Routine) - Closed Specialty Diagnoses / Procedures Referred By Contac t Referred To Contact Neurology Diagnoses Unspecified disturbances of skin sensation Other symptoms and signs involving cognitive functions and awareness Chronic pain syndrome Please have patient seen in MS clinic for ? MS Cassidy Ware PA [address] [place] [id number] Justin Mir MD [facility] [place] [address] Referral ID Status Reason Start Date Expiration Date V isits Requested Visits Authorized [id number] Closed PCP Updated and/or Approved 08/23/2015 08/22/2016 1 1 Encounter Details Date Type Department Care Team (Late st Contact Info) Description 08/27/2015 8:30 AM EDT [place] [address] Justin Mir MD [facility] [place] [address] Neuritis Social History Tobacco Use Types Packs/Day [...] Mir MD - 08/27/2015 8:33 AM EDT [id number] 64 minutes Cassidy Ware Dear , Thank you for asking the [facility] to see your patient, Aydee Johns. She is a 50 y.o.woman being seen here to r/o MS. Her symptom is primarily numbness that is everywhere. She came with a list of symptoms, because my memory stinks. She has not worked in two years, because I have nonstop pain and numbness. She has seen in [facility]. She first noted the symptom in 2011. She said that she has had numbness with migraines similar to her current sensations of numbness, but these were usually associated with headahes. In 2011 she had a very severe viral illness contracted in [place], where she lived for 5 months, resulting [...] history, exam, and normal MRIs of the [facility] are consistent with a mild post-infectious neuropathy. [...] a mild myelopathy and the illness in [place] could have triggered a myelitis; if so, cervical spine MRI may reveal a parenchymal lesion, and you may wish to consider ordering this if it has not been performed since 2011. I don't think it needs to be repeated if is correct that it has already been done. MD Damaso Blanchard of Neurology Department of Neurology [facility] [place] [place] [address] At least 40 minutes of this 64 [...] documented in this encounter Care Teams Manager Talent Relationship Specialty Start Date End Date Sheila Cosby MD PCP - General Family Medicine 08/27/15 10/11/15 documented as of this encounter
--- OUTSIDE RECORDS SUMMARY | 2024-02-13 16:35 | XMS_ITS | Encounter Summary ---
[place] [address] Care Team Providers Care Administrative Operations Coordinator Name Role Phone Glenys Hernandez APRN Primary Care Provider [phone] Encounter Details Date Type Department Care Team ([facility] st Contact Info) Description 03/07/2022 Telephone [place] [phone] Zoraida Esc[address]ona RD [facility] [place] [address] Social History Tobacco Use Types Packs/Day Years [...] on filedocumented in this encounter Care Teams Administrative Operations Coordinator Relationship Specialty Start Date End Date Glenys Hernandez APRN [address] [place] [address] PCP - General Family Medicine 09/26/21 12/28/22 documented as of this encounter
--- OUTSIDE RECORDS SUMMARY | 2024-02-13 16:35 | XMS_ITS | Encounter Summary ---
Author Organization [facility] [place] [address] Care Team Providers Care Foot Caster Name Role Phone Gelnys Hernandez APRN Primary Care Provider [phone] Encounter Details Date Type Department Care Team ([facility] st Contact Info) Description 12/27/2021 2:30 PM EDT TH Visit (TeleHealth) Weight and Wellness at [facility] [address] [place] [address] Codie Weinberg MD [facility] DR MICA [facility] [address] Elevated cholesterol; High triglycerides; Obstructive sleep apnea; [...] logging food using an jayesh such as Micreos or TripOvation, paper and pencil is also a good [...] visit, pt is located at: Home in [facility] [place] Patient Name: Aydee Johns Date of : [...] GERD, IFG, migraine. This is Visit #2 [facility] visit for this 56 y.o. patient. 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 Since 2011, steadilygained. Initial weight 10/09/21: 232 lbs 12/27/2021, 231 lbs [facility] Team: Sita Sandoval RD HPI Had [...] day, high pain level, low appetite 2 turkmen sausages with white rice in a tortilla Drinking - coffee with stevia and hazelnut creamer Jaime checklist: + smoker - quit date Sunday No ETOH, no drugs ? PATRICIA - PCP arranging sleep appt No major psych hx No soda drinking Pap 09/2021 [place] scheduled 04/2022 Contraception - abstinence and menopause. AOM: Currently taking: none AOM HX:N/A Medication C/I: Any h/o pancreatitis? NO Any h/o kidney stones? NO Any h/o or FHx of thyroid CA (MTC?) NO Any h/o kidney disease/failure? NO Any h/o glaucoma? YES - had laser procedure ?? Gynecologic: using/taking reliable contraception? Menopause COMORBIDITIES ADDRESSED: PATRICIA + with appliance ([facility]) HTN NO HL YES FLD [...] to sleep med - has worked with [facility] - Dr. West Self-monitoring: Food log Groups of interest: []HLP-ES [] HLP-MS [] HLP-LS []Culinary []ACT []Monthly Lifestyle Classes Discussion 12/27/21: Current pillars reviewed. BSP and requirements discussed. Paperwork reviewed as well. Major barrier is smoking and pt has quit date. Knows to call BS about whether nicotine patches are ok. Will also reach out about PCP letter of support. [facility]WAY - ADULT 10/09/2021 Pre- Bariatric [...] found for: GLUCFASTING No results found for: [id number] No results found for: 25OHVITD No results [...] me. 3 min chart review 30 min [id number] Visit time 5 min Documentation time I [...] type documented in this encounter Care Teams Foot Caster Relationship Specialty Start Date End Date Glenys Hernandez APRN [address] [place] [address] PCP - General Family Medicine 09/26/21 12/28/22 documented as of this encounter
--- OUTSIDE RECORDS SUMMARY | 2024-02-13 16:35 | XMS_ITS | Encounter Summary ---
Author Organization [facility] [place] [address] Care Team Providers Care Fast Food Cashier Name Role Phone JAY Ann, aCssidy Primary Care Provider [phone] Reason for Visit * Reason Onset Date Comments Other 12/25/2014 Encounter Details Date Type Department Care Team ([facility] st Contact Info) Description 12/25/2014 [place] [phone] Song Allen MD [facility] [address] Other Social History Tobacco Use Types Packs/Day [...] doesn't work. Instructed patient that Dr. Allen secretary specialist [facility] will be calling her to set up [...] on filedocumented in this encounter Care Teams Fast Food Cashier Relationship Specialty Start Date End Date Cassidy Ware PA PCP - General 09/04/14 08/26/15 documented as of this encounter
--- OUTSIDE RECORDS SUMMARY | 2024-02-13 16:35 | XMS_ITS | Encounter Summary ---
[place] [address] Care Team Providers Care Laser Beam Trim Operator Name Role Phone JAY Ann, Cassidy Primary Care Provider [phone] Reason for Visit * Reason Onset Date Comments Other 01/24/2016 Other Encounter Details Date Type Department Care Team ([facility] Contact Info) Description 01/24/2016 Telephone [place] [phone] Song Allen MD [facility] [place] [address] Other (Other) Social History Tobacco Use Types [...] / Relation to pt: Caller Contact Number: [phone] Best time to reach pt back: Anytime Reason for call: Patient called in stating the transportation compnay needs the DrLi To fill out a PA for the transportation. Patient states we can call [phone] for more information. Patient states she would [...] on filedocumented in this encounter Care Teams Laser Beam Trim Operator Relationship Specialty Start Date End Date Cassidy Ware PA PCP - General Family Medicine 10/12/15 03/05/16 documented as of this encounter
--- OUTSIDE RECORDS SUMMARY | 2024-02-13 16:35 | XMS_ITS | Encounter Summary ---
Author Organization [facility] [place] [address] Care Team Providers Care Commissioned Sales Associate Name Role Phone JAY Ann, Cassidy Primary Care Provider [phone] Encounter Details Date Type Department Care Team (Latest Contact Info) Description 2015 2:41 PM EDT - 2015 11:59 PM EDT Hospital Encounter [place] [address] [facility] [place] [address] Discharge Disposition: Home Social History Tobacco Use [...] 1,200 mg by mouth 2 times daily. ranitidine (ZANTAC) 150 mg Tablet Take 150 mg by mouth nightly. 08/31/2020 traMADol (ULTRAM) 50 mg Tablet Take 25 mg by mouth nightly. 10/20/2015 documented as of this encounter Plan of Treatment Not on file documented as of this encounter Visit Diagnoses Not on filedocumented in this encounter Care Teams Commissioned Sales Associate Relationship Specialty Start Date End Date Cassidy Ware PA PCP - General 09/04/14 08/26/15 documented as of this encounter
--- OUTSIDE RECORDS SUMMARY | 2024-02-13 16:35 | XMS_ITS | Encounter Summary ---
Author Organization [facility] [place] [address] Care Team Providers Care Aquatic Instructor Name Role Phone Glenys Hernandez APRN Primary Care Provider [phone] Encounter Details Date Type Department Care Team (Late st Contact Info) Description 10/13/2021 Telephone [facility] [place] [phone] Manuela Andrews RN Social History Tobacco Use [...] encounter Miscellaneous Notes * Telephone Encounter - Manueal Andrews RN - 10/13/2021 10:23 AM EDT 10/13/12 10:30 am Faxed MDT PT referral as ordered by Ms Muñoz along with her cliinical note to [facility] PT; [facility] as pt reports she is unable to schedule her therapy because [facility] PT had not recieived the referral. Faxed to [phone] (receipt received). Transferred pt's call to pain [...] on filedocumented in this encounter Care Teams Aquatic Instructor Relationship Specialty Start Date End Date Glenys Hernandez, JL [address] [place] [address] PCP - General Family Medicine 09/26/21 12/28/22 documented as of this encounter
--- OUTSIDE RECORDS SUMMARY | 2024-02-13 16:35 | XMS_ITS | Encounter Summary ---
[place] [address] Care Team Providers Care Pai Gow Manager Name Role Phone Sheila Cosby MD Primary Care Provider [phone] Encounter Details Date Type Department Care Team ([facility] st Contact Info) Description 09/08/2015 [place] [phone] Cassidy Ware PA [address] [place] [address] Social History Tobacco Use Types Packs/Day Years [...] on filedocumented in this encounter Care Teams Pai Gow Manager Relationship Specialty Start Date End Date Sheila Cosby MD PCP - General Family Medicine 08/27/15 10/11/15 documented as of this encounter
--- OUTSIDE RECORDS SUMMARY | 2024-02-13 16:35 | XMS_ITS | Encounter Summary ---
[place] [address] Care Team Providers Care Rn Teacher Name Role Phone Glenys Hernandez APRN Primary Care Provider [phone] Encounter Details Date Type Department Care Team ([facility] st Contact Info) Description 09/20/2021 Telephone Weight and Wellness at [facility] [address] [place] [address] Suzi Reid Social History Tobacco Use [...] filedocumented in this encounter Care Teams Rn Teacher Relationship Specialty Start Date End Date Glenys Hernandez, SAILING OFFICER [address] [place] [address] PCP - General Family Medicine 09/26/21 12/28/22 documented as of this encounter
--- OUTSIDE RECORDS SUMMARY | 2024-02-13 16:35 | XMS_ITS | Encounter Summary ---
Author Organization [facility] [place] [address] Care Team Providers Care Strip Stamp Straightener Name Role Phone Glenys Hernandez APRN Primary Care Provider [phone] Encounter Details Date Type Department Care Team (Latest Contact Info) Description 03/07/2022 11:00 AM EST TH Visit (TeleHealth) Weight and Wellness at [address] [address] Elena Luna, PhD [facility] DR M[address] CHOWDHURY-PSYCHIATRY [place] [id number] Obesity with serious comorbidity, unspecified classification, unspecified [...] [address] RD WEIGHT AND WELLNESS AT [facility] [address] [facility] [address] Dept: [phone] 03/07/2022 9:08 AM Aydee Johns is a 57 y.o. female who was referred for evaluation and preparation for potential bariatric surgery. Aydee was seen for 60 minutes. Patient was alone, and was seen Telehealth. Aydee Johns gave permission for and was seen for today's appointment with a Telehealth visit. During this visit they were located at home in [place]. Aydee Johns is aware that for any urgent matter they can call [phone].. RECOMMENDATION BASED ON PSYCHOLOGICAL EVALUATION YELLOW - [...] time The assessment and plan for Aydee Yonis Johns are detailed at the beginning of [...] type documented in this encounter Care Teams Strip Stamp Straightener Relationship Specialty Start Date End Date Glenys Hernandez, JL [address] [place] [address] PCP - General Family Medicine 09/26/21 12/28/22 documented as of this encounter
--- OUTSIDE RECORDS SUMMARY | 2024-02-13 16:35 | XMS_ITS | Encounter Summary ---
Author Organization [facility] [place] [address] Care Team Providers Care Lathmaker Name Role Phone Glenys Hernandez APRN Primary Care Provider [phone] Encounter Details Date Type Department Care Team [...] on filedocumented in this encounter Care Teams Lathmaker Relationship Specialty Start Date End Date Glenys Hernandez, JL [address] [place] [address] PCP - General Family Medicine 09/26/21 12/28/22 documented as of this encounter
--- OUTSIDE RECORDS SUMMARY | 2024-02-13 16:35 | XMS_ITS | Encounter Summary ---
Author Organization [facility] [place] [address] Care Team Providers Care Emerging Technologies Director Name Role Phone JAY Ann, Cassidy Primary Care Provider [phone] Encounter Details Date Type Department Care Team ([facility] Contact Info) Description 02/22/2015 2:30 PM EST [place] [address] Song Allen MD [facility] [place] [address] Chronic pain; Bilateral leg paresthesia Social History [...] sleep apnea. She said she saw a grinding room supervisor locally through her PCP. She said she [...] History: She lives with her cousin in [place]. She does not currently work due to pain. She says she is looking into getting disability. She has been denied. She smokes a pack a day. She does not drink alcohol. 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 On [...] the lower extremities in the past through [facility] was unremarkable. Per my previous note, [...] question of fibromyalgia. She could see her grinding room supervisor locally or we could always get a Rheumatology opinion here at [facility] for her chronic pain and question Fibromyalgia [...] sensation documented in this encounter Care Teams Emerging Technologies Director Relationship Specialty Start Date End Date Cassidy Ware PA PCP - General 09/04/14 08/26/15 documented as of this encounter
--- OUTSIDE RECORDS SUMMARY | 2024-02-13 16:35 | XMS_ITS | Encounter Summary ---
[place] [address] Care Team Providers Care Office Agent Name Role Phone Nick Menendez MD Primary Care Provider [phone] Encounter Details Date Type Department Care Team ([facility] Contact Info) Description 08/27/2020 External Results Pre-Admission Testing at [facility] [address] [place] [phone] Social History Tobacco Use Types Packs/Day Years [...] Scan Doc: Lab (08/23/2020) Historical Provider MD QUINTANILLA MGR SCAN EX T ORDR/RSLT * Scan Doc: ECG (08/23/2020) Historical Provider MD QUINTANILLA MGR SCAN EX T ORDR/RSLT documented in this encounter Visit Diagnoses Not on filedocumented in this encounter Care Teams Office Agent Relationship Specialty Start Date End Date Nick Menendez MD [address] [place] [address] PCP - General General Internal Medicine 03/06/1608/12 documented as of this encounter
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
--- OUTSIDE RECORDS SUMMARY | 2024-02-13 16:35 | XMS_ITS | Encounter Summary ---
Author Organization [facility] [place] [address] Care Team Providers Care Commissary Representative Name Role Phone Glenys Hernandez APRN Primary Care Provider [phone] Encounter Details Date Type Department Care Team ([facility] st Contact Info) Description 12/29/2021 External Results Weight and Wellness at [facility] [address] [place] [phone] Erin Gaines, RN Social History Tobacco Use [...] Procedure Name Priority Date/Time Associated Diagnosis Comments [facility] EXTERNAL LABS 2 Routine 12/22/2021 documented in this encounter Results * (ABNORMAL) [facility] Labs 2 - External (12/22/2021) Hemoglobin A1c 5.9(H) Glucose Fasting 103 Vitamin D Total 25 OH 19.1(L) Thyroid Stimulating Hormone 0.93 Insulin 15.1 Ferritin 120 Iron 76 12/22/2021 Historical Provider EXTERNAL LAB [facility]A MENDOZA documented in this encounter Visit Diagnoses Not on filedocumented in this encounter Care Teams Commissary Representative Relationship Specialty Start Date End Date Glenys Hernandez APRN [address] [place] [address] PCP - General Family Medicine 09/26/21 12/28/22 documented as of this encounter
--- OUTSIDE RECORDS SUMMARY | 2024-02-13 16:35 | XMS_ITS | Encounter Summary ---
[place] [address] Care Team Providers Care Hyperion Essbase Developer Name Role Phone FiorGlenys reed JL Primary Care Provider [phone] Encounter Details Date Type Department Care Team ([facility] st Contact Info) Description 03/09/2022 Telephone [place] [address] Cele Calloway APRN [facility] [place] [address] Social History Tobacco Use Types Packs/Day Years [...] on filedocumented in this encounter Care Teams Hyperion Essbase Developer Relationship Specialty Start Date End Date Glenys Hernandez APRN [address] [address] PCP - General Family Medicine 09/26/21 12/28/22 documented as of this encounter
--- OUTSIDE RECORDS SUMMARY | 2024-02-13 16:35 | XMS_ITS | Encounter Summary ---
[place] [address] Care Team Providers Care Brass Chaser Name Role Phone Glenys Hernandez APRN Primary Care Provider [phone] Encounter Details Date Type Department Care Team ([facility] Contact Info) Description 12/28/2021 10:30 AM EDT TH Visit (TeleHealth) Weight and Wellness at [facility] [address] [place] [address] [facility] [place] [address] Adult BMI 39.0-39.9 kg/sq m Social History [...] was at home at the following address: [address] [place] [address] Weight Today: Wt Readings from Last 3 Encounters: 12/27/21 104.8 kg (231 lb) 10/06/21 105.2 kg (232 lb) 09/26/21 104.3 kg (230 lb) BMI Readings from Last 3 Encounters: 12/27/21 39.65 kg/m?? 10/06/21 39.82 kg/m?? 09/26/21 39.48 kg/m?? Interview: hard - eating during pain; increased water - very little; occasional smoothie; Weight Loss History: See previous notes from this tag writer and [facility] provider for full account Typical Dietary Intake: [...] [x] Needs additional fuv scheduled with this tag writer in Return in about 2 months (around 02/27/2022)for Paula CHOWDHURY. (OR) [x] Currently scheduled for: [x] 1st consecutive monthly nutrition visit [x] 2nd consecutive monthly nutrition visit [x] 3rd consecutive monthly nutrition visit (OR) [] Patient has met requirement of 3 consecutive monthly nutrition visits but agrees that ongoing support would be helpful and feasible. Above determined to the best ability of this tag writer. Patient will contact bariatric surgery team for any official determination about about scheduling and insurance requirements ( ) Thank you Sita Sandoval MS RDN LD 30 minutes were spent in [...] adult documented in this encounter Care Teams Brass Chaser Relationship Specialty Start Date End Date Glenys Hernandez APRN [address] [place] [address] PCP - General Family Medicine 09/26/21 12/28/22 documented as of this encounter
--- OUTSIDE RECORDS SUMMARY | 2024-02-13 16:35 | XMS_ITS | Encounter Summary ---
[place] [address] Care Team Providers Care Truss Designer Name Role Phone Nick Menendez MD Primary Care Provider [phone] Encounter Details Date Type Department Care Team ([facility] st Contact Info) Description 03/06/2016 External Results [place] [address] Song Allen MD [facility] [place] [address] Social History Tobacco Use Types Packs/Day Years [...] on filedocumented in this encounter Care Teams Truss Designer Relationship Specialty Start Date End Date Nick Menendez MD [address] [place] [address] PCP - General General Internal Medicine 03/06/1608/12 documented as of this encounter
--- OUTSIDE RECORDS SUMMARY | 2024-02-13 16:35 | XMS_ITS | Encounter Summary ---
Author Organization [facility] [place] [address] Care Team Providers Care Power Chisel Operator Name Role Phone FiorGlenys reed PLANT AND MAINTENANCE TECHNICIAN Primary Care Provider [phone] Encounter Details Date Type Department Care Team (Late st Contact Info) Description 11/17/2021 Telephone [place] [address] Isatu Serna RN Social History Tobacco Use [...] triage phone line by Ashlyn Nunez from [facility]. She wanted to get a message to Minnie Muñoz APRN regarding Aydee. Per the message that Ashlyn left, Aydee attended one of the PT therapy sessions that was set up for her (referral from Ms. Toni APRN). When Aydee found out that the PT was for Nitesh technique, she refused to participate. She went for the evaluation, then called the [facility] rehab and said she won'tbe coming back. If we have any questions we can call Ashlyn at [phone] Milagros RN documented in this encounter Plan [...] filedocumented in this encounter Care Teams Power Chisel Operator Relationship Specialty Start Date End Date Glenys Hernandez APRN [address] [place] [address] PCP - General Family Medicine 09/26/21 12/28/22 documented as of this encounter
--- OUTSIDE RECORDS SUMMARY | 2024-02-13 16:35 | XMS_ITS | Encounter Summary ---
[place] [address] Care Team Providers Care Activity Therapy Specialist Name Role Phone Glenys Hernandez APRN Primary Care Provider [phone] Encounter Details Date Type Department Care Team ([facility] st Contact Info) Description 04/17/2022 Telephone [place] [address] Meghna Agee Social History Tobacco Use Types [...] on filedocumented in this encounter Care Teams Activity Therapy Specialist Relationship Specialty Start Date End Date Glenys Hernandez APRN [address] [place] [address] PCP - General Family Medicine 09/26/21 12/28/22 documented as of this encounter
--- OUTSIDE RECORDS SUMMARY | 2024-02-13 16:35 | XMS_ITS | Encounter Summary ---
[place] [address] Care Team Providers Care Airborne Electronics Analyst Name Role Phone Glenys Hernandez APRN Primary Care Provider [phone] Encounter Details Date Type Department Care Team ([facility] Contact Info) Description 01/25/2022 10:30 AM EDT TH Visit (TeleHealth) Weight and Wellness at [facility] [address] [place] [address] [facility] [place] [address] Adult BMI 39.0-39.9 kg/sq m Social History [...] was at home at the following address: [address] [place] [address] Weight Today: Wt Readings from Last 3 [...] Loss History: See previous notes from this contract technical writer and [facility] provider for full account Smoking: quit 01/01/22; [...] [x] Needs additional fuv scheduled with this contract technical writer in Return in about 1 month [...] determined to the best ability of this contract technical writer. Patient will contact bariatric surgery team [...] adult documented in this encounter Care Teams Airborne Electronics Analyst Relationship Specialty Start Date End Date Glenys Hernandez APRN [address] [place] [address] PCP - General Family Medicine 09/26/21 12/28/22 documented as of this encounter
--- OUTSIDE RECORDS SUMMARY | 2024-02-13 16:35 | XMS_ITS | Encounter Summary ---
Author Organization [facility] [place] [address] Care Team Providers Care Truck Leasing Manager Name Role Phone Nick Menendez MD Primary Care Provider [phone] Reason for Visit * Auth/Cert Specialty Diagnoses / Procedures Referred By Contac t Referred To Contact Diagnoses SPONDYLOSIS, FORAMINAL STENOSIS Procedures PRO LAMINEC/FACETECT/FORAMIN, LUMBAR 1 SEG PRO LAMINEC/FACETECT/FORAMIN, EACH ADDNL LAMINECTOMY, FACETECTOMY & FORAMINOTOMY,LUMBAR, ONE LEVEL (WRVU 15.37) ADD'L INTERSPACES CX., THORACIC, LUMBAR (WRVU 3.47) Referral ID Status Reason Start Date Expiration Date Visits Re quested Visits Authorized [id number] 1 1 Encounter Details Date Type Department Care Team ([facility] Contact Info) Description 08/31/2020 9:40 AM EDT Ancillary Procedure Radiology Xray at [facility] [address] Social History Tobacco Use Types Packs/Day Years [...] Homar Astudillo MD IMG FLUORO ORDERABLE [place], [place] documented in this encounter Visit Diagnoses Not on filedocumented in this encounter Care Teams Truck Leasing Manager Relationship Specialty Start Date End Date Nick Menendez MD [address] [place] [address] PCP - General General Internal Medicine 03/06/1608/12 documented as of this encounter
--- OUTSIDE RECORDS SUMMARY | 2024-02-13 16:36 | XMS_ITS | Encounter Summary ---
Author Organization [facility] Address [address] [place] [address] Care Team Providers Care Dental Equipment Installer And Servicer Name Role Phone Jennifer Sr MD Primary Care Provider [phone] Reason for Visit * Reason Onset Date Comments Appointment Related 07/22/2019 Encounter Details Date Type Department Care Team ([facility] st Contact Info) Description 07/22/2019 Telephone [facility] Interventional Pain [address] [place], [place] [id number] Ann-Marie Macias MD [address] [place], [place] [id number] Appointment Related Social History Tobacco Use Types [...] 08/22/2019 due to the [place] Virus per [facility] Protocols. documented in this encounter Plan of Treatment Upcoming Encounters Date Type Department Care Team (Late st Contact Info) Description 04/21/2024 15:00 EST Office Visit [facility] Neurology - S [address] [id number] Robby Abraham MD [address] [place] [address], [address] [place] [address] documented as of this encounter Visit Diagnoses Not on filedocumented in this encounter Care Teams Dental Equipment Installer And Servicer Relationship Specialty Start Date End Date Jennifer Sr MD [address], [address] [id number] PCP - General 12/03/18 08/29/22 documented as of this encounter
--- OUTSIDE RECORDS SUMMARY | 2024-02-13 16:36 | XMS_ITS | Encounter Summary ---
Author Organization [facility] Address [address] [place] [address] Care Team Providers Care Cloth Bolt Bander Name Role Phone Jennifer Sr MD Primary Care Provider [phone] Jacey Amador Primary Care Provider [phone] Encounter Details Date Type Department Care Team ([facility] Contact Info) Description 12/22/2021 Lab Requisition [facility] Pathology & Laboratory Medicine - [address] [address] Outr Resulting Lab, Provider Social History Tobacco [...] 04/21/2024 15:00 EST Office Visit [facility] Neurology - S [place] [address] [place] [address] Robby Abraham MD [address] [place] [address], [address] [place] [address] documented as of this encounter Procedures Procedure Name Priority Date/Time Associated Diagnosis Comments PTH INTACT Routine 12/22/2021 12:25 EDT INSULIN Routine 12/22/2021 12:25 EDT documented in this encounter Results * PTH INTACT (12/22/2021 12:25 EDT) Intact PTH 56 19 - 88 pg/mL 12/23/2021 9:41 EDT [facility] Blood VENOUS BLOOD / Unknown 12/22/2021 12:25 EDT 12/22/2021 21:08 EDT Provider Outr Resulting Lab CHEMISTRY & BLOOD GAS ORDERABLES [facility] [address] [place] [address] * INSULIN (12/22/2021 12:25 EDT) Insulin 15.1 <29.0 uIU/mL 12/26/2021 9:41 EDT [facility] Comment: Displayed Reference Range applies to fasting specimens only. Blood VENOUS BLOOD / Unknown 12/22/2021 12:25 EDT 12/22/2021 21:08 EDT Provider Outr Resulting Lab CHEMISTRY & BLOOD GAS ORDERABLES [facility] [address] [place] [address] documented in this encounter Visit Diagnoses Not on filedocumented in this encounter Care Teams Cloth Bolt Bander Relationship Specialty Start Date End Date Jennifer Sr MD [address] [place] [address] PCP - General 12/03/18 08/29/22 Jacey Amador FNP [address] [facility] [address] [place] [address] PCP - General Family Medicine - Primary Care 08/30/22 documented as of this encounter
--- OUTSIDE RECORDS SUMMARY | 2024-02-13 16:36 | XMS_ITS | Encounter Summary ---
Author Organization [facility] [place] [address] Care Team Providers Care Canvas Cutter Hand Name Role Phone Unavailable Primary Care Provider Unavailabl e Encounter Details Date Type Department Care Team ([facility] Contact Info) Description 02/13/2007 - 02/13/2007 11:59 PM EST Hospital Encounter Radiology Library at [facility] [place] [phone] Dr Amy Machado Pain Discharge Disposition: Home Social History Tobacco [...] MR Head (02/13/2007 12:00 AM EST) Narrative [facility] - 08/17/2015 8:24 AM EDT This exam is for storage only and is auto-finalizing. Dr Amy Machado IMG FILM LIBRARY ORD ERABLES [place], [place] documented in this encounter Visit Diagnoses Diagnosis Pain Generalized pain documented in this encounter
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
--- OUTSIDE RECORDS SUMMARY | 2024-02-13 16:36 | XMS_ITS | Encounter Summary ---
Author Organization [facility] Address [address] [place] [address] Care Team Providers Care Nutritionist Public Health Name Role Phone Jennifer Sr MD Primary Care Provider [phone] Reason for Visit * Reason Comments Obesity Psych Eval Encounter Details Date Type Department Care Team ([facility] Contact Info) Description 03/10/2019 14:00 EST Office Visit [facility] Bariatric Surgery [facility] [address] [place], [place] [address] Melba Casper, PhD [address] [place] [phone] Adjustment disorder with depressed mood (Primary Dx) [...] Pt is open to guidance from a clam shucking machine tender and stated that she has the time [...] Visit [facility] Neurology - S [address] [address] Robby Abraham MD [address] [place] [address], Level 2 [place] [address] documented as of this encounter Visit Diagnoses Diagnosis Adjustment disorder with depressed mood- Primary documented in this encounter Care Teams Nutritionist Public Health Relationship Specialty Start Date End Date Jennifer Sr MD [facility], [address] [place] [address] PCP - General 12/03/18 08/29/22 documented as of this encounter
--- OUTSIDE RECORDS SUMMARY | 2024-02-13 16:36 | XMS_ITS | Encounter Summary ---
Author Organization [facility] Address [address] [place] [address] Care Team Providers Care Nozzle Cement Sprayer Helper Name Role Phone Jennifer Sr MD Primary Care Provider [phone] Reason for Visit * Reason Onset Date Comments Labs Only 03/05/2019 Lab results [facility] Diagnostic Imaging Report 03/05/2019 [facility] Encounter Details Date Type Department Care Team ([facility] st Contact Info) Description 03/05/2019 Telephone [facility] Neurology - S [place] [address] [place] [id number] Robby Abraham MD [address] [place] [address], Level [address] [place] [address] Labs Only (Lab results [facility] Diagnostic Imaging Report ([facility]) Social History Tobacco Use Types Packs/Day [...] - 03/11/2019 1124 EST Lab results form [facility] also received MRI report form [facility] MR C-spine. They are in Dr. Abraham's Mailbox. documented in this encounter Plan of Treatment Upcoming Encounters Date Type Department Care Team (Late st Contact Info) Description 04/21/2024 15:00 EST Office Visit [facility] Neurology - S [address] [address] Robby Abraham MD [address] [place] [address], Level [address] [place] [address] documented as of this encounter Visit Diagnoses Not on filedocumented in this encounter Care Teams Nozzle Cement Sprayer Helper Relationship Specialty Start Date End Date Jennifer Sr MD [address], [address] [address] PCP - General 12/03/18 08/29/22 documented as of this encounter
--- OUTSIDE RECORDS SUMMARY | 2024-02-13 16:36 | XMS_ITS | Encounter Summary ---
Author Organization [facility] Address [address] [place] [address] Care Team Providers Care Chief Projectionist Name Role Phone Jennifer Sr MD Primary Care Provider [phone] Reason for Referral * Consult (Routine) - Specialty Report Received Specialty Diagnoses / Procedures [facility] Referred To Contact Pain Medicine Diagnoses Chronic bilateral low back pain without sciatica Nick Gomez PA-C [address] [place] [address] [place] [address] [facility] [address] [facility] [place] [address] Referral ID Status Reason Start Date Expiration Date Visits Requested Visits Authorized [id number] Specialty Report Received Specialty Services Required 03/11/2019 [...] Encounter Details Date Type Department Care Team ([facility] st Contact Info) Description 03/11/2019 15:30 EST Office Visit [facility] Spine Program - [address] [place] [address] Nick Gomez PA-C [address] [facility] [place] [address] Chronic bilateral low back pain [...] with 25 minutes of my time spent [id number] discussing symptoms objective complaints and treatment options documented in this encounter Plan of Treatment Upcoming Encounters Date Type Department Care Team (Late st Contact Info) Description 04/21/2024 15:00 EST Office Visit [facility] Neurology - S [address] [address] Robby Abraham MD [address] [place] [address] [address] [place] [address] Scheduled Referrals Name Type Priority Associated Diagnoses Order Schedule AMB CONS/FOLLOW UP PAIN INTERVENTIONAL Outpatient Referral Routine Chronic bilateral low back pain without sciatica Ordered: 03/11/2019 documented as of this encounter Visit Diagnoses Diagnosis Chronic bilateral low back pain without sciatica- Primary documented in this encounter Care Teams Chief Projectionist Relationship Specialty Start Date End Date Jennifer Sr MD [facility] [facility] [address], [address] [address] PCP - General 12/03/18 08/29/22 documented as of this encounter
--- OUTSIDE RECORDS SUMMARY | 2024-02-13 16:36 | XMS_ITS | Encounter Summary ---
[place] [address] Care Team Providers Care Hospice Care Transitions Coordinator Name Role Phone Melina Edge MD Primary Care Provider [phone] Encounter Details Date Type Department Care Team (Late st Contact Info) Description 09/17/2013 Orders [place] [address] [address] [facility] [place] [address] Social History Tobacco Use Types Packs/Day Years [...] on filedocumented in this encounter Care Teams Hospice Care Transitions Coordinator Relationship Specialty Start Date End Date Melina Edge MD [address] [place] [address] PCP - General 05/25/14 07/09/14 documented as of this encounter
--- OUTSIDE RECORDS SUMMARY | 2024-02-13 16:36 | XMS_ITS | Encounter Summary ---
Author Organization [facility] Address [address] [place] [address] Care Team Providers Care Precision Agriculture Technician Name Role Phone Jennifer Sr MD Primary Care Provider [phone] Reason for Visit * Reason Onset Date Comments Other 07/01/2019 Encounter Details Date Type Department Care Team ([facility] Contact Info) Description 07/01/2019 Telephone [facility] Interventional Pain [address] [facility] [place] [address] Stefani Mcclellan MD [address] [facility] [address] [place] [address] Other Social History Tobacco Use [...] Description 04/21/2024 15:00 EST Office Visit [facility] Neurology - S [address] [address] Robby Abraham MD [address] [place] [address], Level [address] [place] [address] documented as of this encounter Visit Diagnoses Not on filedocumented in this encounter Care Teams Precision Agriculture Technician Relationship Specialty Start Date End Date Jennifer Sr MD [address], [address] [address] PCP - General 12/03/18 08/29/22 documented as of this encounter
--- OUTSIDE RECORDS SUMMARY | 2024-02-13 16:36 | XMS_ITS | Encounter Summary ---
Author Organization [facility] Address [address] [place] [address] Care Team Providers Care Specifications Checker Name Role Phone Jennifer Sr MD Primary Care Provider [phone] Reason for Visit * Reason Onset Date Comments Appointment Related 05/02/2019 Encounter Details Date Type Department Care Team ([facility] st Contact Info) Description 05/02/2019 Telephone [facility] Interventional Pain [address] [facility] [place] [address] Ruth Gomez PA-C [address] [facility] [address] [place] [address] Appointment Related Social History Tobacco [...] [facility] Neurology - S [address] [address] Robby Abraham MD [address] [place] [address], Level [address] [place] [address] documented as of this encounter Visit Diagnoses Not on filedocumented in this encounter Care Teams Specifications Checker Relationship Specialty Start Date End Date Jennifer Sr MD [address], [address] [address] PCP - General 12/03/18 08/29/22 documented as of this encounter
--- OUTSIDE RECORDS SUMMARY | 2024-02-13 16:36 | XMS_ITS | Encounter Summary ---
Author Organization [facility] [place] Address [address] [place] [address] Care Team Providers Care Payroll Clerk Name Role Phone Jennifer Sr MD Primary Care Provider [phone] Reason for Visit * Reason Comments Obesity online intro Encounter Details Date Type Department Care Team ([facility] Contact Info) Description 03/04/2019 9:00 EST Education [facility] Bariatric Surgery [place] [address] [place] [address] Obesity, unspecified classification, unspecified obesity type, unspecified [...] [facility] Neurology - [address] [id number] Robby Abraham MD [address] [place] [address], Level 2 [place] [phone] documented as of this encounter Visit Diagnoses Diagnosis Obesity, unspecified classification, unspecified obesity type, unspecified whether serious comorbidity present- Primary documented in this encounter Care Teams Payroll Clerk Relationship Specialty Start Date End Date Jennifer Sr MD [address] [facility], [address] [id number] PCP - General 12/03/18 08/29/22 documented as of this encounter
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
--- OUTSIDE RECORDS SUMMARY | 2024-02-13 16:36 | XMS_ITS | Encounter Summary ---
Author Organization [facility] [place] [address] Care Team Providers Care Adhesive Bonding Machine Operator Name Role Phone Zoraida Ordoñez MD Primary Care Provider [phone] Encounter Details Date Type Department Care Team (Late st Contact Info) Description 05/19/2011 Ancillary Procedure Radiology Library at [facility] [place] [address] Minnie Muñoz APRN [facility] [address] Social History Tobacco Use Types Packs/Day Years [...] DX Spine (05/19/2011 12:00 AM EST) Narrative [facility] - 02/06/2023 9:39 PM EDT This exam is auto-finalizing. It's purpose is for storage only. Minnie Muñoz APRN IMG FILM LIBRARY OR DERABLES [facility] [place], [place] documented in this encounter Visit Diagnoses Not on filedocumented in this encounter Care Teams Adhesive Bonding Machine Operator Relationship Specialty Start Date End Date Zoraida Ordoñez MD [address] [place] [address] PCP - General 04/26/11 05/24/14 documented as of this encounter
--- OUTSIDE RECORDS SUMMARY | 2024-02-13 16:36 | XMS_ITS | Encounter Summary ---
Author Organization [facility] Address [address] [place] [address] Care Team Providers Care Land Surveying Party Chief Name Role Phone Jacey Amador Primary Care Provider [phone] Reason for Referral * PT/OT/ST (Routine/Next Available) - New Request Specialty Diagnoses / Procedures Referred By Mayda jalloh Referred To Contact Diagnoses Muscle tension dysphonia Chronic laryngitis Gastroesophageal reflux disease without esophagitis History of tobacco abuse Aki Rosario MD [address] [place] [address], Level [address] [place] [address] Referral ID Status Reason Start Date Expiration Date Visits Requested Visits Authorized [id number] New Request Specialty Services Required 09/08/2022 1 1 Question Answer Type of WINDOWS DESKTOP ENGINEER Eval: Voice Eval & Treat Reason for [...] resonance disorder Maria Esther Mckoy APRN [address] [place] [address] [place] [address] [place] [address] [place] [address] Referral ID Status Reason Start Date Expiration Date Visits Requested Visits Authorized [id number] Receiving Office to Obtain Authorization 1 1 Encounter Details Date Type Department Care Team (Late st Contact Info) Description 09/08/2022 15:00 EDT Office Visit [facility] ENT- [address] [address] Aki Rosario MD [address] [place] [address], [address] [place] [address] Muscle tension dysphonia (Primary Dx); [...] Heart murmur ??? Hyperlipidemia ??? Neuromuscular disease ([facility]) ??? Sleep apnea ??? SOB (shortness of [...] (shortness of breath) ??? Substance abuse (HCC-CMS) ([facility]) Past Surgical History: Procedure Laterality Date ??? [...] an external referral as she lives in [place] with the closest hospital being [facility]. She wasreassured regarding the absence of [...] [facility] - S [address] [address] Robby Abraham MD [address] [place] [address], Level [address] [place] [phone] Scheduled Referrals Name Type Priority Associated Diagnoses [...] daily. added in this encounter Care Teams Land Surveying Party Chief Relationship Specialty Start Date End Date Jacey Amador FNP Teena HANEY [address] [place] [address] PCP - General Family Medicine - Primary Care 08/30/22 documented as of this encounter
--- OUTSIDE RECORDS SUMMARY | 2024-02-13 16:36 | XMS_ITS | Referral Summary ---
Author Organization [facility] Address [address] [place] [address] Care Team Providers Care Contract Coordinator Name Role Phone Jacey Amador Primary Care Provider [phone] Encounters Date Type Department Care Team Description 11/29/2023 Telephone [facility] Neurology - S [place] [address] [place], [place] [id number] Robby Abraham MD Appointment Related from Last [...] [facility] Neurology - S [address] [address] Robby Abraham MD [address] [place] [address], Level 2 [place] [address] Procedures Procedure Name Priority Date/Time Associated Diagnosis Comments CT CHEST LOW DOSE LUNG SCREENING Routine 05/19/2019 14:44 EST Encounter for screening for lung cancer HEPATITIS C AB W/[place] [facility] Routine 02/28/2019 7:24 EST from Last 3 [...] ORDERABLES * HEPATITIS C AB W/REFLEX - [facility] (02/28/2019 7:24 EST) HEPATITIS C AB W/REFLEX [facility] Negative 02/28/2019 9:16 EST [facility] Comment:Expected Values: Neg ative. 02/28/2019 7:24 EST 02/28/2019 7:24 EST Narrative [facility] - 02/28/2019 9:16 EST Does PT Have a Latex Allergy? NO Robby Abraham MD CHEMISTRY & BLOOD GA S ORDERABLES [facility] from Last 3 Months or Most Recently Relevant to Health Maintenance Care Teams Contract Coordinator Relationship Specialty Start Date End Date Jacey Amador FNP Teena [address]Y [address] [place] [address] PCP - General Family Medicine - Primary Care 08/30/22
--- OUTSIDE RECORDS SUMMARY | 2024-02-13 16:36 | XMS_ITS | Encounter Summary ---
Author Organization [facility] Address [address] [place] [address] Care Team Providers Care Human Development Professor Name Role Phone Jennifer Sr MD Primary Care Provider [phone] Reason for Visit * Reason Comments Back Pain Leg Pain Facial Pain bilateral pain and n umbness. Facial drooping. Pt says affecting her sight Arm Pain left * Consult (Routine) - Specialty Report Received Specialty Diagnoses / Procedures [facility] Referred To Contact Pain Medicine Diagnoses Chronic bilateral low back pain without sciatica Dewayne Gomez PA-C [address] [facility] [place] [address] [facility] [address] [place] [address] Referral ID Status Reason Start Date Expiration Date Visits Requested Visits Authorized [id number] Specialty Report Received Specialty Services Required 03/11/2019 1 1 Encounter Details Date Type Department Care Team (Latest Contact Info) Description 06/16/2019 13:00 EDT Initial consult [facility] Interventional Pain [address] [facility] [place] [address] Ruth Gomez PA-C [address] [facility] [address] [place] [address] Bilateral occipital neuralgia (Primary Dx); [...] Service: 06/13/2019 Have you been seen at [facility] pain clinic before?: Yes If yes, last appointment date: 08/29/2017 What were they seen for at that time: CONSULT BILATERAL FOOT PAIN Referring Physician (for new pts or re-referral):DEWAYNE GOMEZ [[id number]] Most recent note from referring provider related [...] - May have to call imaging facility: [facility] For New Consults, is there any pending Imaging? If in question, ask provider? Previous surgeries on the problem area: 1. NO KNOWN SURGERIES * Ruth Gomez PA-C - 06/16/2019 1300 EDT [facility] OP PAIN CONSULT Patient [...] History: Diagnosis Date ??? Angina at rest ([facility]) ??? Asthma ??? Chronic back pain ??? Chronic neck pain ??? DDD (degenerative disc disease), thoracolumbar ??? Degenerative joint disease ??? Depression ??? Diarrhea ??? Environmental allergies ??? GERD (gastroesophageal reflux disease) ??? Headache(784.0) ??? Heart murmur ??? Hyperlipidemia ??? Neuromuscular disease ([facility]) ??? Seizures (HCC-CMS) ??? SOB (shortness of [...] Visit [facility] Neurology - S [address] [address] Robby Abraham MD [address] [facility], [address] [place] [phone] documented as of this encounter Visit Diagnoses Diagnosis Bilateral occipital neuralgia- Primary Other syndromes affecting cervical region Myofascial pain Mylagia and myositis, unspecified Chronic midline thoracic back pain documented in this encounter Care Teams Human Development Professor Relationship Specialty Start Date End Date Jennifer Sr MD [address], [address] [address] PCP - General 12/03/18 08/29/22 documented as of this encounter
--- OUTSIDE RECORDS SUMMARY | 2024-02-13 16:36 | XMS_ITS | Encounter Summary ---
Author Organization [facility] Address [address] [place] [address] Care Team Providers Care Commissioning Manager Name Role Phone Jennifer Sr MD Primary Care Provider [phone] Encounter Details Date Type Department Care Team (Late Contact Info) Description 02/12/2019 Orders Only [facility] Total Joint Program - [facility] [address] [place] [address] Altagracia Lozano NP [address] [place] [address] Bilateral hip pain (Primary Dx) [...] [facility] Neurology - S [place] [address] [place] [address] Robby Abraham MD [address] [facility], [address] [place] [phone] documented as of this encounter Visit Diagnoses Diagnosis Bilateral hip pain- Primary Pain in joint, pelvic region and thigh documented in this encounter Care Teams Commissioning Manager Relationship Specialty Start Date End Date Jennifer Sr MD [address], [address] [address] PCP - General 12/03/18 08/29/22 documented as of this encounter
--- OUTSIDE RECORDS SUMMARY | 2024-02-13 16:36 | XMS_ITS | Encounter Summary ---
[place] [address] Care Team Providers Care Workers Compensation Administrator Name Role Phone JAY Ann, [place] Primary Care Provider [phone] Encounter Details Date Type Department Care Team ([facility] st Contact Info) Description 09/04/2014 External [place] [address] Song Allen MD [facility] [place] [address] Social History Tobacco Use Types Packs/Day Years [...] on filedocumented in this encounter Care Teams Workers Compensation Administrator Relationship Specialty Start Date End Date Cassidy Ware PA PCP - General 09/04/14 08/26/15 documented as of this encounter
--- OUTSIDE RECORDS SUMMARY | 2024-02-13 16:36 | XMS_ITS | Encounter Summary ---
[place] [address] Care Team Providers Care Wedger Name Role Phone Melina Mcdonald MD Primary Care Provider [phone] Reason for Visit * Reason Onset Date Comments Referral 05/25/2014 Encounter Details Date Type Department Care Team ([facility] st Contact Info) Description 05/25/2014 [place] [address] Linda Cameron Referral Social History Tobacco Use [...] 8:53 AM EST Received 1 page from [facility] XR Report, BILATERAL FEET 03/02/2014 * Telephone Encounter - Linda Cameron - 05/25/2014 11:17 AM EST Ask the patient to verify the following: Full Name: Aydee Johns : 1965 Phone number: [phone] (home) Mailing address: [address] [address] Age: 49 y.o. Appointment date: TBD Appointment [...] When? Where? Who? Notes: [facility] M[facility]ONALD X-rays: Yes - When? Where? Notes: 02/2014 [place], [place] PH: [phone] FAX: [phone] IMG PUSH MRI: No CT Scan: No Physical therapy: No Injection: Yes - When? Where? Who? Notes: 12/2013 [place], [place] [phone] DR JACQUELYN BARRETT Other diagnostic studies: No Other therapies: No Other specialist(s): Yes - What? When? Where? Who? Notes: [facility]ATIONSHIP [facility] 12/2013 [place], [place] [phone] DR JACQUELYN BARRETT If 2nd (+) opinion get info on previous: No Have you had any surgeries for this issue? No Did surgery include placement of implant/hardware or fixation of any kind? No documented in this encounter Plan of Treatment Not on file documented as of this encounter Visit Diagnoses Not on filedocumented in this encounter Care Teams Wedger Relationship Specialty Start Date End Date Melina Mcdonald MD [address] [place] [address] PCP - General 05/25/14 07/09/14 documented as of this encounter
--- OUTSIDE RECORDS SUMMARY | 2024-02-13 16:36 | XMS_ITS | Encounter Summary ---
Author Organization [facility] Address [address] [place] [address] Care Team Providers Care Curer Acid Drum Name Role Phone Jennifer Sr MD Primary Care Provider [phone] Reason for Referral * Radiology Services (Routine) - Closed Specialty Diagnoses / Procedures Referred By Mayda jalloh Referred To Contact Diagnoses Encounter for screening for lung cancer Procedures CT CHEST LOW DOSE LUNG SCREENING Jennifer Sr MD [address] [address] Referral ID Status Reason Start Date Expiration Date Visits Re quested Visits Authorized [id number] Closed 05/19/2019 1 1 Reason for Visit * Radiology Services (Routine) - Closed Specialty Diagnoses / Procedures Referred By Mayda jalloh Referred To Contact Diagnoses Encounter for screening for lung cancer Procedures CT CHEST LOW DOSE LUNG SCREENING Jennifer Sr MD [address] [address] Referral ID Status Reason Start Date Expiration Date Visits Re quested Visits Authorized [id number] Closed 05/19/2019 1 1 Encounter Details Date Type Department Care Team (Latest Contact Info) Description 05/19/2019 14:43 EST - 05/19/2019 23:59 EST Hospital Encounter [facility] Radiology - Main [place] [address] [place] [address] Encounter for screening for lung cancer Discharge [...] Info) Description 04/21/2024 15:00 EST Office Visit [facility] Neurology - S [address] [address] Robby Abraham MD [address] [place] [address], Level [address] [place] [address] documented as of this encounter Procedures Procedure [...] cancer documented in this encounter Care Teams Curer Acid Drum Relationship Specialty Start Date End Date Jennifer Sr MD [address] [place] [address] PCP - General 12/03/18 08/29/22 documented as of this encounter
--- OUTSIDE RECORDS SUMMARY | 2024-02-13 16:36 | XMS_ITS | Encounter Summary ---
Author Organization [facility] Address [address] [place] [address] Care Team Providers Care Women'S Soccer Coach Name Role Phone Jennifer Sr MD Primary Care Provider [phone] Encounter Details Date Type Department Care Team (Late st Contact Info) Description 02/28/2019 Results Only [facility] Neurology - S [address] [id number] Robby Abraham MD [address] [place] [address] [address] [place] [address] Social History Tobacco Use Types [...] Info) Description 04/21/2024 15:00 EST Office Visit [facility] Neurology - S [place] [address] [place] [address] Robby Abraham MD [address] [place] [address], Level [address] [place] [address] documented as of this encounter Procedures Procedure Name Priority Date/Time Associated Diagnosis Comments HEPATITIS C AB W/REFLEX - [facility] Routine 02/28/2019 7:24 EST CRYOGLOBULIN, SERUM Routine 02/28/2019 7 :24 EST HEPATITIS B CORE ANTIBODY (TOTAL) Routine 02/28/2019 7:24 EST ZZVITAMIN B1, THIAMINE Routine 9 7:24 EST MISCELLANEOUS TEST, [place] Routine 02/28/2019 7:17 EST documented in this encounter Results * VITAMIN B1, THIAMINE (02/28/2019 7:24 EST) VITAMIN B1 (THIAMINE) - [facility] 145 70 - 180 nmol/L 03/04/2019 8:08 EST [facility] Comment: ADDITIONAL INFORMATION This test was developed and its performance characteristics determined by [facility] in a manner consistent with CLIA requirements. This test has not been cleared or approved by the U.S. Food and Drug Administration. Test Performed by: [facility] [address] [place] [address] Group Exercise Class Instructor: Aime Craig M.D. Ph.D.; CLIA# [id number] 02/28/2019 7:24 EST 02/28/2019 7:24 EST [facility] - 03/04/2019 8:08 EST Does PT Have a Latex Allergy? NO ORDERED TESTS: [place] ID:[email or web address]/GREEN TOP Robby Abraham MD CHEMISTRY & BLOOD GA S ORDERABLES [facility] * HEPATITIS B CORE ANTIBODY (TOTAL) (02/28/2019 7:24 EST) Hepatitis B Core Ab, Total Negative Negative 03/04/2019 8:08 EST [facility] Comment: Test performed [place] [address] 02/28/2019 7:24 EST 02/28/2019 7:24 EST [facility] - 03/04/2019 8:08 EST Does PT Have a Latex Allergy? NO ORDERED TESTS: [place] ID:[email or web address]/GREEN [place] Robby Abraham MD CHEMISTRY & BLOOD GA S ORDERABLES Performing Organization Address City/[facility]/ZIP Co de Phone Number [facility] * CRYOGLOBULIN, SERUM (02/28/2019 7:24 EST) CRYOGLOBULINS SCREEN - [facility] Negative Negative %ppt 03/04/2019 8:08 EST [facility] Comment: This test is negative at 24 hours. All samples are held and reviewed again at 7 days. If delayed precipitation occurs after 7 days, Immunofixation will be performed and an additional report will follow. Test Performed by: [facility] [address] [place], [place] [id number] Group Exercise Class Instructor: Aime Craig M.D. Ph.D.; CLIA# [id number] 02/28/2019 7:24 EST 02/28/2019 7:24 EST [facility] - 03/04/2019 8:08 EST Does PT Have a Latex Allergy? NO ORDERED TESTS: [place] ID:[email or web address]/GREEN TOP Robby Abraham MD CHEMISTRY & BLOOD GA S ORDERABLES Performing Organization Address City/[facility]/ZIP Co de Phone Number [facility] * HEPATITIS C AB W/REFLEX - [facility] (02/28/2019 7:24 EST) HEPATITIS C AB W/REFLEX - [facility] Negative 02/28/2019 9:16 EST [facility] Comment:Expected Values: Neg ative. 02/28/2019 7:24 EST 02/28/2019 7:24 EST Narrative [facility] - 02/28/2019 9:16 EST Does PT Have a Latex Allergy? NO Robby Abraham MD CHEMISTRY & BLOOD GA S ORDERABLES Performing Organization Address [facility] Co de Phone Number [facility] * MISCELLANEOUS TEST, [place] (02/28/2019 7:17 EST) MISCELLANEOUS TEST - [facility] SEE BELOW () 03/05/2019 20:21 EST [facility] Comment: Test ? Result ??Flag ??Unit ?? RefValue Pyridoxal 5-Phosphate (PLP) ?11 ?mcg/L ??5-50 ??, P ADDITIONAL INFORMATION This test was developed and its performance characteristics determined by [facility] in a manner consistent with CLIA requirements. This test has not been cleared or approved by the U.S. Food and Drug Administration. Test Performed by: [facility] [address] [place] [address] Group Exercise Class Instructor: Aime Craig M.D. Ph.D.; CLIA# [id number] 02/28/2019 7:17 EST 02/28/2019 7:48 EST Robby Abraham MD CHEMISTRY & BLOOD GA S ORDERABLES Performing Organization Address City/State/[facility] Co de Phone Number [facility] documented in this encounter Visit Diagnoses Not on filedocumented in this encounter Care Teams Women'S Soccer Coach Relationship Specialty Start Date End Date Jennifer Sr MD [facility], [address] [address] PCP - General 12/03/18 08/29/22 documented as of this encounter
--- OUTSIDE RECORDS SUMMARY | 2024-02-13 16:36 | XMS_ITS | Encounter Summary ---
[place] [address] Care Team Providers Care Universal Worker Assisted Living Name Role Phone Melina Edge MD Primary Care Provider [phone] Encounter Details Date Type Department Care Team (Late st Contact Info) Description 03/02/2014 Orders [place] [address] Linwood Escoto DPM [facility] [place] [address] Social History Tobacco Use Types Packs/Day Years [...] on filedocumented in this encounter Care Teams Universal Worker Assisted Living Relationship Specialty Start Date End Date Melina Edge MD [address] [place] [address] PCP - General 05/25/14 07/09/14 documented as of this encounter
--- OUTSIDE RECORDS SUMMARY | 2024-02-13 16:36 | XMS_ITS | Encounter Summary ---
Author Organization [facility] Address [address] [place] [address] Care Team Providers Care Stationary Boiler Fireman Name Role Phone Jennifer Sr MD Primary Care Provider [phone] Reason for Visit * Reason Onset Date Comments Appointment Related 06/16/2019 Encounter Details Date Type Department Care Team ([facility] st Contact Info) Description 06/16/2019 Telephone [facility] Interventional Pain [address] [facility] [place] [address] Stefani Mcclellan MD [address] [facility] [address] [place] [address] Appointment Related Social History Tobacco [...] Visit [facility] Neurology - [address] [address] Robby Abraham MD [address] [place] [address] Level 2 [place] [phone] documented as of this encounter Visit Diagnoses Not on filedocumented in this encounter Care Teams Stationary Boiler Fireman Relationship Specialty Start Date End Date Jennifer Sr MD [address] [place] [address] PCP - General 12/03/18 08/29/22 documented as of this encounter
--- OUTSIDE RECORDS SUMMARY | 2024-02-13 16:36 | XMS_ITS | Encounter Summary ---
Author Organization [facility] Address [address] [place] [address] Care Team Providers Care Educational Technology Specialist Name Role Phone Jennifer Sr MD Primary Care Provider [phone] Reason for Visit * Reason Comments Hip Injury bilateral hip pain n o doi/dos Encounter Details Date Type Department Care Team ([facility] st Contact Info) Description 06/03/2019 15:30 EST Office Visit [facility] Total Joint Program - [address] [address] Altagracia Lozano NP [address] [place] [address] Trochanteric bursitis of both hips [...] (acetaminophen) or Advil (ibuprofen) as directed by engineer technical staff if not contraindicated ??? No Swimming for [...] pain does not subside, please call at [phone] and let us know. Our goal is to lessen your pain and improve your function. documented in this encounter Progress Notes * Lauren Robert MA - 06/03/2019 1530 EST Patient had the following injection in to the right hip Bupivacaine HCL inj. 0.5% (10mg/mL) 4CC 6CC WASTE Med lot number: [id number] NDC number:[id number] BUD: NOV 2021 Billet Cutter: [employer] Depo Medrol 40mg/mL 1CC 0CC WASTE Med lot number: [id number] [facility] number: [id number] BUD: 08/26 Billet Cutter: LISSY ROBERT MA 16:09 * Altagracia Lozano [...] prepared with speech recognition software and/or keyboard database modeler techniques. Minor irregularities may be present. Cc: Jennifer Sr Cc: Orin documented in this encounter Plan of Treatment Upcoming Encounters Date Type Department Care Team (Late st Contact Info) Description 04/21/2024 15:00 EST Office Visit [facility] Neurology - [address] [id number] Robby Abraham MD [address] [place] [address], Level 2 [place] [phone] documented as of this encounter Visit Diagnoses Diagnosis Trochanteric bursitis of both hips- Primary Enthesopathy of hip region documented in this encounter Historical Medications * This list may reflect changes made after this encounter. Medication Sig Dispensed Refills Start Date End Date acetaminophen (TYLENOL) 500 mg tablet Take 500 mg by mouth as needed for Pain. added in this encounter Care Teams Educational Technology Specialist Relationship Specialty Start Date End Date Jennifer Sr MD [address] [address], [address] [address] PCP - General 12/03/18 08/29/22 documented as of this encounter
--- OUTSIDE RECORDS SUMMARY | 2024-02-13 16:36 | XMS_ITS | Encounter Summary ---
Author Organization [facility] [place] [address] Care Team Providers Care Investor Relations Manager Name Role Phone Zoraida Ordoñez MD Primary Care Provider Encounter Details Date Type Department Care Team ([facility] st Contact Info) Description 11/27/2013 - 11/27/2013 11:59 PM EDT Hospital Encounter Radiology Library at [facility], [place] [address] [facility] Disposition: Home Social History [...] Head (11/27/2013 12:00 AM EDT) Narrative [facility] - 08/17/2015 8:24 AM EDT This exam is for storage only and is auto-finalizing. Dr Reyes [facility] FILM LIBRARY ORD ERABLES [place], [place] documented in this encounter Visit Diagnoses Diagnosis Pain Generalized pain documented in this encounter Care Teams Investor Relations Manager Relationship Specialty Start Date End Date Zoraida Ordoñez MD [address] [place] [address] PCP - General 04/26/11 2 documented as of this encounter
--- OUTSIDE RECORDS SUMMARY | 2024-02-13 16:36 | XMS_ITS | Clinical Summary ---
Author Organization [facility] Address [address] [place] [address] Care Team Providers Care County Extension Agent Name Role Phone Jacey Amador Primary Care Provider [phone] Allergies Active Allergy Reactions Criticality Noted Date [...] Care Team Description 11/29/2023 Telephone [facility] Neurology [address] [address] Robby Abraham MD Appointment Related from Last 3 Months Surgical History Surgery Date Site/Laterality Comments CHOLECYSTECTOMY 04/09/1997 - 04/08/1998 COLECTOMY 04/09/1999 - 04/08/2000 diverticulitis APPENDECTOMY 04/09/2008 - 04/08/2009 SPINE SURGERY Medical History Medical History Date Comments Chronic back pain Chronic neck pain Headache(784.0) Degenerative joint disease DDD (degenerative disc disease), thoracolumbar Hyperlipidemia Angina at rest ([facility]) SOB (shortness of breath) Diarrhea Environmental allergies Asthma Depression GERD (gastroesophageal reflux disease) Heart murmur Neuromuscular disease ([facility]) Substance abuse ([facility]) Sleep apnea Family History Medical [...] [facility] Neu[facility] - [address] [address] Robby Abraham MD 1 [facility], Level 2 [place] [address] Health Maintenance Due Date Last [...] lung cancer HEPATITIS C AB W/[place] [facility] Routine 02/28/2019 7:24 EST from Last 3 [...] ORDERABLES * HEPATITIS C AB W/REFLEX [place] [facility] (02/28/2019 7:24 EST) HEPATITIS C AB W/REFLEX - [facility] Negative 02/28/2019 9:16 EST [facility] Comment:Expected Values: Neg ative. 02/28/2019 7:24 EST 02/28/2019 7:24 EST Narrative [facility] - 02/28/2019 9:16 EST Does PT Have a Latex Allergy? NO Robby Abraham MD CHEMISTRY & BLOOD GA S ORDERABLES [facility] from Last 3 Months or Most Recently Relevant to Health Maintenance Care Teams County Extension Agent Relationship Specialty Start Date End Date Jacey Amador FNP [address] [place] [address] PCP - General Family Medicine - Primary Care 08/30/22
--- OUTSIDE RECORDS SUMMARY | 2024-02-13 16:36 | XMS_ITS | Encounter Summary ---
Author Organization [facility] Address [address] [place] [address] Care Team Providers Care Stake Setter Name Role Phone Jennifer Sr MD Primary Care Provider [phone] Encounter Details Date Type Department Care Team (Late st Contact Info) Description 03/27/2019 Documentation Visit [facility] Neurology - S [address] [phone] Robby Abraham MD [address] [place] [address] Level 2 [place] [address] Social History Tobacco Use Types [...] Info) Description 04/21/2024 15:00 EST Office Visit [facility] Neurology - S [address] [address] Robby Abraham MD [address] [place] [address], Level 2 [place] [phone] documented as of this encounter Visit Diagnoses Not on filedocumented in this encounter Care Teams Stake Setter Relationship Specialty Start Date End Date Jennifer Sr MD [address], [address] [address] PCP - General 12/03/18 08/29/22 documented as of this encounter
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
--- OUTSIDE RECORDS SUMMARY | 2024-02-13 16:36 | XMS_ITS | Encounter Summary ---
Author Organization [facility] Address [address] [place] [address] Care Team Providers Care Clinical Program Director Name Role Phone Jennifer Sr MD Primary Care Provider [phone]- [phone] Jacey Amador Primary Care Provider [phone] Encounter Details Date Type Department Care Team (Latest Contact Info) Description 09/29/2021 Lab Requisition [facility] Pathology & Laboratory Medicine - [address] [address] Glenys Hernandez FNP [address] [place], [place] [address] Encounter for general adult medical examination without [...] 04/21/2024 15:00 EST Office Visit [facility] Neurology - S [address] [place], [place] [address] Robby Abraham MD [address] [place] [address], Level 2 [place] [address] documented as of this encounter [...] types, PCR Negative Negative 10/05/2021 19:21 EDT [facility] Comment:No E6 or E7 mRNA is detected from HPV types 16,18,31,33,35,39,45,51,52,56,58,59,66, and 68 by spiral tube winder mediated amplification. Papanicolaou smear specimen (specimen) CERVIX UTERI STRUCTURE / Unknown 09/27/2021 9:50 EDT 10/03/2021 14:58 EDT Glenys QUICK MICROBIOLOGY - GENER AL ORDERABLES [facility] [address] [place] [address] * PAP TEST (09/27/2021 9:50 EDT) Specimens A. Cervix and/or Endocervix , ThinPrep Imaging System with Manual Evaluation 10/05/2021 19:22 [facility] Specimen Adequacy Satisfactory for Evaluation - transformation zone component present 10/05/2021 19:22 [facility] General Categorization Negative for intraepithelial lesion or malignancy 10/05/2021 19:22 [facility] Attestation . 10/05/2021 19:22 [facility] at 1922 Clinical History SEE BELOW 10/06/19 19:22 [facility] HPV The result for the Human Papillomavirus (HPV) Detection-High Risk Types is Negative. No E6 or E7 mRNA is detected from HPV types 16,18,31,33,35,39 ,45,51,52,56,58,5 9,66, and 68 by spiral tube winder mediated amplification.Tete ting was performed on specimen [id number] and was resulted on 10/05/2021 1915 EDT by HOLLY, LAB INSTRUMENT RESULTS IN 10/05/2021 19:22 T [facility] Performing Lab [facility] 10/05/2021 19:22 T [facility] Scanned Images 10/05/2021 19:22 T [facility] Papanicolaou smear specimen (specimen) CERVIX UTERI STRUCTURE / Unknown 09/27/2021 9:50 EDT 09/29/2021 12:56 EDT Glenys Hernandez HOSPITAL ADMINISTRATOR PATHOLOGY ORDERABLES [facility] [address] [place] [address] documented in this encounter Visit Diagnoses Diagnosis Encounter for general adult medical examination without abnormal findings Unspecified general medical examination Encounter for screening for malignant neoplasm of cervix Screening for malignant neoplasm of the cervix Encounter for screening for human papillomavirus (HPV) Special screening examination for human papillomavirus (HPV) documented in this encounter Care Teams Clinical Program Director Relationship Specialty Start Date End Date Jennifer Sr MD [address] [place] [address] PCP - General 12/03/18 08/29/22 Jacey Amador FNP Teena [address] [facility] [address] [place] [address] PCP - General Family Medicine - Primary Care 08/30/22 documented as of this encounter
--- OUTSIDE RECORDS SUMMARY | 2024-02-13 16:36 | XMS_ITS | Encounter Summary ---
Author Organization [facility] Address [address] [place] [address] Care Team Providers Care Mainframe Systems Administrator Name Role Phone Jennifer Sr MD Primary Care Provider [phone] Reason for Referral * PT/OT/ST (Routine) - Specialty Report Received Specialty Diagnoses / Procedures Referred By Mayda jalloh Referred To Contact Diagnoses Trochanteric bursitis of both hips Chronic right-sided low back pain, unspecified whether sciatica present Altagracia Lozano NP [address] [place] [address] Referral ID Status Reason Start Date Expiration Date Visits Requested Visits Authorized [id number] Specialty Report Received Specialty Services Required 9 [...] disc degeneration, lumbar region Jennifer Sr MD [address] [facility], [address] [address] [facility] [address] [place] [address] Referral ID Status Reason Start Date Expiration Date Visits Re quested Visits Authorized [id number] Closed 1 1 Encounter Details Date Type Department Care Team (Late st Contact Info) Description 02/19/2019 8:30 EST Office Visit [facility] Total Joint Program - [place] [address] [place] [address] Altagracia Lozano, CENTERLESS GRINDER SET UP OPERATOR [address] [facility] [place] [address] Trochanteric bursitis of both hips [...] this encounter Progress Notes * Altagracia Lozano, DELIVERER FOOD - 02/19/2019 0830 EST New Hip pain [...] file Gets together: Not on file Attends anabaptism service: Not on file Active member of [...] follow-up with Spine clinic Disposition: follow-up in [facility] in 2-3 months, sooner as needed Dr. Mae was the attending physician available in the clinic today if needed. A consultation wasnot required. documented in this encounter Plan of Treatment Upcoming Encounters Date Type Department Care Team (Late st Contact Info) Description 04/21/2024 15:00 EST Office Visit [facility] Neurology - S [address] [address] Robby Abraham MD [address] [place] [address], Level [address] [place] [address] Scheduled Referrals Name Type Priority Associated Diagnoses [...] present documented in this encounter Care Teams Mainframe Systems Administrator Relationship Specialty Start Date End Date Jennifer Sr MD [address], [address] [address] PCP - General 12/03/18 08/29/22 documented as of this encounter
--- OUTSIDE RECORDS SUMMARY | 2024-02-13 16:36 | XMS_ITS | Encounter Summary ---
Author Organization [facility] [place] [address] Care Team Providers Care Nonprofit Manager Name Role Phone JAY Ann, Cassidy Primary Care Provider [phone] Reason for Visit * Reason Onset Date Comments Other 09/07/2014 compounded scrip t Encounter Details Date Type Department Care Team ([facility] st Contact Info) Description 09/07/2014 [place] [address] Song Allen MD [facility] [place] [address] Other (compounded script) Social History Tobacco Use [...] 10/15/2014 3:03 PM EDT Faxed order to [facility]. * Telephone Encounter - Stephanie Strauss RN - 10/15/2014 9:58 AM EDT Call received from Justin, pharmacist at [facility], asking if we had the signed compounded form from Dr. Allen. Will check with Ramesh and Dr. Allen. * Telephone Encounter - Stephanie Strauss RN - 09/22/2014 8:42 AM EDT Forwarded script on to Dr. Allen to sign. Will fax back to [facility]. * Telephone Encounter - Stephanie Strauss RN [...] office note and compounding order form to [facility] at [phone]. documented in this encounter Plan of Treatment Not on file documented as of this encounter Visit Diagnoses Not on filedocumented in this encounter Care Teams Nonprofit Manager Relationship Specialty Start Date End Date Cassidy Ware PA PCP - General 09/04/14 08/26/15 documented as of this encounter
--- OUTSIDE RECORDS SUMMARY | 2024-02-13 16:36 | XMS_ITS | Encounter Summary ---
Author Organization [facility] Address [address] [place] [address] Care Team Providers Care Remote Operations Producer Name Role Phone Jennifer Sr MD Primary Care Provider [phone] Jacey Amador Primary Care Provider [phone] Encounter Details Date Type Department Care Team (Late Contact Info) Description 04/23/2019 Results Only Imaging [facility] Radiology Results [address] [place] [address] Harris Price MD [address] [place] [address] Social History Tobacco Use Types [...] Upcoming Encounters Date Type Department Care Team ([facility] Contact Info) Description 04/21/2024 15:00 EST Office Visit [facility] Neurology - [address] [place] [address] [place] [address] Robby Abraham MD 1 [facility], Level 2 [place] [address] documented as of this encounter [...] MD ? Transcribed Date/Time: 04/23/2019 (1908) ? Leather Worker: [employer] ? Printed Date/Time: 04/23/2019 (1908) ? [...] Moreno Arrieta MD Transcribed Date/Time: 04/23/2019 (1908) Leather Worker: Printed Date/Time: 04/23/2019 (1908) PAGE 2 Signed Report Harris Price MD IMG CT ORDERABLES documented in this encounter Visit Diagnoses Not on filedocumented in this encounter Care Teams Remote Operations Producer Relationship Specialty Start Date End Date Jennifer Sr MD [address] [place] [address] [place], [address] [place] [address] PCP - General 12/03/18 08/29/22 Jacey Amador FNP Te[address] [phone] PCP - General Family Medicine - Primary Care 08/30/22 documented as of this encounter
--- OUTSIDE RECORDS SUMMARY | 2024-02-13 16:36 | XMS_ITS | Encounter Summary ---
Author Organization [facility] Address [address] [place] [address] Care Team Providers Care Health And Safety Manager Name Role Phone Jacey Amador Primary Care Provider [phone] Reason for Visit * Reason Onset Date Comments Appointment Related 11/29/2023 Encounter Details Date Type Department Care Team ([facility] st Contact Info) Description 11/29/2023 Telephone [facility] Neurology - S [address] [id number] Robby Abraham MD [address] [place] [address] Level 2 [place] [phone] Appointment Related Social History Tobacco Use Types [...] Info) Description 04/21/2024 15:00 EST Office Visit [facility] Neurology - S [address] 126741 Robby Abraham MD [address] [place] [address], Level 2 [place] [phone] documented as of this encounter Visit Diagnoses Not on filedocumented in this encounter Care Teams Health And Safety Manager Relationship Specialty Start Date End Date Jacey Amador FNP Teena HANEY [address] [place] [phone] PCP - General Family Medicine - Primary Care 08/30/22 documented as of this encounter
--- OUTSIDE RECORDS SUMMARY | 2024-02-13 16:36 | XMS_ITS | Encounter Summary ---
Author Organization [facility] Address [address] [place] [address] Care Team Providers Care Associate Field Service Engineer Name Role Phone Jennifer Sr MD Primary Care Provider [phone]- [phone] Encounter Details Date Type Department Care Team [...] Info) Description 04/21/2024 15:00 EST Office Visit [facility] Neurology - S [place] [address] [place], [place] [phone] Robby Abraham MD [address] [place] [address], Level 2 [place] [address] documented as of this encounter Visit Diagnoses Not on filedocumented in this encounter Care Teams Associate Field Service Engineer Relationship Specialty Start Date End Date Jennifer Sr MD [address] [place] [address] PCP - General 12/03/18 08/29/22 documented as of this encounter
--- OUTSIDE RECORDS SUMMARY | 2024-02-13 16:36 | XMS_ITS | Encounter Summary ---
Author Organization [facility] Address [address] [place] [address] Care Team Providers Care Model Technician Name Role Phone Jennifer Sr MD Primary Care Provider [phone]- [phone] Jacey Amador Primary Care Provider Encounter Details Date Type Department Care Team ([facility] Contact Info) Description 02/28/2019 Lab Requisition [facility] Pathology & Laboratory Medicine - [address] [address] Unknown, Provider, Social History Tobacco Use Types [...] Upcoming Encounters Date Type Department Care Team ([facility] Contact Info) Description 04/21/2024 15:00 EST Office Visit [facility] Neurology - S [address] [address] Robby Abraham MD 1 [facility], Level 2 [place] [address] documented as of this encounter Procedures Procedure Name Priority Date/Time Associated Diagnosis Comments HEPATITIS B CORE ANTIBODY (TOTAL) Routine 02/28/2019 7:24 EST documented in this encounter Results * HEPATITIS B CORE ANTIBODY (TOTAL) (02/28/2019 7:24 EST) Hepatitis B Core Ab, Total Negative Negative 02/28/2019 15:25 EST [facility] Blood VENOUS BLOOD / Unknown 02/28/2019 7:24 EST 02/28/2019 11:56 EST Provider Unknown CHEMISTRY & BLOOD GA S ORDERABLES Performing Organization Address City/State/[facility] Co de Phone Number [facility] [address] [place] [address] documented in this encounter Visit Diagnoses Not on filedocumented in this encounter Care Teams Model Technician Relationship Specialty Start Date End Date Jennifer Sr MD [address], [address] [address] PCP - General 12/03/18 08/29/22 Jacey Amador FNP Teena [address] [facility] 1 [place] [phone] PCP - General Family Medicine - Primary Care 08/30/22 documented as of this encounter
--- OUTSIDE RECORDS SUMMARY | 2024-02-13 16:36 | XMS_ITS | Encounter Summary ---
Author Organization [facility] Address [address] [place] [address] Care Team Providers Care Assistant Women'S Rowing Coach Name Role Phone Jennifer Sr MD Primary Care Provider +1- [phone] Encounter Details Date Type Department Care Team (Late st Contact Info) Description 12/24/2018 Documentation Visit [facility] Neurology - S [address] [phone] Robby Abraham MD [address] [place] [address] Level 2 [place] [address] Social History Tobacco Use Types [...] at 89. There is a note from [facility] pain clinic in August 2005 where she [...] Info) Description 04/21/2024 15:00 EST Office Visit [facility] Neurology - S [address] 8590[address] Robby Abraham MD [address] [place] [address], Level 2 [place] [phone] documented as of this encounter Visit Diagnoses Not on filedocumented in this encounter Care Teams Assistant Women'S Rowing Coach Relationship Specialty Start Date End Date Jennifer Sr MD [address], [address] [address] PCP - General 12/03/18 08/29/22 documented as of this encounter
--- OUTSIDE RECORDS SUMMARY | 2024-02-13 16:36 | XMS_ITS | Encounter Summary ---
Author Organization [facility] Address [address] [place] [address] Care Team Providers Care Razor Grinder Name Role Phone Jennifer Sr MD Primary Care Provider [phone]- [phone] Reason for Visit * Reason Comments Pain Pain Encounter Details Date Type Department Care Team ([facility] Contact Info) Description 06/20/2019 9:30 EDT Office Visit [facility] Total Joint Program - [facility] [address] [place] [address] Altagracia Lozano, SUNSHINE [address] [place] [address] Greater trochanteric bursitis of left [...] (acetaminophen) or Advil (ibuprofen) as directed by toxicology supervisor if not contraindicated ??? No Swimming for [...] pain does not subside, please call at [phone] and let us know. Our goal is to lessen your pain and improve your function. documented in this encounter Progress Notes * Adenike Agee MA - 06/20/2019929 EDT Hip Injection Bupivacaine 0.5% 10 mL Med lot number: [id number] [facility] number: [id number] Exp date: 09/28 Sales Training Manager:GILMA med Drug waste: 10 mL vial, used 4 mL, wasted 6 mL Methyiprednisolone 40 mg/mL Med lot number: [id number] [facility] number: [id number] Exp date: 05/30 Sales Training Manager: Signal Data Drug :1 mL vial, used 1 mL, [...] Visit [facility] Neurology - S [place] 1 [place] [address] Robby Abraham MD [address] [place] [address], Level 2 [place] [phone] documented as of this encounter Visit Diagnoses Diagnosis Greater trochanteric bursitis of left hip- Primary Enthesopathy of hip region documented in this encounter Care Teams Razor Grinder Relationship Specialty Start Date End Date Jennifer Sr MD [address], [address] [address] PCP - General 12/03/18 08/29/22 documented as of this encounter
--- OUTSIDE RECORDS SUMMARY | 2024-02-13 16:36 | XMS_ITS | Encounter Summary ---
Author Organization [facility] Address [address] [place] [address] Care Team Providers Care Broaching Machine Set Up Operator Name Role Phone Jennifer Sr MD Primary Care Provider [phone]- [phone] Jacey Amador Primary Care Provider [phone] Encounter Details Date Type Department Care Team (Late Contact Info) Description 08/23/2020 Lab Requisition [facility] Pathology & Laboratory Medicine - [address] [address] Outr Resulting Lab, Provider Social History Tobacco [...] Upcoming Encounters Date Type Department Care Team ([facility] Contact Info) Description 04/21/2024 15:00 EST Office Visit [facility] Neurology - S [place] 1 [place] [address] Robby Abraham MD 1 [facility], Level 2 [place] [address] documented as of this encounter Procedures Procedure Name Priority Date/Time Associated Diagnosis Comments SPEP WITH IMMUNOTYPING PERFORMABLE Today 08/23/2020 12:11 EDT SPEP WITH IMMUNOTYPING Routine 08/23/2020 12:11 EDT PROTEIN, TOTAL Today 08/23/2020 12:11 EDT documented in this encounter Results * SPEP WITH IMMUNOTYPING PERFORMABLE (08/23/2020 12:11 EDT) Albumin % 62.6 55.8 - 66.1 % 08/25/2020 6:27 [facility] Alpha-1 % 3.4 2.9 - 4.9 % 08/25/2020 6:27 [facility] Alpha-2 % 10.1 7.1 - 11.8 % 08/25/2020 6:27 [facility] Beta % 11.2 8.4 - 13.1 % 08/25/2020 6:27 [facility] Gamma % 12.7 11.1 - 18.8 % 08/25/2020 6:27 [facility] SPEP Comment No apparent monoclonal protein seen on serum electrophoresis 08/25/2020 6:27 [facility] Comment:See scanned/suppleme ntary report. Immunotyping , Serum Current Interpretation: Negative for monoclonal immunoglobulins. Reviewed by: Antonio Sorensen MD 08/24/2020 15:12 08/25/2020 6:27 [facility] Total Protein 7.2 6.3 - 8.2 g/dL 08/25/2020 6:27 [facility] Blood VENOUS BLOOD / Unknown 08/23/2020 12:11 EDT 08/23/2020 21:28 EDT Provider Outr Resulting Lab CHEMISTRY & BLOOD GAS ORDERABLES [facility] [address] [place] [address] * PROTEIN, TOTAL (08/23/2020 12:11 EDT) Blood VENOUS BLOOD / Unknown 08/23/2020 12:11 EDT 08/23/2020 21:28 EDT Provider Outr Resulting Lab CHEMISTRY & BLOOD GAS ORDERABLES Performing Organization Address City/[facility] [address]/[facility] Co de Phone Number [facility] [address] [place] [address] documented in this encounter Visit Diagnoses Not on filedocumented in this encounter Care Teams Broaching Machine Set Up Operator Relationship Specialty Start Date End Date Jennifer Sr MD [address], [address] [address] PCP - General 12/03/18 08/29/22 Jacey Amador FNP [facility] HAFSA TAMEZ [address] [phone] PCP - General Family Medicine - Primary Care 08/30/22 documented as of this encounter
--- OUTSIDE RECORDS SUMMARY | 2024-02-13 16:36 | XMS_ITS | Encounter Summary ---
Author Organization [facility] Address [address] [place] [address] Care Team Providers Care Winterizer Name Role Phone Jennifer Sr MD Primary Care Provider [phone]- [phone] Encounter Details Date Type Department Care Team (Late Contact Info) Description 02/17/2019 Orders Only [facility] Total Joint Program - [facility] [address] [place] [address] Altagracia Lozano NP [address] [place] [address] Right hip pain (Primary Dx); [...] Office Visit [facility] Neurology - S [address] [address] Robby Abraham MD 1 [facility], Level 2 [place] [address] documented as of this encounter Visit Diagnoses Diagnosis Right hip pain- Primary Pain in joint, pelvic region and thigh Left hip pain Pain in joint, pelvic region and thigh documented in this encounter Care Teams Winterizer Relationship Specialty Start Date End Date Jennifer Sr MD [address], [address] [address] PCP - General 12/03/18 08/29/22 documented as of this encounter
--- OUTSIDE RECORDS SUMMARY | 2024-02-13 16:36 | XMS_ITS | Encounter Summary ---
Author Organization [facility] Address [address] [place] [address] Care Team Providers Care Qa Tech Name Role Phone Jennifer Sr MD Primary Care Provider +1- [phone] Reason for Visit * Reason Onset Date Comments Appointment Related 05/15/2019 Encounter Details Date Type Department Care Team ([facility] st Contact Info) Description 05/15/2019 Telephone [facility] Interventional Pain [address] [facility] [place] [address] Ruth Gomez PA-C [address] [facility] [address] [place] [address] Appointment Related Social History Tobacco [...] Description 04/21/2024 15:00 EST Office Visit [facility] Neurology - S [address] [address] Robby bAraham MD [address] [place] [place] [address] Level 2 [place] [phone] documented as of this encounter Visit Diagnoses Not on filedocumented in this encounter Care Teams Qa Tech Relationship Specialty Start Date End Date Jennifer Sr MD [address], [address] [address] PCP - General 12/03/18 08/29/22 documented as of this encounter
--- OUTSIDE RECORDS SUMMARY | 2024-02-13 16:36 | XMS_ITS | Encounter Summary ---
Author Organization [facility] Address [address] [place] [address] Care Team Providers Care Aviation Electrical Technician Name Role Phone Jennifer Sr MD Primary Care Provider +1- [phone] Jacey Amador Primary Care Provider [phone] Encounter Details Date Type Department Care Team (Late Contact Info) Description 07/25/2019 Lab Requisition [facility] Pathology & Laboratory Medicine - [address] [address] [place] [address] Encounter for other general examination Social History [...] Upcoming Encounters Date Type Department Care Team ([facility] Contact Info) Description 04/21/2024 15:00 EST Office Visit [facility] Neurology - S [place] 1 [place], [place] [address] Robby Abraham MD 1 [facility], Level 2 [place] [phone] documented as of this encounter Visit Diagnoses Diagnosis Encounter for other general examination documented in this encounter Care Teams Aviation Electrical Technician Relationship Specialty Start Date End Date Jennifer Sr MD [facility], [address] [address] PCP - General 12/03/18 08/29/22 Jacey Amador FNP Teena [address] [phone] PCP - General Family Medicine - Primary Care 08/30/22 documented as of this encounter
--- OUTSIDE RECORDS SUMMARY | 2024-02-13 16:36 | XMS_ITS | Encounter Summary ---
Author Organization [facility] Address [address] [place] [address] Care Team Providers Care Bioinformatics Scientist Name Role Phone Jennifer Sr MD Primary Care Provider [phone]- [phone] Encounter Details Date Type Department Care Team (Late Contact Info) Description 04/23/2019 Results Only [facility] [phone] Harris Price MD [address] [place] [address] Social History Tobacco Use Types Packs/Day [...] Date Type Department Care Team ([facility] Contact Info) Description 04/21/2024 15:00 EST Office Visit [facility] Neurology - S [place] [address] [place] [address] Robby Abraham MD [address] [place] [address] 2 [place] [phone] documented as of this encounter Procedures Procedure Name Priority Date/Time Associated Diagnosis Comments COMPLETE BLOOD COUNT WITH DIFFERENTIAL (AUTO) Routine 04/23/2019 16:50 EST COMPREHENSIVE METABOLIC PANEL (CMP) Routine 04/23/2019 16:50 EST documented in this encounter Results * (ABNORMAL) COMPREHENSIVE METABOLIC PANEL (CMP) (04/23/2019 16:50 EST) Albumin % 4.4 3.4 - 4.9 g/dL 04/23/2019 17:14 [facility] ALKALINE PHOSPHATASE - [facility] 64 38 - 126 U/L 04/23/2019 17:14 [facility] BILIRUBIN TOTAL 0.5 0.2 - 1.3 mg/dL 04/23/2019 17:14 [facility] BUN - [facility] 8(L) 10 - 26 mg/dL 04/23/2019 17:14 [facility] CALCIUM - [facility] 9.7 8.5 - 10.5 [...] [facility] GLUCOSE - [facility] 117(H) 70 - 100 mg/dL 04/23/2019 17:14 [facility] Potassium 4.4 3.5 - 5.0 mEq/L 04/23/2019 17:14 [facility] Sodium 139 136 - 145 mEq/L 04/23/2019 17:14 [facility] TOTAL PROTEIN - [facility] 7.4 6.2 - 8.2 gm/dL 04/23/2019 17:14 [facility] SGOT/AST - [facility] [place] 23 14 - 36 U/L 04/23/2019 17:14 [facility] SGPT/ALT - [facility] [place] 22 9 - 52 U/L 0 17:14 [facility] 04/23/2019 16:5 0 EST 04/23/2019 16:56 EST Harris Price MD CHEMISTRY & BLOOD GAS ORDERABLES [facility] * COMPLETE BLOOD COUNT [...] [facility] HEMOGLOBIN - [facility] 13.6 11.6 - 15.2 g/dl 04/23/2019 17:05 [facility] IG# - [facility] 0.01 0 - 0.7 10e3/uL 04/23/2019 17:05 [facility] IG% - [facility] 0.1 0 - 0.9 % 04/23/2019 17:05 [facility] LYMPH # - [facility] 2.7 1.09 - 3.3 10e3/ul 04/23/2019 17:05 [facility] LYMPH% - [facility] 35.3 20 - 40 % 04/23/2019 17:05 [facility] MEAN CORPUSCULAR HGB - [facility] 32.2 26.7 - 33.3 pg 04/23/2019 17:05 [facility] MEAN CORPUSCULAR HGB CONC - [facility] 34.0 32.1 - 35.9 g/dL 04/23/2019 17:05 [facility] MEAN CELL VOLUME - [facility] [place] 94.8 81 - 98 fl 04/23/2019 17:05 [facility] MONO # - [facility] 0.5 0.1 - 0.8 10e3/uL 04/23/2019 17:05 [facility] MONO% - [facility] 5.9 0 - 12 % 04/23/2019 17:05 [facility] PLATELET COUNT 321 141 - 377 10e3/ul 04/23/2019 17:05 [facility] RED BLOOD COUNT - [facility] 4.22 3.86 - 5.04 10e3/ul 04/23/2019 17:05 [facility] RED CELL DISTRI WIDTH - [facility] 12.3 <14.7 % 04/23/2019 17:05 [facility] WHITE BLOOD COUNT - [facility] 7.6 4.0 - 12.4 10e3/ul 04/23/2019 17:05 [facility] 04/23/2019 16:5 0 EST 04/23/2019 16:56 EST Harris Price MD HEMATOLOGY & PF4 ORDERABLES [facility] documented in this encounter Visit Diagnoses Not on filedocumented in this encounter Care Teams Bioinformatics Scientist Relationship Specialty Start Date End Date Jennifer Sr MD [address], [address] [place] [address] PCP - General 12/03/18 08/29/22 documented as of this encounter
--- OUTSIDE RECORDS SUMMARY | 2024-02-13 16:36 | XMS_ITS | Encounter Summary ---
Author Organization [facility] Address [address] [place] [address] Care Team Providers Care Table Setter Name Role Phone Jennifer Sr MD Primary Care Provider +1- [phone] Reason for Visit * Reason Onset Date Comments Appointment Related 08/22/2019 Encounter Details Date Type Department Care Team ([facility] st Contact Info) Description 08/22/[address] [facility] Interventional Pain [address] [place], [place] [phone] Ann-Marie Macias MD [address] [place], [place] [phone] Appointment Related Social History Tobacco Use Types [...] Telephone Encounter - Shanell Gilbert - 08/22/2019 8061 EDT Called patient to confirm their appointment [...] [facility] Neurology - S [address] [phone] Robby Abraham MD [address] [place] [address], Level [address] [place] [phone] documented as of this encounter Visit Diagnoses Not on filedocumented in this encounter Care Teams Table Setter Relationship Specialty Start Date End Date Jennifer Sr MD [address], [address] [place] [address] PCP - General 12/03/18 08/29/22 documented as of this encounter
--- OUTSIDE RECORDS SUMMARY | 2024-02-13 16:37 | XMS_ITS | Encounter Summary ---
Author Organization [facility] Address [address] [place] [address] Care Team Providers Care Skin Carver Name Role Phone Jennifer Sr MD Primary Care Provider [phone] Reason for Visit * Reason Comments Follow-up Results discuss lab results/ lab draw Encounter Details Date Type Department Care Team ([facility] st Contact Info) Description 12/17/2018 8:00 EDT Office Visit [facility] Rheumatology & Immunology - [address] [id number] Carl Flood Chi, MD [address] [place] [address], [address] [place] [address] Small fiber neuropathy (Primary Dx); [...] cause of her symptoms. Dx with [place] 2016 by [facility], which [facility] neurology does not agree with. [...] C4 40 dsDNA negative RF negative Agee, LABORATORY TESTER negative SSA, SSB negative Thyroid antibodies negative [...] MONOCLONAL SPIKE SSA ANTIBODIES BY ALMA ROSA LABORATORY TESTER ANTIBODIES BY ALMA ROSA SSB ANTIBODIES BY [...] Visit [facility] Neurology - [address] [address] Robby Abraham MD [address] [place] [address], [address] [place] [address] documented as of this encounter Procedures Procedure Name Priority Date/Time Associated Diagnosis Comments PATHOLOGY - SCANNED 12/18/2018 1 2:00 EDT OUTPATIENT ADD-ON Routine 12/17/2018 18: 06 EDT Positive ADRIANA (antinuclear antibody) OUTPATIENT ADD-ON Routine 12/17/2018 17: 17 EDT Positive ADRIANA (antinuclear antibody) documented in this encounter Results * PATHOLOGY - SCANNED (12/18/2018 12:00 EDT) 12/18/2018 12:0 0 EDT Scan 2 Sr. Director Product Management LAB INFO SERVICE AN D SUPPORT & PHONE RESULT * OUTPATIENT ADD-ON (12/17/2018 18:06 EDT) Tests to be added CANCEL RHEUMATOID FACTOR REQUEST PLACED EARLIER, ORDER ALREADY IN FOR ARTHRITIS 1 PROFILE WHICH HAS THE RHEUMATOID FACTOR. 12/17/2018 18:06 EDT [facility] Diagnosis Code SEE Search to Phone, DOS 9.10.19 12/17/2018 18:12 EDT [facility] Number for problems 7 12/17/2018 18:06 EDT [facility] Comment:[id number] Accession number DUPLICATION OF REQUEST 12/17/2018 18:12 T [facility] Acknowledge ABP Done 9 18:12 T [facility] BLOOD SPECIMEN / Unknown 12/17/2018 18:06 EDT 12/17/2018 18:11 EDT Carl Flood MD HEMATOLOGY & PF4 ORD ERABLES [facility] [address] [place] [address] * OUTPATIENT ADD-ON (12/17/2018 17:17 EDT) Tests to be added RHEUMATOID FACTOR 12/17/2018 17:17 EDT [facility] Diagnosis Code SEE EPIC, DOS 9.10.19 12/17/2018 17:44 EDT [facility] Number for problems 7 12/17/2018 17:17 EDT [facility] Comment:[id number] Accession number DUPLICATION OF REQUEST IN ARTHRITIS PANEL 1 12/17/2018 18:14 T [facility] Comment:Corrected on 12/17 A T 1814: Previously reported as RFS TO [id number] Acknowledge ABP Done 9 18:14 [facility] BLOOD SPECIMEN / Unknown 12/17/2018 17:17 EDT 12/17/2018 17:43 EDT Carl Flood MD HEMATOLOGY & PF4 ORD ERABLES [facility] [address] [place] [address] * UA, CHEMICAL AND SEDIMENT ANALYSIS (DIPSTICK AND MICROSCOPIC) (12/17/2018 9:02 EDT) Color, UA Yellow 12/17/2018 9:42 [facility] Clarity, UA Clear 12/17/2018 9:42 [facility] Glucose, UA Neg Neg 12/17/2018 9:42 [facility] Bilirubin, UA Neg Neg 12/17/2018 9:42 [facility] Ketones, UA Neg Neg 12/17/2018 9:42 [facility] Refractometer SG,Urine 1.020 1.001 - 1.035 12/17/2018 9:42 [facility] Blood, UA Neg Neg 12/17/2018 9:42 [facility] pH, UA 5.0 4.6 - 8.0 12/17/2018 9:42 [facility] Protein, UA Neg Neg 12/17/2018 9:42 [facility] Urobilinogen, UA Normal Normal E.U./dl 12/17/2018 9:42 [facility] Nitrite, UA Neg Neg 12/17/2018 9:42 [facility] Leuk Esterase Neg Neg 12/17/2018 9:42 [facility] UA Method Used 12/17/2018 8:51 [facility] Comment: Testing performed using [employer]. Urine RBC Count Automated 0 to 2 0 to 2 /HPF 12/17/2018 9:42 EDT [facility] Urine WBC Count Automated 0 to 3 0 to 3 /HPF 12/17/2018 9:42 EDT [facility] Urine Squamous Epithelial Cell Count, Automated None seen None seen /LPF 12/17/2018 9:42 EDT [facility] Urine Hyaline Casts, Automated < or = 10 < or = 10 /LPF 12/17/2018 9:42 EDT [facility] Urine Bacteria Count, Automated None seen None seen 12/17/2018 9:42 EDT [facility] UA Comment Sediment results 12/17/2018 9:42 EDT [facility] Comment: are unreliable on urines unrefrig >2hrs or refrig >8hrs. Urine specimen (specimen) URINE / Unknown 12/17/2018 9:02 EDT 12/17/2018 9:30 EDT Carl Flood MD URINALYSIS ORDERABLE S Performing Organization Address City/[facility]/ZIP Co de Phone Number [facility] [address] [place] [address] * THYROID ANTIBODIES (12/17/2018 9:02 EDT) Thyroglobulin Ab 19 <61 U/mL 12/18/19 19 12:20 EDT [facility] Thyroperoxidase Ab 44 <61 U/mL 2018 13:08 EDT [facility] Blood specimen (specimen) BLOOD SPECIMEN / Unknown 12/17/2018 9:02 EDT 12/17/2018 10:10 EDT Narrative Authorizing Provider Result Charly Flood MD CHEMISTRY & BLOOD GA S ORDERABLES Performing Organization Address City/[facility]/ZIP Co de Phone Number [facility] [address] [place] [address] * SED. RATE:WESTERGREN (12/17/2018 9:02 EDT) Sed. Rate Westergren 5 0 - 30 mm/hr 12/17/2018 10:21 EDT [facility] Blood specimen (specimen) BLOOD SPECIMEN / Unknown 12/17/2018 9:02 EDT 12/17/2018 10:10 EDT Narrative Authorizing Provider Result Charly Flood MD HEMATOLOGY & PF4 ORD ERABLES Performing Organization Address [facility] Co de Phone Number [facility] [address] [place] [address] * TSH (12/17/2018 9:02 EDT) [facility] TSH 1.46 0.47 - 4.68 uIU/ml 12/17/2018 12:19 EDT [facility] Comment: The results of this assay can be falsely lowered due to the consumption of Biotin. Blood specimen (specimen) BLOOD SPECIMEN / Unknown 12/17/2018 9:02 EDT 12/17/2018 10:10 EDT Narrative Authorizing Provider Result Charly Flood MD CHEMISTRY & BLOOD GA S ORDERABLES Performing Organization Address [facility] de Phone Number [facility] [address] [place] [address] * SSB ANTIBODIES BY ALMA ROSA (12/17/2018 9:02 EDT) [facility] SSB Antibody 3.0 <20 Units 12/19/2018 13:07 EDT [facility] Comment: Negative: <20 Units Weak Positive: 20 - 39 Units Moderate Positive: 40 - 80 Units Strong Positive: >80 Units Results were obtained with the [employer] QUANTA SS-B ALMA ROSA. SS-B values obtained with different manufacturers' assay methods may not be used interchangeably. The magnitude of the reported IgG levels cannot be correlated to an endpoint titer. Blood specimen (specimen) BLOOD SPECIMEN / Unknown 12/17/2018 9:02 EDT 12/17/2018 10:10 EDT Narrative Authorizing Provider Result Charly Flood MD IMMUNOLOGY AND SEROL OGY ORDERABLES Performing Organization Address [facility] Co de Phone Number [facility] [address] [place] [address] * LABORATORY TESTER ANTIBODIES BY ALMA ROSA (12/17/2018 9:02 EDT) [facility] LABORATORY TESTER Antibody 1.7 <20 Units 12/19/2018 13:07 EDT [facility] Comment: Negative: <20 Units Weak Positive: 20 - 39 Units Moderate Positive: 40 - 80 Units Strong Positive: >80 Units Results were obtained with the [employer] QUANTA Lite LABORATORY TESTER ALMA ROSA. LABORATORY TESTER Values obtained with different manufacturers' assay methods may not be used interchangeably. The magnitude of the reported IgG levels cannot be correlated to an endpoint titer. A positive result in the QUANTA Lite LABORATORY TESTER ALMA ROSA indicates the presence of antibodies reactive with the LABORATORY TESTER/Sm complex but cannot distinguish between anti-Sm and anti-LABORATORY TESTER activity. Blood specimen (specimen) BLOOD SPECIMEN / Unknown 12/17/2018 9:02 EDT 12/17/2018 10:10 EDT Carl Flood MD IMMUNOLOGY AND SEROL SAEID ORDERABLES Performing Organization Address [facility] de Phone Number [facility] [address] [place] [address] * SSA ANTIBODIES BY ALMA ROSA (12/17/2018 9:02 EDT) [facility] SSA Antibody 3.2 <20 Units 12/19/2018 13:07 EDT [facility] Comment: Negative: <20 Units [...] AND SEROL OGArtemio ORDERABLES Performing Organization Address [facility] Co de Phone Number [facility] [address] [place] [address] * SPEP, INCLUDES QUANTITATION OF MONOCLONAL SPIKE (12/17/2018 9:02 EDT) [facility] Total Protein 7.0 6.3 - 8.2 g/dl 12/17/2018 11:49 [facility] Albumin % 63.3 55.8 - 66.1 % 12/18/2018 14:11 [facility] Alpha-1 % 3.6 2.9 - 4.9 % 12/18/2018 14:11 [facility] Alpha-2 % 10.1 7.1 - 11.8 % 12/18/2018 14:11 [facility] Beta % 11.4 8.4 - 13.1 % 12/18/2018 14:11 [facility] Gamma % 11.6 11.1 - 18.8 % 12/18/2018 14:11 [facility] Comments 12/18/2018 14:11 [facility] Comment: No apparent monoclonal protein on serum electrophoresis. See Pathology Scanned Report in EPIC. Blood specimen (specimen) BLOOD SPECIMEN / Unknown 12/17/2018 9:02 EDT 12/17/2018 10:10 EDT Narrative Authorizing Provider Result Charly Flood MD CHEMISTRY & BLOOD GA S ORDERABLES Performing Organization Address City/[facility]/ZIP Co de Phone Number [facility] [address] [place] [address] * (ABNORMAL) C REACTIVE PROTEIN (12/17/2018 9:02 EDT) C Reactive Protein 11.4(H) <10.0 mg/L 12/17/2018 12:00 EDT [facility] Blood specimen (specimen) BLOOD SPECIMEN / Unknown 12/17/2018 9:02 EDT 12/17/2018 10:10 EDT Narrative Authorizing Provider Result Charly Flood MD CHEMISTRY & BLOOD GA S ORDERABLES [facility] [address] [place] [address] * CCP ANTIBODIES (12/17/2018 9:02 EDT) CCP Antibodies <2.5 <5.0 U/mL 12/17/2018 13:18 EDT [facility] BLOOD SPECIMEN / Unknown 12/17/2018 9:02 EDT 12/17/2018 10:10 EDT Narrative Authorizing Provider Result Charly Flood MD IMMUNOLOGY AND SEROL OGY ORDERABLES [facility] [address] [place] [address] * CK (12/17/2018 9:02 EDT) CK 55 30 - 135 U/L 12/17/2018 11:49 EDT [facility] Blood specimen (specimen) BLOOD SPECIMEN / Unknown 12/17/2018 9:02 EDT 12/17/2018 10:10 EDT Narrative Authorizing Provider Result Charly Flood MD CHEMISTRY & BLOOD GA S ORDERABLES Performing Organization Address [facility] Co de Phone Number [facility] [address] [place] [address] * (ABNORMAL) COMPREHENSIVE METABOLIC PANEL (CMP) (12/17/2018 9:02 EDT) Potassium 3.9 3.5 - 5.0 mEq/L 12/17/2018 12:00 EDT [facility] Sodium 141 136 - 145 mEq/L 12/17/2018 12:00 EDT [facility] Chloride 103 96 - 110 mEq/L 12/17/2018 12:00 T [facility] CO2 29 22 - 32 mEq/L 12/17/2018 12:00 T [facility] Total Alkaline Phosphatase 56 38 - 126 U/L 12/17/2018 12:00 T [facility] Bilirubin, Total <0.5 <1.4 mg/dl 12/18/19 19 12:00 T [facility] AST 20 15 - 46 U/L 12/17/2018 12:00 T [facility] ALT 18 <34 U/L 12/17/2018 12:00 T [facility] Albumin 4.4 3.4 - 4.9 g/dl 12/17/2018 12:00 T [facility] Total Protein 7.2 6.3 - 8.2 g/dl 12/17/2018 12:00 T [facility] Creatinine 0.59 0.52 - 1.04 mg/dl 12/17/2018 12:00 [facility] GFR, Calculated 104 >60 ml/min/1.7 3m2 12/17/2018 12:00 [facility] Comment: eGFR calculated using CKD-EPI equation for non Americans. Multiply eGFR by 1.16 for Americans. BUN 7(L) 10 - 26 mg/dl 12/17/2018 12:00 T [facility] Calcium 10.1 8.5 - 10.5 mg/dl 12/17/2018 12:00 [facility] Calculated Calcium 9.8 8.5 - 10.5 mg/dl 12/17/2018 12:00 [facility] Glucose, Serum 98 70 - 100 mg/dl 12/17/2018 12:00 [facility] Fasting? No 12/17/2018 8:55 [facility] Blood specimen (specimen) BLOOD SPECIMEN / Unknown 12/17/2018 9:02 EDT 12/17/2018 10:10 EDT Carl Flood MD CHEMISTRY & BLOOD GA S ORDERABLES [facility] [address] [place] [address] * (ABNORMAL) COMPLETE BLOOD COUNT AND DIFFERENTIAL (12/17/2018 9:02 EDT) WBC 8.88 4.0 - 12.4 K/cmm 12/17/2018 10:22 [facility] RBC 4.31 3.86 - 5.04 M/cmm 12/17/2018 10:22 [facility] Hemoglobin 13.8 11.6 - 15.2 gm/dl 12/17/2018 10:22 [facility] HCT 40.6 34.9 - 44.4 % 12/17/2018 10:22 [facility] MCV 94 81 - 98 fl 12/17/2018 10:22 [facility] MCH 32.0 26.7 - 33.3 pg 12/17/2018 10:22 [facility] MCHC 34.0 32.1 - 35.9 gm/dl 12/17/2018 10:22 [facility] RDW-CV 11.9 <14.7 % 12/17/2018 10:22 [facility] RDW-SD 41.2 <50.4 fl 12/17/2018 10:22 [facility] PLT 316 141 - 377 K/cmm 12/17/2018 10:22 [facility] MPV 9.5 9.5 - 12.7 fl 12/17/2018 10:22 [facility] % Neutrophils 50.4 % 12/17/2018 10:22 [facility] % Lymphocytes 38.3 % 12/17/2018 10:22 [facility] % Monocytes 7.0 % 12/17/2018 10:22 [facility] % Eosinophils 3.5 % 12/17/2018 10:22 [facility] % Basophils 0.6 % 12/17/2018 10:22 [facility] % Immature Grans 0.2 % 12/17/2018 10:22 [facility] ABS Neutrophils 4.48 2.20 - 8.85 K/cmm 12/17/2018 10:22 [facility] ABS Lymphs 3.40(H) 1.09 - 3.30 K/cmm 12/17/2018 10:22 [facility] ABS Monocytes 0.62 0.1 - 0.8 K/cmm 12/17/2018 10:22 [facility] ABS Eosinophils 0.31 0.03 - 0.61 K/cmm 12/17/2018 10:22 [facility] ABS Basophils 0.05 0.01 - 0.11 K/cmm 12/17/2018 10:22 [facility] ABS Immature Grans 0.02 0 - 0.06 K/cmm 12/17/2018 10:22 EDT [facility] Type of Diff: Automated 12/17/2018 10:22 EDT [facility] Blood specimen (specimen) BLOOD SPECIMEN / Unknown 12/17/2018 9:02 EDT 12/17/2018 10:10 EDT Carl Flood MD PACKAGES & DNA PROBE ORDERABLES Performing Organization Address [facility] de Phone Number [facility] [address] [place] [address] * (ABNORMAL) ARTHRITIS 1 (12/17/2018 9:02 EDT) Rheumatoid Factor 11 <12.5 IU/mL 2018 12:47 EDT [facility] ADRIANA Interpretation Positive(A) Negative 12/18/2018 14:19 EDT [facility] Comment: For titers greater [...] Titer Pattern 1:320 Homogeneous 12/18/2018 14:19 EDT [facility] Blood specimen (specimen) BLOOD SPECIMEN / Unknown 12/17/2018 9:02 EDT 12/17/2018 10:10 EDT Carl Flood MD IMMUNOLOGY AND SEROL OGY ORDERABLES Performing Organization Address [facility] Co de Phone Number [facility] [address] [place] [address] * SM (AGEE) ANTIBODY (12/17/2018 9:02 EDT) Sm (Agee) Antibody 1.8 <20 Units 12/19/2018 13:07 EDT [facility] Comment: Negative: <20 Units [...] AND SEROL OGY ORDERABLES Performing Organization Address [facility] de Phone Number [facility] [address] [place] [address] * ANGIOTENSIN CONVERTING ENZYME (LESLI) (12/17/2018 9:02 EDT) Pathologist [facility] Angiotensin Converting Enzyme 32 16 - 85 U/L 12/19/2018 8:10 EDT [facility] Comment: Performed or Referred by: [facility], [address] [place] [id number] Blood specimen (specimen) BLOOD SPECIMEN / Unknown 12/17/2018 9:02 EDT 12/17/2018 10:10 EDT Narrative Authorizing Provider Result Charly Flood MD CHEMISTRY & BLOOD GA S ORDERABLES Performing Organization Address [facility] Number [facility] [address] [place] [address] * ANCA, IFA (12/17/2018 9:02 EDT) [facility] ANCA Interpretation Negative Negative 12/18/2018 14:19 EDT [facility] Comment: ADRIANA Positive, suggest [...] AND SEROL OGY ORDERABLES Performing Organization Address [facility]/ZIP Co de Phone Number [facility] [address] [place] [address] * ANTI DNA (DOUBLE STRAND) (12/17/2018 9:02 EDT) Anti DNA (DS) <12.3 <30 IU/mL 12/19/2018 14:51 EDT [facility] Comment:Results were obtaine d with the [employer] QUANTA Lite dsDNA SC ALMA ROSA assay. Blood specimen (specimen) BLOOD SPECIMEN / Unknown 12/17/2018 9:02 EDT 12/17/2018 10:10 EDT Carl Flood MD IMMUNOLOGY AND SERWALESKA BREAUX ORDERABLES [facility] [address] [place] [address] documented in this encounter Visit Diagnoses Diagnosis [...] documented as of this encounter Care Teams Skin Carver Relationship Specialty Start Date End Date Jennifer Sr MD [facility] [place] [address] PCP - General 12/03/18 08/29/22 documented as of this encounter
--- OUTSIDE RECORDS SUMMARY | 2024-02-13 16:37 | XMS_ITS | Encounter Summary ---
Author Organization [facility] Address [address] [place] [address] Care Team Providers Care Deep Tissue Massage Therapist Name Role Phone Obey Osborn APRN Primary Care Provider [phone] Reason for Referral * Consult (Routine/Next Available) - Specialty Report Received Specialty Diagnoses / Procedures Referred By Contac t Referred To Contact Orthopedic Surgery Diagnoses Pain in both feet Virgil Núñez [place] [address] [place] [address] [facility] [address] [place] [address] Referral ID Status Reason Start Date Expiration Date Visits Requested Visits Authorized [id number] Specialty Report Received Specialty Services Required 08/29/2017 1 1 Question Answer Reason for Request: Bilateral severe foot pain while walking/standing. * Consult (Routine/Next Available) - Specialty Report Received Specialty Diagnoses / Procedures Referred By Contac t Referred To Contact Vascular Surgery Diagnoses Pain in both feet Bilateral leg pain Virgil Núñez [place] [address] [place] [address] [facility] V[facility] [address] [place] [address] Referral ID Status Reason Start Date Expiration Date Visits Requested Visits Authorized [id number] Specialty Report Received Specialty Services Required 08/29/2017 1 1 Question Answer Reason for Request: smoker with sx of angina presenting with bilateral leg pain and color changes of toes with exercise (although also with prolonged sitting) Reason for Visit * Reason Comments Back Pain Encounter Details Date Type Department Care Team (Latest Contact Info) Description 08/29/2017 13:45 EDT Office Visit [facility] Interventional Pain [address] [place], [place] [id number] Virgil Núñez [place] [address] [place] [address] Ann-Marie Escalera MD [address] [place], [place] [id number] Pain in both feet (Primary Dx); Myofascial [...] * Gilberto Ann-Marie - 08/29/2017 1345 EDT [facility] OP follow up visit [...] seeing a medical doctor (was seeing a farm mortgage agent before). Says she did discuss her angina [...] with a Vascular surgeon and with a Muff Winder. Ann-Marie Macias MD Attending attestation: I saw and examined the patient with the resident/fellow. I agree with the findings and plan of care documented in the resident's/fellow's note. Virgil Núñez MD documented in this encounter Plan of Treatment Upcoming Encounters Date Type Department Care Team (Late st Contact Info) Description 04/21/2024 15:00 EST Office Visit [facility] Neurology - [address] [address] Robby Abraham MD [address] [place] [address], [address] [place] [id number] Scheduled Referrals Name Type Priority Associated Diagnoses [...] limb documented in this encounter Care Teams Deep Tissue Massage Therapist Relationship Specialty Start Date End Date Obey Osborn APRN [address] [place] [address] DR HNAEY [address] [place] [address] PCP - General 08/29/17 10/10/18 documented as of this encounter
--- OUTSIDE RECORDS SUMMARY | 2024-02-13 16:37 | XMS_ITS | Encounter Summary ---
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) [...] 04/21/2024 15:00 EST Office Visit [facility] Neurology - S [place] [address] [place] [phone] Robby Abraham MD [address] [place] [address], Level 2 [place] [phone] documented as of this encounter Procedures Procedure Name Priority Date/Time Associated Diagnosis Comments TSH Routine 12/03/2018 15:45 EDT Decline in verbal memory VITAMIN B12 Routine 12/03/2018 15:45 EDT Decline in verbal memory documented in this encounter Results * VITAMIN B12 (12/03/2018 15:45 EDT) Vitamin B-12 678 211 - 911 pg/ml 12/04/2018 10:22 EDT [facility] Blood specimen (specimen) BLOOD SPECIMEN / Unknown 12/03/2018 15:45 EDT 12/03/2018 16:05 EDT Amy Agee MD CHEMISTRY & BLOOD GA S ORDERABLES Performing Organization Address City/[facility]/ZIP Co de Phone Number [facility] [address] [place] [address] * TSH (12/03/2018 15:45 EDT) TSH 0.61 0.47 - 4.68 uIU/ml 12/03/2018 17:01 EDT [facility] Comment: The results of this assay can be falsely lowered due to the consumption of Biotin. Blood specimen (specimen) BLOOD SPECIMEN / Unknown 12/03/2018 15:45 EDT 12/03/2018 16:05 EDT Amy Agee MD CHEMISTRY & BLOOD GA S ORDERABLES [facility] [address] [place] [address] documented in this encounter Visit Diagnoses Diagnosis Decline in verbal memory- Primary documented in this encounter Care Teams Librarian Head Relationship Specialty Start Date End Date Jennifer Sr MD [address] [place] [address] PCP - General 12/03/18 08/29/22 documented as of this encounter
--- OUTSIDE RECORDS SUMMARY | 2024-02-13 16:37 | XMS_ITS | Encounter Summary ---
Author Organization [facility] Address [address] [place] [address] Care Team Providers Care Coal Trimmer Machine Operator Name Role Phone Obey Osborn APRN Primary Care Provider [phone] None, Provider Primary Care Provider Jennifer Rushing MD Primary Care Provider [phone] Jacey Amador Primary Care Provider [phone] Reason for Visit * Reason Onset Date Comments Results 06/13/2018 Encounter Details Date Type Department Care Team (Late st Contact Info) Description 06/13/2018 Telephone [facility] Hematology & Oncology - [address] [address] Yarely Marti MD [address] [place] [address], Level 2 [place] [address] Results Social History Tobacco Use [...] 06/13/2018 1622 EST Entered lab results from [facility] Yasmeen Bulle 06/13/2018 16:24 documented in this encounter Plan of Treatment Upcoming Encounters Date Type Department Care Team (Late st Contact Info) Description 04/21/2024 15:00 EST Office Visit [facility] Neurology - S [address] [address] Robby Abraham MD [address] [place] [address], Level 2 [place] [address] documented as of this encounter [...] on filedocumented in this encounter Care Teams Coal Trimmer Machine Operator Relationship Specialty Start Date End Date Obey Osborn APRN [address] [facility] 2 [place], [place] [id number] PCP - General 08/29/17 10/10/18 None, Provider PCP - General 10/11/18 12/02/18 Jennifer Sr MD [address] [place], [place] [id number] PCP - General 12/03/18 08/29/22 Jacey Amador FNP [address] [place] [phone] PCP - General Family Medicine - Primary Care 08/30/22 documented as of this encounter
--- OUTSIDE RECORDS SUMMARY | 2024-02-13 16:37 | XMS_ITS | Encounter Summary ---
Author Organization [facility] Address [address] [place] [address] Care Team Providers Care Controlled Area Checker Name Role Phone Obey Osborn APRN Primary Care Provider [phone] Reason for Visit * Reason Onset Date Comments New Patient Visit 03/21/2018 Encounter Details Date Type Department Care Team ([facility] st Contact Info) Description 03/21/2018 Telephone [facility] Neurology - [address] [address] Unknown, Doctor New Patient Visit Social History [...] Pisano - 03/26/2018 1308 EST [place] with [facility] is calling to confirm the [...] Info) Description 04/21/2024 15:00 EST Office Visit [facility] Neurology - S [address] [address] Robby Abraham MD 1 [facility], Level 2 [place] [phone] documented as of this encounter Visit Diagnoses Not on filedocumented in this encounter Care Teams Controlled Area Checker Relationship Specialty Start Date End Date Obey Osborn APRN [address] [place] [address] DR [address] [place] [id number] PCP - General 08/29/17 10/10/18 documented as of this encounter
--- OUTSIDE RECORDS SUMMARY | 2024-02-13 16:37 | XMS_ITS | Encounter Summary ---
Author Organization [facility] Address [address] [place] [address] Care Team Providers Care Tie Mill Operator Name Role Phone Obey Osborn APRN Primary Care Provider [phone] None, Provider Primary Care Provider Jennifer Rushing MD Primary Care Provider [phone] Reason for Visit * Reason Onset Date Comments Appointment Related 11/19/2017 Encounter Details Date Type Department Care Team ([facility] Contact Info) Description 11/19/2017 Telephone [facility] Foot & Ankle Program - [address] [address] Talha Oates DPM [address] [place] [address] Appointment Related Social History Tobacco [...] [facility] Neurology - S [address] 7366[address] Robby Abraham MD [address] [place] [address], Level 2 [place] [phone] documented as of this encounter Visit Diagnoses Not on filedocumented in this encounter Care Teams Tie Mill Operator Relationship Specialty Start Date End Date Obey Osborn APRN [address] [place] [address] [phone] PCP - General 08/29/17 10/10/18 None, Provider PCP - General 10/11/18 12/02/18 [place] [address] [place] [address] [address] PCP - General 12/03/18 08/29/22 documented as of this encounter
--- OUTSIDE RECORDS SUMMARY | 2024-02-13 16:37 | XMS_ITS | Encounter Summary ---
Author Organization [facility] Address [address] [place] [address] Care Team Providers Care Cruise Agent Name Role Phone None, Provider Primary Care Provider Jennifer Rushing MD Primary Care Provider [phone] Reason for Visit * Reason Onset Date Comments Appointment Related 10/15/2018 Encounter Details Date Type Department Care Team ([facility] st Contact Info) Description 10/15/2018 Telephone [facility] Adult Neurology - [address] [address] Randall Corey MD [address] [place] [address] Appointment Related Social History Tobacco Use Types [...] Description 04/21/2024 15:00 EST Office Visit [facility] Neurology - S [address] 932921 Robby Abraham MD [address] [place] [address] Level 2 [place] [phone] documented as of this encounter Visit Diagnoses Not on filedocumented in this encounter Care Teams Cruise Agent Relationship Specialty Start Date End Date None, Provider PCP - General 10/11/18 12/02/18 Jennifer Sr MD [address], [address] [address] PCP - General 12/03/18 08/29/22 documented as of this encounter
--- OUTSIDE RECORDS SUMMARY | 2024-02-13 16:37 | XMS_ITS | Encounter Summary ---
Author Organization [facility] Address [address] [place] [address] Care Team Providers Care Asset Recovery Specialist Name Role Phone Obey Osborn APRN Primary Care Provider [phone] Reason for Visit * Office Procedure (Routine) - Closed Specialty Diagnoses / Procedures [facility] Referred To Contact Neurology Diagnoses Neuropathy Procedures EMG/NERVE CONDUCTION STUDY Robby Abraham MD [address] [place] [phone] [facility] Neuromusc & Clin Neurophys [address] [place] [address] Referral ID Status Reason Start Date Expiration Date Visits Re quested Visits Authorized [id number] Closed 01/14/2018 1 1 Encounter Details Date Type Department Care Team (Latest Contact Info) Description 02/27/2018 13:04 EST - 02/27/2018 23:59 EST Hospital Encounter [facility] Neurophysiology - [facility] (Haresh 5) [address] [place], [place] [address] Robby Abraham MD [address] [place] [phone] Neuropathic pain Discharge Disposition: Auto Discharge [...] accuracy and appropriately updated today in the [employer] database. Review of Systems: A full 10 [...] the referring physician MD Robby Dorantes M.D. Engine Room Operator of Neurology ABPN Board Certified, Neurology ABEM Board Certified, EMG documented in this encounter Plan of Treatment Upcoming Encounters Date Type Department Care Team (Late st Contact Info) Description 04/21/2024 15:00 EST Office Visit [facility] Neurology - S [address] 6[address] Robby Abraham MD [address] [place] [address], Level 2 [place] [phone] documented as of this encounter Procedures Procedure Name Priority Date/Time Associated Diagnosis Comments ELECTROMYOGRAM - SCANNED 03/04/2018 7:59 EST documented in this encounter Results * ELECTROMYOGRAM - SCANNED (03/04/2018 7:59 EST) 03/04/2018 7:59 EST Scan 2 Air Conditioning Mechanic Industrial PROCEDURE/MINOR MAIRA GICAL ORDERABLES documented in this encounter Visit Diagnoses Diagnosis Neuropathic pain Neuralgia, neuritis, and radiculitis, unspecified documented in this encounter Care Teams Asset Recovery Specialist Relationship Specialty Start Date End Date Obey Osborn APRN [address] [place] [address] [address] [place], [place] [address] PCP - General 08/29/17 10/10/18 documented as of this encounter
--- OUTSIDE RECORDS SUMMARY | 2024-02-13 16:37 | XMS_ITS | Encounter Summary ---
Author Organization [facility] Address [address] [place] [address] Care Team Providers Care Litigation Attorney Name Role Phone None, Provider Primary Care Provider Jennifer Rushing MD Primary Care Provider [phone] Reason for Visit * Reason Onset Date Comments Appointment Related 10/15/2018 Encounter Details Date Type Department Care Team ([facility] st Contact Info) Description 10/15/2018 Telephone [facility] Rheumatology & Immunology - [address] [address] Carl Flood Chi, MD [address] [place] [address], Level 5 [place] [address] Appointment Related Social History Tobacco [...] Description 04/21/2024 15:00 EST Office Visit [facility] Neurology - S [address] [address]991 Robby Abraham MD [address] [place] [address] Level 2 [place] [phone] documented as of this encounter Visit Diagnoses Not on filedocumented in this encounter Care Teams Litigation Attorney Relationship Specialty Start Date End Date None, Provider PCP - General 10/11/18 12/02/18 Jennifer Sr MD [address], [address] [address] PCP - General 12/03/18 08/29/22 documented as of this encounter
--- OUTSIDE RECORDS SUMMARY | 2024-02-13 16:37 | XMS_ITS | Encounter Summary ---
Author Organization [facility] Address [address] [place] [address] Care Team Providers Care Area Development Consultant Name Role Phone Obey Osborn APRN Primary Care Provider [phone] Encounter Details Date Type Department Care Team (Late Contact Info) Description 06/10/2018 Orders Only [facility] Adult Neurology - Main [place] [address] [place], [place] [address] Randall Corey MD [address] [place] [address] Other fatigue (Primary Dx) Social History Tobacco [...] Visit [facility] Neurology - S [place] [address] [place] [phone] Robby Abraham MD 1 [facility], Level 2 [place] [address] documented as of this encounter Visit Diagnoses Diagnosis Other fatigue- Primary documented in this encounter Care Teams Area Development Consultant Relationship Specialty Start Date End Date Obey Osborn APRN [address] [place] [address] [address] [place] [address] PCP - General 08/29/17 10/10/18 documented as of this encounter
--- OUTSIDE RECORDS SUMMARY | 2024-02-13 16:37 | XMS_ITS | Encounter Summary ---
Author Organization [facility] Address [address] [place] [address] Care Team Providers Care Music Director Name Role Phone Obey Osborn APRN Primary Care Provider [phone] Reason for Referral * Office Procedure (Routine) - Closed Specialty Diagnoses / Procedures Referred By Mayda jalloh Referred To Contact Neurology Diagnoses Neuropathy Procedures EMG/NERVE CONDUCTION STUDY Robby Abraham MD [address] [place] [phone] [facility] Neuromusc & Clin Neurophys [address] [place] [address] Referral ID Status Reason Start Date Expiration Date Visits Re quested Visits Authorized [id number] Closed 01/14/2018 1 1 Reason for Visit * Reason Comments New Patient Visit * Referral (Routine) - Closed Specialty Diagnoses / Procedures Referred By Contashu t Referred To Contact Neurology Diagnoses Neuropathy of foot, unspecified laterality bOey Osborn APRN [address] [place] [address] [address] [place] [address] Juan David Mayberry MD [address] [place] [phone] Referral ID Status Reason Start Date Expiration Date Visits Re quested Visits Authorized [id number] Closed 1 1 Encounter Details Date Type Department Care Team ([facility] st Contact Info) Description 01/14/2018 13:00 EDT Office Visit [facility] Neurology - S [address] [phone] Robby Abraham MD [address] [place] [address], Level 2 [place] [address] Neuropathy (Primary Dx) Discharge Disposition: [...] Diagnoses Diagnosis G62.9 Polyneuropathy, unspecified-G62.9[ICD-10-CM] Z79.899 Other snf (current) drug therapy-Z79.899[ICD-10-CM] documented in this encounter [...] started sometime around 2011. She was in [place] inearly 2011 and got what sounds like [...] past including recently 2 different physicians at [facility]. She mentions a variety of diagnoses [...] rheumatologic disorder. She was previously seen at [facility] as well. I the notes from [...] completed. In terms of other workup at [facility] notes reflect an MRI of the C-spine that was unremarkable from 2016 with only mild narrow canal centrally at C5-6 and some mild neuroforaminal narrowing at levels including C6-7. Previous work up: (all lab values and available NCS/ EMG studies/ and imaging studies tracings were independently reviewed.) Abnormal labs:ADRIANA positive at 1-320 in a speckled pattern Normal labs: Thyroid antibodies, folate, DIRECTOR COMMUNICATIONS antibodies, SSA/SSB, CMP, Lyme, C4 minimally elevated at 40, rheumatoid factor, anti-Agee antibodies, rzlu-pwyhpc-zlvmarkr DNA, parvovirus, CMV, mycoplasma pneumonia IgG positive, [...] History: Diagnosis Date ??? Angina at rest ([facility]) ??? Chronic back pain ??? Chronic [...] is reduced in the feet bilaterally Coordination: Rduwcu-yk-wkpi and wkww-px-raip are intact. Rapid alternating movements are fast [...] neuropathy. I reviewed her previous workup at [facility] in detail and none of her [...] and no evidenceof rheumatologic disorder per her observation assistant. I do not see vitamin studies anywhere [...] referring physician Obey Osborn. Robby Abraham M.D. Film Technician of Neurology ABPN Board Certified, Neurology ABEM Board Certified, EMG documented in this encounter Plan of Treatment Upcoming Encounters Date Type Department Care Team (Late st Contact Info) Description 04/21/2024 15:00 EST Office Visit [facility] Neurology - S [address] [phone] Robby Abraham MD [address] [place] [address] Level 2 [place] [phone] Scheduled Orders Name Type Priority Associated Diagnoses Orde r Schedule EMG/NERVE CONDUCTION STUDY Procedures Routine Neuropathy Ordered: 01/14/2018 documented as of this encounter Procedures Procedure Name Priority Date/Time Associated Diagnosis Comments PATHOLOGY - SCANNED 01/15/2018 12:23 EDT documented in this encounter Results * PATHOLOGY - SCANNED (01/15/2018 12:23 EDT) 01/15/2018 12:2 3 EDT Scan 2 Coding Specialist Home Health LAB INFO SERVICE AN D SUPPORT & PHONE RESULT * HEMOGLOBIN A1C (01/14/2018 14:18 EDT) Hemoglobin A1C 5.7 % 01/15/2018 9:48 [facility] Comment: Reference Range: <5.7% Normal 5.7-6.4% Prediabetes =>6.5% Diagnostic for diabetes (if confirmed) Goals for glycemic control in diabetes ADA 2017 For non adults with diabetes: ?? Target <7.0% For children and adolescents with type 1 diabetes: ?? Target <7.5% More or less stringent targets may be appropriate for individual patients. Est Avg Glucose 117 mg/dl 8 9:48 T [facility] Comment: eAG represents the A1c result expressed as average glucose in mg/dl. Blood specimen (specimen) BLOOD SPECIMEN / Unknown 01/14/2018 14:18 EDT 01/14/2018 15:26 EDT Robby Abraham MD CHEMISTRY & BLOOD GA S ORDERABLES [facility] [address] [place] [address] * SPEP WITH IMMUNOTYPING (01/14/2018 14:18 EDT) Total Protein 7.2 6.3 - 8.2 g/dl 01/14/2018 16:03 [facility] Albumin % 62.4 55.8 - 66.1 % 01/15/2018 13:12 [facility] Alpha-1 % 3.8 2.9 - 4.9 % 01/15/2018 13:12 [facility] Alpha-2 % 10.3 7.1 - 11.8 % 01/15/2018 13:12 [facility] Beta % 11.4 8.4 - 13.1 % 01/15/2018 13:12 [facility] Gamma % 12.1 11.1 - 18.8 % 01/15/2018 13:12 [facility] Comments 01/15/2018 13:12 [facility] Comment: No apparent monoclonal protein on serum electrophoresis. See Pathology Scanned Report in PRISM. Immunotyping, Serum 01/15/2018 14:24 EDT [facility] Comment: Interpretation: Negative for monoclonal immunoglobulins. Interpreted by: ??Antonio Sorensen MD ON 01/15/2018 1424 Reference Range: Negative for monoclonal immunoglobulins. Blood specimen (specimen) BLOOD SPECIMEN / Unknown 01/14/2018 14:18 EDT 01/14/2018 15:26 EDT Robby Abraham MD CHEMISTRY & BLOOD GA S ORDERABLES [facility] [address] [place] [address] documented in this encounter Visit Diagnoses Diagnosis [...] 12/17/2018 added in this encounter Care Teams Music Director Relationship Specialty Start Date End Date Obey Osborn APRN [address] [place] [address] [address] [place] [address] PCP - General 08/29/17 10/10/18 documented as of this encounter
--- OUTSIDE RECORDS SUMMARY | 2024-02-13 16:37 | XMS_ITS | Encounter Summary ---
Author Organization [facility] Address [address] [place] [address] Care Team Providers Care Research Engineer Name Role Phone Obey Osborn APRN Primary Care Provider [phone] Encounter Details Date Type Department Care Team (Late Contact Info) Description 03/20/2018 Orders Only [address] [address] Robby Abraham MD [address] [place] [address] Level 2 [place] [address] Neuropathy (Primary Dx) Social History [...] 15:00 EST Office Visit [facility] [address] [address] Robby Abraham MD 1 [facility], Level 2 [place] [phone] documented as of this encounter Visit Diagnoses Diagnosis Neuropathy- Primary Mononeuritis of unspecified site documented in this encounter Care Teams Research Engineer Relationship Specialty Start Date End Date Obey Osborn APRN [address] [place] [address] [address] PCP - General 08/29/17 10/10/18 documented as of this encounter
--- OUTSIDE RECORDS SUMMARY | 2024-02-13 16:37 | XMS_ITS | Encounter Summary ---
Author Organization [facility] Address [address] [place] [address] Care Team Providers Care Accounting Software Specialist Name Role Phone Jennifer Sr MD Primary Care Provider [phone] Encounter Details Date Type Department Care Team ([facility] st Contact Info) Description 12/17/2018 8:43 EDT - 12/17/2018 23:59 EDT Hospital Encounter [address] [address] Carl Flood Chi, MD [address] [place] [address], Level [address] [place] [address] Discharge Disposition: Auto Discharge Social History Tobacco [...] Info) Description 04/21/2024 15:00 EST Office Visit [facility] Neurology - S [address] [phone] Robby Abraham MD [address] [place] [address], Level [address] [place] [address] documented as of this encounter Visit Diagnoses Not on filedocumented in this encounter Care Teams Accounting Software Specialist Relationship Specialty Start Date End Date Jennifer Sr MD [address] [place] [address] PCP - General 12/03/18 08/29/22 documented as of this encounter
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
--- OUTSIDE RECORDS SUMMARY | 2024-02-13 16:37 | XMS_ITS | Encounter Summary ---
Author Organization [facility] Address [address] [place] [address] Care Team Providers Care Sludge Filtration Operator Name Role Phone Obey Osborn APRN Primary Care Provider [phone] Encounter Details Date Type Department Care Team ([facility] Contact Info) Description 08/31/2017 Orders Only Vascular Surgery and Endovascular Therapy - [address] [address] Macho Fernandez MD [address] [place] [address], Level 5 [place] [phone] Pain in both lower extremities (Primary Dx) [...] [facility] Contact Info) Description 04/21/2024 15:00 EST Office Visit [facility] - S [place] [address] [place], [place] [address] Robby Abraham MD 1 [facility], Level 2 [place] [address] documented as of this encounter Procedures Procedure Name Priority Date/Time Associated Diagnosis Comments VL LOWER ARTERIAL DUPLEX BILATERAL Routine 10/09/2017 13:54 EDT documented in this encounter Results * VL LOWER ARTERIAL DUPLEX BILATERAL (10/09/2017 13:54 EDT) Anatomical Region Laterality Modality Other 10/09/2017 13:5 4 EDT Narrative 10/11/2017 11:01 EDT Vascular Diagnostic Laboratory [facility], [facility], Level [address] [place] [address] Technologist: Jutsin Arora Fellow: IMPRESSIONS 1. No evidence of [...] ?? Flow analysis + +-------+ + Right BRINE PURIFIER ? 88cm/s ? + +-------+ + Right PFA ? 62cm/s ? + +-------+ + Right SFA - prox 108cm/s ? + +-------+ + Right SFA - mid 88cm/s ? + +-------+ + Right SFA - dist 75cm/s ? + +-------+ + Right POP-ak ? 65cm/s ? + +-------+ + Right POP ? 80cm/s ? + +-------+ + Right MINI LAB OPERATOR ? Triphasic ? + +-------+ + Right DPA ? Triphasic ? + +-------+ + Left BRINE PURIFIER ? 74cm/s ? + +-------+ + Left PFA ? 73cm/s ? + +-------+ + Left SFA - prox 145cm/s ? + +-------+ + Left SFA - mid ?? 114cm/s ? + +-------+ + Left SFA - dist 77cm/s ? + +-------+ + Left POP-ak ? 49cm/s ? + +-------+ + Left POP ? 84cm/s ? + +-------+ + Left MINI LAB OPERATOR ? Triphasic ? + +-------+ + Left DPA ? Triphasic ? + +-------+ + * Electronically signed by: Macho Fernandez 10/11/2017 11:01 Procedure Note Macho Fernandez MD - 10/11/2017 Vascular Diagnostic Laboratory [facility], Level 5 [address] [place] [address] Technologist: Justin Arora Fellow: IMPRESSIONS 1. No [...] sys Flow analysis + +-------+ + Right BRINE PURIFIER 88cm/s + +-------+ + Right PFA 62cm/s + +-------+ + Right SFA - prox 108cm/s + +-------+ + Right SFA - mid 88cm/s + +-------+ + Right SFA - dist 75cm/s + +-------+ + Right POP-ak 65cm/s + +-------+ + Right POP 80cm/s + +-------+ + Right MINI LAB OPERATOR Triphasic + +-------+ + Right DPA Triphasic + +-------+ + Left BRINE PURIFIER 74cm/s + +-------+ + Left PFA 73cm/s + +-------+ + Left SFA - prox 145cm/s + +-------+ + Left SFA - mid 114cm/s + +-------+ + Left SFA - dist 77cm/s + +-------+ + Left POP-ak 49cm/s + +-------+ + Left POP 84cm/s + +-------+ + Left MINI LAB OPERATOR Triphasic + +-------+ + Left DPA Triphasic + +-------+ + * Electronically signed by: Macho Fernandez 10/11/2017 11:01 Macho Fernandez MD IMG US VASCULAR O RDERABLES documented in this encounter Visit Diagnoses Diagnosis Pain in both lower extremities- Primary documented in this encounter Care Teams Sludge Filtration Operator Relationship Specialty Start Date End Date Obey Osborn APRN [address] [place] [address] PCP - General 08/29/17 10/10/18 documented as of this encounter
--- OUTSIDE RECORDS SUMMARY | 2024-02-13 16:37 | XMS_ITS | Encounter Summary ---
Author Organization [facility] Address [address] [place] [address] Care Team Providers Care Recording Clerk Name Role Phone Jennifer Sr MD Primary Care Provider [phone] Encounter Details Date Type Department Care Team (Latest Contact Info) Description 12/03/2018 15:33 EDT - 12/03/2018 23:59 EDT Hospital Encounter [address] [address] Randall Corey MD [address] [place] [address] Discharge Disposition: Auto Discharge Social History Tobacco [...] Description 04/21/2024 15:00 EST Office Visit [facility] Neurology - S [address] [address] Robby Abraham MD [address] [place] [address], Level 2 [place] [address] documented as of this encounter Visit Diagnoses Not on filedocumented in this encounter Care Teams Recording Clerk Relationship Specialty Start Date End Date Jennifer Sr MD [address], [address] [address] PCP - General 12/03/18 08/29/22 documented as of this encounter
--- OUTSIDE RECORDS SUMMARY | 2024-02-13 16:37 | XMS_ITS | Encounter Summary ---
Author Organization [facility] Address [address] [place] [address] Care Team Providers Care University Demonstrator Name Role Phone Obey Osborn APRN Primary Care Provider [phone] Reason for Visit * Reason Onset Date Comments Paperwork request 02/27/2018 Encounter Details Date Type Department Care Team ([facility] st Contact Info) Description 02/27/2018 Telephone [facility] Neurology - S [address] [address] Robby Abraham MD [address] [place] [address] Level 2 [place] [phone] Paperwork request Social History Tobacco Use Types [...] Visit [facility] Neurology - S [address] [address] Robby Abraham MD [address] [place] [address], Level 2 [place] [phone] documented as of this encounter Visit Diagnoses Not on filedocumented in this encounter Care Teams University Demonstrator Relationship Specialty Start Date End Date Obey Osborn APRN [address] [place] [address] DR HANEY [address] [place] [phone] PCP - General 08/29/17 10/10/18 documented as of this encounter
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
--- OUTSIDE RECORDS SUMMARY | 2024-02-13 16:37 | XMS_ITS | Encounter Summary ---
Author Organization [facility] Address [address] [place] [address] Care Team Providers Care Satellite Communications Operator Name Role Phone Obey Osborn APRN Primary Care Provider [phone] Encounter Details Date Type Department Care Team (Late Contact Info) Description 10/03/[address] [facility] General Surgery - [address] [address] Macho Fernandez MD [address] [place] [address], Level 5 [place] [phone] Social History Tobacco Use Types Packs/Day Years [...] 15:00 EST Office Visit [facility] Neurology - S [address] [address] Robby Abraham MD 1 [facility], Level 2 [place] [address] documented as of this encounter Visit Diagnoses Not on filedocumented in this encounter Care Teams Satellite Communications Operator Relationship Specialty Start Date End Date Obey Osborn APRN [address] [place] [address] DR HANEY [address] [place] [id number] PCP - General 08/29/17 10/10/18 documented as of this encounter
--- OUTSIDE RECORDS SUMMARY | 2024-02-13 16:37 | XMS_ITS | Encounter Summary ---
Author Organization [facility] Address [address] [place] [address] Care Team Providers Care Buildings And Grounds Superintendent Name Role Phone Obey Osborn APRN Primary Care Provider [phone] Encounter Details Date Type Department Care Team ([facility] Contact Info) Description 01/14/2018 Phlebotomy Only [address] [address] Medical Imaging Technologist, Outpatient Neuropathy (Primary Dx) Social History Tobacco [...] [facility] Neurology - S [place] [address] [place], [place] [address] Robby Abraham MD [address] [place] [address], Level 2 [place] [address] documented as of this encounter Procedures Procedure Name Priority Date/Time Associated Diagnosis Comments SPEP WITH IMMUNOTYPING Routine 01/14/2018 14:18 EDT Neuropathy HEMOGLOBIN A1C Routine 01/14/2018 14:18 EDT Neuropathy documented in this encounter Results * HEMOGLOBIN A1C (01/14/2018 14:18 EDT) Hemoglobin A1C 5.7 % 01/15/2018 9:48 EDT [facility] Comment: Reference Range: <5.7% Normal 5.7-6.4% Prediabetes =>6.5% Diagnostic for diabetes (if confirmed) Goals for glycemic control in diabetes ADA 2017 For non adults with diabetes: ?? Target <7.0% For children and adolescents with type 1 diabetes: ?? Target <7.5% More or less stringent targets may be appropriate for individual patients. Est Avg Glucose 117 mg/dl 8 9:48 EDT [facility] Comment: eAG represents the A1c result expressed as average glucose in mg/dl. Blood specimen (specimen) BLOOD SPECIMEN / Unknown 01/14/2018 14:18 EDT 01/14/2018 15:26 EDT Robby Abraham MD CHEMISTRY & BLOOD GA S ORDERABLES [facility] [address] [place] [address] * SPEP WITH IMMUNOTYPING (01/14/2018 14:18 EDT) Total Protein 7.2 6.3 - 8.2 g/dl 01/14/2018 16:03 EDT [facility] Albumin % 62.4 55.8 - 66.1 % 01/15/2018 13:12 EDT [facility] Alpha-1 % 3.8 2.9 - 4.9 % 01/15/2018 13:12 T [facility] Alpha-2 % 10.3 7.1 - 11.8 % 01/15/2018 13:12 EDT [facility] Beta % 11.4 8.4 - 13.1 % 01/15/2018 13:12 EDT [facility] Gamma % 12.1 11.1 - 18.8 % 01/15/2018 13:12 T [facility] Comments 01/15/2018 13:12 T [facility] Comment: No apparent monoclonal protein on serum electrophoresis. See Pathology Scanned Report in PRISM. Immunotyping, Serum 01/15/2018 14:24 EDT [facility] Comment: Interpretation: Negative for monoclonal immunoglobulins. Interpreted by: ??Antonio Sorensen MD ON 01/15/2018 1424 Reference Range: Negative for monoclonal immunoglobulins. Blood specimen (specimen) BLOOD SPECIMEN / Unknown 01/14/2018 14:18 EDT 01/14/2018 15:26 EDT Robby Abraham MD CHEMISTRY & BLOOD GA S ORDERABLES [facility] [address] [place] [address] documented in this encounter Visit Diagnoses Diagnosis Neuropathy- Primary Mononeuritis of unspecified site documented in this encounter Care Teams Buildings And Grounds Superintendent Relationship Specialty Start Date End Date Obey Osborn APRN [address] [place] [address] [address]ANEY [address] [place] [address] PCP - General 08/29/17 10/10/18 documented as of this encounter
--- OUTSIDE RECORDS SUMMARY | 2024-02-13 16:37 | XMS_ITS | Encounter Summary ---
Author Organization [facility] Address [address] [place] [address] Care Team Providers Care Food And Beverage Server Name Role Phone Obey Osborn APRN Primary Care Provider [phone] Reason for Visit * Reason Onset Date Comments Other 09/17/2017 Encounter Details Date Type Department Care Team ([facility] Contact Info) Description 09/17/2017 Telephone [facility] Interventional Pain [address] [place], [place] [phone] Virgil Núñez [place] [address] [place] [address] Other Social History Tobacco Use [...] with a Vascular surgeon and with a Aviation Survival Technician RN attempted to contact patient. LM to [...] difficult. Please advise. Patients phone number is [phone] documented in this encounter Plan of Treatment Upcoming Encounters Date Type Department Care Team (Late st Contact Info) Description 04/21/2024 15:00 EST Office Visit [facility] Neurology - S [place] [address] [place], [place] [address] Robby Abarham MD 1 [facility], Level 2 [place] [phone] documented as of this encounter Visit Diagnoses Not on filedocumented in this encounter Care Teams Food And Beverage Server Relationship Specialty Start Date End Date Obey Osborn APRN [address] [place] [address] DR HANEY [address] [place] [phone] PCP - General 08/29/17 10/10/18 documented as of this encounter
--- OUTSIDE RECORDS SUMMARY | 2024-02-13 16:37 | XMS_ITS | Encounter Summary ---
Author Organization [facility] Address [address] [place] [address] Care Team Providers Care Vice President Of News Name Role Phone Obey Osborn APRN Primary Care Provider [phone] Reason for Visit * Reason Onset Date Comments Appointment Related 01/15/2018 Encounter Details Date Type Department Care Team ([facility] Contact Info) Description 01/15/2018 Telephone [facility] Neurophysiology - [facility] ([facility]) [address] [place], [place] [phone] Robby Abraham MD [address] [place] [address] Level 2 [place] [phone] Appointment Related Social History Tobacco Use Types [...] Telephone Encounter - Aydee Pisano - 02/20/2018 1424 EST Spoke to Aydee and reschedule her [...] Office Visit [facility] Neurology - S [address] [address] Robby Abraham MD [address] [place] [address], Level 2 [place] [phone] documented as of this encounter Visit Diagnoses Not on filedocumented in this encounter Care Teams Vice President Of News Relationship Specialty Start Date End Date Obey Osborn APRN [address] [place] [address] [address] HANEY [address] [place], [place] [phone] PCP - General 08/29/17 10/10/18 documented as of this encounter
--- OUTSIDE RECORDS SUMMARY | 2024-02-13 16:37 | XMS_ITS | Encounter Summary ---
Author Organization [facility] Address [address] [place] [address] Care Team Providers Care Airport Sales Agent Name Role Phone Obey Osborn APRN Primary Care Provider [phone] Encounter Details Date Type Department Care Team (Late Contact Info) Description 06/21/2018 Results Only Imaging [facility] [phone] Unknown, Provider, Social History Tobacco Use Types [...] [facility] Neurology - S [address] [address] Robby Abraham MD [address] [place] [address], Level 2 [place] [address] Pending Results Name Type Priority Associated Diagnoses Date /Time OUTSIDE IMAGES - MR NEURO Imaging 06/21/2018 10:04 EDT OUTSIDE IMAGES - MR NEURO Imaging 06/21/2018 10:04 EDT documented as of this encounter Visit Diagnoses Not on filedocumented in this encounter Care Teams Airport Sales Agent Relationship Specialty Start Date End Date Obey Osborn APRN [address] [place] [address] [address]ANEY [address] [place] [address] PCP - General 08/29/17 10/10/18 documented as of this encounter
--- OUTSIDE RECORDS SUMMARY | 2024-02-13 16:37 | XMS_ITS | Encounter Summary ---
Author Organization [facility] Address [address] [place] [address] Care Team Providers Care Embedded Case Manager Name Role Phone Porsha Louise ND Primary Care Provider Malina matamoros Reason for Visit * Reason Onset Date Comments Update 05/25/2017 Encounter Details Date Type Department Care Team ([facility] st Contact Info) Description 05/25/2017 Telephone [facility] Spine Program - [address] [place] [address] Nick Gomez PA-C [facility] Melon [facility] [place] [address] Update Social History Tobacco Use [...] - 05/25/2017 1602 EST Patient is in [place] and went to a new doctor for her back symptoms, she received additional information she would like to share with us, see if Jason has anything to put towards the additional information. She is scheduled for an injection in July that she will most likely keep at this point, she is not moving to [place] till January so she would like to [...] 04/21/2024 15:00 EST Office Visit [facility] Neurology - S [address] [phone] Robby Abraham MD [address] [place] [address], Level [address] [place] [phone] documented as of this encounter Visit Diagnoses Not on filedocumented in this encounter Care Teams Embedded Case Manager Relationship Specialty Start Date [place] [address] PCP - General 02/06/17 08/28/17 documented as of this encounter
--- OUTSIDE RECORDS SUMMARY | 2024-02-13 16:37 | XMS_ITS | Encounter Summary ---
Author Organization [facility] Address [address] [place] [address] Care Team Providers Care Combination Presser Name Role Phone Obey Osborn APRN Primary Care Provider [phone] Reason for Visit * Reason Onset Date Comments Labs Only 03/18/2018 Encounter Details Date Type Department Care Team ([facility] st Contact Info) Description 03/18/2018 Telephone [facility] Neurology - S [address] [address] Robby Abraham MD [address] [place] [address] Level 2 [place] [phone] Labs Only Social History Tobacco Use Types [...] Yañez - 03/18/2018 1412 EST Stephanie from [facility] Lab Billing called and said Dr Abraham [...] Office Visit [facility] Neurology - S [address] [phone] Robby Abraham MD [address] [place] [address], Level [address] [place] [phone] documented as of this encounter Visit Diagnoses Not on filedocumented in this encounter Care Teams Combination Presser Relationship Specialty Start Date End Date Obey Osborn APRN [address] [place] [address] [address] [place], [place] [phone] PCP - General 08/29/17 10/10/18 documented as of this encounter
--- OUTSIDE RECORDS SUMMARY | 2024-02-13 16:37 | XMS_ITS | Encounter Summary ---
Author Organization [facility] Address [address] [place] [address] Care Team Providers Care Supervisor Line Department Name Role Phone Obey Osborn APRN Primary Care Provider [phone] Reason for Visit * Reason Onset Date Comments Appointment Related 09/28/2017 Encounter Details Date Type Department Care Team ([facility] st Contact Info) Description 09/28/2017 Telephone [facility] Neurology - S [address] [phone] Unknown, Doctor MD Appointment Related Social History [...] Info) Description 04/21/2024 15:00 EST Office Visit [facility] Neurology - S [address] [address] Robby Abraham MD [address] [place] [address], Level 2 [place] [phone] documented as of this encounter Visit Diagnoses Not on filedocumented in this encounter Care Teams Supervisor Line Department Relationship Specialty Start Date End Date Obey Osborn APRN [address] [place] [address] [address] [place], [place] [phone] PCP - General 08/29/17 10/10/18 documented as of this encounter
--- OUTSIDE RECORDS SUMMARY | 2024-02-13 16:37 | XMS_ITS | Encounter Summary ---
Author Organization [facility] Address [address] [place] [address] Care Team Providers Care Bindery Leadperson Name Role Phone Jennifer Sr MD Primary Care Provider [phone] Encounter Details Date Type Department Care Team (Late Contact Info) Description 12/17/2018 Phlebotomy Only [address] [address] [employer] [place], Outpatient Positive ADRIANA (antinuclear antibody); Malaise and [...] Upcoming Encounters Date Type Department Care Team ([facility] Contact Info) Description 04/21/2024 15:00 EST Office Visit [facility] Neurology - S [address] [address] Robby Abraham MD 1 [facility], Level 2 [place] [phone] documented as of this encounter Procedures Procedure [...] Positive ADRIANA (antinuclear antibody) Small fiber neuropathy MOLD WASHER ANTIBODY, IGG Routine 12/17/2018 9:0 2 EDT [...] <12.3 <30 IU/mL 12/19/2018 14:51 EDT [facility] Comment:Results were obtaine d with the INOVA QUANTA Lite dsDNA SC ALMA ROSA assay. Blood specimen (specimen) BLOOD SPECIMEN / Unknown 12/17/2018 9:02 EDT 12/17/2018 10:10 EDT Carl Flood MD IMMUNOLOGY AND SEROL SAEID ORDERABLES [facility] [address] [place] [address] * ANCA, IFA (12/17/2018 9:02 EDT) ANCA Interpretation Negative Negative 12/18/2018 14:19 EDT [facility] Comment: ADRIANA Positive, suggest [...] AND SEROL OGY ORDERABLES Performing Organization Address [facility] de Phone Number [facility] [address] [place] [address] * ANGIOTENSIN CONVERTING ENZYME (LESLI) (12/17/2018 9:02 EDT) Angiotensin Converting Enzyme 32 16 - 85 U/L 12/19/2018 8:10 EDT [facility] Comment: Performed or Referred by: [facility], [address] [place] [id number] Blood specimen (specimen) BLOOD SPECIMEN / Unknown 12/17/2018 9:02 EDT 12/17/2018 10:10 EDT Narrative Authorizing Provider Result Charly Flood MD CHEMISTRY & BLOOD GA S ORDERABLES Performing Organization Address [facility] Number [facility] [address] [place] [address] * SM (AGEE) ANTIBODY (12/17/2018 9:02 EDT) Sm (Agee) Antibody 1.8 <20 Units 12/19/2018 13:07 EDT [facility] Comment: Negative: <20 Units Weak Positive: 20 - 39 Units Moderate Positive: 40 - 80 Units Strong Positive: >80 Units Results were obtained with the [email or web address] QUANTA Lite Sm ALMA ROSA. Sm values obtained with different manufacturers' assay methods may not be used interchangeably. The magnitude of the reported IgG levels cannot be correlated to an endpoint titer. Blood specimen (specimen) BLOOD SPECIMEN / Unknown 12/17/2018 9:02 EDT 12/17/2018 10:10 EDT Narrative Authorizing Provider Result Charly Flood MD IMMUNOLOGY AND SEROL OGY ORDERABLES Performing Organization Address [facility]/State/ZIP Co de Phone Number [facility] [address] [place] [address] * (ABNORMAL) ARTHRITIS 1 (12/17/2018 9:02 EDT) Rheumatoid Factor 11 <12.5 IU/mL 2018 12:47 [facility] ADRIANA Interpretation Positive(A) Negative 12/18/2018 14:19 [facility] Comment: For titers greater than [...] ADRIANA Titer Pattern 1:320 Homogeneous 12/18/2018 14:19 [facility] Blood specimen (specimen) BLOOD SPECIMEN / Unknown 12/17/2018 9:02 EDT 12/17/2018 10:10 EDT Carl Flood MD IMMUNOLOGY AND SERWALESKA BREAUX ORDERABLES [facility] [address] [place] [address] * (ABNORMAL) COMPLETE BLOOD COUNT AND DIFFERENTIAL (12/17/2018 9:02 EDT) WBC 8.88 4.0 - 12.4 K/cmm 12/17/2018 10:22 [facility] RBC 4.31 3.86 - 5.04 M/cmm 12/17/2018 10:22 [facility] Hemoglobin 13.8 11.6 - 15.2 gm/dl 12/17/2018 10:22 [facility] HCT 40.6 34.9 - 44.4 % 12/17/2018 10:22 [facility] MCV 94 81 - 98 fl 12/17/2018 10:22 [facility] MCH 32.0 26.7 - 33.3 pg 12/17/2018 10:22 [facility] MCHC 34.0 32.1 - 35.9 gm/dl 12/17/2018 10:22 [facility] RDW-CV 11.9 <14.7 % 12/17/2018 10:22 [facility] RDW-SD 41.2 <50.4 fl 12/17/2018 10:22 [facility] PLT 316 141 - 377 K/cmm 12/17/2018 10:22 [facility] MPV 9.5 9.5 - 12.7 fl 12/17/2018 10:22 [facility] % Neutrophils 50.4 % 12/17/2018 10:22 [facility] % Lymphocytes 38.3 % 12/17/2018 10:22 [facility] % Monocytes 7.0 % 12/17/2018 10:22 [facility] % Eosinophils 3.5 % 12/17/2018 10:22 [facility] % Basophils 0.6 % 12/17/2018 10:22 [facility] % Immature Grans 0.2 % 12/17/2018 10:22 [facility] ABS Neutrophils 4.48 2.20 - 8.85 K/cmm 12/17/2018 10:22 [facility] ABS Lymphs 3.40(H) 1.09 - 3.30 K/cmm 12/17/2018 10:22 [facility] ABS Monocytes 0.62 0.1 - 0.8 K/cmm 12/17/2018 10:22 [facility] ABS Eosinophils 0.31 0.03 - 0.61 K/cmm 12/17/2018 10:22 [facility] ABS Basophils 0.05 0.01 - 0.11 K/cm 12/17/2018 10:22 [facility] ABS Immature Grans 0.02 0 - 0.06 K/cm 12/17/2018 10:22 [facility] Type of Diff: Automated 12/17/2018 10:22 [facility] Blood specimen (specimen) BLOOD SPECIMEN / Unknown 12/17/2018 9:02 EDT 12/17/2018 10:10 EDT Carl Flood MD PACKAGES & DNA PROBE ORDERABLES [facility] [address] [place] [address] * (ABNORMAL) COMPREHENSIVE METABOLIC PANEL (CMP) (12/17/2018 9:02 EDT) Potassium 3.9 3.5 - 5.0 mEq/L 12/17/2018 12:00 [facility] Sodium 141 136 - 145 mEq/L 12/17/2018 12:00 [facility] Chloride 103 96 - 110 mEq/L 12/17/2018 12:00 [facility] CO2 29 22 - 32 mEq/L 12/17/2018 12:00 [facility] Total Alkaline Phosphatase 56 38 - 126 U/L 12/17/2018 12:00 [facility] Bilirubin, Total <0.5 <1.4 mg/dl 12/18/19 19 12:00 [facility] AST 20 15 - 46 U/L 12/17/2018 12:00 [facility] ALT 18 <34 U/L 12/17/2018 12:00 [facility] Albumin 4.4 3.4 - 4.9 g/dl 12/17/2018 12:00 [facility] Total Protein 7.2 6.3 - 8.2 g/dl 12/17/2018 12:00 [facility] Creatinine 0.59 0.52 - 1.04 mg/dl 12/17/2018 12:00 [facility] GFR, Calculated 104 >60 ml/min/1.7 3m2 12/17/2018 12:00 [facility] Comment: eGFR calculated using CKD-EPI equation for non Americans. Multiply eGFR by 1.16 for Americans. BUN 7(L) 10 - 26 mg/dl 12/17/2018 12:00 EDT [facility] Calcium 10.1 8.5 - 10.5 mg/dl 12/17/2018 12:00 EDT [facility] Calculated Calcium 9.8 8.5 - 10.5 mg/dl 12/17/2018 12:00 EDT [facility] Glucose, Serum 98 70 - 100 mg/dl 12/17/2018 12:00 EDT [facility] Fasting? No 12/17/2018 8:55 EDT [facility] Blood specimen (specimen) BLOOD SPECIMEN / Unknown 12/17/2018 9:02 EDT 12/17/2018 10:10 EDT Narrative Authorizing Provider Result Charly Flood MD CHEMISTRY & BLOOD GA S ORDERABLES Performing Organization Address [facility] Co de Phone Number [facility] [address] [place] [address] * CK (12/17/2018 9:02 EDT) CK 55 30 - 135 U/L 12/17/2018 11:49 EDT [facility] Blood specimen (specimen) BLOOD SPECIMEN / Unknown 12/17/2018 9:02 EDT 12/17/2018 10:10 EDT Narrative Authorizing Provider Result Charly Flood MD CHEMISTRY & BLOOD GA S ORDERABLES Performing Organization Address City/[facility]/ZIP Co de Phone Number [facility] [address] [place] [address] * CCP ANTIBODIES (12/17/2018 9:02 EDT) CCP Antibodies <2.5 <5.0 U/mL 12/17/2018 13:18 EDT [facility] BLOOD SPECIMEN / Unknown 12/17/2018 9:02 EDT 12/17/2018 10:10 EDT Narrative Authorizing Provider Result Charly Flood MD IMMUNOLOGY AND SEROL OGY ORDERABLES Performing Organization Address City/[facility]/ZIP Co de Phone Number [facility] [address] [place] [address] * (ABNORMAL) C REACTIVE PROTEIN (12/17/2018 9:02 EDT) C Reactive Protein 11.4(H) <10.0 mg/L 12/17/2018 12:00 EDT [facility] Blood specimen (specimen) BLOOD SPECIMEN / Unknown 12/17/2018 9:02 EDT 12/17/2018 10:10 EDT Narrative Authorizing Provider Result Charly Flood MD CHEMISTRY & BLOOD GA S ORDERABLES Performing Organization Address [facility]/ZIP Co de Phone Number [facility] [address] [place] [address] * SPEP, INCLUDES QUANTITATION OF MONOCLONAL SPIKE (12/17/2018 9:02 EDT) Total Protein 7.0 6.3 - 8.2 g/dl 12/17/2018 11:49 T [facility] Albumin % 63.3 55.8 - 66.1 % 12/18/2018 14:11 [facility] Alpha-1 % 3.6 2.9 - 4.9 % 12/18/2018 14:11 [facility] Alpha-2 % 10.1 7.1 - 11.8 % 12/18/2018 14:11 [facility] Beta % 11.4 8.4 - 13.1 % 12/18/2018 14:11 [facility] Gamma % 11.6 11.1 - 18.8 % 12/18/2018 14:11 [facility] Comments 12/18/2018 14:11 [facility] Comment: No apparent monoclonal protein on serum electrophoresis. See Pathology Scanned Report in EPIC. Blood specimen (specimen) BLOOD SPECIMEN / Unknown 12/17/2018 9:02 EDT 12/17/2018 10:10 EDT Carl Flood MD CHEMISTRY & BLOOD GA S ORDERABLES Performing Organization Address City/[facility]/ZIP Co de Phone Number [facility] [address] [place] [address] * SSA ANTIBODIES BY ALMA ROSA (12/17/2018 9:02 EDT) SSA Antibody 3.2 <20 Units 12/19/2018 13:07 EDT [facility] Comment: Negative: <20 Units [...] AND SEROL OGArtemio ORDERABLES Performing Organization Address [facility] de Phone Number [facility] [address] [place] [address] * MOLD WASHER ANTIBODIES BY ALMA ROSA (12/17/2018 9:02 EDT) [facility] Signature MOLD WASHER Antibody 1.7 <20 Units 12/19/2018 13:07 EDT [facility] Comment: Negative: <20 Units Weak Positive: 20 - 39 Units Moderate Positive: 40 - 80 Units Strong Positive: >80 Units Results were obtained with the INOVA QUANTA Lite MOLD WASHER ALMA ROSA. MOLD WASHER Values obtained with different manufacturers' assay methods may not be used interchangeably. The magnitude of the reported IgG levels cannot be correlated to an endpoint titer. A positive result in the QUANTA Lite MOLD WASHER ALMA ROSA indicates the presence of antibodies reactive with the MOLD WASHER/Sm complex but cannot distinguish between anti-Sm and anti-MOLD WASHER activity. Blood specimen (specimen) BLOOD SPECIMEN / Unknown 12/17/2018 9:02 EDT 12/17/2018 10:10 EDT Carl Flood MD IMMUNOLOGY AND SEROL OGArtemio ORDERABLES Performing Organization Address [facility] de Phone Number [facility] [address] [place] [address] * SSB ANTIBODIES BY ALMA ROSA (12/17/2018 9:02 EDT) SSB Antibody 3.0 <20 Units 12/19/2018 13:07 EDT [facility] Comment: Negative: <20 Units Weak Positive: 20 - 39 Units Moderate Positive: 40 - 80 Units Strong Positive: >80 Units Results were obtained with the [email or web address] QUANTA SS-B ALMA ROSA. SS-B values obtained with different manufacturers' assay methods may not be used interchangeably. The magnitude of the reported IgG levels cannot be correlated to an endpoint titer. Blood specimen (specimen) BLOOD SPECIMEN / Unknown 12/17/2018 9:02 EDT 12/17/2018 10:10 EDT Narrative Authorizing Provider Result Charly Flood MD IMMUNOLOGY AND SEROL OGY ORDERABLES Performing Organization Address [facility] de Phone Number [facility] [address] [place] [address] * TSH (12/17/2018 9:02 EDT) [facility] TSH 1.46 0.47 - 4.68 uIU/ml 12/17/2018 12:19 EDT [facility] Comment: The results of this assay can be falsely lowered due to the consumption of Biotin. Blood specimen (specimen) BLOOD SPECIMEN / Unknown 12/17/2018 9:02 EDT 12/17/2018 10:10 EDT Narrative Authorizing Provider Result Charly Flood MD CHEMISTRY & BLOOD GA S ORDERABLES Performing Organization Address [facility] Phone Number [facility] [address] [place] [address] * SED. RATE:WESTERGREN (12/17/2018 9:02 EDT) [facility] Sed. Rate Westergren 5 0 - 30 mm/hr 12/17/2018 10:21 EDT [facility] Blood specimen (specimen) BLOOD SPECIMEN / Unknown 12/17/2018 9:02 EDT 12/17/2018 10:10 EDT Narrative Authorizing Provider Result Charly Flood MD HEMATOLOGY & PF4 ORD ERABLES Performing Organization Address [facility] de Phone Number [facility] [address] [place] [address] * THYROID ANTIBODIES (12/17/2018 9:02 EDT) Thyroglobulin Ab 19 <61 U/mL 12/18/19 19 12:20 T [facility] Thyroperoxidase Ab 44 <61 U/mL 2018 13:08 T [facility] Blood specimen (specimen) BLOOD SPECIMEN / Unknown 12/17/2018 9:02 EDT 12/17/2018 10:10 EDT Carl Flood MD CHEMISTRY & BLOOD GA S ORDERABLES [facility] [address] [place] [address] * UA, CHEMICAL AND SEDIMENT ANALYSIS (DIPSTICK AND MICROSCOPIC) (12/17/2018 9:02 EDT) Color, UA Yellow 12/17/2018 9:42 T [facility] Clarity, UA Clear 12/17/2018 9:42 [facility] Glucose, UA Neg Neg 12/17/2018 9:42 [facility] Bilirubin, UA Neg Neg 12/17/2018 9:42 [facility] Ketones, UA Neg Neg 12/17/2018 9:42 [facility] Refractometer SG,Urine 1.020 1.001 - 1.035 12/17/2018 9:42 [facility] Blood, UA Neg Neg 12/17/2018 9:42 [facility] pH, UA 5.0 4.6 - 8.0 12/17/2018 9:42 [facility] Protein, UA Neg Neg 12/17/2018 9:42 [facility] Urobilinogen, UA Normal Normal E.U./dl 12/17/2018 9:42 [facility] Nitrite, UA Neg Neg 12/17/2018 9:42 [facility] Leuk Esterase Neg Neg 12/17/2018 9:42 [facility] UA Method Used 12/17/2018 8:51 EDT [facility] Comment: Testing performed using [employer] MENA360ion Series. Urine RBC Count Automated 0 to 2 0 to 2 /HPF 12/17/2018 9:42 EDT [facility] Urine WBC Count Automated 0 to 3 0 to 3 /HPF 12/17/2018 9:42 EDT [facility] Urine Squamous Epithelial Cell Count, Automated None seen None seen /LPF 12/17/2018 9:42 EDT [facility] Urine Hyaline Casts, Automated < or = 10 < or = 10 /LPF 12/17/2018 9:42 T [facility] Urine Bacteria Count, Automated None seen None seen 12/17/2018 9:42 EDT [facility] UA Comment Sediment results 12/17/2018 9:42 T [facility] Comment: are unreliable on urines unrefrig >2hrs or refrig >8hrs. Urine specimen (specimen) URINE / Unknown 12/17/2018 9:02 EDT 12/17/2018 9:30 EDT Carl Flood MD URINALYSIS ORDERABLE S [facility] [address] [place] [address] documented in this encounter Visit Diagnoses Diagnosis Positive ADRIANA (antinuclear antibody) Other and unspecified nonspecific immunological findings Malaise and fatigue Other malaise and fatigue Small fiber neuropathy Unspecified hereditary and idiopathic peripheral neuropathy Thoracolumbar back pain Backache, unspecified Paresthesia of both feet documented in this encounter Care Teams Bindery Leadperson Relationship Specialty Start Date End Date Jennifer Sr MD [facility] [place] [address] PCP - General 12/03/18 08/29/22 documented as of this encounter
--- OUTSIDE RECORDS SUMMARY | 2024-02-13 16:37 | XMS_ITS | Encounter Summary ---
Author Organization [facility] Address [address] [place] [address] Care Team Providers Care [employer] Employee Name Role Phone Obey Osborn APRN Primary Care Provider [phone] Reason for Visit * Reason Onset Date Comments Results 06/24/2018 Encounter Details Date Type Department Care Team ([facility] st Contact Info) Description 06/24/2018 Telephone [facility] [place] [address] Randall Corey MD [address] [place] [address] Results Social History Tobacco Use Types Packs/Day [...] Encounter - Randall Corey MD - 06/24/2018 0519 EDT Patient updated about result MRI head and MRI cervical spine Both with no acute findings documented in this encounter Plan of Treatment Upcoming Encounters Date Type Department Care Team (Late st Contact Info) Description 04/21/2024 15:00 EST Office Visit [facility] Neurology - S [address] [id number] Robby Abraham MD [address] [place] [address], [address] 2 [place] [phone] documented as of this encounter Visit Diagnoses Not on filedocumented in this encounter Care Teams R[employer] Service Employee Relationship Specialty Start Date End Date Obey Osborn APRN [address] [place] [address] [facility] [address] [place], [place] [id number] PCP - General 08/29/17 10/10/18 documented as of this encounter
--- OUTSIDE RECORDS SUMMARY | 2024-02-13 16:37 | XMS_ITS | Encounter Summary ---
Author Organization [facility] Address [address] [place] [address] Care Team Providers Care [employer] Professor Name Role Phone None, Provider Primary Care Provider Jennifer Rushing MD Primary Care Provider [phone] Reason for Visit * Reason Onset Date Comments Appointment Related 12/02/2018 Encounter Details Date Type Department Care Team ([facility] st Contact Info) Description 12/02/2018 Telephone [facility] [place] [address] Randall Corey MD [address] [place] [address] Appointment Related Social History Tobacco Use Types [...] Info) Description 04/21/2024 15:00 EST Office Visit [facility] Neurology - S [address] [address] Robby Abraham MD [address] [place] [address], [address] [place] [phone] documented as of this encounter Visit Diagnoses Not on filedocumented in this encounter Care Teams [employer] Professor Relationship Specialty Start Date End Date None, Provider PCP - General 10/11/18 12/02/18 Jennifer Sr MD [address] [address] PCP - General 12/03/18 08/29/22 documented as of this encounter
--- OUTSIDE RECORDS SUMMARY | 2024-02-13 16:37 | XMS_ITS | Encounter Summary ---
Author Organization [facility] Address [address] [place] [address] Care Team Providers Care Telephone Assembler Name Role Phone Obey Osborn APRN Primary Care Provider [phone] Reason for Visit * Reason Comments Foot Pain * Consult (Routine/Next Available) - Specialty Report Received Specialty Diagnoses / Procedures Referred By Mayda jalloh Referred To Contact Orthopedic Surgery Diagnoses Pain in both feet Virgil Núñez [place] [address] [place] [address] [facility] Ortho Foot And Ankle [address] [place] [address] Referral ID Status Reason Start Date Expiration Date Visits Requested Visits Authorized [id number] Specialty Report Received Specialty Services Required 08/29/2017 1 1 Encounter Details Date Type Department Care Team (Late st Contact Info) Description 11/19/2017 14:30 EDT Office Visit [facility] Foot & Ankle Program - [place] [address] [place] [address] Talha Oates DPM [address] [place] [address] Idiopathic peripheral neuropathy (Primary Dx) [...] 04/21/2024 15:00 EST Office Visit [facility] Neurology - [address] [place] [address] [place], [place] [address] Robby Abraham MD [address] [place] [address], Level 2 [place] [phone] documented as of this encounter Visit Diagnoses Diagnosis Idiopathic peripheral neuropathy- Primary Unspecified hereditary and idiopathic peripheral neuropathy documented in this encounter Care Teams Telephone Assembler Relationship Specialty Start Date End Date Obey Osborn APRN [address] [facility] [address] [place] [address] PCP - General 08/29/17 10/10/18 documented as of this encounter
--- OUTSIDE RECORDS SUMMARY | 2024-02-13 16:37 | XMS_ITS | Encounter Summary ---
Author Organization [facility] Address [address] [place] [address] Care Team Providers Care Fluid Pump Operator Name Role Phone Obey Osborn APRN Primary Care Provider [phone] Reason for Referral * Consult (Routine) - Closed Specialty Diagnoses / Procedures [facility] Referred To Contact Neurology Diagnoses Chronic nonintractable headache, unspecified headache type Robby Abraham MD [address] [place] [address] Neurology 2c, Resident Referral ID Status Reason Start Date Expiration Date V isits Requested Visits Authorized [id number] Closed Specialty Services Required 03/04/2018 1 1 Question Answer Reason for Request: general neuro resident clinic for headaches Reason for Visit * Reason Comments Follow-up Neuropathy. Pt would like a prescription for antacid for stomach Encounter Details Date Type Department Care Team (Late st Contact Info) Description 03/04/2018 11:00 EST Office Visit [facility] Neurology - [address] [address] Robby Abraham MD [address] [place] [address] Chronic nonintractable headache, unspecified headache type [...] hard time getting out of bed to [facility]. She used to work out regularly but [...] from her neuropathic pain. The to work [id number]. In addition to discussing this with her [...] to the referring physician Obey Abraham M.D. Residential Specialist of Neurology ABPN Board Certified, Neurology ABEM Board Certified, EMG documented in this encounter Plan of Treatment Upcoming Encounters Date Type Department Care Team (Late st Contact Info) Description 04/21/2024 15:00 EST Office Visit [facility] Neurology - S [address] [address] Robby Abraham MD [address] [place] [address] Level 2 [place] [address] Scheduled Referrals Name Type Priority Associated Diagnoses [...] 12/17/2018 added in this encounter Care Teams Fluid Pump Operator Relationship Specialty Start Date End Date Obey Osborn APRN [address] [place] [address] [address] [place] [address] PCP - General 08/29/17 10/10/18 documented as of this encounter
--- OUTSIDE RECORDS SUMMARY | 2024-02-13 16:37 | XMS_ITS | Encounter Summary ---
Author Organization [facility] Address [address] [place] [address] Care Team Providers Care Cold Water Machine Operator Name Role Phone Obey Osborn APRN Primary Care Provider Reason for Visit * Reason Onset Date Comments Appointment Related 03/04/2018 Encounter Details Date Type Department Care Team ([facility] st Contact Info) Description 03/04/2018 Telephone [facility] Neurology - [address] 3[address] Robby Abraham MD [address] [place] [address] Level 2 [place] [phone] Appointment Related Social History Tobacco Use Types [...] Telephone Encounter - Aydee Pisano - 03/04/2018 0928 EST Spoke to Aydee, she advised she [...] [facility] - [address] 3675[address] Robby Abraham MD [address] [place] [address], Level [address] [place] [phone] documented as of this encounter Visit Diagnoses Not on filedocumented in this encounter Care Teams Cold Water Machine Operator Relationship Specialty Start Date End Date Obey Osborn APRN [address] [place] [address] [address] [place], [place] [address] PCP - General 08/29/17 10/10/18 documented as of this encounter
--- OUTSIDE RECORDS SUMMARY | 2024-02-13 16:37 | XMS_ITS | Encounter Summary ---
Author Organization [facility] Address [address] [place] [address] Care Team Providers Care Transformer Mechanic Name Role Phone Obey Osborn APRN Primary Care Provider [phone] Encounter Details Date Type Department Care Team (Late Contact Info) Description 09/04/2017 Results Only Imaging [facility] [phone] Unknown, Provider, Social History Tobacco Use Types [...] [facility] Neurology - [address] [address] Robby Abraham MD [address] [place] [address], Level 2 [place] [address] Pending Results Name Type Priority Associated Diagnoses Date /Time OUTSIDE IMAGES - MR NEURO Imaging 09/04/2017 8:01 EDT OUTSIDE IMAGES - MR NEURO Imaging 09/04/2017 8:01 EDT documented as of this encounter Visit Diagnoses Not on filedocumented in this encounter Care Teams Transformer Mechanic Relationship Specialty Start Date End Date Obey Osborn APRN [address] [place] [address] [address] [place] [address] PCP - General 08/29/17 10/10/18 documented as of this encounter
--- OUTSIDE RECORDS SUMMARY | 2024-02-13 16:37 | XMS_ITS | Encounter Summary ---
Author Organization [facility] Address [address] [place] [address] Care Team Providers Care Case Technician Name Role Phone Porsha Louise ND Primary Care Provider Malina matamoros Reason for Visit * Reason Comments Back Pain Leg Pain b/l Foot Pain b/l up to knee Headache * Consult (Routine) - Specialty Report Received Specialty Diagnoses / Procedures Referred By [facility] t Referred To Contact Pain Medicine Diagnoses Chronic bilateral low back pain without sciatica Nick Gomez PA-C [address] [facility] [place] [address] [facility] [address] [facility] [place] [address] Referral ID Status Reason Start Date Expiration Date Visits Requested Visits Authorized [id number] Specialty Report Received Specialty Services Required 7 1 1 Encounter Details Date Type Department Care Team (Latest Contact Info) Description 07/12/2017 10:45 EDT Office Visit [facility] Interventional Pain [address] [facility] [place] [address] Cristóbal Smith MD [address] [facility] [address] [place] [address] Ann-Marie Escalera MD [address] [place], [place] [id number] Facet arthropathy (HCC-CMS) (Primary Dx); Pain in [...] was initially told that she had Guillain Emmett but this was later refuted), and Orthopedics. [...] on disability. Used to work in a [employer]. Would like to go back to work. Smokes 1/2 pack a day. Does not want to quit as she is afraid of weight gain. Says she has gained 50 lbs in the last few months. Lives with her 36 year old in a small apartment. Does not have a PCP, does have a Market Analysis Director but isan expensive option for her. How [...] Hyperreflexic patellar reflexes. Assessment: 1. Facet arthropathy ([facility]-CMS) 2. Pain in both feet Plan: Ms. [...] Info) Description 04/21/2024 15:00 EST Office Visit [facility] Neurology - [address] [address] Robby Abraham MD [address] [place] [address], Level 2 [place] [phone] documented as of this encounter Visit Diagnoses Diagnosis Facet arthropathy- Primary Spondylosis of unspecified site without mention of myelopathy Pain in both feet Pain in limb Myofascial pain Mylagia and myositis, unspecified Numbness of foot Disturbance of skin sensation Chronic intractable headache, unspecified headache type documented in this encounter Care Teams Case Technician Relationship Specialty Start Date [place] [address] PCP - General 02/06/17 08/28/17 documented as of this encounter
--- OUTSIDE RECORDS SUMMARY | 2024-02-13 16:37 | XMS_ITS | Encounter Summary ---
Author Organization [facility] Address [address] [place] [address] Care Team Providers Care Wide Area Network Systems Administrator Name Role Phone Jennifer Sr MD Primary Care Provider [phone] Reason for Visit * Reason Onset Date Comments Labs Only 12/04/2018 Encounter Details Date Type Department Care Team ([facility] st Contact Info) Description 12/04/2018 Telephone [facility] Neurology - S [address] [address] Robby Valle MD [address] [place] [address] Level 2 [place] [phone] Labs Only Social History Tobacco Use Types [...] Visit [facility] Neurology - [address] [address] Robby Valle MD [address] [place] [address], Level 2 [place] [phone] documented as of this encounter Visit Diagnoses Not on filedocumented in this encounter Care Teams Wide Area Network Systems Administrator Relationship Specialty Start Date End Date Jennifer Sr MD [address], [address] [id number] PCP - General 12/03/18 08/29/22 documented as of this encounter
--- OUTSIDE RECORDS SUMMARY | 2024-02-13 16:37 | XMS_ITS | Encounter Summary ---
Author Organization [facility] Address [address] [place] [address] Care Team Providers Care Ring Barker Operator Name Role Phone Obey Osborn APRN Primary Care Provider [phone] Reason for Visit * Reason Comments New Patient Visit u/s first * Consult (Routine/Next Available) - Specialty Report Received Specialty Diagnoses / Procedures Referred By Contac t Referred To Contact Vascular Surgery Diagnoses Pain in both feet Bilateral leg pain Virgil Núñez [place] [address] [place] [address] [facility] Vasc Surgery [address] [place] [address] Referral ID Status Reason Start Date Expiration Date Visits Requested Visits Authorized [id number] Specialty Report Received Specialty Services Required 08/29/2017 1 1 Encounter Details Date Type Department Care Team ([facility] Contact Info) Description 10/09/2017 15:00 EDT Office Visit Vascular Surgery and Endovascular Therapy - [address] [address] Macho Fernandez MD [address] [facility], Level 5 [place] [address] Pain in both lower extremities (Primary Dx) [...] Fernandez MD - 10/09/2017 0000 EDT [facility] VASCULAR SURGERY CONSULTATION - 10/09/2017 Obey Osborn NP [facility] [address] [place] [address], [address] [place] [address] Dear Obey: Thank you for consulting us [...] - Macho Fernandez MD cn Dictation ID: [id number] cc: Obey Osborn MANAGER SECONDARY, [address], [place] [address] documented in this encounter Plan of Treatment Upcoming Encounters Date Type Department Care Team (Late st Contact Info) Description 04/21/2024 15:00 EST Office Visit [facility] Neurology - S [place] [address] [place] [address] Robby Abraham MD [address] [place] [address], Level 2 [place] [address] documented as of this encounter Visit Diagnoses Diagnosis Pain in both lower extremities- Primary documented in this encounter Care Teams Ring Barker Operator Relationship Specialty Start Date End Date Obey Osborn APRN [address] [place] [address] PCP - General 08/29/17 10/10/18 documented as of this encounter
--- OUTSIDE RECORDS SUMMARY | 2024-02-13 16:37 | XMS_ITS | Encounter Summary ---
Author Organization [facility] Address [address] [place] [address] Care Team Providers Care Junior Qa Analyst Name Role Phone Jennifer Sr MD Primary Care Provider [phone] Encounter Details Date Type Department Care Team ([facility] st Contact Info) Description 12/05/2018 Documentation Visit [facility] Neurophysiology - [facility] (Haresh [facility]) [address] [place], [place] [phone] Robby Abraham MD [address] [place] [address] Level 2 [place] [phone] Social History Tobacco Use Types Packs/Day Years [...] 04/21/2024 15:00 EST Office Visit [facility] Neurology - S [address] 8[address] Robby Abraham MD [address] [place] [address], Level [address] [place] [phone] documented as of this encounter Visit Diagnoses Not on filedocumented in this encounter Care Teams Junior Qa Analyst Relationship Specialty Start Date End Date Jennifer Sr MD [address], [address] [address] PCP - General 12/03/18 08/29/22 documented as of this encounter
--- OUTSIDE RECORDS SUMMARY | 2024-02-13 16:38 | XMS_ITS | Encounter Summary ---
Author Organization [facility] Address [address] [place] [address] Care Team Providers Care Aircraft Parts Assembler Name Role Phone Porsha Louise ND Primary Care Provider Malina matamoros Reason for Referral * Consult (Routine) - Specialty Report Received Specialty Diagnoses / Procedures Referred By Mayda jalloh Referred To Contact Pain Medicine Diagnoses Chronic bilateral low back pain without sciatica Nick Gomez PA-C [address] [place] [address] [place] [address] [facility] [address] [place] [address] Referral ID Status Reason Start Date Expiration Date Visits Requested Visits Authorized [id number] Specialty Report Received Specialty Services Required 7 [...] Team ([facility] Contact Info) Description 03/20/2017 Telephone [facility] Sp[facility] Program - [place] [facility] [place] [address] Nick Gomez PA-C [address] [facility] [place] [address] Appointment Related Social History Tobacco [...] 15:00 EST Office Visit [facility] Neurology - S [address] [address] Robby Abraham MD [address] [place] [address], Level 2 [place] [address] Scheduled Referrals Name Type Priority Associated Diagnoses Order Schedule AMB CONS/FOLLOW UP PAIN INTERVENTIONAL Outpatient Referral Routine Chronic bilateral low back pain without sciatica Ordered: 03/20/2017 documented as of this encounter Visit Diagnoses Diagnosis Chronic bilateral low back pain without sciatica- Primary documented in this encounter Care Teams Aircraft Parts Assembler Relationship Specialty Start Date [place] [address] PCP - General 02/06/17 08/28/17 documented as of this encounter
--- OUTSIDE RECORDS SUMMARY | 2024-02-13 16:38 | XMS_ITS | Encounter Summary ---
Author Organization [facility] Address [address] [place] [address] Care Team Providers Care Front Desk Administrator Name Role Phone Suleiman Zambrano PA-C Primary Care Provider + Reason for Visit * Reason Onset Date Comments Appointment Related 09/14/201609/23 Encounter Details Date Type Department Care Team ([facility] Contact Info) Description 09/14/2016 Telephone [facility] Rheumatology & Immunology - [address] [phone] Carl Flood Chi, MD [address] [place] [address], Level 5 [place] [address] Appointment Related (09/23) Social History [...] Medicaid referral form to be sent to [facility], needs to also say she should be her by 1 pm. Fax is [phone]. They did received something from us but not what they needed.Call her to confirm Hemal Gallegos 09/14/2016 16:24 documented in this encounter Plan of Treatment Upcoming Encounters Date Type Department Care Team (Late st Contact Info) Description 04/21/2024 15:00 EST Office Visit [facility] Neurology - S [place] [address] [place], [place] [address] Robby Abraham MD [address] [place] [address], Level [address] [place] [address] documented as of this encounter Visit Diagnoses Not on filedocumented in this encounter Care Teams Front Desk Administrator Relationship Specialty Start Date End Date Suleiman Zambrano PA-C [address] [place] [address] PCP - General 04/05/12 10/22/16 documented as of this encounter
--- OUTSIDE RECORDS SUMMARY | 2024-02-13 16:38 | XMS_ITS | Encounter Summary ---
Author Organization [facility] Address [address] [place] [address] Care Team Providers Care Marine Electrician Apprentice Name Role Phone Ca Leggett MD Primary Care Provider Unavailable Encounter Details Date Type Department Care Team ([facility] Contact Info) Description 12/01/2010 Results Only [facility] Laboratory Services - [facility] [address] [place], [place] [address] Claude Marti MD [address] [place] [address],[address] [place] [address] Social History Tobacco Use Types [...] Visit [facility] Neurology - S [place] [address] [place] [address] Robby Abraham MD [address] [place] [address], Level 2 [place] [address] documented as of this encounter Procedures Procedure [...] ? MEJIA, AYDEE ? Accession #: ? [id number] ? : ? 1965 (Age: 45) ??F [...] as (A1) and (A2). ??(L. ? Nba)/[facility] ? End of Report ? [facility] 12/01/2010 12/02/2010 8:5 9 EDT Claude Marti MD PATHOLOGY ORDERABLES [facility] [address] [place] [address] documented in this encounter Visit Diagnoses Not on filedocumented in this encounter Care Teams Marine Electrician Apprentice Relationship Specialty Start Date End Date Ca Leggett MD PCP - General 09/07/08 12/04/10 documented as of this encounter
--- OUTSIDE RECORDS SUMMARY | 2024-02-13 16:38 | XMS_ITS | Encounter Summary ---
Author Organization [facility] Address [address] [place] [address] Care Team Providers Care Data Processing Consultant Name Role Phone Unavailable Primary Care Provider Unavailabl e Encounter Details Date Type Department Care Team (Latest Contact Info) Description 04/21/1999 10:57 EST - 04/21/1999 11:59 EST Hospital Encounter [facility] [address] [place] [address] Virgilio Israel MD Discharge Disposition: Auto Discharge [...] Visit [facility] Neurology - S [address] [address] Robby Abraham MD [address] [place] [address] Level 2 [place] [phone] documented as of this encounter Procedures Procedure [...] MD PATHOLOGY ORDERABLES [facility] [address] [place] [address] documented in this encounter Visit Diagnoses Not on filedocumented in this encounter
--- OUTSIDE RECORDS SUMMARY | 2024-02-13 16:38 | XMS_ITS | Encounter Summary ---
Author Organization [facility] Address [address] [place] [address] Care Team Providers Care Child Support Case Officer Name Role Phone Ca Leggett MD Primary Care Provider Unavailable Encounter Details Date Type Department Care Team (Late Contact Info) Description 11/06/2002 Results Only [facility] [address] [place], [place] [address] [phone] Aime Haider MD Social History Tobacco Use [...] Description 04/21/2024 15:00 EST Office Visit [facility] Neurology - [address] [place] [address] [place] [address] Robby Abraham MD [address] [place] [address], Level 2 [place] [address] documented as of this encounter Procedures Procedure [...] ? AYDEE MEJIA ? Accession #: ? [id number] : ? 1965 (Age: 37) ??F ?Collect [...] MD PATHOLOGY ORDERABLES [facility] [address] [place] [address] documented in this encounter Visit Diagnoses Not on filedocumented in this encounter Care Teams Child Support Case Officer Relationship Specialty Start Date End Date Ca Leggett MD PCP - General 09/07/08 12/04/10 documented as of this encounter
--- OUTSIDE RECORDS SUMMARY | 2024-02-13 16:38 | XMS_ITS | Encounter Summary ---
Author Organization [facility] Address [address] [place] [address] Care Team Providers Care Ordering Machine Operator Name Role Phone Unavailable Primary Care Provider Unavailabl e Encounter Details Date Type Department Care Team (Latest Contact Info) Description 03/08/1999 22:00 EST Hospital Encounter [facility] - Other [address] [place] [address] Virgilio Israel MD Unknown, Provider, Discharge Disposition: [...] 04/21/2024 15:00 EST Office Visit [facility] Neurology - S [address] [address] Robby Abraham MD [address] [place] [address] 2 [place] [phone] documented as of this encounter Procedures Procedure [...] & PF4 ORD ERABLES Performing Organization Address [facility] de Phone Number [facility] [address] [place] [address] * PROTIME (03/08/1999 15:00 EST) Pro Time [...] & PF4 ORD ERABLES Performing Organization Address [facility] de Phone Number [facility] [address] [place] [address] * LIVER FUNCTION TESTS (03/08/1999 15:00 EST) Albumin 3.9 3.0 - 5.5 g/dl [facility] Total Alkaline Phosphatase 64 38 - 126 U/L [facility] ALT 24 15 - 75 U/L [facility] AST 17 8 - 50 U/L [facility] Unconjugated Bilirubin 0.1 0.1 - 1.1 mg/dl [facility] Conjugated Bilirubin 0.0 0.0 - 0.3 mg/dl [facility] Bilirubin, Total 0.5 0.2 - 1.3 mg/dl [facility] 03/08/1999 15:0 0 EST 03/08/1999 17:59 EST Virgilio Israel MD CHEMISTRY & BLOOD GA S ORDERABLES Performing Organization Address [facility] Phone Number [facility] [address] [place] [address] * LIPASE (03/08/1999 15:00 EST) Lipase 115 0 - 210 U/L [facility] 03/08/1999 15:0 0 EST 03/08/1999 17:59 EST Virgilio Israel MD CHEMISTRY & BLOOD GA S ORDERABLES Performing Organization Address [facility] Phone Number [facility] [address] [place] [address] * GGT (03/08/1999 15:00 EST) GGT 41 12 - 43 U/L [facility] 03/08/1999 15:0 0 EST 03/08/1999 17:59 EST Virgilio Israel MD CHEMISTRY & BLOOD GA S ORDERABLES Performing Organization Address [facility] de Phone Number [facility] [address] [place] [address] * (ABNORMAL) HEMAGRAM (03/08/1999 15:00 EST) WBC 8.42 4.0 - 12.4 K/cmm [facility] RBC 4.28 3.86 - 5.04 M/cmm [facility] Hemoglobin 13.9 11.6 - 15.2 gm/dl [facility] HCT 40.4 34.9 - 44.4 % [facility] MCV 94 81 - 98 fl [facility] MCH 32.6 26.7 - 33.3 pg [facility] MCHC 34.5 32.1 - 35.9 gm/dl [facility] PLT 333(H) 141 - 320 K/cmm [facility] RDW-CV 11.8 11.7 - 14.6 % [facility] 03/08/1999 15:0 0 EST 03/08/1999 17:59 EST Virgilio Israel MD HEMATOLOGY & PF4 ORD ERABLES Performing Organization Address City/[facility] de Phone Number [facility] [address] [place] [address] * AMYLASE (03/08/1999 15:00 EST) Amylase 52 30 - 110 U/L [facility] 03/08/1999 15:0 0 EST 03/08/1999 17:59 EST Virgilio Israel MD CHEMISTRY & BLOOD GA S ORDERABLES Performing Organization Address City/[facility] Co de Phone Number [facility] [address] [place] [address] documented in this encounter Visit Diagnoses Not on filedocumented in this encounter
--- OUTSIDE RECORDS SUMMARY | 2024-02-13 16:38 | XMS_ITS | Encounter Summary ---
Author Organization [facility] Address [address] [place] [address] Care Team Providers Care Human Services Case Manager Name Role Phone Porsha Louise ND Primary Care Provider Malina matamoros Reason for Referral * Radiology Services (Routine) - Closed Specialty Diagnoses / Procedures Referred By Mayda jalloh Referred To Contact Diagnoses Thoracic spine pain Procedures MR THORACIC SPINE WO CONTRAST Carl Flood Chi, MD [address] [place] [phone] Referral ID Status Reason Start Date Expiration Date Visits Re quested Visits Authorized [id number] Closed 02/14/2017 1 1 Reason for Visit * Reason Onset Date Comments Back Problem 02/13/2017 Appointment Related 02/13/2017 Returning Call 02/13/2017 to nurse Encounter Details Date Type Department Care Team (Late st Contact Info) Description 02/13/2017 Telephone [facility] Cardiology - [place] [address] [place] [address] Carl Flood Chi, MD [address] [place] [phone] Back Problem; Appointment Related; Returning Call [...] EST Spoke with patient. She said the operations staff specialist security was only looking at her lower back, [...] so she is working with the [facility] [place] but the provider isn't listening to heror her concerns. She would like to discuss Odalys Martinez 02/13/2017 11:25 documented in this encounter Plan of Treatment Upcoming Encounters Date Type Department Care Team (Late st Contact Info) Description 04/21/2024 15:00 EST Office Visit [facility] Neurology - S [place] [address] [place] [address] Robby Abraham MD [address] [place] [address] [place], Level 2 [place] [phone] documented as of this encounter Procedures Procedure [...] spine documented in this encounter Care Teams Human Services Case Manager Relationship Specialty Start Date End Date Porsha Louise [place] [address] PCP - General 02/06/17 08/28/17 documented as of this encounter
--- OUTSIDE RECORDS SUMMARY | 2024-02-13 16:38 | XMS_ITS | Encounter Summary ---
Author Organization [facility] Address [address] [place] [address] Care Team Providers Care Internal Combustion Engine Inspector Name Role Phone Ca Leggett MD Primary Care Provider Unavailable Encounter Details Date Type Department Care Team (Late Contact Info) Description 07/04/2004 Results Only [facility] - [facility] conversion [address] [place] [address] Nuvia Velázquez MD [address] [place] [phone] Social History Tobacco Use Types Packs/Day Years Used Date Smoking Tobacco: Never Assessed Sex and Gender Information Value Date Recorded Sex Assigned at Not on file Gender Identity Female 05/16/2019 9:18 EST Sexual Orientation Not on file documented as of this encounter Plan of Treatment Upcoming Encounters Date Type Department Care Team ([facility] Contact Info) Description 04/21/2024 15:00 EST Office Visit [facility] Neurology - S [place] 1 [place], [place] [address] Robby Abraham MD [address] [place] [address] 2 [place] [phone] documented as of this encounter Procedures Procedure [...] ? AYDEE MEJIA ? Accession #: ? [id number] : ? 1965 (Age: 39) ??F ?Collect Date: ? 07/04/2004 Location: ? [facility] ? Receive Date: ? 07/06/2004 Provider: ?NUVIA VELÁZQUEZ MD Copy to: ? Srinath First ?[facility] ?[address] ?[place], [place] [address] ? Specimen/Source: ?ThinPrep Pap Test, Cervix Last [...] MD PATHOLOGY ORDERAB LES Performing Organization Address City/State/[facility] Co de Phone Number [facility] [address] [place] [address] documented in this encounter Visit Diagnoses Not on filedocumented in this encounter Care Teams Internal Combustion Engine Inspector Relationship Specialty Start Date End Date Ca Leggett MD PCP - General 09/07/08 12/04/10 documented as of this encounter
--- OUTSIDE RECORDS SUMMARY | 2024-02-13 16:38 | XMS_ITS | Encounter Summary ---
Author Organization [facility] Address [address] [place] [address] Care Team Providers Care Coal Trimmer Machine Operator Name Role Phone Porsha Louise ND Primary Care Provider Malina matamoros Reason for Referral * Radiology Services (Routine) - Closed Specialty Diagnoses / Procedures Referred By Contac t Referred To Contact Diagnoses Chronic bilateral low back pain, with sciatica presence unspecified Pain in both lower extremities Procedures MR LUMBAR SPINE WO CONTRAST Nick Gomez PA-C [address] [place] [address] Referral ID Status Reason Start Date Expiration Date Visits Re quested Visits Authorized [id number] Closed 02/06/2017 1 1 * PT/OT/ST (Routine) - Closed Specialty Diagnoses / Procedures Referred By Contac t Referred To Contact Diagnoses Chronic bilateral low back pain, with sciatica presence unspecified Nick Gomez PA-C [address] [place] [address] Referral ID Status Reason Start Date Expiration Date V isits Requested Visits Authorized [id number] Closed Specialty Services Required 02/06/2017 1 1 Question Answer Reason for Request: aquatic therapy with endurance training and core stabilization Reason for Visit * Reason Comments Back Pain mid back pain * Consult, Test and Treat (Routine) - Closed Specialty Diagnoses / Procedures Referred By Contac t Referred To Contact Orthopedic Surgery Diagnoses Back pain Porsha Louise ND [address] [place] [address] [facility] Ortho Spine [address] [place] [address] Referral ID Status Reason Start Date Expiration Date Visits Re quested Visits Authorized [id number] Closed 1 1 Encounter Details Date Type Department Care Team (Late st Contact Info) Description 02/06/2017 14:45 EDT Office Visit [facility] Spine Program - [facility] [address] [place] [address] Nick Gomez PA-C [address] [facility] [place] [address] Chronic bilateral low back pain, [...] exacerbated by sitting, standing, walking, physical therapy, professional healthcare representative, sneezing, bending forward and driving, though she [...] at the patella, 0 at the achilles [id number] is NR there is no clonus SLR right: neg Left: neg Hips have FROM without pain Neurologic Exam Mental Status Oriented to person, place, and time. Cranial Nerves CN III, IV, Extraocular motions are normal. The prior workup of the patient includes: Lumbar films obtained in October of this year reveal 5 [id number] lumbar vertebrae, no scoliosis. Lateral view reveals [...] [facility] Neurology - [address] [address] Robby Abraham MD [address] [place] [address], Level 2 [place] [phone] Scheduled Referrals Name Type Priority Associated Diagnoses [...] extremities documented in this encounter Care Teams Coal Trimmer Machine Operator Relationship Specialty Start Date End Date Porsha Louise ND [address] [place] [address] PCP - General 02/06/17 08/28/17 documented as of this encounter
--- OUTSIDE RECORDS SUMMARY | 2024-02-13 16:38 | XMS_ITS | Encounter Summary ---
Author Organization [facility] Address [address] [place] [address] Care Team Providers Care Database Software Technician Name Role Phone Ca Leggett MD Primary Care Provider Unavailable Encounter Details Date Type Department Care Team (Late Contact Info) Description 03/07/2001 Results Only [facility] [address] [place] [address] Dewayne Cunningham MD [address] [place] [phone] Social History Tobacco Use Types Packs/Day Years Used Date Smoking Tobacco: Never Assessed Sex and Gender Information Value Date Recorded Sex Assigned at Not on file Gender Identity Female 05/16/2019 9:18 EST Sexual Orientation Not on file documented as of this encounter Plan of Treatment Upcoming Encounters Date Type Department Care Team (Late Contact Info) Description 04/21/2024 15:00 EST Office Visit [facility] Neurology - S [place] [address] [place], [place] [address] Robby Abraham MD [address] [place] [address] Level 2 [place] [phone] documented as of this encounter Procedures Procedure Name Priority Date/Time Associated Diagnosis Comments CYTOPATHOLOGY Routine 03/07/2001 0:00 EST documented in this encounter Results * CYTOPATHOLOGY (03/07/2001 0:00 EST) Pathology Report: CYTOPATHOLOGY REPORT Reports generated via electronic interface contain original data; however they are lacking the format of the original report. Caution should be taken when reading/interpreti ng unformatted reports. Name: ? ADYEE MEJIA ? Accession #: ? [id number] : ? 1965 (Age: 36) ??F ?Collect [...] PATHOLOGY ORDERABLE S [facility] [address] [place] [address] documented in this encounter Visit Diagnoses Not on filedocumented in this encounter Care Teams Database Software Technician Relationship Specialty Start Date End Date Ca Leggett MD PCP - General 09/07/08 12/04/10 documented as of this encounter
--- OUTSIDE RECORDS SUMMARY | 2024-02-13 16:38 | XMS_ITS | Encounter Summary ---
Author Organization [facility] Address [address] [place] [address] Care Team Providers Care Orthodontist Assistant Name Role Phone Ca Leggett MD Primary Care Provider Unavailable Encounter Details Date Type Department Care Team (Late Contact Info) Description 08/03/2006 Results Only [facility] [address] [place] [address] Codie Wayne NP [address] [place] [address] [place], [place] [phone] Social History Tobacco Use Types Packs/Day Years Used Date Smoking Tobacco: Never Assessed Sex and Gender Information Value Date Recorded Sex Assigned at Not on file Gender Identity Female 05/16/2019 9:18 EST Sexual Orientation Not on file documented as of this encounter Plan of Treatment Upcoming Encounters Date Type Department Care Team (Late Contact Info) Description 04/21/2024 15:00 EST Office Visit [facility] Neurology - S [address] [address] Robby Abraham MD [address] [place] [address] 2 [place] [phone] documented as of this encounter Procedures Procedure [...] ? AYDEE MEJIA ? Accession #: ? [id number] : ? 1965 (Age: 41) ??F ?Collect Date: ? 08/03/2006 Location: ? [facility] ? Receive Date: ? 08/06/2006 Provider: ?CODIE WAYNE NP Copy to: ? Srinath First ?[facility] ?[address] ?[place], [place] [address] ? Specimen/Source: ?ThinPrep Pap Test, Cervix/Endocervix, processed on Big Screen Tools ThinPrep Imaging System, with manual evaluation Last [...] NP PATHOLOGY ORDERABLE S Performing Organization Address City/State/[facility] Co de Phone Number [facility] [address] [place] [address] documented in this encounter Visit Diagnoses Not on filedocumented in this encounter Care Teams Orthodontist Assistant Relationship Specialty Start Date End Date Ca Leggett MD PCP - General 09/07/08 12/04/10 documented as of this encounter
--- OUTSIDE RECORDS SUMMARY | 2024-02-13 16:38 | XMS_ITS | Encounter Summary ---
Author Organization [facility] Address [address] [place] [address] Care Team Providers Care Mat Repairer Name Role Phone Suleiman Zambrano PA-C Primary Care Provider + Encounter Details Date Type Department Care Team (Late Contact Info) Description 04/16/2012 Abstract [facility] Spine Program - [address] [address] Nick Gomez PA-C [address] [place] [address] [place] [address] Social History Tobacco Use Types [...] - [facility] Neurology - S [address] [address] Robby Abraham MD [address] [place] [address], [address] [place] [address] documented as of this encounter Visit Diagnoses Not on filedocumented in this encounter Care Teams Mat Repairer Relationship Specialty Start Date End Date Suleiman Zambrano PA-C [address] [place] [address] PCP - General 04/05/12 10/22/16 documented as of this encounter
--- OUTSIDE RECORDS SUMMARY | 2024-02-13 16:38 | XMS_ITS | Encounter Summary ---
Author Organization [facility] Address [address] [place] [address] Care Team Providers Care Alligator Hunter Name Role Phone Odalys Hanley MD Primary Care Provider [phone] Porsha Louise ND Primary Care Provider Malina matamoros Reason for Visit * Reason Onset Date Comments Appointment Related 12/06/2016 Office is as truman for copy of note from 10/23/16 visit to be faxed. Encounter Details Date Type Department Care Team ([facility] Contact Info) Description 12/06/2016 Telephone [facility] Rheumatology & Immunology - [address] [address] Carl Flood Chi, MD [address] [place] [address], [address] 5 [place] [address] Appointment Related (Office is asking [...] fax notes from 10/23/16 visit to [facility]- PCP office. Cassandra Grady 12/06/2016 11:29 documented in this encounter Plan of Treatment Upcoming Encounters Date Type Department Care Team (Late st Contact Info) Description 04/21/2024 15:00 EST Office Visit [facility] Neurology - S [place] [address] [place] [phone] Robby Abraham MD [address] [place] [address], Level 2 [place] [phone] documented as of this encounter Visit Diagnoses Not on filedocumented in this encounter Care Teams Alligator Hunter Relationship Specialty Start Date End Date Odalys [place] MD PCP - General 12/06/16 02/05/17 Porsha Louise ND [facility] [place] [address] PCP - General 02/06/17 08/28/17 documented as of this encounter
--- OUTSIDE RECORDS SUMMARY | 2024-02-13 16:38 | XMS_ITS | Encounter Summary ---
Author Organization [facility] Address [address] [place] [address] Care Team Providers Care Substation Electrician Name Role Phone Porsha Louise ND Primary Care Provider Malina matamoros Reason for Visit * Reason Onset Date Comments Discuss Test Results 03/23/2017 xray done a month ago Encounter Details Date Type Department Care Team ([facility] Contact Info) Description 03/23/2017 Telephone [facility] Rheumatology & Immunology - [address] [address] Carl Flood Chi, MD [address] [place] [address], [address] [place] [address] Discuss Test Results (xray done [...] her physical Therapist at [facility] in [place], [place]. * Telephone Encounter - Tiffany Brewster [...] 04/21/2024 15:00 EST Office Visit [facility] Neurology - S [address] [address] Robby Abraham MD [address] [place] [address], Level 2 [place] [phone] documented as of this encounter Visit Diagnoses Not on filedocumented in this encounter Care Teams Substation Electrician Relationship Specialty Start Date [place] [address] PCP - General 02/06/17 08/28/17 documented as of this encounter
--- OUTSIDE RECORDS SUMMARY | 2024-02-13 16:38 | XMS_ITS | Encounter Summary ---
Author Organization [facility] Address [address] [place] [address] Care Team Providers Care Public Health Outreach Worker Name Role Phone Suleiman Zambrano PA-C Primary Care Provider + Reason for Visit * Reason Onset Date Comments Discuss Possible Transfer 08/07/2016 RCT Update 08/07/2016 RCT paperwork se nt wrong office Encounter Details Date Type Department Care Team ([facility] Contact Info) Description 08/07/2016 Telephone [facility] Rheumatology & Immunology - [address] [phone] Carl Flood Chi, MD 111 [facility], [address] [place] [address] Discuss Possible Transfer (RCT [phone]); Update (RCT paperwork sent wrong office) Social [...] RN - 08/09/2016 0957 EDT Re-faxed to [place]. * Telephone Encounter - Jasmeet Langley - 08/09/2016 0840 EDT Darya called from [facility] regarding the form for transportation for Aydee and it was sent to the wrong office. Patient gave me the wrong fax. It needs to go to [facility]. Darya is faxingform back. I now have the correct fax for [place] [phone] * Telephone Encounter - Jasmeet Langley - 08/07/2016 1318 EDT Patient is stating please call RTC @ [phone] as this is needed for her to [...] Visit [facility] Neurology - S [place] [address] [place], [place] [address] Robby Abraham MD [address] [place] [address], [address] [place] [phone] documented as of this encounter Visit Diagnoses Not on filedocumented in this encounter Care Teams Public Health Outreach Worker Relationship Specialty Start Date End Date Suleiman Zambrano PA-C [address] [place] [address] PCP - General 04/05/12 10/22/16 documented as of this encounter
--- OUTSIDE RECORDS SUMMARY | 2024-02-13 16:38 | XMS_ITS | Encounter Summary ---
Author Organization [facility] Address [address] [place] [address] Care Team Providers Care Water Meter Reader Name Role Phone Suleiman Zambrano PA-C Primary Care Provider + Encounter Details Date Type Department Care Team (Late Contact Info) Description 04/30/2012 6:57 EST - 04/30/2012 23:59 EST Hospital Encounter [address] [place] [address] Nick Dimas MD [address] [place] [phone] Discharge Disposition: Home or Self Care Social [...] Code Departure Means Destination Home or Self Senior Living documented in this encounter Plan of Treatment Upcoming Encounters Date Type Department Care Team ([facility] Contact Info) Description 04/21/2024 15:00 EST Office Visit [facility] Neurology - S [place] [address] [place] [address] Robby Abraham MD 1 [facility], Level [address] [place] [address] documented as of this encounter Visit Diagnoses Not on filedocumented in this encounter Care Teams Water Meter Reader Relationship Specialty Start Date End Date Suleiman Zambrano PA-C [address] [place] [phone] PCP - General 04/05/12 10/22/16 documented as of this encounter
--- OUTSIDE RECORDS SUMMARY | 2024-02-13 16:38 | XMS_ITS | Encounter Summary ---
Author Organization [facility] Address [address] [place] [address] Care Team Providers Care Regional Service Manager Name Role Phone None, Provider Primary Care Provider Unavailabl e Encounter Details Date Type Department Care Team (Late st Contact Info) Description 10/23/2016 Phlebotomy Only [facility] [address] [place] [address] Automatic Drilling Machine Operator, Outpatient Positive ADRIANA (antinuclear antibody); Paresthesia of [...] Visit [facility] [place] [address] [place] [phone] Robby Abraham MD [address] [place] [address], [address] [place] [id number] documented as of this encounter [...] 10/23/2016 15:34 EDT Positive ADRIANA (antinuclear antibody) BULB WEEDER ANTIBODY, IGG Routine 10/23/2016 15: 34 EDT [...] 16 <61 U/mL 10/25/19 17 9:24 EDT [facility] Thyroperoxidase Ab <28 <61 U/mL 2016 10:18 EDT [facility] Blood specimen (specimen) BLOOD SPECIMEN / Unknown 10/23/2016 15:34 EDT 10/23/2016 15:47 EDT Carl Flood MD CHEMISTRY & BLOOD GA S ORDERABLES Performing Organization Address [facility] de Phone Number [facility] [address] [place] [address] * FOLATE (10/23/2016 15:34 EDT) Folate 14.9 ng/ml 10/24/2016 13:01 EDT [facility] Comment: Deficient: ??Less than 3.4 ng/mL Indeterminate: ??3.4-5.4 ng/mL Normal: ??Greater than 5.4 ng/mL Blood specimen (specimen) BLOOD SPECIMEN / Unknown 10/23/2016 15:34 EDT 10/23/2016 15:47 EDT Carl Flood MD CHEMISTRY & BLOOD GA S ORDERABLES Performing Organization Address [facility] de Phone Number [facility] [address] [place] [address] * BULB WEEDER ANTIBODIES BY ALMA ROSA (10/23/2016 15:34 EDT) BULB WEEDER Antibody 1.9 <20 Units 10/24/2016 12:54 EDT [facility] Comment: Negative: <20 Units Weak Positive: 20 - 39 Units Moderate Positive: 40 - 80 Units Strong Positive: >80 Units Results were obtained with the [employer] QUANTA Lite BULB WEEDER ALMA ROSA. BULB WEEDER Values obtained with different manufacturers' assay methods may not be used interchangeably. The magnitude of the reported IgG levels cannot be correlated to an endpoint titer. A positive result in the QUANTA Lite BULB WEEDER ALMA ROSA indicates the presence of antibodies reactive with the BULB WEEDER/Sm complex but cannot distinguish between anti-Sm and anti-BULB WEEDER activity. Blood specimen (specimen) BLOOD SPECIMEN / Unknown 10/23/2016 15:34 EDT 10/23/2016 15:47 EDT Carl Flood MD IMMUNOLOGY AND SEROL OGY ORDERABLES Performing Organization Address [facility] Co de Phone Number [facility] [address] [place] [address] * SSA ANTIBODIES BY ALMA ROSA (10/23/2016 15:34 EDT) SSA Antibody 1.5 <20 Units 10/24/2016 12:53 EDT [facility] Comment: Negative: <20 Units [...] AND SEROL OGY ORDERABLES Performing Organization Address [facility] Co de Phone Number [facility] [address] [place] [address] * SSB ANTIBODIES BY ALMA ROSA (10/23/2016 15:34 EDT) SSB Antibody 2.6 <20 Units 10/24/2016 12:53 EDT [facility] Comment: Negative: <20 Units [...] SEROL OGY ORDERABLES Performing Organization Address [facility] Co de Phone Number [facility] [address] [place] [address] * (ABNORMAL) COMPREHENSIVE METABOLIC PANEL (CMP) (10/23/2016 15:34 EDT) Potassium 4.2 3.5 - 5.0 mEq/L 10/23/2016 16:30 [facility] Sodium 141 136 - 145 mEq/L 10/23/2016 16:30 [facility] Chloride 106 96 - 110 mEq/L 10/23/2016 16:30 [facility] CO2 20(L) 22 - 32 mEq/L 10/23/2016 16:30 [facility] Total Alkaline Phosphatase 70 38 - 126 U/L 10/23/2016 16:30 [facility] Bilirubin, Total <0.5 <1.4 mg/dl 10/24/19 17 16:30 [facility] AST 19 15 - 46 U/L 10/23/2016 16:30 [facility] ALT 21 <53 U/L 10/23/2016 16:30 [facility] Albumin 4.4 3.4 - 4.9 g/dl 10/23/2016 16:30 [facility] Total Protein 7.0 6.3 - 8.2 g/dl 10/23/2016 16:30 [facility] Creatinine 0.63 0.52 - 1.04 mg/dl 10/23/2016 16:30 [facility] GFR, Calculated 103 >60 ml/min/1.7 3m2 10/23/2016 16:30 [facility] Comment: eGFR calculated using CKD-EPI equation for non Americans. Multiply eGFR by 1.16 for Americans. BUN 10 10 - 26 mg/dl 10/23/2016 16:30 [facility] Calcium 9.7 8.5 - 10.5 mg/dl 10/23/2016 16:30 [facility] Calculated Calcium 9.4 8.5 - 10.5 mg/dl 10/23/2016 16:30 [facility] Glucose, Serum 97 70 - 100 mg/dl 10/23/2016 16:30 [facility] Fasting? No 10/23/2016 15:33 [facility] Blood specimen (specimen) BLOOD SPECIMEN / Unknown 10/23/2016 15:34 EDT 10/23/2016 15:47 EDT Carl Flood MD CHEMISTRY & BLOOD GA S ORDERABLES [facility] [address] [place] [address] * (ABNORMAL) HEMAGRAM AND DIFFERENTIAL (10/23/2016 15:34 EDT) WBC 8.86 4.0 - 12.4 K/cmm 10/23/2016 16:01 [facility] RBC 4.50 3.86 - 5.04 M/cmm 10/23/2016 16:01 [facility] Hemoglobin 14.5 11.6 - 15.2 gm/dl 10/23/2016 16:01 [facility] HCT 41.2 34.9 - 44.4 % 10/23/2016 16:01 [facility] MCV 92 81 - 98 fl 10/23/2016 16:01 [facility] MCH 32.2 26.7 - 33.3 pg 10/23/2016 16:01 [facility] MCHC 35.2 32.1 - 35.9 gm/dl 10/23/2016 16:01 [facility] RDW-CV 11.9 <14.7 % 10/23/2016 16:01 [facility] RDW-SD 40.0 <50.4 fl 10/23/2016 16:01 [facility] PLT 320 141 - 377 K/cmm 10/23/2016 16:01 [facility] MPV 8.9(L) 9.5 - 12.7 fl 10/23/2016 16:01 [facility] % Neutrophils 49.8 % 10/23/2016 16:01 [facility] % Lymphocytes 39.7 % 10/23/2016 16:01 [facility] % Monocytes 6.2 % 10/23/2016 16:01 [facility] % Eosinophils 3.3 % 10/23/2016 16:01 [facility] % Basophils 0.7 % 10/23/2016 16:01 [facility] % Immature Grans 0.3 % 10/23/2016 16:01 [facility] ABS Neutrophils 4.41 2.20 - 8.85 K/cmm 10/23/2016 16:01 [facility] ABS Lymphs 3.52(H) 1.09 - 3.30 K/cm 10/23/2016 16:01 [facility] ABS Monocytes 0.55 0.1 - 0.8 K/cm 10/23/2016 16:01 [facility] ABS Eosinophils 0.29 0.03 - 0.61 K/cmm 10/23/2016 16:01 [facility] ABS Basophils 0.06 0.01 - 0.11 K/cmm 10/23/2016 16:01 [facility] ABS Immature Grans 0.03 0 - 0.06 K/cmm 10/23/2016 16:01 [facility] Type of Diff: Automated 10/23/2016 16:01 [facility] Blood specimen (specimen) BLOOD SPECIMEN / Unknown 10/23/2016 15:34 EDT 10/23/2016 15:47 EDT Carl Flood MD PACKAGES & DNA PROBE ORDERABLES [facility] [address] [place] [address] * LYME AB (10/23/2016 15:34 EDT) Lyme AB Negative 10/24/2016 13:24 T [facility] Comment:Reference Range: Neg ative Blood specimen (specimen) BLOOD SPECIMEN / Unknown 10/23/2016 15:34 EDT 10/23/2016 15:47 EDT Carl Singhu MD IMMUNOLOGY AND SEROL OGY ORDERABLES Performing Organization Address [facility] Co de Phone Number [facility] [address] [place] [address] * (ABNORMAL) C4 COMPLEMENT (10/23/2016 15:34 EDT) C4 Complement 40(H) 16 - 38 mg/dl 10/24/2016 10:34 EDT [facility] Blood specimen (specimen) BLOOD SPECIMEN / Unknown 10/23/2016 15:34 EDT 10/23/2016 15:47 EDT Narrative Authorizing Provider Result Charly Flood MD CHEMISTRY & BLOOD GA S ORDERABLES Performing Organization Address [facility] de Phone Number [facility] [address] [place] [address] * (ABNORMAL) ARTHRITIS 1 (10/23/2016 15:34 EDT) Pathologist [facility] Rheumatoid Factor <20 <20 IU/ml 017 10:34 EDT [facility] ADRIANA Interpretation Positive(A) Negative 10/24/2016 15:04 EDT [facility] Comment: Results were obtained with the INOVA NOVA Lite HEp-2 ADRIANA kit by indirect immunofluorescence. ADRIANA Titer Pattern 1:320 Speckled 10/24/2016 12:46 EDT [facility] Blood specimen (specimen) BLOOD SPECIMEN / Unknown 10/23/2016 15:34 EDT 10/23/2016 15:47 EDT Narrative Authorizing Provider Result Charly Flood MD IMMUNOLOGY AND SEROL OGY ORDERABLES Performing Organization Address [facility] Co de Phone Number [facility] [address] [place] [address] * SM (AGEE) ANTIBODY (10/23/2016 15:34 EDT) Sm (Agee) Antibody 0.9 <20 Units 10/24/2016 12:53 EDT [facility] Comment: Negative: <20 Units [...] SEROL OGArtemio ORDERABLES Performing Organization Address [facility] Co de Phone Number [facility] [address] [place] [address] * ANTI DNA (DOUBLE STRAND) (10/23/2016 15:34 EDT) Anti DNA (DS) <12.3 <30 IU/mL 10/24/2016 13:58 EDT [facility] Comment:Results were obtaine d with the [employer] QUANTA Lite dsDNA SC ALMA ROSA assay. Blood specimen (specimen) BLOOD SPECIMEN / Unknown 10/23/2016 15:34 EDT 10/23/2016 15:47 EDT Carl Flood MD IMMUNOLOGY AND SEROL OGArtemio ORDERABLES Performing Organization Address [facility] Co de Phone Number [facility] [address] [place] [address] documented in this encounter Visit Diagnoses Diagnosis Positive ADRIANA (antinuclear antibody) Other and unspecified nonspecific immunological findings Paresthesia of both feet documented in this encounter Care Teams Regional Service Manager Relationship Specialty Start Date End Date None, Provider PCP - General 10/23/16 12/05/16 documented as of this encounter
--- OUTSIDE RECORDS SUMMARY | 2024-02-13 16:38 | XMS_ITS | Encounter Summary ---
Author Organization [facility] Address [address] [place] [id number] Care Team Providers Care Dinkey Skinner Name Role Phone None, Provider Primary Care Provider Unavailabl e Reason for Referral * Radiology Services (Routine) - Closed Specialty Diagnoses / Procedures Referred By Contac t Referred To Contact Diagnoses Pain in thoracic spine Procedures THORACIC SPINE 2-3 VIEWS Carl Flood Chi, MD [address] [place] [phone] Referral ID Status Reason Start Date Expiration Date Visits Re quested Visits Authorized [id number] Closed 10/23/2016 1 1 * Radiology Services (Routine) - Closed Specialty Diagnoses / Procedures Referred By Contac t Referred To Contact Diagnoses Lumbar spine pain Procedures L SPINE 2-3 VIEWS Carl Flood Chi, MD [address] [place] [phone] Referral ID Status Reason Start Date Expiration Date Visits Re quested Visits Authorized [id number] Closed 10/23/2016 1 1 Reason for Visit * Reason Comments New Patient Visit Patient is being see n at the request of Ida Erickson at [facility] for evaluation of arthritis, lyme disease, +ADRIANA. Encounter Details Date Type Department Care Team ([facility] st Contact Info) Description 10/23/2016 13:25 EDT Office Visit [facility] Rheumatology & Immunology - [address] [address] Carl Flood Chi, MD [address] [place] [address], Level 5 [place] [address] Positive ADRIANA (antinuclear antibody) (Primary [...] at the request of Ida Erickson at [facility] for evaluation of arthritis, lyme disease, [...] issues in 2011 when she was in [place]- this resolved over several months. Had tick bite in 2009. Saw doctors in [place] and [place] with negative w/u . Ultimately dx with liver damage and pneumonia in [place]. Her was in [place]. Took antibiotics for pneumonia and liver issue resolved. Has had chronic foot numbness since 2011. Current therapy is not helping. Has had red discolorationon the face since July. Has had nerve conduction studies to the lower extremities in [place], [place] and [facility] - all negative. Skin bx was negative. Saw [facility] in [place], [place]- where she was found to have [...] foot drop?) and headaches. Negative for seizures. 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 [...] Visit [facility] Neurology - [place] [address] [place] [address] Robby Abraham MD [address] [place] [address], Level [address] [place] [address] documented as of this encounter Procedures Procedure Name Priority Date/Time Associated Diagnosis Comments THORACIC SPINE 2-3 VIEWS Routine 10/23/2016 15:18 EDT Pain in thoracic spine L SPINE 2-3 VIEWS Routine 10/23/2016 15: 18 EDT Lumbar spine pain documented in this encounter Results * THYROID ANTIBODIES (10/23/2016 15:34 EDT) Thyroglobulin Ab 16 <61 U/mL 10/25/19 17 9:24 EDT [facility] Thyroperoxidase Ab <28 <61 U/mL 2016 10:18 EDT [facility] Blood specimen (specimen) BLOOD SPECIMEN / Unknown 10/23/2016 15:34 EDT 10/23/2016 15:47 EDT Carl Flood MD CHEMISTRY & BLOOD GA S ORDERABLES [facility] [address] [place] [address] * FOLATE (10/23/2016 15:34 EDT) Folate 14.9 ng/ml 10/24/2016 13:01 EDT [facility] Comment: Deficient: ??Less than 3.4 ng/mL Indeterminate: ??3.4-5.4 ng/mL Normal: ??Greater than 5.4 ng/mL Blood specimen (specimen) BLOOD SPECIMEN / Unknown 10/23/2016 15:34 EDT 10/23/2016 15:47 EDT Narrative Authorizing Provider Result Charly Flood MD CHEMISTRY & BLOOD GA S ORDERABLES Performing Organization Address [facility] de Phone Number [facility] [address] [place] [address] * WELT WHEELER ANTIBODIES BY ALMA ROSA (10/23/2016 15:34 EDT) WELT WHEELER Antibody 1.9 <20 Units 10/24/2016 12:54 EDT [facility] Comment: Negative: <20 Units Weak Positive: 20 - 39 Units Moderate Positive: 40 - 80 Units Strong Positive: >80 Units Results were obtained with the INOVA QUANTA Lite WELT WHEELER ALMA ROSA. WELT WHEELER Values obtained with different manufacturers' assay methods may not be used interchangeably. The magnitude of the reported IgG levels cannot be correlated to an endpoint titer. A positive result in the QUANTA Lite WELT WHEELER ALMA ROSA indicates the presence of antibodies reactive with the WELT WHEELER/Sm complex but cannot distinguish between anti-Sm and anti-WELT WHEELER activity. Blood specimen (specimen) BLOOD SPECIMEN / Unknown 10/23/2016 15:34 EDT 10/23/2016 15:47 EDT Narrative Authorizing Provider Result Charly Flood MD IMMUNOLOGY AND SEROL OGY ORDERABLES Performing Organization Address [facility] de Phone Number [facility] [address] [place] [address] * SSA ANTIBODIES BY ALMA ROSA (10/23/2016 15:34 EDT) SSA Antibody 1.5 <20 Units 10/24/2016 12:53 EDT [facility] Comment: Negative: <20 Units [...] Unknown 10/23/2016 15:34 EDT 10/23/2016 15:47 EDT Cral Flood MD IMMUNOLOGY AND SEROL OGY ORDERABLES Performing Organization Address [facility] de Phone Number [facility] [address] [place] [address] * SSB ANTIBODIES BY ALMA ROSA (10/23/2016 15:34 EDT) SSB Antibody 2.6 <20 Units 10/24/2016 12:53 EDT [facility] Comment: Negative: <20 Units Weak Positive: 20 - 39 Units Moderate Positive: 40 - 80 Units Strong Positive: >80 Units Results were obtained with the Bramasol QUANTA SS-B ALMA ROSA. SS-B values obtained with different manufacturers' assay methods may not be used interchangeably. The magnitude of the reported IgG levels cannot be correlated to an endpoint titer. Blood specimen (specimen) BLOOD SPECIMEN / Unknown 10/23/2016 15:34 EDT 10/23/2016 15:47 EDT Carl Flood MD IMMUNOLOGY AND SEROL OGY ORDERABLES Performing Organization Address [facility] de Phone Number [facility] [address] [place] [address] * (ABNORMAL) COMPREHENSIVE METABOLIC PANEL (CMP) (10/23/2016 15:34 EDT) Potassium 4.2 3.5 - 5.0 mEq/L 10/23/2016 16:30 EDT [facility] Sodium 141 136 - 145 mEq/L 10/23/2016 16:30 EDT [facility] Chloride 106 96 - 110 mEq/L 10/23/2016 16:30 EDT [facility] CO2 20(L) 22 - 32 mEq/L 10/23/2016 16:30 EDT [facility] Total Alkaline Phosphatase 70 38 - 126 U/L 10/23/2016 16:30 EDT [facility] Bilirubin, Total <0.5 <1.4 mg/dl 10/24/19 17 16:30 EDT [facility] AST 19 15 - 46 U/L 10/23/2016 16:30 [facility] ALT 21 <53 U/L 10/23/2016 16:30 [facility] Albumin 4.4 3.4 - 4.9 g/dl 10/23/2016 16:30 [facility] Total Protein 7.0 6.3 - 8.2 g/dl 10/23/2016 16:30 [facility] Creatinine 0.63 0.52 - 1.04 mg/dl 10/23/2016 16:30 [facility] GFR, Calculated 103 >60 ml/min/1.7 3m2 10/23/2016 16:30 [facility] Comment: eGFR calculated using CKD-EPI equation for non Americans. Multiply eGFR by 1.16 for Americans. BUN 10 10 - 26 mg/dl 10/23/2016 16:30 [facility] Calcium 9.7 8.5 - 10.5 mg/dl 10/23/2016 16:30 [facility] Calculated Calcium 9.4 8.5 - 10.5 mg/dl 10/23/2016 16:30 [facility] Glucose, Serum 97 70 - 100 mg/dl 10/23/2016 16:30 [facility] Fasting? No 10/23/2016 15:33 [facility] Blood specimen (specimen) BLOOD SPECIMEN / Unknown 10/23/2016 15:34 EDT 10/23/2016 15:47 EDT Carl Flood MD CHEMISTRY & BLOOD GA S ORDERABLES [facility] [address] [place] [address] * (ABNORMAL) HEMAGRAM AND DIFFERENTIAL (10/23/2016 15:34 EDT) WBC 8.86 4.0 - 12.4 K/cmm 10/23/2016 16:01 [facility] RBC 4.50 3.86 - 5.04 M/cmm 10/23/2016 16:01 [facility] Hemoglobin 14.5 11.6 - 15.2 gm/dl 10/23/2016 16:01 [facility] HCT 41.2 34.9 - 44.4 % 10/23/2016 16:01 [facility] MCV 92 81 - 98 fl 10/23/2016 16:01 [facility] MCH 32.2 26.7 - 33.3 pg 10/23/2016 16:01 [facility] MCHC 35.2 32.1 - 35.9 gm/dl 10/23/2016 16:01 [facility] RDW-CV 11.9 <14.7 % 10/23/2016 16:01 [facility] RDW-SD 40.0 <50.4 fl 10/23/2016 16:01 [facility] PLT 320 141 - 377 K/cmm 10/23/2016 16:01 [facility] MPV 8.9(L) 9.5 - 12.7 fl 10/23/2016 16:01 [facility] % Neutrophils 49.8 % 10/23/2016 16:01 [facility] % Lymphocytes 39.7 % 10/23/2016 16:01 [facility] % Monocytes 6.2 % 10/23/2016 16:01 [facility] % Eosinophils 3.3 % 10/23/2016 16:01 [facility] % Basophils 0.7 % 10/23/2016 16:01 [facility] % Immature Grans 0.3 % 10/23/2016 16:01 [facility] ABS Neutrophils 4.41 2.20 - 8.85 K/cmm 10/23/2016 16:01 [facility] ABS Lymphs 3.52(H) 1.09 - 3.30 K/cmm 10/23/2016 16:01 [facility] ABS Monocytes 0.55 0.1 - 0.8 K/cmm 10/23/2016 16:01 [facility] ABS Eosinophils 0.29 0.03 - 0.61 K/cmm 10/23/2016 16:01 EDT [facility] ABS Basophils 0.06 0.01 - 0.11 K/critical access hospital 10/23/2016 16:01 EDT [facility] ABS Immature Grans 0.03 0 - 0.06 /critical access hospital 10/23/2016 16:01 EDT [facility] Type of Diff: Automated 10/23/2016 16:01 EDT [facility] Blood specimen (specimen) BLOOD SPECIMEN / Unknown 10/23/2016 15:34 EDT 10/23/2016 15:47 EDT Narrative Authorizing Provider Result Charly Flood MD PACKAGES & DNA PROBE ORDERABLES Performing Organization Address [facility] Co de Phone Number [facility] [address] [place] [address] * LYME AB (10/23/2016 15:34 EDT) Lyme AB Negative 10/24/2016 13:24 EDT [facility] Comment:Reference Range: Neg ative Blood specimen (specimen) BLOOD SPECIMEN / Unknown 10/23/2016 15:34 EDT 10/23/2016 15:47 EDT Narrative Authorizing Provider Result Charly Flood MD IMMUNOLOGY AND SEROL OGY ORDERABLES Performing Organization Address [facility] Co de Phone Number [facility] [address] [place] [address] * (ABNORMAL) C4 COMPLEMENT (10/23/2016 15:34 EDT) C4 Complement 40(H) 16 - 38 mg/dl 10/24/2016 10:34 EDT [facility] Blood specimen (specimen) BLOOD SPECIMEN / Unknown 10/23/2016 15:34 EDT 10/23/2016 15:47 EDT Narrative Authorizing Provider Result Charly Flood MD CHEMISTRY & BLOOD GA S ORDERABLES Performing Organization Address [facility]/ZIP Co de Phone Number [facility] [address] [place] [address] * (ABNORMAL) ARTHRITIS 1 (10/23/2016 15:34 EDT) Rheumatoid Factor <20 <20 IU/ml 017 10:34 EDT [facility] ADRIANA Interpretation Positive(A) Negative 10/24/2016 15:04 EDT [facility] Comment: Results were obtained with the Bramasol NOVA Lite HEp-2 ADRIANA kit by indirect immunofluorescence. ADRIANA Titer Pattern 1:320 Speckled 10/24/2016 12:46 EDT [facility] Blood specimen (specimen) BLOOD SPECIMEN / Unknown 10/23/2016 15:34 EDT 10/23/2016 15:47 EDT Carl Flood MD IMMUNOLOGY AND SEROL OGY ORDERABLES Performing Organization Address [facility] de Phone Number [facility] [address] [place] [address] * SM (AGEE) ANTIBODY (10/23/2016 15:34 EDT) Pathologist [facility] Sm (Agee) Antibody 0.9 <20 Units 10/24/2016 12:53 EDT [facility] Comment: Negative: <20 Units Weak Positive: 20 - 39 Units Moderate Positive: 40 - 80 Units Strong Positive: >80 Units Results were obtained with the Bramasol QUANTA Lite Sm ALMA ROSA. Sm values obtained with different manufacturers' assay methods may not be used interchangeably. The magnitude of the reported IgG levels cannot be correlated to an endpoint titer. Blood specimen (specimen) BLOOD SPECIMEN / Unknown 10/23/2016 15:34 EDT 10/23/2016 15:47 EDT Carl Flood MD IMMUNOLOGY AND SEROL OGY ORDERABLES Performing Organization Address [facility] de Phone Number [facility] [address] [place] [address] * ANTI DNA (DOUBLE STRAND) (10/23/2016 15:34 EDT) Pathologist [facility] Anti DNA (DS) <12.3 <30 IU/mL 10/24/2016 13:58 EDT [facility] Comment:Results were obtaine d with the iStorezVA QUANTA Lite dsDNA SC ALMA ROSA assay. Blood specimen (specimen) BLOOD SPECIMEN / Unknown 10/23/2016 15:34 EDT 10/23/2016 15:47 EDT Carl Flood MD IMMUNOLOGY AND SEROL OGY ORDERABLES [facility] [address] [place] [address] * THORACIC SPINE 2-3 VIEWS (10/23/2016 15:18 EDT) Anatomical Region Laterality Modality Other 10/23/2016 15:1 8 EDT 10/24/2016 17:55 EDT Narrative 10/24/2016 17:55 EDT THORACIC SPINE 2-3 VIEWS ??10/23/2016 3:18 PM Clinical History/Comments: M54.6-Pain in thoracic [id number]; chronic pain- suspect DDD. Comparison: None available. [...] 3:18 PM Clinical History/Comments: M54.6-Pain in thoracic [id number]; chronic pain- suspect DDD. Comparison: None available. [...] 09/08/2022 added in this encounter Care Teams Dinkey Skinner Relationship Specialty Start Date End Date None, Provider PCP - General 10/23/16 12/05/16 documented as of this encounter
--- OUTSIDE RECORDS SUMMARY | 2024-02-13 16:38 | XMS_ITS | Encounter Summary ---
Author Organization [facility] Address [address] [place] [address] Care Team Providers Care Licensed Appraiser Name Role Phone Odalys Hanley MD Primary Care Provider [phone] Encounter Details Date Type Department Care Team ([facility] Contact Info) Description 02/02/2017 Orders Only [facility] Spine Program - [address] [address] Nick Gomez PA-C [address] [place] [address] Sp[place] [address] Low back pain, unspecified back [...] Upcoming Encounters Date Type Department Care Team ([facility] Contact Info) Description 04/21/2024 15:00 EST Office Visit [facility] Neurology - [address] [address] Robby Abraham MD [address] [place] [address], Level 2 [place] [phone] documented as of this encounter Visit Diagnoses Diagnosis Low back pain, unspecified back pain laterality, unspecified chronicity, with sciatica presence unspecified- Primary documented in this encounter Care Teams Licensed Appraiser Relationship Specialty Start Date End Date Odalys Hanley MD PCP - General 12/06/16 02/05/17 documented as of this encounter
--- OUTSIDE RECORDS SUMMARY | 2024-02-13 16:38 | XMS_ITS | Encounter Summary ---
Author Organization [facility] Address [address] [place] [address] Care Team Providers Care Superintendent Of Generation Name Role Phone Ca Leggett MD Primary Care Provider Unavailable Encounter Details Date Type Department Care Team (Late Contact Info) Description 08/11/2005 Results Only [facility] [address] [place] [address] Codie Wayne NP [address] [place] [address] [place], [place] [id number] Social History Tobacco Use Types Packs/Day Years [...] [facility] Neurology - S [address] [id number] Robby Abraham MD [address] [place] [address] [address] [place] [phone] documented as of this encounter Procedures Procedure [...] ? AYDEE MEJIA ? Accession #: ? [id number] : ? 1965 (Age: 40) ??F ?Collect Date: ? 08/11/2005 Location: ? [facility] ? Receive Date: ? 08/14/2005 Provider: ?CODIE WAYNE GUEST EXPERIENCE CAPTAIN Copy to: ? Specimen/Source: ?ThinPrep Pap Test, Vagina/Cervix, processed on [employer] FX ThinPrep Imaging System, with manual evaluation Last [...] NP PATHOLOGY ORDERABLE S [facility] [address] [place] [address] documented in this encounter Visit Diagnoses Not on filedocumented in this encounter Care Teams Superintendent Of Generation Relationship Specialty Start Date End Date Ca Leggett MD PCP - General 09/07/08 12/04/10 documented as of this encounter
--- OUTSIDE RECORDS SUMMARY | 2024-02-13 16:38 | XMS_ITS | Encounter Summary ---
Author Organization [facility] Address [address] [place] [address] Care Team Providers Care Cut Off Worker Name Role Phone Suleiman Zambrano PA-C Primary Care Provider + Reason for Visit * Reason Comments Back Pain Encounter Details Date Type Department Care Team (Late Contact Info) Description 04/12/2012 Telephone [facility] Total Joint Program [place] [address] Nick Gomez PA-C [address] [place] [address] [place] [address] Back Pain Social History Tobacco [...] Description 04/21/2024 15:00 EST Office Visit [facility] Neurology - [address] [place] [address] [place] [address] Robby Abraham MD [address] [place] [address], Level [address] [place] [phone] documented as of this encounter Visit Diagnoses Not on filedocumented in this encounter Care Teams Cut Off Worker Relationship Specialty Start Date End Date Suleiman Zambrano PA-C [address] [place] [address] PCP - General 04/05/12 10/22/16 documented as of this encounter
--- OUTSIDE RECORDS SUMMARY | 2024-02-13 16:38 | XMS_ITS | Encounter Summary ---
Author Organization [facility] Address [address] [place] [address] Care Team Providers Care Community Outreach Worker Name Role Phone Unavailable Primary Care Provider Unavailabl e Encounter Details Date Type Department Care Team (Late st Contact Info) Description 09/23/1999 20:30 EDT Hospital Encounter [facility] - Other [address] [place] [address] Maury Agarwal MD [address] [place] [phone] Unknown, Provider, Social History Tobacco Use Types [...] [facility] Neurology - [place] [address] [place] [id number] Robby Abraham MD [address] [place] [address], Level [address] [place] [phone] documented as of this encounter Procedures Procedure Name Priority Date/Time Associated Diagnosis Comments LIPID PROFILE (INCLUDES CHOLESTEROL, TRIGLYCERIDES, HDL, LDL) Routine 09/23/1999 10:25 EDT COMPREHENSIVE METABOLIC PANEL (CMP) Routine 09/23/1999 10:25 EDT CYTOPATHOLOGY Routine 09/23/1999 0:00 EDT documented in this encounter Results * (ABNORMAL) LIPID PROFILE (INCLUDES CHOLESTEROL, TRIGLYCERIDES, HDL, LDL) (09/23/1999 10:25 EDT) Cholesterol 239 mg/dl [facility] Comment: Desirable:<200 Borderline:200-239 High Risk:>[id number] Triglycerides 264(H) 35 - 160 mg/dl [facility] HDL 46 mg/dl [facility] Comment: Highly Desirable:>60 Desirable:35-60 High Risk:<35 LDL, Calculated 140 mg/dl [facility] Comment: Desirable:<130 Borderline:130-159 High Risk:>[id number] Chol/HDL Ratio 5.2 [facility] 09/23/1999 10:2 5 EDT 09/23/1999 19:52 EDT Maury Agarwal MD CHEMISTRY & BLOOD GA S ORDERABLES [facility] [address] [place] [address] * COMPREHENSIVE METABOLIC PANEL (09/23/1999 10:25 EDT) Potassium 3.9 3.5 - 5.0 mEq/L [facility] Sodium 142 136 - 145 mEq/L [facility] Chloride 104 96 - 110 mEq/L [facility] CO2 24 24 - 30 mEq/L [facility] Total Alkaline Phosphatase 70 38 - 126 U/L [facility] Bilirubin, Total 0.4 0.2 - 1.3 mg/dl [facility] AST 16 8 - 50 U/L [facility] ALT 16 15 - 75 U/L [facility] Albumin 3.8 3.0 - 5.5 g/dl [facility] Total Protein 7.2 6.0 - 8.5 [...] MD CHEMISTRY & BLOOD GA S ORDERABLES [facility] [address] [place] [address] * CYTOPATHOLOGY (09/23/1999 0:00 EDT) Pathology Report: CYTOPATHOLOGY REPORT Reports generated via electronic interface contain original data; however they are lacking the format of the original report. Caution should be taken when reading/interpreti ng unformatted reports. Name: ? AYDEE MEJIA ? Accession #: ? [id number] : ? 1965 (Age: 34) ??F ?Collect [...] reviewed and electronically signed by: ? MUSA Salinas(ASCP) ? Report Date: ??09/29/1999 08:24 End of Report [facility] 09/23/1999 09/27/1999 Maury Agarwal MD PATHOLOGY ORDERABLES Performing Organization Address City/State/[facility] Co de Phone Number [facility] [address] [place] [address] documented in this encounter Visit Diagnoses Not on filedocumented in this encounter
--- OUTSIDE RECORDS SUMMARY | 2024-02-13 16:38 | XMS_ITS | Encounter Summary ---
Author Organization [facility] Address [address] [place] [address] Care Team Providers Care Sugar Refiner Name Role Phone Suleiman Zambrano PA-C Primary Care Provider + None, Provider Primary Care Provider Odalys Barrera MD Primary Care Provider [phone] Porsha Louise ND Primary Care Provider Malina matamoros Reason for Visit * Reason Onset Date Comments Coordination Of Care 09/18/2016 RTC/ Medica l referral Follow-up 09/18/2016 Encounter Details Date Type Department Care Team (Late st Contact Info) Description 09/18/2016 Telephone [facility] Rheumatology & Immunology - [address] [phone] Carl Flood Chi, MD [address] [place] [address], Level [address] [place] [phone] Coordination Of Care (RTC/ Medical referral ); [...] Telephone Encounter - Jazlyn Zamora - 09/19/2016 6566 EDT Reason for Call: Coordination Of Care (RTC/ Medical referral ) and Follow-up Summary/Symptoms: Per patient, RCT office is closed for the day. Wanted to let Daysi know. Jazlyn Zamora 09/19/2016 15:56 * Telephone Encounter - Daysi Wahl RN - 09/19/2016 1548 EDT Unable to locate the form from [facility] ([employer]). Spoke with patient, she will ask them to fax to triage [phone]. We need to fax to Medicaid for decision if transportation is medically necessary. [facility] ph# [phone]. * Telephone Encounter - Jasmeet Langley - [...] [facility] Neurology - S [address] [address] Robby Abraham MD [address] [place] [address], Level [address] [place] [phone] documented as of this encounter Visit Diagnoses Not on filedocumented in this encounter Care Teams Sugar Refiner Relationship Specialty Start Date End Date Suleiman Zambrano PA-C [address] [place] [phone] PCP - General 04/05/12 10/22/16 None, Provider PCP - General 10/23/16 12/05/16 Odalys Hanley MD PCP - General 12/06/16 02/05/17 Porsha Louise ND [address] [place], [place] [address] [place] [address] PCP - General 02/06/17 08/28/17 documented as of this encounter
--- OUTSIDE RECORDS SUMMARY | 2024-02-13 16:38 | XMS_ITS | Encounter Summary ---
Author Organization [facility] Address [address] [place] [address] Care Team Providers Care Reel And Rewinder Operator Name Role Phone Unavailable Primary Care Provider Unavailabl e Encounter Details Date Type Department Care Team (Late Contact Info) Description 09/03/2008 Orders Only [facility] Laboratory Services - [facility] ([facility]) [address] [place] [address] Jayson Ortiz MD [address] [place] [address] Social History Tobacco Use Types Packs/Day Years [...] [facility] Neurology - [address] [address] Robby Abraham MD [address] [place] [address] Level 2 [place] [phone] documented as of this encounter Procedures Procedure [...] ? MEJIA, AYDEE ? Accession #: ? [id number] ? : ? 1965 (Age: 43) ??F [...] JEY MONTEZ 09/03/2008 09/04/2008 9:3 2 EDT Jayosn Ortiz MD PATHOLOGY ORDERABLE S [facility] [address] [place] [address] documented in this encounter Visit Diagnoses Not on filedocumented in this encounter
--- OUTSIDE RECORDS SUMMARY | 2024-02-13 16:38 | XMS_ITS | Encounter Summary ---
Author Organization [facility] Address [address] [place] [address] Care Team Providers Care Clinical Laboratory Aide Name Role Phone Unavailable Primary Care Provider Unavailabl e Encounter Details Date Type Department Care Team (Late st Contact Info) Description 01/28/1999 23:17 EDT Hospital Encounter [facility] - Other [address] [place] [address] Ruth Agarwal MD [address] [place] [phone] Unknown, Provider, Social History Tobacco Use [...] 04/21/2024 15:00 EST Office Visit [facility] Neurology - [address] [place] [address] [place], [place] [phone] Robby Abraham MD [address] [place] [address], Level [address] [place] [phone] documented as of this encounter Visit Diagnoses Not on filedocumented in this encounter
--- OUTSIDE RECORDS SUMMARY | 2024-02-13 16:38 | XMS_ITS | Encounter Summary ---
Author Organization [facility] Address [address] [place] [address] Care Team Providers Care Cleaning And Washing Equipment Operator Name Role Phone Suleiman Zambrano PA-C Primary Care Provider + Reason for Referral * Radiology Services (Routine/Next Available) - Closed Specialty Diagnoses / Procedures Referred By Mayda jalloh Referred To Contact Diagnoses Low back pain Procedures L SPINE 4 OR MORE VIEWS Nick Gomez PA-C [address] [place] [phone] Referral ID Status Reason Start Date Expiration Date Visits Re quested Visits Authorized [id number] Closed 04/12/2012 1 1 Reason for Visit * Reason Comments Back Pain Encounter Details Date Type Department Care Team ([facility] st Contact Info) Description 04/12/2012 10:00 EST Office Visit [facility] Spine Program - [address] [place] [address] Nick Gomez PA-C [address] [place] [phone] Low back pain (Primary Dx); Lumbar [...] [facility] Neurology - S [place] [address] [place] [address] Robby Abraham MD [address] [place], [place] [address], Level 2 [place] [phone] documented as of this encounter Procedures Procedure [...] ??Apr 12, 2012 10:43:00 AM Clinical History/Comments: 724.5-Fngsgnt-ECW-9-CM; low back pain Comparisons: None. Findings: 4 [...] Apr 12, 2012 10:43:00 AM Clinical History/Comments: 724.8-Vjkiyno-EQA-9-CM; low back pain Comparisons: None. Findings: 4 [...] 10/23/2016 added in this encounter Care Teams Cleaning And Washing Equipment Operator Relationship Specialty Start Date End Date Suleiman Zambrano PA-C [address] [place] [phone] PCP - General 04/05/12 10/22/16 documented as of this encounter
--- OUTSIDE RECORDS SUMMARY | 2024-02-13 16:38 | XMS_ITS | Encounter Summary ---
Author Organization [facility] Address [address] [place] [address] Care Team Providers Care Machine Package Sealer Name Role Phone Porsha Louise ND Primary Care Provider Malina matamoros Encounter Details Date Type Department Care Team ([facility] Contact Info) Description 03/15/2017 10:54 EST - 03/15/2017 23:59 EST Hospital Encounter [facility] - [address] [place] [address] Carl Flood Chi, MD [address] [facility], [address] 5 [place] [phone] Discharge Disposition: Auto Discharge Social History Tobacco [...] [facility] Neurology - [address] [phone] Robby Abraham MD [address] [place] [address], Level 2 [place] [phone] documented as of this encounter Visit Diagnoses Not on filedocumented in this encounter Care Teams Machine Package Sealer Relationship Specialty Start Date [place] [address] PCP - General 02/06/17 08/28/17 documented as of this encounter
--- OUTSIDE RECORDS SUMMARY | 2024-02-13 16:38 | XMS_ITS | Encounter Summary ---
Author Organization [facility] Address [address] [place] [address] Care Team Providers Care Dice Maker Name Role Phone Ca Leggett MD Primary Care Provider Unavailable Encounter Details Date Type Department Care Team (Late Contact Info) Description 05/26/2010 Results Only [facility] Laboratory Services - [facility] ([facility]) [address] [place] [address] Zoraida Ordoñez MD [address] [place], [place] [phone] Social History Tobacco Use Types Packs/Day Years Used Date Smoking Tobacco: Never Assessed Sex and Gender Information Value Date Recorded Sex Assigned at Not on file Gender Identity Female 05/16/2019 9:18 EST Sexual Orientation Not on file documented as of this encounter Plan of Treatment Upcoming Encounters Date Type Department Care Team ([facility] Contact Info) Description 04/21/2024 15:00 EST Office Visit [facility] Neurology - [address] [address] Robby Abraham MD [address] [place] [address] Level 2 [place] [phone] documented as of this encounter Procedures Procedure [...] ? AYDEE MEJIA ? Accession #: ? [id number] ? : ? 1965 (Age: 45) ??F [...] de Phone Number [facility] [address] [place] [address] documented in this encounter Visit Diagnoses Not on filedocumented in this encounter Care Teams Dice Maker Relationship Specialty Start Date End Date Ca Leggett MD PCP - General 09/07/08 12/04/10 documented as of this encounter
--- OUTSIDE RECORDS SUMMARY | 2024-02-13 16:38 | XMS_ITS | Encounter Summary ---
Author Organization [facility] Address [address] [place] [address] Care Team Providers Care Military Equipment Specialist Name Role Phone Suleiman Zambrano PA-C Primary Care Provider + Reason for Visit * Reason Comments Back Pain Encounter Details Date Type Department Care Team ([facility] st Contact Info) Description 04/30/2012 11:30 EST Office Visit [facility] Spine Program - [address] [place] [address] Nick Gomez PA-C [address] [place] [address] [place] [phone] Low back pain (Primary Dx) [...] Info) Description 04/21/2024 15:00 EST Office Visit [facility] Neurology - [address] [place] [address] [place] [address] Robby Abraham MD [address] [place] [address], Level 2 [place] [phone] documented as of this encounter Visit Diagnoses Diagnosis Low back pain- Primary Lumbago documented in this encounter Care Teams Military Equipment Specialist Relationship Specialty Start Date End Date Suleiman Zambrano PA-C [address] [place] [phone] PCP - General 04/05/12 10/22/16 documented as of this encounter
[2024-02-13 19:38] LABS: Abs Immature Grans 0.04 10^3/uL (0.0-0.06); Absolute Basophil Count 0.05 10^3/uL (0.0-0.2); Absolute Eosinophil Count 0.07 10^3/uL (0.0-0.7); Absolute Lymphocyte Count 3.16 10^3/uL (1.2-3.4); Basophils % 0.5 %; Eosinophils % 0.6 %; HCT 37.4 % (36.0-46.0); HGB 11.7 g/dL (11.2-15.7); Immature Grans % 0.4 %; Lymphocytes % 28.9 %; MCH 27.3 pg (27.0-33.0); MCHC 31.3 % (32.0-36.0); MCV 87 fL (80-95); MPV 9.5 fL (8.0-11.0); Monocytes % 5.5 %; Neutrophils % 64.1 %; Platelet Count 433 10^3/uL (130-400); RBC 4.28 10^6/uL (3.93-5.22); RDW 14.4 % (11.7-14.6); RDW-SD 45.7 fL; WBC 10.92 10^3/uL (4.4-10.8)
[2024-02-13 20:01] LABS: Hemoglobin A1C 6.1 % (<5.7)
[2024-02-13 20:10] LABS: ALT 24 U/L (14-59); AST 19 U/L (15-37); Albumin 4.1 g/dL (3.4-5.0); Alkaline Phosphatase 87 U/L (46-116); Anion Gap 10.9 mmol/L (3-11); BUN 16 mg/dL (7-18); Bilirubin, Total 0.33 mg/dL (0.2-1.0); CO2 28.1 mmol/L (21.0-32.0); CREATININE 0.7 mg/dL (0.55-1.02); Calcium 9.4 mg/dL (8.5-10.1); Chloride 105 mmol/L (98-107); Estimated GFR 98.34 (mL/min/1.73m2); Glucose 88 mg/dL (74-106); Potassium 4.4 mmol/L (3.5-5.1); Sodium 144 mmol/L (136-145); TSH (W/Ref FT4) 0.48 uIU/mL (0.36-3.74); Total Protein 7.8 g/dL (6.4-8.2)
[2024-02-14 18:35] LABS: Estradiol 14 pg/mL (See Note)
[2024-02-14 18:36] LABS: T3, Total 114 ng/dL (97-169)
[2024-02-14 19:18] LABS: Progesterone <0.2 ng/mL (See Table)
[2024-02-14 19:50] LABS: FSH 47.1 mIU/mL (See Note); Prolactin 5.1 ng/mL (See Note)
== END 2024-02-13 16:33 | disposition home or self-care (01) ==
LOC: NCHCN 16:32
PROVIDERS: PCP Nurse Practitioner Family; Visit Provider Nurse Practitioner Family
DX: R23.2 Flushing (principal); R20.8 Other disturbances of skin sensation
CPT/HCPCS: 80053; 82670; 83001; 83036; 84144; 84146; 84443; 84480; 85025

== ENCOUNTER 2024-03-14 00:06 | Outpatient (CLI) | payer OTHER, MEDICAID, SELFPAY ==
--- NOTE | 2024-03-14 | DI.MRI_ITS ---
Exam(s) MR LOWER EXTREMITY LT WO CLINICAL HISTORY: Pain in lt leg, M79.605, ? tendon rupture vs atrophied muscle lt lower leg. TECHNIQUE: Multiplanar multisequence MRI was performed. The field of view includes the knee through ankle. CONTRAST MATERIAL: Noncontrast COMPARISON: None. FINDINGS: BONES/JOINTS: No fracture or contusion pattern. No bone lesions identified. The talar dome is smooth. The ankle mortise is maintained. No joint ankle or knee effusion is present. Knee: No evidence of ligament or tendon tear at the level of the knee. No gross evidence of a menisc al tear. MUSCULOTENDINOUS STRUCTURES: Achilles tendon is intact. The planar fascia is unremarkable. The medial flexor, anterior extensor, and peroneal tendons are intact. SOFT TISSUES: The subcutaneous fat is unremarkable. No evidence of discrete muscle atrophy. No sign ificant muscle edema. No evidence of hematoma. IMPRESSION: Unremarkable MRI of the Left lower extremity.. DATA REPOSITORY:
== END 2024-03-14 00:26 ==
LOC: DI 00:06
PROVIDERS: PCP Nurse Practitioner Family; Visit Provider Nurse Practitioner Family
DX: M79.605 Pain in left leg (principal)
CPT/HCPCS: 73718

== ENCOUNTER 2024-04-17 02:57 | Outpatient (CLI) | payer OTHER, MEDICAID, SELFPAY ==
--- NOTE | 2024-04-17 | DI.MRI_ITS ---
Exam(s) MR LOWER EXTREMITY LT WO EXAM: MR LOWER EXTREMITY LT WO CLINICAL HISTORY: Pain in lt foot, M79.672; forefoot, 2nd, 3rd, 4th toe pain. TECHNIQUE: Multiplanar multisequence MRI was performed. COMPARISON: No exams were available for comparison FINDINGS: BONES/JOINTS: No evidence of fracture. No evidence of bone lesion. No joint space narrowing identifie d. No joint effusion identified.The toes are unremarkable. There is normal marrow signal.There are w ell-circumscribed lesions involving the proximal metaphyseal regions of the 3rd and 4th metatarsals. There hypointense on the T1 and hyperintense on the T2 weighted images. There is no disruption of t he overlying cortex. No soft tissue masses associated with them. There is otherwise normal marrow s ignal. LIGAMENTS: The medial and lateral collateral ligaments are intact. MUSCULOTENDINOUS STRUCTURES: Visualized portion of the planar fascia is unremarkable. The visualized intrinsic muscles and tendons of the foot are unremarkable. SOFT TISSUES: Unremarkable. OTHER FINDINGS: None. IMPRESSION: 1. Unremarkable appearance of the toes. No evidence of a soft tissue mass, ligament or tendon injury involving the toes. 2. Well-circumscribed lesions seen in the proximal metaphyses of the 3rd and 4th metatarsals. The fin dings have benign characteristics and may represent simple cysts or benign lesion such as enchondroma s. 3. No evidence of a fracture. DATA REPOSITORY:
== END 2024-04-17 03:17 ==
PROVIDERS: PCP Nurse Practitioner Family; Visit Provider Nurse Practitioner Family
DX: M79.672 Pain in left foot (principal)
CPT/HCPCS: 73718

== ENCOUNTER 2024-04-22 13:46 | Outpatient (CLI) | payer OTHER, MEDICAID, SELFPAY ==
--- NOTE | 2024-04-22 06:00 | DI.RAD_ITS ---
Exam(s) XR PAIN CLINIC LUMBAR SP 2V EXAM: XR PAIN CLINIC LUMBAR SP 2V CLINICAL HISTORY: Dx: Lumbar Radiculopathy TECHNIQUE: 2D and realtime digital imaging was performed. CONTRAST MATERIAL: Refer to procedure report. COMPARISON: No exams were available for comparison FINDINGS: Fluoroscopy was provided for Dr. Mulligan during the performance of a transforaminal epidural steroid injection. Please refer to the procedure report for complete details. Ka,r=23.4 mGy IMPRESSION: RADIATION DOSE DELIVERED: 0.0 0.0 0
[2024-04-22 14:29] VITALS: BP 107/81; PULSE 70; RESP 20; TEMP 36.9; O2SAT 94
--- NOTE | 2024-04-22 14:55 | PDOC.PAIN ---
Date of service: 04/22/24 Time of Service: 15:18 Pain Managment Procedure Note Procedure Note Procedure Note: Lumbar Transforaminal Epidural Steroid Injection ? Location: LEFT L5-S1 ? Pre-procedure Diagnosis: M54.17-Radiculopathy, lumbosacral region M54.16 Radiculopathy, lumbar region ? Post-procedure Diagnosis:? The same as above ? Sedation:? none ? Estimated blood loss:? less than 2 cc ? Surgeon:? Sandro Mulligan MD COMMENT: severe foraminal stenosis Left L5-S1 ? Procedure Detail:?? The procedure and potential risks were explained to the patient and informed written consent was obtained. The patient was escorted to the procedure room and placed in the prone position. Pillows were utilized for proper positioning and comfort. Time out was performed in the procedure room with nursing staff confirming the patient's identity, procedure to be performed, allergies, and any blood thinning or anti-platelet medications. The patient's lower back was prepped with ChloraPrep and draped in a sterile fashion. Sterile gloves were used, a face mask was worn, and new single dose vials of all medications were used with the top being swabbed with alcohol and given time to dry prior to withdrawal of medication. A LEFT-sided oblique fluoroscopic view was obtained, with visualization of L5-S1. Lidocaine 1% was used to anesthetize the skin. The tip of a 22-gauge, Quincke needle was advanced toward the 6 o'clock position of the superior pedicle at the target level.? It was advanced just under the pedicle to the neural foramen L5-S1. Correct needle placement was confirmed through review of the fluoroscopy. Next, following negative aspiration, 1cc's of Omnipaque 240 contrast was injected under live fluoroscopy which showed good flow throughout the epidural space and no evidence of vascular flow or flow into adjacent compartments. Next, following negative aspiration, 15mg of preservative-free dexamethasone and 0.5ml of 0.5% bupivacaine was injected. The needle was gently removed.? ? The patient tolerated the procedure well.? Permanent images saved and recorded. Plan:? Follow up prn PAIN: PRE PROCEDURE 11/16 POST PROCEDURE 06/16 COMMENT: CONSIDER REPEAT WITH DEPO-MEDROL
[2024-04-22 15:06] VITALS: O2SAT 97
[2024-04-22 15:10] VITALS: O2SAT 98
[2024-04-22] MEDS: Omnipaque 240 MG/ML 50 ML BTL IJ (15:19)
[2024-04-22] MEDS: Dexamethasone Sod. Phos./Pres-Free 10 MG/ML VIAL IJ (15:20)
[2024-04-22] MEDS: Nerve Block Tray 1 EACH MC (15:20)
[2024-04-22] MEDS: Bupivacaine 0.5% Pres-Free 10 ML VIAL IJ (15:20)
== END 2024-04-22 13:47 | disposition home or self-care (01) ==
LOC: PC 13:46
PROVIDERS: PCP Nurse Practitioner Family; Visit Provider Anesthesiology Pain Medicine
DX: M54.17 Radiculopathy, lumbosacral region (principal); M54.16 Radiculopathy, lumbar region
CPT/HCPCS: 00123; 64483; 72100; J0665; J1100; Q9967

== ENCOUNTER 2024-06-03 10:24 | Outpatient (CLI) | payer OTHER, MEDICAID, SELFPAY ==
--- NOTE | 2024-06-03 06:00 | DI.RAD_ITS ---
Exam(s) XR PAIN CLINIC LUMBAR SP 2V EXAM: XR PAIN CLINIC LUMBAR SP 2V CLINICAL HISTORY: Dx: Lumbar Radiculopathy. TECHNIQUE: Fluoroscopy was provided for the referring physician for guidance with performing pain cl inic injection procedure. COMPARISON: No exams were available for comparison FINDINGS: Please see procedure note for details. Fluoro time: 60.8 seconds RADIATION DOSE DELIVERED: Ka,r=55.38 mGy
[2024-06-03 10:32] VITALS: BP 128/87; PULSE 83; RESP 18; TEMP 36; O2SAT 94
--- NOTE | 2024-06-03 10:42 | PDOC.PAIN_ITS ---
Date of service: 06/03/24 Time of Service: 11:26 Pain Managment Procedure Note Procedure Note Procedure Note: Lumbar Transforaminal Epidural Steroid Injection ? Location: LEFT L5-S1 ? Pre-procedure Diagnosis: [M54.17-Radiculopathy, lumbosacral region] [M54.16 Radiculopathy, lumbar region] ? Post-procedure Diagnosis:? The same as above ? Sedation:? none ? Estimated blood loss:? less than 2 cc ? Surgeon:? Sandro Mulligan MD COMMENT: Patient has severe foraminal stenosis on the left at L5-S1 she is status post laminectomy at that level. She had transforaminal steroid injection in April which gave her good relief but it was transient and her pain returned after shoveling snow. Plan was to proceed with repeat injection using Depo-Medrol instead of dexamethasone and add a level as pain is going into S1 distribution which hopefully will last longer. ? Procedure Detail:?? The procedure and potential risks were explained to the patient and informed written consent was obtained. The patient was escorted to the procedure room and placed in the prone position. Pillows were utilized for proper positioning and comfort. Time out was performed in the procedure room with nursing staff confirming the patient's identity, procedure to be performed, allergies, and any blood thinning or anti-platelet medications. The patient's lower back was prepped with ChloraPrep and draped in a sterile fashion. Sterile gloves were used, a face mask was worn, and new single dose vials of all medications were used with the top being swabbed with alcohol and given time to dry prior to withdrawal of medication. A LEFT-sided oblique fluoroscopic view was obtained, with visualization of L5-S1. Lidocaine 1% was used to anesthetize the skin. The tip of a 22-gauge, Quincke needle was advanced toward the 6 o'cloc k position of the superior pedicle at the target level.? It was advanced just under the pedicle to the neural foramen L5-S1. Correct needle placement was confirmed through review of the fluoroscopy. Next, following negative aspiration, 1cc's of Omnipaque 240 contrast was injected under live fluoroscopy which showed good flow throughout the epidural space and no evidence of vascular flow or flow into adjacent compartments. Next, following negative aspiration, 40mg Depo-Medrol and 0.5ml of 0.5% bupivacaine was injected. The needle was gently removed.?The procedure was repeated at the S1 level. The patient tolerated the procedure well.? Permanent images saved and recorded. Plan:? Follow up prn PAIN: PRE PROCEDURE 10/16 POST PROCEDURE 06/16 COMMENT: Could repeat if patient gets long-lasting relief Otherwise consider surgical reevaluation.
[2024-06-03 11:00] VITALS: PULSE 85; O2SAT 91
[2024-06-03 11:11] VITALS: PULSE 70; O2SAT 93
[2024-06-03 11:20] VITALS: PULSE 78; O2SAT 93
[2024-06-03] MEDS: Omnipaque 240 MG/ML 50 ML BTL IJ (11:28)
[2024-06-03] MEDS: Bupivacaine 0.5% Pres-Free 10 ML VIAL IJ (11:28)
[2024-06-03] MEDS: Nerve Block Tray 1 EACH MC (11:28)
[2024-06-03] MEDS: methylPREDNISolone ACETATE 40 MG/ML VIAL IJ (11:29)
== END 2024-06-03 10:25 | disposition home or self-care (01) ==
LOC: PC 10:25
PROVIDERS: PCP Nurse Practitioner Family; Visit Provider Anesthesiology Pain Medicine
DX: M54.17 Radiculopathy, lumbosacral region (principal); M54.16 Radiculopathy, lumbar region
CPT/HCPCS: 00123; 64483; 64484; 72100; J0665; J1010; Q9967

== ENCOUNTER 2024-06-30 14:13 | Outpatient (CLI) | payer OTHER, MEDICAID, SELFPAY ==
--- NOTE | 2024-06-30 06:00 | DI.RAD_ITS ---
Exam(s) XR PAIN CLINIC THORACIC SP 2V EXAM: XR PAIN CLINIC THORACIC SP 2V CLINICAL HISTORY: Thoracic radiculitis. TECHNIQUE: Fluoroscopy was provided for the referring physician for guidance with performing pain cl inic injection procedure. COMPARISON: No exams were available for comparison FINDINGS: Please see procedure note for details. Fluoro time: 37.9 seconds RADIATION DOSE DELIVERED: uday Che=11.24 mGy
[2024-06-30 14:21] VITALS: BP 136/75; PULSE 71; RESP 20; TEMP 36.9; O2SAT 99
--- NOTE | 2024-06-30 14:45 | PDOC.PAIN ---
Date of service: 06/30/24 Time of Service: 15:20 Pain Managment Procedure Note Procedure Note Procedure Note: Thoracic Interlaminar Epidural Steroid Injection ? Location: T5-6 ? Pre-procedure Diagnosis: M54.14- Radiculopathy, thoracic region ? Post-procedure Diagnosis: ?The same as above ? Sedation:? ? none ? Estimated blood loss:? less than 2 cc ? Surgeon:? Sandro Mulligan MD ? Procedure Detail:? The procedure and potential risks were explained to the patient and informed written consent was obtained. The patient was escorted to the procedure room and placed in the prone position. Pillows were utilized for proper positioning and comfort. Time out was performed in the procedure room with nursing staff confirming the patient's identity, procedure to be performed, allergies, and any blood thinning or anti-platelet medications.? The patient's neck and upper back was prepped with ChloraPrep and draped in a sterile fashion. Sterile technique was maintained throughout the procedure.? Sterile gloves were used, a face mask was worn, and new single dose vials of all medications were used with the top being swabbed with alcohol and given time to dry prior to withdrawal of medication. Using a 25-gauge 1.5 inch needle, 1% lidocaine was instilled into the superficial soft tissue overlying the targeted area to provide local anesthesia. With fluoroscopic guidance, a 17 -gauge Tuohy needle was advanced toward the interlaminar space of T5-6. The needle was then advance through the ligamentum flavum and into the posterior epidural space using the loss of resistance technique. Correct needle placement was confirmed through review of the AP and contralateral oblique fluoroscopic views. A 19-gauge arrow catheter was threaded cephalad to the Right Following negative aspiration, one cc of Omnipaque 240 contrast was injected which confirmed good flow throughout the epidural space and no evidence of vascular flow or flow into adjacent compartments. Next, following negative aspiration, 1 cc's of normal saline and 80mg of Depo-Medrol was injected. The needle was gently removed. The patient tolerated the procedure well and was transported to the recovery area for observation and discharge instructions. Permanent images saved and recorded.? PAIN LEVEL: PRE-PROCEDURE 10 POST-PROCEDURE 0/10 Plan:? Follow up as needed Coding Conscious Sedation used for procedure: No CPT Codes: Inj Spine C/T w/Imaging - 33811 ([id number] ~G) Additional Codes: Date of Service (38745) Date of service: 06/30/24
[2024-06-30 15:06] VITALS: PULSE 82; O2SAT 95
[2024-06-30 15:10] VITALS: PULSE 79; O2SAT 97
[2024-06-30] MEDS: methylPREDNISolone ACETATE 40 MG/ML VIAL IJ (15:23)
[2024-06-30] MEDS: Epidural Tray 1 EACH MC (15:23)
[2024-06-30] MEDS: Omnipaque 240 MG/ML 50 ML BTL IJ (15:23)
== END 2024-06-30 14:14 | disposition home or self-care (01) ==
LOC: PC 14:13
PROVIDERS: PCP Nurse Practitioner Family; Visit Provider Anesthesiology Pain Medicine
DX: M54.16 Radiculopathy, lumbar region (principal)
CPT/HCPCS: 62321; 72070; J1010; Q9967

== ENCOUNTER 2024-11-07 10:00 | Emergency (ER) | payer OTHER, MEDICAID, SELFPAY ==
[2024-11-07 10:15] VITALS: BP 112/71; PULSE 85; RESP 16; TEMP 36.9; O2SAT 95
--- NOTE | 2024-11-07 10:49 | ED.GENADUL_ITS ---
Discharge Plan Disposition Patient Disposition: Home Condition: Stable Discharge Details Clinical Impression: Acute exacerbation of chronic low back pain Primary Care Provider: Jacey Amador ED Provider: Luis Armando Smith Home Meds and New Rx's Prescriptions: New lidocaine 5 % adhesive patch,medicated 1 patch topical DAILY Qty: 30 0RF Rx Instructions: leave on most painful area for up to 12 hrs cyclobenzaprine 10 mg tablet 5 mg PO TID Qty: 30 0RF prednisone 20 mg tablet 40 mg PO DAILY Qty: 8 0RF Rx Instructions: start 11/08/24 Continued valacyclovir 1 gram tablet 1,000 mg PO DAILY PRN gabapentin 600 mg tablet 1,200 mg PO BID albuterol 90 mcg/actuation Aerosol 90 mcg INHALATION Q6H PRN PRN omeprazole 3 tab PO DAILY Patient Comments: Pt states she takes 1 in the AM and two at night. Pt unsure of dosage 11/07/24 loratadine [Claritin] 10 mg tablet 10 mg PO DAILY PRN Discharge Instructions Instructions: Low Back Pain ED Additional Instructions: Please follow-up with a back specialist. Please follow-up with your primary care physician. Call today to arrange timely follow-up. Please follow-up with pain management. Please follow-up with physical therapy. Return to the emergency department immediately for any worsening or new concerning symptoms. Stand Alone Forms: Physical Therapy Referral Referrals: Jacey Amador [Primary Care Provider, Medicine] Andrea Méndez DO [OSTEOPATHIC DOCTOR, Pain Medicine] Discharge Data Discharge Date/Time-TO BE ENTERED AT DEPARTURE: 11/07/24 11:02 HPI General Mode of arrival: ambulatory . Date/Time Provider Initiated Documentation: 11/07/24 10:30 . Limitations to Documentation: no limitations . Information obtained by: patient . HPI Narrative: HISTORY OF PRESENT ILLNESS 59-year-old female with lumbar postlaminectomy syndrome, peripheral neuropathy, lumbar radiculitis, and chronic low back pain presenting with worsening symptoms. Back pain intensified after injections wore off last month, causing her to be bedridden and injure her arm while getting out of bed. Reports pinched nerve in back and left hip, significant discomfort, compromised mobility, instability when walking, and morning stiffness. Appointment with PCP on 12/03/2024 but feels unable to wait. Consulted neurologist for foot issues, including immobile toes. Underwent surgery for synovial cyst and saw several physical therapists. No recent trauma, car accidents, or falls. Unable to take aspirin or ibuprofen due to stomach issues, prefers not to take opioids. Takes Tylenol but not today. Difficulty finding comfortable sleeping position. Pain exacerbated by sitting, standing, and lying down. Legs buckled after sneezing while standing. Performing exercises from a book but unsure of benefit. No bowel or bladder dysfunction. Reports swelling in feet, legs, and ankles, worsens with prolonged sitting or standing. Takes gabapentin for neuropathy, omeprazole for stomach issues, and albuterol. PAST SURGICAL HISTORY: Lumbar discectomy for synovial cyst Related Data Home Medications ?Medication ?Instructions ?Recorded ?Confirmed albuterol 90 mcg/actuation aerosol 90 mcg inhalation Q 6H PRN PRN 03/24/21 11/07/24 inhaler valacyclovir 1 gram tablet 1,000 mg PO DAILY PRN 08/1311/07/24 gabapentin 600 mg tablet 1,200 mg PO BID 03/31/2405/03 loratadine 10 mg tablet (Claritin) 10 mg PO DAILY PRN 04/22/24 11/07/24 cyclobenzaprine 10 mg tablet 5 mg (1/2 x 10 mg) PO TID #30 tabs 11/07/24 lidocaine 5 % topical patch 1 patch topical DAILY #30 ea 11/07/24 omeprazole 3 tab PO DAILY 11/07/2405/03 prednisone 20 mg tablet 40 mg (2 x 20 mg) PO DAILY # 8 tabs 11/07/24 Previous Rx's ?Medication ?Instructions ?Recorded cyclobenzaprine 10 mg tablet 5 mg (1/2 x 10 mg) PO TID #30 tabs 11/07/24 lidocaine 5 % topical patch 1 patch topical DAILY #30 ea 11/07/24 prednisone 20 mg tablet 40 mg (2 x 20 mg) PO DAILY # 8 tabs 11/07/24 Allergies Allergy/AdvReac Type Severity Reaction Status Date / Time ketorolac (From Toradol) Allergy Unknown Hand Verified 11/07/24 10:19 Swelling duloxetine (From Cymbalta) Allergy Skin Rash Verified 11/07/24 10:19 Influenza Virus Vaccines Allergy Swelling/Ed Verified 11/07/24 10:19 tashi metoprolol Allergy Itching Verified 11/07/24 10:19 Penicillins Allergy Swelling/Ed Verified 11/07/24 10:19 tashi phenytoin (From Dilantin) Allergy Hives Verified 11/07/24 10:19 codeine AdvReac Intermediate Other (See Verified 11/07/24 10:19 Comment) naproxen (From Naprosyn) AdvReac Intermediate Swelling/Ed Verified 11/07/24 10:19 tashi amitriptyline AdvReac Mild Skin Rash Verified 11/07/24 10:19 metoclopramide AdvReac Mild Skin Rash Verified 11/07/24 10:19 aspirin AdvReac Nausea Verified 11/07/24 10:19 NSAIDS (Non-Steroidal AdvReac gi bleed Verified 11/07/24 10:19 Anti-Inflamma General Stated Complaint: Nk/Back Pain SIDNEY: 3 Exam Const General: cooperative HENMT Mouth: moist mucous membranes Eyes Sclera: normal sclerae EOM: EOM intact bilaterally Neck Neck: trachea midline and supple Resp Auscultation: clear to auscultation bilaterally, no rales, no rhonchi and no wheezes Cardio Rate: regular rate and not tachycardic Rhythm: regular rhythm GI Palpation: soft, not firm, no guarding, no masses, not rigid and nontender Back/Spine/Pelvis Thoracic/Lumbar Spine: paraspinal tenderness (low lumbar right), No thoracic spinal tenderness and No lumbar spinal tenderness Skin General skin exam: no rashes or lesions noted Neuro General: patient alert, patient awake, patient oriented x3 and tone normal Cognition: normal cognition Motor: strength 5/5 throughout Sensory Exam: no sensory deficits noted (bilateral LEs) Other: no saddle anesth Extrem General: no edema Course Vital Signs Vital signs: Vital Signs Temperature 36.9 C 11/07/24 10:15 Pulse 85 11/07/24 10:15 Respiratory Rate 16 11/07/24 10:15 Blood Pressure 112/71 11/07/24 10:15 Pulse Oximetry 95 11/07/24 10:15 Temperature 36.9 C 11/07/24 10:15 Temperature Source Oral 11/07/24 10:15 Pulse 85 11/07/24 10:15 Respiratory Rate 16 11/07/24 10:15 Blood Pressure 112/71 11/07/24 10:15 Blood Pressure Position Sitting 11/07/24 10:15 Pulse Oximetry 95 11/07/24 10:15 Oxygen Delivery Method Room Air 11/07/24 10:15 Oxygen Flow Rate 0 11/07/24 10:15 Pain Level 4 11/07/24 10:15 Medical Decision Making ASSESSMENT AND PLAN Initial Assessment: 59-year-old female with chronic low back pain, worsening after pain injections wore off last month. Differential Diagnosis: - Bulging disc: Nerve root inflammation. Injection today. Start prednisone 5-day course. Apply lidocaine patch. Prescription for lidocaine patch. Discontinue current medication. Start Flexeril 10 mg. Add Tylenol. Referral to spinal specialist. Potential MRI. Maintain light mobility. Referral to physical therapy once stabilized. - Peripheral neuropathy: Taking gabapentin. - Dependent edema: Reduced activity levels. Recommend compression stockings. ED Course: - Prednisone started - Lidocaine patch applied - Tylenol given Final Assessment: Multimodal pain management initiated including prednisone, lidocaine patch, Tylenol, cyclobenzaprine. Referral to spinal specialist and physical therapy planned. Compression stockings recommended for dependent edema. Clinical Impression: - Bulging disc - Peripheral neuropathy Disposition: - Discharge: Home. Return if symptoms worsen or new issues arise. - Follow-Up: Referral to spinal specialist. Referral to physical therapy. Patient Education: Discussed pain management plan, use of lidocaine patch, importance of light mobility, and compression stockings. This document was written with the assistance of [employer]. The patient consented to its use. [facility] All Active Problems Acute exacerbation of chronic low back pain (Acute) Thoracic radiculitis (Acute) Pain in both feet (Acute) Neuropathy (Acute) Lumbar spondylosis (Acute) Cervical spondylosis (Acute) Cervicalgia (Acute) Mechanical low back pain (Acute) Lumbar radiculitis (Acute) Bilateral hip joint arthritis (Acute) Trochanteric bursitis, left hip (Acute) Trochanteric bursitis, right hip (Acute) Wrist arthropathy (Acute) De Quervain's tenosynovitis, left (Acute) Osteoarthritis of carpometacarpal (CMC) joint of left thumb (Acute) Peripheral neuropathy (Acute) Nasal vestibulitis (Acute) Change in voice (Acute) Nasal mucosa dry (Acute) Lumbar post-laminectomy syndrome (Acute) Trochanteric bursitis of both hips (Acute) L HIP--02/11/24 R HIP inj: 10/14/24 Atypical chest pain (Acute) PATRICIA (obstructive sleep apnea) (Chronic) Screening for colon cancer (Acute) Medical History Encounter for cholecystectomy Functional gait abnormality History of depression Itchy skin Glaucoma Hoarseness Edema Cigarette smoker Diverticulitis GERD (gastroesophageal reflux disease) Migraine headache Peripheral neuropathy Gait abnormality Depression Agoraphobia Obesity Hyperlipidemia Herpes stomatitis Somatization disorder Cluster headaches Hip pain Chronic low back pain Sciatica Encounter to discuss test results Pain of left calf Surgical History H/O Spinal surgery History of partial colectomy History of appendectomy Family History Mother Breast cancer FAMILY HX OF BREAST CANCER 1 GENE M[employer] Brother Gout Kidney stones Cancer Son GERD (gastroesophageal reflux disease) Social History Smoking/Tobacco Use Status: Former Tobacco Use Smoking risk assessment performed?: Yes Alcohol Intake: current Alcohol Intake frequency: holidays/special occasions only Alcohol type: wine Drug use: Rarely Substance use type: marijuana Household members: none Number of Children: 1 current occupation: Disabled What is your relationship status?: Panel score (0-1 are the most socially isolated patients): 0 Do you feel safe at home: Yes Do you feel safe in your relationship?: Yes
[2024-11-07] MEDS: Acetaminophen 325 MG TAB 650 MG PO (10:53)
[2024-11-07] MEDS: Cyclobenzaprine 10 MG TAB PO (10:54)
[2024-11-07] MEDS: Lidocaine 5% Patch 1 PATCH TP (10:54)
[2024-11-07] MEDS: predniSONE 20 MG TAB 40 MG PO (10:54)
== END 2024-11-07 11:02 | disposition home or self-care (01) ==
PROVIDERS: Emergency Provider Student in an Organized Health Care Education/Training Program; PCP Nurse Practitioner Family
DX: M54.50 Low back pain, unspecified (principal); G89.29 Other chronic pain; E78.5 Hyperlipidemia, unspecified; Z87.891 Personal history of nicotine dependence
CPT/HCPCS: 99283; J7512

== ENCOUNTER 2025-02-07 00:42 | Emergency (ER) | payer OTHER, MEDICAID, SELFPAY ==
[2025-02-07] VITALS (29 sets, daily range): BP systolic 108–154; BP diastolic 36–61; PULSE 64–81; RESP 9–33; TEMP 35.9; O2SAT 90–98
--- NOTE | 2025-02-07 01:30 | RT.EKG_ITS ---
APPROVED REPORT Exam: Resting ECG Reason for Exam: Weakness Patient Location: E HR:74 bpm ECG Measurements Heart Rate 74 AXIS UT 146 P 64 QRSd 103 QRS 3 QT 420 T 4 QTc 465 Conclusion Sinus rhythm...normal P axis, V-rate 60- 99 Low voltage, precordial leads...precordial leads <1.0mV
[2025-02-07] MEDS: Ondansetron 4 MG/2 ML VIAL IVP (01:31)
[2025-02-07] MEDS: Pantoprazole 40 MG VIAL IVP (01:33)
[2025-02-07 01:34] LABS: Abs Immature Grans 0.02 10^3/uL (0.0-0.06); HCT 36.4 % (36.0-46.0); HGB 12.0 g/dL (11.2-15.7); Immature Grans % 0.3 %; MCH 28.6 pg (27.0-33.0); MCHC 33.0 % (32.0-36.0); MCV 87 fL (80-95); MPV 9.2 fL (8.0-11.0); Platelet Count 338 10^3/uL (130-400); RBC 4.19 10^6/uL (3.93-5.22); RDW 13.7 % (11.7-14.6); RDW-SD 43.6 fL; WBC 7.64 10^3/uL (4.4-10.8)
[2025-02-07] MEDS: ACETAMINOPHEN 1,000 MG/100 ML BAG 400 MG IVPB (01:35)
[2025-02-07] MEDS: Normal Saline 1,000 ML 1000 ML IV (01:36)
[2025-02-07 01:55] LABS: ALT 21 U/L (14-59); AST 18 U/L (15-37); Albumin 3.8 g/dL (3.4-5.0); Alkaline Phosphatase 87 U/L (46-116); Anion Gap 11.9 mmol/L (3-11); BUN 6 mg/dL (7-18); Bilirubin, Total 0.3 mg/dL (0.2-1.0); CO2 27.1 mmol/L (21.0-32.0); Calcium 9.2 mg/dL (8.5-10.1); Chloride 104 mmol/L (98-107); Glucose 97 mg/dL (74-106); Magnesium 1.8 mg/dL (1.8-2.4); Potassium 3.9 mmol/L (3.5-5.1); Sodium 143 mmol/L (136-145); Total Protein 7.4 g/dL (6.4-8.2)
--- NOTE | 2025-02-07 01:57 | W.ED.GENAD ---
Discharge Plan Disposition Patient Disposition: Home Discharge Details Clinical Impression: Esophagitis Primary Care Provider: Jacey Amador ED Provider: Lopez Cornelius Home Meds and New Rx's Prescriptions: New famotidine [Pepcid] 40 mg tablet 40 mg PO BID Qty: 20 0RF No Action valacyclovir 1 gram tablet 1,000 mg PO DAILY PRN gabapentin 600 mg tablet 1,200 mg PO BID albuterol 90 mcg/actuation Aerosol 90 mcg INHALATION Q6H PRN PRN omeprazole 3 tab PO DAILY Patient Comments: Pt states she takes 1 in the AM and two at night. Pt unsure of dosage 11/07/24 lidocaine 5 % adhesive patch,medicated 1 patch topical DAILY Qty: 30 0RF Rx Instructions: leave on most painful area for up to 12 hrs cyclobenzaprine 10 mg tablet 5 mg PO TID Qty: 30 0RF prednisone 20 mg tablet 40 mg PO DAILY Qty: 8 0RF Rx Instructions: start 11/08/24 loratadine [Claritin] 10 mg tablet 10 mg PO DAILY PRN Discharge Instructions Instructions: Esophagitis Additional Instructions: Continue to take your oral omeprazole as previously directed. To this, you should take 40 mg of oral famotidine (Pepcid) twice a day, morning and night. You can also take 30 mL (2 tablespoons) of oral Maalox or Mylanta every 6 hours as needed for ongoing symptoms. Try this for 7 to 10 days and see if your symptoms have not resolved. If they have not, contact your regular primary care doctor and schedule follow-up. Consider a referral to gastroenterology for further evaluation and management. You can always return to the ER for any new concerns or sudden changes in your health which you feel require emergency medical attention. Discharge Data Discharge Physician: Lopez Cornelius [facility] General Date/Time Provider Initiated Documentation: 02/07/25 00:46. HPI Narrative: The patient is a 60-year-old female, with a past medical history significant for: cholecystitis status post cholecystectomy, gastroesophageal reflux disease, diverticulitis, presents to the emergency department this evening complaining of upper abdominal discomfort radiates into her chest, mid back, and jaw. The patient states that the symptoms have been ongoing for approximately 3 weeks. The patient tells me that she thinks she had norovirus that began approximately 3 weeks ago. The patient tells me that multiple people in her community had a nausea, vomiting, and diarrhea illness which she thinks that she contracted. She tells me that she no longer has any diarrhea, but has difficulty eating food because every time she does she becomes nauseated and has worsening upper abdominal discomfort. The patient tells me that she feels bloated. She has not had a bowel movement more than 24 hours. She contacted her primary care doctor's office to try to schedule a follow-up appointment for next week, and the triage nurse told her that she needed to get ambulance immediately for her symptoms to the emergency room for evaluation. Related Data Home Medications Medication Instructions Recorded Confirmed albuterol 90 mcg/actuation aerosol 90 mcg inhalation Q6H PRN PRN 03/24/21 11/07/24 inhaler valacyclovir 1 gram tablet 1,000 mg PO DAILY PRN 08/14/23 11/07/24 gabapentin 600 mg tablet 1,200 mg PO BID 03/31/24 11/07/24 loratadine 10 mg tablet (Claritin) 10 mg PO DAILY PRN 04/22/24 11/07/24 cyclobenzaprine 10 mg tablet 5 mg (1/2 x 10 mg) PO TID #30 tabs 11/07/24 lidocaine 5 % topical patch 1 patch topical DAILY #30 ea 11/07/24 omeprazole 3 tab PO DAILY 11/07/24 11/07/24 prednisone 20 mg tablet 40 mg (2 x 20 mg) PO DAILY #8 tabs 11/07/24 famotidine 40 mg tablet (Pepcid) 40 mg PO BID #20 tabs 02/07/25 Previous Rx's Medication Instructions Recorded cyclobenzaprine 10 mg tablet 5 mg (1/2 x 10 mg) PO TID #30 tabs 11/07/24 lidocaine 5 % topical patch 1 patch topical DAILY #30 ea 11/07/24 prednisone 20 mg tablet 40 mg (2 x 20 mg) PO DAILY #8 tabs 11/07/24 famotidine 40 mg tablet (Pepcid) 40 mg PO BID #20 tabs 02/07/25 Allergies Allergy/AdvReac Type Severity Reaction Status Date / Time ketorolac (From Toradol) Allergy Unknown Hand Verified 11/07/24 10:19 Swelling duloxetine (From Cymbalta) Allergy Skin Rash Verified 11/07/24 10:19 Influenza Virus Vaccines Allergy Swelling/Ed Verified 11/07/24 10:19 tashi metoprolol Allergy Itching Verified 11/07/24 10:19 Penicillins Allergy Swelling/Ed Verified 11/07/24 10:19 tashi phenytoin (From Dilantin) Allergy Hives Verified 11/07/24 10:19 codeine AdvReac Intermediate Other (See Verified 11/07/24 10:19 Comment) naproxen (From Naprosyn) AdvReac Intermediate Swelling/Ed Verified 11/07/24 10:19 tashi amitriptyline AdvReac Mild Skin Rash Verified 11/07/24 10:19 metoclopramide AdvReac Mild Skin Rash Verified 11/07/24 10:19 aspirin AdvReac Nausea Verified 11/07/24 10:19 NSAIDS (Non-Steroidal AdvReac gi bleed Verified 11/07/24 10:19 Anti-Inflamma General Stated Complaint: Abd Prob SIDNEY: 3 Exam Const General: cooperative, healthy appearing, no acute distress and well groomed Resp Effort & Inspection: normal respiratory effort Auscultation: clear to auscultation bilaterally Cardio Rate: regular rate Rhythm: regular rhythm and abnormal rhythm Heart Sounds: S1 normal and S2 normal GI Inspection: normal to inspection Palpation: soft and nontender Auscultation: normal bowel sounds Neuro General: patient alert, patient awake, patient oriented x3, gait normal, moves all extremities, normal light touch, pain and propioception, no focal motor deficits and CN's II-XI intact bilaterally Extrem General: full ROM, no clubbing, no cyanosis and no edema Course Vital Signs Vital signs: Vital Signs Temperature 35.9 C L 02/07/25 00:49 Pulse 72 02/07/25 00:49 Respiratory Rate 18 02/07/25 00:49 Blood Pressure 154/52 H 02/07/25 00:49 Pulse Oximetry 96 02/07/25 00:49 Temperature 35.9 C L 02/07/25 00:49 Temperature Source Oral 02/07/25 00:49 Pulse 72 02/07/25 00:49 Respiratory Rate 18 02/07/25 00:49 Blood Pressure 154/52 H 02/07/25 00:49 Pulse Oximetry 96 02/07/25 00:49 Oxygen Delivery Method Room Air 02/07/25 00:49 Oxygen Flow Rate 0 02/07/25 00:49 Pain Level 3 02/07/25 00:49 Lab/Test Results Lab/Test Results: Laboratory Tests Range/Units 02/07/25 01:20 WBC (4.4-10.8) 10^3/uL 7.64 RBC (3.93-5.22) 10^6/uL 4.19 Hgb (11.2-15.7) g/dL 12.0 Hct (36.0-46.0) % 36.4 MCV (80-95) fL 87 MCH (27.0-33.0) pg 28.6 MCHC (32.0-36.0) % 33.0 RDW (11.7-14.6) % 13.7 Plt Count (130-400) 10^3/uL 338 MPV (8.0-11.0) fL 9.2 Immature Gran % % 0.3 Neutrophils % % 45.5 Lymphocytes % % 43.8 Monocytes % % 7.2 Eosinophils % % 2.5 Basophils % % 0.7 Nucleated RBC % (0.0-0.3) % 0.0 Absolute Neutrophils (1.2-6.7) 10^3/uL 3.48 Absolute Lymphocytes (1.2-3.4) 10^3/uL 3.35 Absolute Monocytes (0.1-0.8) 10^3/uL 0.55 Absolute Eosinophils (0.0-0.7) 10^3/uL 0.19 Absolute Basophils (0.0-0.2) 10^3/uL 0.05 Medical Decision Making The patient was seen and examined. She is in no distress and has normal vital signs here in the emergency room. The patient has no worsening abdominal pain to palpation or referred pain from other quadrants, leading me to think there has unlikely to be a intra-abdominal pathology that is causing peritonitis. The patient's EKG reveals a normal sinus rhythm with reticular response rate of 74 bpm. There are no findings on this tracing over the consistent with myocardial ischemia or pattern. Based on the fact that the patient has had the symptoms for more than 3 weeks, serial troponin should be sufficient to exclude myocardial ischemia as an etiology for her symptoms. There are no respiratory tract symptoms reported, no hypoxia, and no cough, alleviated symptoms there is no primary pulmonary pathology present. Although patient could have a retained stone pancreatitis, I think that these are less likely etiologies for her symptoms. I think it is more likely that the patient is having gastroesophageal reflux disease associated with her recent GI illness. I think it is unlikely that the patient has lower colonic disease such as diverticulitis or colitis present. She likely had some form of gastroenteritis which has now left her with some mild GI inflammatory changes. The patient will have cardiac workup, as well as a CT scan of the abdomen pelvis to screen for any occult significant interval abdominal pathology. If her symptoms improve and no other significant pathology is discovered on workup, patient can likely be discharged home with increased management of gastroesophageal reflux disease. 0500 - Serial troponins are negative for any acute findings, in the setting of constant pain for 3 weeks, this is exclusionary for myocardial ischemia as an etiology. The CT scan was likewise negative for any obvious findings. The patient's lipase level and LFTs were negative for elevations. I will recommend that the patient continue her current oral omeprazole dosing, and add oral Pepcid to this. She can also utilize 30 mL of Mylanta throughout the day or before meals to help improve her symptoms short-term. If symptoms not improving, I have encouraged her to follow-up with her primary care doctor and consider referral to gastroenterology for further management. PFSH All Active Problems (Updated 02/07/25 @ 05:11 by Lopez Cornelius MD) Esophagitis (Acute) Thoracic radiculitis (Acute) Pain in both feet (Acute) Neuropathy (Acute) Lumbar spondylosis (Acute) Cervical spondylosis (Acute) Cervicalgia (Acute) Mechanical low back pain (Acute) Lumbar radiculitis (Acute) Bilateral hip joint arthritis (Acute) Trochanteric bursitis, left hip (Acute) Trochanteric bursitis, right hip (Acute) Wrist arthropathy (Acute) De Quervain's tenosynovitis, left (Acute) Osteoarthritis of carpometacarpal (CMC) joint of left thumb (Acute) Peripheral neuropathy (Acute) Nasal vestibulitis (Acute) Change in voice (Acute) Nasal mucosa dry (Acute) Lumbar post-laminectomy syndrome (Acute) Trochanteric bursitis of both hips (Acute) L HIP--02/11/24 R HIP inj: 01/21/24 Atypical chest pain (Acute) PATRICIA (obstructive sleep apnea) (Chronic) Screening for colon cancer (Acute) Medical History Encounter for cholecystectomy Functional gait abnormality History of depression Itchy skin Glaucoma Hoarseness Edema Cigarette smoker Diverticulitis GERD (gastroesophageal reflux disease) Migraine headache Peripheral neuropathy Gait abnormality Depression Agoraphobia Obesity Hyperlipidemia Herpes stomatitis Somatization disorder Cluster headaches Hip pain Chronic low back pain Sciatica Encounter to discuss test results Pain of left calf Surgical History H/O Spinal surgery History of partial colectomy History of appendectomy Family History Mother Breast cancer FAMILY HX OF BREAST CANCER 1 GENE MUTATION Brother Gout Kidney stones Cancer Son GERD (gastroesophageal reflux disease) Social History Smoking/Tobacco Use Status: Former Tobacco Use Smoking risk assessment performed?: Yes Alcohol Intake: current Alcohol Intake frequency: holidays/special occasions only Alcohol type: wine Drug use: Rarely Substance use type: marijuana Household members: none Number of Children: 1 current occupation: Disabled What is your relationship status?: Panel score (0-1 are the most socially isolated patients): 0 Do you feel safe at home: Yes Do you feel safe in your relationship?: Yes
[2025-02-07 01:58] LABS: Lipase 26 U/L (<78); Troponin I 4 ng/L (<or=51)
[2025-02-07] MEDS: Omnipaque 350 MG/ML 100 ML BTL IJ (02:37)
[2025-02-07] MEDS: Normal Saline Flush 10 ML SYR IVP (02:38)
[2025-02-07] MEDS: Normal Saline - Diluent 50 ML VIAL IJ (02:38)
--- NOTE | 2025-02-07 02:38 | DI.CT_ITS ---
Exam(s) CT ABDOMEN PELVIS W EXAM: CT ABDOMEN PELVIS W CLINICAL HISTORY: upper abdominal pain, bloating, diarrhea x 3 weeks. TECHNIQUE: Imaging Protocol: Axial computed tomography images with coronal and sagittal reformatted images were created and reviewed CONTRAST MATERIAL: Intravenous: Omnipaque-350 100cc Oral: None COMPARISON: CT ABD PELVIS WITH CONTRAST from 09/03/[address] CHEST LUNG CANCER SCREEN from 06/26/2024 FINDINGS: VISUALIZED LUNG BASES: No nodules nor pleural effusions evident. ABDOMEN: There is no ascites. LIVER: There is a subtle area of enhancement in the subcapsular aspect of the anterior left hepatic lobe; benign appearance and may represent a small hemangioma. However, appears more evident than on prior CT scan of 2008 although this may be related to differences in injection bolus timing. No dilat ed intrahepatic ducts. GALLBLADDER/BILIARY: Gallbladder surgically absent. CBD is not dilated. PANCREAS: No evidence of pancreatic mass nor dilatation of the pancreatic duct. SPLEEN: Spleen is not enlarged. No obvious intrasplenic lesions. Splenic and portal veins are patent. ADRENALS: There are no significant adrenal masses. KIDNEYS:No cysts evident. No solid renal masses. No calculi nor hydronephrosis.. ABDOMINAL AORTA: Abdominal aorta is not enlarged. LYMPH NODES:There is no retroperitoneal nor paraaortic adenopathy. ABDOMINAL WALL: No evidence of significant anterior abdominal wall nor inguinal hernia. GI: There is evidence of partial sigmoid resection. No abnormality seen at this level. The colon is not dilated. There is no significant diverticular disease in the colon. PELVIS: GI: Appendix is not seen and may be surgically absent.No evidence of sigmoid diverticulitis. LYMPH NODES: There is no intrapelvic nor inguinal adenopathy. REPRODUCTIVE: Uterus and adnexal regions appear age-appropriate. There is no free fluid in the pelvis. No extraovarian adnexal masses. URINARY BLADDER: No calculi nor obvious masses evident OSSEOUS: No fractures. Disc space narrowing L4-5 and L5-S1 levels and there is mild anterolisthesis L5 upon S1 related to bilateral pars defects at L5 level. There is also multilevel facet arthropathy in the mid-lower lumbar spine. No significant osseous lesions. IMPRESSION: 1. No acute findings in the abdomen and pelvis. 2. There is evidence of previous cholecystectomy and partial sigmoid resection. 3. Other nonacute findings as above Preliminary V rad report was reviewed RADIATION DOSE DELIVERED: 1,373.02mGy.cm Total DLP DATA REPOSITORY: All CT scans at this facility are submitted to the National Radiology Data Registry (NRDR) Dose Index Registry (DIR) with the [employer] ([employer]). RADIATION OPTIMIZATION: All CT scans at this facility use at least one of these dose optimization techniques: automated exposure control; mA and/or kV adjustment per patient size (includes targeted exams where dose is matched to clinical indication); or iterative reconstruction.
[2025-02-07] MEDS: Mylanta Suspension 30 ML CUP PO (02:55)
[2025-02-07] MEDS: Lidocaine 2% Viscous 15 ML CUP PO (02:56)
[2025-02-07 03:00] LABS: Troponin I 5 ng/L (<or=51)
--- NOTE | 2025-02-07 03:06 | DI.VRAD_ITS ---
PROCEDURE INFORMATION: Exam: CT Abdomen And Pelvis With Contrast Exam date and time: 02/07/2025 2:07 AM Age: 60 years old Clinical indication: Bloating and other: Diarrhea; Localized; Prior surgery; Surgery date: 6+ months; Surgery type: Appendectomy; Upper abdominal pain, bloating, diarrhea x 3 weeks TECHNIQUE: Imaging protocol: Computed tomography of the abdomen and pelvis with contrast. Radiation optimization: All CT scans at this facility use at least one of these dose optimization techniques: automated exposure control; mA and/or kV adjustment per patient size (includes targeted exams where dose is matched to clinical indication); or iterative reconstruction. Contrast material: [id number]; Contrast volume: 100 ml; Contrast route: INTRAVENOUS (IV); COMPARISON: No relevant prior studies are available for comparison. FINDINGS: Liver: 3 cm area of increased enhancement in the left hepatic lobe, indeterminate on this examination. Consider follow-up. Gallbladder and biliary ducts: Cholecystectomy. Pancreas: No CT evidence for acute pancreatitis. Spleen: No splenomegaly. Adrenal glands: No mass. Kidneys and ureters: No hydronephrosis or evidence for pyelonephritis. Stomach and bowel: No intestinal obstruction is appreciated. Appendix: No evidence of appendicitis. Intraperitoneal space: No free air. Vasculature: Atherosclerotic changes in the aorta and its branches. Lymph nodes: Nonspecific mesenteric and retroperitoneal lymph nodes. Urinary bladder: No acute findings. Reproductive: No acute findings. 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 Anterolisthesis of L5 on S1. Soft tissues: No pertinent acute abnormality seen. IMPRESSION: 1. No acute findings to explain reported symptoms. 2. Nonacute findings as outlined above. Dictated and Authenticated by: Rona Chilel MD. Orderin Adryan Marroquin MD
== END 2025-02-07 05:19 | disposition home or self-care (01) ==
PROVIDERS: Emergency Provider Emergency Medicine Emergency Medical Services; PCP Nurse Practitioner Family
DX: K20.90 Esophagitis, unspecified without bleeding (principal)
CPT/HCPCS: 99284; 99285; 96374; 96375; 80053; 83690; 93005; 96361; 74177; 83735; 84484; 85025; 93010; J0131; J2405; J2470; J3490